=== PATIENT | female | born 1970 | race Caucasian/White ===

== ENCOUNTER 2017-04-15 16:06 | Emergency (ER) | payer MEDICARE, OTHER ==
[2017-04-15] MEDS ORDERED: NALOXONE HCL INJ 2 MG/2 ML DISP.SYRIN IV ONE (16:20)
[2017-04-15] MEDS ORDERED: NALOXONE HCL INJ 2 MG/2 ML DISP.SYRIN ONE (16:22)
--- NOTE | 2017-04-15 16:23 | ER Document Report ---
ED General - General Stated Complaint: ALTERED MENTAL STATUS/POSSIBLE SEPSIS Time Seen by Provider: 04/15/17 16:13 Mode of Arrival: Ambulatory Information source: Patient Notes: 46 yr old female presents with hx of extensive narcotic use, cva with family concern for confusion. TRAVEL OUTSIDE OF THE [place] IN LAST 30 DAYS: No - HPI Onset: Other Onset/Duration: Intermittent Quality of pain: No pain Severity: Mild Pain Level: Denies Associated symptoms: Leg swelling, Weakness Exacerbated by: Denies Relieved by: Denies Similar symptoms previously: Yes Recently seen / treated by doctor: Yes - Related Data Allergies/Adverse Reactions: Penicillins Allergy (Verified 04/10/16 11:22) Past Medical History - Social History Smoking Status: Current Every Day Smoker Cigarette use (# per day): Yes Chew tobacco use (# tins/day): No Smoking Education Provided: No Family History: Reviewed & Not Pertinent Neurological Medical History: Reports: Hx Cerebrovascular Accident Endocrine Medical History: Reports: Hx Diabetes Mellitus Type 2 GI Medical History: Reports: Hx Gastroesophageal Reflux Disease, Hx Ulcer, Hx Endoscopy Psychiatric Medical History: Reports: Hx Anxiety, Hx Bipolar Disorder, Hx Depression, Hx Schizophrenia Past Surgical History: Reports: Hx Abdominal Surgery - gastric bypass, reversal , Hx Cholecystectomy, Hx Gastric Bypass Surgery, Hx Hysterectomy, Hx Orthopedic Surgery - LLE, left jaw - Immunizations Immunizations up to date: Yes Hx Diphtheria, Pertussis, Tetanus Vaccination: Yes Review of Systems - Review of Systems Notes: REVIEW OF SYSTEMS: CONSTITUTIONAL : Denies fever, chills, or sweats. Denies recent illness. EENT: Right facial edema CARDIOVASCULAR: Denies chest pain. Denies palpitations or racing or irregular heart beat. Denies ankle edema. RESPIRATORY: Denies cough, cold, or chest congestion. Denies shortness of breath, difficulty breathing, or wheezing. GASTROINTESTINAL: Denies abdominal pain or distention. Denies nausea, vomiting , or diarrhea. Denies blood in vomitus, stools, or per rectum. Denies black, tarry stools. Denies constipation. GENITOURINARY: Denies difficulty urinating, painful urination, burning, frequency, blood in urine, or discharge. FEMALE GENITOURINARY: Denies vaginal bleeding, heavy or abnormal periods, irregular periods. Denies vaginal discharge or odor. MUSCULOSKELETAL: Admits to edema of the left foot SKIN: Denies rash, lesions or sores. HEMATOLOGIC : Denies easy bruising or bleeding. LYMPHATIC: Denies swollen, enlarged glands. NEUROLOGICAL: drowsiness PSYCHIATRIC: Denies anxiety or stress. Denies depression, suicidal ideation, or homicidal ideation. ALL OTHER SYSTEMS REVIEWED AND NEGATIVE. Dictation was performed using [employer] voice recognition software PHYSICAL EXAMINATION: GENERAL: Well-appearing, well-nourished and in no acute distress. HEAD: Right facial edema EYES: Pupils equal round and reactive to light, extraocular movements intact, conjunctiva are normal. ENT: Nares patent, oropharynx clear without exudates. Moist mucous membranes. NECK: Normal range of motion, supple without lymphadenopathy LUNGS: Breath sounds clear to auscultation bilaterally and equal. No wheezes rales or rhonchi. HEART: Regular rate and rhythm without murmurs ABDOMEN: Soft, nontender, nondistended abdomen. No guarding, no rebound. No masses appreciated. Female : deferred Musculoskeletal: Normal range of motion, no pitting or edema. No cyanosis. NEUROLOGICAL: Initial GCS of 11 Narcan GCS of 15 PSYCH: Normal mood, normal affect. SKIN: Warm, Dry, normal turgor, no rashes or lesions noted. Physical Exam - Vital signs Vitals: Resp BP Pulse Ox 19 105/70 98 04/15/17 16:21 04/15/17 16:21 04/15/17 16:21 Course - Re-evaluation Re-evalutation: 04/15/17 18:26 Patient immediately alert and oriented after being given 2 mg of Narcan, lab work pending CT noted no acute abnormality 04/15/17 20:49 pt has been alert oriented throughout, doppler pending., hypokaelmia noted, pt given oral potassium 04/15/17 22:31 Doppler was negative patient will be discharged home with potassium supplementation and I have instructed that they speak with her physician regarding the narcotic use After performing a Medical Screening Examination, I estimate there is LOW risk for INTRACRANIAL HEMORRHAGE, ISCHEMIC CVA, MALIGNANT DYSRHYTHMIA, ACUTE CORONARY SYNDROME, MENINGITIS, PULMONARY EMBOLISM, or SEPSIS thus I consider the discharge disposition reasonable. I have reevaluated this patient multiple times and no significant life threatening changes are noted. The patient and I have discussed the diagnosis and risks, and we agree with discharging home with close follow-up with the understanding that symptoms and presentations can change. We also discussed returning to the Emergency Department immediately if new or worsening symptoms occur. We have discussed the symptoms which are most concerning (e.g., changing or worsening pain, weakness, vomiting, fever) that necessitate immediate return. - Vital Signs Vital signs: Temp Pulse Resp BP Pulse Ox 98.9 F 83 14 108/72 99 04/15/17 18:00 04/15/17 18:00 04/15/17 21:01 04/15/17 21:00 04/15/17 19:33 - Laboratory Result Diagrams: 04/15/17 18:50 04/15/17 18:50 Laboratory results interpreted by me: 04/15/17 04/15/17 04/15/17 18:50 18:50 18:50 WBC 12.4 H Hgb 11.4 L Hct 35.7 L RDW 23.0 H Abs Neuts (Manual) 9.8 H PT 16.6 H VBG pH VBG pCO2 VBG HCO3 Sodium 147.5 H Potassium 2.9 L* Chloride 118 H Carbon Dioxide 18 L Glucose 65 L Calcium 7.6 L AST 154 H ALT 151 H Alkaline Phosphatase 176 H NT-Pro-B Natriuret Pep Total Protein 4.3 L Albumin 2.0 L Urine Ketones Urine Urobilinogen 04/15/17 04/15/17 04/15/17 18:50 18:50 19:10 WBC Hgb Hct RDW Abs Neuts (Manual) PT VBG pH 7.44 H VBG pCO2 29.9 L VBG HCO3 19.7 L Sodium Potassium Chloride Carbon Dioxide Glucose Calcium AST ALT Alkaline Phosphatase NT-Pro-B Natriuret Pep 176 H Total Protein Albumin Urine Ketones TRACE H Urine Urobilinogen 2.0 H - Diagnostic Test Radiology reviewed: Image reviewed, Reports reviewed - Doppler was negative Discharge - Discharge Clinical Impression: Hypokalemia, Narcotic drug use Edema Qualifiers: Edema type: unspecified Qualified Code(s): R60.9 - Edema, unspecified Condition: Stable Disposition: HOME, SELF-CARE Instructions: Edema, Peripheral ([facility]) Prescriptions: Potassium Bicarbonate/Cit AC [Potassium 25 Meq Tab Eff] 50 meq PO DAILY #5 tablet.eff Referrals: HILTON MORSE PA-C [Primary Care Provider] - Follow up tomorrow
--- NOTE | 2017-04-15 16:41 | RADIOLOGY REPORT (SQ) ---
EXAM DESCRIPTION: CT HEAD WITHOUT COMPLETED DATE/TIME: 04/15/2017 4:32 pm REASON FOR STUDY: altered COMPARISON: None. TECHNIQUE: Axial images acquired through the brain without intravenous contrast. Images reviewed wi th bone, brain and subdural windows. Images stored on PACS. All CT scanners at this facility use dose modulation, iterative reconstruction, and/or weight based d osing when appropriate to reduce radiation dose to as low as reasonably achievable (ALARA). [facility]: Dose Right [facility]: CareDose [facility]: Dose Right [facility]: Teradose 4D [facility]: [employer] RADIATION DOSE: 64.61 mGy. LIMITATIONS: None. FINDINGS: VENTRICLES: Normal size and contour. CEREBRUM: No masses. No hemorrhage. No midline shift. Normal keen/white matter differentiation. N o evidence for acute infarction. CEREBELLUM: No masses. No hemorrhage. No alteration of density. No evidence for acute infarction. EXTRAAXIAL SPACES: No fluid collections. No masses. ORBITS AND GLOBE: No intra- or extraconal masses. Normal contour of globe without masses. CALVARIUM: No fracture. PARANASAL SINUSES: There is minimal ethmoid air cell disease on the left. SOFT TISSUES: No mass or hematoma. OTHER: No other significant finding. IMPRESSION: NORMAL BRAIN CT WITHOUT CONTRAST. TECHNICAL DOCUMENTATION: JOB ID: [id number] Quality ID # [id number]: Final reports with documentation of one or more dose reduction techniques (e.g., Au tomated exposure control, adjustment of the mA and/or kV according to patient size, use of iterative reconstruction technique) 2010 [employer]- All Rights Reserved
--- NOTE | 2017-04-15 17:45 | RADIOLOGY REPORT (SQ) ---
EXAM DESCRIPTION: CHEST PA/LAT COMPLETED DATE/TIME: 04/15/2017 5:21 pm REASON FOR STUDY: altered, edema COMPARISON: 04/10/2016 EXAM PARAMETERS: NUMBER OF VIEWS: two views TECHNIQUE: Digital Frontal and Lateral radiographic views of the chest acquired. RADIATION DOSE: NA LIMITATIONS: none FINDINGS: LUNGS AND PLEURA: No opacities, masses or pneumothorax. No pleural effusion. MEDIASTINUM AND HILAR STRUCTURES: No masses or contour abnormalities. HEART AND VASCULAR STRUCTURES: Heart normal size. No evidence for failure. BONES: No acute findings. HARDWARE: None in the chest. OTHER: No other significant finding. IMPRESSION: NO SIGNIFICANT RADIOGRAPHIC FINDING IN THE CHEST. TECHNICAL DOCUMENTATION: JOB ID: [id number] [employer]- All Rights Reserved
[2017-04-15 19:09] LABS: VENOUS BLOOD BASE EXCESS -3.7 mmol/L; VENOUS BLOOD HCO3 19.7 mmol/L (20-32); VENOUS BLOOD PCO2 29.9 mmHg (35-63); VENOUS BLOOD PH 7.44 (7.30-7.42)
[2017-04-15 19:17] LABS: HEMATOCRIT 35.7 % (36.0-47.0); HEMOGLOBIN 11.4 g/dL (12.0-15.5); HGB HCT DIFFERENCE -1.5; MEAN CORPUSCULAR HEMOGLOBIN 28.4 pg (27.0-33.4); MEAN CORPUSCULAR VOLUME 89 fl (80-97); RED BLOOD COUNT 4.03 10^6/uL (3.72-5.28); WHITE BLOOD COUNT 12.4 10^3/uL (4.0-10.5)
[2017-04-15 19:20] LABS: PROTHROMBIN TIME 16.6 SEC (11.4-15.4)
[2017-04-15 19:31] LABS: ALANINE AMINOTRANSFERASE 151 U/L (9-52); ALKALINE PHOSPHATASE 176 U/L (38-126); ANION GAP 12 (5-19); ASPARTATE AMINO TRANSFERASE 154 U/L (14-36); BILIRUBIN,DIRECT 0.4 mg/dL (0.0-0.4); BILIRUBIN,TOTAL 0.4 mg/dL (0.2-1.3); BLOOD UREA NITROGEN 10 mg/dL (7-20); CALCIUM 7.6 mg/dL (8.4-10.2); CARBON DIOXIDE 18 mmol/L (22-30); CHLORIDE 118 mmol/L (98-107); CREATININE RESULT 0.66 mg/dL (0.52-1.25); GLUCOSE 65 mg/dL (75-110); SODIUM 147.5 mmol/L (137-145); TOTAL PROTEIN 4.3 g/dL (6.3-8.2)
[2017-04-15 19:41] LABS: BAND NEUTROPHILS % (MANUAL) 4 % (3-5); BASOPHILS % (MANUAL) 0 % (0-2); EOSINOPHILS % (MANUAL) 0 % (0-6); LYMPHOCYTES % (MANUAL) 15 % (13-45); TOTAL CELLS COUNTED 100; TOXIC GRANULATION SLIGHT
[2017-04-15 19:44] LABS: ANISOCYTOSIS 3+; BURR CELLS 1+; OVALOCYTES SLIGHT; POIKILOCYTOSIS 1+; POLYCHROMASIA SLIGHT; TARGET CELLS 1+; TEAR DROP CELLS SLIGHT
[2017-04-15 19:46] LABS: PLATELET CLUMPS PRESENT
[2017-04-15 19:57] LABS: POTASSIUM 2.9 mmol/L (3.6-5.0)
[2017-04-15] MEDS ORDERED: POTASSIUM CHLORIDE 10 MEQ TABLET.SA PO ONE (19:59)
[2017-04-15 20:31] LABS: APPEARANCE,URINE CLEAR; BILIRUBIN,URINE NEGATIVE (NEGATIVE); GLUCOSE, URINE NEGATIVE (NEGATIVE); KETONES,URINE TRACE mg/dL (NEGATIVE); LEUKOCYTE ESTERASE,URINE NEGATIVE (NEGATIVE); NITRITE,URINE NEGATIVE (NEGATIVE); PROTEIN,URINE NEGATIVE (NEGATIVE); URINE SPECIFIC GRAVITY 1.021
--- NOTE | 2017-04-15 21:14 | EKG REPORT ---
SEVERITY:- BORDERLINE ECG - SINUS RHYTHM BORDERLINE LEFT AXIS DEVIATION LOW VOLTAGE THROUGHOUT BORDERLINE T ABNORMALITIES, ANT-LAT LEADS : Confirmed by: Benitez Gabriel 15-Apr-2017 21:14:08
[2017-04-15 22:56] VITALS: BP 107/71
--- NOTE | 2017-04-15 22:57 | RADIOLOGY REPORT (SQ) ---
EXAM DESCRIPTION: VENOUS UNILATERAL LOWER COMPLETED DATE/TIME: 04/15/2017 10:44 pm REASON FOR STUDY: left leg edema COMPARISON: None. TECHNIQUE: Dynamic and static keen scale and color images acquired of the left leg venous system. Se lected spectral images acquired with additional compression and augmentation maneuvers. The contralat eral common femoral vein and saphenofemoral junction were also imaged. Images stored on PACS. LIMITATIONS: None. FINDINGS: COMMON FEMORAL: Normal phasicity, compression and augmentation. No visualized echogenic ma terial on keen scale. No defects on color images. FEMORAL: Normal compression and augmentation. No visualized echogenic material on keen scale. No defe cts on color images. POPLITEAL: Normal compression, augmentation. No visualized echogenic material on keen scale. No defec ts on color images. CALF VESSELS: Normal compression, augmentation. No visualized echogenic material on keen scale. No de fects on color images. GSV and SSV: Normal compression, augmentation. No visualized echogenic material on keen scale. No def ects on color images. ANY DEEP VENOUS INSUFFICIENCY: Not evaluated. ANY EVIDENCE OF POPLITEAL CYST: No. OTHER: No other significant finding. CONTRALATERAL COMMON FEMORAL VEIN AND SAPHENOFEMORAL JUNCTION: Normal phasicity, compression and augmentation. No visualized echogenic material on keen scale. No de fects on color images. IMPRESSION: NO EVIDENCE DVT OR SVT IN THE LEFT LEG. TECHNICAL DOCUMENTATION: JOB ID: [id number] [employer]- All Rights Reserved
== END 2017-04-15 22:55 | disposition home or self-care (01) ==
LOC: ER 16:06
DX: F11.90 Opioid use, unspecified, uncomplicated (principal); R53.1 Weakness; E11.9 Type 2 diabetes mellitus without complications; R60.0 Localized edema; E87.6 Hypokalemia; F17.210 Nicotine dependence, cigarettes, uncomplicated; Z86.73 Personal history of transient ischemic attack (TIA), and cerebral infarction without residual deficits; Z98.84 Bariatric surgery status
CPT/HCPCS: 93005; 99285; 36415; 87040; 87086; 85025; 85610; 87088; 80053; 81001; 87186; 82803; 83605; 83880; 93971; 71020; 70450; 93010; A9270

== ENCOUNTER → 2017-04-24 | Outpatient (CLI) | payer MEDICARE, MEDICAID ==
--- NOTE | 2017-04-24 08:48 | WOMENS IMAGING REPORT ---
EXAM DESCRIPTION: U/S ABDOMEN LIMITED COMPLETED DATE/TIME: 04/24/2017 8:34 am REASON FOR STUDY: RUQ;R79.89 R79.89 OTHER SPECIFIED ABNORMAL FINDINGS OF BLOOD CHEMISTRY COMPARISON: None. TECHNIQUE: Dynamic and static grayscale images acquired of the abdomen and recorded on PACS. Additio nal selected color Doppler and spectral images recorded. LIMITATIONS: None. FINDINGS: PANCREAS: Not visualized due to bowel gas. LIVER: The liver demonstrates increased echogenicity and coarsened echotexture consistent with fatty deposition. No focal liver lesions identified. No hepatomegaly LIVER VASCULATURE: Normal directional flow of the main portal vein and hepatic veins. GALLBLADDER: Surgically absent. ULTRASOUND-DETECTED GILL'S SIGN: Negative. INTRAHEPATIC DUCTS AND COMMON DUCT: The intrahepatic ducts normal caliber. No filling defects. Commo n bile duct measures 9 mm and is ectatic likely related to prior cholecystectomy. INFERIOR VENA CAVA: Not visualized due to bowel gas AORTA: Not visualized due to bowel gas RIGHT KIDNEY: Normal size. Normal echogenicity. No solid or suspicious masses. No hydronephrosis. No calcifications. PERITONEAL AND RIGHT PLEURAL SPACE: No ascites or effusions. OTHER: No other significant findings. IMPRESSION: 1. Hepatic steatosis. No focal liver lesions. 2. Prior cholecystectomy. There is slight ectasia of the common bile duct less likely the related t o the surgery. No intrahepatic biliary dilatation. No evidence choledocholithiasis. 3. Otherwise unremarkable abdominal ultrasound. The pancreas, aorta, and IVC are not visualized on this study due to bowel gas. TECHNICAL DOCUMENTATION: JOB ID: [id number] [employer]- All Rights Reserved
== END ==
LOC: WI 07:51
PROVIDERS: ATTEND Physician Assistant
DX: R79.89 Other specified abnormal findings of blood chemistry (principal); K76.0 Fatty (change of) liver, not elsewhere classified
CPT/HCPCS: 76705

== ENCOUNTER 2017-05-08 07:20 | Inpatient (IN) | payer MEDICARE, MEDICAID ==
[2017-05-08] MEDS ORDERED: ASPIRIN 81 MG TABLET, CHEWABLE PO ONE (07:48)
--- NOTE | 2017-05-08 07:54 | ER Document Report ---
ED Dizziness/Weakness - General Chief Complaint: General Weakness Stated Complaint: WEAKNESS Time Seen by Provider: 05/08/17 07:47 Mode of Arrival: Ambulatory Information source: Patient Notes: Is a 47-year-old female with a history of a stroke, diabetes, hypertension, anxiety, gastric bypass who presents to the ER today for generalized weakness over the past 2 weeks, worsening over the past day. Patient had a cough that has been productive for the past 2-3 days. She also had some worsening swelling in her lower extremities. She and family deny history of congestive heart failure. 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 She has practically been bedbound for the past 2 days per family. She tried to get up this morning and fell, denies hitting her head or loss of consciousness, denies any pain anywhere. She does have some mild right sided deficits from her stroke in 2008. She denies any new unilateral deficits. She denies any nausea , vomiting, diarrhea, fever, chills, dysuria, abdominal pain or other symptoms. Family also states that she has been confused over the past 2 days, and will start "talking out of her head." TRAVEL OUTSIDE OF THE [place] IN LAST 30 DAYS: No - Related Data Allergies/Adverse Reactions: Penicillins Allergy (Verified 04/10/16 11:22) Past Medical History - General Information source: Patient, Relative - Social History Smoking Status: Unknown if Ever Smoked Family History: Reviewed & Not Pertinent Neurological Medical History: Reports: Hx Cerebrovascular Accident Endocrine Medical History: Reports: Hx Diabetes Mellitus Type 2 Renal/ Medical History: Denies: Hx Peritoneal Dialysis GI Medical History: Reports: Hx Gastroesophageal Reflux Disease, Hx Ulcer, Hx Endoscopy Psychiatric Medical History: Reports: Hx Anxiety, Hx Bipolar Disorder, Hx Depression, Hx Schizophrenia Past Surgical History: Reports: Hx Abdominal Surgery - gastric bypass, reversal , Hx Cholecystectomy, Hx Gastric Bypass Surgery, Hx Hysterectomy, Hx Orthopedic Surgery - LLE, left jaw - Immunizations Immunizations up to date: Yes Hx Diphtheria, Pertussis, Tetanus Vaccination: Yes Review of Systems - Review of Systems Constitutional: See HPI EENT: No symptoms reported Cardiovascular: No symptoms reported Respiratory: No symptoms reported Gastrointestinal: No symptoms reported Genitourinary: No symptoms reported Female Genitourinary: No symptoms reported Musculoskeletal: No symptoms reported Skin: No symptoms reported Hematologic/Lymphatic: No symptoms reported Neurological/Psychological: See HPI Physical Exam - Vital signs Vitals: Temp Pulse Resp BP 99.3 F 111 H 18 112/77 05/08/17 07:21 05/08/17 07:21 05/08/17 07:21 05/08/17 07:21 - Notes Notes: PHYSICAL EXAMINATION: GENERAL: Weak, malnourished, appears much older than stated age, in no acute distress. HEAD: Atraumatic, normocephalic. EYES: Pupils equal round and reactive to light, extraocular movements intact, sclera anicteric, conjunctiva are normal. NECK: Normal range of motion, supple without lymphadenopathy LUNGS: CTAB and equal. No wheezes rales or rhonchi. HEART: Regular rate and rhythm without murmurs ABDOMEN: Nontender, no guarding, no rebound EXTREMITIES: Decreased rfid manager strength bilaterally but equal, decreased strength bilaterally NEUROLOGICAL: Cranial nerves grossly intact. Generalized weakness but normal sensory exam Kernig and Brudzinski's signs negative PSYCH: flat affect SKIN: Warm, Dry, normal turgor, 2+ pitting edema bilateral lower extremities, tender Course - Re-evaluation Re-evalutation: 05/08/17 11:59 White blood cell count is normal, patient has a low protein, albumin, calcium, but corrected for albumin, calcium is actually normal. EKG reveals a normal sinus rhythm at a rate of 97 bpm. Patient was very anxious when I told her that I needed to do a CT of her head so I gave her 1 of her normal doses of Ativan which calmed her down. Patient does look much older than 47 years old and generally weak, unsure if this is malnourishment from gastric bypass and the fact that she is not eating per her family or some other pathology. It does not seem like it is any type of infection with a normal white count afebrile, patient is not septic, CT of the head reveals no acute abnormality, chest x-ray reveals no acute abnormality, patient does have an elevated BNP at 335. I did speak with patient's primary care provider, Hilton flores who states that she usually is independent and that being bedbound is absolutely not like this patient. She was concerned that this is malnutrition or another stroke. I have low suspicion for another stroke as patient does not have any new unilateral symptoms, more generalized. Dr. Nichols, hospitalist agreed to admit patient for observation at this time. 05/08/17 12:02 05/08/17 12:08 - Vital Signs Vital signs: Temp Pulse Resp BP Pulse Ox 99.3 F 111 H 10 L 103/76 05/08/17 07:21 05/08/17 07:21 05/08/17 09:01 05/08/17 09:01 - Laboratory Result Diagrams: 05/08/17 10:20 05/08/17 08:52 Laboratory results interpreted by me: 05/08/17 05/08/17 05/08/17 08:52 08:52 09:50 RBC Hgb Hct MCV MCHC RDW Seg Neuts % (Manual) Lymphocytes % (Manual) Abs Neuts (Manual) Chloride 114 H Calcium 7.6 L Direct Bilirubin 0.7 H ALT 53 H Alkaline Phosphatase 279 H NT-Pro-B Natriuret Pep 335 H Total Protein 4.9 L Albumin 1.9 L Urine Urobilinogen 4.0 H Ur Leukocyte Esterase TRACE H 05/08/17 10:20 RBC 3.37 L Hgb 10.7 L Hct 33.9 L MCV 101 H D MCHC 31.4 L RDW 16.6 H Seg Neuts % (Manual) 86 H Lymphocytes % (Manual) 8 L Abs Neuts (Manual) 8.9 H Chloride Calcium Direct Bilirubin ALT Alkaline Phosphatase NT-Pro-B Natriuret Pep Total Protein Albumin Urine Urobilinogen Ur Leukocyte Esterase Discharge - Discharge Clinical Impression: Generalized weakness Altered mental status Qualifiers: Altered mental status type: transient alteration of awareness Qualified Code(s) : R40.4 - Transient alteration of awareness Condition: Stable Disposition: ADMITTED OBSERVATION Admitting Provider: Hospitalist Unit Admitted: Telemetry Referrals: HILTON FLORES PA-C [Primary Care Provider] - Follow up as needed
--- NOTE | 2017-05-08 08:35 | RADIOLOGY REPORT (SQ) ---
EXAM DESCRIPTION: CHEST SINGLE VIEW COMPLETED DATE/TIME: 05/08/2017 8:08 am REASON FOR STUDY: weakness COMPARISON: 04/15/2017 EXAM PARAMETERS: NUMBER OF VIEWS: One view. TECHNIQUE: Single frontal radiographic view of the chest acquired. RADIATION DOSE: NA LIMITATIONS: None. FINDINGS: LUNGS AND PLEURA: No opacities, masses or pneumothorax. No pleural effusion. MEDIASTINUM AND HILAR STRUCTURES: No masses. Contour normal. HEART AND VASCULAR STRUCTURES: Heart normal in size. Normal vasculature. BONES: No acute findings. HARDWARE: None in the chest. OTHER: No other significant finding. IMPRESSION: NO ACUTE RADIOGRAPHIC FINDING IN THE CHEST. TECHNICAL DOCUMENTATION: JOB ID: [id number]
[2017-05-08 09:36] LABS: ALANINE AMINOTRANSFERASE 53 U/L (9-52); ALBUMIN 1.9 g/dL (3.5-5.0); ALKALINE PHOSPHATASE 279 U/L (38-126); ANION GAP 7 (5-19); ASPARTATE AMINO TRANSFERASE 34 U/L (14-36); BILIRUBIN,DIRECT 0.7 mg/dL (0.0-0.4); BILIRUBIN,TOTAL 1.2 mg/dL (0.2-1.3); BLOOD UREA NITROGEN 13 mg/dL (7-20); CALCIUM 7.6 mg/dL (8.4-10.2); CARBON DIOXIDE 22 mmol/L (22-30); CHLORIDE 114 mmol/L (98-107); CREATINE KINASE 30 U/L (30-135); CREATININE RESULT 0.68 mg/dL (0.52-1.25); GLUCOSE 93 mg/dL (75-110); POTASSIUM 3.6 mmol/L (3.6-5.0); TOTAL PROTEIN 4.9 g/dL (6.3-8.2)
[2017-05-08 09:48] LABS: CREATINE KINASE MB 0.29 ng/mL (<4.55); TROPONIN I < 0.012 ng/mL
[2017-05-08] MEDS ORDERED: LORAZEPAM 1 MG TABLET PO ONE (09:56)
[2017-05-08 10:32] LABS: APPEARANCE,URINE CLEAR; BILIRUBIN,URINE NEGATIVE (NEGATIVE); GLUCOSE, URINE NEGATIVE (NEGATIVE); KETONES,URINE NEGATIVE (NEGATIVE); LEUKOCYTE ESTERASE,URINE TRACE (NEGATIVE); NITRITE,URINE NEGATIVE (NEGATIVE); PROTEIN,URINE NEGATIVE (NEGATIVE); URINE SPECIFIC GRAVITY 1.015
[2017-05-08 10:46] LABS: HEMATOCRIT 33.9 % (36.0-47.0); HEMOGLOBIN 10.7 g/dL (12.0-15.5); HGB HCT DIFFERENCE -1.8; MEAN CORPUSCULAR HEMOGLOBIN 31.6 pg (27.0-33.4); MEAN CORPUSCULAR HGB CONC 31.4 g/dL (32.0-36.0); RED BLOOD COUNT 3.37 10^6/uL (3.72-5.28); RED CELL DISTRIBUTION WIDTH 16.6 % (11.5-14.0); WHITE BLOOD COUNT 10.3 10^3/uL (4.0-10.5)
[2017-05-08 10:47] LABS: URINE BARBITURATES SCREEN NEGATIVE; URINE METHADONE SCREEN NEGATIVE; URINE OPIATES LOW UNCONFIRMED POSITIVE; URINE PHENCYCLIDINE SCREEN NEGATIVE
[2017-05-08 11:02] LABS: MEAN CORPUSCULAR VOLUME 101 fl (80-97)
--- NOTE | 2017-05-08 11:02 | RADIOLOGY REPORT (SQ) ---
EXAM DESCRIPTION: CT HEAD WITHOUT COMPLETED DATE/TIME: 05/08/2017 10:48 am REASON FOR STUDY: new significant weakness past 2 weeks , hx cva, COMPARISON: None. TECHNIQUE: Axial images acquired through the brain without intravenous contrast. Images reviewed wi th bone, brain and subdural windows. Images stored on PACS. All CT scanners at this facility use dose modulation, iterative reconstruction, and/or weight based d osing when appropriate to reduce radiation dose to as low as reasonably achievable (ALARA). [facility]: Dose Right [facility]: CareDose [facility]: Dose Right [facility]: Teradose 4D [facility]: [employer] RADIATION DOSE: Up-to-date CT equipment and radiation dose reduction techniques were employed. CTDIv ol: 64.6 mGy. DLP: 1034 mGy-cm. mGy. LIMITATIONS: None. FINDINGS: VENTRICLES: Normal size and contour. CEREBRUM: No masses. No hemorrhage. No midline shift. Normal keen/white matter differentiation. N o evidence for acute infarction. CEREBELLUM: No masses. No hemorrhage. No alteration of density. No evidence for acute infarction. EXTRAAXIAL SPACES: No fluid collections. No masses. ORBITS AND GLOBE: No intra- or extraconal masses. Normal contour of globe without masses. CALVARIUM: No fracture. PARANASAL SINUSES: Air-fluid levels are present in both maxillary sinuses. Many of the ethmoid air c ells are opacified. SOFT TISSUES: No mass or hematoma. OTHER: No other significant finding. IMPRESSION: Maxillary and ethmoid sinus disease with no acute intracranial pathology. TECHNICAL DOCUMENTATION: JOB ID: [id number] Quality ID # [id number]: Final reports with documentation of one or more dose reduction techniques (e.g., Au tomated exposure control, adjustment of the mA and/or kV according to patient size, use of iterative reconstruction technique) 2010 [employer]- All Rights Reserved
[2017-05-08 11:07] LABS: BASOPHILS % (MANUAL) 0 % (0-2); EOSINOPHILS % (MANUAL) 0 % (0-6); LYMPHOCYTES % (MANUAL) 8 % (13-45); PLATELET CLUMPS PRESENT; TOTAL CELLS COUNTED 100; TOXIC GRANULATION 1+
[2017-05-08 11:08] LABS: ANISOCYTOSIS 2+; HYPOCHROMASIA 1+; POLYCHROMASIA SLIGHT
[2017-05-08] MEDS ORDERED: NORMAL SALINE 1000 ML 1,000 ML IV ONE (11:31)
[2017-05-08 11:44] LABS: PROTHROMBIN TIME 12.2 SEC (11.4-15.4)
[2017-05-08 11:45] LABS: PARTIAL THROMBOPLASTIN TIME 32.8 SEC (23.5-35.8)
[2017-05-08] MEDS ORDERED: ACETAMINOPHEN 325 MG TABLET PO PRN (15:11)
[2017-05-08] MEDS ORDERED: ONDANSETRON HCL INJ/PF 4 MG/2 ML SDV IV PRN (15:11)
--- NOTE | 2017-05-08 15:38 | PDOC H&P ---
History of Present Illness Admission Date/PCP: 05/08/17 11:44 HILTON MORSE PA-C Patient complains of: Generalized weakness History of Present Illness: HILTON MI is a 47 year old female, with prior history of stroke with residual right-sided weakness, was brought to the emergency room because of generalized weakness. The patient has been noted to have progressive weakness for the past month or so. The patient has poor appetite. Patient was seen by her primary care physician on several occasions. There is no reported chills or fever, diarrhea, dysuria urgency or frequency, vaginal discharge. Patient started to feel short of breath on exertion with associated dizziness on standing up recently. Patient for the past 4 days was also noted to be having some coughing. He started to develop pleuritic pain on the right from coughing. She feels cold all the time. She was likewise noted to have increasing lower extremity edema. No paroxysmal nocturnal dyspnea nor any orthopnea. Likewise there is no chest pain. Patient has a history of stroke in the past with residual right-sided weakness. Patient is able to eat but just do not have appetite. She has intermittent nausea and occasional vomiting after eating. She takes narcotics for pain. Past Medical History Past Medical History: Medication reconciliation pending verification from the patient's pharmacist Cardiac Medical History: Reports: Hypertension Neurological Medical History: Reports: Ischemic CVA Endocrine Medical History: Reports: Diabetes Mellitus Type 2 GI Medical History: Reports: Gastroesophageal Reflux Disease Psychiatric Medical History: Reports: Bipolar Disorder, Depression, General Anxiety Disorder Hematology: Reports: Anemia Past Surgical History Past Surgical History: Reports: Cholecystectomy, Gastric Bypass Surgery, Hysterectomy, Orthopedic Surgery - LLE, left jaw Social History Information Source: Relative Smoking Status: Never Smoker Frequency of Alcohol Use: None Hx Recreational Drug Use: No Drugs: None Hx Prescription Drug Abuse: No - Advance Directive Resuscitation Status: Full Code Family History Family History: DM, Hypertension Parental Family History Reviewed: Yes Children Family History Reviewed: Yes Sibling(s) Family History Reviewed.: Yes Medication/Allergy Allergies/Adverse Reactions: Penicillins Allergy (Verified 04/10/16 11:22) Review of Systems Constitutional: PRESENT: chills, weight loss - unquantified. ABSENT: fever(s), headache(s), night sweats, weight gain Eyes: ABSENT: visual disturbances Ears: ABSENT: hearing changes Nose, Mouth, and Throat: ABSENT: mouth pain, sore throat Cardiovascular: PRESENT: dyspnea on exertion, edema. ABSENT: chest pain, orthropnea, palpitations Respiratory: PRESENT: cough. ABSENT: dyspnea, hemoptysis, sputum Gastrointestinal: PRESENT: constipation, nausea, vomiting. ABSENT: abdominal pain, diarrhea, hematemesis, hematochezia, melena Genitourinary: ABSENT: difficulty urinating, dysuria, hematuria Musculoskeletal: ABSENT: joint swelling Integumentary: ABSENT: pruritus, rash, wounds Neurological: PRESENT: dizziness. ABSENT: abnormal gait, abnormal speech, confusion, focal weakness, syncope Psychiatric: ABSENT: anxiety, depression, homidical ideation, suicidal ideation Endocrine: ABSENT: cold intolerance, heat intolerance, polydipsia, polyuria Hematologic/Lymphatic: ABSENT: easy bleeding, easy bruising Physical Exam Vital Signs: Temp Pulse Resp BP Pulse Ox 99.0 F 92 18 100/66 98 05/08/17 14:30 05/08/17 14:30 05/08/17 14:30 05/08/17 14:30 05/08/17 14:30 Intake & Output 05/07/17 05/08/17 05/09/17 06:59 06:59 06:59 Weight 54.6 kg General appearance: PRESENT: no acute distress, cooperative Head exam: PRESENT: atraumatic, normocephalic Eye exam: PRESENT: conjunctiva pale, EOMI, PERRLA. ABSENT: scleral icterus Ear exam: PRESENT: normal external ear exam. ABSENT: drainage Mouth exam: PRESENT: dry mucosa, neck supple, tongue midline Throat exam: ABSENT: post pharyngeal erythema, tonsillar erythema Neck exam: ABSENT: carotid bruit, JVD, lymphadenopathy, meningismus, tenderness , thyromegaly Respiratory exam: PRESENT: clear to auscultation rona. ABSENT: rales, rhonchi, wheezes Cardiovascular exam: PRESENT: RRR. ABSENT: diastolic murmur, rubs, systolic murmur Pulses: PRESENT: normal dorsalis pedis pul Vascular exam: PRESENT: normal capillary refill GI/Abdominal exam: PRESENT: normal bowel sounds, soft. ABSENT: distended, guarding, mass, organolmegaly, rebound, tenderness Rectal exam: PRESENT: deferred Extremities exam: PRESENT: +1 edema - Bilateral. ABSENT: calf tenderness, clubbing Neurological exam: PRESENT: alert, awake, oriented to situation, other - Shallow left nasolabial fold, tongue is midline, uvula is midline, extraocular muscle movements are intact.. ABSENT: motor sensory deficit Psychiatric exam: PRESENT: appropriate affect, normal mood. ABSENT: homicidal ideation, suicidal ideation Skin exam: PRESENT: dry, intact, warm. ABSENT: cyanosis, rash Results Impressions: Chest X-Ray 05/08/17 07:48 IMPRESSION: NO ACUTE RADIOGRAPHIC FINDING IN THE CHEST. Head CT 05/08/17 09:26 IMPRESSION: Maxillary and ethmoid sinus disease with no acute intracranial pathology. Assessment & Plan - Diagnosis (1) Altered mental status Qualifiers: Altered mental status type: transient alteration of awareness Qualified Code(s): R40.4 - Transient alteration of awareness Is this a current diagnosis for this admission?: Yes (2) Generalized weakness Is this a current diagnosis for this admission?: Yes (3) Hypotension (arterial) Qualifiers: Hypotension type: unspecified hypotension type Qualified Code(s): I95.9 - Hypotension, unspecified Is this a current diagnosis for this admission?: Yes (4) Acute sinusitis Qualifiers: Recurrence: not specified as recurrent Is this a current diagnosis for this admission?: Yes (5) Abnormal urinalysis Is this a current diagnosis for this admission?: Yes (6) Chronic anemia Is this a current diagnosis for this admission?: Yes (7) Essential hypertension Is this a current diagnosis for this admission?: Yes (8) GERD (gastroesophageal reflux disease) Qualifiers: Esophagitis presence: without esophagitis Qualified Code(s): K21.9 - Gastro-esophageal reflux disease without esophagitis Is this a current diagnosis for this admission?: Yes (9) Anxiety and depression Is this a current diagnosis for this admission?: Yes (10) Diabetes mellitus type 2 in obese Is this a current diagnosis for this admission?: Yes (11) History of stroke Is this a current diagnosis for this admission?: Yes - Time Time Spent: 50 to 70 Minutes - Plan Summary Plan Summary: The patient will be admitted to observation. We will hydrate the patient with normal saline and check lower extremity Doppler for edema. We will obtain MRI of the brain. We will begin diet. Check a KUB for impaction. We will obtain free T4 as well as TSH. We will culture the urine and empirically begin the patient on antibiotic with Levaquin. DVT prophylaxis with Lovenox will be placed. Further testing depends on the initial evaluations outlined above.
[2017-05-08] MEDS ORDERED: LORAZEPAM INJ 2 MG/1 ML VIAL IV PRN (16:45)
[2017-05-08] MEDS: NORMAL SALINE 1000 ML 1,000 ML IV PRN (17:29)
[2017-05-08] MEDS: LANSOPRAZOLE 30 MG TAB.RAP.DR PO SCH (17:29)
--- NOTE | 2017-05-08 18:51 | RADIOLOGY REPORT (SQ) ---
EXAM DESCRIPTION: MRI HEAD WITHOUT COMPLETED DATE/TIME: 05/08/2017 6:38 pm REASON FOR STUDY: confusion, weakness R60.9 EDEMA, UNSPECIFIED N30.00 ACUTE CYSTITIS WITHOUT HEMAT URIA COMPARISON: 08/18/2015. CT dated 05/08/2017 TECHNIQUE: Multiplanar imaging includes non-contrasted T1, T2, FLAIR, and diffusion with ADC map seq uences. Images stored on PACS. LIMITATIONS: None. FINDINGS: ANATOMY: No anomalies. Normal vascular flow voids. Pituitary fossa normal. CSF SPACES: Normal in size and contour. No hemorrhage. CEREBRUM: Sulci and gyri normal in size and contour. Normal white matter signal on FLAIR imaging. No evidence of hemorrhage, mass, or extraaxial fluid collection. POSTERIOR FOSSA: No signal alteration. No hemorrhage. No edema, masses or mass effect. Internal haroon tory canals, cerebello-pontine angles, mastoids normal. DIFFUSION IMAGING: Negative for acute or sub-acute infarction. ORBITS: No masses. Globes normal. PARANASAL SINUSES: Air-fluid levels noted in the ethmoid, sphenoid, and maxillary sinuses, similar t o prior CT. OTHER: No other significant finding. IMPRESSION: No acute intracranial abnormality identified. Air-fluid levels noted in the paranasal s inuses, similar to the CT suggestive of sinusitis. TECHNICAL DOCUMENTATION: JOB ID: [id number] [employer]- All Rights Reserved
--- NOTE | 2017-05-08 19:13 | RADIOLOGY REPORT (SQ) ---
EXAM DESCRIPTION: KUB/ABDOMEN (SINGLE VIEW) COMPLETED DATE/TIME: 05/08/2017 6:56 pm REASON FOR STUDY: fecal impaction, constipation R60.9 EDEMA, UNSPECIFIED N30.00 ACUTE CYSTITIS WIT HOUT HEMATURIA COMPARISON: 07/11/2015 NUMBER OF VIEWS: One view. TECHNIQUE: Supine radiographic image of the abdomen acquired. LIMITATIONS: None. FINDINGS: BOWEL GAS PATTERN: Normal bowel gas pattern. No dilated loops. CONSTIPATION: moderate CALCIFICATIONS: No suspicious calcifications. SOFT TISSUES: No gross mass or suggestion of organomegaly. HARDWARE: Multiple surgical clips. BONES: No acute fracture. No worrisome bone lesions. OTHER: No other significant finding. IMPRESSION: NO RADIOGRAPHIC EVIDENCE FOR ACUTE ABDOMINAL DISEASE. Moderate constipation. TECHNICAL DOCUMENTATION: JOB ID: [id number] [employer]- All Rights Reserved
[2017-05-08 20:49] LABS: FOLATE 12.7 ng/mL (>2.76)
--- NOTE | 2017-05-08 21:24 | EKG REPORT ---
SEVERITY:- BORDERLINE ECG - SINUS RHYTHM LOW VOLTAGE IN FRONTAL LEADS BORDERLINE R WAVE PROGRESSION, ANTERIOR LEADS BORDERLINE T ABNORMALITIES, ANT-LAT LEADS : Confirmed by: Benitez Gabriel 08-May-2017 21:23:42
[2017-05-09] MEDS: NORMAL SALINE 1000 ML 1,000 ML IV PRN ×2 (03:47→09:10)
[2017-05-09] MEDS: LANSOPRAZOLE 30 MG TAB.RAP.DR PO SCH ×2 (05:22→15:36)
[2017-05-09 07:30] LABS: HEMATOCRIT 32.2 % (36.0-47.0); HEMOGLOBIN 10.4 g/dL (12.0-15.5); MEAN CORPUSCULAR HEMOGLOBIN 32.1 pg (27.0-33.4); MEAN CORPUSCULAR HGB CONC 32.1 g/dL (32.0-36.0); MEAN CORPUSCULAR VOLUME 100 fl (80-97); RED BLOOD COUNT 3.22 10^6/uL (3.72-5.28); RED CELL DISTRIBUTION WIDTH 16.3 % (11.5-14.0); WHITE BLOOD COUNT 6.5 10^3/uL (4.0-10.5)
[2017-05-09 07:37] LABS: BLOOD UREA NITROGEN 13 mg/dL (7-20); CHLORIDE 118 mmol/L (98-107); CREATININE RESULT 0.51 mg/dL (0.52-1.25); GLUCOSE 70 mg/dL (75-110); MAGNESIUM 1.9 mg/dL (1.6-2.3); PHOSPHORUS 3.1 mg/dL (2.5-4.5); POTASSIUM 3.2 mmol/L (3.6-5.0)
[2017-05-09 07:53] LABS: ANION GAP 6 (5-19); CARBON DIOXIDE 22 mmol/L (22-30); SODIUM 145.7 mmol/L (137-145)
[2017-05-09 08:03] LABS: CALCIUM 6.8 mg/dL (8.4-10.2)
--- NOTE | 2017-05-09 08:35 | PDOC PROGRESS REPORT ---
Subjective Progress Note for:: 05/09/17 Subjective:: Patient feels better this morning. No reported respiratory distress or temperature spikes. Denies PND orthopnea. Still with some cough. Lower extremity edema about the same. Generalized body malaise significantly improved. Nausea resolved. No vomiting reported. Able to tolerate oral intake. Physical Exam Vital Signs: Temp Pulse Resp BP Pulse Ox 98.8 F 80 21 H 107/67 99 05/09/17 07:42 05/09/17 07:42 05/09/17 07:42 05/09/17 07:42 05/09/17 07:42 Intake & Output 05/08/17 05/09/17 05/10/17 06:59 06:59 06:59 Intake Total 2265 Output Total 600 Balance 1665 Weight 55.2 kg General appearance: PRESENT: no acute distress, cooperative Head exam: PRESENT: normocephalic Eye exam: PRESENT: EOMI Mouth exam: PRESENT: moist, neck supple Neck exam: ABSENT: JVD Respiratory exam: PRESENT: clear to auscultation rona. ABSENT: rhonchi, wheezes Cardiovascular exam: PRESENT: RRR. ABSENT: gallop GI/Abdominal exam: PRESENT: hypoactive bowel sounds, soft. ABSENT: distended, tenderness Extremities exam: PRESENT: +1 edema Neurological exam: PRESENT: alert, awake, oriented to situation Skin exam: PRESENT: dry, warm. ABSENT: cyanosis Results Laboratory Results: 05/09/17 07:09 05/09/17 07:09 05/08/17 05/08/17 05/09/17 15:57 15:57 07:09 WBC 6.5 RBC 3.22 L Hgb 10.4 L Hct 32.2 L MCV 100 H MCH 32.1 MCHC 32.1 RDW 16.3 H Plt Count 280 Sodium Potassium Chloride Carbon Dioxide Anion Gap BUN Creatinine Est GFR ( Amer) Est GFR (Non-Af Amer) Glucose Calcium Phosphorus Magnesium Vitamin B12 972.0 H Folate 12.70 TSH Free T4 0.86 05/09/17 05/09/17 07:09 07:09 WBC RBC Hgb Hct MCV MCH MCHC RDW Plt Count Sodium 145.7 H Potassium 3.2 L Chloride 118 H Carbon Dioxide 22 Anion Gap 6 BUN 13 Creatinine 0.51 L Est GFR ( Amer) > 60 Est GFR (Non-Af Amer) > 60 Glucose 70 L Calcium 6.8 L* Phosphorus 3.1 Magnesium 1.9 Vitamin B12 Folate TSH 2.08 Free T4 Impressions: Head MRI 05/08/17 00:00 IMPRESSION: No acute intracranial abnormality identified. Air-fluid levels noted in the paranasal sinuses, similar to the CT suggestive of sinusitis. KUB X-Ray 05/08/17 00:00 IMPRESSION: NO RADIOGRAPHIC EVIDENCE FOR ACUTE ABDOMINAL DISEASE. Moderate constipation. Chest X-Ray 05/08/17 07:48 IMPRESSION: NO ACUTE RADIOGRAPHIC FINDING IN THE CHEST. Head CT 05/08/17 09:26 IMPRESSION: Maxillary and ethmoid sinus disease with no acute intracranial pathology. Assessment & Plan - Diagnosis (1) Altered mental status Qualifiers: Altered mental status type: transient alteration of awareness Qualified Code(s): R40.4 - Transient alteration of awareness Is this a current diagnosis for this admission?: Yes (2) Generalized weakness Is this a current diagnosis for this admission?: Yes (3) Hypotension (arterial) Qualifiers: Hypotension type: unspecified hypotension type Qualified Code(s): I95.9 - Hypotension, unspecified Is this a current diagnosis for this admission?: Yes (4) Acute sinusitis Qualifiers: Recurrence: not specified as recurrent Is this a current diagnosis for this admission?: Yes (5) Abnormal urinalysis Is this a current diagnosis for this admission?: Yes (6) Chronic anemia Is this a current diagnosis for this admission?: Yes (7) Essential hypertension Is this a current diagnosis for this admission?: Yes (8) GERD (gastroesophageal reflux disease) Qualifiers: Esophagitis presence: without esophagitis Qualified Code(s): K21.9 - Gastro-esophageal reflux disease without esophagitis Is this a current diagnosis for this admission?: Yes (9) Anxiety and depression Is this a current diagnosis for this admission?: Yes (10) Diabetes mellitus type 2 in obese Is this a current diagnosis for this admission?: Yes (11) History of stroke Is this a current diagnosis for this admission?: Yes - Time Time Spent with patient: 25-34 minutes - Plan Summary Plan Summary: Begin physical therapy. Check ionized calcium. Decrease IV fluids. Recheck electrolytes in the morning. Awaiting results of lower extremity Doppler. We will begin DENICE hose as well. Continue antibiotics for now. Follow cultures. Obtain a chest x-ray for cough.
[2017-05-09] MEDS: TOPIRAMATE 25 MG TABLET PO SCH ×2 (09:09→21:07)
[2017-05-09] MEDS: LEVOFLOXACIN 750 MG/D5W RTU 150 ML IV SCH (09:09)
[2017-05-09] MEDS: ASPIRIN 81 MG TABLET, CHEWABLE PO SCH (09:09)
[2017-05-09] MEDS: ENOXAPARIN SODIUM INJ 40 MG/0.4 ML DISP.SYRIN SUBCUT SCH (09:09)
[2017-05-09] MEDS: ONDANSETRON HCL INJ/PF 4 MG/2 ML SDV IV PRN (09:15)
[2017-05-09] MEDS ORDERED: (PENDING PHARMACY ID) (Topiramate [Topiramate] 50 MG) PO SCH (10:00)
[2017-05-09] MEDS: GABAPENTIN 300 MG CAPSULE PO SCH ×2 (15:35→21:09)
--- NOTE | 2017-05-09 16:40 | RADIOLOGY REPORT (SQ) ---
EXAM DESCRIPTION: VENOUS BILATERAL LOWER COMPLETED DATE/TIME: 05/09/2017 4:06 pm REASON FOR STUDY: edema, leg pain, DVT R60.9 EDEMA, UNSPECIFIED N30.00 ACUTE CYSTITIS WITHOUT TITUS TURIA E83.51 HYPOCALCEMIA COMPARISON: None. TECHNIQUE: Dynamic and static keen scale and color images acquired of both lower extremity venous sy stems. Selected spectral images acquired with additional compression and augmentation maneuvers. Imag es stored on PACS. LIMITATIONS: None. FINDINGS: RIGHT LEG COMMON FEMORAL AND FEMORAL: Continuous flow no significant phasic flow in the common femoral vein. N ormal compression. No visualized echogenic material on keen scale. No defects on color images. POPLITEAL: Normal compression and augmentation. No visualized echogenic material on keen scale. No de fects on color images. CALF VESSELS: Normal compression and augmentation. No visualized echogenic material on keen scale. No defects on color image. GSV AND SSV: Normal compression. No visualized echogenic material on keen scale. No defects on color images. ANY DEEP VENOUS INSUFFICIENCY: Not evaluated. ANY EVIDENCE OF POPLITEAL CYST: No. OTHER: No other significant finding. LEFT LEG COMMON FEMORAL AND FEMORAL: Normal phasicity, compression and augmentation. No visualized echogenic m aterial on keen scale. No defects on color images. POPLITEAL: Normal compression and augmentation. No visualized echogenic material on keen scale. No de fects on color images. CALF VESSELS: Normal compression and augmentation. No visualized echogenic material on keen scale. No defects on color images. GSV AND SSV: Normal compression. No visualized echogenic material on keen scale. No defects on color images. ANY DEEP VENOUS INSUFFICIENCY: Not evaluated. ANY EVIDENCE POPLITEAL CYST: No. OTHER: No other significant finding. IMPRESSION: Loss of normal phasic waveforms within the left common femoral vein which can be a sign of iliac vein occlusion or external compression. No SVT or DVT identified. TECHNICAL DOCUMENTATION: JOB ID: [id number] [employer]- All Rights Reserved
[2017-05-09] MEDS: METRONIDAZOLE 500 MG TABLET PO SCH (21:07)
[2017-05-10] MEDS: METRONIDAZOLE 500 MG TABLET PO SCH ×3 (05:17→21:25)
[2017-05-10] MEDS: GABAPENTIN 300 MG CAPSULE PO SCH ×3 (05:17→21:25)
[2017-05-10] MEDS: LANSOPRAZOLE 30 MG TAB.RAP.DR PO SCH ×2 (05:17→18:14)
[2017-05-10] MEDS: NORMAL SALINE 1000 ML 1,000 ML IV PRN (05:19)
[2017-05-10 05:52] LABS: BLOOD UREA NITROGEN 12 mg/dL (7-20); CARBON DIOXIDE 21 mmol/L (22-30); CHLORIDE 117 mmol/L (98-107); CREATININE RESULT 0.47 mg/dL (0.52-1.25); GLUCOSE 73 mg/dL (75-110); POTASSIUM 3.2 mmol/L (3.6-5.0)
[2017-05-10 06:01] LABS: SODIUM 141.3 mmol/L (137-145)
[2017-05-10 06:07] LABS: ANION GAP 3 (5-19)
[2017-05-10 06:08] LABS: CALCIUM 6.4 mg/dL (8.4-10.2)
[2017-05-10 07:41] LABS: ADD ON TESTING BLD IN LAB ACKNOWLEDGE
[2017-05-10 08:20] LABS: ALBUMIN 1.4 g/dL (3.5-5.0)
[2017-05-10] MEDS: ASPIRIN 81 MG TABLET, CHEWABLE PO SCH (10:12)
[2017-05-10] MEDS: LEVOFLOXACIN 750 MG/D5W RTU 150 ML IV SCH (10:13)
[2017-05-10] MEDS: TOPIRAMATE 25 MG TABLET PO SCH ×2 (10:14→21:24)
[2017-05-10] MEDS ORDERED: NORMAL SALINE 1000 ML 1,000 ML IV PRN (10:53)
[2017-05-10] MEDS: ENOXAPARIN SODIUM INJ 40 MG/0.4 ML DISP.SYRIN SUBCUT SCH (10:57)
--- NOTE | 2017-05-10 11:02 | PDOC PROGRESS REPORT ---
Subjective Progress Note for:: 05/10/17 Subjective:: Continues to feel better but less. No reported respiratory distress or temperature spikes. Denies PND orthopnea. Still with some cough. Still lightheaded at times. Lower extremity edema about the same. Generalized body malaise significantly improved. Nausea resolved. No vomiting reported. Able to tolerate oral intake. Venous Doppler done and questionable possible iliac vein obstruction. Physical Exam Vital Signs: Temp Pulse Resp BP Pulse Ox 98.5 F 78 18 98/61 L 94 05/10/17 07:25 05/10/17 07:25 05/10/17 07:25 05/10/17 07:25 05/10/17 07:25 Intake & Output 05/09/17 05/10/17 05/11/17 06:59 06:59 06:59 Intake Total 2265 2772 Output Total 600 500 Balance 1665 2272 Weight 55.2 kg 58.6 kg General appearance: PRESENT: no acute distress, cooperative Head exam: PRESENT: normocephalic Eye exam: PRESENT: EOMI Mouth exam: PRESENT: moist, neck supple Neck exam: ABSENT: JVD Respiratory exam: PRESENT: clear to auscultation rona. ABSENT: rhonchi, wheezes Cardiovascular exam: PRESENT: RRR. ABSENT: gallop GI/Abdominal exam: PRESENT: hypoactive bowel sounds, soft. ABSENT: distended Extremities exam: PRESENT: +1 edema, other - Lower extremity tender bilateral Neurological exam: PRESENT: alert, awake, oriented to person, oriented to place , oriented to time, oriented to situation Skin exam: PRESENT: dry, warm. ABSENT: cyanosis Results Laboratory Results: 05/09/17 07:09 05/10/17 05:15 05/10/17 05/10/17 05:15 06:58 Sodium 141.3 Potassium 3.2 L Chloride 117 H Carbon Dioxide 21 L Anion Gap 3 L BUN 12 Creatinine 0.47 L Est GFR ( Amer) > 60 Est GFR (Non-Af Amer) > 60 Glucose 73 L Calcium 6.4 L* Albumin 1.4 L Impressions: Head MRI 05/08/17 00:00 IMPRESSION: No acute intracranial abnormality identified. Air-fluid levels noted in the paranasal sinuses, similar to the CT suggestive of sinusitis. KUB X-Ray 05/08/17 00:00 IMPRESSION: NO RADIOGRAPHIC EVIDENCE FOR ACUTE ABDOMINAL DISEASE. Moderate constipation. Chest X-Ray 05/08/17 07:48 IMPRESSION: NO ACUTE RADIOGRAPHIC FINDING IN THE CHEST. Head CT 05/08/17 09:26 IMPRESSION: Maxillary and ethmoid sinus disease with no acute intracranial pathology. Venous Doppler Study 05/09/17 00:00 IMPRESSION: Loss of normal phasic waveforms within the left common femoral vein which can be a sign of iliac vein occlusion or external compression. No SVT or DVT identified. Assessment & Plan - Diagnosis (1) Altered mental status Qualifiers: Altered mental status type: transient alteration of awareness Qualified Code(s): R40.4 - Transient alteration of awareness Is this a current diagnosis for this admission?: Yes (2) Generalized weakness Is this a current diagnosis for this admission?: Yes (3) Hypotension (arterial) Qualifiers: Hypotension type: unspecified hypotension type Qualified Code(s): I95.9 - Hypotension, unspecified Is this a current diagnosis for this admission?: Yes (4) Acute sinusitis Qualifiers: Recurrence: not specified as recurrent Is this a current diagnosis for this admission?: Yes (5) Abnormal urinalysis Is this a current diagnosis for this admission?: Yes (6) Chronic anemia Is this a current diagnosis for this admission?: Yes (7) Essential hypertension Is this a current diagnosis for this admission?: Yes (8) GERD (gastroesophageal reflux disease) Qualifiers: Esophagitis presence: without esophagitis Qualified Code(s): K21.9 - Gastro-esophageal reflux disease without esophagitis Is this a current diagnosis for this admission?: Yes (9) Anxiety and depression Is this a current diagnosis for this admission?: Yes (10) Diabetes mellitus type 2 in obese Is this a current diagnosis for this admission?: Yes (11) History of stroke Is this a current diagnosis for this admission?: Yes - Time Time Spent with patient: 25-34 minutes - Plan Summary Plan Summary: IV fluids to KVO. Consult vascular surgery for further evaluation and management of the abnormal lower extremity ultrasound. In the meantime continue supportive care. Replace potassium and magnesium and recheck electrolytes in the morning.
[2017-05-10] MEDS: POTASSIUM CHLORIDE 10 MEQ TABLET.SA PO SCH ×2 (11:21→14:09)
[2017-05-10] MEDS ORDERED: CALCIUM CARBONATE 250 MG/VITAMIN D3 125 UNIT TABLET PO ONE (11:30)
[2017-05-10] MEDS: CALCIUM CARBONATE 250 MG/VITAMIN D3 125 UNIT TABLET PO SCH (18:15)
[2017-05-11 04:41] LABS: BLOOD UREA NITROGEN 8 mg/dL (7-20); CARBON DIOXIDE 19 mmol/L (22-30); CHLORIDE 118 mmol/L (98-107); CREATININE RESULT 0.53 mg/dL (0.52-1.25); GLUCOSE 81 mg/dL (75-110); POTASSIUM 3.7 mmol/L (3.6-5.0)
[2017-05-11 04:55] LABS: ANION GAP 4 (5-19)
[2017-05-11 04:57] LABS: CALCIUM 6.9 mg/dL (8.4-10.2)
[2017-05-11] MEDS: LANSOPRAZOLE 30 MG TAB.RAP.DR PO SCH ×2 (05:17→18:30)
[2017-05-11] MEDS: METRONIDAZOLE 500 MG TABLET PO SCH (05:17)
[2017-05-11] MEDS: GABAPENTIN 300 MG CAPSULE PO SCH ×3 (05:17→22:21)
[2017-05-11] MEDS: ENOXAPARIN SODIUM INJ 40 MG/0.4 ML DISP.SYRIN SUBCUT SCH (10:42)
[2017-05-11] MEDS: ASPIRIN 81 MG TABLET, CHEWABLE PO SCH (10:43)
[2017-05-11] MEDS: TOPIRAMATE 25 MG TABLET PO SCH ×2 (10:43→22:21)
[2017-05-11] MEDS: CALCIUM CARBONATE 250 MG/VITAMIN D3 125 UNIT TABLET PO SCH ×2 (10:43→18:30)
[2017-05-11] MEDS: ONDANSETRON HCL INJ/PF 4 MG/2 ML SDV IV PRN (10:44)
--- NOTE | 2017-05-11 11:48 | PDOC PROGRESS REPORT ---
Subjective Progress Note for:: 05/11/17 Subjective:: Patient continues to feel better. Lower extremity edema is better. Pain and tenderness in both lower extremity better as well. Oral intake is better. Has bowel movement already. Denies any chills or fever nor diarrhea. Physical Exam Vital Signs: Temp Pulse Resp BP Pulse Ox 98.5 F 79 18 106/74 97 05/11/17 07:15 05/11/17 07:15 05/11/17 07:15 05/11/17 07:15 05/11/17 07:15 Intake & Output 05/10/17 05/11/17 05/12/17 06:59 06:59 06:59 Intake Total 1834 Output Total 1020 Balance 814 Weight 63.8 kg General appearance: PRESENT: no acute distress, cooperative Head exam: PRESENT: normocephalic Eye exam: PRESENT: EOMI Mouth exam: PRESENT: moist, neck supple Neck exam: ABSENT: JVD Respiratory exam: PRESENT: clear to auscultation rona. ABSENT: rhonchi, wheezes Cardiovascular exam: PRESENT: RRR. ABSENT: gallop GI/Abdominal exam: PRESENT: normal bowel sounds, soft. ABSENT: distended Extremities exam: PRESENT: tenderness - Less bilateral more than the left, +1 edema - Bilateral Neurological exam: PRESENT: alert, awake, oriented to situation Skin exam: PRESENT: dry, warm. ABSENT: cyanosis Results Laboratory Results: 05/11/17 04:16 05/11/17 04:16 Sodium 141.0 Potassium 3.7 Chloride 118 H Carbon Dioxide 19 L Anion Gap 4 L BUN 8 Creatinine 0.53 Est GFR ( Amer) > 60 Est GFR (Non-Af Amer) > 60 Glucose 81 Calcium 6.9 L* Impressions: Head MRI 05/08/17 00:00 IMPRESSION: No acute intracranial abnormality identified. Air-fluid levels noted in the paranasal sinuses, similar to the CT suggestive of sinusitis. KUB X-Ray 05/08/17 00:00 IMPRESSION: NO RADIOGRAPHIC EVIDENCE FOR ACUTE ABDOMINAL DISEASE. Moderate constipation. Chest X-Ray 05/08/17 07:48 IMPRESSION: NO ACUTE RADIOGRAPHIC FINDING IN THE CHEST. Head CT 05/08/17 09:26 IMPRESSION: Maxillary and ethmoid sinus disease with no acute intracranial pathology. Venous Doppler Study 05/09/17 00:00 IMPRESSION: Loss of normal phasic waveforms within the left common femoral vein which can be a sign of iliac vein occlusion or external compression. No SVT or DVT identified. Assessment & Plan - Diagnosis (1) Altered mental status Qualifiers: Altered mental status type: transient alteration of awareness Qualified Code(s): R40.4 - Transient alteration of awareness Is this a current diagnosis for this admission?: Yes (2) Generalized weakness Is this a current diagnosis for this admission?: Yes (3) Hypotension (arterial) Qualifiers: Hypotension type: unspecified hypotension type Qualified Code(s): I95.9 - Hypotension, unspecified Is this a current diagnosis for this admission?: Yes (4) Acute sinusitis Qualifiers: Recurrence: not specified as recurrent Is this a current diagnosis for this admission?: Yes (5) Abnormal urinalysis Is this a current diagnosis for this admission?: Yes (6) Chronic anemia Is this a current diagnosis for this admission?: Yes (7) Essential hypertension Is this a current diagnosis for this admission?: Yes (8) GERD (gastroesophageal reflux disease) Qualifiers: Esophagitis presence: without esophagitis Qualified Code(s): K21.9 - Gastro-esophageal reflux disease without esophagitis Is this a current diagnosis for this admission?: Yes (9) Anxiety and depression Is this a current diagnosis for this admission?: Yes (10) Diabetes mellitus type 2 in obese Is this a current diagnosis for this admission?: Yes (11) History of stroke Is this a current diagnosis for this admission?: Yes - Time Time Spent with patient: 25-34 minutes - Plan Summary Plan Summary: Discontinue Levaquin and start the patient on ciprofloxacin for the Pseudomonas in the urine. Discontinue metronidazole. Awaiting vascular surgery evaluation. Continue supportive care.
[2017-05-11] MEDS ORDERED: LEVOFLOXACIN 750 MG TABLET PO SCH (12:00)
[2017-05-11] MEDS: ACETAMINOPHEN 325 MG TABLET PO PRN (18:30)
[2017-05-11] MEDS ORDERED: CIPROFLOXACIN HCL 750 MG TABLET ONE (21:48)
[2017-05-11] MEDS: CIPROFLOXACIN HCL 750 MG TABLET PO SCH (22:21)
[2017-05-12] MEDS: ACETAMINOPHEN 325 MG TABLET PO PRN (06:04)
[2017-05-12] MEDS: GABAPENTIN 300 MG CAPSULE PO SCH (06:05)
[2017-05-12] MEDS: LANSOPRAZOLE 30 MG TAB.RAP.DR PO SCH (06:05)
[2017-05-12] MEDS: ONDANSETRON HCL INJ/PF 4 MG/2 ML SDV IV PRN (08:35)
[2017-05-12] MEDS: TOPIRAMATE 25 MG TABLET PO SCH (09:43)
[2017-05-12] MEDS: ASPIRIN 81 MG TABLET, CHEWABLE PO SCH (09:43)
[2017-05-12] MEDS: CALCIUM CARBONATE 250 MG/VITAMIN D3 125 UNIT TABLET PO SCH (09:43)
[2017-05-12] MEDS: ENOXAPARIN SODIUM INJ 40 MG/0.4 ML DISP.SYRIN SUBCUT SCH (09:45)
--- NOTE | 2017-05-12 09:59 | PDOC DISCHARGE SUMMARY ---
General - Admit/Disc Date/PCP Admission Date/Primary Care Provider: 05/10/17 13:52 HILTON MORSE PA-C Discharge Date: 05/12/17 - Discharge Diagnosis (1) Altered mental status Is this a current diagnosis for this admission?: Yes (2) Generalized weakness Is this a current diagnosis for this admission?: Yes (3) Hypotension (arterial) Is this a current diagnosis for this admission?: Yes (4) Urinary tract infection Is this a current diagnosis for this admission?: Yes (5) Acute sinusitis Is this a current diagnosis for this admission?: Yes (6) Chronic anemia Is this a current diagnosis for this admission?: Yes (7) Essential hypertension Is this a current diagnosis for this admission?: Yes (8) GERD (gastroesophageal reflux disease) Is this a current diagnosis for this admission?: Yes (9) Anxiety and depression Is this a current diagnosis for this admission?: Yes (10) Diabetes mellitus type 2 in obese Is this a current diagnosis for this admission?: Yes (11) History of stroke Is this a current diagnosis for this admission?: Yes - Additional Information Resuscitation Status: Full Code Discharge Diet: Cardiac - Low-fat low-salt, Diabetic - no concentrated sweets Discharge Activity: Activity As Tolerated, Balance Activity w/Rest Home Medications: Aspirin [Aspirin 81 mg Chewable Tablet] 81 mg PO DAILY 05/08/17 Benztropine Mesylate 1 mg PO Q12 05/08/17 Esomeprazole Magnesium 40 mg PO DAILY 05/08/17 Gabapentin 300 mg PO Q8 05/08/17 Lorazepam 1 mg PO Q8HP PRN 05/08/17 Naloxegol Oxalate [Movantik] 25 mg PO QAM 05/08/17 Ondansetron HCl [Zofran 8 mg Tablet] 8 mg PO Q12HP PRN 05/08/17 Oxycodone HCl 15 mg PO Q4HP PRN 05/08/17 Topiramate 50 mg PO Q12 05/08/17 Calcium Carbonate/Vitamin D3 [Os-Sotero 250 mg with Vitamin D 125 Units] 1 tab PO BID tablet 05/12/17 Ciprofloxacin HCl [Cipro 750 mg Tablet] 750 mg PO Q12 #12 tablet 05/12/17 History of Present Illness Patient complains of: Generalized weakness History of Present Illness: HILTON MI is a 47 year old female, with prior history of stroke with residual right-sided weakness, was brought to the emergency room because of generalized weakness. The patient has been noted to have progressive weakness for the past month or so. The patient has poor appetite. Patient was seen by her primary care physician on several occasions. There is no reported chills or fever, diarrhea, dysuria urgency or frequency, vaginal discharge. Patient started to feel short of breath on exertion with associated dizziness on standing up recently. Patient for the past 4 days was also noted to be having some coughing. He started to develop pleuritic pain on the right from coughing. She feels cold all the time. She was likewise noted to have increasing lower extremity edema. No paroxysmal nocturnal dyspnea nor any orthopnea. Likewise there is no chest pain. Patient has a history of stroke in the past with residual right-sided weakness. Patient is able to eat but just do not have appetite. She has intermittent nausea and occasional vomiting after eating. She takes narcotics for pain. Hospital Course Hospital Course: The patient was admitted to [facility]. The patient was hydrated with normal saline and the patient's hypotension resolved. The patient was started on antibiotics for sinusitis. A KUB revealed constipation. Patient was given laxatives and did have bowel movement. Urinalysis revealed urinary tract infection findings and the patient was started on antibiotic. Culture revealed Pseudomonas and the patient's antibiotic was shifted to ciprofloxacin and eventually oral preparation. The patient improved subsequently with hydration. Other workups include MRI of the brain which did not reveal any acute stroke. CT of the brain did not reveal any acute abnormality as well. However both this revealed sinusitis of which the patient is getting antibiotics. Patient has lower extremity edema with tenderness therefore an ultrasound was obtained showing no DVT but questionable obstruction on the left side therefore Dr. Dumont was consulted for further evaluation. The patient's lower extremity edema improved with time. Dr. Dumont cleared the patient to be discharged and will see the patient on an outpatient basis. The rest of the hospital stays unremarkable. Physical Exam Vital Signs: Temp Pulse Resp BP Pulse Ox 98.1 F 75 16 121/81 100 05/12/17 08:03 05/12/17 08:03 05/12/17 08:03 05/12/17 08:03 05/12/17 08:03 Intake & Output 05/11/17 05/12/17 05/13/17 06:59 06:59 06:59 Intake Total 1834 1360 Output Total 1020 0 Balance 814 1360 Weight 63.8 kg 49.9 kg General appearance: PRESENT: no acute distress, cooperative Head exam: PRESENT: normocephalic Eye exam: PRESENT: EOMI Mouth exam: PRESENT: moist, neck supple Neck exam: ABSENT: JVD Respiratory exam: PRESENT: clear to auscultation rona. ABSENT: rhonchi, wheezes Cardiovascular exam: PRESENT: RRR. ABSENT: gallop GI/Abdominal exam: PRESENT: hypoactive bowel sounds, soft. ABSENT: distended Extremities exam: PRESENT: +1 edema - Bilateral Neurological exam: PRESENT: alert, awake, oriented to person, oriented to place , oriented to time, oriented to situation Skin exam: PRESENT: dry, warm. ABSENT: cyanosis Results Laboratory Results: 05/11/17 04:16 Impressions: Head MRI 05/08/17 00:00 IMPRESSION: No acute intracranial abnormality identified. Air-fluid levels noted in the paranasal sinuses, similar to the CT suggestive of sinusitis. KUB X-Ray 05/08/17 00:00 IMPRESSION: NO RADIOGRAPHIC EVIDENCE FOR ACUTE ABDOMINAL DISEASE. Moderate constipation. Chest X-Ray 05/08/17 07:48 IMPRESSION: NO ACUTE RADIOGRAPHIC FINDING IN THE CHEST. Head CT 05/08/17 09:26 IMPRESSION: Maxillary and ethmoid sinus disease with no acute intracranial pathology. Venous Doppler Study 05/09/17 00:00 IMPRESSION: Loss of normal phasic waveforms within the left common femoral vein which can be a sign of iliac vein occlusion or external compression. No SVT or DVT identified. Qualifiers PATEINT BEING DISCHARGED WITH ANY OF THE FOLLOWING DIAGNOSIS?: No Plan Discharge Plan: Follow-up with Dr. Jose E Dumont on May 15, 2017. Follow-up with primary care physician in 1 week Time Spent: Less than 30 Minutes
[2017-05-12 10:10] VITALS: BP 97/62
[2017-05-12] MEDS: CIPROFLOXACIN HCL 750 MG TABLET PO SCH (10:38)
== END 2017-05-12 11:34 | disposition home or self-care (01) | DRG 948 ==
LOC: ER 07:20 → EH 11:44 → UNDOADMOB 11:44 → 3W 14:11 → EH 14:11 → 3W 15:11 → EH 15:11 → OBSVTOIN 05-10 13:52
PROVIDERS: ADMIT Family Medicine; ATTEND Family Medicine
DX: R60.9 Edema, unspecified (principal); I69.351 Hemiplegia and hemiparesis following cerebral infarction affecting right dominant side; N39.0 Urinary tract infection, site not specified; R40.4 Transient alteration of awareness; R53.1 Weakness; I95.9 Hypotension, unspecified; B96.5 Pseudomonas (aeruginosa) (mallei) (pseudomallei) as the cause of diseases classified elsewhere; J01.90 Acute sinusitis, unspecified; K59.00 Constipation, unspecified; D64.9 Anemia, unspecified; I10 Essential (primary) hypertension; K21.9 Gastro-esophageal reflux disease without esophagitis; F41.1 Generalized anxiety disorder; F32.9 Major depressive disorder, single episode, unspecified; E11.9 Type 2 diabetes mellitus without complications; Z79.82 Long term (current) use of aspirin; Z79.899 Other long term (current) drug therapy; Z90.49 Acquired absence of other specified parts of digestive tract; Z98.84 Bariatric surgery status; Z90.710 Acquired absence of both cervix and uterus; Z88.0 Allergy status to penicillin
CPT/HCPCS: 36415; 70450; 70551; 71010; 74000; 80048; 80053; 80307; 81001; 82040; 82330; 82550; 82553; 82607; 82746; 83605; 83735; 83880; 84100; 84439; 84443; 84484; 85025; 85027; 85610; 85730; 87086; 87088; 87186; 93005; 93010; 93970; 99285; G0378; G8978-GP; G8979-GP; J1650; J1956; J2060; J2405; J3490; J7030

== ENCOUNTER 2017-08-14 14:28 | Inpatient (IN) | payer MEDICARE, MEDICAID ==
[2017-08-14] MEDS ORDERED: NORMAL SALINE 1000 ML 1,000 ML IV PRN (15:07)
--- NOTE | 2017-08-14 15:08 | ER Document Report ---
ED Medical Screen (RME) - General Chief Complaint: General Weakness Stated Complaint: WEAKNESS Time Seen by Provider: 08/14/17 14:51 Mode of Arrival: Wheelchair Information source: Relative TRAVEL OUTSIDE OF THE [place] IN LAST 30 DAYS: No - HPI Patient complains to provider of: Generalized weakness Notes: 08/14/17 15:07 Patient is a 47-year-old female brought to the emergency room by son for complaints of generalized weakness it has been worsening over the past few weeks to the point where patient is now will chair or bed bound, she has had nausea and vomiting, decreased appetite, and change in mental status, senses that yesterday all she ate was 1 chicken negative throughout the day, she also has a history of narcotic prescription abuse in the past - Related Data Allergies/Adverse Reactions: Penicillins Allergy (Verified 08/14/17 15:03) Past Medical History - Past Medical History Cardiac Medical History: Reports: Hx Hypertension Neurological Medical History: Reports: Hx Cerebrovascular Accident Endocrine Medical History: Reports: Hx Diabetes Mellitus Type 2 Renal/ Medical History: Denies: Hx Peritoneal Dialysis GI Medical History: Reports: Hx Gastroesophageal Reflux Disease, Hx Ulcer, Hx Endoscopy Psychiatric Medical History: Reports: Hx Anxiety, Hx Bipolar Disorder, Hx Depression, Hx Schizophrenia Past Surgical History: Reports: Hx Abdominal Surgery - gastric bypass, reversal , Hx Cholecystectomy, Hx Gastric Bypass Surgery, Hx Hysterectomy, Hx Orthopedic Surgery - LLE, left jaw - Immunizations Immunizations up to date: Yes Hx Diphtheria, Pertussis, Tetanus Vaccination: Yes Physical Exam - Vital signs Vitals: Temp Pulse Resp BP Pulse Ox 99.1 F 131 H 16 99/81 L 95 08/14/17 14:45 08/14/17 14:45 08/14/17 14:45 08/14/17 14:45 08/14/17 14:45 Course - Vital Signs Vital signs: Temp Pulse Resp BP Pulse Ox 99.1 F 131 H 16 99/81 L 95 08/14/17 14:45 08/14/17 14:45 08/14/17 14:45 08/14/17 14:45 08/14/17 14:45
[2017-08-14] MEDS ORDERED: VANCOMYCIN HCL INJ 1000 MG VIAL IV ONE ×2 (15:23→19:26)
--- NOTE | 2017-08-14 15:27 | ER Document Report ---
ED General - General Chief Complaint: General Weakness Stated Complaint: WEAKNESS Time Seen by Provider: 08/14/17 14:51 Mode of Arrival: Wheelchair Notes: 47-year-old female with a history of stroke as well as recurrent abdominal pain generalized weakness and admission 2 months ago for urosepsis presents with 2 weeks of worsening generalized weakness global severe preventing her from getting out of bed. She has not had fever or chills. She denies vaginal discharge. She has some redness in her right groin and blisters on the back of her legs which been worsening. She has decreased oral intake and decreased urine output with dark urine but no hematuria or dysuria. TRAVEL OUTSIDE OF THE [place] IN LAST 30 DAYS: No - Related Data Allergies/Adverse Reactions: Penicillins Allergy (Verified 08/14/17 15:03) Past Medical History - General Information source: Patient, Relative - Social History Smoking Status: Never Smoker Chew tobacco use (# tins/day): No Frequency of alcohol use: None Drug Abuse: None Family History: DM, Hypertension Patient has suicidal ideation: No Patient has homicidal ideation: No - Past Medical History Cardiac Medical History: Reports: Hx Hypertension Neurological Medical History: Reports: Hx Cerebrovascular Accident Endocrine Medical History: Reports: Hx Diabetes Mellitus Type 2 Renal/ Medical History: Denies: Hx Peritoneal Dialysis GI Medical History: Reports: Hx Gastroesophageal Reflux Disease, Hx Ulcer, Hx Endoscopy Psychiatric Medical History: Reports: Hx Anxiety, Hx Bipolar Disorder, Hx Depression, Hx Schizophrenia Past Surgical History: Reports: Hx Abdominal Surgery - gastric bypass, reversal , Hx Cholecystectomy, Hx Gastric Bypass Surgery, Hx Hysterectomy, Hx Orthopedic Surgery - LLE, left jaw - Immunizations Immunizations up to date: Yes Hx Diphtheria, Pertussis, Tetanus Vaccination: Yes Review of Systems - Review of Systems Notes: I REVIEW OF SYSTEMS GEN: Nose weakness weight loss "malnutrition" ENT: Denies sore throat, nasal discharge, ear pain EYES: Denies blurry vision, eye pain, discharge CV: Denies chest pain, palpitations, edema RESP: Denies cough, shortness of breath, wheezing GI: Denies abdominal pain, nausea, vomiting, diarrhea MSK: Denies joint pain/swelling, edema, SKIN: Right groin and bilateral leg blisters LYMPH: Denies swollen glands/lymph nodes NEURO: D right-sided weakness from stroke, global weakness, headache PSYCH: Denies depression, suicidal or homicidal ideation PHYSICAL EXAMINATION General: Appears ill and frail Head: Atraumatic, normocephalic ENT: Mouth normal, oropharynx moist, no exudates or tonsillar enlargement Eyes: Conjunctiva normal, pupils equal, lids normal Neck: No JVD, supple, no guarding CVS: Normal rate, regular rhythm, no murmurs Resp: No resp distress, equal and normal breath sounds bilaterally GI: Nondistended, soft, no tenderness to palpation, no rebound or guarding Ext: No deformities, diffuse mild edema, normal range of motion in upper and lower ext Back: No CVA or midline TTP Skin: Beefy red rash right thigh groin area. Chronic appearing edema with mild ulceration of bilateral lower legs but no r abscess or drainage. Patchy left ankle erythema with tenderness but no fluctuance medial side. Lymphatic: No lymphadeopathy noted Neuro: Right-sided mild weakness. Lateral decreased muscle tone and bulk. Physical Exam - Vital signs Vitals: Temp Pulse Resp BP Pulse Ox 99.1 F 131 H 16 99/81 L 95 08/14/17 14:45 08/14/17 14:45 08/14/17 14:45 08/14/17 14:45 08/14/17 14:45 Course - Re-evaluation Re-evalutation: 08/14/17 15:26 Critically ill female presented with generalized weakness and hypotension and tachycardia to 130 concerning for sepsis. Possible sources include multiple sites of skin redness could be cellulitis, given the appearance of her right groin and left ankle, I think that necrotizing soft tissue infection is not likely the cause. Urine is another possible source. She was ordered a sepsis protocol in triage, this included fluid. This included lactate. I added vancomycin and Zosyn for coverage. We will monitor closely in the ED and she will be admitted to the intensive care unit. 08/14/17 15:27 Verified full CODE STATUS with patient. 08/14/17 17:21 Reassessed at 5 PM. Still has only a tiny IV and has not gotten any blood draw. Consented for central line. Urine looks quite dark and this is pending at this time. Placed in left IJ with some difficulty, please see procedure note. At this time nurses are instructed to give fluid bolus and antibiotics. I will admit. 08/14/17 18:53 Lab results show hypocalcemia and hypokalemia both of which will be repleted. Her lactic is 1. This accompanied by her lack of urinary infection or pneumonia on lab and x-ray argues against sepsis. SWill continue to hydrate and replete electrolytes. Will admit. 08/14/17 19:[address] Ness - Vital Signs Vital signs: Temp Pulse Resp BP Pulse Ox 99.1 F 131 H 12 104/72 98 08/14/17 14:47 08/14/17 14:47 08/14/17 19:00 08/14/17 18:01 08/14/17 19:00 - Laboratory Result Diagrams: 08/14/17 17:15 08/14/17 17:15 Laboratory results interpreted by me: 08/14/17 08/14/17 08/14/17 16:00 17:15 17:15 RBC 2.83 L Hgb 9.5 L Hct 28.6 L MCV 101 H MCH 33.7 H RDW 17.2 H Plt Count 123 L Potassium 2.6 L* Chloride 111 H Anion Gap 4 L Calcium 6.3 L* Direct Bilirubin 0.6 H AST 39 H ALT 56 H Alkaline Phosphatase 166 H Total Protein 3.0 L Albumin 1.2 L Lipase < 10.0 L Urine Protein 30 H Urine Bilirubin SMALL H Urine Urobilinogen 4.0 H Salicylates < 1.0 L Acetaminophen < 10 L Procedures - Central Line Left Internal jugular Time completed: 17:40 Consent obtained: Yes Central line pre-insertion: Sterile PPE donned, Chloraprep applied, Sterile drapes applied Central line size (Fr.): 6 Central line lumen type: Triple Anesthetic type: 1% Lidocaine mL's of anesthesia: 3 Ultrasound guided: Yes Line secured with sutures: Yes Central line post-insertion: Blood return from lumens, Biopatch applied, Sutured , Sterile dressing applied, Position confirmed w/ CXR Number of attempts: 3 Complications: Yes - Possible inadvertent carotid puncture. No dilation. Pressure applied for Critical Care Note - Critical Care Note Total time excluding time spent on procedures (mins): 40 Comments: The above patient is critically ill. Not including procedures, but including direct re-evaluations, speaking with patient and/or consultants, interpreting results, and documenting, I spent the total amount of minute listed listed above on critical care time, please note that patient is full code. Discharge - Discharge Clinical Impression: Dehydration Sepsis Qualifiers: Sepsis type: sepsis due to unspecified organism Qualified Code(s): A41.9 - Sepsis, unspecified organism Hypotension (arterial) Qualifiers: Hypotension type: unspecified hypotension type Qualified Code(s): I95.9 - Hypotension, unspecified Condition: Critical Disposition: ADMITTED INPATIENT Admitting Provider: Hospitalist Unit Admitted: IMCU Referrals: HILTON MORSE PA-C [Primary Care Provider] - Follow up as needed
--- NOTE | 2017-08-14 16:29 | RADIOLOGY REPORT (SQ) ---
EXAM DESCRIPTION: CHEST SINGLE VIEW COMPLETED DATE/TIME: 08/14/2017 4:19 pm REASON FOR STUDY: fever r/o PNA COMPARISON: 05/08/2017 EXAM PARAMETERS: NUMBER OF VIEWS: One view. TECHNIQUE: Single frontal radiographic view of the chest acquired. RADIATION DOSE: NA LIMITATIONS: None. FINDINGS: LUNGS AND PLEURA: There are areas of opacification in both lower lung sainz, left more th an. MEDIASTINUM AND HILAR STRUCTURES: No masses. Contour normal. HEART AND VASCULAR STRUCTURES: Heart normal in size. Normal vasculature. BONES: No acute findings. HARDWARE: None in the chest. OTHER: No other significant finding. IMPRESSION: Left lingular or lower lobe pneumonia. There also appears to be a limited pneumonia on the right. TECHNICAL DOCUMENTATION: JOB ID: [id number]
[2017-08-14 16:41] LABS: APPEARANCE,URINE CLEAR; BILIRUBIN,URINE SMALL (NEGATIVE); GLUCOSE, URINE NEGATIVE (NEGATIVE); KETONES,URINE NEGATIVE (NEGATIVE); LEUKOCYTE ESTERASE,URINE NEGATIVE (NEGATIVE); NITRITE,URINE NEGATIVE (NEGATIVE); PROTEIN,URINE 30 mg/dL (NEGATIVE); URINE SPECIFIC GRAVITY 1.024
[2017-08-14 16:50] LABS: URINE BARBITURATES SCREEN NEGATIVE; URINE METHADONE SCREEN NEGATIVE; URINE OPIATES LOW UNCONFIRMED POSITIVE; URINE PHENCYCLIDINE SCREEN NEGATIVE
[2017-08-14] MEDS ORDERED: FENTANYL CITRATE INJ/PF 100 MCG/2 ML AMPUL IV ONE (17:22)
[2017-08-14 17:43] LABS: ABSOLUTE BASOPHILS # (AUTO) 0.1 10^3/uL (0.0-0.2); ABSOLUTE LYMPHOCYTES (AUTO) 1.8 10^3/uL (0.5-4.7); ABSOLUTE MONOCYTES (AUTO) 0.3 10^3/uL (0.1-1.4); ABSOLUTE NEUT (AUTO) 4.9 10^3/uL (1.7-8.2); BASOPHILS % (AUTO) 0.8 % (0-2); EOSINOPHILS % (AUTO) 0.2 % (0-6); HEMATOCRIT 28.6 % (36.0-47.0); HEMOGLOBIN 9.5 g/dL (12.0-15.5); HGB HCT DIFFERENCE -0.1; LYMPHOCYTES % (AUTO) 25.5 % (13-45); MEAN CORPUSCULAR HEMOGLOBIN 33.7 pg (27.0-33.4); MEAN CORPUSCULAR HGB CONC 33.4 g/dL (32.0-36.0); MEAN CORPUSCULAR VOLUME 101 fl (80-97); MONOCYTES % (AUTO) 4.5 % (3-13); RED BLOOD COUNT 2.83 10^6/uL (3.72-5.28); RED CELL DISTRIBUTION WIDTH 17.2 % (11.5-14.0); WHITE BLOOD COUNT 7.1 10^3/uL (4.0-10.5)
[2017-08-14 18:02] LABS: ALANINE AMINOTRANSFERASE 56 U/L (9-52); ALBUMIN 1.2 g/dL (3.5-5.0); ALKALINE PHOSPHATASE 166 U/L (38-126); ASPARTATE AMINO TRANSFERASE 39 U/L (14-36); BILIRUBIN,DIRECT 0.6 mg/dL (0.0-0.4); BILIRUBIN,TOTAL 0.6 mg/dL (0.2-1.3); BLOOD UREA NITROGEN 13 mg/dL (7-20); CARBON DIOXIDE 25 mmol/L (22-30); CHLORIDE 111 mmol/L (98-107); CREATININE RESULT 0.54 mg/dL (0.52-1.25); GLUCOSE 75 mg/dL (75-110)
[2017-08-14 18:03] LABS: ALCOHOL < 10 mg/dL (NONE DETECTED); LIPASE < 10.0 U/L (23-300)
--- NOTE | 2017-08-14 18:09 | RADIOLOGY REPORT (SQ) ---
EXAM DESCRIPTION: CHEST SINGLE VIEW COMPLETED DATE/TIME: 08/14/2017 5:41 pm REASON FOR STUDY: line placement r/o PX COMPARISON: 08/14/2017 EXAM PARAMETERS: NUMBER OF VIEWS: One view. TECHNIQUE: Single frontal radiographic view of the chest acquired. RADIATION DOSE: NA LIMITATIONS: None. FINDINGS: LUNGS AND PLEURA: There is still appear to be lower lobe infiltrates bilaterally. No pneu mothorax is seen MEDIASTINUM AND HILAR STRUCTURES: No masses. Contour normal. HEART AND VASCULAR STRUCTURES: Heart normal in size. Normal vasculature. BONES: No acute findings. HARDWARE: A left internal jugular catheter has its tip near the right atrium. OTHER: No other significant finding. IMPRESSION: No pneumothorax. Bilateral infiltrates are suggested. TECHNICAL DOCUMENTATION: JOB ID: [id number]
[2017-08-14 18:10] LABS: SODIUM 139.6 mmol/L (137-145)
[2017-08-14 18:13] LABS: ANION GAP 4 (5-19)
[2017-08-14 18:15] LABS: CALCIUM 6.3 mg/dL (8.4-10.2); POTASSIUM 2.6 mmol/L (3.6-5.0)
[2017-08-14] MEDS ORDERED: CALCIUM GLUCONATE 1000 MG/10 ML INJ IV ONE (18:16)
[2017-08-14] MEDS ORDERED: MAGNESIUM SULFATE/D5W 1 GM/100 ML RTUPB IV ONE (18:24)
[2017-08-14] MEDS: POTASSI CL 20 MEQ/50 ML RIDER 20 MEQ/50 ML RTUPB IV SCH ×2 (18:56→20:07)
[2017-08-14] MEDS ORDERED: IBUPROFEN 600 MG TABLET PO ONE (18:59)
[2017-08-14] MEDS ORDERED: CEFTRIAXONE 1 GM/D5W RTU 50 ML IV ONE (19:26)
[2017-08-14 20:23] LABS: ADD ON TESTING BLD IN LAB ACKNOWLEDGE
[2017-08-14 20:53] LABS: MAGNESIUM 1.8 mg/dL (1.6-2.3)
[2017-08-14] MEDS ORDERED: GUAIFENESIN SYRP 200 MG/10 ML UDC PO PRN (21:19)
[2017-08-14] MEDS ORDERED: IPRATROPIUM/ALBUTEROL 0.5-2.5 MG/3 ML AMPUL NEB PRN (21:19)
[2017-08-14] MEDS ORDERED: PROMETHAZINE HCL 25 MG TABLET PO PRN (21:21)
[2017-08-14] MEDS ORDERED: OXYCODONE HCL IR 5 MG TABLET PO PRN (21:26)
[2017-08-14] MEDS ORDERED: POTASSI CL 20 MEQ/50 ML RIDER 20 MEQ/50 ML RTUPB IV ONE ×2 (21:30→22:00)
--- NOTE | 2017-08-14 21:33 | PDOC H&P ---
History of Present Illness Admission Date/PCP: 08/14/17 19:37 HILTON MORSE PA-C Patient complains of: Generalized weakness History of Present Illness: HILTON MI is a 47 year old female without known underlying pulmonary disease, including asthma, COPD, or obstructive sleep apnea, who presents to the emergency room for evaluation of a 2 week history of above complaint. Patient has been discussed with emergency room physician who evaluated the patient. She has had nausea, but no vomiting. No cough. No fever or chills. When I asked her if she were able to walk, she stated yes with assistance. However, upon completion of my physical exam, it was obvious that patient had been bedbound for some time now. Upon further questioning, patient states she had not been able to walk for "several months." Lives at home, with close family follow-up. Prior stroke several years ago, which has left her with left-sided weakness. No prior seizure. Complaining of stinging discomfort at the site of decubitus ulcers on her sacrum , left buttock, and right calf. Describes alternating breast swelling for some time now. Describes lower extremity swelling, also for some time now. No history of pulmonary embolus or DVT. Hospitalized on our service May 10 through 12 May this year with discharge diagnoses including altered mental status, generalized weakness, hypotension, urinary tract infection, and acute sinusitis. Discharge summary has been reviewed. Admitted to our service August 18, 2015, with admission diagnoses including acute focal neurologic deficit, with aphasia and acute on chronic left hemiparesis, back to baseline at the time of admission. History and physical has been reviewed. Dictation via voice recognition software. Laboratory results are listed in [employer] and are reviewed. X-ray summary results are listed below, with full report(s) reviewed. . EKG reviewed and compared to prior tracing from May 08 of this year. Social history/personal habits: . Lives at home alone, but has close family follow-up. Has children. On disability. No use of alcohol tobacco or illicit drugs. Allergies/adverse reactions are listed in [employer] and are reviewed. Uncertain if she can tolerate cephalosporins. Home medications initially autopopulated into [email or web address] may not accurately reflect patient's true medications, dosages, and/or frequencies. hydrological technical officer has reconciled medications. REVIEW OF SYSTEMS: Constitutional: See history and present illness. Eyes: Wears glasses. ENT: No swallowing problems or complaints. Partial hearing loss. Pulmonary: No current complaints. Cardiovascular: No current complaints, including chest pain. Gastrointestinal: See history and present illness. Skin: See history and present illness. Hematologic: Easy bruising. Neurologic: See history and present illness. Musculoskeletal: Joint pain from arthritis. Psychiatric: Anxiety and depression. Denies suicidal or homicidal ideation. Endocrine: No current complaints, including polyuria. Genitourinary: No current complaints, including dysuria. PHYSICAL EXAMINATION: 5 feet 1 inches tall. 59 kg. Patient appears heavier than listed weight; order listed to please reweigh patient. BMI 24.6 kg/m. Blood pressure 104/ 73. Pulse 95 and regular. 100% saturation on 1 L oxygen per nasal cannula. Respirations are 14 and unlabored. Temperature 98.7. Obese chronically ill-appearing quite frail female who appears a fair number of years older than her stated age. Awake alert pleasant and cooperative. Appears not to feel very well. Somewhat anxious, although no alley agitation. Female emergency room assisted living nursing director Mirian is present. Skin is warm and dry. No subcutaneous nodules palpated. What appears to be a typical fungal groin rash. Small stage II decubiti, clean, right calf, medial upper left buttock, and sacrum. Approximately a 5 x 5 cm slightly erythematous somewhat papular rash on medial aspect of her left ankle. ENT: Hearing grossly normal to normal conversation. Tongue midline on protrusion pink and slightly tacky. Eyes: No scleral icterus. Pupils equal and reactive to light at 4 mm. [place] conjunctivae. Neck is supple and nontender to gentle active range of motion and palpation. Midline trachea. No palpable thyroid nodule mass enlargement or tenderness. Lymphatic: No palpable cervical or clavicular nodes. Neck and lymphatic exams limited by patient body habitus. Psychiatric: At best fair insight into acute and chronic medical issues. Oriented to time location and why here. Lungs: Auscultation reveals clear and equal breath sounds bilaterally. No use of accessory respiratory muscles. Cardiovascular: Heart regular rate and rhythm, without gallop murmur or rub. No carotid or abdominal aortic bruits. Generalized edema, upper and lower extremities, along with trunk. Faintly palpable dorsalis pedis pulses. No breast tenderness to gentle palpation. Abdomen:soft somewhat obese and distended nontender with positive bowel sounds. Unable to adequately evaluate abdomen for masses or organomegaly due to body habitus and distention. Extremities: Feet are warm and dry. No specific calf tenderness to compression. Unable to manipulate lower extremities due to what appears to be chronic stiffness, along with discomfort on the part of the patient. Neurologic: Moves upper extremities grossly normally. Patellar reflexes absent. Absent Babinski. Light touch is intact at feet. Dorsiflexion and plantarflexion of feet 3 / 5 and symmetric. Past Medical History Cardiac Medical History: Reports: Hypertension Pulmonary Medical History: Denies: Asthma, Chronic Obstructive Pulmonary Disease (COPD), Sleep Apnea EENT Medical History: Reports: Eyes - Glasses, Ears - Partial hearing loss Denies: Throat Neurological Medical History: Reports: Ischemic CVA Denies: Hemorrhagic CVA Endocrine Medical History: Reports: Diabetes Mellitus Type 2 Denies: Hyperthyroidism, Hypothyroidism Renal/ Medical History: Reports: None GI Medical History: Reports: Gastroesophageal Reflux Disease Denies: Cirrhosis, Hepatitis, Peptic Ulcer Disease Musculoskeltal Medical History: Reports: Arthritis Psychiatric Medical History: Reports: Bipolar Disorder, Depression, General Anxiety Disorder Denies: Alcohol Dependency, Substance Abuse, Tobacco Dependency Hematology: Reports: Anemia Infectious Medical History: Denies: Hepatitis B, Hepatitis C Past Surgical History Past Surgical History: Reports: Cholecystectomy, Gastric Bypass Surgery, Hysterectomy, Orthopedic Surgery - LLE, left jaw Social History Information Source: Patient, Emergency Med Personnel, [facility] Records Lives with: Alone - Close family follow-up Smoking Status: Never Smoker Frequency of Alcohol Use: None Hx Recreational Drug Use: No Drugs: None Hx Prescription Drug Abuse: No - Advance Directive Resuscitation Status: Full Code Surrogate healthcare decision maker:: Sister Zahida Family History Family History: DM, Hypertension Parental Family History Reviewed: Yes - Mother of [place]; father alive with COPD Children Family History Reviewed: Yes - Healthy Sibling(s) Family History Reviewed.: Yes - Healthy Medication/Allergy Home Medications: Amitriptyline HCl [Elavil 50 Mg Tablet] 50 mg PO BID 08/14/17 Aspirin [Aspirin EC] 81 mg PO DAILY 08/14/17 Benztropine Mesylate [Cogentin 1 mg Tablet] 1 tab PO BID 08/14/17 Esomeprazole Magnesium [Nexium] 40 mg PO QAM 08/14/17 Gabapentin [Neurontin 300 mg Capsule] 300 mg PO Q8 08/14/17 Lorazepam [Ativan 1 mg Tablet] 1 mg PO Q8HP PRN 08/14/17 Lurasidone HCl [Latuda] 40 mg PO BID 08/14/17 Morphine Sulfate [Ms Contin] 15 mg PO Q12HP PRN 08/14/17 Mupirocin [Bactroban 2% Ointment 22 gm] 1 applic TP BID 08/14/17 Naloxegol Oxalate [Movantik 25 mg Tablet] 25 mg PO DAILY 08/14/17 Ondansetron [Zofran Odt] 8 mg PO Q12HP PRN 08/14/17 Oxycodone HCl [Oxy-Ir 5 mg Tablet] 5 mg PO Q12HP PRN 08/14/17 Topiramate [Topamax] 50 mg PO BID 08/14/17 Allergies/Adverse Reactions: Penicillins Allergy (Verified 08/14/17 15:03) Physical Exam Vital Signs: Temp Pulse Resp BP Pulse Ox 98.7 F 131 H 8 L 104/73 98 08/14/17 20:18 08/14/17 14:47 08/14/17 20:01 08/14/17 20:01 08/14/17 19:01 Results Impressions: Chest X-Ray 08/14/17 17:18 IMPRESSION: No pneumothorax. Bilateral infiltrates are suggested. Assessment & Plan - Diagnosis (1) Breast swelling Is this a current diagnosis for this admission?: Yes Plan: Suspect this can be managed as an outpatient. (2) Thrombocytopenia Is this a current diagnosis for this admission?: Yes Plan: Will hold Lovenox or heparin at this point in time. Follow-up CBC with differential. (3) Elevated LFTs Is this a current diagnosis for this admission?: Yes Plan: Follow-up chemistry. (4) Generalized edema Is this a current diagnosis for this admission?: Yes Plan: Suspect in part at least nutritionally related. Dietary consult. (5) rash left ankle Is this a current diagnosis for this admission?: Yes (6) Rash of groin Is this a current diagnosis for this admission?: Yes (7) Decubitus ulcer of right leg, stage 2 Is this a current diagnosis for this admission?: Yes Plan: Innovative mattress. Turn every 2 hours. Dietary consult. (8) Sacral decubitus ulcer, stage II Is this a current diagnosis for this admission?: Yes (9) Decubitus ulcer of left buttock, stage 2 Is this a current diagnosis for this admission?: Yes (10) Pneumonia involving right lung Qualifiers: Pneumonia type: due to unspecified organism Lung location: unspecified part of lung Qualified Code(s): J18.9 - Pneumonia, unspecified organism Is this a current diagnosis for this admission?: Yes Plan: Patient will be admitted under pneumonia protocol. Incentive spirometry twice a day. As needed DuoNeb's. Antibiotics will consist of aztreonam and intravenous Zithromax.. Patient is a full code. I have strongly encouraged patient not to get out of bed without notifying staff , to avoid a fall with injury. Knee high SCDs for DVT prophylaxis. Impression and plans were discussed with patient who concurs. Time spent in evaluation and management of patient: 85 minutes. (11) Pneumonia involving left lung Qualifiers: Pneumonia type: due to unspecified organism Lung location: unspecified part of lung Qualified Code(s): J18.9 - Pneumonia, unspecified organism Is this a current diagnosis for this admission?: Yes (12) Hemiparesis affecting left side as late effect of cerebrovascular accident Is this a current diagnosis for this admission?: Yes (13) Chronic anemia Is this a current diagnosis for this admission?: Yes Plan: Follow-up CBC with differential. No need for transfusion at present time. (14) Generalized weakness Is this a current diagnosis for this admission?: Yes Plan: TSH. Physical therapy consult. Suspect patient will need senior care facility for inpatient rehab. Discussed with patient, who seems to agree. Discharge planning consult. (15) Anxiety and depression Is this a current diagnosis for this admission?: Yes Plan: Resume home medications as appropriate once these have been determined and reviewed. (16) Right leg swelling Is this a current diagnosis for this admission?: Yes Plan: suspect chronic, but will proceed with vENOUS doppler. (17) Left leg swelling Is this a current diagnosis for this admission?: Yes - Time Time Spent: Greater than 70 Minutes Medications reviewed and adjusted accordingly: Yes Anticipated discharge: Acute Rehab Within: Other - Inpatient Certification Based on my medical assessment, after consideration of the patient's comorbidities, presenting symptoms, or acuity I expect that the services needed warrant INPATIENT care.: Yes I certify that my determination is in accordance with my understanding of Medicare's requirements for reasonable and necessary INPATIENT services [42 CFR 412.3e].: Yes Medical Necessity: Significant Comorbidiites Make Outpatient Treatment Too Risky , Need Close Monitoring Due to Risk of Patient Decompensation, Need for Nebulizer Therapy and Monitoring of Response, Need for IV Antibiotics, Risk of Complication if Not Cared For in Hospital Post Hospital Care: D/C or Transfer Summary
[2017-08-14] MEDS ORDERED: AZITHROMYCIN 500 MG in DEXTROSE 5%-WATER 250 ML IV SCH (22:00)
--- NOTE | 2017-08-14 23:40 | RADIOLOGY REPORT (SQ) ---
EXAM DESCRIPTION: VENOUS BILATERAL LOWER COMPLETED DATE/TIME: 08/14/2017 10:50 pm REASON FOR STUDY: bilat swelling COMPARISON: None. TECHNIQUE: Dynamic and static keen scale and color images acquired of both lower extremity venous sy stems. Selected spectral images acquired with additional compression and augmentation maneuvers. Imag es stored on PACS. LIMITATIONS: None. FINDINGS: RIGHT LEG COMMON FEMORAL AND FEMORAL: Normal phasicity, compression and augmentation. No visualized echogenic m aterial on keen scale. No defects on color images. POPLITEAL: Normal compression and augmentation. No visualized echogenic material on keen scale. No de fects on color images. CALF VESSELS: Normal compression and augmentation. No visualized echogenic material on keen scale. No defects on color image. GSV AND SSV: Normal compression. No visualized echogenic material on keen scale. No defects on color images. ANY DEEP VENOUS INSUFFICIENCY: Not evaluated. ANY EVIDENCE OF POPLITEAL CYST: No. OTHER: No other significant finding. LEFT LEG COMMON FEMORAL AND FEMORAL: Normal phasicity, compression and augmentation. No visualized echogenic m aterial on keen scale. No defects on color images. POPLITEAL: Normal compression and augmentation. No visualized echogenic material on keen scale. No de fects on color images. CALF VESSELS: Normal compression and augmentation. No visualized echogenic material on keen scale. No defects on color images. GSV AND SSV: Normal compression. No visualized echogenic material on keen scale. No defects on color images. ANY DEEP VENOUS INSUFFICIENCY: Not evaluated. ANY EVIDENCE POPLITEAL CYST: No. OTHER: No other significant finding. IMPRESSION: NO EVIDENCE DVT OR SVT IN EITHER LEG. TECHNICAL DOCUMENTATION: JOB ID: [id number] [employer]- All Rights Reserved
[2017-08-15] MEDS: ACETAMINOPHEN 325 MG TABLET PO PRN ×2 (00:13→15:06)
[2017-08-15] MEDS ORDERED: AZTREONAM 1 GM in DEXTROSE 5%-WATER 50 ML IV SCH (02:00)
[2017-08-15] MEDS ORDERED: INFLUENZA ADLT QUAD (36MOS+) 2017-18 VAC 0.5 ML SYR IM PRN (02:27)
[2017-08-15 05:21] LABS: ABSOLUTE MONOCYTES (AUTO) 0.3 10^3/uL (0.1-1.4); ABSOLUTE NEUT (AUTO) 4.2 10^3/uL (1.7-8.2); BASOPHILS % (AUTO) 0.3 % (0-2); EOSINOPHILS % (AUTO) 0.4 % (0-6); HEMATOCRIT 26.8 % (36.0-47.0); HEMOGLOBIN 9.2 g/dL (12.0-15.5); HGB HCT DIFFERENCE 0.8; LYMPHOCYTES % (AUTO) 30.6 % (13-45); MEAN CORPUSCULAR HGB CONC 34.4 g/dL (32.0-36.0); MEAN CORPUSCULAR VOLUME 102 fl (80-97); RED BLOOD COUNT 2.63 10^6/uL (3.72-5.28); RED CELL DISTRIBUTION WIDTH 17.8 % (11.5-14.0); SEGMENTED NEUTROPHILS % (AUTO) 64.7 % (42-78); WHITE BLOOD COUNT 6.4 10^3/uL (4.0-10.5)
[2017-08-15 05:30] LABS: ALANINE AMINOTRANSFERASE 49 U/L (9-52); ALBUMIN 1.2 g/dL (3.5-5.0); ALKALINE PHOSPHATASE 158 U/L (38-126); ASPARTATE AMINO TRANSFERASE 35 U/L (14-36); BILIRUBIN,DIRECT 0.5 mg/dL (0.0-0.4); BILIRUBIN,TOTAL 0.5 mg/dL (0.2-1.3); BLOOD UREA NITROGEN 12 mg/dL (7-20); CARBON DIOXIDE 25 mmol/L (22-30); CHLORIDE 112 mmol/L (98-107); CREATININE RESULT 0.53 mg/dL (0.52-1.25); GLUCOSE 83 mg/dL (75-110); POTASSIUM 3.5 mmol/L (3.6-5.0); SODIUM 137.4 mmol/L (137-145); TOTAL PROTEIN 2.9 g/dL (6.3-8.2)
[2017-08-15] MEDS ORDERED: OXYCODONE HCL IR 5 MG TABLET PO PRN (07:32)
[2017-08-15] MEDS ORDERED: LORAZEPAM 1 MG TABLET PO PRN (07:32)
[2017-08-15] MEDS ORDERED: POTASSIUM CHLORIDE 10 MEQ TABLET.SA PO ONE (07:34)
[2017-08-15] MEDS ORDERED: MAGNESIUM SULFATE/D5W 1 GM/100 ML RTUPB IV ONE (07:34)
[2017-08-15] MEDS ORDERED: LANSOPRAZOLE 30 MG TAB.RAP.DR PO SCH (08:00)
[2017-08-15] MEDS ORDERED: POTASSI CL 20 MEQ/50 ML RIDER 20 MEQ/50 ML RTUPB IV ONE ×2 (08:00)
[2017-08-15] MEDS: LANSOPRAZOLE 30 MG TAB.RAP.DR PO SCH (08:44)
[2017-08-15] MEDS ORDERED: LURASIDONE HCL 40 MG TABLET PO ONE ×2 (09:00→19:00)
--- NOTE | 2017-08-15 09:11 | EKG REPORT ---
SEVERITY:- ABNORMAL ECG - SINUS TACHYCARDIA LOW VOLTAGE THROUGHOUT NONSPECIFIC T ABNORMALITIES, ANT-LAT LEADS : Confirmed by: Maria Esther Ortega MD 15-Aug-2017 09:10:47
[2017-08-15] MEDS ORDERED: (PENDING PHARMACY ID) (Naloxegol Oxalate 25 MG) PO SCH (10:00)
[2017-08-15] MEDS ORDERED: (PENDING PHARMACY ID) (Lurasidone Hcl [Latuda] 40 MG) PO SCH (10:00)
[2017-08-15] MEDS ORDERED: BISACODYL 5 MG TABEC PO ONE (10:30)
[2017-08-15] MEDS ORDERED: FUROSEMIDE INJ/PF 20 MG/2 ML SDV IV ONE (10:30)
[2017-08-15] MEDS ORDERED: LUBIPROSTONE 24 MCG CAPSULE PO ONE (11:00)
[2017-08-15] MEDS: ASPIRIN 81 MG TABLET, ENT COATED PO SCH (12:22)
[2017-08-15] MEDS: NYSTATIN TOPICAL POWDER 15 GM TP SCH ×2 (12:23→17:50)
[2017-08-15] MEDS: MEGESTROL ACETATE SUSP 400 MG/10 ML UDCUP PO SCH (12:24)
[2017-08-15] MEDS: MUPIROCIN 2% OINTMENT 22 GM TP SCH ×2 (12:25→17:50)
[2017-08-15] MEDS: CEFTRIAXONE 1 GM/D5W RTU 1 GM/50 ML RTUPB IV SCH (12:26)
[2017-08-15] MEDS ORDERED: GLUCAGON,HUMAN RECOMB 1 MG INJ IM PRN (14:49)
[2017-08-15] MEDS ORDERED: DEXTROSE 40% GEL 15 GM TUBE PO PRN ×2 (14:49)
[2017-08-15] MEDS ORDERED: DEXTROSE 50%-WATER 25 GM/50 ML DISP.SYRIN IV PRN ×2 (14:49)
--- NOTE | 2017-08-15 15:01 | PDOC PROGRESS REPORT ---
Subjective Progress Note for:: 08/15/17 Subjective:: Patient complains of generalized pain. Patient denies chest pain, shortness of breath, abdominal pain, nausea, vomiting , fevers, chills, diarrhea, constipation, headache, new onset weakness. Patient reports she only recently started working with outpatient physical therapy. Physical Exam Vital Signs: Temp Pulse Resp BP Pulse Ox 98.0 F 90 13 96/69 L 96 08/14/17 23:55 08/15/17 02:00 08/14/17 23:55 08/14/17 23:55 08/14/17 23:55 Intake & Output 08/14/17 08/15/17 08/16/17 06:59 06:59 06:59 Intake Total 500 Output Total 200 Balance 300 Exam: General: Chronically ill-appearing, pale, poorly nourished, awake alert and oriented x3, no acute respiratory distress HEENT: AT/NC, PERRL, EOMI, oropharynx is moist, pink, no scleral icterus, no conjunctival injection Neck: No JVD, trachea midline Chest: Clear to auscultation bilaterally, no wheezes rhonchi or rales CV: Regular rate and rhythm, normal S1 and S2, no rub or gallop; 2/6 sm rusb Abdomen: Soft, mildly diffusely tender to palpation, nondistended, hypoactive bowel sounds; no rebound, rigidity, or guarding Extremities: No cyanosis, clubbing; 2+edema Neuro: left hemiparesis; awake alert and oriented x3 Psych: flat mood and affect Results Laboratory Results: 08/15/17 05:00 08/15/17 05:00 08/15/17 08/15/17 05:00 05:00 WBC 6.4 RBC 2.63 L Hgb 9.2 L Hct 26.8 L MCV 102 H MCH 35.0 H MCHC 34.4 RDW 17.8 H Plt Count 113 L Seg Neutrophils % 64.7 Lymphocytes % 30.6 Monocytes % 4.0 Eosinophils % 0.4 Basophils % 0.3 Absolute Neutrophils 4.2 Absolute Lymphocytes 2.0 Absolute Monocytes 0.3 Absolute Eosinophils 0.0 Absolute Basophils 0.0 Sodium 137.4 Potassium 3.5 L Chloride 112 H Carbon Dioxide 25 Anion Gap BUN 12 Creatinine 0.53 Est GFR ( Amer) > 60 Est GFR (Non-Af Amer) > 60 Glucose 83 Calcium 6.5 L* Total Bilirubin 0.5 AST 35 ALT 49 Alkaline Phosphatase 158 H Total Protein 2.9 L Albumin 1.2 L Impressions: Venous Doppler Study 08/14/17 00:00 IMPRESSION: NO EVIDENCE DVT OR SVT IN EITHER LEG. Chest X-Ray 08/14/17 17:18 IMPRESSION: No pneumothorax. Bilateral infiltrates are suggested. Assessment & Plan - Diagnosis (1) Pneumonia Qualifiers: Pneumonia type: aspiration pneumonia Laterality: bilateral Lung location : lower lobe of lung Is this a current diagnosis for this admission?: Yes Plan: Concern for aspiration pneumonia or for atypical gram-negative organisms for this patient. Patient currently on Rocephin and azithromycin. Incentive spirometry and flutter valve. Scheduled nebulized treatments. (2) Decubitus ulcer of left buttock, stage 2 Is this a current diagnosis for this admission?: Yes Plan: Patient on Rocephin we will continue to monitor localized wound care. Patient' s nutrition is exceptionally poor and I have concerns for healing send secondary to this. (3) Decubitus ulcer of right leg, stage 2 Is this a current diagnosis for this admission?: Yes Plan: Patient on Rocephin we will continue to monitor localized wound care. Patient' s nutrition is exceptionally poor and I have concerns for healing send secondary to this. (4) Generalized edema Is this a current diagnosis for this admission?: Yes Plan: This is likely secondary to patient's severe hypoalbuminemia. Will obtain a UA to check for nephritis, but suspect secondary to her diet and poor nutrition. Patient has history of gastric bypass which is not helping this condition. (5) Sacral decubitus ulcer, stage II Is this a current diagnosis for this admission?: Yes (6) Thrombocytopenia Is this a current diagnosis for this admission?: Yes Plan: Continue to monitor. (7) Essential hypertension Is this a current diagnosis for this admission?: Yes Plan: Patient has history of hypertension, but is currently mildly hypotensive. Continue IV fluids. (8) Anxiety and depression Is this a current diagnosis for this admission?: Yes Plan: Continue patient's Latuda and Ativan Patient's drug screen conspicuously negative for benzodiazepines (9) Chronic anemia Is this a current diagnosis for this admission?: Yes Plan: Secondary to her malabsorptive state. (10) GERD (gastroesophageal reflux disease) Qualifiers: Esophagitis presence: without esophagitis Qualified Code(s): K21.9 - Gastro -esophageal reflux disease without esophagitis Is this a current diagnosis for this admission?: Yes Plan: Patient had recent upper endoscopy for ulceration at the site of her anastomosis. Continue PPI and Pepcid (11) Generalized weakness Is this a current diagnosis for this admission?: Yes (12) Hemiparesis affecting left side as late effect of cerebrovascular accident Is this a current diagnosis for this admission?: Yes (13) Hypothyroidism Qualifiers: Hypothyroidism type: unspecified Qualified Code(s): E03.9 - Hypothyroidism , unspecified Is this a current diagnosis for this admission?: No Plan: Patient is not currently taking any thyroid replacement. Her studies are adequate. I am unsure if this is a past or current diagnosis. 08/14/17 08/15/17 17:15 05:00 TSH 0.95 Free T4 0.97 (14) Opiate dependence Qualifiers: Substance use status: with unspecified opioid-induced disorder Qualified Code(s): F11.29 - Opioid dependence with unspecified opioid-induced disorder Is this a current diagnosis for this admission?: Yes Plan: Continue patient's home opiates. I have concern that this patient has had gastric bypass and is on a long-acting pain medication. I wonder how effective this actually is for this patient. (15) Malnutrition compromising bodily function Is this a current diagnosis for this admission?: Yes Plan: Patient with severe protein calorie malnourishment secondary to underlying gastric bypass status. Will consult dietary and place patient on supplements. (16) DM type 2 (diabetes mellitus, type 2) Qualifiers: Diabetes mellitus complication status: with other specified complication Diabetes mellitus residential insulin use: unspecified residential insulin use status Qualified Code(s): E11.69 - Type 2 diabetes mellitus with other specified complication Is this a current diagnosis for this admission?: Yes Plan: Check hemoglobin A1c Continue sliding-scale insulin Patient is not on any medications as an outpatient. - Time Time Spent with patient: 25-34 minutes Medications reviewed and adjusted accordingly: Yes Anticipated discharge: Acute Rehab - Inpatient Certification Based on my medical assessment, after consideration of the patient's comorbidities, presenting symptoms, or acuity I expect that the services needed warrant INPATIENT care.: Yes I certify that my determination is in accordance with my understanding of Medicare's requirements for reasonable and necessary INPATIENT services [42 CFR 412.3e].: Yes Medical Necessity: Need for IV Antibiotics Post Hospital Care: D/C Logistics Engineering Manager Documentation
[2017-08-15] MEDS: GABAPENTIN 300 MG CAPSULE PO SCH (15:06)
[2017-08-15] MEDS: LEVOFLOXACIN 750 MG TABLET PO SCH (15:50)
[2017-08-15] MEDS ORDERED: CHOLECALCIFEROL (D3) 1,000 UNIT TABLET PO ONE (16:00)
[2017-08-15] MEDS ORDERED: LURASIDONE HCL 40 MG TABLET PO SCH (17:00)
[2017-08-15] MEDS: CALCIUM CARBONATE 500 MG TAB.CHEW PO SCH (17:09)
[2017-08-15] MEDS: MULTIVITAMINS W-IRON TABLET, CHEWABLE PO SCH (17:57)
[2017-08-15 18:47] LABS: APPEARANCE,URINE CLEAR; BILIRUBIN,URINE NEGATIVE (NEGATIVE); GLUCOSE, URINE NEGATIVE (NEGATIVE); KETONES,URINE NEGATIVE (NEGATIVE); LEUKOCYTE ESTERASE,URINE NEGATIVE (NEGATIVE); NITRITE,URINE NEGATIVE (NEGATIVE); PROTEIN,URINE NEGATIVE (NEGATIVE); URINE SPECIFIC GRAVITY 1.012
[2017-08-15] MEDS ORDERED: NALOXEGOL 25 MG PO ONE (19:30)
[2017-08-15] MEDS ORDERED: CALCIUM GLUCONATE 1000 MG/10 ML INJ IV ONE ×2 (19:30→23:49)
[2017-08-15] MEDS ORDERED: LUBIPROSTONE 24 MCG CAPSULE PO SCH (22:00)
[2017-08-16] MEDS: CALCIUM CARBONATE 500 MG TAB.CHEW PO SCH ×4 (00:22→22:39)
[2017-08-16] MEDS: GABAPENTIN 300 MG CAPSULE PO SCH ×4 (00:23→22:40)
[2017-08-16] MEDS: AMITRIPTYLINE HCL 50 MG TABLET PO SCH ×2 (00:24→22:40)
[2017-08-16] MEDS: ACETAMINOPHEN 325 MG TABLET PO PRN (01:05)
[2017-08-16 06:05] LABS: ABSOLUTE BASOPHILS # (AUTO) 0.1 10^3/uL (0.0-0.2); ABSOLUTE MONOCYTES (AUTO) 0.2 10^3/uL (0.1-1.4); ABSOLUTE NEUT (AUTO) 3.9 10^3/uL (1.7-8.2); BASOPHILS % (AUTO) 1.4 % (0-2); EOSINOPHILS % (AUTO) 0.4 % (0-6); HEMATOCRIT 28.3 % (36.0-47.0); HEMOGLOBIN 9.6 g/dL (12.0-15.5); HGB HCT DIFFERENCE 0.5; LYMPHOCYTES % (AUTO) 32.1 % (13-45); MEAN CORPUSCULAR HEMOGLOBIN 34.6 pg (27.0-33.4); MEAN CORPUSCULAR VOLUME 102 fl (80-97); MONOCYTES % (AUTO) 2.7 % (3-13); RED BLOOD COUNT 2.77 10^6/uL (3.72-5.28); RED CELL DISTRIBUTION WIDTH 17.1 % (11.5-14.0); SEGMENTED NEUTROPHILS % (AUTO) 63.4 % (42-78); WHITE BLOOD COUNT 6.1 10^3/uL (4.0-10.5)
[2017-08-16 06:07] LABS: ALANINE AMINOTRANSFERASE 55 U/L (9-52); ALBUMIN 1.2 g/dL (3.5-5.0); ALKALINE PHOSPHATASE 153 U/L (38-126); ASPARTATE AMINO TRANSFERASE 37 U/L (14-36); BILIRUBIN,DIRECT 0.4 mg/dL (0.0-0.4); BILIRUBIN,TOTAL 0.4 mg/dL (0.2-1.3); BLOOD UREA NITROGEN 11 mg/dL (7-20); CARBON DIOXIDE 25 mmol/L (22-30); CHLORIDE 112 mmol/L (98-107); CREATININE RESULT 0.55 mg/dL (0.52-1.25); GLUCOSE 69 mg/dL (75-110); MAGNESIUM 2.1 mg/dL (1.6-2.3); PHOSPHORUS 2.5 mg/dL (2.5-4.5); POTASSIUM 3.9 mmol/L (3.6-5.0); TOTAL PROTEIN 3.1 g/dL (6.3-8.2)
[2017-08-16 06:17] LABS: SODIUM 137.6 mmol/L (137-145)
[2017-08-16 06:22] LABS: ANION GAP 1 (5-19); CALCIUM 6.9 mg/dL (8.4-10.2)
[2017-08-16] MEDS: OXYCODONE HCL IR 5 MG TABLET PO PRN ×3 (06:28→14:43)
[2017-08-16] MEDS ORDERED: CALCIUM GLUCONATE 1000 MG/10 ML INJ IV ONE (08:30)
[2017-08-16 09:14] LABS: CALCIUM 6.5 mg/dL (8.4-10.2)
[2017-08-16] MEDS: CHOLECALCIFEROL (D3) 1,000 UNIT TABLET PO SCH (09:35)
[2017-08-16] MEDS: LANSOPRAZOLE 30 MG TAB.RAP.DR PO SCH (09:35)
[2017-08-16] MEDS: CYANOCOBALAMIN (VITAMIN B-12) 1,000 MCG TABLET PO SCH (09:35)
[2017-08-16] MEDS: ASPIRIN 81 MG TABLET, ENT COATED PO SCH (09:36)
[2017-08-16] MEDS: LURASIDONE HCL 40 MG TABLET PO SCH ×2 (09:41→16:37)
[2017-08-16] MEDS: NALOXEGOL 25 MG PO SCH (09:44)
[2017-08-16] MEDS: MEGESTROL ACETATE SUSP 400 MG/10 ML UDCUP PO SCH (09:46)
[2017-08-16] MEDS: CEFTRIAXONE 1 GM/D5W RTU 1 GM/50 ML RTUPB IV SCH (09:47)
[2017-08-16] MEDS: NYSTATIN TOPICAL POWDER 15 GM TP SCH ×2 (09:47→17:10)
[2017-08-16] MEDS: MUPIROCIN 2% OINTMENT 22 GM TP SCH ×2 (09:48→17:10)
[2017-08-16] MEDS ORDERED: BUMETANIDE INJ/PF 1 MG/4 ML SDV IV ONE (12:30)
[2017-08-16] MEDS ORDERED: SENNOSIDES/DOCUSATE 8.6-50 MG 1 EACH TABLET PO ONE ×2 (12:30→17:30)
[2017-08-16] MEDS ORDERED: BISACODYL 5 MG TABEC PO ONE ×2 (12:30→17:30)
[2017-08-16] MEDS ORDERED: GLYCERIN 99.5% (ANHYDROUS) 177 ML PR ONE (12:45)
[2017-08-16] MEDS ORDERED: MINERAL OIL 30 ML UDCUP PR ONE (12:45)
[2017-08-16] MEDS ORDERED: SORBITOL 70% SOLUTION 30 ML UDC PR ONE (12:45)
[2017-08-16] MEDS ORDERED: MAGNESIUM HYDROXIDE SUSP 30 ML UDCUP PR ONE (12:45)
--- NOTE | 2017-08-16 13:57 | Palliative Consultation Report ---
Consultation From:: JOE RYAN - [facility] HPI: Appreciate Palliative care consult request for this 47 year old patient who is admitted with pneumonia and severe deconditioning. SHe is bedfast at home per her but patient insists that she ambulates at home. She does not eat, takes opiods for pain "which is all over" and says she is on many medications for bipolar disorder. Her three children still live at home and her cares for her with their help. Patient states her legs hurt because of the edema in them.. She has some edema in both lower legs, but feet are in air boots to prevent pressure ulcers so they are less painful to her here. She has stage 2 decubs on sacrum, left buttock and right leg. which were present on admission. I spoke with patient about feeding tube, she said she would not want feeding tube. I talked with her about code status and she said she would want ventilator if needed because she wants everything done for her if something happens. We discussed how unrealistic it is to have all medical interventions done if she wont try to eat, turn herself or take care of herself long before those interventions are needed. Her was at bedside during this conversation and he would signal me when she was not telling truth about ambulating or eating. Onset: Last week Onset/Duration: Gradual Quality of Pain: Achy Severity: Mild Pain Level: 3 Associated Symptoms: Body/muscle aches, Shortness of breath, Weakness Exacerbated by: Movement Relieved by: Remaining still Past Medical History(Consults) - General Information Source: Patient, Relative, [facility] Records Home Medications: Amitriptyline HCl [Elavil 50 Mg Tablet] 50 mg PO BID 08/14/17 Aspirin [Aspirin EC] 81 mg PO DAILY 08/14/17 Benztropine Mesylate [Cogentin 1 mg Tablet] 1 tab PO BID 08/14/17 Esomeprazole Magnesium [Nexium] 40 mg PO QAM 08/14/17 Gabapentin [Neurontin 300 mg Capsule] 300 mg PO Q8 08/14/17 Lorazepam [Ativan 1 mg Tablet] 1 mg PO Q8HP PRN 08/14/17 Lurasidone HCl [Latuda] 40 mg PO BID 08/14/17 Morphine Sulfate [Ms Contin] 15 mg PO Q12HP PRN 08/14/17 Mupirocin [Bactroban 2% Ointment 22 gm] 1 applic TP BID 08/14/17 Naloxegol Oxalate [Movantik 25 mg Tablet] 25 mg PO DAILY 08/14/17 Ondansetron [Zofran Odt] 8 mg PO Q12HP PRN 08/14/17 Oxycodone HCl [Oxy-Ir 5 mg Tablet] 5 mg PO Q12HP PRN 08/14/17 Topiramate [Topamax] 50 mg PO BID 08/14/17 Allergies/Adverse Reactions: Penicillins Allergy (Verified 08/14/17 15:03) - Social History Lives with: Alone - Close family follow-up, Family Family History: DM, Hypertension Parental Family History Reviewed: No Children Family History Reviewed: No Sibling(s) Family History Reviewed.: No Smoking Status: Never Smoker Last Time Smoked: 20 years ago Frequency of Alcohol Use: None Hx Recreational Drug Use: No Drugs: None Hx Prescription Drug Abuse: No - Past Medical History Cardiac Medical History: Reports: Hx Hypertension Pulmonary Medical History: Reports: Hx Pneumonia Denies: Hx Asthma, Hx COPD, Hx Sleep Apnea EENT Medical History: Reports: Eyes - Glasses, Ears - Partial hearing loss Denies: Throat Neurological Medical History: Reports: Hx Cerebrovascular Accident Endocrine Medical History: Reports: Hx Diabetes Mellitus Type 2. Denies: Hx Hyperthyroidism, Hx Hypothyroidism Renal/ Medical History: Reports: None. Denies: Hx Peritoneal Dialysis GI Medical History: Reports: Hx Gastroesophageal Reflux Disease, Hx Ulcer, Hx Endoscopy, Other - GI bleed in past. Denies: Hx Cirrhosis, Hx Hepatitis Musculoskeltal Medical History: Reports Hx Arthritis Skin History Note: Decubiti Psychiatric Medical History: Reports: Hx Anxiety, Hx Bipolar Disorder, Hx Depression, Hx Schizophrenia Infectious Medical History: Denies: Hx Hepatitis Hematology: Reports: Anemia - Surgical History Past Surgical History: Reports: Hx Abdominal Surgery - gastric bypass, reversal , Hx Cholecystectomy, Hx Gastric Bypass Surgery, Hx Hysterectomy, Hx Orthopedic Surgery - LLE, left jaw - Immunizations Immunizations up to date: Yes Review of systems Constitutional: Chills, Malaise, Weakness, Weight loss Cardiovascular: Chest pain, Dyspnea Respiratory: Cough Gastrointestinal: Poor appetite Musculoskeltal: Back pain, Muscle pain Skin: Other - Decubiti Hematologic/Lymphatic: Anemia Ojective:Exam Vital Signs: Temp Pulse Resp BP Pulse Ox 98.5 F 109 H 18 102/66 91 L 08/16/17 07:14 08/16/17 07:14 08/16/17 07:14 08/16/17 11:48 08/16/17 07:14 Intake & Output 08/15/17 08/16/17 08/17/17 06:59 06:59 06:59 Intake Total 500 1180 Output Total 200 1000 Balance 300 180 - General General Appearance: Alert, Anxious In distress: None - Neck Neck: Normal - IV access left neck - Back Back: Scoliosis - Respiratory Respiratory Status: No respiratory distress Chest Status: Tender, Pain with cough Breath sounds: Decreased air movement - Cardiovascular Rhythm: Regular Pulses: Normal: Radial - Abdominal Distension: No distension - Genitourinary Female External exam: Normal - arredondo in place - Extremities Forearm: Ecchymosis Hand: Swelling Calf: Tender - Both lower extremities edematous and tender to touch Ankle: Edema Objective-Diagnostic Laboratory: 08/16/17 05:15 08/16/17 05:15 08/15/17 08/15/17 08/15/17 05:00 15:17 17:12 WBC RBC Hgb Hct MCV MCH MCHC RDW Plt Count Seg Neutrophils % Lymphocytes % Monocytes % Eosinophils % Basophils % Absolute Neutrophils Absolute Lymphocytes Absolute Monocytes Absolute Eosinophils Absolute Basophils Sodium Potassium Chloride Carbon Dioxide Anion Gap BUN Creatinine Est GFR ( Amer) Est GFR (Non-Af Amer) Glucose Calcium 6.5 L* Ionized Calcium Ney 1.05 L Phosphorus Magnesium Total Bilirubin AST ALT Alkaline Phosphatase Total Protein Albumin Urine Color YELLOW Urine Appearance CLEAR Urine pH 6.0 Ur Specific [place] 1.012 Urine Protein NEGATIVE Urine Glucose (UA) NEGATIVE Urine Ketones NEGATIVE Urine Blood SMALL H Urine Nitrite NEGATIVE Ur Leukocyte Esterase NEGATIVE Urine WBC (Auto) 4 Urine RBC (Auto) 3 08/16/17 08/16/17 05:15 05:15 WBC 6.1 RBC 2.77 L Hgb 9.6 L Hct 28.3 L MCV 102 H MCH 34.6 H MCHC 34.0 RDW 17.1 H Plt Count 70 L Seg Neutrophils % 63.4 Lymphocytes % 32.1 Monocytes % 2.7 L Eosinophils % 0.4 Basophils % 1.4 Absolute Neutrophils 3.9 Absolute Lymphocytes 2.0 Absolute Monocytes 0.2 Absolute Eosinophils 0.0 Absolute Basophils 0.1 Sodium 137.6 Potassium 3.9 Chloride 112 H Carbon Dioxide 25 Anion Gap 1 L BUN 11 Creatinine 0.55 Est GFR ( Amer) > 60 Est GFR (Non-Af Amer) > 60 Glucose 69 L Calcium 6.9 L* Ionized Calcium Ney Phosphorus 2.5 Magnesium 2.1 Total Bilirubin 0.4 AST 37 H ALT 55 H Alkaline Phosphatase 153 H Total Protein 3.1 L Albumin 1.2 L Urine Color Urine Appearance Urine pH Ur Specific [place] Urine Protein Urine Glucose (UA) Urine Ketones Urine Blood Urine Nitrite Ur Leukocyte Esterase Urine WBC (Auto) Urine RBC (Auto) Plan and Recommendation Plan and Recommendation: Spoke with patient and about her condition and ability at home. Apparently patient stays in bed at home and is not eating. Her albumin level is 1.2, her Protein level is 3.1. states she does not eat. SHe admits to taking meds and wanting to hide under her blankets. Spoke with Dr. Donis about patient. She has mentioned hospice for care at home and states the agrees that this would be good. Patient is slowly starving herself and he wants her to be kept comfortable. Dr. Donis said hospice liason could talk with him on Saturday and see if this is an option to help with her care. Patient denies any symptoms that are not being addressed here. She is going to be on IV antibiotics for a few days, I will follow along with hospice liason. especially needs support as he has to watch his shut down. Apparently she already sees psychiatry. Appreciate opportunity to assist with care. - Time Spent with Patient Time spent with patient: 15 to 30 Minutes Time: 20 min with patient and 20 min chart review and consultation
[2017-08-16] MEDS: MULTIVITAMINS W-IRON TABLET, CHEWABLE PO SCH ×2 (14:43→17:09)
--- NOTE | 2017-08-16 15:07 | PDOC PROGRESS REPORT ---
Subjective Progress Note for:: 08/16/17 Subjective:: Patient seen earlier today morning rounds with her present at bedside. Nursing was also present. Patient continues to complain of her normal chronic pain, she is also having bilateral lower extremity pain and upper extremity pain secondary to swelling. Patient denies chest pain, shortness of breath, abdominal pain, nausea, vomiting , fevers, chills, diarrhea, headache. Patient is still yet to have a bowel movement. Physical Exam Vital Signs: Temp Pulse Resp BP Pulse Ox 98.7 F 110 H 18 103/63 93 08/16/17 12:29 08/16/17 12:29 08/16/17 12:29 08/16/17 12:29 08/16/17 12:29 Intake & Output 08/15/17 08/16/17 08/17/17 06:59 06:59 06:59 Intake Total 500 1180 Output Total 200 1000 Balance 300 180 Exam: General: Chronically ill-appearing, pale, poorly nourished, awake alert and oriented x3, no acute respiratory distress HEENT: AT/NC, PERRL, EOMI, oropharynx is moist, pink, no scleral icterus, no conjunctival injection Neck: No JVD, trachea midline Chest: Clear to auscultation bilaterally, no wheezes rhonchi or rales CV: Regular rate and rhythm, normal S1 and S2, no rub or gallop; 2/6 sm rusb Abdomen: Soft, mildly diffusely tender to palpation, nondistended, hypoactive bowel sounds; no rebound, rigidity, or guarding Extremities: No cyanosis, clubbing; 3+edema Neuro: left hemiparesis; awake alert and oriented x3 Psych: flat mood and affect Results Laboratory Results: 08/16/17 05:15 08/16/17 05:15 08/15/17 08/15/17 08/15/17 05:00 15:17 17:12 WBC RBC Hgb Hct MCV MCH MCHC RDW Plt Count Seg Neutrophils % Lymphocytes % Monocytes % Eosinophils % Basophils % Absolute Neutrophils Absolute Lymphocytes Absolute Monocytes Absolute Eosinophils Absolute Basophils Sodium Potassium Chloride Carbon Dioxide Anion Gap BUN Creatinine Est GFR ( Amer) Est GFR (Non-Af Amer) Glucose Calcium 6.5 L* Ionized Calcium Ney 1.05 L Phosphorus Magnesium Total Bilirubin AST ALT Alkaline Phosphatase Total Protein Albumin Urine Color YELLOW Urine Appearance CLEAR Urine pH 6.0 Ur Specific [place] 1.012 Urine Protein NEGATIVE Urine Glucose (UA) NEGATIVE Urine Ketones NEGATIVE Urine Blood SMALL H Urine Nitrite NEGATIVE Ur Leukocyte Esterase NEGATIVE Urine WBC (Auto) 4 Urine RBC (Auto) 3 08/16/17 08/16/17 05:15 05:15 WBC 6.1 RBC 2.77 L Hgb 9.6 L Hct 28.3 L MCV 102 H MCH 34.6 H MCHC 34.0 RDW 17.1 H Plt Count 70 L Seg Neutrophils % 63.4 Lymphocytes % 32.1 Monocytes % 2.7 L Eosinophils % 0.4 Basophils % 1.4 Absolute Neutrophils 3.9 Absolute Lymphocytes 2.0 Absolute Monocytes 0.2 Absolute Eosinophils 0.0 Absolute Basophils 0.1 Sodium 137.6 Potassium 3.9 Chloride 112 H Carbon Dioxide 25 Anion Gap 1 L BUN 11 Creatinine 0.55 Est GFR ( Amer) > 60 Est GFR (Non-Af Amer) > 60 Glucose 69 L Calcium 6.9 L* Ionized Calcium Ney Phosphorus 2.5 Magnesium 2.1 Total Bilirubin 0.4 AST 37 H ALT 55 H Alkaline Phosphatase 153 H Total Protein 3.1 L Albumin 1.2 L Urine Color Urine Appearance Urine pH Ur Specific [place] Urine Protein Urine Glucose (UA) Urine Ketones Urine Blood Urine Nitrite Ur Leukocyte Esterase Urine WBC (Auto) Urine RBC (Auto) Impressions: Venous Doppler Study 08/14/17 00:00 IMPRESSION: NO EVIDENCE DVT OR SVT IN EITHER LEG. Chest X-Ray 08/14/17 17:18 IMPRESSION: No pneumothorax. Bilateral infiltrates are suggested. Assessment & Plan - Diagnosis (1) Pneumonia Qualifiers: Pneumonia type: aspiration pneumonia Laterality: bilateral Lung location : lower lobe of lung Is this a current diagnosis for this admission?: Yes Plan: Concern for aspiration pneumonia or for atypical gram-negative organisms for this patient. Patient on day #2 of Levaquin and will continue this. Scheduled nebulized treatments. Incentive spirometry and flutter valve. Pending sputum culture. (2) UTI (urinary tract infection) Qualifiers: Urinary tract infection type: acute cystitis Hematuria presence: without hematuria Qualified Code(s): N30.00 - Acute cystitis without hematuria Is this a current diagnosis for this admission?: Yes Plan: Patient with pseudomonal UTI. Continue on Levaquin for 7 days (3) Decubitus ulcer of left buttock, stage 2 Is this a current diagnosis for this admission?: Yes Plan: Localized wound care. Patient's nutrition is exceptionally poor and I have concerns for healing send secondary to this. (4) Decubitus ulcer of right leg, stage 2 Is this a current diagnosis for this admission?: Yes Plan: Localized wound care. Patient's nutrition is exceptionally poor and I have concerns for healing send secondary to this. (5) Generalized edema Is this a current diagnosis for this admission?: Yes Plan: This is likely secondary to patient's severe hypoalbuminemia. Secondary to her diet and poor nutrition. Patient has history of gastric bypass leading to severe hypoalbuminemia (6) Sacral decubitus ulcer, stage II Is this a current diagnosis for this admission?: Yes (7) Thrombocytopenia Is this a current diagnosis for this admission?: Yes Plan: Hold anticoagulation Send hit antibodies Likely secondary to sepsis (8) Anxiety and depression Is this a current diagnosis for this admission?: Yes Plan: Continue Latuda and Ativan Patient's drug screen conspicuously negative for benzodiazepines (9) Chronic anemia Is this a current diagnosis for this admission?: Yes Plan: Secondary to her malabsorptive state. (10) GERD (gastroesophageal reflux disease) Qualifiers: Esophagitis presence: without esophagitis Qualified Code(s): K21.9 - Gastro -esophageal reflux disease without esophagitis Is this a current diagnosis for this admission?: Yes Plan: Patient had recent upper endoscopy for ulceration at the site of her anastomosis. Continue PPI and Pepcid (11) Generalized weakness Is this a current diagnosis for this admission?: Yes (12) Hemiparesis affecting left side as late effect of cerebrovascular accident Is this a current diagnosis for this admission?: Yes (13) Hypothyroidism Qualifiers: Hypothyroidism type: unspecified Qualified Code(s): E03.9 - Hypothyroidism , unspecified Is this a current diagnosis for this admission?: No Plan: Patient is not currently taking any thyroid replacement. Her studies are adequate. I am unsure if this is a past or current diagnosis. 08/14/17 08/15/17 17:15 05:00 TSH 0.95 Free T4 0.97 (14) Opiate dependence Qualifiers: Substance use status: with unspecified opioid-induced disorder Qualified Code(s): F11.29 - Opioid dependence with unspecified opioid-induced disorder Is this a current diagnosis for this admission?: Yes Plan: Low-dose oxycodone Coverage patient to wean from this. Lidoderm patch (15) Malnutrition compromising bodily function Is this a current diagnosis for this admission?: Yes Plan: Patient with severe protein calorie malnourishment secondary to underlying gastric bypass status. Consult dietary and place patient on supplements. Benaprotein 3 times daily. I have significant concerns that patient is unable to ambulate and/or heel secondary to this. (16) DM type 2 (diabetes mellitus, type 2) Qualifiers: Diabetes mellitus complication status: with other specified complication Diabetes mellitus termite exterminator helper insulin use: unspecified termite exterminator helper insulin use status Qualified Code(s): E11.69 - Type 2 diabetes mellitus with other specified complication Is this a current diagnosis for this admission?: Yes Plan: Unable to check hemoglobin A1c. Feel that this has resolved secondary to her profound malnourished state. Continue sliding-scale insulin Patient is not on any medications as an outpatient. - Time Time Spent with patient: 35 or more minutes Medications reviewed and adjusted accordingly: Yes Anticipated discharge: Acute Rehab - Inpatient Certification Based on my medical assessment, after consideration of the patient's comorbidities, presenting symptoms, or acuity I expect that the services needed warrant INPATIENT care.: Yes I certify that my determination is in accordance with my understanding of Medicare's requirements for reasonable and necessary INPATIENT services [42 CFR 412.3e].: Yes Medical Necessity: Need For Continuous Telemetry Monitoring, Risk of Complication if Not Cared For in Hospital Post Hospital Care: 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
[2017-08-16] MEDS: LEVOFLOXACIN 750 MG TABLET PO SCH (16:37)
[2017-08-16] MEDS: DOCUSATE SODIUM 100 MG CAPSULE PO SCH (17:07)
[2017-08-16] MEDS: BUMETANIDE INJ/PF 1 MG/4 ML SDV IV SCH (22:37)
[2017-08-16] MEDS: SENNOSIDES/DOCUSATE 8.6-50 MG 1 EACH TABLET PO SCH (22:40)
[2017-08-17] MEDS: OXYCODONE HCL IR 5 MG TABLET PO PRN ×3 (01:14→20:02)
[2017-08-17] MEDS: GABAPENTIN 300 MG CAPSULE PO SCH ×3 (05:30→22:26)
[2017-08-17] MEDS: LANSOPRAZOLE 30 MG TAB.RAP.DR PO SCH (08:30)
[2017-08-17] MEDS: CALCIUM CARBONATE 500 MG TAB.CHEW PO SCH ×4 (08:30→22:27)
[2017-08-17] MEDS: LURASIDONE HCL 40 MG TABLET PO SCH ×2 (08:31→17:00)
[2017-08-17] MEDS: BUMETANIDE INJ/PF 1 MG/4 ML SDV IV SCH (09:01)
[2017-08-17] MEDS: MULTIVITAMINS W-IRON TABLET, CHEWABLE PO SCH ×2 (09:02→17:01)
[2017-08-17] MEDS: CHOLECALCIFEROL (D3) 1,000 UNIT TABLET PO SCH (09:02)
[2017-08-17] MEDS: DOCUSATE SODIUM 100 MG CAPSULE PO SCH ×2 (09:03→17:00)
[2017-08-17] MEDS: NALOXEGOL 25 MG PO SCH (09:03)
[2017-08-17] MEDS: ASPIRIN 81 MG TABLET, ENT COATED PO SCH (09:03)
[2017-08-17] MEDS: CYANOCOBALAMIN (VITAMIN B-12) 1,000 MCG TABLET PO SCH (09:03)
[2017-08-17] MEDS: NYSTATIN TOPICAL POWDER 15 GM TP SCH ×2 (09:04→17:01)
[2017-08-17] MEDS: LIDOCAINE 5% (700 MG) TRANSDERMAL ADH..PATCH TP SCH (09:04)
[2017-08-17] MEDS: MEGESTROL ACETATE SUSP 400 MG/10 ML UDCUP PO SCH (09:04)
[2017-08-17] MEDS: MUPIROCIN 2% OINTMENT 22 GM TP SCH ×2 (09:05→17:01)
[2017-08-17 09:08] LABS: ABSOLUTE BASOPHILS # (AUTO) 0.1 10^3/uL (0.0-0.2); ABSOLUTE LYMPHOCYTES (AUTO) 2.2 10^3/uL (0.5-4.7); ABSOLUTE MONOCYTES (AUTO) 0.3 10^3/uL (0.1-1.4); ABSOLUTE NEUT (AUTO) 5.1 10^3/uL (1.7-8.2); BASOPHILS % (AUTO) 0.9 % (0-2); EOSINOPHILS % (AUTO) 0.6 % (0-6); HEMATOCRIT 30.7 % (36.0-47.0); HEMOGLOBIN 10.5 g/dL (12.0-15.5); HGB HCT DIFFERENCE 0.8; LYMPHOCYTES % (AUTO) 28.7 % (13-45); MEAN CORPUSCULAR HEMOGLOBIN 34.8 pg (27.0-33.4); MEAN CORPUSCULAR HGB CONC 34.1 g/dL (32.0-36.0); MEAN CORPUSCULAR VOLUME 102 fl (80-97); MONOCYTES % (AUTO) 3.6 % (3-13); RED BLOOD COUNT 3.01 10^6/uL (3.72-5.28); RED CELL DISTRIBUTION WIDTH 16.8 % (11.5-14.0); SEGMENTED NEUTROPHILS % (AUTO) 66.2 % (42-78); WHITE BLOOD COUNT 7.8 10^3/uL (4.0-10.5)
[2017-08-17 09:15] LABS: BLOOD UREA NITROGEN 10 mg/dL (7-20); CARBON DIOXIDE 28 mmol/L (22-30); CREATININE RESULT 0.63 mg/dL (0.52-1.25); GLUCOSE 69 mg/dL (75-110); POTASSIUM 3.6 mmol/L (3.6-5.0)
[2017-08-17 09:24] LABS: CHLORIDE 109 mmol/L (98-107); SODIUM 139.2 mmol/L (137-145)
[2017-08-17 09:27] LABS: ANION GAP 2 (5-19)
[2017-08-17 09:29] LABS: CALCIUM 6.8 mg/dL (8.4-10.2)
--- NOTE | 2017-08-17 09:32 | XCELERA REPORT ---
[address] [address] Transthoracic Echocardiogram Report Name: HILTON MI Age: 47 yrs Gender: Female : 1970 Patient Status: Inpatient Patient Location: [address] [place] [address] Study Date: 08/16/2017 01:36 PM Height: 61 in Weight: 130 lb BSA: 1.6 m2 Procedure: A complete two-dimensional transthoracic echocardiogram was performed (2D, M-mode, spectral and color flow Doppler). The study was technically difficult with many images being suboptimal in quality. Reason For Study: chf Ordering Physician: MAGALI PETERS Performed By: Fay Shah Interpretation Summary The left ventricular ejection fraction is preserved. There is borderline concentric left ventricular hypertrophy. Doppler measurements suggest pseudonormalized left ventricular relaxation, which is associated with grade II/IV or mild to moderate diastolic dysfunction The left ventricle is grossly normal size. Not all wall segments were well visualized. Regional wall motion abnormalities cannot be excluded due to limited visualization. The right ventricular systolic function is normal. The right atrium is normal in size The left atrial size is normal. There is a trace amount of mitral regurgitation There is no mitral valve stenosis. No aortic regurgitation is present. There is no aortic valve stenosis There is a trace or physiologic amount of tricuspid regurgitation Tricuspid regurgitation jet envelope not well defined to measure RV systolic pressure accurately. There is no pericardial effusion. The study was technically difficult with many images being suboptimal in quality. MMode/2D Measurements & Calculations RVDd: 1.8 cm LVIDd: 3.6 cm FS: 34.9 % Ao root diam: 2.5 cm IVSd: 0.85 cm LVIDs: 2.3 cm EDV(Teich): 53.0 ml LVPWd: 0.86 cm ESV(Teich): 18.5 ml Ao root area: 5.1 cm2 EF(Teich): 65.1 % LA dimension: 2.3 cm Doppler Measurements & Calculations MV E max valdemar: MV P1/2t max valdemar: Ao V2 max: LV V1 max P.3 cm/sec 94.3 cm/sec 107.5 cm/sec 3.9 mmHg MV A max valdemar: MV P1/2t: 38.7 msec Ao max PG: LV V1 max: 112.0 cm/sec 4.6 mmHg 98.2 cm/sec MV E/A: 0.81 MVA(P1/2t): 5.7 cm2 MV dec slope: 714.4 cm/sec2 PA V2 max: 91.3 cm/sec PA max P.3 mmHg Left Ventricle The left ventricle is grossly normal size. There is borderline concentric left ventricular hypertrophy. The left ventricular ejection fraction is preserved. Doppler measurements suggest pseudonormalized left ventricular relaxation, which is associated with grade II/IV or mild to moderate diastolic dysfunction. Not all wall segments were well visualized. Regional wall motion abnormalities cannot be excluded due to limited visualization. Right Ventricle The right ventricle is grossly normal size. There is normal right ventricular wall thickness. The right ventricular systolic function is normal. Atria The right atrium is normal in size. The left atrial size is normal. Interarterial septum not well visualized and not well dopplered. Cannot comment on ASD/PFO presence. Mitral Valve The mitral valve leaflets are sclerotic, but show no functional abnormalities. There is no mitral valve stenosis. There is a trace amount of mitral regurgitation. Aortic Valve The aortic valve is not well visualized secondary to technical limitations. There is no aortic valve stenosis. No aortic regurgitation is present. Tricuspid Valve The tricuspid valve is not well visualized secondary to technical limitations. There is no tricuspid stenosis. There is a trace or physiologic amount of tricuspid regurgitation. Tricuspid regurgitation jet envelope not well defined to measure RV systolic pressure accurately. Pulmonic Valve The pulmonic valve is not well visualized. Great Vessels The aortic root is not well visualized but is probably normal size. The inferior vena cava was not well visualized. Effusions There is no pericardial effusion. : MAGALI PETERS > Benitez Gabriel
[2017-08-17] MEDS ORDERED: POTASSIUM CHLORIDE 10 MEQ TABLET.SA PO ONE (15:11)
[2017-08-17] MEDS: LEVOFLOXACIN 750 MG TABLET PO SCH (15:17)
--- NOTE | 2017-08-17 15:21 | PDOC PROGRESS REPORT ---
Subjective Progress Note for:: 08/17/17 Subjective:: Patient seen earlier today on morning rounds. Seen with nursing staff present at bedside. Reports she is feeling significantly better today. Patient denies chest pain, shortness of breath, abdominal pain, nausea, vomiting , fevers, chills, diarrhea, constipation, headache. Still has significant edema despite diuresis Patient had resolution of her constipation Physical Exam Vital Signs: Temp Pulse Resp BP Pulse Ox 97.5 F 103 H 18 102/71 93 08/17/17 03:55 08/17/17 03:55 08/17/17 03:55 08/17/17 03:55 08/17/17 03:55 Intake & Output 08/16/17 08/17/17 08/18/17 06:59 06:59 06:59 Intake Total 1180 1710 Output Total 1000 1125 Balance 180 585 Exam: General: Chronically ill-appearing, pale, poorly nourished, awake alert and oriented x3, no acute respiratory distress HEENT: AT/NC, PERRL, EOMI, oropharynx is moist, pink, no scleral icterus, no conjunctival injection Neck: No JVD, trachea midline Chest: Clear to auscultation bilaterally, no wheezes rhonchi or rales CV: Regular rate and rhythm, normal S1 and S2, no rub or gallop; 2/6 sm rusb Abdomen: Soft, mildly diffusely tender to palpation, nondistended, active bowel sounds; no rebound, rigidity, or guarding Extremities: No cyanosis, clubbing; 2+edema Neuro: left hemiparesis; awake alert and oriented x3 Psych: Normal mood and affect Results Laboratory Results: 08/16/17 05:15 08/16/17 05:15 08/15/17 05:00 Calcium 6.5 L* Impressions: Venous Doppler Study 08/14/17 00:00 IMPRESSION: NO EVIDENCE DVT OR SVT IN EITHER LEG. Chest X-Ray 08/14/17 17:18 IMPRESSION: No pneumothorax. Bilateral infiltrates are suggested. Assessment & Plan - Diagnosis (1) Pneumonia Qualifiers: Pneumonia type: aspiration pneumonia Laterality: bilateral Lung location : lower lobe of lung Is this a current diagnosis for this admission?: Yes Plan: Concern for aspiration pneumonia or for atypical gram-negative organisms for this patient. Patient on day #3 of Levaquin and will continue this. Scheduled nebulized treatments. Incentive spirometry and flutter valve. Pending sputum culture. (2) UTI (urinary tract infection) Qualifiers: Urinary tract infection type: acute cystitis Hematuria presence: without hematuria Qualified Code(s): N30.00 - Acute cystitis without hematuria Is this a current diagnosis for this admission?: Yes Plan: Patient with pseudomonal UTI. On Levaquin day #3 of 7Day #3 of 7 (3) Decubitus ulcer of left buttock, stage 2 Is this a current diagnosis for this admission?: Yes Plan: Localized wound care. Patient's nutrition is exceptionally poor and I have concerns for healing send secondary to this. (4) Decubitus ulcer of right leg, stage 2 Is this a current diagnosis for this admission?: Yes (5) Generalized edema Is this a current diagnosis for this admission?: Yes Plan: This is likely secondary to patient's severe hypoalbuminemia. Secondary to her diet and poor nutrition. Patient has history of gastric bypass leading to severe hypoalbuminemia (6) Sacral decubitus ulcer, stage II Is this a current diagnosis for this admission?: Yes (7) Thrombocytopenia Is this a current diagnosis for this admission?: Yes Plan: Hold anticoagulation Send hit antibodies Likely secondary to sepsis improving after stopping heparin (8) Anxiety and depression Is this a current diagnosis for this admission?: Yes Plan: Continue Latuda and Ativan Patient's drug screen conspicuously negative for benzodiazepines (9) Chronic anemia Is this a current diagnosis for this admission?: Yes Plan: Secondary to her malabsorptive state. (10) GERD (gastroesophageal reflux disease) Qualifiers: Esophagitis presence: without esophagitis Qualified Code(s): K21.9 - Gastro -esophageal reflux disease without esophagitis Is this a current diagnosis for this admission?: Yes Plan: Patient had recent upper endoscopy for ulceration at the site of her anastomosis. Continue PPI and Pepcid (11) Generalized weakness Is this a current diagnosis for this admission?: Yes Plan: Out of bed to chair 3 times daily. Patient will need rehabilitation at baseline. (12) Hemiparesis affecting left side as late effect of cerebrovascular accident Is this a current diagnosis for this admission?: Yes (13) Hypothyroidism Qualifiers: Hypothyroidism type: unspecified Qualified Code(s): E03.9 - Hypothyroidism , unspecified Is this a current diagnosis for this admission?: No Plan: Patient is not currently taking any thyroid replacement. Her studies are adequate. I am unsure if this is a past or current diagnosis. 08/14/17 08/15/17 17:15 05:00 TSH 0.95 Free T4 0.97 (14) Opiate dependence Qualifiers: Substance use status: with unspecified opioid-induced disorder Qualified Code(s): F11.29 - Opioid dependence with unspecified opioid-induced disorder Is this a current diagnosis for this admission?: Yes Plan: Low-dose oxycodone Coverage patient to wean from this. Lidoderm patch Attempt to maximize patient's nonnarcotic analgesic regimen (15) Malnutrition compromising bodily function Is this a current diagnosis for this admission?: Yes Plan: Patient with severe protein calorie malnourishment secondary to underlying gastric bypass status. Appreciate dietary and patient on supplements. Benaprotein 3 times daily. I have significant concerns that patient is unable to ambulate and/or heel secondary to this. 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
[2017-08-17] MEDS: SENNOSIDES/DOCUSATE 8.6-50 MG 1 EACH TABLET PO SCH (22:26)
[2017-08-17] MEDS: AMITRIPTYLINE HCL 50 MG TABLET PO SCH (22:27)
[2017-08-18] MEDS ORDERED: GABAPENTIN 300 MG CAPSULE ONE (05:46)
[2017-08-18] MEDS: GABAPENTIN 300 MG CAPSULE PO SCH ×3 (05:55→21:05)
[2017-08-18] MEDS: LURASIDONE HCL 40 MG TABLET PO SCH ×2 (07:50→17:41)
[2017-08-18] MEDS: CALCIUM CARBONATE 500 MG TAB.CHEW PO SCH ×4 (07:50→21:05)
[2017-08-18] MEDS: LANSOPRAZOLE 30 MG TAB.RAP.DR PO SCH (08:24)
[2017-08-18] MEDS: OXYCODONE HCL IR 5 MG TABLET PO PRN ×2 (08:25→13:59)
[2017-08-18] MEDS: ASPIRIN 81 MG TABLET, ENT COATED PO SCH (10:58)
[2017-08-18] MEDS: DOCUSATE SODIUM 100 MG CAPSULE PO SCH ×2 (10:59→17:41)
[2017-08-18] MEDS: MULTIVITAMINS W-IRON TABLET, CHEWABLE PO SCH ×2 (10:59→17:40)
[2017-08-18] MEDS: MUPIROCIN 2% OINTMENT 22 GM TP SCH ×2 (10:59→17:42)
[2017-08-18] MEDS: LIDOCAINE 5% (700 MG) TRANSDERMAL ADH..PATCH TP SCH (11:00)
[2017-08-18] MEDS: NALOXEGOL 25 MG PO SCH (11:01)
[2017-08-18] MEDS: MEGESTROL ACETATE SUSP 400 MG/10 ML UDCUP PO SCH (11:03)
[2017-08-18] MEDS: NYSTATIN TOPICAL POWDER 15 GM TP SCH ×2 (11:04→17:42)
[2017-08-18] MEDS: CYANOCOBALAMIN (VITAMIN B-12) 1,000 MCG TABLET PO SCH (11:34)
[2017-08-18] MEDS: CHOLECALCIFEROL (D3) 1,000 UNIT TABLET PO SCH (11:35)
--- NOTE | 2017-08-18 13:10 | PDOC PROGRESS REPORT ---
Subjective Progress Note for:: 08/18/17 Subjective:: Patient reports her stools are kind of loose today. She reports she is eating more than previous. She denies any new complaints. Patient denies chest pain, shortness of breath, abdominal pain, nausea, vomiting , fevers, chills, diarrhea, constipation, headache, new onset weakness. Physical Exam Vital Signs: Temp Pulse Resp BP Pulse Ox 98.9 F 107 H 16 104/61 94 08/18/17 06:00 08/18/17 06:00 08/18/17 06:00 08/18/17 06:00 08/18/17 06:00 Intake & Output 08/17/17 08/18/17 08/19/17 06:59 06:59 06:59 Intake Total 1710 50 Output Total 1125 Balance 585 50 Exam: General: Chronically ill-appearing, poorly nourished, awake alert and oriented x3, no acute respiratory distress HEENT: AT/NC, PERRL, EOMI, oropharynx is moist, pink, no scleral icterus, no conjunctival injection Neck: No JVD, trachea midline Chest: Clear to auscultation bilaterally, no wheezes rhonchi or rales CV: Regular rate and rhythm, normal S1 and S2, no rub or gallop; 2/6 sm rusb Abdomen: Soft, mildly diffusely tender to palpation, nondistended, active bowel sounds; no rebound, rigidity, or guarding Extremities: No cyanosis, clubbing; 3+edema Neuro: left hemiparesis; awake alert and oriented x3 Psych: Normal mood and affect Results Laboratory Results: 08/17/17 08:45 08/17/17 08:45 08/17/17 08/17/17 08:45 08:45 WBC 7.8 RBC 3.01 L Hgb 10.5 L Hct 30.7 L MCV 102 H MCH 34.8 H MCHC 34.1 RDW 16.8 H Plt Count 91 L Seg Neutrophils % 66.2 Lymphocytes % 28.7 Monocytes % 3.6 Eosinophils % 0.6 Basophils % 0.9 Absolute Neutrophils 5.1 Absolute Lymphocytes 2.2 Absolute Monocytes 0.3 Absolute Eosinophils 0.0 Absolute Basophils 0.1 Sodium 139.2 Potassium 3.6 Chloride 109 H Carbon Dioxide 28 Anion Gap 2 L BUN 10 Creatinine 0.63 Est GFR ( Amer) > 60 Est GFR (Non-Af Amer) > 60 Glucose 69 L Calcium 6.8 L* Impressions: Venous Doppler Study 08/14/17 00:00 IMPRESSION: NO EVIDENCE DVT OR SVT IN EITHER LEG. Chest X-Ray 08/14/17 17:18 IMPRESSION: No pneumothorax. Bilateral infiltrates are suggested. Assessment & Plan - Diagnosis (1) Pneumonia Qualifiers: Pneumonia type: aspiration pneumonia Laterality: bilateral Lung location : lower lobe of lung Is this a current diagnosis for this admission?: Yes Plan: Concern for aspiration pneumonia or for atypical gram-negative organisms for this patient. Patient on day #4/10 of Levaquin. Transition to prn nebulized treatments. Incentive spirometry and flutter valve. (2) UTI (urinary tract infection) Qualifiers: Urinary tract infection type: acute cystitis Hematuria presence: without hematuria Qualified Code(s): N30.00 - Acute cystitis without hematuria Is this a current diagnosis for this admission?: Yes Plan: Patient with pseudomonal UTI. On Levaquin day #4. (3) Decubitus ulcer of left buttock, stage 2 Is this a current diagnosis for this admission?: Yes (4) Decubitus ulcer of right leg, stage 2 Is this a current diagnosis for this admission?: Yes (5) Generalized edema Is this a current diagnosis for this admission?: Yes Plan: This is likely secondary to patient's severe hypoalbuminemia. Secondary to her diet and poor nutrition. Patient has history of gastric bypass leading to severe hypoalbuminemia (6) Sacral decubitus ulcer, stage II Is this a current diagnosis for this admission?: Yes (7) Thrombocytopenia Is this a current diagnosis for this admission?: Yes Plan: Has been improving. hold anticoagulation Pending hit antibodies Likely secondary to sepsis (8) Anxiety and depression Is this a current diagnosis for this admission?: Yes Plan: Continue Latuda and Ativan Patient's drug screen conspicuously negative for benzodiazepines (9) Chronic anemia Is this a current diagnosis for this admission?: Yes Plan: Secondary to her malabsorptive state. (10) GERD (gastroesophageal reflux disease) Qualifiers: Esophagitis presence: without esophagitis Qualified Code(s): K21.9 - Gastro -esophageal reflux disease without esophagitis Is this a current diagnosis for this admission?: Yes Plan: Patient had recent upper endoscopy for ulceration at the site of her anastomosis. Continue PPI and Pepcid (11) Generalized weakness Is this a current diagnosis for this admission?: Yes (12) Hemiparesis affecting left side as late effect of cerebrovascular accident Is this a current diagnosis for this admission?: Yes (13) Hypothyroidism Qualifiers: Hypothyroidism type: unspecified Qualified Code(s): E03.9 - Hypothyroidism , unspecified Is this a current diagnosis for this admission?: No Plan: Patient is not currently taking any thyroid replacement. Her studies are adequate. I am unsure if this is a past or current diagnosis. 08/14/17 08/15/17 17:15 05:00 TSH 0.95 Free T4 0.97 (14) Opiate dependence Qualifiers: Substance use status: with unspecified opioid-induced disorder Qualified Code(s): F11.29 - Opioid dependence with unspecified opioid-induced disorder Is this a current diagnosis for this admission?: Yes Plan: Low-dose oxycodone Coverage patient to wean from this. Lidoderm patch Attempt to maximize patient's nonnarcotic analgesic regimen (15) Malnutrition compromising bodily function Is this a current diagnosis for this admission?: Yes Plan: Patient with severe protein calorie malnourishment secondary to underlying gastric bypass status. Appreciate dietary and patient on supplements. Benaprotein 3 times daily. I have significant concerns that patient is unable to ambulate and/or heel secondary to this. - Time Time Spent with patient: 25-34 minutes Medications reviewed and adjusted accordingly: Yes Anticipated discharge: Acute Rehab Within: when bed available
[2017-08-18] MEDS: LEVOFLOXACIN 750 MG TABLET PO SCH (15:43)
[2017-08-18] MEDS: AMITRIPTYLINE HCL 50 MG TABLET PO SCH (21:05)
[2017-08-19] MEDS: OXYCODONE HCL IR 5 MG TABLET PO PRN ×4 (04:07→20:01)
[2017-08-19] MEDS: GABAPENTIN 300 MG CAPSULE PO SCH ×3 (05:45→21:37)
[2017-08-19] MEDS: CALCIUM CARBONATE 500 MG TAB.CHEW PO SCH ×4 (08:18→21:37)
[2017-08-19] MEDS: LANSOPRAZOLE 30 MG TAB.RAP.DR PO SCH (08:18)
[2017-08-19] MEDS: LURASIDONE HCL 40 MG TABLET PO SCH ×2 (08:19→16:15)
[2017-08-19] MEDS: CYANOCOBALAMIN (VITAMIN B-12) 1,000 MCG TABLET PO SCH (09:51)
[2017-08-19] MEDS: CHOLECALCIFEROL (D3) 1,000 UNIT TABLET PO SCH (09:52)
[2017-08-19] MEDS: ASPIRIN 81 MG TABLET, ENT COATED PO SCH (09:53)
[2017-08-19] MEDS: LIDOCAINE 5% (700 MG) TRANSDERMAL ADH..PATCH TP SCH (09:55)
[2017-08-19] MEDS: MEGESTROL ACETATE SUSP 400 MG/10 ML UDCUP PO SCH (09:55)
[2017-08-19] MEDS: MULTIVITAMINS W-IRON TABLET, CHEWABLE PO SCH ×2 (09:56→18:56)
[2017-08-19] MEDS: MUPIROCIN 2% OINTMENT 22 GM TP SCH ×2 (09:56→18:56)
[2017-08-19] MEDS: NYSTATIN TOPICAL POWDER 15 GM TP SCH ×2 (09:57→18:55)
[2017-08-19] MEDS: DOCUSATE SODIUM 100 MG CAPSULE PO SCH ×2 (09:58→18:57)
[2017-08-19] MEDS: NALOXEGOL 25 MG PO SCH (10:00)
[2017-08-19] MEDS: LEVOFLOXACIN 750 MG TABLET PO SCH (16:15)
--- NOTE | 2017-08-19 17:00 | PDOC PROGRESS REPORT ---
Subjective Progress Note for:: 08/19/17 Subjective:: Seen with nurse at bedside. Patient sitting in chair. Nursing reports patient did several small walks yesterday. Patient reports diarrhea. She reports she is eating more than previous. She denies any new complaints. Patient denies chest pain, shortness of breath, abdominal pain, nausea, vomiting , fevers, chills, constipation, headache, new onset weakness. Physical Exam Vital Signs: Temp Pulse Resp BP Pulse Ox 99.1 F 100 18 92/60 L 97 08/19/17 03:34 08/19/17 03:34 08/19/17 03:34 08/19/17 03:34 08/19/17 03:34 Intake & Output 08/18/17 08/19/17 08/20/17 06:59 06:59 06:59 Intake Total 50 Balance 50 Exam: General: Chronically ill-appearing, awake alert and oriented x3, no acute respiratory distress HEENT: AT/NC, PERRL, EOMI, oropharynx is moist, pink, no scleral icterus, no conjunctival injection Neck: No JVD, trachea midline Chest: Clear to auscultation bilaterally, no wheezes rhonchi or rales CV: Regular rate and rhythm, normal S1 and S2, no rub or gallop; 2/6 sm rusb Abdomen: Soft, mildly diffusely tender to palpation, nondistended, active bowel sounds; no rebound, rigidity, or guarding Extremities: No cyanosis, clubbing; 1+edema Neuro: left hemiparesis; awake alert and oriented x3 Psych: Normal mood and affect Results Laboratory Results: 08/17/17 08:45 08/17/17 08:45 Impressions: Venous Doppler Study 08/14/17 00:00 IMPRESSION: NO EVIDENCE DVT OR SVT IN EITHER LEG. Chest X-Ray 08/14/17 17:18 IMPRESSION: No pneumothorax. Bilateral infiltrates are suggested. Assessment & Plan - Diagnosis (1) Pneumonia Qualifiers: Pneumonia type: aspiration pneumonia Laterality: bilateral Lung location : lower lobe of lung Is this a current diagnosis for this admission?: Yes Plan: Concern for aspiration pneumonia or for atypical gram-negative organisms for this patient. Patient on day #5/10 of Levaquin. Transition to prn nebulized treatments. Incentive spirometry and flutter valve. (2) UTI (urinary tract infection) Qualifiers: Urinary tract infection type: acute cystitis Hematuria presence: without hematuria Qualified Code(s): N30.00 - Acute cystitis without hematuria Is this a current diagnosis for this admission?: Yes Plan: Patient with pseudomonal UTI. On Levaquin day #5/7. (3) Decubitus ulcer of left buttock, stage 2 Is this a current diagnosis for this admission?: Yes (4) Decubitus ulcer of right leg, stage 2 Is this a current diagnosis for this admission?: Yes (5) Generalized edema Is this a current diagnosis for this admission?: Yes Plan: This is likely secondary to patient's severe hypoalbuminemia. Secondary to her diet and poor nutrition. Patient has history of gastric bypass leading to severe hypoalbuminemia (6) Sacral decubitus ulcer, stage II Is this a current diagnosis for this admission?: Yes (7) Thrombocytopenia Is this a current diagnosis for this admission?: Yes (8) Anxiety and depression Is this a current diagnosis for this admission?: Yes (9) Chronic anemia Is this a current diagnosis for this admission?: Yes (10) GERD (gastroesophageal reflux disease) Qualifiers: Esophagitis presence: without esophagitis Qualified Code(s): K21.9 - Gastro -esophageal reflux disease without esophagitis Is this a current diagnosis for this admission?: Yes Plan: Patient had recent upper endoscopy for ulceration at the site of her anastomosis. Continue PPI and Pepcid (11) Generalized weakness Is this a current diagnosis for this admission?: Yes (12) Hemiparesis affecting left side as late effect of cerebrovascular accident Is this a current diagnosis for this admission?: Yes (13) Hypothyroidism Qualifiers: Hypothyroidism type: unspecified Qualified Code(s): E03.9 - Hypothyroidism , unspecified Is this a current diagnosis for this admission?: No Plan: Patient is not currently taking any thyroid replacement. Her studies are adequate. I am unsure if this is a past or current diagnosis. 08/14/17 08/15/17 17:15 05:00 TSH 0.95 Free T4 0.97 (14) Opiate dependence Qualifiers: Substance use status: with unspecified opioid-induced disorder Qualified Code(s): F11.29 - Opioid dependence with unspecified opioid-induced disorder Is this a current diagnosis for this admission?: Yes (15) Malnutrition compromising bodily function Is this a current diagnosis for this admission?: Yes Plan: Patient with severe protein calorie malnourishment secondary to underlying gastric bypass status. Appreciate dietary and patient on supplements. Benaprotein 3 times daily. I have significant concerns that patient is unable to ambulate and/or heel secondary to this. - Time Time Spent with patient: 25-34 minutes Medications reviewed and adjusted accordingly: Yes Anticipated discharge: Acute Rehab Within: when bed available
[2017-08-19] MEDS: AMITRIPTYLINE HCL 50 MG TABLET PO SCH (21:37)
[2017-08-20] MEDS: OXYCODONE HCL IR 5 MG TABLET PO PRN ×4 (00:19→16:18)
[2017-08-20] MEDS: GABAPENTIN 300 MG CAPSULE PO SCH ×2 (06:09→14:17)
[2017-08-20] MEDS: LIDOCAINE 5% (700 MG) TRANSDERMAL ADH..PATCH TP SCH (09:33)
[2017-08-20] MEDS: MEGESTROL ACETATE SUSP 400 MG/10 ML UDCUP PO SCH (09:33)
[2017-08-20] MEDS: MULTIVITAMINS W-IRON TABLET, CHEWABLE PO SCH (09:33)
[2017-08-20] MEDS: LURASIDONE HCL 40 MG TABLET PO SCH ×2 (09:33→16:18)
[2017-08-20] MEDS: DOCUSATE SODIUM 100 MG CAPSULE PO SCH (09:33)
[2017-08-20] MEDS: CYANOCOBALAMIN (VITAMIN B-12) 1,000 MCG TABLET PO SCH (09:33)
[2017-08-20] MEDS: ASPIRIN 81 MG TABLET, ENT COATED PO SCH (09:33)
[2017-08-20] MEDS: CHOLECALCIFEROL (D3) 1,000 UNIT TABLET PO SCH (09:33)
[2017-08-20] MEDS: CALCIUM CARBONATE 500 MG TAB.CHEW PO SCH ×2 (09:33→14:17)
[2017-08-20] MEDS: LANSOPRAZOLE 30 MG TAB.RAP.DR PO SCH (09:33)
[2017-08-20] MEDS: MUPIROCIN 2% OINTMENT 22 GM TP SCH (09:34)
[2017-08-20] MEDS: NYSTATIN TOPICAL POWDER 15 GM TP SCH (09:34)
--- NOTE | 2017-08-20 09:44 | PDOC TRANSFER SUMMARY ---
General - Admit/Disc Date/PCP Admission Date/Primary Care Provider: 08/14/17 21:20 HILTON MORSE PA-C Discharge Date: 08/20/17 - Discharge Diagnosis (1) Pneumonia Is this a current diagnosis for this admission?: Yes (2) UTI (urinary tract infection) Is this a current diagnosis for this admission?: Yes (3) Decubitus ulcer of left buttock, stage 2 Is this a current diagnosis for this admission?: Yes (4) Decubitus ulcer of right leg, stage 2 Is this a current diagnosis for this admission?: Yes (5) Generalized edema Is this a current diagnosis for this admission?: Yes (6) Sacral decubitus ulcer, stage II Is this a current diagnosis for this admission?: Yes (7) Thrombocytopenia Is this a current diagnosis for this admission?: Yes (8) Anxiety and depression Is this a current diagnosis for this admission?: Yes (9) Chronic anemia Is this a current diagnosis for this admission?: Yes (10) GERD (gastroesophageal reflux disease) Is this a current diagnosis for this admission?: Yes (11) Generalized weakness Is this a current diagnosis for this admission?: Yes (12) Hemiparesis affecting left side as late effect of cerebrovascular accident Is this a current diagnosis for this admission?: Yes (13) Hypothyroidism Is this a current diagnosis for this admission?: No (14) Opiate dependence Is this a current diagnosis for this admission?: Yes (15) Malnutrition compromising bodily function Is this a current diagnosis for this admission?: Yes - Additional Information Resuscitation Status: Full Code Discharge Diet: Regular Discharge Activity: Activity As Tolerated, Slowly Increase Activity, Supervised Activity Home Medications: Aspirin [Aspirin EC] 81 mg PO DAILY 08/14/17 Esomeprazole Magnesium [Nexium] 40 mg PO QAM 08/14/17 Gabapentin [Neurontin 300 mg Capsule] 300 mg PO Q8 08/14/17 Lurasidone HCl [Latuda] 40 mg PO BID 08/14/17 Mupirocin [Bactroban 2% Ointment 22 gm] 1 applic TP BID 08/14/17 Naloxegol Oxalate [Movantik 25 mg Tablet] 25 mg PO DAILY 08/14/17 Amitriptyline HCl [Elavil 50 mg Tablet] 50 mg PO QHS #30 tablet 08/20/17 Calcium Carbonate [Tums Chewable 500 mg Tab.chew] 1,000 mg PO MEALSHS tab.chew 08/20/17 Cholecalciferol (Vitamin D3) [Vitamin D3 1000 Unit Tablet] 1,000 unit PO DAILY tablet 08/20/17 Cyanocobalamin (Vitamin B-12) [Vitamin B-12 1000 mcg Tablet] 1,000 mcg PO DAILY tablet 08/20/17 Levofloxacin [Levaquin 750 mg Tablet] 750 mg PO Q4PM #4 tablet 08/20/17 Lidocaine [Lidoderm 5% (700 mg) Transdermal Patch] 2 patch TP DAILY #60 adh..patch 08/20/17 Lorazepam [Ativan 1 mg Tablet] 1 mg PO Q8HP PRN #30 tablet 08/20/17 Megestrol Acetate [Megace Ana 400 mg/10 ml Udcup] 400 mg PO DAILY #30 udc 08/20 Multivitamins W-Iron [Flintstones Chewable Multivit W/Fe Tab] 2 tab PO BID tab.chew 08/20/17 Nystatin [Mycostatin Topical Powder 15 gm] 1 applic TP BID bottle 08/20/17 Oxycodone HCl [Oxy-Ir 5 mg Tablet] 5 mg PO Q4HP PRN #18 tablet 08/20/17 History of Present Illness Admission Date/PCP: 08/14/17 21:20 HILTON MORSE PA-C History of Present Illness: HILTON MI is a 47 year old female without known underlying pulmonary disease, including asthma, COPD, or obstructive sleep apnea, who presents to the emergency room for evaluation of a 2 week history of above complaint. Patient has been discussed with emergency room physician who evaluated the patient. She has had nausea, but no vomiting. No cough. No fever or chills. When I asked her if she were able to walk, she stated yes with assistance. However, upon completion of my physical exam, it was obvious that patient had been bedbound for some time now. Upon further questioning, patient states she had not been able to walk for "several months." Lives at home, with close family follow-up. Prior stroke several years ago, which has left her with left-sided weakness. No prior seizure. Complaining of stinging discomfort at the site of decubitus ulcers on her sacrum , left buttock, and right calf. Describes alternating breast swelling for some time now. Describes lower extremity swelling, also for some time now. No history of pulmonary embolus or DVT. Hospitalized on our service May 10 through 12 May this year with discharge diagnoses including altered mental status, generalized weakness, hypotension, urinary tract infection, and acute sinusitis. Discharge summary has been reviewed. Admitted to our service August 18, 2015, with admission diagnoses including acute focal neurologic deficit, with aphasia and acute on chronic left hemiparesis, back to baseline at the time of admission. History and physical has been reviewed. Hospital Course Hospital Course: Patient was admitted to [facility] and placed on broad spectrum antibiotics, scheduled nebulized treatments, and IV fluids. Patient rapidly improved from a respiratory standpoint. Patient was found to have a UTI with pseudomonas and was transitioned to Levaquin for both her pseudomonal UTI and her aspiration pneumonia. Patient's initial encephalopathy improved with holding certain medications. Patient additionally was constipated which improved with multiple cathartics. Patient's chronic pain was controlled while decreasing her baseline pain medications. Patient's edema improved with Unaboot. Patient was found to be profoundly hypoalbuminemic secondary to her prior gastric bypass and noncompliance with her diet. Dietary was consulted. Patient started taking in more protein through benaprotein and ensure clear. Patient worked with physical therapy and was found to be profoundly weak. She does have residual left-sided weakness from prior CVA. It was determined that she would need rehabilitation. Patient was accepted to rehab. Patient is doing well and stable to go to rehab for strength improvement. Physical Exam Vital Signs: Temp Pulse Resp BP Pulse Ox 99.1 F 98 16 111/82 97 08/19/17 23:15 08/19/17 23:15 08/19/17 23:15 08/19/17 23:15 08/19/17 23:15 Intake & Output 08/19/17 08/20/17 08/21/17 06:59 06:59 06:59 Intake Total 859 Balance 859 Exam: General: Chronically ill-appearing, awake alert and oriented x3, no acute respiratory distress HEENT: AT/NC, PERRL, EOMI, oropharynx is moist, pink, no scleral icterus, no conjunctival injection Neck: No JVD, trachea midline Chest: Clear to auscultation bilaterally, no wheezes rhonchi or rales CV: Regular rate and rhythm, normal S1 and S2, no rub or gallop; 2/6 sm rusb Abdomen: Soft, NTTP, nondistended, active bowel sounds; no rebound, rigidity, or guarding Extremities: No cyanosis, clubbing; 1+edema Neuro: left hemiparesis; awake alert and oriented x3 Psych: Normal mood and affect Results Laboratory Results: 08/17/17 08:45 08/17/17 08:45 Impressions: Venous Doppler Study 08/14/17 00:00 IMPRESSION: NO EVIDENCE DVT OR SVT IN EITHER LEG. Chest X-Ray 08/14/17 17:18 IMPRESSION: No pneumothorax. Bilateral infiltrates are suggested. Transfer Plan - Time Spent with Patient Time spent with patient: Less than 30 Minutes Qualifiers PATEINT BEING DISCHARGED WITH ANY OF THE FOLLOWING DIAGNOSIS?: No Plan Time Spent: Less than 30 Minutes
[2017-08-20] MEDS: NALOXEGOL 25 MG PO SCH (10:00)
[2017-08-20 15:53] VITALS: BP 103/72
[2017-08-20] MEDS: LEVOFLOXACIN 750 MG TABLET PO SCH (16:19)
== END 2017-08-20 17:25 | DRG 177 ==
LOC: ER 14:28 → EH 19:37 → UNDOADMIN 19:37 → EH 21:20 → 3N 21:33 → 2N 08-17 23:35
PROVIDERS: ADMIT Family Medicine; ATTEND Family Medicine
PROC: 02HV33Z Insertion of Infusion Device into Superior Vena Cava, Percutaneous Approach (ICD-10-PCS; principal; 2017-08-14)
PROC: 3E0F73Z Introduction of Anti-inflammatory into Respiratory Tract, Via Natural or Artificial Opening (ICD-10-PCS; 2017-08-15)
DX: J69.0 Pneumonitis due to inhalation of food and vomit (principal); E43 Unspecified severe protein-calorie malnutrition; I69.954 Hemiplegia and hemiparesis following unspecified cerebrovascular disease affecting left non-dominant side; N30.00 Acute cystitis without hematuria; Z51.5 Encounter for palliative care; L89.322 Pressure ulcer of left buttock, stage 2; L89.892 Pressure ulcer of other site, stage 2; L89.152 Pressure ulcer of sacral region, stage 2; F32.9 Major depressive disorder, single episode, unspecified; K21.9 Gastro-esophageal reflux disease without esophagitis; R53.1 Weakness; E03.9 Hypothyroidism, unspecified; Z68.24 Body mass index [BMI] 24.0-24.9, adult; B96.5 Pseudomonas (aeruginosa) (mallei) (pseudomallei) as the cause of diseases classified elsewhere; E88.09 Other disorders of plasma-protein metabolism, not elsewhere classified; I10 Essential (primary) hypertension; F31.9 Bipolar disorder, unspecified; M19.90 Unspecified osteoarthritis, unspecified site; F41.1 Generalized anxiety disorder; D53.9 Nutritional anemia, unspecified; E11.69 Type 2 diabetes mellitus with other specified complication; F11.29 Opioid dependence with unspecified opioid-induced disorder; D69.59 Other secondary thrombocytopenia; E87.6 Hypokalemia; E83.51 Hypocalcemia; Z79.899 Other long term (current) drug therapy; Z74.01 Bed confinement status; Z98.84 Bariatric surgery status; Z91.15 Patient's noncompliance with renal dialysis; Z79.82 Long term (current) use of aspirin; Z60.2 Problems related to living alone; Z88.0 Allergy status to penicillin; Z90.49 Acquired absence of other specified parts of digestive tract; Z90.710 Acquired absence of both cervix and uterus; Z83.3 Family history of diabetes mellitus; Z82.49 Family history of ischemic heart disease and other diseases of the circulatory system; Z83.6 Family history of other diseases of the respiratory system
CPT/HCPCS: 36415; 71010; 80048; 80053; 80307; 81001; 82330; 82962; 83036; 83605; 83690; 83735; 84100; 84439; 84443; 84484; 84703; 85025; 86022; 87040; 87086; 87088; 87186; 87493; 93005; 93010; 93306; 93970; 94667; 94668; 94799; 96361; 96365; 96368; 96375; 99285; C1751; G8978-GP; G8979-GP; G8996-GN; G8997-GN; G8998-GN; J0456; J0610; J0696; J1940; J3010; J3370; J3475; J3480; J3490; J7030; J7060

== ENCOUNTER 2017-10-08 14:04 | Emergency (ER) | payer MEDICARE, MEDICAID ==
--- NOTE | 2017-10-08 14:38 | ER Document Report ---
ED Medical Screen (RME) - General Chief Complaint: Swelling Stated Complaint: BODY IS SWELLING Time Seen by Provider: 10/08/17 14:36 Notes: Patient has a history of hepatic encephalopathy and opioid dependence. She presents from her primary care physician's office for diffuse anasarca. She states she has felt very weak. She also states she has a rash in her vaginal area. TRAVEL OUTSIDE OF THE [place] IN LAST 30 DAYS: No - Related Data Allergies/Adverse Reactions: cilastatin [From Primaxin IV] Allergy (Intermediate, Verified 10/08/17 14:18) Facial swelling imipenem [From Primaxin IV] Allergy (Intermediate, Verified 10/08/17 14:18) Facial swelling Penicillins Allergy (Verified 10/08/17 14:18) Past Medical History - Social History Chew tobacco use (# tins/day): No Frequency of alcohol use: None Drug Abuse: None - Past Medical History Cardiac Medical History: Reports: Hx Hypertension Pulmonary Medical History: Reports: Hx Pneumonia Denies: Hx Asthma, Hx COPD, Hx Sleep Apnea Neurological Medical History: Reports: Hx Cerebrovascular Accident Endocrine Medical History: Reports: Hx Diabetes Mellitus Type 2. Denies: Hx Hyperthyroidism, Hx Hypothyroidism Renal/ Medical History: Denies: Hx Peritoneal Dialysis GI Medical History: Reports: Hx Gastroesophageal Reflux Disease, Hx Ulcer, Hx Endoscopy. Denies: Hx Cirrhosis, Hx Hepatitis Musculoskeltal Medical History: Reports Hx Arthritis Psychiatric Medical History: Reports: Hx Anxiety, Hx Bipolar Disorder, Hx Depression, Hx Schizophrenia Infectious Medical History: Denies: Hx Hepatitis Past Surgical History: Reports: Hx Abdominal Surgery - gastric bypass, reversal , Hx Cholecystectomy, Hx Gastric Bypass Surgery, Hx Hysterectomy, Hx Orthopedic Surgery - LLE, left jaw - Immunizations Immunizations up to date: Yes Hx Diphtheria, Pertussis, Tetanus Vaccination: Yes History of Influenza Vaccine for 08/2017 - 01/2018 Season: No Physical Exam - Vital signs Vitals: Temp Pulse Resp BP Pulse Ox 98.9 F 102 H 12 109/86 H 100 10/08/17 14:12 10/08/17 14:12 10/08/17 14:12 10/08/17 14:12 10/08/17 14:12 Course - Vital Signs Vital signs: Temp Pulse Resp BP Pulse Ox 98.9 F 102 H 12 109/86 H 100 10/08/17 14:12 10/08/17 14:12 10/08/17 14:12 10/08/17 14:12 10/08/17 14:12
--- NOTE | 2017-10-08 15:30 | ER Document Report ---
ED General - General Mode of Arrival: Ambulatory Information source: Patient TRAVEL OUTSIDE OF THE [place] IN LAST 30 DAYS: No - HPI Patient complains to provider of: Lower extremity swelling Onset: Other - 4 days ago Associated symptoms: Other - see notes above <LALA LOWE - Last Filed: 10/08/17 17:30> <DARIO ALVARADO - Last Filed: 10/08/17 23:36> - General Chief Complaint: Swelling Stated Complaint: BODY IS SWELLING Time Seen by Provider: 10/08/17 14:36 Notes: 47 year old female with history of hepatic encephalopathy and anasarca presents to the ED complaining of bilateral lower extremity swelling that started 4 days ago and has been gradually worsening. Patient was discharged from a residential 3 weeks ago following an ED admission on 09/02/2017 for a hepatic encephalopathic coma. Patient reports that her legs are more swollen than what they normally are. PCP: Hilton Fuchs (LALA LOWE) - Related Data Allergies/Adverse Reactions: cilastatin [From Primaxin IV] Allergy (Intermediate, Verified 10/08/17 14:18) Facial swelling imipenem [From Primaxin IV] Allergy (Intermediate, Verified 10/08/17 14:18) Facial swelling Penicillins Allergy (Verified 10/08/17 14:18) Past Medical History - General Information source: Patient - Social History Smoking Status: Current Every Day Smoker Chew tobacco use (# tins/day): No Frequency of alcohol use: None Drug Abuse: None Family History: DM, Hypertension Patient has suicidal ideation: No Patient has homicidal ideation: No - Past Medical History Cardiac Medical History: Reports: Hx Hypertension Pulmonary Medical History: Reports: Hx Pneumonia Denies: Hx Asthma, Hx COPD, Hx Sleep Apnea Neurological Medical History: Reports: Hx Cerebrovascular Accident Endocrine Medical History: Reports: Hx Diabetes Mellitus Type 2. Denies: Hx Hyperthyroidism, Hx Hypothyroidism Renal/ Medical History: Denies: Hx Peritoneal Dialysis GI Medical History: Reports: Hx Gastroesophageal Reflux Disease, Hx Ulcer, Hx Endoscopy, Other - Hepatic encephalopathy. Denies: Hx Cirrhosis, Hx Hepatitis Musculoskeltal Medical History: Reports Hx Arthritis Psychiatric Medical History: Reports: Hx Anxiety, Hx Bipolar Disorder, Hx Depression, Hx Schizophrenia Infectious Medical History: Denies: Hx Hepatitis Past Surgical History: Reports: Hx Abdominal Surgery - gastric bypass, reversal , Hx Cholecystectomy, Hx Gastric Bypass Surgery, Hx Hysterectomy, Hx Orthopedic Surgery - LLE, left jaw - Immunizations Immunizations up to date: Yes Hx Diphtheria, Pertussis, Tetanus Vaccination: Yes <LALA OLWE - Last Filed: 10/08/17 17:30> Review of Systems - Review of Systems Constitutional: No symptoms reported EENT: No symptoms reported Cardiovascular: No symptoms reported Respiratory: No symptoms reported Gastrointestinal: No symptoms reported Genitourinary: No symptoms reported Female Genitourinary: No symptoms reported Musculoskeletal: See HPI, Leg swelling - bilaterally Skin: No symptoms reported Hematologic/Lymphatic: No symptoms reported Neurological/Psychological: No symptoms reported -: Yes All other systems reviewed and negative <LALA LOWE - Last Filed: 10/08/17 17:30> Physical Exam - General General appearance: Alert In distress: None - HEENT Head: Normocephalic, Atraumatic Eyes: Normal Extraocular movements intact: Yes Pupils: PERRL - Respiratory Respiratory status: No respiratory distress Breath sounds: Normal - Cardiovascular Rhythm: Regular Heart sounds: Normal auscultation - Abdominal Inspection: Normal - Back Back: Other - pre-sacral edema. No: Normal - Extremities General upper extremity: Normal inspection, Normal ROM General lower extremity: Edema - Bilateral lower extremities are swollen and tender. Skin to the extremities is tight and thickening. Not erythematous or warm to touch., Normal ROM. No: Normal inspection - Neurological Neuro grossly intact: Yes - Psychological Associated symptoms: Normal affect, Normal mood - Skin Skin Temperature: Warm Skin Moisture: Dry Skin Color: Normal Skin irregularity: other - see extremity exam above <LOWE,LALA - Last Filed: 10/08/17 17:30> - Genitourinary External exam: Other - The lower labial area is wet and appears to have some fungal type breakdown of the skin. Is also quite tender to palpate and has a burning discomfort according to the patient. There also appear to be some external hemorrhoids. - Extremities General lower extremity: Edema - Bilateral lower extremities are swollen and tender. Skin to the extremities is tight and thickening. Not erythematous or warm to touch. The patient has tense pitting edema all the way to the groin. <DARIO ALVARADO - Last Filed: 10/08/17 23:36> - Vital signs Vitals: Temp Pulse Resp BP Pulse Ox 98.9 F 102 H 12 109/86 H 100 11/28/17 14:12 10/08/17 14:12 10/08/17 14:12 10/08/17 14:12 10/08/17 14:12 Course - Laboratory Result Diagrams: 10/08/17 15:47 10/08/17 15:47 <LALA LOWE - Last Filed: 10/08/17 17:30> - Laboratory Result Diagrams: 10/08/17 15:47 10/08/17 15:47 <DARIO ALVARADO - Last Filed: 10/08/17 23:36> - Re-evaluation Re-evalutation: 10/08/17 18:51 The patient's ABG on room air shows a pH of 7.52, PCO2 28.9, PO2 of 62. Her pulse ox was reading 100%. She is not breathing fast or deep. Her electrolytes are unremarkable. Her chest x-ray is unremarkable, other than a small right pleural effusion. We will repeat this blood gas to see if these are really accurate values. (DARIO ALVARADO) - Vital Signs Vital signs: Temp Pulse Resp BP Pulse Ox 98.7 F 102 H 8 L 109/67 100 10/08/17 19:07 10/08/17 14:12 10/08/17 23:01 10/08/17 23:01 10/08/17 23:01 - Laboratory Laboratory results interpreted by me: 10/08/17 10/08/17 10/08/17 15:47 15:47 15:47 RBC 2.89 L Hgb 9.4 L Hct 28.0 L RDW 15.4 H PT 17.2 H APTT 38.3 H Carbonic Acid ABG pH ABG pCO2 ABG pO2 ABG Total CO2 ABG O2 Saturation Potassium 3.5 L Chloride 111 H Anion Gap 3 L Creatinine 0.51 L Glucose 71 L Calcium 6.6 L* Alkaline Phosphatase 138 H Ammonia NT-Pro-B Natriuret Pep Total Protein 3.7 L Albumin 1.4 L Urine Urobilinogen Ur Leukocyte Esterase 10/08/17 10/08/17 10/08/17 15:47 15:47 15:47 RBC Hgb Hct RDW PT APTT Carbonic Acid 0.87 L ABG pH 7.52 H ABG pCO2 28.9 L ABG pO2 62.0 L ABG Total CO2 ABG O2 Saturation Potassium Chloride Anion Gap Creatinine Glucose Calcium Alkaline Phosphatase Ammonia < 8.7 L NT-Pro-B Natriuret Pep 668 H Total Protein Albumin Urine Urobilinogen Ur Leukocyte Esterase 10/08/17 10/08/17 17:47 21:20 RBC Hgb Hct RDW PT APTT Carbonic Acid 0.99 L ABG pH 7.49 H ABG pCO2 32.9 L ABG pO2 146.1 H ABG Total CO2 25.4 H ABG O2 Saturation 99.1 H Potassium Chloride Anion Gap Creatinine Glucose Calcium Alkaline Phosphatase Ammonia NT-Pro-B Natriuret Pep Total Protein Albumin Urine Urobilinogen 2.0 H Ur Leukocyte Esterase LARGE H Discharge <LALA LOWE - Last Filed: 10/08/17 17:30> <DARIO ALVARADO - Last Filed: 10/08/17 23:36> - Discharge Clinical Impression: Anasarca, Yeast infection involving the vagina and surrounding area, Hypoalbuminemia, Hypoproteinemia Chronic liver failure Qualifiers: Hepatic coma status: without hepatic coma Qualified Code(s): K72.10 - Chronic hepatic failure without coma Urinary tract infection Qualifiers: Urinary tract infection type: site unspecified Hematuria presence: without hematuria Qualified Code(s): N39.0 - Urinary tract infection, site not specified Condition: Stable Disposition: HOME, SELF-CARE Additional Instructions: Your edema is due to the low protein and albumin levels in your bloodstream. The only practical treatment for this at this time is to elevate your feet above your heart is much as possible to help the fluid shift back into the bloodstream. Your examination suggests you are developing a vaginal yeast infection and possibly urinary tract infection. You were given a dose of an oral antifungal agent. You should use Monistat vaginal cream once daily to the raw, irritated vaginal area. Try to leave the vaginal area uncovered with your thighs apart to allow that area to stay cool and dry. Take the antibiotics as prescribed. Follow-up with your doctor this week for recheck if you do not seem to be improving. RETURN TO THE EMERGENCY ROOM IF ANY NEW OR WORSENING SYMPTOMS. Prescriptions: Levofloxacin [Levaquin 250 mg Tablet] 250 mg PO DAILY #4 tablet Referrals: HILTON FUCHS PA-C [Primary Care Provider] - Follow up in 3-5 days Scribe Attestation: 10/08/17 17:07 I personally performed the services described in the documentation, reviewed and edited the documentation which was dictated to the scribe in my presence, and it accurately records my words and actions. (DARIO ALVARADO) Scribe Documentation - Scribe Written by Scribe:: Juliana Rodriguez, 10/08/2017 1536 acting as scribe for :: Terrence <LALA LOWE - Last Filed: 10/08/17 17:30>
[2017-10-08 16:17] LABS: ARTERIAL BLOOD BASE EXCESS 0.9 mmol/L; ARTERIAL BLOOD O2 SATURATION 94.3 % (94-98)
[2017-10-08 16:18] LABS: ABSOLUTE EOSINOPHILS # (AUTO) 0.1 10^3/uL (0.0-0.6); ABSOLUTE LYMPHOCYTES (AUTO) 3.1 10^3/uL (0.5-4.7); ABSOLUTE MONOCYTES (AUTO) 0.4 10^3/uL (0.1-1.4); ABSOLUTE NEUT (AUTO) 4.4 10^3/uL (1.7-8.2); BASOPHILS % (AUTO) 0.4 % (0-2); EOSINOPHILS % (AUTO) 0.7 % (0-6); HEMOGLOBIN 9.4 g/dL (12.0-15.5); HGB HCT DIFFERENCE 0.2; LYMPHOCYTES % (AUTO) 38.6 % (13-45); MEAN CORPUSCULAR HEMOGLOBIN 32.4 pg (27.0-33.4); MEAN CORPUSCULAR HGB CONC 33.5 g/dL (32.0-36.0); MEAN CORPUSCULAR VOLUME 97 fl (80-97); MONOCYTES % (AUTO) 4.4 % (3-13); RED BLOOD COUNT 2.89 10^6/uL (3.72-5.28); RED CELL DISTRIBUTION WIDTH 15.4 % (11.5-14.0); SEGMENTED NEUTROPHILS % (AUTO) 55.9 % (42-78)
[2017-10-08 16:37] LABS: PROTHROMBIN TIME 17.2 SEC (11.4-15.4)
[2017-10-08 16:38] LABS: ALANINE AMINOTRANSFERASE 36 U/L (9-52); ALBUMIN 1.4 g/dL (3.5-5.0); ALKALINE PHOSPHATASE 138 U/L (38-126); ASPARTATE AMINO TRANSFERASE 22 U/L (14-36); BILIRUBIN,DIRECT 0.3 mg/dL (0.0-0.4); BILIRUBIN,TOTAL 0.3 mg/dL (0.2-1.3); BLOOD UREA NITROGEN 9 mg/dL (7-20); CARBON DIOXIDE 26 mmol/L (22-30); CHLORIDE 111 mmol/L (98-107); CREATININE RESULT 0.51 mg/dL (0.52-1.25); GLUCOSE 71 mg/dL (75-110); PARTIAL THROMBOPLASTIN TIME 38.3 SEC (23.5-35.8); POTASSIUM 3.5 mmol/L (3.6-5.0); TOTAL PROTEIN 3.7 g/dL (6.3-8.2)
[2017-10-08] MEDS ORDERED: MORPHINE SULFATE 10 MG/ML INJ IV ONE ×2 (16:45→19:09)
[2017-10-08 16:46] LABS: SODIUM 139.9 mmol/L (137-145)
[2017-10-08 16:47] LABS: ANION GAP 3 (5-19); CALCIUM 6.6 mg/dL (8.4-10.2)
--- NOTE | 2017-10-08 18:02 | RADIOLOGY REPORT (SQ) ---
EXAM DESCRIPTION: CHEST SINGLE VIEW COMPLETED DATE/TIME: 10/08/2017 5:51 pm REASON FOR STUDY: SOB COMPARISON: 09/02/2017 EXAM PARAMETERS: NUMBER OF VIEWS: One view. TECHNIQUE: Single frontal radiographic view of the chest acquired. RADIATION DOSE: NA LIMITATIONS: None. FINDINGS: LUNGS AND PLEURA: There is a small right pleural effusion. There is no infiltrate. There is mass. MEDIASTINUM AND HILAR STRUCTURES: No masses. Contour normal. HEART AND VASCULAR STRUCTURES: Heart normal in size. Normal vasculature. BONES: No acute findings. HARDWARE: None in the chest. OTHER: No other significant finding. IMPRESSION: Very small right pleural effusion. TECHNICAL DOCUMENTATION: JOB ID: [id number] [employer]- All Rights Reserved
[2017-10-08 18:10] LABS: APPEARANCE,URINE SLIGHTLY-CLOUDY; BILIRUBIN,URINE NEGATIVE (NEGATIVE); GLUCOSE, URINE NEGATIVE (NEGATIVE); KETONES,URINE NEGATIVE (NEGATIVE); LEUKOCYTE ESTERASE,URINE LARGE (NEGATIVE); NITRITE,URINE NEGATIVE (NEGATIVE); PROTEIN,URINE NEGATIVE (NEGATIVE)
[2017-10-08 22:01] LABS: ARTERIAL BLOOD BASE EXCESS 1.2 mmol/L; ARTERIAL BLOOD O2 SATURATION 99.1 % (94-98)
[2017-10-08 23:13] VITALS: BP 109/67
[2017-10-08] MEDS ORDERED: FLUCONAZOLE 100 MG TABLET PO ONE (23:27)
[2017-10-08] MEDS ORDERED: LEVOFLOXACIN 250 MG TABLET PO ONE (23:29)
== END 2017-10-08 23:45 | disposition home or self-care (01) ==
LOC: ER 14:04
DX: K72.10 Chronic hepatic failure without coma (principal); N39.0 Urinary tract infection, site not specified; B37.3 Candidiasis of vulva and vagina; E88.09 Other disorders of plasma-protein metabolism, not elsewhere classified; E77.8 Other disorders of glycoprotein metabolism; R60.1 Generalized edema; F17.200 Nicotine dependence, unspecified, uncomplicated; I10 Essential (primary) hypertension; E11.9 Type 2 diabetes mellitus without complications; Z88.1 Allergy status to other antibiotic agents; Z88.0 Allergy status to penicillin; Z98.84 Bariatric surgery status
CPT/HCPCS: 96376; 99283; 96374; 36415; 87086; 82140; 82803; 85025; 85610; 85730; 87088; 80053; 81001; 87186; 83880; 71010; J2270; A9270 ×2

== ENCOUNTER 2017-10-13 19:10 | Inpatient (IN) | payer MEDICARE, MEDICAID ==
[2017-10-13] MEDS ORDERED: HYDROMORPHONE HCL INJ/PF 2 MG/ML AMPULE IM ONE (20:07)
--- NOTE | 2017-10-13 20:10 | ER Document Report ---
ED Fall - General Chief Complaint: Fall Injury Stated Complaint: FALL,HIP PAIN Time Seen by Provider: 10/13/17 19:48 Notes: Patient is a 47-year-old female who comes emergency department for chief complaint of fall, she states that she tripped over her dog and fell landing on her left leg and hip on tile surface. She denies chest pain, abdominal pain, shoulder pain, back pain, head pain or any other injuries other than her hip and lower extremity on the left side. She does not take a blood thinner. Past medical history of chronic back pain and is on pain management for this. She denies any orthopedic surgeries. TRAVEL OUTSIDE OF THE [place] IN LAST 30 DAYS: No - Related data Allergies/Adverse Reactions: cilastatin [From Primaxin IV] Allergy (Intermediate, Verified 10/13/17 19:19) Facial swelling imipenem [From Primaxin IV] Allergy (Intermediate, Verified 10/13/17 19:19) Facial swelling Penicillins Allergy (Verified 10/13/17 19:19) Past Medical History - General Information source: Patient - Social History Smoking Status: Never Smoker Chew tobacco use (# tins/day): No Frequency of alcohol use: None Drug Abuse: None Lives with: Family Family History: DM, Hypertension Patient has suicidal ideation: No Patient has homicidal ideation: No - Past Medical History Cardiac Medical History: Reports: Hx Hypertension Pulmonary Medical History: Reports: Hx Pneumonia Denies: Hx Asthma, Hx COPD, Hx Sleep Apnea Neurological Medical History: Reports: Hx Cerebrovascular Accident Endocrine Medical History: Reports: Hx Diabetes Mellitus Type 2. Denies: Hx Hyperthyroidism, Hx Hypothyroidism Renal/ Medical History: Denies: Hx Peritoneal Dialysis GI Medical History: Reports: Hx Gastroesophageal Reflux Disease, Hx Ulcer, Hx Endoscopy. Denies: Hx Cirrhosis, Hx Hepatitis Musculoskeltal Medical History: Reports Hx Arthritis Psychiatric Medical History: Reports: Hx Anxiety, Hx Bipolar Disorder, Hx Depression, Hx Schizophrenia Infectious Medical History: Denies: Hx Hepatitis Past Surgical History: Reports: Hx Abdominal Surgery - gastric bypass, reversal , Hx Cholecystectomy, Hx Gastric Bypass Surgery, Hx Hysterectomy, Hx Orthopedic Surgery - LLE, left jaw - Immunizations Immunizations up to date: Yes Hx Diphtheria, Pertussis, Tetanus Vaccination: Yes Review of Systems - Review of Systems Constitutional: No symptoms reported EENT: No symptoms reported Cardiovascular: No symptoms reported Respiratory: No symptoms reported Gastrointestinal: No symptoms reported Genitourinary: No symptoms reported Female Genitourinary: No symptoms reported Musculoskeletal: See HPI Skin: No symptoms reported Hematologic/Lymphatic: No symptoms reported Neurological/Psychological: No symptoms reported Physical Exam - Vital signs Vitals: Temp Pulse Resp BP Pulse Ox 97.9 F 83 16 97/65 L 100 10/13/17 19:17 10/13/17 19:17 10/13/17 19:17 10/13/17 19:17 10/13/17 19:17 Interpretation: Normal - General General appearance: Appears well, Alert In distress: None - Patient sitting quietly on the bed. Does not appear to be in any distress. However if she tries to move she clearly has discomfort. - HEENT Head: Normocephalic, Atraumatic Eyes: Normal Conjunctiva: Normal Extraocular movements intact: Yes Eyelashes: Normal Pupils: PERRL Mucous membranes: Normal Pharynx: Normal Neck: Normal - Respiratory Respiratory status: No respiratory distress Chest status: Nontender Breath sounds: Normal Chest palpation: Normal - Cardiovascular Rhythm: Regular. No: Tachycardia Heart sounds: Normal auscultation, S1 appreciated, S2 appreciated Murmur: No - Abdominal Inspection: Normal Distension: No distension Bowel sounds: Normal Tenderness: Nontender Organomegaly: No organomegaly - Back Back: Normal, Nontender. No: Tender - Extremities General upper extremity: Normal inspection, Nontender, Normal color, Normal ROM , Normal temperature General lower extremity: Other - There is marked tenderness over the left hip/ groin area, tenderness extending over the proximal to mid femur anteriorly, there is minimal tenderness over the ankle. No bruising, swelling, signs of trauma noted. No evidence of compartment syndrome. Normal distal pulse and sensation. There is a wrapped pressure ulcer on the left ankle. No significant erythema, drainage, or other abnormality noted. - Neurological Neuro grossly intact: Yes Cognition: Normal Orientation: AAOx4 [place] Coma Scale Eye Opening: Spontaneous [place] Coma Scale Verbal: Oriented [place] Coma Scale Motor: Obeys Commands [place] Coma Scale Total: 15 Speech: Normal Motor strength normal: LUE, RUE, LLE, RLE Sensory: Normal - Psychological Associated symptoms: Normal affect, Normal mood - Skin Skin Temperature: Warm Skin Moisture: Dry Skin Color: Normal Course - Re-evaluation Re-evalutation: X-ray showing left femoral neck fracture. Additional x-ray of the chest performed preop. Laboratory workup nonspecific, shows mild leukocytosis with no shift, normocytic anemia, hypocalcemia, mild hypokalemia. Urinalysis still pending. EKG with no significant change from prior. PT/INR slightly prolonged. Discussed with hospitalist, Dr. Donis, she will accept patient for admission, telemetry full admission. Contacted orthopedics, Dr. Russell, patient will be admitted and he will be consulted. - Vital Signs Vital signs: Temp Pulse Resp BP Pulse Ox 97.9 F 83 8 L 109/79 99 10/13/17 19:17 10/13/17 19:17 10/14/17 04:01 10/14/17 04:01 10/14/17 02:07 - Laboratory Result Diagrams: 10/14/17 00:15 10/14/17 00:15 Laboratory results interpreted by me: 10/14/17 10/14/17 10/14/17 00:15 00:15 00:15 WBC 11.7 H RBC 3.23 L Hgb 10.0 L Hct 30.5 L RDW 15.8 H PT 17.0 H APTT 36.1 H Potassium 3.4 L Chloride 111 H Anion Gap 4 L Calcium 6.6 L* Alkaline Phosphatase 156 H Total Protein 3.8 L Albumin 1.4 L Discharge - Discharge Clinical Impression: Fall Qualifiers: Encounter type: initial encounter Qualified Code(s): W19.XXXA - Unspecified fall, initial encounter Fracture of femoral neck, left Qualifiers: Encounter type: initial encounter Fracture type: closed Qualified Code(s): S72.002A - Fracture of unspecified part of neck of left femur, initial encounter for closed fracture Condition: Stable Disposition: ADMITTED INPATIENT Admitting Provider: Hospitalist Unit Admitted: Telemetry
[2017-10-13] MEDS ORDERED: HYDROMORPHONE HCL INJ/PF 2 MG/ML AMPULE IV ONE (21:27)
--- NOTE | 2017-10-13 21:28 | RADIOLOGY REPORT (SQ) ---
EXAM DESCRIPTION: TIBIA FIBULA LEFT COMPLETED DATE/TIME: 10/13/2017 9:18 pm REASON FOR STUDY: fall, pain COMPARISON: None. NUMBER OF VIEWS: Two views. TECHNIQUE: Two radiographic images acquired of the left tibia and fibula to include the knee and ank le in at least one projection. LIMITATIONS: None. FINDINGS: MINERALIZATION: Normal. BONES: No acute fracture or dislocation. Old tibial fracture and fibular resection. Left tibial int ramedullary nail is intact. SOFT TISSUES: No obvious swelling or foreign body. OTHER: No other significant finding. IMPRESSION: NO RADIOGRAPHIC EVIDENCE OF ACUTE INJURY. TECHNICAL DOCUMENTATION: JOB ID: [id number] [place]-72 2010 [employer]- All Rights Reserved
--- NOTE | 2017-10-13 21:29 | RADIOLOGY REPORT (SQ) ---
EXAM DESCRIPTION: FEMUR LEFT COMPLETED DATE/TIME: 10/13/2017 9:18 pm REASON FOR STUDY: mid femur pain, fall COMPARISON: None. NUMBER OF VIEWS: Two views. TECHNIQUE: Two radiographic images acquired of the left femur to include hip and knee in at least on e projection. LIMITATIONS: None. FINDINGS: MINERALIZATION: Normal. BONES: No acute fracture. No worrisome bone lesions. SOFT TISSUES: No obvious swelling or foreign body. OTHER: No other significant finding. IMPRESSION: NO RADIOGRAPHIC EVIDENCE OF ACUTE INJURY. TECHNICAL DOCUMENTATION: JOB ID: [id number] [place]-72 2010 [employer] All Rights Reserved
--- NOTE | 2017-10-13 21:30 | RADIOLOGY REPORT (SQ) ---
EXAM DESCRIPTION: PELVIS AP COMPLETED DATE/TIME: 10/13/2017 9:18 pm REASON FOR STUDY: fall, pain COMPARISON: None. NUMBER OF VIEWS: One view TECHNIQUE: AP Pelvis LIMITATIONS: None. FINDINGS: MINERALIZATION: Normal. HIPS: Left femoral neck fracture without significant displacement. No dislocation. No worrisome bone lesions. PELVIS AND SACRUM: No acute fracture or dislocation. No worrisome bone lesions. PUBIS AND ISCHIUM: No acute fracture. LOWER LUMBAR SPINE: No significant findings as visualized. SOFT TISSUES: No findings. OTHER: No other significant finding. IMPRESSION: Left femoral neck fracture without significant displacement. TECHNICAL DOCUMENTATION: JOB ID: [id number] [place]-72 2010 [employer]- All Rights Reserved
--- NOTE | 2017-10-13 21:31 | RADIOLOGY REPORT (SQ) ---
EXAM DESCRIPTION: CHEST SINGLE VIEW COMPLETED DATE/TIME: 10/13/2017 9:18 pm REASON FOR STUDY: PRE OP COMPARISON: 10/08/2017 EXAM PARAMETERS: NUMBER OF VIEWS: One view. TECHNIQUE: Single frontal radiographic view of the chest acquired. RADIATION DOSE: NA LIMITATIONS: None. FINDINGS: LUNGS AND PLEURA: No opacities, masses or pneumothorax. Residual tiny right pleural effus ion. MEDIASTINUM AND HILAR STRUCTURES: No masses. Contour normal. HEART AND VASCULAR STRUCTURES: Heart normal in size. Normal vasculature. BONES: No acute findings. HARDWARE: None in the chest. OTHER: No other significant finding. IMPRESSION: NO ACUTE RADIOGRAPHIC FINDING IN THE CHEST.Residual tiny right pleural effusion. TECHNICAL DOCUMENTATION: JOB ID: [id number] [place]-72 2010 [employer]- All Rights Reserved
[2017-10-14 00:28] LABS: ABSOLUTE BASOPHILS # (AUTO) 0.1 10^3/uL (0.0-0.2); ABSOLUTE LYMPHOCYTES (AUTO) 4.2 10^3/uL (0.5-4.7); ABSOLUTE MONOCYTES (AUTO) 0.7 10^3/uL (0.1-1.4); ABSOLUTE NEUT (AUTO) 6.7 10^3/uL (1.7-8.2); BASOPHILS % (AUTO) 0.9 % (0-2); EOSINOPHILS % (AUTO) 0.2 % (0-6); HEMATOCRIT 30.5 % (36.0-47.0); HGB HCT DIFFERENCE -0.5; MEAN CORPUSCULAR HGB CONC 32.8 g/dL (32.0-36.0); MEAN CORPUSCULAR VOLUME 95 fl (80-97); MONOCYTES % (AUTO) 5.9 % (3-13); RED BLOOD COUNT 3.23 10^6/uL (3.72-5.28); RED CELL DISTRIBUTION WIDTH 15.8 % (11.5-14.0); WHITE BLOOD COUNT 11.7 10^3/uL (4.0-10.5)
[2017-10-14 00:37] LABS: PARTIAL THROMBOPLASTIN TIME 36.1 SEC (23.5-35.8)
[2017-10-14] MEDS ORDERED: IPRATROPIUM/ALBUTEROL 0.5-2.5 MG/3 ML AMPUL NEB PRN ×2 (00:38→14:30)
[2017-10-14] MEDS ORDERED: ONDANSETRON HCL INJ/PF 4 MG/2 ML SDV IV PRN ×2 (00:38→14:30)
[2017-10-14] MEDS ORDERED: POTASSI CL 20 MEQ/D5-1/2NS 1L 1,000 ML IV PRN (00:38)
[2017-10-14] MEDS ORDERED: MUPIROCIN 2% OINTMENT 22 GM TP PRN ×2 (00:45→14:30)
[2017-10-14] MEDS ORDERED: LORAZEPAM 1 MG TABLET PO PRN (00:45)
[2017-10-14] MEDS ORDERED: OXYCODONE HCL IR 5 MG TABLET PO PRN ×2 (00:45→14:30)
[2017-10-14 00:47] LABS: ALANINE AMINOTRANSFERASE 42 U/L (9-52); ALBUMIN 1.4 g/dL (3.5-5.0); ALKALINE PHOSPHATASE 156 U/L (38-126); ASPARTATE AMINO TRANSFERASE 18 U/L (14-36); BILIRUBIN,DIRECT 0.3 mg/dL (0.0-0.4); BILIRUBIN,TOTAL 0.3 mg/dL (0.2-1.3); BLOOD UREA NITROGEN 10 mg/dL (7-20); CARBON DIOXIDE 23 mmol/L (22-30); CHLORIDE 111 mmol/L (98-107); CREATININE RESULT 0.59 mg/dL (0.52-1.25); GLUCOSE 93 mg/dL (75-110); POTASSIUM 3.4 mmol/L (3.6-5.0); SODIUM 137.6 mmol/L (137-145); TOTAL PROTEIN 3.8 g/dL (6.3-8.2)
[2017-10-14 00:56] LABS: CALCIUM 6.6 mg/dL (8.4-10.2)
[2017-10-14 01:32] LABS: ANION GAP 4 (5-19)
[2017-10-14] MEDS ORDERED: POTASSIUM CHLORIDE 10 MEQ TABLET.SA PO ONE (01:41)
[2017-10-14] MEDS ORDERED: FUROSEMIDE INJ/PF 20 MG/2 ML SDV IV ONE (01:47)
--- NOTE | 2017-10-14 01:56 | PDOC H&P ---
History of Present Illness Admission Date/PCP: JANI VALLE NP History of Present Illness: [place] is a 47 year old female bipolar, GERD, hypertension, chronic malnutrition secondary to gastric bypass, fatty liver disease who presents to the emergency department after mechanical trip and fall over her dog resulting in left femoral neck fracture. Patient reported she was feeling fine before this she has been ambulating at home sometimes with a cane sometimes with a walker and sometimes she reports on her own. She reports that her chronic decubitus ulceration has been improving. Patient has been slowly weaned down on her narcotic pain medications to 5 mg of oxycodone p.o. every 6 as needed. She is referred to the hospital service for medical management. Patient's medications are currently undergoing reconciliation. Current list is automatically generated by [employer] and does not reflect an accurate description of her medications. Due to the urgent/emergent nature of her condition, she is admitted without a full list. Past Medical History Cardiac Medical History: Reports: Hypertension Pulmonary Medical History: Reports: Pneumonia Denies: Asthma, Chronic Obstructive Pulmonary Disease (COPD), Sleep Apnea Endocrine Medical History: Denies: Hyperthyroidism, Hypothyroidism GI Medical History: Reports: Gastroesophageal Reflux Disease, Other - Nonalcoholic fatty liver disease Denies: Cirrhosis, Hepatitis Musculoskeltal Medical History: Reports: Arthritis Psychiatric Medical History: Reports: Bipolar Disorder, Depression Hematology: Reports: Anemia Past Surgical History Past Surgical History: Reports: Cholecystectomy, Gastric Bypass Surgery, Hysterectomy, Orthopedic Surgery - LLE, left jaw Social History Smoking Status: Never Smoker Frequency of Alcohol Use: None Hx Recreational Drug Use: No Drugs: None Hx Prescription Drug Abuse: No - Advance Directive Resuscitation Status: Full Code Surrogate healthcare decision maker:: Family History Family History: DM, Hypertension Parental Family History Reviewed: Yes Children Family History Reviewed: Yes Sibling(s) Family History Reviewed.: Yes Medication/Allergy Home Medications: Aspirin [Aspirin EC] 81 mg PO DAILY 09/02/17 Calcium Carbonate [Tums Chewable 500 mg Tab.chew] 1,000 mg PO MEALSHS 09/02/17 Cholecalciferol (Vitamin D3) [Vitamin D3 1000 Unit Tablet] 1,000 unit PO DAILY 09/02/17 Cyanocobalamin (Vitamin B-12) [Vitamin B-12] 1,000 mcg PO DAILY 09/02/17 Esomeprazole Mag Trihydrate [Nexium] 40 mg PO Q6AM 09/02/17 Gabapentin [Neurontin 300 mg Capsule] 300 mg PO Q8 09/02/17 Lidocaine [Lidoderm 5% (700 mg) Transdermal Patch] 2 patch TP DAILY MDD TO LOWER BACK 09/02/17 Lurasidone HCl [Latuda 40 mg Tablet] 40 mg PO Q12 09/02/17 Mirtazapine [Remeron 15 mg Tablet] 7.5 mg PO QHS 09/02/17 Multivitamins W-Iron [Flintstones Chewable Multivit W/Fe Tab] 1 tab.chew PO DAILY 09/02/17 Mupirocin [Bactroban 2% Ointment 22 gm] 1 applic TP BID PRN 09/02/17 Naloxegol Oxalate [Movantik 25 mg Tablet] 25 mg PO DAILY 09/02/17 Nystatin [Nyata] 15 gm TP BID 09/02/17 Flu Vacc [id number] 36Mos Up/Pf [Fluzone Adlt Quad [id number] Vac 0.5 ml Syr] 0.5 ml IM .DISCHARGE PRN disp.syrin 09/05/17 Lactulose [Cephulac Syrup 20 gm/30 ml Udcup] 10 gm PO TID udc 09/05/17 Lorazepam [Ativan 1 mg Tablet] 1 mg PO Q8HP PRN #10 tablet 09/05/17 Oxycodone HCl [Oxy-Ir 5 mg Tablet] 5 mg PO Q4HP PRN #10 tablet 09/05/17 Levofloxacin [Levaquin 250 mg Tablet] 250 mg PO DAILY #4 tablet 10/08/17 Allergies/Adverse Reactions: cilastatin [From Primaxin IV] Allergy (Intermediate, Verified 10/13/17 19:19) Facial swelling imipenem [From Primaxin IV] Allergy (Intermediate, Verified 10/13/17 19:19) Facial swelling Penicillins Allergy (Verified 10/13/17 19:19) Review of Systems Constitutional: ABSENT: chills, fever(s), headache(s), weight gain, weight loss Eyes: ABSENT: visual disturbances Ears: ABSENT: hearing changes Cardiovascular: PRESENT: edema. ABSENT: chest pain, dyspnea on exertion, orthropnea, palpitations Respiratory: ABSENT: cough, hemoptysis Gastrointestinal: ABSENT: abdominal pain, constipation, diarrhea, hematemesis, hematochezia, nausea, vomiting Genitourinary: ABSENT: dysuria, hematuria Musculoskeletal: PRESENT: deformity, joint swelling Integumentary: ABSENT: rash, wounds Neurological: ABSENT: abnormal gait, abnormal speech, confusion, dizziness, focal weakness, syncope Psychiatric: ABSENT: anxiety, depression, homidical ideation, suicidal ideation Endocrine: ABSENT: cold intolerance, heat intolerance, polydipsia, polyuria Hematologic/Lymphatic: ABSENT: easy bleeding, easy bruising Physical Exam Vital Signs: Temp Pulse Resp BP Pulse Ox 97.9 F 83 16 97/65 L 100 10/13/17 19:17 10/13/17 19:17 10/13/17 19:17 10/13/17 19:17 10/13/17 19:17 General appearance: PRESENT: mild distress, thin. ABSENT: well-nourished Head exam: PRESENT: atraumatic, normocephalic Eye exam: PRESENT: conjunctiva pink, EOMI, PERRLA. ABSENT: scleral icterus Ear exam: PRESENT: normal external ear exam Mouth exam: PRESENT: moist, tongue midline Neck exam: ABSENT: carotid bruit, JVD, lymphadenopathy, thyromegaly, tracheal deviation Respiratory exam: PRESENT: clear to auscultation rona, symmetrical, unlabored. ABSENT: accessory muscle use, rales, rhonchi, tachypnea, wheezes Cardiovascular exam: PRESENT: RRR, +S1, +S2, systolic murmur. ABSENT: diastolic murmur, rubs Pulses: PRESENT: normal dorsalis pedis pul Vascular exam: PRESENT: normal capillary refill GI/Abdominal exam: PRESENT: ascites, normal bowel sounds, soft. ABSENT: distended, firm, guarding, mass, Houston's sign, organolmegaly, rebound, rigid, tenderness Rectal exam: PRESENT: deferred Extremities exam: PRESENT: +2 edema. ABSENT: calf tenderness, clubbing Musculoskeletal exam: PRESENT: deformity Neurological exam: PRESENT: alert, awake, oriented to person, oriented to place , oriented to time, oriented to situation, CN II-XII grossly intact. ABSENT: motor sensory deficit Psychiatric exam: PRESENT: appropriate affect, normal mood. ABSENT: homicidal ideation, suicidal ideation Skin exam: PRESENT: dry, skin tears, warm. ABSENT: cyanosis, intact - Stage II sacral decubitus Results Laboratory Results: 10/14/17 00:15 10/14/17 00:15 WBC 11.7 H RBC 3.23 L Hgb 10.0 L Hct 30.5 L MCV 95 MCH 31.0 MCHC 32.8 RDW 15.8 H Plt Count 245 Seg Neutrophils % 57.0 Lymphocytes % 36.0 Monocytes % 5.9 Eosinophils % 0.2 Basophils % 0.9 Absolute Neutrophils 6.7 Absolute Lymphocytes 4.2 Absolute Monocytes 0.7 Absolute Eosinophils 0.0 Absolute Basophils 0.1 10/14/17 00:15 Sodium 137.6 Potassium 3.4 L Chloride 111 H Carbon Dioxide 23 Anion Gap 4 L BUN 10 Creatinine 0.59 Glucose 93 Calcium 6.6 L* Total Bilirubin 0.3 Direct Bilirubin 0.3 AST 18 ALT 42 Alkaline Phosphatase 156 H Total Protein 3.8 L Albumin 1.4 L Impressions: Chest X-Ray 10/13/17 00:00 IMPRESSION: NO ACUTE RADIOGRAPHIC FINDING IN THE CHEST.Residual tiny right pleural effusion. Femur X-Ray 10/13/17 20:07 IMPRESSION: NO RADIOGRAPHIC EVIDENCE OF ACUTE INJURY. Pelvis X-Ray 10/13/17 20:07 IMPRESSION: Left femoral neck fracture without significant displacement. Tibia/Fibula X-Ray 10/13/17 20:08 IMPRESSION: NO RADIOGRAPHIC EVIDENCE OF ACUTE INJURY. Status: Imported from PACS Assessment & Plan - Diagnosis (1) Fracture of femoral neck, left Qualifiers: Encounter type: initial encounter Fracture type: closed Qualified Code(s) : S72.002A - Fracture of unspecified part of neck of left femur, initial encounter for closed fracture Is this a current diagnosis for this admission?: Yes Plan: Consult orthopedics and defer management of this to them. Patient has had a recent echo in August of this year which reveals grade 2 diastolic dysfunction with a normal EF. (2) Decubitus ulcer of left buttock, stage 2 Is this a current diagnosis for this admission?: Yes Plan: Localized wound management (3) Essential hypertension Is this a current diagnosis for this admission?: Yes Plan: Continue home medications (4) Generalized edema Is this a current diagnosis for this admission?: Yes Plan: Will give Lasix as needed (5) Hypoalbuminemia Is this a current diagnosis for this admission?: Yes Plan: Secondary to gastric bypass (6) Malnutrition compromising bodily function Is this a current diagnosis for this admission?: Yes Plan: Continue to encourage good oral intake of proteinaceous food. High-protein diet (7) Opiate dependence Qualifiers: Substance use status: in remission Qualified Code(s): F11.21 - Opioid dependence, in remission Is this a current diagnosis for this admission?: Yes Plan: Patient's baseline opiate usage has gone down significantly. Will be cautious of this in light of her acute injury (8) GERD (gastroesophageal reflux disease) Qualifiers: Esophagitis presence: without esophagitis Qualified Code(s): K21.9 - Gastro -esophageal reflux disease without esophagitis Is this a current diagnosis for this admission?: Yes Plan: PPI (9) Hemiparesis affecting left side as late effect of cerebrovascular accident Is this a current diagnosis for this admission?: Yes (10) Hypothyroidism Qualifiers: Hypothyroidism type: unspecified Qualified Code(s): E03.9 - Hypothyroidism , unspecified Is this a current diagnosis for this admission?: Yes (11) Status post gastric bypass for obesity Is this a current diagnosis for this admission?: Yes - Time Time Spent: 50 to 70 Minutes Medications reviewed and adjusted accordingly: Yes Anticipated discharge: Acute Rehab - Inpatient Certification Based on my medical assessment, after consideration of the patient's comorbidities, presenting symptoms, or acuity I expect that the services needed warrant INPATIENT care.: Yes I certify that my determination is in accordance with my understanding of Medicare's requirements for reasonable and necessary INPATIENT services [42 CFR 412.3e].: Yes Medical Necessity: Need for Surgery Post Hospital Care: D/C [facility] Documentation
[2017-10-14] MEDS: HYDROMORPHONE HCL INJ/PF 2 MG/ML AMPULE IV PRN ×2 (02:05→10:07)
[2017-10-14 03:05] LABS: APPEARANCE,URINE SLIGHTLY-CLOUDY; BILIRUBIN,URINE SMALL (NEGATIVE); GLUCOSE, URINE NEGATIVE (NEGATIVE); KETONES,URINE NEGATIVE (NEGATIVE); LEUKOCYTE ESTERASE,URINE NEGATIVE (NEGATIVE); NITRITE,URINE NEGATIVE (NEGATIVE); PROTEIN,URINE 30 mg/dL (NEGATIVE); URINE SPECIFIC GRAVITY 1.031; UROBILINOGEN,URINE NEGATIVE mg/dL (<2.0)
[2017-10-14 03:34] LABS: BACTERIA,URINE 1+ /HPF; HYALINE CASTS, URINE 0-1 /LPF; RBC,URINE NONE SEEN /HPF
[2017-10-14] MEDS ORDERED: HEPARIN SOD (PORCINE) 5,000 UNIT/ML 1 ML SYRINGE SUBCUT SCH (06:00)
[2017-10-14] MEDS ORDERED: (PENDING PHARMACY ID) (Esomeprazole Mag Trihydrate [Nexium] 40 MG) PO SCH (06:00)
--- NOTE | 2017-10-14 06:07 | EKG REPORT ---
SEVERITY:- BORDERLINE ECG - SINUS TACHYCARDIA LOW VOLTAGE IN FRONTAL LEADS BORDERLINE T WAVE ABNORMALITIES : Confirmed by: Alli Fish MD 14-Oct-2017 06:06:21
[2017-10-14] MEDS: GABAPENTIN 300 MG CAPSULE PO SCH ×3 (06:33→21:15)
[2017-10-14] MEDS: LANSOPRAZOLE 30 MG TAB.RAP.DR PO SCH (06:34)
--- NOTE | 2017-10-14 06:59 | PDOC CONSULTATION ---
History of Present Illness Admission Date/PCP: 10/14/17 00:54 JANI VALLE NP Patient complains of: Left hip pain History of Present Illness: Patient is 47-year-old white female with a myriad of medical problems who is a household ambulator with a walker when she tripped over a pack and sustained a left hip injury. She is brought to the emergency room were nondisplaced left femoral neck fracture was identified. She is admitted to the hospital service and orthopedics is consulted for fracture management. Past Medical History Cardiac Medical History: Reports: Hypertension Pulmonary Medical History: Reports: Pneumonia Denies: Asthma, Chronic Obstructive Pulmonary Disease (COPD), Sleep Apnea Endocrine Medical History: Reports: Diabetes Mellitus Type 2 Denies: Hyperthyroidism, Hypothyroidism GI Medical History: Reports: Gastroesophageal Reflux Disease, Other - Nonalcoholic fatty liver disease Denies: Cirrhosis, Hepatitis Musculoskeltal Medical History: Reports: Arthritis Musculoskeletal History Note: History of previous tibia fracture and open reduction and internal fixation Psychiatric Medical History: Reports: Bipolar Disorder, Depression Hematology: Reports: Anemia Past Surgical History Past Surgical History: Reports: Cholecystectomy, Gastric Bypass Surgery, Hysterectomy, Orthopedic Surgery - LLE, left jaw Social History Information Source: Patient, [facility] Records Lives with: Family Smoking Status: Never Smoker Frequency of Alcohol Use: None Hx Recreational Drug Use: No Drugs: None Hx Prescription Drug Abuse: No - Advance Directive Resuscitation Status: Full Code Family History Family History: DM, Hypertension Parental Family History Reviewed: No Children Family History Reviewed: No Sibling(s) Family History Reviewed.: No Medication/Allergy Home Medications: Aspirin [Aspirin EC] 81 mg PO DAILY 09/02/17 Calcium Carbonate [Tums Chewable 500 mg Tab.chew] 1,000 mg PO MEALSHS 09/02/17 Cholecalciferol (Vitamin D3) [Vitamin D3 1000 Unit Tablet] 1,000 unit PO DAILY 09/02/17 Cyanocobalamin (Vitamin B-12) [Vitamin B-12] 1,000 mcg PO DAILY 09/02/17 Esomeprazole Mag Trihydrate [Nexium] 40 mg PO Q6AM 09/02/17 Gabapentin [Neurontin 300 mg Capsule] 300 mg PO Q8 09/02/17 Lidocaine [Lidoderm 5% (700 mg) Transdermal Patch] 2 patch TP DAILY MDD TO LOWER BACK 09/02/17 Lurasidone HCl [Latuda 40 mg Tablet] 40 mg PO Q12 09/02/17 Mirtazapine [Remeron 15 mg Tablet] 7.5 mg PO QHS 09/02/17 Multivitamins W-Iron [Flintstones Chewable Multivit W/Fe Tab] 1 tab.chew PO DAILY 09/02/17 Mupirocin [Bactroban 2% Ointment 22 gm] 1 applic TP BID PRN 09/02/17 Naloxegol Oxalate [Movantik 25 mg Tablet] 25 mg PO DAILY 09/02/17 Nystatin [Nyata] 15 gm TP BID 09/02/17 Flu Vacc [id number] 36Mos Up/Pf [Fluzone Adlt Quad [id number] Vac 0.5 ml Syr] 0.5 ml IM .DISCHARGE PRN disp.syrin 09/05/17 Lactulose [Cephulac Syrup 20 gm/30 ml Udcup] 10 gm PO TID udc 09/05/17 Lorazepam [Ativan 1 mg Tablet] 1 mg PO Q8HP PRN #10 tablet 09/05/17 Oxycodone HCl [Oxy-Ir 5 mg Tablet] 5 mg PO Q4HP PRN #10 tablet 09/05/17 Levofloxacin [Levaquin 250 mg Tablet] 250 mg PO DAILY #4 tablet 10/08/17 Allergies/Adverse Reactions: cilastatin [From Primaxin IV] Allergy (Intermediate, Verified 10/13/17 19:19) Facial swelling imipenem [From Primaxin IV] Allergy (Intermediate, Verified 10/13/17 19:19) Facial swelling Penicillins Allergy (Verified 10/13/17 19:19) Review of Systems All systems: as per H Physical Exam Vital Signs: Temp Pulse Resp BP Pulse Ox 36.6 C 83 16 101/77 98 10/13/17 19:17 10/13/17 19:17 10/14/17 06:01 10/14/17 06:01 10/14/17 06:01 General appearance: PRESENT: mild distress Head exam: PRESENT: normocephalic Respiratory exam: PRESENT: unlabored Cardiovascular exam: PRESENT: RRR, tachycardia Pulses: PRESENT: +1 pedal pulses bilateral Vascular exam: PRESENT: normal capillary refill GI/Abdominal exam: PRESENT: soft Rectal exam: PRESENT: deferred Extremities exam: PRESENT: tenderness, other - Pain associate with attempted passive range of motion of the left lower extremity. Leg lengths are equal. Neurological exam: PRESENT: alert, awake, oriented to person, oriented to place , oriented to time, oriented to situation Psychiatric exam: PRESENT: appropriate affect, normal mood. ABSENT: homicidal ideation, suicidal ideation Results Laboratory Results: 10/14/17 10/14/17 02:14 02:43 Ionized Calcium Ney 1.10 L Urine Color YELLOW Urine Appearance SLIGHTLY-CLOUDY Urine pH 5.0 Ur Specific Grimes 1.031 Urine Protein 30 H Urine Glucose (UA) NEGATIVE Urine Ketones NEGATIVE Urine Blood NEGATIVE Urine Nitrite NEGATIVE Ur Leukocyte Esterase NEGATIVE Ur Squamous Epith Cells FEW Impressions: Chest X-Ray 10/13/17 00:00 IMPRESSION: NO ACUTE RADIOGRAPHIC FINDING IN THE CHEST.Residual tiny right pleural effusion. Femur X-Ray 10/13/17 20:07 IMPRESSION: NO RADIOGRAPHIC EVIDENCE OF ACUTE INJURY. Pelvis X-Ray 10/13/17 20:07 IMPRESSION: Left femoral neck fracture without significant displacement. Tibia/Fibula X-Ray 10/13/17 20:08 IMPRESSION: NO RADIOGRAPHIC EVIDENCE OF ACUTE INJURY. Status: Imported from PACS Assessment & Plan - Diagnosis (1) Fracture of femoral neck, left Qualifiers: Encounter type: initial encounter Fracture type: closed Qualified Code(s) : S72.002A - Fracture of unspecified part of neck of left femur, initial encounter for closed fracture Is this a current diagnosis for this admission?: Yes Plan: Plan for percutaneous internal fixation under local MAC anesthesia pending or availability - Time Time Spent: 50 to 70 Minutes Anticipated discharge: SNF Within: Other
--- NOTE | 2017-10-14 09:57 | RADIOLOGY REPORT (SQ) ---
EXAM DESCRIPTION: PICC INSERTION; U/S GUIDE FOR VASCULAR ACCESS; FLUORO/CV PLACEMENT COMPLETED DATE/TIME: 10/14/2017 9:43 am REASON FOR STUDY: difficult iv access; IV ACCESS COMPARISON: None. FLUOROSCOPY TIME: 33 seconds Total of 2 images saved to PACS. TECHNIQUE: Fluoroscopic and ultrasound guided PICC placement. LIMITATIONS: None. PROCEDURE: After written consent and assessment were obtained, the patient was brought into the fluo roscopy room and place supine on the table. Ultrasound was used on the patient's left arm for PICC a ccess. The left arm was prepped and draped in a sterile fashion along with the ultrasound probe. The entry site was anesthetized with 1% lidocaine. A 21 gauge 7 cm needle was advanced through the skin a nd into the left basilic vein under live ultrasound guidance. An ultrasound image was saved to PACS confirming access site. A .018 guide wire was then inserted through the needle and into the venous s ystem. The needle was the removed and an 11 blade scalpel was used to make a 1cm skin incision. A 5 fr peel-away sheath was advanced over the wire and into the venous system. A measurement was then mad e using the existing wire and live fluoroscopic guidance. The wire was then removed and the trimmed. The PICC was advanced through the peel-away sheath and into the venous system. The peel-away sheath w as removed and the catheter was adhered to the patients arm with a stat lock. The catheter was then a spirated and flushed and a sterile bandage was placed over the access site. A fluoroscopic spot imag e was saved to PACS confirming the catheter tip within the SVC. IMPRESSION: SUCCESSFUL PLACEMENT OF A 5 FR DUAL LUMEN 36 CM PICC IN THE LEFT BASILIC VEIN. COMMENT: Patient medication list reviewed: Yes- Quality ID# [id number]:Eligible professional attests to doc umenting in the medical record they obtained, updated, or reviewed the patient's current medications. . Quality ID 145: Final reports for procedures using fluoroscopy that document radiation exposure ayad britt, or exposure time and number of fluorographic images (if radiation exposure indices are not avail able) Quality ID #76: The patient was prepped and draped using maximum sterile barrier technique including cap, mask, sterile gown, sterile gloves, a large sterile sheet, hand hygiene, and 2% Chlorhexidine fo r cutaneous antisepsis. When ultrasound is used, sterile ultrasound techniques are followed requiring sterile gel and sterile probes. TECHNICAL DOCUMENTATION: JOB ID: [id number] [employer]- All Rights Reserved
[2017-10-14] MEDS ORDERED: (PENDING PHARMACY ID) (Naloxegol Oxalate 25 MG) PO SCH (10:00)
[2017-10-14] MEDS ORDERED: CHOLECALCIFEROL (D3) 1,000 UNIT TABLET PO SCH (10:00)
[2017-10-14] MEDS ORDERED: LIDOCAINE 2% INJ-PF (20 MG/ML) 2 ML AMPUL ONE (10:00)
[2017-10-14] MEDS ORDERED: ONDANSETRON HCL INJ/PF 4 MG/2 ML SDV ONE (10:00)
[2017-10-14] MEDS ORDERED: CEFAZOLIN INJ 1 GM VIAL ONE (11:16)
[2017-10-14] MEDS ORDERED: CLINDAMYCIN 600 MG/D5W RTU 600 MG/50 ML RTUPB IV ONE (11:57)
[2017-10-14] MEDS ORDERED: LIDOCAINE 1%/EPINEPHRINE INJ 20 ML VIAL ONE (12:22)
[2017-10-14] MEDS ORDERED: BUPIVACAINE HCL 0.5 % INJ/PF 30 ML SDV ONE (12:22)
[2017-10-14] MEDS ORDERED: DIPHENHYDRAMINE HCL 50 MG/ML VIAL IV PRN (12:33)
[2017-10-14] MEDS ORDERED: PROMETHAZINE HCL INJ 25 MG/1 ML VIAL IV PRN (12:33)
[2017-10-14] MEDS ORDERED: FENTANYL CITRATE INJ/PF 100 MCG/2 ML AMPUL IV PRN ×3 (12:33)
--- NOTE | 2017-10-14 12:42 | Operative Report ---
Operative Report DATE OF SURGERY: 10/14/17 PREOPERATIVE DIAGNOSIS: Left femoral neck fracture OPERATION: Percutaneous fixation left femoral neck fracture SURGEON: [facility] ANESTHESIA: LMAC ESTIMATED BLOOD LOSS: Minimal PROCEDURE: With the patient supine on the fracture table the left lower extremities prepped and draped in sterile fashion. Under fluoroscopic guidance, 3 pins were placed percutaneously through the lateral femur up into the femoral neck. Over these pins 6.5 mm Jerome titanium screws are advanced with washers. The pin placement in the fracture reduction are again examined both in AP and lateral dimensions and felt to be acceptable. This point the guide pins were removed. The wound is irrigated. Is closed with Vicryl followed by cameron. Sterile dressings applied and the patient's return to the PACU in satisfactory condition.
[2017-10-14] MEDS ORDERED: ONDANSETRON 4 MG TAB.RAPDIS SL PRN (14:17)
[2017-10-14] MEDS ORDERED: RINGERS SOLUTION,LACTATED 1,000 ML IV PRN (14:17)
[2017-10-14] MEDS ORDERED: MUPIROCIN 2% OINTMENT 22 GM TOP PRN (14:18)
[2017-10-14] MEDS ORDERED: NORMAL SALINE 10 ML SDV (AFTER EACH USE) IV PRN (14:28)
[2017-10-14] MEDS ORDERED: HYDROMORPHONE HCL INJ/PF 2 MG/ML AMPULE IV PRN (14:30)
--- NOTE | 2017-10-14 14:38 | RADIOLOGY REPORT (SQ) ---
EXAM DESCRIPTION: NO CHG FLUORO; HIP LEFT AP/LATERAL COMPLETED DATE/TIME: 10/14/2017 2:26 pm REASON FOR STUDY: LEFT HIP PERCUTANEOUS PINNING ASSISTED W/ FLUORO IN OR COMPARISON: None. FLUOROSCOPY TIME: 0.2 minutes 2 images saved to PACS. TECHNIQUE: Intra-operative images acquired during surgical procedure to evaluate progress. NUMBER OF IMAGES: 2 LIMITATIONS: None. FINDINGS: Dynamic hip compression screw fixation of femoral neck fracture. Alignment is anatomic. IMPRESSION: IMAGE(S) OBTAINED DURING PROCEDURE. COMMENT: Quality ID 145: Final reports for procedures using fluoroscopy that document radiation exp osure indices, or exposure time and number of fluorographic images (if radiation exposure indices are not available) Please consult full operative report of the attending physician for description of the procedure. TECHNICAL DOCUMENTATION: JOB ID: [id number] [employer]- All Rights Reserved
--- NOTE | 2017-10-14 14:38 | RADIOLOGY REPORT (SQ) ---
EXAM DESCRIPTION: NO CHG FLUORO; HIP LEFT AP/LATERAL COMPLETED DATE/TIME: 10/14/2017 2:26 pm REASON FOR STUDY: LEFT HIP PERCUTANEOUS PINNING ASSISTED W/ FLUORO IN OR COMPARISON: None. FLUOROSCOPY TIME: 0.2 minutes 2 images saved to PACS. TECHNIQUE: Intra-operative images acquired during surgical procedure to evaluate progress. NUMBER OF IMAGES: 2 LIMITATIONS: None. FINDINGS: Dynamic hip compression screw fixation of femoral neck fracture. Alignment is anatomic. IMPRESSION: IMAGE(S) OBTAINED DURING PROCEDURE. COMMENT: Quality ID 145: Final reports for procedures using fluoroscopy that document radiation exp osure indices, or exposure time and number of fluorographic images (if radiation exposure indices are not available) Please consult full operative report of the attending physician for description of the procedure. TECHNICAL DOCUMENTATION: JOB ID: [id number] [employer]- All Rights Reserved
[2017-10-14] MEDS: OXYCODONE HCL IR 5 MG TABLET PO PRN (15:31)
[2017-10-14] MEDS: LIDOCAINE 5% (700 MG) TRANSDERMAL ADH..PATCH TP SCH (15:48)
[2017-10-14] MEDS: DOCUSATE SODIUM 100 MG CAPSULE PO SCH ×2 (15:48→18:09)
[2017-10-14] MEDS: CALCIUM CARBONATE 500 MG TAB.CHEW PO SCH ×3 (15:48→21:14)
[2017-10-14] MEDS: CYANOCOBALAMIN (VITAMIN B-12) 1,000 MCG TABLET PO SCH (15:48)
[2017-10-14] MEDS: LURASIDONE HCL 40 MG TABLET PO SCH ×2 (15:48→21:14)
[2017-10-14] MEDS: MULTIVITAMINS W-IRON TABLET, CHEWABLE PO SCH (15:48)
[2017-10-14] MEDS: NYSTATIN TOPICAL POWDER 15 GM TP SCH ×2 (15:48→18:07)
--- NOTE | 2017-10-14 15:53 | PDOC PROGRESS REPORT ---
Subjective Progress Note for:: 10/14/17 Subjective:: This is a follow-up visit for hip fracture. Patient states she is currently in pain. She is asked her nurse for some IV pain medication. She denies any chest pain or shortness of breath at this time. Reason For Visit: HIP FRACTURE Physical Exam Vital Signs: Temp Pulse Resp BP Pulse Ox 99 F 104 H 16 103/77 100 10/14/17 13:41 10/14/17 13:41 10/14/17 13:41 10/14/17 13:41 10/14/17 13:41 Intake & Output 10/13/17 10/14/17 10/15/17 06:59 06:59 06:59 Intake Total 500 Output Total 600 Balance -100 Weight 52.163 kg GENERAL: This is a well-developed thin frail-appearing white female resting in bed postop currently in no acute distress. HEART: Tachycardic. No murmurs rubs or gallops. LUNGS: Clear to auscultation bilaterally with equal rise and fall of the chest. I am not able to auscultate posteriorly since she is just coming from surgery and finds it difficult to sit up and lean forward. ABDOMEN: Soft, nontender, nondistended with normoactive bowel sounds EXTREMETIES: No clubbing, cyanosis. 2+ pitting lower extremity edema. 2+ peripheral pulses bilaterally. NEURO: Awake, alert and oriented 3. Cranial nerves II through XII are grossly intact. Results Laboratory Results: 10/14/17 10/14/17 02:14 02:43 Ionized Calcium Ney 1.10 L Urine Color YELLOW Urine Appearance SLIGHTLY-CLOUDY Urine pH 5.0 Ur Specific [place] 1.031 Urine Protein 30 H Urine Glucose (UA) NEGATIVE Urine Ketones NEGATIVE Urine Blood NEGATIVE Urine Nitrite NEGATIVE Ur Leukocyte Esterase NEGATIVE Ur Squamous Epith Cells FEW Impressions: Chest X-Ray 10/13/17 00:00 IMPRESSION: NO ACUTE RADIOGRAPHIC FINDING IN THE CHEST.Residual tiny right pleural effusion. Femur X-Ray 10/13/17 20:07 IMPRESSION: NO RADIOGRAPHIC EVIDENCE OF ACUTE INJURY. Pelvis X-Ray 10/13/17 20:07 IMPRESSION: Left femoral neck fracture without significant displacement. Tibia/Fibula X-Ray 10/13/17 20:08 IMPRESSION: NO RADIOGRAPHIC EVIDENCE OF ACUTE INJURY. Fluoroscopy 10/14/17 00:00 IMPRESSION: IMAGE(S) OBTAINED DURING PROCEDURE. Guidance Fluoroscopy 10/14/17 00:00 IMPRESSION: SUCCESSFUL PLACEMENT OF A 5 FR DUAL LUMEN 36 CM PICC IN THE LEFT BASILIC VEIN. Hip X-Ray 10/14/17 00:00 IMPRESSION: IMAGE(S) OBTAINED DURING PROCEDURE. Interventional Vascular Procedure 10/14/17 00:00 IMPRESSION: SUCCESSFUL PLACEMENT OF A 5 FR DUAL LUMEN 36 CM PICC IN THE LEFT BASILIC VEIN. PICC Line Insertion 10/14/17 00:00 IMPRESSION: SUCCESSFUL PLACEMENT OF A 5 FR DUAL LUMEN 36 CM PICC IN THE LEFT BASILIC VEIN. Assessment & Plan - Diagnosis (1) Fracture of femoral neck, left Qualifiers: Encounter type: initial encounter Fracture type: closed Qualified Code(s) : S72.002A - Fracture of unspecified part of neck of left femur, initial encounter for closed fracture Is this a current diagnosis for this admission?: Yes Plan: Management per orthopedics. Status post pinning. (2) Fall Qualifiers: Encounter type: initial encounter Qualified Code(s): W19.XXXA - Unspecified fall, initial encounter Plan: PT consult from the morning. Fall precautions. (3) Status post gastric bypass for obesity Is this a current diagnosis for this admission?: Yes Plan: Supportive care. (4) Chronic liver failure Qualifiers: Hepatic coma status: without hepatic coma Qualified Code(s): K72.10 - Chronic hepatic failure without coma Plan: Patient has chronic liver failure. She has chronic lower extremity edema. Diuresis as appropriate. (5) Essential hypertension Is this a current diagnosis for this admission?: Yes Plan: I do not see that the patient is on any antihypertensives. Any rate the patient 's blood pressure has been low or either reasonably normal. (6) Malnutrition Plan: Patient has protein calorie malnutrition. She is status post gastric bypass. Albumin is currently 1.4. Consult dietary. Encourage p.o. (7) Decubitus ulcer of left buttock, stage 2 Is this a current diagnosis for this admission?: Yes Plan: Local wound care. (8) Opiate dependence Qualifiers: Substance use status: in remission Qualified Code(s): F11.21 - Opioid dependence, in remission Is this a current diagnosis for this admission?: Yes Plan: Continue home regimen. (9) Hemiparesis affecting left side as late effect of cerebrovascular accident Is this a current diagnosis for this admission?: Yes Plan: Supportive care - Time Time Spent with patient: 15-24 minutes - Inpatient Certification Medical Necessity: Need Close Monitoring Due to Risk of Patient Decompensation
[2017-10-14] MEDS: ACETAMINOPHEN 325 MG TABLET PO PRN (18:11)
[2017-10-14] MEDS: MIRTAZAPINE 15 MG TABLET PO SCH (21:13)
[2017-10-14] MEDS: MORPHINE SULFATE 10 MG/ML INJ IV PRN (21:13)
[2017-10-14] MEDS: LORAZEPAM 1 MG TABLET PO PRN (21:13)
[2017-10-14] MEDS: CLINDAMYCIN 600 MG/D5W RTU 600 MG/50 ML RTUPB IV SCH (21:13)
[2017-10-14] MEDS: NORMAL SALINE 10 ML SDV (SCHEDULED) IV SCH (21:14)
[2017-10-14] MEDS: PHARMACY COMMUNICATION ORDER MC SCH (21:26)
[2017-10-14] MEDS ORDERED: NYSTATIN TOPICAL POWDER 15 GM TOP SCH (22:00)
[2017-10-14] MEDS ORDERED: GABAPENTIN 300 MG CAPSULE PO SCH (22:00)
[2017-10-15] MEDS: CLINDAMYCIN 600 MG/D5W RTU 600 MG/50 ML RTUPB IV SCH (04:32)
[2017-10-15] MEDS: LANSOPRAZOLE 30 MG TAB.RAP.DR PO SCH (06:44)
[2017-10-15] MEDS: OXYCODONE HCL IR 5 MG TABLET PO PRN ×2 (06:44→16:07)
[2017-10-15] MEDS: GABAPENTIN 300 MG CAPSULE PO SCH ×3 (06:44→22:04)
[2017-10-15 07:05] LABS: ABSOLUTE LYMPHOCYTES (AUTO) 2.6 10^3/uL (0.5-4.7); ABSOLUTE MONOCYTES (AUTO) 0.4 10^3/uL (0.1-1.4); ABSOLUTE NEUT (AUTO) 3.9 10^3/uL (1.7-8.2); BASOPHILS % (AUTO) 0.4 % (0-2); EOSINOPHILS % (AUTO) 0.3 % (0-6); HEMATOCRIT 26.1 % (36.0-47.0); HEMOGLOBIN 8.8 g/dL (12.0-15.5); HGB HCT DIFFERENCE 0.3; MEAN CORPUSCULAR HEMOGLOBIN 31.8 pg (27.0-33.4); MEAN CORPUSCULAR HGB CONC 33.8 g/dL (32.0-36.0); MEAN CORPUSCULAR VOLUME 94 fl (80-97); MONOCYTES % (AUTO) 5.1 % (3-13); RED BLOOD COUNT 2.77 10^6/uL (3.72-5.28); RED CELL DISTRIBUTION WIDTH 15.6 % (11.5-14.0); SEGMENTED NEUTROPHILS % (AUTO) 56.2 % (42-78)
[2017-10-15 07:37] LABS: ALANINE AMINOTRANSFERASE 38 U/L (9-52); ALBUMIN 1.3 g/dL (3.5-5.0); ALKALINE PHOSPHATASE 142 U/L (38-126); ASPARTATE AMINO TRANSFERASE 17 U/L (14-36); BILIRUBIN,DIRECT 0.2 mg/dL (0.0-0.4); BILIRUBIN,TOTAL 0.3 mg/dL (0.2-1.3); BLOOD UREA NITROGEN 9 mg/dL (7-20); CARBON DIOXIDE 27 mmol/L (22-30); CREATININE RESULT 0.65 mg/dL (0.52-1.25); GLUCOSE 61 mg/dL (75-110); MAGNESIUM 1.7 mg/dL (1.6-2.3); PHOSPHORUS 3.1 mg/dL (2.5-4.5); TOTAL PROTEIN 3.3 g/dL (6.3-8.2)
[2017-10-15 07:45] LABS: PARTIAL THROMBOPLASTIN TIME 37.3 SEC (23.5-35.8)
[2017-10-15 07:50] LABS: CHLORIDE 109 mmol/L (98-107); POTASSIUM 3.9 mmol/L (3.6-5.0); SODIUM 139.1 mmol/L (137-145)
[2017-10-15 07:52] LABS: ANION GAP 3 (5-19)
[2017-10-15 07:53] LABS: CALCIUM 6.5 mg/dL (8.4-10.2)
[2017-10-15] MEDS: MORPHINE SULFATE 10 MG/ML INJ IV PRN ×4 (08:55→22:04)
[2017-10-15] MEDS: CALCIUM CARBONATE 500 MG TAB.CHEW PO SCH ×4 (08:55→22:04)
[2017-10-15] MEDS ORDERED: MULTIVITAMIN TABLET PO SCH (10:00)
[2017-10-15] MEDS ORDERED: (PENDING PHARMACY ID) (Naloxegol Oxalate 25 MG) PO SCH (10:00)
[2017-10-15] MEDS ORDERED: CYANOCOBALAMIN (VITAMIN B-12) 1,000 MCG TABLET PO SCH (10:00)
[2017-10-15] MEDS: NYSTATIN TOPICAL POWDER 15 GM TP SCH ×2 (10:26→17:41)
[2017-10-15] MEDS: LURASIDONE HCL 40 MG TABLET PO SCH ×2 (10:27→22:06)
[2017-10-15] MEDS: CHOLECALCIFEROL (D3) 1,000 UNIT TABLET PO SCH (10:27)
[2017-10-15] MEDS: DOCUSATE SODIUM 100 MG CAPSULE PO SCH ×2 (10:27→17:06)
[2017-10-15] MEDS: CYANOCOBALAMIN (VITAMIN B-12) 1,000 MCG TABLET PO SCH (10:27)
[2017-10-15] MEDS: MULTIVITAMINS W-IRON TABLET, CHEWABLE PO SCH (10:27)
[2017-10-15] MEDS: NORMAL SALINE 10 ML SDV (SCHEDULED) IV SCH ×2 (10:28→22:13)
[2017-10-15] MEDS: LIDOCAINE 5% (700 MG) TRANSDERMAL ADH..PATCH TP SCH (11:29)
[2017-10-15] MEDS: ACETAMINOPHEN 325 MG TABLET PO PRN (16:29)
[2017-10-15] MEDS: LORAZEPAM 1 MG TABLET PO PRN (16:29)
--- NOTE | 2017-10-15 16:33 | PDOC PROGRESS REPORT ---
Subjective Progress Note for:: 10/15/17 Subjective:: Patient reports that her hip pain is tolerable. Reason For Visit: HIP FRACTURE Physical Exam Vital Signs: Temp Pulse Resp BP Pulse Ox 99.8 F 116 H 16 105/74 83 L 10/15/17 12:08 10/15/17 14:00 10/15/17 13:52 10/15/17 12:08 10/15/17 12:08 Intake & Output 10/14/17 10/15/17 10/16/17 06:59 06:59 06:59 Intake Total 2900 480 Output Total 710 350 Balance 2190 130 Weight 52.1 kg General appearance: PRESENT: no acute distress Eye exam: PRESENT: conjunctiva pink. ABSENT: scleral icterus Mouth exam: PRESENT: moist, tongue midline Neck exam: ABSENT: JVD Respiratory exam: PRESENT: clear to auscultation rona. ABSENT: rales, rhonchi, wheezes Cardiovascular exam: PRESENT: RRR. ABSENT: diastolic murmur, rubs, systolic murmur GI/Abdominal exam: PRESENT: normal bowel sounds, soft. ABSENT: distended, guarding, mass, organolmegaly, rebound, tenderness Extremities exam: ABSENT: calf tenderness, clubbing, pedal edema Neurological exam: PRESENT: alert, awake, oriented to person, oriented to place , oriented to time, oriented to situation, CN II-XII grossly intact. ABSENT: motor sensory deficit Psychiatric exam: PRESENT: appropriate affect Skin exam: PRESENT: dry, intact, warm. ABSENT: cyanosis, rash Results Laboratory Results: 10/15/17 07:15 10/15/17 06:20 10/15/17 10/15/17 10/15/17 06:20 07:15 07:15 WBC 7.0 RBC 2.77 L Hgb 8.8 L Hct 26.1 L MCV 94 MCH 31.8 MCHC 33.8 RDW 15.6 H Plt Count 189 Seg Neutrophils % 56.2 Lymphocytes % 38.0 Monocytes % 5.1 Eosinophils % 0.3 Basophils % 0.4 Absolute Neutrophils 3.9 Absolute Lymphocytes 2.6 Absolute Monocytes 0.4 Absolute Eosinophils 0.0 Absolute Basophils 0.0 Sodium 139.1 Potassium 3.9 Chloride 109 H Carbon Dioxide 27 Anion Gap 3 L BUN 9 Creatinine 0.65 Est GFR ( Amer) > 60 Est GFR (Non-Af Amer) > 60 Glucose 61 L Calcium 6.5 L* Phosphorus 3.1 Magnesium 1.7 Total Bilirubin 0.3 AST 17 ALT 38 Alkaline Phosphatase 142 H Total Protein 3.3 L Albumin 1.3 L Blood Type O POSITIVE Antibody Screen NEGATIVE Impressions: Chest X-Ray 10/13/17 00:00 IMPRESSION: NO ACUTE RADIOGRAPHIC FINDING IN THE CHEST.Residual tiny right pleural effusion. Femur X-Ray 10/13/17 20:07 IMPRESSION: NO RADIOGRAPHIC EVIDENCE OF ACUTE INJURY. Pelvis X-Ray 10/13/17 20:07 IMPRESSION: Left femoral neck fracture without significant displacement. Tibia/Fibula X-Ray 10/13/17 20:08 IMPRESSION: NO RADIOGRAPHIC EVIDENCE OF ACUTE INJURY. Fluoroscopy 10/14/17 00:00 IMPRESSION: IMAGE(S) OBTAINED DURING PROCEDURE. Guidance Fluoroscopy 10/14/17 00:00 IMPRESSION: SUCCESSFUL PLACEMENT OF A 5 FR DUAL LUMEN 36 CM PICC IN THE LEFT BASILIC VEIN. Hip X-Ray 10/14/17 00:00 IMPRESSION: IMAGE(S) OBTAINED DURING PROCEDURE. Interventional Vascular Procedure 10/14/17 00:00 IMPRESSION: SUCCESSFUL PLACEMENT OF A 5 FR DUAL LUMEN 36 CM PICC IN THE LEFT BASILIC VEIN. PICC Line Insertion 10/14/17 00:00 IMPRESSION: SUCCESSFUL PLACEMENT OF A 5 FR DUAL LUMEN 36 CM PICC IN THE LEFT BASILIC VEIN. Assessment & Plan - Diagnosis (1) Fracture of femoral neck, left Qualifiers: Encounter type: initial encounter Fracture type: closed Qualified Code(s) : S72.002A - Fracture of unspecified part of neck of left femur, initial encounter for closed fracture Is this a current diagnosis for this admission?: Yes Plan: Patient had surgery yesterday without difficulty. She should hopefully get up today with physical therapy. (2) Status post gastric bypass for obesity Is this a current diagnosis for this admission?: Yes (3) Chronic liver failure Qualifiers: Hepatic coma status: without hepatic coma Qualified Code(s): K72.10 - Chronic hepatic failure without coma Is this a current diagnosis for this admission?: Yes (4) Diabetes mellitus type 2 in obese Is this a current diagnosis for this admission?: Yes Plan: Patient's blood sugars have been in the normal range. (5) Essential hypertension Is this a current diagnosis for this admission?: Yes (6) GERD (gastroesophageal reflux disease) Qualifiers: Esophagitis presence: without esophagitis Qualified Code(s): K21.9 - Gastro -esophageal reflux disease without esophagitis Is this a current diagnosis for this admission?: Yes (7) Hypothyroidism Qualifiers: Hypothyroidism type: unspecified Qualified Code(s): E03.9 - Hypothyroidism , unspecified Is this a current diagnosis for this admission?: Yes - Time Time Spent with patient: 25-34 minutes - Inpatient Certification Medical Necessity: Need Close Monitoring Due to Risk of Patient Decompensation
[2017-10-15] MEDS ORDERED: NORMAL SALINE 500 ML IV ONE (18:15)
[2017-10-15] MEDS: MIRTAZAPINE 15 MG TABLET PO SCH (22:04)
[2017-10-15] MEDS: PHARMACY COMMUNICATION ORDER MC SCH (22:12)
[2017-10-16] MEDS: MORPHINE SULFATE 10 MG/ML INJ IV PRN ×4 (03:54→20:14)
[2017-10-16] MEDS: LANSOPRAZOLE 30 MG TAB.RAP.DR PO SCH (05:51)
[2017-10-16] MEDS: GABAPENTIN 300 MG CAPSULE PO SCH ×3 (05:51→22:04)
[2017-10-16 07:36] LABS: ABSOLUTE LYMPHOCYTES (AUTO) 2.9 10^3/uL (0.5-4.7); ABSOLUTE MONOCYTES (AUTO) 0.3 10^3/uL (0.1-1.4); ABSOLUTE NEUT (AUTO) 3.2 10^3/uL (1.7-8.2); BASOPHILS % (AUTO) 0.4 % (0-2); EOSINOPHILS % (AUTO) 0.4 % (0-6); HEMATOCRIT 27.8 % (36.0-47.0); HEMOGLOBIN 9.5 g/dL (12.0-15.5); HGB HCT DIFFERENCE 0.7; LYMPHOCYTES % (AUTO) 44.8 % (13-45); MEAN CORPUSCULAR HGB CONC 34.1 g/dL (32.0-36.0); MEAN CORPUSCULAR VOLUME 94 fl (80-97); MONOCYTES % (AUTO) 4.1 % (3-13); RED BLOOD COUNT 2.97 10^6/uL (3.72-5.28); SEGMENTED NEUTROPHILS % (AUTO) 50.3 % (42-78); WHITE BLOOD COUNT 6.4 10^3/uL (4.0-10.5)
[2017-10-16] MEDS: CALCIUM CARBONATE 500 MG TAB.CHEW PO SCH ×4 (08:43→22:05)
[2017-10-16] MEDS: CYANOCOBALAMIN (VITAMIN B-12) 1,000 MCG TABLET PO SCH (11:13)
[2017-10-16] MEDS: CHOLECALCIFEROL (D3) 1,000 UNIT TABLET PO SCH (11:13)
[2017-10-16] MEDS: LIDOCAINE 5% (700 MG) TRANSDERMAL ADH..PATCH TP SCH (11:14)
[2017-10-16] MEDS: LURASIDONE HCL 40 MG TABLET PO SCH ×2 (11:14→22:04)
[2017-10-16] MEDS: NORMAL SALINE 10 ML SDV (SCHEDULED) IV SCH ×2 (11:14→22:05)
[2017-10-16] MEDS: NYSTATIN TOPICAL POWDER 15 GM TP SCH ×2 (11:15→18:06)
[2017-10-16] MEDS: DOCUSATE SODIUM 100 MG CAPSULE PO SCH ×2 (11:15→17:59)
[2017-10-16] MEDS: MULTIVITAMINS W-IRON TABLET, CHEWABLE PO SCH (11:15)
--- NOTE | 2017-10-16 12:10 | PDOC PROGRESS REPORT ---
Subjective Progress Note for:: 10/16/17 Subjective:: Patient reports that her hip pain is tolerable. She had an episode of tachycardia yesterday afternoon responded to IV fluids. Reason For Visit: HIP FRACTURE Physical Exam Vital Signs: Temp Pulse Resp BP Pulse Ox 99.2 F 96 16 98/68 L 96 10/16/17 07:39 10/16/17 07:39 10/16/17 07:39 10/16/17 07:39 10/16/17 07:39 Intake & Output 10/15/17 10/16/17 10/17/17 06:59 06:59 06:59 Intake Total 2900 2600 Output Total 710 350 Balance 2190 2250 Weight 52.1 kg General appearance: PRESENT: no acute distress Eye exam: PRESENT: conjunctiva pink. ABSENT: scleral icterus Ear exam: PRESENT: normal external ear exam Neck exam: ABSENT: JVD Respiratory exam: PRESENT: clear to auscultation rona. ABSENT: rales, rhonchi, wheezes Cardiovascular exam: PRESENT: RRR. ABSENT: diastolic murmur, rubs, systolic murmur GI/Abdominal exam: PRESENT: normal bowel sounds, soft. ABSENT: distended, guarding, mass, organolmegaly, rebound, tenderness Extremities exam: ABSENT: calf tenderness, clubbing, pedal edema Neurological exam: PRESENT: alert, awake, oriented to person, oriented to place , oriented to time, oriented to situation, CN II-XII grossly intact. ABSENT: motor sensory deficit Psychiatric exam: PRESENT: appropriate affect Skin exam: PRESENT: dry, intact, warm. ABSENT: cyanosis, rash Results Laboratory Results: 10/16/17 06:58 10/15/17 06:20 10/16/17 06:58 WBC 6.4 RBC 2.97 L Hgb 9.5 L Hct 27.8 L MCV 94 MCH 32.0 MCHC 34.1 RDW 16.0 H Plt Count 117 L Seg Neutrophils % 50.3 Lymphocytes % 44.8 Monocytes % 4.1 Eosinophils % 0.4 Basophils % 0.4 Absolute Neutrophils 3.2 Absolute Lymphocytes 2.9 Absolute Monocytes 0.3 Absolute Eosinophils 0.0 Absolute Basophils 0.0 10/14/17 02:14 Catheterized Urine Urine Culture - Final NO GROWTH 2 DAYS Impressions: Chest X-Ray 10/13/17 00:00 IMPRESSION: NO ACUTE RADIOGRAPHIC FINDING IN THE CHEST.Residual tiny right pleural effusion. Femur X-Ray 10/13/17 20:07 IMPRESSION: NO RADIOGRAPHIC EVIDENCE OF ACUTE INJURY. Pelvis X-Ray 10/13/17 20:07 IMPRESSION: Left femoral neck fracture without significant displacement. Tibia/Fibula X-Ray 10/13/17 20:08 IMPRESSION: NO RADIOGRAPHIC EVIDENCE OF ACUTE INJURY. Fluoroscopy 10/14/17 00:00 IMPRESSION: IMAGE(S) OBTAINED DURING PROCEDURE. Guidance Fluoroscopy 10/14/17 00:00 IMPRESSION: SUCCESSFUL PLACEMENT OF A 5 FR DUAL LUMEN 36 CM PICC IN THE LEFT BASILIC VEIN. Hip X-Ray 10/14/17 00:00 IMPRESSION: IMAGE(S) OBTAINED DURING PROCEDURE. Interventional Vascular Procedure 10/14/17 00:00 IMPRESSION: SUCCESSFUL PLACEMENT OF A 5 FR DUAL LUMEN 36 CM PICC IN THE LEFT BASILIC VEIN. PICC Line Insertion 10/14/17 00:00 IMPRESSION: SUCCESSFUL PLACEMENT OF A 5 FR DUAL LUMEN 36 CM PICC IN THE LEFT BASILIC VEIN. Assessment & Plan - Diagnosis (1) Fracture of femoral neck, left Qualifiers: Encounter type: initial encounter Fracture type: closed Qualified Code(s) : S72.002A - Fracture of unspecified part of neck of left femur, initial encounter for closed fracture Is this a current diagnosis for this admission?: Yes Plan: Patient had surgery without difficulty. Continue with physical therapy (2) Status post gastric bypass for obesity Is this a current diagnosis for this admission?: Yes (3) Chronic liver failure Qualifiers: Hepatic coma status: without hepatic coma Qualified Code(s): K72.10 - Chronic hepatic failure without coma Is this a current diagnosis for this admission?: Yes (4) Diabetes mellitus type 2 in obese Is this a current diagnosis for this admission?: Yes Plan: Patient's blood sugars have been in the normal range. (5) Essential hypertension Is this a current diagnosis for this admission?: Yes (6) GERD (gastroesophageal reflux disease) Qualifiers: Esophagitis presence: without esophagitis Qualified Code(s): K21.9 - Gastro -esophageal reflux disease without esophagitis Is this a current diagnosis for this admission?: Yes (7) Hypothyroidism Qualifiers: Hypothyroidism type: unspecified Qualified Code(s): E03.9 - Hypothyroidism , unspecified Is this a current diagnosis for this admission?: Yes - Time Time Spent with patient: 25-34 minutes - Inpatient Certification Medical Necessity: Need Close Monitoring Due to Risk of Patient Decompensation - Plan Summary Plan Summary: Patient will most likely need to go to skilled nurse facility for short-term rehab.
[2017-10-16] MEDS: OXYCODONE HCL IR 5 MG TABLET PO PRN (18:06)
[2017-10-16] MEDS: MIRTAZAPINE 15 MG TABLET PO SCH (22:05)
[2017-10-17] MEDS: MORPHINE SULFATE 10 MG/ML INJ IV PRN ×5 (00:47→22:14)
[2017-10-17] MEDS: LORAZEPAM 1 MG TABLET PO PRN ×3 (00:47→23:28)
[2017-10-17] MEDS: PHARMACY COMMUNICATION ORDER MC SCH ×2 (00:47→22:15)
[2017-10-17 04:30] LABS: ABSOLUTE BASOPHILS # (AUTO) 0.1 10^3/uL (0.0-0.2); ABSOLUTE MONOCYTES (AUTO) 0.2 10^3/uL (0.1-1.4); ABSOLUTE NEUT (AUTO) 2.6 10^3/uL (1.7-8.2); BASOPHILS % (AUTO) 1.2 % (0-2); EOSINOPHILS % (AUTO) 0.6 % (0-6); HEMATOCRIT 22.8 % (36.0-47.0); HGB HCT DIFFERENCE 0.3; LYMPHOCYTES % (AUTO) 50.3 % (13-45); MEAN CORPUSCULAR HEMOGLOBIN 31.9 pg (27.0-33.4); MEAN CORPUSCULAR VOLUME 94 fl (80-97); MONOCYTES % (AUTO) 4.1 % (3-13); RED BLOOD COUNT 2.43 10^6/uL (3.72-5.28); SEGMENTED NEUTROPHILS % (AUTO) 43.8 % (42-78)
[2017-10-17 04:32] LABS: HEMOGLOBIN 7.7 g/dL (12.0-15.5)
[2017-10-17 04:45] LABS: BLOOD UREA NITROGEN 10 mg/dL (7-20); CARBON DIOXIDE 29 mmol/L (22-30); CHLORIDE 110 mmol/L (98-107); CREATININE RESULT 0.54 mg/dL (0.52-1.25); GLUCOSE 69 mg/dL (75-110)
[2017-10-17 04:56] LABS: POTASSIUM 3.3 mmol/L (3.6-5.0); SODIUM 139.7 mmol/L (137-145)
[2017-10-17 05:00] LABS: ANION GAP 1 (5-19)
[2017-10-17 05:01] LABS: CALCIUM 6.6 mg/dL (8.4-10.2)
[2017-10-17] MEDS: OXYCODONE HCL IR 5 MG TABLET PO PRN ×4 (05:43→23:28)
[2017-10-17] MEDS: GABAPENTIN 300 MG CAPSULE PO SCH ×3 (05:43→22:14)
[2017-10-17] MEDS: LANSOPRAZOLE 30 MG TAB.RAP.DR PO SCH (05:43)
[2017-10-17] MEDS ORDERED: NORMAL SALINE 250 ML IV PRN (06:05)
--- NOTE | 2017-10-17 06:25 | PDOC PROGRESS REPORT ---
Subjective Progress Note for:: 10/17/17 Subjective:: "I am doing better than the other day" Reason For Visit: HIP FRACTURE Physical Exam Vital Signs: Temp Pulse Resp BP Pulse Ox 37.0 C 91 16 100/63 98 10/17/17 04:34 10/17/17 04:34 10/17/17 04:34 10/17/17 04:34 10/17/17 04:34 Intake & Output 10/15/17 10/16/17 10/17/17 06:59 06:59 06:59 Intake Total 2900 2600 560 Output Total 606 539 7389 Balance 2190 2250 -465 Weight 52.1 kg 53.4 kg General appearance: PRESENT: no acute distress Head exam: PRESENT: normocephalic Respiratory exam: PRESENT: unlabored Cardiovascular exam: PRESENT: RRR, tachycardia Pulses: PRESENT: +1 pedal pulses bilateral Vascular exam: PRESENT: normal capillary refill GI/Abdominal exam: PRESENT: soft Rectal exam: PRESENT: deferred Extremities exam: PRESENT: other - Left lower extremity dressing with some serous drainage. This is changed. The wound is well approximated with cameron without erythema. There is generalized induration about the lower extremity which is gravity dependent Neurological exam: PRESENT: alert, awake, oriented to person, oriented to place , oriented to time, oriented to situation. ABSENT: motor sensory deficit Psychiatric exam: PRESENT: appropriate affect, normal mood. ABSENT: homicidal ideation, suicidal ideation Skin exam: PRESENT: dry, intact, warm. ABSENT: cyanosis, rash Results Laboratory Results: 10/17/17 04:10 10/17/17 04:10 10/15/17 10/16/17 10/17/17 07:15 06:58 03:30 WBC 6.4 Cancelled RBC 2.97 L Cancelled Hgb 9.5 L Cancelled Hct 27.8 L Cancelled MCV 94 Cancelled MCH 32.0 Cancelled MCHC 34.1 Cancelled RDW 16.0 H Cancelled Plt Count 117 L Cancelled Seg Neutrophils % 50.3 Cancelled Lymphocytes % 44.8 Cancelled Monocytes % 4.1 Cancelled Eosinophils % 0.4 Cancelled Basophils % 0.4 Cancelled Absolute Neutrophils 3.2 Cancelled Absolute Lymphocytes 2.9 Cancelled Absolute Monocytes 0.3 Cancelled Absolute Eosinophils 0.0 Cancelled Absolute Basophils 0.0 Cancelled Sodium Potassium Chloride Carbon Dioxide Anion Gap BUN Creatinine Est GFR ( Amer) Est GFR (Non-Af Amer) Glucose Calcium Blood Type O POSITIVE Antibody Screen NEGATIVE 10/17/17 10/17/17 10/17/17 03:30 04:10 04:10 WBC 6.0 RBC 2.43 L Hgb 7.7 L Hct 22.8 L MCV 94 MCH 31.9 MCHC 34.0 RDW 16.0 H Plt Count 150 Seg Neutrophils % 43.8 Lymphocytes % 50.3 H Monocytes % 4.1 Eosinophils % 0.6 Basophils % 1.2 Absolute Neutrophils 2.6 Absolute Lymphocytes 3.0 Absolute Monocytes 0.2 Absolute Eosinophils 0.0 Absolute Basophils 0.1 Sodium Cancelled 139.7 Potassium Cancelled 3.3 L Chloride Cancelled 110 H Carbon Dioxide Cancelled 29 Anion Gap Cancelled 1 L BUN Cancelled 10 Creatinine Cancelled 0.54 Est GFR ( Amer) Cancelled > 60 Est GFR (Non-Af Amer) Cancelled > 60 Glucose Cancelled 69 L Calcium Cancelled 6.6 L* Blood Type Antibody Screen 10/14/17 02:14 Catheterized Urine Urine Culture - Final NO GROWTH 2 DAYS Impressions: Chest X-Ray 10/13/17 00:00 IMPRESSION: NO ACUTE RADIOGRAPHIC FINDING IN THE CHEST.Residual tiny right pleural effusion. Femur X-Ray 10/13/17 20:07 IMPRESSION: NO RADIOGRAPHIC EVIDENCE OF ACUTE INJURY. Pelvis X-Ray 10/13/17 20:07 IMPRESSION: Left femoral neck fracture without significant displacement. Tibia/Fibula X-Ray 10/13/17 20:08 IMPRESSION: NO RADIOGRAPHIC EVIDENCE OF ACUTE INJURY. Fluoroscopy 10/14/17 00:00 IMPRESSION: IMAGE(S) OBTAINED DURING PROCEDURE. Guidance Fluoroscopy 10/14/17 00:00 IMPRESSION: SUCCESSFUL PLACEMENT OF A 5 FR DUAL LUMEN 36 CM PICC IN THE LEFT BASILIC VEIN. Hip X-Ray 10/14/17 00:00 IMPRESSION: IMAGE(S) OBTAINED DURING PROCEDURE. Interventional Vascular Procedure 10/14/17 00:00 IMPRESSION: SUCCESSFUL PLACEMENT OF A 5 FR DUAL LUMEN 36 CM PICC IN THE LEFT BASILIC VEIN. PICC Line Insertion 10/14/17 00:00 IMPRESSION: SUCCESSFUL PLACEMENT OF A 5 FR DUAL LUMEN 36 CM PICC IN THE LEFT BASILIC VEIN. Status: Imported from PACS Assessment & Plan - Diagnosis (1) Fracture of femoral neck, left Qualifiers: Encounter type: initial encounter Fracture type: closed Qualified Code(s) : S72.002A - Fracture of unspecified part of neck of left femur, initial encounter for closed fracture Is this a current diagnosis for this admission?: Yes Plan: 47-year-old white female with multiple medical issues and a left femoral neck fracture status post percutaneous pinning. The patient is making slow steady progress with physical therapy. Probably would be best served with a half-way facility placement. (2) Anemia Qualifiers: Anemia type: other cause Is this a current diagnosis for this admission?: Yes Plan: Patient's hematocrit has dropped to 22%. 2 units of packed red cells will be transfused and labs will be checked in the morning. - Time Time Spent with patient: 15-24 minutes Anticipated discharge: SNF Within: when bed available, Other
[2017-10-17] MEDS: CALCIUM CARBONATE 500 MG TAB.CHEW PO SCH ×4 (08:03→22:14)
[2017-10-17] MEDS: CHOLECALCIFEROL (D3) 1,000 UNIT TABLET PO SCH (11:58)
[2017-10-17] MEDS: CYANOCOBALAMIN (VITAMIN B-12) 1,000 MCG TABLET PO SCH (11:59)
[2017-10-17] MEDS: NYSTATIN TOPICAL POWDER 15 GM TP SCH ×2 (12:00→17:52)
[2017-10-17] MEDS: NORMAL SALINE 10 ML SDV (SCHEDULED) IV SCH ×2 (12:00→22:14)
[2017-10-17] MEDS: DOCUSATE SODIUM 100 MG CAPSULE PO SCH ×2 (12:01→17:52)
[2017-10-17] MEDS: LIDOCAINE 5% (700 MG) TRANSDERMAL ADH..PATCH TP SCH (12:01)
[2017-10-17] MEDS: LURASIDONE HCL 40 MG TABLET PO SCH ×2 (12:01→22:14)
[2017-10-17] MEDS: MULTIVITAMINS W-IRON TABLET, CHEWABLE PO SCH (12:01)
--- NOTE | 2017-10-17 16:04 | PDOC PROGRESS REPORT ---
Subjective Progress Note for:: 10/17/17 Subjective:: Denies any complaints. Reason For Visit: HIP FRACTURE Physical Exam Vital Signs: Temp Pulse Resp BP Pulse Ox 99.4 F 96 16 111/87 H 98 10/17/17 13:53 10/17/17 15:56 10/17/17 15:56 10/17/17 13:53 10/17/17 15:56 Intake & Output 10/16/17 10/17/17 10/18/17 06:59 06:59 06:59 Intake Total 2600 560 300 Output Total 350 1025 Balance 2250 -465 300 Weight 53.4 kg General appearance: PRESENT: no acute distress Eye exam: PRESENT: conjunctiva pink. ABSENT: scleral icterus Mouth exam: PRESENT: moist, tongue midline Neck exam: ABSENT: JVD Respiratory exam: PRESENT: clear to auscultation rona. ABSENT: rales, rhonchi, wheezes Cardiovascular exam: PRESENT: RRR. ABSENT: diastolic murmur, rubs, systolic murmur GI/Abdominal exam: PRESENT: normal bowel sounds, soft. ABSENT: distended, guarding, mass, organolmegaly, rebound, tenderness Extremities exam: ABSENT: calf tenderness, clubbing, pedal edema Neurological exam: PRESENT: alert, awake, oriented to person, oriented to place , oriented to time, oriented to situation, CN II-XII grossly intact. ABSENT: motor sensory deficit Psychiatric exam: PRESENT: appropriate affect Skin exam: PRESENT: dry, intact, warm. ABSENT: cyanosis, rash Results Laboratory Results: 10/17/17 04:10 10/17/17 04:10 10/15/17 10/17/17 10/17/17 07:15 03:30 03:30 WBC Cancelled RBC Cancelled Hgb Cancelled Hct Cancelled MCV Cancelled MCH Cancelled MCHC Cancelled RDW Cancelled Plt Count Cancelled Seg Neutrophils % Cancelled Lymphocytes % Cancelled Monocytes % Cancelled Eosinophils % Cancelled Basophils % Cancelled Absolute Neutrophils Cancelled Absolute Lymphocytes Cancelled Absolute Monocytes Cancelled Absolute Eosinophils Cancelled Absolute Basophils Cancelled Sodium Cancelled Potassium Cancelled Chloride Cancelled Carbon Dioxide Cancelled Anion Gap Cancelled BUN Cancelled Creatinine Cancelled Est GFR ( Amer) Cancelled Est GFR (Non-Af Amer) Cancelled Glucose Cancelled Calcium Cancelled Blood Type O POSITIVE Antibody Screen NEGATIVE 10/17/17 10/17/17 04:10 04:10 WBC 6.0 RBC 2.43 L Hgb 7.7 L Hct 22.8 L MCV 94 MCH 31.9 MCHC 34.0 RDW 16.0 H Plt Count 150 Seg Neutrophils % 43.8 Lymphocytes % 50.3 H Monocytes % 4.1 Eosinophils % 0.6 Basophils % 1.2 Absolute Neutrophils 2.6 Absolute Lymphocytes 3.0 Absolute Monocytes 0.2 Absolute Eosinophils 0.0 Absolute Basophils 0.1 Sodium 139.7 Potassium 3.3 L Chloride 110 H Carbon Dioxide 29 Anion Gap 1 L BUN 10 Creatinine 0.54 Est GFR ( Amer) > 60 Est GFR (Non-Af Amer) > 60 Glucose 69 L Calcium 6.6 L* Blood Type Antibody Screen Impressions: Chest X-Ray 10/13/17 00:00 IMPRESSION: NO ACUTE RADIOGRAPHIC FINDING IN THE CHEST.Residual tiny right pleural effusion. Femur X-Ray 10/13/17 20:07 IMPRESSION: NO RADIOGRAPHIC EVIDENCE OF ACUTE INJURY. Pelvis X-Ray 10/13/17 20:07 IMPRESSION: Left femoral neck fracture without significant displacement. Tibia/Fibula X-Ray 10/13/17 20:08 IMPRESSION: NO RADIOGRAPHIC EVIDENCE OF ACUTE INJURY. Fluoroscopy 10/14/17 00:00 IMPRESSION: IMAGE(S) OBTAINED DURING PROCEDURE. Guidance Fluoroscopy 10/14/17 00:00 IMPRESSION: SUCCESSFUL PLACEMENT OF A 5 FR DUAL LUMEN 36 CM PICC IN THE LEFT BASILIC VEIN. Hip X-Ray 10/14/17 00:00 IMPRESSION: IMAGE(S) OBTAINED DURING PROCEDURE. Interventional Vascular Procedure 10/14/17 00:00 IMPRESSION: SUCCESSFUL PLACEMENT OF A 5 FR DUAL LUMEN 36 CM PICC IN THE LEFT BASILIC VEIN. PICC Line Insertion 10/14/17 00:00 IMPRESSION: SUCCESSFUL PLACEMENT OF A 5 FR DUAL LUMEN 36 CM PICC IN THE LEFT BASILIC VEIN. Assessment & Plan - Diagnosis (1) Fracture of femoral neck, left Qualifiers: Encounter type: initial encounter Fracture type: closed Qualified Code(s) : S72.002A - Fracture of unspecified part of neck of left femur, initial encounter for closed fracture Is this a current diagnosis for this admission?: Yes Plan: Patient had surgery without difficulty. Continue with physical therapy (2) Status post gastric bypass for obesity Is this a current diagnosis for this admission?: Yes (3) Chronic liver failure Qualifiers: Hepatic coma status: without hepatic coma Qualified Code(s): K72.10 - Chronic hepatic failure without coma Is this a current diagnosis for this admission?: Yes (4) Diabetes mellitus type 2 in obese Is this a current diagnosis for this admission?: Yes Plan: Patient's blood sugars have been in the normal range. (5) Essential hypertension Is this a current diagnosis for this admission?: Yes (6) GERD (gastroesophageal reflux disease) Qualifiers: Esophagitis presence: without esophagitis Qualified Code(s): K21.9 - Gastro -esophageal reflux disease without esophagitis Is this a current diagnosis for this admission?: Yes (7) Hypothyroidism Qualifiers: Hypothyroidism type: unspecified Qualified Code(s): E03.9 - Hypothyroidism , unspecified Is this a current diagnosis for this admission?: Yes (8) Anemia Qualifiers: Anemia type: other cause Is this a current diagnosis for this admission?: Yes Plan: We will get 2 units packed red blood cells today. - Time Time Spent with patient: 25-34 minutes - Inpatient Certification Medical Necessity: Need Close Monitoring Due to Risk of Patient Decompensation
[2017-10-17] MEDS: BENZTROPINE MESYLATE 1 MG TABLET PO SCH (20:36)
[2017-10-17] MEDS: MIRTAZAPINE 15 MG TABLET PO SCH (22:14)
[2017-10-18] MEDS: MORPHINE SULFATE 10 MG/ML INJ IV PRN ×4 (00:56→16:59)
[2017-10-18] MEDS: GABAPENTIN 300 MG CAPSULE PO SCH ×2 (06:26→14:29)
[2017-10-18] MEDS: LANSOPRAZOLE 30 MG TAB.RAP.DR PO SCH (06:26)
[2017-10-18] MEDS: OXYCODONE HCL IR 5 MG TABLET PO PRN ×3 (06:26→17:39)
[2017-10-18 07:32] LABS: HEMATOCRIT 31.4 % (36.0-47.0); HGB HCT DIFFERENCE 0.7; MEAN CORPUSCULAR HEMOGLOBIN 30.5 pg (27.0-33.4); RED CELL DISTRIBUTION WIDTH 17.5 % (11.5-14.0); WHITE BLOOD COUNT 7.9 10^3/uL (4.0-10.5)
[2017-10-18 07:33] LABS: HEMOGLOBIN 10.7 g/dL (12.0-15.5); MEAN CORPUSCULAR VOLUME 90 fl (80-97)
[2017-10-18] MEDS: BENZTROPINE MESYLATE 1 MG TABLET PO SCH (08:32)
[2017-10-18] MEDS: CALCIUM CARBONATE 500 MG TAB.CHEW PO SCH ×3 (08:33→16:59)
[2017-10-18 08:43] LABS: BLOOD UREA NITROGEN 10 mg/dL (7-20); CHLORIDE 112 mmol/L (98-107); CREATININE RESULT 0.55 mg/dL (0.52-1.25); GLUCOSE 46 mg/dL (75-110); POTASSIUM 3.4 mmol/L (3.6-5.0)
[2017-10-18 08:56] LABS: CARBON DIOXIDE 28 mmol/L (22-30); SODIUM 141.6 mmol/L (137-145)
[2017-10-18 09:06] LABS: ANION GAP 2 (5-19)
[2017-10-18 09:09] LABS: CALCIUM 6.4 mg/dL (8.4-10.2)
[2017-10-18] MEDS ORDERED: POTASSIUM CHLORIDE 10 MEQ TABLET.SA PO SCH (10:00)
[2017-10-18] MEDS: CYANOCOBALAMIN (VITAMIN B-12) 1,000 MCG TABLET PO SCH (10:15)
[2017-10-18] MEDS: CHOLECALCIFEROL (D3) 1,000 UNIT TABLET PO SCH (10:15)
[2017-10-18] MEDS: NORMAL SALINE 10 ML SDV (SCHEDULED) IV SCH (10:16)
[2017-10-18] MEDS: DOCUSATE SODIUM 100 MG CAPSULE PO SCH (10:17)
[2017-10-18] MEDS: LURASIDONE HCL 40 MG TABLET PO SCH (10:17)
[2017-10-18] MEDS: NYSTATIN TOPICAL POWDER 15 GM TP SCH (10:17)
[2017-10-18] MEDS: LIDOCAINE 5% (700 MG) TRANSDERMAL ADH..PATCH TP SCH (10:17)
[2017-10-18] MEDS: MULTIVITAMINS W-IRON TABLET, CHEWABLE PO SCH (10:17)
[2017-10-18 12:32] VITALS: BP 124/79
--- NOTE | 2017-10-18 12:50 | PDOC PROGRESS REPORT ---
Subjective Progress Note for:: 10/18/17 Subjective:: Patient denies any complaints. Reason For Visit: HIP FRACTURE Physical Exam Vital Signs: Temp Pulse Resp BP Pulse Ox 98.7 F 89 17 124/79 99 10/18/17 12:04 10/18/17 12:04 10/18/17 12:04 10/18/17 12:04 10/18/17 12:04 Intake & Output 10/17/17 10/18/17 10/19/17 06:59 06:59 06:59 Intake Total 560 1718 Output Total 1025 550 Balance -465 1168 Weight 53.4 kg 61.2 kg General appearance: PRESENT: no acute distress Eye exam: PRESENT: conjunctiva pink. ABSENT: scleral icterus Mouth exam: PRESENT: moist, tongue midline Neck exam: ABSENT: JVD Respiratory exam: PRESENT: clear to auscultation rona. ABSENT: rales, rhonchi, wheezes Cardiovascular exam: PRESENT: RRR. ABSENT: diastolic murmur, rubs, systolic murmur GI/Abdominal exam: PRESENT: normal bowel sounds, soft. ABSENT: distended, guarding, mass, organolmegaly, rebound, tenderness Neurological exam: PRESENT: alert, awake, oriented to person, oriented to place , oriented to time, oriented to situation, CN II-XII grossly intact. ABSENT: motor sensory deficit Psychiatric exam: PRESENT: appropriate affect Skin exam: PRESENT: dry, intact, warm. ABSENT: cyanosis, rash Results Laboratory Results: 10/18/17 06:10 10/18/17 06:10 10/15/17 10/18/17 10/18/17 07:15 06:10 06:10 WBC 7.9 RBC 3.50 L Hgb 10.7 L D Hct 31.4 L MCV 90 D MCH 30.5 MCHC 34.0 RDW 17.5 H Plt Count 148 L Sodium 141.6 Potassium 3.4 L Chloride 112 H Carbon Dioxide 28 Anion Gap 2 L BUN 10 Creatinine 0.55 Est GFR ( Amer) > 60 Est GFR (Non-Af Amer) > 60 Glucose 46 L Calcium 6.4 L* Blood Type O POSITIVE Antibody Screen NEGATIVE Impressions: Chest X-Ray 10/13/17 00:00 IMPRESSION: NO ACUTE RADIOGRAPHIC FINDING IN THE CHEST.Residual tiny right pleural effusion. Femur X-Ray 10/13/17 20:07 IMPRESSION: NO RADIOGRAPHIC EVIDENCE OF ACUTE INJURY. Pelvis X-Ray 10/13/17 20:07 IMPRESSION: Left femoral neck fracture without significant displacement. Tibia/Fibula X-Ray 10/13/17 20:08 IMPRESSION: NO RADIOGRAPHIC EVIDENCE OF ACUTE INJURY. Fluoroscopy 10/14/17 00:00 IMPRESSION: IMAGE(S) OBTAINED DURING PROCEDURE. Guidance Fluoroscopy 10/14/17 00:00 IMPRESSION: SUCCESSFUL PLACEMENT OF A 5 FR DUAL LUMEN 36 CM PICC IN THE LEFT BASILIC VEIN. Hip X-Ray 10/14/17 00:00 IMPRESSION: IMAGE(S) OBTAINED DURING PROCEDURE. Interventional Vascular Procedure 10/14/17 00:00 IMPRESSION: SUCCESSFUL PLACEMENT OF A 5 FR DUAL LUMEN 36 CM PICC IN THE LEFT BASILIC VEIN. PICC Line Insertion 10/14/17 00:00 IMPRESSION: SUCCESSFUL PLACEMENT OF A 5 FR DUAL LUMEN 36 CM PICC IN THE LEFT BASILIC VEIN. Assessment & Plan - Diagnosis (1) Fracture of femoral neck, left Qualifiers: Encounter type: initial encounter Fracture type: closed Qualified Code(s) : S72.002A - Fracture of unspecified part of neck of left femur, initial encounter for closed fracture Is this a current diagnosis for this admission?: Yes Plan: Patient had surgery without difficulty. Continue with physical therapy (2) Status post gastric bypass for obesity Is this a current diagnosis for this admission?: Yes (3) Chronic liver failure Qualifiers: Hepatic coma status: without hepatic coma Qualified Code(s): K72.10 - Chronic hepatic failure without coma Is this a current diagnosis for this admission?: Yes (4) Diabetes mellitus type 2 in obese Is this a current diagnosis for this admission?: Yes Plan: Patient's blood sugars have been in the normal range. (5) Essential hypertension Is this a current diagnosis for this admission?: Yes (6) GERD (gastroesophageal reflux disease) Qualifiers: Esophagitis presence: without esophagitis Qualified Code(s): K21.9 - Gastro -esophageal reflux disease without esophagitis Is this a current diagnosis for this admission?: Yes (7) Hypothyroidism Qualifiers: Hypothyroidism type: unspecified Qualified Code(s): E03.9 - Hypothyroidism , unspecified Is this a current diagnosis for this admission?: Yes (8) Anemia Qualifiers: Anemia type: other cause Is this a current diagnosis for this admission?: Yes Plan: Stable. Had transfusion yesterday. (9) Hypokalemia Is this a current diagnosis for this admission?: Yes Plan: We will replace potassium and continue to monitor. - Time Time Spent with patient: 15-24 minutes - Inpatient Certification Medical Necessity: Need Close Monitoring Due to Risk of Patient Decompensation - Plan Summary Plan Summary: We will most likely go to rehab on Saturday.
--- NOTE | 2017-10-18 14:19 | PDOC TRANSFER SUMMARY ---
General - Admit/Disc Date/PCP Admission Date/Primary Care Provider: 10/14/17 00:54 JANI VALLE NP Discharge Date: 10/18/17 - Discharge Diagnosis (1) Fracture of femoral neck, left Is this a current diagnosis for this admission?: Yes Summary: Status post open reduction internal fixation with cannulated screws (2) Status post gastric bypass for obesity Is this a current diagnosis for this admission?: Yes (3) Chronic liver failure Is this a current diagnosis for this admission?: Yes (4) Diabetes mellitus type 2 in obese Is this a current diagnosis for this admission?: Yes (5) Essential hypertension Is this a current diagnosis for this admission?: Yes (6) GERD (gastroesophageal reflux disease) Is this a current diagnosis for this admission?: Yes (7) Hypothyroidism Is this a current diagnosis for this admission?: Yes (8) Anemia Is this a current diagnosis for this admission?: Yes Summary: Status post transfusion 2 units packed red blood cells. (9) Hypokalemia Is this a current diagnosis for this admission?: Yes - Additional Information Resuscitation Status: Full Code Discharge Activity: Activity As Tolerated Home Medications: Aspirin [Aspirin EC] 81 mg PO DAILY 10/14/17 Benztropine Mesylate [Cogentin 1 mg Tablet] 1 mg PO Q8 10/14/17 Cyanocobalamin (Vitamin B-12) [Vitamin B-12 1000 mcg Tablet] 1,000 mcg PO DAILY 10/14/17 Esomeprazole Magnesium [Nexium] 40 mg PO DAILY 10/14/17 Gabapentin [Neurontin 300 mg Capsule] 300 mg PO Q8HP PRN 10/14/17 Multivitamin [Daily Multiple Vitamin] 1 tab PO DAILY 10/14/17 Mupirocin [Bactroban 2% Ointment 22 gm] 1 applic TOP Q12HP PRN 10/14/17 Calcium Carbonate [Tums Chewable 500 mg Tab.chew] 1,000 mg PO MEALSHS tab.chew 10/18/17 Cholecalciferol (Vitamin D3) [Vitamin D3 1000 Unit Tablet] 1,000 unit PO DAILY tablet 10/18/17 Docusate Sodium [Colace 100 mg Capsule] 100 mg PO BID capsule 10/18/17 Lidocaine [Lidoderm 5% (700 mg) Transdermal Patch] 2 patch TP DAILY adh..patch 10/18/17 Lorazepam [Ativan 1 mg Tablet] 1 mg PO Q8HP PRN #10 tablet 10/18/17 Lurasidone HCl [Latuda 40 mg Tablet] 40 mg PO Q12 tablet 10/18/17 Mirtazapine [Remeron 15 mg Tablet] 7.5 mg PO QHS tablet 10/18/17 Multivitamins W-Iron [Flintstones Chewable Multivit W/Fe Tab] 1 tab PO DAILY tab.chew 10/18/17 Naloxegol Oxalate [Movantik 25 mg Tablet] 25 mg PO DAILY #3 tablet 10/18/17 Oxycodone HCl [Oxy-Ir 5 mg Tablet] 5 mg PO Q6HP PRN #14 tablet 10/18/17 Potassium Chloride [Klor-Con 10 Meq Tablet.sa] 20 meq PO Q12 tablet.sa History of Present Illness Admission Date/PCP: 10/14/17 00:54 JANI VALLE NP History of Present Illness: Patient is 47-year-old white female with a myriad of medical problems who is a household ambulator with a walker when she tripped over a pack and sustained a left hip injury. She is brought to the emergency room were nondisplaced left femoral neck fracture was identified. She is admitted to the hospital service and orthopedics is consulted for fracture management. Hospital Course Hospital Course: 47-year-old female with a history of hypertension, distant history of gastric bypass surgery who presented to the emergency room after having a mechanical trip and fall resulting in left femoral neck fracture. The patient was admitted and seen by orthopedic surgery. They did an open reduction internal fixation with cannulated screws without difficulty. Postoperatively she did develop some anemia and required transfusion of 2 units packed red blood cells. The patient has done well and is ready for discharge to skilled nurse facility for rehab. The patient also does have a history of some liver disease secondary to nonalcoholic steatohepatitis. The patient's other medical problems all were stable during this hospitalization. She also has a stage II sacral decubitus that is being treated with offloading pressure. Physical Exam Vital Signs: Temp Pulse Resp BP Pulse Ox 98.7 F 89 17 124/79 99 10/18/17 12:04 10/18/17 12:04 10/18/17 12:04 10/18/17 12:04 10/18/17 12:04 Intake & Output 1210/18/17 10/19/17 06:59 06:59 06:59 Intake Total 560 1718 Output Total 1025 550 Balance -465 1168 Weight 53.4 kg 61.2 kg General appearance: PRESENT: no acute distress Eye exam: PRESENT: conjunctiva pink. ABSENT: scleral icterus Mouth exam: PRESENT: moist, tongue midline Neck exam: ABSENT: JVD Respiratory exam: PRESENT: clear to auscultation rona. ABSENT: rales, rhonchi, wheezes Cardiovascular exam: PRESENT: RRR. ABSENT: diastolic murmur, rubs, systolic murmur GI/Abdominal exam: PRESENT: normal bowel sounds, soft. ABSENT: distended, guarding, mass, organolmegaly, rebound, tenderness Extremities exam: ABSENT: calf tenderness, clubbing, pedal edema Neurological exam: PRESENT: alert, awake, oriented to person, oriented to place , oriented to time, oriented to situation, CN II-XII grossly intact. ABSENT: motor sensory deficit Psychiatric exam: PRESENT: appropriate affect Skin exam: PRESENT: other - Stage II sacral decubitus Results Laboratory Results: 10/18/17 06:10 10/18/17 06:10 10/18/17 10/18/17 06:10 06:10 WBC 7.9 RBC 3.50 L Hgb 10.7 L D Hct 31.4 L MCV 90 D MCH 30.5 MCHC 34.0 RDW 17.5 H Plt Count 148 L Sodium 141.6 Potassium 3.4 L Chloride 112 H Carbon Dioxide 28 Anion Gap 2 L BUN 10 Creatinine 0.55 Est GFR ( Amer) > 60 Est GFR (Non-Af Amer) > 60 Glucose 46 L Calcium 6.4 L* Impressions: Chest X-Ray 10/13/17 00:00 IMPRESSION: NO ACUTE RADIOGRAPHIC FINDING IN THE CHEST.Residual tiny right pleural effusion. Femur X-Ray 10/13/17 20:07 IMPRESSION: NO RADIOGRAPHIC EVIDENCE OF ACUTE INJURY. Pelvis X-Ray 10/13/17 20:07 IMPRESSION: Left femoral neck fracture without significant displacement. Tibia/Fibula X-Ray 10/13/17 20:08 IMPRESSION: NO RADIOGRAPHIC EVIDENCE OF ACUTE INJURY. Fluoroscopy 10/14/17 00:00 IMPRESSION: IMAGE(S) OBTAINED DURING PROCEDURE. Guidance Fluoroscopy 10/14/17 00:00 IMPRESSION: SUCCESSFUL PLACEMENT OF A 5 FR DUAL LUMEN 36 CM PICC IN THE LEFT BASILIC VEIN. Hip X-Ray 10/14/17 00:00 IMPRESSION: IMAGE(S) OBTAINED DURING PROCEDURE. Interventional Vascular Procedure 10/14/17 00:00 IMPRESSION: SUCCESSFUL PLACEMENT OF A 5 FR DUAL LUMEN 36 CM PICC IN THE LEFT BASILIC VEIN. PICC Line Insertion 10/14/17 00:00 IMPRESSION: SUCCESSFUL PLACEMENT OF A 5 FR DUAL LUMEN 36 CM PICC IN THE LEFT BASILIC VEIN. Transfer Plan - Disposition Transfer Plan: Patient is to be transferred to [facility] for rehab. - Time Spent with Patient Time spent with patient: Greater than 30 Minutes Qualifiers PATEINT BEING DISCHARGED WITH ANY OF THE FOLLOWING DIAGNOSIS?: No Plan Discharge Plan: Patient is to be transferred to [facility] for rehab. Time Spent: Greater than 30 Minutes
[2017-10-18] MEDS: LORAZEPAM 1 MG TABLET PO PRN (14:29)
== END 2017-10-18 17:45 | DRG 481 ==
LOC: ER 19:10 → EH 10-14 00:54 → 5 10-14 14:37
PROVIDERS: ADMIT Family Medicine; ATTEND Family Medicine
PROC: 02HV33Z Insertion of Infusion Device into Superior Vena Cava, Percutaneous Approach (ICD-10-PCS; 2017-10-14)
PROC: B518ZZA Fluoroscopy of Superior Vena Cava, Guidance (ICD-10-PCS; 2017-10-14)
PROC: B548ZZA Ultrasonography of Superior Vena Cava, Guidance (ICD-10-PCS; 2017-10-14)
PROC: 0QH934Z Insertion of Internal Fixation Device into Left Femoral Shaft, Percutaneous Approach (ICD-10-PCS; principal; 2017-10-14 12:30)
PROC: 30233N1 Transfusion of Nonautologous Red Blood Cells into Peripheral Vein, Percutaneous Approach (ICD-10-PCS; 2017-10-17)
DX: S72.002A Fracture of unspecified part of neck of left femur, initial encounter for closed fracture (principal); K91.2 Postsurgical malabsorption, not elsewhere classified; K95.89 Other complications of other bariatric procedure; I69.354 Hemiplegia and hemiparesis following cerebral infarction affecting left non-dominant side; D64.9 Anemia, unspecified; E87.6 Hypokalemia; I10 Essential (primary) hypertension; E88.09 Other disorders of plasma-protein metabolism, not elsewhere classified; K72.10 Chronic hepatic failure without coma; F11.21 Opioid dependence, in remission; F31.9 Bipolar disorder, unspecified; K21.9 Gastro-esophageal reflux disease without esophagitis; L89.152 Pressure ulcer of sacral region, stage 2; W01.0XXA Fall on same level from slipping, tripping and stumbling without subsequent striking against object, initial encounter; Y93.9 Activity, unspecified; Y92.9 Unspecified place or not applicable; Z98.84 Bariatric surgery status; Z68.25 Body mass index [BMI] 25.0-25.9, adult
CPT/HCPCS: 01220; 36415; 36430; 36569; 71010; 72170; 76937; 77001; 80048; 80053; 81001; 82330; 83735; 84100; 85025; 85027; 85610; 85730; 86850; 86900; 86901; 86920; 87045; 87086; 87205; 87493; 93005; 93010; 94640; 94660; 96372; 96374; 99285; G8978-GP; G8979-GP; J0690; J1170; J1642; J1644; J1940; J2250; J2270; J2405; J2704; J3010; J3490; J7040; J7120; J7620; P9016

== ENCOUNTER → 2017-11-07 | Outpatient (CLI) | payer MEDICARE, MEDICAID ==
--- NOTE | 2017-11-07 11:36 | RADIOLOGY REPORT (SQ) ---
EXAM DESCRIPTION: MRI HEAD WITHOUT COMPLETED DATE/TIME: 11/07/2017 11:15 am REASON FOR STUDY: VISUAL DISTURBANCES OF BOTH EYES, HX OF STROKE (H53.9, H54.7) H53.9 UNSPECIFIED V ISUAL DISTURBANCE H54.7 UNSPECIFIED VISUAL LOSS COMPARISON: CT brain 09/02/2017 MRI brain 08/18/2015, 05/08/2017 TECHNIQUE: Multiplanar imaging includes non-contrasted T1, T2, FLAIR, and diffusion with ADC map seq uences. Images stored on PACS. LIMITATIONS: None. FINDINGS: ANATOMY: No anomalies. Normal vascular flow voids. Pituitary fossa normal. CSF SPACES: Normal in size and contour. No hemorrhage. CEREBRUM: Sulci and gyri normal in size and contour. Normal white matter signal on FLAIR imaging. No evidence of hemorrhage, mass, or extraaxial fluid collection. POSTERIOR FOSSA: No signal alteration. No hemorrhage. No edema, masses or mass effect. Internal haroon tory canals, cerebello-pontine angles, mastoids normal. DIFFUSION IMAGING: Negative for acute or sub-acute infarction. ORBITS: No masses. Globes normal. PARANASAL SINUSES: No fluid levels. Mucosa normal. OTHER: No other significant finding. IMPRESSION: NORMAL MRI OF THE BRAIN WITHOUT INTRAVENOUS GADOLINIUM CONTRAST. EVIDENCE OF ACUTE STROKE: NO. TECHNICAL DOCUMENTATION: JOB ID: [id number]- All Rights Reserved
== END ==
LOC: RAD 10:15
PROVIDERS: ATTEND Nurse Practitioner
DX: H53.9 Unspecified visual disturbance (principal); H54.7 Unspecified visual loss
CPT/HCPCS: 70551

== ENCOUNTER → 2018-01-21 | Outpatient (CLI) | payer MEDICARE, MEDICAID ==
[2018-01-21 09:56] LABS: ABSOLUTE EOSINOPHILS # (AUTO) 0.1 10^3/uL (0.0-0.6); ABSOLUTE LYMPHOCYTES (AUTO) 2.6 10^3/uL (0.5-4.7); ABSOLUTE MONOCYTES (AUTO) 0.4 10^3/uL (0.1-1.4); ABSOLUTE NEUT (AUTO) 4.3 10^3/uL (1.7-8.2); BASOPHILS % (AUTO) 0.5 % (0-2); EOSINOPHILS % (AUTO) 0.8 % (0-6); HEMATOCRIT 33.7 % (36.0-47.0); HEMOGLOBIN 11.1 g/dL (12.0-15.5); LYMPHOCYTES % (AUTO) 35.3 % (13-45); MEAN CORPUSCULAR HEMOGLOBIN 32.5 pg (27.0-33.4); MEAN CORPUSCULAR HGB CONC 32.9 g/dL (32.0-36.0); MEAN CORPUSCULAR VOLUME 99 fl (80-97); MONOCYTES % (AUTO) 5.2 % (3-13); PLATELET COUNT 291 10^3/uL (150-450); SEGMENTED NEUTROPHILS % (AUTO) 58.2 % (42-78); TOTAL CELLS COUNTED % (AUTO) 100 %; WHITE BLOOD COUNT 7.4 10^3/uL (4.0-10.5)
[2018-01-21 10:11] LABS: APPEARANCE,URINE CLEAR; BILIRUBIN,URINE NEGATIVE (NEGATIVE); COLOR,URINE YELLOW; GLUCOSE, URINE NEGATIVE (NEGATIVE); KETONES,URINE NEGATIVE (NEGATIVE); LEUKOCYTE ESTERASE,URINE NEGATIVE (NEGATIVE); NITRITE,URINE NEGATIVE (NEGATIVE); PROTEIN,URINE NEGATIVE (NEGATIVE); URINE SPECIFIC GRAVITY 1.009; UROBILINOGEN,URINE NEGATIVE mg/dL (<2.0)
--- NOTE | 2018-01-21 10:11 | RADIOLOGY REPORT (SQ) ---
EXAM DESCRIPTION: CHEST PA/LATERAL COMPLETED DATE/TIME: 01/21/2018 10:01 am REASON FOR STUDY: PRE OP COMPARISON: 10/13/2017 EXAM PARAMETERS: NUMBER OF VIEWS: two views TECHNIQUE: Digital Frontal and Lateral radiographic views of the chest acquired. RADIATION DOSE: NA LIMITATIONS: none FINDINGS: LUNGS AND PLEURA: No opacities, masses or pneumothorax. No pleural effusion. MEDIASTINUM AND HILAR STRUCTURES: No masses or contour abnormalities. HEART AND VASCULAR STRUCTURES: Heart normal size. No evidence for failure. BONES: No acute findings. HARDWARE: None in the chest. OTHER: No other significant finding. IMPRESSION: NO SIGNIFICANT RADIOGRAPHIC FINDING IN THE CHEST. TECHNICAL DOCUMENTATION: JOB ID: [id number] [employer]- All Rights Reserved Reading location - IP/workstation name: [email or web address]
[2018-01-21 10:17] LABS: ANION GAP 8 (5-19); BLOOD UREA NITROGEN 10 mg/dL (7-20); CALCIUM 8.9 mg/dL (8.4-10.2); CARBON DIOXIDE 24 mmol/L (22-30); CHLORIDE 108 mmol/L (98-107); GLUCOSE 89 mg/dL (75-110); POTASSIUM 4.3 mmol/L (3.6-5.0); SODIUM 139.7 mmol/L (137-145)
--- NOTE | 2018-01-21 12:41 | EKG REPORT ---
SEVERITY:- ABNORMAL ECG - SINUS RHYTHM BORDERLINE LEFT AXIS DEVIATION ABNRM R PROG, CONSIDER ASMI OR LEAD PLACEMENT : Confirmed by: Alli Fish MD 21-Jan-2018 12:40:17
== END ==
LOC: OD 09:12
PROVIDERS: ATTEND Orthopaedic Surgery
DX: Z01.818 Encounter for other preprocedural examination (principal); S72.025D Nondisplaced fracture of epiphysis (separation) (upper) of left femur, subsequent encounter for closed fracture with routine healing; X58.XXXD Exposure to other specified factors, subsequent encounter
CPT/HCPCS: 36415; 71046; 80048; 81001; 85025; 93005; 93010

== ENCOUNTER 2018-02-18 07:55 | Inpatient (IN) | payer MEDICARE, MEDICAID ==
[2018-02-18] MEDS ORDERED: CEFEPIME 2 GM/D5W RTU 2 GM/50 ML RTUPB IV ONE (08:08)
--- NOTE | 2018-02-18 08:08 | ER Document Report ---
ED Respiratory Problem - General Mode of Arrival: Medic Information source: Patient TRAVEL OUTSIDE OF THE [place] IN LAST 30 DAYS: No <LUPE LYLES - Last Filed: 02/18/18 15:21> <SHAHRZAD MCGRAW - Last Filed: 02/18/18 15:23> - General Chief Complaint: Breathing Difficulty Stated Complaint: BREATHING DIFFICULTY Time Seen by Provider: 02/18/18 07:56 Notes: Patient is a 47-year-old female with a history of liver failure presents to the emergency department complaining of general malaise, bilateral leg pain, right sided swelling and worsening shortness of breath onset 3 days ago. Patient also complains of rapid weight gain, further stating she has gained 20 lbs in one week. Son states the patients bilateral leg swelling is chronic, further stating they were informed certain proteins does not travel to her legs. Patient denies a history of CHF. EMS states upon arrival to the patient's home the patient was tachypneic with a temperature of 100.8 and SpO2 of 86 on room air. EMS proceeded to give Acetaminophen 975, normal saline and 4 L of oxygen which brought the patients SpO2 to 95. (LUPE LYLES) - Related Data Allergies/Adverse Reactions: cilastatin [From Primaxin IV] Allergy (Intermediate, Verified 02/18/18 07:56) Facial swelling imipenem [From Primaxin IV] Allergy (Intermediate, Verified 02/18/18 07:56) Facial swelling Penicillins Allergy (Verified 02/18/18 07:56) Past Medical History - General Information source: Patient, Relative, Emergency Med Personnel - Social History Smoking Status: Former Smoker Frequency of alcohol use: None Drug Abuse: None Family History: DM, Hypertension - Past Medical History Cardiac Medical History: Reports: Hx Hypertension Pulmonary Medical History: Reports: Hx Pneumonia Neurological Medical History: Reports: Hx Cerebrovascular Accident Endocrine Medical History: Reports: Hx Diabetes Mellitus Type 2 GI Medical History: Reports: Hx Gastroesophageal Reflux Disease, Hx Ulcer, Hx Endoscopy Musculoskeltal Medical History: Reports Hx Arthritis Psychiatric Medical History: Reports: Hx Anxiety, Hx Bipolar Disorder, Hx Depression, Hx Schizophrenia Past Surgical History: Reports: Hx Abdominal Surgery - gastric bypass, reversal , Hx Cholecystectomy, Hx Gastric Bypass Surgery, Hx Hysterectomy, Hx Orthopedic Surgery - LLE, left jaw - Immunizations Immunizations up to date: Yes Hx Diphtheria, Pertussis, Tetanus Vaccination: Yes <LUPE LYLES - Last Filed: 02/18/18 15:21> Review of Systems - Review of Systems Constitutional: No symptoms reported EENT: No symptoms reported Cardiovascular: No symptoms reported Respiratory: See HPI, Short of breath Gastrointestinal: No symptoms reported Genitourinary: No symptoms reported Female Genitourinary: No symptoms reported Musculoskeletal: See HPI Skin: No symptoms reported Hematologic/Lymphatic: No symptoms reported Neurological/Psychological: No symptoms reported -: Yes All other systems reviewed and negative <LUPE LYLES - Last Filed: 02/18/18 15:21> Physical Exam <LUPE LYLES - Last Filed: 02/18/18 15:21> <SHAHRZAD MCGRAW - Last Filed: 02/18/18 15:23> - Vital signs Vitals: Pulse Ox 92 02/18/18 07:56 - Notes Notes: GENERAL: Alert, interacts well. Appears short of breath. HEAD:Facial edema, right greater than left. EYES: Pupils equal, round, and reactive to light. Extraocular movements intact. ENT: Oral mucosa moist, tongue midline. NECK: Full range of motion. Supple. Trachea midline. LUNGS: Tachypneic, expiratory rhonchi bilaterally,expiratory rales anteriorly. Appears short of breath. HEART: Regular rate and rhythm. No murmurs, gallops, or rubs. ABDOMEN: Edema to the right side of abdomen. Tender to palpation in the RUQ. Liver enlarged. Bowel sounds present in all 4 quadrants. EXTREMITIES: Moves all 4 extremities spontaneously. 1+ pitting edema bilaterally , radial and dorsalis pedis pulses 2/4 bilaterally. No cyanosis. NEUROLOGICAL: Alert and oriented x3. Normal speech. PSYCH: Normal affect, normal mood. SKIN: Hot to the touch, dry. No rashes or lesions noted. (LUPE LYLES) Course - Laboratory Result Diagrams: 02/18/18 08:20 02/18/18 08:20 <LUPE LYLES - Last Filed: 02/18/18 15:21> - Laboratory Result Diagrams: 02/18/18 08:20 02/18/18 08:20 <SHAHRZAD MCGRAW - Last Filed: 02/18/18 15:23> - Re-evaluation Re-evalutation: 02/18/18 09:32 Chest x-ray shows diffuse bilateral alveolar and interstitial infiltrates multifocal pneumonia versus edema. CBC shows leukocytosis of 15.0, hemoglobin shows anemia at 10.6, platelets normal, CMP slightly low potassium at 3.5 and a low calcium at 7.7, no evidence of acute or really chronic liver failure, troponin indeterminate 0.044, proBNP elevated at 2680, EKG is pending. When patient arrived she appeared relatively short of breath, was given breathing treatments and placed on BiPAP for respiratory support. Patient will be treated with Lasix and antibiotics for both pneumonia and pulmonary edema. Given her proBNP but also her fever I do think it is likely she has both of these things going on at the same time. Blood cultures have been obtained. EKG and lactic acid are pending. Patient will be discussed with hospitalist for admission. (SHAHRZAD MCGRAW) - Vital Signs Vital signs: Temp Pulse Resp BP Pulse Ox 100 F 21 H 114/73 95 02/18/18 08:17 02/18/18 14:15 02/18/18 14:15 02/18/18 14:17 - Laboratory Laboratory results interpreted by me: 02/18/18 02/18/18 02/18/18 08:20 08:20 08:20 WBC 15.0 H RBC 3.37 L Hgb 10.6 L Hct 34.2 L MCV 102 H MCHC 31.1 L RDW 16.0 H Seg Neuts % (Manual) 91 H Band Neutrophils % 2 L Lymphocytes % (Manual) 7 L Monocytes % (Manual) 0 L Abs Neuts (Manual) 14.0 H Abs Monocytes (Manual) 0.0 L PT VBG HCO3 Potassium 3.5 L Chloride 115 H Creatinine 0.48 L Lactic Acid Calcium 7.7 L Direct Bilirubin 0.5 H AST 52 H Alkaline Phosphatase 216 H NT-Pro-B Natriuret Pep 2680 H Total Protein 5.3 L Albumin 2.5 L TSH Free T3 pg/mL Urine Urobilinogen Ur Leukocyte Esterase 02/18/18 02/18/18 02/18/18 09:43 09:43 09:43 WBC RBC Hgb Hct MCV MCHC RDW Seg Neuts % (Manual) Band Neutrophils % Lymphocytes % (Manual) Monocytes % (Manual) Abs Neuts (Manual) Abs Monocytes (Manual) PT 15.6 H VBG HCO3 19.8 L Potassium Chloride Creatinine Lactic Acid 3.0 H Calcium Direct Bilirubin AST Alkaline Phosphatase NT-Pro-B Natriuret Pep Total Protein Albumin TSH Free T3 pg/mL Urine Urobilinogen Ur Leukocyte Esterase 02/18/18 02/18/18 09:43 09:55 WBC RBC Hgb Hct MCV MCHC RDW Seg Neuts % (Manual) Band Neutrophils % Lymphocytes % (Manual) Monocytes % (Manual) Abs Neuts (Manual) Abs Monocytes (Manual) PT VBG HCO3 Potassium Chloride Creatinine Lactic Acid Calcium Direct Bilirubin AST Alkaline Phosphatase NT-Pro-B Natriuret Pep Total Protein Albumin TSH 0.33 L Free T3 pg/mL 2.28 L Urine Urobilinogen 2.0 H Ur Leukocyte Esterase MODERATE H - EKG Interpretation by Me Additional EKG results interpreted by me: 02/18/18 15:23 EKG shows sinus tachycardia at a rate of 101, left axis deviation, normal intervals, no ST segment elevations or depressions, no T-wave inversions per my interpretation. (SHAHRZAD MCGRAW) Critical Care Note - Critical Care Note Total time excluding time spent on procedures (mins): 35 <SHAHRZAD MCGRAW - Last Filed: 02/18/18 15:23> Discharge <LUPE LYLES - Last Filed: 02/18/18 15:21> - Discharge Admitting Provider: Hospitalist - [facility] Unit Admitted: [facility] <SHAHRZAD MCGRAW - Last Filed: 02/18/18 15:23> - Discharge Clinical Impression: Acute respiratory failure with hypoxia, Multifocal pneumonia Acute congestive heart failure Qualifiers: Heart failure type: unspecified Qualified Code(s): I50.9 - Heart failure, unspecified Condition: Fair Disposition: ADMITTED INPATIENT Scribe Attestation: 02/18/18 15:23 I personally performed the services described in the documentation, reviewed and edited the documentation which was dictated to the scribe in my presence, and it accurately records my words and actions. (SHAHRZAD MCGRAW) Scribe Documentation - Scribe Written by Juliana:: Juliana Mcmahon, 02/18/2018 08:16 acting as scribe for :: Yaa <LUPE LYLES - Last Filed: 02/18/18 15:21>
[2018-02-18] MEDS ORDERED: FUROSEMIDE INJ/PF 40 MG/4 ML SDV IV ONE (08:35)
[2018-02-18] MEDS ORDERED: ALBUTEROL SULFATE 0.083% NEB 2.5 MG/3 ML AMPUL NEB ONE (08:35)
[2018-02-18 08:43] LABS: HEMATOCRIT 34.2 % (36.0-47.0); HEMOGLOBIN 10.6 g/dL (12.0-15.5); MEAN CORPUSCULAR HEMOGLOBIN 31.6 pg (27.0-33.4); MEAN CORPUSCULAR HGB CONC 31.1 g/dL (32.0-36.0); MEAN CORPUSCULAR VOLUME 102 fl (80-97); PLATELET COUNT 263 10^3/uL (150-450); RED BLOOD COUNT 3.37 10^6/uL (3.72-5.28)
[2018-02-18 08:59] LABS: ALANINE AMINOTRANSFERASE 33 U/L (9-52); ALBUMIN 2.5 g/dL (3.5-5.0); ALKALINE PHOSPHATASE 216 U/L (38-126); ANION GAP 8 (5-19); ASPARTATE AMINO TRANSFERASE 52 U/L (14-36); BILIRUBIN,DIRECT 0.5 mg/dL (0.0-0.4); BILIRUBIN,TOTAL 0.5 mg/dL (0.2-1.3); BLOOD UREA NITROGEN 14 mg/dL (7-20); CALCIUM 7.7 mg/dL (8.4-10.2); CARBON DIOXIDE 22 mmol/L (22-30); CHLORIDE 115 mmol/L (98-107); GLUCOSE 87 mg/dL (75-110); POTASSIUM 3.5 mmol/L (3.6-5.0); SODIUM 144.6 mmol/L (137-145); TOTAL PROTEIN 5.3 g/dL (6.3-8.2)
--- NOTE | 2018-02-18 09:05 | RADIOLOGY REPORT (SQ) ---
EXAM DESCRIPTION: CHEST SINGLE VIEW COMPLETED DATE/TIME: 02/18/2018 8:41 am REASON FOR STUDY: fever, hypoxia COMPARISON: Two-view chest 01/21/2018 AP chest 10/13/2017, 10/08/2017 EXAM PARAMETERS: NUMBER OF VIEWS: One view. TECHNIQUE: Single frontal radiographic view of the chest acquired. RADIATION DOSE: NA LIMITATIONS: None. FINDINGS: LUNGS AND PLEURA: Diffuse bilateral alveolar and interstitial opacities are present, pneum onia versus edema. No gross pleural effusion. No pneumothorax. MEDIASTINUM AND HILAR STRUCTURES: No masses. Contour normal. HEART AND VASCULAR STRUCTURES: Borderline cardiomegaly BONES: Osteoporotic HARDWARE: Clips right upper quadrant post cholecystectomy OTHER: No other significant finding. IMPRESSION: Diffuse bilateral alveolar and interstitial infiltrates, multifocal pneumonia versus yony ma. No pleural effusion or pneumothorax. TECHNICAL DOCUMENTATION: JOB ID: [id number] [employer]- All Rights Reserved Reading location - IP/workstation name: [facility]
[2018-02-18 09:07] LABS: ABSOLUTE LYMPHOCYTES# (MANUAL) 1.1 10^3/uL (0.5-4.7); ANISOCYTOSIS 1+; BAND NEUTROPHILS % (MANUAL) 2 % (3-5); BASOPHILS % (MANUAL) 0 % (0-2); EOSINOPHILS % (MANUAL) 0 % (0-6); HYPOCHROMASIA SLIGHT; LYMPHOCYTES % (MANUAL) 7 % (13-45); MONOCYTES % (MANUAL) 0 % (3-13); PLATELET CLUMPS PRESENT; POLYCHROMASIA SLIGHT; SEGMENTED NEUTROPHILS % (MAN) 91 % (42-78); TOTAL CELLS COUNTED 100; TOXIC GRANULATION 1+; TOXIC VACUOLATION PRESENT
[2018-02-18 09:11] LABS: CREATINE KINASE MB 0.38 ng/mL (<4.55)
[2018-02-18 09:12] LABS: TROPONIN I 0.044 ng/mL
[2018-02-18 10:03] LABS: INTERNATIONAL RATION (INR) 1.18; PROTHROMBIN TIME 15.6 SEC (11.4-15.4)
[2018-02-18 10:11] LABS: VENOUS BLOOD HCO3 19.8 mmol/L (20-32); VENOUS BLOOD PCO2 40.4 mmHg (35-63); VENOUS BLOOD PH 7.31 (7.30-7.42)
[2018-02-18 10:26] LABS: APPEARANCE,URINE CLEAR; BILIRUBIN,URINE NEGATIVE (NEGATIVE); COLOR,URINE YELLOW; GLUCOSE, URINE NEGATIVE (NEGATIVE); KETONES,URINE NEGATIVE (NEGATIVE); LEUKOCYTE ESTERASE,URINE MODERATE (NEGATIVE); NITRITE,URINE NEGATIVE (NEGATIVE); PROTEIN,URINE NEGATIVE (NEGATIVE); URINE SPECIFIC GRAVITY 1.014
[2018-02-18 10:31] LABS: FREE T3 2.28 pg/mL (2.77-5.27); FREE T4 (FREE THYROXINE) 1.18 ng/dL (0.78-2.19)
[2018-02-18 10:45] LABS: THYROID STIMULATING HORMONE 0.33 uIU/mL (0.47-4.68)
[2018-02-18] MEDS ORDERED: IPRATROPIUM/ALBUTEROL 0.5-2.5 MG/3 ML AMPUL NEB PRN (11:05)
[2018-02-18] MEDS ORDERED: GUAIFENESIN SYRP 200 MG/10 ML UDC PO PRN (11:05)
[2018-02-18] MEDS ORDERED: LEVOTHYROXINE SODIUM 0.088 MG TABLET PO ONE (12:00)
[2018-02-18] MEDS ORDERED: ENOXAPARIN SODIUM INJ 40 MG/0.4 ML DISP.SYRIN SUBCUT ONE (12:00)
[2018-02-18] MEDS: OXYCODONE HCL IR 5 MG TABLET PO PRN ×2 (12:29→19:57)
--- NOTE | 2018-02-18 12:59 | EKG REPORT ---
SEVERITY:- OTHERWISE NORMAL ECG - SINUS TACHYCARDIA BORDERLINE LEFT AXIS DEVIATION : Confirmed by: Alli Fish MD 18-Feb-2018 12:58:55
[2018-02-18] MEDS: GABAPENTIN 300 MG CAPSULE PO SCH ×2 (13:22→21:26)
--- NOTE | 2018-02-18 15:56 | PDOC H&P ---
History of Present Illness Admission Date/PCP: 02/18/18 10:33 HILTON MORSE PA-C Patient complains of: weakness and SOB History of Present Illness: HILTON MI is a 47 year old female with history of bipolar disease, chronic pain, and migraines who presents with 1-2 days of worsening SOB and fevers ( Tmax 102). Patient states that she has been in generally good health until recently when she developed progressive SOB with exertion. She also notices fevers and chills and worsening lower extremity edema. She denies history of heart failure however has gained around 20lbs in the last week. Per report by EMS, patient was febrile to 100.8 and has O2 of 86% on RA. She does not require O2 at home. States that she recently had been evaluated by her net manager who performed stress test and TTE and was "normal". Labs notable for leukocytosis and elevated proBNP. CXR shows multifocal PNA. Placed on BiPAP with improvement in respiratory status. Admitted to hospitalist service. Past Medical History Cardiac Medical History: Reports: Hyperlipidema, Hypertension Pulmonary Medical History: Reports: Pneumonia Denies: Asthma, Chronic Obstructive Pulmonary Disease (COPD), Sleep Apnea Endocrine Medical History: Reports: Diabetes Mellitus Type 2 Denies: Hyperthyroidism, Hypothyroidism GI Medical History: Reports: Gastroesophageal Reflux Disease Denies: Cirrhosis, Hepatitis Musculoskeltal Medical History: Reports: Arthritis Psychiatric Medical History: Reports: Bipolar Disorder, Depression Hematology: Reports: Anemia Past Surgical History Past Surgical History: Reports: Cholecystectomy, Gastric Bypass Surgery, Hysterectomy, Orthopedic Surgery - LLE, left jaw Social History Information Source: Patient Smoking Status: Former Smoker Frequency of Alcohol Use: None Hx Recreational Drug Use: No Drugs: None Hx Prescription Drug Abuse: No - Advance Directive Resuscitation Status: Full Code Family History Family History: DM, Hypertension Parental Family History Reviewed: Yes - Not applicable Children Family History Reviewed: NA Sibling(s) Family History Reviewed.: NA Medication/Allergy Home Medications: Amitriptyline HCl [Elavil 50 mg Tablet] 50 mg PO DAILY 02/18/18 Benztropine Mesylate 1 mg PO BID 02/18/18 Biotin 5,000 mcg PO WBRKFST 02/18/18 Cholecalciferol (Vitamin D3) [Vitamin D3 1000 Unit Tablet] 1,000 unit PO WBRKFST 02/18/18 Cyanocobalamin (Vitamin B-12) [Vitamin B-12 1000 mcg Tablet] 1,000 mcg PO WBRKFST 02/18/18 Esomeprazole Magnesium [Nexium] 40 mg PO DAILY 02/18/18 Gabapentin [Neurontin 300 mg Capsule] 300 mg PO Q8 02/18/18 Levothyroxine Sodium [Synthroid 0.088 mg Tablet] 0.088 mg PO Q6AM 02/18/18 Lorazepam [Ativan 1 mg Tablet] 1 mg PO Q8HP PRN 02/18/18 Lurasidone HCl [Latuda] 40 mg PO BIDBS 02/18/18 Mirtazapine [Remeron 15 mg Tablet] 15 mg PO QHS 02/18/18 Morphine Sulfate [Morphine Sulfate ER] 15 mg PO Q12 02/18/18 Naloxegol Oxalate [Movantik] 25 mg PO QAM 02/18/18 Ondansetron HCl [Zofran 4 mg Tablet] 4 mg PO BIDP PRN 02/18/18 Oxycodone HCl [Oxycodone HCl 10 MG Tablet] 10 mg PO Q6HP PRN 02/18/18 Topiramate [Topamax] 50 mg PO QPM 02/18/18 Tramadol HCl [Ultram 50 mg Tablet] 50 mg PO Q6HP PRN 02/18/18 Allergies/Adverse Reactions: cilastatin [From Primaxin IV] Allergy (Intermediate, Verified 02/18/18 07:56) Facial swelling imipenem [From Primaxin IV] Allergy (Intermediate, Verified 02/18/18 07:56) Facial swelling Penicillins Allergy (Verified 02/18/18 07:56) Review of Systems All systems: reviewed and no additional remarkable complaints except as stated Physical Exam Vital Signs: Temp Pulse Resp BP Pulse Ox 100 F 21 H 114/73 95 02/18/18 08:17 02/18/18 14:15 02/18/18 14:15 02/18/18 14:17 Intake & Output 02/17/18 02/18/18 02/19/18 06:59 06:59 06:59 Output Total 1400 Balance -1400 General appearance: PRESENT: mild distress - Mild distress to tachypnea, well- developed, well-nourished, other - on BiPAP Head exam: PRESENT: normocephalic Mouth exam: PRESENT: moist Respiratory exam: PRESENT: crackles, tachypnea, wheezes Cardiovascular exam: PRESENT: +S1, +S2, tachycardia GI/Abdominal exam: PRESENT: soft. ABSENT: tenderness, other Extremities exam: PRESENT: +2 edema - up to ankle bilaterally Neurological exam: PRESENT: alert, awake, oriented to person, oriented to place , oriented to time, CN II-XII grossly intact Psychiatric exam: PRESENT: appropriate affect, normal mood Skin exam: PRESENT: dry, warm Results Laboratory Results: 02/18/18 14:02 Lactic Acid 2.0 02/18/18 11:36 Troponin I 0.063 Impressions: Chest X-Ray 02/18/18 08:07 IMPRESSION: Diffuse bilateral alveolar and interstitial infiltrates, multifocal pneumonia versus edema. No pleural effusion or pneumothorax. Assessment & Plan - Diagnosis (1) Acute respiratory failure with hypoxia Is this a current diagnosis for this admission?: Yes Plan: Secondary to acute CHF exacerbation and multifocal - Continue BiPAP until improvement in respiratory status and then transition to NC - See below for remainder of plan (2) CHF (congestive heart failure) Qualifiers: Heart failure type: unspecified Heart failure chronicity: unspecified Qualified Code(s): I50.9 - Heart failure, unspecified Is this a current diagnosis for this admission?: Yes Plan: Unclear cause of weight gain. Reportedly had TTE recently which was normal. Could have gone into overload in setting of PNA. - Received IV Lasix 40mg * 1 dose in ED, net neg 1.3L so far - Continue IV lasix 40mg IV daily for now - Will optimally be able to get OSH echo report - Consider TTE when patient is euvolemic. Would not get now. - Daily weights, I*Os, heart healthy diet (3) Multifocal pneumonia Is this a current diagnosis for this admission?: Yes Plan: CXR with multilobar infiltrates - Given severity of CXR, started Cefepime (low suspicion for MRSA PNA so did not start Vanc) - If rapidly improve, would de-escalate - Blood cultures pending - Joaquín for symptom control - BiPAP as needed (4) Leukocytosis Is this a current diagnosis for this admission?: Yes Plan: Due to PNA. Trend CBC. - Time Time Spent: 50 to 70 Minutes Critical Time spent with patient: 15-24 minutes Anticipated discharge: Home with Homehealth Within: within 72 hours - Inpatient Certification Medical Necessity: Need Close Monitoring Due to Risk of Patient Decompensation, Need for IV Antibiotics
[2018-02-18] MEDS ORDERED: ACETAMINOPHEN 325 MG TABLET ONE (16:31)
[2018-02-18] MEDS: LURASIDONE HCL 40 MG TABLET PO SCH (18:14)
[2018-02-18] MEDS: BENZTROPINE MESYLATE 1 MG TABLET PO SCH (18:14)
[2018-02-18] MEDS: CEFEPIME HCL 2 GM in DEXTROSE 5%-WATER 100 ML IV SCH (21:45)
[2018-02-18] MEDS ORDERED: CEFEPIME 2 GM/D5W RTU 2 GM/50 ML RTUPB IV SCH (22:00)
[2018-02-18] MEDS ORDERED: MIRTAZAPINE 15 MG TABLET PO SCH (22:00)
[2018-02-19] MEDS ORDERED: THIAMINE HCL 100 MG, FOLIC ACID 1 MG in NORMAL SALINE 250 ML IV ONE (00:36)
[2018-02-19] MEDS ORDERED: NALOXONE HCL INJ 2 MG/2 ML DISP.SYRIN IV ONE (00:36)
[2018-02-19] MEDS ORDERED: VANCOMYCIN HCL 1,000 MG in DEXTROSE 5%-WATER 250 ML IV ONE (00:36)
[2018-02-19] MEDS ORDERED: NALOXONE HCL INJ/PF 0.4 MG/1 ML SDV ONE (00:42)
[2018-02-19] MEDS ORDERED: VANCOMYCIN HCL 0 MG in DEXTROSE 5%-WATER 250 ML IV NR (00:45)
[2018-02-19 01:02] LABS: ARTERIAL BLOOD BASE EXCESS -1.1 mmol/L; ARTERIAL BLOOD H2CO3 0.85 mmol/L (1.05-1.35); ARTERIAL BLOOD HCO3 21.5 mmol/L (20-26); ARTERIAL BLOOD O2 SATURATION 97.5 % (94-98); ARTERIAL BLOOD PCO2 28.2 mmHg (35-45); ARTERIAL BLOOD PO2 88.8 mmHg (80-100); ARTERIAL BLOOD TOTAL CO2 22.4 mmol/L (21-25)
[2018-02-19 01:03] LABS: ARTERIAL BLOOD FIO2 30%
[2018-02-19] MEDS ORDERED: VANCOMYCIN HCL INJ 1000 MG VIAL IV PRN (01:24)
[2018-02-19] MEDS ORDERED: THIAMINE HCL INJ 200 MG/2 ML VIAL ONE (01:44)
[2018-02-19] MEDS ORDERED: FOLIC ACID INJ 5 MG/1 ML 10 ML VIAL ONE (01:52)
[2018-02-19] MEDS: POTASSI CL 20 MEQ/50 ML RIDER 20 MEQ/50 ML RTUPB IV SCH ×4 (01:52→08:06)
[2018-02-19] MEDS ORDERED: VANCOMYCIN HCL INJ 1000 MG VIAL ONE (01:52)
[2018-02-19] MEDS: ACETAMINOPHEN 325 MG TABLET PO PRN ×2 (02:06→16:35)
[2018-02-19 02:52] LABS: ABSOLUTE LYMPHOCYTES (AUTO) 1.2 10^3/uL (0.5-4.7); ABSOLUTE MONOCYTES (AUTO) 0.4 10^3/uL (0.1-1.4); ABSOLUTE NEUT (AUTO) 11.9 10^3/uL (1.7-8.2); BASOPHILS % (AUTO) 0.3 % (0-2); EOSINOPHILS % (AUTO) 0.2 % (0-6); HEMATOCRIT 31.7 % (36.0-47.0); LYMPHOCYTES % (AUTO) 9.1 % (13-45); MEAN CORPUSCULAR HEMOGLOBIN 31.2 pg (27.0-33.4); MEAN CORPUSCULAR HGB CONC 31.6 g/dL (32.0-36.0); MEAN CORPUSCULAR VOLUME 99 fl (80-97); MONOCYTES % (AUTO) 2.7 % (3-13); PLATELET COUNT 253 10^3/uL (150-450); RED BLOOD COUNT 3.21 10^6/uL (3.72-5.28); SEGMENTED NEUTROPHILS % (AUTO) 87.7 % (42-78); TOTAL CELLS COUNTED % (AUTO) 100 %; WHITE BLOOD COUNT 13.5 10^3/uL (4.0-10.5)
[2018-02-19 03:14] LABS: ANION GAP 8 (5-19); BLOOD UREA NITROGEN 11 mg/dL (7-20); CALCIUM 7.4 mg/dL (8.4-10.2); CARBON DIOXIDE 22 mmol/L (22-30); CHLORIDE 110 mmol/L (98-107); GLUCOSE 139 mg/dL (75-110); PHOSPHORUS 3.1 mg/dL (2.5-4.5); SODIUM 140.2 mmol/L (137-145)
[2018-02-19 03:19] LABS: POTASSIUM 2.9 mmol/L (3.6-5.0)
[2018-02-19] MEDS ORDERED: POTASSIUM CHLORIDE 20 MEQ/50 ML RTU IV ONE (03:45)
--- NOTE | 2018-02-19 04:24 | RADIOLOGY REPORT (SQ) ---
EXAM DESCRIPTION: CHEST SINGLE VIEW CLINICAL HISTORY: 47 years Female, sob COMPARISON: 02/18/2018. NUMBER OF VIEWS/TECHNIQUE: 1/AP LIMITATIONS: None. FINDINGS: Moderate mixed airspace and interstitial opacity with lower predominance, normal cardiac silhouette, no pneumothorax, upper abdominal clips, and no acute bone defect. IMPRESSION: No significant change.
[2018-02-19] MEDS: LEVOTHYROXINE SODIUM 0.088 MG TABLET PO SCH (05:35)
[2018-02-19] MEDS: LANSOPRAZOLE 30 MG TAB.RAP.DR PO SCH (05:35)
[2018-02-19] MEDS: GABAPENTIN 300 MG CAPSULE PO SCH ×3 (05:35→21:47)
[2018-02-19 07:49] LABS: HEMATOCRIT 32.3 % (36.0-47.0); HEMOGLOBIN 10.2 g/dL (12.0-15.5); MEAN CORPUSCULAR HEMOGLOBIN 31.4 pg (27.0-33.4); MEAN CORPUSCULAR HGB CONC 31.6 g/dL (32.0-36.0); MEAN CORPUSCULAR VOLUME 99 fl (80-97); PLATELET COUNT 147 10^3/uL (150-450); RED BLOOD COUNT 3.25 10^6/uL (3.72-5.28); RED CELL DISTRIBUTION WIDTH 15.1 % (11.5-14.0)
[2018-02-19 08:00] LABS: VENOUS BLOOD BASE EXCESS -2.8 mmol/L; VENOUS BLOOD HCO3 22.6 mmol/L (20-32); VENOUS BLOOD PCO2 41.7 mmHg (35-63); VENOUS BLOOD PH 7.35 (7.30-7.42)
[2018-02-19] MEDS: PHOSPHORUS #1 250 MG TABLET PO SCH ×2 (08:02→11:08)
[2018-02-19] MEDS: LURASIDONE HCL 40 MG TABLET PO SCH ×2 (08:02→16:38)
[2018-02-19 08:09] LABS: ANION GAP 5 (5-19); BLOOD UREA NITROGEN 10 mg/dL (7-20); CALCIUM 7.5 mg/dL (8.4-10.2); CARBON DIOXIDE 26 mmol/L (22-30); CHLORIDE 112 mmol/L (98-107); GLUCOSE 88 mg/dL (75-110); POTASSIUM 3.7 mmol/L (3.6-5.0); SODIUM 143.3 mmol/L (137-145)
[2018-02-19 08:19] LABS: ABSOLUTE LYMPHOCYTES# (MANUAL) 2.3 10^3/uL (0.5-4.7); ABSOLUTE MONOCYTES # (MANUAL) 0.9 10^3/uL (0.1-1.4); ABSOLUTE NEUTROPHILS# (MANUAL) 11.9 10^3/uL (1.7-8.2); BAND NEUTROPHILS % (MANUAL) 1 % (3-5); BASOPHILS % (MANUAL) 0 % (0-2); EOSINOPHILS % (MANUAL) 0 % (0-6); LYMPHOCYTES % (MANUAL) 15 % (13-45); MONOCYTES % (MANUAL) 6 % (3-13); SEGMENTED NEUTROPHILS % (MAN) 78 % (42-78); TOTAL CELLS COUNTED 100
[2018-02-19 08:21] LABS: ANISOCYTOSIS SLIGHT; HYPOCHROMASIA SLIGHT; PLATELET COMMENT ADEQUATE; POLYCHROMASIA SLIGHT; TOXIC GRANULATION SLIGHT
[2018-02-19] MEDS ORDERED: VANCOMYCIN HCL 750 MG in DEXTROSE 5%-WATER 250 ML IV SCH (10:00)
[2018-02-19] MEDS: POTASSIUM CHLORIDE 10 MEQ TABLET.SA PO SCH ×3 (11:08→18:40)
[2018-02-19] MEDS: BENZTROPINE MESYLATE 1 MG TABLET PO SCH ×2 (11:09→18:39)
[2018-02-19] MEDS: FUROSEMIDE INJ/PF 40 MG/4 ML SDV IV SCH (11:09)
[2018-02-19] MEDS: ENOXAPARIN SODIUM INJ 40 MG/0.4 ML DISP.SYRIN SUBCUT SCH (11:16)
[2018-02-19] MEDS: CEFEPIME HCL 2 GM in DEXTROSE 5%-WATER 100 ML IV SCH (11:20)
[2018-02-19] MEDS ORDERED: OXYCODONE-ACETAMINOPHEN 5-325 MG TABLET PO PRN (11:53)
[2018-02-19] MEDS: AMITRIPTYLINE HCL 50 MG TABLET PO SCH (15:02)
[2018-02-19] MEDS ORDERED: DEXTROSE 40% GEL 15 GM TUBE PO PRN ×2 (15:44)
[2018-02-19] MEDS ORDERED: GLUCAGON,HUMAN RECOMB 1 MG INJ IM PRN (15:44)
[2018-02-19] MEDS ORDERED: DEXTROSE 50%-WATER 25 GM/50 ML DISP.SYRIN IV PRN ×2 (15:44)
[2018-02-19] MEDS ORDERED: INSULIN LISPRO 100 UNIT/ML 3 ML VIAL SUBCUT PRN (15:44)
--- NOTE | 2018-02-19 15:45 | PDOC PROGRESS REPORT ---
Subjective Progress Note for:: 02/19/18 Subjective:: Patient complains of pain in her hip. She reports that patient had been stable while in ICU Review of system All organ systems evaluated and negative except as in subjective All significant diagnostics and laboratories have been reviewed Reason For Visit: SEPSIS, PNUMONIA Physical Exam Vital Signs: Temp Pulse Resp BP Pulse Ox 99.9 F 113 H 29 H 112/63 100 02/19/18 05:44 02/19/18 02:39 02/19/18 06:05 02/19/18 06:05 02/19/18 06:05 Pulse Oximeter Continuous Start: 02/18/18 11: 06 Freq: RTQ4 Status: Complete Document 02/18/18 16:00 LDA (Rec: 02/18/18 17:12 LDA [email or web address]) Pulse Oximetry Assessment Equipment Usage Equipment Discontinued Continuous SpO2 Machine # 00 Additional RT Notes Other pt. on spo2 and heart monitor Intake & Output 02/18/18 02/19/18 02/20/18 06:59 06:59 06:59 Intake Total 1443 Output Total 3825 Balance -2382 Weight 53.9 kg General appearance: PRESENT: no acute distress, cooperative, obese Head exam: PRESENT: atraumatic, normocephalic Eye exam: PRESENT: conjunctiva pink, EOMI, PERRLA Ear exam: PRESENT: normal external ear exam Mouth exam: PRESENT: moist Neck exam: PRESENT: full ROM. ABSENT: JVD, lymphadenopathy, tenderness Respiratory exam: PRESENT: clear to auscultation rona Cardiovascular exam: PRESENT: RRR. ABSENT: diastolic murmur, systolic murmur Vascular exam: PRESENT: normal capillary refill GI/Abdominal exam: PRESENT: normal bowel sounds, soft. ABSENT: tenderness Extremities exam: PRESENT: full ROM. ABSENT: pedal edema Musculoskeletal exam: ABSENT: ambulatory Neurological exam: PRESENT: alert, awake, oriented to person, oriented to place , oriented to time, oriented to situation, CN II-XII grossly intact Psychiatric exam: PRESENT: appropriate affect, normal mood Skin exam: PRESENT: intact, normal color Results Laboratory Results: 02/19/18 07:37 02/18/18 02/19/18 02/19/18 14:02 00:45 02:39 WBC RBC Hgb Hct MCV MCH MCHC RDW Plt Count Seg Neutrophils % Lymphocytes % Monocytes % Eosinophils % Basophils % Absolute Neutrophils Absolute Lymphocytes Absolute Monocytes Absolute Eosinophils Absolute Basophils Carbonic Acid 0.85 L HCO3/H2CO3 Ratio 25:1 ABG pH 7.50 H ABG pCO2 28.2 L ABG pO2 88.8 ABG HCO3 21.5 ABG O2 Saturation 97.5 ABG Base Excess -1.1 VBG pH VBG pCO2 VBG HCO3 VBG Base Excess FiO2 30% Sodium 140.2 Potassium 2.9 L* Chloride 110 H Carbon Dioxide 22 Anion Gap 8 BUN 11 Creatinine 0.42 L Est GFR ( Amer) > 60 Est GFR (Non-Af Amer) > 60 Glucose 139 H Lactic Acid 2.0 Calcium 7.4 L Phosphorus 3.1 02/19/18 02/19/18 02/19/18 02:39 07:37 07:37 WBC 13.5 H 15.0 H RBC 3.21 L 3.25 L Hgb 10.0 L 10.2 L Hct 31.7 L 32.3 L MCV 99 H 99 H MCH 31.2 31.4 MCHC 31.6 L 31.6 L RDW 15.0 H 15.1 H Plt Count 253 147 L Seg Neutrophils % 87.7 H Not Reportable Lymphocytes % 9.1 L Not Reportable Monocytes % 2.7 L Not Reportable Eosinophils % 0.2 Not Reportable Basophils % 0.3 Not Reportable Absolute Neutrophils 11.9 H Not Reportable Absolute Lymphocytes 1.2 Not Reportable Absolute Monocytes 0.4 Not Reportable Absolute Eosinophils 0.0 Not Reportable Absolute Basophils 0.0 Not Reportable Carbonic Acid HCO3/H2CO3 Ratio ABG pH ABG pCO2 ABG pO2 ABG HCO3 ABG O2 Saturation ABG Base Excess VBG pH 7.35 VBG pCO2 41.7 VBG HCO3 22.6 VBG Base Excess -2.8 FiO2 Sodium Potassium Chloride Carbon Dioxide Anion Gap BUN Creatinine Est GFR ( Amer) Est GFR (Non-Af Amer) Glucose Lactic Acid Calcium Phosphorus 02/18/18 11:36 Troponin I 0.063 Impressions: Chest X-Ray 02/19/18 00:00 IMPRESSION: No significant change. Assessment & Plan - Diagnosis (1) Acute congestive heart failure Qualifiers: Heart failure type: unspecified Qualified Code(s): I50.9 - Heart failure, unspecified Is this a current diagnosis for this admission?: No Plan: We will follow-up with echocardiogram. There is a good possibility that elevated BNP related to infectious process. Will also order follow-up chest x- ray (2) Acute respiratory failure with hypoxia Is this a current diagnosis for this admission?: Yes Plan: Patient still requiring BiPAP as needed. Will attempt to wean off as tolerated (3) Multifocal pneumonia Is this a current diagnosis for this admission?: Yes Plan: To discontinue cefepime and vancomycin and place patient on Levaquin (4) Anemia Qualifiers: Anemia type: other cause Is this a current diagnosis for this admission?: Yes Plan: To trend (5) Chronic pain Is this a current diagnosis for this admission?: Yes Plan: Continue with outpatient regimen and will watch for oversedation (6) Diabetes mellitus type 2 in obese Is this a current diagnosis for this admission?: Yes Plan: Will place patient on Humalog sliding scale with bedside glucose before meals and at bedtime - Time Time Spent with patient: 15-24 minutes Medications reviewed and adjusted accordingly: Yes Anticipated discharge: Home with Homehealth Within: within 72 hours - Inpatient Certification Based on my medical assessment, after consideration of the patient's comorbidities, presenting symptoms, or acuity I expect that the services needed warrant INPATIENT care.: Yes I certify that my determination is in accordance with my understanding of Medicare's requirements for reasonable and necessary INPATIENT services [42 CFR 412.3e].: Yes Medical Necessity: Need Close Monitoring Due to Risk of Patient Decompensation, Need for IV Antibiotics
[2018-02-19] MEDS ORDERED: LEVOFLOXACIN 750 MG/D5W RTU 750 MG/150 ML RTUPB IV SCH (18:00)
[2018-02-19] MEDS: OXYCODONE-ACETAMINOPHEN 5-325 MG TABLET PO PRN (21:46)
[2018-02-19] MEDS: MORPHINE SULFATE SR 15 MG TABLET PO SCH (21:47)
[2018-02-20] MEDS: GABAPENTIN 300 MG CAPSULE PO SCH ×3 (05:06→22:25)
[2018-02-20] MEDS: LEVOTHYROXINE SODIUM 0.088 MG TABLET PO SCH (05:06)
[2018-02-20] MEDS: LANSOPRAZOLE 30 MG TAB.RAP.DR PO SCH (05:07)
[2018-02-20] MEDS: ACETAMINOPHEN 325 MG TABLET PO PRN (05:07)
--- NOTE | 2018-02-20 07:04 | RADIOLOGY REPORT (SQ) ---
EXAM DESCRIPTION: CHEST SINGLE VIEW CLINICAL HISTORY: 47 years Female, follow up COMPARISON: 02/19/18. NUMBER OF VIEWS/TECHNIQUE: 1/AP LIMITATIONS: None. FINDINGS: Moderate mixed airspace and interstitial opacity of both lung sainz, normal cardiac silhouette, gaseous bowel distention. No pneumothorax. No acute bone defect. IMPRESSION: No significant change.
[2018-02-20 10:48] LABS: VANCOMYCIN,TROUGH < 5.0 ug/mL (5.0-20.0)
[2018-02-20] MEDS: MORPHINE SULFATE SR 15 MG TABLET PO SCH ×2 (11:08→22:25)
[2018-02-20] MEDS: BENZTROPINE MESYLATE 1 MG TABLET PO SCH ×2 (11:08→18:49)
[2018-02-20] MEDS: FUROSEMIDE INJ/PF 40 MG/4 ML SDV IV SCH (11:08)
[2018-02-20] MEDS: LURASIDONE HCL 40 MG TABLET PO SCH ×2 (11:09→18:47)
[2018-02-20] MEDS: AMITRIPTYLINE HCL 50 MG TABLET PO SCH (11:09)
[2018-02-20] MEDS: ENOXAPARIN SODIUM INJ 40 MG/0.4 ML DISP.SYRIN SUBCUT SCH (11:10)
--- NOTE | 2018-02-20 14:26 | PDOC PROGRESS REPORT ---
Subjective Progress Note for:: 02/20/18 Subjective:: Patient relates that she is on medication for pain because of bilateral hip pain. Patient was educated about the use of medications for pain which she takes them all at the same time along with the Ativan. She was made aware that it may stop her breathing. She was to take oxycodone only for breakthrough pain. Review of system All organ systems evaluated and negative except as in subjective All significant diagnostics and laboratories have been reviewed Reason For Visit: RESPIRATORY DISTRESS Physical Exam Vital Signs: Temp Pulse Resp BP Pulse Ox 102.1 F H 83 32 H 114/67 98 02/20/18 04:00 02/20/18 02:00 02/20/18 06:00 02/20/18 05:20 02/20/18 06:00 Pulse Oximeter Continuous Start: 02/18/18 11: 06 Freq: RTQ4 Status: Complete Document 02/18/18 16:00 LDA (Rec: 02/18/18 17:12 LDA [email or web address]) Pulse Oximetry Assessment Equipment Usage Equipment Discontinued Continuous SpO2 Machine # 00 Additional RT Notes Other pt. on spo2 and heart monitor Intake & Output 02/19/18 02/20/18 02/21/18 06:59 06:59 06:59 Intake Total 1443 1049 Output Total 3825 1555 Balance -2382 -1436 Weight 53.9 kg 54.7 kg General appearance: PRESENT: cooperative, well-developed, well-nourished Head exam: PRESENT: atraumatic, normocephalic Eye exam: PRESENT: conjunctiva pink, EOMI, PERRLA Ear exam: PRESENT: normal external ear exam Mouth exam: PRESENT: moist Respiratory exam: PRESENT: clear to auscultation rona. ABSENT: tachypnea, unlabored, wheezes Cardiovascular exam: PRESENT: RRR. ABSENT: diastolic murmur, systolic murmur Vascular exam: PRESENT: normal capillary refill GI/Abdominal exam: PRESENT: normal bowel sounds, soft. ABSENT: tenderness Extremities exam: PRESENT: full ROM, +1 edema Musculoskeletal exam: ABSENT: ambulatory Neurological exam: PRESENT: alert, awake, oriented to person, oriented to place , oriented to time, oriented to situation, CN II-XII grossly intact Psychiatric exam: PRESENT: appropriate affect, normal mood Skin exam: PRESENT: pallor Results Laboratory Results: 02/19/18 07:37 02/19/18 07:37 02/18/18 11:36 Troponin I 0.063 Impressions: Chest X-Ray 02/20/18 00:00 IMPRESSION: No significant change. Assessment & Plan - Diagnosis (1) Acute congestive heart failure Qualifiers: Heart failure type: unspecified Qualified Code(s): I50.9 - Heart failure, unspecified Is this a current diagnosis for this admission?: No Plan: To transition to demadex. Echocardiogram report still pending. Follow-up chest x-ray shows no significant change. Will request a CT of the chest to evaluate for pulmonary fibrosis (2) Acute respiratory failure with hypoxia Is this a current diagnosis for this admission?: Yes Plan: To use BiPAP at bedtime. Accordingly patient is supposed to use BiPAP at bedtime. (3) Multifocal pneumonia Is this a current diagnosis for this admission?: Yes Plan: Order CT of the chest to evaluate for pulmonary fibrosis and to continue Levaquin for now (4) Anemia Qualifiers: Anemia type: other cause Is this a current diagnosis for this admission?: Yes Plan: Due to chronic disease. Stable (5) Chronic pain Is this a current diagnosis for this admission?: Yes Plan: Continue with outpatient regimen and will watch for oversedation. Patient educated about the use of medications for pain and anxiolytics concurrently (6) Diabetes mellitus type 2 in obese Is this a current diagnosis for this admission?: Yes Plan: Continue Humalog sliding scale with bedside glucose before meals and at bedtime - Time Time Spent with patient: 15-24 minutes Medications reviewed and adjusted accordingly: Yes Anticipated discharge: Home with Homehealth Within: within 48 hours - Inpatient Certification Based on my medical assessment, after consideration of the patient's comorbidities, presenting symptoms, or acuity I expect that the services needed warrant INPATIENT care.: Yes I certify that my determination is in accordance with my understanding of Medicare's requirements for reasonable and necessary INPATIENT services [42 CFR 412.3e].: Yes Medical Necessity: Significant Comorbidiites Make Outpatient Treatment Too Risky , Need Close Monitoring Due to Risk of Patient Decompensation
--- NOTE | 2018-02-20 15:46 | RADIOLOGY REPORT (SQ) ---
EXAM DESCRIPTION: CT CHEST WITH COMPLETED DATE/TIME: 02/20/2018 3:22 pm REASON FOR STUDY: eval for pulmonary fibrosis COMPARISON: Chest films 10/13/2017, and 01/21/2018, 02/18/2018, 02/19/2018, 02/20/2018 TECHNIQUE: CT scan of the chest performed using helical scanning technique with dynamic intravenous contrast injection. Images reviewed with lung, soft tissue and bone windows. Reconstructed coronal and sagittal MPR images reviewed. All images stored on PACS. All CT scanners at this facility use dose modulation, iterative reconstruction, and/or weight based d osing when appropriate to reduce radiation dose to as low as reasonably achievable (ALARA). [facility]: Dose Right [facility]: CareDose [facility]: Dose Right [facility]: Teradose 4D [facility]: [employer] CONTRAST TYPE AND DOSE: contrast/concentration: Isovue 370.00 mg/ml; Total Contrast Delivered: 80.0 ml; Total Saline Delivered: 30.1 ml RENAL FUNCTION: creatinine 0.5 RADIATION DOSE: CT Rad equipment meets quality standard of care and radiation dose reduction techniq ues were employed. CTDIvol: 8.3 mGy. DLP: 293 mGy-cm. . LIMITATIONS: None. FINDINGS: LUNGS AND PLEURA: Diffuse bilateral alveolar and interstitial infiltrates are present, pne umonia versus edema. There are bilateral trace pleural effusions. No pneumothorax. No gross pulmonary masses. Airways are patent. HILAR AND MEDIASTINAL STRUCTURES: There is mild mediastinal adenopathy as follows: Precarinal 1.6 x 1.1 cm node axial image 21 Right hilar 1.8 x 1.3 cm image 23 HEART AND VASCULAR STRUCTURES: No aneurysm or dissection. No central pulmonary emboli. No pericardi al effusion. HARDWARE: None in the chest. UPPER ABDOMEN: Fatty liver. Surgical clips at the gastric fundus post gastric bypass. There is wall thickening along the efferrent limb of the gastric bypass. Clips right upper quadrant post cholecys tectomy. THYROID AND OTHER SOFT TISSUES: No masses. No adenopathy. BONES: No significant finding. OTHER: No other significant finding. IMPRESSION: Diffuse alveolar and interstitial infiltrates worrisome for edema. Small bilateral pleu ral effusions. Pneumonia could not be excluded. Mild mediastinal adenopathy Fatty liver, gastric bypass with inflammatory changes along the efferent limb, post cholecystectomy vincent babcock TECHNICAL DOCUMENTATION: JOB ID: [id number] Quality ID # [id number]: Final reports with documentation of one or more dose reduction techniques (e.g., Au tomated exposure control, adjustment of the mA and/or kV according to patient size, use of iterative reconstruction technique) 2010 [employer]- All Rights Reserved Reading location - IP/workstation name: [email or web address]
--- NOTE | 2018-02-20 16:15 | Physician Advisory Note ---
Physician Advisor ProgressNote .: Pursuant to the plan for [facility], I have reviewed the medical record for this patient. Physician Advisor Statement: Very nice documentation of supporting evidence for PNA dx: fever/chills, SOB, MÁRQUEZ, leukocytosis, ac resp failure, crackles, tachypnea, & it being POAdm - and of Acute Hypoxemic Resp Failure (86% on RA, w/resp distress/labored breathing, needing Bipap in ED) .... Please consider documenting, if you agree: 1. "Acute CHF, diastolic type" [or "high output failure due to "?] - ECHO 08/16/17 read as nl EF, Grade II/IV diastolic dysfunction, w/ borderline concentric LVH. 2. "Pneumonia, suspect gram- type" 3. "chronic opioid dependence" Thanks! CK
[2018-02-20] MEDS: LEVOFLOXACIN 750 MG TABLET PO SCH (18:48)
[2018-02-20] MEDS: OXYCODONE-ACETAMINOPHEN 5-325 MG TABLET PO PRN (18:49)
[2018-02-20] MEDS: CALCIUM CARBONATE 500 MG TAB.CHEW PO PRN (22:31)
[2018-02-21 05:08] LABS: HEMOGLOBIN 8.5 g/dL (12.0-15.5); MEAN CORPUSCULAR HEMOGLOBIN 31.6 pg (27.0-33.4); MEAN CORPUSCULAR HGB CONC 32.7 g/dL (32.0-36.0); MEAN CORPUSCULAR VOLUME 97 fl (80-97); PLATELET COUNT 222 10^3/uL (150-450); RED BLOOD COUNT 2.69 10^6/uL (3.72-5.28); RED CELL DISTRIBUTION WIDTH 14.3 % (11.5-14.0); WHITE BLOOD COUNT 8.5 10^3/uL (4.0-10.5)
[2018-02-21 05:20] LABS: ANION GAP 5 (5-19); BLOOD UREA NITROGEN 8 mg/dL (7-20); CALCIUM 7.5 mg/dL (8.4-10.2); CARBON DIOXIDE 28 mmol/L (22-30); CHLORIDE 106 mmol/L (98-107); GLUCOSE 74 mg/dL (75-110); POTASSIUM 3.7 mmol/L (3.6-5.0); SODIUM 138.7 mmol/L (137-145)
[2018-02-21] MEDS: LANSOPRAZOLE 30 MG TAB.RAP.DR PO SCH (05:29)
[2018-02-21] MEDS: GABAPENTIN 300 MG CAPSULE PO SCH ×3 (05:29→21:46)
[2018-02-21] MEDS: LEVOTHYROXINE SODIUM 0.088 MG TABLET PO SCH (05:29)
[2018-02-21] MEDS: CALCIUM CARBONATE 500 MG TAB.CHEW PO PRN ×4 (05:30→21:47)
[2018-02-21 06:15] LABS: ABSOLUTE MONOCYTES # (MANUAL) 0.4 10^3/uL (0.1-1.4); ABSOLUTE NEUTROPHILS# (MANUAL) 5.9 10^3/uL (1.7-8.2); BAND NEUTROPHILS % (MANUAL) 1 % (3-5); BASOPHILS % (MANUAL) 0 % (0-2); EOSINOPHILS % (MANUAL) 2 % (0-6); LYMPHOCYTES % (MANUAL) 23 % (13-45); MONOCYTES % (MANUAL) 5 % (3-13); SEGMENTED NEUTROPHILS % (MAN) 67 % (42-78); TOTAL CELLS COUNTED 100
[2018-02-21 06:20] LABS: ANISOCYTOSIS SLIGHT; POIKILOCYTOSIS SLIGHT; TOXIC GRANULATION 1+; TOXIC VACUOLATION PRESENT
[2018-02-21 06:21] LABS: PLATELET COMMENT ADEQUATE; PLATELET GIANT PRESENT; PLATELET LARGE PRESENT; SCHISTOCYTES SLIGHT; TEAR DROP CELLS SLIGHT
[2018-02-21 06:23] LABS: MYELOCYTES % (MANUAL) 1 % (0)
[2018-02-21] MEDS: LURASIDONE HCL 40 MG TABLET PO SCH ×2 (07:48→17:44)
[2018-02-21] MEDS: MIDODRINE HCL 5 MG TABLET PO SCH ×3 (10:45→17:46)
[2018-02-21] MEDS: ENOXAPARIN SODIUM INJ 40 MG/0.4 ML DISP.SYRIN SUBCUT SCH (11:14)
[2018-02-21] MEDS: BENZTROPINE MESYLATE 1 MG TABLET PO SCH ×2 (11:16→17:45)
[2018-02-21] MEDS: AMITRIPTYLINE HCL 50 MG TABLET PO SCH (11:16)
[2018-02-21] MEDS: MORPHINE SULFATE SR 15 MG TABLET PO SCH ×2 (11:16→21:46)
[2018-02-21] MEDS: TORSEMIDE 20 MG TABLET PO SCH (11:19)
--- NOTE | 2018-02-21 13:31 | PDOC PROGRESS REPORT ---
Subjective Progress Note for:: 02/21/18 Subjective:: Patient relates that she is feeling better. Admits had not been using CPAP for a year because the machine got broken. Review of system All organ systems evaluated and negative except as in subjective All significant diagnostics and laboratories have been reviewed Reason For Visit: RESPIRATORY DISTRESS Physical Exam Vital Signs: Temp Pulse Resp BP Pulse Ox 99.5 F 85 30 H 105/61 96 02/21/18 03:52 02/21/18 07:00 02/21/18 06:00 02/21/18 05:32 02/21/18 06:00 Pulse Oximeter Continuous Start: 02/18/18 11: 06 Freq: RTQ4 Status: Complete Document 02/18/18 16:00 LDA (Rec: 02/18/18 17:12 LDA [email or web address]) Pulse Oximetry Assessment Equipment Usage Equipment Discontinued Continuous SpO2 Machine # 00 Additional RT Notes Other pt. on spo2 and heart monitor Intake & Output 02/20/18 02/21/18 02/22/18 06:59 06:59 06:59 Intake Total 1049 444 Output Total 2485 2900 Balance -1436 -2456 Weight 54.7 kg 52.2 kg Results Laboratory Results: 02/21/18 04:51 02/21/18 04:51 02/20/18 02/21/18 02/21/18 10:03 04:51 04:51 WBC 8.5 RBC 2.69 L Hgb 8.5 L Hct 26.0 L MCV 97 MCH 31.6 MCHC 32.7 RDW 14.3 H Plt Count 222 Seg Neutrophils % Not Reportable Lymphocytes % Not Reportable Monocytes % Not Reportable Eosinophils % Not Reportable Basophils % Not Reportable Absolute Neutrophils Not Reportable Absolute Lymphocytes Not Reportable Absolute Monocytes Not Reportable Absolute Eosinophils Not Reportable Absolute Basophils Not Reportable Sodium 138.7 Potassium 3.7 Chloride 106 Carbon Dioxide 28 Anion Gap 5 BUN 8 Creatinine 0.49 L 0.41 L Est GFR ( Amer) > 60 > 60 Est GFR (Non-Af Amer) > 60 > 60 Glucose 74 L Calcium 7.5 L Magnesium 1.7 02/18/18 11:36 Troponin I 0.063 Impressions: Chest CT 02/20/18 00:00 IMPRESSION: Diffuse alveolar and interstitial infiltrates worrisome for edema. Small bilateral pleural effusions. Pneumonia could not be excluded. Mild mediastinal adenopathy Fatty liver, gastric bypass with inflammatory changes along the efferent limb, post cholecystectomy change Chest X-Ray 02/20/18 00:00 IMPRESSION: No significant change. Assessment & Plan - Diagnosis (1) Acute congestive heart failure Qualifiers: Heart failure type: unspecified Qualified Code(s): I50.9 - Heart failure, unspecified Is this a current diagnosis for this admission?: No Plan: Echocardiogram has been ordered and result is pending. Suspect a right-sided component due to low blood pressures. To start midodrine and restart Demadex (2) Acute respiratory failure with hypoxia Is this a current diagnosis for this admission?: Yes Plan: To use BiPAP at bedtime. Improved (3) Multifocal pneumonia Is this a current diagnosis for this admission?: Yes Plan: No signs of fibrosis per CT scan. Patient will be treated for pneumonia and heart failure (4) Anemia Qualifiers: Anemia type: other cause Is this a current diagnosis for this admission?: Yes Plan: Due to chronic disease. Stable (5) Chronic pain Is this a current diagnosis for this admission?: Yes Plan: Continue with outpatient regimen and will watch for oversedation. Patient educated about the use of medications for pain and anxiolytics concurrently (6) Diabetes mellitus type 2 in obese Is this a current diagnosis for this admission?: Yes Plan: Continue Humalog sliding scale with bedside glucose before meals and at bedtime - Time Time Spent with patient: 15-24 minutes Medications reviewed and adjusted accordingly: Yes Anticipated discharge: Acute Rehab Within: when bed available - Inpatient Certification Based on my medical assessment, after consideration of the patient's comorbidities, presenting symptoms, or acuity I expect that the services needed warrant INPATIENT care.: Yes I certify that my determination is in accordance with my understanding of Medicare's requirements for reasonable and necessary INPATIENT services [42 CFR 412.3e].: Yes Medical Necessity: Need Close Monitoring Due to Risk of Patient Decompensation
[2018-02-21] MEDS: LEVOFLOXACIN 750 MG TABLET PO SCH (17:38)
[2018-02-21] MEDS: LORAZEPAM 1 MG TABLET PO PRN (17:38)
[2018-02-21] MEDS: OXYCODONE-ACETAMINOPHEN 5-325 MG TABLET PO PRN (17:45)
--- NOTE | 2018-02-21 19:36 | XCELERA REPORT ---
[address] [address] Transthoracic Echocardiogram Report Name: HILTON MI Age: 47 yrs Gender: Female : 1970 Patient Status: Inpatient Patient Location: ICU^[id number] Study Date: 02/21/2018 09:39 AM Height: 61 in Weight: 118 lb BSA: 1.5 m2 Procedure: A complete two-dimensional transthoracic echocardiogram was performed (2D, M-mode, spectral and color flow Doppler). The study was technically difficult with many images being suboptimal in quality. Reason For Study: elevated BNP Ordering Physician: LIDA ASHFORD Performed By: Carolynn Robles Interpretation Summary The study was technically difficult with many images being suboptimal in quality. The left ventricular ejection fraction is normal. Doppler measurements suggest normal left ventricular diastolic function The left ventricle is grossly normal size. There is borderline concentric left ventricular hypertrophy. Wall motion cannot be accurately commented on, but no definite regional wall motion abnormalities noted. The right ventricular systolic function is normal. Borderline right atrial enlargement. The left atrial size is normal. There is no mitral valve stenosis. There is a trace amount of mitral regurgitation There is no aortic valve stenosis No aortic regurgitation is present. There is a trace or physiologic amount of tricuspid regurgitation Tricuspid regurgitation jet envelope not well defined to measure RV systolic pressure accurately. The aortic root is not well visualized but is probably normal size. The inferior vena cava was not well visualized There is no pericardial effusion. MMode/2D Measurements & Calculations RVDd: 2.3 cm LVIDd: 4.9 cmFS: 24.3 % Ao root diam: 2.8 cm IVSd: 0.90 cm LVIDs: 3.7 cmEDV(Teich): 111.3 ml LVPWd: 1.0 cmESV(Teich): 57.7 ml Ao root area: 6.3 cm2 EF(Teich): 48.1 % LA dimension: 3.6 cm LVOT diam: 2.2 cm LVOT area: 3.9 cm2 Doppler Measurements & Calculations MV E max valdemar: MV P1/2t max valdemar: Ao V2 max: LV V1 max P.3 cm/sec 93.8 cm/sec 141.2 cm/sec 5.6 mmHg MV A max valdemar: MV P1/2t: 69.5 msec Ao max PG: LV V1 max: 71.1 cm/sec MVA(P1/2t): 3.2 cm2 8.0 mmHg 118.0 cm/sec MV E/A: 1.3 MV dec slope: MARCUS(V,D): 3.2 cm2 395.4 cm/sec2 PA V2 max: TR max valdemar: 101.7 cm/sec 261.7 cm/sec PA max PG: TR max P.4 mmHg 4.1 mmHg Left Ventricle The left ventricle is grossly normal size. There is borderline concentric left ventricular hypertrophy. The left ventricular ejection fraction is normal. Doppler measurements suggest normal left ventricular diastolic function. Wall motion cannot be accurately commented on, but no definite regional wall motion abnormalities noted. Right Ventricle The right ventricle is borderline dilated. There is normal right ventricular wall thickness. The right ventricular systolic function is normal. Atria Borderline right atrial enlargement. The left atrial size is normal. Interarterial septum not well visualized and not well dopplered. Cannot comment on ASD/PFO presence. Mitral Valve The mitral valve is grossly normal. There is no mitral valve stenosis. There is a trace amount of mitral regurgitation. Aortic Valve The aortic valve is not well visualized secondary to technical limitations. The aortic valve opens well. There is no aortic valve stenosis. No aortic regurgitation is present. Tricuspid Valve The tricuspid valve is not well visualized, but is grossly normal. There is no tricuspid stenosis. There is a trace or physiologic amount of tricuspid regurgitation. Tricuspid regurgitation jet envelope not well defined to measure RV systolic pressure accurately. Pulmonic Valve The pulmonic valve is not well visualized. Great Vessels The aortic root is not well visualized but is probably normal size. The inferior vena cava was not well visualized. Effusions There is no pericardial effusion. : LIDA ASHFORD > Benitez Gabriel
[2018-02-22] MEDS: OXYCODONE-ACETAMINOPHEN 5-325 MG TABLET PO PRN ×2 (04:01→17:11)
[2018-02-22] MEDS: LANSOPRAZOLE 30 MG TAB.RAP.DR PO SCH (06:34)
[2018-02-22] MEDS: LEVOTHYROXINE SODIUM 0.088 MG TABLET PO SCH (06:35)
[2018-02-22] MEDS: GABAPENTIN 300 MG CAPSULE PO SCH ×3 (06:35→21:33)
[2018-02-22] MEDS: CALCIUM CARBONATE 500 MG TAB.CHEW PO PRN ×4 (06:37→21:33)
[2018-02-22] MEDS: LURASIDONE HCL 40 MG TABLET PO SCH ×2 (08:34→16:10)
--- NOTE | 2018-02-22 09:48 | PDOC PROGRESS REPORT ---
Subjective Progress Note for:: 02/22/18 Subjective:: 47-year-old female with past medical history of Bipolar disorder Chronic pain Migraines Hypertension Hyperlipidemia Arthritis Gastroesophageal reflux disease Type 2 diabetes-in the past. No longer active. The patient presented to the hospital on February 18 with weakness and shortness of breath with exertion progressively getting worse. She also reported fevers chills and worsening lower extremity edema. She reported a 20 pound weight gain in the past week. Upon presentation the patient was found to be febrile with a temperature of 100.8 and hypoxia 86% on room air. She was also noted to have leukocytosis and an elevated BNP. Chest x-ray showed multifocal pneumonia. The patient was started on BiPAP and diagnosed with acute congestive heart failure exacerbation and multifocal pneumonia and started on Cefepime as well as continued on IV Lasix. She feels better overall. Continues to require 2 L of oxygen by nasal cannula. She is using BiPAP at night. Reason For Visit: RESPIRATORY DISTRESS Physical Exam Vital Signs: Temp Pulse Resp BP Pulse Ox 97.6 F 64 17 98/56 L 98 02/22/18 04:00 02/21/18 19:00 02/22/18 06:00 02/21/18 19:19 02/22/18 08:19 Pulse Oximeter Continuous Start: 02/18/18 11: 06 Freq: RTQ4 Status: Complete Document 02/18/18 16:00 LDA (Rec: 02/18/18 17:12 LDA [email or web address]) Pulse Oximetry Assessment Equipment Usage Equipment Discontinued Continuous SpO2 Machine # 00 Additional RT Notes Other pt. on spo2 and heart monitor Intake & Output 02/21/18 02/22/18 02/23/18 06:59 06:59 06:59 Intake Total 444 750 Output Total 2900 1200 Balance -2456 -450 Weight 52.2 kg 51.2 kg General appearance: PRESENT: no acute distress, cooperative Head exam: PRESENT: atraumatic, normocephalic Eye exam: PRESENT: conjunctiva pink, PERRLA. ABSENT: scleral icterus Mouth exam: PRESENT: moist Neck exam: ABSENT: JVD, tracheal deviation Respiratory exam: PRESENT: rhonchi, symmetrical. ABSENT: crackles, wheezes Cardiovascular exam: PRESENT: RRR GI/Abdominal exam: PRESENT: normal bowel sounds, soft. ABSENT: tenderness Rectal exam: PRESENT: deferred Extremities exam: ABSENT: calf tenderness, pedal edema Neurological exam: PRESENT: alert, awake, oriented to person, oriented to place , oriented to time, oriented to situation Psychiatric exam: PRESENT: normal mood Skin exam: ABSENT: abrasion, rash Results Laboratory Results: 02/21/18 04:51 02/21/18 04:51 02/18/18 11:36 Troponin I 0.063 Impressions: Chest CT 02/20/18 00:00 IMPRESSION: Diffuse alveolar and interstitial infiltrates worrisome for edema. Small bilateral pleural effusions. Pneumonia could not be excluded. Mild mediastinal adenopathy Fatty liver, gastric bypass with inflammatory changes along the efferent limb, post cholecystectomy change Chest X-Ray 02/20/18 00:00 IMPRESSION: No significant change. Assessment & Plan - Diagnosis (1) Acute respiratory failure with hypoxia Is this a current diagnosis for this admission?: Yes (2) Acute congestive heart failure Qualifiers: Heart failure type: unspecified Qualified Code(s): I50.9 - Heart failure, unspecified Is this a current diagnosis for this admission?: Yes Plan: Continue Midodrine and Torsemide (3) Multifocal pneumonia Is this a current diagnosis for this admission?: Yes Plan: Day 5 of antibiotics. No sputum culture available. (4) Diabetes 1.5, managed as type 2 Is this a current diagnosis for this admission?: Yes Plan: Discontinue insulin sliding scale (5) Hypothyroidism Is this a current diagnosis for this admission?: Yes Plan: Continue Synthroid (6) Anemia of chronic disease Is this a current diagnosis for this admission?: Yes Plan: Stable (7) Chronic pain Is this a current diagnosis for this admission?: Yes Plan: Continue Amitriptyline and Gabapentin. (8) UTI (urinary tract infection) Qualifiers: Urinary tract infection type: acute cystitis Is this a current diagnosis for this admission?: Yes Plan: Urine culture positive for Proteus and GPC- identification pending. Was on Cefepime on admission, now day 3 of Levofloxacin - Time Time Spent with patient: 35 or more minutes
[2018-02-22] MEDS: LACTOBACILLUS ACIDOPHILUS 250 MG TAB PO SCH ×2 (10:34→17:09)
[2018-02-22] MEDS: TORSEMIDE 20 MG TABLET PO SCH (10:34)
[2018-02-22] MEDS: MAGNESIUM OXIDE 400 MG TABLET PO SCH ×2 (10:38→17:10)
[2018-02-22] MEDS: MORPHINE SULFATE SR 15 MG TABLET PO SCH ×2 (10:39→21:34)
[2018-02-22] MEDS: AMITRIPTYLINE HCL 50 MG TABLET PO SCH (10:41)
[2018-02-22] MEDS: MIDODRINE HCL 5 MG TABLET PO SCH ×3 (10:41→17:14)
[2018-02-22] MEDS: BENZTROPINE MESYLATE 1 MG TABLET PO SCH ×2 (10:43→17:13)
[2018-02-22] MEDS: ENOXAPARIN SODIUM INJ 40 MG/0.4 ML DISP.SYRIN SUBCUT SCH (10:43)
[2018-02-22 10:53] LABS: ANION GAP 6 (5-19); BLOOD UREA NITROGEN 5 mg/dL (7-20); CALCIUM 7.3 mg/dL (8.4-10.2); CARBON DIOXIDE 27 mmol/L (22-30); CHLORIDE 106 mmol/L (98-107); GLUCOSE 89 mg/dL (75-110); PHOSPHORUS 3.7 mg/dL (2.5-4.5); POTASSIUM 3.6 mmol/L (3.6-5.0); SODIUM 139.1 mmol/L (137-145)
[2018-02-22] MEDS: LORAZEPAM 1 MG TABLET PO PRN ×2 (11:42→22:50)
[2018-02-22] MEDS ORDERED: VANCOMYCIN HCL 0 MG in DEXTROSE 5%-WATER 250 ML IV NR (16:00)
[2018-02-22] MEDS: TOPIRAMATE 25 MG TABLET PO SCH (17:13)
[2018-02-22] MEDS: ACETAMINOPHEN 325 MG TABLET PO PRN (20:21)
[2018-02-22] MEDS: VANCOMYCIN HCL 750 MG in DEXTROSE 5%-WATER 250 ML IV SCH (20:25)
[2018-02-22] MEDS: LEVOFLOXACIN 750 MG TABLET PO SCH (21:33)
[2018-02-23] MEDS: VANCOMYCIN HCL 750 MG in DEXTROSE 5%-WATER 250 ML IV SCH ×3 (01:12→18:55)
[2018-02-23] MEDS: CALCIUM CARBONATE 500 MG TAB.CHEW PO PRN ×4 (03:57→21:48)
[2018-02-23] MEDS: LANSOPRAZOLE 30 MG TAB.RAP.DR PO SCH (05:43)
[2018-02-23] MEDS: GABAPENTIN 300 MG CAPSULE PO SCH ×3 (05:43→21:48)
[2018-02-23] MEDS: LEVOTHYROXINE SODIUM 0.088 MG TABLET PO SCH (05:43)
[2018-02-23] MEDS: OXYCODONE-ACETAMINOPHEN 5-325 MG TABLET PO PRN ×2 (05:47→15:29)
[2018-02-23] MEDS: AMITRIPTYLINE HCL 50 MG TABLET PO SCH (09:58)
[2018-02-23] MEDS: MAGNESIUM OXIDE 400 MG TABLET PO SCH ×2 (09:59→18:54)
[2018-02-23] MEDS: LACTOBACILLUS ACIDOPHILUS 250 MG TAB PO SCH ×2 (09:59→18:54)
[2018-02-23] MEDS: BENZTROPINE MESYLATE 1 MG TABLET PO SCH ×2 (10:01→18:54)
[2018-02-23] MEDS: CYANOCOBALAMIN (VITAMIN B-12) 1,000 MCG TABLET PO SCH (10:01)
[2018-02-23] MEDS: LURASIDONE HCL 40 MG TABLET PO SCH (10:02)
[2018-02-23] MEDS: MORPHINE SULFATE SR 15 MG TABLET PO SCH ×2 (10:03→21:48)
[2018-02-23] MEDS: ENOXAPARIN SODIUM INJ 40 MG/0.4 ML DISP.SYRIN SUBCUT SCH (10:06)
[2018-02-23] MEDS: MIDODRINE HCL 5 MG TABLET PO SCH ×3 (10:12→18:55)
[2018-02-23] MEDS: TORSEMIDE 20 MG TABLET PO SCH (10:23)
--- NOTE | 2018-02-23 13:35 | PDOC PROGRESS REPORT ---
Subjective Progress Note for:: 02/23/18 Subjective:: 47-year-old female with past medical history of Bipolar disorder Chronic pain Migraines Hypertension Hyperlipidemia Arthritis Gastroesophageal reflux disease Type 2 diabetes-in the past. No longer active. The patient presented to the hospital on February 18 with weakness and shortness of breath with exertion progressively getting worse. She also reported fevers chills and worsening lower extremity edema. She reported a 20 pound weight gain in the past week. Upon presentation the patient was found to be febrile with a temperature of 100.8 and hypoxia 86% on room air. She was also noted to have leukocytosis and an elevated BNP. Chest x-ray showed multifocal pneumonia. The patient was started on BiPAP and diagnosed with acute congestive heart failure exacerbation and multifocal pneumonia and started on Cefepime as well as continued on IV Lasix. Cough and dyspnea improved, some SOB with exertion persists. Does not use O2 at home. Echo showed normal LVEF and diastolic function with no significant valvular abnormalities. RV and RA mildly dilated. Anasarca could possibly be due to liver disease vs RV dysfunction in the setting of severe b/l pneumonia. Her BP runs chronically low she reports. Urine culture positive for MRSA. Day 2 Vancomycin. She reports a Bactrim allergy. Reason For Visit: RESPIRATORY DISTRESS Physical Exam Vital Signs: Temp Pulse Resp BP Pulse Ox 98.5 F 62 16 97/49 L 99 02/23/18 12:24 02/23/18 12:24 02/23/18 12:24 02/23/18 12:24 02/23/18 12:24 Pulse Oximeter Continuous Start: 02/18/18 11: 06 Freq: RTQ4 Status: Complete Document 02/18/18 16:00 LDA (Rec: 02/18/18 17:12 LDA [email or web address]) Pulse Oximetry Assessment Equipment Usage Equipment Discontinued Continuous SpO2 Machine # 00 Additional RT Notes Other pt. on spo2 and heart monitor Intake & Output 02/22/18 02/23/18 02/24/18 06:59 06:59 06:59 Intake Total 750 760 Output Total 1200 1350 Balance -450 -590 Weight 51.2 kg 51.2 kg General appearance: PRESENT: no acute distress Eye exam: PRESENT: PERRLA. ABSENT: scleral icterus Ear exam: PRESENT: TM's normal bilaterally Neck exam: ABSENT: JVD, tracheal deviation Respiratory exam: PRESENT: rhonchi, symmetrical, unlabored Cardiovascular exam: PRESENT: RRR Vascular exam: ABSENT: pallor GI/Abdominal exam: PRESENT: normal bowel sounds, soft. ABSENT: tenderness Rectal exam: PRESENT: deferred Extremities exam: PRESENT: pedal edema. ABSENT: calf tenderness Musculoskeletal exam: ABSENT: tenderness Neurological exam: PRESENT: alert, awake, oriented to person, oriented to place , oriented to time Psychiatric exam: PRESENT: normal mood Skin exam: ABSENT: petechiae Results Laboratory Results: 02/21/18 04:51 02/22/18 10:17 02/23/18 04:44 TSH 3.34 02/18/18 02/23/18 11:36 04:44 Troponin I 0.063 NT-Pro-B Natriuret Pep 799 H Impressions: Chest CT 02/20/18 00:00 IMPRESSION: Diffuse alveolar and interstitial infiltrates worrisome for edema. Small bilateral pleural effusions. Pneumonia could not be excluded. Mild mediastinal adenopathy Fatty liver, gastric bypass with inflammatory changes along the efferent limb, post cholecystectomy change Chest X-Ray 02/20/18 00:00 IMPRESSION: No significant change. Assessment & Plan - Diagnosis (1) Acute respiratory failure with hypoxia Is this a current diagnosis for this admission?: Yes Plan: Due to pulmonary edema and pneumonia. (2) Acute congestive heart failure Qualifiers: Heart failure type: unspecified Qualified Code(s): I50.9 - Heart failure, unspecified Is this a current diagnosis for this admission?: Yes Plan: Suspected acute right sided CHF- Continue Torsemide (3) Multifocal pneumonia Is this a current diagnosis for this admission?: Yes Plan: Day 6 of antibiotics (Levaquin) No sputum culture available. (4) Diabetes 1.5, managed as type 2 Is this a current diagnosis for this admission?: Yes Plan: Discontinue insulin sliding scale, diabetes resolved after her gastric bypass surgery 2 years ago. (5) Hypothyroidism Is this a current diagnosis for this admission?: Yes Plan: Continue Synthroid (6) Anemia of chronic disease Is this a current diagnosis for this admission?: Yes Plan: Stable (7) Chronic pain Is this a current diagnosis for this admission?: Yes Plan: Continue Amitriptyline and Gabapentin. (8) UTI (urinary tract infection) Qualifiers: Urinary tract infection type: acute cystitis Is this a current diagnosis for this admission?: Yes Plan: Urine culture positive for Proteus and MRSA- day 2 of Vancomycin and day 4 of Levofloxacin - Time Time Spent with patient: 35 or more minutes
[2018-02-23] MEDS ORDERED: MUPIROCIN CALCIUM 2% CREAM 15 GM TP ONE (14:00)
--- NOTE | 2018-02-23 14:13 | RADIOLOGY REPORT (SQ) ---
EXAM DESCRIPTION: U/S ABDOMEN LTD W/DOPPLER COMPLETED DATE/TIME: 02/23/2018 2:04 pm REASON FOR STUDY: Cirrhosis, ascites, portal vein blood flow COMPARISON: 04/24/2017 TECHNIQUE: Dynamic and static grayscale images acquired of the right upper quadrant and recorded on PACS. Additional selected color Doppler and spectral images recorded. LIMITATIONS: Study limited due to acoustical interference from fat or from air in the bowel. FINDINGS: PANCREAS: Parts or all of the pancreas poorly seen secondary to acoustical interference fr om fat or from air in the bowel. LIVER: Echotexture is coarse with increased echogenicity consistent with fatty infiltration. No mass es. LIVER VASCULATURE: Normal directional flow of the main portal vein and hepatic veins. GALLBLADDER: Surgically absent. ULTRASOUND-DETECTED GILL'S SIGN: Negative. INTRAHEPATIC DUCTS AND COMMON DUCT: CBD and intrahepatic ducts normal caliber. No filling defects. INFERIOR VENA CAVA: Normal flow. AORTA: No aneurysm. RIGHT KIDNEY: Normal size. Normal echogenicity. No solid or suspicious masses. No hydronephrosis. No calcifications. PERITONEAL CAVITY AND RIGHT PLEURAL SPACE: No ascites or effusions. OTHER: No other significant finding. IMPRESSION: FATTY LIVER. STATUS POST CHOLECYSTECTOMY. PANCREAS PARTIALLY OR COMPLETELY OBSCURED. O THERWISE NORMAL RIGHT UPPER QUADRANT ULTRASOUND. TECHNICAL DOCUMENTATION: JOB ID: [id number] [employer]- All Rights Reserved Reading location - IP/workstation name: [email or web address]
--- NOTE | 2018-02-23 14:22 | RADIOLOGY REPORT (SQ) ---
EXAM DESCRIPTION: CHEST 2 VIEWS COMPLETED DATE/TIME: 02/23/2018 2:11 pm REASON FOR STUDY: Dyspnea COMPARISON: 04/15/2017 EXAM PARAMETERS: NUMBER OF VIEWS: two views TECHNIQUE: Digital Frontal and Lateral radiographic views of the chest acquired. RADIATION DOSE: NA LIMITATIONS: none FINDINGS: LUNGS AND PLEURA: No new opacities, masses or pneumothorax. No pleural effusion. MEDIASTINUM AND HILAR STRUCTURES: No masses or contour abnormalities. HEART AND VASCULAR STRUCTURES: Heart stable in size. No evidence for failure. BONES: No acute findings. HARDWARE: None in the chest. OTHER: No other significant finding. IMPRESSION: NO ACUTE RADIOGRAPHIC FINDING IN THE CHEST. NO SIGNIFICANT CHANGE FROM PRIOR STUDY. TECHNICAL DOCUMENTATION: JOB ID: [id number] [employer] - [employer]- All Rights Reserved Reading location - IP/workstation name: [email or web address]
[2018-02-23] MEDS: TOPIRAMATE 25 MG TABLET PO SCH (18:54)
[2018-02-23] MEDS: MUPIROCIN CALCIUM 2% CREAM 15 GM TP SCH (18:55)
[2018-02-23] MEDS: LEVOFLOXACIN 750 MG TABLET PO SCH (21:48)
[2018-02-24] MEDS: OXYCODONE-ACETAMINOPHEN 5-325 MG TABLET PO PRN ×2 (00:20→16:48)
[2018-02-24] MEDS: VANCOMYCIN HCL 750 MG in DEXTROSE 5%-WATER 250 ML IV SCH ×3 (02:38→16:50)
[2018-02-24] MEDS: CALCIUM CARBONATE 500 MG TAB.CHEW PO PRN ×4 (05:35→22:09)
[2018-02-24] MEDS: LANSOPRAZOLE 30 MG TAB.RAP.DR PO SCH (05:35)
[2018-02-24] MEDS: GABAPENTIN 300 MG CAPSULE PO SCH ×3 (05:35→22:09)
[2018-02-24] MEDS: LEVOTHYROXINE SODIUM 0.088 MG TABLET PO SCH (05:36)
[2018-02-24 05:55] LABS: HEMATOCRIT 27.2 % (36.0-47.0); HEMOGLOBIN 8.9 g/dL (12.0-15.5); MEAN CORPUSCULAR HEMOGLOBIN 32.3 pg (27.0-33.4); MEAN CORPUSCULAR HGB CONC 32.7 g/dL (32.0-36.0); MEAN CORPUSCULAR VOLUME 99 fl (80-97); PLATELET COUNT 299 10^3/uL (150-450); RED BLOOD COUNT 2.75 10^6/uL (3.72-5.28); RED CELL DISTRIBUTION WIDTH 14.7 % (11.5-14.0); WHITE BLOOD COUNT 7.4 10^3/uL (4.0-10.5)
[2018-02-24 06:25] LABS: ABSOLUTE LYMPHOCYTES# (MANUAL) 1.4 10^3/uL (0.5-4.7); ABSOLUTE MONOCYTES # (MANUAL) 0.4 10^3/uL (0.1-1.4); ABSOLUTE NEUTROPHILS# (MANUAL) 5.5 10^3/uL (1.7-8.2); BAND NEUTROPHILS % (MANUAL) 3 % (3-5); BASOPHILS % (MANUAL) 1 % (0-2); LYMPHOCYTES % (MANUAL) 19 % (13-45); METAMYELOCYTES % (MANUAL) 2 % (0); MONOCYTES % (MANUAL) 6 % (3-13); MYELOCYTES % (MANUAL) 2 % (0); SEGMENTED NEUTROPHILS % (MAN) 67 % (42-78); TOTAL CELLS COUNTED 100
[2018-02-24 06:28] LABS: ANISOCYTOSIS SLIGHT; HYPOCHROMASIA 1+; PLATELET COMMENT ADEQUATE; PLATELET LARGE PRESENT; POLYCHROMASIA SLIGHT; TOXIC GRANULATION SLIGHT
[2018-02-24 06:41] LABS: ALANINE AMINOTRANSFERASE 21 U/L (9-52); ALBUMIN 2.3 g/dL (3.5-5.0); ALKALINE PHOSPHATASE 132 U/L (38-126); ANION GAP 7 (5-19); ASPARTATE AMINO TRANSFERASE 19 U/L (14-36); BLOOD UREA NITROGEN 10 mg/dL (7-20); CALCIUM 7.9 mg/dL (8.4-10.2); CARBON DIOXIDE 30 mmol/L (22-30); CHLORIDE 104 mmol/L (98-107); GLUCOSE 81 mg/dL (75-110); SODIUM 140.9 mmol/L (137-145); TOTAL PROTEIN 4.7 g/dL (6.3-8.2)
[2018-02-24 06:46] LABS: BILIRUBIN,TOTAL < 0.1 mg/dL (0.2-1.3); POTASSIUM 4.4 mmol/L (3.6-5.0)
[2018-02-24] MEDS: TORSEMIDE 20 MG TABLET PO SCH (08:56)
[2018-02-24] MEDS: CYANOCOBALAMIN (VITAMIN B-12) 1,000 MCG TABLET PO SCH (09:07)
[2018-02-24] MEDS: MUPIROCIN CALCIUM 2% CREAM 15 GM TP SCH ×2 (09:07→16:42)
[2018-02-24] MEDS: LURASIDONE HCL 40 MG TABLET PO SCH ×2 (09:07→16:47)
[2018-02-24] MEDS: AMITRIPTYLINE HCL 50 MG TABLET PO SCH (09:10)
[2018-02-24] MEDS: BENZTROPINE MESYLATE 1 MG TABLET PO SCH ×2 (09:10→16:47)
[2018-02-24] MEDS: MORPHINE SULFATE SR 15 MG TABLET PO SCH ×2 (09:11→22:09)
[2018-02-24] MEDS: LACTOBACILLUS ACIDOPHILUS 250 MG TAB PO SCH ×2 (09:11→16:49)
[2018-02-24] MEDS: MAGNESIUM OXIDE 400 MG TABLET PO SCH ×2 (09:11→16:49)
[2018-02-24] MEDS: ENOXAPARIN SODIUM INJ 40 MG/0.4 ML DISP.SYRIN SUBCUT SCH (09:11)
[2018-02-24] MEDS: MIDODRINE HCL 5 MG TABLET PO SCH ×3 (09:11→16:49)
[2018-02-24] MEDS ORDERED: ONDANSETRON HCL INJ/PF 4 MG/2 ML SDV IV PRN (10:30)
[2018-02-24] MEDS ORDERED: ONDANSETRON 4 MG TAB.RAPDIS PO PRN (10:31)
[2018-02-24 10:40] LABS: VANCOMYCIN,TROUGH 14.2 ug/mL (5.0-20.0)
--- NOTE | 2018-02-24 10:42 | PDOC PROGRESS REPORT ---
Subjective Progress Note for:: 02/24/18 Subjective:: 47-year-old female with past medical history of Bipolar disorder Chronic pain Migraines Hypertension Hyperlipidemia Arthritis Gastroesophageal reflux disease Type 2 diabetes-in the past. No longer active. The patient presented to the hospital on February 18 with weakness and shortness of breath with exertion progressively getting worse. She also reported fevers chills and worsening lower extremity edema. She reported a 20 pound weight gain in the past week. Upon presentation the patient was found to be febrile with a temperature of 100.8 and hypoxia 86% on room air. She was also noted to have leukocytosis and an elevated BNP. Chest x-ray showed multifocal pneumonia. The patient was started on BiPAP and diagnosed with acute congestive heart failure exacerbation and multifocal pneumonia and started on Cefepime as well as continued on IV Lasix. Echo showed normal LVEF and diastolic function with no significant valvular abnormalities. RV and RA mildly dilated. Anasarca could possibly be due to liver disease vs RV dysfunction in the setting of severe b/l pneumonia. Her BP runs chronically low she reports. Urine culture positive for MRSA. Day 3 Vancomycin (She reports a Bactrim allergy ). She has orthostatic hypotension and low am cortisol, I think she would benefit from Fludrocortisone. Feels somewhat better. Shortness of breath is improving. She is able to take deep breaths. She reports some nausea early in the morning for which she usually takes Zofran at home. No diarrhea. Appetite is fair. Reason For Visit: RESPIRATORY DISTRESS Physical Exam Vital Signs: Temp Pulse Resp BP Pulse Ox 97.9 F 78 16 79/51 L 100 02/24/18 07:13 02/24/18 07:16 02/24/18 07:13 02/24/18 07:16 02/24/18 07:13 Pulse Oximeter Continuous Start: 02/18/18 11: 06 Freq: RTQ4 Status: Complete Document 02/18/18 16:00 LDA (Rec: 02/18/18 17:12 LDA [email or web address]) Pulse Oximetry Assessment Equipment Usage Equipment Discontinued Continuous SpO2 Machine # 00 Additional RT Notes Other pt. on spo2 and heart monitor Intake & Output 02/23/18 02/24/18 02/25/18 06:59 06:59 06:59 Intake Total 760 1080 Output Total 1350 500 Balance -590 580 Weight 51.2 kg 51.6 kg General appearance: PRESENT: thin Head exam: PRESENT: normocephalic Eye exam: PRESENT: PERRLA Ear exam: PRESENT: normal external ear exam Neck exam: ABSENT: tracheal deviation Respiratory exam: PRESENT: rhonchi, symmetrical, unlabored Cardiovascular exam: PRESENT: RRR GI/Abdominal exam: PRESENT: normal bowel sounds, soft. ABSENT: tenderness Rectal exam: PRESENT: deferred Extremities exam: ABSENT: calf tenderness, pedal edema Neurological exam: PRESENT: alert, awake, oriented to person, oriented to place , oriented to time, oriented to situation Psychiatric exam: PRESENT: normal mood Results Laboratory Results: 02/24/18 05:14 02/24/18 05:14 02/24/18 02/24/18 05:14 05:14 WBC 7.4 RBC 2.75 L Hgb 8.9 L Hct 27.2 L MCV 99 H MCH 32.3 MCHC 32.7 RDW 14.7 H Plt Count 299 Seg Neutrophils % Not Reportable Lymphocytes % Not Reportable Monocytes % Not Reportable Eosinophils % Not Reportable Basophils % Not Reportable Absolute Neutrophils Not Reportable Absolute Lymphocytes Not Reportable Absolute Monocytes Not Reportable Absolute Eosinophils Not Reportable Absolute Basophils Not Reportable Sodium 140.9 Potassium 4.4 Chloride 104 Carbon Dioxide 30 Anion Gap 7 BUN 10 Creatinine 0.48 L Est GFR ( Amer) > 60 Est GFR (Non-Af Amer) > 60 Glucose 81 Calcium 7.9 L Phosphorus 4.0 Magnesium 2.3 Total Bilirubin < 0.1 L AST 19 ALT 21 Alkaline Phosphatase 132 H Total Protein 4.7 L Albumin 2.3 L 02/18/18 02/23/18 11:36 04:44 Troponin I 0.063 NT-Pro-B Natriuret Pep 799 H Impressions: Chest CT 02/20/18 00:00 IMPRESSION: Diffuse alveolar and interstitial infiltrates worrisome for edema. Small bilateral pleural effusions. Pneumonia could not be excluded. Mild mediastinal adenopathy Fatty liver, gastric bypass with inflammatory changes along the efferent limb, post cholecystectomy change Abdomen Ultrasound 02/23/18 00:00 IMPRESSION: FATTY LIVER. STATUS POST CHOLECYSTECTOMY. PANCREAS PARTIALLY OR COMPLETELY OBSCURED. OTHERWISE NORMAL RIGHT UPPER QUADRANT ULTRASOUND. Chest X-Ray 02/23/18 00:00 IMPRESSION: NO ACUTE RADIOGRAPHIC FINDING IN THE CHEST. NO SIGNIFICANT CHANGE FROM PRIOR STUDY. Assessment & Plan - Diagnosis (1) Acute respiratory failure with hypoxia Is this a current diagnosis for this admission?: Yes Plan: Due to pneumonia. Much improved. (2) Acute congestive heart failure Qualifiers: Heart failure type: unspecified Qualified Code(s): I50.9 - Heart failure, unspecified Is this a current diagnosis for this admission?: Yes Plan: Suspected acute right sided CHF- Continue Torsemide (3) Multifocal pneumonia Is this a current diagnosis for this admission?: Yes Plan: Day 7 of Levaquin. No sputum culture available. (4) Diabetes 1.5, managed as type 2 Is this a current diagnosis for this admission?: Yes Plan: Discontinue insulin sliding scale, diabetes resolved after her gastric bypass surgery 2 years ago. (5) Hypothyroidism Is this a current diagnosis for this admission?: Yes Plan: Continue Synthroid (6) Anemia of chronic disease Is this a current diagnosis for this admission?: Yes Plan: Stable (7) Chronic pain Is this a current diagnosis for this admission?: Yes Plan: Continue Amitriptyline and Gabapentin. (8) UTI (urinary tract infection) Qualifiers: Urinary tract infection type: acute cystitis Is this a current diagnosis for this admission?: Yes Plan: Urine culture positive for Proteus and MRSA- Day 3 of 7 of Vancomycin (9) Adrenal insufficiency Is this a current diagnosis for this admission?: Yes Plan: Midodrine and Fludrocortisone - Time Time Spent with patient: 25-34 minutes - Inpatient Certification Medical Necessity: Need Close Monitoring Due to Risk of Patient Decompensation, Need for IV Antibiotics
[2018-02-24] MEDS: FLUDROCORTISONE ACETATE 0.1 MG TABLET PO SCH (13:03)
[2018-02-24] MEDS: LORAZEPAM 1 MG TABLET PO PRN (14:21)
--- NOTE | 2018-02-24 16:22 | Progress Note ---
Provider Note Provider Note: ID Consult Note Asked to review patient's chart by Pharmacy, specifically with regard to vancomycin for MRSA in a urine culture. Ms. Sheikh is a woman with PMH including bipolar d/o, GERD, and a prior diagnosis of diabetes that is no longer active. She p/w fever, increased SOB and lower extremity edema on 02/18/18. She was diagnosed with multifocal pneumonia and acute CHF exacerbation. Her blood cultures on admission were negative. She was treated with empiric Levaquin and a dose of vancomycin in the ED and then resumed vancomycin on 02/22 once urine culture returned positive for >100k CFU MRSA and 50-60k CFU Proteus mirabilis. U /A showed 8 WBC/hpf and moderate leukocyte esterase. Impression/Recommendations Asymptomatic bacteriuria versus uncomplicated UTI - It is difficult to determine based on chart review whether the patient had symptoms typical of a UTI (dysuria, urgency, suprapubic pain or CVA tenderness) ; she had a fever, but this could also be potentially attributed to the diagnosis of pneumonia that she has been given. If she does not have irritative urinary symptoms compatible with a UTI, then the urine culture growth would most likely represent contamination or colonization and would not be in need of antibiotic therapy, unless the patient is or about to undergo an invasive urologic procedure. - If the patient has signs/symptoms consistent with a UTI and no complicating factors (no anatomical or physiological factors that make her urinary tract abnormal, not actively a diabetic) then treatment duration of 3 days should be sufficient with vancomycin. Although the vancomycin SARAH in the urine was reported as 2, urinary tract infections tend to have lower inoculum sizes, and the patient has already demonstrated some clinical improvement in resolution of fever and normalization of WBC count. She does not appear to be failing therapy. Curtis Kelley MD, [facility] pager [phone]
[2018-02-24] MEDS: TOPIRAMATE 25 MG TABLET PO SCH (16:49)
[2018-02-24] MEDS: LEVOFLOXACIN 750 MG TABLET PO SCH (22:09)
[2018-02-25] MEDS: VANCOMYCIN HCL 750 MG in DEXTROSE 5%-WATER 250 ML IV SCH ×3 (02:03→16:25)
[2018-02-25] MEDS: CALCIUM CARBONATE 500 MG TAB.CHEW PO PRN ×4 (05:05→22:23)
[2018-02-25] MEDS: LANSOPRAZOLE 30 MG TAB.RAP.DR PO SCH (05:05)
[2018-02-25] MEDS: GABAPENTIN 300 MG CAPSULE PO SCH ×3 (05:05→22:23)
[2018-02-25] MEDS: OXYCODONE-ACETAMINOPHEN 5-325 MG TABLET PO PRN ×3 (05:05→22:23)
[2018-02-25] MEDS: LEVOTHYROXINE SODIUM 0.088 MG TABLET PO SCH (05:05)
[2018-02-25] MEDS: MUPIROCIN CALCIUM 2% CREAM 15 GM TP SCH ×2 (08:45→16:21)
[2018-02-25] MEDS: BENZTROPINE MESYLATE 1 MG TABLET PO SCH ×2 (08:52→16:21)
[2018-02-25] MEDS: LURASIDONE HCL 40 MG TABLET PO SCH ×2 (08:52→16:24)
[2018-02-25] MEDS: AMITRIPTYLINE HCL 50 MG TABLET PO SCH (08:52)
[2018-02-25] MEDS: FLUDROCORTISONE ACETATE 0.1 MG TABLET PO SCH (08:52)
[2018-02-25] MEDS: CYANOCOBALAMIN (VITAMIN B-12) 1,000 MCG TABLET PO SCH (08:52)
[2018-02-25] MEDS: ENOXAPARIN SODIUM INJ 40 MG/0.4 ML DISP.SYRIN SUBCUT SCH (08:52)
[2018-02-25] MEDS: TORSEMIDE 20 MG TABLET PO SCH (08:53)
[2018-02-25] MEDS: LACTOBACILLUS ACIDOPHILUS 250 MG TAB PO SCH ×2 (08:53→16:24)
[2018-02-25] MEDS: MIDODRINE HCL 5 MG TABLET PO SCH ×3 (08:53→16:25)
[2018-02-25] MEDS: MAGNESIUM OXIDE 400 MG TABLET PO SCH ×2 (08:53→16:25)
[2018-02-25] MEDS: MORPHINE SULFATE SR 15 MG TABLET PO SCH ×2 (08:53→22:23)
--- NOTE | 2018-02-25 15:11 | PDOC PROGRESS REPORT ---
Subjective Progress Note for:: 02/25/18 Subjective:: 47-year-old female with past medical history of Bipolar disorder Chronic pain Migraines Hypertension Hyperlipidemia Arthritis Gastroesophageal reflux disease Type 2 diabetes-in the past. No longer active. The patient presented to the hospital on February 18 with weakness and shortness of breath with exertion progressively getting worse. She also reported fevers chills and worsening lower extremity edema. She reported a 20 pound weight gain in the past week. Upon presentation the patient was found to be febrile with a temperature of 100.8 and hypoxia 86% on room air. She was also noted to have leukocytosis and an elevated BNP. Chest x-ray showed multifocal pneumonia. The patient was started on BiPAP and diagnosed with acute congestive heart failure exacerbation and multifocal pneumonia and started on Cefepime as well as continued on IV Lasix. Echo showed normal LVEF and diastolic function with no significant valvular abnormalities. RV and RA mildly dilated. One pack year smoking history, does not smoke currently. She has been exposed to second hand smoke chronically for many years. Anasarca could possibly be due to liver disease vs RV dysfunction in the setting of severe b/l pneumonia. Her BP runs chronically low she reports. Urine culture positive for MRSA. Day 4 of Vancomycin (She reports a Bactrim allergy). She was found to have orthostatic hypotension and low am cortisol, and was started on Fludrocortisone on 02/24/18. Reason For Visit: RESPIRATORY DISTRESS Physical Exam Vital Signs: Temp Pulse Resp BP Pulse Ox 97.4 F 62 20 96/52 L 100 02/25/18 11:44 02/25/18 11:44 02/25/18 11:44 02/25/18 11:44 02/25/18 11:44 Pulse Oximeter Continuous Start: 02/18/18 11: 06 Freq: RTQ4 Status: Complete Document 02/18/18 16:00 LDA (Rec: 02/18/18 17:12 LDA [email or web address]) Pulse Oximetry Assessment Equipment Usage Equipment Discontinued Continuous SpO2 Machine # 00 Additional RT Notes Other pt. on spo2 and heart monitor Intake & Output 02/24/18 02/25/18 02/26/18 06:59 06:59 06:59 Intake Total 1080 1187 Output Total 500 Balance 580 1187 Weight 51.6 kg 51.4 kg General appearance: PRESENT: no acute distress Head exam: PRESENT: normocephalic Eye exam: PRESENT: PERRLA. ABSENT: scleral icterus Ear exam: PRESENT: normal external ear exam Mouth exam: PRESENT: moist Neck exam: ABSENT: tenderness Respiratory exam: PRESENT: rhonchi, symmetrical, unlabored Cardiovascular exam: PRESENT: RRR GI/Abdominal exam: PRESENT: normal bowel sounds, soft. ABSENT: tenderness Rectal exam: PRESENT: deferred Extremities exam: ABSENT: calf tenderness, pedal edema Neurological exam: PRESENT: alert, awake, oriented to person, oriented to place , oriented to time, oriented to situation Psychiatric exam: PRESENT: appropriate affect, normal mood Skin exam: ABSENT: petechiae Results Laboratory Results: 02/24/18 05:14 02/24/18 05:14 02/20/18 10:03 Blood Blood Culture - Final NO GROWTH IN 5 DAYS 02/20/18 08:55 Blood Blood Culture - Final NO GROWTH IN 5 DAYS 02/18/18 02/23/18 11:36 04:44 Troponin I 0.063 NT-Pro-B Natriuret Pep 799 H Impressions: Chest CT 02/20/18 00:00 IMPRESSION: Diffuse alveolar and interstitial infiltrates worrisome for edema. Small bilateral pleural effusions. Pneumonia could not be excluded. Mild mediastinal adenopathy Fatty liver, gastric bypass with inflammatory changes along the efferent limb, post cholecystectomy change Abdomen Ultrasound 02/23/18 00:00 IMPRESSION: FATTY LIVER. STATUS POST CHOLECYSTECTOMY. PANCREAS PARTIALLY OR COMPLETELY OBSCURED. OTHERWISE NORMAL RIGHT UPPER QUADRANT ULTRASOUND. Chest X-Ray 02/23/18 00:00 IMPRESSION: NO ACUTE RADIOGRAPHIC FINDING IN THE CHEST. NO SIGNIFICANT CHANGE FROM PRIOR STUDY. Assessment & Plan - Diagnosis (1) Acute respiratory failure with hypoxia Is this a current diagnosis for this admission?: Yes Plan: Due to pneumonia and R CHF exacerbation. Much improved. (2) Acute congestive heart failure Qualifiers: Heart failure type: right-sided Qualified Code(s): I50.811 - Acute right heart failure Is this a current diagnosis for this admission?: Yes Plan: Suspected acute right sided CHF exacerbation- Continue Torsemide. She is doing much better (3) Multifocal pneumonia Is this a current diagnosis for this admission?: Yes Plan: Completed a course of antibiotics. (4) Diabetes 1.5, managed as type 2 Is this a current diagnosis for this admission?: Yes Plan: Diabetes resolved after her gastric bypass surgery 2 years ago. (5) Hypothyroidism Is this a current diagnosis for this admission?: Yes Plan: Continue Synthroid (6) Anemia of chronic disease Is this a current diagnosis for this admission?: Yes Plan: Stable (7) Chronic pain Is this a current diagnosis for this admission?: Yes Plan: Continue Amitriptyline and Gabapentin. (8) UTI (urinary tract infection) Qualifiers: Urinary tract infection type: acute cystitis Is this a current diagnosis for this admission?: Yes Plan: Urine culture positive for Proteus and MRSA- Day 4 of 7 of Vancomycin. Completed a course of antibiotics for Proteus (9) Adrenal insufficiency Is this a current diagnosis for this admission?: Yes Plan: Midodrine and Fludrocortisone - Time Time Spent with patient: 35 or more minutes
[2018-02-25] MEDS: TOPIRAMATE 25 MG TABLET PO SCH (16:25)
[2018-02-25] MEDS: LORAZEPAM 1 MG TABLET PO PRN (16:25)
[2018-02-25] MEDS: ACETAMINOPHEN 325 MG TABLET PO PRN (19:56)
[2018-02-26] MEDS: VANCOMYCIN HCL 750 MG in DEXTROSE 5%-WATER 250 ML IV SCH ×3 (02:23→17:37)
[2018-02-26] MEDS: LEVOTHYROXINE SODIUM 0.088 MG TABLET PO SCH (05:09)
[2018-02-26] MEDS: LORAZEPAM 1 MG TABLET PO PRN (05:09)
[2018-02-26] MEDS: GABAPENTIN 300 MG CAPSULE PO SCH ×3 (05:09→22:06)
[2018-02-26] MEDS: LANSOPRAZOLE 30 MG TAB.RAP.DR PO SCH (05:09)
[2018-02-26] MEDS: CALCIUM CARBONATE 500 MG TAB.CHEW PO PRN ×4 (05:10→22:48)
[2018-02-26 06:18] LABS: ANION GAP 7 (5-19); BLOOD UREA NITROGEN 15 mg/dL (7-20); CALCIUM 8.5 mg/dL (8.4-10.2); CARBON DIOXIDE 32 mmol/L (22-30); CHLORIDE 103 mmol/L (98-107); CHOLESTEROL 132.23 mg/dL (0-200); GLUCOSE 73 mg/dL (75-110); PHOSPHORUS 4.9 mg/dL (2.5-4.5); SODIUM 141.7 mmol/L (137-145); TRIGLYCERIDES 109 mg/dL (<150)
[2018-02-26 06:29] LABS: DIRECT LDL 55 mg/dL (<100)
[2018-02-26] MEDS: ENOXAPARIN SODIUM INJ 40 MG/0.4 ML DISP.SYRIN SUBCUT SCH (09:42)
[2018-02-26] MEDS: CYANOCOBALAMIN (VITAMIN B-12) 1,000 MCG TABLET PO SCH (09:43)
[2018-02-26] MEDS: LACTOBACILLUS ACIDOPHILUS 250 MG TAB PO SCH ×2 (09:43→17:38)
[2018-02-26] MEDS: LURASIDONE HCL 40 MG TABLET PO SCH ×2 (09:44→17:39)
[2018-02-26] MEDS: BENZTROPINE MESYLATE 1 MG TABLET PO SCH ×2 (09:44→17:39)
[2018-02-26] MEDS: MAGNESIUM OXIDE 400 MG TABLET PO SCH ×2 (09:44→17:39)
[2018-02-26] MEDS: MORPHINE SULFATE SR 15 MG TABLET PO SCH (09:45)
[2018-02-26] MEDS: AMITRIPTYLINE HCL 50 MG TABLET PO SCH (09:45)
[2018-02-26] MEDS: FLUDROCORTISONE ACETATE 0.1 MG TABLET PO SCH (09:45)
[2018-02-26] MEDS: MIDODRINE HCL 5 MG TABLET PO SCH ×3 (09:46→17:39)
[2018-02-26] MEDS: MUPIROCIN CALCIUM 2% CREAM 15 GM TP SCH ×2 (09:46→17:40)
[2018-02-26] MEDS: TORSEMIDE 20 MG TABLET PO SCH (09:46)
--- NOTE | 2018-02-26 12:48 | PDOC PROGRESS REPORT ---
Subjective Progress Note for:: 02/26/18 Subjective:: 47-year-old female with past medical history of Bipolar disorder Chronic pain Migraines Hypertension Hyperlipidemia Arthritis Gastroesophageal reflux disease Type 2 diabetes-in the past. No longer active. The patient presented to the hospital on February 18 with weakness and shortness of breath with exertion progressively getting worse. She also reported fevers chills and worsening lower extremity edema. She reported a 20 pound weight gain in the past week. Upon presentation the patient was found to be febrile with a temperature of 100.8 and hypoxia 86% on room air. She was also noted to have leukocytosis and an elevated BNP. Chest x-ray showed multifocal pneumonia. The patient was started on BiPAP and diagnosed with acute congestive heart failure exacerbation and multifocal pneumonia and started on Cefepime as well as continued on IV Lasix. Echo showed normal LVEF and diastolic function with no significant valvular abnormalities. RV and RA mildly dilated. One pack year smoking history, does not smoke currently. She has been exposed to second hand smoke chronically for many years. Anasarca could possibly be due to liver disease vs RV dysfunction in the setting of severe b/l pneumonia. Her BP runs chronically low she reports. Urine culture positive for MRSA. Day 4 of Vancomycin (She reports a Bactrim allergy). She was found to have orthostatic hypotension and low am cortisol, and was started on Fludrocortisone on 02/24/18. Feels better, no complaints. Will request Cardiology consult for help with management of R sided CHF and possible adrenal insufficiency. Reason For Visit: RESPIRATORY DISTRESS Physical Exam Vital Signs: Temp Pulse Resp BP Pulse Ox 98.9 F 86 16 93/54 L 98 02/26/18 11:54 02/26/18 11:54 02/26/18 11:54 02/26/18 11:54 02/26/18 11:54 Pulse Oximeter Continuous Start: 02/18/18 11: 06 Freq: RTQ4 Status: Complete Document 02/18/18 16:00 LDA (Rec: 02/18/18 17:12 LDA [email or web address]) Pulse Oximetry Assessment Equipment Usage Equipment Discontinued Continuous SpO2 Machine # 00 Additional RT Notes Other pt. on spo2 and heart monitor Intake & Output 02/25/18 02/26/18 02/27/18 06:59 06:59 06:59 Intake Total 1187 1922 Balance 1187 1922 Weight 51.4 kg 54.4 kg General appearance: PRESENT: no acute distress Head exam: PRESENT: normocephalic Eye exam: ABSENT: scleral icterus Ear exam: PRESENT: normal external ear exam Mouth exam: PRESENT: moist Neck exam: ABSENT: tenderness Respiratory exam: PRESENT: clear to auscultation rona, unlabored. ABSENT: wheezes Cardiovascular exam: PRESENT: RRR GI/Abdominal exam: PRESENT: normal bowel sounds Rectal exam: PRESENT: deferred Extremities exam: ABSENT: pedal edema Neurological exam: PRESENT: alert, awake, oriented to person, oriented to place , oriented to time Psychiatric exam: PRESENT: appropriate affect Skin exam: ABSENT: petechiae, skin tears Results Laboratory Results: 02/24/18 05:14 02/26/18 05:20 02/26/18 05:20 Sodium 141.7 Potassium 4.0 Chloride 103 Carbon Dioxide 32 H Anion Gap 7 BUN 15 Creatinine 0.56 Est GFR ( Amer) > 60 Est GFR (Non-Af Amer) > 60 Glucose 73 L Calcium 8.5 Phosphorus 4.9 H Magnesium 2.2 Triglycerides 109 Cholesterol 132.23 LDL Cholesterol Direct 55 VLDL Cholesterol 22.0 HDL Cholesterol 54 02/20/18 10:03 Blood Blood Culture - Final NO GROWTH IN 5 DAYS 02/20/18 08:55 Blood Blood Culture - Final NO GROWTH IN 5 DAYS 02/18/18 02/23/18 02/26/18 11:36 04:44 05:20 Troponin I 0.063 NT-Pro-B Natriuret Pep 799 H 387 H Impressions: Chest CT 02/20/18 00:00 IMPRESSION: Diffuse alveolar and interstitial infiltrates worrisome for edema. Small bilateral pleural effusions. Pneumonia could not be excluded. Mild mediastinal adenopathy Fatty liver, gastric bypass with inflammatory changes along the efferent limb, post cholecystectomy change Abdomen Ultrasound 02/23/18 00:00 IMPRESSION: FATTY LIVER. STATUS POST CHOLECYSTECTOMY. PANCREAS PARTIALLY OR COMPLETELY OBSCURED. OTHERWISE NORMAL RIGHT UPPER QUADRANT ULTRASOUND. Chest X-Ray 02/23/18 00:00 IMPRESSION: NO ACUTE RADIOGRAPHIC FINDING IN THE CHEST. NO SIGNIFICANT CHANGE FROM PRIOR STUDY. Assessment & Plan - Diagnosis (1) Acute respiratory failure with hypoxia Is this a current diagnosis for this admission?: Yes Plan: Due to pneumonia and R CHF exacerbation- improved. (2) Acute congestive heart failure Qualifiers: Heart failure type: right-sided Qualified Code(s): I50.811 - Acute right heart failure Is this a current diagnosis for this admission?: Yes Plan: Suspected acute right sided CHF exacerbation- Continue Torsemide. cardiology consultation (3) Multifocal pneumonia Is this a current diagnosis for this admission?: Yes Plan: Completed a course of antibiotics. (4) Diabetes 1.5, managed as type 2 Is this a current diagnosis for this admission?: Yes Plan: Diabetes resolved after her gastric bypass surgery 2 years ago. (5) Hypothyroidism Is this a current diagnosis for this admission?: Yes Plan: Continue Synthroid, TSH ok (6) Anemia of chronic disease Is this a current diagnosis for this admission?: Yes Plan: Stable (7) Chronic pain Is this a current diagnosis for this admission?: Yes Plan: Continue Amitriptyline and Gabapentin. (8) UTI (urinary tract infection) Qualifiers: Urinary tract infection type: acute cystitis Is this a current diagnosis for this admission?: Yes Plan: Urine culture positive for Proteus and MRSA- Day 5 of 7 of Vancomycin. Completed a course of antibiotics for Proteus (9) Adrenal insufficiency Is this a current diagnosis for this admission?: Yes Plan: Midodrine and Fludrocortisone - Time Time Spent with patient: 35 or more minutes
[2018-02-26] MEDS: OXYCODONE-ACETAMINOPHEN 5-325 MG TABLET PO PRN ×2 (14:28→22:45)
[2018-02-26] MEDS: TOPIRAMATE 25 MG TABLET PO SCH (17:38)
[2018-02-26] MEDS ORDERED: MORPHINE SULFATE SR 15 MG TABLET PO ONE (22:15)
[2018-02-27] MEDS: VANCOMYCIN HCL 750 MG in DEXTROSE 5%-WATER 250 ML IV SCH ×3 (02:46→17:21)
[2018-02-27] MEDS: GABAPENTIN 300 MG CAPSULE PO SCH ×3 (05:13→21:24)
[2018-02-27] MEDS: LEVOTHYROXINE SODIUM 0.088 MG TABLET PO SCH (05:14)
[2018-02-27] MEDS: LANSOPRAZOLE 30 MG TAB.RAP.DR PO SCH (05:14)
[2018-02-27] MEDS: LORAZEPAM 1 MG TABLET PO PRN ×2 (05:15→18:56)
[2018-02-27] MEDS: CALCIUM CARBONATE 500 MG TAB.CHEW PO PRN ×4 (07:34→23:16)
[2018-02-27] MEDS: OXYCODONE-ACETAMINOPHEN 5-325 MG TABLET PO PRN ×2 (07:35→16:10)
[2018-02-27] MEDS: LURASIDONE HCL 40 MG TABLET PO SCH ×2 (07:35→16:11)
[2018-02-27] MEDS: CYANOCOBALAMIN (VITAMIN B-12) 1,000 MCG TABLET PO SCH (07:35)
--- NOTE | 2018-02-27 09:12 | EKG REPORT ---
SEVERITY:- ABNORMAL ECG - SINUS RHYTHM BORDERLINE LEFT AXIS DEVIATION ABNRM R PROG, CONSIDER ASMI OR LEAD PLACEMENT : Confirmed by: Benitez Gabriel 27-Feb-2018 09:12:26
[2018-02-27] MEDS: ENOXAPARIN SODIUM INJ 40 MG/0.4 ML DISP.SYRIN SUBCUT SCH (10:02)
[2018-02-27] MEDS: LACTOBACILLUS ACIDOPHILUS 250 MG TAB PO SCH ×2 (10:03→17:19)
[2018-02-27] MEDS: TORSEMIDE 20 MG TABLET PO SCH (10:03)
[2018-02-27] MEDS: BENZTROPINE MESYLATE 1 MG TABLET PO SCH ×2 (10:03→17:20)
[2018-02-27] MEDS: FLUDROCORTISONE ACETATE 0.1 MG TABLET PO SCH (10:03)
[2018-02-27] MEDS: MORPHINE SULFATE SR 15 MG TABLET PO SCH ×2 (10:04→21:24)
[2018-02-27] MEDS: MAGNESIUM OXIDE 400 MG TABLET PO SCH ×2 (10:04→17:20)
[2018-02-27] MEDS: MIDODRINE HCL 5 MG TABLET PO SCH ×3 (10:04→17:21)
[2018-02-27] MEDS: MUPIROCIN CALCIUM 2% CREAM 15 GM TP SCH ×2 (10:06→17:22)
[2018-02-27] MEDS: AMITRIPTYLINE HCL 50 MG TABLET PO SCH (10:32)
--- NOTE | 2018-02-27 10:51 | PDOC PROGRESS REPORT ---
Subjective Progress Note for:: 02/27/18 Subjective:: 47-year-old female with past medical history of Bipolar disorder Chronic pain Migraines Hypertension Hyperlipidemia Arthritis Gastroesophageal reflux disease Type 2 diabetes-in the past. No longer active. The patient presented to the hospital on February 18 with weakness and shortness of breath with exertion progressively getting worse. She also reported fevers chills and worsening lower extremity edema. She reported a 20 pound weight gain in the past week. Upon presentation the patient was found to be febrile with a temperature of 100.8 and hypoxia 86% on room air. She was also noted to have leukocytosis and an elevated BNP. Chest x-ray showed multifocal pneumonia. The patient was started on BiPAP and diagnosed with acute congestive heart failure exacerbation and multifocal pneumonia and started on Cefepime as well as continued on IV Lasix. Echo showed normal LVEF and diastolic function with no significant valvular abnormalities. RV and RA mildly dilated. One pack year smoking history, does not smoke currently. She has been exposed to second hand smoke chronically for many years. Anasarca could possibly be due to liver disease vs RV dysfunction in the setting of severe b/l pneumonia. Her BP runs chronically low she reports. Urine culture positive for MRSA. Day 4 of Vancomycin (She reports a Bactrim allergy). She has orthostatic hypotension and low am cortisol, and was started on Fludrocortisone on 02/24/18. Feels better, no complaints. Will request Cardiology consult for help with management of R sided CHF and possible adrenal insufficiency. Repeat UA today. Last dose of Vancomycin tomorrow morning after which the plan is to discharge home. Reason For Visit: RESPIRATORY DISTRESS Physical Exam Vital Signs: Temp Pulse Resp BP Pulse Ox 98.7 F 70 16 87/57 L 100 02/27/18 03:33 02/27/18 07:52 02/27/18 07:52 02/27/18 07:52 02/27/18 07:52 Pulse Oximeter Continuous Start: 02/18/18 11: 06 Freq: RTQ4 Status: Complete Document 02/18/18 16:00 LDA (Rec: 02/18/18 17:12 LDA [email or web address]) Pulse Oximetry Assessment Equipment Usage Equipment Discontinued Continuous SpO2 Machine # 00 Additional RT Notes Other pt. on spo2 and heart monitor Intake & Output 02/26/18 02/27/18 02/28/18 06:59 06:59 06:59 Intake Total 1921 2850 Balance 1921 2850 Weight 54.4 kg 55.7 kg General appearance: PRESENT: no acute distress Head exam: PRESENT: normocephalic Eye exam: ABSENT: scleral icterus Ear exam: PRESENT: normal external ear exam Mouth exam: PRESENT: moist Neck exam: ABSENT: tracheal deviation Respiratory exam: PRESENT: symmetrical, unlabored Cardiovascular exam: PRESENT: RRR GI/Abdominal exam: PRESENT: normal bowel sounds, soft. ABSENT: tenderness Rectal exam: PRESENT: deferred Extremities exam: PRESENT: pedal edema. ABSENT: calf tenderness Neurological exam: PRESENT: alert, awake, oriented to person, oriented to place , oriented to situation Psychiatric exam: PRESENT: appropriate affect Skin exam: ABSENT: petechiae Results Laboratory Results: 02/24/18 05:14 02/26/18 05:20 02/18/18 02/23/18 02/26/18 11:36 04:44 05:20 Troponin I 0.063 NT-Pro-B Natriuret Pep 799 H 387 H Impressions: Chest CT 02/20/18 00:00 IMPRESSION: Diffuse alveolar and interstitial infiltrates worrisome for edema. Small bilateral pleural effusions. Pneumonia could not be excluded. Mild mediastinal adenopathy Fatty liver, gastric bypass with inflammatory changes along the efferent limb, post cholecystectomy change Abdomen Ultrasound 02/23/18 00:00 IMPRESSION: FATTY LIVER. STATUS POST CHOLECYSTECTOMY. PANCREAS PARTIALLY OR COMPLETELY OBSCURED. OTHERWISE NORMAL RIGHT UPPER QUADRANT ULTRASOUND. Chest X-Ray 02/23/18 00:00 IMPRESSION: NO ACUTE RADIOGRAPHIC FINDING IN THE CHEST. NO SIGNIFICANT CHANGE FROM PRIOR STUDY. Assessment & Plan - Diagnosis (1) Acute respiratory failure with hypoxia Is this a current diagnosis for this admission?: Yes Plan: Due to pneumonia and R CHF exacerbation- improved. (2) Acute congestive heart failure Qualifiers: Heart failure type: right-sided Qualified Code(s): I50.811 - Acute right heart failure Is this a current diagnosis for this admission?: Yes Plan: Suspected acute right sided CHF exacerbation- Continue Torsemide. Request Cardiology consultation (3) Multifocal pneumonia Is this a current diagnosis for this admission?: Yes Plan: Completed a course of antibiotics. (4) Diabetes 1.5, managed as type 2 Is this a current diagnosis for this admission?: Yes Plan: Diabetes resolved after her gastric bypass surgery 2 years ago. (5) Hypothyroidism Is this a current diagnosis for this admission?: Yes Plan: Continue Synthroid, TSH within normal limits (6) Anemia of chronic disease Is this a current diagnosis for this admission?: Yes Plan: Stable (7) Chronic pain Is this a current diagnosis for this admission?: Yes (8) UTI (urinary tract infection) Qualifiers: Urinary tract infection type: acute cystitis Is this a current diagnosis for this admission?: Yes Plan: Urine culture positive for Proteus and MRSA- Day 6 of 7 of Vancomycin. Completed a course of antibiotics for Proteus (9) Adrenal insufficiency Is this a current diagnosis for this admission?: Yes Plan: Midodrine and Fludrocortisone - Time Time Spent with patient: 25-34 minutes
[2018-02-27 11:27] LABS: APPEARANCE,URINE CLEAR; BILIRUBIN,URINE NEGATIVE (NEGATIVE); COLOR,URINE YELLOW; GLUCOSE, URINE NEGATIVE (NEGATIVE); KETONES,URINE NEGATIVE (NEGATIVE); LEUKOCYTE ESTERASE,URINE NEGATIVE (NEGATIVE); NITRITE,URINE NEGATIVE (NEGATIVE); PROTEIN,URINE NEGATIVE (NEGATIVE); URINE SPECIFIC GRAVITY 1.006; UROBILINOGEN,URINE NEGATIVE mg/dL (<2.0)
[2018-02-27] MEDS: TOPIRAMATE 25 MG TABLET PO SCH (17:19)
--- NOTE | 2018-02-27 20:47 | Progress Note ---
Provider Note Provider Note: Patient was seen yesterday and today. Patient's previous evaluations were reviewed. Patient previous CT scans, previous chest x-ray and echocardiogram etc. were reviewed. It seems patient had significant pneumonitis, bilateral last time which could have caused RV enlargement and RV failure. In addition patient also on fludrocortisone which can cause fluid retention. Patient however claims to be overall much improved since presentation and since her last admission. At this point recommend that patient be evaluated for any need for chronic oxygen therapy in view of RV failure. I will be happy to perform that as an outpatient with nocturnal oximetry. Will discuss this with hospitalist tomorrow.
[2018-02-28] MEDS: VANCOMYCIN HCL 750 MG in DEXTROSE 5%-WATER 250 ML IV SCH ×2 (01:15→10:27)
[2018-02-28] MEDS: CALCIUM CARBONATE 500 MG TAB.CHEW PO PRN ×2 (04:09→10:39)
[2018-02-28] MEDS: LEVOTHYROXINE SODIUM 0.088 MG TABLET PO SCH (05:39)
[2018-02-28] MEDS: GABAPENTIN 300 MG CAPSULE PO SCH ×2 (05:40→13:01)
[2018-02-28] MEDS: LANSOPRAZOLE 30 MG TAB.RAP.DR PO SCH (05:40)
[2018-02-28] MEDS: OXYCODONE-ACETAMINOPHEN 5-325 MG TABLET PO PRN (05:47)
[2018-02-28] MEDS: CYANOCOBALAMIN (VITAMIN B-12) 1,000 MCG TABLET PO SCH (08:38)
[2018-02-28] MEDS: LORAZEPAM 1 MG TABLET PO PRN (08:38)
[2018-02-28] MEDS: LURASIDONE HCL 40 MG TABLET PO SCH (08:38)
[2018-02-28] MEDS: AMITRIPTYLINE HCL 50 MG TABLET PO SCH (10:10)
[2018-02-28] MEDS: BENZTROPINE MESYLATE 1 MG TABLET PO SCH (10:11)
[2018-02-28] MEDS: LACTOBACILLUS ACIDOPHILUS 250 MG TAB PO SCH (10:12)
[2018-02-28] MEDS: ENOXAPARIN SODIUM INJ 40 MG/0.4 ML DISP.SYRIN SUBCUT SCH (10:15)
[2018-02-28] MEDS: MAGNESIUM OXIDE 400 MG TABLET PO SCH (10:16)
[2018-02-28] MEDS: MORPHINE SULFATE SR 15 MG TABLET PO SCH (10:17)
[2018-02-28] MEDS: TORSEMIDE 20 MG TABLET PO SCH (10:18)
[2018-02-28] MEDS: FLUDROCORTISONE ACETATE 0.1 MG TABLET PO SCH (10:23)
[2018-02-28] MEDS: MIDODRINE HCL 5 MG TABLET PO SCH ×2 (10:35→13:01)
[2018-02-28] MEDS: MUPIROCIN CALCIUM 2% CREAM 15 GM TP SCH (11:11)
[2018-02-28 11:40] VITALS: BP 110/50
--- NOTE | 2018-02-28 13:00 | PDOC DISCHARGE SUMMARY ---
General - Admit/Disc Date/PCP Admission Date/Primary Care Provider: 02/18/18 10:33 HILTON MORSE PA-C Discharge Date: 02/28/18 - Discharge Diagnosis (1) Acute congestive heart failure Is this a current diagnosis for this admission?: Yes (2) Acute respiratory failure with hypoxia Is this a current diagnosis for this admission?: Yes (3) Adrenal insufficiency Is this a current diagnosis for this admission?: Yes (4) Hypothyroidism Is this a current diagnosis for this admission?: Yes (5) Multifocal pneumonia Is this a current diagnosis for this admission?: Yes - Additional Information Resuscitation Status: Full Code Discharge Diet: Cardiac Discharge Activity: Activity As Tolerated, Balance Activity w/Rest, Weigh Daily Prescriptions: Carvedilol [Coreg 3.125 mg Tablet] 3.125 mg PO Q12 #60 tablet Fludrocortisone Acetate [Florinef 0.1 mg Tablet] 0.05 mg PO DAILY #30 tablet Furosemide [Lasix 20 mg Tablet] 20 mg PO QAM #30 tablet Lisinopril [Prinivil 2.5 mg Tablet] 2.5 mg PO DAILY #30 tablet Midodrine HCl [Proamatine 5 mg Tablet] 5 mg PO TID #90 tablet Home Medications: Amitriptyline HCl [Elavil 50 mg Tablet] 50 mg PO DAILY 02/18/18 Benztropine Mesylate 1 mg PO BID 02/18/18 Biotin 5,000 mcg PO WBRKFST 02/18/18 Cholecalciferol (Vitamin D3) [Vitamin D3 1000 Unit Tablet] 1,000 unit PO WBRKFST 02/18/18 Cyanocobalamin (Vitamin B-12) [Vitamin B-12 1000 mcg Tablet] 1,000 mcg PO WBRKFST 02/18/18 Esomeprazole Magnesium [Nexium] 40 mg PO DAILY 02/18/18 Gabapentin [Neurontin 300 mg Capsule] 300 mg PO Q8 02/18/18 Levothyroxine Sodium [Synthroid 0.088 mg Tablet] 0.088 mg PO Q6AM 02/18/18 Lorazepam [Ativan 1 mg Tablet] 1 mg PO Q8HP PRN 02/18/18 Lurasidone HCl [Latuda] 40 mg PO BIDBS 02/18/18 Mirtazapine [Remeron 15 mg Tablet] 15 mg PO QHS 02/18/18 Morphine Sulfate [Morphine Sulfate ER] 15 mg PO Q12 02/18/18 Naloxegol Oxalate [Movantik] 25 mg PO QAM 02/18/18 Ondansetron HCl [Zofran 4 mg Tablet] 4 mg PO BIDP PRN 02/18/18 Oxycodone HCl [Oxycodone HCl 10 MG Tablet] 10 mg PO Q6HP PRN 02/18/18 Topiramate [Topamax] 50 mg PO QPM 02/18/18 Tramadol HCl [Ultram 50 mg Tablet] 50 mg PO Q6HP PRN 02/18/18 Carvedilol [Coreg 3.125 mg Tablet] 3.125 mg PO Q12 #60 tablet 02/28/18 Fludrocortisone Acetate [Florinef 0.1 mg Tablet] 0.05 mg PO DAILY #30 tablet Furosemide [Lasix 20 mg Tablet] 20 mg PO QAM #30 tablet 02/28/18 Lisinopril [Prinivil 2.5 mg Tablet] 2.5 mg PO DAILY #30 tablet 02/28/18 Midodrine HCl [Proamatine 5 mg Tablet] 5 mg PO TID #90 tablet 02/28/18 History of Present Illness History of Present Illness: HILTON MI is a 47 year old female with history of bipolar disease, chronic pain, and migraines who presents with 1-2 days of worsening SOB and fevers ( Tmax 102). Patient states that she has been in generally good health until recently when she developed progressive SOB with exertion. She also notices fevers and chills and worsening lower extremity edema. She denies history of heart failure however has gained around 20lbs in the last week. Per report by EMS, patient was febrile to 100.8 and has O2 of 86% on RA. She does not require O2 at home. States that she recently had been evaluated by her communications operator who performed stress test and TTE and was "normal". Labs notable for leukocytosis and elevated proBNP. CXR shows multifocal PNA. Placed on BiPAP with improvement in respiratory status. Admitted to hospitalist service. Hospital Course Hospital Course: is a 47 years old female patient admitted 10 days ago with chief complaint of shortness of breath progressive weakness, exertional dyspnea and unintentional weight gain of about 20 pounds. Patient diagnosed with acute hypoxic respiratory failure for which she has been on BiPAP and possible right- sided heart failure and treated with Lasix. Also found to have low cortisol level for which she started on midodrine and Florinef. For multi-focal pneumonia she has been on cefepime. Patient has been doing well. This morning I seen and examined the patient while she is sitting on chair. She is not in pain or distress her O2 saturations around 95% while she is on room air. Her vital signs stable labs are within normal limits patient is stable enough to be discharged today. I will continue all her home medications and in addition before her Lasix 20 mg p.o. daily Coreg 3.25 mg twice a day lisinopril 20 mg p.o. daily Florinef 0.5 mg p.o. daily and midodrine 5 mg p.o. 3 times daily. Physical Exam Vital Signs: Temp Pulse Resp BP Pulse Ox 98.1 F 143 H 17 110/50 L 100 02/28/18 11:32 02/28/18 11:32 02/28/18 11:32 02/28/18 11:32 02/28/18 11:32 Pulse Oximeter Continuous Start: 02/18/18 11: 06 Freq: RTQ4 Status: Complete Document 02/18/18 16:00 LDA (Rec: 02/18/18 17:12 LDA [email or web address]) Pulse Oximetry Assessment Equipment Usage Equipment Discontinued Continuous SpO2 Machine # 00 Additional RT Notes Other pt. on spo2 and heart monitor Intake & Output 02/27/18 02/28/18 03/01/18 06:59 06:59 06:59 Intake Total 2850 1071 Output Total 750 Balance 2850 321 Weight 55.7 kg 55.7 kg General appearance: PRESENT: no acute distress, well-developed, well-nourished Head exam: PRESENT: atraumatic, normocephalic Respiratory exam: PRESENT: clear to auscultation rona. ABSENT: rales, rhonchi, wheezes Cardiovascular exam: PRESENT: RRR. ABSENT: diastolic murmur, rubs, systolic murmur Results Laboratory Results: 02/24/18 05:14 02/26/18 05:20 02/18/18 02/23/18 02/26/18 11:36 04:44 05:20 Troponin I 0.063 NT-Pro-B Natriuret Pep 799 H 387 H Impressions: Chest CT 02/20/18 00:00 IMPRESSION: Diffuse alveolar and interstitial infiltrates worrisome for edema. Small bilateral pleural effusions. Pneumonia could not be excluded. Mild mediastinal adenopathy Fatty liver, gastric bypass with inflammatory changes along the efferent limb, post cholecystectomy change Abdomen Ultrasound 02/23/18 00:00 IMPRESSION: FATTY LIVER. STATUS POST CHOLECYSTECTOMY. PANCREAS PARTIALLY OR COMPLETELY OBSCURED. OTHERWISE NORMAL RIGHT UPPER QUADRANT ULTRASOUND. Chest X-Ray 02/23/18 00:00 IMPRESSION: NO ACUTE RADIOGRAPHIC FINDING IN THE CHEST. NO SIGNIFICANT CHANGE FROM PRIOR STUDY. Qualifiers - * PATEINT BEING DISCHARGED WITH ANY OF THE FOLLOWING DIAGNOSIS?: Heart Failure VTE patient discharged on overlapping Therapy?: No Reason(s) for not prescribing Overlap Therapy:: Not indicated Stroke Pt being discharged on Anti-thrombolytic therapy?: No Reason(s) for not prescribing Anti-thrombolytic therapy:: Not indicated Stroke Pt being discharged on Anti-coagulation therapy?: No Reason(s) for not prescribing Anti-coagulation therapy:: Not indicated Stroke Pt being discharged on Statins?: No Reason(s) for not prescribing Statins therapy:: Not indicated NC Pt being discharged on Aspirin therapy?: No Reason(s) for not prescribing Aspirin therapy:: Not indicated NC Pt being discharged on Statins?: No Reason(s) for not prescribing Statin therapy:: Not indicated NC Pt discharged ACEI/ARBS?: No Reason(s) for not prescribing ACEI/ARBS:: Not indicated HF Pt being discharged on ACEI for LVEF less than 40%?: Yes HF Pt being discharged on ARBS for LVEF less than 40%?: No Reason(s) for not prescribing ARBS:: Not indicated - Patient is started on lisinopril HF Pt with Afib discharged with Warfarin?: No Reason(s) for not prescribing Warfarin:: Not indicated - Patient does not have a HF Pt discharged on evidence-based Beta Roseanne:: Yes
--- NOTE | 2018-03-01 17:59 | PDOC CONSULTATION ---
Consultation Consult Date: 02/26/18 Attending physician:: PETRA GIORDANO Consult reason:: SOB History of Present Illness Admission Date/PCP: 02/18/18 10:33 HILTON MORSE PA-C Patient complains of: Shortness of breath and pedal edema History of Present Illness: HILTON MI is a 47 year old female with history of bipolar disease, chronic pain, and migraines who presents with 1-2 days of worsening SOB and fevers ( Tmax 102). Patient states that she has been in generally good health until recently when she developed progressive SOB with exertion. She also notices fevers and chills and worsening lower extremity edema. She denies history of heart failure however has gained around 20lbs in the last week. Per report by EMS, patient was febrile to 100.8 and has O2 of 86% on RA. She does not require O2 at home. States that she recently had been evaluated by her career manager who performed stress test and TTE and was "normal". Labs notable for leukocytosis and elevated proBNP. CXR shows multifocal PNA. Placed on BiPAP with improvement in respiratory status. Admitted to hospitalist service. This history on presentation obtained by the hospitalist was reviewed. Course in the hospital was reviewed. She was also noted to have leukocytosis and an elevated BNP. Chest x-ray showed multifocal pneumonia. The patient was started on BiPAP and diagnosed with acute congestive heart failure exacerbation and multifocal pneumonia and started on Cefepime as well as continued on IV Lasix. One pack year smoking history, does not smoke currently. She has been exposed to second hand smoke chronically for many years. I was asked to evaluate patient because of relatively low blood pressure and right heart failure. Patient gives prior history of obesity surgery and significant weight loss. Patient also describes prior history of sleep apnea syndrome. However has not been retested whether this has resolved with weight loss or not. Past Medical History Cardiac Medical History: Reports: Hyperlipidema, Hypertension Pulmonary Medical History: Reports: Pneumonia Denies: Asthma, Chronic Obstructive Pulmonary Disease (COPD), Sleep Apnea Endocrine Medical History: Reports: Diabetes Mellitus Type 2 Denies: Hyperthyroidism, Hypothyroidism GI Medical History: Reports: Gastroesophageal Reflux Disease Denies: Cirrhosis, Hepatitis Musculoskeltal Medical History: Reports: Arthritis Psychiatric Medical History: Reports: Bipolar Disorder, Depression Hematology: Reports: Anemia Past Surgical History Past Surgical History: Reports: Cholecystectomy, Gastric Bypass Surgery, Hysterectomy, Orthopedic Surgery - LLE, left jaw Social History Information Source: Patient Smoking Status: Former Smoker Frequency of Alcohol Use: None Hx Recreational Drug Use: No Drugs: None Hx Prescription Drug Abuse: No - Advance Directive Resuscitation Status: Full Code Surrogate healthcare decision maker:: Patient's is the surrogate decision-maker Family History Family History: DM, Hypertension Parental Family History Reviewed: Yes Children Family History Reviewed: Yes Sibling(s) Family History Reviewed.: Yes Medication/Allergy Home Medications: Amitriptyline HCl [Elavil 50 mg Tablet] 50 mg PO DAILY 02/18/18 Benztropine Mesylate 1 mg PO BID 02/18/18 Biotin 5,000 mcg PO WBRKFST 02/18/18 Cholecalciferol (Vitamin D3) [Vitamin D3 1000 Unit Tablet] 1,000 unit PO WBRKFST 02/18/18 Cyanocobalamin (Vitamin B-12) [Vitamin B-12 1000 mcg Tablet] 1,000 mcg PO WBRKFST 02/18/18 Esomeprazole Magnesium [Nexium] 40 mg PO DAILY 02/18/18 Gabapentin [Neurontin 300 mg Capsule] 300 mg PO Q8 02/18/18 Levothyroxine Sodium [Synthroid 0.088 mg Tablet] 0.088 mg PO Q6AM 02/18/18 Lorazepam [Ativan 1 mg Tablet] 1 mg PO Q8HP PRN 02/18/18 Lurasidone HCl [Latuda] 40 mg PO BIDBS 02/18/18 Mirtazapine [Remeron 15 mg Tablet] 15 mg PO QHS 02/18/18 Morphine Sulfate [Morphine Sulfate ER] 15 mg PO Q12 02/18/18 Naloxegol Oxalate [Movantik] 25 mg PO QAM 02/18/18 Ondansetron HCl [Zofran 4 mg Tablet] 4 mg PO BIDP PRN 02/18/18 Oxycodone HCl [Oxycodone HCl 10 MG Tablet] 10 mg PO Q6HP PRN 02/18/18 Topiramate [Topamax] 50 mg PO QPM 02/18/18 Tramadol HCl [Ultram 50 mg Tablet] 50 mg PO Q6HP PRN 02/18/18 Carvedilol [Coreg 3.125 mg Tablet] 3.125 mg PO Q12 #60 tablet 02/28/18 Fludrocortisone Acetate [Florinef 0.1 mg Tablet] 0.05 mg PO DAILY #30 tablet Furosemide [Lasix 20 mg Tablet] 20 mg PO QAM #30 tablet 02/28/18 Lisinopril [Prinivil 2.5 mg Tablet] 2.5 mg PO DAILY #30 tablet 02/28/18 Midodrine HCl [Proamatine 5 mg Tablet] 5 mg PO TID #90 tablet 02/28/18 Allergies/Adverse Reactions: cilastatin [From Primaxin IV] Allergy (Intermediate, Verified 02/18/18 07:56) Facial swelling imipenem [From Primaxin IV] Allergy (Intermediate, Verified 02/18/18 07:56) Facial swelling Penicillins Allergy (Mild, Verified 02/24/18 12:04) Generalized rash Sulfa (Sulfonamide Antibiotics) Allergy (Mild, Verified 02/24/18 12:04) Generalized rash Review of Systems Review of Systems: Please see history of present illness and past medical history as wall. Constitutional: Fever and chills reported on presentation. Head : No recent chronic headaches, recent head injury. Eyes: No recent eye pain, diplopia, redness, discharge, acute visual changes. Ears: No recent chronic ear pain, acute hearing loss, ear discharge. Oral cavity: No recent ulcerations, bleeding, oral cavity discomfort. Neck: No recent acute neck pain reported. Hematologic: No recent easy bruising or bleeding. Lymphatic: No recent lymph node enlargement reported. Cardiovascular system review: See history of present illness. Patient denies any prior history of myocardial infarction, angina, CHF. Respiratory system review: No hemoptysis or blood clots in the lungs reported. Shortness of breath on exertion Gastrointestinal system review: Negative for any recent acute hematemesis, melena. History of gastric bypass surgery. Genitourinary system review: No recent acute or chronic hematuria, flank pain, UTI etc. reported. Skin system review: Negative for any recent abnormal bruising, no rash, no pruritus reported. Neurologic: No prior history of strokes, mini strokes, seizure disorder. Psychologic: No history of major psychosis or major depression reported. Musculoskeletal: Minor aches and pains reported. No acute joint swelling reported. Endocrine: No recent polyuria, polydipsia, recent heat or cold intolerance. Physical Exam Vital Signs: Temp Pulse Resp BP Pulse Ox 99.1 F 77 16 91/49 L 96 02/26/18 20:06 02/26/18 20:06 02/26/18 20:06 02/26/18 20:06 02/26/18 20:06 Pulse Oximeter Continuous Start: 02/18/18 11: 06 Freq: RTQ4 Status: Complete Document 02/18/18 16:00 LDA (Rec: 02/18/18 17:12 LDA [email or web address]) Pulse Oximetry Assessment Equipment Usage Equipment Discontinued Continuous SpO2 Machine # 00 Additional RT Notes Other pt. on spo2 and heart monitor Intake & Output 02/25/18 02/26/18 02/27/18 06:59 06:59 06:59 Intake Total 1187 1922 1600 Balance 1187 1922 1600 Weight 51.4 kg 54.4 kg Exam: GENERAL: well-nourished and in no acute distress. Alert and oriented x3 HEAD: Atraumatic, normocephalic. EYES: Pupils equal round and reactive to light, extraocular movements intact, sclera anicteric, conjunctiva are normal. ENT: TMs normal, nares patent, oropharynx clear without exudates. Moist mucous membranes. No oral ulcerations or bleeding gums noted NECK: supple without lymphadenopathy. Trachea is central. No cervical or axillary lymphadenopathy noted. Carotids are 2+, JVD borderline elevated at 8- 10 cm. LUNGS: Respiration seems nonlabored, no significant accessory muscle action noted. Bilateral fine crackles are noted. No wheezes rales or rhonchi noted. No significant dullness noted on percussion. CHEST: Palpation of the chest wall shows no significant chest wall tenderness. 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 ABDOMEN: Soft, no significant tenderness appreciated, normoactive bowel sounds. No guarding, no rebound. No rigidity noted . No masses appreciated. EXTREMITIES: Pedal pulses are 1-2+, no calf tenderness noted. No clubbing or cyanosis. 1-2+ pedal edema noted NEUROLOGICAL: Focused neurological exam showed no significant neurologic deficit. Normal speech, no focal weakness appreciated. PSYCH: Normal mood, normal affect. Judgment and insight within normal limits. SKIN: No significant ecchymosis, skin is noted to be warm. MUSCULOSKELETAL EXAM: No significant acute joint swelling noted. Results Laboratory Results: 02/24/18 05:14 02/26/18 05:20 02/26/18 05:20 Sodium 141.7 Potassium 4.0 Chloride 103 Carbon Dioxide 32 H Anion Gap 7 BUN 15 Creatinine 0.56 Est GFR ( Amer) > 60 Est GFR (Non-Af Amer) > 60 Glucose 73 L Calcium 8.5 Phosphorus 4.9 H Magnesium 2.2 Triglycerides 109 Cholesterol 132.23 LDL Cholesterol Direct 55 VLDL Cholesterol 22.0 HDL Cholesterol 54 02/18/18 02/23/18 02/26/18 11:36 04:44 05:20 Troponin I 0.063 NT-Pro-B Natriuret Pep 799 H 387 H EKG Comments: Initial EKG on admission showed sinus tachycardia without any acute ST-T wave changes Impressions: Chest CT 02/20/18 00:00 IMPRESSION: Diffuse alveolar and interstitial infiltrates worrisome for edema. Small bilateral pleural effusions. Pneumonia could not be excluded. Mild mediastinal adenopathy Fatty liver, gastric bypass with inflammatory changes along the efferent limb, post cholecystectomy change Abdomen Ultrasound 02/23/18 00:00 IMPRESSION: FATTY LIVER. STATUS POST CHOLECYSTECTOMY. PANCREAS PARTIALLY OR COMPLETELY OBSCURED. OTHERWISE NORMAL RIGHT UPPER QUADRANT ULTRASOUND. Chest X-Ray 02/23/18 00:00 IMPRESSION: NO ACUTE RADIOGRAPHIC FINDING IN THE CHEST. NO SIGNIFICANT CHANGE FROM PRIOR STUDY. Assessment & Plan - Diagnosis (1) Acute respiratory failure with hypoxia Is this a current diagnosis for this admission?: Yes (2) Adrenal insufficiency Is this a current diagnosis for this admission?: Yes (3) CHF (congestive heart failure) Qualifiers: Heart failure type: right-sided Heart failure chronicity: acute on chronic Qualified Code(s): I50.813 - Acute on chronic right heart failure Is this a current diagnosis for this admission?: Yes (4) Hypotension (arterial) Qualifiers: Hypotension type: unspecified hypotension type Qualified Code(s): I95.9 - Hypotension, unspecified Is this a current diagnosis for this admission?: Yes (5) Multifocal pneumonia Is this a current diagnosis for this admission?: Yes (6) Leg edema Is this a current diagnosis for this admission?: Yes - Notes Notes: Previously obtained echo showed normal LVEF and diastolic function with no significant valvular abnormalities. RV and RA mildly dilated. These results were reviewed. Acute respiratory failure with hypoxemia: This was noted on presentation and could have resulted in a aggravation of CHF due to right-sided failure. Patient was treated adequately with noninvasive ventilation and oxygenation. Congestive heart failure: [place] to be predominantly right-sided. This is based on echocardiogram report. Patient may have contribution from diastolic dysfunction. Patient may have had right-sided heart failure because of previous history of obesity hypoventilation syndrome, possible underlying sleep apnea syndrome etc. and this will need to be evaluated as an outpatient. Adrenal insufficiency: This is being treated by the hospitalist with fludrocortisone and steroid therapy. Arterial hypotension: Being adequately managed with Midrin along with fludrocortisone. Multifocal pneumonia: Patient got treated with antibiotics. Chronic leg edema: Possibly related to chronic right heart failure but could have contribution from dependency, venous insufficiency etc. May need further evaluation as an outpatient. - Time Time Spent: 30 to 50 Minutes - CODE STATUS was discussed, patient remains full code. Surrogate decision-maker unchanged. Multiple medical problems were addressed. More than 50% of the time spent coordinating care, discussing management plans with involved caregivers. Management plans discussed with involved personnels. Medical decision making was of moderate to high complexity , patient's has multiple comorbidities. Medications reviewed and adjusted accordingly: Yes
--- NOTE | 2018-03-01 18:04 | PDOC PROGRESS REPORT ---
Subjective Progress Note for:: 02/27/18 Subjective:: Patient seems to be doing better. Patient still has some pedal edema but significantly improved. Pt is denying any chest arm or neck discomfort. Patient denying any PND, orthopnea. Patient denied any sustained palpitations, dizziness, syncope, near syncope. Patient denying any fever chills. Patient denying any other significant discomfort. Patient is maintaining sinus rhythm. Review of systems: Rest review of systems negative. Medications: Medications have been reviewed. Reason For Visit: RESPIRATORY DISTRESS Physical Exam Vital Signs: Temp Pulse Resp BP Pulse Ox 98.4 F 72 16 98/50 L 100 02/27/18 15:54 02/27/18 16:01 02/27/18 15:54 02/27/18 16:01 02/27/18 16:00 Pulse Oximeter Continuous Start: 02/18/18 11: 06 Freq: RTQ4 Status: Complete Document 02/18/18 16:00 LDA (Rec: 02/18/18 17:12 LDA [email or web address]) Pulse Oximetry Assessment Equipment Usage Equipment Discontinued Continuous SpO2 Machine # 00 Additional RT Notes Other pt. on spo2 and heart monitor Intake & Output 02/26/18 02/27/18 02/28/18 06:59 06:59 06:59 Intake Total 1922 2850 621 Output Total 750 Balance 1922 2850 -129 Weight 54.4 kg 55.7 kg Exam: GENERAL: well-nourished and in no acute distress. Alert and oriented x3 HEAD: Atraumatic, normocephalic. EYES: Pupils equal round and reactive to light, extraocular movements intact, sclera anicteric, conjunctiva are normal. ENT: TMs normal, nares patent, oropharynx clear without exudates. Moist mucous membranes. No oral ulcerations or bleeding gums noted NECK: supple without lymphadenopathy. Trachea is central. No cervical or axillary lymphadenopathy noted. Carotids are 2+, JVD WNL LUNGS: Respiration seems nonlabored, no significant accessory muscle action noted. Bibasilar fine crackles noted. No wheezes rales or rhonchi noted. No significant dullness noted on percussion. CHEST: Palpation of the chest wall shows no significant chest wall tenderness. 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 ABDOMEN: Soft, no significant tenderness appreciated, normoactive bowel sounds. No guarding, no rebound. No rigidity noted . No masses appreciated. EXTREMITIES: Pedal pulses are 1-2+, no calf tenderness noted. No clubbing or cyanosis. 1+ pedal edema noted NEUROLOGICAL: Focused neurological exam showed no significant neurologic deficit. Normal speech, no focal weakness appreciated. PSYCH: Normal mood, normal affect. Judgment and insight within normal limits. SKIN: No significant ecchymosis, skin is noted to be warm. MUSCULOSKELETAL EXAM: No significant acute joint swelling noted. Results Laboratory Results: 02/24/18 05:14 02/26/18 05:20 02/27/18 11:00 Urine Color YELLOW Urine Appearance CLEAR Urine pH 8.0 Ur Specific Basom 1.006 Urine Protein NEGATIVE Urine Glucose (UA) NEGATIVE Urine Ketones NEGATIVE Urine Blood NEGATIVE Urine Nitrite NEGATIVE Ur Leukocyte Esterase NEGATIVE Urine WBC (Auto) 1 Urine RBC (Auto) 1 02/18/18 02/23/18 02/26/18 11:36 04:44 05:20 Troponin I 0.063 NT-Pro-B Natriuret Pep 799 H 387 H EKG Comments: Telemetry shows sinus rhythm without any sustained tachycardia or bradycardia Impressions: Chest CT 02/20/18 00:00 IMPRESSION: Diffuse alveolar and interstitial infiltrates worrisome for edema. Small bilateral pleural effusions. Pneumonia could not be excluded. Mild mediastinal adenopathy Fatty liver, gastric bypass with inflammatory changes along the efferent limb, post cholecystectomy change Abdomen Ultrasound 02/23/18 00:00 IMPRESSION: FATTY LIVER. STATUS POST CHOLECYSTECTOMY. PANCREAS PARTIALLY OR COMPLETELY OBSCURED. OTHERWISE NORMAL RIGHT UPPER QUADRANT ULTRASOUND. Chest X-Ray 02/23/18 00:00 IMPRESSION: NO ACUTE RADIOGRAPHIC FINDING IN THE CHEST. NO SIGNIFICANT CHANGE FROM PRIOR STUDY. Assessment & Plan - Diagnosis (1) Acute respiratory failure with hypoxia Is this a current diagnosis for this admission?: Yes (2) CHF (congestive heart failure) Qualifiers: Heart failure type: right-sided Heart failure chronicity: acute on chronic Qualified Code(s): I50.813 - Acute on chronic right heart failure Is this a current diagnosis for this admission?: Yes (3) Hypotension (arterial) Qualifiers: Hypotension type: unspecified hypotension type Qualified Code(s): I95.9 - Hypotension, unspecified Is this a current diagnosis for this admission?: Yes (4) Leg edema Is this a current diagnosis for this admission?: Yes (5) Multifocal pneumonia Is this a current diagnosis for this admission?: Yes - Notes Notes: Acute respiratory failure with hypoxemia: This was noted on presentation and could have resulted in a aggravation of CHF due to right-sided failure. Patient was treated adequately with noninvasive ventilation and oxygenation. Patient currently is stable and seems to be not needing any oxygen. However patient will benefit from evaluation for any nocturnal oxygen supplementation. This can be performed as an outpatient. Congestive heart failure: [place] to be predominantly right-sided. This is based on echocardiogram report. Patient may have contribution from diastolic dysfunction. Patient may have had right-sided heart failure because of previous history of obesity hypoventilation syndrome, possible underlying sleep apnea syndrome etc. and this will need to be evaluated as an outpatient. Continue current dose of diuretic therapy. Further adjustment can be performed as an outpatient. Adrenal insufficiency: This is being treated by the hospitalist with fludrocortisone and steroid therapy. Will be happy to monitor this as an outpatient. Arterial hypotension: Being adequately managed with Midrin along with fludrocortisone. Blood pressure currently stable. Multifocal pneumonia: Patient got treated with antibiotics. Seems resolved. Chronic leg edema: Possibly related to chronic right heart failure but could have contribution from dependency, venous insufficiency etc. May need further evaluation as an outpatient. Patient can be evaluated for venous insufficiency as an outpatient. This can be done through my office - Time Time with patient: Greater than 35 minutes - CODE STATUS was discussed, patient remains full code. Surrogate decision-maker unchanged. Multiple medical problems were addressed. More than 50% of the time spent coordinating care, discussing management plans with involved caregivers. Management plans discussed with involved personnels. Medical decision making was of moderate to high complexity, patient's has multiple comorbidities. Medications reviewed and adjusted accordingly: Yes
== END 2018-02-28 13:47 | disposition home health service (06) | DRG 291 ==
LOC: ER 07:55 → EH 10:33 → UNDOADMIN 10:33 → 3W 15:03 → EH 15:03 → 3W 02-19 00:59 → ICU 02-19 00:59 → 4S 02-22 18:20
PROVIDERS: ADMIT Family Medicine; ATTEND Family Medicine
PROC: 5A09357 Assistance with Respiratory Ventilation, Less than 24 Consecutive Hours, Continuous Positive Airway Pressure (ICD-10-PCS; principal; 2018-02-18)
DX: I11.0 Hypertensive heart disease with heart failure (principal); J18.9 Pneumonia, unspecified organism; J96.01 Acute respiratory failure with hypoxia; N30.00 Acute cystitis without hematuria; E27.40 Unspecified adrenocortical insufficiency; I50.811 Acute right heart failure; F31.9 Bipolar disorder, unspecified; G89.29 Other chronic pain; G43.909 Migraine, unspecified, not intractable, without status migrainosus; D72.829 Elevated white blood cell count, unspecified; E78.5 Hyperlipidemia, unspecified; E11.9 Type 2 diabetes mellitus without complications; K21.9 Gastro-esophageal reflux disease without esophagitis; I95.1 Orthostatic hypotension; M19.90 Unspecified osteoarthritis, unspecified site; D64.9 Anemia, unspecified; M25.552 Pain in left hip; M25.551 Pain in right hip; B95.62 Methicillin resistant Staphylococcus aureus infection as the cause of diseases classified elsewhere; E03.9 Hypothyroidism, unspecified; Z79.899 Other long term (current) drug therapy; Z88.2 Allergy status to sulfonamides; Z90.49 Acquired absence of other specified parts of digestive tract; Z98.84 Bariatric surgery status; Z87.891 Personal history of nicotine dependence; Z88.0 Allergy status to penicillin; Z88.8 Allergy status to other drugs, medicaments and biological substances
CPT/HCPCS: 36415; 36600; 51702; 71045; 71046; 71260; 76705; 80048; 80053; 80061; 80202; 81001; 82533; 82553; 82565; 82803; 82962; 83605; 83735; 83880; 84100; 84439; 84443; 84481; 84484; 85025; 85610; 87040; 87086; 87088; 87186; 93005; 93010; 93306; 93976; 94640; 94660; 94667; 94668; 96365; 96375; 99291; G8978-GP; G8979-GP; J0692; J1650; J1940; J1956; J2310; J3370; J3411; J3480; J3490; J7050; J7060; J7620

== ENCOUNTER → 2018-03-18 | Outpatient (CLI) | payer MEDICARE, MEDICAID ==
--- NOTE | 2018-03-18 15:01 | RADIOLOGY REPORT (SQ) ---
EXAM DESCRIPTION: FOOT LEFT COMPLETE COMPLETED DATE/TIME: 03/18/2018 2:37 pm REASON FOR STUDY: LEFT FOOT PAIN M79.672 PAIN IN LEFT FOOT COMPARISON: 02/18/2008 NUMBER OF VIEWS: Three views. TECHNIQUE: AP, lateral and oblique radiographic images acquired of the left foot. LIMITATIONS: None. FINDINGS: MINERALIZATION: Osteopenia. BONES: Chronic deformity of the proximal 1st metatarsal. Brennan in the distal tibia partially visualize d. No acute fracture or dislocation. No worrisome bone lesions. JOINTS: No effusions. SOFT TISSUES: No foreign body. OTHER: No other significant finding. IMPRESSION: Osteopenia. No acute fracture identified. TECHNICAL DOCUMENTATION: JOB ID: [id number] [employer]- All Rights Reserved Reading location - IP/workstation name: [email or web address]
== END ==
LOC: OD 14:23
PROVIDERS: ATTEND Physician Assistant
DX: M79.672 Pain in left foot (principal); M85.88 Other specified disorders of bone density and structure, other site

== ENCOUNTER → 2018-04-03 | Outpatient (CLI) | payer MEDICARE, MEDICAID ==
[2018-04-03 11:31] LABS: ABSOLUTE BASOPHILS # (AUTO) 0.1 10^3/uL (0.0-0.2); ABSOLUTE EOSINOPHILS # (AUTO) 0.2 10^3/uL (0.0-0.6); ABSOLUTE LYMPHOCYTES (AUTO) 2.4 10^3/uL (0.5-4.7); ABSOLUTE MONOCYTES (AUTO) 0.5 10^3/uL (0.1-1.4); ABSOLUTE NEUT (AUTO) 4.1 10^3/uL (1.7-8.2); BASOPHILS % (AUTO) 0.9 % (0-2); EOSINOPHILS % (AUTO) 2.7 % (0-6); HEMATOCRIT 33.5 % (36.0-47.0); HEMOGLOBIN 10.6 g/dL (12.0-15.5); LYMPHOCYTES % (AUTO) 33.1 % (13-45); MEAN CORPUSCULAR HEMOGLOBIN 29.5 pg (27.0-33.4); MEAN CORPUSCULAR HGB CONC 31.5 g/dL (32.0-36.0); MEAN CORPUSCULAR VOLUME 94 fl (80-97); MONOCYTES % (AUTO) 6.4 % (3-13); PLATELET COUNT 281 10^3/uL (150-450); RED BLOOD COUNT 3.59 10^6/uL (3.72-5.28); RED CELL DISTRIBUTION WIDTH 15.7 % (11.5-14.0); SEGMENTED NEUTROPHILS % (AUTO) 56.9 % (42-78); TOTAL CELLS COUNTED % (AUTO) 100 %; WHITE BLOOD COUNT 7.2 10^3/uL (4.0-10.5)
[2018-04-03 11:47] LABS: APPEARANCE,URINE CLEAR; BILIRUBIN,URINE NEGATIVE (NEGATIVE); COLOR,URINE STRAW; GLUCOSE, URINE NEGATIVE (NEGATIVE); KETONES,URINE NEGATIVE (NEGATIVE); LEUKOCYTE ESTERASE,URINE NEGATIVE (NEGATIVE); NITRITE,URINE NEGATIVE (NEGATIVE); PROTEIN,URINE NEGATIVE (NEGATIVE); URINE SPECIFIC GRAVITY 1.004; UROBILINOGEN,URINE NEGATIVE mg/dL (<2.0)
[2018-04-03 11:52] LABS: ANION GAP 8 (5-19); BLOOD UREA NITROGEN 12 mg/dL (7-20); CALCIUM 8.8 mg/dL (8.4-10.2); CARBON DIOXIDE 28 mmol/L (22-30); CHLORIDE 109 mmol/L (98-107); GLUCOSE 90 mg/dL (75-110); POTASSIUM 4.1 mmol/L (3.6-5.0); SODIUM 145.2 mmol/L (137-145)
== END ==
LOC: OD 10:37
PROVIDERS: ATTEND Orthopaedic Surgery
DX: Z01.818 Encounter for other preprocedural examination (principal); Z01.812 Encounter for preprocedural laboratory examination
CPT/HCPCS: 36415; 80048; 81001; 85025

== ENCOUNTER → 2018-06-12 | Outpatient (CLI) | payer MEDICARE, MEDICAID ==
[~2018-06-12] MED LIST: REGADENOSON INJ 0.4 MG/5 ML DISP.SYRIN IV ONE
--- NOTE | 2018-06-12 18:12 | DRAGON STRESS TEST REPORT ---
INTRAVENOUS LEXISCAN CARDIOLITE STRESS TEST USING SINGLE PHOTON EMMISION COMPUTERIZED TOMOGRAPHIC. DATE OF PROCEDURE: June 12, 2018, INDICATION : Congestive heart failure CARDIAC RISK FACTORS: Hypertension RESTING EKG: Sinus rhythm, no baseline ST-T wave changes noted STRESS EKG: No significant ST segment changes noted with LexiScan bolus REASON FOR TERMINATION: Protocol. PROCEDURE REPORT: Baseline heart rate 71 beats per minute with blood pressure of 94/64. Patient had no significant complaints. Patient was bolused with Lexiscan 0.4 mg intravenously followed by saline bolus. Heart rate at 2 minutes post bolus 110 with a blood pressure of 105/57. 3 minutes post bolus heart rate 109 with blood pressure of 102/62. No significant EKG changes were noted. Patient had no significant complaints during the procedure or postprocedure. CONCLUSIONS: Normal EKG and hemodynamic response to IV LexiScan. NUCLEAR DATA: At rest the patient was given 10.76 millicuries of technetium 99 sestamibi injected intravenously. As per protocol rest gated SPECT images were obtained. On day of stress test, the patient was given intravenous LexiScan at a dose of 0.4 mg in 5 mL intravenously, followed by flush with normal saline. Subsequently the stress dose of 30.1 millicuries of technetium 99 sestamibi was injected intravenously. As per protocol stress gated images were obtained. NUCLEAR INTERPRETATION: Both raw and processed data were used for interpretation. Visual, qualitative, computer-generated quantitative data was used. There was good myocardial uptake of technetium compound. Motion artifact and soft tissue attenuations were noted. Increased motion artifact noted. Increased visceral uptake was noted. No definitive areas of transient perfusion defect noted, No definitive areas of fixed perfusion defect or scars noted. Borderline decreased uptake noted in the mid anterior and mid inferior wall but is felt to be related to artifacts from motion. Raw images did not show any corresponding decreased uptake. EKG gated imaging showed LV EF at 58 %, rest and stress gated EF similar visually. T. I D. ratio was 1.08. Lung heart ratio noted to be within normal limits 0.38. No significant extracardiac and abnormal radiotracer activities were noted. RV free wall uptake was noted to be borderline increased. IMPRESSION: Also refer to comments under nuclear interpretation. Also test results needs to be interpreted in the context of pretest probability. 1. No definitive areas of transient perfusion defect noted. 2. There is no definitive scintigraphic evidence of myocardial infarction/scar. 3. EKG gated imaging shows left ventricular ejection fraction of approx. 58 %. 4. Clinical correlation requested as occasionally single vessel disease or balanced ischemia could be missed. In approximately 10% of the cases Lexiscan may not cause adequate vasodilatory stress. RECOMMENDATIONS: Aggressive risk factor modification and medical management. Further evaluation may be needed if continued symptoms or other high risk indicators are noted on clinical evaluation. Close cardiology follow-up is also recommended. Clinical correlation with echocardiogram derived ejection fraction. Inability to exercise by itself can lead to increased cardiovascular event risks. Consider cardiology consultation and or follow-up if clinically indicated. I am available for cardiology evaluation and consultation if requested by the keyseating machine set up operator, unless patient already has a stock hanger. Dr. Boogie Gabriel. [facility] Board certified in cardiology and sleep medicine. Board certified in nuclear cardiology, adult echocardiography. [facility]A
== END ==
LOC: RAD 06:14
PROVIDERS: ATTEND Internal Medicine Cardiovascular Disease
DX: I50.30 Unspecified diastolic (congestive) heart failure (principal)
CPT/HCPCS: 93017; 78452; A9500; J2785; Q9969

== ENCOUNTER → 2018-06-18 | Outpatient (CLI) | payer MEDICARE, MEDICAID ==
[2018-06-18 12:01] LABS: APPEARANCE,URINE CLEAR; BILIRUBIN,URINE NEGATIVE (NEGATIVE); COLOR,URINE YELLOW; GLUCOSE, URINE NEGATIVE (NEGATIVE); KETONES,URINE NEGATIVE (NEGATIVE); LEUKOCYTE ESTERASE,URINE NEGATIVE (NEGATIVE); NITRITE,URINE NEGATIVE (NEGATIVE); PROTEIN,URINE NEGATIVE (NEGATIVE); URINE SPECIFIC GRAVITY 1.016; UROBILINOGEN,URINE NEGATIVE mg/dL (<2.0)
== END ==
LOC: OD 10:14
PROVIDERS: ATTEND Orthopaedic Surgery
DX: Z01.810 Encounter for preprocedural cardiovascular examination (principal); Z01.812 Encounter for preprocedural laboratory examination; Z01.818 Encounter for other preprocedural examination
CPT/HCPCS: 81001

== ENCOUNTER → 2018-08-28 | Outpatient (CLI) | payer MEDICARE, MEDICAID ==
--- NOTE | 2018-08-28 08:18 | RADIOLOGY REPORT (SQ) ---
EXAM DESCRIPTION: CHEST PA/LATERAL COMPLETED DATE/TIME: 08/28/2018 7:58 am REASON FOR STUDY: PRE-OP COMPARISON: Two-view chest 02/23/2018, 02/20/2018 CT angio chest 02/20/2018 EXAM PARAMETERS: NUMBER OF VIEWS: two views TECHNIQUE: Digital Frontal and Lateral radiographic views of the chest acquired. RADIATION DOSE: NA LIMITATIONS: none FINDINGS: LUNGS AND PLEURA: No opacities, masses or pneumothorax. No pleural effusion. MEDIASTINUM AND HILAR STRUCTURES: No masses or contour abnormalities. HEART AND VASCULAR STRUCTURES: Heart normal size. No evidence for failure. BONES: Osteopenic without thoracic compression deformity. HARDWARE: None in the chest. OTHER: No other significant finding. IMPRESSION: NO SIGNIFICANT RADIOGRAPHIC FINDING IN THE CHEST. TECHNICAL DOCUMENTATION: JOB ID: [id number] [employer]- All Rights Reserved Reading location - IP/workstation name: [email or web address]
[2018-08-28 08:25] LABS: ABSOLUTE BASOPHILS # (AUTO) 0.1 10^3/uL (0.0-0.2); ABSOLUTE EOSINOPHILS # (AUTO) 0.1 10^3/uL (0.0-0.6); ABSOLUTE LYMPHOCYTES (AUTO) 1.7 10^3/uL (0.5-4.7); ABSOLUTE MONOCYTES (AUTO) 0.4 10^3/uL (0.1-1.4); BASOPHILS % (AUTO) 0.6 % (0-2); EOSINOPHILS % (AUTO) 1.3 % (0-6); HEMATOCRIT 31.4 % (36.0-47.0); HEMOGLOBIN 10.1 g/dL (12.0-15.5); LYMPHOCYTES % (AUTO) 18.6 % (13-45); MEAN CORPUSCULAR HEMOGLOBIN 26.4 pg (27.0-33.4); MEAN CORPUSCULAR HGB CONC 32.2 g/dL (32.0-36.0); MEAN CORPUSCULAR VOLUME 82 fl (80-97); PLATELET COUNT 314 10^3/uL (150-450); RED BLOOD COUNT 3.84 10^6/uL (3.72-5.28); RED CELL DISTRIBUTION WIDTH 17.3 % (11.5-14.0); SEGMENTED NEUTROPHILS % (AUTO) 75.5 % (42-78); TOTAL CELLS COUNTED % (AUTO) 100 %; WHITE BLOOD COUNT 9.3 10^3/uL (4.0-10.5)
[2018-08-28 08:40] LABS: APPEARANCE,URINE CLEAR; BILIRUBIN,URINE NEGATIVE (NEGATIVE); CALCIUM OXALATE CRYSTALS,URINE FEW /HPF; COLOR,URINE YELLOW; GLUCOSE, URINE NEGATIVE (NEGATIVE); KETONES,URINE NEGATIVE (NEGATIVE); LEUKOCYTE ESTERASE,URINE NEGATIVE (NEGATIVE); NITRITE,URINE NEGATIVE (NEGATIVE); PROTEIN,URINE NEGATIVE (NEGATIVE); URINE SPECIFIC GRAVITY 1.011; UROBILINOGEN,URINE NEGATIVE mg/dL (<2.0)
[2018-08-28 11:18] LABS: ANION GAP 10 (5-19); BLOOD UREA NITROGEN 10 mg/dL (7-20); CALCIUM 7.9 mg/dL (8.4-10.2); CARBON DIOXIDE 26 mmol/L (22-30); CHLORIDE 103 mmol/L (98-107); GLUCOSE 79 mg/dL (75-110); SODIUM 139.3 mmol/L (137-145)
--- NOTE | 2018-08-28 12:51 | EKG REPORT ---
SEVERITY:- OTHERWISE NORMAL ECG - SINUS RHYTHM BORDERLINE LEFT AXIS DEVIATION : Confirmed by: Alli Fish MD 28-Aug-2018 12:50:18
[2018-08-28 14:23] LABS: POTASSIUM 2.6 mmol/L (3.6-5.0)
== END ==
LOC: OD 07:10
PROVIDERS: ATTEND Orthopaedic Surgery
DX: Z01.818 Encounter for other preprocedural examination (principal); S72.025D Nondisplaced fracture of epiphysis (separation) (upper) of left femur, subsequent encounter for closed fracture with routine healing; X58.XXXD Exposure to other specified factors, subsequent encounter; M25.552 Pain in left hip
CPT/HCPCS: 36415; 71046; 80048; 81001; 85025; 93005; 93010

== ENCOUNTER 2018-09-08 10:17 | Inpatient (IN) | payer MEDICARE, MEDICAID ==
[~2018-09-08 10:17] MED LIST changes: +BUPIVACAINE INJ/PF LIPOSOME/PF 266 MG/20 ML SDV IJ PRN; +IBUPROFEN 800 MG/NS 250 ML IV PRN; +LACTATED RINGERS 1000 ML IV PRN; +LANSOPRAZOLE 15 MG TAB.RAP.DR PO PRN; +LIDOCAINE 0.5% INJ-PF (5 MG/ML) 50 ML SDV SUBCUT PRN; +OXYCODONE HCL SR 10 MG TABLET PO PRN; -REGADENOSON INJ 0.4 MG/5 ML DISP.SYRIN IV ONE; +VANCOMYCIN HCL 1,000 MG in DEXTROSE 5%-WATER 250 ML IV PRN
[2018-09-08] MEDS ORDERED: THROMBIN (BOVINE) TOPICAL 20000 UNIT VIAL ONE (10:44)
[2018-09-08] MEDS ORDERED: BUPIVACAINE HCL 0.25% /EPINEPHRINE INJ/PF 30 ML SDV ONE (10:44)
[2018-09-08] MEDS ORDERED: THROMBIN (BOVINE) TOPICAL 5000 UNIT VIAL ONE (10:45)
[2018-09-08] MEDS ORDERED: LANSOPRAZOLE 15 MG TAB.RAP.DR ONE (11:21)
[2018-09-08] MEDS ORDERED: OXYCODONE HCL SR 10 MG TABLET PO ONE (11:21)
[2018-09-08] MEDS ORDERED: FENTANYL CITRATE INJ/PF 100 MCG/2 ML AMPUL ONE (11:45)
[2018-09-08] MEDS ORDERED: EPHEDRINE SULFATE INJ 50 MG/1 ML AMPULE ONE (11:45)
[2018-09-08] MEDS ORDERED: MIDAZOLAM 2 MG/2 ML INJ ONE (11:45)
[2018-09-08] MEDS ORDERED: PROPOFOL INJ 200 MG/20 ML VIAL IV ONE (11:45)
[2018-09-08] MEDS ORDERED: BUPIVACAINE HCL/DEX-WATER/PF 15 MG/2 ML AMPULE ONE (11:46)
[2018-09-08] MEDS ORDERED: TRANEXAMIC ACID INJ/PF 1,000 MG/10 ML SDV IV ONE ×2 (12:55→15:25)
[2018-09-08] MEDS ORDERED: MEPERIDINE HCL/PF INJ 25 MG/1 ML DISP.SYRIN IV PRN (13:07)
[2018-09-08] MEDS ORDERED: OXYCODONE-ACETAMINOPHEN 5-325 MG TABLET PO PRN ×2 (13:07)
[2018-09-08] MEDS ORDERED: FENTANYL CITRATE INJ/PF 100 MCG/2 ML AMPUL IV PRN ×3 (13:07)
[2018-09-08] MEDS ORDERED: PROMETHAZINE HCL INJ 25 MG/1 ML VIAL IV PRN ×2 (13:07)
[2018-09-08] MEDS ORDERED: DIPHENHYDRAMINE HCL 50 MG/ML VIAL IV PRN ×2 (13:07→13:41)
[2018-09-08] MEDS ORDERED: ALPRAZOLAM 0.5 MG TABLET PO PRN (13:39)
[2018-09-08] MEDS ORDERED: (PENDING PHARMACY ID) (Ondansetron Hcl [Zofran 4 Mg Tablet] 4 MG) PO PRN (13:39)
--- NOTE | 2018-09-08 13:39 | Operative Report ---
Operative Report DATE OF SURGERY: 09/08/18 PREOPERATIVE DIAGNOSIS: Painful left femoral neck fracture status post ORIF OPERATION: Left hip conversion arthroplasty SURGEON: STAR PACE ANESTHESIA: Spinal TISSUE REMOVED OR ALTERED: cx to micro. screws to css ESTIMATED BLOOD LOSS: 100 PROCEDURE: Implants used: Femur: Misael Accolade 2 stem size 4 Acetabular shell: 48 mm hemispherical shell Liner: 36 mm cross-link polyethylene liner Head: 36 mm chrome cobalt head -5 neck The patient is placed in a right lateral decubitus position on the operating table. The left lower extremity and hindquarter is prepped and draped in a sterile fashion. A curvilinear incision was made over the greater trochanter a posterior approach the hip was taken. The incision is extended distally until the 3x6.5 titanium cannulated screws are visualized. Cultures are sent from around the screw heads. These are removed uneventfully. The femoral head is dislocated and the femoral neck transected using an oscillating saw. Attention was next turned to the acetabulum. Soft tissues cleared off the acetabulum using electrocautery. The acetabulum was then prepared using a series of hemispherical reamers until a 48 millimeters reamer is seated. Subsequently a 48 millimeters [place] titanium hemispherical shell is impacted into position and secured with one screw. A standard flat 36 millimeters cross- link liner is impacted into the shell. Attention was next turned to the femur. Access is gained to the femoral canal using a box osteotome to the piriformis fossa. The femur is then prepared using a series of broaches until a number 4 broach is seated. A trial reduction was now performed using a 36 millimeters head with -5 neck. Preoperative leg length was recreated and is excellent anterior posterior stability. A decision was made to proceed with the above construct. All trial implants were removed. The wound is irrigated with pulsed lavage. A number 4 stem is impacted into the femoral canal. A trial reduction was again performed with a 36 mm head and a -5 neck. Findings as previously. The hip was dislocated one last time and the final chrome-cobalt head is impacted onto the trunnion. The hip was reduced. Wound is copiously irrigated with pulsed lavage. Sent closed in layers using interrupted Vicryl followed by cameron. A sterile dressing is applied and the patient's returned to recovery room in satisfactory patient.
[2018-09-08] MEDS ORDERED: OXYCODONE HCL IR 5 MG TABLET PO PRN (13:41)
[2018-09-08] MEDS ORDERED: ONDANSETRON 4 MG TAB.RAPDIS PO PRN ×2 (13:41→13:54)
[2018-09-08] MEDS ORDERED: ZOLPIDEM TARTRATE 5 MG TABLET PO PRN (13:41)
[2018-09-08] MEDS ORDERED: RINGERS SOLUTION,LACTATED 1,000 ML IV PRN (13:41)
[2018-09-08] MEDS ORDERED: MORPHINE SULFATE 10 MG/ML INJ IV PRN ×2 (13:41)
[2018-09-08] MEDS ORDERED: ACETAMINOPHEN 325 MG TABLET PO PRN (13:41)
[2018-09-08] MEDS ORDERED: MAG HYDROX/AL HYDROX/SIMETH SUSP 30 ML UDCUP PO PRN (13:41)
[2018-09-08] MEDS ORDERED: ONDANSETRON HCL INJ/PF 4 MG/2 ML SDV IV PRN (13:41)
[2018-09-08] MEDS ORDERED: GABAPENTIN 300 MG CAPSULE PO SCH (14:00)
--- NOTE | 2018-09-08 15:16 | RADIOLOGY REPORT (SQ) ---
EXAM DESCRIPTION: PELVIS AP COMPLETED DATE/TIME: 09/08/2018 2:55 pm REASON FOR STUDY: Post Op Long Cassette in PACU S72.052D UNSP FX HEAD OF LEFT FEMUR, SUBS FOR CLOS FX W ROUT COMPARISON: None. NUMBER OF VIEWS: Two views TECHNIQUE: Digital radiographic images of the pelvis post-procedure LIMITATIONS: None. FINDINGS: BONES: No worrisome or unexpected findings post-procedure. DEVICE: Patient is status post right total hip replacement. The prosthesis appears well seated in th e acetabulum and proximal femoral medullary canal in the projections obtained. SOFT TISSUES: No worrisome findings. Expected postoperative soft tissue changes. IMPRESSION: SATISFACTORY POSTOPERATIVE PELVIS. TECHNICAL DOCUMENTATION: JOB ID: [id number] [employer]- All Rights Reserved Reading location - IP/workstation name: [email or web address]
[2018-09-08] MEDS ORDERED: FUROSEMIDE 20 MG TABLET PO SCH (18:00)
[2018-09-08] MEDS ORDERED: TOPIRAMATE 25 MG TABLET PO SCH (18:00)
[2018-09-08] MEDS: LURASIDONE HCL 40 MG TABLET PO SCH (18:24)
[2018-09-08] MEDS: FUROSEMIDE 40 MG TABLET PO SCH (18:25)
[2018-09-08] MEDS: SENNOSIDES/DOCUSATE 8.6-50 MG 1 EACH TABLET PO SCH (18:25)
[2018-09-08] MEDS: BENZTROPINE MESYLATE 1 MG TABLET PO SCH (18:25)
[2018-09-08] MEDS: IBUPROFEN 800 MG in NORMAL SALINE 250 ML IV SCH (22:21)
[2018-09-08] MEDS: PREGABALIN 75 MG CAPSULE PO SCH (22:23)
[2018-09-08] MEDS: OXYCODONE HCL SR 10 MG TABLET PO SCH (22:23)
[2018-09-08] MEDS: GABAPENTIN 300 MG CAPSULE PO SCH (22:24)
[2018-09-08] MEDS: MORPHINE SULFATE 10 MG/ML INJ IV PRN ×2 (22:24→23:42)
[2018-09-09] MEDS ORDERED: VANCOMYCIN HCL 1,000 MG in DEXTROSE 5%-WATER 250 ML IV ONE (01:42)
[2018-09-09] MEDS: MORPHINE SULFATE 10 MG/ML INJ IV PRN (02:09)
[2018-09-09] MEDS: CARVEDILOL 3.125 MG TABLET PO SCH ×2 (02:10→10:22)
[2018-09-09] MEDS: MORPHINE SULFATE 10 MG/ML INJ IM PRN ×2 (04:16→05:54)
[2018-09-09] MEDS: IBUPROFEN 800 MG in NORMAL SALINE 250 ML IV SCH ×2 (05:54→15:07)
[2018-09-09] MEDS: GABAPENTIN 300 MG CAPSULE PO SCH ×2 (05:55→15:07)
[2018-09-09] MEDS ORDERED: LANSOPRAZOLE 30 MG TAB.RAP.DR PO SCH (06:00)
[2018-09-09] MEDS ORDERED: LEVOTHYROXINE SODIUM 0.088 MG TABLET PO SCH (06:00)
[2018-09-09 06:42] LABS: HEMATOCRIT 22.8 % (36.0-47.0); MEAN CORPUSCULAR HEMOGLOBIN 25.9 pg (27.0-33.4); MEAN CORPUSCULAR HGB CONC 31.9 g/dL (32.0-36.0); MEAN CORPUSCULAR VOLUME 81 fl (80-97); PLATELET COUNT 288 10^3/uL (150-450); RED BLOOD COUNT 2.81 10^6/uL (3.72-5.28); RED CELL DISTRIBUTION WIDTH 17.4 % (11.5-14.0); WHITE BLOOD COUNT 10.2 10^3/uL (4.0-10.5)
[2018-09-09 07:09] LABS: ANION GAP 8 (5-19); BLOOD UREA NITROGEN 8 mg/dL (7-20); CALCIUM 7.3 mg/dL (8.4-10.2); CARBON DIOXIDE 25 mmol/L (22-30); CHLORIDE 106 mmol/L (98-107); GLUCOSE 98 mg/dL (75-110); POTASSIUM 3.7 mmol/L (3.6-5.0); SODIUM 138.9 mmol/L (137-145)
--- NOTE | 2018-09-09 07:19 | PDOC PROGRESS REPORT ---
Subjective Progress Note for:: 09/09/18 Reason For Visit: LEFT FEMORAL NECK FRACTURE 48-year-old white female postop day 1 from left hip conversion arthroplasty. Patient complaining of pain overnight. Physical Exam Vital Signs: Temp Pulse Resp BP Pulse Ox 36.9 C 69 15 115/63 98 09/08/18 23:00 09/08/18 23:00 09/08/18 23:00 09/08/18 23:00 09/09/18 04:00 Pulse Oximeter Continuous Start: 09/08/18 16: 18 Freq: RTQ4 Status: Active Document 09/09/18 04:00 SFL (Rec: 09/09/18 05:46 SFL [email or web address]) Pulse Oximetry Assessment Oxygen Saturation (92-100) 98 Oxygen Delivery Method Room Air Equipment Usage Equipment in Use Continuous SpO2 Machine # 9 Intake & Output 09/08/18 09/09/18 09/10/18 06:59 06:59 06:59 Intake Total 6473 Output Total 2600 Balance 3873 Weight 53.2 kg General appearance: PRESENT: mild distress Respiratory exam: PRESENT: unlabored Cardiovascular exam: PRESENT: RRR Pulses: PRESENT: +1 pedal pulses bilateral Vascular exam: PRESENT: normal capillary refill GI/Abdominal exam: PRESENT: soft Rectal exam: PRESENT: deferred Extremities exam: PRESENT: other - Left hip dressing clean dry and intact. Leg lengths are equal. Distal neurovascular examination is intact. Neurological exam: PRESENT: alert, awake, oriented to person, oriented to place , oriented to time, oriented to situation. ABSENT: motor sensory deficit Psychiatric exam: PRESENT: appropriate affect, normal mood. ABSENT: homicidal ideation, suicidal ideation Skin exam: PRESENT: dry, intact, warm. ABSENT: cyanosis, rash Results Laboratory Results: 09/08/18 09/08/18 10:59 10:59 Potassium 3.8 Blood Type O POSITIVE Antibody Screen NEGATIVE Impressions: Pelvis X-Ray 09/08/18 13:43 IMPRESSION: SATISFACTORY POSTOPERATIVE PELVIS. Status: Imported from PACS Assessment & Plan - Diagnosis (1) History of hip replacement Qualifiers: Laterality: left Qualified Code(s): Z96.642 - Presence of left artificial hip joint Is this a current diagnosis for this admission?: Yes Plan: Patient to be mobilized with physical therapy and weightbearing as tolerated basis. Anticipate fci facility placement on Thursday. - Time Time Spent with patient: 15-24 minutes Anticipated discharge: SNF Within: within 48 hours
[2018-09-09 07:34] LABS: HEMOGLOBIN 7.3 g/dL (12.0-15.5)
[2018-09-09] MEDS ORDERED: (PENDING PHARMACY ID) (Naloxegol Oxalate [Movantik] 25 MG) PO SCH (08:00)
[2018-09-09] MEDS ORDERED: TOPIRAMATE 25 MG TABLET PO SCH (08:00)
[2018-09-09] MEDS: LURASIDONE HCL 40 MG TABLET PO SCH (08:32)
[2018-09-09] MEDS ORDERED: NORMAL SALINE 250 ML IV PRN (08:36)
[2018-09-09] MEDS ORDERED: FLUDROCORTISONE ACETATE 0.1 MG TABLET PO SCH (10:00)
[2018-09-09] MEDS ORDERED: POTASSIUM CHLORIDE 10 MEQ CAPSULE.ER PO SCH (10:00)
[2018-09-09] MEDS ORDERED: SERTRALINE HCL 50 MG TABLET PO SCH (10:00)
[2018-09-09] MEDS ORDERED: AMITRIPTYLINE HCL 75 MG TABLET PO SCH (10:00)
[2018-09-09] MEDS ORDERED: (PENDING PHARMACY ID) (Lisinopril [Prinivil 2.5 Mg Tablet] 2.5 MG) PO SCH (10:00)
[2018-09-09] MEDS ORDERED: ASPIRIN 81 MG TABLET, ENT COATED PO SCH (10:00)
[2018-09-09] MEDS ORDERED: LISINOPRIL 5 MG TABLET PO SCH (10:00)
[2018-09-09] MEDS ORDERED: PRENATAL VITAMIN W DHA CAPSULE PO SCH (10:00)
[2018-09-09] MEDS ORDERED: AMITRIPTYLINE HCL 50 MG TABLET PO SCH (10:00)
[2018-09-09] MEDS: BENZTROPINE MESYLATE 1 MG TABLET PO SCH (10:06)
[2018-09-09] MEDS: OXYCODONE HCL SR 10 MG TABLET PO SCH (10:07)
[2018-09-09] MEDS: PREGABALIN 75 MG CAPSULE PO SCH (10:14)
[2018-09-09] MEDS: FUROSEMIDE 40 MG TABLET PO SCH (10:14)
[2018-09-09] MEDS: SENNOSIDES/DOCUSATE 8.6-50 MG 1 EACH TABLET PO SCH (10:35)
[2018-09-09 14:40] LABS: ABSOLUTE EOSINOPHILS # (AUTO) 0.2 10^3/uL (0.0-0.6); ABSOLUTE LYMPHOCYTES (AUTO) 1.9 10^3/uL (0.5-4.7); ABSOLUTE NEUT (AUTO) 7.7 10^3/uL (1.7-8.2); BASOPHILS % (AUTO) 0.4 % (0-2); EOSINOPHILS % (AUTO) 2.2 % (0-6); HEMATOCRIT 28.8 % (36.0-47.0); HEMOGLOBIN 9.2 g/dL (12.0-15.5); LYMPHOCYTES % (AUTO) 17.6 % (13-45); MEAN CORPUSCULAR HEMOGLOBIN 26.4 pg (27.0-33.4); MEAN CORPUSCULAR VOLUME 83 fl (80-97); MONOCYTES % (AUTO) 9.5 % (3-13); PLATELET COUNT 289 10^3/uL (150-450); RED BLOOD COUNT 3.49 10^6/uL (3.72-5.28); RED CELL DISTRIBUTION WIDTH 17.2 % (11.5-14.0); SEGMENTED NEUTROPHILS % (AUTO) 70.3 % (42-78); TOTAL CELLS COUNTED % (AUTO) 100 %; WHITE BLOOD COUNT 10.9 10^3/uL (4.0-10.5)
--- NOTE | 2018-09-09 14:53 | RADIOLOGY REPORT (SQ) ---
EXAM DESCRIPTION: CT HEAD WITHOUT COMPLETED DATE/TIME: 09/09/2018 2:38 pm REASON FOR STUDY: acute change in status, hx of CVA S72.052D UNSP FX HEAD OF LEFT FEMUR, SUBS FOR C LOS FX W ROUT COMPARISON: MR 11/07/2017, CT 09/02/2018 TECHNIQUE: Axial images acquired through the brain without intravenous contrast. Images reviewed wi th bone, brain and subdural windows. Additional sagittal and coronal reconstructions were generated. Images stored on PACS. All CT scanners at this facility use dose modulation, iterative reconstruction, and/or weight based d osing when appropriate to reduce radiation dose to as low as reasonably achievable (ALARA). [facility]: Dose Right [facility]: CareDose [facility]: Dose Right [facility]: Teradose 4D [facility]: [employer] RADIATION DOSE: CT Rad equipment meets quality standard of care and radiation dose reduction techniq ues were employed. CTDIvol: 48.6 mGy. DLP: 877 mGy-cm. mGy. LIMITATIONS: None. FINDINGS: VENTRICLES: Normal size and contour. CEREBRUM: No masses. No hemorrhage. No midline shift. No evidence for acute infarction. Normal gra y/white matter differentiation. No areas of low density in the white matter. CEREBELLUM: No masses. No hemorrhage. No alteration of density. No evidence for acute infarction. EXTRAAXIAL SPACES: No fluid collections. No masses. ORBITS AND GLOBE: No intra- or extraconal masses. Normal contour of globe without masses. CALVARIUM: No fracture. PARANASAL SINUSES: No fluid or mucosal thickening. SOFT TISSUES: No mass or hematoma. OTHER: No other significant finding. IMPRESSION: NORMAL BRAIN CT WITHOUT CONTRAST. EVIDENCE OF ACUTE STROKE: NO. COMMENT: Quality ID # [id number]: Final reports with documentation of one or more dose reduction techniques (e.g., Automated exposure control, adjustment of the mA and/or kV according to patient size, use of iterative reconstruction technique) TECHNICAL DOCUMENTATION: JOB ID: [id number] [employer]- All Rights Reserved Reading location - IP/workstation name: [email or web address]
--- NOTE | 2018-09-09 15:01 | PDOC CONSULTATION ---
Consultation Consult Date: 09/09/18 Attending physician:: JD PACE Consult reason:: Sudden change in mental status History of Present Illness Admission Date/PCP: 09/08/18 10:17 JOHN CANNON MD Patient complains of: Sudden change in mental status History of Present Illness: [place] is a 48 year old female who underwent a total arthroplasty of the left hip on 09/08/2018. She was having an unremarkable postoperative course with the usual postoperative pain and was noted to be mildly tachycardic and slightly anemic. She was given 1 unit of packed red blood cells starting about noon on 09/09/2018. Towards the end of her transfusion she became suddenly very poorly responsive with no verbal communication or response to verbal stimuli. With this sudden change in her mental status rapid response was called and I was consulted by default as the hospitalist application development team lead. Examination of the patient revealed a left hemiparesis although fairly dense nature with flaccid paresis of the left upper and lower extremities accompanying a fairly prominent left facial droop which is more pronounced than her pre-event state per nursing observation. Patient is not verbally responsive and contributes nothing as to her current circumstances nor can she at this point contribute anything in terms of past history. As a result all history and other information not derived from examination in this document is obtained through the medical records that are available. Past Medical History Cardiac Medical History: Reports: Hyperlipidema, Hypertension Denies: Atrial Fibrillation, Congestive Heart Failure, Coronary Artery Disease, Myocardial Infarction, Peripheral Vascular Disease, Pulmonary Embolism , Heart Murmur Pulmonary Medical History: Reports: Pneumonia Denies: Asthma, Bronchitis, Chronic Obstructive Pulmonary Disease (COPD), Respiratory Failure, Sleep Apnea, Tuberculosis EENT Medical History: Reports: None Neurological Medical History: Reports: Ischemic CVA Denies: Hemorrhagic CVA, Seizures Endocrine Medical History: Reports: Diabetes Mellitus Type 2 Denies: Diabetes Mellitus Type 1, Hyperthyroidism, Hypothyroidism Renal/ Medical History: Denies: Chronic Kidney Disease, Nephrolithiasis Malignancy Medical History: Reports: Ovarian Cancer Denies: Breast Cancer, Cervical Cancer, Leukemia, Lung Cancer GI Medical History: Reports: Gastroesophageal Reflux Disease Denies: Cirrhosis, Crohn's Disease, Hepatitis, Hiatal Hernia Musculoskeltal Medical History: Reports: Arthritis Denies: Fibromyalgia Skin Medical History: Denies: Eczema, Psoriasis Psychiatric Medical History: Reports: Bipolar Disorder, Depression Denies: Dementia, Post Traumatic Stress Disorder Traumatic Medical History: Reports: None Hematology: Reports: Anemia Denies: Hemophilia, Sickle Cell Disease Infectious Medical History: Reports: None Denies: HIV Past Surgical History Past Surgical History: Reports: Cholecystectomy, Gastric Bypass Surgery, Hysterectomy, Orthopedic Surgery - LLE, left jaw, total left hip arthroplasty on 09/08/2018. Denies: Amputation, Appendectomy, Section, Colostomy, Coronary Artery Bypass Graft, Herniorrhaphy, Mastectomy, Pacemaker, Tonsillectomy, Tubal Ligation Social History Information Source: [facility] Records Smoking Status: Never Smoker Frequency of Alcohol Use: None Hx Recreational Drug Use: No Drugs: None Hx Prescription Drug Abuse: No - Advance Directive Resuscitation Status: Full Code Family History Family History: DM, Hypertension Parental Family History Reviewed: No - From records Children Family History Reviewed: No - From records Sibling(s) Family History Reviewed.: No - From records Medication/Allergy Home Medications: RX: Amitriptyline HCl [Elavil 50 mg Tablet] 150 mg PO DAILY 02/18/18 RX: Benztropine Mesylate 1 mg PO BID 02/18/18 RX: Biotin 5,000 mcg PO WBRKFST 02/18/18 RX: Cholecalciferol (Vitamin D3) [Vitamin D3 1000 Unit Tablet] 1,000 unit PO WBRKFST 02/18/18 RX: Cyanocobalamin (Vitamin B-12) [Vitamin B-12 1000 mcg Tablet] 1,000 mcg PO WBRKFST 02/18/18 RX: Esomeprazole Magnesium [Nexium] 40 mg PO DAILY 02/18/18 RX: Gabapentin [Neurontin 300 mg Capsule] 300 mg PO TID 02/18/18 RX: Levothyroxine Sodium [Synthroid 0.088 mg Tablet] 0.088 mg PO Q6AM 02/18/18 RX: Lurasidone HCl [Latuda] 40 mg PO BIDBS 02/18/18 RX: Naloxegol Oxalate [Movantik] 25 mg PO QAM 02/18/18 RX: Ondansetron HCl [Zofran 4 mg Tablet] 4 mg PO BIDP PRN 02/18/18 RX: Oxycodone HCl [Oxycodone HCl 10 MG Tablet] 10 mg PO Q4HP PRN 02/18/18 RX: Topiramate [Topamax] 50 mg PO QPM 02/18/18 Carvedilol [Coreg 3.125 mg Tablet] 3.125 mg PO Q12 #60 tablet 02/28/18 RX: Fludrocortisone Acetate [Florinef 0.1 mg Tablet] 0.05 mg PO DAILY #30 tablet 02/28/18 RX: Lisinopril [Prinivil 2.5 mg Tablet] 2.5 mg PO DAILY #30 tablet 02/28/18 Meloxicam [Mobic] 7.5 mg PO DAILY 08/20/18 Sertraline HCl [Zoloft 50 mg Tablet] 50 mg PO DAILY 08/20/18 Alprazolam [Xanax 0.5 mg Tablet] 0.5 mg PO DAILYP PRN 09/08/18 Furosemide [Lasix 20 mg Tablet] 40 mg PO BID 09/08/18 Mv-Min/Iron/Folic/Calcium/Vitk [Women's Multivitamin Tablet] 1 tab PO DAILY RX: Aspirin [Ecotrin] 81 mg PO DAILY 09/08/18 RX: Ibuprofen 800 mg PO TIDP PRN 09/08/18 RX: Potassium Chloride 20 meq PO DAILY 09/08/18 Topiramate [Topamax] 25 mg PO QAM 09/08/18 Allergies/Adverse Reactions: cilastatin [From Primaxin IV] Allergy (Intermediate, Verified 09/08/18 10:48) Facial swelling imipenem [From Primaxin IV] Allergy (Intermediate, Verified 09/08/18 10:48) Facial swelling Penicillins Allergy (Mild, Verified 09/08/18 10:48) Generalized rash Sulfa (Sulfonamide Antibiotics) Allergy (Mild, Verified 09/08/18 10:48) Generalized rash Review of Systems ROS unobtainable: Due to mental status Physical Exam Vital Signs: Temp Pulse Resp BP Pulse Ox 101.7 F H 114 H 16 98/55 L 96 09/09/18 13:45 09/09/18 13:45 09/09/18 13:45 09/09/18 13:45 09/09/18 13:45 Pulse Oximeter Continuous Start: 09/08/18 16: 18 Freq: RTQ4 Status: Active Document 09/09/18 11:33 [facility] (Rec: 09/09/18 11:34 [facility] [email or web address]) Pulse Oximetry Assessment Oxygen Saturation (92-100) 99 Oxygen Delivery Method Room Air Fraction of Inspired Oxygen (FIO2) 21 Equipment Usage Equipment in Use Continuous SpO2 Machine # N-9 Intake & Output 09/07/18 09/08/18 09/09/18 23:59 23:59 23:59 Intake Total 4973 0 Output Total 2600 Balance 2373 0 Weight 53.2 kg General appearance: PRESENT: no acute distress, well-developed, well-nourished, other - Not responsive to verbal stimuli. Responsive to painful stimuli. Head exam: PRESENT: atraumatic, normocephalic Eye exam: PRESENT: conjunctiva pink. ABSENT: periorbital swelling, other - Eyes fixed forward gaze, pupils are equal round and responsive to light. Ear exam: PRESENT: normal external ear exam. ABSENT: bleeding, drainage Mouth exam: PRESENT: dry mucosa, neck supple Neck exam: ABSENT: JVD, thyromegaly, tracheal deviation Respiratory exam: PRESENT: clear to auscultation rona, symmetrical, unlabored Cardiovascular exam: PRESENT: RRR. ABSENT: clicks, diastolic murmur, gallop, rubs, systolic murmur Vascular exam: PRESENT: normal capillary refill. ABSENT: pallor GI/Abdominal exam: ABSENT: normal bowel sounds, soft Rectal exam: PRESENT: deferred Extremities exam: ABSENT: joint swelling, pedal edema Musculoskeletal exam: PRESENT: other - Fresh surgical incision with dressing left lateral hip. ABSENT: deformity, dislocation Neurological exam: PRESENT: other - Obtunded and unresponsive Psychiatric exam: PRESENT: other - Obtunded and unresponsive Skin exam: ABSENT: jaundice, rash, urticaria Results Laboratory Results: 09/09/18 05:45 09/09/18 05:45 09/08/18 09/09/18 09/09/18 10:59 05:45 05:45 WBC 10.2 RBC 2.81 L Hgb 7.3 L Hct 22.8 L MCV 81 MCH 25.9 L MCHC 31.9 L RDW 17.4 H Plt Count 288 Sodium 138.9 Potassium 3.7 Chloride 106 Carbon Dioxide 25 Anion Gap 8 BUN 8 Creatinine 0.55 Est GFR ( Amer) > 60 Est GFR (Non-Af Amer) > 60 Glucose 98 Calcium 7.3 L Blood Type O POSITIVE Antibody Screen NEGATIVE Impressions: Pelvis X-Ray 09/08/18 13:43 IMPRESSION: SATISFACTORY POSTOPERATIVE PELVIS. Assessment & Plan - Diagnosis (1) Acute encephalopathy Is this a current diagnosis for this admission?: Yes Plan: Evaluation of the acute encephalopathy be undertaken with CT scan of the head without contrast, a comprehensive metabolic profile and CBC. Patient will be transferred to the third floor for further management of her encephalopathy. I strongly suspect that the patient has a new ischemic infarct involving the right hemisphere most likely in the right middle cerebral artery. An MRI will be obtained on a non-stat basis to evaluate this possibility. (2) History of hip replacement Qualifiers: Laterality: left Qualified Code(s): Z96.642 - Presence of left artificial hip joint Is this a current diagnosis for this admission?: Yes Plan: Patient underwent a total left hip arthroplasty on 08/30/[address] Jd Pace. - Time Time Spent: 50 to 70 Minutes Medications reviewed and adjusted accordingly: Yes - Plan Summary Plan Summary: She removed to the third floor for probable post stroke care.
[2018-09-09 15:04] LABS: ALANINE AMINOTRANSFERASE 30 U/L (9-52); ALBUMIN 1.8 g/dL (3.5-5.0); ALKALINE PHOSPHATASE 175 U/L (38-126); ANION GAP 7 (5-19); ASPARTATE AMINO TRANSFERASE 40 U/L (14-36); BILIRUBIN,TOTAL 0.3 mg/dL (0.2-1.3); BLOOD UREA NITROGEN 8 mg/dL (7-20); CALCIUM 7.5 mg/dL (8.4-10.2); CARBON DIOXIDE 25 mmol/L (22-30); CHLORIDE 108 mmol/L (98-107); GLUCOSE 84 mg/dL (75-110); SODIUM 139.7 mmol/L (137-145); TOTAL PROTEIN 4.1 g/dL (6.3-8.2)
[2018-09-09] MEDS ORDERED: DEXTROSE 50%-WATER 25 GM/50 ML DISP.SYRIN IV PRN ×2 (15:06)
[2018-09-09] MEDS ORDERED: GLUCAGON,HUMAN RECOMB 1 MG INJ SUBCUT PRN (15:06)
[2018-09-09] MEDS ORDERED: DEXTROSE 40% GEL 15 GM TUBE PO PRN ×2 (15:06)
[2018-09-09 17:20] LABS: TROPONIN I < 0.012 ng/mL
--- NOTE | 2018-09-09 19:20 | RADIOLOGY REPORT (SQ) ---
EXAM DESCRIPTION: MRA HEAD WITHOUT COMPLETED DATE/TIME: 09/09/2018 6:44 pm REASON FOR STUDY: acute change in mental status with left hemiparesis S72.052D UNSP FX HEAD OF LEFT FEMUR, SUBS FOR CLOS FX W ROUT COMPARISON: MR head 11/07/2017 TECHNIQUE: Axial 3-D [id number] acquisition imaging performed through the brain in the area of t he [place]. Images reformatted using 3-D MIPS. LIMITATIONS: None. FINDINGS: SOURCE IMAGES: No unexpected findings on source images. No large masses. 3-D MIP: No aneurysm. No occlusions. No significant stenosis. OTHER: No other significant finding. IMPRESSION: NORMAL MRA OF THE [place]. TECHNICAL DOCUMENTATION: JOB ID: [id number] [employer]- All Rights Reserved Reading location - IP/workstation name: [email or web address]
--- NOTE | 2018-09-09 19:25 | RADIOLOGY REPORT (SQ) ---
EXAM DESCRIPTION: MRI HEAD WITHOUT COMPLETED DATE/TIME: 09/09/2018 6:37 pm REASON FOR STUDY: acute change in mental status with left hemiparesis S72.052D UNSP FX HEAD OF LEFT FEMUR, SUBS FOR CLOS FX W ROUT COMPARISON: CT 09/09/2018 MR 11/07/2017 TECHNIQUE: Multiplanar imaging includes non-contrasted T1, T2, FLAIR, and diffusion with ADC map seq uences. Images stored on PACS. LIMITATIONS: None. FINDINGS: ANATOMY: No anomalies. Normal vascular flow voids. Pituitary fossa normal. CSF SPACES: Normal in size and contour. No hemorrhage. CEREBRUM: Sulci and gyri normal in size and contour. Normal white matter signal on FLAIR imaging. No evidence of hemorrhage, mass, or extraaxial fluid collection. POSTERIOR FOSSA: No signal alteration. No hemorrhage. No edema, masses or mass effect. Internal haroon tory canals, cerebello-pontine angles, mastoids normal. DIFFUSION IMAGING: Negative for acute or sub-acute infarction. ORBITS: No masses. Globes normal. PARANASAL SINUSES: No fluid levels. Mucosa normal. OTHER: No other significant finding. IMPRESSION: NORMAL MRI OF THE BRAIN WITHOUT INTRAVENOUS GADOLINIUM CONTRAST. EVIDENCE OF ACUTE STROKE: NO. TECHNICAL DOCUMENTATION: JOB ID: [id number] [employer]- All Rights Reserved Reading location - IP/workstation name: [email or web address]
[2018-09-09 21:40] LABS: CREATINE KINASE MB 0.89 ng/mL (<4.55)
[2018-09-09 21:44] LABS: TROPONIN I < 0.012 ng/mL
[2018-09-09] MEDS: NORMAL SALINE 1000 ML 1,000 ML IV PRN (22:14)
[2018-09-10 03:35] LABS: HEMATOCRIT 31.2 % (36.0-47.0); MEAN CORPUSCULAR HEMOGLOBIN 26.1 pg (27.0-33.4); MEAN CORPUSCULAR VOLUME 81 fl (80-97); PLATELET COUNT 323 10^3/uL (150-450); RED BLOOD COUNT 3.84 10^6/uL (3.72-5.28); RED CELL DISTRIBUTION WIDTH 17.1 % (11.5-14.0); WHITE BLOOD COUNT 13.2 10^3/uL (4.0-10.5)
[2018-09-10 03:49] LABS: CHOLESTEROL 60.42 mg/dL (0-200); TRIGLYCERIDES 61 mg/dL (<150)
[2018-09-10 03:58] LABS: CREATINE KINASE MB 0.65 ng/mL (<4.55)
[2018-09-10 04:00] LABS: DIRECT LDL 38 mg/dL (<100)
[2018-09-10 04:07] LABS: TROPONIN I < 0.012 ng/mL
--- NOTE | 2018-09-10 07:44 | PDOC PROGRESS REPORT ---
Subjective Progress Note for:: 09/10/18 Reason For Visit: LEFT FEMORAL NECK FRACTURE 48-year-old white female now postop day 2 status post left hip conversion arthroplasty. Patient with a "episode" yesterday of uncertain etiology. She received 1 unit of packed red blood cells with significant improvement in her hematocrit suggesting possibly a laboratory error with the first lab of the day. The patient this morning is complaining about being hungry and needing more pain medicine. Physical Exam Vital Signs: Temp Pulse Resp BP Pulse Ox 38.1 C H 103 H 18 119/57 L 96 09/10/18 03:17 09/10/18 04:00 09/10/18 04:00 09/10/18 04:00 09/10/18 04:00 Pulse Oximeter Continuous Start: 09/08/18 16: 18 Freq: RTQ4 Status: Active Document 09/10/18 03:51 LDA (Rec: 09/10/18 03:51 LDA [id number]) Pulse Oximetry Assessment Oxygen Saturation (92-100) 96 Oxygen Delivery Method Room Air Fraction of Inspired Oxygen (FIO2) 21 Equipment Usage Equipment in Use Continuous SpO2 Machine # [id number] Intake & Output 09/09/18 09/10/18 09/11/18 06:59 06:59 06:59 Intake Total 6473 550 Output Total 2600 Balance 3873 550 Weight 53.2 kg 70.4 kg Physical Exam: Middle-aged white female lying in a hospital bed. Does not appear to be unduly uncomfortable this morning. General appearance: PRESENT: no acute distress, mild distress Head exam: PRESENT: normocephalic Respiratory exam: PRESENT: unlabored Cardiovascular exam: PRESENT: RRR Pulses: PRESENT: +1 pedal pulses bilateral Vascular exam: PRESENT: normal capillary refill GI/Abdominal exam: PRESENT: soft Rectal exam: PRESENT: deferred Musculoskeletal exam: PRESENT: other - Left hip dressing with a small amount of old drainage. There is mild tenderness to palpation. Leg lengths are equal. Distal neurovascular examination is intact. Results Laboratory Results: 09/10/18 03:10 09/09/18 14:30 09/08/18 09/09/18 09/09/18 10:59 05:45 14:30 WBC 10.9 H RBC 3.49 L Hgb 9.2 L Hct 28.8 L MCV 83 MCH 26.4 L MCHC 32.0 RDW 17.2 H Plt Count 289 Seg Neutrophils % 70.3 Lymphocytes % 17.6 Monocytes % 9.5 Eosinophils % 2.2 Basophils % 0.4 Absolute Neutrophils 7.7 Absolute Lymphocytes 1.9 Absolute Monocytes 1.0 Absolute Eosinophils 0.2 Absolute Basophils 0.0 Sodium 138.9 Potassium 3.7 Chloride 106 Carbon Dioxide 25 Anion Gap 8 BUN 8 Creatinine 0.55 Est GFR ( Amer) > 60 Est GFR (Non-Af Amer) > 60 Glucose 98 Calcium 7.3 L Magnesium Total Bilirubin AST ALT Alkaline Phosphatase Total Protein Albumin Triglycerides Cholesterol LDL Cholesterol Direct VLDL Cholesterol HDL Cholesterol Blood Type O POSITIVE Antibody Screen NEGATIVE 09/09/18 09/10/18 09/10/18 14:30 03:10 03:10 WBC 13.2 H RBC 3.84 Hgb 10.0 L Hct 31.2 L MCV 81 MCH 26.1 L MCHC 32.0 RDW 17.1 H Plt Count 323 Seg Neutrophils % Lymphocytes % Monocytes % Eosinophils % Basophils % Absolute Neutrophils Absolute Lymphocytes Absolute Monocytes Absolute Eosinophils Absolute Basophils Sodium 139.7 Potassium 4.0 Chloride 108 H Carbon Dioxide 25 Anion Gap 7 BUN 8 Creatinine 0.62 Est GFR ( Amer) > 60 Est GFR (Non-Af Amer) > 60 Glucose 84 Calcium 7.5 L Magnesium 1.9 Total Bilirubin 0.3 AST 40 H ALT 30 Alkaline Phosphatase 175 H Total Protein 4.1 L Albumin 1.8 L Triglycerides 61 Cholesterol 60.42 LDL Cholesterol Direct 38 VLDL Cholesterol 12.0 HDL Cholesterol 31 L Blood Type Antibody Screen 09/09/18 09/09/18 09/09/18 14:30 14:30 16:44 Creatine Kinase 286 H CK-MB (CK-2) Cancelled 1.40 Troponin I Cancelled < 0.012 09/09/18 09/09/18 09/10/18 21:05 21:05 03:10 Creatine Kinase 229 H 193 H CK-MB (CK-2) 0.89 Troponin I < 0.012 09/10/18 03:10 Creatine Kinase CK-MB (CK-2) 0.65 Troponin I < 0.012 Impressions: Pelvis X-Ray 09/08/18 13:43 IMPRESSION: SATISFACTORY POSTOPERATIVE PELVIS. Head CT 09/09/18 00:00 IMPRESSION: NORMAL BRAIN CT WITHOUT CONTRAST. EVIDENCE OF ACUTE STROKE: NO. Head MRI 09/09/18 00:00 IMPRESSION: NORMAL MRI OF THE BRAIN WITHOUT INTRAVENOUS GADOLINIUM CONTRAST. EVIDENCE OF ACUTE STROKE: NO. Brain MRI with MRA 09/09/18 15:15 IMPRESSION: NORMAL MRA OF [facility] [place] [facility] [place]. Status: Imported from PACS Assessment & Plan - Diagnosis (1) History of hip replacement Qualifiers: Laterality: left Qualified Code(s): Z96.642 - Presence of left artificial hip joint Is this a current diagnosis for this admission?: Yes Plan: 48-year-old status post left hip conversion arthroplasty with what appears to be a clinical stable course at this point. We will continue mobilization with physical therapy and anticipate care home facility placement tomorrow. - Time Time Spent with patient: 15-24 minutes Anticipated discharge: SNF Within: within 24 hours
--- NOTE | 2018-09-10 08:24 | EKG REPORT ---
SEVERITY:- ABNORMAL ECG - SINUS TACHYCARDIA BORDERLINE LEFT AXIS DEVIATION ABNRM R PROG, CONSIDER ASMI OR LEAD PLACEMENT : Confirmed by: Maria Esther Ortega MD 10-Sep-2018 08:23:34
[2018-09-10] MEDS: OXYCODONE HCL IR 5 MG TABLET PO PRN ×3 (10:27→22:39)
[2018-09-10] MEDS: NORMAL SALINE 1000 ML 1,000 ML IV PRN (10:28)
[2018-09-10] MEDS ORDERED: NORMAL SALINE 1000 ML 1,000 ML IV PRN (11:47)
[2018-09-10] MEDS: APIXABAN 2.5 MG TABLET PO SCH (13:58)
[2018-09-10] MEDS: FLUDROCORTISONE ACETATE 0.1 MG TABLET PO SCH (13:58)
--- NOTE | 2018-09-10 14:13 | PDOC PROGRESS REPORT ---
Subjective Progress Note for:: 09/10/18 Subjective:: 09/09/18: HILTON MI is a 48 year old female who underwent a total arthroplasty of the left hip on 09/08/2018. She was having an unremarkable postoperative course with the usual postoperative pain and was noted to be mildly tachycardic and slightly anemic. She was given 1 unit of packed red blood cells starting about noon on 09/09/2018. Towards the end of her transfusion she became suddenly very poorly responsive with no verbal communication or response to verbal stimuli. With this sudden change in her mental status rapid response was called and I was consulted by default as the hospitalist steamblaster. Examination of the patient revealed a left hemiparesis although fairly dense nature with flaccid paresis of the left upper and lower extremities accompanying a fairly prominent left facial droop which is more pronounced than her pre-event state per nursing observation. Patient is not verbally responsive and contributes nothing as to her current circumstances nor can she at this point contribute anything in terms of past history. As a result all history and other information not derived from examination in this document is obtained through the medical records that are available. 09/10/18: Hilton has made exceptionally good progress since yesterday afternoon. She became more alert yesterday and has essentially returned to her pre-event status by this morning. She is feeling hungry and would like to get up and be active. She states that she still has pain in her left hip area and has taken a pain pill to help with that and would like to do physical therapy a little later. She has not had a headache, nausea, vomiting or any new neurologic symptoms. Her left-sided weakness is back to her pre-event baseline and she has no right-sided weakness. She feels like her short and long-term memory are intact and she is having no difficulty communicating verbally or understanding anything that is spoken to her. On examination her neurologic evaluation shows a mild left hemiparesis affecting her left upper extremity more so than her left lower extremity and no left facial weakness is discernible at this time. She is communicative and very spontaneous. As a result of her excellent recovery I will restart her usual medications as appropriate although I will discontinue some of her prehospital medications at this time. Most importantly she will be restarted on her 81 mg aspirin daily and she should also be on prophylactic therapy for DVT, thus I will start her on apixaban 2.5 mg p.o. twice daily. I will continue to follow along through tomorrow to assure that her status remains stable but at this point she is very much medically stable and planning for her postoperative rehabilitation can begin from a medical standpoint. Patient will also be returned to her normal physical therapy activities and will be started back on a regular diet. Reason For Visit: LEFT FEMORAL NECK FRACTURE Physical Exam Vital Signs: Temp Pulse Resp BP Pulse Ox 100.6 F H 97 18 119/57 L 97 09/10/18 03:17 09/10/18 07:00 09/10/18 04:00 09/10/18 04:00 09/10/18 08:30 Pulse Oximeter Continuous Start: 09/08/18 16: 18 Freq: RTQ4 Status: Active Document 09/10/18 08:30 HCR (Rec: 09/10/18 08:31 HCR [id number]) Pulse Oximetry Assessment Oxygen Saturation (92-100) 97 Oxygen Delivery Method Room Air Fraction of Inspired Oxygen (FIO2) 21 Equipment Usage Equipment in Use Continuous SpO2 Machine # 9 Intake & Output 09/08/18 09/09/18 09/10/18 23:59 23:59 23:59 Intake Total 4973 2050 917 Output Total 2600 Balance 2373 2050 917 Weight 53.2 kg 70.4 kg General appearance: PRESENT: no acute distress, cooperative Head exam: PRESENT: atraumatic, normocephalic Eye exam: PRESENT: conjunctiva pink, EOMI Ear exam: PRESENT: normal external ear exam. ABSENT: bleeding, drainage Mouth exam: PRESENT: neck supple, tongue midline Neck exam: PRESENT: full ROM. ABSENT: meningismus, thyromegaly, tracheal deviation Respiratory exam: PRESENT: clear to auscultation rona, symmetrical, unlabored Cardiovascular exam: PRESENT: RRR. ABSENT: clicks, diastolic murmur, gallop, rubs, systolic murmur Vascular exam: PRESENT: normal capillary refill. ABSENT: pallor GI/Abdominal exam: PRESENT: normal bowel sounds, soft Rectal exam: PRESENT: deferred Extremities exam: ABSENT: joint swelling, pedal edema Musculoskeletal exam: PRESENT: tenderness - Left hip region.. ABSENT: deformity , dislocation Neurological exam: PRESENT: alert, awake, oriented to person, oriented to place , oriented to time, oriented to situation, CN II-XII grossly intact, motor sensory deficit - Mild left hemiparesis primarily affecting the left upper extremity. ABSENT: aphasic Psychiatric exam: PRESENT: appropriate affect, normal mood Skin exam: ABSENT: jaundice, rash, urticaria Results Laboratory Results: 09/10/18 03:10 09/09/18 14:30 09/09/18 09/09/18 09/10/18 14:30 14:30 03:10 WBC 10.9 H 13.2 H RBC 3.49 L 3.84 Hgb 9.2 L 10.0 L Hct 28.8 L 31.2 L MCV 83 81 MCH 26.4 L 26.1 L MCHC 32.0 32.0 RDW 17.2 H 17.1 H Plt Count 289 323 Seg Neutrophils % 70.3 Lymphocytes % 17.6 Monocytes % 9.5 Eosinophils % 2.2 Basophils % 0.4 Absolute Neutrophils 7.7 Absolute Lymphocytes 1.9 Absolute Monocytes 1.0 Absolute Eosinophils 0.2 Absolute Basophils 0.0 Sodium 139.7 Potassium 4.0 Chloride 108 H Carbon Dioxide 25 Anion Gap 7 BUN 8 Creatinine 0.62 Est GFR ( Amer) > 60 Est GFR (Non-Af Amer) > 60 Glucose 84 Calcium 7.5 L Magnesium 1.9 Total Bilirubin 0.3 AST 40 H ALT 30 Alkaline Phosphatase 175 H Total Protein 4.1 L Albumin 1.8 L Triglycerides Cholesterol LDL Cholesterol Direct VLDL Cholesterol HDL Cholesterol 09/10/18 03:10 WBC RBC Hgb Hct MCV MCH MCHC RDW Plt Count Seg Neutrophils % Lymphocytes % Monocytes % Eosinophils % Basophils % Absolute Neutrophils Absolute Lymphocytes Absolute Monocytes Absolute Eosinophils Absolute Basophils Sodium Potassium Chloride Carbon Dioxide Anion Gap BUN Creatinine Est GFR ( Amer) Est GFR (Non-Af Amer) Glucose Calcium Magnesium Total Bilirubin AST ALT Alkaline Phosphatase Total Protein Albumin Triglycerides 61 Cholesterol 60.42 LDL Cholesterol Direct 38 VLDL Cholesterol 12.0 HDL Cholesterol 31 L 09/09/18 09/09/18 09/09/18 14:30 14:30 16:44 Creatine Kinase 286 H CK-MB (CK-2) Cancelled 1.40 Troponin I Cancelled < 0.012 09/09/18 09/09/18 09/10/18 21:05 21:05 03:10 Creatine Kinase 229 H 193 H CK-MB (CK-2) 0.89 Troponin I < 0.012 09/10/18 03:10 Creatine Kinase CK-MB (CK-2) 0.65 Troponin I < 0.012 Impressions: Pelvis X-Ray 09/08/18 13:43 IMPRESSION: SATISFACTORY POSTOPERATIVE PELVIS. Head CT 09/09/18 00:00 IMPRESSION: NORMAL BRAIN CT WITHOUT CONTRAST. EVIDENCE OF ACUTE STROKE: NO. Head MRI 09/09/18 00:00 IMPRESSION: NORMAL MRI OF THE BRAIN WITHOUT INTRAVENOUS GADOLINIUM CONTRAST. EVIDENCE OF ACUTE STROKE: NO. Brain MRI with MRA 09/09/18 15:15 IMPRESSION: NORMAL MRA OF THE [place] [facility] [place]. Assessment & Plan - Diagnosis (1) Acute encephalopathy Is this a current diagnosis for this admission?: Yes Plan: 09/09/18: Evaluation of the acute encephalopathy be undertaken with CT scan of the head without contrast, a comprehensive metabolic profile and CBC. Patient will be transferred to the third floor for further management of her encephalopathy. I strongly suspect that the patient has a new ischemic infarct involving the right hemisphere most likely in the right middle cerebral artery. An MRI will be obtained on a non-stat basis to evaluate this possibility. 09/10/18: Hilton's acute encephalopathy seems to have resolved with her recovery being complete at this point within less than 24 hours of the onset of her symptoms. This was most likely a transient ischemic attack (TIA) given the results of the MRI and MRA. She will be started back on aspirin therapy and she will have postoperative apixaban therapy initiated for DVT control in a post orthopedic surgical patient. Patient will also be restarted on her usual medications with a few exceptions. She will be observed through tomorrow and further medication decisions can be made over that time. She will be started back on a normal diet and she will start back on her regular physical therapy schedule. (2) History of hip replacement Qualifiers: Laterality: left Qualified Code(s): Z96.642 - Presence of left artificial hip joint Is this a current diagnosis for this admission?: Yes Plan: Patient underwent a total left hip arthroplasty on 08/30/[address] Jd Bet[address]ourt. Dr. Betancourt is managing her postoperative care. This patient would be an excellent candidate for inpatient rehab and as such I have informed discharge planning that she could certainly be evaluated by the inpatient rehab center if they would be interested in having her under their care. (3) Adrenal insufficiency Is this a current diagnosis for this admission?: Yes Plan: The patient will be restarted on Florinef 0.1 mg p.o. daily. (4) Anemia Qualifiers: Anemia type: other cause Other causes of anemia: acute posthemorrhagic Qualified Code(s): D62 - Acute posthemorrhagic anemia Is this a current diagnosis for this admission?: Yes Plan: The patient has received 2 units of packed red blood cells and her hemoglobin is now acceptable at 10.0, and will be observed on a daily basis. (5) Hypothyroidism Qualifiers: Hypothyroidism type: unspecified Qualified Code(s): E03.9 - Hypothyroidism , unspecified Is this a current diagnosis for this admission?: Yes Plan: Patient will be continued on her home medication of levothyroxine 88 mcg p.o. daily. - Time Time Spent with patient: 35 or more minutes Medications reviewed and adjusted accordingly: Yes Anticipated discharge: Acute Rehab Within: within 72 hours
[2018-09-10 16:07] LABS: BLOOD UREA NITROGEN 6 mg/dL (7-20); CALCIUM 7.5 mg/dL (8.4-10.2); GLUCOSE 90 mg/dL (75-110); POTASSIUM 3.7 mmol/L (3.6-5.0)
[2018-09-10 16:10] LABS: ABSOLUTE EOSINOPHILS # (AUTO) 0.3 10^3/uL (0.0-0.6); ABSOLUTE LYMPHOCYTES (AUTO) 1.9 10^3/uL (0.5-4.7); ABSOLUTE MONOCYTES (AUTO) 0.8 10^3/uL (0.1-1.4); ABSOLUTE NEUT (AUTO) 8.2 10^3/uL (1.7-8.2); BASOPHILS % (AUTO) 0.3 % (0-2); EOSINOPHILS % (AUTO) 2.3 % (0-6); HEMATOCRIT 27.7 % (36.0-47.0); HEMOGLOBIN 9.1 g/dL (12.0-15.5); MEAN CORPUSCULAR HEMOGLOBIN 26.7 pg (27.0-33.4); MEAN CORPUSCULAR HGB CONC 32.8 g/dL (32.0-36.0); MEAN CORPUSCULAR VOLUME 82 fl (80-97); MONOCYTES % (AUTO) 7.1 % (3-13); PLATELET COUNT 307 10^3/uL (150-450); RED CELL DISTRIBUTION WIDTH 17.3 % (11.5-14.0); SEGMENTED NEUTROPHILS % (AUTO) 73.3 % (42-78); TOTAL CELLS COUNTED % (AUTO) 100 %; WHITE BLOOD COUNT 11.2 10^3/uL (4.0-10.5)
[2018-09-10 16:12] LABS: ANION GAP 6 (5-19); CARBON DIOXIDE 25 mmol/L (22-30); CHLORIDE 111 mmol/L (98-107); SODIUM 142.1 mmol/L (137-145)
[2018-09-10] MEDS: CLONAZEPAM 1 MG TABLET PO SCH (22:38)
[2018-09-10] MEDS: ASPIRIN 81 MG TABLET, ENT COATED PO SCH (22:39)
[2018-09-10] MEDS: TOPIRAMATE 25 MG TABLET PO SCH (22:39)
[2018-09-11] MEDS: LEVOTHYROXINE SODIUM 0.088 MG TABLET PO SCH (05:17)
[2018-09-11] MEDS: OXYCODONE HCL IR 5 MG TABLET PO PRN ×3 (05:18→19:22)
[2018-09-11 05:25] LABS: HEMATOCRIT 23.9 % (36.0-47.0); MEAN CORPUSCULAR HEMOGLOBIN 26.5 pg (27.0-33.4); MEAN CORPUSCULAR HGB CONC 32.4 g/dL (32.0-36.0); MEAN CORPUSCULAR VOLUME 82 fl (80-97); PLATELET COUNT 253 10^3/uL (150-450); RED BLOOD COUNT 2.93 10^6/uL (3.72-5.28); RED CELL DISTRIBUTION WIDTH 17.6 % (11.5-14.0); WHITE BLOOD COUNT 7.5 10^3/uL (4.0-10.5)
[2018-09-11 05:29] LABS: HEMOGLOBIN 7.8 g/dL (12.0-15.5)
--- NOTE | 2018-09-11 07:29 | PDOC PROGRESS REPORT ---
Subjective Progress Note for:: 09/11/18 Reason For Visit: LEFT FEMORAL NECK FRACTURE 48-year-old white female status post left hip conversion arthroplasty, postop day 3. Patient much clearer and alert this morning. Limited progress with physical therapy yesterday because of increasing complaints of pain. Physical Exam Vital Signs: Temp Pulse Resp BP Pulse Ox 37.3 C 76 16 107/56 L 94 09/11/18 03:35 09/11/18 03:35 09/11/18 03:35 09/11/18 03:35 09/11/18 04:00 Pulse Oximeter Continuous Start: 09/08/18 16: 18 Freq: RTQ4 Status: Active Document 09/11/18 04:00 LRO (Rec: 09/11/18 04:21 LRO [id number]) Pulse Oximetry Assessment Oxygen Saturation (92-100) 94 Oxygen Delivery Method Room Air Fraction of Inspired Oxygen (FIO2) 21 Equipment Usage Equipment in Use Continuous SpO2 Machine # 9 Intake & Output 09/10/18 09/11/18 09/12/18 06:59 06:59 06:59 Intake Total 550 1920 Output Total 500 Balance 550 1420 Weight 70.4 kg 68.5 kg General appearance: PRESENT: no acute distress, mild distress Respiratory exam: PRESENT: unlabored Cardiovascular exam: PRESENT: RRR Pulses: PRESENT: +1 pedal pulses bilateral Vascular exam: PRESENT: normal capillary refill GI/Abdominal exam: PRESENT: soft Rectal exam: PRESENT: deferred Neurological exam: PRESENT: alert, awake, oriented to person, oriented to place , oriented to time, oriented to situation. ABSENT: motor sensory deficit Psychiatric exam: PRESENT: appropriate affect, normal mood. ABSENT: homicidal ideation, suicidal ideation Skin exam: PRESENT: dry, intact, warm. ABSENT: cyanosis, rash Results Laboratory Results: 09/11/18 04:57 09/10/18 15:36 09/10/18 09/10/18 09/11/18 15:36 15:36 04:57 WBC 11.2 H 7.5 RBC 3.40 L 2.93 L Hgb 9.1 L 7.8 L Hct 27.7 L 23.9 L MCV 82 82 MCH 26.7 L 26.5 L MCHC 32.8 32.4 RDW 17.3 H 17.6 H Plt Count 307 253 Seg Neutrophils % 73.3 Lymphocytes % 17.0 Monocytes % 7.1 Eosinophils % 2.3 Basophils % 0.3 Absolute Neutrophils 8.2 Absolute Lymphocytes 1.9 Absolute Monocytes 0.8 Absolute Eosinophils 0.3 Absolute Basophils 0.0 Sodium 142.1 Potassium 3.7 Chloride 111 H Carbon Dioxide 25 Anion Gap 6 BUN 6 L Creatinine 0.47 L Est GFR ( Amer) > 60 Est GFR (Non-Af Amer) > 60 Glucose 90 Calcium 7.5 L Magnesium 2.2 09/09/18 09/09/18 09/09/18 14:30 14:30 16:44 Creatine Kinase 286 H CK-MB (CK-2) Cancelled 1.40 Troponin I Cancelled < 0.012 09/09/18 09/09/18 09/10/18 21:05 21:05 03:10 Creatine Kinase 229 H 193 H CK-MB (CK-2) 0.89 Troponin I < 0.012 09/10/18 03:10 Creatine Kinase CK-MB (CK-2) 0.65 Troponin I < 0.012 Impressions: Pelvis X-Ray 09/08/18 13:43 IMPRESSION: SATISFACTORY POSTOPERATIVE PELVIS. Head CT 09/09/18 00:00 IMPRESSION: NORMAL BRAIN CT WITHOUT CONTRAST. EVIDENCE OF ACUTE STROKE: NO. Head MRI 09/09/18 00:00 IMPRESSION: NORMAL MRI OF THE BRAIN WITHOUT INTRAVENOUS GADOLINIUM CONTRAST. EVIDENCE OF ACUTE STROKE: NO. Brain MRI with MRA 09/09/18 15:15 IMPRESSION: NORMAL MRA OF THE [place]. Status: Imported from PACS Assessment & Plan - Diagnosis (1) History of hip replacement Qualifiers: Laterality: left Qualified Code(s): Z96.642 - Presence of left artificial hip joint Is this a current diagnosis for this admission?: Yes Plan: Left hip dressing with a small amount of old drainage which is now dry. Leg lengths are equal. Distal neurovascular examination is intact. - Time Time Spent with patient: 15-24 minutes Anticipated discharge: SNF Within: when bed available - Plan Summary Plan Summary: Patient will continue on with physical therapy on mobilization with weightbearing as tolerated ambulation on the left lower extremity. [facility] when bed available.
[2018-09-11] MEDS: CHOLECALCIFEROL (D3) 1,000 UNIT TABLET PO SCH (10:30)
[2018-09-11] MEDS: CYANOCOBALAMIN (VITAMIN B-12) 1,000 MCG TABLET PO SCH (10:30)
[2018-09-11] MEDS: SERTRALINE HCL 50 MG TABLET PO SCH (10:30)
[2018-09-11] MEDS: APIXABAN 2.5 MG TABLET PO SCH ×3 (10:30→17:23)
[2018-09-11] MEDS: LURASIDONE HCL 40 MG TABLET PO SCH (10:31)
[2018-09-11] MEDS: TOPIRAMATE 25 MG TABLET PO SCH ×2 (10:31→22:01)
[2018-09-11] MEDS: FLUDROCORTISONE ACETATE 0.1 MG TABLET PO SCH (10:31)
[2018-09-11] MEDS: CLONAZEPAM 1 MG TABLET PO SCH ×2 (10:35→21:56)
[2018-09-11] MEDS ORDERED: NORMAL SALINE 250 ML IV PRN ×2 (14:39)
--- NOTE | 2018-09-11 14:39 | PDOC PROGRESS REPORT ---
Subjective Progress Note for:: 09/11/18 Subjective:: 09/09/18: HILTON MI is a 48 year old female who underwent a total arthroplasty of the left hip on 09/08/2018. She was having an unremarkable postoperative course with the usual postoperative pain and was noted to be mildly tachycardic and slightly anemic. She was given 1 unit of packed red blood cells starting about noon on 09/09/2018. Towards the end of her transfusion she became suddenly very poorly responsive with no verbal communication or response to verbal stimuli. With this sudden change in her mental status rapid response was called and I was consulted by default as the hospitalist count team member. Examination of the patient revealed a left hemiparesis although fairly dense nature with flaccid paresis of the left upper and lower extremities accompanying a fairly prominent left facial droop which is more pronounced than her pre-event state per nursing observation. Patient is not verbally responsive and contributes nothing as to her current circumstances nor can she at this point contribute anything in terms of past history. As a result all history and other information not derived from examination in this document is obtained through the medical records that are available. 09/10/18: Hilton has made exceptionally good progress since yesterday afternoon. She became more alert yesterday and has essentially returned to her pre-event status by this morning. She is feeling hungry and would like to get up and be active. She states that she still has pain in her left hip area and has taken a pain pill to help with that and would like to do physical therapy a little later. She has not had a headache, nausea, vomiting or any new neurologic symptoms. Her left-sided weakness is back to her pre-event baseline and she has no right-sided weakness. She feels like her short and long-term memory are intact and she is having no difficulty communicating verbally or understanding anything that is spoken to her. On examination her neurologic evaluation shows a mild left hemiparesis affecting her left upper extremity more so than her left lower extremity and no left facial weakness is discernible at this time. She is communicative and very spontaneous. As a result of her excellent recovery I will restart her usual medications as appropriate although I will discontinue some of her prehospital medications at this time. Most importantly she will be restarted on her 81 mg aspirin daily and she should also be on prophylactic therapy for DVT, thus I will start her on apixaban 2.5 mg p.o. twice daily. I will continue to follow along through tomorrow to assure that her status remains stable but at this point she is very much medically stable and planning for her postoperative rehabilitation can begin from a medical standpoint. Patient will also be returned to her normal physical therapy activities and will be started back on a regular diet. 09/11/18: Hilton continues to make excellent progress in her postoperative recovery. She has had no further neurologic changes or symptoms and continues to be at her baseline. She continues to deny any headache, nausea, vomiting, unusual weakness, tingling, numbness, confusion, incoordination, tremor or memory deficits. She was noted to have a hemoglobin of 7.8 this morning and as such we will try transferring her with 1 more unit of packed red blood cells. She is being continued on aspirin and apixaban as previously dosed. As she continues to be medically stable and Dr. Betancourt instructs that she is surgically stable she can be discharged to a [facility] facility for further rehab or an acute rehab hospital as soon as a bed is available. Reason For Visit: LEFT FEMORAL NECK FRACTURE Physical Exam Vital Signs: Temp Pulse Resp BP Pulse Ox 99.1 F 75 16 103/52 L 97 09/11/18 11:26 09/11/18 11:26 09/11/18 11:26 09/11/18 11:26 09/11/18 12:00 Pulse Oximeter Continuous Start: 09/08/18 16: 18 Freq: RTQ4 Status: Active Document 09/11/18 12:00 [facility] (Rec: 09/11/18 12:36 [facility] [id number]) Pulse Oximetry Assessment Oxygen Saturation (92-100) 97 Oxygen Delivery Method Room Air Equipment Usage Equipment in Use Continuous SpO2 Machine # 10 Intake & Output 09/09/18 09/10/18 09/11/18 23:59 23:59 23:59 Intake Total 2049 1919 Output Total Balance 2049 142 Weight 53.2 kg 70.4 kg 68.5 kg General appearance: PRESENT: no acute distress, cooperative Head exam: PRESENT: atraumatic, normocephalic Eye exam: PRESENT: EOMI. ABSENT: conjunctival injection, nystagmus, scleral icterus Ear exam: PRESENT: normal external ear exam. ABSENT: bleeding, drainage Mouth exam: PRESENT: moist, neck supple, tongue midline Neck exam: ABSENT: thyromegaly, tracheal deviation Respiratory exam: PRESENT: clear to auscultation rona, symmetrical, unlabored Cardiovascular exam: PRESENT: irregular rhythm. ABSENT: bradycardia, clicks, gallop, rubs, tachycardia Vascular exam: PRESENT: normal capillary refill. ABSENT: pallor GI/Abdominal exam: PRESENT: normal bowel sounds, soft Rectal exam: PRESENT: deferred Extremities exam: PRESENT: tenderness - Left hip area, decreased from previous exam. ABSENT: joint swelling, pedal edema Musculoskeletal exam: ABSENT: deformity, dislocation Neurological exam: PRESENT: alert, oriented to person, oriented to place, oriented to time, oriented to situation Psychiatric exam: PRESENT: appropriate affect, normal mood Skin exam: ABSENT: jaundice, rash, urticaria Results Laboratory Results: 09/11/18 04:57 09/10/18 15:36 09/10/18 09/10/18 09/11/18 15:36 15:36 04:57 WBC 11.2 H 7.5 RBC 3.40 L 2.93 L Hgb 9.1 L 7.8 L Hct 27.7 L 23.9 L MCV 82 82 MCH 26.7 L 26.5 L MCHC 32.8 32.4 RDW 17.3 H 17.6 H Plt Count 307 253 Seg Neutrophils % 73.3 Lymphocytes % 17.0 Monocytes % 7.1 Eosinophils % 2.3 Basophils % 0.3 Absolute Neutrophils 8.2 Absolute Lymphocytes 1.9 Absolute Monocytes 0.8 Absolute Eosinophils 0.3 Absolute Basophils 0.0 Sodium 142.1 Potassium 3.7 Chloride 111 H Carbon Dioxide 25 Anion Gap 6 BUN 6 L Creatinine 0.47 L Est GFR ( Amer) > 60 Est GFR (Non-Af Amer) > 60 Glucose 90 Calcium 7.5 L Magnesium 2.2 09/09/18 09/09/18 09/09/18 14:30 14:30 16:44 Creatine Kinase 286 H CK-MB (CK-2) Cancelled 1.40 Troponin I Cancelled < 0.012 09/09/18 09/09/18 09/10/18 21:05 21:05 03:10 Creatine Kinase 229 H 193 H CK-MB (CK-2) 0.89 Troponin I < 0.012 09/10/18 03:10 Creatine Kinase CK-MB (CK-2) 0.65 Troponin I < 0.012 Impressions: Pelvis X-Ray 09/08/18 13:43 IMPRESSION: SATISFACTORY POSTOPERATIVE PELVIS. Head CT 09/09/18 00:00 IMPRESSION: NORMAL BRAIN CT WITHOUT CONTRAST. EVIDENCE OF ACUTE STROKE: NO. Head MRI 09/09/18 00:00 IMPRESSION: NORMAL MRI OF THE BRAIN WITHOUT INTRAVENOUS GADOLINIUM CONTRAST. EVIDENCE OF ACUTE STROKE: NO. Brain MRI with MRA 09/09/18 15:15 IMPRESSION: NORMAL MRA OF [facility] [place]. Assessment & Plan - Diagnosis (1) Acute encephalopathy Is this a current diagnosis for this admission?: Yes Plan: 09/09/18: Evaluation of the acute encephalopathy be undertaken with CT scan of the head without contrast, a comprehensive metabolic profile and CBC. Patient will be transferred to the third floor for further management of her encephalopathy. I strongly suspect that the patient has a new ischemic infarct involving the right hemisphere most likely in the right middle cerebral artery. An MRI will be obtained on a non-stat basis to evaluate this possibility. 09/10/18: Hilton's acute encephalopathy seems to have resolved with her recovery being complete at this point within less than 24 hours of the onset of her symptoms. This was most likely a transient ischemic attack (TIA) given the results of the MRI and MRA. She will be started back on aspirin therapy and she will have postoperative apixaban therapy initiated for DVT control in a post orthopedic surgical patient. Patient will also be restarted on her usual medications with a few exceptions. She will be observed through tomorrow and further medication decisions can be made over that time. She will be started back on a normal diet and she will start back on her regular physical therapy schedule. 09/11/18: Hilton continues to have complete resolution of her acute encephalopathic changes that were no doubt due to an acute transient ischemic attack. She is continued on her aspirin therapy and her postoperative apixaban treatment. No further intervention is planned at this time. (2) History of hip replacement Qualifiers: Laterality: left Qualified Code(s): Z96.642 - Presence of left artificial hip joint Is this a current diagnosis for this admission?: Yes Plan: Patient underwent a total left hip arthroplasty on 08/30/[address] Jd Betancourt. Dr. Betancourt is managing her postoperative care. This patient would be an excellent candidate for inpatient rehab and as such I have informed discharge planning that she could certainly be evaluated by the inpatient rehab center if they would be interested in having her under their care. (3) Adrenal insufficiency Is this a current diagnosis for this admission?: Yes Plan: The patient will be restarted on Florinef 0.1 mg p.o. daily. (4) Anemia Qualifiers: Anemia type: other cause Other causes of anemia: acute posthemorrhagic Qualified Code(s): D62 - Acute posthemorrhagic anemia Is this a current diagnosis for this admission?: Yes Plan: The patient has received 2 units of packed red blood cells and her hemoglobin is now acceptable at 10.0, and will be observed on a daily basis. 09/11/18: Patient is noted to have a hemoglobin of 7.8 this morning and she will receive a 1 unit transfusion of packed red blood cells today. (5) Hypothyroidism Qualifiers: Hypothyroidism type: unspecified Qualified Code(s): E03.9 - Hypothyroidism , unspecified Is this a current diagnosis for this admission?: Yes Plan: Patient will be continued on her home medication of levothyroxine 88 mcg p.o. daily. - Time Time Spent with patient: 25-34 minutes Anticipated discharge: SNF, Acute Rehab
[2018-09-11 14:42] LABS: ABSOLUTE EOSINOPHILS # (AUTO) 0.3 10^3/uL (0.0-0.6); ABSOLUTE LYMPHOCYTES (AUTO) 1.7 10^3/uL (0.5-4.7); ABSOLUTE MONOCYTES (AUTO) 0.5 10^3/uL (0.1-1.4); ABSOLUTE NEUT (AUTO) 4.7 10^3/uL (1.7-8.2); BASOPHILS % (AUTO) 0.4 % (0-2); EOSINOPHILS % (AUTO) 4.8 % (0-6); HEMATOCRIT 21.8 % (36.0-47.0); LYMPHOCYTES % (AUTO) 23.3 % (13-45); MEAN CORPUSCULAR HEMOGLOBIN 27.1 pg (27.0-33.4); MEAN CORPUSCULAR HGB CONC 33.2 g/dL (32.0-36.0); MEAN CORPUSCULAR VOLUME 82 fl (80-97); MONOCYTES % (AUTO) 6.4 % (3-13); PLATELET COUNT 247 10^3/uL (150-450); RED BLOOD COUNT 2.67 10^6/uL (3.72-5.28); RED CELL DISTRIBUTION WIDTH 17.5 % (11.5-14.0); SEGMENTED NEUTROPHILS % (AUTO) 65.1 % (42-78); TOTAL CELLS COUNTED % (AUTO) 100 %; WHITE BLOOD COUNT 7.2 10^3/uL (4.0-10.5)
[2018-09-11 14:46] LABS: HEMOGLOBIN 7.2 g/dL (12.0-15.5)
[2018-09-11 15:05] LABS: ANION GAP 5 (5-19); BLOOD UREA NITROGEN 6 mg/dL (7-20); CALCIUM 7.1 mg/dL (8.4-10.2); CARBON DIOXIDE 21 mmol/L (22-30); CHLORIDE 115 mmol/L (98-107); GLUCOSE 113 mg/dL (75-110); POTASSIUM 3.7 mmol/L (3.6-5.0); SODIUM 141.2 mmol/L (137-145)
[2018-09-11] MEDS: ASPIRIN 81 MG TABLET, ENT COATED PO SCH (21:56)
[2018-09-12] MEDS: OXYCODONE HCL IR 5 MG TABLET PO PRN ×3 (00:55→13:11)
[2018-09-12 05:20] LABS: HEMATOCRIT 26.4 % (36.0-47.0); HEMOGLOBIN 8.9 g/dL (12.0-15.5); MEAN CORPUSCULAR HGB CONC 33.7 g/dL (32.0-36.0); MEAN CORPUSCULAR VOLUME 83 fl (80-97); PLATELET COUNT 240 10^3/uL (150-450); RED BLOOD COUNT 3.18 10^6/uL (3.72-5.28); RED CELL DISTRIBUTION WIDTH 18.1 % (11.5-14.0); WHITE BLOOD COUNT 7.4 10^3/uL (4.0-10.5)
[2018-09-12] MEDS: LEVOTHYROXINE SODIUM 0.088 MG TABLET PO SCH (06:15)
[2018-09-12] MEDS: CYANOCOBALAMIN (VITAMIN B-12) 1,000 MCG TABLET PO SCH (08:07)
[2018-09-12] MEDS: CHOLECALCIFEROL (D3) 1,000 UNIT TABLET PO SCH (08:07)
--- NOTE | 2018-09-12 08:29 | PDOC TRANSFER SUMMARY ---
General - Admit/Disc Date/PCP Admission Date/Primary Care Provider: 09/08/18 10:17 JOHN CANNON MD Discharge Date: 09/12/18 - Discharge Diagnosis (1) History of hip replacement Is this a current diagnosis for this admission?: Yes - Additional Information Resuscitation Status: Full Code Discharge Diet: Cardiac Discharge Activity: Activity As Tolerated Home Medications: Benztropine Mesylate 1 mg PO BID 02/18/18 Biotin 5,000 mcg PO WBRKFST 02/18/18 Cholecalciferol (Vitamin D3) [Vitamin D3 1000 Unit Tablet] 1,000 unit PO WBRKFST 02/18/18 Cyanocobalamin (Vitamin B-12) [Vitamin B-12 1000 mcg Tablet] 1,000 mcg PO WBRKFST 02/18/18 Esomeprazole Magnesium [Nexium] 40 mg PO DAILY 02/18/18 Levothyroxine Sodium [Synthroid 0.088 mg Tablet] 0.088 mg PO Q6AM 02/18/18 Lurasidone HCl [Latuda] 40 mg PO BIDBS 02/18/18 Ondansetron HCl [Zofran 4 mg Tablet] 4 mg PO BIDP PRN 02/18/18 Fludrocortisone Acetate [Florinef 0.1 mg Tablet] 0.05 mg PO DAILY #30 tablet Lisinopril [Prinivil 2.5 mg Tablet] 2.5 mg PO DAILY #30 tablet 02/28/18 Sertraline HCl [Zoloft 50 mg Tablet] 50 mg PO DAILY 08/20/18 Alprazolam [Xanax 0.5 mg Tablet] 0.5 mg PO DAILYP PRN 09/08/18 Aspirin [Ecotrin] 81 mg PO DAILY 09/08/18 Mv-Min/Iron/Folic/Calcium/Vitk [Women's Multivitamin Tablet] 1 tab PO DAILY Topiramate [Topamax] 25 mg PO BID #0 09/10/18 History of Present Illness Admission Date/PCP: 09/08/18 10:17 JOHN CANNON MD History of Present Illness: HILTON MI is a 48 year old female The patient is a 48-year-old white female status post a left femoral neck fracture treated with percutaneous pinning with progressive pain and functional disability. Patient is admitted now for an elective conversion arthroplasty to a total hip arthroplasty. Hospital Course Hospital Course: Patient is admitted through the operating room where she undergoes uncomplicated left hip arthroplasty. She is returned to floor in satisfactory condition. There is an episode of mental status changes and potential respiratory depression treated with Narcan and ultimately diagnosed as a possible TIA which rapidly cleared. The patient continues to make excellent progress with physical therapy. Physical Exam Vital Signs: Temp Pulse Resp BP Pulse Ox 36.7 C 86 16 101/59 L 97 09/12/18 03:28 09/12/18 07:00 09/12/18 03:28 09/12/18 03:28 09/12/18 07:58 Pulse Oximeter Continuous Start: 09/08/18 16: 18 Freq: RTQ4 Status: Active Document 09/12/18 07:58 [facility] (Rec: 09/12/18 07:59 [facility] [id number]) Pulse Oximetry Assessment Oxygen Saturation (92-100) 97 Oxygen Delivery Method Room Air Fraction of Inspired Oxygen (FIO2) 21 Equipment Usage Equipment in Use Continuous SpO2 Machine # 10 Intake & Output 09/11/18 09/12/18 09/13/18 06:59 06:59 06:59 Intake Total 1920 1172 Output Total 500 250 Balance 1420 922 Weight 68.5 kg 69.4 kg General appearance: PRESENT: no acute distress Head exam: PRESENT: normocephalic Respiratory exam: PRESENT: unlabored Cardiovascular exam: PRESENT: RRR Pulses: PRESENT: +1 pedal pulses bilateral Vascular exam: PRESENT: normal capillary refill GI/Abdominal exam: PRESENT: soft Rectal exam: PRESENT: deferred Musculoskeletal exam: PRESENT: other - Left hip dressing clean dry and intact. Leg lengths are equal. Distal neurovascular examination is intact. Neurological exam: PRESENT: alert, awake, oriented to person, oriented to place , oriented to time, oriented to situation. ABSENT: motor sensory deficit Psychiatric exam: PRESENT: appropriate affect, normal mood. ABSENT: homicidal ideation, suicidal ideation Skin exam: PRESENT: dry, intact, warm. ABSENT: cyanosis, rash Results Laboratory Results: 09/12/18 05:06 09/11/18 14:22 09/11/18 09/11/18 09/11/18 14:22 14:22 15:25 WBC 7.2 RBC 2.67 L Hgb 7.2 L Hct 21.8 L MCV 82 MCH 27.1 MCHC 33.2 RDW 17.5 H Plt Count 247 Seg Neutrophils % 65.1 Lymphocytes % 23.3 Monocytes % 6.4 Eosinophils % 4.8 Basophils % 0.4 Absolute Neutrophils 4.7 Absolute Lymphocytes 1.7 Absolute Monocytes 0.5 Absolute Eosinophils 0.3 Absolute Basophils 0.0 Sodium 141.2 Potassium 3.7 Chloride 115 H Carbon Dioxide 21 L Anion Gap 5 BUN 6 L Creatinine 0.46 L Est GFR ( Amer) > 60 Est GFR (Non-Af Amer) > 60 Glucose 113 H Calcium 7.1 L Magnesium 2.1 Blood Type O POSITIVE Antibody Screen NEGATIVE 09/12/18 05:06 WBC 7.4 RBC 3.18 L Hgb 8.9 L Hct 26.4 L MCV 83 MCH 28.0 MCHC 33.7 RDW 18.1 H Plt Count 240 Seg Neutrophils % Lymphocytes % Monocytes % Eosinophils % Basophils % Absolute Neutrophils Absolute Lymphocytes Absolute Monocytes Absolute Eosinophils Absolute Basophils Sodium Potassium Chloride Carbon Dioxide Anion Gap BUN Creatinine Est GFR ( Amer) Est GFR (Non-Af Amer) Glucose Calcium Magnesium Blood Type Antibody Screen 09/09/18 09/09/18 09/09/18 14:30 14:30 16:44 Creatine Kinase 286 H CK-MB (CK-2) Cancelled 1.40 Troponin I Cancelled < 0.012 09/09/18 09/09/18 09/10/18 21:05 21:05 03:10 Creatine Kinase 229 H 193 H CK-MB (CK-2) 0.89 Troponin I < 0.012 09/10/18 03:10 Creatine Kinase CK-MB (CK-2) 0.65 Troponin I < 0.012 Impressions: Pelvis X-Ray 09/08/18 13:43 IMPRESSION: SATISFACTORY POSTOPERATIVE PELVIS. Head CT 09/09/18 00:00 IMPRESSION: NORMAL BRAIN CT WITHOUT CONTRAST. EVIDENCE OF ACUTE STROKE: NO. Head MRI 09/09/18 00:00 IMPRESSION: NORMAL MRI OF THE BRAIN WITHOUT INTRAVENOUS GADOLINIUM CONTRAST. EVIDENCE OF ACUTE STROKE: NO. Brain MRI with MRA 09/09/18 15:15 IMPRESSION: NORMAL MRA OF [facility] [place]. Status: Imported from PACS Transfer Plan - Disposition Transfer Plan: Patient be transferred to a shelter facility for ongoing physical therapy for weightbearing as tolerated ambulation. Follow-up with Dr. Betancourt and [facility] for surgery in 2 weeks for staple removal. - Time Spent with Patient Time spent with patient: Less than 30 Minutes Qualifiers - * PATIENT BEING DISCHARGED WITH ANY OF THE FOLLOWING DIAGNOSIS: No VTE patient discharged on overlapping Therapy?: Yes Plan Discharge Plan: Discharge to a shelter facility Time Spent: Less than 30 Minutes
[2018-09-12] MEDS: CLONAZEPAM 1 MG TABLET PO SCH (09:25)
[2018-09-12] MEDS: LURASIDONE HCL 40 MG TABLET PO SCH (09:26)
[2018-09-12] MEDS: FLUDROCORTISONE ACETATE 0.1 MG TABLET PO SCH (09:26)
[2018-09-12] MEDS: TOPIRAMATE 25 MG TABLET PO SCH (09:26)
[2018-09-12] MEDS: APIXABAN 2.5 MG TABLET PO SCH (09:26)
[2018-09-12] MEDS: SERTRALINE HCL 50 MG TABLET PO SCH (09:26)
[2018-09-12 13:12] VITALS: BP 123/66
--- NOTE | 2018-09-12 15:16 | PDOC PROGRESS REPORT ---
Subjective Progress Note for:: 09/12/18 Subjective:: 09/09/18: HILTON MI is a 48 year old female who underwent a total arthroplasty of the left hip on 09/08/2018. She was having an unremarkable postoperative course with the usual postoperative pain and was noted to be mildly tachycardic and slightly anemic. She was given 1 unit of packed red blood cells starting about noon on 09/09/2018. Towards the end of her transfusion she became suddenly very poorly responsive with no verbal communication or response to verbal stimuli. With this sudden change in her mental status rapid response was called and I was consulted by default as the hospitalist steam fitter. Examination of the patient revealed a left hemiparesis although fairly dense nature with flaccid paresis of the left upper and lower extremities accompanying a fairly prominent left facial droop which is more pronounced than her pre-event state per nursing observation. Patient is not verbally responsive and contributes nothing as to her current circumstances nor can she at this point contribute anything in terms of past history. As a result all history and other information not derived from examination in this document is obtained through the medical records that are available. 09/10/18: Hilton has made exceptionally good progress since yesterday afternoon. She became more alert yesterday and has essentially returned to her pre-event status by this morning. She is feeling hungry and would like to get up and be active. She states that she still has pain in her left hip area and has taken a pain pill to help with that and would like to do physical therapy a little later. She has not had a headache, nausea, vomiting or any new neurologic symptoms. Her left-sided weakness is back to her pre-event baseline and she has no right-sided weakness. She feels like her short and long-term memory are intact and she is having no difficulty communicating verbally or understanding anything that is spoken to her. On examination her neurologic evaluation shows a mild left hemiparesis affecting her left upper extremity more so than her left lower extremity and no left facial weakness is discernible at this time. She is communicative and very spontaneous. As a result of her excellent recovery I will restart her usual medications as appropriate although I will discontinue some of her prehospital medications at this time. Most importantly she will be restarted on her 81 mg aspirin daily and she should also be on prophylactic therapy for DVT, thus I will start her on apixaban 2.5 mg p.o. twice daily. I will continue to follow along through tomorrow to assure that her status remains stable but at this point she is very much medically stable and planning for her postoperative rehabilitation can begin from a medical standpoint. Patient will also be returned to her normal physical therapy activities and will be started back on a regular diet. 09/11/18: Hilton continues to make excellent progress in her postoperative recovery. She has had no further neurologic changes or symptoms and continues to be at her baseline. She continues to deny any headache, nausea, vomiting, unusual weakness, tingling, numbness, confusion, incoordination, tremor or memory deficits. She was noted to have a hemoglobin of 7.8 this morning and as such we will try transferring her with 1 more unit of packed red blood cells. She is being continued on aspirin and apixaban as previously dosed. As she continues to be medically stable and Dr. Betancourt instructs that she is surgically stable she can be discharged to a shelter facility for further rehab or an acute rehab hospital as soon as a bed is available. 09/12/18: Hilton is seen today to follow-up on her recent neurologic changes. Her changes have all resolved and have occurred since the point of the resolution. She continues to have no additional symptoms and tolerated her blood transfusion well yesterday. She continues to be medically stable and is ready for discharge to a shelter facility in improved and stable condition. Reason For Visit: LEFT FEMORAL NECK FRACTURE Physical Exam Vital Signs: Temp Pulse Resp BP Pulse Ox 98.8 F 76 14 123/66 97 09/12/18 11:32 09/12/18 14:00 09/12/18 11:32 09/12/18 11:32 09/12/18 12:00 Pulse Oximeter Continuous Start: 09/08/18 16: 18 Freq: RTQ4 Status: Active Document 09/12/18 12:00 TPO (Rec: 09/12/18 12:02 TPO [id number]) Pulse Oximetry Assessment Oxygen Saturation (92-100) 97 Oxygen Delivery Method Room Air Fraction of Inspired Oxygen (FIO2) 21 Equipment Usage Equipment in Use Continuous SpO2 Machine # 10 Intake & Output 09/10/18 09/11/18 09/12/18 23:59 23:59 23:59 Intake Total 1920 1172 Output Total 500 250 Balance 1420 922 Weight 70.4 kg 68.5 kg 69.4 kg General appearance: PRESENT: no acute distress, cooperative Head exam: PRESENT: atraumatic, normocephalic Eye exam: PRESENT: conjunctiva pink. ABSENT: scleral icterus Respiratory exam: PRESENT: clear to auscultation rona, symmetrical, unlabored Cardiovascular exam: PRESENT: RRR. ABSENT: clicks, diastolic murmur, gallop, rubs, systolic murmur Vascular exam: PRESENT: normal capillary refill. ABSENT: pallor Neurological exam: PRESENT: alert, oriented to person, oriented to place, oriented to time, oriented to situation, motor sensory deficit - Mild left hemiparesis most prominent in the left upper extremity.. ABSENT: CN II-XII grossly intact - Minimal left facial (central seventh) weakness. Psychiatric exam: PRESENT: appropriate affect, normal mood Skin exam: ABSENT: jaundice, rash, urticaria Results Laboratory Results: 09/12/18 05:06 09/11/18 14:22 09/11/18 09/11/18 09/12/18 14:22 15:25 05:06 WBC 7.4 RBC 3.18 L Hgb 8.9 L Hct 26.4 L MCV 83 MCH 28.0 MCHC 33.7 RDW 18.1 H Plt Count 240 Sodium 141.2 Potassium 3.7 Chloride 115 H Carbon Dioxide 21 L Anion Gap 5 BUN 6 L Creatinine 0.46 L Est GFR ( Amer) > 60 Est GFR (Non-Af Amer) > 60 Glucose 113 H Calcium 7.1 L Magnesium 2.1 Blood Type O POSITIVE Antibody Screen NEGATIVE 09/08/18 13:10 Hip - Left Gram Stain - Final 09/08/18 13:10 Hip - Left Wound Culture - Final NO AEROBIC OR ANAEROBIC ORGANISMS RECOVERED 09/09/18 09/09/18 09/09/18 14:30 14:30 16:44 Creatine Kinase 286 H CK-MB (CK-2) Cancelled 1.40 Troponin I Cancelled < 0.012 09/09/18 09/09/18 09/10/18 21:05 21:05 03:10 Creatine Kinase 229 H 193 H CK-MB (CK-2) 0.89 Troponin I < 0.012 09/10/18 03:10 Creatine Kinase CK-MB (CK-2) 0.65 Troponin I < 0.012 Impressions: Pelvis X-Ray 09/08/18 13:43 IMPRESSION: SATISFACTORY POSTOPERATIVE PELVIS. Head CT 09/09/18 00:00 IMPRESSION: NORMAL BRAIN CT WITHOUT CONTRAST. EVIDENCE OF ACUTE STROKE: NO. Head MRI 09/09/18 00:00 IMPRESSION: NORMAL MRI OF THE BRAIN WITHOUT INTRAVENOUS GADOLINIUM CONTRAST. EVIDENCE OF ACUTE STROKE: NO. Brain MRI with MRA 09/09/18 15:15 IMPRESSION: NORMAL MRA OF THE [place] AND [place] TRIBES OF [place]. Assessment & Plan - Diagnosis (1) Acute encephalopathy Is this a current diagnosis for this admission?: Yes Plan: 09/09/18: Evaluation of the acute encephalopathy be undertaken with CT scan of the head without contrast, a comprehensive metabolic profile and CBC. Patient will be transferred to the third floor for further management of her encephalopathy. I strongly suspect that the patient has a new ischemic infarct involving the right hemisphere most likely in the right middle cerebral artery. An MRI will be obtained on a non-stat basis to evaluate this possibility. 09/10/18: Hilton's acute encephalopathy seems to have resolved with her recovery being complete at this point within less than 24 hours of the onset of her symptoms. This was most likely a transient ischemic attack (TIA) given the results of the MRI and MRA. She will be started back on aspirin therapy and she will have postoperative apixaban therapy initiated for DVT control in a post orthopedic surgical patient. Patient will also be restarted on her usual medications with a few exceptions. She will be observed through tomorrow and further medication decisions can be made over that time. She will be started back on a normal diet and she will start back on her regular physical therapy schedule. 09/11/18: Hilton continues to have complete resolution of her acute encephalopathic changes that were no doubt due to an acute transient ischemic attack. She is continued on her aspirin therapy and her postoperative apixaban treatment. No further intervention is planned at this time. (2) History of hip replacement Qualifiers: Laterality: left Qualified Code(s): Z96.642 - Presence of left artificial hip joint Is this a current diagnosis for this admission?: Yes Plan: Patient underwent a total left hip arthroplasty on 08/30/[address] Jd Betancourt. Dr. Betancourt is managing her postoperative care. This patient would be an excellent candidate for inpatient rehab and as such I have informed discharge planning that she could certainly be evaluated by the inpatient rehab center if they would be interested in having her under their care. (3) Adrenal insufficiency Is this a current diagnosis for this admission?: Yes Plan: The patient will be restarted on Florinef 0.1 mg p.o. daily. (4) Anemia Qualifiers: Anemia type: other cause Other causes of anemia: acute posthemorrhagic Qualified Code(s): D62 - Acute posthemorrhagic anemia Is this a current diagnosis for this admission?: Yes Plan: The patient has received 2 units of packed red blood cells and her hemoglobin is now acceptable at 10.0, and will be observed on a daily basis. 09/11/18: Patient is noted to have a hemoglobin of 7.8 this morning and she will receive a 1 unit transfusion of packed red blood cells today. (5) Hypothyroidism Qualifiers: Hypothyroidism type: unspecified Qualified Code(s): E03.9 - Hypothyroidism , unspecified Is this a current diagnosis for this admission?: Yes Plan: Patient will be continued on her home medication of levothyroxine 88 mcg p.o. daily. - Time Time Spent with patient: 15-24 minutes Anticipated discharge: SNF Within: Other - Today
== END 2018-09-12 16:36 | DRG 467 ==
LOC: INOR 10:17 → 4S 15:38 → 3N 09-09 16:29
PROVIDERS: ADMIT Orthopaedic Surgery; ATTEND Orthopaedic Surgery
PROC: 0SPB0JZ Removal of Synthetic Substitute from Left Hip Joint, Open Approach (ICD-10-PCS; 2018-09-08)
PROC: 0SRB02A Replacement of Left Hip Joint with Metal on Polyethylene Synthetic Substitute, Uncemented, Open Approach (ICD-10-PCS; principal; 2018-09-08 12:30)
PROC: 30233N1 Transfusion of Nonautologous Red Blood Cells into Peripheral Vein, Percutaneous Approach (ICD-10-PCS; 2018-09-09)
DX: S72.025D Nondisplaced fracture of epiphysis (separation) (upper) of left femur, subsequent encounter for closed fracture with routine healing (principal); G93.49 Other encephalopathy; G81.04 Flaccid hemiplegia affecting left nondominant side; D62 Acute posthemorrhagic anemia; E27.40 Unspecified adrenocortical insufficiency; G45.8 Other transient cerebral ischemic attacks and related syndromes; R29.810 Facial weakness; G89.18 Other acute postprocedural pain; X58.XXXD Exposure to other specified factors, subsequent encounter; I10 Essential (primary) hypertension; E03.9 Hypothyroidism, unspecified; K21.9 Gastro-esophageal reflux disease without esophagitis; F41.9 Anxiety disorder, unspecified; F17.210 Nicotine dependence, cigarettes, uncomplicated; Z96.89 Presence of other specified functional implants; Z98.84 Bariatric surgery status; Z86.73 Personal history of transient ischemic attack (TIA), and cerebral infarction without residual deficits
CPT/HCPCS: 01214; 36415; 36430; 70450; 70544; 70551; 72170; 80048; 80053; 80061; 82550; 82553; 82962; 83735; 84132; 84484; 85025; 85027; 86850; 86900; 86901; 86920; 87070; 87075; 87205; 88305; 88311; 93005; 93010; 94762; 94799; C1776; G8978-GP; G8979-GP; G8987-GO; G8988-GO; G8996-GN; G8997-GN; G8998-GN; J1741; J2250; J2270; J2704; J3010; J3370; J3490; J7030; J7050; J7060; J7120; P9016

== ENCOUNTER 2018-11-07 07:59 | Inpatient (IN) | payer MEDICARE, MEDICAID ==
[2018-11-07] MEDS ORDERED: NORMAL SALINE 1000 ML 1,000 ML IV ONE ×3 (08:06→10:43)
[2018-11-07 08:23] LABS: VENOUS BLOOD BASE EXCESS 2.7 mmol/L; VENOUS BLOOD HCO3 26.3 mmol/L (20-32); VENOUS BLOOD PCO2 35.7 mmHg (35-63); VENOUS BLOOD PH 7.49 (7.30-7.42)
[2018-11-07 08:27] LABS: ABSOLUTE BASOPHILS # (AUTO) 0.1 10^3/uL (0.0-0.2); ABSOLUTE LYMPHOCYTES (AUTO) 1.9 10^3/uL (0.5-4.7); ABSOLUTE MONOCYTES (AUTO) 0.5 10^3/uL (0.1-1.4); EOSINOPHILS % (AUTO) 0.1 % (0-6); HEMATOCRIT 29.9 % (36.0-47.0); HEMOGLOBIN 9.7 g/dL (12.0-15.5); MEAN CORPUSCULAR HEMOGLOBIN 32.9 pg (27.0-33.4); MEAN CORPUSCULAR HGB CONC 32.5 g/dL (32.0-36.0); MONOCYTES % (AUTO) 3.2 % (3-13); PLATELET COUNT 250 10^3/uL (150-450); RED BLOOD COUNT 2.96 10^6/uL (3.72-5.28); RED CELL DISTRIBUTION WIDTH 17.6 % (11.5-14.0); SEGMENTED NEUTROPHILS % (AUTO) 83.7 % (42-78); TOTAL CELLS COUNTED % (AUTO) 100 %; WHITE BLOOD COUNT 15.6 10^3/uL (4.0-10.5)
[2018-11-07 08:37] LABS: INTERNATIONAL RATION (INR) 1.05; PROTHROMBIN TIME 14.3 SEC (11.4-15.4)
[2018-11-07 08:59] LABS: MEAN CORPUSCULAR VOLUME 101 fl (80-97)
[2018-11-07 09:00] LABS: APPEARANCE,URINE CLEAR; BILIRUBIN,URINE NEGATIVE (NEGATIVE); COLOR,URINE YELLOW; GLUCOSE, URINE NEGATIVE (NEGATIVE); KETONES,URINE NEGATIVE (NEGATIVE); LEUKOCYTE ESTERASE,URINE NEGATIVE (NEGATIVE); NITRITE,URINE NEGATIVE (NEGATIVE); PROTEIN,URINE NEGATIVE (NEGATIVE); URINE SPECIFIC GRAVITY 1.012
--- NOTE | 2018-11-07 09:35 | RADIOLOGY REPORT (SQ) ---
EXAM DESCRIPTION: CHEST SINGLE VIEW COMPLETED DATE/TIME: 11/07/2018 9:16 am REASON FOR STUDY: sob COMPARISON: 08/28/2018 EXAM PARAMETERS: NUMBER OF VIEWS: One view. TECHNIQUE: Single frontal radiographic view of the chest acquired. RADIATION DOSE: NA LIMITATIONS: None. FINDINGS: LUNGS AND PLEURA: No opacities, masses or pneumothorax. No pleural effusion. MEDIASTINUM AND HILAR STRUCTURES: No masses. Contour normal. HEART AND VASCULAR STRUCTURES: Heart normal in size. Normal vasculature. BONES: No acute findings. HARDWARE: None in the chest. OTHER: No other significant finding. IMPRESSION: NO ACUTE RADIOGRAPHIC FINDING IN THE CHEST. TECHNICAL DOCUMENTATION: JOB ID: [id number] [employer]- All Rights Reserved Reading location - IP/workstation name: [email or web address]
[2018-11-07 09:38] LABS: URINE AMPHETAMINES SCREEN NEGATIVE; URINE BARBITURATES SCREEN NEGATIVE; URINE BENZODIAZEPINES SCREEN NEGATIVE; URINE COCAINE SCREEN NEGATIVE; URINE MARIJUANA (THC) SCREEN NEGATIVE; URINE METHADONE SCREEN NEGATIVE; URINE PHENCYCLIDINE SCREEN NEGATIVE
[2018-11-07 10:25] LABS: ALANINE AMINOTRANSFERASE 35 U/L (9-52); ALBUMIN 1.5 g/dL (3.5-5.0); ALKALINE PHOSPHATASE 219 U/L (38-126); ANION GAP 7 (5-19); ASPARTATE AMINO TRANSFERASE 35 U/L (14-36); BILIRUBIN,DIRECT 0.5 mg/dL (0.0-0.4); BILIRUBIN,TOTAL 0.6 mg/dL (0.2-1.3); BLOOD UREA NITROGEN 13 mg/dL (7-20); CARBON DIOXIDE 25 mmol/L (22-30); CHLORIDE 108 mmol/L (98-107); GLUCOSE 91 mg/dL (75-110); SODIUM 140.2 mmol/L (137-145); TOTAL PROTEIN 3.9 g/dL (6.3-8.2)
[2018-11-07 10:39] LABS: NT PRO BNP 172 pg/mL (<125)
[2018-11-07] MEDS ORDERED: DOXYCYCLINE HYCLATE INJ 100 MG VIAL IV ONE (10:43)
[2018-11-07 10:45] LABS: TROPONIN I < 0.012 ng/mL
[2018-11-07 10:48] LABS: CALCIUM 6.2 mg/dL (8.4-10.2); POTASSIUM 1.8 mmol/L (3.6-5.0)
[2018-11-07 11:27] LABS: A TYPE INFLUENZA AG NEGATIVE (NEGATIVE); B INFLUENZA AG NEGATIVE (NEGATIVE)
[2018-11-07] MEDS: POTASSI CL 20 MEQ/50 ML RIDER 20 MEQ/50 ML RTUPB IV SCH ×3 (11:58→15:17)
--- NOTE | 2018-11-07 12:12 | RADIOLOGY REPORT (SQ) ---
EXAM DESCRIPTION: CT ABD/PELVIS WITH IV ONLY COMPLETED DATE/TIME: 11/07/2018 11:55 am REASON FOR STUDY: elevated lactic acid wbc fever COMPARISON: 01/29/2015 TECHNIQUE: CT scan of the abdomen and pelvis performed using helical scanning technique with dynamic intravenous contrast injection. No oral contrast. Images reviewed with lung, soft tissue, and bone windows. Reconstructed coronal and sagittal MPR images reviewed. Delayed images for evaluation of the urinary system also acquired. All images stored on PACS. All CT scanners at this facility use dose modulation, iterative reconstruction, and/or weight based d osing when appropriate to reduce radiation dose to as low as reasonably achievable (ALARA). [facility]: Dose Right [facility]: CareDose [facility]: Dose Right [facility]: Teradose 4D [facility]: [employer] CONTRAST TYPE AND DOSE: contrast/concentration: Isovue 350.00 mg/ml; Total Contrast Delivered: 72.0 ml; Total Saline Delivered: 66.0 ml RENAL FUNCTION: GFR > 60. RADIATION DOSE: CT Rad equipment meets quality standard of care and radiation dose reduction techniq ues were employed. CTDIvol: 8.2 - 11.6 mGy. DLP: 1152 mGy-cm.. LIMITATIONS: None. FINDINGS: LOWER CHEST: There is multifocal bilateral geographic ground-glass pulmonary opacity of th e included lung bases. LIVER: Severe hepatomegaly and hepatic steatosis. SPLEEN: Normal size. No focal lesions. PANCREAS: No masses. No significant calcifications. No adjacent inflammation or peripancreatic fluid collections. Pancreatic duct not dilated. GALLBLADDER: Status post cholecystectomy. ADRENAL GLANDS: No significant masses or asymmetry. RIGHT KIDNEY AND URETER: No solid masses. Small nonobstructive calculus. No hydronephrosis or hyd roureter. LEFT KIDNEY AND URETER: No solid masses. No significant calcifications. No hydronephrosis or hydr oureter. Small phlebolith in the vicinity of the distal left ureter, unchanged from prior examinatio n. AORTA AND VESSELS: No aneurysm. No dissection. Renal arteries, SMA, celiac without stenosis. RETROPERITONEUM: No retroperitoneal adenopathy, hemorrhage or masses. BOWEL AND PERITONEAL CAVITY: Postoperative findings of Shanthi-en-Y gastric bypass. There is severe thi ckening of the terminal ileum, cecum, and proximal transverse colon. APPENDIX: Normal. PELVIS: No mass. Trace free fluid. Normal bladder. Status post hysterectomy and oophorectomy. ABDOMINAL WALL: No masses. No hernias. Anasarca. BONES: No significant or acute findings. OTHER: No other significant finding. IMPRESSION: 1. There is severe thickening of the terminal ileum, cecum, and proximal transverse colo n, consistent with nonspecific infectious or inflammatory colitis. This pattern of inflammation may be seen in inflammatory bowel disease such as Crohn's disease. Correlate for appropriate history of clinical signs and symptoms if present. 2. Hepatomegaly and severe hepatic steatosis. 3. Status post Shanthi-en-Y gastric bypass. 4. Multifocal bilateral geographic ground-glass pulmonary opacity in the included bilateral lung bas es, an unusual pattern that can be seen in atypical infection as well as inflammatory pneumonitis suc h as organizing pneumonia. TECHNICAL DOCUMENTATION: JOB ID: [id number] Quality ID # [id number]: Final reports with documentation of one or more dose reduction techniques (e.g., Au tomated exposure control, adjustment of the mA and/or kV according to patient size, use of iterative reconstruction technique) 2010 [employer]- All Rights Reserved Reading location - IP/workstation name: [email or web address]
[2018-11-07] MEDS ORDERED: LEVOFLOXACIN 500 MG/D5W RTU 500 MG/100 ML RTUPB IV ONE (12:18)
[2018-11-07] MEDS ORDERED: VANCOMYCIN HCL 0 MG in DEXTROSE 5%-WATER 250 ML IV NR (13:45)
--- NOTE | 2018-11-07 13:53 | ER Document Report ---
ED General - General Chief Complaint: Wound Infection Stated Complaint: WEAKNESS Time Seen by Provider: 11/07/18 08:06 TRAVEL OUTSIDE OF THE [place] IN LAST 30 DAYS: No - HPI Patient complains to provider of: Weakness Notes: Patient coming in for evaluation of weakness patient according to the son at bedside to take care of the patient mostly patient has been weak feeling unwell for greater than 24 hours. EMS was called to evaluate the patient found the patient febrile with temperature approximate 101 also was significantly tachycardic with a heart rate in the 120s blood pressure in the 70s. Patient was transported to the ER for further evaluation. Upon my evaluation patient looks to be sick or septic patient denies any pain denies any chest pain abdominal pain does state nausea and vomiting denies any diarrhea. Son states patient mostly bedbound does have a decubitus ulcer on the heel and on the coccyx states they do not have any wound care to treat the patient. Denies any recent antibiotics states that the patient is intermittently compliant with her medication regiment and is unaware if the patient has been taking her medications over the last few days patient blood pressure holding steady 80 systolic with heart rate in the 120s. Patient is in no respiratory distress no hypoxia noted - Related Data Allergies/Adverse Reactions: cilastatin [From Primaxin IV] Allergy (Intermediate, Verified 09/08/18 10:48) Facial swelling imipenem [From Primaxin IV] Allergy (Intermediate, Verified 09/08/18 10:48) Facial swelling Penicillins Allergy (Mild, Verified 09/08/18 10:48) Generalized rash Sulfa (Sulfonamide Antibiotics) Allergy (Mild, Verified 09/08/18 10:48) Generalized rash Past Medical History - Social History Smoking Status: Current Every Day Smoker Chew tobacco use (# tins/day): No Frequency of alcohol use: None Drug Abuse: None Family History: DM, Hypertension Patient has suicidal ideation: No Patient has homicidal ideation: No - Past Medical History Cardiac Medical History: Reports: Hx Hypercholesterolemia, Hx Hypertension Denies: Hx Atrial Fibrillation, Hx Congestive Heart Failure, Hx Coronary Artery Disease, Hx Heart Attack, Hx Peripheral Vascular Disease, Hx Pulmonary Embolism, Hx Heart Murmur Pulmonary Medical History: Reports: Hx Pneumonia Denies: Hx Asthma, Hx Bronchitis, Hx COPD, Hx Respiratory Failure, Hx Sleep Apnea, Hx Tuberculosis Neurological Medical History: Reports: Hx Cerebrovascular Accident. Denies: Hx Seizures Endocrine Medical History: Reports: Hx Diabetes Mellitus Type 2. Denies: Hx Diabetes Mellitus Type 1, Hx Graves' Disease, Hx Hyperthyroidism, Hx Hypothyroidism Renal/ Medical History: Denies: Hx Ovarian Cysts, Hx Peritoneal Dialysis, Hx Pelvic Inflammatory Disease Malignancy Medical History: Reports: Hx Ovarian Cancer. Denies: Hx Breast Cancer, Hx Cervical Cancer, Hx Leukemia, Hx Lung Cancer GI Medical History: Reports: Hx Gastroesophageal Reflux Disease, Hx Ulcer, Hx Endoscopy. Denies: Hx Cirrhosis, Hx Crohn's Disease, Hx Hepatitis, Hx Hiatal Hernia, Hx Irritable Bowel, Hx Liver Failure, Hx Pancreatitis Musculoskeletal Medical History: Reports Hx Arthritis, Denies Hx Fibromyalgia, Denies Hx Multiple Sclerosis, Denies Hx Muscular Dystrophy Skin Medical History: Denies Hx Eczema, Denies Hx Psoriasis Psychiatric Medical History: Reports: Hx Anxiety, Hx Bipolar Disorder, Hx Depression, Hx Schizophrenia Denies: Hx Dementia, Hx Post Traumatic Stress Disorder Traumatic Medical History: Reports: Hx Fractures - 3 fx, left hip fx 10/2017 Infectious Medical History: Denies: Hx Hepatitis, Hx HIV Past Surgical History: Reports: Hx Abdominal Surgery - gastric bypass, reversal, Hx Cholecystectomy, Hx Gastric Bypass Surgery, Hx Hysterectomy, Hx Orthopedic Surgery - LLE, left jaw, total left hip arthroplasty on 09/08/2018.. Denies: Hx Appendectomy, Hx Bowel Surgery, Hx Section, Hx Colostomy, Hx Coronary Artery Bypass Graft, Hx Herniorrhaphy, Hx Mastectomy, Hx Pacemaker, Hx To nsillectomy, Hx Tubal Ligation - Immunizations Immunizations up to date: Yes Hx Diphtheria, Pertussis, Tetanus Vaccination: Yes Review of Systems - Review of Systems Constitutional: Weakness EENT: No symptoms reported Cardiovascular: No symptoms reported Respiratory: No symptoms reported Gastrointestinal: No symptoms reported Genitourinary: No symptoms reported Female Genitourinary: No symptoms reported Musculoskeletal: No symptoms reported Skin: No symptoms reported Hematologic/Lymphatic: No symptoms reported Neurological/Psychological: No symptoms reported -: Yes All other systems reviewed and negative Physical Exam - Vital signs Vitals: BP Pulse Ox 89/36 L 98 11/07/18 08:05 11/07/18 08:05 Interpretation: Hypotensive, Tachycardic - General General appearance: Appears well, Alert - HEENT Head: Normocephalic, Atraumatic Eyes: Normal Pupils: PERRL - Respiratory Respiratory status: No respiratory distress Chest status: Nontender Breath sounds: Normal Chest palpation: Normal - Cardiovascular Rhythm: Regular Heart sounds: Normal auscultation Murmur: No - Abdominal Inspection: Normal Distension: No distension Bowel sounds: Normal Tenderness: Nontender Organomegaly: No organomegaly - Genitourinary Notes: Decubitus ulcer approximately 5 cm x 5 cm in the coccyx region with very stages of granulation tissue noticed no signs of purulent material about the wound does have a pungent smell - Back Back: Normal, Nontender - Extremities General upper extremity: Normal inspection, Nontender, Normal color, Normal ROM, Normal temperature General lower extremity: Nontender, Normal color, Normal ROM, Normal temperature, Normal weight bearing. No: Normal inspection - Wound to the right greater toe and heel, Ly's sign - Neurological Neuro grossly intact: Yes Cognition: Normal Orientation: AAOx4 Loan Coma Scale Eye Opening: Spontaneous [place] Coma Scale Verbal: Oriented Loan Coma Scale Motor: Obeys Commands [place] Coma Scale Total: 15 Speech: Normal Sensory: Normal - Psychological Associated symptoms: Normal affect, Normal mood - Skin Skin Temperature: Warm Skin Moisture: Dry Skin Color: Normal Course - Re-evaluation Re-evalutation: 11/07/18 14:43 Laboratory values are concerning for sepsis patient does have a lactic acidosis along with an elevation in the white count fever chest x-ray initially did not show any signs of infectious etiology urine also returned showing no signs of infection. Patient underwent a CAT scan of her abdomen due to the elevated lactic acid and white count showing signs of colitis along with bilateral basilar pneumonia. Initially because of the decubitus ulcer seen with a funny smell possible etiology of the patient's infection source dose of doxycycline was given after CT scan this is brought in with Levaquin. Patient blood pressure and tachycardia improved with IV fluids although she does remain hypotensive with systolic blood pressures in the 90s to low 100s. Patient has remained alert and oriented asking multiple times to have something to eat and drink. Laboratory studies also show significant hypocalcemia and hypokalemia. I did discuss the patient's presentation with the covering physician Dr. Callaway who agrees that the patient warrants ICU admission at this time. - Vital Signs Vital signs: Temp Pulse Resp BP Pulse Ox 99.9 F 11 L 94/50 L 95 11/07/18 08:07 11/07/18 13:00 11/07/18 11:01 11/07/18 13:00 - Laboratory Result Diagrams: 11/07/18 08:10 11/07/18 09:57 Laboratory results interpreted by me: 11/07/18 11/07/18 11/07/18 08:10 08:10 08:10 WBC 15.6 H RBC 2.96 L Hgb 9.7 L Hct 29.9 L MCV 101 H D RDW 17.6 H Seg Neutrophils % 83.7 H Lymphocytes % 12.0 L Absolute Neutrophils 13.0 H VBG pH 7.49 H Potassium Chloride Lactic Acid 5.7 H Calcium Ionized Calcium Ney Direct Bilirubin Alkaline Phosphatase NT-Pro-B Natriuret Pep Total Protein Albumin Amylase Lipase Urine Urobilinogen 11/07/18 11/07/18 11/07/18 08:10 08:30 09:57 WBC RBC Hgb Hct MCV RDW Seg Neutrophils % Lymphocytes % Absolute Neutrophils VBG pH Potassium 1.8 L* Chloride 108 H Lactic Acid Calcium 6.2 L* Ionized Calcium Ney Direct Bilirubin 0.5 H Alkaline Phosphatase 219 H NT-Pro-B Natriuret Pep Total Protein 3.9 L Albumin 1.5 L Amylase Lipase 11.0 L Urine Urobilinogen 4.0 H 11/07/18 11/07/18 11/07/18 09:57 09:57 09:57 WBC RBC Hgb Hct MCV RDW Seg Neutrophils % Lymphocytes % Absolute Neutrophils VBG pH Potassium Chloride Lactic Acid Calcium Ionized Calcium Ney 0.94 L Direct Bilirubin Alkaline Phosphatase NT-Pro-B Natriuret Pep 172 H Total Protein Albumin Amylase < 30 L Lipase 16.6 L Urine Urobilinogen Critical Care Note - Critical Care Note Total time excluding time spent on procedures (mins): 60 Comments: Multiple evaluation patient with sepsis and stable vital signs. Discharge - Discharge Clinical Impression: Hypokalemia, Malnutrition compromising bodily function, Colitis, Sacral decubitus ulcer, stage II Anemia Qualifiers: Anemia type: unspecified type Qualified Code(s): D64.9 - Anemia, unspecified Pneumonia Qualifiers: Pneumonia type: due to unspecified organism Laterality: unspecified laterality Lung location: unspecified part of lung Qualified Code(s): J18.9 - Pneumonia, unspecified organism Sepsis Qualifiers: Sepsis type: sepsis due to unspecified organism Qualified Code(s): A41.9 - Sepsis, unspecified organism CHF (congestive heart failure) Qualifiers: Heart failure type: unspecified Heart failure chronicity: unspecified Qualified Code(s): I50.9 - Heart failure, unspecified Decubitus ulcer of left heel Qualifiers: Pressure injury stage: stage 2 Qualified Code(s): L89.622 - Pressure ulcer of left heel, stage 2 Opiate dependence Qualifiers: Substance use status: uncomplicated Qualified Code(s): F11.20 - Opioid dependence, uncomplicated Hypotension Qualifiers: Hypotension type: unspecified hypotension type Qualified Code(s): I95.9 - Hypotension, unspecified Condition: Fair Disposition: ADMITTED INPATIENT Admitting Provider: [facility] Unit Admitted: ICU
[2018-11-07 14:00] LABS: INTERNATIONAL RATION (INR) 1.08; PROTHROMBIN TIME 14.6 SEC (11.4-15.4)
[2018-11-07 14:21] LABS: LIPASE 16.6 U/L (23-300); PHOSPHORUS 2.8 mg/dL (2.5-4.5)
[2018-11-07 14:22] LABS: AMYLASE < 30 U/L (30-110)
[2018-11-07 14:36] LABS: FREE T4 (FREE THYROXINE) 1.53 ng/dL (0.78-2.19)
[2018-11-07 14:50] LABS: THYROID STIMULATING HORMONE 0.08 uIU/mL (0.47-4.68)
[2018-11-07 14:57] LABS: URINE POTASSIUM 22.5 mmol/L (22-164)
--- NOTE | 2018-11-07 15:03 | EKG REPORT ---
SEVERITY:- ABNORMAL ECG - SINUS TACHYCARDIA LEFT AXIS DEVIATION ANTERIOR INFARCT, AGE INDETERMINATE PROLONGED QT INTERVAL : Confirmed by: Benitez Gabriel 07-Nov-2018 15:03:19
[2018-11-07] MEDS: HEPARIN SOD (PORCINE) 5,000 UNIT/ML 1 ML SYRINGE SUBCUT SCH ×2 (16:33→22:42)
[2018-11-07 16:37] LABS: ARTERIAL BLOOD BASE EXCESS 4.1 mmol/L; ARTERIAL BLOOD H2CO3 1.06 mmol/L (1.05-1.35); ARTERIAL BLOOD HCO3 27.3 mmol/L (20-24); ARTERIAL BLOOD O2 SATURATION 95.6 % (94-98); ARTERIAL BLOOD PCO2 35.1 mmHg (35-45); ARTERIAL BLOOD PH 7.51 (7.35-7.45); ARTERIAL BLOOD PO2 70.5 mmHg (80-100); ARTERIAL BLOOD TOTAL CO2 28.4 mmol/L (21-25)
[2018-11-07 16:40] LABS: ARTERIAL BLOOD FIO2 21%
[2018-11-07 16:43] LABS: APPEARANCE,URINE CLEAR; BILIRUBIN,URINE NEGATIVE (NEGATIVE); COLOR,URINE YELLOW; GLUCOSE, URINE NEGATIVE (NEGATIVE); KETONES,URINE TRACE mg/dL (NEGATIVE); LEUKOCYTE ESTERASE,URINE NEGATIVE (NEGATIVE); NITRITE,URINE NEGATIVE (NEGATIVE); PROTEIN,URINE NEGATIVE (NEGATIVE); URINE SPECIFIC GRAVITY 1.038
[2018-11-07 16:58] LABS: URINE AMPHETAMINES SCREEN NEGATIVE; URINE BARBITURATES SCREEN NEGATIVE; URINE BENZODIAZEPINES SCREEN NEGATIVE; URINE COCAINE SCREEN NEGATIVE; URINE MARIJUANA (THC) SCREEN NEGATIVE; URINE METHADONE SCREEN NEGATIVE; URINE PHENCYCLIDINE SCREEN NEGATIVE
[2018-11-07] MEDS ORDERED: NOREPINEPHRINE BITARTRATE INJ/PF 4 MG/4 ML SDV IV ONE (17:06)
[2018-11-07] MEDS: DEXTROSE 5%-WATER 250 ML with NOREPINEPHRINE BITARTRATE 4 MG IV PRN ×2 (17:10)
[2018-11-07] MEDS: POTASSI CL 40 MEQ/D5-1/2NS 1L 40 MEQ/1,000 ML RTUINJ IV PRN (17:33)
[2018-11-07 17:44] LABS: CREATINE KINASE MB 0.89 ng/mL (<4.55)
[2018-11-07 17:48] LABS: TROPONIN I < 0.012 ng/mL
[2018-11-07] MEDS: AZTREONAM 1 GM in DEXTROSE 5%-WATER 50 ML IV SCH (18:40)
--- NOTE | 2018-11-07 20:30 | PDOC H&P ---
History of Present Illness Admission Date/PCP: 11/07/18 14:23 JOHN CANNON MD History of Present Illness: H[place] is a 48 year old female.Patient came to the emergency room this morning for evaluation of weakness, when EMS arrived at patient's residence the vital signs recorded was temperature 101, heart rate 120 blood pressure was 70 systolic patient was then transported to the emergency room for further evaluation. The blood pressure recorded in the ER was 89 systolic she was also found to have decubitus ulcer in the coccyx that measure 5.5 cm. Initial blood work in the emergency room revealed elevated lactic acid, she was also found to have severe hypokalemia the serum potassium was 1.8 patient denies any diarrhea a CAT scan of the abdomen and pelvis with IV was contrast was performed, it showed multifocal bilateral groundglass lung opacity of the lung bases there is severe cardiomegaly also found was severe thickening of the terminal ileum cecum and proximal transverse colon patient was admitted to ICU I saw in the unit, she recently had left knee replacement done Past Medical History Cardiac Medical History: Reports: Hyperlipidema, Hypertension Pulmonary Medical History: Reports: Pneumonia Endocrine Medical History: Reports: Diabetes Mellitus Type 2 Malignancy Medical History: Reports: Ovarian Cancer GI Medical History: Reports: Gastroesophageal Reflux Disease Musculoskeltal Medical History: Reports: Arthritis Psychiatric Medical History: Reports: Bipolar Disorder, Depression Hematology: Reports: Anemia Past Surgical History Past Surgical History: Reports: Cholecystectomy, Gastric Bypass Surgery, Hysterectomy, Orthopedic Surgery - LLE, left jaw, total left hip arthroplasty on 09/08/2018. Social History Smoking Status: Current Every Day Smoker Cigarettes Packs Per Day: 15 Cigars Per Day: 0 Pipes Per Day: 0 Last Time Smoked: 11/06/2018 Frequency of Alcohol Use: Rare Hx Recreational Drug Use: No Drugs: None Hx Prescription Drug Abuse: No Family History Family History: DM, Hypertension Parental Family History Reviewed: Yes Children Family History Reviewed: Yes Sibling(s) Family History Reviewed.: Yes Medication/Allergy Home Medications: Benztropine Mesylate 1 mg PO BID 02/18/18 Biotin 5,000 mcg PO [id number] 02/18/18 Esomeprazole Magnesium [Nexium] 40 mg PO DAILY 02/18/18 Levothyroxine Sodium [Synthroid 0.088 mg Tablet] 0.088 mg PO Q6AM 02/18/18 Lurasidone HCl [Latuda] 40 mg PO BIDBS 02/18/18 Lisinopril [Prinivil 2.5 mg Tablet] 2.5 mg PO DAILY #30 tablet 02/28/18 Sertraline HCl [Zoloft 50 mg Tablet] 100 mg PO DAILY 08/20/18 Aspirin [Ecotrin] 81 mg PO DAILY 09/08/18 Amitriptyline HCl [Elavil 100 mg Tablet] 100 mg PO DAILY 11/07/18 Carvedilol [Coreg 3.125 mg Tablet] 3.125 mg PO Q12 11/07/18 Fludrocortisone Acetate [Florinef 0.1 mg Tablet] 0.1 mg PO DAILY 11/07/18 Furosemide [Lasix 40 mg Tablet] 40 mg PO BID 11/07/18 Gabapentin [Neurontin 300 mg Capsule] 300 mg PO Q8 11/07/18 Meloxicam [Mobic] 7.5 mg PO DAILY 11/07/18 Naloxegol Oxalate [Movantik 25 mg Tablet] 25 mg PO QAM 11/07/18 Ondansetron [Zofran Odt 4 mg Tablet] 2 tab PO Q12 11/07/18 Oxycodone HCl [Oxycodone HCl 10 MG Tablet] 10 mg PO Q4HP PRN 11/07/18 Potassium Chloride 20 meq PO DAILY 11/07/18 Topiramate [Topamax] 25 mg PO QAM 11/07/18 Topiramate [Topamax] 50 mg PO QPM 11/07/18 Allergies/Adverse Reactions: cilastatin [From Primaxin IV] Allergy (Intermediate, Verified 09/08/18 10:48) Facial swelling imipenem [From Primaxin IV] Allergy (Intermediate, Verified 09/08/18 10:48) Facial swelling Penicillins Allergy (Mild, Verified 09/08/18 10:48) Generalized rash Sulfa (Sulfonamide Antibiotics) Allergy (Mild, Verified 09/08/18 10:48) Generalized rash Review of Systems Constitutional: PRESENT: chills, fatigue, fever(s), weakness Ears: ABSENT: as per HPI, hearing changes, other Nose, Mouth, and Throat: PRESENT: sore throat Cardiovascular: PRESENT: palpitations Respiratory: PRESENT: dyspnea Gastrointestinal: PRESENT: diarrhea, nausea Genitourinary: PRESENT: difficulty urinating Musculoskeletal: PRESENT: back pain Psychiatric: PRESENT: depression Physical Exam Vital Signs: Temp Pulse Resp BP Pulse Ox 100.9 F H 91 19 111/76 95 11/07/18 19:38 11/07/18 18:29 11/07/18 18:29 11/07/18 18:29 11/07/18 18:29 Intake & Output 11/06/18 11/07/18 11/08/18 06:59 06:59 06:59 Intake Total 3076 Output Total 1145 Balance 1931 Weight 59.8 kg General appearance: PRESENT: other - Patient is alert answers questions appropriately Head exam: PRESENT: atraumatic, normocephalic Eye exam: PRESENT: conjunctiva pink, EOMI, PERRLA Ear exam: PRESENT: normal external ear exam Mouth exam: PRESENT: moist, tongue midline Neck exam: PRESENT: full ROM Respiratory exam: PRESENT: rhonchi Cardiovascular exam: PRESENT: RRR, +S1, +S2 Vascular exam: PRESENT: normal capillary refill GI/Abdominal exam: PRESENT: normal bowel sounds, soft Rectal exam: PRESENT: deferred Extremities exam: PRESENT: other - sacral decubitus ulcer stage 4 Neurological exam: PRESENT: alert, CN II-XII grossly intact Psychiatric exam: PRESENT: appropriate affect, normal mood Skin exam: PRESENT: dry, intact, warm Results Laboratory Results: 11/07/18 08:10 11/07/18 09:57 11/07/18 11/07/18 11/07/18 08:10 08:10 08:10 WBC 15.6 H RBC 2.96 L Hgb 9.7 L Hct 29.9 L MCV 101 H D MCH 32.9 MCHC 32.5 RDW 17.6 H Plt Count 250 Seg Neutrophils % 83.7 H Lymphocytes % 12.0 L Monocytes % 3.2 Eosinophils % 0.1 Basophils % 1.0 Absolute Neutrophils 13.0 H Absolute Lymphocytes 1.9 Absolute Monocytes 0.5 Absolute Eosinophils 0.0 Absolute Basophils 0.1 Carbonic Acid HCO3/H2CO3 Ratio ABG pH ABG pCO2 ABG pO2 ABG HCO3 ABG O2 Saturation ABG Base Excess VBG pH VBG pCO2 VBG HCO3 VBG Base Excess FiO2 Sodium Cancelled Potassium Cancelled Chloride Cancelled Carbon Dioxide Cancelled Anion Gap Cancelled BUN Cancelled Creatinine Cancelled Est GFR ( Amer) Cancelled Est GFR (Non-Af Amer) Cancelled Glucose Cancelled Lactic Acid 5.7 H Calcium Cancelled Ionized Calcium Ney Phosphorus Magnesium Cancelled Total Bilirubin Cancelled AST Cancelled ALT Cancelled Alkaline Phosphatase Cancelled Ammonia Total Protein Cancelled Albumin Cancelled Amylase Lipase TSH Free T4 Urine Color Urine Appearance Urine pH Ur Specific Jay Urine Protein Urine Glucose (UA) Urine Ketones Urine Blood Urine Nitrite Ur Leukocyte Esterase Urine WBC (Auto) Urine RBC (Auto) 11/07/18 11/07/18 11/07/18 08:10 08:10 08:30 WBC RBC Hgb Hct MCV MCH MCHC RDW Plt Count Seg Neutrophils % Lymphocytes % Monocytes % Eosinophils % Basophils % Absolute Neutrophils Absolute Lymphocytes Absolute Monocytes Absolute Eosinophils Absolute Basophils Carbonic Acid HCO3/H2CO3 Ratio ABG pH ABG pCO2 ABG pO2 ABG HCO3 ABG O2 Saturation ABG Base Excess VBG pH 7.49 H VBG pCO2 35.7 VBG HCO3 26.3 VBG Base Excess 2.7 FiO2 Sodium Potassium Chloride Carbon Dioxide Anion Gap BUN Creatinine Est GFR ( Amer) Est GFR (Non-Af Amer) Glucose Lactic Acid Calcium Ionized Calcium Ney Phosphorus Magnesium Total Bilirubin AST ALT Alkaline Phosphatase Ammonia Total Protein Albumin Amylase Lipase 11.0 L TSH Free T4 Urine Color YELLOW Urine Appearance CLEAR Urine pH 5.0 Ur Specific Jay 1.012 Urine Protein NEGATIVE Urine Glucose (UA) NEGATIVE Urine Ketones NEGATIVE Urine Blood NEGATIVE Urine Nitrite NEGATIVE Ur Leukocyte Esterase NEGATIVE Urine WBC (Auto) 1 Urine RBC (Auto) 0 11/07/18 11/07/18 11/07/18 09:57 09:57 09:57 WBC RBC Hgb Hct MCV MCH MCHC RDW Plt Count Seg Neutrophils % Lymphocytes % Monocytes % Eosinophils % Basophils % Absolute Neutrophils Absolute Lymphocytes Absolute Monocytes Absolute Eosinophils Absolute Basophils Carbonic Acid HCO3/H2CO3 Ratio ABG pH ABG pCO2 ABG pO2 ABG HCO3 ABG O2 Saturation ABG Base Excess VBG pH VBG pCO2 VBG HCO3 VBG Base Excess FiO2 Sodium 140.2 Potassium 1.8 L* Chloride 108 H Carbon Dioxide 25 Anion Gap 7 BUN 13 Creatinine 0.70 Est GFR ( Amer) > 60 Est GFR (Non-Af Amer) > 60 Glucose 91 Lactic Acid Calcium 6.2 L* Ionized Calcium Ney 0.94 L Phosphorus 2.8 Magnesium 1.6 Cancelled Total Bilirubin 0.6 AST 35 ALT 35 Alkaline Phosphatase 219 H Ammonia Total Protein 3.9 L Albumin 1.5 L Amylase < 30 L Lipase 16.6 L TSH Free T4 Urine Color Urine Appearance Urine pH Ur Specific Jay Urine Protein Urine Glucose (UA) Urine Ketones Urine Blood Urine Nitrite Ur Leukocyte Esterase Urine WBC (Auto) Urine RBC (Auto) 11/07/18 11/07/18 11/07/18 09:57 12:27 16:11 WBC RBC Hgb Hct MCV MCH MCHC RDW Plt Count Seg Neutrophils % Lymphocytes % Monocytes % Eosinophils % Basophils % Absolute Neutrophils Absolute Lymphocytes Absolute Monocytes Absolute Eosinophils Absolute Basophils Carbonic Acid HCO3/H2CO3 Ratio ABG pH ABG pCO2 ABG pO2 ABG HCO3 ABG O2 Saturation ABG Base Excess VBG pH VBG pCO2 VBG HCO3 VBG Base Excess FiO2 Sodium Potassium Chloride Carbon Dioxide Anion Gap BUN Creatinine Est GFR ( Amer) Est GFR (Non-Af Amer) Glucose Lactic Acid 1.4 Calcium Ionized Calcium Ney Phosphorus Magnesium Total Bilirubin AST ALT Alkaline Phosphatase Ammonia Total Protein Albumin Amylase Lipase TSH 0.08 L Free T4 1.53 Urine Color YELLOW Urine Appearance CLEAR Urine pH 6.0 Ur Specific Jay 1.038 Urine Protein NEGATIVE Urine Glucose (UA) NEGATIVE Urine Ketones TRACE H Urine Blood NEGATIVE Urine Nitrite NEGATIVE Ur Leukocyte Esterase NEGATIVE Urine WBC (Auto) 6 Urine RBC (Auto) 1 11/07/18 11/07/18 16:29 17:05 WBC RBC Hgb Hct MCV MCH MCHC RDW Plt Count Seg Neutrophils % Lymphocytes % Monocytes % Eosinophils % Basophils % Absolute Neutrophils Absolute Lymphocytes Absolute Monocytes Absolute Eosinophils Absolute Basophils Carbonic Acid 1.06 HCO3/H2CO3 Ratio 25:1 ABG pH 7.51 H ABG pCO2 35.1 ABG pO2 70.5 L ABG HCO3 27.3 H ABG O2 Saturation 95.6 ABG Base Excess 4.1 VBG pH VBG pCO2 VBG HCO3 VBG Base Excess FiO2 21% Sodium Potassium Chloride Carbon Dioxide Anion Gap BUN Creatinine Est GFR ( Amer) Est GFR (Non-Af Amer) Glucose Lactic Acid Calcium Ionized Calcium Ney Phosphorus Magnesium Total Bilirubin AST ALT Alkaline Phosphatase Ammonia 29.2 Total Protein Albumin Amylase Lipase TSH Free T4 Urine Color Urine Appearance Urine pH Ur Specific Jay Urine Protein Urine Glucose (UA) Urine Ketones Urine Blood Urine Nitrite Ur Leukocyte Esterase Urine WBC (Auto) Urine RBC (Auto) 11/07/18 11/07/18 11/07/18 08:10 09:57 17:05 Creatine Kinase 89 CK-MB (CK-2) Troponin I Cancelled < 0.012 NT-Pro-B Natriuret Pep Cancelled 172 H 11/07/18 17:05 Creatine Kinase CK-MB (CK-2) 0.89 Troponin I < 0.012 NT-Pro-B Natriuret Pep Impressions: Chest X-Ray 11/07/18 08:06 IMPRESSION: NO ACUTE RADIOGRAPHIC FINDING IN THE CHEST. Abdomen/Pelvis CT 11/07/18 10:58 IMPRESSION: 1. There is severe thickening of the terminal ileum, cecum, and proximal transverse colon, consistent with nonspecific infectious or inflammatory colitis. This pattern of inflammation may be seen in inflammatory bowel disease such as Crohn's disease. Correlate for appropriate history of clinical signs and symptoms if present. 2. Hepatomegaly and severe hepatic steatosis. 3. Status post Shanthi-en-Y gastric bypass. 4. Multifocal bilateral geographic ground-glass pulmonary opacity in the included bilateral lung bases, an unusual pattern that can be seen in atypical infection as well as inflammatory pneumonitis such as organizing pneumonia. Assessment & Plan - Diagnosis (1) Septic shock Is this a current diagnosis for this admission?: Yes Plan: Patient presented with evidence of early septic shock with hypotension, lactic acidosis cold extremities, start antibiotic to cover gram-negative, MRSA species (2) Metabolic alkalosis Is this a current diagnosis for this admission?: Yes (3) Sacral decubitus ulcer, stage IV Is this a current diagnosis for this admission?: Yes Plan: Consult surgery for debridement (4) Colitis Is this a current diagnosis for this admission?: Yes Plan: She has very impressive colitis on the CAT scan, she will need colonoscopy at one point (5) Multifocal pneumonia Is this a current diagnosis for this admission?: Yes (6) Hemiparesis affecting left side as late effect of cerebrovascular accident Is this a current diagnosis for this admission?: Yes (7) Hypoalbuminemia Is this a current diagnosis for this admission?: Yes Plan: There is severe hypoalbuminemia, the urine protein is negative also found was severe hepatomegaly with fatty liver history of gastric bypass (8) Edema due to hypoalbuminemia Is this a current diagnosis for this admission?: Yes (9) Hypokalemia Is this a current diagnosis for this admission?: Yes Plan: She has severe hypokalemia, 1.8, The urine potassium is 22.5, the urine sodium is 19, 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
[2018-11-07] MEDS ORDERED: ACETAMINOPHEN 325 MG TABLET ONE (21:26)
[2018-11-07] MEDS: ACETAMINOPHEN 325 MG TABLET PO PRN (21:26)
[2018-11-07] MEDS: OXYCODONE HCL IR 5 MG TABLET PO PRN (22:41)
[2018-11-07] MEDS: VANCOMYCIN HCL 1,000 MG in DEXTROSE 5%-WATER 250 ML IV SCH (22:42)
[2018-11-07 23:35] LABS: CREATINE KINASE MB 0.92 ng/mL (<4.55)
[2018-11-07 23:41] LABS: TROPONIN I < 0.012 ng/mL
[2018-11-08] MEDS: DEXTROSE 5%-WATER 250 ML with NOREPINEPHRINE BITARTRATE 4 MG IV PRN ×2 (02:03)
[2018-11-08] MEDS: POTASSI CL 40 MEQ/D5-1/2NS 1L 40 MEQ/1,000 ML RTUINJ IV PRN (04:00)
[2018-11-08] MEDS: HEPARIN SOD (PORCINE) 5,000 UNIT/ML 1 ML SYRINGE SUBCUT SCH ×3 (05:41→21:41)
[2018-11-08] MEDS: OXYCODONE HCL IR 5 MG TABLET PO PRN ×4 (05:41→21:41)
[2018-11-08] MEDS: AZTREONAM 1 GM in DEXTROSE 5%-WATER 50 ML IV SCH ×3 (05:42→17:33)
[2018-11-08 06:07] LABS: CREATINE KINASE MB 0.68 ng/mL (<4.55)
[2018-11-08 06:08] LABS: TROPONIN I < 0.012 ng/mL
[2018-11-08 06:59] LABS: ABSOLUTE BASOPHILS # (AUTO) 0.2 10^3/uL (0.0-0.2); ABSOLUTE EOSINOPHILS # (AUTO) 0.1 10^3/uL (0.0-0.6); ABSOLUTE LYMPHOCYTES (AUTO) 1.8 10^3/uL (0.5-4.7); ABSOLUTE MONOCYTES (AUTO) 0.5 10^3/uL (0.1-1.4); BASOPHILS % (AUTO) 1.1 % (0-2); EOSINOPHILS % (AUTO) 0.4 % (0-6); HEMATOCRIT 30.8 % (36.0-47.0); HEMOGLOBIN 10.2 g/dL (12.0-15.5); LYMPHOCYTES % (AUTO) 11.1 % (13-45); MEAN CORPUSCULAR HEMOGLOBIN 33.2 pg (27.0-33.4); MEAN CORPUSCULAR VOLUME 101 fl (80-97); MONOCYTES % (AUTO) 2.8 % (3-13); PLATELET COUNT 273 10^3/uL (150-450); RED BLOOD COUNT 3.07 10^6/uL (3.72-5.28); RED CELL DISTRIBUTION WIDTH 17.6 % (11.5-14.0); SEGMENTED NEUTROPHILS % (AUTO) 84.6 % (42-78); TOTAL CELLS COUNTED % (AUTO) 100 %; WHITE BLOOD COUNT 16.5 10^3/uL (4.0-10.5)
[2018-11-08 07:07] LABS: ALANINE AMINOTRANSFERASE 32 U/L (9-52); ALBUMIN 1.5 g/dL (3.5-5.0); ALKALINE PHOSPHATASE 228 U/L (38-126); ANION GAP 6 (5-19); ASPARTATE AMINO TRANSFERASE 27 U/L (14-36); BILIRUBIN,DIRECT 0.4 mg/dL (0.0-0.4); BILIRUBIN,TOTAL 0.5 mg/dL (0.2-1.3); BLOOD UREA NITROGEN 7 mg/dL (7-20); CARBON DIOXIDE 22 mmol/L (22-30); CHLORIDE 111 mmol/L (98-107); CREATINE KINASE 73 U/L (30-135); GLUCOSE 118 mg/dL (75-110); SODIUM 139.4 mmol/L (137-145); TOTAL PROTEIN 3.7 g/dL (6.3-8.2); TRIGLYCERIDES 124 mg/dL (<150)
[2018-11-08 07:18] LABS: DIRECT LDL 31 mg/dL (<100)
[2018-11-08 07:19] LABS: CHOLESTEROL < 50.00 mg/dL (0-200)
[2018-11-08 07:21] LABS: CALCIUM 6.7 mg/dL (8.4-10.2)
[2018-11-08] MEDS: ACETAMINOPHEN 325 MG TABLET PO PRN ×2 (11:05→20:45)
[2018-11-08] MEDS: VANCOMYCIN HCL 1,000 MG in DEXTROSE 5%-WATER 250 ML IV SCH ×2 (11:16→21:41)
--- NOTE | 2018-11-08 11:29 | RADIOLOGY REPORT (SQ) ---
EXAM DESCRIPTION: CHEST SINGLE VIEW COMPLETED DATE/TIME: 11/08/2018 11:02 am REASON FOR STUDY: CENTRAL LINE PLACEMENT COMPARISON: Previous day. EXAM PARAMETERS: NUMBER OF VIEWS: One view. TECHNIQUE: Single frontal radiographic view of the chest acquired. RADIATION DOSE: NA LIMITATIONS: None. FINDINGS: LUNGS AND PLEURA: Increasing airspace opacities in the left lower lobe. No pneumothorax. MEDIASTINUM AND HILAR STRUCTURES: Stable. HEART AND VASCULAR STRUCTURES: Heart normal in size. Normal vasculature. BONES: No acute findings. HARDWARE: None in the chest. OTHER: Right-sided central line tip overlying SVC. IMPRESSION: Good position of central line. No pneumothorax. TECHNICAL DOCUMENTATION: JOB ID: [id number] [email or web address] All Rights Reserved Reading location - IP/workstation name: [email or web address]
[2018-11-08] MEDS ORDERED: PHENYLEPHRINE HCL INJ/PF 10 MG/1 ML SDV ONE (13:10)
[2018-11-08] MEDS: DEXTROSE 5%-WATER 250 ML with PHENYLEPHRINE HCL 40 MG IV PRN ×6 (13:20→21:42)
[2018-11-08] MEDS: POTASSI CL 40 MEQ/D5-1/2NS 1L 1000 ML IV PRN ×3 (13:30→19:00)
--- NOTE | 2018-11-08 13:38 | PDOC PROGRESS REPORT ---
Subjective Progress Note for:: 11/08/18 Subjective:: This is a 48-year-old female with recently have a right hip surgery and patients went to the rehab facility and patient started developing the decubitus ulcers which is a 5 cm size in patients pretty much not able to move much came to the emergency departments with the temperature is 101 and a systolic blood pressure is around 70 and patient was fine with the gram negatives septic shock Patient was started on IV fluid and IV antibiotic and a pressure Is alert awake and oriented patient's blood pressure is 88 systolic currently on a pressure Patient is making good urine output Patient had a CT scan of the abdomen and pelvis was done which shows some bilateral groundglass lung opacity which suggest a pneumonia Patient urine culture is positive for gram-negative organism Patient have a decubitus ulcer is also positive for the bacteria Patient is CT scan of the abdomen and pelvis also saw some thickening of the cecum Reason For Visit: SEPSIS, BILATERAL PNEUMONIA, HYPOTENSION, Physical Exam Vital Signs: Temp Pulse Resp BP Pulse Ox 101.1 F H 108 H 12 102/56 L 94 11/08/18 12:00 11/07/18 20:00 11/08/18 06:23 11/08/18 06:23 11/08/18 06:23 Intake & Output 11/07/18 11/08/18 11/09/18 06:59 06:59 06:59 Intake Total 4665 531 Output Total 1375 245 Balance 3290 286 Weight 61.2 kg General appearance: PRESENT: no acute distress, well-developed, well-nourished Head exam: PRESENT: atraumatic, normocephalic Eye exam: PRESENT: conjunctiva pink, EOMI, PERRLA. ABSENT: scleral icterus Ear exam: PRESENT: normal external ear exam Mouth exam: PRESENT: moist, tongue midline Neck exam: PRESENT: full ROM. ABSENT: carotid bruit, JVD, lymphadenopathy, thyromegaly Respiratory exam: PRESENT: clear to auscultation rona Cardiovascular exam: PRESENT: RRR. ABSENT: diastolic murmur, rubs, systolic murmur Pulses: PRESENT: normal dorsalis pedis pul, +2 pedal pulses bilateral Vascular exam: PRESENT: normal capillary refill GI/Abdominal exam: PRESENT: normal bowel sounds, soft. ABSENT: distended, guarding, mass, organolmegaly, rebound, tenderness Rectal exam: PRESENT: deferred Additional comments: Patient have a 5 cm size circular decubitus ulcer is present Neurological exam: PRESENT: alert, awake, oriented to person, oriented to place, oriented to time, oriented to situation, CN II-XII grossly intact. ABSENT: motor sensory deficit Psychiatric exam: PRESENT: appropriate affect, normal mood. ABSENT: homicidal ideation, suicidal ideation Skin exam: PRESENT: dry, intact, warm. ABSENT: cyanosis, rash Results Laboratory Results: 11/08/18 06:44 11/08/18 05:00 11/07/18 11/07/18 11/07/18 09:57 09:57 16:11 WBC RBC Hgb Hct MCV MCH MCHC RDW Plt Count Seg Neutrophils % Lymphocytes % Monocytes % Eosinophils % Basophils % Absolute Neutrophils Absolute Lymphocytes Absolute Monocytes Absolute Eosinophils Absolute Basophils Carbonic Acid HCO3/H2CO3 Ratio ABG pH ABG pCO2 ABG pO2 ABG HCO3 ABG O2 Saturation ABG Base Excess FiO2 Sodium Potassium Chloride Carbon Dioxide Anion Gap BUN Creatinine Est GFR ( Amer) Est GFR (Non-Af Amer) Glucose Calcium Phosphorus 2.8 Magnesium Cancelled Total Bilirubin AST ALT Alkaline Phosphatase Ammonia Total Protein Albumin Triglycerides Cholesterol LDL Cholesterol Direct VLDL Cholesterol HDL Cholesterol Amylase < 30 L Lipase 16.6 L TSH 0.08 L Free T4 1.53 Urine Color YELLOW Urine Appearance CLEAR Urine pH 6.0 Ur Specific [place] 1.038 Urine Protein NEGATIVE Urine Glucose (UA) NEGATIVE Urine Ketones TRACE H Urine Blood NEGATIVE Urine Nitrite NEGATIVE Ur Leukocyte Esterase NEGATIVE Urine WBC (Auto) 6 Urine RBC (Auto) 1 11/07/18 11/07/18 11/08/18 16:29 17:05 05:00 WBC RBC Hgb Hct MCV MCH MCHC RDW Plt Count Seg Neutrophils % Lymphocytes % Monocytes % Eosinophils % Basophils % Absolute Neutrophils Absolute Lymphocytes Absolute Monocytes Absolute Eosinophils Absolute Basophils Carbonic Acid 1.06 HCO3/H2CO3 Ratio 25:1 ABG pH 7.51 H ABG pCO2 35.1 ABG pO2 70.5 L ABG HCO3 27.3 H ABG O2 Saturation 95.6 ABG Base Excess 4.1 FiO2 21% Sodium 139.4 Potassium 3.0 L* D Chloride 111 H Carbon Dioxide 22 Anion Gap 6 BUN 7 Creatinine 0.47 L Est GFR ( Amer) > 60 Est GFR (Non-Af Amer) > 60 Glucose 118 H Calcium 6.7 L* Phosphorus Magnesium Total Bilirubin 0.5 AST 27 ALT 32 Alkaline Phosphatase 228 H Ammonia 29.2 Total Protein 3.7 L Albumin 1.5 L Triglycerides 124 Cholesterol < 50.00 LDL Cholesterol Direct 31 VLDL Cholesterol 25.0 HDL Cholesterol 18 L Amylase Lipase TSH Free T4 Urine Color Urine Appearance Urine pH Ur Specific [place] Urine Protein Urine Glucose (UA) Urine Ketones Urine Blood Urine Nitrite Ur Leukocyte Esterase Urine WBC (Auto) Urine RBC (Auto) 11/08/18 06:44 WBC 16.5 H RBC 3.07 L Hgb 10.2 L Hct 30.8 L MCV 101 H MCH 33.2 MCHC 33.0 RDW 17.6 H Plt Count 273 Seg Neutrophils % 84.6 H Lymphocytes % 11.1 L Monocytes % 2.8 L Eosinophils % 0.4 Basophils % 1.1 Absolute Neutrophils 14.0 H Absolute Lymphocytes 1.8 Absolute Monocytes 0.5 Absolute Eosinophils 0.1 Absolute Basophils 0.2 Carbonic Acid HCO3/H2CO3 Ratio ABG pH ABG pCO2 ABG pO2 ABG HCO3 ABG O2 Saturation ABG Base Excess FiO2 Sodium Potassium Chloride Carbon Dioxide Anion Gap BUN Creatinine Est GFR ( Amer) Est GFR (Non-Af Amer) Glucose Calcium Phosphorus Magnesium Total Bilirubin AST ALT Alkaline Phosphatase Ammonia Total Protein Albumin Triglycerides Cholesterol LDL Cholesterol Direct VLDL Cholesterol HDL Cholesterol Amylase Lipase TSH Free T4 Urine Color Urine Appearance Urine pH Ur Specific [place] Urine Protein Urine Glucose (UA) Urine Ketones Urine Blood Urine Nitrite Ur Leukocyte Esterase Urine WBC (Auto) Urine RBC (Auto) 11/07/18 11/07/18 11/07/18 08:10 09:57 17:05 Creatine Kinase 89 CK-MB (CK-2) Troponin I Cancelled < 0.012 NT-Pro-B Natriuret Pep Cancelled 172 H 11/07/18 11/07/18 11/07/18 17:05 23:02 23:02 Creatine Kinase 104 CK-MB (CK-2) 0.89 0.92 Troponin I < 0.012 < 0.012 NT-Pro-B Natriuret Pep 11/08/18 11/08/18 05:00 05:00 Creatine Kinase 73 CK-MB (CK-2) 0.68 Troponin I < 0.012 NT-Pro-B Natriuret Pep Impressions: Abdomen/Pelvis CT 11/07/18 10:58 IMPRESSION: 1. There is severe thickening of the terminal ileum, cecum, and proximal transverse colon, consistent with nonspecific infectious or inflammatory colitis. This pattern of inflammation may be seen in inflammatory bowel disease such as Crohn's disease. Correlate for appropriate history of clinical signs and symptoms if present. 2. Hepatomegaly and severe hepatic steatosis. 3. Status post Shanthi-en-Y gastric bypass. 4. Multifocal bilateral geographic ground-glass pulmonary opacity in the included bilateral lung bases, an unusual pattern that can be seen in atypical infection as well as inflammatory pneumonitis such as organizing pneumonia. Chest X-Ray 11/08/18 00:00 IMPRESSION: Good position of central line. No pneumothorax. Assessment & Plan - Diagnosis (1) Gram negative septic shock Is this a current diagnosis for this admission?: Yes Plan: Continues the broad-spectrum IV antibiotic until the culture and sensitivity back (2) Colitis Is this a current diagnosis for this admission?: Yes Plan: Continues to IV antibiotic at the [place] discussed with the surgery also going to follow patient's currently denied any abdominal pain (3) Anemia Qualifiers: Anemia type: unspecified type Qualified Code(s): D64.9 - Anemia, unspecified Is this a current diagnosis for this admission?: Yes Plan: History of his gastric bypass (4) Hypotension (arterial) Qualifiers: Hypotension type: unspecified hypotension type Qualified Code(s): I95.9 - Hypotension, unspecified Is this a current diagnosis for this admission?: Yes Plan: To the septic shock currently on a pressure support on IV fluid (5) Sacral decubitus ulcer, stage II Is this a current diagnosis for this admission?: Yes Plan: Discussed with the surgery no need for debridement at this point (6) Multifocal pneumonia Is this a current diagnosis for this admission?: Yes Plan: Continues to IV antibiotic will get the sputum culture consult the pulmonary (7) Status post gastric bypass for obesity Is this a current diagnosis for this admission?: Yes - Time Time Spent with patient: 25-34 minutes Total Critical Time (Minutes): 25 Medications reviewed and adjusted accordingly: Yes Anticipated discharge: Home - Plan Summary Plan Summary: Continue IV antibiotic Continues IV fluid Follow with the pulmonary and surgery Will wait for the culture and sensitivity
[2018-11-08] MEDS: METRONIDAZOLE 500 MG/NS RTU 500 MG/100 ML RTUPB IV SCH ×2 (13:44→17:33)
[2018-11-08] MEDS: SERTRALINE HCL 50 MG TABLET PO SCH (13:49)
[2018-11-08] MEDS: TOPIRAMATE 25 MG TABLET PO SCH ×2 (13:49→17:33)
[2018-11-08] MEDS: LEVOTHYROXINE SODIUM 0.088 MG TABLET PO SCH (13:49)
[2018-11-08] MEDS: LANSOPRAZOLE 30 MG TAB.RAP.DR PO SCH (13:49)
[2018-11-08] MEDS: POTASSIUM CHLORIDE 20 MEQ/50 ML RTU IV SCH ×3 (13:50→17:31)
--- NOTE | 2018-11-08 15:42 | OPERATIVE REPORT E ---
Operative Report NAME: HILTON MI : 1970 AGE: 48Y DATE OF SURGERY: 11/08/2018 ROOM: 603 PREOPERATIVE DIAGNOSIS: POOR VEINS FOR INTRAVENOUS ACCESS. POSTOPERATIVE DIAGNOSIS: POOR VEINS FOR INTRAVENOUS ACCESS. OPERATION: INSERTION OF RIGHT SUBCLAVIAN TRIPLE LUMEN CATHETER. SURGEON: CHIO GRAY M.D. ANESTHESIA: Local. INDICATION: This is a 48-year-old female who needed IV access for medications and antibiotics. PROCEDURE: The patient was placed in slight Trendelenburg position, and right clavicular area was then prepped and draped in the usual sterile fashion. Local anesthesia was then placed in the right infraclavicular area and the right subclavian vein subsequently punctured, and guidewire passed through the needle toward the area of the superior vena cava. The needle was removed and the puncture site dilated, and a triple lumen catheter inserted through the guidewire to a distance of about 14 cm. The catheter was then anchored to the skin with 3-0 silk. All 3 ports aspirated blood easily and instilled saline easily. Sterile dressing was placed over the operative sites. Needle, instrument, and sponge counts all correct. The patient tolerated the procedure well. A chest x-ray will be obtained for placement. ESTIMATED BLOOD LOSS: Minimal. DICTATING PHYSICIAN: CHIO GRAY M.D. [id number] PHY#: [id number] ID: [id number] JOB#: [id number] ACCT: [id number] cc:CHIO GRAY M.D. >
[2018-11-08] MEDS: DEXTROSE 5%-WATER 250 ML with VASOPRESSIN 100 UNIT IV PRN ×2 (16:00)
[2018-11-08 17:32] LABS: HEMATOCRIT 30.3 % (36.0-47.0); HEMOGLOBIN 9.8 g/dL (12.0-15.5); MEAN CORPUSCULAR HEMOGLOBIN 32.8 pg (27.0-33.4); MEAN CORPUSCULAR HGB CONC 32.4 g/dL (32.0-36.0); MEAN CORPUSCULAR VOLUME 101 fl (80-97); PLATELET COUNT 313 10^3/uL (150-450)
[2018-11-08 17:38] LABS: BLOOD UREA NITROGEN 6 mg/dL (7-20); CARBON DIOXIDE 24 mmol/L (22-30); CHLORIDE 111 mmol/L (98-107); GLUCOSE 136 mg/dL (75-110)
[2018-11-08 17:43] LABS: SODIUM 138.2 mmol/L (137-145)
[2018-11-08 17:45] LABS: ANION GAP 3 (5-19)
[2018-11-08 17:46] LABS: CALCIUM 6.8 mg/dL (8.4-10.2)
[2018-11-08 17:53] LABS: ABSOLUTE LYMPHOCYTES# (MANUAL) 1.7 10^3/uL (0.5-4.7); ABSOLUTE MONOCYTES # (MANUAL) 0.2 10^3/uL (0.1-1.4); ABSOLUTE NEUTROPHILS# (MANUAL) 22.1 10^3/uL (1.7-8.2); BASOPHILS % (MANUAL) 0 % (0-2); EOSINOPHILS % (MANUAL) 0 % (0-6); LYMPHOCYTES % (MANUAL) 7 % (13-45); MONOCYTES % (MANUAL) 1 % (3-13); SEGMENTED NEUTROPHILS % (MAN) 92 % (42-78); TOTAL CELLS COUNTED 100
[2018-11-08 17:54] LABS: ANISOCYTOSIS 1+; PLATELET COMMENT ADEQUATE
[2018-11-08] MEDS ORDERED: 1/4 NORMAL SALINE IV PRN ×2 (20:01)
[2018-11-08] MEDS ORDERED: POTASSIUM CHLORIDE IV PRN ×2 (20:01)
[2018-11-08] MEDS ORDERED: DEXTROSE 5% IV PRN ×2 (20:01)
--- NOTE | 2018-11-08 22:01 | PDOC CONSULTATION ---
Consultation Consult Date: 11/08/18 Consult reason:: sacral decubitus ulcer History of Present Illness Admission Date/PCP: 11/07/18 14:23 JOHN CANNON MD Patient complains of: sacral decubitus discomfort History of Present Illness: HILTON MI is a 48 year old female admitted to ICU for sepsis and hypotension. I just placed a right subclavian vein triple lumen catheter. She had bilateral h ip surgery and has been quite bedridden and developed a sacral decubitus ulcer. Past Medical History Cardiac Medical History: Reports: Hyperlipidema, Hypertension Denies: Atrial Fibrillation, Congestive Heart Failure, Coronary Artery Disease, Myocardial Infarction, Peripheral Vascular Disease, Pulmonary Embolism, Heart Murmur Pulmonary Medical History: Reports: Pneumonia Denies: Asthma, Bronchitis, Chronic Obstructive Pulmonary Disease (COPD), Respiratory Failure, Sleep Apnea, Tuberculosis Neurological Medical History: Reports: Multiple Sclerosis Denies: Seizures Endocrine Medical History: Reports: Diabetes Mellitus Type 2 Denies: Diabetes Mellitus Type 1, Hyperthyroidism, Hypothyroidism Malignancy Medical History: Reports: Ovarian Cancer Denies: Breast Cancer, Cervical Cancer, Leukemia, Lung Cancer GI Medical History: Reports: Gastroesophageal Reflux Disease Denies: Cirrhosis, Crohn's Disease, Hepatitis, Hiatal Hernia Musculoskeltal Medical History: Reports: Arthritis Denies: Fibromyalgia Skin Medical History: Denies: Eczema, Psoriasis Psychiatric Medical History: Reports: Bipolar Disorder, Depression Denies: Dementia, Post Traumatic Stress Disorder Traumatic Medical History: Denies: Pneumothorax Hematology: Reports: Anemia Denies: Hemophilia, Sickle Cell Disease Infectious Medical History: Denies: HIV Past Surgical History Past Surgical History: Reports: Cholecystectomy, Gastric Bypass Surgery, Hysterectomy, Orthopedic Surgery - LLE, left jaw, total left hip arthroplasty on 09/08/2018. Denies: Amputation, Appendectomy, Section, Colostomy, Coronary Artery Bypass Graft, Herniorrhaphy, Mastectomy, Pacemaker, Tonsillectomy, Tubal Ligation Social History Smoking Status: Current Every Day Smoker Cigarettes Packs Per Day: 15 Cigars Per Day: 0 Pipes Per Day: 0 Last Time Smoked: 11/06/2018 Frequency of Alcohol Use: Rare Hx Recreational Drug Use: No Drugs: None Hx Prescription Drug Abuse: No Family History Family History: DM, Hypertension Parental Family History Reviewed: Yes Children Family History Reviewed: No Sibling(s) Family History Reviewed.: No Medication/Allergy Home Medications: Benztropine Mesylate 1 mg PO BID 02/18/18 Biotin 5,000 mcg PO [id number] 02/18/18 Esomeprazole Magnesium [Nexium] 40 mg PO DAILY 02/18/18 Levothyroxine Sodium [Synthroid 0.088 mg Tablet] 0.088 mg PO Q6AM 02/18/18 Lurasidone HCl [Latuda] 40 mg PO BIDBS 02/18/18 Lisinopril [Prinivil 2.5 mg Tablet] 2.5 mg PO DAILY #30 tablet 02/28/18 Sertraline HCl [Zoloft 50 mg Tablet] 100 mg PO DAILY 08/20/18 Aspirin [Ecotrin] 81 mg PO DAILY 09/08/18 Amitriptyline HCl [Elavil 100 mg Tablet] 100 mg PO DAILY 11/07/18 Carvedilol [Coreg 3.125 mg Tablet] 3.125 mg PO Q12 11/07/18 Fludrocortisone Acetate [Florinef 0.1 mg Tablet] 0.1 mg PO DAILY 11/07/18 Furosemide [Lasix 40 mg Tablet] 40 mg PO BID 11/07/18 Gabapentin [Neurontin 300 mg Capsule] 300 mg PO Q8 11/07/18 Meloxicam [Mobic] 7.5 mg PO DAILY 11/07/18 Naloxegol Oxalate [Movantik 25 mg Tablet] 25 mg PO QAM 11/07/18 Ondansetron [Zofran Odt 4 mg Tablet] 2 tab PO Q12 11/07/18 Oxycodone HCl [Oxycodone HCl 10 MG Tablet] 10 mg PO Q4HP PRN 11/07/18 Potassium Chloride 20 meq PO DAILY 11/07/18 Topiramate [Topamax] 25 mg PO QAM 11/07/18 Topiramate [Topamax] 50 mg PO QPM 11/07/18 Allergies/Adverse Reactions: cilastatin [From Primaxin IV] Allergy (Intermediate, Verified 09/08/18 10:48) Facial swelling imipenem [From Primaxin IV] Allergy (Intermediate, Verified 09/08/18 10:48) Facial swelling Penicillins Allergy (Mild, Verified 09/08/18 10:48) Generalized rash Sulfa (Sulfonamide Antibiotics) Allergy (Mild, Verified 09/08/18 10:48) Generalized rash Review of Systems Constitutional: PRESENT: fever(s) Eyes: PRESENT: other - no visual/hearing changes Cardiovascular: PRESENT: other - no chest pains/cough Gastrointestinal: PRESENT: other - no pains Genitourinary: PRESENT: other - no dysuria Neurological: PRESENT: weakness Physical Exam Vital Signs: Temp Pulse Resp BP Pulse Ox 101.5 F H 103 H 15 112/70 98 11/08/18 19:50 11/08/18 10:00 11/08/18 19:00 11/08/18 18:54 11/08/18 19:00 Intake & Output 11/07/18 11/08/18 11/09/18 06:59 06:59 06:59 Intake Total 4665 3260 Output Total 1375 700 Balance 3290 2560 Weight 61.2 kg General appearance: PRESENT: mild distress Head exam: PRESENT: atraumatic Eye exam: PRESENT: conjunctiva pink Mouth exam: PRESENT: moist Neck exam: PRESENT: full ROM Respiratory exam: PRESENT: clear to auscultation rona Cardiovascular exam: PRESENT: RRR Pulses: PRESENT: normal radial pulses Vascular exam: PRESENT: normal capillary refill GI/Abdominal exam: PRESENT: soft Rectal exam: PRESENT: other - Has a sacral decubitus ulcer about 2 cm wide x 6 cm long with dried skin eschar but no obvious abscess. Neurological exam: PRESENT: alert, oriented to person, oriented to place, oriented to time, oriented to situation Skin exam: PRESENT: normal color, warm Results Laboratory Results: 11/08/18 16:30 11/08/18 16:30 11/08/18 11/08/18 11/08/18 05:00 06:44 16:30 WBC 16.5 H 24.0 H RBC 3.07 L 3.00 L Hgb 10.2 L 9.8 L Hct 30.8 L 30.3 L MCV 101 H 101 H MCH 33.2 32.8 MCHC 33.0 32.4 RDW 17.6 H 17.0 H Plt Count 273 313 Seg Neutrophils % 84.6 H Not Reportable Lymphocytes % 11.1 L Not Reportable Monocytes % 2.8 L Not Reportable Eosinophils % 0.4 Not Reportable Basophils % 1.1 Not Reportable Absolute Neutrophils 14.0 H Not Reportable Absolute Lymphocytes 1.8 Not Reportable Absolute Monocytes 0.5 Not Reportable Absolute Eosinophils 0.1 Not Reportable Absolute Basophils 0.2 Not Reportable Carbonic Acid HCO3/H2CO3 Ratio ABG pH ABG pCO2 ABG pO2 ABG HCO3 ABG O2 Saturation ABG Base Excess FiO2 Sodium 139.4 Potassium 3.0 L* D Chloride 111 H Carbon Dioxide 22 Anion Gap 6 BUN 7 Creatinine 0.47 L Est GFR ( Amer) > 60 Est GFR (Non-Af Amer) > 60 Glucose 118 H Calcium 6.7 L* Magnesium Total Bilirubin 0.5 AST 27 ALT 32 Alkaline Phosphatase 228 H Total Protein 3.7 L Albumin 1.5 L Triglycerides 124 Cholesterol < 50.00 LDL Cholesterol Direct 31 VLDL Cholesterol 25.0 HDL Cholesterol 18 L 11/08/18 11/08/18 16:30 17:00 WBC RBC Hgb Hct MCV MCH MCHC RDW Plt Count Seg Neutrophils % Lymphocytes % Monocytes % Eosinophils % Basophils % Absolute Neutrophils Absolute Lymphocytes Absolute Monocytes Absolute Eosinophils Absolute Basophils Carbonic Acid Cancelled HCO3/H2CO3 Ratio Cancelled ABG pH Cancelled ABG pCO2 Cancelled ABG pO2 Cancelled ABG HCO3 Cancelled ABG O2 Saturation Cancelled ABG Base Excess Cancelled FiO2 Cancelled Sodium 138.2 Potassium 4.0 D Chloride 111 H Carbon Dioxide 24 Anion Gap 3 L BUN 6 L Creatinine 0.41 L Est GFR ( Amer) > 60 Est GFR (Non-Af Amer) > 60 Glucose 136 H Calcium 6.8 L* Magnesium 1.5 L Total Bilirubin AST ALT Alkaline Phosphatase Total Protein Albumin Triglycerides Cholesterol LDL Cholesterol Direct VLDL Cholesterol HDL Cholesterol 11/07/18 11/07/18 11/07/18 08:10 09:57 17:05 Creatine Kinase 89 CK-MB (CK-2) Troponin I Cancelled < 0.012 NT-Pro-B Natriuret Pep Cancelled 172 H 11/07/18 11/07/18 11/07/18 17:05 23:02 23:02 Creatine Kinase 104 CK-MB (CK-2) 0.89 0.92 Troponin I < 0.012 < 0.012 NT-Pro-B Natriuret Pep 11/08/18 11/08/18 05:00 05:00 Creatine Kinase 73 CK-MB (CK-2) 0.68 Troponin I < 0.012 NT-Pro-B Natriuret Pep Impressions: Abdomen/Pelvis CT 11/07/18 10:58 IMPRESSION: 1. There is severe thickening of the terminal ileum, cecum, and proximal transverse colon, consistent with nonspecific infectious or inflammatory colitis. This pattern of inflammation may be seen in inflammatory bowel disease such as Crohn's disease. Correlate for appropriate history of clinical signs and symptoms if present. 2. Hepatomegaly and severe hepatic steatosis. 3. Status post Shanthi-en-Y gastric bypass. 4. Multifocal bilateral geographic ground-glass pulmonary opacity in the included bilateral lung bases, an unusual pattern that can be seen in atypical infection as well as inflammatory pneumonitis such as organizing pneumonia. Chest X-Ray 11/08/18 00:00 IMPRESSION: Good position of central line. No pneumothorax. Assessment & Plan - Diagnosis (1) Sacral decubitus ulcer, stage II Is this a current diagnosis for this admission?: Yes - Time Time Spent: 30 to 50 Minutes - Plan Summary Plan Summary: Has a stage 2 sacral decubitus ulcer with no abscess formation. Recommended to the nurse just to place dry dressing using Allevyn and turn tosides frequently to prevent pressure at sacral area. At this time, i don't see a need for debridement.
[2018-11-09] MEDS: AZTREONAM 1 GM in DEXTROSE 5%-WATER 50 ML IV SCH ×2 (03:01→09:30)
[2018-11-09] MEDS: METRONIDAZOLE 500 MG/NS RTU 500 MG/100 ML RTUPB IV SCH ×4 (03:01→17:45)
[2018-11-09] MEDS ORDERED: ONDANSETRON HCL INJ/PF 4 MG/2 ML SDV ONE ×2 (06:28→17:40)
[2018-11-09] MEDS: ACETAMINOPHEN 325 MG TABLET PO PRN ×2 (06:30→22:03)
[2018-11-09] MEDS: OXYCODONE HCL IR 5 MG TABLET PO PRN ×3 (06:31→22:04)
[2018-11-09] MEDS: LANSOPRAZOLE 30 MG TAB.RAP.DR PO SCH (06:31)
[2018-11-09] MEDS: LEVOTHYROXINE SODIUM 0.088 MG TABLET PO SCH (06:31)
[2018-11-09] MEDS: POTASSI CL 40 MEQ/D5-1/2NS 1L 1000 ML IV PRN ×2 (06:32→17:51)
[2018-11-09] MEDS: HEPARIN SOD (PORCINE) 5,000 UNIT/ML 1 ML SYRINGE SUBCUT SCH ×3 (06:33→21:55)
[2018-11-09 07:16] LABS: ABSOLUTE LYMPHOCYTES (AUTO) 1.5 10^3/uL (0.5-4.7); ABSOLUTE MONOCYTES (AUTO) 0.4 10^3/uL (0.1-1.4); ABSOLUTE NEUT (AUTO) 16.1 10^3/uL (1.7-8.2); BASOPHILS % (AUTO) 0.2 % (0-2); EOSINOPHILS % (AUTO) 0.1 % (0-6); HEMATOCRIT 26.6 % (36.0-47.0); HEMOGLOBIN 8.5 g/dL (12.0-15.5); LYMPHOCYTES % (AUTO) 8.3 % (13-45); MEAN CORPUSCULAR HEMOGLOBIN 32.3 pg (27.0-33.4); MEAN CORPUSCULAR HGB CONC 31.9 g/dL (32.0-36.0); MEAN CORPUSCULAR VOLUME 101 fl (80-97); MONOCYTES % (AUTO) 2.3 % (3-13); PLATELET COUNT 199 10^3/uL (150-450); RED BLOOD COUNT 2.63 10^6/uL (3.72-5.28); RED CELL DISTRIBUTION WIDTH 16.9 % (11.5-14.0); SEGMENTED NEUTROPHILS % (AUTO) 89.1 % (42-78); TOTAL CELLS COUNTED % (AUTO) 100 %
[2018-11-09 07:26] LABS: VENOUS BLOOD BASE EXCESS -3.4 mmol/L; VENOUS BLOOD PH 7.4 (7.30-7.42)
[2018-11-09 07:55] LABS: ALANINE AMINOTRANSFERASE 34 U/L (9-52); ALBUMIN 1.2 g/dL (3.5-5.0); ALKALINE PHOSPHATASE 178 U/L (38-126); ASPARTATE AMINO TRANSFERASE 31 U/L (14-36); BILIRUBIN,DIRECT 0.3 mg/dL (0.0-0.4); BILIRUBIN,TOTAL 0.4 mg/dL (0.2-1.3); BLOOD UREA NITROGEN 5 mg/dL (7-20); CHLORIDE 110 mmol/L (98-107); GLUCOSE 103 mg/dL (75-110); POTASSIUM 4.5 mmol/L (3.6-5.0); TOTAL PROTEIN 3.2 g/dL (6.3-8.2)
[2018-11-09 08:00] LABS: CARBON DIOXIDE 22 mmol/L (22-30); SODIUM 133.9 mmol/L (137-145)
[2018-11-09 08:11] LABS: ANION GAP 2 (5-19)
[2018-11-09 08:12] LABS: CALCIUM 6.6 mg/dL (8.4-10.2)
[2018-11-09] MEDS: TOPIRAMATE 25 MG TABLET PO SCH ×2 (09:29→21:55)
[2018-11-09] MEDS: SERTRALINE HCL 50 MG TABLET PO SCH (09:30)
[2018-11-09] MEDS: VANCOMYCIN HCL 1,000 MG in DEXTROSE 5%-WATER 250 ML IV SCH ×3 (09:30→22:02)
[2018-11-09] MEDS: DEXTROSE 5%-WATER 250 ML with PHENYLEPHRINE HCL 40 MG IV PRN ×2 (09:31)
--- NOTE | 2018-11-09 10:59 | RADIOLOGY REPORT (SQ) ---
EXAM DESCRIPTION: CTA CHEST COMPLETED DATE/TIME: 11/09/2018 10:30 am REASON FOR STUDY: increased HR/RR and drop in O2 with exertion-new COMPARISON: Recent radiographs. CT chest from February. TECHNIQUE: CT scan of the chest performed using helical scanning technique with dynamic intravenous contrast injection. Images reviewed with lung, soft tissue and bone windows. Reconstructed coronal and sagittal MPR images reviewed. Additional 3 dimensional post-processing performed to develop Maximal Intensity Projection images ([place] P). All images stored on PACS. All CT scanners at this facility use dose modulation, iterative reconstruction, and/or weight based d osing when appropriate to reduce radiation dose to as low as reasonably achievable (ALARA). [facility]: Dose Right [facility]: CareDose [facility]: Dose Right [facility]: Teradose 4D [facility]: Paperlinks CONTRAST TYPE AND DOSE: contrast/concentration: Isovue 350.00 mg/ml; Total Contrast Delivered: 69.0 ml; Total Saline Delivered: 95.0 ml Contrast bolus optimized for the pulmonary arteries. Not diagnostic for the aorta. RENAL FUNCTION: GFR > 60. RADIATION DOSE: CT Rad equipment meets quality standard of care and radiation dose reduction techniq ues were employed. CTDIvol: 16.0 - 24.8 mGy. DLP: 498 mGy-cm. . LIMITATIONS: None. FINDINGS: LUNGS AND PLEURA: Diffuse ground-glass densities. Much of this looks chronic with slight shifting. Small persistent or recurrent pleural effusions. Consolidation is noted in the left upper lobe and apex of the left lower lobe. Suspicious for pneumonia. AORTA AND GREAT VESSELS: No aneurysm. Contrast bolus not optimized for the aorta. HEART: No pericardial effusion. No significant coronary artery calcifications. PULMONARY ARTERIES: No emboli visualized in the main pulmonary arteries or the segmental branches. HILAR AND MEDIASTINAL STRUCTURES: Mild mediastinal and hilar adenopathy, chronic. HARDWARE: Right subclavian line. UPPER ABDOMEN: Fatty liver. THYROID AND OTHER SOFT TISSUES: No masses. No adenopathy. BONES: No acute or significant finding. 3D MIPS: Confirm above findings. OTHER: No other significant finding. IMPRESSION: 1. Ground-glass opacities and bilateral effusions. Similar appearance to February study, suspect recurrent pulmonary edema. Superimposed consolidation most notable in the left upper lobe. This may reflect pneumonia. 2. No pulmonary embolus. COMMENT: Quality ID # [id number]: Final reports with documentation of one or more dose reduction techniques (e.g., Automated exposure control, adjustment of the mA and/or kV according to patient size, use of iterative reconstruction technique) TECHNICAL DOCUMENTATION: JOB ID: [id number] [employer]- All Rights Reserved Reading location - IP/workstation name: [email or web address]
--- NOTE | 2018-11-09 12:11 | PDOC PROGRESS REPORT ---
Subjective Progress Note for:: 11/09/18 Subjective:: Patient is feeling much better Patient is denied any chest pain denied any shortness of the breath Patient urine cultures gram-negative Proteus which is sensitive to the Cipro and Levaquin Patient's chest x-rays suggest no consolidations Patient has CT angiogram was done because of the desat yesterday which is negative for the pulmonary embolism consistent with a pneumonia This patient's wound cultures also positive for the E. coli gram-negative and gram-positive no sign of any MRSA Discussed with the son on the bedside regarding the patient's current conditions patient still required pressor support Reason For Visit: SEPSIS, BILATERAL PNEUMONIA, HYPOTENSION, Physical Exam Vital Signs: Temp Pulse Resp BP Pulse Ox 99.0 F 94 22 H 108/71 92 11/09/18 11:23 11/08/18 22:00 11/09/18 07:00 11/09/18 06:53 11/09/18 08:16 Intake & Output 11/08/18 11/09/18 11/10/18 06:59 06:59 06:59 Intake Total 4665 4931 22 Output Total 1375 1165 200 Balance 3290 3766 -178 Weight 61.2 kg 69.8 kg General appearance: PRESENT: no acute distress, well-developed, well-nourished Head exam: PRESENT: atraumatic, normocephalic Eye exam: PRESENT: conjunctiva pink, EOMI, PERRLA. ABSENT: scleral icterus Ear exam: PRESENT: normal external ear exam Mouth exam: PRESENT: moist, tongue midline Neck exam: PRESENT: full ROM. ABSENT: carotid bruit, JVD, lymphadenopathy, thyromegaly Cardiovascular exam: PRESENT: RRR. ABSENT: diastolic murmur, rubs, systolic murmur Vascular exam: PRESENT: normal capillary refill GI/Abdominal exam: PRESENT: normal bowel sounds, soft. ABSENT: distended, guarding, mass, organolmegaly, rebound, tenderness Rectal exam: PRESENT: deferred Extremities exam: ABSENT: pedal edema Neurological exam: PRESENT: alert, awake, oriented to person, oriented to place, oriented to time, oriented to situation, CN II-XII grossly intact. ABSENT: motor sensory deficit Psychiatric exam: PRESENT: appropriate affect, normal mood. ABSENT: homicidal ideation, suicidal ideation Skin exam: PRESENT: dry, intact, warm. ABSENT: cyanosis, rash Results Laboratory Results: 11/09/18 06:40 11/09/18 06:40 11/08/18 11/08/18 11/08/18 16:30 16:30 17:00 WBC 24.0 H RBC 3.00 L Hgb 9.8 L Hct 30.3 L MCV 101 H MCH 32.8 MCHC 32.4 RDW 17.0 H Plt Count 313 Seg Neutrophils % Not Reportable Lymphocytes % Not Reportable Monocytes % Not Reportable Eosinophils % Not Reportable Basophils % Not Reportable Absolute Neutrophils Not Reportable Absolute Lymphocytes Not Reportable Absolute Monocytes Not Reportable Absolute Eosinophils Not Reportable Absolute Basophils Not Reportable Carbonic Acid Cancelled HCO3/H2CO3 Ratio Cancelled ABG pH Cancelled ABG pCO2 Cancelled ABG pO2 Cancelled ABG HCO3 Cancelled ABG O2 Saturation Cancelled ABG Base Excess Cancelled VBG pH VBG pCO2 VBG HCO3 VBG Base Excess FiO2 Cancelled Sodium 138.2 Potassium 4.0 D Chloride 111 H Carbon Dioxide 24 Anion Gap 3 L BUN 6 L Creatinine 0.41 L Est GFR ( Amer) > 60 Est GFR (Non-Af Amer) > 60 Glucose 136 H Calcium 6.8 L* Ionized Calcium Ney Magnesium 1.5 L Total Bilirubin AST ALT Alkaline Phosphatase Total Protein Albumin Stool Occult Blood 11/09/18 11/09/18 11/09/18 06:20 06:40 06:40 WBC 18.0 H RBC 2.63 L Hgb 8.5 L Hct 26.6 L MCV 101 H MCH 32.3 MCHC 31.9 L RDW 16.9 H Plt Count 199 Seg Neutrophils % 89.1 H Lymphocytes % 8.3 L Monocytes % 2.3 L Eosinophils % 0.1 Basophils % 0.2 Absolute Neutrophils 16.1 H Absolute Lymphocytes 1.5 Absolute Monocytes 0.4 Absolute Eosinophils 0.0 Absolute Basophils 0.0 Carbonic Acid HCO3/H2CO3 Ratio ABG pH ABG pCO2 ABG pO2 ABG HCO3 ABG O2 Saturation ABG Base Excess VBG pH VBG pCO2 VBG HCO3 VBG Base Excess FiO2 Sodium 133.9 L Potassium 4.5 Chloride 110 H Carbon Dioxide 22 Anion Gap 2 L BUN 5 L Creatinine 0.37 L Est GFR ( Amer) > 60 Est GFR (Non-Af Amer) > 60 Glucose 103 Calcium 6.6 L* Ionized Calcium Ney Magnesium 1.5 L Total Bilirubin 0.4 AST 31 ALT 34 Alkaline Phosphatase 178 H Total Protein 3.2 L Albumin 1.2 L Stool Occult Blood NEGATIVE 11/09/18 11/09/18 07:00 07:00 WBC RBC Hgb Hct MCV MCH MCHC RDW Plt Count Seg Neutrophils % Lymphocytes % Monocytes % Eosinophils % Basophils % Absolute Neutrophils Absolute Lymphocytes Absolute Monocytes Absolute Eosinophils Absolute Basophils Carbonic Acid HCO3/H2CO3 Ratio ABG pH ABG pCO2 ABG pO2 ABG HCO3 ABG O2 Saturation ABG Base Excess VBG pH 7.40 VBG pCO2 35.0 VBG HCO3 21.0 VBG Base Excess -3.4 FiO2 Sodium Potassium Chloride Carbon Dioxide Anion Gap BUN Creatinine Est GFR ( Amer) Est GFR (Non-Af Amer) Glucose Calcium Ionized Calcium Ney 1.07 L Magnesium Total Bilirubin AST ALT Alkaline Phosphatase Total Protein Albumin Stool Occult Blood 11/07/18 11/07/18 11/07/18 08:10 09:57 17:05 Creatine Kinase 89 CK-MB (CK-2) Troponin I Cancelled < 0.012 NT-Pro-B Natriuret Pep Cancelled 172 H 11/07/18 11/07/18 11/07/18 17:05 23:02 23:02 Creatine Kinase 104 CK-MB (CK-2) 0.89 0.92 Troponin I < 0.012 < 0.012 NT-Pro-B Natriuret Pep 11/08/18 11/08/18 05:00 05:00 Creatine Kinase 73 CK-MB (CK-2) 0.68 Troponin I < 0.012 NT-Pro-B Natriuret Pep Impressions: Abdomen/Pelvis CT 11/07/18 10:58 IMPRESSION: 1. There is severe thickening of the terminal ileum, cecum, and proximal transverse colon, consistent with nonspecific infectious or inflammatory colitis. This pattern of inflammation may be seen in inflammatory bowel disease such as Crohn's disease. Correlate for appropriate history of clinical signs and symptoms if present. 2. Hepatomegaly and severe hepatic steatosis. 3. Status post Shanthi-en-Y gastric bypass. 4. Multifocal bilateral geographic ground-glass pulmonary opacity in the included bilateral lung bases, an unusual pattern that can be seen in atypical infection as well as inflammatory pneumonitis such as organizing pneumonia. Chest X-Ray 11/08/18 00:00 IMPRESSION: Good position of central line. No pneumothorax. Chest/Abdomen CTA 11/09/18 09:21 IMPRESSION: 1. Ground-glass opacities and bilateral effusions. Similar appearance to Marjorie study, suspect recurrent pulmonary edema. Superimposed consolidation most notable in the left upper lobe. This may reflect pneumonia. 2. No pulmonary embolus. Assessment & Plan - Diagnosis (1) Gram negative septic shock Is this a current diagnosis for this admission?: Yes Plan: Will add the Levaquin which cover the gram-positive gram-negative organisms with the pneumonia and UTI Will DC the vancomycin Cover the Flagyl (2) Colitis Is this a current diagnosis for this admission?: Yes Plan: Continues to IV Flagyl and IV Levaquin start (3) Anemia Qualifiers: Anemia type: unspecified type Qualified Code(s): D64.9 - Anemia, unspecified Is this a current diagnosis for this admission?: Yes Plan: History of his gastric bypass (4) Hypotension (arterial) Qualifiers: Hypotension type: unspecified hypotension type Qualified Code(s): I95.9 - Hypotension, unspecified Is this a current diagnosis for this admission?: Yes Plan: To the septic shock currently on a pressure support on IV fluid (5) Sacral decubitus ulcer, stage II Is this a current diagnosis for this admission?: Yes Plan: Discussed with the surgery no need for debridement at this point (6) Multifocal pneumonia Is this a current diagnosis for this admission?: Yes Plan: Continues IV antibiotic (7) Status post gastric bypass for obesity Is this a current diagnosis for this admission?: Yes - Time Time Spent with patient: 25-34 minutes Total Critical Time (Minutes): 30 Anticipated discharge: Home Within: Other - Plan Summary Plan Summary: Very extensive discussions with the son on the bedside regarding the patient's current conditions Adjust the antibiotic per culture Continues to IV fluid Correct the electrolytes
[2018-11-09] MEDS ORDERED: VANCOMYCIN HCL 0 MG in DEXTROSE 5%-WATER 250 ML IV NR (12:15)
[2018-11-09] MEDS: MAGNESIUM SULFATE 1 GM/D5W 100 ML IV SCH ×2 (12:58→14:21)
[2018-11-09] MEDS: CALCIUM GLUCONATE 1000 MG/10 ML INJ IV SCH ×2 (12:59→14:21)
[2018-11-09] MEDS ORDERED: VANCOMYCIN HCL 1,000 MG in DEXTROSE 5%-WATER 250 ML IV ONE (13:30)
[2018-11-09 14:00] LABS: VANCOMYCIN,TROUGH 7.4 ug/mL (5.0-20.0)
[2018-11-09] MEDS: ACETYLCYSTEINE 20% SOLN 800 MG/4 ML VIAL.NEB NEB SCH ×2 (14:18→21:17)
[2018-11-09] MEDS: IPRATROPIUM/ALBUTEROL 0.5-2.5 MG/3 ML AMPUL NEB SCH ×2 (14:18→21:17)
[2018-11-09] MEDS ORDERED: MAGNESIUM SULFATE/D5W 1 GM/100 ML RTUPB IV ONE (14:19)
[2018-11-09] MEDS ORDERED: CALCIUM GLUCONATE 1000 MG/10 ML INJ IV ONE (14:20)
[2018-11-09] MEDS: LEVOFLOXACIN 500 MG/D5W RTU 500 MG/100 ML RTUPB IV SCH (14:21)
[2018-11-09] MEDS: ONDANSETRON HCL INJ/PF 4 MG/2 ML SDV IV PRN ×2 (17:45→21:59)
[2018-11-09] MEDS ORDERED: NOREPINEPHRINE BITARTRATE INJ/PF 4 MG/4 ML SDV IV ONE (22:10)
[2018-11-09] MEDS ORDERED: DEXTROSE 5%-WATER 250 ML with NOREPINEPHRINE BITARTRATE 4 MG IV PRN ×2 (22:10)
[2018-11-10] MEDS: IPRATROPIUM/ALBUTEROL 0.5-2.5 MG/3 ML AMPUL NEB SCH ×4 (02:07→20:17)
[2018-11-10] MEDS ORDERED: FUROSEMIDE INJ/PF 20 MG/2 ML SDV ONE ×2 (03:02→13:57)
[2018-11-10] MEDS ORDERED: FUROSEMIDE INJ/PF 20 MG/2 ML SDV IV ONE (03:15)
[2018-11-10 04:46] LABS: ARTERIAL BLOOD BASE EXCESS -5.4 mmol/L; ARTERIAL BLOOD FIO2 40%; ARTERIAL BLOOD H2CO3 0.99 mmol/L (1.05-1.35); ARTERIAL BLOOD O2 SATURATION 98.1 % (94-98); ARTERIAL BLOOD PCO2 32.9 mmHg (35-45); ARTERIAL BLOOD PH 7.38 (7.35-7.45); ARTERIAL BLOOD PO2 114.1 mmHg (80-100)
[2018-11-10 04:47] LABS: ABSOLUTE MONOCYTES (AUTO) 0.6 10^3/uL (0.1-1.4); ABSOLUTE NEUT (AUTO) 17.7 10^3/uL (1.7-8.2); BASOPHILS % (AUTO) 0.2 % (0-2); HEMATOCRIT 28.4 % (36.0-47.0); HEMOGLOBIN 9.1 g/dL (12.0-15.5); LYMPHOCYTES % (AUTO) 5.4 % (13-45); MEAN CORPUSCULAR HEMOGLOBIN 32.7 pg (27.0-33.4); MEAN CORPUSCULAR HGB CONC 31.9 g/dL (32.0-36.0); MEAN CORPUSCULAR VOLUME 102 fl (80-97); MONOCYTES % (AUTO) 2.9 % (3-13); PLATELET COUNT 223 10^3/uL (150-450); RED BLOOD COUNT 2.78 10^6/uL (3.72-5.28); RED CELL DISTRIBUTION WIDTH 16.5 % (11.5-14.0); SEGMENTED NEUTROPHILS % (AUTO) 91.5 % (42-78); TOTAL CELLS COUNTED % (AUTO) 100 %; WHITE BLOOD COUNT 19.4 10^3/uL (4.0-10.5)
[2018-11-10 05:21] LABS: ALANINE AMINOTRANSFERASE 36 U/L (9-52); ALBUMIN 1.3 g/dL (3.5-5.0); ALKALINE PHOSPHATASE 227 U/L (38-126); ASPARTATE AMINO TRANSFERASE 33 U/L (14-36); BILIRUBIN,DIRECT 0.3 mg/dL (0.0-0.4); BILIRUBIN,TOTAL 0.3 mg/dL (0.2-1.3); BLOOD UREA NITROGEN 4 mg/dL (7-20); GLUCOSE 118 mg/dL (75-110); POTASSIUM 4.2 mmol/L (3.6-5.0); TOTAL PROTEIN 3.4 g/dL (6.3-8.2)
[2018-11-10 05:26] LABS: CARBON DIOXIDE 21 mmol/L (22-30); CHLORIDE 108 mmol/L (98-107); SODIUM 131.1 mmol/L (137-145)
--- NOTE | 2018-11-10 05:43 | RADIOLOGY REPORT (SQ) ---
EXAM DESCRIPTION: XR CHEST 1 VIEW COMPLETED DATE/TME: 11/10/2018 00:00 CLINICAL HISTORY: 48 years, Female, tachyapneia, resp failure COMPARISON: 11/08/2018 chest NUMBER OF VIEWS: 1 TECHNIQUE: Frontal view chest LIMITATIONS: None. FINDINGS: The heart size is normal. Patchy airspace opacity in the left upper lobe suggesting pneumonia. Osteopenia. Central venous catheter in place. IMPRESSION: Left upper lobe pneumonia. Follow-up recommended. copyright 2010 [employer]- All Rights Reserved
[2018-11-10 05:45] LABS: ANION GAP 3 (5-19)
[2018-11-10] MEDS: METRONIDAZOLE 500 MG/NS RTU 500 MG/100 ML RTUPB IV SCH ×5 (05:55→23:15)
[2018-11-10] MEDS: HEPARIN SOD (PORCINE) 5,000 UNIT/ML 1 ML SYRINGE SUBCUT SCH ×3 (05:56→21:34)
[2018-11-10] MEDS: POTASSI CL 40 MEQ/D5-1/2NS 1L 1000 ML IV PRN (05:56)
[2018-11-10] MEDS: LANSOPRAZOLE 30 MG TAB.RAP.DR PO SCH (05:56)
[2018-11-10] MEDS: LEVOTHYROXINE SODIUM 0.088 MG TABLET PO SCH (05:56)
[2018-11-10] MEDS: LACTOBACILLUS ACIDOPHILUS 250 MG TAB PO SCH ×2 (05:56→17:59)
[2018-11-10] MEDS: VANCOMYCIN HCL 1,000 MG in DEXTROSE 5%-WATER 250 ML IV SCH ×3 (05:57→21:46)
[2018-11-10 06:46] LABS: VENOUS BLOOD BASE EXCESS -5.4 mmol/L; VENOUS BLOOD HCO3 19.5 mmol/L (20-32); VENOUS BLOOD PCO2 35.3 mmHg (35-63); VENOUS BLOOD PH 7.36 (7.30-7.42)
[2018-11-10] MEDS: ACETYLCYSTEINE 20% SOLN 800 MG/4 ML VIAL.NEB NEB SCH ×2 (08:08→20:17)
[2018-11-10] MEDS: TOPIRAMATE 25 MG TABLET PO SCH ×2 (09:02→17:59)
[2018-11-10] MEDS: OXYCODONE HCL IR 5 MG TABLET PO PRN (09:02)
[2018-11-10] MEDS: SERTRALINE HCL 50 MG TABLET PO SCH (09:02)
[2018-11-10] MEDS: DEXTROSE 5%-WATER 250 ML with VASOPRESSIN 100 UNIT IV PRN ×2 (09:03)
[2018-11-10] MEDS: ONDANSETRON HCL INJ/PF 4 MG/2 ML SDV IV PRN (09:03)
[2018-11-10] MEDS ORDERED: PROPOFOL 0 MG/0 ML INFUS..BTL IV ONE (10:17)
[2018-11-10] MEDS ORDERED: FUROSEMIDE INJ/PF 20 MG/2 ML SDV IV SCH (11:00)
--- NOTE | 2018-11-10 11:51 | PDOC PROGRESS REPORT ---
Subjective Progress Note for:: 11/10/18 Subjective:: Patient is currently doing same Patient still peripheral edema give Lasix 20 mg IV last night make 400 cc of the urine Patient usually takes 40 mg Lasix every day not sure because of swelling Albumin is very low Patient still requiring pressor support Patient is still alert awake oriented fully Patient is complaining some nausea But no abdominal pain no chest pain no short of breath Still have a low-grade fever Patient is currently on Levaquin and vancomycin and Flagyl Patient's white count is still elevated Reason For Visit: SEPSIS, BILATERAL PNEUMONIA, HYPOTENSION, Physical Exam Vital Signs: Temp Pulse Resp BP Pulse Ox 99.1 F 102 H 22 H 109/74 94 11/10/18 10:00 11/10/18 10:00 11/10/18 10:00 11/10/18 10:00 11/10/18 10:00 Intake & Output 11/09/18 11/10/18 11/11/18 06:59 06:59 06:59 Intake Total 4931 4445 395 Output Total 1165 1535 140 Balance 3766 2910 255 Weight 69.8 kg 67.6 kg General appearance: PRESENT: no acute distress, well-developed, well-nourished Head exam: PRESENT: atraumatic, normocephalic Eye exam: PRESENT: conjunctiva pink, EOMI, PERRLA. ABSENT: scleral icterus Ear exam: PRESENT: normal external ear exam Mouth exam: PRESENT: moist, tongue midline Neck exam: PRESENT: full ROM. ABSENT: carotid bruit, JVD, lymphadenopathy, thyromegaly Respiratory exam: PRESENT: clear to auscultation rona Cardiovascular exam: PRESENT: RRR. ABSENT: diastolic murmur, rubs, systolic murmur Vascular exam: PRESENT: normal capillary refill GI/Abdominal exam: PRESENT: normal bowel sounds, soft. ABSENT: distended, guarding, mass, organolmegaly, rebound, tenderness Rectal exam: PRESENT: deferred Extremities exam: PRESENT: pedal edema Neurological exam: PRESENT: alert, awake, oriented to person, oriented to place, oriented to time, oriented to situation, CN II-XII grossly intact. ABSENT: motor sensory deficit Psychiatric exam: PRESENT: appropriate affect, normal mood. ABSENT: homicidal ideation, suicidal ideation Skin exam: PRESENT: dry, intact, warm. ABSENT: cyanosis, rash Results Laboratory Results: 11/10/18 04:30 11/10/18 04:30 11/10/18 11/10/18 11/10/18 04:30 04:30 04:30 WBC 19.4 H RBC 2.78 L Hgb 9.1 L Hct 28.4 L MCV 102 H MCH 32.7 MCHC 31.9 L RDW 16.5 H Plt Count 223 Seg Neutrophils % 91.5 H Lymphocytes % 5.4 L Monocytes % 2.9 L Eosinophils % 0.0 Basophils % 0.2 Absolute Neutrophils 17.7 H Absolute Lymphocytes 1.0 Absolute Monocytes 0.6 Absolute Eosinophils 0.0 Absolute Basophils 0.0 Carbonic Acid 0.99 L HCO3/H2CO3 Ratio 19:1 ABG pH 7.38 ABG pCO2 32.9 L ABG pO2 114.1 H ABG HCO3 19.0 L ABG O2 Saturation 98.1 H ABG Base Excess -5.4 VBG pH VBG pCO2 VBG HCO3 VBG Base Excess FiO2 40% Sodium 131.1 L Potassium 4.2 Chloride 108 H Carbon Dioxide 21 L Anion Gap 3 L BUN 4 L Creatinine 0.36 L Est GFR ( Amer) > 60 Est GFR (Non-Af Amer) > 60 Glucose 118 H Calcium 7.0 L* Ionized Calcium Ney Magnesium 1.8 Total Bilirubin 0.3 AST 33 ALT 36 Alkaline Phosphatase 227 H Total Protein 3.4 L Albumin 1.3 L 11/10/18 11/10/18 06:30 06:30 WBC RBC Hgb Hct MCV MCH MCHC RDW Plt Count Seg Neutrophils % Lymphocytes % Monocytes % Eosinophils % Basophils % Absolute Neutrophils Absolute Lymphocytes Absolute Monocytes Absolute Eosinophils Absolute Basophils Carbonic Acid HCO3/H2CO3 Ratio ABG pH ABG pCO2 ABG pO2 ABG HCO3 ABG O2 Saturation ABG Base Excess VBG pH 7.36 VBG pCO2 35.3 VBG HCO3 19.5 L VBG Base Excess -5.4 FiO2 Sodium Potassium Chloride Carbon Dioxide Anion Gap BUN Creatinine Est GFR ( Amer) Est GFR (Non-Af Amer) Glucose Calcium Ionized Calcium Ney 1.06 L Magnesium Total Bilirubin AST ALT Alkaline Phosphatase Total Protein Albumin 11/07/18 11/07/18 11/07/18 08:10 09:57 17:05 Creatine Kinase 89 CK-MB (CK-2) Troponin I Cancelled < 0.012 NT-Pro-B Natriuret Pep Cancelled 172 H 11/07/18 11/07/18 11/07/18 17:05 23:02 23:02 Creatine Kinase 104 CK-MB (CK-2) 0.89 0.92 Troponin I < 0.012 < 0.012 NT-Pro-B Natriuret Pep 11/08/18 11/08/18 05:00 05:00 Creatine Kinase 73 CK-MB (CK-2) 0.68 Troponin I < 0.012 NT-Pro-B Natriuret Pep Impressions: Abdomen/Pelvis CT 11/07/18 10:58 IMPRESSION: 1. There is severe thickening of the terminal ileum, cecum, and proximal transverse colon, consistent with nonspecific infectious or inflammatory colitis. This pattern of inflammation may be seen in inflammatory bowel disease such as Crohn's disease. Correlate for appropriate history of clinical signs and symptoms if present. 2. Hepatomegaly and severe hepatic steatosis. 3. Status post Shanthi-en-Y gastric bypass. 4. Multifocal bilateral geographic ground-glass pulmonary opacity in the included bilateral lung bases, an unusual pattern that can be seen in atypical infection as well as inflammatory pneumonitis such as organizing pneumonia. Chest/Abdomen CTA 11/09/18 09:21 IMPRESSION: 1. Ground-glass opacities and bilateral effusions. Similar appearance to February study, suspect recurrent pulmonary edema. Superimposed consolidation most notable in the left upper lobe. This may reflect pneumonia. 2. No pulmonary embolus. Chest X-Ray 11/10/18 00:00 IMPRESSION: Left upper lobe pneumonia. Follow-up recommended. copyright 2010 [employer]- All Rights Reserved Assessment & Plan - Diagnosis (1) Gram negative septic shock Is this a current diagnosis for this admission?: Yes Plan: Most likely from the urine and the pneumonia and a chronic wound infections Patient is already on Levaquin for the gram-negative organism still white count is elevated we added the gentamicin is 1 dose until the ID consult Continues to vancomycin some gram-positive organism coverage for the pneumonia (2) Colitis Is this a current diagnosis for this admission?: Yes Plan: We asked the surgery to further evaluate Continues to IV Levaquin and Flagyl (3) Anemia Qualifiers: Anemia type: unspecified type Qualified Code(s): D64.9 - Anemia, uns pecified Is this a current diagnosis for this admission?: Yes Plan: History of his gastric bypass (4) Hypotension (arterial) Qualifiers: Hypotension type: unspecified hypotension type Qualified Code(s): I95.9 - Hypotension, unspecified Is this a current diagnosis for this admission?: Yes Plan: To the septic shock currently on a pressure support on IV fluid (5) Sacral decubitus ulcer, stage II Is this a current diagnosis for this admission?: Yes Plan: Discussed with the surgery no need for debridement at this point (6) Multifocal pneumonia Is this a current diagnosis for this admission?: Yes Plan: Continues IV antibiotic (7) Status post gastric bypass for obesity Is this a current diagnosis for this admission?: Yes (8) Hypoalbuminemia Is this a current diagnosis for this admission?: Yes Plan: Placed the albumin today We will consult the cardiology for the tachycardia and hypotension 2D echocardiogram - Time Time Spent with patient: 25-34 minutes Total Critical Time (Minutes): 30 Medications reviewed and adjusted accordingly: Yes Within: Other - Plan Summary Plan Summary: Start the patient on IV Lasix Replace albumin Consult the cardiology Wait for the ID consult Follow-up with the pulmonary Continues to IV antibiotic
[2018-11-10] MEDS: ALBUMIN HUMAN 12.5 GM/50 ML RTUINJ IV SCH ×2 (13:44→14:02)
[2018-11-10] MEDS: PANTOPRAZOLE SODIUM 40 MG VIAL IV SCH ×2 (14:00→21:34)
[2018-11-10] MEDS: LEVOFLOXACIN 500 MG/D5W RTU 500 MG/100 ML RTUPB IV SCH (14:01)
[2018-11-10] MEDS ORDERED: SUCCINYLCHOLINE CHLORIDE INJ 200 MG/10 ML VIAL ONE (14:21)
[2018-11-10 14:33] LABS: VANCOMYCIN,TROUGH 13.8 ug/mL (5.0-20.0)
--- NOTE | 2018-11-10 14:44 | XCELERA REPORT ---
[address] [address] Transthoracic Echocardiogram Report Name: HILTON MI Age: 48 yrs Gender: Female : 1970 Patient Status: Inpatient Patient Location: ICU^[id number]^A Study Date: 11/10/2018 12:24 PM Procedure: A two-dimensional transthoracic echocardiogram with color flow and Doppler was performed. The study was technically difficult with many images being suboptimal in quality. Reason For Study: sepsis / hypotension History: sepsis / hypotension. Ordering Physician: MARIA ESTHER BRUCE Performed By: Germania Marley Interpretation Summary The left ventricle is normal in size. There is normal left ventricular wall thickness. LV EF is 65% Left ventricular systolic function is normal. Doppler measurements suggest normal left ventricular diastolic function The left ventricular wall motion is normal. There is no thrombus. The right ventricle is not well visualized secondary to technical limitations Right atrium not well visualized secondary to technical limitations The left atrial size is normal. There is no evidence of mitral valve prolapse. There is no vegetation seen on the mitral valve. There is no mitral valve stenosis. There is a trace amount of mitral regurgitation There is no aortic valvular vegetation. There is no aortic valve stenosis There is no LVOT obstruction. No aortic regurgitation is present. Tricuspid valve not well interogated.Probably no TR.Unable to calculate RVSP due tack of TR jet. There is no pulmonic valvular stenosis. There is a trace amount of pulmonic regurgitation The aortic root is normal size. There is no pericardial effusion. MMode/2D Measurements & Calculations RVDd: 2.6 cm LVIDd: 4.4 cm FS: 20.5 % Ao root diam: 2.4 cm IVSd: 0.66 cm LVIDs: 3.5 cm EDV(Teich): 88.3 ml Ao root area: 4.7 cm2 LVPWd: 0.87 cm ESV(Teich): 51.2 ml EF(Teich): 42.0 % Doppler Measurements & Calculations MV E max valdemar: MV dec slope: Ao V2 max: LV V1 max P.1 cm/sec 134.5 cm/sec 4.2 mmHg MV A max valdemar: 675.7 cm/sec2 Ao max PG: LV V1 max: 69.0 cm/sec MV dec time: 0.16 sec7.2 mmHg 102.6 cm/sec MV E/A: 1.6 PA V2 max: PI end-d valdemar: 117.1 cm/sec 108.2 cm/sec PA max P.5 mmHg Left Ventricle The left ventricle is normal in size. There is normal left ventricular wall thickness. LV EF is 65%. Left ventricular systolic function is normal. Doppler measurements suggest normal left ventricular diastolic function. The left ventricular wall motion is normal. There is no thrombus. Right Ventricle The right ventricle is not well visualized secondary to technical limitations. Atria Right atrium not well visualized secondary to technical limitations. The left atrial size is normal. Mitral Valve There is no evidence of mitral valve prolapse. There is no vegetation seen on the mitral valve. There is no mitral valve stenosis. There is a trace amount of mitral regurgitation. Aortic Valve There is no aortic valvular vegetation. There is no aortic valve stenosis. There is no LVOT obstruction. No aortic regurgitation is present. Tricuspid Valve Tricuspid valve not well interogated.Probably no TR.Unable to calculate RVSP due tack of TR jet. Pulmonic Valve There is no pulmonic valvular stenosis. There is a trace amount of pulmonic regurgitation. Great Vessels The aortic root is normal size. Effusions There is no pericardial effusion. : MARIA ESTHER BRUCE > Maria Esther Bruce
--- NOTE | 2018-11-10 14:52 | PDOC CONSULTATION ---
Consultation Consult Date: 11/08/18 Attending physician:: PONCE LOWE Consult reason:: gram neg septic shock History of Present Illness Admission Date/PCP: 11/07/18 14:23 JOHN CANNON MD History of Present Illness: [place] is a 48 year old female, multiple medical problems presented to the emergency room with complaints of fever weakness and hypotension she was subsequently found to have a UTI gram-negative rods and a large decubiti 5.5 cm. She is recently been hospitalized for left total hip in August 2015 he continues to smoke up until the day of admission approximately [id number] history Past Medical History Cardiac Medical History: Reports: Hyperlipidema, Hypertension Denies: Atrial Fibrillation, Congestive Heart Failure, Coronary Artery Disease, Myocardial Infarction, Peripheral Vascular Disease, Pulmonary Embolism, Heart Murmur Pulmonary Medical History: Reports: Pneumonia Denies: Asthma, Bronchitis, Chronic Obstructive Pulmonary Disease (COPD), Respiratory Failure, Sleep Apnea, Tuberculosis Neurological Medical History: Reports: Multiple Sclerosis Denies: Seizures Endocrine Medical History: Reports: Diabetes Mellitus Type 2 Denies: Diabetes Mellitus Type 1, Hyperthyroidism, Hypothyroidism Malignancy Medical History: Reports: Ovarian Cancer Denies: Breast Cancer, Cervical Cancer, Leukemia, Lung Cancer GI Medical History: Reports: Gastroesophageal Reflux Disease Denies: Cirrhosis, Crohn's Disease, Hepatitis, Hiatal Hernia Musculoskeltal Medical History: Reports: Arthritis Denies: Fibromyalgia Skin Medical History: Denies: Eczema, Psoriasis Psychiatric Medical History: Reports: Bipolar Disorder, Depression Denies: Dementia, Post Traumatic Stress Disorder Traumatic Medical History: Denies: Pneumothorax Hematology: Reports: Anemia Denies: Hemophilia, Sickle Cell Disease Infectious Medical History: Denies: HIV Past Surgical History Past Surgical History: Reports: Cholecystectomy, Gastric Bypass Surgery, Hysterectomy, Orthopedic Surgery - LLE, left jaw, total left hip arthroplasty on 09/08/2018. Denies: Amputation, Appendectomy, Section, Colostomy, Coronary Artery Bypass Graft, Herniorrhaphy, Mastectomy, Pacemaker, Tonsillectomy, Tubal Ligation Social History Information Source: [facility] Records Smoking Status: Current Every Day Smoker Cigarettes Packs Per Day: 15 Cigars Per Day: 0 Pipes Per Day: 0 Last Time Smoked: 11/06/2018 Frequency of Alcohol Use: Rare Hx Recreational Drug Use: No Drugs: None Hx Prescription Drug Abuse: No Family History Family History: DM, Hypertension Parental Family History Reviewed: No Children Family History Reviewed: No Sibling(s) Family History Reviewed.: No Medication/Allergy Home Medications: Benztropine Mesylate 1 mg PO BID 02/18/18 Biotin 5,000 mcg PO [id number] 02/18/18 Esomeprazole Magnesium [Nexium] 40 mg PO DAILY 02/18/18 Levothyroxine Sodium [Synthroid 0.088 mg Tablet] 0.088 mg PO Q6AM 02/18/18 Lurasidone HCl [Latuda] 40 mg PO BIDBS 02/18/18 Lisinopril [Prinivil 2.5 mg Tablet] 2.5 mg PO DAILY #30 tablet 02/28/18 Sertraline HCl [Zoloft 50 mg Tablet] 100 mg PO DAILY 08/20/18 Aspirin [Ecotrin] 81 mg PO DAILY 09/08/18 Amitriptyline HCl [Elavil 100 mg Tablet] 100 mg PO DAILY 11/07/18 Carvedilol [Coreg 3.125 mg Tablet] 3.125 mg PO Q12 11/07/18 Fludrocortisone Acetate [Florinef 0.1 mg Tablet] 0.1 mg PO DAILY 11/07/18 Furosemide [Lasix 40 mg Tablet] 40 mg PO BID 11/07/18 Gabapentin [Neurontin 300 mg Capsule] 300 mg PO Q8 11/07/18 Meloxicam [Mobic] 7.5 mg PO DAILY 11/07/18 Naloxegol Oxalate [Movantik 25 mg Tablet] 25 mg PO QAM 11/07/18 Ondansetron [Zofran Odt 4 mg Tablet] 2 tab PO Q12 11/07/18 Oxycodone HCl [Oxycodone HCl 10 MG Tablet] 10 mg PO Q4HP PRN 11/07/18 Potassium Chloride 20 meq PO DAILY 11/07/18 Topiramate [Topamax] 25 mg PO QAM 11/07/18 Topiramate [Topamax] 50 mg PO QPM 11/07/18 Allergies/Adverse Reactions: cilastatin [From Primaxin IV] Allergy (Intermediate, Verified 09/08/18 10:48) Facial swelling imipenem [From Primaxin IV] Allergy (Intermediate, Verified 09/08/18 10:48) Facial swelling Penicillins Allergy (Mild, Verified 09/08/18 10:48) Generalized rash Sulfa (Sulfonamide Antibiotics) Allergy (Mild, Verified 09/08/18 10:48) Generalized rash Review of Systems ROS unobtainable: Due to mental status - Very weak unable to give adequate history or review of systems information obtained current and past medical history Physical Exam Vital Signs: Temp Pulse Resp BP Pulse Ox 100.8 F H 108 H 12 102/56 L 94 11/08/18 10:00 11/07/18 20:00 11/08/18 06:23 11/08/18 06:23 11/08/18 06:23 Intake & Output 11/07/18 11/08/18 11/09/18 06:59 06:59 06:59 Intake Total 4665 240 Output Total 1375 245 Balance 3290 -5 Weight 61.2 kg General appearance: PRESENT: disheveled, mild distress Head exam: PRESENT: atraumatic, normocephalic Eye exam: PRESENT: conjunctiva pale. ABSENT: nystagmus, scleral icterus Mouth exam: PRESENT: dry mucosa, neck supple, tongue midline Neck exam: ABSENT: carotid bruit, JVD, lymphadenopathy, thyromegaly, tracheal deviation, tracheostomy Respiratory exam: PRESENT: decreased breath sounds, rales, rhonchi, unlabored. ABSENT: retraction, stridor, tachypnea Cardiovascular exam: PRESENT: RRR, +S1, +S2, tachycardia Pulses: PRESENT: normal radial pulses GI/Abdominal exam: PRESENT: soft Extremities exam: PRESENT: tenderness. ABSENT: calf tenderness, clubbing, joint swelling Musculoskeletal exam: ABSENT: ambulatory, deformity, dislocation Neurological exam: PRESENT: altered, awake Psychiatric exam: PRESENT: flat affect Skin exam: PRESENT: dry, warm Results Laboratory Results: 11/08/18 06:44 11/08/18 05:00 11/07/18 11/07/18 11/07/18 09:57 09:57 09:57 WBC RBC Hgb Hct MCV MCH MCHC RDW Plt Count Seg Neutrophils % Lymphocytes % Monocytes % Eosinophils % Basophils % Absolute Neutrophils Absolute Lymphocytes Absolute Monocytes Absolute Eosinophils Absolute Basophils Carbonic Acid HCO3/H2CO3 Ratio ABG pH ABG pCO2 ABG pO2 ABG HCO3 ABG O2 Saturation ABG Base Excess FiO2 Sodium 140.2 Potassium 1.8 L* Chloride 108 H Carbon Dioxide 25 Anion Gap 7 BUN 13 Creatinine 0.70 Est GFR ( Amer) > 60 Est GFR (Non-Af Amer) > 60 Glucose 91 Lactic Acid Calcium 6.2 L* Ionized Calcium Ney 0.94 L Phosphorus 2.8 Magnesium 1.6 Cancelled Total Bilirubin 0.6 AST 35 ALT 35 Alkaline Phosphatase 219 H Ammonia Total Protein 3.9 L Albumin 1.5 L Triglycerides Cholesterol LDL Cholesterol Direct VLDL Cholesterol HDL Cholesterol Amylase < 30 L Lipase 16.6 L TSH Free T4 Urine Color Urine Appearance Urine pH Ur Specific Pratt Urine Protein Urine Glucose (UA) Urine Ketones Urine Blood Urine Nitrite Ur Leukocyte Esterase Urine WBC (Auto) Urine RBC (Auto) 11/07/18 11/07/18 11/07/18 09:57 12:27 16:11 WBC RBC Hgb Hct MCV MCH MCHC RDW Plt Count Seg Neutrophils % Lymphocytes % Monocytes % Eosinophils % Basophils % Absolute Neutrophils Absolute Lymphocytes Absolute Monocytes Absolute Eosinophils Absolute Basophils Carbonic Acid HCO3/H2CO3 Ratio ABG pH ABG pCO2 ABG pO2 ABG HCO3 ABG O2 Saturation ABG Base Excess FiO2 Sodium Potassium Chloride Carbon Dioxide Anion Gap BUN Creatinine Est GFR ( Amer) Est GFR (Non-Af Amer) Glucose Lactic Acid 1.4 Calcium Ionized Calcium Ney Phosphorus Magnesium Total Bilirubin AST ALT Alkaline Phosphatase Ammonia Total Protein Albumin Triglycerides Cholesterol LDL Cholesterol Direct VLDL Cholesterol HDL Cholesterol Amylase Lipase TSH 0.08 L Free T4 1.53 Urine Color YELLOW Urine Appearance CLEAR Urine pH 6.0 Ur Specific Pratt 1.038 Urine Protein NEGATIVE Urine Glucose (UA) NEGATIVE Urine Ketones TRACE H Urine Blood NEGATIVE Urine Nitrite NEGATIVE Ur Leukocyte Esterase NEGATIVE Urine WBC (Auto) 6 Urine RBC (Auto) 1 11/07/18 11/07/18 11/08/18 16:29 17:05 05:00 WBC RBC Hgb Hct MCV MCH MCHC RDW Plt Count Seg Neutrophils % Lymphocytes % Monocytes % Eosinophils % Basophils % Absolute Neutrophils Absolute Lymphocytes Absolute Monocytes Absolute Eosinophils Absolute Basophils Carbonic Acid 1.06 HCO3/H2CO3 Ratio 25:1 ABG pH 7.51 H ABG pCO2 35.1 ABG pO2 70.5 L ABG HCO3 27.3 H ABG O2 Saturation 95.6 ABG Base Excess 4.1 FiO2 21% Sodium 139.4 Potassium 3.0 L* D Chloride 111 H Carbon Dioxide 22 Anion Gap 6 BUN 7 Creatinine 0.47 L Est GFR ( Amer) > 60 Est GFR (Non-Af Amer) > 60 Glucose 118 H Lactic Acid Calcium 6.7 L* Ionized Calcium Ney Phosphorus Magnesium Total Bilirubin 0.5 AST 27 ALT 32 Alkaline Phosphatase 228 H Ammonia 29.2 Total Protein 3.7 L Albumin 1.5 L Triglycerides 124 Cholesterol < 50.00 LDL Cholesterol Direct 31 VLDL Cholesterol 25.0 HDL Cholesterol 18 L Amylase Lipase TSH Free T4 Urine Color Urine Appearance Urine pH Ur Specific Pratt Urine Protein Urine Glucose (UA) Urine Ketones Urine Blood Urine Nitrite Ur Leukocyte Esterase Urine WBC (Auto) Urine RBC (Auto) 11/08/18 06:44 WBC 16.5 H RBC 3.07 L Hgb 10.2 L Hct 30.8 L MCV 101 H MCH 33.2 MCHC 33.0 RDW 17.6 H Plt Count 273 Seg Neutrophils % 84.6 H Lymphocytes % 11.1 L Monocytes % 2.8 L Eosinophils % 0.4 Basophils % 1.1 Absolute Neutrophils 14.0 H Absolute Lymphocytes 1.8 Absolute Monocytes 0.5 Absolute Eosinophils 0.1 Absolute Basophils 0.2 Carbonic Acid HCO3/H2CO3 Ratio ABG pH ABG pCO2 ABG pO2 ABG HCO3 ABG O2 Saturation ABG Base Excess FiO2 Sodium Potassium Chloride Carbon Dioxide Anion Gap BUN Creatinine Est GFR ( Amer) Est GFR (Non-Af Amer) Glucose Lactic Acid Calcium Ionized Calcium Ney Phosphorus Magnesium Total Bilirubin AST ALT Alkaline Phosphatase Ammonia Total Protein Albumin Triglycerides Cholesterol LDL Cholesterol Direct VLDL Cholesterol HDL Cholesterol Amylase Lipase TSH Free T4 Urine Color Urine Appearance Urine pH Ur Specific Pratt Urine Protein Urine Glucose (UA) Urine Ketones Urine Blood Urine Nitrite Ur Leukocyte Esterase Urine WBC (Auto) Urine RBC (Auto) 11/07/18 11/07/18 11/07/18 08:10 09:57 17:05 Creatine Kinase 89 CK-MB (CK-2) Troponin I Cancelled < 0.012 NT-Pro-B Natriuret Pep Cancelled 172 H 11/07/18 11/07/18 11/07/18 17:05 23:02 23:02 Creatine Kinase 104 CK-MB (CK-2) 0.89 0.92 Troponin I < 0.012 < 0.012 NT-Pro-B Natriuret Pep 11/08/18 11/08/18 05:00 05:00 Creatine Kinase 73 CK-MB (CK-2) 0.68 Troponin I < 0.012 NT-Pro-B Natriuret Pep Impressions: Chest X-Ray 11/07/18 08:06 IMPRESSION: NO ACUTE RADIOGRAPHIC FINDING IN THE CHEST. Abdomen/Pelvis CT 11/07/18 10:58 IMPRESSION: 1. There is severe thickening of the terminal ileum, cecum, and proximal transverse colon, consistent with nonspecific infectious or inflammatory colitis. This pattern of inflammation may be seen in inflammatory bowel disease such as Crohn's disease. Correlate for appropriate history of clinical signs and symptoms if present. 2. Hepatomegaly and severe hepatic steatosis. 3. Status post Shanthi-en-Y gastric bypass. 4. Multifocal bilateral geographic ground-glass pulmonary opacity in the included bilateral lung bases, an unusual pattern that can be seen in atypical infection as well as inflammatory pneumonitis such as organizing pneumonia. Assessment & Plan - Diagnosis (1) Gram negative septic shock Is this a current diagnosis for this admission?: Yes Plan: As per cultures (2) Diabetes mellitus type 2 in obese Plan: Sliding scale insulin (3) Malnutrition Is this a current diagnosis for this admission?: Yes Plan: TPN versus interval protein feedings - Time Total Critical Time (Minutes): 55
--- NOTE | 2018-11-10 14:56 | PDOC PROGRESS REPORT ---
Subjective Progress Note for:: 11/09/18 Subjective:: Obtunded Reason For Visit: SEPSIS, BILATERAL PNEUMONIA, HYPOTENSION, Physical Exam Vital Signs: Temp Pulse Resp BP Pulse Ox 99.0 F 94 22 H 108/71 92 11/09/18 11:23 11/08/18 22:00 11/09/18 07:00 11/09/18 06:53 11/09/18 08:16 Intake & Output 11/08/18 11/09/18 11/10/18 06:59 06:59 06:59 Intake Total 4665 4931 22 Output Total 1375 1165 200 Balance 3290 3766 -178 Weight 61.2 kg 69.8 kg General appearance: PRESENT: no acute distress, disheveled, well-developed, well-nourished Head exam: PRESENT: atraumatic, normocephalic Eye exam: PRESENT: conjunctiva pale. ABSENT: nystagmus, scleral icterus Mouth exam: PRESENT: dry mucosa, neck supple, tongue midline Neck exam: ABSENT: carotid bruit, JVD, lymphadenopathy, thyromegaly, tracheal deviation, tracheostomy Respiratory exam: PRESENT: decreased breath sounds, prolonged expiratory phas, rales, rhonchi, unlabored, wheezes. ABSENT: retraction, stridor Cardiovascular exam: PRESENT: RRR, +S1, +S2 Pulses: PRESENT: normal radial pulses GI/Abdominal exam: PRESENT: soft. ABSENT: tenderness Gentrourinary exam: PRESENT: indwelling catheter Extremities exam: PRESENT: pedal edema. ABSENT: calf tenderness, clubbing, joint swelling Musculoskeletal exam: ABSENT: deformity, dislocation Neurological exam: PRESENT: altered, awake Skin exam: PRESENT: dry, warm Results Laboratory Results: 11/09/18 06:40 11/09/18 06:40 11/08/18 11/08/18 11/08/18 16:30 16:30 17:00 WBC 24.0 H RBC 3.00 L Hgb 9.8 L Hct 30.3 L MCV 101 H MCH 32.8 MCHC 32.4 RDW 17.0 H Plt Count 313 Seg Neutrophils % Not Reportable Lymphocytes % Not Reportable Monocytes % Not Reportable Eosinophils % Not Reportable Basophils % Not Reportable Absolute Neutrophils Not Reportable Absolute Lymphocytes Not Reportable Absolute Monocytes Not Reportable Absolute Eosinophils Not Reportable Absolute Basophils Not Reportable Carbonic Acid Cancelled HCO3/H2CO3 Ratio Cancelled ABG pH Cancelled ABG pCO2 Cancelled ABG pO2 Cancelled ABG HCO3 Cancelled ABG O2 Saturation Cancelled ABG Base Excess Cancelled VBG pH VBG pCO2 VBG HCO3 VBG Base Excess FiO2 Cancelled Sodium 138.2 Potassium 4.0 D Chloride 111 H Carbon Dioxide 24 Anion Gap 3 L BUN 6 L Creatinine 0.41 L Est GFR ( Amer) > 60 Est GFR (Non-Af Amer) > 60 Glucose 136 H Calcium 6.8 L* Ionized Calcium Ney Magnesium 1.5 L Total Bilirubin AST ALT Alkaline Phosphatase Total Protein Albumin Stool Occult Blood 11/09/18 11/09/18 11/09/18 06:20 06:40 06:40 WBC 18.0 H RBC 2.63 L Hgb 8.5 L Hct 26.6 L MCV 101 H MCH 32.3 MCHC 31.9 L RDW 16.9 H Plt Count 199 Seg Neutrophils % 89.1 H Lymphocytes % 8.3 L Monocytes % 2.3 L Eosinophils % 0.1 Basophils % 0.2 Absolute Neutrophils 16.1 H Absolute Lymphocytes 1.5 Absolute Monocytes 0.4 Absolute Eosinophils 0.0 Absolute Basophils 0.0 Carbonic Acid HCO3/H2CO3 Ratio ABG pH ABG pCO2 ABG pO2 ABG HCO3 ABG O2 Saturation ABG Base Excess VBG pH VBG pCO2 VBG HCO3 VBG Base Excess FiO2 Sodium 133.9 L Potassium 4.5 Chloride 110 H Carbon Dioxide 22 Anion Gap 2 L BUN 5 L Creatinine 0.37 L Est GFR ( Amer) > 60 Est GFR (Non-Af Amer) > 60 Glucose 103 Calcium 6.6 L* Ionized Calcium Eny Magnesium 1.5 L Total Bilirubin 0.4 AST 31 ALT 34 Alkaline Phosphatase 178 H Total Protein 3.2 L Albumin 1.2 L Stool Occult Blood NEGATIVE 11/09/18 11/09/18 07:00 07:00 WBC RBC Hgb Hct MCV MCH MCHC RDW Plt Count Seg Neutrophils % Lymphocytes % Monocytes % Eosinophils % Basophils % Absolute Neutrophils Absolute Lymphocytes Absolute Monocytes Absolute Eosinophils Absolute Basophils Carbonic Acid HCO3/H2CO3 Ratio ABG pH ABG pCO2 ABG pO2 ABG HCO3 ABG O2 Saturation ABG Base Excess VBG pH 7.40 VBG pCO2 35.0 VBG HCO3 21.0 VBG Base Excess -3.4 FiO2 Sodium Potassium Chloride Carbon Dioxide Anion Gap BUN Creatinine Est GFR ( Amer) Est GFR (Non-Af Amer) Glucose Calcium Ionized Calcium Ney 1.07 L Magnesium Total Bilirubin AST ALT Alkaline Phosphatase Total Protein Albumin Stool Occult Blood 11/07/18 11/07/18 11/07/18 08:10 09:57 17:05 Creatine Kinase 89 CK-MB (CK-2) Troponin I Cancelled < 0.012 NT-Pro-B Natriuret Pep Cancelled 172 H 11/07/18 11/07/18 11/07/18 17:05 23:02 23:02 Creatine Kinase 104 CK-MB (CK-2) 0.89 0.92 Troponin I < 0.012 < 0.012 NT-Pro-B Natriuret Pep 11/08/18 11/08/18 05:00 05:00 Creatine Kinase 73 CK-MB (CK-2) 0.68 Troponin I < 0.012 NT-Pro-B Natriuret Pep Impressions: Abdomen/Pelvis CT 11/07/18 10:58 IMPRESSION: 1. There is severe thickening of the terminal ileum, cecum, and proximal transverse colon, consistent with nonspecific infectious or inflammatory colitis. This pattern of inflammation may be seen in inflammatory bowel disease such as Crohn's disease. Correlate for appropriate history of clinical signs and symptoms if present. 2. Hepatomegaly and severe hepatic steatosis. 3. Status post Shanthi-en-Y gastric bypass. 4. Multifocal bilateral geographic ground-glass pulmonary opacity in the included bilateral lung bases, an unusual pattern that can be seen in atypical infection as well as inflammatory pneumonitis such as organizing pneumonia. Chest X-Ray 11/08/18 00:00 IMPRESSION: Good position of central line. No pneumothorax. Chest/Abdomen CTA 11/09/18 09:21 IMPRESSION: 1. Ground-glass opacities and bilateral effusions. Similar appearance to February study, suspect recurrent pulmonary edema. Superimposed consolidation most notable in the left upper lobe. This may reflect pneumonia. 2. No pulmonary embolus. Assessment & Plan - Diagnosis (1) Gram negative septic shock Is this a current diagnosis for this admission?: Yes Plan: As per cultures Labs- All tests 24 hr 11/08/18 11/09/18 16:30 06:40 WBC 24.0 H 18.0 H Generic Name Dose Route Start Last Admin Trade Name Freq PRN Reason Stop Dose Admin Norepinephrine Bitartrate 4 mg 250 mls @ 0 mls/hr 12/30/18 22:10 11/10/18 1 4:00 / Dextrose IV 12/09/18 22:09 0 mls/hr CONTINUOUS PRN 0 mcg/min THIS MED IS NOT "PRN" Protocol Titrate Vasopressin 100 unit/ Dextrose 250 mls @ 0 mls/hr 11/08/18 15:10 11/10/18 09:03 IV 12/08/18 15:09 4.5 mls/hr CONTINUOUS PRN 0.03 unit/min THIS MED IS NOT "PRN" Protocol Titrate (2) Diabetes mellitus type 2 in obese Is this a current diagnosis for this admission?: Yes Plan: Sliding scale insulin (3) Malnutrition Is this a current diagnosis for this admission?: Yes Plan: TPN versus interval protein feedings - Time Total Critical Time (Minutes): 45
[2018-11-10] MEDS ORDERED: GENTAMICIN SULFATE 80 MG in DEXTROSE 5%-WATER 100 ML IV ONE (15:00)
[2018-11-10 16:47] LABS: ABSOLUTE MONOCYTES (AUTO) 0.4 10^3/uL (0.1-1.4); ABSOLUTE NEUT (AUTO) 12.8 10^3/uL (1.7-8.2); BASOPHILS % (AUTO) 0.2 % (0-2); EOSINOPHILS % (AUTO) 0.1 % (0-6); HEMATOCRIT 25.5 % (36.0-47.0); HEMOGLOBIN 8.2 g/dL (12.0-15.5); LYMPHOCYTES % (AUTO) 7.3 % (13-45); MEAN CORPUSCULAR HGB CONC 32.2 g/dL (32.0-36.0); MEAN CORPUSCULAR VOLUME 103 fl (80-97); MONOCYTES % (AUTO) 2.6 % (3-13); PLATELET COUNT 185 10^3/uL (150-450); RED BLOOD COUNT 2.49 10^6/uL (3.72-5.28); RED CELL DISTRIBUTION WIDTH 16.5 % (11.5-14.0); SEGMENTED NEUTROPHILS % (AUTO) 89.8 % (42-78); TOTAL CELLS COUNTED % (AUTO) 100 %; WHITE BLOOD COUNT 14.3 10^3/uL (4.0-10.5)
[2018-11-10 17:02] LABS: BLOOD UREA NITROGEN 4 mg/dL (7-20); GLUCOSE 98 mg/dL (75-110); POTASSIUM 4.5 mmol/L (3.6-5.0)
[2018-11-10 17:08] LABS: CARBON DIOXIDE 21 mmol/L (22-30); CHLORIDE 106 mmol/L (98-107); SODIUM 129.4 mmol/L (137-145)
[2018-11-10 17:19] LABS: ANION GAP 2 (5-19)
[2018-11-10] MEDS ORDERED: LORAZEPAM INJ 2 MG/1 ML VIAL ONE (17:55)
--- NOTE | 2018-11-10 17:57 | PDOC CONSULTATION ---
Consultation Attending physician:: JOHN CANNON Consult reason:: Colitis colitis History of Present Illness Admission Date/PCP: 11/07/18 14:23 JOHN CANNON MD Patient complains of: Weakness History of Present Illness: H[place] is a 48 year old female Who presents emergency department complaining of weakness, recent fall, hip replacement, extended convalescence, with decreased p.o. intake. Patient has a history of colonoscopy in the past with no pathologic findings. She had a loose bowel movement in the last 24 hours. She denies abdominal pain, history of gastrointestinal problems or colitis. She had a CT scan of the abdomen and pelvis this admission without oral contrast which was interpreted as having changes consistent with terminal ileitis and colitis of the right colon. Surgery was consulted. Patient was hospitalized in the ICU with bilateral pleural effusions, sepsis of unclear etiology Past Medical History Cardiac Medical History: Reports: Hyperlipidema, Hypertension Denies: Atrial Fibrillation, Congestive Heart Failure, Coronary Artery Disease, Myocardial Infarction, Peripheral Vascular Disease, Pulmonary Embolism, Heart Murmur Pulmonary Medical History: Reports: Pneumonia Denies: Asthma, Bronchitis, Chronic Obstructive Pulmonary Disease (COPD), Respiratory Failure, Sleep Apnea, Tuberculosis Neurological Medical History: Reports: Multiple Sclerosis Denies: Seizures Endocrine Medical History: Reports: Diabetes Mellitus Type 2 Denies: Diabetes Mellitus Type 1, Hyperthyroidism, Hypothyroidism Malignancy Medical History: Reports: Ovarian Cancer Denies: Breast Cancer, Cervical Cancer, Leukemia, Lung Cancer GI Medical History: Reports: Gastroesophageal Reflux Disease Denies: Cirrhosis, Crohn's Disease, Hepatitis, Hiatal Hernia Musculoskeltal Medical History: Reports: Arthritis Denies: Fibromyalgia Skin Medical History: Denies: Eczema, Psoriasis Psychiatric Medical History: Reports: Bipolar Disorder, Depression Denies: Dementia, Post Traumatic Stress Disorder Traumatic Medical History: Denies: Pneumothorax Hematology: Reports: Anemia Denies: Hemophilia, Sickle Cell Disease Infectious Medical History: Denies: HIV Past Surgical History Past Surgical History: Reports: Cholecystectomy, Gastric Bypass Surgery, Hysterectomy, Orthopedic Surgery - LLE, left jaw, total left hip arthroplasty on 09/08/2018. Denies: Amputation, Appendectomy, Section, Colostomy, Coronary Artery Bypass Graft, Herniorrhaphy, Mastectomy, Pacemaker, Tonsillectomy, Tubal Ligation Social History Smoking Status: Current Every Day Smoker Cigarettes Packs Per Day: 15 Cigars Per Day: 0 Pipes Per Day: 0 Last Time Smoked: 11/06/2018 Frequency of Alcohol Use: Rare Hx Recreational Drug Use: No Drugs: None Hx Prescription Drug Abuse: No Family History Family History: DM, Hypertension Parental Family History Reviewed: Yes Children Family History Reviewed: Yes Sibling(s) Family History Reviewed.: Yes Medication/Allergy Home Medications: Benztropine Mesylate 1 mg PO BID 02/18/18 Biotin 5,000 mcg PO [id number] 02/18/18 Esomeprazole Magnesium [Nexium] 40 mg PO DAILY 02/18/18 Levothyroxine Sodium [Synthroid 0.088 mg Tablet] 0.088 mg PO Q6AM 02/18/18 Lurasidone HCl [Latuda] 40 mg PO BIDBS 02/18/18 Lisinopril [Prinivil 2.5 mg Tablet] 2.5 mg PO DAILY #30 tablet 02/28/18 Sertraline HCl [Zoloft 50 mg Tablet] 100 mg PO DAILY 08/20/18 Aspirin [Ecotrin] 81 mg PO DAILY 09/08/18 Amitriptyline HCl [Elavil 100 mg Tablet] 100 mg PO DAILY 11/07/18 Carvedilol [Coreg 3.125 mg Tablet] 3.125 mg PO Q12 11/07/18 Fludrocortisone Acetate [Florinef 0.1 mg Tablet] 0.1 mg PO DAILY 11/07/18 Furosemide [Lasix 40 mg Tablet] 40 mg PO BID 11/07/18 Gabapentin [Neurontin 300 mg Capsule] 300 mg PO Q8 11/07/18 Meloxicam [Mobic] 7.5 mg PO DAILY 11/07/18 Naloxegol Oxalate [Movantik 25 mg Tablet] 25 mg PO QAM 11/07/18 Ondansetron [Zofran Odt 4 mg Tablet] 2 tab PO Q12 11/07/18 Oxycodone HCl [Oxycodone HCl 10 MG Tablet] 10 mg PO Q4HP PRN 11/07/18 Potassium Chloride 20 meq PO DAILY 11/07/18 Topiramate [Topamax] 25 mg PO QAM 11/07/18 Topiramate [Topamax] 50 mg PO QPM 11/07/18 Allergies/Adverse Reactions: cilastatin [From Primaxin IV] Allergy (Intermediate, Verified 09/08/18 10:48) Facial swelling imipenem [From Primaxin IV] Allergy (Intermediate, Verified 09/08/18 10:48) Facial swelling Penicillins Allergy (Mild, Verified 09/08/18 10:48) Generalized rash Sulfa (Sulfonamide Antibiotics) Allergy (Mild, Verified 09/08/18 10:48) Generalized rash Review of Systems Constitutional: PRESENT: as per HPI Eyes: ABSENT: visual disturbances Ears: ABSENT: hearing changes Nose, Mouth, and Throat: PRESENT: other Physical Exam Vital Signs: Temp Pulse Resp BP Pulse Ox 99.7 F 104 H 12 101/55 L 93 11/10/18 16:10 11/10/18 16:00 11/10/18 16:10 11/10/18 16:10 11/10/18 16:10 Intake & Output 11/09/18 11/10/18 11/11/18 06:59 06:59 06:59 Intake Total 4931 4445 1616 Output Total 1165 1535 1000 Balance 3766 2910 616 Weight 69.8 kg 67.6 kg 67.6 kg General appearance: PRESENT: mild distress Head exam: PRESENT: normocephalic Eye exam: PRESENT: EOMI Mouth exam: PRESENT: dry mucosa Neck exam: PRESENT: full ROM Respiratory exam: PRESENT: decreased breath sounds Cardiovascular exam: PRESENT: RRR Pulses: PRESENT: normal carotid pulses GI/Abdominal exam: PRESENT: other - Scars consistent with previous surgery including gastric bypass, Dr. Johnson, 7 years ago, No peritoneal signs no guarding no rigidity Rectal exam: PRESENT: deferred Skin exam: PRESENT: other - Severe edema Results Laboratory Results: 11/10/18 13:45 11/10/18 13:45 11/10/18 11/10/18 11/10/18 04:30 04:30 04:30 WBC 19.4 H RBC 2.78 L Hgb 9.1 L Hct 28.4 L MCV 102 H MCH 32.7 MCHC 31.9 L RDW 16.5 H Plt Count 223 Seg Neutrophils % 91.5 H Lymphocytes % 5.4 L Monocytes % 2.9 L Eosinophils % 0.0 Basophils % 0.2 Absolute Neutrophils 17.7 H Absolute Lymphocytes 1.0 Absolute Monocytes 0.6 Absolute Eosinophils 0.0 Absolute Basophils 0.0 Carbonic Acid 0.99 L HCO3/H2CO3 Ratio 19:1 ABG pH 7.38 ABG pCO2 32.9 L ABG pO2 114.1 H ABG HCO3 19.0 L ABG O2 Saturation 98.1 H ABG Base Excess -5.4 VBG pH VBG pCO2 VBG HCO3 VBG Base Excess FiO2 40% Sodium 131.1 L Potassium 4.2 Chloride 108 H Carbon Dioxide 21 L Anion Gap 3 L BUN 4 L Creatinine 0.36 L Est GFR ( Amer) > 60 Est GFR (Non-Af Amer) > 60 Glucose 118 H Lactic Acid Calcium 7.0 L* Ionized Calcium Ney Magnesium 1.8 Total Bilirubin 0.3 AST 33 ALT 36 Alkaline Phosphatase 227 H Total Protein 3.4 L Albumin 1.3 L 11/10/18 11/10/18 11/10/18 06:30 06:30 13:45 WBC RBC Hgb Hct MCV MCH MCHC RDW Plt Count Seg Neutrophils % Lymphocytes % Monocytes % Eosinophils % Basophils % Absolute Neutrophils Absolute Lymphocytes Absolute Monocytes Absolute Eosinophils Absolute Basophils Carbonic Acid HCO3/H2CO3 Ratio ABG pH ABG pCO2 ABG pO2 ABG HCO3 ABG O2 Saturation ABG Base Excess VBG pH 7.36 VBG pCO2 35.3 VBG HCO3 19.5 L VBG Base Excess -5.4 FiO2 Sodium Potassium Chloride Carbon Dioxide Anion Gap BUN Creatinine Est GFR ( Amer) Est GFR (Non-Af Amer) Glucose Lactic Acid 2.1 Calcium Ionized Calcium Ney 1.06 L Magnesium Total Bilirubin AST ALT Alkaline Phosphatase Total Protein Albumin 11/10/18 11/10/18 13:45 13:45 WBC 14.3 H RBC 2.49 L Hgb 8.2 L Hct 25.5 L MCV 103 H MCH 33.0 MCHC 32.2 RDW 16.5 H Plt Count 185 Seg Neutrophils % 89.8 H Lymphocytes % 7.3 L Monocytes % 2.6 L Eosinophils % 0.1 Basophils % 0.2 Absolute Neutrophils 12.8 H Absolute Lymphocytes 1.0 Absolute Monocytes 0.4 Absolute Eosinophils 0.0 Absolute Basophils 0.0 Carbonic Acid HCO3/H2CO3 Ratio ABG pH ABG pCO2 ABG pO2 ABG HCO3 ABG O2 Saturation ABG Base Excess VBG pH VBG pCO2 VBG HCO3 VBG Base Excess FiO2 Sodium 129.4 L Potassium 4.5 Chloride 106 Carbon Dioxide 21 L Anion Gap 2 L BUN 4 L Creatinine 0.40 L Est GFR ( Amer) > 60 Est GFR (Non-Af Amer) > 60 Glucose 98 Lactic Acid Calcium 7.0 L* Ionized Calcium Ney Magnesium 1.8 Total Bilirubin AST ALT Alkaline Phosphatase Total Protein Albumin 11/07/18 11/07/18 11/07/18 08:10 09:57 17:05 Creatine Kinase 89 CK-MB (CK-2) Troponin I Cancelled < 0.012 NT-Pro-B Natriuret Pep Cancelled 172 H 11/07/18 11/07/18 11/07/18 17:05 23:02 23:02 Creatine Kinase 104 CK-MB (CK-2) 0.89 0.92 Troponin I < 0.012 < 0.012 NT-Pro-B Natriuret Pep 11/08/18 11/08/18 05:00 05:00 Creatine Kinase 73 CK-MB (CK-2) 0.68 Troponin I < 0.012 NT-Pro-B Natriuret Pep Impressions: Abdomen/Pelvis CT 11/07/18 10:58 IMPRESSION: 1. There is severe thickening of the terminal ileum, cecum, and proximal transverse colon, consistent with nonspecific infectious or inflammatory colitis. This pattern of inflammation may be seen in inflammatory bowel disease such as Crohn's disease. Correlate for appropriate history of clinical signs and symptoms if present. 2. Hepatomegaly and severe hepatic steatosis. 3. Status post Shanthi-en-Y gastric bypass. 4. Multifocal bilateral geographic ground-glass pulmonary opacity in the included bilateral lung bases, an unusual pattern that can be seen in atypical infection as well as inflammatory pneumonitis such as organizing pneumonia. Chest/Abdomen CTA 11/09/18 09:21 IMPRESSION: 1. Ground-glass opacities and bilateral effusions. Similar appearance to February, suspect recurrent pulmonary edema. Superimposed consolidation most notable in the left upper lobe. This may reflect pneumonia. 2. No pulmonary embolus. Chest X-Ray 11/10/18 00:00 IMPRESSION: Left upper lobe pneumonia. Follow-up recommended. copyright 2010 [email or web address]- All Rights Reserved Assessment & Plan - Diagnosis (1) Colitis Is this a current diagnosis for this admission?: Yes Plan: Impression: Radiographic interpretation of colitis based on unenhanced CT scan of the abdomen and pelvis. I personally reviewed the images and this is a nonconclusive study due to poor delineation of the intraluminal anatomy. Pa tient's clinical history inconsistent with colitis. Patient's C. difficile titer negative. Recommendations 1. Low clinical suspicion for intra-abdominal pathology; occasion for surgical intervention at this time 2. If the evaluation of the abdomen clinically indicated, suggest repeating CT scan with oral contrast. 3. We will sign off for now; reconsult surgery if indicated. (2) Hypoalbuminemia Is this a current diagnosis for this admission?: Yes (4) Opiate dependence Qualifiers: Substance use status: uncomplicated Qualified Code(s): F11.20 - Opioid dependence, uncomplicated (5) Pneumonia Qualifiers: Pneumonia type: due to unspecified organism Laterality: unspecified laterality Lung location: unspecified part of lung Qualified Code(s): J18.9 - Pneumonia, unspecified organism (6) Sacral decubitus ulcer, stage II Is this a current diagnosis for this admission?: Yes
[2018-11-10] MEDS ORDERED: PANTOPRAZOLE SODIUM 40 MG VIAL IV SCH (18:00)
[2018-11-10] MEDS: FUROSEMIDE INJ/PF 20 MG/2 ML SDV IV SCH (18:24)
[2018-11-10] MEDS: HYDROCORTISONE SOD SUCCINATE INJ/PF 100 MG/2 ML SDV IV SCH ×2 (18:24→23:13)
[2018-11-10 18:35] LABS: ARTERIAL BLOOD BASE EXCESS -2.5 mmol/L; ARTERIAL BLOOD FIO2 40%; ARTERIAL BLOOD H2CO3 0.97 mmol/L (1.05-1.35); ARTERIAL BLOOD HCO3 21.3 mmol/L (20-24); ARTERIAL BLOOD O2 SATURATION 89.1 % (94-98); ARTERIAL BLOOD PCO2 32.1 mmHg (35-45); ARTERIAL BLOOD PH 7.44 (7.35-7.45); ARTERIAL BLOOD PO2 52.9 mmHg (80-100); ARTERIAL BLOOD TOTAL CO2 22.3 mmol/L (21-25)
[2018-11-10] MEDS ORDERED: PROPOFOL 1,000 MG/100 ML INFUS..BTL IV ONE (18:44)
--- NOTE | 2018-11-10 18:49 | PDOC PROGRESS REPORT ---
Subjective Progress Note for:: 11/10/18 Subjective:: The patient is breathing very heavily Patient is denied any chest pain Patient is denied any abdominal pain Patient's pH was 7.44 Po2 is low Patient seen by the surgery suggest no surgical indications Patient discussed with the pulmonary and suggestive patient's needs to be intubations due to the patient have a heavy breathing and PO2 is low Discussed with the about the patient's current situations Reason For Visit: SEPSIS, BILATERAL PNEUMONIA, HYPOTENSION, Physical Exam Vital Signs: Temp Pulse Resp BP Pulse Ox 100.8 F H 115 H 47 H 105/60 96 11/10/18 18:00 11/10/18 18:00 11/10/18 18:00 11/10/18 18:00 11/10/18 18:00 Intake & Output 11/09/18 11/10/18 11/11/18 06:59 06:59 06:59 Intake Total 4931 4445 1716 Output Total 1165 1535 1075 Balance 3766 2910 641 Weight 69.8 kg 67.6 kg 67.6 kg General appearance: PRESENT: mild distress Eye exam: PRESENT: PERRLA Mouth exam: PRESENT: neck supple Respiratory exam: PRESENT: decreased breath sounds Cardiovascular exam: PRESENT: +S1, +S2 GI/Abdominal exam: PRESENT: normal bowel sounds, soft Extremities exam: ABSENT: pedal edema Neurological exam: PRESENT: awake Results Laboratory Results: 11/10/18 13:45 11/10/18 13:45 11/10/18 11/10/18 11/10/18 04:30 04:30 04:30 WBC 19.4 H RBC 2.78 L Hgb 9.1 L Hct 28.4 L MCV 102 H MCH 32.7 MCHC 31.9 L RDW 16.5 H Plt Count 223 Seg Neutrophils % 91.5 H Lymphocytes % 5.4 L Monocytes % 2.9 L Eosinophils % 0.0 Basophils % 0.2 Absolute Neutrophils 17.7 H Absolute Lymphocytes 1.0 Absolute Monocytes 0.6 Absolute Eosinophils 0.0 Absolute Basophils 0.0 Carbonic Acid 0.99 L HCO3/H2CO3 Ratio 19:1 ABG pH 7.38 ABG pCO2 32.9 L ABG pO2 114.1 H ABG HCO3 19.0 L ABG O2 Saturation 98.1 H ABG Base Excess -5.4 VBG pH VBG pCO2 VBG HCO3 VBG Base Excess FiO2 40% Sodium 131.1 L Potassium 4.2 Chloride 108 H Carbon Dioxide 21 L Anion Gap 3 L BUN 4 L Creatinine 0.36 L Est GFR ( Amer) > 60 Est GFR (Non-Af Amer) > 60 Glucose 118 H Lactic Acid Calcium 7.0 L* Ionized Calcium Ney Magnesium 1.8 Total Bilirubin 0.3 AST 33 ALT 36 Alkaline Phosphatase 227 H Total Protein 3.4 L Albumin 1.3 L 11/10/18 11/10/18 11/10/18 06:30 06:30 13:45 WBC RBC Hgb Hct MCV MCH MCHC RDW Plt Count Seg Neutrophils % Lymphocytes % Monocytes % Eosinophils % Basophils % Absolute Neutrophils Absolute Lymphocytes Absolute Monocytes Absolute Eosinophils Absolute Basophils Carbonic Acid HCO3/H2CO3 Ratio ABG pH ABG pCO2 ABG pO2 ABG HCO3 ABG O2 Saturation ABG Base Excess VBG pH 7.36 VBG pCO2 35.3 VBG HCO3 19.5 L VBG Base Excess -5.4 FiO2 Sodium Potassium Chloride Carbon Dioxide Anion Gap BUN Creatinine Est GFR ( Amer) Est GFR (Non-Af Amer) Glucose Lactic Acid 2.1 Calcium Ionized Calcium Ney 1.06 L Magnesium Total Bilirubin AST ALT Alkaline Phosphatase Total Protein Albumin 11/10/18 11/10/18 11/10/18 13:45 13:45 18:15 WBC 14.3 H RBC 2.49 L Hgb 8.2 L Hct 25.5 L MCV 103 H MCH 33.0 MCHC 32.2 RDW 16.5 H Plt Count 185 Seg Neutrophils % 89.8 H Lymphocytes % 7.3 L Monocytes % 2.6 L Eosinophils % 0.1 Basophils % 0.2 Absolute Neutrophils 12.8 H Absolute Lymphocytes 1.0 Absolute Monocytes 0.4 Absolute Eosinophils 0.0 Absolute Basophils 0.0 Carbonic Acid 0.97 L HCO3/H2CO3 Ratio 21:1 ABG pH 7.44 ABG pCO2 32.1 L ABG pO2 52.9 L ABG HCO3 21.3 ABG O2 Saturation 89.1 L ABG Base Excess -2.5 VBG pH VBG pCO2 VBG HCO3 VBG Base Excess FiO2 40% Sodium 129.4 L Potassium 4.5 Chloride 106 Carbon Dioxide 21 L Anion Gap 2 L BUN 4 L Creatinine 0.40 L Est GFR ( Amer) > 60 Est GFR (Non-Af Amer) > 60 Glucose 98 Lactic Acid Calcium 7.0 L* Ionized Calcium Ney Magnesium 1.8 Total Bilirubin AST ALT Alkaline Phosphatase Total Protein Albumin 11/07/18 11/07/18 11/07/18 08:10 09:57 17:05 Creatine Kinase 89 CK-MB (CK-2) Troponin I Cancelled < 0.012 NT-Pro-B Natriuret Pep Cancelled 172 H 11/07/18 11/07/18 11/07/18 17:05 23:02 23:02 Creatine Kinase 104 CK-MB (CK-2) 0.89 0.92 Troponin I < 0.012 < 0.012 NT-Pro-B Natriuret Pep 11/08/18 11/08/18 05:00 05:00 Creatine Kinase 73 CK-MB (CK-2) 0.68 Troponin I < 0.012 NT-Pro-B Natriuret Pep Impressions: Abdomen/Pelvis CT 11/07/18 10:58 IMPRESSION: 1. There is severe thickening of the terminal ileum, cecum, and proximal transverse colon, consistent with nonspecific infectious or inflammatory colitis. This pattern of inflammation may be seen in inflammatory bowel disease such as Crohn's disease. Correlate for appropriate history of clinical signs and symptoms if present. 2. Hepatomegaly and severe hepatic steatosis. 3. Status post Shanthi-en-Y gastric bypass. 4. Multifocal bilateral geographic ground-glass pulmonary opacity in the inclu ded bilateral lung bases, an unusual pattern that can be seen in atypical infection as well as inflammatory pneumonitis such as organizing pneumonia. Chest/Abdomen CTA 11/09/18 09:21 IMPRESSION: 1. Ground-glass opacities and bilateral effusions. Similar appearance to Marjorie study, suspect recurrent pulmonary edema. Superimposed consolidation most notable in the left upper lobe. This may reflect pneumonia. 2. No pulmonary embolus. Chest X-Ray 11/10/18 00:00 IMPRESSION: Left upper lobe pneumonia. Follow-up recommended. copyright 2010 [employer]- All Rights Reserved Assessment & Plan - Diagnosis (1) Gram negative septic shock Is this a current diagnosis for this admission?: Yes Plan: Patient is receiving the 1 dose of gentamicin Continues the vancomycin and some other antibiotic May be considered to continue to gentamicin (2) Colitis Is this a current diagnosis for this admission?: Yes Plan: We asked the surgery to further evaluate Continues to IV Levaquin and Flagyl (3) Anemia Qualifiers: Anemia type: unspecified type Qualified Code(s): D64.9 - Anemia, unspecified Is this a current diagnosis for this admission?: Yes (4) Hypotension (arterial) Qualifiers: Hypotension type: unspecified hypotension type Qualified Code(s): I95.9 - Hypotension, unspecified Is this a current diagnosis for this admission?: Yes Plan: 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 as per discussed with the cardiology we will start the patient on hydrocortisone and Florinef Check the cortisol level (5) Sacral decubitus ulcer, stage II Is this a current diagnosis for this admission?: Yes (6) Multifocal pneumonia Is this a current diagnosis for this admission?: Yes Plan: Continues IV antibiotic (7) Status post gastric bypass for obesity Is this a current diagnosis for this admission?: Yes (8) Hypoalbuminemia Is this a current diagnosis for this admission?: Yes Plan: Placed the albumin today We will consult the cardiology for the tachycardia and hypotension 2D echocardiogram - Time Time Spent with patient: 25-34 minutes Medications reviewed and adjusted accordingly: Yes Within: Other - Plan Summary Plan Summary: Patient is currently in the respiratory failure With the hypoxic respiratory failure as per discussed with the Dr. Mcarthur intubate the patient Discussed with the patient Patient with poor prognosis Spent more than 30 minutes in ICU with some coordinate care
[2018-11-10] MEDS: PROPOFOL 1,000 MG/100 ML INFUS..BTL IV PRN ×2 (19:00→22:30)
[2018-11-10] MEDS: DEXTROSE 5%-WATER 250 ML with PHENYLEPHRINE HCL 40 MG IV PRN ×4 (19:00→22:30)
--- NOTE | 2018-11-10 20:38 | RADIOLOGY REPORT (SQ) ---
EXAM DESCRIPTION: CHEST SINGLE VIEW COMPLETED DATE/TIME: 11/10/2018 8:19 pm REASON FOR STUDY: INTUBATION/OG TUBE INSERTION COMPARISON: Earlier exam same date NUMBER OF VIEWS: One view. TECHNIQUE: Single frontal radiographic image of the chest acquired. LIMITATIONS: None. FINDINGS: LUNGS AND PLEURA: Increased interstitial prominence. No significant effusion. MEDIASTINUM AND HILAR STRUCTURES: Stable heart size and mediastinal structures. HEART AND VASCULAR STRUCTURES: Stable appearance. ENDOTRACHEAL TUBE: Appropriate location, tip 4 cm above the level of the luis alberto. BONES: No acute findings. HARDWARE: Right IJ central venous catheter, stable. NG tube side port is below the GE junction. OTHER: No other significant finding. IMPRESSION: ETT POSITION APPROPRIATE.Increased interstitial prominence. No significant effusion. TECHNICAL DOCUMENTATION: JOB ID: [id number] [id number] 2010 [employer]- All Rights Reserved Reading location - IP/workstation name: [employer]
[2018-11-10 20:44] LABS: ARTERIAL BLOOD BASE EXCESS -2.8 mmol/L; ARTERIAL BLOOD FIO2 50%; ARTERIAL BLOOD HCO3 20.5 mmol/L (20-24); ARTERIAL BLOOD O2 SATURATION 89.9 % (94-98); ARTERIAL BLOOD PCO2 29.9 mmHg (35-45); ARTERIAL BLOOD PH 7.45 (7.35-7.45); ARTERIAL BLOOD PO2 53.6 mmHg (80-100); ARTERIAL BLOOD TOTAL CO2 21.4 mmol/L (21-25)
[2018-11-10] MEDS: MIDAZOLAM HCL 50 MG/100 ML RTUINJ IV PRN (21:38)
[2018-11-10] MEDS: FLUDROCORTISONE ACETATE 0.1 MG TABLET PO SCH (23:14)
[2018-11-11] MEDS: IPRATROPIUM/ALBUTEROL 0.5-2.5 MG/3 ML AMPUL NEB SCH ×4 (02:12→20:25)
[2018-11-11] MEDS: PROPOFOL 1,000 MG/100 ML INFUS..BTL IV PRN ×5 (04:00→21:28)
[2018-11-11] MEDS: MIDAZOLAM HCL 50 MG/100 ML RTUINJ IV PRN ×3 (05:00→21:28)
[2018-11-11] MEDS: METRONIDAZOLE 500 MG/NS RTU 500 MG/100 ML RTUPB IV SCH ×4 (05:02→23:10)
[2018-11-11] MEDS: VANCOMYCIN HCL 1,000 MG in DEXTROSE 5%-WATER 250 ML IV SCH ×3 (05:02→21:10)
[2018-11-11] MEDS: FUROSEMIDE INJ/PF 20 MG/2 ML SDV IV SCH ×2 (05:03→17:58)
[2018-11-11] MEDS: HYDROCORTISONE SOD SUCCINATE INJ/PF 100 MG/2 ML SDV IV SCH ×4 (05:03→23:10)
[2018-11-11] MEDS: LEVOTHYROXINE SODIUM 0.088 MG TABLET PO SCH (05:03)
[2018-11-11] MEDS: LACTOBACILLUS ACIDOPHILUS 250 MG TAB PO SCH ×2 (05:03→17:58)
[2018-11-11] MEDS: HEPARIN SOD (PORCINE) 5,000 UNIT/ML 1 ML SYRINGE SUBCUT SCH ×2 (05:03→14:59)
[2018-11-11] MEDS: DEXTROSE 5%-WATER 250 ML with PHENYLEPHRINE HCL 40 MG IV PRN ×2 (05:39)
[2018-11-11 05:55] LABS: ARTERIAL BLOOD BASE EXCESS -4.7 mmol/L; ARTERIAL BLOOD H2CO3 0.83 mmol/L (1.05-1.35); ARTERIAL BLOOD HCO3 18.5 mmol/L (20-24); ARTERIAL BLOOD O2 SATURATION 99.4 % (94-98); ARTERIAL BLOOD PCO2 27.7 mmHg (35-45); ARTERIAL BLOOD PH 7.44 (7.35-7.45); ARTERIAL BLOOD TOTAL CO2 19.3 mmol/L (21-25); HEMATOCRIT 27.4 % (36.0-47.0); HEMOGLOBIN 9.1 g/dL (12.0-15.5); MEAN CORPUSCULAR HEMOGLOBIN 33.3 pg (27.0-33.4); MEAN CORPUSCULAR HGB CONC 33.2 g/dL (32.0-36.0); MEAN CORPUSCULAR VOLUME 100 fl (80-97); PLATELET COUNT 313 10^3/uL (150-450); RED BLOOD COUNT 2.73 10^6/uL (3.72-5.28); RED CELL DISTRIBUTION WIDTH 16.2 % (11.5-14.0); WHITE BLOOD COUNT 23.3 10^3/uL (4.0-10.5)
[2018-11-11 06:01] LABS: ARTERIAL BLOOD FIO2 50%
[2018-11-11 06:23] LABS: ANION GAP 9 (5-19); BLOOD UREA NITROGEN 4 mg/dL (7-20); CALCIUM 7.2 mg/dL (8.4-10.2); CARBON DIOXIDE 17 mmol/L (22-30); CHLORIDE 101 mmol/L (98-107); GLUCOSE 155 mg/dL (75-110); POTASSIUM 3.7 mmol/L (3.6-5.0); SODIUM 126.6 mmol/L (137-145); TRIGLYCERIDES 108 mg/dL (<150)
[2018-11-11 06:56] LABS: ABSOLUTE LYMPHOCYTES# (MANUAL) 0.7 10^3/uL (0.5-4.7); ABSOLUTE MONOCYTES # (MANUAL) 0.5 10^3/uL (0.1-1.4); ABSOLUTE NEUTROPHILS# (MANUAL) 22.1 10^3/uL (1.7-8.2); BASOPHILS % (MANUAL) 0 % (0-2); EOSINOPHILS % (MANUAL) 0 % (0-6); LYMPHOCYTES % (MANUAL) 3 % (13-45); MONOCYTES % (MANUAL) 2 % (3-13); SEGMENTED NEUTROPHILS % (MAN) 95 % (42-78); TOTAL CELLS COUNTED 100
--- NOTE | 2018-11-11 06:58 | RADIOLOGY REPORT (SQ) ---
EXAM DESCRIPTION: XR CHEST 1 VIEW COMPLETED DATE/TME: 11/11/2018 06:00 CLINICAL HISTORY: 48 years Female, Resp Distress COMPARISON: One day prior. NUMBER OF VIEWS/TECHNIQUE: 1/AP FINDINGS: Mild mixed interstitial and airspace opacity.Adequate appearing endotracheal tube. Likely adequate appearing enteric tube partially obscured. Adequate appearing right subclavian central line. Upper abdominal clips. Normal cardiac silhouette size. No pneumothorax. Stable bony thorax. IMPRESSION: No significant change.
[2018-11-11 07:03] LABS: POLYCHROMASIA 1+; TOXIC GRANULATION SLIGHT; TOXIC VACUOLATION PRESENT
[2018-11-11 07:05] LABS: ANISOCYTOSIS 1+; OVALOCYTES SLIGHT; POIKILOCYTOSIS 1+
[2018-11-11 07:06] LABS: HELMET CELLS SLIGHT; PLATELET COMMENT ADEQUATE; SCHISTOCYTES SLIGHT
[2018-11-11] MEDS: ACETYLCYSTEINE 20% SOLN 800 MG/4 ML VIAL.NEB NEB SCH ×2 (07:52→20:25)
[2018-11-11] MEDS: PANTOPRAZOLE SODIUM 40 MG VIAL IV SCH ×2 (10:32→21:10)
[2018-11-11] MEDS: FLUDROCORTISONE ACETATE 0.1 MG TABLET PO SCH ×2 (10:32→21:32)
[2018-11-11] MEDS: TOPIRAMATE 25 MG TABLET PO SCH ×2 (10:32→17:58)
[2018-11-11] MEDS: SERTRALINE HCL 50 MG TABLET PO SCH (10:32)
--- NOTE | 2018-11-11 12:06 | PDOC PROGRESS REPORT ---
Subjective Progress Note for:: 11/11/18 Subjective:: Patient at this point intubated last night Patient have Two [place]'s disease started on hydrocortisone and the blood pressure is getting better Patient lactic acid is still elevated at the gentamicin Continues to vancomycin's coverage Patient still need a pressor support Discussed with the plan consultant discussed with the plan consultant Await further infectious disease consult input Reason For Visit: SEPSIS, BILATERAL PNEUMONIA, HYPOTENSION, Physical Exam Vital Signs: Temp Pulse Resp BP Pulse Ox 97.7 F 76 20 132/94 H 99 11/11/18 10:11 11/11/18 10:00 11/11/18 10:11 11/11/18 10:11 11/11/18 10:11 Intake & Output 11/10/18 11/11/18 11/12/18 06:59 06:59 06:59 Intake Total 4445 2919 260 Output Total 1535 2210 580 Balance 2910 709 -320 Weight 67.6 kg 64.7 kg Physical Exam: Currently intubated under sedation's General appearance: PRESENT: no acute distress Eye exam: PRESENT: PERRLA Mouth exam: PRESENT: neck supple - Also Respiratory exam: PRESENT: decreased breath sounds Cardiovascular exam: PRESENT: +S1, +S2 GI/Abdominal exam: PRESENT: normal bowel sounds, soft Skin exam: PRESENT: dry Results Laboratory Results: 11/11/18 05:33 11/11/18 05:33 11/10/18 11/10/18 11/10/18 13:45 13:45 13:45 WBC 14.3 H RBC 2.49 L Hgb 8.2 L Hct 25.5 L MCV 103 H MCH 33.0 MCHC 32.2 RDW 16.5 H Plt Count 185 Seg Neutrophils % 89.8 H Lymphocytes % 7.3 L Monocytes % 2.6 L Eosinophils % 0.1 Basophils % 0.2 Absolute Neutrophils 12.8 H Absolute Lymphocytes 1.0 Absolute Monocytes 0.4 Absolute Eosinophils 0.0 Absolute Basophils 0.0 Carbonic Acid HCO3/H2CO3 Ratio ABG pH ABG pCO2 ABG pO2 ABG HCO3 ABG O2 Saturation ABG Base Excess FiO2 Sodium 129.4 L Potassium 4.5 Chloride 106 Carbon Dioxide 21 L Anion Gap 2 L BUN 4 L Creatinine 0.40 L Est GFR ( Amer) > 60 Est GFR (Non-Af Amer) > 60 Glucose 98 Lactic Acid 2.1 Calcium 7.0 L* Magnesium 1.8 Triglycerides 11/10/18 11/10/18 11/11/18 18:15 20:30 05:33 WBC RBC Hgb Hct MCV MCH MCHC RDW Plt Count Seg Neutrophils % Lymphocytes % Monocytes % Eosinophils % Basophils % Absolute Neutrophils Absolute Lymphocytes Absolute Monocytes Absolute Eosinophils Absolute Basophils Carbonic Acid 0.97 L 0.90 L HCO3/H2CO3 Ratio 21:1 22:1 ABG pH 7.44 7.45 ABG pCO2 32.1 L 29.9 L ABG pO2 52.9 L 53.6 L ABG HCO3 21.3 20.5 ABG O2 Saturation 89.1 L 89.9 L ABG Base Excess -2.5 -2.8 FiO2 40% 50% Sodium 126.6 L Potassium 3.7 Chloride 101 Carbon Dioxide 17 L Anion Gap 9 BUN 4 L Creatinine 0.29 L Est GFR ( Amer) > 60 Est GFR (Non-Af Amer) > 60 Glucose 155 H Lactic Acid Calcium 7.2 L Magnesium 1.6 Triglycerides 108 11/11/18 11/11/18 11/11/18 05:33 05:33 05:33 WBC 23.3 H RBC 2.73 L Hgb 9.1 L Hct 27.4 L MCV 100 H MCH 33.3 MCHC 33.2 RDW 16.2 H Plt Count 313 Seg Neutrophils % Not Reportable Lymphocytes % Not Reportable Monocytes % Not Reportable Eosinophils % Not Reportable Basophils % Not Reportable Absolute Neutrophils Not Reportable Absolute Lymphocytes Not Reportable Absolute Monocytes Not Reportable Absolute Eosinophils Not Reportable Absolute Basophils Not Reportable Carbonic Acid 0.83 L HCO3/H2CO3 Ratio 22:1 ABG pH 7.44 ABG pCO2 27.7 L ABG pO2 197.0 H ABG HCO3 18.5 L ABG O2 Saturation 99.4 H ABG Base Excess -4.7 FiO2 50% Sodium Potassium Chloride Carbon Dioxide Anion Gap BUN Creatinine Est GFR ( Amer) Est GFR (Non-Af Amer) Glucose Lactic Acid 2.6 H Calcium Magnesium Triglycerides 11/11/18 09:25 WBC RBC Hgb Hct MCV MCH MCHC RDW Plt Count Seg Neutrophils % Lymphocytes % Monocytes % Eosinophils % Basophils % Absolute Neutrophils Absolute Lymphocytes Absolute Monocytes Absolute Eosinophils Absolute Basophils Carbonic Acid HCO3/H2CO3 Ratio ABG pH ABG pCO2 ABG pO2 ABG HCO3 ABG O2 Saturation ABG Base Excess FiO2 Sodium Potassium Chloride Carbon Dioxide Anion Gap BUN Creatinine Est GFR ( Amer) Est GFR (Non-Af Amer) Glucose Lactic Acid 2.4 H Calcium Magnesium Triglycerides 11/07/18 11/07/18 11/07/18 08:10 09:57 17:05 Creatine Kinase 89 CK-MB (CK-2) Troponin I Cancelled < 0.012 NT-Pro-B Natriuret Pep Cancelled 172 H 11/07/18 11/07/18 11/07/18 17:05 23:02 23:02 Creatine Kinase 104 CK-MB (CK-2) 0.89 0.92 Troponin I < 0.012 < 0.012 NT-Pro-B Natriuret Pep 11/08/18 11/08/18 05:00 05:00 Creatine Kinase 73 CK-MB (CK-2) 0.68 Troponin I < 0.012 NT-Pro-B Natriuret Pep Impressions: Abdomen/Pelvis CT 11/07/18 10:58 IMPRESSION: 1. There is severe thickening of the terminal ileum, cecum, and proximal transverse colon, consistent with nonspecific infectious or inflammatory colitis. This pattern of inflammation may be seen in inflammatory bowel disease such as Crohn's disease. Correlate for appropriate history of clinical signs and symptoms if present. 2. Hepatomegaly and severe hepatic steatosis. 3. Status post Shanthi-en-Y gastric bypass. 4. Multifocal bilateral geographic ground-glass pulmonary opacity in the included bilateral lung bases, an unusual pattern that can be seen in atypical infection as well as inflammatory pneumonitis such as organizing pneumonia. Chest/Abdomen CTA 11/09/18 09:21 IMPRESSION: 1. Ground-glass opacities and bilateral effusions. Similar appea adrien to February study, suspect recurrent pulmonary edema. Superimposed consolidation most notable in the left upper lobe. This may reflect pneumonia. 2. No pulmonary embolus. Chest X-Ray 11/11/18 06:00 IMPRESSION: No significant change. Assessment & Plan - Diagnosis (1) Gram negative septic shock Is this a current diagnosis for this admission?: Yes Plan: Patient still in septic shock will continues the broad-spectrum antibiotic Patient's white count is elevated possible underlying hydrocortisone (2) Colitis Is this a current diagnosis for this admission?: Yes Plan: As per discussed with the Dr. Garcias of the general surgery no need for any surgical interventions (3) Anemia Qualifiers: Anemia type: unspecified type Qualified Code(s): D64.9 - Anemia, unspecified Is this a current diagnosis for this admission?: Yes (4) Hypotension (arterial) Qualifiers: Hypotension type: unspecified hypotension type Qualified Code(s): I95.9 - Hypotension, unspecified Is this a current diagnosis for this admission?: Yes Plan: Patient's blood pressure is better patient with some Joaquim's disease Given continues on hydrocortisone's (5) Sacral decubitus ulcer, stage II Is this a current diagnosis for this admission?: Yes Plan: Discussed with the surgery no need for debridement at this point (6) Multifocal pneumonia Is this a current diagnosis for this admission?: Yes Plan: Continues IV antibiotic (7) Status post gastric bypass for obesity Is this a current diagnosis for this admission?: Yes (8) Hypoalbuminemia Is this a current diagnosis for this admission?: Yes Plan: Placed the albumin today We will consult the cardiology for the tachycardia and hypotension 2D echocardiogram - Time Time Spent with patient: 25-34 minutes Total Critical Time (Minutes): 30 Within: Other - Plan Summary Plan Summary: Patient's sodium level is low Change the D5W to normal saline Repeat the blood work again this afternoon Continues to IV antibiotic Discussed with the patient regarding the patient's current conditions
[2018-11-11] MEDS: POTASSI CL 20 MEQ/NS 1L 1,000 ML IV PRN (12:54)
[2018-11-11] MEDS: LEVOFLOXACIN 500 MG/D5W RTU 500 MG/100 ML RTUPB IV SCH (14:59)
[2018-11-11 16:36] LABS: ABSOLUTE BASOPHILS # (AUTO) 0.1 10^3/uL (0.0-0.2); ABSOLUTE LYMPHOCYTES (AUTO) 0.8 10^3/uL (0.5-4.7); ABSOLUTE MONOCYTES (AUTO) 0.2 10^3/uL (0.1-1.4); ABSOLUTE NEUT (AUTO) 5.8 10^3/uL (1.7-8.2); BASOPHILS % (AUTO) 1.1 % (0-2); LYMPHOCYTES % (AUTO) 11.9 % (13-45); MEAN CORPUSCULAR HGB CONC 33.8 g/dL (32.0-36.0); MEAN CORPUSCULAR VOLUME 101 fl (80-97); MONOCYTES % (AUTO) 2.9 % (3-13); PLATELET COUNT 144 10^3/uL (150-450); RED BLOOD COUNT 2.19 10^6/uL (3.72-5.28); RED CELL DISTRIBUTION WIDTH 15.8 % (11.5-14.0); SEGMENTED NEUTROPHILS % (AUTO) 84.1 % (42-78); TOTAL CELLS COUNTED % (AUTO) 100 %; WHITE BLOOD COUNT 6.9 10^3/uL (4.0-10.5)
[2018-11-11 16:38] LABS: HEMOGLOBIN 7.4 g/dL (12.0-15.5)
[2018-11-11 16:59] LABS: ANION GAP 6 (5-19); BLOOD UREA NITROGEN 5 mg/dL (7-20); CARBON DIOXIDE 18 mmol/L (22-30); CHLORIDE 100 mmol/L (98-107); GLUCOSE 127 mg/dL (75-110); POTASSIUM 3.6 mmol/L (3.6-5.0); SODIUM 124.3 mmol/L (137-145)
[2018-11-11 17:12] LABS: CALCIUM 6.7 mg/dL (8.4-10.2)
[2018-11-11 17:12] LABS: ABSOLUTE LYMPHOCYTES (AUTO) 0.7 10^3/uL (0.5-4.7); ABSOLUTE MONOCYTES (AUTO) 0.2 10^3/uL (0.1-1.4); ABSOLUTE NEUT (AUTO) 5.8 10^3/uL (1.7-8.2); BASOPHILS % (AUTO) 0.4 % (0-2); EOSINOPHILS % (AUTO) 0.1 % (0-6); HEMATOCRIT 21.3 % (36.0-47.0); LYMPHOCYTES % (AUTO) 10.7 % (13-45); MEAN CORPUSCULAR HEMOGLOBIN 33.5 pg (27.0-33.4); MEAN CORPUSCULAR HGB CONC 33.4 g/dL (32.0-36.0); MEAN CORPUSCULAR VOLUME 100 fl (80-97); MONOCYTES % (AUTO) 2.7 % (3-13); PLATELET COUNT 148 10^3/uL (150-450); RED BLOOD COUNT 2.13 10^6/uL (3.72-5.28); RED CELL DISTRIBUTION WIDTH 15.8 % (11.5-14.0); SEGMENTED NEUTROPHILS % (AUTO) 86.1 % (42-78); TOTAL CELLS COUNTED % (AUTO) 100 %; WHITE BLOOD COUNT 6.7 10^3/uL (4.0-10.5)
[2018-11-11 17:14] LABS: HEMOGLOBIN 7.1 g/dL (12.0-15.5)
--- NOTE | 2018-11-11 19:58 | PDOC CONSULTATION ---
Consultation Consult Date: 11/11/18 Attending physician:: PONCE LOWE Consult reason:: I was asked to see the patient because of worsening hyponatremia. History of Present Illness Admission Date/PCP: 11/07/18 14:23 JOHN CANNON MD History of Present Illness: HIL[place] is a 48 year old female with history of Adair's disease/adrenal insufficiency, hypothyroidism, hypertension, diabetes mellitus type 2, who was admitted on 11/07/2018 due to gram-negative septic shock, multifocal pneumonia and colitis. Patient is aggressively being manage for all those conditions here in the ICU. Patient has been giving a lot of IV fluids and her cumulative intake and output balance is about +11 L approximately. She she has respiratory decompensation yesterday and so she ended up being intubated. She is still currently intubated currently. He still being treated with IV antibiotics. She has been on fludrocortisone for her adrenal insufficiency and yesterday hydrocortisone was added. She is been on vasopressors for the hypotension currently just on vasopressin. Her sodium level when she came in was normal at 140.2 but it started to decrease 2 days ago on 11/09 at at 133.9. Today her sodium level most recently was 124.3. She almost has anasarca with severe hypoalbuminemia of 1.4. Serum osmolality done today was 258 and urine osmolality was 466. Her TSH done initially was slightly low but her free T4 was acceptable. Her cortisol level was also more than normal levels. She was started on Lasix last night and so far she has been responding very well with improved urine output. She is also anemic and is currently being transfused. Past Medical History Cardiac Medical History: Reports: Hyperlipidemia, Hypertension-primary Pulmonary Medical History: Reports: Pneumonia Neurological Medical History: Reports: Multiple Sclerosis Endocrine Medical History: Reports: Diabetes Mellitus Type 2, Hypothyroidism, Other - Adair's disease/adrenal insufficiency Malignancy Medical History: Reports: Ovarian Cancer GI Medical History: Reports: Gastroesophageal Reflux Disease Musculoskeltal Medical History: Reports: Arthritis Psychiatric Medical History: Reports: Bipolar Disorder, Depression Past Surgical History Past Surgical History: Reports: Cholecystectomy, Gastric Bypass Surgery, Hysterectomy, Orthopedic Surgery - LLE, left jaw, total left hip arthroplasty on 09/08/2018. Social History Information Source: [facility] Records Smoking Status: Current Every Day Smoker Cigarettes Packs Per Day: 15 Cigars Per Day: 0 Pipes Per Day: 0 Last Time Smoked: 11/06/2018 Frequency of Alcohol Use: Rare Hx Recreational Drug Use: No Drugs: None Hx Prescription Drug Abuse: No Family History Family History: DM, Hypertension Parental Family History Reviewed: Yes Children Family History Reviewed: Yes Sibling(s) Family History Reviewed.: Yes Medication/Allergy Home Medications: Benztropine Mesylate 1 mg PO BID 02/18/18 Biotin 5,000 mcg PO [id number] 02/18/18 Esomeprazole Magnesium [Nexium] 40 mg PO DAILY 02/18/18 Levothyroxine Sodium [Synthroid 0.088 mg Tablet] 0.088 mg PO Q6AM 02/18/18 Lurasidone HCl [Latuda] 40 mg PO BIDBS 02/18/18 Lisinopril [Prinivil 2.5 mg Tablet] 2.5 mg PO DAILY #30 tablet 02/28/18 Sertraline HCl [Zoloft 50 mg Tablet] 100 mg PO DAILY 08/20/18 Aspirin [Ecotrin] 81 mg PO DAILY 09/08/18 Amitriptyline HCl [Elavil 100 mg Tablet] 100 mg PO DAILY 11/07/18 Carvedilol [Coreg 3.125 mg Tablet] 3.125 mg PO Q12 11/07/18 Fludrocortisone Acetate [Florinef 0.1 mg Tablet] 0.1 mg PO DAILY 11/07/18 Furosemide [Lasix 40 mg Tablet] 40 mg PO BID 11/07/18 Gabapentin [Neurontin 300 mg Capsule] 300 mg PO Q8 11/07/18 Meloxicam [Mobic] 7.5 mg PO DAILY 11/07/18 Naloxegol Oxalate [Movantik 25 mg Tablet] 25 mg PO QAM 11/07/18 Ondansetron [Zofran Odt 4 mg Tablet] 2 tab PO Q12 11/07/18 Oxycodone HCl [Oxycodone HCl 10 MG Tablet] 10 mg PO Q4HP PRN 11/07/18 Potassium Chloride 20 meq PO DAILY 11/07/18 Topiramate [Topamax] 25 mg PO QAM 11/07/18 Topiramate [Topamax] 50 mg PO QPM 11/07/18 Allergies/Adverse Reactions: cilastatin [From Primaxin IV] Allergy (Intermediate, Verified 09/08/18 10:48) Facial swelling imipenem [From Primaxin IV] Allergy (Intermediate, Verified 09/08/18 10:48) Facial swelling Penicillins Allergy (Mild, Verified 09/08/18 10:48) Generalized rash Sulfa (Sulfonamide Antibiotics) Allergy (Mild, Verified 09/08/18 10:48) Generalized rash Review of Systems ROS unobtainable: Due to endotracheal tube Physical Exam Vital Signs: Temp Pulse Resp BP Pulse Ox 97.3 F 69 24 H 116/77 96 11/11/18 19:27 11/11/18 18:53 11/11/18 18:53 11/11/18 18:53 11/11/18 18:53 Intake & Output 11/10/18 11/11/18 11/12/18 06:59 06:59 06:59 Intake Total 4445 3269 592 Output Total 1535 2210 1250 Balance 2910 1059 -658 Weight 67.6 kg 64.7 kg Exam: General appearance: Patient is currently intubated and sedated Head exam: PRESENT: atraumatic, normocephalic Eye exam: PRESENT: Eyes are closed Mouth exam: PRESENT: moist, neck supple, tongue midline Neck exam: PRESENT: full ROM. ABSENT: carotid bruit, JVD, lymphadenopathy, thyromegaly Respiratory exam: PRESENT: Diminished to auscultation bilaterally. ABSENT: rales, rhonchi, stridor, wheezes Cardiovascular exam: PRESENT: RRR, +S1, +S2. ABSENT: systolic murmur Pulses: PRESENT: normal radial pulses, normal dorsalis pedis pulses GI/Abdominal exam: PRESENT: normal bowel sounds, soft. ABSENT: guarding, mass, tenderness Rectal exam: Deferred Extremities exam: PRESENT: full ROM. Almost have anasarca with grade 4 bilateral lower extremity pitting edema up to her thighs and hips and significant bilateral upper extremity edema including dependent portions of her body ABSENT: calf tenderness, pedal edema Musculoskeletal: PRESENT: Patient is sedated Neurological exam: [PRESENT: Sedated Psychiatric exam: PRESENT: Cannot be assessed at this time Skin exam: PRESENT: intact, dry, warm. Pale ABSENT: rash Results Laboratory Results: 11/11/18 16:50 11/11/18 16:10 11/10/18 11/11/18 11/11/18 20:30 05:33 05:33 WBC RBC Hgb Hct MCV MCH MCHC RDW Plt Count Seg Neutrophils % Lymphocytes % Monocytes % Eosinophils % Basophils % Absolute Neutrophils Absolute Lymphocytes Absolute Monocytes Absolute Eosinophils Absolute Basophils Carbonic Acid 0.90 L 0.83 L HCO3/H2CO3 Ratio 22:1 22:1 ABG pH 7.45 7.44 ABG pCO2 29.9 L 27.7 L ABG pO2 53.6 L 197.0 H ABG HCO3 20.5 18.5 L ABG O2 Saturation 89.9 L 99.4 H ABG Base Excess -2.8 -4.7 FiO2 50% 50% Sodium 126.6 L Potassium 3.7 Chloride 101 Carbon Dioxide 17 L Anion Gap 9 BUN 4 L Creatinine 0.29 L Est GFR ( Amer) > 60 Est GFR (Non-Af Amer) > 60 Glucose 155 H Serum Osmolality Lactic Acid Calcium 7.2 L Magnesium 1.6 Albumin Triglycerides 108 Urine Osmolality Stool Occult Blood Blood Type Antibody Screen 11/11/18 11/11/18 11/11/18 05:33 05:33 09:25 WBC 23.3 H RBC 2.73 L Hgb 9.1 L Hct 27.4 L MCV 100 H MCH 33.3 MCHC 33.2 RDW 16.2 H Plt Count 313 Seg Neutrophils % Not Reportable Lymphocytes % Not Reportable Monocytes % Not Reportable Eosinophils % Not Reportable Basophils % Not Reportable Absolute Neutrophils Not Reportable Absolute Lymphocytes Not Reportable Absolute Monocytes Not Reportable Absolute Eosinophils Not Reportable Absolute Basophils Not Reportable Carbonic Acid HCO3/H2CO3 Ratio ABG pH ABG pCO2 ABG pO2 ABG HCO3 ABG O2 Saturation ABG Base Excess FiO2 Sodium Potassium Chloride Carbon Dioxide Anion Gap BUN Creatinine Est GFR ( Amer) Est GFR (Non-Af Amer) Glucose Serum Osmolality Lactic Acid 2.6 H 2.4 H Calcium Magnesium Albumin Triglycerides Urine Osmolality Stool Occult Blood Blood Type Antibody Screen 11/11/18 11/11/18 11/11/18 16:10 16:10 16:10 WBC 6.9 RBC 2.19 L Hgb 7.4 L Hct 22.0 L MCV 101 H MCH 34.0 H MCHC 33.8 RDW 15.8 H Plt Count 144 L Seg Neutrophils % 84.1 H Lymphocytes % 11.9 L Monocytes % 2.9 L Eosinophils % 0.0 Basophils % 1.1 Absolute Neutrophils 5.8 Absolute Lymphocytes 0.8 Absolute Monocytes 0.2 Absolute Eosinophils 0.0 Absolute Basophils 0.1 Carbonic Acid HCO3/H2CO3 Ratio ABG pH ABG pCO2 ABG pO2 ABG HCO3 ABG O2 Saturation ABG Base Excess FiO2 Sodium 124.3 L Potassium 3.6 Chloride 100 Carbon Dioxide 18 L Anion Gap 6 BUN 5 L Creatinine 0.30 L Est GFR ( Amer) > 60 Est GFR (Non-Af Amer) > 60 Glucose 127 H Serum Osmolality Lactic Acid 1.3 Calcium 6.7 L* Magnesium 1.6 Albumin Triglycerides Urine Osmolality Stool Occult Blood Blood Type Antibody Screen 11/11/18 11/11/18 11/11/18 16:10 16:10 16:50 WBC 6.7 RBC 2.13 L Hgb 7.1 L Hct 21.3 L MCV 100 H MCH 33.5 H MCHC 33.4 RDW 15.8 H Plt Count 148 L Seg Neutrophils % 86.1 H Lymphocytes % 10.7 L Monocytes % 2.7 L Eosinophils % 0.1 Basophils % 0.4 Absolute Neutrophils 5.8 Absolute Lymphocytes 0.7 Absolute Monocytes 0.2 Absolute Eosinophils 0.0 Absolute Basophils 0.0 Carbonic Acid HCO3/H2CO3 Ratio ABG pH ABG pCO2 ABG pO2 ABG HCO3 ABG O2 Saturation ABG Base Excess FiO2 Sodium Potassium Chloride Carbon Dioxide Anion Gap BUN Creatinine Est GFR ( Amer) Est GFR (Non-Af Amer) Glucose Serum Osmolality 258 L Lactic Acid Calcium Magnesium Albumin 1.4 L Triglycerides Urine Osmolality Stool Occult Blood Blood Type Antibody Screen 11/11/18 11/11/18 11/11/18 16:50 17:20 17:40 WBC RBC Hgb Hct MCV MCH MCHC RDW Plt Count Seg Neutrophils % Lymphocytes % Monocytes % Eosinophils % Basophils % Absolute Neutrophils Absolute Lymphocytes Absolute Monocytes Absolute Eosinophils Absolute Basophils Carbonic Acid HCO3/H2CO3 Ratio ABG pH ABG pCO2 ABG pO2 ABG HCO3 ABG O2 Saturation ABG Base Excess FiO2 Sodium Potassium Chloride Carbon Dioxide Anion Gap BUN Creatinine Est GFR ( Amer) Est GFR (Non-Af Amer) Glucose Serum Osmolality Lactic Acid Calcium Magnesium Albumin Triglycerides Urine Osmolality 466 Stool Occult Blood POSITIVE Blood Type O POSITIVE Antibody Screen NEGATIVE 11/07/18 19:30 Decubitis Ulcer - Sacral Gram Stain - Final 11/07/18 19:30 Decubitis Ulcer - Sacral Wound Culture - Final Escherichia Coli Proteus Mirabilis Staphylococcus Aureus Enterococcus Faecalis(Group D) Skin Gayle 11/07/18 08:30 Catheterized Urine Urine Culture - Final Proteus Mirabilis Enterococcus Faecalis(Group D) 11/07/18 11/07/18 11/07/18 08:10 09:57 17:05 Creatine Kinase 89 CK-MB (CK-2) Troponin I Cancelled < 0.012 NT-Pro-B Natriuret Pep Cancelled 172 H 11/07/18 11/07/18 11/07/18 17:05 23:02 23:02 Creatine Kinase 104 CK-MB (CK-2) 0.89 0.92 Troponin I < 0.012 < 0.012 NT-Pro-B Natriuret Pep 11/08/18 11/08/18 05:00 05:00 Creatine Kinase 73 CK-MB (CK-2) 0.68 Troponin I < 0.012 NT-Pro-B Natriuret Pep Impressions: Abdomen/Pelvis CT 11/07/18 10:58 IMPRESSION: 1. There is severe thickening of the terminal ileum, cecum, and proximal transverse colon, consistent with nonspecific infectious or inflammatory colitis. This pattern of inflammation may be seen in inflammatory bowel disease such as Crohn's disease. Correlate for appropriate history of clinical signs and symptoms if present. 2. Hepatomegaly and severe hepatic steatosis. 3. Status post Shanthi-en-Y gastric bypass. 4. Multifocal bilateral geographic ground-glass pulmonary opacity in the included bilateral lung bases, an unusual pattern that can be seen in atypical infection as well as inflammatory pneumonitis such as organizing pneumonia. Chest/Abdomen CTA 11/09/18 09:21 IMPRESSION: 1. Ground-glass opacities and bilateral effusions. Similar appearance to February study, suspect recurrent pulmonary edema. Superimposed consolidation most notable in the left upper lobe. This may reflect pneumonia. 2. No pulmonary embolus. Chest X-Ray 11/11/18 06:00 IMPRESSION: No significant change. Assessment & Plan - Diagnosis (1) Hyponatremia Is this a current diagnosis for this admission?: Yes Plan: Patient is in severe hypervolemic state with +11 L of fluid balance since admission. Cause is most likely multifactorial which include hypervolemic state, adrenal insufficiency, hypothyroidism, and hypotonic fluids being given to her during this admission. Continue Lasix at the current dose. We will give the patient albumin. Continue to monitor for serial electrolytes. (2) Edema due to hypoalbuminemia Is this a current diagnosis for this admission?: Yes Plan: We will give albumin IV 50 g today. (3) Gram negative septic shock Is this a current diagnosis for this admission?: Yes Plan: Currently on 1 pressor. (4) Anemia Qualifiers: Anemia type: unspecified type Qualified Code(s): D64.9 - Anemia, unspecified Is this a current diagnosis for this admission?: Yes Plan: Being given blood transfusion today. (5) Sacral decubitus ulcer, stage II Is this a current diagnosis for this admission?: Yes (6) Adrenal insufficiency Is this a current diagnosis for this admission?: Yes Plan: Continue fludrocortisone and hydrocortisone. (7) Hypothyroidism Qualifiers: Hypothyroidism type: unspecified Qualified Code(s): E03.9 - Hypothyroidism, unspecified (8) Multifocal pneumonia Is this a current diagnosis for this admission?: Yes (9) Colitis Is this a current diagnosis for this admission?: Yes - Notes Notes: Thank you very much for this consultation. - Time Time Spent: 50 to 70 Minutes
[2018-11-11] MEDS: GENTAMICIN SULFATE 100 MG in DEXTROSE 5%-WATER 100 ML IV SCH (20:19)
[2018-11-11] MEDS: ALBUMIN HUMAN 12.5 GM/50 ML RTUINJ IV SCH ×3 (20:19→23:09)
[2018-11-11 21:43] LABS: ANION GAP 7 (5-19); BLOOD UREA NITROGEN 4 mg/dL (7-20); CARBON DIOXIDE 18 mmol/L (22-30); CHLORIDE 99 mmol/L (98-107); GLUCOSE 119 mg/dL (75-110); POTASSIUM 3.4 mmol/L (3.6-5.0); SODIUM 123.7 mmol/L (137-145)
[2018-11-11 21:58] LABS: CALCIUM 6.5 mg/dL (8.4-10.2)
[2018-11-11] MEDS: OXYCODONE HCL IR 5 MG TABLET PO PRN (22:11)
[2018-11-11] MEDS ORDERED: FUROSEMIDE INJ/PF 20 MG/2 ML SDV ONE (22:31)
[2018-11-11 22:45] LABS: ARTERIAL BLOOD BASE EXCESS -5.9 mmol/L; ARTERIAL BLOOD H2CO3 0.73 mmol/L (1.05-1.35); ARTERIAL BLOOD HCO3 16.9 mmol/L (20-24); ARTERIAL BLOOD O2 SATURATION 94.2 % (94-98); ARTERIAL BLOOD PCO2 24.3 mmHg (35-45); ARTERIAL BLOOD PH 7.46 (7.35-7.45); ARTERIAL BLOOD PO2 64.7 mmHg (80-100); ARTERIAL BLOOD TOTAL CO2 17.7 mmol/L (21-25)
[2018-11-11 22:46] LABS: ARTERIAL BLOOD FIO2 25%
--- NOTE | 2018-11-11 23:06 | RADIOLOGY REPORT (SQ) ---
EXAM DESCRIPTION: XR CHEST 1 VIEW COMPLETED DATE/TME: 11/11/2018 00:00 CLINICAL HISTORY: 48 years Female, Respiratory Distress COMPARISON: Same day. NUMBER OF VIEWS/TECHNIQUE: 1/AP FINDINGS: Moderate mixed airspace and interstitial opacities. Adequate appearing endotracheal tube. Likely adequate appearing enteric tube partially obscured. Adequate appearing right subclavian central line. Normal cardiac silhouette size. No pneumothorax. Stable bony thorax. IMPRESSION: No significant change.
[2018-11-11 23:30] LABS: ABSOLUTE BASOPHILS # (AUTO) 0.1 10^3/uL (0.0-0.2); ABSOLUTE LYMPHOCYTES (AUTO) 0.6 10^3/uL (0.5-4.7); ABSOLUTE MONOCYTES (AUTO) 0.3 10^3/uL (0.1-1.4); ABSOLUTE NEUT (AUTO) 7.2 10^3/uL (1.7-8.2); BASOPHILS % (AUTO) 0.7 % (0-2); EOSINOPHILS % (AUTO) 0.1 % (0-6); HEMATOCRIT 24.2 % (36.0-47.0); HEMOGLOBIN 8.4 g/dL (12.0-15.5); LYMPHOCYTES % (AUTO) 7.7 % (13-45); MEAN CORPUSCULAR HEMOGLOBIN 32.8 pg (27.0-33.4); MEAN CORPUSCULAR HGB CONC 34.5 g/dL (32.0-36.0); MONOCYTES % (AUTO) 3.4 % (3-13); PLATELET COUNT 165 10^3/uL (150-450); RED BLOOD COUNT 2.55 10^6/uL (3.72-5.28); RED CELL DISTRIBUTION WIDTH 18.1 % (11.5-14.0); SEGMENTED NEUTROPHILS % (AUTO) 88.1 % (42-78); TOTAL CELLS COUNTED % (AUTO) 100 %; WHITE BLOOD COUNT 8.2 10^3/uL (4.0-10.5)
[2018-11-11 23:34] LABS: MEAN CORPUSCULAR VOLUME 95 fl (80-97)
[2018-11-12] MEDS: PROPOFOL 1,000 MG/100 ML INFUS..BTL IV PRN ×6 (00:50→23:28)
[2018-11-12] MEDS: ALBUMIN HUMAN 12.5 GM/50 ML RTUINJ IV SCH ×5 (00:50→15:11)
[2018-11-12] MEDS: IPRATROPIUM/ALBUTEROL 0.5-2.5 MG/3 ML AMPUL NEB SCH ×4 (01:18→19:51)
[2018-11-12 05:01] LABS: ARTERIAL BLOOD BASE EXCESS -1.9 mmol/L; ARTERIAL BLOOD H2CO3 0.82 mmol/L (1.05-1.35); ARTERIAL BLOOD HCO3 20.7 mmol/L (20-24); ARTERIAL BLOOD O2 SATURATION 97.8 % (94-98); ARTERIAL BLOOD PCO2 27.3 mmHg (35-45); ARTERIAL BLOOD PO2 94.1 mmHg (80-100); ARTERIAL BLOOD TOTAL CO2 21.6 mmol/L (21-25)
[2018-11-12 05:03] LABS: ABSOLUTE BASOPHILS # (AUTO) 0.1 10^3/uL (0.0-0.2); ABSOLUTE LYMPHOCYTES (AUTO) 0.7 10^3/uL (0.5-4.7); ABSOLUTE MONOCYTES (AUTO) 0.3 10^3/uL (0.1-1.4); ABSOLUTE NEUT (AUTO) 7.8 10^3/uL (1.7-8.2); ARTERIAL BLOOD FIO2 35%; BASOPHILS % (AUTO) 1.3 % (0-2); EOSINOPHILS % (AUTO) 0.1 % (0-6); HEMATOCRIT 23.7 % (36.0-47.0); HEMOGLOBIN 8.1 g/dL (12.0-15.5); LYMPHOCYTES % (AUTO) 7.6 % (13-45); MEAN CORPUSCULAR HEMOGLOBIN 32.6 pg (27.0-33.4); MEAN CORPUSCULAR HGB CONC 34.1 g/dL (32.0-36.0); MEAN CORPUSCULAR VOLUME 96 fl (80-97); MONOCYTES % (AUTO) 3.3 % (3-13); PLATELET COUNT 179 10^3/uL (150-450); RED BLOOD COUNT 2.48 10^6/uL (3.72-5.28); RED CELL DISTRIBUTION WIDTH 18.4 % (11.5-14.0); SEGMENTED NEUTROPHILS % (AUTO) 87.7 % (42-78); TOTAL CELLS COUNTED % (AUTO) 100 %; WHITE BLOOD COUNT 8.9 10^3/uL (4.0-10.5)
[2018-11-12 05:24] LABS: ANION GAP 9 (5-19); BLOOD UREA NITROGEN 6 mg/dL (7-20); CALCIUM 7.1 mg/dL (8.4-10.2); CARBON DIOXIDE 18 mmol/L (22-30); CHLORIDE 98 mmol/L (98-107); GLUCOSE 97 mg/dL (75-110); POTASSIUM 3.1 mmol/L (3.6-5.0); SODIUM 125.1 mmol/L (137-145)
[2018-11-12] MEDS: LEVOTHYROXINE SODIUM 0.088 MG TABLET PO SCH (05:45)
[2018-11-12] MEDS: HYDROCORTISONE SOD SUCCINATE INJ/PF 100 MG/2 ML SDV IV SCH ×4 (05:45→21:17)
[2018-11-12] MEDS: FUROSEMIDE INJ/PF 20 MG/2 ML SDV IV SCH ×2 (05:45→17:24)
[2018-11-12] MEDS: LACTOBACILLUS ACIDOPHILUS 250 MG TAB PO SCH ×2 (05:45→17:24)
[2018-11-12] MEDS: VANCOMYCIN HCL 1,000 MG in DEXTROSE 5%-WATER 250 ML IV SCH ×3 (05:46→21:16)
[2018-11-12] MEDS: METRONIDAZOLE 500 MG/NS RTU 500 MG/100 ML RTUPB IV SCH ×4 (05:46→23:28)
--- NOTE | 2018-11-12 06:27 | RADIOLOGY REPORT (SQ) ---
EXAM DESCRIPTION: XR CHEST 1 VIEW COMPLETED DATE/TME: 11/12/2018 06:00 CLINICAL HISTORY: Respiratory Distress. 48 years Female, sepsis/resp failure COMPARISON: One day prior. NUMBER OF VIEWS/TECHNIQUE: 1/AP FINDINGS: Adequate appearing endotracheal tube. Likely adequate appearing enteric tube partially obscured. Adequate appearing right subclavian central line. Moderate central edema pattern.Normal cardiac silhouette size. No pneumothorax. Stable bony thorax. IMPRESSION: No significant change.
[2018-11-12] MEDS ORDERED: MAGNESIUM SULFATE/D5W 1 GM/100 ML RTUPB IV ONE (06:31)
[2018-11-12] MEDS ORDERED: POTASSI CL 20 MEQ/50 ML RIDER 20 MEQ/50 ML RTUPB IV ONE (06:31)
[2018-11-12] MEDS: ACETYLCYSTEINE 20% SOLN 800 MG/4 ML VIAL.NEB NEB SCH ×2 (07:56→19:51)
[2018-11-12] MEDS: MAGNESIUM SULFATE 1 GM/D5W 100 ML IV SCH ×2 (07:57→07:58)
[2018-11-12] MEDS: POTASSIUM CHLORIDE 20 MEQ/50 ML RTU IV SCH ×2 (07:57→08:14)
[2018-11-12] MEDS: MIDAZOLAM HCL 50 MG/100 ML RTUINJ IV PRN (08:15)
[2018-11-12] MEDS: GENTAMICIN SULFATE 100 MG in DEXTROSE 5%-WATER 100 ML IV SCH (08:15)
[2018-11-12] MEDS: TOPIRAMATE 25 MG TABLET PO SCH ×2 (08:38→18:48)
[2018-11-12] MEDS: PANTOPRAZOLE SODIUM 40 MG VIAL IV SCH ×2 (10:42→21:17)
--- NOTE | 2018-11-12 10:44 | PDOC PROGRESS REPORT ---
Subjective Progress Note for:: 11/10/18 Subjective:: tachypnic Reason For Visit: SEPSIS, BILATERAL PNEUMONIA, HYPOTENSION, Physical Exam Vital Signs: Temp Pulse Resp BP Pulse Ox 98.8 F 94 26 H 122/75 100 11/10/18 07:57 11/10/18 08:11 11/10/18 08:11 11/10/18 07:57 11/10/18 08:11 Intake & Output 11/09/18 11/10/18 11/11/18 06:59 06:59 06:59 Intake Total 4931 4445 395 Output Total 1165 1535 45 Balance 3766 2910 350 Weight 69.8 kg 67.6 kg General appearance: PRESENT: no acute distress, disheveled Head exam: PRESENT: atraumatic, normocephalic Eye exam: PRESENT: conjunctiva pale. ABSENT: nystagmus, scleral icterus Mouth exam: PRESENT: dry mucosa, neck supple, tongue midline, other Neck exam: ABSENT: carotid bruit, JVD, lymphadenopathy, thyromegaly, tracheal deviation, tracheostomy Respiratory exam: PRESENT: decreased breath sounds, prolonged expiratory phas, rales, rhonchi, unlabored. ABSENT: retraction, stridor Cardiovascular exam: PRESENT: RRR, +S1, +S2 Pulses: PRESENT: normal radial pulses GI/Abdominal exam: PRESENT: soft. ABSENT: tenderness Gentrourinary exam: PRESENT: indwelling catheter Extremities exam: PRESENT: pedal edema. ABSENT: calf tenderness, clubbing, joint swelling Musculoskeletal exam: ABSENT: deformity, dislocation Neurological exam: PRESENT: altered, awake Skin exam: PRESENT: dry, warm Results Laboratory Results: 11/10/18 04:30 11/10/18 04:30 11/10/18 11/10/18 11/10/18 04:30 04:30 04:30 WBC 19.4 H RBC 2.78 L Hgb 9.1 L Hct 28.4 L MCV 102 H MCH 32.7 MCHC 31.9 L RDW 16.5 H Plt Count 223 Seg Neutrophils % 91.5 H Lymphocytes % 5.4 L Monocytes % 2.9 L Eosinophils % 0.0 Basophils % 0.2 Absolute Neutrophils 17.7 H Absolute Lymphocytes 1.0 Absolute Monocytes 0.6 Absolute Eosinophils 0.0 Absolute Basophils 0.0 Carbonic Acid 0.99 L HCO3/H2CO3 Ratio 19:1 ABG pH 7.38 ABG pCO2 32.9 L ABG pO2 114.1 H ABG HCO3 19.0 L ABG O2 Saturation 98.1 H ABG Base Excess -5.4 VBG pH VBG pCO2 VBG HCO3 VBG Base Excess FiO2 40% Sodium 131.1 L Potassium 4.2 Chloride 108 H Carbon Dioxide 21 L Anion Gap 3 L BUN 4 L Creatinine 0.36 L Est GFR ( Amer) > 60 Est GFR (Non-Af Amer) > 60 Glucose 118 H Calcium 7.0 L* Ionized Calcium Ney Magnesium 1.8 Total Bilirubin 0.3 AST 33 ALT 36 Alkaline Phosphatase 227 H Total Protein 3.4 L Albumin 1.3 L 11/10/18 11/10/18 06:30 06:30 WBC RBC Hgb Hct MCV MCH MCHC RDW Plt Count Seg Neutrophils % Lymphocytes % Monocytes % Eosinophils % Basophils % Absolute Neutrophils Absolute Lymphocytes Absolute Monocytes Absolute Eosinophils Absolute Basophils Carbonic Acid HCO3/H2CO3 Ratio ABG pH ABG pCO2 ABG pO2 ABG HCO3 ABG O2 Saturation ABG Base Excess VBG pH 7.36 VBG pCO2 35.3 VBG HCO3 19.5 L VBG Base Excess -5.4 FiO2 Sodium Potassium Chloride Carbon Dioxide Anion Gap BUN Creatinine Est GFR ( Amer) Est GFR (Non-Af Amer) Glucose Calcium Ionized Calcium Ney 1.06 L Magnesium Total Bilirubin AST ALT Alkaline Phosphatase Total Protein Albumin 11/07/18 11/07/18 11/07/18 08:10 09:57 17:05 Creatine Kinase 89 CK-MB (CK-2) Troponin I Cancelled < 0.012 NT-Pro-B Natriuret Pep Cancelled 172 H 11/07/18 11/07/18 11/07/18 17:05 23:02 23:02 Creatine Kinase 104 CK-MB (CK-2) 0.89 0.92 Troponin I < 0.012 < 0.012 NT-Pro-B Natriuret Pep 11/08/18 11/08/18 05:00 05:00 Creatine Kinase 73 CK-MB (CK-2) 0.68 Troponin I < 0.012 NT-Pro-B Natriuret Pep Impressions: Abdomen/Pelvis CT 11/07/18 10:58 IMPRESSION: 1. There is severe thickening of the terminal ileum, cecum, and proximal transverse colon, consistent with nonspecific infectious or inflammatory colitis. This pattern of inflammation may be seen in inflammatory bowel disease such as Crohn's disease. Correlate for appropriate history of clinical signs and symptoms if present. 2. Hepatomegaly and severe hepatic steatosis. 3. Status post Shanthi-en-Y gastric bypass. 4. Multifocal bilateral geographic ground-glass pulmonary opacity in the included bilateral lung bases, an unusual pattern that can be seen in atypical infection as well as inflammatory pneumonitis such as organizing pneumonia. Chest/Abdomen CTA 11/09/18 09:21 IMPRESSION: 1. Ground-glass opacities and bilateral effusions. Similar appearance to February study, suspect recurrent pulmonary edema. Superimposed consolidation most notable in the left upper lobe. This may reflect pneumonia. 2. No pulmonary embolus. Chest X-Ray 11/10/18 00:00 IMPRESSION: Left upper lobe pneumonia. Follow-up recommended. copyright 2010 [employer]- All Rights Reserved Assessment & Plan - Diagnosis (1) Gram negative septic shock Is this a current diagnosis for this admission?: Yes Plan: As per cultures Labs- All tests 24 hr 11/08/18 11/09/18 16:30 06:40 WBC 24.0 H 18.0 H Generic Name Dose Route Start Last Admin Trade Name Freq PRN Reason Stop Dose Admin Norepinephrine Bitartrate 4 mg 250 mls @ 0 mls/hr 11/09/18 22:10 11/10/18 14:00 / Dextrose IV 12/09/18 22:09 0 mls/hr CONTINUOUS PRN 0 mcg/min THIS MED IS NOT "PRN" Protocol Titrate Vasopressin 100 unit/ Dextrose 250 mls @ 0 mls/hr 11/08/18 15:10 11/10/18 09:03 IV 12/08/18 15:09 4.5 mls/hr CONTINUOUS PRN 0.03 unit/min THIS MED IS NOT "PRN" Protocol Titrate (2) Diabetes mellitus type 2 in obese Is this a current diagnosis for this admission?: Yes Plan: Sliding scale insulin (3) Malnutrition Is this a current diagnosis for this admission?: Yes Plan: TPN versus interval protein feedings - Time Total Critical Time (Minutes): 40
--- NOTE | 2018-11-12 10:48 | PDOC PROGRESS REPORT ---
Subjective Progress Note for:: 11/11/18 Subjective:: Intubated and sedated Reason For Visit: SEPSIS, BILATERAL PNEUMONIA, HYPOTENSION, Physical Exam Vital Signs: Temp Pulse Resp BP Pulse Ox 97.7 F 76 20 132/94 H 99 11/11/18 10:11 11/11/18 10:00 11/11/18 10:11 11/11/18 10:11 11/11/18 10:11 Intake & Output 11/10/18 11/11/18 11/12/18 06:59 06:59 06:59 Intake Total 4445 2919 252 Output Total 1535 2210 580 Balance 2910 709 -661 Weight 67.6 kg 64.7 kg General appearance: PRESENT: no acute distress, disheveled, well-developed, well-nourished Head exam: PRESENT: atraumatic, normocephalic Eye exam: PRESENT: conjunctiva pale. ABSENT: nystagmus, scleral icterus Mouth exam: PRESENT: dry mucosa, neck supple, tongue midline, other - ET tube Neck exam: ABSENT: carotid bruit, JVD, lymphadenopathy, thyromegaly, tracheal deviation, tracheostomy Respiratory exam: PRESENT: decreased breath sounds, prolonged expiratory phas, rales, rhonchi, symmetrical, tachypnea, unlabored. ABSENT: retraction, stridor Cardiovascular exam: PRESENT: RRR, +S1, +S2 Pulses: PRESENT: normal radial pulses GI/Abdominal exam: PRESENT: soft. ABSENT: tenderness Gentrourinary exam: PRESENT: indwelling catheter Extremities exam: PRESENT: pedal edema. ABSENT: calf tenderness, clubbing, joint swelling Musculoskeletal exam: ABSENT: deformity, dislocation Neurological exam: ABSENT: awake Skin exam: PRESENT: dry, warm Results Laboratory Results: 11/11/18 05:33 11/11/18 05:33 11/10/18 11/10/18 11/10/18 13:45 13:45 13:45 WBC 14.3 H RBC 2.49 L Hgb 8.2 L Hct 25.5 L MCV 103 H MCH 33.0 MCHC 32.2 RDW 16.5 H Plt Count 185 Seg Neutrophils % 89.8 H Lymphocytes % 7.3 L Monocytes % 2.6 L Eosinophils % 0.1 Basophils % 0.2 Absolute Neutrophils 12.8 H Absolute Lymphocytes 1.0 Absolute Monocytes 0.4 Absolute Eosinophils 0.0 Absolute Basophils 0.0 Carbonic Acid HCO3/H2CO3 Ratio ABG pH ABG pCO2 ABG pO2 ABG HCO3 ABG O2 Saturation ABG Base Excess FiO2 Sodium 129.4 L Potassium 4.5 Chloride 106 Carbon Dioxide 21 L Anion Gap 2 L BUN 4 L Creatinine 0.40 L Est GFR ( Amer) > 60 Est GFR (Non-Af Amer) > 60 Glucose 98 Lactic Acid 2.1 Calcium 7.0 L* Magnesium 1.8 Triglycerides 11/10/18 11/10/18 11/11/18 18:15 20:30 05:33 WBC RBC Hgb Hct MCV MCH MCHC RDW Plt Count Seg Neutrophils % Lymphocytes % Monocytes % Eosinophils % Basophils % Absolute Neutrophils Absolute Lymphocytes Absolute Monocytes Absolute Eosinophils Absolute Basophils Carbonic Acid 0.97 L 0.90 L HCO3/H2CO3 Ratio 21:1 22:1 ABG pH 7.44 7.45 ABG pCO2 32.1 L 29.9 L ABG pO2 52.9 L 53.6 L ABG HCO3 21.3 20.5 ABG O2 Saturation 89.1 L 89.9 L ABG Base Excess -2.5 -2.8 FiO2 40% 50% Sodium 126.6 L Potassium 3.7 Chloride 101 Carbon Dioxide 17 L Anion Gap 9 BUN 4 L Creatinine 0.29 L Est GFR ( Amer) > 60 Est GFR (Non-Af Amer) > 60 Glucose 155 H Lactic Acid Calcium 7.2 L Magnesium 1.6 Triglycerides 108 11/11/18 11/11/18 11/11/18 05:33 05:33 05:33 WBC 23.3 H RBC 2.73 L Hgb 9.1 L Hct 27.4 L MCV 100 H MCH 33.3 MCHC 33.2 RDW 16.2 H Plt Count 313 Seg Neutrophils % Not Reportable Lymphocytes % Not Reportable Monocytes % Not Reportable Eosinophils % Not Reportable Basophils % Not Reportable Absolute Neutrophils Not Reportable Absolute Lymphocytes Not Reportable Absolute Monocytes Not Reportable Absolute Eosinophils Not Reportable Absolute Basophils Not Reportable Carbonic Acid 0.83 L HCO3/H2CO3 Ratio 22:1 ABG pH 7.44 ABG pCO2 27.7 L ABG pO2 197.0 H ABG HCO3 18.5 L ABG O2 Saturation 99.4 H ABG Base Excess -4.7 FiO2 50% Sodium Potassium Chloride Carbon Dioxide Anion Gap BUN Creatinine Est GFR ( Amer) Est GFR (Non-Af Amer) Glucose Lactic Acid 2.6 H Calcium Magnesium Triglycerides 11/11/18 09:25 WBC RBC Hgb Hct MCV MCH MCHC RDW Plt Count Seg Neutrophils % Lymphocytes % Monocytes % Eosinophils % Basophils % Absolute Neutrophils Absolute Lymphocytes Absolute Monocytes Absolute Eosinophils Absolute Basophils Carbonic Acid HCO3/H2CO3 Ratio ABG pH ABG pCO2 ABG pO2 ABG HCO3 ABG O2 Saturation ABG Base Excess FiO2 Sodium Potassium Chloride Carbon Dioxide Anion Gap BUN Creatinine Est GFR ( Amer) Est GFR (Non-Af Amer) Glucose Lactic Acid 2.4 H Calcium Magnesium Triglycerides 11/07/18 11/07/18 11/07/18 08:10 09:57 17:05 Creatine Kinase 89 CK-MB (CK-2) Troponin I Cancelled < 0.012 NT-Pro-B Natriuret Pep Cancelled 172 H 11/07/18 11/07/18 11/07/18 17:05 23:02 23:02 Creatine Kinase 104 CK-MB (CK-2) 0.89 0.92 Troponin I < 0.012 < 0.012 NT-Pro-B Natriuret Pep 11/08/18 11/08/18 05:00 05:00 Creatine Kinase 73 CK-MB (CK-2) 0.68 Troponin I < 0.012 NT-Pro-B Natriuret Pep Impressions: Abdomen/Pelvis CT 11/07/18 10:58 IMPRESSION: 1. There is severe thickening of the terminal ileum, cecum, and proximal transverse colon, consistent with nonspecific infectious or inflammatory colitis. This pattern of inflammation may be seen in inflammatory bowel disease such as Crohn's disease. Correlate for appropriate history of clinical signs and symptoms if present. 2. Hepatomegaly and severe hepatic steatosis. 3. Status post Shanthi-en-Y gastric bypass. 4. Multifocal bilateral geographic ground-glass pulmonary opacity in the included bilateral lung bases, an unusual pattern that can be seen in atypical infection as well as inflammatory pneumonitis such as organizing pneumonia. Chest/Abdomen CTA 11/09/18 09:21 IMPRESSION: 1. Ground-glass opacities and bilateral effusions. Similar appe arance to February study, suspect recurrent pulmonary edema. Superimposed consolidation most notable in the left upper lobe. This may reflect pneumonia. 2. No pulmonary embolus. Chest X-Ray 01/01/19 06:00 IMPRESSION: No significant change. Assessment & Plan - Diagnosis (1) Gram negative septic shock Is this a current diagnosis for this admission?: Yes (2) Diabetes mellitus type 2 in obese Is this a current diagnosis for this admission?: Yes (3) Malnutrition Is this a current diagnosis for this admission?: Yes (4) Acute respiratory failure with hypoxia Is this a current diagnosis for this admission?: Yes Plan: Good oxygenation and ventilation patient remains tachypneic and self-induced respiratory alkalosis (5) Adrenal insufficiency Is this a current diagnosis for this admission?: Yes Plan: Mineralocorticoid glucocorticoid - Time Total Critical Time (Minutes): 40
[2018-11-12] MEDS: SERTRALINE HCL 50 MG TABLET PO SCH (10:49)
--- NOTE | 2018-11-12 10:51 | PDOC PROGRESS REPORT ---
Subjective Progress Note for:: 11/12/18 Subjective:: Intubated and sedated Reason For Visit: SEPSIS, BILATERAL PNEUMONIA, HYPOTENSION, Physical Exam Vital Signs: Temp Pulse Resp BP Pulse Ox 98.6 F 95 22 H 117/75 97 11/12/18 08:00 11/12/18 08:00 11/12/18 08:00 11/12/18 08:00 11/12/18 08:00 Intake & Output 11/11/18 11/12/18 11/13/18 06:59 06:59 06:59 Intake Total 3269 2388 Output Total 2210 2180 60 Balance 1059 208 -60 Weight 64.7 kg 68.3 kg General appearance: PRESENT: no acute distress, disheveled, well-developed, well-nourished Head exam: PRESENT: atraumatic, normocephalic Eye exam: PRESENT: conjunctiva pale. ABSENT: nystagmus, scleral icterus Mouth exam: PRESENT: dry mucosa, neck supple, tongue midline, other - Endotracheal tube in place Neck exam: ABSENT: carotid bruit, JVD, lymphadenopathy, thyromegaly, tracheal deviation, tracheostomy Respiratory exam: PRESENT: decreased breath sounds, prolonged expiratory phas, r ales, rhonchi, tachypnea. ABSENT: retraction Cardiovascular exam: PRESENT: RRR, +S1, +S2 Pulses: PRESENT: normal radial pulses GI/Abdominal exam: PRESENT: soft. ABSENT: tenderness Gentrourinary exam: PRESENT: indwelling catheter Extremities exam: PRESENT: pedal edema. ABSENT: calf tenderness, clubbing, joint swelling Musculoskeletal exam: ABSENT: deformity, dislocation Neurological exam: ABSENT: awake Skin exam: PRESENT: dry, warm Results Laboratory Results: 11/12/18 04:52 11/12/18 04:52 11/11/18 11/11/18 11/11/18 09:25 16:10 16:10 WBC 6.9 RBC 2.19 L Hgb 7.4 L Hct 22.0 L MCV 101 H MCH 34.0 H MCHC 33.8 RDW 15.8 H Plt Count 144 L Seg Neutrophils % 84.1 H Lymphocytes % 11.9 L Monocytes % 2.9 L Eosinophils % 0.0 Basophils % 1.1 Absolute Neutrophils 5.8 Absolute Lymphocytes 0.8 Absolute Monocytes 0.2 Absolute Eosinophils 0.0 Absolute Basophils 0.1 Carbonic Acid HCO3/H2CO3 Ratio ABG pH ABG pCO2 ABG pO2 ABG HCO3 ABG O2 Saturation ABG Base Excess FiO2 Sodium 124.3 L Potassium 3.6 Chloride 100 Carbon Dioxide 18 L Anion Gap 6 BUN 5 L Creatinine 0.30 L Est GFR ( Amer) > 60 Est GFR (Non-Af Amer) > 60 Glucose 127 H Serum Osmolality Lactic Acid 2.4 H Calcium 6.7 L* Magnesium 1.6 Albumin Urine Osmolality Stool Occult Blood Blood Type Antibody Screen 11/11/18 11/11/18 11/11/18 16:10 16:10 16:10 WBC RBC Hgb Hct MCV MCH MCHC RDW Plt Count Seg Neutrophils % Lymphocytes % Monocytes % Eosinophils % Basophils % Absolute Neutrophils Absolute Lymphocytes Absolute Monocytes Absolute Eosinophils Absolute Basophils Carbonic Acid HCO3/H2CO3 Ratio ABG pH ABG pCO2 ABG pO2 ABG HCO3 ABG O2 Saturation ABG Base Excess FiO2 Sodium Potassium Chloride Carbon Dioxide Anion Gap BUN Creatinine Est GFR ( Amer) Est GFR (Non-Af Amer) Glucose Serum Osmolality 258 L Lactic Acid 1.3 Calcium Magnesium Albumin 1.4 L Urine Osmolality Stool Occult Blood Blood Type Antibody Screen 11/11/18 11/11/18 11/11/18 16:50 16:50 17:20 WBC 6.7 RBC 2.13 L Hgb 7.1 L Hct 21.3 L MCV 100 H MCH 33.5 H MCHC 33.4 RDW 15.8 H Plt Count 148 L Seg Neutrophils % 86.1 H Lymphocytes % 10.7 L Monocytes % 2.7 L Eosinophils % 0.1 Basophils % 0.4 Absolute Neutrophils 5.8 Absolute Lymphocytes 0.7 Absolute Monocytes 0.2 Absolute Eosinophils 0.0 Absolute Basophils 0.0 Carbonic Acid HCO3/H2CO3 Ratio ABG pH ABG pCO2 ABG pO2 ABG HCO3 ABG O2 Saturation ABG Base Excess FiO2 Sodium Potassium Chloride Carbon Dioxide Anion Gap BUN Creatinine Est GFR ( Amer) Est GFR (Non-Af Amer) Glucose Serum Osmolality Lactic Acid Calcium Magnesium Albumin Urine Osmolality Stool Occult Blood POSITIVE Blood Type O POSITIVE Antibody Screen NEGATIVE 11/11/18 11/11/18 11/11/18 17:40 21:17 21:17 WBC RBC Hgb Hct MCV MCH MCHC RDW Plt Count Seg Neutrophils % Lymphocytes % Monocytes % Eosinophils % Basophils % Absolute Neutrophils Absolute Lymphocytes Absolute Monocytes Absolute Eosinophils Absolute Basophils Carbonic Acid HCO3/H2CO3 Ratio ABG pH ABG pCO2 ABG pO2 ABG HCO3 ABG O2 Saturation ABG Base Excess FiO2 Sodium 123.7 L Potassium 3.4 L Chloride 99 Carbon Dioxide 18 L Anion Gap 7 BUN 4 L Creatinine 0.35 L Est GFR ( Amer) > 60 Est GFR (Non-Af Amer) > 60 Glucose 119 H Serum Osmolality Lactic Acid Calcium 6.5 L* Magnesium Albumin 1.8 L Urine Osmolality 466 Stool Occult Blood Blood Type Antibody Screen 11/11/18 11/11/18 11/12/18 22:30 23:15 04:52 WBC 8.2 RBC 2.55 L Hgb 8.4 L Hct 24.2 L MCV 95 D MCH 32.8 MCHC 34.5 RDW 18.1 H Plt Count 165 Seg Neutrophils % 88.1 H Lymphocytes % 7.7 L Monocytes % 3.4 Eosinophils % 0.1 Basophils % 0.7 Absolute Neutrophils 7.2 Absolute Lymphocytes 0.6 Absolute Monocytes 0.3 Absolute Eosinophils 0.0 Absolute Basophils 0.1 Carbonic Acid 0.73 L HCO3/H2CO3 Ratio 23:1 ABG pH 7.46 H ABG pCO2 24.3 L ABG pO2 64.7 L ABG HCO3 16.9 L ABG O2 Saturation 94.2 ABG Base Excess -5.9 FiO2 25% Sodium 125.1 L Potassium 3.1 L Chloride 98 Carbon Dioxide 18 L Anion Gap 9 BUN 6 L Creatinine 0.33 L Est GFR ( Amer) > 60 Est GFR (Non-Af Amer) > 60 Glucose 97 Serum Osmolality Lactic Acid Calcium 7.1 L Magnesium 1.5 L Albumin Urine Osmolality Stool Occult Blood Blood Type Antibody Screen 11/12/18 11/12/18 11/12/18 04:52 04:52 04:52 WBC 8.9 RBC 2.48 L Hgb 8.1 L Hct 23.7 L MCV 96 MCH 32.6 MCHC 34.1 RDW 18.4 H Plt Count 179 Seg Neutrophils % 87.7 H Lymphocytes % 7.6 L Monocytes % 3.3 Eosinophils % 0.1 Basophils % 1.3 Absolute Neutrophils 7.8 Absolute Lymphocytes 0.7 Absolute Monocytes 0.3 Absolute Eosinophils 0.0 Absolute Basophils 0.1 Carbonic Acid 0.82 L HCO3/H2CO3 Ratio 25:1 ABG pH 7.50 H ABG pCO2 27.3 L ABG pO2 94.1 ABG HCO3 20.7 ABG O2 Saturation 97.8 ABG Base Excess -1.9 FiO2 35% Sodium Potassium Chloride Carbon Dioxide Anion Gap BUN Creatinine Est GFR ( Amer) Est GFR (Non-Af Amer) Glucose Serum Osmolality Lactic Acid 0.8 Calcium Magnesium Albumin Urine Osmolality Stool Occult Blood Blood Type Antibody Screen 11/07/18 08:10 Blood Blood Culture - Final NO GROWTH IN 5 DAYS 11/07/18 19:30 Decubitis Ulcer - Sacral Gram Stain - Final 11/07/18 19:30 Decubitis Ulcer - Sacral Wound Culture - Final Escherichia Coli Proteus Mirabilis Staphylococcus Aureus Enterococcus Faecalis(Group D) Skin Gayle 11/07/18 08:30 Catheterized Urine Urine Culture - Final Proteus Mirabilis Enterococcus Faecalis(Group D) 11/07/18 11/07/18 11/07/18 08:10 09:57 17:05 Creatine Kinase 89 CK-MB (CK-2) Troponin I Cancelled < 0.012 NT-Pro-B Natriuret Pep Cancelled 172 H 11/07/18 11/07/18 11/07/18 17:05 23:02 23:02 Creatine Kinase 104 CK-MB (CK-2) 0.89 0.92 Troponin I < 0.012 < 0.012 NT-Pro-B Natriuret Pep 11/08/18 11/08/18 05:00 05:00 Creatine Kinase 73 CK-MB (CK-2) 0.68 Troponin I < 0.012 NT-Pro-B Natriuret Pep Impressions: Abdomen/Pelvis CT 11/07/18 10:58 IMPRESSION: 1. There is severe thickening of the terminal ileum, cecum, and proximal transverse colon, consistent with nonspecific infectious or inflammator y colitis. This pattern of inflammation may be seen in inflammatory bowel disease such as Crohn's disease. Correlate for appropriate history of clinical signs and symptoms if present. 2. Hepatomegaly and severe hepatic steatosis. 3. Status post Shanthi-en-Y gastric bypass. 4. Multifocal bilateral geographic ground-glass pulmonary opacity in the included bilateral lung bases, an unusual pattern that can be seen in atypical infection as well as inflammatory pneumonitis such as organizing pneumonia. Chest/Abdomen CTA 11/09/18 09:21 IMPRESSION: 1. Ground-glass opacities and bilateral effusions. Similar appearance to February study, suspect recurrent pulmonary edema. Superimposed consolidation most notable in the left upper lobe. This may reflect pneumonia. 2. No pulmonary embolus. Chest X-Ray 11/12/18 06:00 IMPRESSION: No significant change. Assessment & Plan - Diagnosis (1) Gram negative septic shock Is this a current diagnosis for this admission?: Yes Plan: As per cultures Labs- All tests 24 hr 11/08/18 11/09/18 16:30 06:40 WBC 24.0 H 18.0 H Generic Name Dose Route Start Last Admin Trade Name Freq PRN Reason Stop Dose Admin Norepinephrine Bitartrate 4 mg 250 mls @ 0 mls/hr 11/09/18 22:10 11/10/18 14:00 / Dextrose IV 12/09/18 22:09 0 mls/hr CONTINUOUS PRN 0 mcg/min THIS MED IS NOT "PRN" Protocol Titrate Vasopressin 100 unit/ Dextrose 250 mls @ 0 mls/hr 11/08/18 15:10 11/10/18 09:03 IV 12/08/18 15:09 4.5 mls/hr CONTINUOUS PRN 0.03 unit/min THIS MED IS NOT "PRN" Protocol Titrate (2) Diabetes mellitus type 2 in obese Is this a current diagnosis for this admission?: Yes Plan: Sliding scale insulin (3) Malnutrition Is this a current diagnosis for this admission?: Yes Plan: TPN versus interval protein feedings - Time Total Critical Time (Minutes): 40
[2018-11-12] MEDS: FLUDROCORTISONE ACETATE 0.1 MG TABLET PO SCH (11:06)
[2018-11-12] MEDS: DEXTROSE 5%-WATER 250 ML with VASOPRESSIN 100 UNIT IV PRN ×2 (13:21)
[2018-11-12] MEDS ORDERED: FUROSEMIDE INJ/PF 40 MG/4 ML SDV IV ONE (14:38)
[2018-11-12] MEDS ORDERED: FUROSEMIDE INJ/PF 40 MG/4 ML SDV ONE (14:43)
--- NOTE | 2018-11-12 14:50 | PDOC PROGRESS REPORT ---
Subjective Progress Note for:: 11/12/18 Subjective:: Patient seen by the bedside in ICU intubated on mechanical ventilation Reason For Visit: SEPSIS, BILATERAL PNEUMONIA, HYPOTENSION, Physical Exam Vital Signs: Temp Pulse Resp BP Pulse Ox 99.0 F 76 24 H 130/87 H 97 11/12/18 11:59 11/12/18 14:22 11/12/18 14:22 11/12/18 11:59 11/12/18 11:59 Intake & Output 11/11/18 11/12/18 11/13/18 06:59 06:59 06:59 Intake Total 3269 2488 317 Output Total 2210 2180 685 Balance 1059 308 -368 Weight 64.7 kg 68.3 kg Eye exam: PRESENT: PERRLA Respiratory exam: PRESENT: other - Auscultation revealed equal air entry in both lung sainz Cardiovascular exam: PRESENT: +S1, +S2 GI/Abdominal exam: PRESENT: soft Neurological exam: PRESENT: other - Sedated on mechanial ventilation Results Laboratory Results: 11/12/18 04:52 11/12/18 04:52 11/11/18 11/11/18 11/11/18 16:10 16:10 16:10 WBC 6.9 RBC 2.19 L Hgb 7.4 L Hct 22.0 L MCV 101 H MCH 34.0 H MCHC 33.8 RDW 15.8 H Plt Count 144 L Seg Neutrophils % 84.1 H Lymphocytes % 11.9 L Monocytes % 2.9 L Eosinophils % 0.0 Basophils % 1.1 Absolute Neutrophils 5.8 Absolute Lymphocytes 0.8 Absolute Monocytes 0.2 Absolute Eosinophils 0.0 Absolute Basophils 0.1 Carbonic Acid HCO3/H2CO3 Ratio ABG pH ABG pCO2 ABG pO2 ABG HCO3 ABG O2 Saturation ABG Base Excess FiO2 Sodium 124.3 L Potassium 3.6 Chloride 100 Carbon Dioxide 18 L Anion Gap 6 BUN 5 L Creatinine 0.30 L Est GFR ( Amer) > 60 Est GFR (Non-Af Amer) > 60 Glucose 127 H Serum Osmolality Lactic Acid 1.3 Calcium 6.7 L* Magnesium 1.6 Albumin Urine Osmolality Stool Occult Blood Blood Type Antibody Screen 11/11/18 11/11/18 11/11/18 16:10 16:10 16:50 WBC 6.7 RBC 2.13 L Hgb 7.1 L Hct 21.3 L MCV 100 H MCH 33.5 H MCHC 33.4 RDW 15.8 H Plt Count 148 L Seg Neutrophils % 86.1 H Lymphocytes % 10.7 L Monocytes % 2.7 L Eosinophils % 0.1 Basophils % 0.4 Absolute Neutrophils 5.8 Absolute Lymphocytes 0.7 Absolute Monocytes 0.2 Absolute Eosinophils 0.0 Absolute Basophils 0.0 Carbonic Acid HCO3/H2CO3 Ratio ABG pH ABG pCO2 ABG pO2 ABG HCO3 ABG O2 Saturation ABG Base Excess FiO2 Sodium Potassium Chloride Carbon Dioxide Anion Gap BUN Creatinine Est GFR ( Amer) Est GFR (Non-Af Amer) Glucose Serum Osmolality 258 L Lactic Acid Calcium Magnesium Albumin 1.4 L Urine Osmolality Stool Occult Blood Blood Type Antibody Screen 11/11/18 11/11/18 11/11/18 16:50 17:20 17:40 WBC RBC Hgb Hct MCV MCH MCHC RDW Plt Count Seg Neutrophils % Lymphocytes % Monocytes % Eosinophils % Basophils % Absolute Neutrophils Absolute Lymphocytes Absolute Monocytes Absolute Eosinophils Absolute Basophils Carbonic Acid HCO3/H2CO3 Ratio ABG pH ABG pCO2 ABG pO2 ABG HCO3 ABG O2 Saturation ABG Base Excess FiO2 Sodium Potassium Chloride Carbon Dioxide Anion Gap BUN Creatinine Est GFR ( Amer) Est GFR (Non-Af Amer) Glucose Serum Osmolality Lactic Acid Calcium Magnesium Albumin Urine Osmolality 466 Stool Occult Blood POSITIVE Blood Type O POSITIVE Antibody Screen NEGATIVE 11/11/18 11/11/18 11/11/18 21:17 21:17 22:30 WBC RBC Hgb Hct MCV MCH MCHC RDW Plt Count Seg Neutrophils % Lymphocytes % Monocytes % Eosinophils % Basophils % Absolute Neutrophils Absolute Lymphocytes Absolute Monocytes Absolute Eosinophils Absolute Basophils Carbonic Acid 0.73 L HCO3/H2CO3 Ratio 23:1 ABG pH 7.46 H ABG pCO2 24.3 L ABG pO2 64.7 L ABG HCO3 16.9 L ABG O2 Saturation 94.2 ABG Base Excess -5.9 FiO2 25% Sodium 123.7 L Potassium 3.4 L Chloride 99 Carbon Dioxide 18 L Anion Gap 7 BUN 4 L Creatinine 0.35 L Est GFR ( Amer) > 60 Est GFR (Non-Af Amer) > 60 Glucose 119 H Serum Osmolality Lactic Acid Calcium 6.5 L* Magnesium Albumin 1.8 L Urine Osmolality Stool Occult Blood Blood Type Antibody Screen 11/11/18 11/12/18 11/12/18 23:15 04:52 04:52 WBC 8.2 RBC 2.55 L Hgb 8.4 L Hct 24.2 L MCV 95 D MCH 32.8 MCHC 34.5 RDW 18.1 H Plt Count 165 Seg Neutrophils % 88.1 H Lymphocytes % 7.7 L Monocytes % 3.4 Eosinophils % 0.1 Basophils % 0.7 Absolute Neutrophils 7.2 Absolute Lymphocytes 0.6 Absolute Monocytes 0.3 Absolute Eosinophils 0.0 Absolute Basophils 0.1 Carbonic Acid 0.82 L HCO3/H2CO3 Ratio 25:1 ABG pH 7.50 H ABG pCO2 27.3 L ABG pO2 94.1 ABG HCO3 20.7 ABG O2 Saturation 97.8 ABG Base Excess -1.9 FiO2 35% Sodium 125.1 L Potassium 3.1 L Chloride 98 Carbon Dioxide 18 L Anion Gap 9 BUN 6 L Creatinine 0.33 L Est GFR ( Amer) > 60 Est GFR (Non-Af Amer) > 60 Glucose 97 Serum Osmolality Lactic Acid Calcium 7.1 L Magnesium 1.5 L Albumin Urine Osmolality Stool Occult Blood Blood Type Antibody Screen 11/12/18 11/12/18 11/12/18 04:52 04:52 13:10 WBC 8.9 RBC 2.48 L Hgb 8.1 L Hct 23.7 L MCV 96 MCH 32.6 MCHC 34.1 RDW 18.4 H Plt Count 179 Seg Neutrophils % 87.7 H Lymphocytes % 7.6 L Monocytes % 3.3 Eosinophils % 0.1 Basophils % 1.3 Absolute Neutrophils 7.8 Absolute Lymphocytes 0.7 Absolute Monocytes 0.3 Absolute Eosinophils 0.0 Absolute Basophils 0.1 Carbonic Acid HCO3/H2CO3 Ratio ABG pH ABG pCO2 ABG pO2 ABG HCO3 ABG O2 Saturation ABG Base Excess FiO2 Sodium Potassium Chloride Carbon Dioxide Anion Gap BUN Creatinine Est GFR ( Amer) Est GFR (Non-Af Amer) Glucose Serum Osmolality Lactic Acid 0.8 Calcium Magnesium 2.1 Albumin Urine Osmolality Stool Occult Blood Blood Type Antibody Screen 11/07/18 09:57 Blood Blood Culture - Final NO GROWTH IN 5 DAYS 11/07/18 08:10 Blood Blood Culture - Final NO GROWTH IN 5 DAYS 11/07/18 19:30 Decubitis Ulcer - Sacral Gram Stain - Final 11/07/18 19:30 Decubitis Ulcer - Sacral Wound Culture - Final Escherichia Coli Proteus Mirabilis Staphylococcus Aureus Enterococcus Faecalis(Group D) Skin Gayle 11/07/18 08:30 Catheterized Urine Urine Culture - Final Proteus Mirabilis Enterococcus Faecalis(Group D) 11/07/18 11/07/18 11/07/18 08:10 09:57 17:05 Creatine Kinase 89 CK-MB (CK-2) Troponin I Cancelled < 0.012 NT-Pro-B Natriuret Pep Cancelled 172 H 11/07/18 11/07/18 11/07/18 17:05 23:02 23:02 Creatine Kinase 104 CK-MB (CK-2) 0.89 0.92 Troponin I < 0.012 < 0.012 NT-Pro-B Natriuret Pep 11/08/18 11/08/18 05:00 05:00 Creatine Kinase 73 CK-MB (CK-2) 0.68 Troponin I < 0.012 NT-Pro-B Natriuret Pep Impressions: Abdomen/Pelvis CT 11/07/18 10:58 IMPRESSION: 1. There is severe thickening of the terminal ileum, cecum, and proximal transverse colon, consistent with nonspecific infectious or inflammatory colitis. This pattern of inflammation may be seen in inflammatory bowel disease such as Crohn's disease. Correlate for appropriate history of clinical signs and symptoms if present. 2. Hepatomegaly and severe hepatic steatosis. 3. Status post Shanthi-en-Y gastric bypass. 4. Multifocal bilateral geographic ground-glass pulmonary opacity in the included bilateral lung bases, an unusual pattern that can be seen in atypical infection as well as inflammatory pneumonitis such as organizing pneumonia. Chest/Abdomen CTA 11/09/18 09:21 IMPRESSION: 1. Ground-glass opacities and bilateral effusions. Similar a ppearance to February study, suspect recurrent pulmonary edema. Superimposed consolidation most notable in the left upper lobe. This may reflect pneumonia. 2. No pulmonary embolus. Chest X-Ray 11/12/18 06:00 IMPRESSION: No significant change. Assessment & Plan - Diagnosis (1) Septic shock Is this a current diagnosis for this admission?: Yes Plan: Patient with sepsis and septic shock, she is on multiple vasopressors including norepinephrine, phenylephrine, the culture from the urine grew Proteus mirabilis with significant bacteriuria and also Enterococcus faecalis, the wound culture grew multiple organisms including E. coli, Proteus mirabilis, staph aureus, Enterococcus faecalis, on IV antibiotic, presently on vancomycin Levaquin and gentamicin, will DC gentamicin, to reduce potential nephrotoxic agents, the Levaquin and vancomycin will cover most of the potential pathogens based on the culture sensitivity results, increase hydrocortisone to 50 IV every 8 (2) Metabolic alkalosis Is this a current diagnosis for this admission?: Yes (3) Sacral decubitus ulcer, stage IV Is this a current diagnosis for this admission?: Yes (4) Colitis Is this a current diagnosis for this admission?: Yes (5) Multifocal pneumonia Is this a current diagnosis for this admission?: Yes Plan: No specific organism isolated from the sputum yet (6) Hemiparesis affecting left side as late effect of cerebrovascular accident Is this a current diagnosis for this admission?: Yes (7) Hypoalbuminemia Is this a current diagnosis for this admission?: Yes Plan: On admission she had severe hypoalbuminemia, the cause is not clear because there was no proteinuria though she has an enlarged liver, she may need liver biopsy once stable to ensure he does not liver cirrhosis (8) Edema due to hypoalbuminemia Is this a current diagnosis for this admission?: Yes (9) Hypokalemia Is this a current diagnosis for this admission?: Yes Plan: Patient presented with a life-threatening hypokalemia, it was 1.8 partly due to the fact that she was taking fludrocortisone, a mineralocorticoid, 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
[2018-11-12] MEDS: LEVOFLOXACIN 500 MG/D5W RTU 500 MG/100 ML RTUPB IV SCH (15:01)
[2018-11-12] MEDS: FENTANYL CITRATE/PF 600 MCG/60 ML BAG IV PRN (15:52)
[2018-11-12 16:19] LABS: ANION GAP 10 (5-19); BLOOD UREA NITROGEN 5 mg/dL (7-20); CALCIUM 7.3 mg/dL (8.4-10.2); CARBON DIOXIDE 17 mmol/L (22-30); CHLORIDE 96 mmol/L (98-107); GLUCOSE 91 mg/dL (75-110); POTASSIUM 3.5 mmol/L (3.6-5.0); SODIUM 122.9 mmol/L (137-145)
[2018-11-12 16:53] LABS: HEMATOCRIT 22.2 % (36.0-47.0); MEAN CORPUSCULAR HEMOGLOBIN 32.3 pg (27.0-33.4); MEAN CORPUSCULAR HGB CONC 34.1 g/dL (32.0-36.0); MEAN CORPUSCULAR VOLUME 95 fl (80-97); PLATELET COUNT 186 10^3/uL (150-450); RED BLOOD COUNT 2.34 10^6/uL (3.72-5.28); RED CELL DISTRIBUTION WIDTH 17.9 % (11.5-14.0); WHITE BLOOD COUNT 8.2 10^3/uL (4.0-10.5)
[2018-11-12 17:17] LABS: ABSOLUTE LYMPHOCYTES# (MANUAL) 0.4 10^3/uL (0.5-4.7); ABSOLUTE MONOCYTES # (MANUAL) 0.2 10^3/uL (0.1-1.4); ABSOLUTE NEUTROPHILS# (MANUAL) 7.5 10^3/uL (1.7-8.2); BASOPHILS % (MANUAL) 0 % (0-2); EOSINOPHILS % (MANUAL) 0 % (0-6); LYMPHOCYTES % (MANUAL) 5 % (13-45); MONOCYTES % (MANUAL) 3 % (3-13); SEGMENTED NEUTROPHILS % (MAN) 92 % (42-78); TOTAL CELLS COUNTED 100
[2018-11-12 17:18] LABS: PLATELET COMMENT ADEQUATE; PLATELET LARGE PRESENT
[2018-11-12 17:20] LABS: ANISOCYTOSIS 1+; POIKILOCYTOSIS SLIGHT; POLYCHROMASIA SLIGHT; TEAR DROP CELLS SLIGHT
[2018-11-12 17:22] LABS: HEMOGLOBIN 7.6 g/dL (12.0-15.5)
--- NOTE | 2018-11-12 20:15 | PDOC PROGRESS REPORT ---
Subjective Progress Note for:: 11/12/18 Subjective:: Patient remains to be intubated and sedated. She is finally having a negative fluid balance today after an additional 40 mg of IV Lasix. I also gave her 50 g of IV albumin prior to the IV Lasix. IV antibiotics has been adjusted according to cough urine culture and sensitivities. Reason For Visit: SEPSIS, BILATERAL PNEUMONIA, HYPOTENSION, Physical Exam Vital Signs: Temp Pulse Resp BP Pulse Ox 99.9 F 94 24 H 113/68 96 11/12/18 19:27 11/12/18 19:53 11/12/18 19:53 11/12/18 18:39 11/12/18 19:53 Intake & Output 11/11/18 11/12/18 11/13/18 06:59 06:59 06:59 Intake Total 3269 2488 897 Output Total 2210 2180 2405 Balance 1059 308 -1508 Weight 64.7 kg 68.3 kg Exam: General appearance: PRESENT: Intubated and sedated Head exam: PRESENT: atraumatic, normocephalic Eye exam: PRESENT: Eyes are closed Neck exam: ABSENT: JVD Respiratory exam: PRESENT: Diminished breath sounds. ABSENT: crackles, rales, rhonchi, unlabored, wheezes Cardiovascular exam: PRESENT: Regular rate rhythm -+S1, +S2. ABSENT: diastolic murmur, systolic murmur GI/Abdominal exam: PRESENT: normal bowel sounds, soft. ABSENT: guarding, mass, tenderness Extremities exam: Positive anasarca with grade 4 bilateral lower extremity pitti ng edema in bilateral upper extremity edema Neurological exam: PRESENT: Sedated. Skin exam: PRESENT: dry, warm, Results Laboratory Results: 11/12/18 16:13 11/12/18 13:10 11/11/18 11/11/18 11/11/18 21:17 21:17 22:30 WBC RBC Hgb Hct MCV MCH MCHC RDW Plt Count Seg Neutrophils % Lymphocytes % Monocytes % Eosinophils % Basophils % Absolute Neutrophils Absolute Lymphocytes Absolute Monocytes Absolute Eosinophils Absolute Basophils Carbonic Acid 0.73 L HCO3/H2CO3 Ratio 23:1 ABG pH 7.46 H ABG pCO2 24.3 L ABG pO2 64.7 L ABG HCO3 16.9 L ABG O2 Saturation 94.2 ABG Base Excess -5.9 FiO2 25% Sodium 123.7 L Potassium 3.4 L Chloride 99 Carbon Dioxide 18 L Anion Gap 7 BUN 4 L Creatinine 0.35 L Est GFR ( Amer) > 60 Est GFR (Non-Af Amer) > 60 Glucose 119 H Lactic Acid Calcium 6.5 L* Magnesium Albumin 1.8 L 11/11/18 11/12/18 11/12/18 23:15 04:52 04:52 WBC 8.2 RBC 2.55 L Hgb 8.4 L Hct 24.2 L MCV 95 D MCH 32.8 MCHC 34.5 RDW 18.1 H Plt Count 165 Seg Neutrophils % 88.1 H Lymphocytes % 7.7 L Monocytes % 3.4 Eosinophils % 0.1 Basophils % 0.7 Absolute Neutrophils 7.2 Absolute Lymphocytes 0.6 Absolute Monocytes 0.3 Absolute Eosinophils 0.0 Absolute Basophils 0.1 Carbonic Acid 0.82 L HCO3/H2CO3 Ratio 25:1 ABG pH 7.50 H ABG pCO2 27.3 L ABG pO2 94.1 ABG HCO3 20.7 ABG O2 Saturation 97.8 ABG Base Excess -1.9 FiO2 35% Sodium 125.1 L Potassium 3.1 L Chloride 98 Carbon Dioxide 18 L Anion Gap 9 BUN 6 L Creatinine 0.33 L Est GFR ( Amer) > 60 Est GFR (Non-Af Amer) > 60 Glucose 97 Lactic Acid Calcium 7.1 L Magnesium 1.5 L Albumin 11/12/18 11/12/18 11/12/18 04:52 04:52 13:10 WBC 8.9 RBC 2.48 L Hgb 8.1 L Hct 23.7 L MCV 96 MCH 32.6 MCHC 34.1 RDW 18.4 H Plt Count 179 Seg Neutrophils % 87.7 H Lymphocytes % 7.6 L Monocytes % 3.3 Eosinophils % 0.1 Basophils % 1.3 Absolute Neutrophils 7.8 Absolute Lymphocytes 0.7 Absolute Monocytes 0.3 Absolute Eosinophils 0.0 Absolute Basophils 0.1 Carbonic Acid HCO3/H2CO3 Ratio ABG pH ABG pCO2 ABG pO2 ABG HCO3 ABG O2 Saturation ABG Base Excess FiO2 Sodium Potassium Chloride Carbon Dioxide Anion Gap BUN Creatinine Est GFR ( Amer) Est GFR (Non-Af Amer) Glucose Lactic Acid 0.8 Calcium Magnesium 2.1 Albumin 01/02/19 01/02/19 01/02/19 13:10 16:13 16:13 WBC 8.2 RBC 2.34 L Hgb 7.6 L Hct 22.2 L MCV 95 MCH 32.3 MCHC 34.1 RDW 17.9 H Plt Count 186 Seg Neutrophils % Not Reportable Lymphocytes % Not Reportable Monocytes % Not Reportable Eosinophils % Not Reportable Basophils % Not Reportable Absolute Neutrophils Not Reportable Absolute Lymphocytes Not Reportable Absolute Monocytes Not Reportable Absolute Eosinophils Not Reportable Absolute Basophils Not Reportable Carbonic Acid HCO3/H2CO3 Ratio ABG pH ABG pCO2 ABG pO2 ABG HCO3 ABG O2 Saturation ABG Base Excess FiO2 Sodium 122.9 L Potassium 3.5 L Chloride 96 L Carbon Dioxide 17 L Anion Gap 10 BUN 5 L Creatinine 0.43 L Est GFR ( Amer) > 60 Est GFR (Non-Af Amer) > 60 Glucose 91 Lactic Acid 1.7 Calcium 7.3 L Magnesium Albumin 11/07/18 09:57 Blood Blood Culture - Final NO GROWTH IN 5 DAYS 11/07/18 08:10 Blood Blood Culture - Final NO GROWTH IN 5 DAYS 11/07/18 19:30 Decubitis Ulcer - Sacral Gram Stain - Final 11/07/18 19:30 Decubitis Ulcer - Sacral Wound Culture - Final Escherichia Coli Proteus Mirabilis Staphylococcus Aureus Enterococcus Faecalis(Group D) Skin Gayle 11/07/18 11/07/18 11/07/18 08:10 09:57 17:05 Creatine Kinase 89 CK-MB (CK-2) Troponin I Cancelled < 0.012 NT-Pro-B Natriuret Pep Cancelled 172 H 11/07/18 11/07/18 11/07/18 17:05 23:02 23:02 Creatine Kinase 104 CK-MB (CK-2) 0.89 0.92 Troponin I < 0.012 < 0.012 NT-Pro-B Natriuret Pep 11/08/18 11/08/18 05:00 05:00 Creatine Kinase 73 CK-MB (CK-2) 0.68 Troponin I < 0.012 NT-Pro-B Natriuret Pep Impressions: Abdomen/Pelvis CT 11/07/18 10:58 IMPRESSION: 1. There is severe thickening of the terminal ileum, cecum, and proximal transverse colon, consistent with nonspecific infectious or inflammatory colitis. This pattern of inflammation may be seen in inflammatory bowel disease such as Crohn's disease. Correlate for appropriate history of clinical signs and symptoms if present. 2. Hepatomegaly and severe hepatic steatosis. 3. Status post Shanthi-en-Y gastric bypass. 4. Multifocal bilateral geographic ground-glass pulmonary opacity in the included bilateral lung bases, an unusual pattern that can be seen in atypical infection as well as inflammatory pneumonitis such as organizing pneumonia. Chest/Abdomen CTA 11/09/18 09:21 IMPRESSION: 1. Ground-glass opacities and bilateral effusions. Similar appearance to February study, suspect recurrent pulmonary edema. Superimposed consolidation most notable in the left upper lobe. This may reflect pneumonia. 2. No pulmonary embolus. Chest X-Ray 11/12/18 06:00 IMPRESSION: No significant change. Assessment & Plan - Diagnosis (1) Hyponatremia Is this a current diagnosis for this admission?: Yes Plan: Multifactorial secondary to hypervolemic state, adrenal insufficiency, hypothyroidism and SSRI. Patient needs real aquapheresis. Today is the first time that she is possibly having negative fluid balance. I will change her Lasix to 40 mg IV every 12 hours since she seems to be responding better with that dose. We will give IV albumin as needed. Will discontinue sertraline at this time. Replace potassium. If her sodium continues to go down below 120 will consider IV conivaptan. (2) Edema due to hypoalbuminemia Is this a current diagnosis for this admission?: Yes Plan: I gave the patient 50 g of IV albumin today. (3) Gram negative septic shock Is this a current diagnosis for this admission?: Yes (4) UTI (urinary tract infection) Qualifiers: Urinary tract infection type: acute cystitis Is this a current diagnosis for this admission?: Yes Plan: Secondary to Proteus mirabilis, enterococcus, and staph aureus. IV antibiotics modified by Dr. Callaway. (5) Hypokalemia Is this a current diagnosis for this admission?: Yes Plan: Likely due to diuresis. (6) Anemia Qualifiers: Anemia type: unspecified type Qualified Code(s): D64.9 - Anemia, unspecified Is this a current diagnosis for this admission?: Yes Plan: Patient did have 2 units of blood transfusion today. (7) Sacral decubitus ulcer, stage II Is this a current diagnosis for this admission?: Yes (8) Adrenal insufficiency Is this a current diagnosis for this admission?: Yes Plan: Hydrocortisone was increased while fludrocortisone was discontinued. (9) Hypothyroidism Qualifiers: Hypothyroidism type: unspecified Qualified Code(s): E03.9 - Hypothyroidism, unspecified Is this a current diagnosis for this admission?: Yes (10) Multifocal pneumonia Is this a current diagnosis for this admission?: Yes (11) Colitis Is this a current diagnosis for this admission?: Yes - Time Time with patient: 15-25 minutes
[2018-11-13] MEDS: IPRATROPIUM/ALBUTEROL 0.5-2.5 MG/3 ML AMPUL NEB SCH ×4 (02:19→19:31)
[2018-11-13] MEDS: FENTANYL CITRATE/PF 600 MCG/60 ML BAG IV PRN ×2 (02:34→14:04)
[2018-11-13 04:28] LABS: HEMATOCRIT 22.8 % (36.0-47.0); MEAN CORPUSCULAR HGB CONC 34.8 g/dL (32.0-36.0); MEAN CORPUSCULAR VOLUME 95 fl (80-97); PLATELET COUNT 196 10^3/uL (150-450); RED CELL DISTRIBUTION WIDTH 17.3 % (11.5-14.0); WHITE BLOOD COUNT 8.6 10^3/uL (4.0-10.5)
[2018-11-13 04:35] LABS: HEMOGLOBIN 7.9 g/dL (12.0-15.5)
[2018-11-13 04:49] LABS: ABSOLUTE LYMPHOCYTES# (MANUAL) 0.7 10^3/uL (0.5-4.7); ABSOLUTE MONOCYTES # (MANUAL) 0.3 10^3/uL (0.1-1.4); ABSOLUTE NEUTROPHILS# (MANUAL) 7.7 10^3/uL (1.7-8.2); BASOPHILS % (MANUAL) 0 % (0-2); EOSINOPHILS % (MANUAL) 0 % (0-6); LYMPHOCYTES % (MANUAL) 7 % (13-45); MONOCYTES % (MANUAL) 3 % (3-13); SEGMENTED NEUTROPHILS % (MAN) 89 % (42-78); TOTAL CELLS COUNTED 100
[2018-11-13 04:50] LABS: ANISOCYTOSIS 1+; HELMET CELLS 1+; PAPPENHEIMER BODIES PRESENT; PLATELET CLUMPS PRESENT; PLATELET COMMENT ADEQUATE; PLATELET LARGE PRESENT; POIKILOCYTOSIS 1+; POLYCHROMASIA SLIGHT; SCHISTOCYTES 1+; TOXIC GRANULATION SLIGHT; TOXIC VACUOLATION PRESENT
[2018-11-13 04:54] LABS: ARTERIAL BLOOD BASE EXCESS -5.1 mmol/L; ARTERIAL BLOOD H2CO3 0.73 mmol/L (1.05-1.35); ARTERIAL BLOOD HCO3 17.6 mmol/L (20-24); ARTERIAL BLOOD PCO2 24.4 mmHg (35-45); ARTERIAL BLOOD PH 7.48 (7.35-7.45); ARTERIAL BLOOD PO2 82.8 mmHg (80-100); ARTERIAL BLOOD TOTAL CO2 18.3 mmol/L (21-25)
[2018-11-13 04:55] LABS: ARTERIAL BLOOD FIO2 40%
[2018-11-13] MEDS: METRONIDAZOLE 500 MG/NS RTU 500 MG/100 ML RTUPB IV SCH ×4 (05:16→23:36)
[2018-11-13] MEDS: HYDROCORTISONE SOD SUCCINATE INJ/PF 100 MG/2 ML SDV IV SCH ×3 (05:17→21:41)
[2018-11-13 05:18] LABS: ALBUMIN 2.2 g/dL (3.5-5.0); ANION GAP 9 (5-19); BLOOD UREA NITROGEN 6 mg/dL (7-20); CALCIUM 7.3 mg/dL (8.4-10.2); CARBON DIOXIDE 20 mmol/L (22-30); CHLORIDE 93 mmol/L (98-107); GLUCOSE 87 mg/dL (75-110); SODIUM 122.3 mmol/L (137-145)
[2018-11-13] MEDS: FUROSEMIDE INJ/PF 40 MG/4 ML SDV IV SCH ×2 (05:18→17:48)
[2018-11-13] MEDS: LEVOTHYROXINE SODIUM 0.088 MG TABLET PO SCH (05:18)
[2018-11-13] MEDS: LACTOBACILLUS ACIDOPHILUS 250 MG TAB PO SCH ×2 (05:18→17:48)
[2018-11-13] MEDS: VANCOMYCIN HCL 1,000 MG in DEXTROSE 5%-WATER 250 ML IV SCH ×3 (05:20→21:41)
[2018-11-13 05:29] LABS: POTASSIUM 2.8 mmol/L (3.6-5.0)
[2018-11-13] MEDS ORDERED: POTASSI CL 20 MEQ/50 ML RIDER 20 MEQ/50 ML RTUPB IV ONE (05:53)
--- NOTE | 2018-11-13 06:03 | RADIOLOGY REPORT (SQ) ---
EXAM DESCRIPTION: XR CHEST 1 VIEW COMPLETED DATE/TME: 11/13/2018 06:00 CLINICAL HISTORY: 48 years Female, pna/resp failure COMPARISON: One day prior. NUMBER OF VIEWS/TECHNIQUE: 1/AP FINDINGS: Moderate mixed airspace and interstitial opacities. Adequate appearing endotracheal tube. Tip of an enteric tube is at the level of the distal esophagus; consider replacement/advancement. Adequate appearing right subclavian central line. Normal cardiac silhouette size. No pneumothorax. Stable bony thorax. IMPRESSION: Tip of an enteric tube is at the level of the distal esophagus; consider replacement/advancement. Else, stable.
[2018-11-13] MEDS: POTASSIUM CHLORIDE 20 MEQ/50 ML RTU IV SCH ×5 (06:14→23:34)
[2018-11-13] MEDS: TOPIRAMATE 25 MG TABLET PO SCH ×2 (07:45→17:48)
--- NOTE | 2018-11-13 08:37 | RADIOLOGY REPORT (SQ) ---
EXAM DESCRIPTION: KUB/ABDOMEN (SINGLE VIEW) COMPLETED DATE/TIME: 11/13/2018 8:28 am REASON FOR STUDY: NGT PLACEMENT COMPARISON: 05/08/2017 NUMBER OF VIEWS: One view. TECHNIQUE: Supine radiographic image of the abdomen acquired. LIMITATIONS: None. FINDINGS: BOWEL GAS PATTERN: There are few distended loops of bowel in the mid abdomen. CALCIFICATIONS: No suspicious calcifications. SOFT TISSUES: No gross mass or suggestion of organomegaly. HARDWARE: None in the abdomen. BONES: No acute fracture. No worrisome bone lesions. OTHER: Esophagogastric tube with tip and side port below the diaphragm, likely within a gastric pouch status post Shanthi-en-Y bypass given the configuration of surgical findings. IMPRESSION: Esophagogastric tube with tip and side port below the diaphragm, likely within a gastric pouch status post Shanthi-en-Y bypass given the configuration of surgical findings. Distended loops of bowel in the mid abdomen are concerning for bowel obstruction. There is no obvious free air in the abdomen on limited supine radiograph. TECHNICAL DOCUMENTATION: JOB ID: [id number] [employer]- All Rights Reserved Reading location - IP/workstation name: [email or web address]
[2018-11-13] MEDS: ACETYLCYSTEINE 20% SOLN 800 MG/4 ML VIAL.NEB NEB SCH ×2 (08:56→19:31)
--- NOTE | 2018-11-13 10:45 | Progress Note ---
Provider Note Provider Note: ID Consult Note Asked to review patient's chart by Pharmacy. Pt not seen or examined. Reviewed VS, provider reports, imaging reports, labs. Ms Sheikh is a 48 year old woman with PMH/PSH including bipolar d/o, GERD, morbid obesity s/p gastric bypass, L femoral neck fx s/p hip arthroplasty, CHF, tobacco use, hypothyroidism. Presented on 11/07/18 to ED, brought by family for generalized weakness, malaise and fever. Admitted to SOB, N&V, difficulty urinating. Found to be hypotensive requiring vasopressors, tachycardic, febrile. Clear lungs noted in ED but rhonchi on admission. Also sacral decubitus ulcer with no purulence, varied stages of granulation tissue, and dry eschar on exam. Initial labs included leukocytosis, elevated lactic acid 5.7, severe hypokalemia, normal transaminases. CT abdomen/pelvis without PO contrast read as showing thickening of terminal ileum, cecum, transverse colon. CT chest showed ground glass opacities and b/l effusions suspected to be recurrent pulmonary edema and superimposed consolidation in SILVIA suspicious for pneumonia. U/A showed only 1-6 WBCs. BCx negative. UCx grew >100k cfu Proteus mirabilis. Superficial swab of sacral wound had polymicrobial growth (E coli, P mirabilis, MSSA, E faecalis, skin donna). Pt given diagnosis of septic shock due to colitis, UTI, and aspiration pneumonia. Surgery was also consulted to evaluate: Found no indication for debridement of ulcer and low clinical suspicion for intra-abdominal pathology with CT abdomen felt to be nonconclusive study due to poor delination of intraluminal anatomy given lack of contrast. Hospitalization also complicated by development of hyponatremia, peripheral edema with positive fluid balance, and need for intubation around 11/10 for hypoxic respiratory failure. Abx: Doxycycline and Levaquin on 11/07 Aztreonam 11/07-11/09 --> Levaquin 11/09-present Vancomycin 11/07-present Flagyl 11/08-present Gentamicin 11/10-11/12 Last fever 11/10. Afebrile since then. WBC 16k initially. Now WBC WNL. Most recent CXR read as showing central edema pattern. Remains intubated. Continues to require vasopressors. Being diuresed. Impression/Recommendations If sacral decubitus ulcer is not infected appearing, obtaining culture from it does not provide meaningful information. When assessed by Surgery, no indication for debridement was found. Doubt this is source of shock, but nonetheless, no MRSA isolated from this culture (Staph aureus was MSSA) or from blood. Recommend discontinuing vancomycin. If there is suspicion for an additional intraabdominal source of infection (e.g. acalculous cholecystitis or colitis), additional imaging may be helpful to evaluate. But, otherwise, if pt is being treated for aspiration pneumonia, continuing Levaquin/Flagyl is reasonable with an aim to complete 7 days. Today is day 6. Curtis Kelley MD [facility] pager [phone]
[2018-11-13] MEDS: MIDAZOLAM HCL 50 MG/100 ML RTUINJ IV PRN (11:50)
[2018-11-13] MEDS: PANTOPRAZOLE SODIUM 40 MG VIAL IV SCH (11:50)
[2018-11-13] MEDS: PROPOFOL 1,000 MG/100 ML INFUS..BTL IV PRN (11:51)
[2018-11-13] MEDS: LEVOFLOXACIN 500 MG/D5W RTU 500 MG/100 ML RTUPB IV SCH (15:53)
--- NOTE | 2018-11-13 16:29 | PDOC PROGRESS REPORT ---
Subjective Progress Note for:: 11/13/18 Subjective:: Patient remains to be intubated and sedated with the Proventil, Versed and fentanyl drips. She is also receiving blood transfusion currently on the first unit. Since I increase her Lasix to 40 mg IV she has been pouring out the urine since last night and so far today had made 4850 mL of urine. Is also receiving potassium replacements. Reason For Visit: SEPSIS, BILATERAL PNEUMONIA, HYPOTENSION, Physical Exam Vital Signs: Temp Pulse Resp BP Pulse Ox 99.5 F 86 18 106/62 98 11/13/18 15:17 11/13/18 15:17 11/13/18 15:17 11/13/18 15:17 11/13/18 15:17 Intake & Output 11/12/18 11/13/18 11/14/18 06:59 06:59 06:59 Intake Total 2488 2319 297 Output Total 2180 2745 4850 Balance 308 426 -4553 Weight 68.3 kg 69.6 kg Exam: General appearance: PRESENT: Intubated and sedated Head exam: PRESENT: atraumatic, normocephalic Eye exam: PRESENT: Eyes closed and the face appears pale Neck exam: ABSENT: JVD Respiratory exam: PRESENT: Diminished breath sounds. ABSENT: crackles, rales, rhonchi, unlabored, wheezes Cardiovascular exam: PRESENT: Regular rate rhythm -+S1, +S2. ABSENT: diastolic murmur, systolic murmur GI/Abdominal exam: PRESENT: normal bowel sounds, soft. ABSENT: guarding, mass, tenderness Extremities exam: Possibly slightly improved bilateral upper and grade 4 bilateral lower extremity pitting edema but still very significant Neurological exam: PRESENT: Sedated. Skin exam: PRESENT: dry, warm, Results Laboratory Results: 11/13/18 04:12 11/13/18 04:10 11/11/18 11/12/18 11/12/18 17:20 16:13 16:13 WBC 8.2 RBC 2.34 L Hgb 7.6 L Hct 22.2 L MCV 95 MCH 32.3 MCHC 34.1 RDW 17.9 H Plt Count 186 Seg Neutrophils % Not Reportable Lymphocytes % Not Reportable Monocytes % Not Reportable Eosinophils % Not Reportable Basophils % Not Reportable Absolute Neutrophils Not Reportable Absolute Lymphocytes Not Reportable Absolute Monocytes Not Reportable Absolute Eosinophils Not Reportable Absolute Basophils Not Reportable Carbonic Acid HCO3/H2CO3 Ratio ABG pH ABG pCO2 ABG pO2 ABG HCO3 ABG O2 Saturation ABG Base Excess FiO2 Sodium Potassium Chloride Carbon Dioxide Anion Gap BUN Creatinine Est GFR ( Amer) Est GFR (Non-Af Amer) Glucose Lactic Acid 1.7 Calcium Magnesium Albumin Blood Type O POSITIVE Antibody Screen NEGATIVE 11/13/18 11/13/18 11/13/18 04:10 04:10 04:12 WBC 8.6 RBC 2.40 L Hgb 7.9 L Hct 22.8 L MCV 95 MCH 33.0 MCHC 34.8 RDW 17.3 H Plt Count 196 Seg Neutrophils % Not Reportable Lymphocytes % Not Reportable Monocytes % Not Reportable Eosinophils % Not Reportable Basophils % Not Reportable Absolute Neutrophils Not Reportable Absolute Lymphocytes Not Reportable Absolute Monocytes Not Reportable Absolute Eosinophils Not Reportable Absolute Basophils Not Reportable Carbonic Acid 0.73 L HCO3/H2CO3 Ratio 24:1 ABG pH 7.48 H ABG pCO2 24.4 L ABG pO2 82.8 ABG HCO3 17.6 L ABG O2 Saturation 97.0 ABG Base Excess -5.1 FiO2 40% Sodium 122.3 L Potassium 2.8 L* Chloride 93 L Carbon Dioxide 20 L Anion Gap 9 BUN 6 L Creatinine 0.40 L Est GFR ( Amer) > 60 Est GFR (Non-Af Amer) > 60 Glucose 87 Lactic Acid Calcium 7.3 L Magnesium 1.9 Albumin 2.2 L Blood Type Antibody Screen 11/13/18 04:12 WBC RBC Hgb Hct MCV MCH MCHC RDW Plt Count Seg Neutrophils % Lymphocytes % Monocytes % Eosinophils % Basophils % Absolute Neutrophils Absolute Lymphocytes Absolute Monocytes Absolute Eosinophils Absolute Basophils Carbonic Acid HCO3/H2CO3 Ratio ABG pH ABG pCO2 ABG pO2 ABG HCO3 ABG O2 Saturation ABG Base Excess FiO2 Sodium Potassium Chloride Carbon Dioxide Anion Gap BUN Creatinine Est GFR ( Amer) Est GFR (Non-Af Amer) Glucose Lactic Acid 0.9 Calcium Magnesium Albumin Blood Type Antibody Screen 11/07/18 11/07/18 11/07/18 08:10 09:57 17:05 Creatine Kinase 89 CK-MB (CK-2) Troponin I Cancelled < 0.012 NT-Pro-B Natriuret Pep Cancelled 172 H 11/07/18 11/07/18 11/07/18 17:05 23:02 23:02 Creatine Kinase 104 CK-MB (CK-2) 0.89 0.92 Troponin I < 0.012 < 0.012 NT-Pro-B Natriuret Pep 11/08/18 11/08/18 05:00 05:00 Creatine Kinase 73 CK-MB (CK-2) 0.68 Troponin I < 0.012 NT-Pro-B Natriuret Pep Impressions: Abdomen/Pelvis CT 11/07/18 10:58 IMPRESSION: 1. There is severe thickening of the terminal ileum, cecum, and proximal transverse colon, consistent with nonspecific infectious or inflammatory colitis. This pattern of inflammation may be seen in inflammatory bowel disease such as Crohn's disease. Correlate for appropriate history of clinical signs and symptoms if present. 2. Hepatomegaly and severe hepatic steatosis. 3. Status post Shanthi-en-Y gastric bypass. 4. Multifocal bilateral geographic ground-glass pulmonary opacity in the included bilateral lung bases, an unusual pattern that can be seen in atypical infection as well as inflammatory pneumonitis such as organizing pneumonia. Chest/Abdomen CTA 11/09/18 09:21 IMPRESSION: 1. Ground-glass opacities and bilateral effusions. Similar appearance to February study, suspect recurrent pulmonary edema. Superimposed consolidation most notable in the left upper lobe. This may reflect pneumonia. 2. No pulmonary embolus. KUB X-Ray 11/13/18 00:00 IMPRESSION: Esophagogastric tube with tip and side port below the diaphragm, likely within a gastric pouch status post Shanthi-en-Y bypass given the configuration of surgical findings. Distended loops of bowel in the mid abdomen are concerning for bowel obstruction. There is no obvious free air in the abdomen on limited supine radiograph. Chest X-Ray 11/13/18 06:00 IMPRESSION: Tip of an enteric tube is at the level of the distal esophagus; consider replacement/advancement. Else, stable. Assessment & Plan - Diagnosis (1) Hyponatremia Is this a current diagnosis for this admission?: Yes Plan: Multifactorial secondary to hypervolemic state, adrenal insufficiency, hypothyroidism and SSRI. Patient needs real aquapheresis. Significant improvement in diuresis. BMP will be repeated tonight after blood transfusion. If sodium is still low, I will give the patient tolvaptan via NG tube. (2) Edema due to hypoalbuminemia Is this a current diagnosis for this admission?: Yes Plan: Patient had received IV albumin for the past 2 days. (3) Gram negative septic shock Is this a current diagnosis for this admission?: Yes (4) UTI (urinary tract infection) Qualifiers: Urinary tract infection type: acute cystitis Is this a current diagnosis for this admission?: Yes Plan: Secondary to Proteus mirabilis, enterococcus, and staph aureus. IV antibiotics modified by Dr. Callaway. (5) Hypokalemia Is this a current diagnosis for this admission?: Yes Plan: Likely due to diuresis. Potassium replacement as needed. (6) Anemia Qualifiers: Anemia type: unspecified type Qualified Code(s): D64.9 - Anemia, unspecified Is this a current diagnosis for this admission?: Yes Plan: Patient did have 2 units of blood transfusion yesterday and another 2 units to be given today. (7) Sacral decubitus ulcer, stage II Is this a current diagnosis for this admission?: Yes (8) Adrenal insufficiency Is this a current diagnosis for this admission?: Yes Plan: Hydrocortisone was increased while fludrocortisone was discontinued. (9) Hypothyroidism Qualifiers: Hypothyroidism type: unspecified Qualified Code(s): E03.9 - Hypothyroidism, unspecified Is this a current diagnosis for this admission?: Yes (10) Multifocal pneumonia Is this a current diagnosis for this admission?: Yes (11) Colitis Is this a current diagnosis for this admission?: Yes - Time Time with patient: 15-25 minutes
[2018-11-13 17:40] LABS: ANION GAP 6 (5-19); BLOOD UREA NITROGEN 5 mg/dL (7-20); CALCIUM 7.6 mg/dL (8.4-10.2); CARBON DIOXIDE 23 mmol/L (22-30); CHLORIDE 103 mmol/L (98-107); GLUCOSE 89 mg/dL (75-110); POTASSIUM 3.2 mmol/L (3.6-5.0); SODIUM 132.3 mmol/L (137-145)
--- NOTE | 2018-11-13 22:27 | PDOC PROGRESS REPORT ---
Subjective Progress Note for:: 11/13/18 Subjective:: Patient seen by the bedside still on mechanical ventilation, sedated Reason For Visit: SEPSIS, BILATERAL PNEUMONIA, HYPOTENSION, Physical Exam Vital Signs: Temp Pulse Resp BP Pulse Ox 99.3 F 88 15 111/17 L 96 11/13/18 22:00 11/13/18 22:00 11/13/18 22:00 11/13/18 22:00 11/13/18 22:00 Intake & Output 11/12/18 11/13/18 11/14/18 06:59 06:59 06:59 Intake Total 2488 2319 1435 Output Total 2184 9509 2137 Balance 911 -005 -7570 Weight 68.3 kg 69.6 kg Eye exam: PRESENT: PERRLA Respiratory exam: PRESENT: other - On auscultation there is equal air entry in both lung field Cardiovascular exam: PRESENT: +S1, +S2 GI/Abdominal exam: PRESENT: soft Results Laboratory Results: 11/13/18 04:12 11/13/18 17:00 11/11/18 11/13/18 11/13/18 17:20 04:10 04:10 WBC RBC Hgb Hct MCV MCH MCHC RDW Plt Count Seg Neutrophils % Lymphocytes % Monocytes % Eosinophils % Basophils % Absolute Neutrophils Absolute Lymphocytes Absolute Monocytes Absolute Eosinophils Absolute Basophils Carbonic Acid 0.73 L HCO3/H2CO3 Ratio 24:1 ABG pH 7.48 H ABG pCO2 24.4 L ABG pO2 82.8 ABG HCO3 17.6 L ABG O2 Saturation 97.0 ABG Base Excess -5.1 FiO2 40% Sodium 122.3 L Potassium 2.8 L* Chloride 93 L Carbon Dioxide 20 L Anion Gap 9 BUN 6 L Creatinine 0.40 L Est GFR ( Amer) > 60 Est GFR (Non-Af Amer) > 60 Glucose 87 Lactic Acid Calcium 7.3 L Magnesium 1.9 Albumin 2.2 L Blood Type O POSITIVE Antibody Screen NEGATIVE 11/13/18 11/13/18 11/13/18 04:12 04:12 17:00 WBC 8.6 RBC 2.40 L Hgb 7.9 L Hct 22.8 L MCV 95 MCH 33.0 MCHC 34.8 RDW 17.3 H Plt Count 196 Seg Neutrophils % Not Reportable Lymphocytes % Not Reportable Monocytes % Not Reportable Eosinophils % Not Reportable Basophils % Not Reportable Absolute Neutrophils Not Reportable Absolute Lymphocytes Not Reportable Absolute Monocytes Not Reportable Absolute Eosinophils Not Reportable Absolute Basophils Not Reportable Carbonic Acid HCO3/H2CO3 Ratio ABG pH ABG pCO2 ABG pO2 ABG HCO3 ABG O2 Saturation ABG Base Excess FiO2 Sodium 132.3 L Potassium 3.2 L Chloride 103 Carbon Dioxide 23 Anion Gap 6 BUN 5 L Creatinine 0.36 L Est GFR ( Amer) > 60 Est GFR (Non-Af Amer) > 60 Glucose 89 Lactic Acid 0.9 Calcium 7.6 L Magnesium 2.1 Albumin Blood Type Antibody Screen 11/07/18 11/07/18 11/07/18 08:10 09:57 17:05 Creatine Kinase 89 CK-MB (CK-2) Troponin I Cancelled < 0.012 NT-Pro-B Natriuret Pep Cancelled 172 H 11/07/18 11/07/18 11/07/18 17:05 23:02 23:02 Creatine Kinase 104 CK-MB (CK-2) 0.89 0.92 Troponin I < 0.012 < 0.012 NT-Pro-B Natriuret Pep 11/08/18 11/08/18 05:00 05:00 Creatine Kinase 73 CK-MB (CK-2) 0.68 Troponin I < 0.012 NT-Pro-B Natriuret Pep Impressions: Abdomen/Pelvis CT 11/07/18 10:58 IMPRESSION: 1. There is severe thickening of the terminal ileum, cecum, and proximal transverse colon, consistent with nonspecific infectious or inflammatory colitis. This pattern of inflammation may be seen in inflammatory bowel disease such as Crohn's disease. Correlate for appropriate history of clinical signs and symptoms if present. 2. Hepatomegaly and severe hepatic steatosis. 3. Status post Shanthi-en-Y gastric bypass. 4. Multifocal bilateral geographic ground-glass pulmonary opacity in the included bilateral lung bases, an unusual pattern that can be seen in atypical infection as well as inflammatory pneumonitis such as organizing pneumonia. Chest/Abdomen CTA 11/09/18 09:21 IMPRESSION: 1. Ground-glass opacities and bilateral effusions. Similar appearance to February study, suspect recurrent pulmonary edema. Superimposed consolidation most notable in the left upper lobe. This may reflect pneumonia. 2. No pulmonary embolus. KUB X-Ray 11/13/18 00:00 IMPRESSION: Esophagogastric tube with tip and side port below the diaphragm, likely within a gastric pouch status post Shanthi-en-Y bypass given the configuration of surgical findings. Distended loops of bowel in the mid abdomen are concerning for bowel obstruction. There is no obvious free air in the abdomen on limited supine radiograph. Chest X-Ray 11/13/18 06:00 IMPRESSION: Tip of an enteric tube is at the level of the distal esophagus; consider replacement/advancement. Else, stable. Assessment & Plan - Diagnosis (1) Septic shock Is this a current diagnosis for this admission?: Yes Plan: Patient still requiring IV pressors (2) Metabolic alkalosis Is this a current diagnosis for this admission?: Yes (3) Sacral decubitus ulcer, stage IV Is this a current diagnosis for this admission?: Yes (4) Colitis Is this a current diagnosis for this admission?: Yes (5) Multifocal pneumonia Is this a current diagnosis for this admission?: Yes Plan: Vancomycin discontinued (6) Hemiparesis affecting left side as late effect of cerebrovascular accident Is this a current diagnosis for this admission?: Yes (7) Hypoalbuminemia Is this a current diagnosis for this admission?: Yes (8) Edema due to hypoalbuminemia Is this a current diagnosis for this admission?: Yes (9) Hypokalemia Is this a current diagnosis for this admission?: Yes (10) Acute hypoxemic respiratory failure Is this a current diagnosis for this admission?: Yes Plan: On mechanical ventilation
[2018-11-14] MEDS: IPRATROPIUM/ALBUTEROL 0.5-2.5 MG/3 ML AMPUL NEB SCH ×4 (01:02→20:58)
[2018-11-14] MEDS: FENTANYL CITRATE/PF 600 MCG/60 ML BAG IV PRN ×3 (01:33→22:10)
[2018-11-14 02:12] LABS: ABSOLUTE LYMPHOCYTES (AUTO) 0.5 10^3/uL (0.5-4.7); ABSOLUTE MONOCYTES (AUTO) 0.2 10^3/uL (0.1-1.4); ABSOLUTE NEUT (AUTO) 8.2 10^3/uL (1.7-8.2); EOSINOPHILS % (AUTO) 0.1 % (0-6); MEAN CORPUSCULAR VOLUME 94 fl (80-97); TOTAL CELLS COUNTED % (AUTO) 100 %
[2018-11-14 02:13] LABS: HEMATOCRIT 31.9 % (36.0-47.0); HEMOGLOBIN 11.2 g/dL (12.0-15.5); LYMPHOCYTES % (AUTO) 5.2 % (13-45); MEAN CORPUSCULAR HEMOGLOBIN 32.9 pg (27.0-33.4); MONOCYTES % (AUTO) 1.7 % (3-13); PLATELET COUNT 195 10^3/uL (150-450); RED CELL DISTRIBUTION WIDTH 17.2 % (11.5-14.0); SEGMENTED NEUTROPHILS % (AUTO) 91.3 % (42-78)
[2018-11-14 02:14] LABS: ABSOLUTE BASOPHILS # (AUTO) 0.2 10^3/uL (0.0-0.2); BASOPHILS % (AUTO) 1.7 % (0-2)
[2018-11-14] MEDS: LACTOBACILLUS ACIDOPHILUS 250 MG TAB PO SCH ×2 (05:04→18:15)
[2018-11-14] MEDS: HYDROCORTISONE SOD SUCCINATE INJ/PF 100 MG/2 ML SDV IV SCH ×3 (05:05→21:24)
[2018-11-14] MEDS: FUROSEMIDE INJ/PF 40 MG/4 ML SDV IV SCH (05:05)
[2018-11-14] MEDS: LEVOTHYROXINE SODIUM 0.088 MG TABLET PO SCH (05:07)
[2018-11-14] MEDS: METRONIDAZOLE 500 MG/NS RTU 500 MG/100 ML RTUPB IV SCH ×3 (05:08→18:14)
[2018-11-14 05:42] LABS: ARTERIAL BLOOD BASE EXCESS -3.3 mmol/L; ARTERIAL BLOOD H2CO3 0.92 mmol/L (1.05-1.35); ARTERIAL BLOOD O2 SATURATION 97.6 % (94-98); ARTERIAL BLOOD PCO2 30.5 mmHg (35-45); ARTERIAL BLOOD PH 7.44 (7.35-7.45); ARTERIAL BLOOD PO2 96.7 mmHg (80-100)
[2018-11-14 05:43] LABS: ARTERIAL BLOOD FIO2 40%
[2018-11-14 06:00] LABS: HEMATOCRIT 32.7 % (36.0-47.0); HEMOGLOBIN 11.4 g/dL (12.0-15.5); MEAN CORPUSCULAR HEMOGLOBIN 32.6 pg (27.0-33.4); MEAN CORPUSCULAR HGB CONC 34.8 g/dL (32.0-36.0); MEAN CORPUSCULAR VOLUME 94 fl (80-97); PLATELET COUNT 218 10^3/uL (150-450); RED BLOOD COUNT 3.49 10^6/uL (3.72-5.28); RED CELL DISTRIBUTION WIDTH 17.6 % (11.5-14.0); WHITE BLOOD COUNT 9.6 10^3/uL (4.0-10.5)
[2018-11-14 06:02] LABS: BLOOD UREA NITROGEN 5 mg/dL (7-20); CALCIUM 7.9 mg/dL (8.4-10.2); GLUCOSE 110 mg/dL (75-110); POTASSIUM 3.5 mmol/L (3.6-5.0)
[2018-11-14 06:07] LABS: ANION GAP 6 (5-19); CARBON DIOXIDE 25 mmol/L (22-30); CHLORIDE 107 mmol/L (98-107); SODIUM 137.5 mmol/L (137-145)
[2018-11-14 06:22] LABS: ABSOLUTE LYMPHOCYTES# (MANUAL) 0.6 10^3/uL (0.5-4.7); ABSOLUTE MONOCYTES # (MANUAL) 0.3 10^3/uL (0.1-1.4); ABSOLUTE NEUTROPHILS# (MANUAL) 8.7 10^3/uL (1.7-8.2); BAND NEUTROPHILS % (MANUAL) 2 % (3-5); BASOPHILS % (MANUAL) 0 % (0-2); EOSINOPHILS % (MANUAL) 0 % (0-6); LYMPHOCYTES % (MANUAL) 6 % (13-45); MONOCYTES % (MANUAL) 3 % (3-13); SEGMENTED NEUTROPHILS % (MAN) 89 % (42-78); TOTAL CELLS COUNTED 100
[2018-11-14 06:23] LABS: ANISOCYTOSIS 2+; PLATELET COMMENT ADEQUATE; POLYCHROMASIA 1+; TOXIC GRANULATION SLIGHT
--- NOTE | 2018-11-14 06:30 | RADIOLOGY REPORT (SQ) ---
EXAM DESCRIPTION: XR CHEST 1 VIEW COMPLETED DATE/TME: 11/14/2018 06:00 CLINICAL HISTORY: Respiratory Distress. 48 years Female, resp failure COMPARISON: One day prior. NUMBER OF VIEWS/TECHNIQUE: 1/AP FINDINGS: Adequate appearing endotracheal tube. Adequate appearing enteric tube with tip at the left upper abdominal quadrant. Adequate appearing right subclavian central line. Moderate mixed airspace and interstitial opacities. Normal cardiac silhouette size. No pneumothorax. Stable bony thorax. IMPRESSION: No significant change.
[2018-11-14] MEDS: ACETYLCYSTEINE 20% SOLN 800 MG/4 ML VIAL.NEB NEB SCH ×2 (09:00→20:58)
--- NOTE | 2018-11-14 09:54 | PDOC PROGRESS REPORT ---
Subjective Progress Note for:: 11/14/18 Subjective:: Patient remains to be intubated but off sedation since last night. She is actually awake responded closing her eyes. She had a very good urine output of about 8400 mL for the last 24 hours on Lasix. Her swelling is slowly improving clinically. Reason For Visit: SEPSIS, BILATERAL PNEUMONIA, HYPOTENSION, Physical Exam Vital Signs: Temp Pulse Resp BP Pulse Ox 99.1 F 95 12 102/64 96 11/14/18 06:25 11/14/18 09:00 11/14/18 09:00 11/14/18 06:25 11/14/18 09:00 Intake & Output 11/13/18 11/14/18 11/15/18 06:59 06:59 06:59 Intake Total 2319 2486 Output Total 2745 8400 Balance -426 -4597 Weight 69.6 kg 63.4 kg Exam: General appearance: PRESENT: Still intubated but awake Head exam: PRESENT: atraumatic, normocephalic Eye exam: PRESENT: conjunctiva pale, PERRLA. ABSENT: scleral icterus Neck exam: ABSENT: JVD Respiratory exam: PRESENT: Diminished breath sounds. ABSENT: crackles, rales, rhonchi, unlabored, wheezes Cardiovascular exam: PRESENT: Regular rate rhythm -+S1, +S2. ABSENT: diastolic murmur, systolic murmur GI/Abdominal exam: PRESENT: normal bowel sounds, soft. ABSENT: guarding, mass, tenderness Extremities exam: Decreased bilateral upper and grade 3 bilateral lower extremity pitting edema Neurological exam: PRESENT: alert, awake, closes her eyes when instructed . Skin exam: PRESENT: dry, warm, Results Laboratory Results: 11/14/18 05:00 11/14/18 05:00 11/11/18 11/13/18 11/14/18 17:20 17:00 01:40 WBC 9.0 RBC 3.40 L Hgb 11.2 L D Hct 31.9 L MCV 94 MCH 32.9 MCHC 35.0 RDW 17.2 H Plt Count 195 Seg Neutrophils % 91.3 H Lymphocytes % 5.2 L Monocytes % 1.7 L Eosinophils % 0.1 Basophils % 1.7 Absolute Neutrophils 8.2 Absolute Lymphocytes 0.5 Absolute Monocytes 0.2 Absolute Eosinophils 0.0 Absolute Basophils 0.2 Carbonic Acid HCO3/H2CO3 Ratio ABG pH ABG pCO2 ABG pO2 ABG HCO3 ABG O2 Saturation ABG Base Excess FiO2 Sodium 132.3 L Potassium 3.2 L Chloride 103 Carbon Dioxide 23 Anion Gap 6 BUN 5 L Creatinine 0.36 L Est GFR ( Amer) > 60 Est GFR (Non-Af Amer) > 60 Glucose 89 Lactic Acid Calcium 7.6 L Magnesium 2.1 Blood Type O POSITIVE Antibody Screen NEGATIVE 11/14/18 11/14/18 11/14/18 05:00 05:00 05:00 WBC RBC Hgb Hct MCV MCH MCHC RDW Plt Count Seg Neutrophils % Lymphocytes % Monocytes % Eosinophils % Basophils % Absolute Neutrophils Absolute Lymphocytes Absolute Monocytes Absolute Eosinophils Absolute Basophils Carbonic Acid 0.92 L HCO3/H2CO3 Ratio 21:1 ABG pH 7.44 ABG pCO2 30.5 L ABG pO2 96.7 ABG HCO3 20.0 ABG O2 Saturation 97.6 ABG Base Excess -3.3 FiO2 40% Sodium 137.5 Potassium 3.5 L Chloride 107 Carbon Dioxide 25 Anion Gap 6 BUN 5 L Creatinine 0.41 L Est GFR ( Amer) > 60 Est GFR (Non-Af Amer) > 60 Glucose 110 Lactic Acid 0.7 Calcium 7.9 L Magnesium 2.1 Blood Type Antibody Screen 11/14/18 05:00 WBC 9.6 RBC 3.49 L Hgb 11.4 L Hct 32.7 L MCV 94 MCH 32.6 MCHC 34.8 RDW 17.6 H Plt Count 218 Seg Neutrophils % Not Reportable Lymphocytes % Not Reportable Monocytes % Not Reportable Eosinophils % Not Reportable Basophils % Not Reportable Absolute Neutrophils Not Reportable Absolute Lymphocytes Not Reportable Absolute Monocytes Not Reportable Absolute Eosinophils Not Reportable Absolute Basophils Not Reportable Carbonic Acid HCO3/H2CO3 Ratio ABG pH ABG pCO2 ABG pO2 ABG HCO3 ABG O2 Saturation ABG Base Excess FiO2 Sodium Potassium Chloride Carbon Dioxide Anion Gap BUN Creatinine Est GFR ( Amer) Est GFR (Non-Af Amer) Glucose Lactic Acid Calcium Magnesium Blood Type Antibody Screen 11/07/18 11/07/18 11/07/18 08:10 09:57 17:05 Creatine Kinase 89 CK-MB (CK-2) Troponin I Cancelled < 0.012 NT-Pro-B Natriuret Pep Cancelled 172 H 11/07/18 11/07/18 11/07/18 17:05 23:02 23:02 Creatine Kinase 104 CK-MB (CK-2) 0.89 0.92 Troponin I < 0.012 < 0.012 NT-Pro-B Natriuret Pep 11/08/18 11/08/18 05:00 05:00 Creatine Kinase 73 CK-MB (CK-2) 0.68 Troponin I < 0.012 NT-Pro-B Natriuret Pep Impressions: Abdomen/Pelvis CT 11/07/18 10:58 IMPRESSION: 1. There is severe thickening of the terminal ileum, cecum, and proximal transverse colon, consistent with nonspecific infectious or inflammatory colitis. This pattern of inflammation may be seen in inflammatory bowel disease such as Crohn's disease. Correlate for appropriate history of clinical signs and symptoms if present. 2. Hepatomegaly and severe hepatic steatosis. 3. Status post Shanthi-en-Y gastric bypass. 4. Multifocal bilateral geographic ground-glass pulmonary opacity in the included bilateral lung bases, an unusual pattern that can be seen in atypical infection as well as inflammatory pneumonitis such as organizing pneumonia. Chest/Abdomen CTA 11/09/18 09:21 IMPRESSION: 1. Ground-glass opacities and bilateral effusions. Similar appearance to February study, suspect recurrent pulmonary edema. Superimposed consolidation most notable in the left upper lobe. This may reflect pneumonia. 2. No pulmonary embolus. KUB X-Ray 11/13/18 00:00 IMPRESSION: Esophagogastric tube with tip and side port below the diaphragm, likely within a gastric pouch status post Shanthi-en-Y bypass given the configuration of surgical findings. Distended loops of bowel in the mid abdomen are concerning for bowel obstruction. There is no obvious free air in the abdomen on limited supine radiograph. Chest X-Ray 11/14/18 06:00 IMPRESSION: No significant change. Assessment & Plan - Diagnosis (1) Hyponatremia Is this a current diagnosis for this admission?: Yes Plan: Multifactorial secondary to hypervolemic state, adrenal insufficiency, h ypothyroidism and SSRI. Patient needs real aquapheresis. Significant improvement with diuresis. Her sodium level is now normal. She does not require any of tolvaptan at this point. I actually need to slow down her diuresis at this point to avoid rapid overcorrection for sodium levels. Decrease Lasix to 40 mg IV daily. May decrease further if sodium level tends to go up more. (2) Edema due to hypoalbuminemia Is this a current diagnosis for this admission?: Yes Plan: Patient had received IV albumin for the past 2 days. (3) Gram negative septic shock Is this a current diagnosis for this admission?: Yes (4) UTI (urinary tract infection) Qualifiers: Urinary tract infection type: acute cystitis Is this a current diagnosis for this admission?: Yes Plan: Secondary to Proteus mirabilis, enterococcus, and staph aureus. IV antibiotics modified by Dr. Callaway. (5) Hypokalemia Is this a current diagnosis for this admission?: Yes Plan: Likely due to diuresis. Potassium replacement as needed. (6) Anemia Qualifiers: Anemia type: unspecified type Qualified Code(s): D64.9 - Anemia, unspecified Is this a current diagnosis for this admission?: Yes Plan: Patient did have 4 units blood transfusion for the last 2 days. (7) Sacral decubitus ulcer, stage II Is this a current diagnosis for this admission?: Yes (8) Adrenal insufficiency Is this a current diagnosis for this admission?: Yes Plan: Hydrocortisone was increased while fludrocortisone was discontinued. (9) Hypothyroidism Qualifiers: Hypothyroidism type: unspecified Qualified Code(s): E03.9 - Hypothyroidism, unspecified Is this a current diagnosis for this admission?: Yes (10) Multifocal pneumonia Is this a current diagnosis for this admission?: Yes (11) Colitis Is this a current diagnosis for this admission?: Yes - Notes Notes: Since sodium has been corrected at this point. I will sign off. Please call us if we can be of further help. - Time Time with patient: 15-25 minutes
[2018-11-14] MEDS ORDERED: POTASSI CL 20 MEQ/50 ML RIDER 20 MEQ/50 ML RTUPB IV ONE (10:45)
[2018-11-14] MEDS: OXYCODONE HCL IR 5 MG TABLET PO PRN (10:54)
[2018-11-14] MEDS: TOPIRAMATE 25 MG TABLET PO SCH ×2 (11:14→18:15)
[2018-11-14] MEDS: LEVOFLOXACIN 500 MG/D5W RTU 500 MG/100 ML RTUPB IV SCH (18:14)
[2018-11-14 18:29] LABS: ABSOLUTE BASOPHILS # (AUTO) 0.1 10^3/uL (0.0-0.2); ABSOLUTE EOSINOPHILS # (AUTO) 0.1 10^3/uL (0.0-0.6); ABSOLUTE LYMPHOCYTES (AUTO) 1.6 10^3/uL (0.5-4.7); ABSOLUTE MONOCYTES (AUTO) 0.4 10^3/uL (0.1-1.4); ABSOLUTE NEUT (AUTO) 10.3 10^3/uL (1.7-8.2); BASOPHILS % (AUTO) 1.1 % (0-2); EOSINOPHILS % (AUTO) 0.9 % (0-6); HEMATOCRIT 30.2 % (36.0-47.0); HEMOGLOBIN 10.5 g/dL (12.0-15.5); LYMPHOCYTES % (AUTO) 12.7 % (13-45); MEAN CORPUSCULAR HEMOGLOBIN 32.8 pg (27.0-33.4); MEAN CORPUSCULAR HGB CONC 34.7 g/dL (32.0-36.0); MEAN CORPUSCULAR VOLUME 95 fl (80-97); MONOCYTES % (AUTO) 3.1 % (3-13); PLATELET COUNT 229 10^3/uL (150-450); RED BLOOD COUNT 3.19 10^6/uL (3.72-5.28); RED CELL DISTRIBUTION WIDTH 17.5 % (11.5-14.0); SEGMENTED NEUTROPHILS % (AUTO) 82.2 % (42-78); TOTAL CELLS COUNTED % (AUTO) 100 %; WHITE BLOOD COUNT 12.5 10^3/uL (4.0-10.5)
[2018-11-14 18:37] LABS: ALANINE AMINOTRANSFERASE 35 U/L (9-52); ALBUMIN 2.1 g/dL (3.5-5.0); ALKALINE PHOSPHATASE 122 U/L (38-126); ASPARTATE AMINO TRANSFERASE 28 U/L (14-36); BILIRUBIN,DIRECT 0.5 mg/dL (0.0-0.4); BILIRUBIN,TOTAL 0.8 mg/dL (0.2-1.3); BLOOD UREA NITROGEN 7 mg/dL (7-20); CALCIUM 7.8 mg/dL (8.4-10.2); GLUCOSE 69 mg/dL (75-110); POTASSIUM 3.3 mmol/L (3.6-5.0)
[2018-11-14 18:42] LABS: CARBON DIOXIDE 28 mmol/L (22-30); CHLORIDE 109 mmol/L (98-107); SODIUM 140.7 mmol/L (137-145)
[2018-11-14 18:45] LABS: ANION GAP 4 (5-19)
--- NOTE | 2018-11-14 22:12 | PDOC PROGRESS REPORT ---
Subjective Progress Note for:: 11/14/18 Subjective:: Patient is alert, extubated Reason For Visit: SEPSIS, BILATERAL PNEUMONIA, HYPOTENSION, Physical Exam Vital Signs: Temp Pulse Resp BP Pulse Ox 100.0 F 103 H 21 H 108/66 99 11/14/18 20:00 11/14/18 20:58 11/14/18 20:58 11/14/18 18:35 11/14/18 20:58 Intake & Output 11/13/18 11/14/18 11/15/18 06:59 06:59 06:59 Intake Total 2319 3036 1161 Output Total 2745 8400 1250 Balance -426 -5364 -89 Weight 69.6 kg 63.4 kg General appearance: PRESENT: no acute distress Eye exam: PRESENT: PERRLA Respiratory exam: PRESENT: rhonchi Cardiovascular exam: PRESENT: +S1, +S2 GI/Abdominal exam: PRESENT: soft Neurological exam: PRESENT: alert Results Laboratory Results: 11/14/18 18:00 11/14/18 18:00 11/14/18 11/14/18 11/14/18 01:40 05:00 05:00 WBC 9.0 RBC 3.40 L Hgb 11.2 L D Hct 31.9 L MCV 94 MCH 32.9 MCHC 35.0 RDW 17.2 H Plt Count 195 Seg Neutrophils % 91.3 H Lymphocytes % 5.2 L Monocytes % 1.7 L Eosinophils % 0.1 Basophils % 1.7 Absolute Neutrophils 8.2 Absolute Lymphocytes 0.5 Absolute Monocytes 0.2 Absolute Eosinophils 0.0 Absolute Basophils 0.2 Carbonic Acid 0.92 L HCO3/H2CO3 Ratio 21:1 ABG pH 7.44 ABG pCO2 30.5 L ABG pO2 96.7 ABG HCO3 20.0 ABG O2 Saturation 97.6 ABG Base Excess -3.3 FiO2 40% Sodium 137.5 Potassium 3.5 L Chloride 107 Carbon Dioxide 25 Anion Gap 6 BUN 5 L Creatinine 0.41 L Est GFR ( Amer) > 60 Est GFR (Non-Af Amer) > 60 Glucose 110 Lactic Acid Calcium 7.9 L Magnesium 2.1 Total Bilirubin AST ALT Alkaline Phosphatase Total Protein Albumin 11/14/18 11/14/18 11/14/18 05:00 05:00 18:00 WBC 9.6 RBC 3.49 L Hgb 11.4 L Hct 32.7 L MCV 94 MCH 32.6 MCHC 34.8 RDW 17.6 H Plt Count 218 Seg Neutrophils % Not Reportable Lymphocytes % Not Reportable Monocytes % Not Reportable Eosinophils % Not Reportable Basophils % Not Reportable Absolute Neutrophils Not Reportable Absolute Lymphocytes Not Reportable Absolute Monocytes Not Reportable Absolute Eosinophils Not Reportable Absolute Basophils Not Reportable Carbonic Acid HCO3/H2CO3 Ratio ABG pH ABG pCO2 ABG pO2 ABG HCO3 ABG O2 Saturation ABG Base Excess FiO2 Sodium 140.7 Potassium 3.3 L Chloride 109 H Carbon Dioxide 28 Anion Gap 4 L BUN 7 Creatinine 0.40 L Est GFR ( Amer) > 60 Est GFR (Non-Af Amer) > 60 Glucose 69 L Lactic Acid 0.7 Calcium 7.8 L Magnesium 2.2 Total Bilirubin 0.8 AST 28 ALT 35 Alkaline Phosphatase 122 Total Protein 4.0 L Albumin 2.1 L 11/14/18 18:00 WBC 12.5 H RBC 3.19 L Hgb 10.5 L Hct 30.2 L MCV 95 MCH 32.8 MCHC 34.7 RDW 17.5 H Plt Count 229 Seg Neutrophils % 82.2 H Lymphocytes % 12.7 L Monocytes % 3.1 Eosinophils % 0.9 Basophils % 1.1 Absolute Neutrophils 10.3 H Absolute Lymphocytes 1.6 Absolute Monocytes 0.4 Absolute Eosinophils 0.1 Absolute Basophils 0.1 Carbonic Acid HCO3/H2CO3 Ratio ABG pH ABG pCO2 ABG pO2 ABG HCO3 ABG O2 Saturation ABG Base Excess FiO2 Sodium Potassium Chloride Carbon Dioxide Anion Gap BUN Creatinine Est GFR ( Amer) Est GFR (Non-Af Amer) Glucose Lactic Acid Calcium Magnesium Total Bilirubin AST ALT Alkaline Phosphatase Total Protein Albumin 11/07/18 11/07/18 11/07/18 08:10 09:57 17:05 Creatine Kinase 89 CK-MB (CK-2) Troponin I Cancelled < 0.012 NT-Pro-B Natriuret Pep Cancelled 172 H 11/07/18 11/07/18 11/07/18 17:05 23:02 23:02 Creatine Kinase 104 CK-MB (CK-2) 0.89 0.92 Troponin I < 0.012 < 0.012 NT-Pro-B Natriuret Pep 11/08/18 11/08/18 05:00 05:00 Creatine Kinase 73 CK-MB (CK-2) 0.68 Troponin I < 0.012 NT-Pro-B Natriuret Pep Impressions: Abdomen/Pelvis CT 11/07/18 10:58 IMPRESSION: 1. There is severe thickening of the terminal ileum, cecum, and proximal transverse colon, consistent with nonspecific infectious or inflam matory colitis. This pattern of inflammation may be seen in inflammatory bowel disease such as Crohn's disease. Correlate for appropriate history of clinical signs and symptoms if present. 2. Hepatomegaly and severe hepatic steatosis. 3. Status post Shanthi-en-Y gastric bypass. 4. Multifocal bilateral geographic ground-glass pulmonary opacity in the included bilateral lung bases, an unusual pattern that can be seen in atypical infection as well as inflammatory pneumonitis such as organizing pneumonia. Chest/Abdomen CTA 11/09/18 09:21 IMPRESSION: 1. Ground-glass opacities and bilateral effusions. Similar appearance to February study, suspect recurrent pulmonary edema. Superimposed consolidation most notable in the left upper lobe. This may reflect pneumonia. 2. No pulmonary embolus. KUB X-Ray 11/13/18 00:00 IMPRESSION: Esophagogastric tube with tip and side port below the diaphragm, likely within a gastric pouch status post Shanthi-en-Y bypass given the configuration of surgical findings. Distended loops of bowel in the mid abdomen are concerning for bowel obstruction. There is no obvious free air in the abdomen on limited supine radiograph. Chest X-Ray 11/14/18 06:00 IMPRESSION: No significant change. Assessment & Plan - Diagnosis (1) Septic shock Is this a current diagnosis for this admission?: Yes Plan: improved (2) Metabolic alkalosis Is this a current diagnosis for this admission?: Yes (3) Sacral decubitus ulcer, stage IV Is this a current diagnosis for this admission?: Yes (4) Colitis Is this a current diagnosis for this admission?: Yes (5) Multifocal pneumonia Is this a current diagnosis for this admission?: Yes Plan: continue antibiotic (6) Hemiparesis affecting left side as late effect of cerebrovascular accident Is this a current diagnosis for this admission?: Yes (7) Hypoalbuminemia Is this a current diagnosis for this admission?: Yes Plan: ? liver disease (8) Edema due to hypoalbuminemia Is this a current diagnosis for this admission?: Yes (9) Hypokalemia Is this a current diagnosis for this admission?: Yes (10) Acute hypoxemic respiratory failure Is this a current diagnosis for this admission?: Yes
[2018-11-15] MEDS: METRONIDAZOLE 500 MG/NS RTU 500 MG/100 ML RTUPB IV SCH ×2 (00:16→05:22)
[2018-11-15] MEDS: IPRATROPIUM/ALBUTEROL 0.5-2.5 MG/3 ML AMPUL NEB SCH ×4 (03:38→20:31)
[2018-11-15 04:47] LABS: ARTERIAL BLOOD BASE EXCESS -0.5 mmol/L; ARTERIAL BLOOD H2CO3 1.12 mmol/L (1.05-1.35); ARTERIAL BLOOD HCO3 23.8 mmol/L (20-24); ARTERIAL BLOOD O2 SATURATION 97.7 % (94-98); ARTERIAL BLOOD PCO2 37.2 mmHg (35-45); ARTERIAL BLOOD PH 7.42 (7.35-7.45); ARTERIAL BLOOD PO2 100.9 mmHg (80-100); ARTERIAL BLOOD TOTAL CO2 24.9 mmol/L (21-25)
[2018-11-15 04:49] LABS: ARTERIAL BLOOD FIO2 50%
[2018-11-15 04:54] LABS: HEMATOCRIT 30.7 % (36.0-47.0); HEMOGLOBIN 10.5 g/dL (12.0-15.5); MEAN CORPUSCULAR HEMOGLOBIN 32.8 pg (27.0-33.4); MEAN CORPUSCULAR HGB CONC 34.3 g/dL (32.0-36.0); MEAN CORPUSCULAR VOLUME 96 fl (80-97); PLATELET COUNT 220 10^3/uL (150-450); RED BLOOD COUNT 3.21 10^6/uL (3.72-5.28); RED CELL DISTRIBUTION WIDTH 17.8 % (11.5-14.0); WHITE BLOOD COUNT 11.2 10^3/uL (4.0-10.5)
[2018-11-15 05:02] LABS: ANION GAP 8 (5-19); BLOOD UREA NITROGEN 8 mg/dL (7-20); CALCIUM 7.9 mg/dL (8.4-10.2); CARBON DIOXIDE 24 mmol/L (22-30); CHLORIDE 110 mmol/L (98-107); GLUCOSE 79 mg/dL (75-110); POTASSIUM 3.5 mmol/L (3.6-5.0); SODIUM 141.8 mmol/L (137-145)
[2018-11-15 05:24] LABS: ABSOLUTE LYMPHOCYTES# (MANUAL) 1.2 10^3/uL (0.5-4.7); ABSOLUTE MONOCYTES # (MANUAL) 0.4 10^3/uL (0.1-1.4); ABSOLUTE NEUTROPHILS# (MANUAL) 9.5 10^3/uL (1.7-8.2); ANISOCYTOSIS 1+; BAND NEUTROPHILS % (MANUAL) 2 % (3-5); BASOPHILS % (MANUAL) 0 % (0-2); EOSINOPHILS % (MANUAL) 0 % (0-6); LYMPHOCYTES % (MANUAL) 11 % (13-45); MONOCYTES % (MANUAL) 4 % (3-13); PLATELET COMMENT ADEQUATE; SEGMENTED NEUTROPHILS % (MAN) 83 % (42-78); TOTAL CELLS COUNTED 100; TOXIC GRANULATION SLIGHT; TOXIC VACUOLATION PRESENT
[2018-11-15] MEDS: HYDROCORTISONE SOD SUCCINATE INJ/PF 100 MG/2 ML SDV IV SCH ×3 (05:28→21:59)
[2018-11-15] MEDS: FUROSEMIDE INJ/PF 40 MG/4 ML SDV IV SCH (05:28)
[2018-11-15] MEDS: LACTOBACILLUS ACIDOPHILUS 250 MG TAB PO SCH ×2 (05:28→17:43)
[2018-11-15] MEDS: LEVOTHYROXINE SODIUM 0.088 MG TABLET PO SCH (05:29)
--- NOTE | 2018-11-15 08:26 | RADIOLOGY REPORT (SQ) ---
EXAM DESCRIPTION: CHEST SINGLE VIEW COMPLETED DATE/TIME: 11/15/2018 7:14 am REASON FOR STUDY: resp failure COMPARISON: 11/14/2018. FINDINGS: Single-view chest AP portable upright approximately 0648 hours. Right subclavian line remains in place. Endotracheal and nasogastric tubes have been removed. Hazy mixed airspace and interstitial opacities diffusely throughout both lungs, progressive since yes terday. TECHNICAL DOCUMENTATION: JOB ID: [id number] Reading location - IP/workstation name: [email or web address]
[2018-11-15] MEDS: ACETYLCYSTEINE 20% SOLN 800 MG/4 ML VIAL.NEB NEB SCH ×2 (10:37→20:31)
--- NOTE | 2018-11-15 10:46 | PDOC PROGRESS REPORT ---
Subjective Progress Note for:: 11/15/18 Subjective:: Post extubation, patient experience episode of oxygen desaturation overnight due to over sedation with IV Fentanyl administration for pain management. She is currently awake and appropriate in responses off the infusion. She is currently on non-rebreathing face mask support. She reported intermittent back pain and pain from her stage 3 pressure ulcer on her buttock. No chest pain. No fever or chills. Awaiting swallowing evaluation to start oral feeding. Family at bedside. Reason For Visit: SEPSIS, BILATERAL PNEUMONIA, HYPOTENSION, Physical Exam Vital Signs: Temp Pulse Resp BP Pulse Ox 98.8 F 98 19 130/76 H 98 11/15/18 08:00 11/15/18 09:14 11/15/18 09:14 11/15/18 08:00 11/15/18 09:14 Intake & Output 11/14/18 11/15/18 11/16/18 06:59 06:59 06:59 Intake Total 3036 1361 Output Total 8400 1790 1100 Balance -5364 -429 -1100 Weight 63.4 kg 61.6 kg General appearance: PRESENT: no acute distress Head exam: PRESENT: atraumatic, normocephalic Eye exam: PRESENT: conjunctiva pink, EOMI, PERRLA. ABSENT: scleral icterus Ear exam: PRESENT: normal external ear exam Mouth exam: PRESENT: moist Respiratory exam: PRESENT: clear to auscultation rona, decreased breath sounds - at lung bases Cardiovascular exam: PRESENT: RRR, +S1, +S2. ABSENT: diastolic murmur, systolic murmur Vascular exam: ABSENT: pallor GI/Abdominal exam: PRESENT: normal bowel sounds, soft. ABSENT: distended, guarding, mass, organolmegaly, rebound, tenderness Extremities exam: PRESENT: pedal edema - minimal pitting Neurological exam: PRESENT: alert, awake, oriented to person, oriented to place, oriented to time, oriented to situation, CN II-XII grossly intact. ABSENT: motor sensory deficit Psychiatric exam: PRESENT: appropriate affect, normal mood. ABSENT: homicidal ideation, suicidal ideation Skin exam: PRESENT: dry, warm, other - resolving ecchymotic lesions on upper extrmities and pressure ulcers on heel of left foot and sacral region. Results Laboratory Results: 11/15/18 04:20 11/15/18 04:20 11/14/18 11/14/18 11/15/18 18:00 18:00 04:20 WBC 12.5 H RBC 3.19 L Hgb 10.5 L Hct 30.2 L MCV 95 MCH 32.8 MCHC 34.7 RDW 17.5 H Plt Count 229 Seg Neutrophils % 82.2 H Lymphocytes % 12.7 L Monocytes % 3.1 Eosinophils % 0.9 Basophils % 1.1 Absolute Neutrophils 10.3 H Absolute Lymphocytes 1.6 Absolute Monocytes 0.4 Absolute Eosinophils 0.1 Absolute Basophils 0.1 Carbonic Acid HCO3/H2CO3 Ratio ABG pH ABG pCO2 ABG pO2 ABG HCO3 ABG O2 Saturation ABG Base Excess FiO2 Sodium 140.7 141.8 Potassium 3.3 L 3.5 L Chloride 109 H 110 H Carbon Dioxide 28 24 Anion Gap 4 L 8 BUN 7 8 Creatinine 0.40 L 0.43 L Est GFR ( Amer) > 60 > 60 Est GFR (Non-Af Amer) > 60 > 60 Glucose 69 L 79 Calcium 7.8 L 7.9 L Magnesium 2.2 2.2 Total Bilirubin 0.8 AST 28 ALT 35 Alkaline Phosphatase 122 Total Protein 4.0 L Albumin 2.1 L 11/15/18 11/15/18 04:20 04:20 WBC 11.2 H RBC 3.21 L Hgb 10.5 L Hct 30.7 L MCV 96 MCH 32.8 MCHC 34.3 RDW 17.8 H Plt Count 220 Seg Neutrophils % Not Reportable Lymphocytes % Not Reportable Monocytes % Not Reportable Eosinophils % Not Reportable Basophils % Not Reportable Absolute Neutrophils Not Reportable Absolute Lymphocytes Not Reportable Absolute Monocytes Not Reportable Absolute Eosinophils Not Reportable Absolute Basophils Not Reportable Carbonic Acid 1.12 HCO3/H2CO3 Ratio 21:1 ABG pH 7.42 ABG pCO2 37.2 ABG pO2 100.9 H ABG HCO3 23.8 ABG O2 Saturation 97.7 ABG Base Excess -0.5 FiO2 50% Sodium Potassium Chloride Carbon Dioxide Anion Gap BUN Creatinine Est GFR ( Amer) Est GFR (Non-Af Amer) Glucose Calcium Magnesium Total Bilirubin AST ALT Alkaline Phosphatase Total Protein Albumin 11/07/18 11/07/18 11/07/18 08:10 09:57 17:05 Creatine Kinase 89 CK-MB (CK-2) Troponin I Cancelled < 0.012 NT-Pro-B Natriuret Pep Cancelled 172 H 11/07/18 11/07/18 11/07/18 17:05 23:02 23:02 Creatine Kinase 104 CK-MB (CK-2) 0.89 0.92 Troponin I < 0.012 < 0.012 NT-Pro-B Natriuret Pep 11/08/18 11/08/18 05:00 05:00 Creatine Kinase 73 CK-MB (CK-2) 0.68 Troponin I < 0.012 NT-Pro-B Natriuret Pep Impressions: Abdomen/Pelvis CT 11/07/18 10:58 IMPRESSION: 1. There is severe thickening of the terminal ileum, cecum, and proximal transverse colon, consistent with nonspecific infectious or inflammatory colitis. This pattern of inflammation may be seen in inflammatory bowel disease such as Crohn's disease. Correlate for appropriate history of clinical signs and symptoms if present. 2. Hepatomegaly and severe hepatic steatosis. 3. Status post Shanthi-en-Y gastric bypass. 4. Multifocal bilateral geographic ground-glass pulmonary opacity in the included bilateral lung bases, an unusual pattern that can be seen in atypical infection as well as inflammatory pneumonitis such as organizing pneumonia. Chest/Abdomen CTA 11/09/18 09:21 IMPRESSION: 1. Ground-glass opacities and bilateral effusions. Similar appearance to February study, suspect recurrent pulmonary edema. Superimposed consolidation most notable in the left upper lobe. This may reflect pneumonia. 2. No pulmonary embolus. KUB X-Ray 11/13/18 00:00 IMPRESSION: Esophagogastric tube with tip and side port below the diaphragm, likely within a gastric pouch status post Shanthi-en-Y bypass given the configuration of surgical findings. Distended loops of bowel in the mid abdomen are concerning for bowel obstruction. There is no obvious free air in the abdomen on limited supine radiograph. Assessment & Plan - Diagnosis (1) Pneumonia Qualifiers: Pneumonia type: due to unspecified organism Laterality: unspecified laterality Lung location: unspecified part of lung Qualified Code(s): J18.9 - Pneumonia, unspecified organism Is this a current diagnosis for this admission?: Yes Plan: Continue IV Levofloxacin coverage. (2) Acute hypoxemic respiratory failure Is this a current diagnosis for this admission?: Yes Plan: Post extubation. Continue supplemental oxygen usage and down grade to nasal cannula as tolerated. (3) UTI (urinary tract infection) Qualifiers: Urinary tract infection type: acute cystitis Is this a current diagnosis for this admission?: Yes Plan: Her Enterococcus Faecalis is currently not covered with antibiotic therapy. She received IV Vancomycin overage. (4) Sacral decubitus ulcer, stage IV Is this a current diagnosis for this admission?: Yes Plan: Her Enterococcus Faecalis is currently not covered with antibiotic therapy. She received IV Vancomycin overage. Continue current wound management dressing. (5) Decubitus ulcer of left heel Qualifiers: Pressure injury stage: stage 2 Qualified Code(s): L89.622 - Pressure ulcer of left heel, stage 2 Is this a current diagnosis for this admission?: Yes Plan: Continue current wound management dressing. (6) Chronic pain Qualifiers: Chronic pain type: chronic pain syndrome Qualified Code(s): G89.4 - Chronic pain syndrome Is this a current diagnosis for this admission?: Yes Plan: Start on IV Morphine 1 mg q4 hours prn for pain management. - Time Time Spent with patient: 25-34 minutes Medications reviewed and adjusted accordingly: Yes Anticipated discharge: Home with Homehealth Within: Other - Inpatient Certification Based on my medical assessment, after consideration of the patient's comorbidities, presenting symptoms, or acuity I expect that the services needed warrant INPATIENT care.: Yes I certify that my determination is in accordance with my understanding of Medicare's requirements for reasonable and necessary INPATIENT services [42 CFR 412.3e].: Yes Medical Necessity: Need Close Monitoring Due to Risk of Patient Decompensation, Need For IV Fluids, Need For Continuous Telemetry Monitoring, Need for IV Antibiotics, Risk of Complication if Not Cared For in Hospital Post Hospital Care: D/C [employer] Documentation - Plan Summary Plan Summary: See covering attending physician orders as per above outlined care plan.
[2018-11-15] MEDS: OXYCODONE HCL IR 5 MG TABLET PO PRN ×2 (11:12→17:43)
[2018-11-15] MEDS: TOPIRAMATE 25 MG TABLET PO SCH ×2 (11:13→17:43)
[2018-11-15] MEDS: POTASSI CL 20 MEQ/50 ML RIDER 20 MEQ/50 ML RTUPB IV SCH ×2 (16:44→17:42)
[2018-11-15] MEDS: LEVOFLOXACIN 500 MG/D5W RTU 500 MG/100 ML RTUPB IV SCH (16:44)
[2018-11-15 20:08] LABS: ANION GAP 7 (5-19); BLOOD UREA NITROGEN 9 mg/dL (7-20); CALCIUM 8.1 mg/dL (8.4-10.2); CARBON DIOXIDE 27 mmol/L (22-30); CHLORIDE 108 mmol/L (98-107); GLUCOSE 66 mg/dL (75-110); POTASSIUM 3.3 mmol/L (3.6-5.0); SODIUM 142.4 mmol/L (137-145)
[2018-11-15 20:36] LABS: HEMATOCRIT 31.1 % (36.0-47.0); HEMOGLOBIN 10.7 g/dL (12.0-15.5); MEAN CORPUSCULAR HEMOGLOBIN 32.5 pg (27.0-33.4); MEAN CORPUSCULAR HGB CONC 34.4 g/dL (32.0-36.0); MEAN CORPUSCULAR VOLUME 95 fl (80-97); PLATELET COUNT 229 10^3/uL (150-450); RED BLOOD COUNT 3.28 10^6/uL (3.72-5.28); RED CELL DISTRIBUTION WIDTH 17.6 % (11.5-14.0); WHITE BLOOD COUNT 12.6 10^3/uL (4.0-10.5)
[2018-11-15 20:50] LABS: ABSOLUTE MONOCYTES # (MANUAL) 0.3 10^3/uL (0.1-1.4); ABSOLUTE NEUTROPHILS# (MANUAL) 11.3 10^3/uL (1.7-8.2); BASOPHILS % (MANUAL) 0 % (0-2); EOSINOPHILS % (MANUAL) 0 % (0-6); LYMPHOCYTES % (MANUAL) 8 % (13-45); MONOCYTES % (MANUAL) 2 % (3-13); POLYCHROMASIA 1+; SEGMENTED NEUTROPHILS % (MAN) 90 % (42-78); TOTAL CELLS COUNTED 100
[2018-11-15 20:51] LABS: ANISOCYTOSIS 1+; PLATELET COMMENT ADEQUATE
[2018-11-15] MEDS: POTASSI CL 20 MEQ/NS 1L 1,000 ML IV PRN (22:00)
[2018-11-15] MEDS: ACETAMINOPHEN 325 MG TABLET PO PRN (22:00)
[2018-11-15 23:59] LABS: ANION GAP 6 (5-19); BLOOD UREA NITROGEN 9 mg/dL (7-20); CARBON DIOXIDE 25 mmol/L (22-30); CHLORIDE 108 mmol/L (98-107); GLUCOSE 73 mg/dL (75-110); POTASSIUM 3.4 mmol/L (3.6-5.0); SODIUM 139.2 mmol/L (137-145)
[2018-11-16] MEDS: POTASSIUM CHLORIDE 20 MEQ/50 ML RTU IV SCH ×2 (00:36→02:38)
[2018-11-16] MEDS: OXYCODONE HCL IR 5 MG TABLET PO PRN ×2 (01:15→13:44)
[2018-11-16] MEDS: IPRATROPIUM/ALBUTEROL 0.5-2.5 MG/3 ML AMPUL NEB SCH ×4 (02:16→20:34)
[2018-11-16] MEDS: FUROSEMIDE INJ/PF 40 MG/4 ML SDV IV SCH (05:13)
[2018-11-16] MEDS: LEVOTHYROXINE SODIUM 0.088 MG TABLET PO SCH (05:14)
[2018-11-16] MEDS: HYDROCORTISONE SOD SUCCINATE INJ/PF 100 MG/2 ML SDV IV SCH ×3 (05:14→22:29)
[2018-11-16] MEDS: LACTOBACILLUS ACIDOPHILUS 250 MG TAB PO SCH ×2 (05:14→17:03)
[2018-11-16 05:21] LABS: HEMATOCRIT 29.5 % (36.0-47.0); HEMOGLOBIN 10.1 g/dL (12.0-15.5); MEAN CORPUSCULAR HEMOGLOBIN 32.8 pg (27.0-33.4); MEAN CORPUSCULAR HGB CONC 34.2 g/dL (32.0-36.0); MEAN CORPUSCULAR VOLUME 96 fl (80-97); PLATELET COUNT 219 10^3/uL (150-450); RED BLOOD COUNT 3.08 10^6/uL (3.72-5.28); RED CELL DISTRIBUTION WIDTH 17.8 % (11.5-14.0); WHITE BLOOD COUNT 11.3 10^3/uL (4.0-10.5)
[2018-11-16 05:38] LABS: ABSOLUTE LYMPHOCYTES# (MANUAL) 0.8 10^3/uL (0.5-4.7); ABSOLUTE MONOCYTES # (MANUAL) 0.5 10^3/uL (0.1-1.4); ABSOLUTE NEUTROPHILS# (MANUAL) 10.1 10^3/uL (1.7-8.2); BASOPHILS % (MANUAL) 0 % (0-2); EOSINOPHILS % (MANUAL) 0 % (0-6); LYMPHOCYTES % (MANUAL) 7 % (13-45); MONOCYTES % (MANUAL) 4 % (3-13); SEGMENTED NEUTROPHILS % (MAN) 89 % (42-78); TOTAL CELLS COUNTED 100
[2018-11-16 05:39] LABS: ANISOCYTOSIS 1+; PLATELET COMMENT ADEQUATE; POLYCHROMASIA 1+
[2018-11-16 05:48] LABS: BLOOD UREA NITROGEN 10 mg/dL (7-20); CALCIUM 8.1 mg/dL (8.4-10.2); GLUCOSE 76 mg/dL (75-110)
[2018-11-16 05:54] LABS: CARBON DIOXIDE 27 mmol/L (22-30); CHLORIDE 110 mmol/L (98-107)
[2018-11-16 06:00] LABS: ARTERIAL BLOOD BASE EXCESS 0.6 mmol/L; ARTERIAL BLOOD H2CO3 0.99 mmol/L (1.05-1.35); ARTERIAL BLOOD HCO3 23.7 mmol/L (20-24); ARTERIAL BLOOD O2 SATURATION 96.7 % (94-98); ARTERIAL BLOOD PH 7.47 (7.35-7.45); ARTERIAL BLOOD PO2 81.5 mmHg (80-100); ARTERIAL BLOOD TOTAL CO2 24.7 mmol/L (21-25)
[2018-11-16 06:04] LABS: ARTERIAL BLOOD FIO2 40%
[2018-11-16 06:20] LABS: ANION GAP 4 (5-19); POTASSIUM 4.4 mmol/L (3.6-5.0)
--- NOTE | 2018-11-16 06:47 | RADIOLOGY REPORT (SQ) ---
EXAM DESCRIPTION: XR CHEST 1 VIEW COMPLETED DATE/TME: 11/16/2018 06:00 CLINICAL HISTORY: 48 years Female, pna COMPARISON: One day prior. NUMBER OF VIEWS/TECHNIQUE: 1/AP FINDINGS: Moderate mixed airspace and interstitial opacities. Adequate appearing right subclavian central line. Normal cardiac silhouette size. No pneumothorax. Stable bony thorax. IMPRESSION: No significant change.
[2018-11-16] MEDS: TOPIRAMATE 25 MG TABLET PO SCH ×3 (07:56→17:05)
[2018-11-16] MEDS: ACETYLCYSTEINE 20% SOLN 800 MG/4 ML VIAL.NEB NEB SCH ×2 (09:19→20:34)
--- NOTE | 2018-11-16 10:08 | PDOC PROGRESS REPORT ---
Subjective Progress Note for:: 11/16/18 Subjective:: Patient reported single episode of fever last night that resolved with administration of Tylenol. Remain on IV Levofloxacin coverage. No chest pain. Tolerated oral clear liquid intake. Family at bedside. Reason For Visit: SEPSIS, BILATERAL PNEUMONIA, HYPOTENSION, Physical Exam Vital Signs: Temp Pulse Resp BP Pulse Ox 98.6 F 99 40 H 133/88 H 96 11/16/18 08:00 11/16/18 08:00 11/16/18 08:00 11/16/18 08:00 11/16/18 08:00 Intake & Output 11/15/18 11/16/18 11/17/18 06:59 06:59 06:59 Intake Total 1561 456 Output Total 1790 2470 540 Balance - Weight 61.6 kg 60.7 kg Physical Exam: General appearance: PRESENT: no acute distress Head exam: PRESENT: atraumatic, normocephalic Eye exam: PRESENT: conjunctiva pink, EOMI, PERRLA. ABSENT: pallor, scleral icterus Ear exam: PRESENT: normal external ear exam Mouth exam: PRESENT: moist Respiratory exam: PRESENT: clear to auscultation rona, decreased breath sounds - at lung bases Cardiovascular exam: PRESENT: RRR, +S1, +S2. ABSENT: diastolic murmur, systolic murmur GI/Abdominal exam: PRESENT: normal bowel sounds, soft. ABSENT: distended, guarding, mass, organomegaly, rebound, tenderness Extremities exam: PRESENT: pedal edema - minimal pitting Neurological exam: PRESENT: alert, awake, oriented to person, oriented to place, oriented to time, oriented to situation, CN II-XII grossly intact. ABSENT: motor sensory deficit Psychiatric exam: PRESENT: appropriate affect, normal mood. ABSENT: homicidal ideation, suicidal ideation Skin exam: PRESENT: dry, warm, other - resolving ecchymotic lesions on upper extremities and pressure ulcers on heel of left foot and sacral region. Results Laboratory Results: 11/16/18 05:10 11/16/18 05:10 11/15/18 11/15/18 11/15/18 19:26 20:16 23:05 WBC 12.6 H RBC 3.28 L Hgb 10.7 L Hct 31.1 L MCV 95 MCH 32.5 MCHC 34.4 RDW 17.6 H Plt Count 229 Seg Neutrophils % Not Reportable Lymphocytes % Not Reportable Monocytes % Not Reportable Eosinophils % Not Reportable Basophils % Not Reportable Absolute Neutrophils Not Reportable Absolute Lymphocytes Not Reportable Absolute Monocytes Not Reportable Absolute Eosinophils Not Reportable Absolute Basophils Not Reportable Carbonic Acid HCO3/H2CO3 Ratio ABG pH ABG pCO2 ABG pO2 ABG HCO3 ABG O2 Saturation ABG Base Excess FiO2 Sodium 142.4 139.2 Potassium 3.3 L 3.4 L Chloride 108 H 108 H Carbon Dioxide 27 25 Anion Gap 7 6 BUN 9 9 Creatinine 0.42 L 0.37 L Est GFR ( Amer) > 60 > 60 Est GFR (Non-Af Amer) > 60 > 60 Glucose 66 L 73 L Calcium 8.1 L 8.0 L Magnesium 2.1 11/16/18 11/16/18 11/16/18 05:10 05:10 05:45 WBC 11.3 H RBC 3.08 L Hgb 10.1 L Hct 29.5 L MCV 96 MCH 32.8 MCHC 34.2 RDW 17.8 H Plt Count 219 Seg Neutrophils % Not Reportable Lymphocytes % Not Reportable Monocytes % Not Reportable Eosinophils % Not Reportable Basophils % Not Reportable Absolute Neutrophils Not Reportable Absolute Lymphocytes Not Reportable Absolute Monocytes Not Reportable Absolute Eosinophils Not Reportable Absolute Basophils Not Reportable Carbonic Acid 0.99 L HCO3/H2CO3 Ratio 23:1 ABG pH 7.47 H ABG pCO2 33.0 L ABG pO2 81.5 ABG HCO3 23.7 ABG O2 Saturation 96.7 ABG Base Excess 0.6 FiO2 40% Sodium 141.0 Potassium 4.4 D Chloride 110 H Carbon Dioxide 27 Anion Gap 4 L BUN 10 Creatinine 0.39 L Est GFR ( Amer) > 60 Est GFR (Non-Af Amer) > 60 Glucose 76 Calcium 8.1 L Magnesium 2.2 11/07/18 11/07/18 11/07/18 08:10 09:57 17:05 Creatine Kinase 89 CK-MB (CK-2) Troponin I Cancelled < 0.012 NT-Pro-B Natriuret Pep Cancelled 172 H 11/07/18 11/07/18 11/07/18 17:05 23:02 23:02 Creatine Kinase 104 CK-MB (CK-2) 0.89 0.92 Troponin I < 0.012 < 0.012 NT-Pro-B Natriuret Pep 11/08/18 11/08/18 05:00 05:00 Creatine Kinase 73 CK-MB (CK-2) 0.68 Troponin I < 0.012 NT-Pro-B Natriuret Pep Impressions: Abdomen/Pelvis CT 11/07/18 10:58 IMPRESSION: 1. There is severe thickening of the terminal ileum, cecum, and proximal transverse colon, consistent with nonspecific infectious or inflammat ory colitis. This pattern of inflammation may be seen in inflammatory bowel disease such as Crohn's disease. Correlate for appropriate history of clinical signs and symptoms if present. 2. Hepatomegaly and severe hepatic steatosis. 3. Status post Shanthi-en-Y gastric bypass. 4. Multifocal bilateral geographic ground-glass pulmonary opacity in the included bilateral lung bases, an unusual pattern that can be seen in atypical infection as well as inflammatory pneumonitis such as organizing pneumonia. Chest/Abdomen CTA 11/09/18 09:21 IMPRESSION: 1. Ground-glass opacities and bilateral effusions. Similar appearance to February study, suspect recurrent pulmonary edema. Superimposed consolidation most notable in the left upper lobe. This may reflect pneumonia. 2. No pulmonary embolus. KUB X-Ray 11/13/18 00:00 IMPRESSION: Esophagogastric tube with tip and side port below the diaphragm, likely within a gastric pouch status post Shanthi-en-Y bypass given the configuration of surgical findings. Distended loops of bowel in the mid abdomen are concerning for bowel obstruction. There is no obvious free air in the abdomen on limited supine radiograph. Chest X-Ray 11/16/18 06:00 IMPRESSION: No significant change. Assessment & Plan - Diagnosis (1) Pneumonia Qualifiers: Pneumonia type: due to unspecified organism Laterality: unspecified laterality Lung location: unspecified part of lung Qualified Code(s): J18.9 - Pneumonia, unspecified organism Is this a current diagnosis for this admission?: Yes (2) Acute hypoxemic respiratory failure Is this a current diagnosis for this admission?: Yes (3) UTI (urinary tract infection) Qualifiers: Urinary tract infection type: acute cystitis Is this a current diagnosis for this admission?: Yes (4) Sacral decubitus ulcer, stage IV Is this a current diagnosis for this admission?: Yes (5) Decubitus ulcer of left heel Qualifiers: Pressure injury stage: stage 2 Qualified Code(s): L89.622 - Pressure ulcer of left heel, stage 2 Is this a current diagnosis for this admission?: Yes (6) Chronic pain Qualifiers: Chronic pain type: chronic pain syndrome Qualified Code(s): G89.4 - Chronic pain syndrome Is this a current diagnosis for this admission?: Yes - Time Time Spent with patient: 25-34 minutes Medications reviewed and adjusted accordingly: Yes Anticipated discharge: SNF - for short term rehabilitation Within: Other - Inpatient Certification Based on my medical assessment, after consideration of the patient's comorbidities, presenting symptoms, or acuity I expect that the services needed warrant INPATIENT care.: Yes I certify that my determination is in accordance with my understanding of Medicare's requirements for reasonable and necessary INPATIENT services [42 CFR 412.3e].: Yes Medical Necessity: Need Close Monitoring Due to Risk of Patient Decompensation, Need For IV Fluids, Need For Continuous Telemetry Monitoring, Need for Nebulizer Therapy and Monitoring of Response, Need for IV Antibiotics, Risk of Complication if Not Cared For in Hospital Post Hospital Care: D/C or Transfer Summary - Plan Summary Plan Summary: Continue current medication management. D/C pressor support infusion drips and Q12 magnesium request. Advance diet to full liquid today.
[2018-11-16] MEDS: POTASSI CL 20 MEQ/NS 1L 1,000 ML IV PRN (17:04)
[2018-11-16] MEDS: MORPHINE SULFATE 10 MG/ML INJ IV PRN (21:39)
[2018-11-16] MEDS ORDERED: ACETAMINOPHEN 650 MG SUPP.RECT PR ONE (22:07)
--- NOTE | 2018-11-16 22:16 | RADIOLOGY REPORT (SQ) ---
EXAM DESCRIPTION: CT HEAD WITHOUT IV CONTRAST COMPLETED DATE/TME: 11/16/2018 21:25 CLINICAL HISTORY: 48 years, Female, R/O stroke This exam was performed according to our departmental dose-optimization program which includes automated exposure control, adjustment of the mA and/or kVp according to patient size and/or use of iterative reconstruction technique where applicable. FINDINGS: No acute intracranial hemorrhage, mass effect or midline shift. No extra-axial fluid collections. Ventricles and subarachnoid spaces are preserved. Isaac-white matter differentiation is preserved. Visualized paranasal sinuses and the mastoid air cells are clear. The skull is intact. IMPRESSION: No acute intracranial hemorrhage.
[2018-11-16 22:37] LABS: HEMATOCRIT 31.3 % (36.0-47.0); HEMOGLOBIN 10.6 g/dL (12.0-15.5); MEAN CORPUSCULAR HEMOGLOBIN 32.7 pg (27.0-33.4); MEAN CORPUSCULAR VOLUME 96 fl (80-97); PLATELET COUNT 242 10^3/uL (150-450); RED BLOOD COUNT 3.25 10^6/uL (3.72-5.28); WHITE BLOOD COUNT 13.1 10^3/uL (4.0-10.5)
[2018-11-16 22:39] LABS: INTERNATIONAL RATION (INR) 1.12; PARTIAL THROMBOPLASTIN TIME 28.1 SEC (23.5-35.8)
[2018-11-16 22:39] LABS: ARTERIAL BLOOD BASE EXCESS 4.6 mmol/L; ARTERIAL BLOOD O2 SATURATION 91.9 % (94-98); ARTERIAL BLOOD PCO2 36.7 mmHg (35-45); ARTERIAL BLOOD PO2 56.5 mmHg (80-100); ARTERIAL BLOOD TOTAL CO2 29.1 mmol/L (21-25)
[2018-11-16 22:42] LABS: ARTERIAL BLOOD FIO2 40%
[2018-11-16 22:43] LABS: ALANINE AMINOTRANSFERASE 30 U/L (9-52); ALBUMIN 2.3 g/dL (3.5-5.0); ALKALINE PHOSPHATASE 110 U/L (38-126); ANION GAP 8 (5-19); ASPARTATE AMINO TRANSFERASE 27 U/L (14-36); BILIRUBIN,DIRECT 0.4 mg/dL (0.0-0.4); BILIRUBIN,TOTAL 0.6 mg/dL (0.2-1.3); BLOOD UREA NITROGEN 9 mg/dL (7-20); CARBON DIOXIDE 26 mmol/L (22-30); CHLORIDE 107 mmol/L (98-107); GLUCOSE 85 mg/dL (75-110); SODIUM 140.5 mmol/L (137-145); TOTAL PROTEIN 4.3 g/dL (6.3-8.2)
[2018-11-16 22:51] LABS: CREATINE KINASE MB 1.07 ng/mL (<4.55)
[2018-11-16 22:52] LABS: POTASSIUM 3.4 mmol/L (3.6-5.0)
[2018-11-16 22:54] LABS: TROPONIN I 0.09 ng/mL
[2018-11-16 22:57] LABS: ABSOLUTE LYMPHOCYTES# (MANUAL) 1.2 10^3/uL (0.5-4.7); ABSOLUTE MONOCYTES # (MANUAL) 0.1 10^3/uL (0.1-1.4); ABSOLUTE NEUTROPHILS# (MANUAL) 11.8 10^3/uL (1.7-8.2); BASOPHILS % (MANUAL) 0 % (0-2); EOSINOPHILS % (MANUAL) 0 % (0-6); LYMPHOCYTES % (MANUAL) 9 % (13-45); MONOCYTES % (MANUAL) 1 % (3-13); SEGMENTED NEUTROPHILS % (MAN) 90 % (42-78); TOTAL CELLS COUNTED 100
[2018-11-16 22:58] LABS: ANISOCYTOSIS 2+; PLATELET COMMENT ADEQUATE; POLYCHROMASIA 1+
[2018-11-17] MEDS: IPRATROPIUM/ALBUTEROL 0.5-2.5 MG/3 ML AMPUL NEB SCH ×4 (01:46→19:12)
[2018-11-17] MEDS: POTASSIUM CHLORIDE 20 MEQ/50 ML RTU IV SCH ×2 (01:47→03:49)
[2018-11-17] MEDS: MORPHINE SULFATE 10 MG/ML INJ IV PRN ×3 (02:00→12:49)
[2018-11-17] MEDS: FUROSEMIDE INJ/PF 40 MG/4 ML SDV IV SCH (06:11)
[2018-11-17] MEDS: LACTOBACILLUS ACIDOPHILUS 250 MG TAB PO SCH (06:11)
[2018-11-17] MEDS: HYDROCORTISONE SOD SUCCINATE INJ/PF 100 MG/2 ML SDV IV SCH ×3 (06:11→21:13)
[2018-11-17] MEDS: LEVOTHYROXINE SODIUM 0.088 MG TABLET PO SCH (06:11)
[2018-11-17] MEDS: POTASSI CL 20 MEQ/NS 1L 1,000 ML IV PRN (06:38)
[2018-11-17 06:57] LABS: BLOOD UREA NITROGEN 11 mg/dL (7-20); GLUCOSE 92 mg/dL (75-110); POTASSIUM 4.2 mmol/L (3.6-5.0)
[2018-11-17 07:03] LABS: CARBON DIOXIDE 27 mmol/L (22-30); CHLORIDE 112 mmol/L (98-107); SODIUM 143.3 mmol/L (137-145)
[2018-11-17 07:04] LABS: ANION GAP 4 (5-19)
[2018-11-17] MEDS: TOPIRAMATE 25 MG TABLET PO SCH (08:08)
[2018-11-17] MEDS: ACETYLCYSTEINE 20% SOLN 800 MG/4 ML VIAL.NEB NEB SCH ×2 (08:12→19:12)
[2018-11-17] MEDS: COLLAGENASE CLOSTRIDIUM HIST. OINT 30 GM TP SCH ×2 (10:31→18:45)
[2018-11-17] MEDS ORDERED: SUCCINYLCHOLINE CHLORIDE INJ 200 MG/10 ML VIAL ONE (12:41)
[2018-11-17] MEDS ORDERED: MIDAZOLAM 2 MG/2 ML INJ IV PRN (13:26)
[2018-11-17] MEDS ORDERED: PHARMACY COMMUNICATION ORDER MC NR (16:00)
[2018-11-17] MEDS ORDERED: MIDAZOLAM HCL 50 MG/100 ML RTUINJ ONE (16:28)
[2018-11-17] MEDS ORDERED: ACETAMINOPHEN SOLN 325 MG/10.15 ML UDCUP NG PRN (16:30)
[2018-11-17] MEDS ORDERED: OXYCODONE HCL IR 5 MG TABLET NG PRN (16:30)
--- NOTE | 2018-11-17 16:33 | RADIOLOGY REPORT (SQ) ---
EXAM DESCRIPTION: CHEST SINGLE VIEW COMPLETED DATE/TIME: 11/17/2018 4:24 pm REASON FOR STUDY: ET TUBE PLACEMENT COMPARISON: CT chest 11/09/2018 Multiple chest films since 11/10/2018, most recently 11/16/2017 EXAM PARAMETERS: NUMBER OF VIEWS: One view. TECHNIQUE: Single frontal radiographic view of the chest acquired. RADIATION DOSE: NA LIMITATIONS: None. FINDINGS: LUNGS AND PLEURA: Diffuse opacification of the lungs from ARDS, edema, or pneumonia. This has progressed compared to prior exams. No pneumothorax. No gross pleural effusions. MEDIASTINUM AND HILAR STRUCTURES: Contour obscured by dense airspace disease HEART AND VASCULAR STRUCTURES: No gross cardiomegaly BONES: No acute findings. HARDWARE: Endotracheal tube tip 3 cm above the luis alberto. Right subclavian central line tip superior ve na cava. Nasogastric tube tip and side port in the stomach. OTHER: Surgical clips at the GE junction post gastric bypass. Clips right upper quadrant post cholec ystectomy. IMPRESSION: Progressive dense bilateral diffuse airspace disease worrisome for ARDS. Tubes and lines in good positioning. TECHNICAL DOCUMENTATION: JOB ID: [id number] [employer]- All Rights Reserved Reading location - IP/workstation name: [email or web address]
[2018-11-17 16:57] LABS: ARTERIAL BLOOD FIO2 60%; ARTERIAL BLOOD HCO3 23.8 mmol/L (20-24); ARTERIAL BLOOD O2 SATURATION 96.8 % (94-98); ARTERIAL BLOOD PH 7.39 (7.35-7.45); ARTERIAL BLOOD TOTAL CO2 25.1 mmol/L (21-25)
[2018-11-17 16:59] LABS: HEMATOCRIT 32.7 % (36.0-47.0); HEMOGLOBIN 10.8 g/dL (12.0-15.5); MEAN CORPUSCULAR HEMOGLOBIN 32.1 pg (27.0-33.4); MEAN CORPUSCULAR HGB CONC 33.1 g/dL (32.0-36.0); MEAN CORPUSCULAR VOLUME 97 fl (80-97); PLATELET COUNT 224 10^3/uL (150-450); RED BLOOD COUNT 3.37 10^6/uL (3.72-5.28); RED CELL DISTRIBUTION WIDTH 17.8 % (11.5-14.0); WHITE BLOOD COUNT 13.3 10^3/uL (4.0-10.5)
[2018-11-17 17:09] LABS: ANION GAP 10 (5-19); BLOOD UREA NITROGEN 11 mg/dL (7-20); CARBON DIOXIDE 23 mmol/L (22-30); CHLORIDE 110 mmol/L (98-107); GLUCOSE 88 mg/dL (75-110); POTASSIUM 3.6 mmol/L (3.6-5.0)
[2018-11-17] MEDS ORDERED: FUROSEMIDE INJ/PF 20 MG/2 ML SDV IV ONE (17:15)
[2018-11-17 17:28] LABS: ABSOLUTE LYMPHOCYTES# (MANUAL) 0.3 10^3/uL (0.5-4.7); ABSOLUTE MONOCYTES # (MANUAL) 0.4 10^3/uL (0.1-1.4); ABSOLUTE NEUTROPHILS# (MANUAL) 12.6 10^3/uL (1.7-8.2); ANISOCYTOSIS 1+; BASOPHILS % (MANUAL) 0 % (0-2); EOSINOPHILS % (MANUAL) 0 % (0-6); LYMPHOCYTES % (MANUAL) 2 % (13-45); MONOCYTES % (MANUAL) 3 % (3-13); PLATELET CLUMPS PRESENT; PLATELET COMMENT ADEQUATE; SEGMENTED NEUTROPHILS % (MAN) 95 % (42-78); TOTAL CELLS COUNTED 100
[2018-11-17] MEDS: LACTOBACILLUS ACIDOPHILUS 250 MG TAB NG SCH (17:57)
[2018-11-17] MEDS: MIDAZOLAM HCL 50 MG/100 ML RTUINJ IV PRN (17:57)
[2018-11-17] MEDS: PROPOFOL 1,000 MG/100 ML INFUS..BTL IV PRN ×2 (17:57→20:00)
[2018-11-17] MEDS: TOPIRAMATE 25 MG TABLET NG SCH (17:58)
[2018-11-17] MEDS ORDERED: VANCOMYCIN HCL 0 MG in DEXTROSE 5%-WATER 250 ML IV NR (21:00)
--- NOTE | 2018-11-17 21:06 | PDOC PROGRESS REPORT ---
Subjective Progress Note for:: 11/17/18 Subjective:: Patient was reintubated today because of increased work of breathing, tachypneic Reason For Visit: SEPSIS, BILATERAL PNEUMONIA, HYPOTENSION, Physical Exam Vital Signs: Temp Pulse Resp BP Pulse Ox 99.8 F 85 24 H 130/85 H 99 11/17/18 19:42 11/17/18 19:13 11/17/18 20:04 11/17/18 20:04 11/17/18 20:04 Intake & Output 11/16/18 11/17/18 11/18/18 06:59 06:59 06:59 Intake Total 456 2108 Output Total 2470 1920 2165 188 -2165 Weight 60.7 kg 60.4 kg General appearance: PRESENT: severe distress Eye exam: PRESENT: PERRLA Respiratory exam: PRESENT: rhonchi Cardiovascular exam: PRESENT: +S1, +S2 GI/Abdominal exam: PRESENT: soft Neurological exam: PRESENT: altered Results Laboratory Results: 11/17/18 16:40 11/17/18 16:40 11/16/18 11/16/18 11/16/18 22:15 22:15 22:15 WBC 13.1 H RBC 3.25 L Hgb 10.6 L Hct 31.3 L MCV 96 MCH 32.7 MCHC 34.0 RDW 18.0 H Plt Count 242 Seg Neutrophils % Not Reportable Lymphocytes % Not Reportable Monocytes % Not Reportable Eosinophils % Not Reportable Basophils % Not Reportable Absolute Neutrophils Not Reportable Absolute Lymphocytes Not Reportable Absolute Monocytes Not Reportable Absolute Eosinophils Not Reportable Absolute Basophils Not Reportable Carbonic Acid HCO3/H2CO3 Ratio ABG pH ABG pCO2 ABG pO2 ABG HCO3 ABG O2 Saturation ABG Base Excess FiO2 Sodium 140.5 Potassium 3.4 L D Chloride 107 Carbon Dioxide 26 Anion Gap 8 BUN 9 Creatinine 0.41 L Est GFR ( Amer) > 60 Est GFR (Non-Af Amer) > 60 Glucose 85 Lactic Acid 1.1 Calcium 8.0 L Magnesium 2.0 Total Bilirubin 0.6 AST 27 ALT 30 Alkaline Phosphatase 110 Total Protein 4.3 L Albumin 2.3 L 11/16/18 11/17/18 11/17/18 22:30 06:15 16:40 WBC 13.3 H RBC 3.37 L Hgb 10.8 L Hct 32.7 L MCV 97 MCH 32.1 MCHC 33.1 RDW 17.8 H Plt Count 224 Seg Neutrophils % Not Reportable Lymphocytes % Not Reportable Monocytes % Not Reportable Eosinophils % Not Reportable Basophils % Not Reportable Absolute Neutrophils Not Reportable Absolute Lymphocytes Not Reportable Absolute Monocytes Not Reportable Absolute Eosinophils Not Reportable Absolute Basophils Not Reportable Carbonic Acid 1.10 HCO3/H2CO3 Ratio 25:1 ABG pH 7.50 H ABG pCO2 36.7 ABG pO2 56.5 L ABG HCO3 28.0 H ABG O2 Saturation 91.9 L ABG Base Excess 4.6 FiO2 40% Sodium 143.3 Potassium 4.2 Chloride 112 H Carbon Dioxide 27 Anion Gap 4 L BUN 11 Creatinine 0.37 L Est GFR ( Amer) > 60 Est GFR (Non-Af Amer) > 60 Glucose 92 Lactic Acid Calcium 8.0 L Magnesium 2.1 Total Bilirubin AST ALT Alkaline Phosphatase Total Protein Albumin 11/17/18 11/17/18 16:40 16:40 WBC RBC Hgb Hct MCV MCH MCHC RDW Plt Count Seg Neutrophils % Lymphocytes % Monocytes % Eosinophils % Basophils % Absolute Neutrophils Absolute Lymphocytes Absolute Monocytes Absolute Eosinophils Absolute Basophils Carbonic Acid 1.20 HCO3/H2CO3 Ratio 19:1 ABG pH 7.39 ABG pCO2 40.0 ABG pO2 89.0 ABG HCO3 23.8 ABG O2 Saturation 96.8 ABG Base Excess -1.0 FiO2 60% Sodium 143.0 Potassium 3.6 Chloride 110 H Carbon Dioxide 23 Anion Gap 10 BUN 11 Creatinine 0.37 L Est GFR ( Amer) > 60 Est GFR (Non-Af Amer) > 60 Glucose 88 Lactic Acid Calcium 8.0 L Magnesium 2.0 Total Bilirubin AST ALT Alkaline Phosphatase Total Protein Albumin 11/15/18 21:53 Sputum Gram Stain - Final 11/15/18 21:53 Sputum Sputum Culture - Final C.albicans/C.dubliniensis Greatly Reduced Normal Gayle 11/07/18 11/07/18 11/07/18 08:10 09:57 17:05 Creatine Kinase 89 CK-MB (CK-2) Troponin I Cancelled < 0.012 NT-Pro-B Natriuret Pep Cancelled 172 H 11/07/18 11/07/18 11/07/18 17:05 23:02 23:02 Creatine Kinase 104 CK-MB (CK-2) 0.89 0.92 Troponin I < 0.012 < 0.012 NT-Pro-B Natriuret Pep 11/08/18 11/08/18 11/16/18 05:00 05:00 22:15 Creatine Kinase 73 50 CK-MB (CK-2) 0.68 Troponin I < 0.012 NT-Pro-B Natriuret Pep 11/16/18 11/16/18 22:15 22:15 Creatine Kinase CK-MB (CK-2) 1.07 Troponin I 0.090 NT-Pro-B Natriuret Pep 81336 H Impressions: Abdomen/Pelvis CT 11/07/18 10:58 IMPRESSION: 1. There is severe thickening of the terminal ileum, cecum, and proximal transverse colon, consistent with nonspecific infectious or inflammatory colitis. This pattern of inflammation may be seen in inflammatory bowel disease such as Crohn's disease. Correlate for appropriate history of clinical signs and symptoms if present. 2. Hepatomegaly and severe hepatic steatosis. 3. Status post Shanthi-en-Y gastric bypass. 4. Multifocal bilateral geographic ground-glass pulmonary opacity in the included bilateral lung bases, an unusual pattern that can be seen in atypical infection as well as inflammatory pneumonitis such as organizing pneumonia. Chest/Abdomen CTA 11/09/18 09:21 IMPRESSION: 1. Ground-glass opacities and bilateral effusions. Similar appearance to Marjorie study, suspect recurrent pulmonary edema. Superimposed consolidation most notable in the left upper lobe. This may reflect pneumonia. 2. No pulmonary embolus. KUB X-Ray 11/13/18 00:00 IMPRESSION: Esophagogastric tube with tip and side port below the diaphragm, likely within a gastric pouch status post Shanthi-en-Y bypass given the configuration of surgical findings. Distended loops of bowel in the mid abdomen are concerning for bowel obstruction. There is no obvious free air in the abdomen on limited supine radiograph. Head CT 11/16/18 21:25 IMPRESSION: No acute intracranial hemorrhage. Chest X-Ray 11/17/18 00:00 IMPRESSION: Progressive dense bilateral diffuse airspace disease worrisome for ARDS. Tubes and lines in good positioning. Assessment & Plan - Diagnosis (1) Septic shock Is this a current diagnosis for this admission?: Yes (2) Metabolic alkalosis Is this a current diagnosis for this admission?: Yes (3) Sacral decubitus ulcer, stage IV Is this a current diagnosis for this admission?: Yes (4) Colitis Is this a current diagnosis for this admission?: Yes (5) Multifocal pneumonia Is this a current diagnosis for this admission?: Yes Plan: The chest x-ray showed there is diffuse bilateral infiltrates, she is started on IV vancomycin, aztreonam and clindamycin. She has a long list of allergy to penicillin, imipenem, she will need a coverage for MRSA, E faecalis, anaerobes Pseudomonas. (6) Hemiparesis affecting left side as late effect of cerebrovascular accident Is this a current diagnosis for this admission?: Yes (7) Hypoalbuminemia Is this a current diagnosis for this admission?: Yes (8) Edema due to hypoalbuminemia Is this a current diagnosis for this admission?: Yes (9) Hypokalemia Is this a current diagnosis for this admission?: Yes (10) Acute hypoxemic respiratory failure Is this a current diagnosis for this admission?: Yes Plan: Patient is back on mechanical ventilation because of severe hypoxemia due to bilateral dense infiltrate, pulmonary following
[2018-11-17] MEDS: VANCOMYCIN HCL 1,000 MG in DEXTROSE 5%-WATER 250 ML IV SCH (22:05)
[2018-11-18] MEDS: CLINDAMYCIN 600 MG/D5W RTU 600 MG/50 ML RTUPB IV SCH ×3 (00:11→16:31)
[2018-11-18] MEDS: POTASSI CL 20 MEQ/NS 1L 1,000 ML IV PRN (00:12)
[2018-11-18] MEDS: AZTREONAM 1 GM in DEXTROSE 5%-WATER 50 ML IV SCH ×3 (02:01→18:53)
[2018-11-18] MEDS: IPRATROPIUM/ALBUTEROL 0.5-2.5 MG/3 ML AMPUL NEB SCH ×4 (02:35→21:05)
[2018-11-18] MEDS: MORPHINE SULFATE 10 MG/ML INJ IV PRN ×3 (04:16→15:00)
[2018-11-18 05:00] LABS: ARTERIAL BLOOD BASE EXCESS 1.1 mmol/L; ARTERIAL BLOOD H2CO3 0.86 mmol/L (1.05-1.35); ARTERIAL BLOOD HCO3 23.2 mmol/L (20-24); ARTERIAL BLOOD O2 SATURATION 96.9 % (94-98); ARTERIAL BLOOD PCO2 28.7 mmHg (35-45); ARTERIAL BLOOD PH 7.53 (7.35-7.45); ARTERIAL BLOOD PO2 78.9 mmHg (80-100); ARTERIAL BLOOD TOTAL CO2 24.1 mmol/L (21-25)
[2018-11-18 05:01] LABS: ARTERIAL BLOOD FIO2 50%
[2018-11-18 05:15] LABS: ANION GAP 7 (5-19); BLOOD UREA NITROGEN 12 mg/dL (7-20); CALCIUM 7.7 mg/dL (8.4-10.2); CARBON DIOXIDE 26 mmol/L (22-30); CHLORIDE 109 mmol/L (98-107); GLUCOSE 127 mg/dL (75-110); SODIUM 142.4 mmol/L (137-145)
[2018-11-18 05:22] LABS: POTASSIUM 2.8 mmol/L (3.6-5.0)
[2018-11-18] MEDS: VANCOMYCIN HCL 1,000 MG in DEXTROSE 5%-WATER 250 ML IV SCH ×3 (05:37→22:03)
[2018-11-18] MEDS: FUROSEMIDE INJ/PF 40 MG/4 ML SDV IV SCH (05:38)
[2018-11-18] MEDS: LEVOTHYROXINE SODIUM 0.088 MG TABLET NG SCH (05:38)
[2018-11-18] MEDS: LACTOBACILLUS ACIDOPHILUS 250 MG TAB NG SCH ×2 (05:38→18:54)
[2018-11-18] MEDS: HYDROCORTISONE SOD SUCCINATE INJ/PF 100 MG/2 ML SDV IV SCH ×3 (05:38→22:05)
[2018-11-18] MEDS: MIDAZOLAM HCL 50 MG/100 ML RTUINJ IV PRN (05:52)
[2018-11-18] MEDS: POTASSIUM CHLORIDE 20 MEQ/50 ML RTU IV SCH ×5 (05:54→18:53)
--- NOTE | 2018-11-18 08:28 | RADIOLOGY REPORT (SQ) ---
EXAM DESCRIPTION: CHEST SINGLE VIEW COMPLETED DATE/TIME: 11/18/2018 6:52 am REASON FOR STUDY: REsp Failure COMPARISON: 11/17/2018 EXAM PARAMETERS: NUMBER OF VIEWS: One view. TECHNIQUE: Single frontal radiographic view of the chest acquired. RADIATION DOSE: NA LIMITATIONS: None. FINDINGS: LUNGS AND PLEURA: Since the prior examination, slight to mild decrease in the extensive d iffuse airspace and interstitial disease in the lungs. Small bilateral pleural effusions, stable fin dings. No pneumothorax or pleural effusion. MEDIASTINUM AND HILAR STRUCTURES: No masses. Contour normal. HEART AND VASCULAR STRUCTURES: The cardiac margins are partially obscured by the underlying parenchy mal disease. BONES: No acute findings. HARDWARE: Support tubes and catheters are unchanged. OTHER: Surgical clips at the gastroesophageal junction and prior cholecystectomy. IMPRESSION: 1. Since the prior examination dated 11/17/2018, some improvement in the appearance of th e lungs with a slight to mild decrease in the bilateral diffuse airspace/interstitial disease. Small bilateral pleural effusions, unchanged findings. TECHNICAL DOCUMENTATION: JOB ID: [id number] [employer]- All Rights Reserved Reading location - IP/workstation name: [email or web address]
[2018-11-18] MEDS: ACETYLCYSTEINE 20% SOLN 800 MG/4 ML VIAL.NEB NEB SCH ×2 (08:57→21:05)
[2018-11-18] MEDS: TOPIRAMATE 25 MG TABLET NG SCH ×2 (08:57→18:54)
[2018-11-18] MEDS: COLLAGENASE CLOSTRIDIUM HIST. OINT 30 GM TP SCH ×2 (10:17→18:54)
[2018-11-18] MEDS: FAMOTIDINE INJ/PF 20 MG/2 ML SDV IV SCH ×2 (11:40→22:06)
[2018-11-18] MEDS: PROPOFOL 1,000 MG/100 ML INFUS..BTL IV PRN ×2 (11:40→18:53)
[2018-11-18] MEDS: HEPARIN SOD (PORCINE) 5,000 UNIT/ML 1 ML SYRINGE SUBCUT SCH ×2 (14:59→22:05)
--- NOTE | 2018-11-18 15:07 | PDOC PROGRESS REPORT ---
Subjective Progress Note for:: 11/13/18 Subjective:: Intubated and sedated Reason For Visit: SEPSIS, BILATERAL PNEUMONIA, HYPOTENSION, Physical Exam Vital Signs: Temp Pulse Resp BP Pulse Ox 99.5 F 85 14 93/51 L 96 11/14/18 10:25 11/14/18 10:00 11/14/18 10:25 11/14/18 10:25 11/14/18 11:57 Intake & Output 11/13/18 11/14/18 11/15/18 06:59 06:59 06:59 Intake Total 2319 3036 1000 Output Total 2745 8400 800 Balance -428 -0832 200 Weight 69.6 kg 63.4 kg General appearance: PRESENT: no acute distress, disheveled, thin Head exam: PRESENT: atraumatic, normocephalic Eye exam: PRESENT: conjunctiva pale. ABSENT: EOMI, nystagmus, scleral icterus Mouth exam: PRESENT: dry mucosa, neck supple, tongue midline, other - ET tube Neck exam: ABSENT: carotid bruit, JVD, lymphadenopathy, thyromegaly, tracheal deviation, tracheostomy Respiratory exam: PRESENT: decreased breath sounds, prolonged expiratory phas, rales, rhonchi, unlabored. ABSENT: retraction, stridor, tachypnea Cardiovascular exam: PRESENT: irregular rhythm Pulses: PRESENT: normal radial pulses GI/Abdominal exam: PRESENT: soft Gentrourinary exam: PRESENT: indwelling catheter Extremities exam: PRESENT: pedal edema. ABSENT: calf tenderness, clubbing, joint swelling Musculoskeletal exam: ABSENT: ambulatory, deformity, dislocation Neurological exam: PRESENT: altered Skin exam: PRESENT: dry, warm, other - Decubiti Results Laboratory Results: 11/14/18 05:00 11/14/18 05:00 11/11/18 11/13/18 11/14/18 17:20 17:00 01:40 WBC 9.0 RBC 3.40 L Hgb 11.2 L D Hct 31.9 L MCV 94 MCH 32.9 MCHC 35.0 RDW 17.2 H Plt Count 195 Seg Neutrophils % 91.3 H Lymphocytes % 5.2 L Monocytes % 1.7 L Eosinophils % 0.1 Basophils % 1.7 Absolute Neutrophils 8.2 Absolute Lymphocytes 0.5 Absolute Monocytes 0.2 Absolute Eosinophils 0.0 Absolute Basophils 0.2 Carbonic Acid HCO3/H2CO3 Ratio ABG pH ABG pCO2 ABG pO2 ABG HCO3 ABG O2 Saturation ABG Base Excess FiO2 Sodium 132.3 L Potassium 3.2 L Chloride 103 Carbon Dioxide 23 Anion Gap 6 BUN 5 L Creatinine 0.36 L Est GFR ( Amer) > 60 Est GFR (Non-Af Amer) > 60 Glucose 89 Lactic Acid Calcium 7.6 L Magnesium 2.1 Blood Type O POSITIVE Antibody Screen NEGATIVE 11/14/18 11/14/18 11/14/18 05:00 05:00 05:00 WBC RBC Hgb Hct MCV MCH MCHC RDW Plt Count Seg Neutrophils % Lymphocytes % Monocytes % Eosinophils % Basophils % Absolute Neutrophils Absolute Lymphocytes Absolute Monocytes Absolute Eosinophils Absolute Basophils Carbonic Acid 0.92 L HCO3/H2CO3 Ratio 21:1 ABG pH 7.44 ABG pCO2 30.5 L ABG pO2 96.7 ABG HCO3 20.0 ABG O2 Saturation 97.6 ABG Base Excess -3.3 FiO2 40% Sodium 137.5 Potassium 3.5 L Chloride 107 Carbon Dioxide 25 Anion Gap 6 BUN 5 L Creatinine 0.41 L Est GFR ( Amer) > 60 Est GFR (Non-Af Amer) > 60 Glucose 110 Lactic Acid 0.7 Calcium 7.9 L Magnesium 2.1 Blood Type Antibody Screen 11/14/18 05:00 WBC 9.6 RBC 3.49 L Hgb 11.4 L Hct 32.7 L MCV 94 MCH 32.6 MCHC 34.8 RDW 17.6 H Plt Count 218 Seg Neutrophils % Not Reportable Lymphocytes % Not Reportable Monocytes % Not Reportable Eosinophils % Not Reportable Basophils % Not Reportable Absolute Neutrophils Not Reportable Absolute Lymphocytes Not Reportable Absolute Monocytes Not Reportable Absolute Eosinophils Not Reportable Absolute Basophils Not Reportable Carbonic Acid HCO3/H2CO3 Ratio ABG pH ABG pCO2 ABG pO2 ABG HCO3 ABG O2 Saturation ABG Base Excess FiO2 Sodium Potassium Chloride Carbon Dioxide Anion Gap BUN Creatinine Est GFR ( Amer) Est GFR (Non-Af Amer) Glucose Lactic Acid Calcium Magnesium Blood Type Antibody Screen 11/07/18 11/07/18 11/07/18 08:10 09:57 17:05 Creatine Kinase 89 CK-MB (CK-2) Troponin I Cancelled < 0.012 NT-Pro-B Natriuret Pep Cancelled 172 H 11/07/18 11/07/18 11/07/18 17:05 23:02 23:02 Creatine Kinase 104 CK-MB (CK-2) 0.89 0.92 Troponin I < 0.012 < 0.012 NT-Pro-B Natriuret Pep 11/08/18 11/08/18 05:00 05:00 Creatine Kinase 73 CK-MB (CK-2) 0.68 Troponin I < 0.012 NT-Pro-B Natriuret Pep Impressions: Abdomen/Pelvis CT 11/07/18 10:58 IMPRESSION: 1. There is severe thickening of the terminal ileum, cecum, and proximal transverse colon, consistent with nonspecific infectious or inflammatory colitis. This pattern of inflammation may be seen in inflammatory bowel disease such as Crohn's disease. Correlate for appropriate history of clinical signs and symptoms if present. 2. Hepatomegaly and severe hepatic steatosis. 3. Status post Shanthi-en-Y gastric bypass. 4. Multifocal bilateral geographic ground-glass pulmonary opacity in the included bilateral lung bases, an unusual pattern that can be seen in atypical infection as well as inflammatory pneumonitis such as organizing pneumonia. Chest/Abdomen CTA 11/09/18 09:21 IMPRESSION: 1. Ground-glass opacities and bilateral effusions. Similar appearance to February study, suspect recurrent pulmonary edema. Superimposed consolidation most notable in the left upper lobe. This may reflect pneumonia. 2. No pulmonary embolus. KUB X-Ray 11/13/18 00:00 IMPRESSION: Esophagogastric tube with tip and side port below the diaphragm, likely within a gastric pouch status post Shanthi-en-Y bypass given the configuration of surgical findings. Distended loops of bowel in the mid abdomen are concerning for bowel obstruction. There is no obvious free air in the abdomen on limited supine radiograph. Chest X-Ray 11/14/18 06:00 IMPRESSION: No significant change. Assessment & Plan - Diagnosis (1) Gram negative septic shock Is this a current diagnosis for this admission?: Yes (2) Diabetes mellitus type 2 in obese Is this a current diagnosis for this admission?: Yes (3) Malnutrition Is this a current diagnosis for this admission?: Yes
--- NOTE | 2018-11-18 15:12 | PDOC PROGRESS REPORT ---
Subjective Progress Note for:: 11/18/18 Subjective:: Intubated and sedated Reason For Visit: SEPSIS, BILATERAL PNEUMONIA, HYPOTENSION, Physical Exam Vital Signs: Temp Pulse Resp BP Pulse Ox 100.6 F H 111 H 18 102/73 93 11/18/18 14:34 11/18/18 14:35 11/18/18 14:35 11/18/18 14:34 11/18/18 14:35 Intake & Output 11/17/18 11/18/18 11/19/18 06:59 06:59 06:59 Intake Total 2108 1582 418 Output Total 1920 3120 1760 Balance 618 -0433 -1345 Weight 60.4 kg 58 kg General appearance: PRESENT: no acute distress, disheveled, thin. ABSENT: cooperative Head exam: PRESENT: atraumatic, normocephalic Eye exam: PRESENT: conjunctiva pale. ABSENT: EOMI, nystagmus, scleral icterus Mouth exam: PRESENT: dry mucosa, neck supple, tongue midline, other - ET tube Neck exam: ABSENT: carotid bruit, JVD, lymphadenopathy, thyromegaly, tracheal deviation, tracheostomy Respiratory exam: PRESENT: decreased breath sounds, prolonged expiratory phas, rales, rhonchi, unlabored. ABSENT: retraction, stridor, tachypnea Cardiovascular exam: PRESENT: irregular rhythm Pulses: PRESENT: normal radial pulses GI/Abdominal exam: PRESENT: soft Gentrourinary exam: PRESENT: indwelling catheter Extremities exam: PRESENT: pedal edema. ABSENT: calf tenderness, clubbing, full ROM, joint swelling Musculoskeletal exam: ABSENT: ambulatory, deformity, dislocation Neurological exam: PRESENT: altered Skin exam: PRESENT: dry, warm, other - decubiti Results Laboratory Results: 11/17/18 16:40 11/18/18 13:10 11/17/18 11/17/18 11/17/18 16:40 16:40 16:40 WBC 13.3 H RBC 3.37 L Hgb 10.8 L Hct 32.7 L MCV 97 MCH 32.1 MCHC 33.1 RDW 17.8 H Plt Count 224 Seg Neutrophils % Not Reportable Lymphocytes % Not Reportable Monocytes % Not Reportable Eosinophils % Not Reportable Basophils % Not Reportable Absolute Neutrophils Not Reportable Absolute Lymphocytes Not Reportable Absolute Monocytes Not Reportable Absolute Eosinophils Not Reportable Absolute Basophils Not Reportable Carbonic Acid 1.20 HCO3/H2CO3 Ratio 19:1 ABG pH 7.39 ABG pCO2 40.0 ABG pO2 89.0 ABG HCO3 23.8 ABG O2 Saturation 96.8 ABG Base Excess -1.0 FiO2 60% Sodium 143.0 Potassium 3.6 Chloride 110 H Carbon Dioxide 23 Anion Gap 10 BUN 11 Creatinine 0.37 L Est GFR ( Amer) > 60 Est GFR (Non-Af Amer) > 60 Glucose 88 Calcium 8.0 L Magnesium 2.0 11/18/18 11/18/18 11/18/18 04:30 04:40 13:10 WBC RBC Hgb Hct MCV MCH MCHC RDW Plt Count Seg Neutrophils % Lymphocytes % Monocytes % Eosinophils % Basophils % Absolute Neutrophils Absolute Lymphocytes Absolute Monocytes Absolute Eosinophils Absolute Basophils Carbonic Acid 0.86 L HCO3/H2CO3 Ratio 26:1 ABG pH 7.53 H ABG pCO2 28.7 L ABG pO2 78.9 L ABG HCO3 23.2 ABG O2 Saturation 96.9 ABG Base Excess 1.1 FiO2 50% Sodium 142.4 Potassium 2.8 L* 3.1 L Chloride 109 H Carbon Dioxide 26 Anion Gap 7 BUN 12 Creatinine 0.34 L Est GFR ( Amer) > 60 Est GFR (Non-Af Amer) > 60 Glucose 127 H Calcium 7.7 L Magnesium 2.0 11/15/18 21:53 Sputum Gram Stain - Final 11/15/18 21:53 Sputum Sputum Culture - Final C.albicans/C.dubliniensis Greatly Reduced Normal Gayle 11/07/18 11/07/18 11/07/18 08:10 09:57 17:05 Creatine Kinase 89 CK-MB (CK-2) Troponin I Cancelled < 0.012 NT-Pro-B Natriuret Pep Cancelled 172 H 11/07/18 11/07/18 11/07/18 17:05 23:02 23:02 Creatine Kinase 104 CK-MB (CK-2) 0.89 0.92 Troponin I < 0.012 < 0.012 NT-Pro-B Natriuret Pep 11/08/18 11/08/18 11/16/18 05:00 05:00 22:15 Creatine Kinase 73 50 CK-MB (CK-2) 0.68 Troponin I < 0.012 NT-Pro-B Natriuret Pep 11/16/18 11/16/18 22:15 22:15 Creatine Kinase CK-MB (CK-2) 1.07 Troponin I 0.090 NT-Pro-B Natriuret Pep 27049 H Impressions: Abdomen/Pelvis CT 11/07/18 10:58 IMPRESSION: 1. There is severe thickening of the terminal ileum, cecum, and proximal transverse colon, consistent with nonspecific infectious or infl ammatory colitis. This pattern of inflammation may be seen in inflammatory bowel disease such as Crohn's disease. Correlate for appropriate history of clinical signs and symptoms if present. 2. Hepatomegaly and severe hepatic steatosis. 3. Status post Shanthi-en-Y gastric bypass. 4. Multifocal bilateral geographic ground-glass pulmonary opacity in the included bilateral lung bases, an unusual pattern that can be seen in atypical infection as well as inflammatory pneumonitis such as organizing pneumonia. Chest/Abdomen CTA 11/09/18 09:21 IMPRESSION: 1. Ground-glass opacities and bilateral effusions. Similar appearance to February study, suspect recurrent pulmonary edema. Superimposed consolidation most notable in the left upper lobe. This may reflect pneumonia. 2. No pulmonary embolus. KUB X-Ray 11/13/18 00:00 IMPRESSION: Esophagogastric tube with tip and side port below the diaphragm, likely within a gastric pouch status post Shanthi-en-Y bypass given the configuration of surgical findings. Distended loops of bowel in the mid abdomen are concerning for bowel obstruction. There is no obvious free air in the abdomen on limited supine radiograph. Head CT 11/16/18 21:25 IMPRESSION: No acute intracranial hemorrhage. Chest X-Ray 11/18/18 06:00 IMPRESSION: 1. Since the prior examination dated 11/17/2018, some improvement in the appearance of the lungs with a slight to mild decrease in the bilateral diffuse airspace/interstitial disease. Small bilateral pleural effusions, unchanged findings. Assessment & Plan - Diagnosis (1) Gram negative septic shock Is this a current diagnosis for this admission?: Yes Plan: As per cultures Labs- All tests 24 hr 11/08/18 11/09/18 16:30 06:40 WBC 24.0 H 18.0 H Generic Name Dose Route Start Last Admin Trade Name Freq PRN Reason Stop Dose Admin Norepinephrine Bitartrate 4 mg 250 mls @ 0 mls/hr 11/09/18 22:10 11/10/18 14:00 / Dextrose IV 12/09/18 22:09 0 mls/hr CONTINUOUS PRN 0 mcg/min THIS MED IS NOT "PRN" Protocol Titrate Vasopressin 100 unit/ Dextrose 250 mls @ 0 mls/hr 11/08/18 15:10 11/10/18 09:03 IV 12/08/18 15:09 4.5 mls/hr CONTINUOUS PRN 0.03 unit/min THIS MED IS NOT "PRN" Protocol Titrate (2) Diabetes mellitus type 2 in obese Is this a current diagnosis for this admission?: Yes Plan: Sliding scale insulin (3) Malnutrition Is this a current diagnosis for this admission?: Yes Plan: TPN versus interval protein feedings (4) Pneumonia Qualifiers: Pneumonia type: due to unspecified organism Laterality: unspecified laterality Lung location: unspecified part of lung Qualified Code(s): J18.9 - Pneumonia, unspecified organism Is this a current diagnosis for this admission?: Yes Plan: Labs- All tests 24 hr 11/17/18 16:40 WBC 13.3 H Seg Neuts % (Manual) 95 H 11/07/18 19:30 Gram Stain - Final Decubitis Ulcer - Sacral Wound Culture - Final Escherichia Coli Proteus Mirabilis Staphylococcus Aureus Enterococcus Faecalis(Group D) Skin Gayle 11/07/18 08:30 Urine Culture - Final Catheterized Urine Proteus Mirabilis Enterococcus Faecalis(Group D) 11/15/18 21:53 Gram Stain - Final Sputum Sputum Culture - Final C.albicans/C.dubliniensis Greatly Reduced Normal Gayle Generic Name Dose Route Start Last Admin Trade Name Freq PRN Reason Stop Dose Admin Clindamycin Phosphate/Dextrose 600 mg in 50 mls @ 50 mls/hr 11/18/18 00:00 11/18/18 08:57 Cleocin Rtu 600 Mg/D5w 50 Ml Premix IV 11/25/18 00:00 50 mls/hr Q8@0000,0800,1600 TOAN 50 mls/hr Vancomycin HCl 1,000 mg/ 250 mls @ 166.667 mls/hr 11/17/18 22:00 11/18/18 14:59 Dextrose IV 11/24/18 21:59 166.67 mls/hr Q8 TOAN 166.67 mls/hr Aztreonam 1 gm/ Dextrose 50 mls @ 100 mls/hr 11/18/18 02:00 11/18/18 10:16 IV 11/25/18 01:59 100 mls/hr Q8A TOAN 100 mls/hr - Time Total Critical Time (Minutes): 50
--- NOTE | 2018-11-18 15:16 | PDOC PROGRESS REPORT ---
Subjective Progress Note for:: 11/14/18 Subjective:: Intubated and Arousable Reason For Visit: SEPSIS, BILATERAL PNEUMONIA, HYPOTENSION, Physical Exam Vital Signs: Temp Pulse Resp BP Pulse Ox 99.1 F 95 12 102/64 96 11/14/18 06:25 11/14/18 09:00 11/14/18 09:00 11/14/18 06:25 11/14/18 09:00 Intake & Output 11/13/18 11/14/18 11/15/18 06:59 06:59 06:59 Intake Total 2319 2486 Output Total 2741 8400 Balance -319 -1890 Weight 69.6 kg 63.4 kg General appearance: PRESENT: no acute distress, cooperative, disheveled, thin Head exam: PRESENT: atraumatic, normocephalic Eye exam: PRESENT: conjunctiva pale, EOMI. ABSENT: nystagmus, scleral icterus Mouth exam: PRESENT: dry mucosa, neck supple, tongue midline, other - ET tube Neck exam: ABSENT: carotid bruit, JVD, lymphadenopathy, thyromegaly, tracheal deviation Respiratory exam: PRESENT: decreased breath sounds, prolonged expiratory phas, rales, rhonchi, unlabored. ABSENT: retraction, tachypnea Cardiovascular exam: PRESENT: RRR, +S2 Pulses: PRESENT: normal radial pulses GI/Abdominal exam: PRESENT: soft Gentrourinary exam: PRESENT: indwelling catheter Extremities exam: ABSENT: calf tenderness, joint swelling Musculoskeletal exam: ABSENT: deformity, dislocation Neurological exam: PRESENT: altered Skin exam: PRESENT: dry, warm, other - Decubiti Results Laboratory Results: 11/14/18 05:00 11/14/18 05:00 11/11/18 11/13/18 11/14/18 17:20 17:00 01:40 WBC 9.0 RBC 3.40 L Hgb 11.2 L D Hct 31.9 L MCV 94 MCH 32.9 MCHC 35.0 RDW 17.2 H Plt Count 195 Seg Neutrophils % 91.3 H Lymphocytes % 5.2 L Monocytes % 1.7 L Eosinophils % 0.1 Basophils % 1.7 Absolute Neutrophils 8.2 Absolute Lymphocytes 0.5 Absolute Monocytes 0.2 Absolute Eosinophils 0.0 Absolute Basophils 0.2 Carbonic Acid HCO3/H2CO3 Ratio ABG pH ABG pCO2 ABG pO2 ABG HCO3 ABG O2 Saturation ABG Base Excess FiO2 Sodium 132.3 L Potassium 3.2 L Chloride 103 Carbon Dioxide 23 Anion Gap 6 BUN 5 L Creatinine 0.36 L Est GFR ( Amer) > 60 Est GFR (Non-Af Amer) > 60 Glucose 89 Lactic Acid Calcium 7.6 L Magnesium 2.1 Blood Type O POSITIVE Antibody Screen NEGATIVE 11/14/18 11/14/18 11/14/18 05:00 05:00 05:00 WBC RBC Hgb Hct MCV MCH MCHC RDW Plt Count Seg Neutrophils % Lymphocytes % Monocytes % Eosinophils % Basophils % Absolute Neutrophils Absolute Lymphocytes Absolute Monocytes Absolute Eosinophils Absolute Basophils Carbonic Acid 0.92 L HCO3/H2CO3 Ratio 21:1 ABG pH 7.44 ABG pCO2 30.5 L ABG pO2 96.7 ABG HCO3 20.0 ABG O2 Saturation 97.6 ABG Base Excess -3.3 FiO2 40% Sodium 137.5 Potassium 3.5 L Chloride 107 Carbon Dioxide 25 Anion Gap 6 BUN 5 L Creatinine 0.41 L Est GFR ( Amer) > 60 Est GFR (Non-Af Amer) > 60 Glucose 110 Lactic Acid 0.7 Calcium 7.9 L Magnesium 2.1 Blood Type Antibody Screen 11/14/18 05:00 WBC 9.6 RBC 3.49 L Hgb 11.4 L Hct 32.7 L MCV 94 MCH 32.6 MCHC 34.8 RDW 17.6 H Plt Count 218 Seg Neutrophils % Not Reportable Lymphocytes % Not Reportable Monocytes % Not Reportable Eosinophils % Not Reportable Basophils % Not Reportable Absolute Neutrophils Not Reportable Absolute Lymphocytes Not Reportable Absolute Monocytes Not Reportable Absolute Eosinophils Not Reportable Absolute Basophils Not Reportable Carbonic Acid HCO3/H2CO3 Ratio ABG pH ABG pCO2 ABG pO2 ABG HCO3 ABG O2 Saturation ABG Base Excess FiO2 Sodium Potassium Chloride Carbon Dioxide Anion Gap BUN Creatinine Est GFR ( Amer) Est GFR (Non-Af Amer) Glucose Lactic Acid Calcium Magnesium Blood Type Antibody Screen 11/07/18 11/07/18 11/07/18 08:10 09:57 17:05 Creatine Kinase 89 CK-MB (CK-2) Troponin I Cancelled < 0.012 NT-Pro-B Natriuret Pep Cancelled 172 H 11/07/18 11/07/18 11/07/18 17:05 23:02 23:02 Creatine Kinase 104 CK-MB (CK-2) 0.89 0.92 Troponin I < 0.012 < 0.012 NT-Pro-B Natriuret Pep 11/08/18 11/08/18 05:00 05:00 Creatine Kinase 73 CK-MB (CK-2) 0.68 Troponin I < 0.012 NT-Pro-B Natriuret Pep Impressions: Abdomen/Pelvis CT 11/07/18 10:58 IMPRESSION: 1. There is severe thickening of the terminal ileum, cecum, and proximal transverse colon, consistent with nonspecific infectious or inflammatory colitis. This pattern of inflammation may be seen in inflammatory bowel disease such as Crohn's disease. Correlate for appropriate history of clinical signs and symptoms if present. 2. Hepatomegaly and severe hepatic steatosis. 3. Status post Shanthi-en-Y gastric bypass. 4. Multifocal bilateral geographic ground-glass pulmonary opacity in the i ncluded bilateral lung bases, an unusual pattern that can be seen in atypical infection as well as inflammatory pneumonitis such as organizing pneumonia. Chest/Abdomen CTA 11/09/18 09:21 IMPRESSION: 1. Ground-glass opacities and bilateral effusions. Similar appearance to February study, suspect recurrent pulmonary edema. Superimposed consolidation most notable in the left upper lobe. This may reflect pneumonia. 2. No pulmonary embolus. KUB X-Ray 11/13/18 00:00 IMPRESSION: Esophagogastric tube with tip and side port below the diaphragm, likely within a gastric pouch status post Shanthi-en-Y bypass given the configuration of surgical findings. Distended loops of bowel in the mid abdomen are concerning for bowel obstruction. There is no obvious free air in the abdomen on limited supine radiograph. Chest X-Ray 11/14/18 06:00 IMPRESSION: No significant change. Assessment & Plan - Diagnosis (1) Gram negative septic shock Is this a current diagnosis for this admission?: Yes Plan: As per cultures Labs- All tests 24 hr 11/08/18 11/09/18 16:30 06:40 WBC 24.0 H 18.0 H Generic Name Dose Route Start Last Admin Trade Name Freq PRN Reason Stop Dose Admin Norepinephrine Bitartrate 4 mg 250 mls @ 0 mls/hr 11/09/18 22:10 11/10/18 14:00 / Dextrose IV 12/09/18 22:09 0 mls/hr CONTINUOUS PRN 0 mcg/min THIS MED IS NOT "PRN" Protocol Titrate Vasopressin 100 unit/ Dextrose 250 mls @ 0 mls/hr 11/08/18 15:10 11/10/18 09:03 IV 12/08/18 15:09 4.5 mls/hr CONTINUOUS PRN 0.03 unit/min THIS MED IS NOT "PRN" Protocol Titrate (2) Diabetes mellitus type 2 in obese Is this a current diagnosis for this admission?: Yes Plan: Sliding scale insulin (3) Malnutrition Is this a current diagnosis for this admission?: Yes Plan: TPN versus interval protein feedings (4) Multifocal pneumonia Is this a current diagnosis for this admission?: Yes Plan: Chest x-ray somewhat improved minute ventilation down FiO2 lower airway pressures decreased normal suggest patient could be successfully extubated will proceed with extubation - Time Total Critical Time (Minutes): 55
--- NOTE | 2018-11-18 15:21 | PDOC PROGRESS REPORT ---
Subjective Progress Note for:: 11/15/18 Subjective:: Status post extubation on BiPAP stable at this time Reason For Visit: SEPSIS, BILATERAL PNEUMONIA, HYPOTENSION, Physical Exam Vital Signs: Temp Pulse Resp BP Pulse Ox 98.8 F 96 20 130/76 H 98 11/15/18 08:00 11/15/18 08:00 11/15/18 08:00 11/15/18 08:00 11/15/18 08:00 Intake & Output 11/14/18 11/15/18 11/16/18 06:59 06:59 06:59 Intake Total 3036 1361 Output Total 8400 1790 1100 Balance -5364 -429 -1100 Weight 63.4 kg 61.6 kg General appearance: PRESENT: no acute distress, cooperative, disheveled, thin Head exam: PRESENT: atraumatic, normocephalic Eye exam: PRESENT: conjunctiva pale, EOMI. ABSENT: nystagmus, scleral icterus Mouth exam: PRESENT: dry mucosa, neck supple, tongue midline Neck exam: ABSENT: carotid bruit, JVD, lymphadenopathy, thyromegaly Respiratory exam: PRESENT: crackles, decreased breath sounds, rhonchi, tachypnea, unlabored Cardiovascular exam: PRESENT: RRR, +S1, +S2 Pulses: PRESENT: normal radial pulses GI/Abdominal exam: PRESENT: soft Gentrourinary exam: PRESENT: indwelling catheter Extremities exam: PRESENT: pedal edema. ABSENT: calf tenderness, clubbing, joint swelling Musculoskeletal exam: ABSENT: ambulatory, deformity, dislocation Neurological exam: PRESENT: altered Skin exam: PRESENT: dry, warm - Decubiti Results Laboratory Results: 11/15/18 04:20 11/15/18 04:20 11/14/18 11/14/18 11/15/18 18:00 18:00 04:20 WBC 12.5 H RBC 3.19 L Hgb 10.5 L Hct 30.2 L MCV 95 MCH 32.8 MCHC 34.7 RDW 17.5 H Plt Count 229 Seg Neutrophils % 82.2 H Lymphocytes % 12.7 L Monocytes % 3.1 Eosinophils % 0.9 Basophils % 1.1 Absolute Neutrophils 10.3 H Absolute Lymphocytes 1.6 Absolute Monocytes 0.4 Absolute Eosinophils 0.1 Absolute Basophils 0.1 Carbonic Acid HCO3/H2CO3 Ratio ABG pH ABG pCO2 ABG pO2 ABG HCO3 ABG O2 Saturation ABG Base Excess FiO2 Sodium 140.7 141.8 Potassium 3.3 L 3.5 L Chloride 109 H 110 H Carbon Dioxide 28 24 Anion Gap 4 L 8 BUN 7 8 Creatinine 0.40 L 0.43 L Est GFR ( Amer) > 60 > 60 Est GFR (Non-Af Amer) > 60 > 60 Glucose 69 L 79 Calcium 7.8 L 7.9 L Magnesium 2.2 2.2 Total Bilirubin 0.8 AST 28 ALT 35 Alkaline Phosphatase 122 Total Protein 4.0 L Albumin 2.1 L 11/15/18 11/15/18 04:20 04:20 WBC 11.2 H RBC 3.21 L Hgb 10.5 L Hct 30.7 L MCV 96 MCH 32.8 MCHC 34.3 RDW 17.8 H Plt Count 220 Seg Neutrophils % Not Reportable Lymphocytes % Not Reportable Monocytes % Not Reportable Eosinophils % Not Reportable Basophils % Not Reportable Absolute Neutrophils Not Reportable Absolute Lymphocytes Not Reportable Absolute Monocytes Not Reportable Absolute Eosinophils Not Reportable Absolute Basophils Not Reportable Carbonic Acid 1.12 HCO3/H2CO3 Ratio 21:1 ABG pH 7.42 ABG pCO2 37.2 ABG pO2 100.9 H ABG HCO3 23.8 ABG O2 Saturation 97.7 ABG Base Excess -0.5 FiO2 50% Sodium Potassium Chloride Carbon Dioxide Anion Gap BUN Creatinine Est GFR ( Amer) Est GFR (Non-Af Amer) Glucose Calcium Magnesium Total Bilirubin AST ALT Alkaline Phosphatase Total Protein Albumin 11/07/18 11/07/18 11/07/18 08:10 09:57 17:05 Creatine Kinase 89 CK-MB (CK-2) Troponin I Cancelled < 0.012 NT-Pro-B Natriuret Pep Cancelled 172 H 11/07/18 11/07/18 11/07/18 17:05 23:02 23:02 Creatine Kinase 104 CK-MB (CK-2) 0.89 0.92 Troponin I < 0.012 < 0.012 NT-Pro-B Natriuret Pep 11/08/18 11/08/18 05:00 05:00 Creatine Kinase 73 CK-MB (CK-2) 0.68 Troponin I < 0.012 NT-Pro-B Natriuret Pep Impressions: Abdomen/Pelvis CT 11/07/18 10:58 IMPRESSION: 1. There is severe thickening of the terminal ileum, cecum, and proximal transverse colon, consistent with nonspecific infectious or inflammatory colitis. This pattern of inflammation may be seen in inflammatory bowel disease such as Crohn's disease. Correlate for appropriate history of clinical signs and symptoms if present. 2. Hepatomegaly and severe hepatic steatosis. 3. Status post Shanthi-en-Y gastric bypass. 4. Multifocal bilateral geographic ground-glass pulmonary opacity in the included bilateral lung bases, an unusual pattern that can be seen in atypical infection as well as inflammatory pneumonitis such as organizing pneumonia. Chest/Abdomen CTA 11/09/18 09:21 IMPRESSION: 1. Ground-glass opacities and bilateral effusions. Similar appearance to February study, suspect recurrent pulmonary edema. Superimposed consolidation most notable in the left upper lobe. This may reflect pneumonia. 2. No pulmonary embolus. KUB X-Ray 11/13/18 00:00 IMPRESSION: Esophagogastric tube with tip and side port below the diaphragm, likely within a gastric pouch status post Shanthi-en-Y bypass given the configuration of surgical findings. Distended loops of bowel in the mid abdomen are concerning for bowel obstruction. There is no obvious free air in the abdomen on limited supine radiograph. Assessment & Plan - Diagnosis (1) Gram negative septic shock Is this a current diagnosis for this admission?: Yes Plan: As per cultures Labs- All tests 24 hr 11/08/18 11/09/18 16:30 06:40 WBC 24.0 H 18.0 H Generic Name Dose Route Start Last Admin Trade Name Freq PRN Reason Stop Dose Admin Norepinephrine Bitartrate 4 mg 250 mls @ 0 mls/hr 11/09/18 22:10 11/10/18 14:00 / Dextrose IV 12/09/18 22:09 0 mls/hr CONTINUOUS PRN 0 mcg/min THIS MED IS NOT "PRN" Protocol Titrate Vasopressin 100 unit/ Dextrose 250 mls @ 0 mls/hr 11/08/18 15:10 11/10/18 09:03 IV 12/08/18 15:09 4.5 mls/hr CONTINUOUS PRN 0.03 unit/min THIS MED IS NOT "PRN" Protocol Titrate (2) Diabetes mellitus type 2 in obese Is this a current diagnosis for this admission?: Yes Plan: Sliding scale insulin (3) Malnutrition Is this a current diagnosis for this admission?: Yes Plan: TPN versus interval protein feedings (4) Multifocal pneumonia Is this a current diagnosis for this admission?: Yes Plan: Chest x-ray somewhat improved minute ventilation down FiO2 lower airway pressures decreased normal suggest patient could be successfully extubated will proceed with extubation - Time Total Critical Time (Minutes): 45
--- NOTE | 2018-11-18 15:23 | PDOC PROGRESS REPORT ---
Subjective Progress Note for:: 11/16/18 Subjective:: on BiPAP stable at this time Reason For Visit: SEPSIS, BILATERAL PNEUMONIA, HYPOTENSION, Physical Exam Vital Signs: Temp Pulse Resp BP Pulse Ox 97.6 F 98 24 H 128/87 H 98 11/17/18 07:17 11/17/18 08:12 11/17/18 08:12 11/17/18 06:03 11/17/18 08:12 Intake & Output 11/16/18 11/17/18 11/18/18 06:59 06:59 06:59 Intake Total 456 2108 Output Total 2470 1920 1100 -2013 188 -1100 Weight 60.7 kg 60.4 kg General appearance: PRESENT: no acute distress, disheveled, thin. ABSENT: cooperative Head exam: PRESENT: atraumatic, normocephalic Eye exam: PRESENT: conjunctiva pale, EOMI. ABSENT: nystagmus, scleral icterus Mouth exam: PRESENT: dry mucosa, neck supple, tongue midline Neck exam: ABSENT: carotid bruit, JVD, lymphadenopathy, thyromegaly, tracheal deviation, tracheostomy Respiratory exam: PRESENT: decreased breath sounds, prolonged expiratory phas, rales, rhonchi, tachypnea, unlabored. ABSENT: retraction Cardiovascular exam: PRESENT: RRR, +S1, +S2, tachycardia Pulses: PRESENT: normal radial pulses GI/Abdominal exam: PRESENT: soft Gentrourinary exam: PRESENT: indwelling catheter Extremities exam: PRESENT: pedal edema. ABSENT: calf tenderness, clubbing, joint swelling Musculoskeletal exam: ABSENT: ambulatory, deformity, dislocation Neurological exam: PRESENT: altered Skin exam: PRESENT: dry, warm, other - Decubiti Results Laboratory Results: 11/16/18 22:15 11/17/18 06:15 11/16/18 11/16/18 11/16/18 22:15 22:15 22:15 WBC 13.1 H RBC 3.25 L Hgb 10.6 L Hct 31.3 L MCV 96 MCH 32.7 MCHC 34.0 RDW 18.0 H Plt Count 242 Seg Neutrophils % Not Reportable Lymphocytes % Not Reportable Monocytes % Not Reportable Eosinophils % Not Reportable Basophils % Not Reportable Absolute Neutrophils Not Reportable Absolute Lymphocytes Not Reportable Absolute Monocytes Not Reportable Absolute Eosinophils Not Reportable Absolute Basophils Not Reportable Carbonic Acid HCO3/H2CO3 Ratio ABG pH ABG pCO2 ABG pO2 ABG HCO3 ABG O2 Saturation ABG Base Excess FiO2 Sodium 140.5 Potassium 3.4 L D Chloride 107 Carbon Dioxide 26 Anion Gap 8 BUN 9 Creatinine 0.41 L Est GFR ( Amer) > 60 Est GFR (Non-Af Amer) > 60 Glucose 85 Lactic Acid 1.1 Calcium 8.0 L Magnesium 2.0 Total Bilirubin 0.6 AST 27 ALT 30 Alkaline Phosphatase 110 Total Protein 4.3 L Albumin 2.3 L 11/16/18 11/17/18 22:30 06:15 WBC RBC Hgb Hct MCV MCH MCHC RDW Plt Count Seg Neutrophils % Lymphocytes % Monocytes % Eosinophils % Basophils % Absolute Neutrophils Absolute Lymphocytes Absolute Monocytes Absolute Eosinophils Absolute Basophils Carbonic Acid 1.10 HCO3/H2CO3 Ratio 25:1 ABG pH 7.50 H ABG pCO2 36.7 ABG pO2 56.5 L ABG HCO3 28.0 H ABG O2 Saturation 91.9 L ABG Base Excess 4.6 FiO2 40% Sodium 143.3 Potassium 4.2 Chloride 112 H Carbon Dioxide 27 Anion Gap 4 L BUN 11 Creatinine 0.37 L Est GFR ( Amer) > 60 Est GFR (Non-Af Amer) > 60 Glucose 92 Lactic Acid Calcium 8.0 L Magnesium 2.1 Total Bilirubin AST ALT Alkaline Phosphatase Total Protein Albumin 11/07/18 11/07/18 11/07/18 08:10 09:57 17:05 Creatine Kinase 89 CK-MB (CK-2) Troponin I Cancelled < 0.012 NT-Pro-B Natriuret Pep Cancelled 172 H 11/07/18 11/07/18 11/07/18 17:05 23:02 23:02 Creatine Kinase 104 CK-MB (CK-2) 0.89 0.92 Troponin I < 0.012 < 0.012 NT-Pro-B Natriuret Pep 11/08/18 11/08/18 11/16/18 05:00 05:00 22:15 Creatine Kinase 73 50 CK-MB (CK-2) 0.68 Troponin I < 0.012 NT-Pro-B Natriuret Pep 11/16/18 11/16/18 22:15 22:15 Creatine Kinase CK-MB (CK-2) 1.07 Troponin I 0.090 NT-Pro-B Natriuret Pep 92614 H Impressions: Abdomen/Pelvis CT 11/07/18 10:58 IMPRESSION: 1. There is severe thickening of the terminal ileum, cecum, and proximal transverse colon, consistent with nonspecific infectious or inflammatory colitis. This pattern of inflammation may be seen in inflammatory bowel disease such as Crohn's disease. Correlate for appropriate history of clinical signs and symptoms if present. 2. Hepatomegaly and severe hepatic steatosis. 3. Status post Shanthi-en-Y gastric bypass. 4. Multifocal bilateral geographic ground-glass pulmonary opacity in the included bilateral lung bases, an unusual pattern that can be seen in atypical infection as well as inflammatory pneumonitis such as organizing pneumonia. Chest/Abdomen CTA 11/09/18 09:21 IMPRESSION: 1. Ground-glass opacities and bilateral effusions. Similar appearance to February study, suspect recurrent pulmonary edema. Superimposed consolidation most notable in the left upper lobe. This may reflect pneumonia. 2. No pulmonary embolus. KUB X-Ray 11/13/18 00:00 IMPRESSION: Esophagogastric tube with tip and side port below the diaphragm, likely within a gastric pouch status post Shanthi-en-Y bypass given the configuration of surgical findings. Distended loops of bowel in the mid abdomen are concerning for bowel obstruction. There is no obvious free air in the ab domen on limited supine radiograph. Chest X-Ray 11/16/18 06:00 IMPRESSION: No significant change. Head CT 11/16/18 21:25 IMPRESSION: No acute intracranial hemorrhage. Assessment & Plan - Diagnosis (1) Gram negative septic shock Is this a current diagnosis for this admission?: Yes Plan: As per cultures Labs- All tests 24 hr 11/08/18 11/09/18 16:30 06:40 WBC 24.0 H 18.0 H Generic Name Dose Route Start Last Admin Trade Name Freq PRN Reason Stop Dose Admin Norepinephrine Bitartrate 4 mg 250 mls @ 0 mls/hr 11/09/18 22:10 11/10/18 14:00 / Dextrose IV 12/09/18 22:09 0 mls/hr CONTINUOUS PRN 0 mcg/min THIS MED IS NOT "PRN" Protocol Titrate Vasopressin 100 unit/ Dextrose 250 mls @ 0 mls/hr 11/08/18 15:10 11/10/18 09:03 IV 12/08/18 15:09 4.5 mls/hr CONTINUOUS PRN 0.03 unit/min THIS MED IS NOT "PRN" Protocol Titrate (2) Diabetes mellitus type 2 in obese Is this a current diagnosis for this admission?: Yes Plan: Sliding scale insulin (3) Malnutrition Is this a current diagnosis for this admission?: Yes Plan: TPN versus interval protein feedings (4) Multifocal pneumonia Is this a current diagnosis for this admission?: Yes Plan: Chest x-ray somewhat improved minute ventilation down FiO2 lower airway pressures decreased normal suggest patient could be successfully extubated will proceed with extubation - Time Total Critical Time (Minutes): 50
--- NOTE | 2018-11-18 15:26 | PDOC PROGRESS REPORT ---
Subjective Progress Note for:: 11/17/18 Subjective:: on BiPAP Somewhat more tachypneic at this time Reason For Visit: SEPSIS, BILATERAL PNEUMONIA, HYPOTENSION, Physical Exam Vital Signs: Temp Pulse Resp BP Pulse Ox 97.6 F 98 24 H 128/87 H 98 11/17/18 07:17 11/17/18 08:12 11/17/18 08:12 11/17/18 06:03 11/17/18 08:12 Intake & Output 11/16/18 11/17/18 11/18/18 06:59 06:59 06:59 Intake Total 456 2108 Output Total 2470 1920 1100 -2013 188 -1100 Weight 60.7 kg 60.4 kg General appearance: PRESENT: no acute distress, disheveled, thin Head exam: PRESENT: atraumatic, normocephalic Eye exam: PRESENT: conjunctiva pale, EOMI. ABSENT: nystagmus, scleral icterus Mouth exam: PRESENT: dry mucosa, neck supple, tongue midline Neck exam: ABSENT: carotid bruit, JVD, lymphadenopathy, thyromegaly, tracheal deviation, tracheostomy Respiratory exam: PRESENT: decreased breath sounds, prolonged expiratory phas, rales, rhonchi, tachypnea. ABSENT: retraction Cardiovascular exam: PRESENT: RRR, +S1, +S2, tachycardia Pulses: PRESENT: normal radial pulses GI/Abdominal exam: PRESENT: soft Gentrourinary exam: PRESENT: indwelling catheter Extremities exam: PRESENT: pedal edema. ABSENT: calf tenderness, clubbing, j oint swelling Musculoskeletal exam: ABSENT: ambulatory, deformity, dislocation Neurological exam: PRESENT: altered Skin exam: PRESENT: dry, warm, other - Decubiti Results Laboratory Results: 11/16/18 22:15 11/17/18 06:15 11/16/18 11/16/18 11/16/18 22:15 22:15 22:15 WBC 13.1 H RBC 3.25 L Hgb 10.6 L Hct 31.3 L MCV 96 MCH 32.7 MCHC 34.0 RDW 18.0 H Plt Count 242 Seg Neutrophils % Not Reportable Lymphocytes % Not Reportable Monocytes % Not Reportable Eosinophils % Not Reportable Basophils % Not Reportable Absolute Neutrophils Not Reportable Absolute Lymphocytes Not Reportable Absolute Monocytes Not Reportable Absolute Eosinophils Not Reportable Absolute Basophils Not Reportable Carbonic Acid HCO3/H2CO3 Ratio ABG pH ABG pCO2 ABG pO2 ABG HCO3 ABG O2 Saturation ABG Base Excess FiO2 Sodium 140.5 Potassium 3.4 L D Chloride 107 Carbon Dioxide 26 Anion Gap 8 BUN 9 Creatinine 0.41 L Est GFR ( Amer) > 60 Est GFR (Non-Af Amer) > 60 Glucose 85 Lactic Acid 1.1 Calcium 8.0 L Magnesium 2.0 Total Bilirubin 0.6 AST 27 ALT 30 Alkaline Phosphatase 110 Total Protein 4.3 L Albumin 2.3 L 11/16/18 11/17/18 22:30 06:15 WBC RBC Hgb Hct MCV MCH MCHC RDW Plt Count Seg Neutrophils % Lymphocytes % Monocytes % Eosinophils % Basophils % Absolute Neutrophils Absolute Lymphocytes Absolute Monocytes Absolute Eosinophils Absolute Basophils Carbonic Acid 1.10 HCO3/H2CO3 Ratio 25:1 ABG pH 7.50 H ABG pCO2 36.7 ABG pO2 56.5 L ABG HCO3 28.0 H ABG O2 Saturation 91.9 L ABG Base Excess 4.6 FiO2 40% Sodium 143.3 Potassium 4.2 Chloride 112 H Carbon Dioxide 27 Anion Gap 4 L BUN 11 Creatinine 0.37 L Est GFR ( Amer) > 60 Est GFR (Non-Af Amer) > 60 Glucose 92 Lactic Acid Calcium 8.0 L Magnesium 2.1 Total Bilirubin AST ALT Alkaline Phosphatase Total Protein Albumin 11/07/18 11/07/18 11/07/18 08:10 09:57 17:05 Creatine Kinase 89 CK-MB (CK-2) Troponin I Cancelled < 0.012 NT-Pro-B Natriuret Pep Cancelled 172 H 11/07/18 11/07/18 11/07/18 17:05 23:02 23:02 Creatine Kinase 104 CK-MB (CK-2) 0.89 0.92 Troponin I < 0.012 < 0.012 NT-Pro-B Natriuret Pep 11/08/18 11/08/18 11/16/18 05:00 05:00 22:15 Creatine Kinase 73 50 CK-MB (CK-2) 0.68 Troponin I < 0.012 NT-Pro-B Natriuret Pep 11/16/18 11/16/18 22:15 22:15 Creatine Kinase CK-MB (CK-2) 1.07 Troponin I 0.090 NT-Pro-B Natriuret Pep 67163 H Impressions: Abdomen/Pelvis CT 11/07/18 10:58 IMPRESSION: 1. There is severe thickening of the terminal ileum, cecum, and proximal transverse colon, consistent with nonspecific infectious or inflammat ory colitis. This pattern of inflammation may be seen in inflammatory bowel disease such as Crohn's disease. Correlate for appropriate history of clinical signs and symptoms if present. 2. Hepatomegaly and severe hepatic steatosis. 3. Status post Shanthi-en-Y gastric bypass. 4. Multifocal bilateral geographic ground-glass pulmonary opacity in the included bilateral lung bases, an unusual pattern that can be seen in atypical infection as well as inflammatory pneumonitis such as organizing pneumonia. Chest/Abdomen CTA 11/09/18 09:21 IMPRESSION: 1. Ground-glass opacities and bilateral effusions. Similar appearance to February study, suspect recurrent pulmonary edema. Superimposed consolidation most notable in the left upper lobe. This may reflect pneumonia. 2. No pulmonary embolus. KUB X-Ray 11/13/18 00:00 IMPRESSION: Esophagogastric tube with tip and side port below the diaphragm, likely within a gastric pouch status post Shanthi-en-Y bypass given the configuration of surgical findings. Distended loops of bowel in the mid abdomen are concerning for bowel obstruction. There is no obvious free air in the abdomen on limited supine radiograph. Chest X-Ray 11/16/18 06:00 IMPRESSION: No significant change. Head CT 11/16/18 21:25 IMPRESSION: No acute intracranial hemorrhage. Assessment & Plan - Diagnosis (1) Gram negative septic shock Is this a current diagnosis for this admission?: Yes Plan: As per cultures Labs- All tests 24 hr 11/08/18 11/09/18 16:30 06:40 WBC 24.0 H 18.0 H Generic Name Dose Route Start Last Admin Trade Name Freq PRN Reason Stop Dose Admin Norepinephrine Bitartrate 4 mg 250 mls @ 0 mls/hr 11/09/18 22:10 11/10/18 14:00 / Dextrose IV 12/09/18 22:09 0 mls/hr CONTINUOUS PRN 0 mcg/min THIS MED IS NOT "PRN" Protocol Titrate Vasopressin 100 unit/ Dextrose 250 mls @ 0 mls/hr 11/08/18 15:10 11/10/18 09:03 IV 12/08/18 15:09 4.5 mls/hr CONTINUOUS PRN 0.03 unit/min THIS MED IS NOT "PRN" Protocol Titrate (2) Diabetes mellitus type 2 in obese Is this a current diagnosis for this admission?: Yes Plan: Sliding scale insulin (3) Malnutrition Is this a current diagnosis for this admission?: Yes Plan: TPN versus interval protein feedings (4) Multifocal pneumonia Is this a current diagnosis for this admission?: Yes Plan: Chest x-ray little worse increasing tachypnea forced to reintubate - Time Total Critical Time (Minutes): 55
--- NOTE | 2018-11-18 22:04 | PDOC PROGRESS REPORT ---
Subjective Progress Note for:: 11/18/18 Subjective:: Patient remain intubated Reason For Visit: SEPSIS, BILATERAL PNEUMONIA, HYPOTENSION, Physical Exam Vital Signs: Temp Pulse Resp BP Pulse Ox 99.0 F 80 18 89/61 L 97 11/18/18 21:38 11/18/18 21:05 11/18/18 21:05 11/18/18 18:00 11/18/18 21:05 Intake & Output 11/17/18 11/18/18 11/19/18 06:59 06:59 06:59 Intake Total 2108 1582 1192 Output Total 1029 7546 0197 Balance 265 -0033 -250 Weight 60.4 kg 58 kg Results Laboratory Results: 11/17/18 16:40 11/18/18 13:10 11/18/18 11/18/18 11/18/18 04:30 04:40 13:10 Carbonic Acid 0.86 L HCO3/H2CO3 Ratio 26:1 ABG pH 7.53 H ABG pCO2 28.7 L ABG pO2 78.9 L ABG HCO3 23.2 ABG O2 Saturation 96.9 ABG Base Excess 1.1 FiO2 50% Sodium 142.4 Potassium 2.8 L* 3.1 L Chloride 109 H Carbon Dioxide 26 Anion Gap 7 BUN 12 Creatinine 0.34 L Est GFR ( Amer) > 60 Est GFR (Non-Af Amer) > 60 Glucose 127 H Calcium 7.7 L Magnesium 2.0 11/07/18 11/07/18 11/07/18 08:10 09:57 17:05 Creatine Kinase 89 CK-MB (CK-2) Troponin I Cancelled < 0.012 NT-Pro-B Natriuret Pep Cancelled 172 H 11/07/18 11/07/18 11/07/18 17:05 23:02 23:02 Creatine Kinase 104 CK-MB (CK-2) 0.89 0.92 Troponin I < 0.012 < 0.012 NT-Pro-B Natriuret Pep 11/08/18 11/08/18 11/16/18 05:00 05:00 22:15 Creatine Kinase 73 50 CK-MB (CK-2) 0.68 Troponin I < 0.012 NT-Pro-B Natriuret Pep 11/16/18 11/16/18 22:15 22:15 Creatine Kinase CK-MB (CK-2) 1.07 Troponin I 0.090 NT-Pro-B Natriuret Pep 01642 H Impressions: Abdomen/Pelvis CT 11/07/18 10:58 IMPRESSION: 1. There is severe thickening of the terminal ileum, cecum, and proximal transverse colon, consistent with nonspecific infectious or inflammatory colitis. This pattern of inflammation may be seen in inflammatory bowel disease such as Crohn's disease. Correlate for appropriate history of clinical signs and symptoms if present. 2. Hepatomegaly and severe hepatic steatosis. 3. Status post Shanthi-en-Y gastric bypass. 4. Multifocal bilateral geographic ground-glass pulmonary opacity in the included bilateral lung bases, an unusual pattern that can be seen in atypical infection as well as inflammatory pneumonitis such as organizing pneumonia. Chest/Abdomen CTA 11/09/18 09:21 IMPRESSION: 1. Ground-glass opacities and bilateral effusions. Similar appearance to February study, suspect recurrent pulmonary edema. Superimposed consolidation most notable in the left upper lobe. This may reflect pneumonia. 2. No pulmonary embolus. KUB X-Ray 11/13/18 00:00 IMPRESSION: Esophagogastric tube with tip and side port below the diaphragm, likely within a gastric pouch status post Shanthi-en-Y bypass given the c onfiguration of surgical findings. Distended loops of bowel in the mid abdomen are concerning for bowel obstruction. There is no obvious free air in the abdomen on limited supine radiograph. Head CT 11/16/18 21:25 IMPRESSION: No acute intracranial hemorrhage. Chest X-Ray 11/18/18 06:00 IMPRESSION: 1. Since the prior examination dated 11/17/2018, some improvement in the appearance of the lungs with a slight to mild decrease in the bilateral diffuse airspace/interstitial disease. Small bilateral pleural effusions, unchanged findings. Assessment & Plan - Diagnosis (1) Septic shock Is this a current diagnosis for this admission?: Yes (2) Metabolic alkalosis Is this a current diagnosis for this admission?: Yes (3) Sacral decubitus ulcer, stage IV Is this a current diagnosis for this admission?: Yes (4) Colitis Is this a current diagnosis for this admission?: Yes (5) Multifocal pneumonia Is this a current diagnosis for this admission?: Yes Plan: Continue triple IV antibiotic (6) Hemiparesis affecting left side as late effect of cerebrovascular accident Is this a current diagnosis for this admission?: Yes (7) Hypoalbuminemia Is this a current diagnosis for this admission?: Yes (8) Hypokalemia Is this a current diagnosis for this admission?: Yes (9) Acute hypoxemic respiratory failure Is this a current diagnosis for this admission?: Yes Plan: Continue vent management (10) Oliguria Is this a current diagnosis for this admission?: Yes Plan: Change IV fluid to Ringer's lactate at 120cc/hr
[2018-11-18 23:34] LABS: BLOOD UREA NITROGEN 11 mg/dL (7-20); CALCIUM 7.4 mg/dL (8.4-10.2); GLUCOSE 129 mg/dL (75-110); POTASSIUM 3.4 mmol/L (3.6-5.0)
[2018-11-18 23:40] LABS: CARBON DIOXIDE 28 mmol/L (22-30); CHLORIDE 106 mmol/L (98-107); SODIUM 136.8 mmol/L (137-145)
[2018-11-18 23:50] LABS: ANION GAP 3 (5-19)
[2018-11-19] MEDS: CLINDAMYCIN 600 MG/D5W RTU 600 MG/50 ML RTUPB IV SCH ×3 (00:34→15:04)
[2018-11-19] MEDS: IPRATROPIUM/ALBUTEROL 0.5-2.5 MG/3 ML AMPUL NEB SCH ×4 (01:40→20:08)
[2018-11-19] MEDS: PROPOFOL 1,000 MG/100 ML INFUS..BTL IV PRN ×3 (01:47→17:21)
[2018-11-19] MEDS: AZTREONAM 1 GM in DEXTROSE 5%-WATER 50 ML IV SCH ×3 (02:29→17:21)
[2018-11-19 06:01] LABS: ARTERIAL BLOOD BASE EXCESS 3.6 mmol/L; ARTERIAL BLOOD H2CO3 0.96 mmol/L (1.05-1.35); ARTERIAL BLOOD O2 SATURATION 97.2 % (94-98); ARTERIAL BLOOD PCO2 31.8 mmHg (35-45); ARTERIAL BLOOD PH 7.53 (7.35-7.45); ARTERIAL BLOOD PO2 82.3 mmHg (80-100)
[2018-11-19 06:02] LABS: ARTERIAL BLOOD FIO2 40%
[2018-11-19] MEDS: VANCOMYCIN HCL 1,000 MG in DEXTROSE 5%-WATER 250 ML IV SCH ×3 (06:02→21:18)
[2018-11-19 06:03] LABS: ABSOLUTE LYMPHOCYTES (AUTO) 0.8 10^3/uL (0.5-4.7); ABSOLUTE MONOCYTES (AUTO) 0.3 10^3/uL (0.1-1.4); ABSOLUTE NEUT (AUTO) 8.8 10^3/uL (1.7-8.2); BASOPHILS % (AUTO) 0.4 % (0-2); EOSINOPHILS % (AUTO) 0.2 % (0-6); HEMOGLOBIN 9.9 g/dL (12.0-15.5); LYMPHOCYTES % (AUTO) 8.5 % (13-45); MEAN CORPUSCULAR HEMOGLOBIN 32.9 pg (27.0-33.4); MEAN CORPUSCULAR VOLUME 97 fl (80-97); MONOCYTES % (AUTO) 2.8 % (3-13); PLATELET COUNT 180 10^3/uL (150-450); SEGMENTED NEUTROPHILS % (AUTO) 88.1 % (42-78); TOTAL CELLS COUNTED % (AUTO) 100 %
[2018-11-19] MEDS: HYDROCORTISONE SOD SUCCINATE INJ/PF 100 MG/2 ML SDV IV SCH ×3 (06:06→21:21)
[2018-11-19] MEDS: FUROSEMIDE INJ/PF 40 MG/4 ML SDV IV SCH (06:06)
[2018-11-19] MEDS: LEVOTHYROXINE SODIUM 0.088 MG TABLET NG SCH (06:07)
[2018-11-19] MEDS: HEPARIN SOD (PORCINE) 5,000 UNIT/ML 1 ML SYRINGE SUBCUT SCH ×3 (06:07→21:21)
[2018-11-19] MEDS: LACTOBACILLUS ACIDOPHILUS 250 MG TAB NG SCH ×2 (06:07→17:21)
[2018-11-19 06:26] LABS: BLOOD UREA NITROGEN 11 mg/dL (7-20); CALCIUM 7.5 mg/dL (8.4-10.2); GLUCOSE 101 mg/dL (75-110); POTASSIUM 3.2 mmol/L (3.6-5.0)
[2018-11-19 06:31] LABS: CARBON DIOXIDE 28 mmol/L (22-30); CHLORIDE 106 mmol/L (98-107); VANCOMYCIN,TROUGH 14.8 ug/mL (5.0-20.0)
[2018-11-19 06:38] LABS: ANION GAP 3 (5-19)
--- NOTE | 2018-11-19 07:07 | RADIOLOGY REPORT (SQ) ---
EXAM DESCRIPTION: X-ray single view chest. CLINICAL HISTORY: 48 years Female, REsp Failure COMPARISON: 11/18/2018 and 11/17/2018 TECHNIQUE: Single portable view of the chest performed on 11/19/2018 at 6:29 AM FINDINGS: The lungs are well expanded. There is persistent moderate to marked diffuse bilateral airspace disease without significant interval change. Bilateral pleural effusions are suspected. There is no evidence of a pneumothorax. The cardiac silhouette is stable and grossly within normal limits. The mediastinal contours are normal. No acute osseous abnormality is identified. No focal soft tissue abnormalities are seen. Lines and tubes: The right subclavian central venous catheter, endotracheal tube and feeding tube are grossly stable. IMPRESSION: Overall, no significant change when compared to the prior studies. There is ongoing moderate to marked diffuse bilateral airspace disease with grossly stable life support lines and tubes.
[2018-11-19] MEDS: ACETYLCYSTEINE 20% SOLN 800 MG/4 ML VIAL.NEB NEB SCH ×2 (08:28→20:08)
[2018-11-19] MEDS: TOPIRAMATE 25 MG TABLET NG SCH ×2 (08:38→17:22)
[2018-11-19] MEDS: POTASSIUM CHLORIDE 20 MEQ/50 ML RTU IV SCH ×4 (08:39→20:38)
[2018-11-19] MEDS: FAMOTIDINE INJ/PF 20 MG/2 ML SDV IV SCH ×2 (10:52→21:22)
[2018-11-19] MEDS: COLLAGENASE CLOSTRIDIUM HIST. OINT 30 GM TP SCH ×2 (10:53→17:22)
[2018-11-19] MEDS: POTASSI CL 20 MEQ/D5LR 1L 20 MEQ/1,000 ML RTUINJ IV PRN (17:26)
--- NOTE | 2018-11-19 20:09 | PDOC PROGRESS REPORT ---
Subjective Progress Note for:: 11/19/18 Subjective:: Patient is still on mechanical ventilation Reason For Visit: SEPSIS, BILATERAL PNEUMONIA, HYPOTENSION, Physical Exam Vital Signs: Temp Pulse Resp BP Pulse Ox 98.6 F 79 18 113/71 96 11/19/18 18:00 11/19/18 14:10 11/19/18 18:00 11/19/18 17:36 11/19/18 18:00 Intake & Output 11/18/18 11/19/18 11/20/18 06:59 06:59 06:59 Intake Total 1582 2656 2068 Output Total 3120 2115 1950 Balance -1538 541 118 Weight 58 kg 60.2 kg Eye exam: PRESENT: PERRLA Respiratory exam: PRESENT: other - Auscultation revealed diminished air entry in both lung field GI/Abdominal exam: PRESENT: soft Results Laboratory Results: 11/19/18 05:51 11/19/18 15:00 11/18/18 11/19/18 11/19/18 23:05 05:51 05:51 WBC RBC Hgb Hct MCV MCH MCHC RDW Plt Count Seg Neutrophils % Lymphocytes % Monocytes % Eosinophils % Basophils % Absolute Neutrophils Absolute Lymphocytes Absolute Monocytes Absolute Eosinophils Absolute Basophils Carbonic Acid 0.96 L HCO3/H2CO3 Ratio 27:1 ABG pH 7.53 H ABG pCO2 31.8 L ABG pO2 82.3 ABG HCO3 26.0 H ABG O2 Saturation 97.2 ABG Base Excess 3.6 FiO2 40% Sodium 136.8 L 137.0 Potassium 3.4 L 3.2 L Chloride 106 106 Carbon Dioxide 28 28 Anion Gap 3 L 3 L BUN 11 11 Creatinine 0.28 L 0.32 L Est GFR ( Amer) > 60 > 60 Est GFR (Non-Af Amer) > 60 > 60 Glucose 129 H 101 Calcium 7.4 L 7.5 L Magnesium 1.8 11/19/18 11/19/18 05:51 15:00 WBC 10.0 RBC 3.00 L Hgb 9.9 L Hct 29.0 L MCV 97 MCH 32.9 MCHC 34.0 RDW 17.0 H Plt Count 180 Seg Neutrophils % 88.1 H Lymphocytes % 8.5 L Monocytes % 2.8 L Eosinophils % 0.2 Basophils % 0.4 Absolute Neutrophils 8.8 H Absolute Lymphocytes 0.8 Absolute Monocytes 0.3 Absolute Eosinophils 0.0 Absolute Basophils 0.0 Carbonic Acid HCO3/H2CO3 Ratio ABG pH ABG pCO2 ABG pO2 ABG HCO3 ABG O2 Saturation ABG Base Excess FiO2 Sodium Potassium 3.1 L Chloride Carbon Dioxide Anion Gap BUN Creatinine Est GFR ( Amer) Est GFR (Non-Af Amer) Glucose Calcium Magnesium 11/07/18 11/07/18 11/07/18 08:10 09:57 17:05 Creatine Kinase 89 CK-MB (CK-2) Troponin I Cancelled < 0.012 NT-Pro-B Natriuret Pep Cancelled 172 H 11/07/18 11/07/18 11/07/18 17:05 23:02 23:02 Creatine Kinase 104 CK-MB (CK-2) 0.89 0.92 Troponin I < 0.012 < 0.012 NT-Pro-B Natriuret Pep 11/08/18 11/08/18 11/16/18 05:00 05:00 22:15 Creatine Kinase 73 50 CK-MB (CK-2) 0.68 Troponin I < 0.012 NT-Pro-B Natriuret Pep 11/16/18 11/16/18 22:15 22:15 Creatine Kinase CK-MB (CK-2) 1.07 Troponin I 0.090 NT-Pro-B Natriuret Pep 20055 H Impressions: Abdomen/Pelvis CT 11/07/18 10:58 IMPRESSION: 1. There is severe thickening of the terminal ileum, cecum, and proximal transverse colon, consistent with nonspecific infectious or inflammatory colitis. This pattern of inflammation may be seen in inflammatory bowel disease such as Crohn's disease. Correlate for appropriate history of clinical signs and symptoms if present. 2. Hepatomegaly and severe hepatic steatosis. 3. Status post Shanthi-en-Y gastric bypass. 4. Multifocal bilateral geographic ground-glass pulmonary opacity in the included bilateral lung bases, an unusual pattern that can be seen in atypical infection as well as inflammatory pneumonitis such as organizing pneumonia. Chest/Abdomen CTA 11/09/18 09:21 IMPRESSION: 1. Ground-glass opacities and bilateral effusions. Similar appearance to February study, suspect recurrent pulmonary edema. Superimposed consolidation most notable in the left upper lobe. This may reflect pneumonia. 2. No pulmonary embolus. KUB X-Ray 11/13/18 00:00 IMPRESSION: Esophagogastric tube with tip and side port below the diaphragm, likely within a gastric pouch status post Shanthi-en-Y bypass given the configuration of surgical findings. Distended loops of bowel in the mid abdomen are concerning for bowel obstruction. There is no obvious free air in the abdomen on limited supine radiograph. Head CT 11/16/18 21:25 IMPRESSION: No acute intracranial hemorrhage. Chest X-Ray 11/19/18 06:00 IMPRESSION: Overall, no significant change when compared to the prior studies. There is ongoing moderate to marked diffuse bilateral airspace disease with grossly stable life support lines and tubes. Assessment & Plan - Diagnosis (1) Septic shock Is this a current diagnosis for this admission?: Yes (2) Metabolic alkalosis Is this a current diagnosis for this admission?: Yes (3) Sacral decubitus ulcer, stage IV Is this a current diagnosis for this admission?: Yes (4) Colitis Is this a current diagnosis for this admission?: Yes (5) Multifocal pneumonia Is this a current diagnosis for this admission?: Yes (6) Hemiparesis affecting left side as late effect of cerebrovascular accident Is this a current diagnosis for this admission?: Yes (7) Hypoalbuminemia Is this a current diagnosis for this admission?: Yes (8) Hypokalemia Is this a current diagnosis for this admission?: Yes (9) Acute hypoxemic respiratory failure Is this a current diagnosis for this admission?: Yes (10) Oliguria Is this a current diagnosis for this admission?: Yes - Plan Summary Plan Summary: Continue present vent support, IV antibiotic nutrition via NG tube
[2018-11-20] MEDS: PROPOFOL 1,000 MG/100 ML INFUS..BTL IV PRN ×4 (00:16→21:37)
[2018-11-20] MEDS: MIDAZOLAM HCL 50 MG/100 ML RTUINJ IV PRN (00:16)
[2018-11-20] MEDS: CLINDAMYCIN 600 MG/D5W RTU 600 MG/50 ML RTUPB IV SCH ×4 (00:17→23:58)
[2018-11-20 00:34] LABS: BLOOD UREA NITROGEN 9 mg/dL (7-20); CALCIUM 7.3 mg/dL (8.4-10.2); CARBON DIOXIDE 26 mmol/L (22-30); CHLORIDE 106 mmol/L (98-107); GLUCOSE 97 mg/dL (75-110); POTASSIUM 3.4 mmol/L (3.6-5.0); SODIUM 136.2 mmol/L (137-145)
[2018-11-20 00:35] LABS: ANION GAP 4 (5-19)
[2018-11-20] MEDS: IPRATROPIUM/ALBUTEROL 0.5-2.5 MG/3 ML AMPUL NEB SCH ×4 (01:39→19:54)
[2018-11-20] MEDS: AZTREONAM 1 GM in DEXTROSE 5%-WATER 50 ML IV SCH ×3 (02:32→18:01)
[2018-11-20] MEDS: POTASSIUM CHLORIDE 20 MEQ/50 ML RTU IV SCH ×4 (02:48→14:51)
[2018-11-20] MEDS: VANCOMYCIN HCL 1,000 MG in DEXTROSE 5%-WATER 250 ML IV SCH ×3 (05:26→21:33)
[2018-11-20] MEDS: LACTOBACILLUS ACIDOPHILUS 250 MG TAB NG SCH ×2 (05:28→18:01)
[2018-11-20] MEDS: HEPARIN SOD (PORCINE) 5,000 UNIT/ML 1 ML SYRINGE SUBCUT SCH ×3 (05:28→21:35)
[2018-11-20] MEDS: FUROSEMIDE INJ/PF 40 MG/4 ML SDV IV SCH (05:28)
[2018-11-20] MEDS: LEVOTHYROXINE SODIUM 0.088 MG TABLET NG SCH (05:28)
[2018-11-20] MEDS: HYDROCORTISONE SOD SUCCINATE INJ/PF 100 MG/2 ML SDV IV SCH ×3 (05:28→21:33)
[2018-11-20 06:29] LABS: BLOOD UREA NITROGEN 9 mg/dL (7-20); CALCIUM 7.6 mg/dL (8.4-10.2); GLUCOSE 102 mg/dL (75-110); POTASSIUM 3.8 mmol/L (3.6-5.0)
[2018-11-20 06:34] LABS: CARBON DIOXIDE 27 mmol/L (22-30); CHLORIDE 108 mmol/L (98-107); SODIUM 137.8 mmol/L (137-145)
[2018-11-20 06:38] LABS: ARTERIAL BLOOD BASE EXCESS 3.3 mmol/L; ARTERIAL BLOOD H2CO3 0.91 mmol/L (1.05-1.35); ARTERIAL BLOOD HCO3 25.4 mmol/L (20-24); ARTERIAL BLOOD O2 SATURATION 98.1 % (94-98); ARTERIAL BLOOD PCO2 30.3 mmHg (35-45); ARTERIAL BLOOD PH 7.54 (7.35-7.45); ARTERIAL BLOOD PO2 96.5 mmHg (80-100); ARTERIAL BLOOD TOTAL CO2 26.4 mmol/L (21-25)
[2018-11-20 06:38] LABS: ANION GAP 3 (5-19)
[2018-11-20 06:39] LABS: ARTERIAL BLOOD FIO2 40%
[2018-11-20] MEDS: TOPIRAMATE 25 MG TABLET NG SCH ×2 (08:29→18:01)
[2018-11-20] MEDS: ACETYLCYSTEINE 20% SOLN 800 MG/4 ML VIAL.NEB NEB SCH ×2 (08:36→19:53)
[2018-11-20] MEDS: MORPHINE SULFATE 10 MG/ML INJ IV PRN ×2 (08:48→14:50)
--- NOTE | 2018-11-20 09:14 | RADIOLOGY REPORT (SQ) ---
EXAM DESCRIPTION: CHEST SINGLE VIEW COMPLETED DATE/TIME: 11/20/2018 6:29 am REASON FOR STUDY: REsp Failure COMPARISON: 11/19/2018 NUMBER OF VIEWS: One view. TECHNIQUE: Single frontal radiographic image of the chest acquired. LIMITATIONS: None. FINDINGS: LUNGS AND PLEURA: Bilateral airspace disease, left greater than right. No evidence of cav itation. No pneumothorax. MEDIASTINUM AND HEART: Stable heart size and mediastinal structures. SUPPORT DEVICES: Appropriate location without change. BONY STRUCTURES: No acute findings. HARDWARE: None. OTHER: No other significant finding. IMPRESSION: Asymmetric edema or pneumonia. No significant change. Reading location - IP/workstation name: [email or web address]
[2018-11-20] MEDS: FAMOTIDINE INJ/PF 20 MG/2 ML SDV IV SCH ×2 (10:38→21:33)
[2018-11-20] MEDS: COLLAGENASE CLOSTRIDIUM HIST. OINT 30 GM TP SCH ×2 (10:39→18:02)
--- NOTE | 2018-11-20 15:56 | PDOC PROGRESS REPORT ---
Subjective Progress Note for:: 11/19/18 Subjective:: intubated and sedated Reason For Visit: SEPSIS, BILATERAL PNEUMONIA, HYPOTENSION, Physical Exam Vital Signs: Temp Pulse Resp BP Pulse Ox 98.6 F 75 18 118/95 H 100 11/19/18 06:00 11/19/18 08:28 11/19/18 08:28 11/19/18 05:34 11/19/18 08:28 Intake & Output 11/18/18 11/19/18 11/20/18 06:59 06:59 06:59 Intake Total 1582 2606 1350 Output Total 3120 2115 Balance -4214 355 1373 Weight 58 kg 60.2 kg General appearance: PRESENT: no acute distress, cooperative, disheveled, well- developed, well-nourished Head exam: PRESENT: atraumatic, normocephalic Eye exam: PRESENT: conjunctiva pale, EOMI. ABSENT: nystagmus, scleral icterus Mouth exam: PRESENT: dry mucosa, neck supple, tongue midline, other - ET tube Neck exam: ABSENT: carotid bruit, JVD, lymphadenopathy, thyromegaly, tracheal deviation, tracheostomy Respiratory exam: PRESENT: decreased breath sounds, prolonged expiratory phas, rales, rhonchi, unlabored Cardiovascular exam: PRESENT: RRR, +S1, +S2, tachycardia Pulses: PRESENT: normal radial pulses GI/Abdominal exam: PRESENT: soft. ABSENT: tenderness Gentrourinary exam: PRESENT: indwelling catheter Extremities exam: PRESENT: pedal edema. ABSENT: calf tenderness, clubbing, joint swelling Musculoskeletal exam: ABSENT: ambulatory, deformity, dislocation Neurological exam: PRESENT: altered, awake Skin exam: PRESENT: dry, warm, other - decubiti Results Laboratory Results: 11/19/18 05:51 11/19/18 05:51 11/18/18 11/18/18 11/19/18 13:10 23:05 05:51 WBC RBC Hgb Hct MCV MCH MCHC RDW Plt Count Seg Neutrophils % Lymphocytes % Monocytes % Eosinophils % Basophils % Absolute Neutrophils Absolute Lymphocytes Absolute Monocytes Absolute Eosinophils Absolute Basophils Carbonic Acid 0.96 L HCO3/H2CO3 Ratio 27:1 ABG pH 7.53 H ABG pCO2 31.8 L ABG pO2 82.3 ABG HCO3 26.0 H ABG O2 Saturation 97.2 ABG Base Excess 3.6 FiO2 40% Sodium 136.8 L Potassium 3.1 L 3.4 L Chloride 106 Carbon Dioxide 28 Anion Gap 3 L BUN 11 Creatinine 0.28 L Est GFR ( Amer) > 60 Est GFR (Non-Af Amer) > 60 Glucose 129 H Calcium 7.4 L Magnesium 11/19/18 11/19/18 05:51 05:51 WBC 10.0 RBC 3.00 L Hgb 9.9 L Hct 29.0 L MCV 97 MCH 32.9 MCHC 34.0 RDW 17.0 H Plt Count 180 Seg Neutrophils % 88.1 H Lymphocytes % 8.5 L Monocytes % 2.8 L Eosinophils % 0.2 Basophils % 0.4 Absolute Neutrophils 8.8 H Absolute Lymphocytes 0.8 Absolute Monocytes 0.3 Absolute Eosinophils 0.0 Absolute Basophils 0.0 Carbonic Acid HCO3/H2CO3 Ratio ABG pH ABG pCO2 ABG pO2 ABG HCO3 ABG O2 Saturation ABG Base Excess FiO2 Sodium 137.0 Potassium 3.2 L Chloride 106 Carbon Dioxide 28 Anion Gap 3 L BUN 11 Creatinine 0.32 L Est GFR ( Amer) > 60 Est GFR (Non-Af Amer) > 60 Glucose 101 Calcium 7.5 L Magnesium 1.8 11/07/18 11/07/18 11/07/18 08:10 09:57 17:05 Creatine Kinase 89 CK-MB (CK-2) Troponin I Cancelled < 0.012 NT-Pro-B Natriuret Pep Cancelled 172 H 11/07/18 11/07/18 11/07/18 17:05 23:02 23:02 Creatine Kinase 104 CK-MB (CK-2) 0.89 0.92 Troponin I < 0.012 < 0.012 NT-Pro-B Natriuret Pep 11/08/18 11/08/18 11/16/18 05:00 05:00 22:15 Creatine Kinase 73 50 CK-MB (CK-2) 0.68 Troponin I < 0.012 NT-Pro-B Natriuret Pep 11/16/18 11/16/18 22:15 22:15 Creatine Kinase CK-MB (CK-2) 1.07 Troponin I 0.090 NT-Pro-B Natriuret Pep 08707 H Impressions: Abdomen/Pelvis CT 11/07/18 10:58 IMPRESSION: 1. There is severe thickening of the terminal ileum, cecum, and proximal transverse colon, consistent with nonspecific infectious or inflammatory colitis. This pattern of inflammation may be seen in inflammatory bowel disease such as Crohn's disease. Correlate for appropriate history of clinical signs and symptoms if present. 2. Hepatomegaly and severe hepatic steatosis. 3. Status post Shanthi-en-Y gastric bypass. 4. Multifocal bilateral geographic ground-glass pulmonary opacity in the included bilateral lung bases, an unusual pattern that can be seen in atypical infection as well as inflammatory pneumonitis such as organizing pneumonia. Chest/Abdomen CTA 11/09/18 09:21 IMPRESSION: 1. Ground-glass opacities and bilateral effusions. Similar appearance to February study, suspect recurrent pulmonary edema. Superimposed consolidation most notable in the left upper lobe. This may reflect pneumonia. 2. No pulmonary embolus. KUB X-Ray 11/13/18 00:00 IMPRESSION: Esophagogastric tube with tip and side port below the diaphragm, likely within a gastric pouch status post Shanthi-en-Y bypass given the configuration of surgical findings. Distended loops of bowel in the mid abdomen are concerning for bowel obstruction. There is no obvious free air in the abdomen on limited supine radiograph. Head CT 11/16/18 21:25 IMPRESSION: No acute intracranial hemorrhage. Chest X-Ray 11/19/18 06:00 IMPRESSION: Overall, no significant change when compared to the prior studies. There is ongoing moderate to marked diffuse bilateral airspace disease with grossly stable life support lines and tubes. Assessment & Plan - Diagnosis (1) Gram negative septic shock Is this a current diagnosis for this admission?: Yes Plan: stable (2) Diabetes mellitus type 2 in obese Is this a current diagnosis for this admission?: Yes Plan: Sliding scale insulin (3) Malnutrition Is this a current diagnosis for this admission?: Yes Plan: TPN versus interval protein feedings (4) Multifocal pneumonia Is this a current diagnosis for this admission?: Yes Plan: consider LTAC - Time Total Critical Time (Minutes): 45
--- NOTE | 2018-11-20 15:58 | PDOC PROGRESS REPORT ---
Subjective Progress Note for:: 11/20/18 Subjective:: intubated Reason For Visit: SEPSIS, BILATERAL PNEUMONIA, HYPOTENSION, Physical Exam Vital Signs: Temp Pulse Resp BP Pulse Ox 98.8 F 105 H 20 110/76 99 11/20/18 08:00 11/20/18 06:00 11/20/18 06:00 11/20/18 06:00 11/20/18 06:00 Intake & Output 11/19/18 11/20/18 11/21/18 06:59 06:59 06:59 Intake Total 2656 9883 Output Total 2115 2767 1700 Balance 541 7116 -1700 Weight 60.2 kg 60 kg General appearance: PRESENT: no acute distress, cooperative, disheveled, well- developed, well-nourished Head exam: PRESENT: atraumatic, normocephalic Eye exam: PRESENT: conjunctiva pale. ABSENT: nystagmus, scleral icterus Mouth exam: PRESENT: dry mucosa, neck supple, tongue midline, other - ET tube Neck exam: ABSENT: carotid bruit, JVD, lymphadenopathy, thyromegaly, tracheal deviation, tracheostomy Respiratory exam: PRESENT: decreased breath sounds, prolonged expiratory phas, rhonchi, unlabored, wheezes. ABSENT: retraction Cardiovascular exam: PRESENT: RRR, +S1, +S2 Pulses: PRESENT: normal radial pulses GI/Abdominal exam: PRESENT: soft. ABSENT: tenderness Gentrourinary exam: PRESENT: indwelling catheter Extremities exam: PRESENT: pedal edema. ABSENT: calf tenderness, clubbing, joint swelling Musculoskeletal exam: ABSENT: deformity, dislocation Neurological exam: PRESENT: altered, awake Skin exam: PRESENT: dry, warm, other - decubiti Results Laboratory Results: 11/19/18 05:51 11/20/18 05:48 11/19/18 11/19/18 11/20/18 15:00 23:30 05:48 Carbonic Acid HCO3/H2CO3 Ratio ABG pH ABG pCO2 ABG pO2 ABG HCO3 ABG O2 Saturation ABG Base Excess FiO2 Sodium 136.2 L 137.8 Potassium 3.1 L 3.4 L 3.8 Chloride 106 108 H Carbon Dioxide 26 27 Anion Gap 4 L 3 L BUN 9 9 Creatinine 0.29 L 0.33 L Est GFR ( Amer) > 60 > 60 Est GFR (Non-Af Amer) > 60 > 60 Glucose 97 102 Calcium 7.3 L 7.6 L Magnesium 1.9 11/20/18 06:20 Carbonic Acid 0.91 L HCO3/H2CO3 Ratio 27:1 ABG pH 7.54 H ABG pCO2 30.3 L ABG pO2 96.5 ABG HCO3 25.4 H ABG O2 Saturation 98.1 H ABG Base Excess 3.3 FiO2 40% Sodium Potassium Chloride Carbon Dioxide Anion Gap BUN Creatinine Est GFR ( Amer) Est GFR (Non-Af Amer) Glucose Calcium Magnesium 11/07/18 11/07/18 11/07/18 08:10 09:57 17:05 Creatine Kinase 89 CK-MB (CK-2) Troponin I Cancelled < 0.012 NT-Pro-B Natriuret Pep Cancelled 172 H 11/07/18 11/07/18 11/07/18 17:05 23:02 23:02 Creatine Kinase 104 CK-MB (CK-2) 0.89 0.92 Troponin I < 0.012 < 0.012 NT-Pro-B Natriuret Pep 11/08/18 11/08/18 11/16/18 05:00 05:00 22:15 Creatine Kinase 73 50 CK-MB (CK-2) 0.68 Troponin I < 0.012 NT-Pro-B Natriuret Pep 11/16/18 11/16/18 22:15 22:15 Creatine Kinase CK-MB (CK-2) 1.07 Troponin I 0.090 NT-Pro-B Natriuret Pep 61957 H Impressions: Abdomen/Pelvis CT 11/07/18 10:58 IMPRESSION: 1. There is severe thickening of the terminal ileum, cecum, and proximal transverse colon, consistent with nonspecific infectious or inflammatory colitis. This pattern of inflammation may be seen in inflammatory bowel disease such as Crohn's disease. Correlate for appropriate history of clinical signs and symptoms if present. 2. Hepatomegaly and severe hepatic steatosis. 3. Status post Shanthi-en-Y gastric bypass. 4. Multifocal bilateral geographic ground-glass pulmonary opacity in the included bilateral lung bases, an unusual pattern that can be seen in atypical infection as well as inflammatory pneumonitis such as organizing pneumonia. Chest/Abdomen CTA 11/09/18 09:21 IMPRESSION: 1. Ground-glass opacities and bilateral effusions. Similar appearance to Marjorie study, suspect recurrent pulmonary edema. Superimposed consolidation most notable in the left upper lobe. This may reflect pneumonia. 2. No pulmonary embolus. KUB X-Ray 11/13/18 00:00 IMPRESSION: Esophagogastric tube with tip and side port below the diaphragm, likely within a gastric pouch status post Shanthi-en-Y bypass given the configuration of surgical findings. Distended loops of bowel in the mid abdomen are concerning for bowel obstruction. There is no obvious free air in the abdomen on limited supine radiograph. Head CT 11/16/18 21:25 IMPRESSION: No acute intracranial hemorrhage. Assessment & Plan - Diagnosis (1) Gram negative septic shock Is this a current diagnosis for this admission?: Yes Plan: stable (2) Diabetes mellitus type 2 in obese Is this a current diagnosis for this admission?: Yes Plan: Sliding scale insulin (3) Malnutrition Is this a current diagnosis for this admission?: Yes Plan: TPN versus interval protein feedings (4) Multifocal pneumonia Is this a current diagnosis for this admission?: Yes Plan: unchanged;consider LTAC - Time Total Critical Time (Minutes): 45
[2018-11-20] MEDS: POTASSI CL 20 MEQ/D5LR 1L 20 MEQ/1,000 ML RTUINJ IV PRN (18:04)
--- NOTE | 2018-11-20 20:32 | PDOC TRANSFER SUMMARY ---
General - Admit/Disc Date/PCP Admission Date/Primary Care Provider: 11/07/18 14:23 JOHN CANNON MD Discharge Date: 11/21/18 - Discharge Diagnosis (1) Septic shock Is this a current diagnosis for this admission?: Yes (2) Metabolic alkalosis Is this a current diagnosis for this admission?: Yes (3) Sacral decubitus ulcer, stage IV Is this a current diagnosis for this admission?: Yes (4) Colitis Is this a current diagnosis for this admission?: Yes (5) Multifocal pneumonia Is this a current diagnosis for this admission?: Yes (6) Hemiparesis affecting left side as late effect of cerebrovascular accident Is this a current diagnosis for this admission?: Yes (7) Hypoalbuminemia Is this a current diagnosis for this admission?: Yes (8) Hypokalemia Is this a current diagnosis for this admission?: Yes (9) Acute hypoxemic respiratory failure Is this a current diagnosis for this admission?: Yes (10) Oliguria Is this a current diagnosis for this admission?: Yes - Additional Information Home Medications: Benztropine Mesylate 1 mg PO BID 02/18/18 Biotin 5,000 mcg PO [id number] 02/18/18 Esomeprazole Magnesium [Nexium] 40 mg PO DAILY 02/18/18 Levothyroxine Sodium [Synthroid 0.088 mg Tablet] 0.088 mg PO Q6AM 02/18/18 Lurasidone HCl [Latuda] 40 mg PO BIDBS 02/18/18 Lisinopril [Prinivil 2.5 mg Tablet] 2.5 mg PO DAILY #30 tablet 02/28/18 Sertraline HCl [Zoloft 50 mg Tablet] 100 mg PO DAILY 08/20/18 Aspirin [Ecotrin] 81 mg PO DAILY 09/08/18 Amitriptyline HCl [Elavil 100 mg Tablet] 100 mg PO DAILY 11/07/18 Carvedilol [Coreg 3.125 mg Tablet] 3.125 mg PO Q12 11/07/18 Fludrocortisone Acetate [Florinef 0.1 mg Tablet] 0.1 mg PO DAILY 11/07/18 Furosemide [Lasix 40 mg Tablet] 40 mg PO BID 11/07/18 Gabapentin [Neurontin 300 mg Capsule] 300 mg PO Q8 11/07/18 Meloxicam [Mobic] 7.5 mg PO DAILY 11/07/18 Naloxegol Oxalate [Movantik 25 mg Tablet] 25 mg PO QAM 11/07/18 Ondansetron [Zofran Odt 4 mg Tablet] 2 tab PO Q12 11/07/18 Oxycodone HCl [Oxycodone HCl 10 MG Tablet] 10 mg PO Q4HP PRN 11/07/18 Potassium Chloride 20 meq PO DAILY 11/07/18 Topiramate [Topamax] 25 mg PO QAM 11/07/18 Topiramate [Topamax] 50 mg PO QPM 11/07/18 History of Present Illness Admission Date/PCP: 11/07/18 14:23 JOHN CANNON MD History of Present Illness: HILTON [place] is a 48 year old female.Patient came to the emergency room this morning for evaluation of weakness, when EMS arrived at patient's residence the vital signs recorded was temperature 101, heart rate 120 blood pressure was 70 systolic patient was then transported to the emergency room for further evaluation. The blood pressure recorded in the ER was 89 systolic she was also found to have decubitus ulcer in the coccyx that measure 5.5 cm. Initial blood work in the emergency room revealed elevated lactic acid, she was also found to have severe hypokalemia the serum potassium was 1.8 patient denies any diarrhea a CAT scan of the abdomen and pelvis with IV was contrast was performed, it showed multifocal bilateral groundglass lung opacity of the lung bases there is severe cardiomegaly also found was severe thickening of the terminal ileum cecum and proximal transverse colon patient was admitted to ICU I saw in the unit, she recently had left knee replacement done Hospital Course Hospital Course: Patient was admitted on November 07, 2018 when she presented to the emergency room with low blood pressure, severe hypokalemia, severe hypoalbuminemia, sacral decubitus ulcer and also pneumonia. 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 When she was admitted she required multiple pressors to normalize blood pressure, because of the information from the prior providers that she has [place] disease though this was not confirmed, it was felt that she needed IV hydrocortisone because she also has very low blood pressure so she was started on IV hydrocortisone 50 mg IV every 8 hours initially when she was admitted she did not required in mechanial ventilation but she decompensated with increased work of breathing and pneumonia she was intubated on mechanical ventilation.The sacral decubitus ulcer culture was polymicrobial in nature she was seen by the surgeon but it was felt that she does not require a debridement of the ulcer in the sacrum.She has severe hypoalbuminemia, this is not from protein-losing nephropathy the BMI is 24 suggesting that malnutrition is probably not the etiology of the hypoalbuminemia. The CAT scan of the abdomen and pelvis that was done demonstrated hepatomegaly, the liver enzymes are not elevated it was felt that she probably needed to have a liver biopsy when she is more stable to rule out liver cirrhosis as a potential cause of the hypoalbuminemia. She has severe third spacing requiring diuretic and intermittent transfusion with albumin.She is on IV antibiotic, aztreonam, vancomycin, clindamycin this antibiotic is empiric she has a long list of allergy to beta-lactam, carbapenem class of antibiotics.No specific pathogen was cultured from the blood from the sputum.She was initially extubated last week only to be reintubated this week, she developed increased work of breathing about 2 -3 days ago it was felt that she probably aspirated. Because she was reintubated it was felt that she needed to be transferred to a long-term acute care center like [facility] for continunity of care Physical Exam Vital Signs: Temp Pulse Resp BP Pulse Ox 98.2 F 61 18 105/63 98 11/20/18 19:38 11/20/18 19:38 11/20/18 19:38 11/20/18 19:38 11/20/18 19:38 Intake & Output 11/19/18 11/20/18 11/21/18 06:59 06:59 06:59 Intake Total 4666 37742 381 Output Total 4311 1431 1867 Balance 544 0678 -8962 Weight 60.2 kg 60 kg Eye exam: PRESENT: PERRLA Respiratory exam: PRESENT: decreased breath sounds Cardiovascular exam: PRESENT: +S1, +S2 GI/Abdominal exam: PRESENT: soft Neurological exam: PRESENT: other - intubated Results Laboratory Results: 11/19/18 05:51 11/19/18 11/20/18 11/20/18 23:30 05:48 06:20 Carbonic Acid 0.91 L HCO3/H2CO3 Ratio 27:1 ABG pH 7.54 H ABG pCO2 30.3 L ABG pO2 96.5 ABG HCO3 25.4 H ABG O2 Saturation 98.1 H ABG Base Excess 3.3 FiO2 40% Sodium 136.2 L 137.8 Potassium 3.4 L 3.8 Chloride 106 108 H Carbon Dioxide 26 27 Anion Gap 4 L 3 L BUN 9 9 Creatinine 0.29 L 0.33 L Est GFR ( Amer) > 60 > 60 Est GFR (Non-Af Amer) > 60 > 60 Glucose 97 102 Calcium 7.3 L 7.6 L Magnesium 1.9 11/20/18 08:50 Carbonic Acid HCO3/H2CO3 Ratio ABG pH ABG pCO2 ABG pO2 ABG HCO3 ABG O2 Saturation ABG Base Excess FiO2 Sodium Potassium 3.4 L Chloride Carbon Dioxide Anion Gap BUN Creatinine Est GFR ( Amer) Est GFR (Non-Af Amer) Glucose Calcium Magnesium 11/07/18 11/07/18 11/07/18 08:10 09:57 17:05 Creatine Kinase 89 CK-MB (CK-2) Troponin I Cancelled < 0.012 NT-Pro-B Natriuret Pep Cancelled 172 H 11/07/18 11/07/18 11/07/18 17:05 23:02 23:02 Creatine Kinase 104 CK-MB (CK-2) 0.89 0.92 Troponin I < 0.012 < 0.012 NT-Pro-B Natriuret Pep 11/08/18 11/08/18 11/16/18 05:00 05:00 22:15 Creatine Kinase 73 50 CK-MB (CK-2) 0.68 Troponin I < 0.012 NT-Pro-B Natriuret Pep 11/16/18 11/16/18 22:15 22:15 Creatine Kinase CK-MB (CK-2) 1.07 Troponin I 0.090 NT-Pro-B Natriuret Pep 22926 H Impressions: Abdomen/Pelvis CT 11/07/18 10:58 IMPRESSION: 1. There is severe thickening of the terminal ileum, cecum, and proximal transverse colon, consistent with nonspecific infectious or inflammatory colitis. This pattern of inflammation may be seen in inflammatory bowel disease such as Crohn's disease. Correlate for appropriate history of clinical signs and symptoms if present. 2. Hepatomegaly and severe hepatic steatosis. 3. Status post Shanthi-en-Y gastric bypass. 4. Multifocal bilateral geographic ground-glass pulmonary opacity in the included bilateral lung bases, an unusual pattern that can be seen in atypical infection as well as inflammatory pneumonitis such as organizing pneumonia. Chest/Abdomen CTA 11/09/18 09:21 IMPRESSION: 1. Ground-glass opacities and bilateral effusions. Similar appearance to February study, suspect recurrent pulmonary edema. Superimposed consolidation most notable in the left upper lobe. This may reflect pneumonia. 2. No pulmonary embolus. KUB X-Ray 11/13/18 00:00 IMPRESSION: Esophagogastric tube with tip and side port below the diaphragm, likely within a gastric pouch status post Shanthi-en-Y bypass given the configuration of surgical findings. Distended loops of bowel in the mid abdomen are concerning for bowel obstruction. There is no obvious free air in the abdomen on limited supine radiograph. Head CT 11/16/18 21:25 IMPRESSION: No acute intracranial hemorrhage. Chest X-Ray 11/20/18 06:00 IMPRESSION: Asymmetric edema or pneumonia. No significant change. Qualifiers - * PATIENT BEING DISCHARGED WITH ANY OF THE FOLLOWING DIAGNOSIS: No
[2018-11-20 21:17] LABS: HEMATOCRIT 26.6 % (36.0-47.0); MEAN CORPUSCULAR HEMOGLOBIN 32.5 pg (27.0-33.4); MEAN CORPUSCULAR HGB CONC 33.8 g/dL (32.0-36.0); MEAN CORPUSCULAR VOLUME 96 fl (80-97); PLATELET COUNT 158 10^3/uL (150-450); RED BLOOD COUNT 2.77 10^6/uL (3.72-5.28); RED CELL DISTRIBUTION WIDTH 16.7 % (11.5-14.0); WHITE BLOOD COUNT 8.2 10^3/uL (4.0-10.5)
[2018-11-20 21:28] LABS: ABSOLUTE LYMPHOCYTES# (MANUAL) 1.1 10^3/uL (0.5-4.7); ABSOLUTE MONOCYTES # (MANUAL) 0.5 10^3/uL (0.1-1.4); ABSOLUTE NEUTROPHILS# (MANUAL) 6.5 10^3/uL (1.7-8.2); BASOPHILS % (MANUAL) 0 % (0-2); EOSINOPHILS % (MANUAL) 1 % (0-6); LYMPHOCYTES % (MANUAL) 14 % (13-45); MONOCYTES % (MANUAL) 6 % (3-13); SEGMENTED NEUTROPHILS % (MAN) 79 % (42-78); TOTAL CELLS COUNTED 100; TOXIC GRANULATION SLIGHT
[2018-11-20 21:29] LABS: ANISOCYTOSIS 1+; PLATELET COMMENT ADEQUATE
[2018-11-21] MEDS: AZTREONAM 1 GM in DEXTROSE 5%-WATER 50 ML IV SCH ×2 (01:33→09:09)
[2018-11-21] MEDS: MIDAZOLAM HCL 50 MG/100 ML RTUINJ IV PRN ×2 (01:34→06:22)
[2018-11-21] MEDS: IPRATROPIUM/ALBUTEROL 0.5-2.5 MG/3 ML AMPUL NEB SCH ×2 (02:32→08:32)
[2018-11-21] MEDS: MORPHINE SULFATE 10 MG/ML INJ IV PRN (03:39)
[2018-11-21 04:55] LABS: ARTERIAL BLOOD BASE EXCESS 1.6 mmol/L; ARTERIAL BLOOD H2CO3 0.91 mmol/L (1.05-1.35); ARTERIAL BLOOD HCO3 24.2 mmol/L (20-24); ARTERIAL BLOOD O2 SATURATION 98.7 % (94-98); ARTERIAL BLOOD PCO2 30.2 mmHg (35-45); ARTERIAL BLOOD PH 7.52 (7.35-7.45); ARTERIAL BLOOD PO2 117.2 mmHg (80-100); ARTERIAL BLOOD TOTAL CO2 25.1 mmol/L (21-25)
[2018-11-21 04:57] LABS: ARTERIAL BLOOD FIO2 30%
[2018-11-21 04:59] LABS: HEMOGLOBIN 9.1 g/dL (12.0-15.5); MEAN CORPUSCULAR HEMOGLOBIN 32.3 pg (27.0-33.4); MEAN CORPUSCULAR HGB CONC 33.6 g/dL (32.0-36.0); MEAN CORPUSCULAR VOLUME 96 fl (80-97); PLATELET COUNT 174 10^3/uL (150-450); RED BLOOD COUNT 2.81 10^6/uL (3.72-5.28); RED CELL DISTRIBUTION WIDTH 16.6 % (11.5-14.0); WHITE BLOOD COUNT 8.9 10^3/uL (4.0-10.5)
[2018-11-21 05:14] LABS: BLOOD UREA NITROGEN 8 mg/dL (7-20); CALCIUM 7.6 mg/dL (8.4-10.2); GLUCOSE 100 mg/dL (75-110); POTASSIUM 3.1 mmol/L (3.6-5.0)
[2018-11-21 05:15] LABS: ABSOLUTE LYMPHOCYTES# (MANUAL) 0.9 10^3/uL (0.5-4.7); ABSOLUTE MONOCYTES # (MANUAL) 0.2 10^3/uL (0.1-1.4); ABSOLUTE NEUTROPHILS# (MANUAL) 7.8 10^3/uL (1.7-8.2); ANISOCYTOSIS 1+; BASOPHILS % (MANUAL) 0 % (0-2); EOSINOPHILS % (MANUAL) 0 % (0-6); LYMPHOCYTES % (MANUAL) 6 % (13-45); MONOCYTES % (MANUAL) 2 % (3-13); POIKILOCYTOSIS 1+; SEGMENTED NEUTROPHILS % (MAN) 88 % (42-78); TOTAL CELLS COUNTED 100; TOXIC GRANULATION SLIGHT
[2018-11-21 05:16] LABS: OVALOCYTES SLIGHT; PLATELET COMMENT ADEQUATE; SCHISTOCYTES 1+
[2018-11-21 05:20] LABS: CARBON DIOXIDE 24 mmol/L (22-30); CHLORIDE 109 mmol/L (98-107); SODIUM 137.9 mmol/L (137-145)
[2018-11-21 05:23] LABS: ANION GAP 5 (5-19)
[2018-11-21] MEDS: LACTOBACILLUS ACIDOPHILUS 250 MG TAB NG SCH (05:24)
[2018-11-21] MEDS: LEVOTHYROXINE SODIUM 0.088 MG TABLET NG SCH (05:24)
[2018-11-21] MEDS: FUROSEMIDE INJ/PF 40 MG/4 ML SDV IV SCH (05:26)
[2018-11-21] MEDS: HEPARIN SOD (PORCINE) 5,000 UNIT/ML 1 ML SYRINGE SUBCUT SCH (05:26)
[2018-11-21] MEDS: VANCOMYCIN HCL 1,000 MG in DEXTROSE 5%-WATER 250 ML IV SCH (05:26)
[2018-11-21] MEDS: HYDROCORTISONE SOD SUCCINATE INJ/PF 100 MG/2 ML SDV IV SCH (05:26)
[2018-11-21] MEDS: POTASSIUM CHLORIDE 20 MEQ/50 ML RTU IV SCH ×2 (06:22→08:15)
--- NOTE | 2018-11-21 07:06 | RADIOLOGY REPORT (SQ) ---
EXAM DESCRIPTION: X-ray single view chest. CLINICAL HISTORY: 48 years Female, resp failure COMPARISON: 11/20/2018 and 11/19/2018 TECHNIQUE: Single portable view of the chest performed on 11/21/2018 at 6:05 AM FINDINGS: The lungs are well expanded. There is slightly improving aeration of the right lung when compared to the prior studies. There is persistent diffuse interstitial and alveolar airspace disease bilaterally greater on the left. Bilateral effusions are suspected. There is no evidence of a pneumothorax. The cardiac silhouette is normal in size and configuration. The mediastinal contours are normal. No acute osseous abnormality is identified. No focal soft tissue abnormalities are seen. Lines and tubes: The endotracheal tube, feeding tube and right subclavian central venous catheter are grossly stable. IMPRESSION: Slightly improving aeration of the right lung when compared to the prior studies. Otherwise, no significant interval change.
[2018-11-21] MEDS: CLINDAMYCIN 600 MG/D5W RTU 600 MG/50 ML RTUPB IV SCH (08:15)
[2018-11-21] MEDS: TOPIRAMATE 25 MG TABLET NG SCH (08:15)
[2018-11-21] MEDS: ACETYLCYSTEINE 20% SOLN 800 MG/4 ML VIAL.NEB NEB SCH (08:32)
[2018-11-21] MEDS: FAMOTIDINE INJ/PF 20 MG/2 ML SDV IV SCH (09:09)
[2018-11-21] MEDS: COLLAGENASE CLOSTRIDIUM HIST. OINT 30 GM TP SCH (09:10)
[2018-11-21] MEDS: PROPOFOL 1,000 MG/100 ML INFUS..BTL IV PRN (09:20)
[2018-11-21 10:34] VITALS: BP 104/54
== END 2018-11-21 11:03 | DRG 871 ==
LOC: ER 07:59 → EH 14:23 → ICU 16:06
PROVIDERS: ADMIT Internal Medicine; ATTEND Internal Medicine
PROC: 02HV33Z Insertion of Infusion Device into Superior Vena Cava, Percutaneous Approach (ICD-10-PCS; principal; 2018-11-08)
PROC: 5A09457 Assistance with Respiratory Ventilation, 24-96 Consecutive Hours, Continuous Positive Airway Pressure (ICD-10-PCS; 2018-11-09)
PROC: 0BH17EZ Insertion of Endotracheal Airway into Trachea, Via Natural or Artificial Opening (ICD-10-PCS; 2018-11-10)
PROC: 5A1945Z Respiratory Ventilation, 24-96 Consecutive Hours (ICD-10-PCS; 2018-11-10)
PROC: 30233N1 Transfusion of Nonautologous Red Blood Cells into Peripheral Vein, Percutaneous Approach (ICD-10-PCS; 2018-11-11)
PROC: 30233N1 Transfusion of Nonautologous Red Blood Cells into Peripheral Vein, Percutaneous Approach (ICD-10-PCS; 2018-11-13)
PROC: 5A09457 Assistance with Respiratory Ventilation, 24-96 Consecutive Hours, Continuous Positive Airway Pressure (ICD-10-PCS; 2018-11-14)
PROC: 3E0336Z Introduction of Nutritional Substance into Peripheral Vein, Percutaneous Approach (ICD-10-PCS; 2018-11-17)
PROC: 0DH67UZ Insertion of Feeding Device into Stomach, Via Natural or Artificial Opening (ICD-10-PCS; 2018-11-17)
PROC: 0BH17EZ Insertion of Endotracheal Airway into Trachea, Via Natural or Artificial Opening (ICD-10-PCS; 2018-11-17)
PROC: 5A1945Z Respiratory Ventilation, 24-96 Consecutive Hours (ICD-10-PCS; 2018-11-17)
DX: A41.50 Gram-negative sepsis, unspecified (principal); J18.9 Pneumonia, unspecified organism; R65.21 Severe sepsis with septic shock; J96.01 Acute respiratory failure with hypoxia; F11.20 Opioid dependence, uncomplicated; N39.0 Urinary tract infection, site not specified; E46 Unspecified protein-calorie malnutrition; I69.354 Hemiplegia and hemiparesis following cerebral infarction affecting left non-dominant side; E87.1 Hypo-osmolality and hyponatremia; E87.3 Alkalosis; E27.1 Primary adrenocortical insufficiency; L89.152 Pressure ulcer of sacral region, stage 2; L89.622 Pressure ulcer of left heel, stage 2; D64.9 Anemia, unspecified; K52.9 Noninfective gastroenteritis and colitis, unspecified; E87.6 Hypokalemia; I51.7 Cardiomegaly; E78.5 Hyperlipidemia, unspecified; I10 Essential (primary) hypertension; E11.9 Type 2 diabetes mellitus without complications; K21.9 Gastro-esophageal reflux disease without esophagitis; F31.9 Bipolar disorder, unspecified; Z98.84 Bariatric surgery status; F17.210 Nicotine dependence, cigarettes, uncomplicated; B96.20 Unspecified Escherichia coli [E. coli] as the cause of diseases classified elsewhere; B95.62 Methicillin resistant Staphylococcus aureus infection as the cause of diseases classified elsewhere; B95.2 Enterococcus as the cause of diseases classified elsewhere; B96.4 Proteus (mirabilis) (morganii) as the cause of diseases classified elsewhere; E03.9 Hypothyroidism, unspecified; Z78.1 Physical restraint status; G89.4 Chronic pain syndrome; Z88.0 Allergy status to penicillin; Z88.2 Allergy status to sulfonamides; Z88.8 Allergy status to other drugs, medicaments and biological substances; Z90.49 Acquired absence of other specified parts of digestive tract; Z90.710 Acquired absence of both cervix and uterus; M19.90 Unspecified osteoarthritis, unspecified site; Z85.43 Personal history of malignant neoplasm of ovary; Z79.899 Other long term (current) drug therapy; Z79.82 Long term (current) use of aspirin; Z96.652 Presence of left artificial knee joint; Z68.24 Body mass index [BMI] 24.0-24.9, adult; R16.0 Hepatomegaly, not elsewhere classified
CPT/HCPCS: 31500; 36415; 36430; 51702; 70450; 71045; 71275; 74018; 74177; 80048; 80053; 80061; 80076; 80202; 80307; 81001; 82040; 82140; 82150; 82272; 82330; 82533; 82550; 82553; 82803; 82962; 83036; 83605; 83690; 83735; 83880; 83930; 83935; 84100; 84132; 84133; 84300; 84439; 84443; 84478; 84484; 85025; 85610; 85730; 86850; 86900; 86901; 86920; 87040; 87070; 87077; 87086; 87088; 87186; 87205; 87493; 87804; 93005; 93010; 93306; 94002; 94003; 94640; 94660; 94667; 94668; 96361; 96365; 96366; 96368; 99291; C1751; J0330; J0610; J1580; J1644; J1720; J1940; J1956; J2060; J2250; J2270; J2370; J2405; J2704; J3010; J3370; J3475; J3480; J3490; J7030; J7060; J7620; P9016; P9047; S0028; S0164

== ENCOUNTER 2019-01-18 14:41 | Inpatient (IN) | payer MEDICARE, MEDICAID ==
[2019-01-18 15:30] LABS: ABSOLUTE BASOPHILS # (AUTO) 0.1 10^3/uL (0.0-0.2); ABSOLUTE EOSINOPHILS # (AUTO) 0.1 10^3/uL (0.0-0.6); ABSOLUTE LYMPHOCYTES (AUTO) 4.7 10^3/uL (0.5-4.7); ABSOLUTE MONOCYTES (AUTO) 0.8 10^3/uL (0.1-1.4); ABSOLUTE NEUT (AUTO) 7.7 10^3/uL (1.7-8.2); BASOPHILS % (AUTO) 0.7 % (0-2); EOSINOPHILS % (AUTO) 0.8 % (0-6); HEMATOCRIT 24.1 % (36.0-47.0); LYMPHOCYTES % (AUTO) 34.9 % (13-45); MEAN CORPUSCULAR HEMOGLOBIN 27.5 pg (27.0-33.4); MEAN CORPUSCULAR VOLUME 89 fl (80-97); MONOCYTES % (AUTO) 6.1 % (3-13); PLATELET COUNT 293 10^3/uL (150-450); RED BLOOD COUNT 2.72 10^6/uL (3.72-5.28); RED CELL DISTRIBUTION WIDTH 16.4 % (11.5-14.0); SEGMENTED NEUTROPHILS % (AUTO) 57.5 % (42-78); TOTAL CELLS COUNTED % (AUTO) 100 %; WHITE BLOOD COUNT 13.4 10^3/uL (4.0-10.5)
[2019-01-18 15:32] LABS: HEMOGLOBIN 7.5 g/dL (12.0-15.5)
[2019-01-18] MEDS ORDERED: NORMAL SALINE 250 ML IV PRN (15:36)
[2019-01-18] MEDS ORDERED: FENTANYL CITRATE INJ/PF 100 MCG/2 ML AMPUL IV ONE (15:38)
[2019-01-18] MEDS ORDERED: ONDANSETRON HCL INJ/PF 4 MG/2 ML SDV IV ONE (15:38)
[2019-01-18 15:39] LABS: ALANINE AMINOTRANSFERASE 23 U/L (9-52); ALBUMIN 2.7 g/dL (3.5-5.0); ALKALINE PHOSPHATASE 91 U/L (38-126); ANION GAP 7 (5-19); ASPARTATE AMINO TRANSFERASE 18 U/L (14-36); BILIRUBIN,DIRECT 0.2 mg/dL (0.0-0.4); BILIRUBIN,TOTAL 0.2 mg/dL (0.2-1.3); BLOOD UREA NITROGEN 17 mg/dL (7-20); CALCIUM 8.1 mg/dL (8.4-10.2); CARBON DIOXIDE 21 mmol/L (22-30); CHLORIDE 111 mmol/L (98-107); GLUCOSE 94 mg/dL (75-110); POTASSIUM 3.5 mmol/L (3.6-5.0); SODIUM 138.9 mmol/L (137-145); TOTAL PROTEIN 4.8 g/dL (6.3-8.2)
--- NOTE | 2019-01-18 15:48 | ER Document Report ---
ED Extremity Problem, Lower - General Chief Complaint: Laceration Stated Complaint: LACERATION Time Seen by Provider: 01/18/19 15:25 Mode of Arrival: Wheelchair Information source: Patient, Relative TRAVEL OUTSIDE OF THE [place] IN LAST 30 DAYS: No - HPI Patient complains to provider of: Swelling, Other - Left leg laceration and bleeding. Location: Leg - Left lower calf area. Occurred: This afternoon Where: Home Onset/Duration: Sudden Quality of pain: Sharp Severity: Mild Pain Level: 2 Context: Laceration Recent injury: No Exacerbated by: Nothing Relieved by: Nothing - Related Data Allergies/Adverse Reactions: cilastatin [From Primaxin IV] Allergy (Intermediate, Verified 09/08/18 10:48) Facial swelling imipenem [From Primaxin IV] Allergy (Intermediate, Verified 09/08/18 10:48) Facial swelling Penicillins Allergy (Mild, Verified 09/08/18 10:48) Generalized rash Sulfa (Sulfonamide Antibiotics) Allergy (Mild, Verified 09/08/18 10:48) Generalized rash Past Medical History - Social History Smoking Status: Unknown if Ever Smoked Family History: DM, Hypertension - Past Medical History Cardiac Medical History: Reports: Hx Hypercholesterolemia, Hx Hypertension Denies: Hx Atrial Fibrillation, Hx Congestive Heart Failure, Hx Coronary Artery Disease, Hx Heart Attack, Hx Peripheral Vascular Disease, Hx Pulmonary Embolism, Hx Heart Murmur Pulmonary Medical History: Reports: Hx Pneumonia Denies: Hx Asthma, Hx Bronchitis, Hx COPD, Hx Respiratory Failure, Hx Sleep Apnea, Hx Tuberculosis Neurological Medical History: Reports: Hx Cerebrovascular Accident. Denies: Hx Seizures Endocrine Medical History: Reports: Hx Diabetes Mellitus Type 2, Hx Hypothyroidism. Denies: Hx Diabetes Mellitus Type 1, Hx Graves' Disease, Hx Hyperthyroidism Renal/ Medical History: Denies: Hx Ovarian Cysts, Hx Peritoneal Dialysis, Hx Pelvic Inflammatory Disease Malignancy Medical History: Reports: Hx Ovarian Cancer. Denies: Hx Breast Cancer, Hx Cervical Cancer, Hx Leukemia, Hx Lung Cancer GI Medical History: Reports: Hx Gastroesophageal Reflux Disease, Hx Ulcer, Hx Endoscopy. Denies: Hx Cirrhosis, Hx Crohn's Disease, Hx Hepatitis, Hx Hiatal Hernia, Hx Irritable Bowel, Hx Liver Failure, Hx Pancreatitis Musculoskeletal Medical History: Reports Hx Arthritis, Denies Hx Fibromyalgia, Denies Hx Multiple Sclerosis, Denies Hx Muscular Dystrophy Skin Medical History: Denies Hx Eczema, Denies Hx Psoriasis Psychiatric Medical History: Reports: Hx Anxiety, Hx Bipolar Disorder, Hx Depres mario, Hx Schizophrenia Denies: Hx Dementia, Hx Post Traumatic Stress Disorder Traumatic Medical History: Reports: Hx Fractures - 3 fx, left hip fx 10/2017. Denies: Hx Pneumothorax Infectious Medical History: Denies: Hx Hepatitis, Hx HIV Past Surgical History: Reports: Hx Abdominal Surgery - gastric bypass, reversal, Hx Cholecystectomy, Hx Gastric Bypass Surgery, Hx Hysterectomy, Hx Orthopedic Surgery - LLE, left jaw, total left hip arthroplasty on 09/08/2018.. Denies: Hx Appendectomy, Hx Bowel Surgery, Hx Section, Hx Colostomy, Hx Coronary Artery Bypass Graft, Hx Herniorrhaphy, Hx Mastectomy, Hx Pacemaker, Hx Tonsillectomy, Hx Tubal Ligation - Immunizations Immunizations up to date: Yes Hx Diphtheria, Pertussis, Tetanus Vaccination: Yes Review of Systems - Review of Systems Constitutional: No symptoms reported EENT: No symptoms reported Cardiovascular: No symptoms reported Respiratory: No symptoms reported Gastrointestinal: No symptoms reported Genitourinary: No symptoms reported Female Genitourinary: No symptoms reported Musculoskeletal: Leg swelling, Other - Left leg laceration. Skin: No symptoms reported Hematologic/Lymphatic: No symptoms reported Neurological/Psychological: No symptoms reported -: Yes All other systems reviewed and negative Physical Exam - Vital signs Vitals: Pulse Resp BP Pulse Ox 129 H 17 103/78 98 01/18/19 14:54 01/18/19 14:54 01/18/19 14:54 01/18/19 14:54 Interpretation: Normal - General General appearance: Appears well, Alert - HEENT Head: Normocephalic, Atraumatic Eyes: Normal Pupils: PERRL - Respiratory Respiratory status: No respiratory distress Chest status: Nontender Breath sounds: Normal Chest palpation: Normal - Cardiovascular Rhythm: Regular Heart sounds: Normal auscultation Murmur: No - Abdominal Inspection: Normal Distension: No distension Bowel sounds: Normal Tenderness: Nontender Organomegaly: No organomegaly - Back Back: Normal, Nontender - Extremities General upper extremity: Normal inspection, Nontender, Normal color, Normal ROM, Normal temperature General lower extremity: Edema, Normal color, Normal ROM, Normal temperature, Other - 15 cm left lower leg laceration with active profuse bleeding. Bilateral pitting leg edema. - Neurological Neuro grossly intact: Yes Cognition: Normal Orientation: AAOx4 [place] Coma Scale Eye Opening: Spontaneous Loan Coma Scale Verbal: Oriented Loan Coma Scale Motor: Obeys Commands Loan Coma Scale Total: 15 Speech: Normal Motor strength normal: LUE, RUE, LLE, RLE Sensory: Normal - Psychological Associated symptoms: Normal affect, Normal mood - Skin Skin Temperature: Warm Skin Moisture: Dry Skin Color: Normal Course - Vital Signs Vital signs: Temp Pulse Resp BP Pulse Ox 98.5 F 90 16 100/57 L 100 01/18/19 19:15 01/18/19 19:15 01/18/19 19:15 01/18/19 19:15 01/18/19 19:15 - Laboratory Result Diagrams: 01/18/19 15:02 01/18/19 15:02 Laboratory results interpreted by me: 01/18/19 01/18/19 01/18/19 15:02 15:02 15:02 WBC 13.4 H RBC 2.72 L Hgb 7.5 L Hct 24.1 L MCHC 31.0 L RDW 16.4 H Potassium 3.5 L Chloride 111 H Carbon Dioxide 21 L Creatinine 0.49 L Calcium 8.1 L Total Protein 4.8 L Albumin 2.7 L Crossmatch See Detail - Consults Dr Knutson Time consulted: 15:40 Reason for consultation: 01/18/19 15:54 To come to the ER and evaluate Ms. Iris Sheikh's left leg for surgery to stop the bleeding and repair the laceration. Consulted provider: will come to ER - Transfer of Care Care transferred to following provider: Dr Preston Blanco will admit the patient after surgery for observation. Notes: 01/18/19 16:43 Dr Knutson evaluated patient and he will take patient to the OR for surgery imme diately. Discharge - Discharge Clinical Impression: Laceration, Leg edema, left Anemia Qualifiers: Anemia type: unspecified type Qualified Code(s): D64.9 - Anemia, unspecified Condition: Fair Disposition: ADMITTED OBSERVATION Admitting Provider: Hospitalist Unit Admitted: Medical Floor
[2019-01-18 15:51] LABS: INTERNATIONAL RATION (INR) 1.03
[2019-01-18 15:52] LABS: PARTIAL THROMBOPLASTIN TIME 25.1 SEC (23.5-35.8)
[2019-01-18] MEDS ORDERED: LIDOCAINE 1% INJ-PF (10 MG/ML) 30 ML SDV ONE (16:47)
[2019-01-18] MEDS ORDERED: FENTANYL CITRATE INJ/PF 100 MCG/2 ML AMPUL ONE ×2 (16:49→18:49)
[2019-01-18] MEDS ORDERED: LIDOCAINE 2% INJ-PF (100 MG/5 ML) SYRINGE ONE (16:49)
[2019-01-18] MEDS ORDERED: PROPOFOL INJ 200 MG/20 ML VIAL IV ONE (16:49)
[2019-01-18] MEDS ORDERED: MIDAZOLAM 2 MG/2 ML INJ ONE (16:49)
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
[2019-01-18] MEDS ORDERED: TETANUS/DIPHTHERIA TOX-ADULT 0.5 ML SYR (>=7YO) IM ONE ×2 (17:00→21:05)
[2019-01-18] MEDS ORDERED: CITRIC ACID/SODIUM CITRATE ORAL SOLN 15 ML UDCUP ONE (17:18)
[2019-01-18] MEDS ORDERED: METRONIDAZOLE 500 MG/NS RTU 500 MG/100 ML RTUPB IV ONE (17:18)
[2019-01-18] MEDS ORDERED: LEVOFLOXACIN 750 MG/D5W RTU 750 MG/150 ML RTUPB IV ONE (17:18)
[2019-01-18] MEDS ORDERED: ONDANSETRON 4 MG TAB.RAPDIS PO PRN (17:22)
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
[2019-01-18] MEDS ORDERED: LEVOFLOXACIN 500 MG/D5W RTU 500 MG/100 ML RTUPB IV SCH (18:00)
[2019-01-18] MEDS ORDERED: SILVER SULFADIAZINE 1% CREAM 25 GM ONE (18:07)
[2019-01-18] MEDS ORDERED: OXYCODONE-ACETAMINOPHEN 5-325 MG TABLET PO PRN ×2 (18:21)
[2019-01-18] MEDS ORDERED: FENTANYL CITRATE INJ/PF 100 MCG/2 ML AMPUL IV PRN ×3 (18:21)
[2019-01-18] MEDS ORDERED: DIPHENHYDRAMINE HCL 50 MG/ML VIAL IV PRN (18:21)
[2019-01-18] MEDS ORDERED: PROMETHAZINE HCL INJ 25 MG/1 ML VIAL IV PRN ×2 (18:21)
[2019-01-18] MEDS ORDERED: MEPERIDINE HCL/PF INJ 25 MG/1 ML DISP.SYRIN IV PRN (18:21)
[2019-01-18] MEDS ORDERED: ONDANSETRON HCL INJ/PF 4 MG/2 ML SDV IV PRN (18:21)
--- NOTE | 2019-01-18 18:48 | RADIOLOGY REPORT (SQ) ---
EXAM DESCRIPTION: TIBIA FIBULA LEFT COMPLETED DATE/TIME: 01/18/2019 5:10 pm REASON FOR STUDY: SWELLING LACERATION COMPARISON: 10/13/2017 NUMBER OF VIEWS: Two views. TECHNIQUE: Two radiographic images acquired of the left tibia and fibula to include the knee and ank le in at least one projection. LIMITATIONS: None. FINDINGS: MINERALIZATION: Osteopenia. BONES: Healed fracture tibia status post aleksandra fixation. Chronic defect in the midshaft fibula. No ac tive periosteal reaction. SOFT TISSUES: Skin defect lateral to fibular defect. No foreign body. OTHER: No other significant finding. IMPRESSION: No evidence of osteomyelitis. TECHNICAL DOCUMENTATION: JOB ID: [id number] [employer]- All Rights Reserved Reading location - IP/workstation name: [email or web address]
--- NOTE | 2019-01-18 18:50 | RADIOLOGY REPORT (SQ) ---
EXAM DESCRIPTION: TIBIA FIBULA RIGHT COMPLETED DATE/TIME: 01/18/2019 5:10 pm REASON FOR STUDY: SWELLING LACERATION COMPARISON: None. NUMBER OF VIEWS: Two views. TECHNIQUE: Two radiographic images acquired of the right tibia and fibula to include the knee and an kle in at least one projection. LIMITATIONS: None. FINDINGS: MINERALIZATION: Normal. BONES: No acute fracture or dislocation. No worrisome bone lesions. Enthesophyte for Achilles attac hment. SOFT TISSUES: No obvious swelling or foreign body. OTHER: No other significant finding. IMPRESSION: NEGATIVE STUDY OF THE RIGHT TIBIA AND FIBULA. NO RADIOGRAPHIC EVIDENCE OF ACUTE INJURY. TECHNICAL DOCUMENTATION: JOB ID: [id number] [employer]- All Rights Reserved Reading location - IP/workstation name: [email or web address]
--- NOTE | 2019-01-18 18:55 | Operative Report ---
Nonrecallable Operative Report DATE OF SURGERY: 01/18/19 PREOPERATIVE DIAGNOSIS: left calf skin laceration. acute bleeding. acute anemia POSTOPERATIVE DIAGNOSIS: same. necrosis posterior left calf skin. hematoma subcutaneous OPERATION: exploratrion left calf wound. evacuation of left leg subcutaneous hematoma. debridment left leg posterior skin SURGEON: MOHINI BAEZ ANESTHESIA: LMAC TISSUE REMOVED OR ALTERED: subcutaneous hematoma. skin posterior calf COMPLICATIONS: none ESTIMATED BLOOD LOSS: n/a INTRAOPERATIVE FINDINGS: 1) large area of skin necrosis of the posterior calf, approximately 40% surface of the calf. 2) large posterior calf subcutaneous hematoma PROCEDURE: see dictation
[2019-01-18] MEDS ORDERED: GLUCAGON,HUMAN RECOMB 1 MG INJ SUBCUT PRN (20:52)
[2019-01-18] MEDS ORDERED: DEXTROSE 50%-WATER 25 GM/50 ML DISP.SYRIN IV PRN ×2 (20:52)
[2019-01-18] MEDS ORDERED: DEXTROSE 40% GEL 15 GM TUBE PO PRN ×2 (20:52)
[2019-01-18] MEDS: OXYCODONE HCL IR 5 MG TABLET PO PRN (21:16)
[2019-01-18] MEDS: METRONIDAZOLE 500 MG/NS RTU 500 MG/100 ML RTUPB IV SCH (21:17)
[2019-01-18 21:56] LABS: HEMATOCRIT 29.8 % (36.0-47.0); MEAN CORPUSCULAR HEMOGLOBIN 29.6 pg (27.0-33.4); MEAN CORPUSCULAR HGB CONC 33.7 g/dL (32.0-36.0); MEAN CORPUSCULAR VOLUME 88 fl (80-97); PLATELET COUNT 186 10^3/uL (150-450); RED BLOOD COUNT 3.39 10^6/uL (3.72-5.28); RED CELL DISTRIBUTION WIDTH 17.4 % (11.5-14.0); WHITE BLOOD COUNT 10.4 10^3/uL (4.0-10.5)
[2019-01-19] MEDS: METRONIDAZOLE 500 MG/NS RTU 500 MG/100 ML RTUPB IV SCH ×3 (02:24→17:12)
[2019-01-19] MEDS: OXYCODONE HCL IR 5 MG TABLET PO PRN ×5 (02:25→22:45)
[2019-01-19] MEDS: LEVOFLOXACIN 500 MG/D5W RTU 500 MG/100 ML RTUPB IV SCH ×2 (02:32→21:33)
[2019-01-19] MEDS ORDERED: DEXTROSE 40% GEL 15 GM TUBE PO PRN ×2 (07:23)
[2019-01-19] MEDS ORDERED: GLUCAGON,HUMAN RECOMB 1 MG INJ SUBCUT PRN (07:23)
[2019-01-19] MEDS ORDERED: DEXTROSE 50%-WATER 25 GM/50 ML DISP.SYRIN IV PRN ×2 (07:23)
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
[2019-01-19] MEDS: CARVEDILOL 3.125 MG TABLET PO SCH ×2 (09:04→21:33)
[2019-01-19] MEDS: LEVOTHYROXINE SODIUM 0.088 MG TABLET PO SCH (09:04)
[2019-01-19 09:34] LABS: ABSOLUTE LYMPHOCYTES (AUTO) 1.7 10^3/uL (0.5-4.7); ABSOLUTE MONOCYTES (AUTO) 0.6 10^3/uL (0.1-1.4); ABSOLUTE NEUT (AUTO) 7.1 10^3/uL (1.7-8.2); BASOPHILS % (AUTO) 0.2 % (0-2); EOSINOPHILS % (AUTO) 0.5 % (0-6); HEMATOCRIT 27.9 % (36.0-47.0); HEMOGLOBIN 9.3 g/dL (12.0-15.5); LYMPHOCYTES % (AUTO) 18.2 % (13-45); MEAN CORPUSCULAR HEMOGLOBIN 29.3 pg (27.0-33.4); MEAN CORPUSCULAR HGB CONC 33.6 g/dL (32.0-36.0); MEAN CORPUSCULAR VOLUME 87 fl (80-97); MONOCYTES % (AUTO) 6.8 % (3-13); PLATELET COUNT 185 10^3/uL (150-450); RED BLOOD COUNT 3.19 10^6/uL (3.72-5.28); RED CELL DISTRIBUTION WIDTH 17.5 % (11.5-14.0); SEGMENTED NEUTROPHILS % (AUTO) 74.3 % (42-78); TOTAL CELLS COUNTED % (AUTO) 100 %; WHITE BLOOD COUNT 9.5 10^3/uL (4.0-10.5)
[2019-01-19 10:00] LABS: ANION GAP 5 (5-19); BLOOD UREA NITROGEN 12 mg/dL (7-20); CALCIUM 7.9 mg/dL (8.4-10.2); CARBON DIOXIDE 23 mmol/L (22-30); CHLORIDE 111 mmol/L (98-107); GLUCOSE 75 mg/dL (75-110); POTASSIUM 3.8 mmol/L (3.6-5.0); SODIUM 138.6 mmol/L (137-145)
[2019-01-19] MEDS: FLUDROCORTISONE ACETATE 0.1 MG TABLET PO SCH (10:06)
[2019-01-19] MEDS ORDERED: LEVOTHYROXINE SODIUM 0.088 MG TABLET PO ONE (11:00)
[2019-01-19] MEDS: COLLAGENASE CLOSTRIDIUM HIST. OINT 30 GM TOP SCH (15:20)
--- NOTE | 2019-01-19 18:24 | PDOC PROGRESS REPORT ---
Subjective Progress Note for:: 01/19/19 Subjective:: Patient story but that has not been witnessed. Having pain left lower extremity Reason For Visit: ACUTE BLOOD LOSS ANEMIA FROM LACERATION Physical Exam Vital Signs: Temp Pulse Resp BP Pulse Ox 99.7 F 101 H 18 116/77 97 01/19/19 16:00 01/19/19 16:00 01/19/19 16:00 01/19/19 16:00 01/19/19 16:00 Intake & Output 01/18/19 01/19/19 01/20/19 06:59 06:59 06:59 Intake Total 3672 100 Output Total 3150 200 Balance 522 -100 Weight 56.1 kg 56.1 kg General appearance: PRESENT: no acute distress Musculoskeletal exam: PRESENT: other - Dressing removed; has a fruity smell and drainage the Chris wrap is keen. Once dressing removed, the magnitude of the left lower extremity wound is appreciated. It is a large partially degloving injury to the left leg extending from above the antecubital fossa laterally down to the calf primarily. There is some intact, pronator bruised skin. The open wound has a mixture of granulation tissue and cellular slough, but not any active pus. Results Laboratory Results: 01/19/19 08:27 01/19/19 08:27 01/18/19 01/18/19 01/19/19 15:02 21:43 08:27 WBC 10.4 9.5 RBC 3.39 L 3.19 L Hgb 10.0 L D 9.3 L Hct 29.8 L 27.9 L MCV 88 87 MCH 29.6 29.3 MCHC 33.7 33.6 RDW 17.4 H 17.5 H Plt Count 186 185 Seg Neutrophils % 74.3 Lymphocytes % 18.2 Monocytes % 6.8 Eosinophils % 0.5 Basophils % 0.2 Absolute Neutrophils 7.1 Absolute Lymphocytes 1.7 Absolute Monocytes 0.6 Absolute Eosinophils 0.0 Absolute Basophils 0.0 Sodium Potassium Chloride Carbon Dioxide Anion Gap BUN Creatinine Est GFR ( Amer) Est GFR (Non-Af Amer) Glucose Calcium Blood Type O POSITIVE Antibody Screen NEGATIVE 01/19/19 08:27 WBC RBC Hgb Hct MCV MCH MCHC RDW Plt Count Seg Neutrophils % Lymphocytes % Monocytes % Eosinophils % Basophils % Absolute Neutrophils Absolute Lymphocytes Absolute Monocytes Absolute Eosinophils Absolute Basophils Sodium 138.6 Potassium 3.8 Chloride 111 H Carbon Dioxide 23 Anion Gap 5 BUN 12 Creatinine 0.40 L Est GFR ( Amer) > 60 Est GFR (Non-Af Amer) > 60 Glucose 75 Calcium 7.9 L Blood Type Antibody Screen Impressions: Tibia/Fibula X-Ray 01/18/19 00:00 IMPRESSION: NEGATIVE STUDY OF THE RIGHT TIBIA AND FIBULA. NO RADIOGRAPHIC EVIDENCE OF ACUTE INJURY. Assessment & Plan - Diagnosis (1) Laceration Is this a current diagnosis for this admission?: Yes Plan: Impression: 1 day status post debridement of left lower extremity traumatic injury, with reasonable appearance of the wound bed; drainage and smell suspicious for Pseudomonas infection. Recommendations 1. We will start dressing changes with chlorhexidine scrub Xeroform Kerlix. 2. We will give patient a surgical boot, and get her physical therapy 3. I believe this wound can closed using a combination of local wound care, possible split-thickness skin grafting; however this patient has multiple chronic comorbidities, compounded by her social situation which may make the left leg salvage plan challenging.
[2019-01-19] MEDS: AMITRIPTYLINE HCL 50 MG TABLET PO SCH (21:30)
[2019-01-19] MEDS: POTASSIUM CHLORIDE 10 MEQ CAPSULE.ER PO SCH (21:30)
[2019-01-19] MEDS: LANSOPRAZOLE 30 MG TAB.RAP.DR PO SCH (21:31)
[2019-01-19] MEDS: MELOXICAM 7.5 MG TABLET PO SCH (21:31)
[2019-01-19] MEDS: LISINOPRIL 5 MG TABLET PO SCH (21:31)
[2019-01-19] MEDS: TOPIRAMATE 25 MG TABLET PO SCH (21:32)
[2019-01-19] MEDS: SERTRALINE HCL 50 MG TABLET PO SCH (21:32)
[2019-01-19] MEDS: BENZTROPINE MESYLATE 1 MG TABLET PO SCH (21:33)
[2019-01-19] MEDS: LURASIDONE HCL 40 MG TABLET PO SCH (21:33)
[2019-01-19] MEDS: FUROSEMIDE 40 MG TABLET PO SCH (21:33)
[2019-01-19] MEDS: GABAPENTIN 300 MG CAPSULE PO SCH (21:34)
[2019-01-19] MEDS: ALPRAZOLAM 0.5 MG TABLET PO PRN (22:44)
[2019-01-19] MEDS: ACETAMINOPHEN 325 MG TABLET PO PRN (22:45)
--- NOTE | 2019-01-19 22:45 | PDOC PROGRESS REPORT ---
Subjective Progress Note for:: 01/19/19 Subjective:: Patient was admitted for the management of laceration of the left leg Reason For Visit: ACUTE BLOOD LOSS ANEMIA FROM LACERATION Physical Exam Vital Signs: Temp Pulse Resp BP Pulse Ox 100.0 F 112 H 16 129/74 H 99 01/19/19 19:25 01/19/19 19:25 01/19/19 19:25 01/19/19 19:25 01/19/19 19:25 Intake & Output 01/18/19 01/19/19 01/20/19 06:59 06:59 06:59 Intake Total 3672 200 Output Total 3150 200 Balance 522 0 Weight 56.1 kg 56.1 kg General appearance: PRESENT: no acute distress Eye exam: PRESENT: PERRLA Respiratory exam: PRESENT: clear to auscultation rona Cardiovascular exam: PRESENT: +S1, +S2 GI/Abdominal exam: PRESENT: soft Neurological exam: PRESENT: alert Results Laboratory Results: 01/19/19 08:27 01/19/19 08:27 01/18/19 01/19/19 01/19/19 15:02 08:27 08:27 WBC 9.5 RBC 3.19 L Hgb 9.3 L Hct 27.9 L MCV 87 MCH 29.3 MCHC 33.6 RDW 17.5 H Plt Count 185 Seg Neutrophils % 74.3 Lymphocytes % 18.2 Monocytes % 6.8 Eosinophils % 0.5 Basophils % 0.2 Absolute Neutrophils 7.1 Absolute Lymphocytes 1.7 Absolute Monocytes 0.6 Absolute Eosinophils 0.0 Absolute Basophils 0.0 Sodium 138.6 Potassium 3.8 Chloride 111 H Carbon Dioxide 23 Anion Gap 5 BUN 12 Creatinine 0.40 L Est GFR ( Amer) > 60 Est GFR (Non-Af Amer) > 60 Glucose 75 Calcium 7.9 L Blood Type O POSITIVE Antibody Screen NEGATIVE Impressions: Tibia/Fibula X-Ray 01/18/19 00:00 IMPRESSION: NEGATIVE STUDY OF THE RIGHT TIBIA AND FIBULA. NO RADIOGRAPHIC EVIDE NCE OF ACUTE INJURY. Assessment & Plan - Diagnosis (1) Laceration of left leg Qualifiers: Encounter type: sequela Qualified Code(s): S81.812S - Laceration without foreign body, left lower leg, sequela Is this a current diagnosis for this admission?: Yes (2) Localized edema Is this a current diagnosis for this admission?: Yes (3) Hypoalbuminemia Is this a current diagnosis for this admission?: Yes (4) Acute posthemorrhagic anemia Is this a current diagnosis for this admission?: Yes - Plan Summary Plan Summary: continue treatment
[2019-01-20] MEDS: METRONIDAZOLE 500 MG/NS RTU 500 MG/100 ML RTUPB IV SCH ×3 (02:10→17:06)
[2019-01-20] MEDS: OXYCODONE HCL IR 5 MG TABLET PO PRN ×4 (06:11→22:51)
[2019-01-20] MEDS: GABAPENTIN 300 MG CAPSULE PO SCH ×3 (06:11→22:51)
[2019-01-20] MEDS: LEVOTHYROXINE SODIUM 0.088 MG TABLET PO SCH (06:11)
[2019-01-20] MEDS: LANSOPRAZOLE 30 MG TAB.RAP.DR PO SCH (06:11)
[2019-01-20] MEDS ORDERED: (PENDING PHARMACY ID) (Naloxegol Oxalate 25 MG) PO SCH (08:00)
--- NOTE | 2019-01-20 09:01 | PDOC PROGRESS REPORT ---
Subjective Progress Note for:: 01/20/19 Subjective:: no complaints left leg wound dressed. Reason For Visit: ACUTE BLOOD LOSS ANEMIA FROM LACERATION left leg degloving wound calf Physical Exam Vital Signs: Temp Pulse Resp BP Pulse Ox 98.9 F 80 16 108/56 L 97 01/20/19 08:00 01/20/19 08:00 01/20/19 08:00 01/20/19 08:00 01/20/19 08:00 Intake & Output 01/19/19 01/20/19 01/21/19 06:59 06:59 06:59 Intake Total 3672 1359 Output Total 3150 3050 Balance 522 -1691 Weight 56.1 kg 56.3 kg General appearance: PRESENT: no acute distress Head exam: PRESENT: normocephalic Eye exam: PRESENT: EOMI Mouth exam: PRESENT: moist Respiratory exam: PRESENT: clear to auscultation rona Cardiovascular exam: PRESENT: RRR Pulses: PRESENT: normal radial pulses, normal femoral pulses GI/Abdominal exam: PRESENT: soft Rectal exam: PRESENT: deferred Extremities exam: PRESENT: other - left leg wound dressing removed calf wound clean, no odor, no cellulitlis granulating Psychiatric exam: PRESENT: appropriate affect Results Laboratory Results: 01/19/19 08:27 01/19/19 08:27 01/18/19 01/19/19 01/19/19 15:02 08:27 08:27 WBC 9.5 RBC 3.19 L Hgb 9.3 L Hct 27.9 L MCV 87 MCH 29.3 MCHC 33.6 RDW 17.5 H Plt Count 185 Seg Neutrophils % 74.3 Lymphocytes % 18.2 Monocytes % 6.8 Eosinophils % 0.5 Basophils % 0.2 Absolute Neutrophils 7.1 Absolute Lymphocytes 1.7 Absolute Monocytes 0.6 Absolute Eosinophils 0.0 Absolute Basophils 0.0 Sodium 138.6 Potassium 3.8 Chloride 111 H Carbon Dioxide 23 Anion Gap 5 BUN 12 Creatinine 0.40 L Est GFR ( Amer) > 60 Est GFR (Non-Af Amer) > 60 Glucose 75 Calcium 7.9 L Blood Type O POSITIVE Antibody Screen NEGATIVE Impressions: Tibia/Fibula X-Ray 01/18/19 00:00 IMPRESSION: NEGATIVE STUDY OF THE RIGHT TIBIA AND FIBULA. NO RADIOGRAPHIC EVIDENCE OF ACUTE INJURY. Status: Image reviewed by me Assessment & Plan - Diagnosis (1) Laceration of left leg Qualifiers: Encounter type: sequela Qualified Code(s): S81.812S - Laceration without foreign body, left lower leg, sequela Is this a current diagnosis for this admission?: Yes - Plan Summary Plan Summary: calf wound clean, without evidence of ]infection would cont xeroform dressing changes bid.
[2019-01-20] MEDS: MELOXICAM 7.5 MG TABLET PO SCH (09:57)
[2019-01-20] MEDS: LURASIDONE HCL 40 MG TABLET PO SCH ×2 (09:58→22:51)
[2019-01-20] MEDS: SERTRALINE HCL 50 MG TABLET PO SCH (09:58)
[2019-01-20] MEDS: POTASSIUM CHLORIDE 10 MEQ CAPSULE.ER PO SCH (09:58)
[2019-01-20] MEDS: TOPIRAMATE 25 MG TABLET PO SCH ×2 (09:58→17:06)
[2019-01-20] MEDS: FLUDROCORTISONE ACETATE 0.1 MG TABLET PO SCH (09:58)
[2019-01-20] MEDS: AMITRIPTYLINE HCL 50 MG TABLET PO SCH (09:58)
[2019-01-20] MEDS ORDERED: (PENDING PHARMACY ID) (Amitriptyline Hcl [Elavil 100 Mg Tablet] 100 MG) PO SCH (10:00)
[2019-01-20] MEDS ORDERED: (PENDING PHARMACY ID) (Lisinopril [Prinivil 2.5 Mg Tablet] 2.5 MG) PO SCH (10:00)
[2019-01-20] MEDS: BENZTROPINE MESYLATE 1 MG TABLET PO SCH ×2 (10:01→21:47)
[2019-01-20] MEDS: COLLAGENASE CLOSTRIDIUM HIST. OINT 30 GM TOP SCH (10:35)
[2019-01-20] MEDS: FUROSEMIDE 40 MG TABLET PO SCH ×2 (11:42→21:47)
[2019-01-20] MEDS: CARVEDILOL 3.125 MG TABLET PO SCH ×3 (11:42→21:47)
[2019-01-20] MEDS: LISINOPRIL 5 MG TABLET PO SCH (11:43)
--- NOTE | 2019-01-20 20:35 | PDOC PROGRESS REPORT ---
Subjective Progress Note for:: 01/20/19 Subjective:: She has unexplained hypoalbuminemia, this is probably from mal nutrition, there is no proteinuria, there is no liver disease Reason For Visit: ACUTE BLOOD LOSS ANEMIA FROM LACERATION Physical Exam Vital Signs: Temp Pulse Resp BP Pulse Ox 98.4 F 98 17 98/64 L 98 01/20/19 20:00 01/20/19 20:00 01/20/19 20:00 01/20/19 20:00 01/20/19 20:00 Intake & Output 01/19/19 01/20/19 01/21/19 06:59 06:59 06:59 Intake Total 3672 1359 766 Output Total 3150 3050 800 Balance 522 -1691 -34 Weight 56.1 kg 56.3 kg General appearance: PRESENT: no acute distress Eye exam: PRESENT: PERRLA Respiratory exam: PRESENT: clear to auscultation rona Cardiovascular exam: PRESENT: +S1, +S2 GI/Abdominal exam: PRESENT: soft Extremities exam: PRESENT: other - Dressing of the left leg Neurological exam: PRESENT: alert Results Laboratory Results: 01/19/19 08:27 01/19/19 08:27 Impressions: Tibia/Fibula X-Ray 01/18/19 00:00 IMPRESSION: NEGATIVE STUDY OF THE RIGHT TIBIA AND FIBULA. NO RADIOGRAPHIC EVIDENCE OF ACUTE INJURY. Assessment & Plan - Diagnosis (1) Laceration of left leg Qualifiers: Encounter type: sequela Qualified Code(s): S81.812S - Laceration without foreign body, left lower leg, sequela Is this a current diagnosis for this admission?: Yes (2) Localized edema Is this a current diagnosis for this admission?: Yes (3) Hypoalbuminemia Is this a current diagnosis for this admission?: Yes Plan: This is probably from under-nutrition (4) Acute posthemorrhagic anemia Is this a current diagnosis for this admission?: Yes
[2019-01-20] MEDS ORDERED: ALBUTEROL SULFATE HFA (90 MCG/PUFF) 200 PUFF/8.5 GM MDI IH PRN (21:24)
[2019-01-20] MEDS: ACETAMINOPHEN 325 MG TABLET PO PRN (21:48)
[2019-01-20] MEDS: LEVOFLOXACIN 500 MG/D5W RTU 500 MG/100 ML RTUPB IV SCH (21:48)
[2019-01-21] MEDS: METRONIDAZOLE 500 MG/NS RTU 500 MG/100 ML RTUPB IV SCH (02:03)
[2019-01-21] MEDS: ALPRAZOLAM 0.5 MG TABLET PO PRN (02:03)
[2019-01-21] MEDS: GABAPENTIN 300 MG CAPSULE PO SCH ×3 (05:40→22:26)
[2019-01-21] MEDS: LEVOTHYROXINE SODIUM 0.088 MG TABLET PO SCH (05:40)
[2019-01-21] MEDS: LANSOPRAZOLE 30 MG TAB.RAP.DR PO SCH (05:40)
[2019-01-21] MEDS: OXYCODONE HCL IR 5 MG TABLET PO PRN ×2 (05:40→22:26)
[2019-01-21] MEDS: FUROSEMIDE 40 MG TABLET PO SCH ×2 (10:35→22:25)
[2019-01-21] MEDS: SERTRALINE HCL 50 MG TABLET PO SCH (10:35)
[2019-01-21] MEDS: LISINOPRIL 5 MG TABLET PO SCH (10:36)
[2019-01-21] MEDS: AMITRIPTYLINE HCL 50 MG TABLET PO SCH (10:37)
[2019-01-21] MEDS: CARVEDILOL 3.125 MG TABLET PO SCH ×2 (10:37→22:25)
[2019-01-21] MEDS: POTASSIUM CHLORIDE 10 MEQ CAPSULE.ER PO SCH (10:38)
[2019-01-21] MEDS: BENZTROPINE MESYLATE 1 MG TABLET PO SCH ×2 (10:38→22:25)
[2019-01-21] MEDS: LURASIDONE HCL 40 MG TABLET PO SCH ×2 (10:39→22:25)
[2019-01-21] MEDS: TOPIRAMATE 25 MG TABLET PO SCH ×2 (10:39→17:08)
[2019-01-21] MEDS: FLUTICASONE/VILANTEROL 100-25 MCG/DOSE IH SCH (10:41)
[2019-01-21] MEDS: FLUDROCORTISONE ACETATE 0.1 MG TABLET PO SCH (10:43)
[2019-01-21] MEDS: MELOXICAM 7.5 MG TABLET PO SCH (10:43)
--- NOTE | 2019-01-21 12:15 | PDOC PROGRESS REPORT ---
Subjective Reason For Visit: ACUTE BLOOD LOSS ANEMIA FROM LACERATION Physical Exam Vital Signs: Temp Pulse Resp BP Pulse Ox 99.1 F 84 16 109/69 99 01/21/19 11:56 01/21/19 11:56 01/21/19 11:56 01/21/19 11:56 01/21/19 11:56 Intake & Output 01/20/19 01/21/19 01/22/19 06:59 06:59 06:59 Intake Total 1359 1910 Output Total 3050 2300 Balance -1691 -390 Weight 56.3 kg 60.4 kg Results Laboratory Results: 01/19/19 08:27 01/19/19 08:27 Impressions: Tibia/Fibula X-Ray 01/18/19 00:00 IMPRESSION: NEGATIVE STUDY OF THE RIGHT TIBIA AND FIBULA. NO RADIOGRAPHIC EVIDENCE OF ACUTE INJURY. Assessment & Plan - Diagnosis (1) Laceration of left leg Qualifiers: Encounter type: subsequent encounter Qualified Code(s): S81.812D - Laceration without foreign body, left lower leg, subsequent encounter Is this a current diagnosis for this admission?: Yes - Plan Summary Plan Summary: This is a 48-year-old female status post debridement of skin of the left leg. I suspect this was related to hematoma, however the patient denies any trauma to the lower extremity. In any case, the wound is clean. There is healthy fatty tissue present in the base of the wound. Continue with local wound care. Fol low-up with wound care clinic for long-term wound management. All acute surgical issues have been addressed. I will see the patient again on an as- needed basis. Please renotify with any questions or concerns.
[2019-01-21 13:47] LABS: APPEARANCE,URINE CLEAR; BILIRUBIN,URINE NEGATIVE (NEGATIVE); COLOR,URINE YELLOW; GLUCOSE, URINE NEGATIVE (NEGATIVE); KETONES,URINE NEGATIVE (NEGATIVE); LEUKOCYTE ESTERASE,URINE TRACE (NEGATIVE); NITRITE,URINE NEGATIVE (NEGATIVE); PROTEIN,URINE NEGATIVE (NEGATIVE); URINE SPECIFIC GRAVITY 1.006; UROBILINOGEN,URINE NEGATIVE mg/dL (<2.0)
[2019-01-21] MEDS: METRONIDAZOLE 500 MG TABLET PO SCH ×2 (14:50→22:25)
[2019-01-21] MEDS: COLLAGENASE CLOSTRIDIUM HIST. OINT 30 GM TOP SCH (14:51)
--- NOTE | 2019-01-21 18:28 | PDOC PROGRESS REPORT ---
Subjective Progress Note for:: 01/21/19 Subjective:: Patient seen by the bedside Reason For Visit: ACUTE BLOOD LOSS ANEMIA FROM LACERATION Physical Exam Vital Signs: Temp Pulse Resp BP Pulse Ox 99.6 F 104 H 18 104/52 L 99 01/21/19 15:29 01/21/19 15:29 01/21/19 15:29 01/21/19 15:29 01/21/19 15:29 Intake & Output 01/20/19 01/21/19 01/22/19 06:59 06:59 06:59 Intake Total 1359 1910 754 Output Total 3050 2300 1700 Balance -5475 -675 -571 Weight 56.3 kg 60.4 kg General appearance: PRESENT: no acute distress Eye exam: PRESENT: PERRLA Respiratory exam: PRESENT: clear to auscultation rona Cardiovascular exam: PRESENT: +S1, +S2 GI/Abdominal exam: PRESENT: soft Neurological exam: PRESENT: alert Results Laboratory Results: 01/19/19 08:27 01/19/19 08:27 01/21/19 13:30 Urine Color YELLOW Urine Appearance CLEAR Urine pH 6.0 Ur Specific [place] 1.006 Urine Protein NEGATIVE Urine Glucose (UA) NEGATIVE Urine Ketones NEGATIVE Urine Blood NEGATIVE Urine Nitrite NEGATIVE Ur Leukocyte Esterase TRACE H Urine WBC (Auto) 1 Urine RBC (Auto) 1 Impressions: Tibia/Fibula X-Ray 01/18/19 00:00 IMPRESSION: NEGATIVE STUDY OF THE RIGHT TIBIA AND FIBULA. NO RADIOGRAPHIC EVIDENCE OF ACUTE INJURY. Assessment & Plan - Diagnosis (1) Laceration of left leg Qualifiers: Encounter type: subsequent encounter Qualified Code(s): S81.812D - Laceration without foreign body, left lower leg, subsequent encounter Is this a current diagnosis for this admission?: Yes (2) Localized edema Is this a current diagnosis for this admission?: Yes (3) Hypoalbuminemia Is this a current diagnosis for this admission?: Yes (4) Acute posthemorrhagic anemia Is this a current diagnosis for this admission?: Yes
[2019-01-21] MEDS: LEVOFLOXACIN 500 MG TABLET PO SCH (22:25)
[2019-01-22] MEDS: LEVOTHYROXINE SODIUM 0.088 MG TABLET PO SCH (06:53)
[2019-01-22] MEDS: PANTOPRAZOLE SODIUM 40 MG TABLET.DR PO SCH (06:53)
[2019-01-22] MEDS: OXYCODONE HCL IR 5 MG TABLET PO PRN ×2 (06:53→23:08)
[2019-01-22] MEDS: GABAPENTIN 300 MG CAPSULE PO SCH ×3 (06:53→22:36)
[2019-01-22] MEDS: METRONIDAZOLE 500 MG TABLET PO SCH ×3 (06:53→22:35)
[2019-01-22] MEDS: BENZTROPINE MESYLATE 1 MG TABLET PO SCH ×2 (09:21→22:34)
[2019-01-22] MEDS: AMITRIPTYLINE HCL 50 MG TABLET PO SCH (09:21)
[2019-01-22] MEDS: FUROSEMIDE 40 MG TABLET PO SCH ×2 (09:22→22:35)
[2019-01-22] MEDS: CARVEDILOL 3.125 MG TABLET PO SCH ×2 (09:22→22:34)
[2019-01-22] MEDS: TOPIRAMATE 25 MG TABLET PO SCH ×2 (09:22→18:10)
[2019-01-22] MEDS: FLUDROCORTISONE ACETATE 0.1 MG TABLET PO SCH (09:23)
[2019-01-22] MEDS: FLUTICASONE/VILANTEROL 100-25 MCG/DOSE IH SCH (09:23)
[2019-01-22] MEDS: LURASIDONE HCL 40 MG TABLET PO SCH ×2 (09:23→22:35)
[2019-01-22] MEDS: MELOXICAM 7.5 MG TABLET PO SCH (09:23)
[2019-01-22] MEDS: COLLAGENASE CLOSTRIDIUM HIST. OINT 30 GM TOP SCH (09:27)
[2019-01-22] MEDS: POTASSIUM CHLORIDE 10 MEQ CAPSULE.ER PO SCH (09:45)
[2019-01-22] MEDS: SERTRALINE HCL 50 MG TABLET PO SCH (09:45)
[2019-01-22] MEDS: LISINOPRIL 5 MG TABLET PO SCH (09:46)
[2019-01-22] MEDS: ACETAMINOPHEN 325 MG TABLET PO PRN (13:43)
[2019-01-22] MEDS ORDERED: (PENDING PHARMACY ID) (Clonazepam [Klonopin] 0.5 MG) PO PRN (18:06)
[2019-01-22] MEDS ORDERED: PETROLAT WHT OU PRN (18:06)
[2019-01-22] MEDS ORDERED: ACETAMINOPHEN 650 MG PO PRN (18:06)
[2019-01-22] MEDS ORDERED: MIN OIL OU PRN (18:06)
[2019-01-22] MEDS ORDERED: SOD CHL OU PRN (18:06)
[2019-01-22] MEDS ORDERED: ALBUTEROL SULFATE 0.083% NEB 2.5 MG/3 ML AMPUL NEB PRN (18:06)
[2019-01-22] MEDS ORDERED: (PENDING PHARMACY ID) (Umeclidinium Bromide [Incruse Ellipta] 1 PUFF) IH SCH (18:15)
[2019-01-22] MEDS ORDERED: SOD CHL OU SCH (18:15)
[2019-01-22] MEDS ORDERED: SERTRALINE HCL 50 MG TABLET PO SCH (18:15)
[2019-01-22] MEDS ORDERED: MIN OIL OU SCH (18:15)
[2019-01-22] MEDS ORDERED: (PENDING PHARMACY ID) (Potassium Chloride [Klor-Con M20] 20 MEQ) PO SCH (18:15)
[2019-01-22] MEDS ORDERED: PETROLAT WHT OU SCH (18:15)
[2019-01-22] MEDS ORDERED: HYDROCORTISONE 10 MG TABLET PO SCH (18:15)
[2019-01-22] MEDS ORDERED: (PENDING PHARMACY ID) (Lurasidone Hcl [Latuda] 40 MG) PO SCH (18:15)
[2019-01-22] MEDS: FAMOTIDINE 20 MG TABLET PO SCH (21:19)
[2019-01-22] MEDS ORDERED: TOPIRAMATE 25 MG TABLET PO SCH (22:00)
[2019-01-22] MEDS: AMLODIPINE BESYLATE 10 MG TABLET PO SCH (22:19)
[2019-01-22] MEDS: MULTIVITAMIN TABLET PO SCH (22:24)
[2019-01-22] MEDS: HYDROCORTISONE 10 MG TABLET PO SCH (22:34)
--- NOTE | 2019-01-22 22:34 | PDOC PROGRESS REPORT ---
Subjective Progress Note for:: 01/22/19 Subjective:: Patient was seen today by the bedside Reason For Visit: ACUTE BLOOD LOSS ANEMIA FROM LACERATION Physical Exam Vital Signs: Temp Pulse Resp BP Pulse Ox 99.3 F 99 17 94/55 L 100 01/22/19 20:00 01/22/19 20:00 01/22/19 20:00 01/22/19 20:00 01/22/19 20:00 Intake & Output 01/21/19 01/22/19 01/23/19 06:59 06:59 06:59 Intake Total 1910 1340 956 Output Total 2300 1700 820 Balance -390 -360 136 Weight 60.4 kg 61.4 kg 61.4 kg General appearance: PRESENT: no acute distress Eye exam: PRESENT: PERRLA Respiratory exam: PRESENT: clear to auscultation rona Cardiovascular exam: PRESENT: +S1, +S2 GI/Abdominal exam: PRESENT: soft Results Laboratory Results: 01/19/19 08:27 01/19/19 08:27 01/18/19 18:03 Leg - Left Gram Stain - Final 01/18/19 18:03 Leg - Left Wound Culture - Final NO AEROBIC OR ANAEROBIC ORGANISMS RECOVERED Impressions: Tibia/Fibula X-Ray 01/18/19 00:00 IMPRESSION: NEGATIVE STUDY OF THE RIGHT TIBIA AND FIBULA. NO RADIOGRAPHIC EVIDENCE OF ACUTE INJURY. Assessment & Plan - Diagnosis (1) Laceration of left leg Qualifiers: Encounter type: subsequent encounter Qualified Code(s): S81.812D - Laceration without foreign body, left lower leg, subsequent encounter Is this a current diagnosis for this admission?: Yes (2) Localized edema Is this a current diagnosis for this admission?: Yes (3) Hypoalbuminemia Is this a current diagnosis for this admission?: Yes (4) Acute posthemorrhagic anemia Is this a current diagnosis for this admission?: Yes
[2019-01-22] MEDS: NYSTATIN TOPICAL POWDER 15 GM TP SCH (22:35)
[2019-01-22] MEDS: LEVOFLOXACIN 500 MG TABLET PO SCH (22:35)
[2019-01-22] MEDS: ALPRAZOLAM 0.5 MG TABLET PO PRN (22:36)
[2019-01-22] MEDS: QUETIAPINE FUMARATE 25 MG TABLET PO SCH (22:36)
[2019-01-22 23:27] LABS: ABSOLUTE EOSINOPHILS # (AUTO) 0.1 10^3/uL (0.0-0.6); ABSOLUTE LYMPHOCYTES (AUTO) 1.3 10^3/uL (0.5-4.7); ABSOLUTE MONOCYTES (AUTO) 0.4 10^3/uL (0.1-1.4); ABSOLUTE NEUT (AUTO) 3.6 10^3/uL (1.7-8.2); BASOPHILS % (AUTO) 0.4 % (0-2); EOSINOPHILS % (AUTO) 1.1 % (0-6); HEMATOCRIT 24.5 % (36.0-47.0); LYMPHOCYTES % (AUTO) 24.9 % (13-45); MEAN CORPUSCULAR HEMOGLOBIN 28.8 pg (27.0-33.4); MEAN CORPUSCULAR HGB CONC 32.7 g/dL (32.0-36.0); MEAN CORPUSCULAR VOLUME 88 fl (80-97); MONOCYTES % (AUTO) 7.3 % (3-13); PLATELET COUNT 182 10^3/uL (150-450); RED BLOOD COUNT 2.79 10^6/uL (3.72-5.28); SEGMENTED NEUTROPHILS % (AUTO) 66.3 % (42-78); TOTAL CELLS COUNTED % (AUTO) 100 %; WHITE BLOOD COUNT 5.4 10^3/uL (4.0-10.5)
[2019-01-22 23:41] LABS: ALANINE AMINOTRANSFERASE 23 U/L (9-52); ALBUMIN 2.3 g/dL (3.5-5.0); ALKALINE PHOSPHATASE 91 U/L (38-126); ANION GAP 7 (5-19); ASPARTATE AMINO TRANSFERASE 16 U/L (14-36); BILIRUBIN,DIRECT 0.2 mg/dL (0.0-0.4); BILIRUBIN,TOTAL 0.2 mg/dL (0.2-1.3); BLOOD UREA NITROGEN 11 mg/dL (7-20); CALCIUM 7.7 mg/dL (8.4-10.2); CARBON DIOXIDE 23 mmol/L (22-30); CHLORIDE 107 mmol/L (98-107); GLUCOSE 103 mg/dL (75-110); SODIUM 137.2 mmol/L (137-145); TOTAL PROTEIN 4.3 g/dL (6.3-8.2)
[2019-01-22 23:43] LABS: POTASSIUM 2.9 mmol/L (3.6-5.0)
[2019-01-23] MEDS: POTASSIUM CHLORIDE 10 MEQ CAPSULE.ER PO SCH ×4 (00:28→12:14)
[2019-01-23] MEDS: METRONIDAZOLE 500 MG TABLET PO SCH ×3 (05:23→22:23)
[2019-01-23] MEDS: GABAPENTIN 300 MG CAPSULE PO SCH ×3 (05:23→22:23)
[2019-01-23] MEDS: PANTOPRAZOLE SODIUM 40 MG TABLET.DR PO SCH (05:23)
[2019-01-23] MEDS ORDERED: LEVOTHYROXINE SODIUM 0.088 MG TABLET PO SCH (06:00)
[2019-01-23] MEDS: LEVOTHYROXINE SODIUM 0.088 MG TABLET PO SCH (06:15)
[2019-01-23] MEDS: OXYCODONE HCL IR 5 MG TABLET PO PRN ×4 (06:15→22:35)
[2019-01-23] MEDS ORDERED: TOPIRAMATE 25 MG TABLET PO SCH (08:00)
[2019-01-23 08:19] LABS: ABSOLUTE EOSINOPHILS # (AUTO) 0.1 10^3/uL (0.0-0.6); ABSOLUTE LYMPHOCYTES (AUTO) 1.5 10^3/uL (0.5-4.7); ABSOLUTE MONOCYTES (AUTO) 0.5 10^3/uL (0.1-1.4); ABSOLUTE NEUT (AUTO) 3.3 10^3/uL (1.7-8.2); BASOPHILS % (AUTO) 0.3 % (0-2); EOSINOPHILS % (AUTO) 1.1 % (0-6); HEMATOCRIT 24.2 % (36.0-47.0); LYMPHOCYTES % (AUTO) 27.9 % (13-45); MEAN CORPUSCULAR HEMOGLOBIN 29.1 pg (27.0-33.4); MEAN CORPUSCULAR HGB CONC 33.2 g/dL (32.0-36.0); MEAN CORPUSCULAR VOLUME 88 fl (80-97); MONOCYTES % (AUTO) 8.6 % (3-13); PLATELET COUNT 193 10^3/uL (150-450); RED BLOOD COUNT 2.76 10^6/uL (3.72-5.28); RED CELL DISTRIBUTION WIDTH 17.7 % (11.5-14.0); SEGMENTED NEUTROPHILS % (AUTO) 62.1 % (42-78); TOTAL CELLS COUNTED % (AUTO) 100 %; WHITE BLOOD COUNT 5.3 10^3/uL (4.0-10.5)
[2019-01-23 08:47] LABS: ALANINE AMINOTRANSFERASE 19 U/L (9-52); ALBUMIN 2.5 g/dL (3.5-5.0); ALKALINE PHOSPHATASE 79 U/L (38-126); ANION GAP 8 (5-19); ASPARTATE AMINO TRANSFERASE 15 U/L (14-36); BILIRUBIN,DIRECT 0.3 mg/dL (0.0-0.4); BILIRUBIN,TOTAL 0.3 mg/dL (0.2-1.3); BLOOD UREA NITROGEN 10 mg/dL (7-20); CALCIUM 7.4 mg/dL (8.4-10.2); CARBON DIOXIDE 25 mmol/L (22-30); CHLORIDE 105 mmol/L (98-107); GLUCOSE 94 mg/dL (75-110); POTASSIUM 3.8 mmol/L (3.6-5.0); SODIUM 137.8 mmol/L (137-145); TOTAL PROTEIN 4.5 g/dL (6.3-8.2)
[2019-01-23] MEDS ORDERED: MINERAL OIL/PETROLATUM,WHITE OPH OINT 3.5 GM OU PRN (09:44)
[2019-01-23] MEDS: TOPIRAMATE 25 MG TABLET PO SCH ×2 (09:50→17:51)
[2019-01-23] MEDS: LURASIDONE HCL 40 MG TABLET PO SCH (09:51)
[2019-01-23] MEDS: FLUTICASONE/VILANTEROL 100-25 MCG/DOSE IH SCH (09:51)
[2019-01-23] MEDS: FLUDROCORTISONE ACETATE 0.1 MG TABLET PO SCH (09:51)
[2019-01-23] MEDS: MELOXICAM 7.5 MG TABLET PO SCH (09:52)
[2019-01-23] MEDS: QUETIAPINE FUMARATE 25 MG TABLET PO SCH ×2 (09:52→22:23)
[2019-01-23] MEDS ORDERED: FLUTICASONE/VILANTEROL 100-25 MCG/DOSE IH SCH (10:00)
[2019-01-23] MEDS: BENZTROPINE MESYLATE 1 MG TABLET PO SCH ×2 (10:01→22:23)
[2019-01-23] MEDS: MULTIVITAMIN TABLET PO SCH (10:01)
[2019-01-23] MEDS: SERTRALINE HCL 50 MG TABLET PO SCH (10:01)
[2019-01-23] MEDS: AMITRIPTYLINE HCL 50 MG TABLET PO SCH (10:01)
[2019-01-23] MEDS: FAMOTIDINE 20 MG TABLET PO SCH ×2 (10:01→17:50)
[2019-01-23] MEDS: ASCORBIC ACID 500 MG TABLET PO SCH (10:02)
[2019-01-23] MEDS: CARVEDILOL 3.125 MG TABLET PO SCH (10:06)
[2019-01-23] MEDS: LISINOPRIL 5 MG TABLET PO SCH (10:06)
[2019-01-23] MEDS: AMLODIPINE BESYLATE 10 MG TABLET PO SCH (10:06)
[2019-01-23] MEDS: FUROSEMIDE 40 MG TABLET PO SCH (10:07)
[2019-01-23] MEDS: NYSTATIN TOPICAL POWDER 15 GM TP SCH ×2 (10:08→22:24)
[2019-01-23] MEDS: COLLAGENASE CLOSTRIDIUM HIST. OINT 30 GM TOP SCH (10:09)
[2019-01-23] MEDS: MINERAL OIL/PETROLATUM,WHITE OPH OINT 3.5 GM OU SCH ×2 (12:14→17:51)
--- NOTE | 2019-01-23 17:39 | PDOC PROGRESS REPORT ---
Subjective Progress Note for:: 01/23/19 Subjective:: Patient was seen today by the bedside she has stage IV decubitus ulcer that was present on admission she need debridement consultation will be obtained from the surgeons she also has a large ulcer on the left leg that most likely will need skin grafting, the blood pressure is quite low she does not need this many medication for the control blood pressure Reason For Visit: ACUTE BLOOD LOSS ANEMIA FROM LACERATION Physical Exam Vital Signs: Temp Pulse Resp BP Pulse Ox 98.3 F 104 H 16 86/60 L 96 01/23/19 15:35 01/23/19 15:35 01/23/19 15:35 01/23/19 16:00 01/23/19 15:35 Intake & Output 01/22/19 01/23/19 01/24/19 06:59 06:59 06:59 Intake Total 1340 1808 Output Total 1700 1570 Balance -360 238 Weight 61.4 kg 59.6 kg General appearance: PRESENT: no acute distress Eye exam: PRESENT: PERRLA Respiratory exam: PRESENT: clear to auscultation rona Cardiovascular exam: PRESENT: +S1, +S2 GI/Abdominal exam: PRESENT: soft Neurological exam: PRESENT: alert Skin exam: PRESENT: other - stage IV sacrum decubitus ulcer Results Laboratory Results: 01/23/19 07:58 01/23/19 07:58 01/22/19 01/22/19 01/23/19 23:10 23:10 07:58 WBC 5.4 5.3 RBC 2.79 L 2.76 L Hgb 8.0 L 8.0 L Hct 24.5 L 24.2 L MCV 88 88 MCH 28.8 29.1 MCHC 32.7 33.2 RDW 18.0 H 17.7 H Plt Count 182 193 Seg Neutrophils % 66.3 62.1 Lymphocytes % 24.9 27.9 Monocytes % 7.3 8.6 Eosinophils % 1.1 1.1 Basophils % 0.4 0.3 Absolute Neutrophils 3.6 3.3 Absolute Lymphocytes 1.3 1.5 Absolute Monocytes 0.4 0.5 Absolute Eosinophils 0.1 0.1 Absolute Basophils 0.0 0.0 Sodium 137.2 Potassium 2.9 L* Chloride 107 Carbon Dioxide 23 Anion Gap 7 BUN 11 Creatinine 0.60 Est GFR ( Amer) > 60 Est GFR (Non-Af Amer) > 60 Glucose 103 Calcium 7.7 L Total Bilirubin 0.2 AST 16 ALT 23 Alkaline Phosphatase 91 Total Protein 4.3 L Albumin 2.3 L 01/23/19 07:58 WBC RBC Hgb Hct MCV MCH MCHC RDW Plt Count Seg Neutrophils % Lymphocytes % Monocytes % Eosinophils % Basophils % Absolute Neutrophils Absolute Lymphocytes Absolute Monocytes Absolute Eosinophils Absolute Basophils Sodium 137.8 Potassium 3.8 Chloride 105 Carbon Dioxide 25 Anion Gap 8 BUN 10 Creatinine 0.45 L Est GFR ( Amer) > 60 Est GFR (Non-Af Amer) > 60 Glucose 94 Calcium 7.4 L Total Bilirubin 0.3 AST 15 ALT 19 Alkaline Phosphatase 79 Total Protein 4.5 L Albumin 2.5 L Impressions: Tibia/Fibula X-Ray 01/18/19 00:00 IMPRESSION: NEGATIVE STUDY OF THE RIGHT TIBIA AND FIBULA. NO RADIOGRAPHIC EVIDENCE OF ACUTE INJURY. Assessment & Plan - Diagnosis (1) Laceration of left leg Qualifiers: Encounter type: subsequent encounter Qualified Code(s): S81.812D - Laceration without foreign body, left lower leg, subsequent encounter Is this a current diagnosis for this admission?: Yes (2) Localized edema Is this a current diagnosis for this admission?: Yes (3) Hypoalbuminemia Is this a current diagnosis for this admission?: Yes (4) Acute posthemorrhagic anemia Is this a current diagnosis for this admission?: Yes (5) Decubitus ulcer of sacral region, stage 4 Is this a current diagnosis for this admission?: Yes Plan: Consultation obtained from surgery (6) Low blood pressure Qualifiers: Hypotension type: other hypotension type Qualified Code(s): I95.89 - Other hypotension Is this a current diagnosis for this admission?: Yes Plan: Discontinue antihypertensive drugs
--- NOTE | 2019-01-23 20:18 | OPERATIVE REPORT E ---
Operative Report NAME: HILTON MI : 1970 AGE: 48Y DATE OF SURGERY: 01/23/2019 ROOM: 426 PREOPERATIVE DIAGNOSIS: SACRAL DECUBITUS ULCER STAGE III TO IV. POSTOPERATIVE DIAGNOSIS: SACRAL DECUBITUS ULCER STAGE III TO IV, MEASURING 5 X 4 X 1 CM. OPERATION: SHARP DEBRIDEMENT OF DECUBITUS ULCER 5 X 4 X 1 CM DEEP. SURGEON: CHIO GRAY M.D. PROCEDURE: The patient was placed in the right lateral decubitus position and sacral decubitus area identified. It was then prepped and draped in the usual sterile fashion. There was some exudate on the surface of the muscle, and this was then sharply debrided with the use of a 15 blade. There was some necrotic tissue on the right lateral aspect of the decubitus that was also sharply debrided. There was a marginal area of questionable viability of muscle or subcu in the right lateral area. It is starting to have some bleeding and therefore bedside debridement was stopped. The patient will be started on wet to dry dressings with saline every 12 hours and will follow as needed. The patient tolerated the procedure well. A wet to dry dressing with saline will be placed by the nurse. DICTATING PHYSICIAN: CHIO GRAY M.D. [id number] PHY#: [id number] ID: [id number] JOB#: [id number] ACCT: [id number] cc:CHIO GRAY M.D. >
[2019-01-23] MEDS: LEVOFLOXACIN 500 MG TABLET PO SCH (22:22)
[2019-01-23] MEDS: HYDROCORTISONE 10 MG TABLET PO SCH (22:23)
[2019-01-24] MEDS: OXYCODONE HCL IR 5 MG TABLET PO PRN ×4 (03:17→21:25)
[2019-01-24] MEDS: LEVOTHYROXINE SODIUM 0.088 MG TABLET PO SCH (05:40)
[2019-01-24] MEDS: GABAPENTIN 300 MG CAPSULE PO SCH ×3 (05:40→21:26)
[2019-01-24] MEDS: PANTOPRAZOLE SODIUM 40 MG TABLET.DR PO SCH (05:40)
[2019-01-24] MEDS: METRONIDAZOLE 500 MG TABLET PO SCH ×3 (05:40→21:27)
[2019-01-24] MEDS: ACETAMINOPHEN 325 MG TABLET PO PRN ×2 (08:07→15:19)
[2019-01-24] MEDS: TOPIRAMATE 25 MG TABLET PO SCH ×2 (08:08→17:34)
[2019-01-24] MEDS: QUETIAPINE FUMARATE 25 MG TABLET PO SCH (08:08)
[2019-01-24] MEDS: SERTRALINE HCL 50 MG TABLET PO SCH (09:19)
[2019-01-24] MEDS: ASCORBIC ACID 500 MG TABLET PO SCH (09:19)
[2019-01-24] MEDS: POTASSIUM CHLORIDE 10 MEQ CAPSULE.ER PO SCH (09:20)
[2019-01-24] MEDS: MULTIVITAMIN TABLET PO SCH (09:20)
[2019-01-24] MEDS: LURASIDONE HCL 40 MG TABLET PO SCH (09:21)
[2019-01-24] MEDS: MELOXICAM 7.5 MG TABLET PO SCH (09:21)
[2019-01-24] MEDS: BENZTROPINE MESYLATE 1 MG TABLET PO SCH ×2 (09:21→21:26)
[2019-01-24] MEDS: FAMOTIDINE 20 MG TABLET PO SCH ×2 (09:21→17:34)
[2019-01-24] MEDS: MINERAL OIL/PETROLATUM,WHITE OPH OINT 3.5 GM OU SCH ×2 (09:25→17:36)
[2019-01-24] MEDS: FLUTICASONE/VILANTEROL 100-25 MCG/DOSE IH SCH (10:00)
--- NOTE | 2019-01-24 11:43 | PDOC PROGRESS REPORT ---
Subjective Progress Note for:: 01/24/19 Subjective:: Patient was admitted for the status post decubitus ulcer status post debridement and left leg lacerations Patient currently doing fair No chest pain no short of breath I saw the patient has some low-grade fever Patient is currently on antibiotic Reason For Visit: ACUTE BLOOD LOSS ANEMIA FROM LACERATION Physical Exam Vital Signs: Temp Pulse Resp BP Pulse Ox 100.1 F 98 17 110/60 98 01/24/19 07:49 01/24/19 07:49 01/24/19 07:49 01/24/19 07:49 01/24/19 07:49 Intake & Output 01/23/19 01/24/19 01/25/19 06:59 06:59 06:59 Intake Total 1808 1900 Output Total 1570 Balance 238 1900 Weight 59.6 kg 61.4 kg General appearance: PRESENT: no acute distress, well-developed, well-nourished Head exam: PRESENT: atraumatic, normocephalic Eye exam: PRESENT: conjunctiva pink, EOMI, PERRLA. ABSENT: scleral icterus Ear exam: PRESENT: normal external ear exam Mouth exam: PRESENT: moist, tongue midline Neck exam: PRESENT: full ROM. ABSENT: carotid bruit, JVD, lymphadenopathy, thyromegaly Respiratory exam: PRESENT: clear to auscultation rona Cardiovascular exam: PRESENT: RRR. ABSENT: diastolic murmur, rubs, systolic murmur Vascular exam: PRESENT: normal capillary refill GI/Abdominal exam: PRESENT: normal bowel sounds, soft. ABSENT: distended, guarding, mass, organolmegaly, rebound, tenderness Rectal exam: PRESENT: deferred Neurological exam: PRESENT: alert, awake, oriented to person, oriented to place, oriented to time, oriented to situation. ABSENT: motor sensory deficit Psychiatric exam: PRESENT: appropriate affect, normal mood. ABSENT: homicidal ideation, suicidal ideation Skin exam: PRESENT: dry, intact, warm. ABSENT: cyanosis, rash Results Laboratory Results: 01/23/19 07:58 01/23/19 07:58 Impressions: Tibia/Fibula X-Ray 01/18/19 00:00 IMPRESSION: NEGATIVE STUDY OF THE RIGHT TIBIA AND FIBULA. NO RADIOGRAPHIC EVIDENCE OF ACUTE INJURY. Assessment & Plan - Diagnosis (1) Decubitus ulcer of sacral region, stage 4 Is this a current diagnosis for this admission?: Yes (2) Hypoalbuminemia Is this a current diagnosis for this admission?: Yes (3) Laceration of left leg Qualifiers: Encounter type: subsequent encounter Qualified Code(s): S81.812D - Laceration without foreign body, left lower leg, subsequent encounter Is this a current diagnosis for this admission?: Yes (4) Anemia of chronic disease Is this a current diagnosis for this admission?: Yes - Time Time Spent with patient: 15-24 minutes Medications reviewed and adjusted accordingly: Yes Anticipated discharge: SNF Within: Other - Plan Summary Plan Summary: Will check the blood work in the morning Patient have a concerns about the Seroquel which make the patient's severe feeling in it which he stopped the Seroquel
[2019-01-24] MEDS: NYSTATIN TOPICAL POWDER 15 GM TP SCH ×2 (12:52→21:28)
[2019-01-24] MEDS: COLLAGENASE CLOSTRIDIUM HIST. OINT 30 GM TOP SCH (12:53)
[2019-01-24] MEDS: AMITRIPTYLINE HCL 50 MG TABLET PO SCH (21:26)
[2019-01-24] MEDS: LEVOFLOXACIN 500 MG TABLET PO SCH (21:26)
[2019-01-24] MEDS: HYDROCORTISONE 10 MG TABLET PO SCH (21:27)
[2019-01-25] MEDS: OXYCODONE HCL IR 5 MG TABLET PO PRN ×4 (03:01→20:30)
[2019-01-25] MEDS: ACETAMINOPHEN 325 MG TABLET PO PRN ×3 (03:56→17:57)
[2019-01-25] MEDS: PANTOPRAZOLE SODIUM 40 MG TABLET.DR PO SCH (05:29)
[2019-01-25] MEDS: GABAPENTIN 300 MG CAPSULE PO SCH ×3 (05:29→22:15)
[2019-01-25] MEDS: METRONIDAZOLE 500 MG TABLET PO SCH (05:29)
[2019-01-25] MEDS: LEVOTHYROXINE SODIUM 0.088 MG TABLET PO SCH (05:30)
[2019-01-25 06:23] LABS: ABSOLUTE LYMPHOCYTES (AUTO) 0.7 10^3/uL (0.5-4.7); ABSOLUTE MONOCYTES (AUTO) 0.5 10^3/uL (0.1-1.4); ABSOLUTE NEUT (AUTO) 5.1 10^3/uL (1.7-8.2); BASOPHILS % (AUTO) 0.5 % (0-2); EOSINOPHILS % (AUTO) 0.8 % (0-6); HEMATOCRIT 24.5 % (36.0-47.0); LYMPHOCYTES % (AUTO) 10.8 % (13-45); MEAN CORPUSCULAR HEMOGLOBIN 28.6 pg (27.0-33.4); MEAN CORPUSCULAR HGB CONC 32.8 g/dL (32.0-36.0); MEAN CORPUSCULAR VOLUME 87 fl (80-97); MONOCYTES % (AUTO) 7.3 % (3-13); PLATELET COUNT 223 10^3/uL (150-450); RED BLOOD COUNT 2.81 10^6/uL (3.72-5.28); RED CELL DISTRIBUTION WIDTH 17.2 % (11.5-14.0); SEGMENTED NEUTROPHILS % (AUTO) 80.6 % (42-78); TOTAL CELLS COUNTED % (AUTO) 100 %; WHITE BLOOD COUNT 6.3 10^3/uL (4.0-10.5)
[2019-01-25 06:44] LABS: ANION GAP 8 (5-19); BLOOD UREA NITROGEN 10 mg/dL (7-20); CALCIUM 8.1 mg/dL (8.4-10.2); CARBON DIOXIDE 22 mmol/L (22-30); CHLORIDE 104 mmol/L (98-107); GLUCOSE 100 mg/dL (75-110)
[2019-01-25] MEDS: TOPIRAMATE 25 MG TABLET PO SCH ×2 (08:57→17:58)
[2019-01-25] MEDS ORDERED: METRONIDAZOLE 500 MG TABLET PO SCH (10:00)
[2019-01-25] MEDS ORDERED: LEVOFLOXACIN 500 MG TABLET PO SCH (10:00)
--- NOTE | 2019-01-25 10:30 | PDOC PROGRESS REPORT ---
Subjective Progress Note for:: 01/25/19 Subjective:: Patient is currently doing fair patient is complaining some cough with yellowish sputum no fever no chills Reason For Visit: ACUTE BLOOD LOSS ANEMIA FROM LACERATION Physical Exam Vital Signs: Temp Pulse Resp BP Pulse Ox 100.7 F H 114 H 17 107/67 96 01/25/19 08:00 01/25/19 08:00 01/25/19 08:00 01/25/19 08:00 01/25/19 08:00 Intake & Output 01/24/19 01/25/19 01/26/19 06:59 06:59 06:59 Intake Total 1899 2039 Balance 1899 2039 Weight 61.4 kg 62.4 kg General appearance: PRESENT: no acute distress, well-developed, well-nourished Head exam: PRESENT: atraumatic, normocephalic Eye exam: PRESENT: conjunctiva pink, EOMI, PERRLA. ABSENT: scleral icterus Ear exam: PRESENT: normal external ear exam Mouth exam: PRESENT: moist, tongue midline Neck exam: PRESENT: full ROM. ABSENT: carotid bruit, JVD, lymphadenopathy, thyromegaly Respiratory exam: PRESENT: clear to auscultation rona Cardiovascular exam: PRESENT: RRR. ABSENT: diastolic murmur, rubs, systolic murmur Vascular exam: PRESENT: normal capillary refill GI/Abdominal exam: PRESENT: normal bowel sounds, soft. ABSENT: distended, guarding, mass, organolmegaly, rebound, tenderness Rectal exam: PRESENT: deferred Neurological exam: PRESENT: alert, awake, oriented to person, oriented to place, oriented to time, oriented to situation. ABSENT: motor sensory deficit Psychiatric exam: PRESENT: appropriate affect, normal mood. ABSENT: homicidal ideation, suicidal ideation Skin exam: PRESENT: dry, intact, warm. ABSENT: cyanosis, rash Results Laboratory Results: 01/25/19 06:10 01/25/19 06:10 01/25/19 01/25/19 06:10 06:10 WBC 6.3 RBC 2.81 L Hgb 8.0 L Hct 24.5 L MCV 87 MCH 28.6 MCHC 32.8 RDW 17.2 H Plt Count 223 Seg Neutrophils % 80.6 H Lymphocytes % 10.8 L Monocytes % 7.3 Eosinophils % 0.8 Basophils % 0.5 Absolute Neutrophils 5.1 Absolute Lymphocytes 0.7 Absolute Monocytes 0.5 Absolute Eosinophils 0.0 Absolute Basophils 0.0 Sodium 134.0 L Potassium 4.0 Chloride 104 Carbon Dioxide 22 Anion Gap 8 BUN 10 Creatinine 0.50 L Est GFR ( Amer) > 60 Est GFR (Non-Af Amer) > 60 Glucose 100 Calcium 8.1 L Impressions: Tibia/Fibula X-Ray 01/18/19 00:00 IMPRESSION: NEGATIVE STUDY OF THE RIGHT TIBIA AND FIBULA. NO RADIOGRAPHIC EVIDENCE OF ACUTE INJURY. Assessment & Plan - Diagnosis (1) Decubitus ulcer of sacral region, stage 4 Is this a current diagnosis for this admission?: Yes (2) Hypoalbuminemia Is this a current diagnosis for this admission?: Yes (3) Laceration of left leg Qualifiers: Encounter type: subsequent encounter Qualified Code(s): S81.812D - Laceration without foreign body, left lower leg, subsequent encounter Is this a current diagnosis for this admission?: Yes (4) Anemia of chronic disease Is this a current diagnosis for this admission?: Yes (5) Cough Is this a current diagnosis for this admission?: Yes Plan: Will get the chest x-ray and a sputum culture Continues the Levaquin - Time Time Spent with patient: 15-24 minutes Medications reviewed and adjusted accordingly: Yes Anticipated discharge: Home, SNF Within: Other - Plan Summary Plan Summary: The sputum culture and chest x-ray
[2019-01-25] MEDS: FLUTICASONE/VILANTEROL 100-25 MCG/DOSE IH SCH (10:36)
[2019-01-25] MEDS: LURASIDONE HCL 40 MG TABLET PO SCH (10:42)
[2019-01-25] MEDS: MULTIVITAMIN TABLET PO SCH (10:42)
[2019-01-25] MEDS: MELOXICAM 7.5 MG TABLET PO SCH (10:42)
[2019-01-25] MEDS: POTASSIUM CHLORIDE 10 MEQ CAPSULE.ER PO SCH (10:42)
[2019-01-25] MEDS: FAMOTIDINE 20 MG TABLET PO SCH ×2 (10:42→17:57)
[2019-01-25] MEDS: MINERAL OIL/PETROLATUM,WHITE OPH OINT 3.5 GM OU SCH ×3 (10:43→17:28)
[2019-01-25] MEDS: BENZTROPINE MESYLATE 1 MG TABLET PO SCH ×2 (10:43→22:15)
[2019-01-25] MEDS: NYSTATIN TOPICAL POWDER 15 GM TP SCH ×2 (10:44→22:16)
[2019-01-25] MEDS: COLLAGENASE CLOSTRIDIUM HIST. OINT 30 GM TOP SCH (10:44)
[2019-01-25] MEDS: ASCORBIC ACID 500 MG TABLET PO SCH (10:44)
[2019-01-25] MEDS: LEVOFLOXACIN 500 MG/D5W RTU 500 MG/100 ML RTUPB IV SCH (11:52)
--- NOTE | 2019-01-25 13:11 | RADIOLOGY REPORT (SQ) ---
EXAM DESCRIPTION: CHEST SINGLE VIEW COMPLETED DATE/TIME: 01/25/2019 11:07 am REASON FOR STUDY: Cough COMPARISON: 11/21/2017 and earlier EXAM PARAMETERS: NUMBER OF VIEWS: One view. TECHNIQUE: Single frontal radiographic view of the chest acquired. RADIATION DOSE: NA LIMITATIONS: None. FINDINGS: LUNGS AND PLEURA: Slight prominence of the interstitial markings of the left lung which ma y be partially attributed to rotational positioning of the patient but has greatly improved since barby or radiograph. No focal consolidation, no pleural effusion or pneumothorax. MEDIASTINUM AND HILAR STRUCTURES: No masses. Contour normal. HEART AND VASCULAR STRUCTURES: Heart normal in size. Normal vasculature. BONES: No acute findings. HARDWARE: None in the chest. OTHER: No other significant finding. IMPRESSION: Prominent asymmetric interstitial markings of the left lung which may be partially attri buted to rotational positioning of the patient but have significantly improved since prior radiograph of 11/21/2017. No focal consolidation. TECHNICAL DOCUMENTATION: JOB ID: [id number] [employer]- All Rights Reserved Reading location - IP/workstation name: [email or web address]
[2019-01-25] MEDS: HYDROCORTISONE 10 MG TABLET PO SCH (22:15)
[2019-01-25] MEDS: AMITRIPTYLINE HCL 50 MG TABLET PO SCH (22:15)
[2019-01-26] MEDS: OXYCODONE HCL IR 5 MG TABLET PO PRN ×4 (00:54→21:12)
[2019-01-26 05:35] LABS: ANION GAP 6 (5-19); BLOOD UREA NITROGEN 8 mg/dL (7-20); CALCIUM 8.2 mg/dL (8.4-10.2); CARBON DIOXIDE 23 mmol/L (22-30); CHLORIDE 107 mmol/L (98-107); GLUCOSE 106 mg/dL (75-110); POTASSIUM 4.1 mmol/L (3.6-5.0); SODIUM 135.9 mmol/L (137-145)
[2019-01-26] MEDS: LEVOTHYROXINE SODIUM 0.088 MG TABLET PO SCH (05:49)
[2019-01-26] MEDS: PANTOPRAZOLE SODIUM 40 MG TABLET.DR PO SCH (05:50)
[2019-01-26] MEDS: GABAPENTIN 300 MG CAPSULE PO SCH ×3 (05:50→21:13)
[2019-01-26] MEDS: TOPIRAMATE 25 MG TABLET PO SCH ×2 (07:47→17:17)
[2019-01-26] MEDS: ASCORBIC ACID 500 MG TABLET PO SCH (09:39)
[2019-01-26] MEDS: FAMOTIDINE 20 MG TABLET PO SCH ×2 (09:39→17:17)
[2019-01-26] MEDS: MELOXICAM 7.5 MG TABLET PO SCH (09:39)
[2019-01-26] MEDS: BENZTROPINE MESYLATE 1 MG TABLET PO SCH ×2 (09:39→21:13)
[2019-01-26] MEDS: MULTIVITAMIN TABLET PO SCH (09:39)
[2019-01-26] MEDS: LURASIDONE HCL 40 MG TABLET PO SCH (09:39)
[2019-01-26] MEDS: POTASSIUM CHLORIDE 10 MEQ CAPSULE.ER PO SCH (09:39)
[2019-01-26] MEDS: FLUTICASONE/VILANTEROL 100-25 MCG/DOSE IH SCH (09:40)
[2019-01-26] MEDS: NYSTATIN TOPICAL POWDER 15 GM TP SCH ×2 (09:40→21:14)
[2019-01-26] MEDS: MINERAL OIL/PETROLATUM,WHITE OPH OINT 3.5 GM OU SCH ×2 (09:40→17:15)
[2019-01-26] MEDS: COLLAGENASE CLOSTRIDIUM HIST. OINT 30 GM TOP SCH (09:41)
[2019-01-26] MEDS: ACETAMINOPHEN 325 MG TABLET PO PRN (13:15)
[2019-01-26] MEDS: LEVOFLOXACIN 500 MG/D5W RTU 500 MG/100 ML RTUPB IV SCH (13:16)
[2019-01-26] MEDS ORDERED: NORMAL SALINE 1000 ML 1,000 ML IV PRN (19:08)
--- NOTE | 2019-01-26 19:16 | PDOC PROGRESS REPORT ---
Subjective Progress Note for:: 01/26/19 Subjective:: Patient was seen by the bedside, she has been having fever with temperature 101 range, there is no definitive source other than the decubitus ulcer in the sacrum, stage 3-4 that was debrided on Saturday about 3 days ago, she does not look overly sick. She is supposed to be on hydrocortisone replacement therapy of 30 mg in 24 hours but she is only taking the 10 mg at bedtime, she has not been taking 20 mg in a.m., this to be started today. I inspected the decubitus ulcer in the sacrum it does not look overtly infected there is some slight yellow tint to the exudate on the surface of the ulcer, this could be a potential source for infection Reason For Visit: ACUTE BLOOD LOSS ANEMIA FROM LACERATION Physical Exam Vital Signs: Temp Pulse Resp BP Pulse Ox 99.1 F 99 20 93/51 L 98 01/26/19 16:00 01/26/19 16:00 01/26/19 16:00 01/26/19 16:00 01/26/19 16:00 Intake & Output 01/25/19 01/26/19 01/27/19 06:59 06:59 06:59 Intake Total 2039 1989 156 Output Total 1869 1500 Balance 2040 120 62 Weight 62.4 kg 62.4 kg 62.4 kg General appearance: PRESENT: no acute distress Eye exam: PRESENT: PERRLA Respiratory exam: PRESENT: clear to auscultation rona Cardiovascular exam: PRESENT: +S1, +S2 GI/Abdominal exam: PRESENT: soft Neurological exam: PRESENT: alert Skin exam: PRESENT: other - Decubiti ulcer in the sacrum, oval shaped, measures about 2 x 2 cm in dimension, the underlying fat layer is exposed, there is yellowish tint to the surface exudate Results Laboratory Results: 01/25/19 06:10 01/26/19 04:50 01/26/19 04:50 Sodium 135.9 L Potassium 4.1 Chloride 107 Carbon Dioxide 23 Anion Gap 6 BUN 8 Creatinine 0.48 L Est GFR ( Amer) > 60 Est GFR (Non-Af Amer) > 60 Glucose 106 Calcium 8.2 L Impressions: Tibia/Fibula X-Ray 01/18/19 00:00 IMPRESSION: NEGATIVE STUDY OF THE RIGHT TIBIA AND FIBULA. NO RADIOGRAPHIC EVIDE NCE OF ACUTE INJURY. Chest X-Ray 01/25/19 00:00 IMPRESSION: Prominent asymmetric interstitial markings of the left lung which may be partially attributed to rotational positioning of the patient but have significantly improved since prior radiograph of 11/21/2017. No focal consolidation. Assessment & Plan - Diagnosis (1) Laceration of left leg Qualifiers: Encounter type: subsequent encounter Qualified Code(s): S81.812D - Laceration without foreign body, left lower leg, subsequent encounter Is this a current diagnosis for this admission?: Yes (2) Localized edema Is this a current diagnosis for this admission?: Yes (3) Hypoalbuminemia Is this a current diagnosis for this admission?: Yes (4) Acute posthemorrhagic anemia Is this a current diagnosis for this admission?: Yes (5) Decubitus ulcer of sacral region, stage 4 Is this a current diagnosis for this admission?: Yes (6) Low blood pressure Qualifiers: Hypotension type: other hypotension type Qualified Code(s): I95.89 - Other hypotension Is this a current diagnosis for this admission?: Yes (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
[2019-01-26] MEDS: AMITRIPTYLINE HCL 50 MG TABLET PO SCH (21:12)
[2019-01-26] MEDS: HYDROCORTISONE 10 MG TABLET PO SCH ×2 (21:13→23:46)
[2019-01-27] MEDS: LEVOTHYROXINE SODIUM 0.088 MG TABLET PO SCH (05:57)
[2019-01-27] MEDS: PANTOPRAZOLE SODIUM 40 MG TABLET.DR PO SCH (05:57)
[2019-01-27] MEDS: GABAPENTIN 300 MG CAPSULE PO SCH ×3 (05:57→21:28)
[2019-01-27] MEDS: OXYCODONE HCL IR 5 MG TABLET PO PRN ×4 (06:01→23:06)
[2019-01-27 07:06] LABS: ANION GAP 6 (5-19); BLOOD UREA NITROGEN 9 mg/dL (7-20); CALCIUM 8.2 mg/dL (8.4-10.2); CARBON DIOXIDE 22 mmol/L (22-30); CHLORIDE 110 mmol/L (98-107); GLUCOSE 90 mg/dL (75-110); POTASSIUM 4.4 mmol/L (3.6-5.0); SODIUM 138.1 mmol/L (137-145)
[2019-01-27] MEDS: HYDROCORTISONE 10 MG TABLET PO SCH ×2 (07:49→21:30)
[2019-01-27] MEDS: MULTIVITAMIN TABLET PO SCH (09:16)
[2019-01-27] MEDS: ASCORBIC ACID 500 MG TABLET PO SCH (09:16)
[2019-01-27] MEDS: FAMOTIDINE 20 MG TABLET PO SCH ×2 (09:16→18:00)
[2019-01-27] MEDS: POTASSIUM CHLORIDE 10 MEQ CAPSULE.ER PO SCH (09:16)
[2019-01-27] MEDS: BENZTROPINE MESYLATE 1 MG TABLET PO SCH ×2 (09:17→21:28)
[2019-01-27] MEDS: MELOXICAM 7.5 MG TABLET PO SCH (09:18)
[2019-01-27] MEDS: LURASIDONE HCL 40 MG TABLET PO SCH (09:18)
[2019-01-27] MEDS: MINERAL OIL/PETROLATUM,WHITE OPH OINT 3.5 GM OU SCH ×2 (09:19→17:23)
[2019-01-27] MEDS: TOPIRAMATE 25 MG TABLET PO SCH ×2 (09:20→18:00)
[2019-01-27] MEDS: FLUTICASONE/VILANTEROL 100-25 MCG/DOSE IH SCH (09:20)
[2019-01-27] MEDS: COLLAGENASE CLOSTRIDIUM HIST. OINT 30 GM TOP SCH (09:22)
[2019-01-27] MEDS: NYSTATIN TOPICAL POWDER 15 GM TP SCH ×2 (09:22→21:29)
[2019-01-27] MEDS: LEVOFLOXACIN 500 MG/D5W RTU 500 MG/100 ML RTUPB IV SCH (11:10)
[2019-01-27] MEDS: AMITRIPTYLINE HCL 50 MG TABLET PO SCH (21:28)
[2019-01-27 22:26] LABS: HEMATOCRIT 24.9 % (36.0-47.0); HEMOGLOBIN 8.2 g/dL (12.0-15.5); MEAN CORPUSCULAR HEMOGLOBIN 28.8 pg (27.0-33.4); MEAN CORPUSCULAR HGB CONC 33.1 g/dL (32.0-36.0); MEAN CORPUSCULAR VOLUME 87 fl (80-97); PLATELET COUNT 299 10^3/uL (150-450); RED BLOOD COUNT 2.86 10^6/uL (3.72-5.28); RED CELL DISTRIBUTION WIDTH 17.5 % (11.5-14.0)
[2019-01-27 22:37] LABS: ANION GAP 8 (5-19); BLOOD UREA NITROGEN 8 mg/dL (7-20); CALCIUM 8.1 mg/dL (8.4-10.2); CARBON DIOXIDE 19 mmol/L (22-30); CHLORIDE 110 mmol/L (98-107); GLUCOSE 97 mg/dL (75-110); POTASSIUM 4.3 mmol/L (3.6-5.0); SODIUM 137.4 mmol/L (137-145)
--- NOTE | 2019-01-27 23:18 | PDOC PROGRESS REPORT ---
Subjective Progress Note for:: 01/27/19 Subjective:: Patient was seen by the bedside Reason For Visit: ACUTE BLOOD LOSS ANEMIA FROM LACERATION Physical Exam Vital Signs: Temp Pulse Resp BP Pulse Ox 98.3 F 86 17 95/60 L 98 01/27/19 20:00 01/27/19 20:00 01/27/19 20:00 01/27/19 20:00 01/27/19 20:00 Intake & Output 01/26/19 01/27/19 01/28/19 06:59 06:59 06:59 Intake Total 1989 2186 366 Output Total 1870 1500 Balance 120 686 366 Weight 62.4 kg 61.2 kg General appearance: PRESENT: no acute distress Eye exam: PRESENT: PERRLA Respiratory exam: PRESENT: clear to auscultation rona Cardiovascular exam: PRESENT: +S1, +S2 GI/Abdominal exam: PRESENT: soft Neurological exam: PRESENT: alert Results Laboratory Results: 01/27/19 21:57 01/27/19 21:57 01/27/19 01/27/19 01/27/19 05:39 21:57 21:57 WBC 6.0 RBC 2.86 L Hgb 8.2 L Hct 24.9 L MCV 87 MCH 28.8 MCHC 33.1 RDW 17.5 H Plt Count 299 Sodium 138.1 137.4 Potassium 4.4 4.3 Chloride 110 H 110 H Carbon Dioxide 22 19 L Anion Gap 6 8 BUN 9 8 Creatinine 0.49 L 0.52 Est GFR ( Amer) > 60 > 60 Est GFR (Non-Af Amer) > 60 > 60 Glucose 90 97 Calcium 8.2 L 8.1 L 01/25/19 14:20 Sputum Gram Stain - Final 01/25/19 14:20 Sputum Sputum Culture - Final NORMAL AMOR Impressions: Tibia/Fibula X-Ray 01/18/19 00:00 IMPRESSION: NEGATIVE STUDY OF THE RIGHT TIBIA AND FIBULA. NO RADIOGRAPHIC EVIDENCE OF ACUTE INJURY. Chest X-Ray 01/25/19 00:00 IMPRESSION: Prominent asymmetric interstitial markings of the left lung which may be partially attributed to rotational positioning of the patient but have significantly improved since prior radiograph of 11/21/2017. No focal consolidation. Assessment & Plan - Diagnosis (1) Laceration of left leg Qualifiers: Encounter type: subsequent encounter Qualified Code(s): S81.812D - Laceration without foreign body, left lower leg, subsequent encounter Is this a current diagnosis for this admission?: Yes (2) Localized edema Is this a current diagnosis for this admission?: Yes (3) Hypoalbuminemia Is this a current diagnosis for this admission?: Yes (4) Acute posthemorrhagic anemia Is this a current diagnosis for this admission?: Yes (5) Decubitus ulcer of sacral region, stage 4 Is this a current diagnosis for this admission?: Yes (6) Low blood pressure Qualifiers: Hypotension type: other hypotension type Qualified Code(s): I95.89 - Other hypotension Is this a current diagnosis for this admission?: Yes (7) Hypocortisolism Is this a current diagnosis for this admission?: Yes
[2019-01-28] MEDS: PANTOPRAZOLE SODIUM 40 MG TABLET.DR PO SCH (05:32)
[2019-01-28] MEDS: OXYCODONE HCL IR 5 MG TABLET PO PRN ×4 (05:32→22:08)
[2019-01-28] MEDS: LEVOTHYROXINE SODIUM 0.088 MG TABLET PO SCH (05:32)
[2019-01-28] MEDS: GABAPENTIN 300 MG CAPSULE PO SCH ×3 (05:32→23:00)
[2019-01-28] MEDS: HYDROCORTISONE 10 MG TABLET PO SCH ×2 (08:47→23:01)
[2019-01-28] MEDS: TOPIRAMATE 25 MG TABLET PO SCH ×2 (08:47→17:03)
[2019-01-28] MEDS: HYDROCODONE/ACETAMINOPHEN 5-325 MG TABLET PO PRN (08:54)
[2019-01-28] MEDS: CLONAZEPAM 1 MG TABLET PO PRN (08:54)
[2019-01-28] MEDS: BENZTROPINE MESYLATE 1 MG TABLET PO SCH ×2 (10:52→23:01)
[2019-01-28] MEDS: POTASSIUM CHLORIDE 10 MEQ CAPSULE.ER PO SCH (10:52)
[2019-01-28] MEDS: MELOXICAM 7.5 MG TABLET PO SCH (10:52)
[2019-01-28] MEDS: MULTIVITAMIN TABLET PO SCH (10:52)
[2019-01-28] MEDS: ASCORBIC ACID 500 MG TABLET PO SCH (10:52)
[2019-01-28] MEDS: FAMOTIDINE 20 MG TABLET PO SCH ×2 (10:52→17:03)
[2019-01-28] MEDS: MINERAL OIL/PETROLATUM,WHITE OPH OINT 3.5 GM OU SCH ×2 (10:53→17:00)
[2019-01-28] MEDS: FLUTICASONE/VILANTEROL 100-25 MCG/DOSE IH SCH (10:53)
[2019-01-28] MEDS: NYSTATIN TOPICAL POWDER 15 GM TP SCH ×2 (10:54→23:02)
[2019-01-28] MEDS: COLLAGENASE CLOSTRIDIUM HIST. OINT 30 GM TOP SCH (10:55)
[2019-01-28] MEDS: LEVOFLOXACIN 500 MG/D5W RTU 500 MG/100 ML RTUPB IV SCH (12:40)
[2019-01-28] MEDS: LURASIDONE HCL 40 MG TABLET PO SCH (13:04)
[2019-01-28] MEDS: ONDANSETRON 4 MG TAB.RAPDIS PO PRN (16:52)
--- NOTE | 2019-01-28 20:14 | PDOC PROGRESS REPORT ---
Subjective Progress Note for:: 01/28/19 Subjective:: Patient was seen by the bedside Reason For Visit: ACUTE BLOOD LOSS ANEMIA FROM LACERATION Physical Exam Vital Signs: Temp Pulse Resp BP Pulse Ox 98.5 F 94 16 110/67 100 01/28/19 20:00 01/28/19 20:00 01/28/19 20:00 01/28/19 20:00 01/28/19 20:00 Intake & Output 01/27/19 01/28/19 01/29/19 06:59 06:59 06:59 Intake Total 2186 786 1630 Output Total 4098 791 5224 Balance 686 186 380 Weight 61.2 kg 60.2 kg General appearance: PRESENT: no acute distress Eye exam: PRESENT: PERRLA Respiratory exam: PRESENT: clear to auscultation rona Cardiovascular exam: PRESENT: +S1, +S2 GI/Abdominal exam: PRESENT: soft Neurological exam: PRESENT: alert Results Laboratory Results: 01/27/19 21:57 01/27/19 21:57 01/27/19 01/27/19 21:57 21:57 WBC 6.0 RBC 2.86 L Hgb 8.2 L Hct 24.9 L MCV 87 MCH 28.8 MCHC 33.1 RDW 17.5 H Plt Count 299 Sodium 137.4 Potassium 4.3 Chloride 110 H Carbon Dioxide 19 L Anion Gap 8 BUN 8 Creatinine 0.52 Est GFR ( Amer) > 60 Est GFR (Non-Af Amer) > 60 Glucose 97 Calcium 8.1 L Impressions: Tibia/Fibula X-Ray 01/18/19 00:00 IMPRESSION: NEGATIVE STUDY OF THE RIGHT TIBIA AND FIBULA. NO RADIOGRAPHIC EVIDENCE OF ACUTE INJURY. Chest X-Ray 01/25/19 00:00 IMPRESSION: Prominent asymmetric interstitial markings of the left lung which may be partially attributed to rotational positioning of the patient but have significantly improved since prior radiograph of 11/21/2017. No focal consolidation. Assessment & Plan - Diagnosis (1) Laceration of left leg Qualifiers: Encounter type: subsequent encounter Qualified Code(s): S81.812D - Laceration without foreign body, left lower leg, subsequent encounter Is this a current diagnosis for this admission?: Yes (2) Localized edema Is this a current diagnosis for this admission?: Yes (3) Hypoalbuminemia Is this a current diagnosis for this admission?: Yes (4) Acute posthemorrhagic anemia Is this a current diagnosis for this admission?: Yes (5) Decubitus ulcer of sacral region, stage 4 Is this a current diagnosis for this admission?: Yes (6) Low blood pressure Qualifiers: Hypotension type: other hypotension type Qualified Code(s): I95.89 - Other hypotension Is this a current diagnosis for this admission?: Yes (7) Hypocortisolism Is this a current diagnosis for this admission?: Yes
[2019-01-28] MEDS: AMITRIPTYLINE HCL 50 MG TABLET PO SCH (23:00)
[2019-01-29] MEDS: OXYCODONE HCL IR 5 MG TABLET PO PRN ×5 (02:33→22:19)
[2019-01-29] MEDS: CLONAZEPAM 1 MG TABLET PO PRN ×2 (02:34→13:39)
[2019-01-29] MEDS: GABAPENTIN 300 MG CAPSULE PO SCH ×3 (06:06→22:19)
[2019-01-29] MEDS: PANTOPRAZOLE SODIUM 40 MG TABLET.DR PO SCH (06:06)
[2019-01-29] MEDS: LEVOTHYROXINE SODIUM 0.088 MG TABLET PO SCH (06:06)
[2019-01-29] MEDS: HYDROCODONE/ACETAMINOPHEN 5-325 MG TABLET PO PRN ×2 (06:09→16:41)
[2019-01-29] MEDS: HYDROCORTISONE 10 MG TABLET PO SCH ×2 (08:48→22:18)
[2019-01-29] MEDS: TOPIRAMATE 25 MG TABLET PO SCH ×2 (08:48→18:37)
[2019-01-29] MEDS: ONDANSETRON 4 MG TAB.RAPDIS PO PRN (08:48)
[2019-01-29] MEDS: MELOXICAM 7.5 MG TABLET PO SCH (10:14)
[2019-01-29] MEDS: FLUTICASONE/VILANTEROL 100-25 MCG/DOSE IH SCH (10:14)
[2019-01-29] MEDS: BENZTROPINE MESYLATE 1 MG TABLET PO SCH ×2 (10:14→22:19)
[2019-01-29] MEDS: LURASIDONE HCL 40 MG TABLET PO SCH (10:15)
[2019-01-29] MEDS: MINERAL OIL/PETROLATUM,WHITE OPH OINT 3.5 GM OU SCH ×2 (10:15→18:34)
[2019-01-29] MEDS: POTASSIUM CHLORIDE 10 MEQ CAPSULE.ER PO SCH (10:15)
[2019-01-29] MEDS: ASCORBIC ACID 500 MG TABLET PO SCH (10:15)
[2019-01-29] MEDS: FAMOTIDINE 20 MG TABLET PO SCH ×2 (10:15→18:37)
[2019-01-29] MEDS: MULTIVITAMIN TABLET PO SCH (10:15)
[2019-01-29] MEDS: NYSTATIN TOPICAL POWDER 15 GM TP SCH (10:16)
[2019-01-29] MEDS: COLLAGENASE CLOSTRIDIUM HIST. OINT 30 GM TOP SCH (10:16)
[2019-01-29] MEDS ORDERED: LEVOFLOXACIN 500 MG TABLET PO SCH (12:00)
[2019-01-29] MEDS: LEVOFLOXACIN 500 MG TABLET PO SCH (13:39)
--- NOTE | 2019-01-29 18:47 | PDOC PROGRESS REPORT ---
Subjective Progress Note for:: 01/29/19 Subjective:: Patient was seen by the bedside, she has extensive ulcer on the left leg she also have decubiti ulcer in the sacrum. The ulcer on the left leg will need to be grafted, hopefully she will be discharged back to [facility] this weekend she would need to follow in wound clinic for the decubitus ulcer in the sacrum and also the extensive ulcer in the left leg Reason For Visit: ACUTE BLOOD LOSS ANEMIA FROM LACERATION Physical Exam Vital Signs: Temp Pulse Resp BP Pulse Ox 98.8 F 87 16 110/58 L 98 01/29/19 16:00 01/29/19 16:00 01/29/19 16:00 01/29/19 16:00 01/29/19 16:00 Intake & Output 01/28/19 01/29/19 01/30/19 06:59 06:59 06:59 Intake Total 786 3346 1440 Output Total 600 2050 1250 Balance 186 1296 190 Weight 60.2 kg 60.2 kg General appearance: PRESENT: no acute distress Eye exam: PRESENT: PERRLA Respiratory exam: PRESENT: clear to auscultation rona Cardiovascular exam: PRESENT: +S1, +S2 GI/Abdominal exam: PRESENT: soft Results Laboratory Results: 01/27/19 21:57 01/27/19 21:57 01/25/19 13:50 Clean Catch Midstream Urine Culture - Final Proteus Mirabilis Mrsa (Meth Resis Staph Aureus) Impressions: Tibia/Fibula X-Ray 01/18/19 00:00 IMPRESSION: NEGATIVE STUDY OF THE RIGHT TIBIA AND FIBULA. NO RADIOGRAPHIC EVIDENCE OF ACUTE INJURY. Chest X-Ray 01/25/19 00:00 IMPRESSION: Prominent asymmetric interstitial markings of the left lung which may be partially attributed to rotational positioning of the patient but have significantly improved since prior radiograph of 11/21/2017. No focal consolidation. Assessment & Plan - Diagnosis (1) Laceration of left leg Qualifiers: Encounter type: subsequent encounter Qualified Code(s): S81.812D - Laceration without foreign body, left lower leg, subsequent encounter Is this a current diagnosis for this admission?: Yes (2) Localized edema Is this a current diagnosis for this admission?: Yes (3) Hypoalbuminemia Is this a current diagnosis for this admission?: Yes (4) Acute posthemorrhagic anemia Is this a current diagnosis for this admission?: Yes (5) Decubitus ulcer of sacral region, stage 4 Is this a current diagnosis for this admission?: Yes (6) Low blood pressure Qualifiers: Hypotension type: other hypotension type Qualified Code(s): I95.89 - Other hypotension Is this a current diagnosis for this admission?: Yes (7) Hypocortisolism Is this a current diagnosis for this admission?: Yes - Plan Summary Plan Summary: Continue treatment
[2019-01-29] MEDS: AMITRIPTYLINE HCL 50 MG TABLET PO SCH (22:19)
[2019-01-30] MEDS: GABAPENTIN 300 MG CAPSULE PO SCH ×3 (05:48→22:21)
[2019-01-30] MEDS: PANTOPRAZOLE SODIUM 40 MG TABLET.DR PO SCH (05:48)
[2019-01-30] MEDS: LEVOTHYROXINE SODIUM 0.088 MG TABLET PO SCH (05:48)
[2019-01-30] MEDS: OXYCODONE HCL IR 5 MG TABLET PO PRN ×4 (05:50→22:20)
[2019-01-30] MEDS: ACETAMINOPHEN 325 MG TABLET PO PRN (09:23)
[2019-01-30] MEDS: ASCORBIC ACID 500 MG TABLET PO SCH (09:24)
[2019-01-30] MEDS: FAMOTIDINE 20 MG TABLET PO SCH ×2 (09:24→18:17)
[2019-01-30] MEDS: MULTIVITAMIN TABLET PO SCH (09:24)
[2019-01-30] MEDS: BENZTROPINE MESYLATE 1 MG TABLET PO SCH ×2 (09:24→22:21)
[2019-01-30] MEDS: POTASSIUM CHLORIDE 10 MEQ CAPSULE.ER PO SCH (09:24)
[2019-01-30] MEDS: FLUTICASONE/VILANTEROL 100-25 MCG/DOSE IH SCH (09:24)
[2019-01-30] MEDS: MELOXICAM 7.5 MG TABLET PO SCH (09:25)
[2019-01-30] MEDS: TOPIRAMATE 25 MG TABLET PO SCH ×2 (09:25→18:17)
[2019-01-30] MEDS: LURASIDONE HCL 40 MG TABLET PO SCH (09:26)
[2019-01-30] MEDS: HYDROCORTISONE 10 MG TABLET PO SCH ×2 (09:26→22:22)
[2019-01-30] MEDS: MINERAL OIL/PETROLATUM,WHITE OPH OINT 3.5 GM OU SCH ×2 (09:26→18:13)
[2019-01-30] MEDS: COLLAGENASE CLOSTRIDIUM HIST. OINT 30 GM TOP SCH (09:27)
[2019-01-30] MEDS: LEVOFLOXACIN 500 MG TABLET PO SCH (14:00)
--- NOTE | 2019-01-30 20:47 | PDOC PROGRESS REPORT ---
Subjective Progress Note for:: 01/30/19 Subjective:: Patient was seen by the bedside, I explained to the spouse patient's condition and prognosis and plan of action, the plan is for patient to be discharge back to the long-term at [facility]. She will need skin grafting of the extensive leg ulcer Reason For Visit: ACUTE BLOOD LOSS ANEMIA FROM LACERATION Physical Exam Vital Signs: Temp Pulse Resp BP Pulse Ox 98.6 F 89 17 109/65 96 01/30/19 16:00 01/30/19 19:00 01/30/19 16:00 01/30/19 16:00 01/30/19 16:00 Intake & Output 01/29/19 01/30/19 01/31/19 06:59 06:59 06:59 Intake Total 3346 2038 1460 Output Total 2049 2250 1550 Balance 1296 -212 -90 Weight 60.2 kg 60.2 kg 60.2 kg General appearance: PRESENT: no acute distress Eye exam: PRESENT: PERRLA Respiratory exam: PRESENT: clear to auscultation rona Cardiovascular exam: PRESENT: +S1, +S2 GI/Abdominal exam: PRESENT: soft Neurological exam: PRESENT: alert Results Laboratory Results: 01/27/19 21:57 01/27/19 21:57 01/25/19 13:57 Blood Blood Culture - Final NO GROWTH IN 5 DAYS 01/25/19 14:25 Blood Blood Culture - Final NO GROWTH IN 5 DAYS Impressions: Tibia/Fibula X-Ray 01/18/19 00:00 IMPRESSION: NEGATIVE STUDY OF THE RIGHT TIBIA AND FIBULA. NO RADIOGRAPHIC EVIDENCE OF ACUTE INJURY. Chest X-Ray 01/25/19 00:00 IMPRESSION: Prominent asymmetric interstitial markings of the left lung which may be partially attributed to rotational positioning of the patient but have significantly improved since prior radiograph of 11/21/2017. No focal consolidation. Assessment & Plan - Diagnosis (1) Laceration of left leg Qualifiers: Encounter type: subsequent encounter Qualified Code(s): S81.812D - L aceration without foreign body, left lower leg, subsequent encounter Is this a current diagnosis for this admission?: Yes Plan: Continue treatment (2) Localized edema Is this a current diagnosis for this admission?: Yes (3) Hypoalbuminemia Is this a current diagnosis for this admission?: Yes (4) Acute posthemorrhagic anemia Is this a current diagnosis for this admission?: Yes (5) Decubitus ulcer of sacral region, stage 4 Is this a current diagnosis for this admission?: Yes (6) Low blood pressure Qualifiers: Hypotension type: other hypotension type Qualified Code(s): I95.89 - Other hypotension Is this a current diagnosis for this admission?: Yes (7) Hypocortisolism Is this a current diagnosis for this admission?: Yes
[2019-01-30] MEDS: AMITRIPTYLINE HCL 50 MG TABLET PO SCH (22:21)
[2019-01-31] MEDS: PANTOPRAZOLE SODIUM 40 MG TABLET.DR PO SCH (05:09)
[2019-01-31] MEDS: GABAPENTIN 300 MG CAPSULE PO SCH ×3 (05:09→21:20)
[2019-01-31] MEDS: OXYCODONE HCL IR 5 MG TABLET PO PRN ×5 (05:09→22:54)
[2019-01-31] MEDS: LEVOTHYROXINE SODIUM 0.088 MG TABLET PO SCH (05:09)
[2019-01-31] MEDS: HYDROCORTISONE 10 MG TABLET PO SCH ×2 (07:43→21:20)
[2019-01-31] MEDS: TOPIRAMATE 25 MG TABLET PO SCH ×2 (07:44→17:55)
[2019-01-31] MEDS: BENZTROPINE MESYLATE 1 MG TABLET PO SCH ×2 (09:30→21:20)
[2019-01-31] MEDS: FLUTICASONE/VILANTEROL 100-25 MCG/DOSE IH SCH (09:30)
[2019-01-31] MEDS: POTASSIUM CHLORIDE 10 MEQ CAPSULE.ER PO SCH (09:30)
[2019-01-31] MEDS: MULTIVITAMIN TABLET PO SCH (09:30)
[2019-01-31] MEDS: ASCORBIC ACID 500 MG TABLET PO SCH (09:30)
[2019-01-31] MEDS: FAMOTIDINE 20 MG TABLET PO SCH ×2 (09:30→17:55)
[2019-01-31] MEDS: MELOXICAM 7.5 MG TABLET PO SCH (09:31)
[2019-01-31] MEDS: MINERAL OIL/PETROLATUM,WHITE OPH OINT 3.5 GM OU SCH ×2 (09:31→17:29)
[2019-01-31] MEDS: LURASIDONE HCL 40 MG TABLET PO SCH (09:31)
[2019-01-31] MEDS: COLLAGENASE CLOSTRIDIUM HIST. OINT 30 GM TOP SCH (09:32)
[2019-01-31] MEDS: LEVOFLOXACIN 500 MG TABLET PO SCH (13:50)
--- NOTE | 2019-01-31 17:53 | PDOC PROGRESS REPORT ---
Subjective Progress Note for:: 01/31/19 Subjective:: Patient was seen by the bedside she is out of bed to chair the plan is to transfer back to [facility] on Saturday to continue care there ,she will need skin grafting ,she has stage IV decubitus ulcer in the sacrum that was present on admission Reason For Visit: ACUTE BLOOD LOSS ANEMIA FROM LACERATION Physical Exam Vital Signs: Temp Pulse Resp BP Pulse Ox 98.3 F 115 H 16 111/78 100 01/31/19 16:00 01/31/19 16:00 01/31/19 16:00 01/31/19 16:00 01/31/19 16:00 Intake & Output 01/30/19 01/31/19 02/01/19 06:59 06:59 06:59 Intake Total 2038 2740 Output Total 2250 3350 Balance -212 -610 Weight 60.2 kg 60.2 kg General appearance: PRESENT: no acute distress Eye exam: PRESENT: PERRLA Respiratory exam: PRESENT: clear to auscultation rona Cardiovascular exam: PRESENT: +S1, +S2 GI/Abdominal exam: PRESENT: soft Neurological exam: PRESENT: alert Results Laboratory Results: 01/27/19 21:57 01/27/19 21:57 01/25/19 13:57 Blood Blood Culture - Final NO GROWTH IN 5 DAYS 01/25/19 14:25 Blood Blood Culture - Final NO GROWTH IN 5 DAYS Impressions: Tibia/Fibula X-Ray 01/18/19 00:00 IMPRESSION: NEGATIVE STUDY OF THE RIGHT TIBIA AND FIBULA. NO RADIOGRAPHIC EV IDENCE OF ACUTE INJURY. Chest X-Ray 01/25/19 00:00 IMPRESSION: Prominent asymmetric interstitial markings of the left lung which may be partially attributed to rotational positioning of the patient but have significantly improved since prior radiograph of 11/21/2017. No focal consolidation. Assessment & Plan - Diagnosis (1) Laceration of left leg Qualifiers: Encounter type: subsequent encounter Qualified Code(s): S81.812D - Laceration without foreign body, left lower leg, subsequent encounter Is this a current diagnosis for this admission?: Yes (2) Localized edema Is this a current diagnosis for this admission?: Yes (3) Hypoalbuminemia Is this a current diagnosis for this admission?: Yes (4) Acute posthemorrhagic anemia Is this a current diagnosis for this admission?: Yes (5) Decubitus ulcer of sacral region, stage 4 Is this a current diagnosis for this admission?: Yes (6) Low blood pressure Qualifiers: Hypotension type: other hypotension type Qualified Code(s): I95.89 - Other hypotension Is this a current diagnosis for this admission?: Yes (7) Hypocortisolism Is this a current diagnosis for this admission?: Yes
--- NOTE | 2019-01-31 18:44 | RADIOLOGY REPORT (SQ) ---
EXAM DESCRIPTION: CHEST 2 VIEWS COMPLETED DATE/TIME: 01/31/2019 6:38 pm REASON FOR STUDY: pneumonia COMPARISON: 01/25/2019 EXAM PARAMETERS: NUMBER OF VIEWS: two views TECHNIQUE: Digital Frontal and Lateral radiographic views of the chest acquired. RADIATION DOSE: NA LIMITATIONS: none FINDINGS: LUNGS AND PLEURA: Minimal diffuse bilateral interstitial pulmonary opacity, likely reflect ing chronic interstitial change. There is no focal airspace opacity. MEDIASTINUM AND HILAR STRUCTURES: No masses or contour abnormalities. HEART AND VASCULAR STRUCTURES: Heart normal size. No evidence for failure. BONES: Disc degenerative disease of the thoracic spine. HARDWARE: None in the chest. OTHER: No other significant finding. IMPRESSION: Minimal diffuse bilateral interstitial pulmonary opacity, likely reflecting chronic inte rstitial change. There is no focal airspace opacity. TECHNICAL DOCUMENTATION: JOB ID: [id number] [employer]- All Rights Reserved Reading location - IP/workstation name: [email or web address]
[2019-01-31 18:53] LABS: HEMATOCRIT 27.7 % (36.0-47.0); MEAN CORPUSCULAR HGB CONC 32.4 g/dL (32.0-36.0); MEAN CORPUSCULAR VOLUME 86 fl (80-97); PLATELET COUNT 493 10^3/uL (150-450); RED BLOOD COUNT 3.21 10^6/uL (3.72-5.28); RED CELL DISTRIBUTION WIDTH 16.9 % (11.5-14.0); WHITE BLOOD COUNT 13.5 10^3/uL (4.0-10.5)
[2019-01-31 19:06] LABS: ALANINE AMINOTRANSFERASE 29 U/L (9-52); ALBUMIN 2.8 g/dL (3.5-5.0); ALKALINE PHOSPHATASE 136 U/L (38-126); ANION GAP 10 (5-19); ASPARTATE AMINO TRANSFERASE 20 U/L (14-36); BILIRUBIN,DIRECT 0.1 mg/dL (0.0-0.4); BILIRUBIN,TOTAL 0.1 mg/dL (0.2-1.3); BLOOD UREA NITROGEN 15 mg/dL (7-20); CALCIUM 8.6 mg/dL (8.4-10.2); CARBON DIOXIDE 20 mmol/L (22-30); CHLORIDE 108 mmol/L (98-107); GLUCOSE 70 mg/dL (75-110); POTASSIUM 4.9 mmol/L (3.6-5.0); SODIUM 137.5 mmol/L (137-145); TOTAL PROTEIN 5.7 g/dL (6.3-8.2)
[2019-01-31 19:34] LABS: ABSOLUTE LYMPHOCYTES# (MANUAL) 2.4 10^3/uL (0.5-4.7); ABSOLUTE MONOCYTES # (MANUAL) 0.4 10^3/uL (0.1-1.4); ABSOLUTE NEUTROPHILS# (MANUAL) 10.4 10^3/uL (1.7-8.2); BASOPHILS % (MANUAL) 0 % (0-2); EOSINOPHILS % (MANUAL) 2 % (0-6); LYMPHOCYTES % (MANUAL) 18 % (13-45); MONOCYTES % (MANUAL) 3 % (3-13); NUCLEATED RED BLOOD CELLS 1 /100 WBC (0); SEGMENTED NEUTROPHILS % (MAN) 76 % (42-78); TOTAL CELLS COUNTED 100
[2019-01-31 19:35] LABS: PLATELET COMMENT INCREASED
[2019-01-31 19:37] LABS: ANISOCYTOSIS 1+; HYPOCHROMASIA SLIGHT; POIKILOCYTOSIS 1+; POLYCHROMASIA SLIGHT
[2019-01-31 19:39] LABS: MYELOCYTES % (MANUAL) 1 % (0)
[2019-01-31] MEDS: AMITRIPTYLINE HCL 50 MG TABLET PO SCH (21:20)
[2019-02-01] MEDS: LEVOTHYROXINE SODIUM 0.088 MG TABLET PO SCH (05:41)
[2019-02-01] MEDS: OXYCODONE HCL IR 5 MG TABLET PO PRN ×4 (05:41→20:11)
[2019-02-01] MEDS: GABAPENTIN 300 MG CAPSULE PO SCH ×3 (05:41→22:11)
[2019-02-01] MEDS: PANTOPRAZOLE SODIUM 40 MG TABLET.DR PO SCH (05:42)
[2019-02-01] MEDS: HYDROCORTISONE 10 MG TABLET PO SCH ×2 (08:32→22:11)
[2019-02-01] MEDS: TOPIRAMATE 25 MG TABLET PO SCH ×2 (08:32→17:13)
[2019-02-01] MEDS: ASCORBIC ACID 500 MG TABLET PO SCH (09:53)
[2019-02-01] MEDS: MULTIVITAMIN TABLET PO SCH (09:53)
[2019-02-01] MEDS: FAMOTIDINE 20 MG TABLET PO SCH ×2 (09:53→17:13)
[2019-02-01] MEDS: BENZTROPINE MESYLATE 1 MG TABLET PO SCH ×2 (09:53→22:10)
[2019-02-01] MEDS: MINERAL OIL/PETROLATUM,WHITE OPH OINT 3.5 GM OU SCH ×2 (09:54→17:10)
[2019-02-01] MEDS: FLUTICASONE/VILANTEROL 100-25 MCG/DOSE IH SCH (09:54)
[2019-02-01] MEDS: LURASIDONE HCL 40 MG TABLET PO SCH (09:54)
[2019-02-01] MEDS: POTASSIUM CHLORIDE 10 MEQ CAPSULE.ER PO SCH (09:54)
[2019-02-01] MEDS: MELOXICAM 7.5 MG TABLET PO SCH (09:55)
[2019-02-01] MEDS: COLLAGENASE CLOSTRIDIUM HIST. OINT 30 GM TOP SCH (09:56)
[2019-02-01] MEDS: LEVOFLOXACIN 500 MG TABLET PO SCH (14:22)
--- NOTE | 2019-02-01 16:07 | PDOC DISCHARGE SUMMARY ---
General - Admit/Disc Date/PCP Admission Date/Primary Care Provider: 01/18/19 16:55 JOHN CANNON MD Discharge Date: 02/02/19 - Discharge Diagnosis (1) Laceration of left leg Is this a current diagnosis for this admission?: Yes (2) Localized edema Is this a current diagnosis for this admission?: Yes (3) Hypoalbuminemia Is this a current diagnosis for this admission?: Yes (4) Acute posthemorrhagic anemia Is this a current diagnosis for this admission?: Yes (5) Decubitus ulcer of sacral region, stage 4 Is this a current diagnosis for this admission?: Yes (6) Low blood pressure Is this a current diagnosis for this admission?: Yes (7) Hypocortisolism Is this a current diagnosis for this admission?: Yes - Additional Information Resuscitation Status: Full Code Discharge Diet: Other (Comments) - High protein diet Home Medications: Albuterol Sulfate [Ventolin 0.083% Neb 2.5 mg/3 mL Ampul] 1 vial NEB RTQ6HP PRN 01/21/19 Ascorbic Acid [Vitamin C] 500 mg PO DAILY 01/21/19 Clonazepam [Klonopin] 0.5 mg PO Q8HP PRN 01/21/19 Fluticasone/Vilanterol [Breo Ellipta 100-25 Mcg INH] 1 puff IH DAILY 01/21/19 Insulin Aspart [Novolog Insulin (Aspart) 100 unit/mL] 0 unit SUBCUT .SLD SCALE 01/21/19 Levothyroxine Sodium 88 mcg PO Q6AM 01/21/19 Lurasidone HCl [Latuda] 40 mg PO DAILY 01/21/19 Multivitamin [Multiple Vitamins] 1 each PO DAILY 01/21/19 Nystatin [Mycostatin Topical Powder 15 gm] 1 applic TP BID 01/21/19 Petrolat,Wht/Min Oil/Sod Chl [Refresh P.M. Ointment P-F] 1 drop OU BID 01/21/19 Petrolat,Wht/Min Oil/Sod Chl [Refresh P.m. Ointment P-F] 1 drop OU PRN PRN 01/21/19 Quetiapine Fumarate [Seroquel 25 mg Tablet] 25 mg PO QAM 01/21/19 Quetiapine Fumarate [Seroquel 25 mg Tablet] 50 mg PO QHS 01/21/19 Sertraline HCl [Zoloft 50 mg Tablet] 100 mg PO DAILY 01/21/19 Topiramate [Topamax 25 mg Tablet] 25 mg PO QAM 01/21/19 Topiramate [Topamax 25 mg Tablet] 50 mg PO QHS 01/21/19 Umeclidinium [place] [Incruse Ellipta] 1 puff IH DAILY 01/21/19 Acetaminophen [Tylenol 325 mg Tablet] 650 mg PO Q4HP PRN tablet 02/01/19 Albuterol Sulfate [Proair HFA Inhalation Aerosol 8.5 gm MDI] 2 puff IH Q6HP PRN [id number] 02/01/19 Benztropine Mesylate [Cogentin 1 mg Tablet] 1 mg PO Q12 tablet 02/01/19 Collagenase Clostridium Hist. [Santyl Ointment 30 gm] 1 applic TOP DAILY tube 02/01/19 Fluticasone/Vilanterol [Breo 100-25 Mcg Ellipta 14 Dose/Dpi] 1 inh IH DAILY inhaler 02/01/19 Gabapentin [Neurontin 300 mg Capsule] 300 mg PO Q8 capsule 02/01/19 Hydrocodone/Acetaminophen [Leonard 5-325 mg Tablet] 1 tab PO Q6HP PRN #120 02/01/19 Hydrocortisone [Cortef 10 mg Tablet] 10 mg PO QHS tablet 02/01/19 Hydrocortisone [Cortef 10 mg Tablet] 20 mg PO QAM tablet 02/01/19 Levothyroxine Sodium [Synthroid 0.088 mg Tablet] 0.088 mg PO Q6AM tablet 02/01/19 Naloxegol Oxalate 25 mg PO .QAM 02/01/19 Pantoprazole Sodium [Protonix [address] Tablet] 40 mg PO Q6AM tablet.dr 02/01/19 History of Present Illness History of Present Illness: HIL[place] is a 48 year old female,She was admitted when she presented with spontaneous laceration of the skin of the left lower extremities, she also had stage IV sacral decubiti ulcer.She was seen by the surgeon she underwent debridement of the ulcer of the buttock and also the leg, she also had fever the source was felt to be from the decubitus ulcer. She will need skin grafting of the left leg the loss of skin is very extensive unlikely to heal completely with out a skin graft, she will need to follow with wound clinic, The blood pressure was low, she was taken off all antihypertensive medication for the control of blood pressure Hospital Course Hospital Course: Patient was admitted for the management of spontaneous laceration of the left leg and stage IV sacrum decubitus ulcer. She was seen by the surgeon she underwent extensive debridement of the sacrum without ulcer and also laceration of the left leg Physical Exam Vital Signs: Temp Pulse Resp BP Pulse Ox 98.8 F 93 16 110/66 99 02/01/19 12:34 02/01/19 14:00 02/01/19 12:34 02/01/19 12:34 02/01/19 12:34 Intake & Output 01/31/19 02/01/19 02/02/19 06:59 06:59 06:59 Intake Total 2740 1619 Output Total 3350 900 Balance -610 719 Weight 60.2 kg 60.2 kg General appearance: PRESENT: no acute distress Eye exam: PRESENT: PERRLA Respiratory exam: PRESENT: clear to auscultation rona Cardiovascular exam: PRESENT: +S1, +S2 GI/Abdominal exam: PRESENT: soft Extremities exam: PRESENT: other - There is a laceration of the left leg, stage IV decubitus ulcer of the sacrum Neurological exam: PRESENT: alert, CN II-XII grossly intact Results Laboratory Results: 01/31/19 18:39 01/31/19 18:39 01/31/19 01/31/19 18:39 18:39 WBC 13.5 H RBC 3.21 L Hgb 9.0 L Hct 27.7 L MCV 86 MCH 28.0 MCHC 32.4 RDW 16.9 H Plt Count 493 H Seg Neutrophils % Not Reportable Lymphocytes % Not Reportable Monocytes % Not Reportable Eosinophils % Not Reportable Basophils % Not Reportable Absolute Neutrophils Not Reportable Absolute Lymphocytes Not Reportable Absolute Monocytes Not Reportable Absolute Eosinophils Not Reportable Absolute Basophils Not Reportable Sodium 137.5 Potassium 4.9 Chloride 108 H Carbon Dioxide 20 L Anion Gap 10 BUN 15 Creatinine 0.75 Est GFR ( Amer) > 60 Est GFR (Non-Af Amer) > 60 Glucose 70 L Calcium 8.6 Total Bilirubin 0.1 L AST 20 ALT 29 Alkaline Phosphatase 136 H Total Protein 5.7 L Albumin 2.8 L Impressions: Tibia/Fibula X-Ray 01/18/19 00:00 IMPRESSION: NEGATIVE STUDY OF THE RIGHT TIBIA AND FIBULA. NO RADIOGRAPHIC EVIDENCE OF ACUTE INJURY. Chest X-Ray 01/31/19 00:00 IMPRESSION: Minimal diffuse bilateral interstitial pulmonary opacity, likely reflecting chronic interstitial change. There is no focal airspace opacity. Qualifiers - * PATIENT BEING DISCHARGED WITH ANY OF THE FOLLOWING DIAGNOSIS: No
[2019-02-01] MEDS: AMITRIPTYLINE HCL 50 MG TABLET PO SCH (22:11)
[2019-02-02] MEDS: OXYCODONE HCL IR 5 MG TABLET PO PRN ×3 (02:17→14:20)
[2019-02-02] MEDS: PANTOPRAZOLE SODIUM 40 MG TABLET.DR PO SCH (05:38)
[2019-02-02] MEDS: GABAPENTIN 300 MG CAPSULE PO SCH (05:39)
[2019-02-02] MEDS: LEVOTHYROXINE SODIUM 0.088 MG TABLET PO SCH (05:39)
[2019-02-02] MEDS: HYDROCORTISONE 10 MG TABLET PO SCH (07:50)
[2019-02-02] MEDS: TOPIRAMATE 25 MG TABLET PO SCH (07:50)
[2019-02-02 08:41] VITALS: BP 113/80
[2019-02-02 11:48] LABS: PATH REVIEW PATHOLOGIST REVIEWED
[2019-02-02] MEDS: FLUTICASONE/VILANTEROL 100-25 MCG/DOSE IH SCH (12:03)
[2019-02-02] MEDS: POTASSIUM CHLORIDE 10 MEQ CAPSULE.ER PO SCH (12:03)
[2019-02-02] MEDS: MELOXICAM 7.5 MG TABLET PO SCH (12:03)
[2019-02-02] MEDS: FAMOTIDINE 20 MG TABLET PO SCH (12:03)
[2019-02-02] MEDS: MULTIVITAMIN TABLET PO SCH (12:03)
[2019-02-02] MEDS: ASCORBIC ACID 500 MG TABLET PO SCH (12:03)
[2019-02-02] MEDS: BENZTROPINE MESYLATE 1 MG TABLET PO SCH (12:03)
[2019-02-02] MEDS: LURASIDONE HCL 40 MG TABLET PO SCH (12:04)
[2019-02-02] MEDS: MINERAL OIL/PETROLATUM,WHITE OPH OINT 3.5 GM OU SCH (12:22)
== END 2019-02-02 14:35 | DRG 570 ==
LOC: ER 14:41 → OBSVTOIN 16:55 → UNDOADMOB 16:55 → INTOOBSV 16:55 → EH 16:55 → 4S 19:30
PROVIDERS: ADMIT Internal Medicine; ATTEND Internal Medicine
PROC: 3E0234Z Introduction of Serum, Toxoid and Vaccine into Muscle, Percutaneous Approach (ICD-10-PCS; 2019-01-18)
PROC: 30233N1 Transfusion of Nonautologous Red Blood Cells into Peripheral Vein, Percutaneous Approach (ICD-10-PCS; 2019-01-18)
PROC: 0JCP0ZZ Extirpation of Matter from Left Lower Leg Subcutaneous Tissue and Fascia, Open Approach (ICD-10-PCS; 2019-01-18)
PROC: 0HDLXZZ Extraction of Left Lower Leg Skin, External Approach (ICD-10-PCS; 2019-01-18)
PROC: 0JB70ZZ Excision of Back Subcutaneous Tissue and Fascia, Open Approach (ICD-10-PCS; principal; 2019-01-23)
DX: S81.812A Laceration without foreign body, left lower leg, initial encounter (principal); L89.154 Pressure ulcer of sacral region, stage 4; E46 Unspecified protein-calorie malnutrition; D62 Acute posthemorrhagic anemia; E27.1 Primary adrenocortical insufficiency; C56.9 Malignant neoplasm of unspecified ovary; D64.9 Anemia, unspecified; E88.09 Other disorders of plasma-protein metabolism, not elsewhere classified; I10 Essential (primary) hypertension; I95.89 Other hypotension; E11.8 Type 2 diabetes mellitus with unspecified complications; E03.9 Hypothyroidism, unspecified; K21.9 Gastro-esophageal reflux disease without esophagitis; W26.8XXA Contact with other sharp object(s), not elsewhere classified, initial encounter; Y93.89 Activity, other specified; Y92.89 Other specified places as the place of occurrence of the external cause; Z98.84 Bariatric surgery status; Z79.82 Long term (current) use of aspirin; Z79.899 Other long term (current) drug therapy; Z23 Encounter for immunization; Z99.3 Dependence on wheelchair
CPT/HCPCS: 00400; 36415; 36430; 71045; 71046; 80048; 80053; 81001; 82962; 85025; 85027; 85610; 85730; 86850; 86900; 86901; 86920; 87040; 87070; 87075; 87086; 87088; 87186; 87205; 88304; 90714; 96374; 96375; 99285; J1956; J2001; J2250; J2405; J2704; J3010; J3490; J7030; P9016; S0119

== ENCOUNTER → 2019-03-31 | Outpatient (CLI) | payer MEDICARE, MEDICAID ==
--- NOTE | 2019-03-31 14:04 | RADIOLOGY REPORT (SQ) ---
EXAM DESCRIPTION: SACRUM AND COCCYX COMPLETED DATE/TIME: 03/31/2019 1:48 pm REASON FOR STUDY: PRESSURE ULCER OF SACRAL REGION, STAGE 3 L89.153 PRESSURE ULCER OF SACRAL REGION, STAGE 3 COMPARISON: None. NUMBER OF VIEWS: Three views. TECHNIQUE: AP, lateral, and tilt views of the sacrum and coccyx. LIMITATIONS: None. FINDINGS: MINERALIZATION: Osteopenia. BONES: No acute fracture or dislocation. No worrisome bone lesions. SOFT TISSUES: No soft tissue swelling. No foreign body. OTHER: No other significant finding. IMPRESSION: Osteopenia. No acute findings. No conventional radiographic evidence of osteomyelitis. TECHNICAL DOCUMENTATION: JOB ID: [id number] [employer]- All Rights Reserved Reading location - IP/workstation name: [email or web address]
[2019-03-31 14:05] LABS: ALANINE AMINOTRANSFERASE 27 U/L (9-52); ALBUMIN 2.5 g/dL (3.5-5.0); ALKALINE PHOSPHATASE 242 U/L (38-126); ANION GAP 6 (5-19); ASPARTATE AMINO TRANSFERASE 19 U/L (14-36); BLOOD UREA NITROGEN 8 mg/dL (7-20); C-REACTIVE PROTEIN 5.6 mg/L (<10.0); CALCIUM 8.1 mg/dL (8.4-10.2); CARBON DIOXIDE 22 mmol/L (22-30); CHLORIDE 115 mmol/L (98-107); GLUCOSE 73 mg/dL (75-110); POTASSIUM 3.4 mmol/L (3.6-5.0); TOTAL PROTEIN 5.2 g/dL (6.3-8.2)
[2019-03-31 14:09] LABS: BILIRUBIN,TOTAL < 0.1 mg/dL (0.2-1.3)
[2019-03-31 14:16] LABS: HEMATOCRIT 26.1 % (36.0-47.0); MEAN CORPUSCULAR HEMOGLOBIN 23.7 pg (27.0-33.4); MEAN CORPUSCULAR HGB CONC 29.2 g/dL (32.0-36.0); MEAN CORPUSCULAR VOLUME 81 fl (80-97); PLATELET COUNT 334 10^3/uL (150-450); RED BLOOD COUNT 3.21 10^6/uL (3.72-5.28); RED CELL DISTRIBUTION WIDTH 18.4 % (11.5-14.0); WHITE BLOOD COUNT 5.3 10^3/uL (4.0-10.5)
[2019-03-31 14:22] LABS: ERYTHROCYTE SEDIMENTATION RATE 43 mm/hr (0-20)
[2019-03-31 14:34] LABS: ABSOLUTE LYMPHOCYTES# (MANUAL) 1.4 10^3/uL (0.5-4.7); ABSOLUTE MONOCYTES # (MANUAL) 0.5 10^3/uL (0.1-1.4); ABSOLUTE NEUTROPHILS# (MANUAL) 3.4 10^3/uL (1.7-8.2); BASOPHILS % (MANUAL) 0 % (0-2); EOSINOPHILS % (MANUAL) 0 % (0-6); LYMPHOCYTES % (MANUAL) 26 % (13-45); MONOCYTES % (MANUAL) 10 % (3-13); SEGMENTED NEUTROPHILS % (MAN) 64 % (42-78); TOTAL CELLS COUNTED 100
[2019-03-31 14:35] LABS: ANISOCYTOSIS 2+; OVALOCYTES SLIGHT; PLATELET CLUMPS PRESENT; PLATELET COMMENT ADEQUATE; PLATELET LARGE PRESENT; POIKILOCYTOSIS 1+; SCHISTOCYTES SLIGHT; TEAR DROP CELLS SLIGHT
[2019-03-31 14:52] LABS: HEMOGLOBIN 7.6 g/dL (12.0-15.5)
== END ==
LOC: WC 13:04
PROVIDERS: ATTEND Nurse Practitioner Family
DX: L89.153 Pressure ulcer of sacral region, stage 3 (principal); M85.89 Other specified disorders of bone density and structure, multiple sites
CPT/HCPCS: 36415; 72220; 80053; 85025; 85652; 86140

== ENCOUNTER → 2019-03-31 | Outpatient (CLI) | payer MEDICARE, MEDICAID ==
--- NOTE | 2019-03-31 14:03 | RADIOLOGY REPORT (SQ) ---
EXAM DESCRIPTION: KNEE BILAT AP UPRIGHT COMPLETED DATE/TIME: 03/31/2019 1:47 pm REASON FOR STUDY: PAIN IN LEFT KNEE M25.562 PAIN IN LEFT KNEE COMPARISON: None. NUMBER OF VIEWS: One view TECHNIQUE: AP standing bilateral knees. LIMITATIONS: None. FINDINGS: There is joint space narrowing in the medial compartments bilaterally. There is mild join t space narrowing in the lateral compartments. On the left there is chondrocalcinosis. There are po stsurgical changes in the left tibia with fixation aleksandra in place. There are postsurgical changes in t he mid fibula with focal osteotomy defect. IMPRESSION: Postsurgical changes in the left tibia. Degenerative changes in both knees. There is j oint space narrowing in the medial and lateral compartments. There is chondrocalcinosis in the later al compartment of the left knee. TECHNICAL DOCUMENTATION: JOB ID: [id number] [employer]- All Rights Reserved Reading location - IP/workstation name: [email or web address]
== END ==
LOC: OD 13:08
PROVIDERS: ATTEND Internal Medicine
DX: M25.562 Pain in left knee (principal)
CPT/HCPCS: 73565

== ENCOUNTER → 2019-04-20 | Outpatient (CLI) | payer MEDICARE, MEDICAID ==
[2019-04-20 07:56] LABS: ABSOLUTE EOSINOPHILS # (AUTO) 0.1 10^3/uL (0.0-0.6); ABSOLUTE LYMPHOCYTES (AUTO) 1.5 10^3/uL (0.5-4.7); ABSOLUTE MONOCYTES (AUTO) 0.4 10^3/uL (0.1-1.4); ABSOLUTE NEUT (AUTO) 3.8 10^3/uL (1.7-8.2); BASOPHILS % (AUTO) 0.5 % (0-2); EOSINOPHILS % (AUTO) 2.3 % (0-6); HEMATOCRIT 30.2 % (36.0-47.0); HEMOGLOBIN 9.2 g/dL (12.0-15.5); LYMPHOCYTES % (AUTO) 25.4 % (13-45); MEAN CORPUSCULAR HEMOGLOBIN 25.1 pg (27.0-33.4); MEAN CORPUSCULAR HGB CONC 30.4 g/dL (32.0-36.0); MEAN CORPUSCULAR VOLUME 83 fl (80-97); MONOCYTES % (AUTO) 6.1 % (3-13); PLATELET COUNT 328 10^3/uL (150-450); RED BLOOD COUNT 3.66 10^6/uL (3.72-5.28); RED CELL DISTRIBUTION WIDTH 23.4 % (11.5-14.0); SEGMENTED NEUTROPHILS % (AUTO) 65.7 % (42-78); TOTAL CELLS COUNTED % (AUTO) 100 %; WHITE BLOOD COUNT 5.8 10^3/uL (4.0-10.5)
[2019-04-20 08:18] LABS: ANION GAP 8 (5-19); BLOOD UREA NITROGEN 11 mg/dL (7-20); CALCIUM 7.7 mg/dL (8.4-10.2); CARBON DIOXIDE 30 mmol/L (22-30); CHLORIDE 104 mmol/L (98-107); GLUCOSE 76 mg/dL (75-110); SODIUM 142.3 mmol/L (137-145)
[2019-04-20 08:49] LABS: ERYTHROCYTE SEDIMENTATION RATE 21 mm/hr (0-20)
[2019-04-20 13:11] LABS: C-REACTIVE PROTEIN < 5.0 mg/L (<10.0)
== END ==
LOC: OD 07:06
PROVIDERS: ATTEND Orthopaedic Surgery
DX: M25.562 Pain in left knee (principal)
CPT/HCPCS: 36415; 80048; 85025; 85652; 86140

== ENCOUNTER → 2019-05-27 | Outpatient (CLI) | payer MEDICARE, MEDICAID ==
--- NOTE | 2019-05-27 09:17 | RADIOLOGY REPORT (SQ) ---
EXAM DESCRIPTION: PELVIS AP COMPLETED DATE/TIME: 05/27/2019 7:59 am REASON FOR STUDY: PRESSURE ULCER OF [place]CR[place] REGION, STAGE 3 COMPARISON: 2018 comparison. NUMBER OF VIEWS: Single view pelvis. LIMITATIONS: None. FINDINGS: Osteopenic. Left hip arthroplasty, similar configuration to prior. No overt loosening. No pelvic or hip fracture identified. OTHER: No other significant finding. IMPRESSION: No acute or suspicious abnormality. Left hip replacement intact. Osteopenic. TECHNICAL DOCUMENTATION: JOB ID: [id number] Reading location - IP/workstation name: [email or web address]
--- NOTE | 2019-05-27 09:19 | RADIOLOGY REPORT (SQ) ---
EXAM DESCRIPTION: TIBIA FIBULA LEFT COMPLETED DATE/TIME: 05/27/2019 7:59 am REASON FOR STUDY: NON-PRESSURE CHRONIC ULCER OF LEFT CALF W FAT LAYER EXPOSED COMPARISON: 01/18/2019. NUMBER OF VIEWS: Two views left tibia and fibula. LIMITATIONS: None. FINDINGS: Old posttraumatic and postoperative changes. IM nail in the tibia with well-healed mid ti bial fracture. No new fracture or bone lesion. Osteopenic. OTHER: No other significant finding. IMPRESSION: Chronic posttraumatic/ postoperative changes. No worrisome findings. Osteopenic. TECHNICAL DOCUMENTATION: JOB ID: [id number] Reading location - IP/workstation name: [email or web address]
== END ==
LOC: WC 07:20
PROVIDERS: ATTEND Nurse Practitioner Family
DX: L97.222 Non-pressure chronic ulcer of left calf with fat layer exposed (principal); L89.153 Pressure ulcer of sacral region, stage 3; M85.88 Other specified disorders of bone density and structure, other site
CPT/HCPCS: 72170

== ENCOUNTER 2019-07-03 10:02 | Inpatient (IN) | payer MEDICARE, MEDICAID ==
--- NOTE | 2019-07-03 10:34 | ER Document Report ---
ED Medical Screen (RME) - General Chief Complaint: Low Blood Pressure Stated Complaint: SHORT OF BREATH,CONGESTION Time Seen by Provider: 07/03/19 10:21 Primary Care Provider: HERBERT PORTILLO NP, [employer]GER [Primary Care Provider] - Follow up as needed Notes: 49-year-old female presented to ED for complaint of chest pain shortness of breath cough blood pressure of 89/54. She was at the wound care clinic to be followed up for a open draining wound to the lateral left lower leg. The wound care clinic sent her to the emergency room for the low blood pressure and chest discomfort. She states she has had a cough and congestion and that is why her chest is hurting. She is alert oriented respirations regular and unlabored speaking in full sentences. She does have a cough. She does have a history of COPD. Patient states she does continue to smoke a pack a day. I rechecked the blood pressure in the room and I got 88/54 manually and by the machine. I have greeted and performed a rapid initial assessment of this patient. A comprehensive ED assessment and evaluation of the patient, analysis of test results and completion of medical decision making process will be conducted by an additional ED providers. TRAVEL OUTSIDE OF THE [place] IN LAST 30 DAYS: No - Related Data Allergies/Adverse Reactions: cilastatin [From Primaxin IV] Allergy (Intermediate, Verified 07/03/19 10:13) Facial swelling imipenem [From Primaxin IV] Allergy (Intermediate, Verified 07/03/19 10:13) Facial swelling Penicillins Allergy (Mild, Verified 07/03/19 10:13) Generalized rash Sulfa (Sulfonamide Antibiotics) Allergy (Mild, Verified 07/03/19 10:13) Generalized rash Past Medical History - Social History Chew tobacco use (# tins/day): No Frequency of alcohol use: None Drug Abuse: None - Past Medical History Cardiac Medical History: Reports: Hx Hypercholesterolemia, Hx Hypertension Denies: Hx Atrial Fibrillation, Hx Congestive Heart Failure, Hx Coronary Artery Disease, Hx Heart Attack, Hx Peripheral Vascular Disease, Hx Pulmonary Embolism, Hx Heart Murmur Pulmonary Medical History: Reports: Hx Pneumonia Denies: Hx Asthma, Hx Bronchitis, Hx COPD, Hx Respiratory Failure, Hx Sleep Apnea, Hx Tuberculosis Neurological Medical History: Reports: Hx Cerebrovascular Accident. Denies: Hx Seizures Endocrine Medical History: Reports: Hx Diabetes Mellitus Type 2, Hx Hypothyroidism. Denies: Hx Diabetes Mellitus Type 1, Hx Graves' Disease, Hx Hyperthyroidism Renal/ Medical History: Denies: Hx Ovarian Cysts, Hx Peritoneal Dialysis, Hx Pelvic Inflammatory Disease Malignancy Medical History: Reports: Hx Ovarian Cancer. Denies: Hx Breast Cancer, Hx Cervical Cancer, Hx Leukemia, Hx Lung Cancer GI Medical History: Reports: Hx Gastroesophageal Reflux Disease, Hx Ulcer, Hx Endoscopy. Denies: Hx Cirrhosis, Hx Crohn's Disease, Hx Hepatitis, Hx Hiatal He rnia, Hx Irritable Bowel, Hx Liver Failure, Hx Pancreatitis Musculoskeltal Medical History: Reports Hx Arthritis, Denies Hx Fibromyalgia, Denies Hx Multiple Sclerosis, Denies Hx Muscular Dystrophy, Denies Hx Systemic Lupus Erythematosus Skin Medical History: Denies Hx Eczema, Denies Hx Psoriasis Psychiatric Medical History: Reports: Hx Anxiety, Hx Bipolar Disorder, Hx Depression, Hx Schizophrenia Denies: Hx Dementia, Hx Post Traumatic Stress Disorder Traumatic Medical History: Reports: Hx Fractures - 3 fx, left hip fx 10/2017. Denies: Hx Pneumothorax Infectious Medical History: Denies: Hx Hepatitis, Hx HIV Past Surgical History: Reports: Hx Abdominal Surgery - gastric bypass, reversal, Hx Cholecystectomy, Hx Gastric Bypass Surgery, Hx Hysterectomy, Hx Orthopedic Surgery - LLE, left jaw, total left hip arthroplasty on 09/08/2018.. Denies: Hx Appendectomy, Hx Bowel Surgery, Hx Section, Hx Colostomy, Hx Coronary Artery Bypass Graft, Hx Herniorrhaphy, Hx Mastectomy, Hx Pacemaker, Hx Tonsillectomy, Hx Tubal Ligation - Immunizations Immunizations up to date: Yes Hx Diphtheria, Pertussis, Tetanus Vaccination: Yes History of Influenza Vaccine for 08/2017 - 01/2018 Season: Yes Influenza Administration Date for 08/2017 - 01/2018 Season: 08/11/17 Physical Exam - Vital signs Vitals: Temp Pulse Resp BP Pulse Ox 99.2 F 92 23 H 88/54 L 88 L 07/03/19 10:19 07/03/19 10:19 07/03/19 10:07/03/19 10:07/03/19 10:19 Course - Vital Signs Vital signs: Temp Pulse Resp BP Pulse Ox 99.2 F 92 23 H 88/54 L 88 L 07/03/19 10:19 07/03/19 10:19 07/03/19 10:07/03/19 10:07/03/19 10:19 Doctor's Discharge - Discharge Referrals: HERBERT PORTILLO [employer]NAGER, [employer] MANAGER [Primary Care Provider] - Follow up as needed
--- NOTE | 2019-07-03 11:06 | RADIOLOGY REPORT (SQ) ---
EXAM DESCRIPTION: CHEST 2 VIEWS COMPLETED DATE/TIME: 07/03/2019 10:56 am REASON FOR STUDY: cough congestion short of breath COMPARISON: 01/31/2019 EXAM PARAMETERS: NUMBER OF VIEWS: two views TECHNIQUE: Digital Frontal and Lateral radiographic views of the chest acquired. RADIATION DOSE: NA LIMITATIONS: none FINDINGS: LUNGS AND PLEURA: There is diffuse bilateral interstitial airspace disease. This could re present asymmetric pulmonary edema or pneumonia. Changes are greater on the left than the right. No effusions. MEDIASTINUM AND HILAR STRUCTURES: No masses or contour abnormalities. HEART AND VASCULAR STRUCTURES: Heart size is stable. Mild central vascular prominence. BONES: No acute findings. HARDWARE: None in the chest. OTHER: No other significant finding. IMPRESSION: Diffuse bilateral interstitial airspace disease either asymmetric edema or pneumonia. C hanges are greater on the left than the right. TECHNICAL DOCUMENTATION: JOB ID: [id number] [employer]- All Rights Reserved Reading location - IP/workstation name: [email or web address]
[2019-07-03] MEDS ORDERED: NORMAL SALINE 500 ML IV ONE (11:08)
[2019-07-03] MEDS ORDERED: VANCOMYCIN HCL INJ 1000 MG VIAL IV ONE (11:17)
[2019-07-03] MEDS ORDERED: PIPERACILLIN/TAZOBACTAM 3.375 GM VIAL IV ONE (11:17)
--- NOTE | 2019-07-03 11:18 | ER Document Report ---
ED General - General TRAVEL OUTSIDE OF THE [place] IN LAST 30 DAYS: No <ELISE LI - Last Filed: 07/03/19 13:12> <KATHIA HALE - Last Filed: 07/03/19 14:27> - General Chief Complaint: Low Blood Pressure Stated Complaint: SHORT OF BREATH,CONGESTION Time Seen by Provider: 07/03/19 10:21 - HPI Notes: Patient presents with over a week of cough congestion sputum production. She was at wound care clinic today noticed to be hypotensive so she was sent to the emergency department. She denies any chest pain at this time but does have shortness of breath and a history of COPD. Is not oxygen dependent at home. (ELISE LI) - Related Data Allergies/Adverse Reactions: cilastatin [From Primaxin IV] Allergy (Intermediate, Verified 07/03/19 10:13) Facial swelling imipenem [From Primaxin IV] Allergy (Intermediate, Verified 07/03/19 10:13) Facial swelling Penicillins Allergy (Mild, Verified 07/03/19 10:13) Generalized rash Sulfa (Sulfonamide Antibiotics) Allergy (Mild, Verified 07/03/19 10:13) Generalized rash Past Medical History - Social History Smoking Status: Current Every Day Smoker Chew tobacco use (# tins/day): No Frequency of alcohol use: None Drug Abuse: None Family History: DM, Hypertension Patient has suicidal ideation: No Patient has homicidal ideation: No - Past Medical History Cardiac Medical History: Reports: Hx Hypercholesterolemia, Hx Hypertension Denies: Hx Atrial Fibrillation, Hx Congestive Heart Failure, Hx Coronary Artery Disease, Hx Heart Attack, Hx Peripheral Vascular Disease, Hx Pulmonary Embolism, Hx Heart Murmur Pulmonary Medical History: Reports: Hx Pneumonia Denies: Hx Asthma, Hx Bronchitis, Hx COPD, Hx Respiratory Failure, Hx Sleep Apnea, Hx Tuberculosis Neurological Medical History: Reports: Hx Cerebrovascular Accident. Denies: Hx Seizures Endocrine Medical History: Reports: Hx Diabetes Mellitus Type 2, Hx Hypo thyroidism. Denies: Hx Diabetes Mellitus Type 1, Hx Graves' Disease, Hx Hyperthyroidism Renal/ Medical History: Denies: Hx Ovarian Cysts, Hx Peritoneal Dialysis, Hx Pelvic Inflammatory Disease Malignancy Medical History: Reports: Hx Ovarian Cancer. Denies: Hx Breast Cancer, Hx Cervical Cancer, Hx Leukemia, Hx Lung Cancer GI Medical History: Reports: Hx Gastroesophageal Reflux Disease, Hx Ulcer, Hx Endoscopy. Denies: Hx Cirrhosis, Hx Crohn's Disease, Hx Hepatitis, Hx Hiatal Hernia, Hx Irritable Bowel, Hx Liver Failure, Hx Pancreatitis Musculoskeletal Medical History: Reports Hx Arthritis, Denies Hx Fibromyalgia, Denies Hx Multiple Sclerosis, Denies Hx Muscular Dystrophy, Denies Hx Systemic Lupus Erythematosus Skin Medical History: Denies Hx Eczema, Denies Hx Psoriasis Psychiatric Medical History: Reports: Hx Anxiety, Hx Bipolar Disorder, Hx Depression, Hx Schizophrenia Denies: Hx Dementia, Hx Post Traumatic Stress Disorder Traumatic Medical History: Reports: Hx Fractures - 3 fx, left hip fx 10/2017. Denies: Hx Pneumothorax Infectious Medical History: Denies: Hx Hepatitis, Hx HIV Past Surgical History: Reports: Hx Abdominal Surgery - gastric bypass, reversal, Hx Cholecystectomy, Hx Gastric Bypass Surgery, Hx Hysterectomy, Hx Orthopedic Surgery - LLE, left jaw, total left hip arthroplasty on 09/08/2018.. Denies: Hx Appendectomy, Hx Bowel Surgery, Hx Section, Hx Colostomy, Hx Coronary Artery Bypass Graft, Hx Herniorrhaphy, Hx Mastectomy, Hx Pacemaker, Hx Tonsillectomy, Hx Tubal Ligation - Immunizations Immunizations up to date: Yes Hx Diphtheria, Pertussis, Tetanus Vaccination: Yes <ELISE LI - Last Filed: 07/03/19 13:12> Review of Systems - Review of Systems Constitutional: No symptoms reported EENT: No symptoms reported Cardiovascular: No symptoms reported Respiratory: See HPI Gastrointestinal: No symptoms reported Genitourinary: No symptoms reported Female Genitourinary: No symptoms reported Musculoskeletal: No symptoms reported Skin: No symptoms reported Hematologic/Lymphatic: No symptoms reported Neurological/Psychological: No symptoms reported <ELISE LI - Last Filed: 07/03/19 13:12> Physical Exam - General General appearance: Appears well, Alert - HEENT Head: Normocephalic, Atraumatic - Respiratory Respiratory status: No respiratory distress Chest status: Nontender Breath sounds: Other - Good air movement bilateral lung sainz with crackles in left lower lung base. - Cardiovascular Rhythm: Regular Heart sounds: Normal auscultation Murmur: No - Extremities Calf: Other - Wound dressing on distal left lower extremity with no erythema around the dressing site. <ELISE LI - Last Filed: 07/03/19 13:12> - Vital signs Vitals: Temp Pulse Resp BP Pulse Ox 99.2 F 92 23 H 88/54 L 88 L 07/03/19 10:19 07/03/19 10:19 07/03/19 10:19 07/03/19 10:19 07/03/19 10:19 Course - Laboratory Result Diagrams: 07/03/19 11:29 07/03/19 11:29 <ELISE LI - Last Filed: 07/03/19 13:12> - Laboratory Result Diagrams: 07/03/19 11:29 07/03/19 11:29 <KATHIA HALE - Last Filed: 07/03/19 14:27> - Re-evaluation Re-evalutation: 07/03/19 13:13 She was found to have pneumonia on x-ray. Patient's blood pressure was soft in the 80s over 50s although she was alert oriented with no complaints. Central line with consent applied. Discussed risks the patient who understands and ag nola to rest. Complication for line placement. Findings placed after discussing with admitting physician Dr. cordero is a blood pressure continues to trend downward pressors will be needed. Judicious fluids applied as patient has pneumonia concern for overloading patient causing respiratory distress. Total of 1 L fluid was provided with rate of 125 an hour in the ED was started. (ELISE CHAUDHARI) 07/03/19 14:26 Patient apparently is a patient of Dr. Callaway, therefore I placed a call to him and discussed this patient's case, after discussing with nursing, as the hos pitalist would not admit them because they have a prior physician. He was agreeable to admit the patient states that her blood pressure chronically runs low, he is not too worried about it at this time, it is currently 98/60, with a heart rate of 84 and a pulse ox of 94%, he wished her to be placed in the IMCU for admission for her pneumonia. (KATHIA HALE) - Vital Signs Vital signs: Temp Pulse Resp BP Pulse Ox 99.1 F 92 19 91/61 L 95 07/03/19 12:00 07/03/19 10:19 07/03/19 13:16 07/03/19 13:16 07/03/19 13:16 - Laboratory Laboratory results interpreted by me: 07/03/19 07/03/19 07/03/19 11:29 11:29 11:29 WBC 18.0 H Hgb 11.4 L Hct 35.6 L RDW 15.2 H Lymph % (Auto) 8.5 L Absolute Neuts (auto) 15.6 H Seg Neutrophils % 86.6 H Carbonic Acid 1.04 L ABG pCO2 34.5 L ABG HCO3 18.5 L ABG Total CO2 19.6 L Potassium 3.3 L Chloride 108 H Direct Bilirubin 0.5 H AST 42 H Alkaline Phosphatase 180 H Albumin 3.4 L Lipase 16.1 L Procedures - Central Line Left Internal jugular Time completed: 13:13 Consent obtained: Yes Central line pre-insertion: Sterile PPE donned, Chloraprep applied Central line size (Fr.): 7 Central line lumen type: Triple mL's of anesthesia: 5 Ultrasound guided: Yes Line secured with sutures: Yes Central line post-insertion: Blood return from lumens, Biopatch applied, Sutured, Sterile dressing applied, Position confirmed w/ CXR Number of attempts: 1 Complications: No <ELISE LI - Last Filed: 07/03/19 13:12> Discharge - Discharge Admitting Provider: Solitario (Hospitalist) Unit Admitted: ICU <ELISE LI - Last Filed: 07/03/19 13:12> - Discharge Admitting Provider: [email or web address] Unit Admitted: IMCU <KATHIA HALE C - Last Filed: 07/03/19 14:27> - Discharge Clinical Impression: Pneumonia Qualifiers: Pneumonia type: due to unspecified organism Laterality: unspecified laterality Lung location: unspecified part of lung Qualified Code(s): J18.9 - Pneumonia, unspecified organism Hypertension Qualifiers: Hypertension type: unspecified Qualified Code(s): I10 - Essential (primary) hypertension Sepsis Qualifiers: Sepsis type: sepsis due to unspecified organism Sepsis acute organ dysfunction status: unspecified Qualified Code(s): A41.9 - Sepsis, unspecified organism Disposition: ADMITTED INPATIENT
[2019-07-03 12:02] LABS: ARTERIAL BLOOD BASE EXCESS -6.4 mmol/L; ARTERIAL BLOOD H2CO3 1.04 mmol/L (1.05-1.35); ARTERIAL BLOOD HCO3 18.5 mmol/L (20-24); ARTERIAL BLOOD O2 SATURATION 95.7 % (94-98); ARTERIAL BLOOD PCO2 34.5 mmHg (35-45); ARTERIAL BLOOD PH 7.35 (7.35-7.45); ARTERIAL BLOOD PO2 82.4 mmHg (80-100); ARTERIAL BLOOD TOTAL CO2 19.6 mmol/L (21-25)
[2019-07-03 12:03] LABS: ARTERIAL BLOOD FIO2 3
[2019-07-03 12:04] LABS: ABSOLUTE BASOPHILS # (AUTO) 0.2 10^3/uL (0.0-0.2); ABSOLUTE EOSINOPHILS # (AUTO) 0.1 10^3/uL (0.0-0.6); ABSOLUTE LYMPHOCYTES (AUTO) 1.5 10^3/uL (0.5-4.7); ABSOLUTE MONOCYTES (AUTO) 0.6 10^3/uL (0.1-1.4); ABSOLUTE NEUT (AUTO) 15.6 10^3/uL (1.7-8.2); BASOPHILS % (AUTO) 1.1 % (0-2); EOSINOPHILS % (AUTO) 0.7 % (0-6); HEMATOCRIT 35.6 % (36.0-47.0); HEMOGLOBIN 11.4 g/dL (12.0-15.5); LYMPHOCYTES % (AUTO) 8.5 % (13-45); MEAN CORPUSCULAR HEMOGLOBIN 30.1 pg (27.0-33.4); MEAN CORPUSCULAR HGB CONC 32.1 g/dL (32.0-36.0); MEAN CORPUSCULAR VOLUME 94 fl (80-97); MONOCYTES % (AUTO) 3.1 % (3-13); PLATELET COUNT 208 10^3/uL (150-450); RED CELL DISTRIBUTION WIDTH 15.2 % (11.5-14.0); SEGMENTED NEUTROPHILS % (AUTO) 86.6 % (42-78); TOTAL CELLS COUNTED % (AUTO) 100 %
[2019-07-03 12:19] LABS: ALBUMIN 3.4 g/dL (3.5-5.0); ALKALINE PHOSPHATASE 180 U/L (38-126); ANION GAP 8 (5-19); ASPARTATE AMINO TRANSFERASE 42 U/L (14-36); BILIRUBIN,DIRECT 0.5 mg/dL (0.0-0.4); BILIRUBIN,TOTAL 0.5 mg/dL (0.2-1.3); BLOOD UREA NITROGEN 18 mg/dL (7-20); CALCIUM 8.9 mg/dL (8.4-10.2); CARBON DIOXIDE 22 mmol/L (22-30); CHLORIDE 108 mmol/L (98-107); GLUCOSE 97 mg/dL (75-110); POTASSIUM 3.3 mmol/L (3.6-5.0); TOTAL PROTEIN 6.7 g/dL (6.3-8.2)
--- NOTE | 2019-07-03 12:26 | EKG REPORT ---
SEVERITY:- OTHERWISE NORMAL ECG - SINUS RHYTHM BORDERLINE LEFT AXIS DEVIATION : Confirmed by: Maria Esther Ortega MD 03-Jul-2019 12:25:10
[2019-07-03 12:31] LABS: NT PRO BNP 585 pg/mL (5-900)
[2019-07-03 12:35] LABS: TROPONIN I < 0.012 ng/mL
[2019-07-03] MEDS ORDERED: LIDOCAINE 1% INJ (10 MG/ML) 10 ML MDV INJ ONE (12:47)
[2019-07-03] MEDS ORDERED: NORMAL SALINE 1000 ML 500 ML IV ONE (13:24)
--- NOTE | 2019-07-03 13:38 | RADIOLOGY REPORT (SQ) ---
EXAM DESCRIPTION: CHEST SINGLE VIEW COMPLETED DATE/TIME: 07/03/2019 1:27 pm REASON FOR STUDY: placement COMPARISON: Earlier the same day NUMBER OF VIEWS: One view. TECHNIQUE: Single frontal radiographic view of the chest acquired. LIMITATIONS: None. FINDINGS: LUNGS AND PLEURA: Extensive bilateral alveolar airspace disease remains left greater than right. A left-sided IJ central line has been added. Catheter tip overlies the right atrium. No pne umothorax. MEDIASTINUM AND HILAR STRUCTURES: No masses. Contour normal. HEART AND VASCULAR STRUCTURES: Stable. BONES: No acute findings. HARDWARE: None in the chest. OTHER: No other significant finding. IMPRESSION: Interval placement of a left IJ central line as described. No pneumothorax. Persistent diffuse bilateral alveolar airspace disease left greater than right. TECHNICAL DOCUMENTATION: JOB ID: [id number] [employer]- All Rights Reserved Reading location - IP/workstation name: [email or web address]
[2019-07-03] MEDS: NORMAL SALINE 1000 ML 1,000 ML IV PRN ×2 (13:45→20:46)
[2019-07-03 16:07] LABS: APPEARANCE,URINE CLEAR; BILIRUBIN,URINE NEGATIVE (NEGATIVE); COLOR,URINE YELLOW; GLUCOSE, URINE NEGATIVE (NEGATIVE); KETONES,URINE NEGATIVE (NEGATIVE); LEUKOCYTE ESTERASE,URINE NEGATIVE (NEGATIVE); NITRITE,URINE NEGATIVE (NEGATIVE); PROTEIN,URINE NEGATIVE (NEGATIVE); UROBILINOGEN,URINE NEGATIVE mg/dL (<2.0)
[2019-07-03] MEDS ORDERED: VANCOMYCIN HCL 0 MG in DEXTROSE 5%-WATER 250 ML IV NR (17:00)
[2019-07-03] MEDS ORDERED: ACETAMINOPHEN 325 MG TABLET PO ONE (18:10)
[2019-07-03 18:20] LABS: ABSOLUTE EOSINOPHILS # (AUTO) 0.2 10^3/uL (0.0-0.6); ABSOLUTE LYMPHOCYTES (AUTO) 1.2 10^3/uL (0.5-4.7); ABSOLUTE MONOCYTES (AUTO) 0.4 10^3/uL (0.1-1.4); ABSOLUTE NEUT (AUTO) 12.5 10^3/uL (1.7-8.2); BASOPHILS % (AUTO) 0.2 % (0-2); EOSINOPHILS % (AUTO) 1.1 % (0-6); HEMATOCRIT 33.2 % (36.0-47.0); HEMOGLOBIN 10.5 g/dL (12.0-15.5); LYMPHOCYTES % (AUTO) 8.4 % (13-45); MEAN CORPUSCULAR HEMOGLOBIN 29.5 pg (27.0-33.4); MEAN CORPUSCULAR HGB CONC 31.6 g/dL (32.0-36.0); MEAN CORPUSCULAR VOLUME 93 fl (80-97); PLATELET COUNT 192 10^3/uL (150-450); RED BLOOD COUNT 3.56 10^6/uL (3.72-5.28); RED CELL DISTRIBUTION WIDTH 14.9 % (11.5-14.0); SEGMENTED NEUTROPHILS % (AUTO) 87.3 % (42-78); TOTAL CELLS COUNTED % (AUTO) 100 %; WHITE BLOOD COUNT 14.3 10^3/uL (4.0-10.5)
[2019-07-03 18:34] LABS: INTERNATIONAL RATION (INR) 1.21; PROTHROMBIN TIME 15.3 SEC (11.4-15.4)
[2019-07-03 18:43] LABS: ALBUMIN 2.7 g/dL (3.5-5.0); ALKALINE PHOSPHATASE 176 U/L (38-126); ANION GAP 7 (5-19); ASPARTATE AMINO TRANSFERASE 31 U/L (14-36); BILIRUBIN,DIRECT 0.2 mg/dL (0.0-0.4); BILIRUBIN,TOTAL 0.2 mg/dL (0.2-1.3); BLOOD UREA NITROGEN 11 mg/dL (7-20); CALCIUM 8.2 mg/dL (8.4-10.2); CARBON DIOXIDE 20 mmol/L (22-30); CHLORIDE 112 mmol/L (98-107); GLUCOSE 105 mg/dL (75-110); POTASSIUM 3.1 mmol/L (3.6-5.0)
--- NOTE | 2019-07-03 18:43 | PDOC H&P ---
History of Present Illness Admission Date/PCP: 07/03/19 13:29 JOHN CANNON MD History of Present Illness: [place] is a 49 year old female, she was sent to the emergency room from wound clinic for evaluation of low blood pressure and chest pain. Patient is well-known to me she has a history of underlying COPD, chronic leg ulcer that is managed in the wound clinic, she continues to smoke cigarettes about a pack a day she has chronic hypotension, she was previously diagnosed with adrenal insufficiency, when she arrived in the emergency room the blood pressure recorded was 88/54, she was also found to be febrile, temperature recorded 99.2, there was associated leukocytosis chest x-ray showed diffuse bilateral infiltrate. The arterial blood gas on FiO2 3 L, pH 7.35, PCO2 34.5, PO2 82.4, bicarbonate 18.5 She complain of a week history of cough, productive of sputum Past Medical History Cardiac Medical History: Reports: Hyperlipidema, Hypertension Pulmonary Medical History: Reports: Pneumonia Endocrine Medical History: Reports: Hypothyroidism Malignancy Medical History: Reports: Ovarian Cancer GI Medical History: Reports: Gastroesophageal Reflux Disease Musculoskeltal Medical History: Reports: Arthritis Psychiatric Medical History: Reports: Bipolar Disorder, Depression Hematology: Reports: Anemia Infectious Medical History: Denies: HIV Past Surgical History Past Surgical History: Reports: Cholecystectomy, Gastric Bypass Surgery, Hysterectomy, Orthopedic Surgery - LLE, left jaw, total left hip arthroplasty on 09/08/2018. Social History Smoking Status: Current Every Day Smoker Frequency of Alcohol Use: None Hx Recreational Drug Use: No Drugs: None Hx Prescription Drug Abuse: No - Advance Directive Resuscitation Status: Full Code Family History Family History: DM, Hypertension Parental Family History Reviewed: Yes Children Family History Reviewed: Yes Sibling(s) Family History Reviewed.: Yes Medication/Allergy Home Medications: Albuterol Sulfate [Ventolin 0.042% Neb 1.25 mg/3 mL Ampul] 0.625 mg NEB RTQ6 07/03/19 Alprazolam [Xanax 0.25 mg Tablet] 0.25 mg PO Q8 07/03/19 Benztropine Mesylate [Cogentin 1 mg Tablet] 1 mg PO DAILY 07/03/19 Carvedilol [Coreg 3.125 mg Tablet] 3.125 mg PO DAILY 07/03/19 Esomeprazole Mag Trihydrate [Nexium] 40 mg PO DAILY 07/03/19 Eszopiclone [Lunesta] 3 mg PO QHS 07/03/19 Ferrous Sulfate [Feosol 325 mg Tablet] 325 mg PO BID 07/03/19 Fludrocortisone Acetate [Florinef 0.1 mg Tablet] 0.1 mg PO DAILY 07/03/19 Fluticasone/Umeclidin/Vilanter [Trelegy 100-62.5-25 Mcg Ellipta 14 Dose/Dpi] 1 inh IH DAILY 07/03/19 Furosemide [Lasix 40 mg Tablet] 40 mg PO BID 07/03/19 Gabapentin [Neurontin 300 mg Capsule] 300 mg PO Q8 07/03/19 Hydromorphone HCl [Dilaudid] 4 mg PO Q6 07/03/19 Ibuprofen [Motrin 800 mg Tablet] 800 mg PO TID 07/03/19 Levothyroxine Sodium [Synthroid 0.088 mg Tablet] 0.088 mg PO Q6AM 07/03/19 Lisinopril [Prinivil 5 mg Tablet] 2.5 mg PO DAILY 07/03/19 Lurasidone HCl [Latuda 40 mg Tablet] 40 mg PO DAILY 07/03/19 Naloxegol Oxalate [Movantik 25 mg Tablet] 25 mg PO DAILY 07/03/19 Ondansetron [Zofran Odt 4 mg Tablet] 16 mg PO Q12 07/03/19 Potassium Chloride [Klor-Con 10 Meq Capsule ER] 20 meq PO DAILY 07/03/19 Sertraline HCl [Zoloft 50 mg Tablet] 100 mg PO DAILY 07/03/19 Topiramate [Topamax 25 mg Tablet] 25 mg PO DAILY 07/03/19 Topiramate [Topamax 25 mg Tablet] 50 mg PO QHS 07/03/19 Allergies/Adverse Reactions: cilastatin [From Primaxin IV] Allergy (Intermediate, Verified 07/03/19 10:13) Facial swelling imipenem [From Primaxin IV] Allergy (Intermediate, Verified 07/03/19 10:13) Facial swelling Penicillins Allergy (Mild, Verified 07/03/19 10:13) Generalized rash Sulfa (Sulfonamide Antibiotics) Allergy (Mild, Verified 07/03/19 10:13) Generalized rash Review of Systems Eyes: ABSENT: visual disturbances Ears: ABSENT: hearing changes Cardiovascular: ABSENT: chest pain, dyspnea on exertion, edema, orthropnea, palpitations Respiratory: PRESENT: cough Gastrointestinal: ABSENT: abdominal pain, constipation, diarrhea, hematemesis, hematochezia, nausea, vomiting Genitourinary: ABSENT: dysuria, hematuria Musculoskeletal: ABSENT: joint swelling Integumentary: ABSENT: rash, wounds Neurological: ABSENT: abnormal gait, abnormal speech, confusion, dizziness, focal weakness, syncope Psychiatric: ABSENT: anxiety, depression, homidical ideation, suicidal ideation Endocrine: ABSENT: cold intolerance, heat intolerance, menstrual abnormalities, polydipsia, polyuria Hematologic/Lymphatic: ABSENT: easy bleeding, easy bruising, lymphadenopathy Physical Exam Vital Signs: Temp Pulse Resp BP Pulse Ox 101.0 F H 92 37 H 123/89 H 94 07/03/19 18:08 07/03/19 10:19 07/03/19 17:45 07/03/19 17:45 07/03/19 17:45 Intake & Output 07/02/19 07/03/19 07/04/19 06:59 06:59 06:59 Intake Total 1000 Balance 1000 Weight 58.967 kg General appearance: PRESENT: mild distress Head exam: PRESENT: atraumatic, normocephalic Eye exam: PRESENT: PERRLA Ear exam: PRESENT: normal external ear exam Mouth exam: PRESENT: moist, tongue midline Neck exam: PRESENT: full ROM Respiratory exam: PRESENT: rales Cardiovascular exam: PRESENT: RRR, +S1, +S2 Vascular exam: PRESENT: normal capillary refill GI/Abdominal exam: PRESENT: normal bowel sounds, soft Rectal exam: PRESENT: deferred Extremities exam: PRESENT: other - The left leg is bandage Neurological exam: PRESENT: alert, awake, oriented to person, oriented to place, oriented to time, oriented to situation, CN II-XII grossly intact Psychiatric exam: PRESENT: appropriate affect, normal mood Skin exam: PRESENT: dry, intact, warm Results Laboratory Results: 07/03/19 18:04 07/03/19 07/03/19 07/03/19 11:29 11:29 11:29 WBC 18.0 H RBC 3.80 Hgb 11.4 L Hct 35.6 L MCV 94 MCH 30.1 MCHC 32.1 RDW 15.2 H Plt Count 208 Seg Neutrophils % 86.6 H Carbonic Acid 1.04 L HCO3/H2CO3 Ratio 17:1 ABG pH 7.35 ABG pCO2 34.5 L ABG pO2 82.4 ABG HCO3 18.5 L ABG O2 Saturation 95.7 ABG Base Excess -6.4 FiO2 3 Sodium 137.8 Potassium 3.3 L Chloride 108 H Carbon Dioxide 22 Anion Gap 8 BUN 18 Creatinine 0.66 Est GFR ( Amer) > 60 Glucose 97 Lactic Acid Calcium 8.9 Magnesium 2.1 Total Bilirubin 0.5 AST 42 H Alkaline Phosphatase 180 H Total Protein 6.7 Albumin 3.4 L Lipase 16.1 L Urine Color Urine Appearance Urine pH Ur Specific [place] Urine Protein Urine Glucose (UA) Urine Ketones Urine Blood Urine Nitrite Ur Leukocyte Esterase Urine WBC (Auto) 07/03/19 07/03/19 07/03/19 11:29 14:51 18:04 WBC 14.3 H RBC 3.56 L Hgb 10.5 L Hct 33.2 L MCV 93 MCH 29.5 MCHC 31.6 L RDW 14.9 H Plt Count 192 Seg Neutrophils % 87.3 H Carbonic Acid HCO3/H2CO3 Ratio ABG pH ABG pCO2 ABG pO2 ABG HCO3 ABG O2 Saturation ABG Base Excess FiO2 Sodium Potassium Chloride Carbon Dioxide Anion Gap BUN Creatinine Est GFR ( Amer) Glucose Lactic Acid 1.0 Calcium Magnesium Total Bilirubin AST Alkaline Phosphatase Total Protein Albumin Lipase Urine Color YELLOW Urine Appearance CLEAR Urine pH 5.0 Ur Specific [place] 1.010 Urine Protein NEGATIVE Urine Glucose (UA) NEGATIVE Urine Ketones NEGATIVE Urine Blood NEGATIVE Urine Nitrite NEGATIVE Ur Leukocyte Esterase NEGATIVE Urine WBC (Auto) 0 07/03/19 18:04 WBC RBC Hgb Hct MCV MCH MCHC RDW Plt Count Seg Neutrophils % Carbonic Acid HCO3/H2CO3 Ratio ABG pH ABG pCO2 ABG pO2 ABG HCO3 ABG O2 Saturation ABG Base Excess FiO2 Sodium Potassium Chloride Carbon Dioxide Anion Gap BUN Creatinine Est GFR ( Amer) Glucose Lactic Acid 0.6 L Calcium Magnesium Total Bilirubin AST Alkaline Phosphatase Total Protein Albumin Lipase Urine Color Urine Appearance Urine pH Ur Specific [place] Urine Protein Urine Glucose (UA) Urine Ketones Urine Blood Urine Nitrite Ur Leukocyte Esterase Urine WBC (Auto) 07/03/19 11:29 Troponin I < 0.012 NT-Pro-B Natriuret Pep 585 Impressions: Chest X-Ray 07/03/19 13:23 IMPRESSION: Interval placement of a left IJ central line as described. No pneumothorax. Persistent diffuse bilateral alveolar airspace disease left greater than right. Assessment & Plan - Diagnosis (1) Acute hypoxemic respiratory failure Is this a current diagnosis for this admission?: Yes Plan: She has acute hypoxemic respiratory failure, presently not requiring noninvasive positive pressure ventilation, continue oxygen via nasal cannula (2) Bilateral pneumonia Qualifiers: Pneumonia type: due to unspecified organism Lung location: unspecified part of lung Qualified Code(s): J18.9 - Pneumonia, unspecified organism Is this a current diagnosis for this admission?: Yes Plan: She has bilateral pneumonia, she had this previously, she has allergy to beta- lactam, she will empirically be treated with intravenous vancomycin, aztreonam, clindamycin to cover anaerobes. This combination of antibiotic will cover gram- negative, gram-positive and also anaerobes until we have specific culture resul ts. (3) Hypotension Qualifiers: Hypotension type: other hypotension type Qualified Code(s): I95.89 - Other hypotension Is this a current diagnosis for this admission?: Yes Plan: She has chronic hypotension, we will judiciously use fluid therapy, maintenance therapy on Ringer's lactate, check cortisol level to determine need for hydrocortisone therapy
[2019-07-03] MEDS: AZTREONAM 1 GM in DEXTROSE 5%-WATER 50 ML IV SCH (20:45)
[2019-07-03] MEDS: CLINDAMYCIN 600 MG/D5W RTU 600 MG/50 ML RTUPB IV SCH (21:17)
[2019-07-03] MEDS: VANCOMYCIN HCL 750 MG in DEXTROSE 5%-WATER 250 ML IV SCH (21:32)
[2019-07-04] MEDS: AZTREONAM 1 GM in DEXTROSE 5%-WATER 50 ML IV SCH ×3 (06:35→23:37)
[2019-07-04] MEDS: CLINDAMYCIN 600 MG/D5W RTU 600 MG/50 ML RTUPB IV SCH ×3 (06:38→21:44)
[2019-07-04] MEDS: VANCOMYCIN HCL 750 MG in DEXTROSE 5%-WATER 250 ML IV SCH (11:41)
[2019-07-04] MEDS ORDERED: FUROSEMIDE INJ/PF 40 MG/4 ML SDV IV ONE (13:42)
[2019-07-04] MEDS: RINGERS SOLUTION,LACTATED 1,000 ML IV PRN (14:11)
[2019-07-04] MEDS ORDERED: (PENDING PHARMACY ID) (Naloxegol Oxalate 25 MG) PO SCH (14:15)
[2019-07-04] MEDS ORDERED: (PENDING PHARMACY ID) (Esomeprazole Mag Trihydrate [Nexium] 40 MG) PO SCH (14:15)
--- NOTE | 2019-07-04 14:27 | PDOC PROGRESS REPORT ---
Subjective Progress Note for:: 07/04/19 Subjective:: Patient seen by the bedside, on review of her medication, she is on fludrocortisone a mineralocorticoid that causes potassium loss, the serum potassium was 3.1, she denies taking the medication but it was listed on the reconciliation medication list. The wound on the left leg was examined yesterday it was wrapped she goes to the wound clinic for management the wound is extensive but it is granulating suggesting that it is healing, she was admitted yesterday for severe bilateral pneumonia, she is still not requiring a noninvasive positive pressure ventilation BiPAP, she will continue present line of management, she is responding very well to the triple antibiotic, clindamycin, aztreonam, vancomycin. Reason For Visit: BILATERAL PNEUMONIA,SEPSIS Physical Exam Vital Signs: Temp Pulse Resp BP Pulse Ox 99.3 F 75 18 112/70 94 07/04/19 12:22 07/04/19 12:22 07/04/19 12:22 07/04/19 12:22 07/04/19 12:22 Intake & Output 07/03/19 07/04/19 07/05/19 06:59 06:59 06:59 Intake Total 3437 300 Balance 3437 300 Weight 61.1 kg General appearance: PRESENT: no acute distress Eye exam: PRESENT: PERRLA Respiratory exam: PRESENT: rhonchi Cardiovascular exam: PRESENT: +S1, +S2 GI/Abdominal exam: PRESENT: soft Neurological exam: PRESENT: alert Skin exam: PRESENT: other - Extensive ulceration of the left leg with areas of denudation Results Laboratory Results: 07/03/19 18:04 07/03/19 18:04 07/03/19 07/03/19 07/03/19 14:51 18:04 18:04 WBC 14.3 H RBC 3.56 L Hgb 10.5 L Hct 33.2 L MCV 93 MCH 29.5 MCHC 31.6 L RDW 14.9 H Plt Count 192 Seg Neutrophils % 87.3 H Sodium 139.0 Potassium 3.1 L Chloride 112 H Carbon Dioxide 20 L Anion Gap 7 BUN 11 Creatinine 0.48 L Est GFR ( Amer) > 60 Glucose 105 Lactic Acid Calcium 8.2 L Total Bilirubin 0.2 AST 31 Alkaline Phosphatase 176 H Total Protein 5.0 L Albumin 2.7 L Urine Color YELLOW Urine Appearance CLEAR Urine pH 5.0 Ur Specific [place] 1.010 Urine Protein NEGATIVE Urine Glucose (UA) NEGATIVE Urine Ketones NEGATIVE Urine Blood NEGATIVE Urine Nitrite NEGATIVE Ur Leukocyte Esterase NEGATIVE Urine WBC (Auto) 0 07/03/19 18:04 WBC RBC Hgb Hct MCV MCH MCHC RDW Plt Count Seg Neutrophils % Sodium Potassium Chloride Carbon Dioxide Anion Gap BUN Creatinine Est GFR ( Amer) Glucose Lactic Acid 0.6 L Calcium Total Bilirubin AST Alkaline Phosphatase Total Protein Albumin Urine Color Urine Appearance Urine pH Ur Specific [place] Urine Protein Urine Glucose (UA) Urine Ketones Urine Blood Urine Nitrite Ur Leukocyte Esterase Urine WBC (Auto) 07/03/19 11:29 Troponin I < 0.012 NT-Pro-B Natriuret Pep 585 Impressions: Chest X-Ray 07/03/19 13:23 IMPRESSION: Interval placement of a left IJ central line as described. No pneumothorax. Persistent diffuse bilateral alveolar airspace disease left greater than right. Assessment & Plan - Diagnosis (1) Acute hypoxemic respiratory failure Is this a current diagnosis for this admission?: Yes Plan: Continue oxygen therapy via nasal cannula (2) Bilateral pneumonia Qualifiers: Pneumonia type: due to unspecified organism Lung location: unspecified part of lung Qualified Code(s): J18.9 - Pneumonia, unspecified organism Is this a current diagnosis for this admission?: Yes Plan: Continue IV antibiotic, including clindamycin, aztreonam, vancomycin (3) Hypotension Qualifiers: Hypotension type: other hypotension type Qualified Code(s): I95.89 - Other hypotension Is this a current diagnosis for this admission?: Yes Plan: Start midodrine 10 mg every 8 hours (4) Chronic ulcer of left leg Qualifiers: Non-pressure ulcer stage: with fat layer exposed Qualified Code(s): L97.922 - Non-pressure chronic ulcer of unspecified part of left lower leg with fat layer exposed Is this a current diagnosis for this admission?: Yes Plan: Continue local wound dressing
[2019-07-04 14:34] LABS: ABSOLUTE BASOPHILS # (AUTO) 0.1 10^3/uL (0.0-0.2); ABSOLUTE EOSINOPHILS # (AUTO) 0.1 10^3/uL (0.0-0.6); ABSOLUTE MONOCYTES (AUTO) 0.5 10^3/uL (0.1-1.4); ABSOLUTE NEUT (AUTO) 9.3 10^3/uL (1.7-8.2); BASOPHILS % (AUTO) 0.5 % (0-2); EOSINOPHILS % (AUTO) 0.5 % (0-6); HEMATOCRIT 29.3 % (36.0-47.0); HEMOGLOBIN 9.6 g/dL (12.0-15.5); LYMPHOCYTES % (AUTO) 9.3 % (13-45); MEAN CORPUSCULAR HEMOGLOBIN 30.4 pg (27.0-33.4); MEAN CORPUSCULAR HGB CONC 32.7 g/dL (32.0-36.0); MEAN CORPUSCULAR VOLUME 93 fl (80-97); MONOCYTES % (AUTO) 4.3 % (3-13); PLATELET COUNT 165 10^3/uL (150-450); RED BLOOD COUNT 3.15 10^6/uL (3.72-5.28); RED CELL DISTRIBUTION WIDTH 14.5 % (11.5-14.0); SEGMENTED NEUTROPHILS % (AUTO) 85.4 % (42-78); TOTAL CELLS COUNTED % (AUTO) 100 %; WHITE BLOOD COUNT 10.9 10^3/uL (4.0-10.5)
[2019-07-04 15:01] LABS: ALBUMIN 2.4 g/dL (3.5-5.0); ALKALINE PHOSPHATASE 156 U/L (38-126); ANION GAP 5 (5-19); ASPARTATE AMINO TRANSFERASE 22 U/L (14-36); BLOOD UREA NITROGEN 6 mg/dL (7-20); CALCIUM 7.8 mg/dL (8.4-10.2); CARBON DIOXIDE 20 mmol/L (22-30); CHLORIDE 114 mmol/L (98-107); GLUCOSE 100 mg/dL (75-110); TOTAL PROTEIN 4.5 g/dL (6.3-8.2)
[2019-07-04 15:11] LABS: BILIRUBIN,TOTAL < 0.1 mg/dL (0.2-1.3)
[2019-07-04 15:35] LABS: POTASSIUM 2.9 mmol/L (3.6-5.0)
[2019-07-04] MEDS: SERTRALINE HCL 50 MG TABLET PO SCH (15:55)
[2019-07-04] MEDS: ALPRAZOLAM 0.25 MG TABLET PO SCH ×2 (15:55→21:46)
[2019-07-04] MEDS: POTASSIUM CHLORIDE 10 MEQ CAPSULE.ER PO SCH (15:55)
[2019-07-04] MEDS: GABAPENTIN 300 MG CAPSULE PO SCH ×2 (15:55→21:45)
[2019-07-04] MEDS: HYDROMORPHONE HCL 2 MG TABLET PO SCH ×2 (15:55→20:01)
[2019-07-04] MEDS: BENZTROPINE MESYLATE 1 MG TABLET PO SCH (15:55)
[2019-07-04] MEDS: MIDODRINE HCL 5 MG TABLET PO SCH (15:55)
[2019-07-04] MEDS: PANTOPRAZOLE SODIUM 40 MG TABLET.DR PO SCH (15:55)
[2019-07-04] MEDS: LEVOTHYROXINE SODIUM 0.088 MG TABLET PO SCH (15:55)
[2019-07-04] MEDS: ALBUTEROL SULFATE 0.042% NEB (1.25 MG/3 ML) AMPUL NEB SCH ×2 (16:27→20:07)
[2019-07-04] MEDS: TOPIRAMATE 25 MG TABLET PO SCH ×3 (17:34→22:06)
[2019-07-04] MEDS: FERROUS SULFATE 325 MG TABLET PO SCH (17:39)
[2019-07-04] MEDS: POTASSI CL 20 MEQ/50 ML RIDER 20 MEQ/50 ML RTUPB IV SCH ×2 (17:39→20:02)
[2019-07-04] MEDS ORDERED: TOPIRAMATE 25 MG TABLET ONE ×2 (18:07→22:02)
[2019-07-04] MEDS: ONDANSETRON 4 MG TAB.RAPDIS PO PRN (21:46)
[2019-07-04] MEDS: ZOLPIDEM TARTRATE 5 MG TABLET PO SCH (21:46)
[2019-07-04] MEDS: ACETAMINOPHEN 325 MG TABLET PO PRN (21:47)
[2019-07-04] MEDS ORDERED: VANCOMYCIN HCL INJ 1000 MG VIAL ONE (22:01)
[2019-07-04] MEDS ORDERED: AZTREONAM INJ 1 GM VIAL ONE (22:01)
[2019-07-04] MEDS ORDERED: VANCOMYCIN HCL INJ 500 MG VIAL ONE (23:48)
[2019-07-05] MEDS: VANCOMYCIN HCL 750 MG in DEXTROSE 5%-WATER 250 ML IV SCH ×3 (00:05→17:21)
[2019-07-05] MEDS: RINGERS SOLUTION,LACTATED 1,000 ML IV PRN ×3 (01:55→22:37)
[2019-07-05] MEDS: ALBUTEROL SULFATE 0.042% NEB (1.25 MG/3 ML) AMPUL NEB SCH ×4 (02:36→20:22)
[2019-07-05] MEDS: HYDROMORPHONE HCL 2 MG TABLET PO SCH ×4 (03:53→20:16)
[2019-07-05 04:39] LABS: ABSOLUTE EOSINOPHILS # (AUTO) 0.2 10^3/uL (0.0-0.6); ABSOLUTE MONOCYTES (AUTO) 0.6 10^3/uL (0.1-1.4); ABSOLUTE NEUT (AUTO) 9.8 10^3/uL (1.7-8.2); BASOPHILS % (AUTO) 0.3 % (0-2); EOSINOPHILS % (AUTO) 1.4 % (0-6); HEMOGLOBIN 8.7 g/dL (12.0-15.5); LYMPHOCYTES % (AUTO) 8.7 % (13-45); MEAN CORPUSCULAR HGB CONC 32.3 g/dL (32.0-36.0); MEAN CORPUSCULAR VOLUME 93 fl (80-97); MONOCYTES % (AUTO) 5.2 % (3-13); PLATELET COUNT 154 10^3/uL (150-450); RED CELL DISTRIBUTION WIDTH 14.6 % (11.5-14.0); SEGMENTED NEUTROPHILS % (AUTO) 84.4 % (42-78); TOTAL CELLS COUNTED % (AUTO) 100 %; WHITE BLOOD COUNT 11.7 10^3/uL (4.0-10.5)
[2019-07-05 05:03] LABS: VANCOMYCIN,TROUGH 10.9 ug/mL (5.0-20.0)
[2019-07-05] MEDS ORDERED: AZTREONAM INJ 1 GM VIAL ONE (05:53)
[2019-07-05] MEDS: CLINDAMYCIN 600 MG/D5W RTU 600 MG/50 ML RTUPB IV SCH ×3 (06:05→22:34)
[2019-07-05] MEDS: AZTREONAM 1 GM in DEXTROSE 5%-WATER 50 ML IV SCH ×3 (06:05→22:33)
[2019-07-05] MEDS: LEVOTHYROXINE SODIUM 0.088 MG TABLET PO SCH (06:06)
[2019-07-05] MEDS: MIDODRINE HCL 5 MG TABLET PO SCH ×3 (06:07→15:51)
[2019-07-05] MEDS: ALPRAZOLAM 0.25 MG TABLET PO SCH ×3 (06:07→22:35)
[2019-07-05] MEDS: GABAPENTIN 300 MG CAPSULE PO SCH ×3 (06:07→22:34)
[2019-07-05] MEDS: FERROUS SULFATE 325 MG TABLET PO SCH ×2 (09:38→17:19)
[2019-07-05] MEDS: SERTRALINE HCL 50 MG TABLET PO SCH (09:38)
[2019-07-05] MEDS: PANTOPRAZOLE SODIUM 40 MG TABLET.DR PO SCH (09:38)
[2019-07-05] MEDS: POTASSIUM CHLORIDE 10 MEQ CAPSULE.ER PO SCH (09:38)
[2019-07-05] MEDS: BENZTROPINE MESYLATE 1 MG TABLET PO SCH (09:38)
[2019-07-05] MEDS: TOPIRAMATE 25 MG TABLET PO SCH ×2 (09:44→22:34)
--- NOTE | 2019-07-05 14:14 | PDOC PROGRESS REPORT ---
Subjective Progress Note for:: 07/05/19 Subjective:: Patient seen by the bedside, she said she want to stop smoking, blood culture growing gram positive cocci in clusters consistent with Staphylococcus aureus, continue present line of management with triple antibiotic until final culture result returns Reason For Visit: BILATERAL PNEUMONIA,SEPSIS Physical Exam Vital Signs: Temp Pulse Resp BP Pulse Ox 99.9 F 102 H 20 105/62 91 L 07/05/19 12:21 07/05/19 12:21 07/05/19 12:21 07/05/19 12:21 07/05/19 12:21 Intake & Output 07/04/19 07/05/19 07/06/19 06:59 06:59 06:59 Intake Total 3438 9 1556 Balance 3434 9 1556 Weight 61.1 kg 56.8 kg General appearance: PRESENT: no acute distress Head exam: PRESENT: atraumatic, normocephalic Eye exam: PRESENT: conjunctiva pink, EOMI, PERRLA Mouth exam: PRESENT: moist, tongue midline Neck exam: PRESENT: full ROM Respiratory exam: PRESENT: clear to auscultation rona Cardiovascular exam: PRESENT: RRR, +S1, +S2 Pulses: PRESENT: normal dorsalis pedis pul, +2 pedal pulses bilateral Vascular exam: PRESENT: normal capillary refill GI/Abdominal exam: PRESENT: normal bowel sounds, soft Rectal exam: PRESENT: deferred Neurological exam: PRESENT: alert, awake, oriented to person, oriented to place, oriented to time, oriented to situation, CN II-XII grossly intact Psychiatric exam: PRESENT: appropriate affect, normal mood Skin exam: PRESENT: dry, intact, warm Results Laboratory Results: 07/05/19 04:13 07/05/19 04:13 07/04/19 07/04/19 07/05/19 14:25 14:25 04:13 WBC 10.9 H RBC 3.15 L Hgb 9.6 L Hct 29.3 L MCV 93 MCH 30.4 MCHC 32.7 RDW 14.5 H Plt Count 165 Seg Neutrophils % 85.4 H Sodium 139.4 Potassium 2.9 L* Chloride 114 H Carbon Dioxide 20 L Anion Gap 5 BUN 6 L Creatinine 0.39 L 0.38 L Est GFR ( Amer) > 60 > 60 Glucose 100 Calcium 7.8 L Total Bilirubin < 0.1 L AST 22 Alkaline Phosphatase 156 H Total Protein 4.5 L Albumin 2.4 L 07/05/19 04:13 WBC 11.7 H RBC 2.90 L Hgb 8.7 L Hct 27.0 L MCV 93 MCH 30.0 MCHC 32.3 RDW 14.6 H Plt Count 154 Seg Neutrophils % 84.4 H Sodium Potassium Chloride Carbon Dioxide Anion Gap BUN Creatinine Est GFR ( Amer) Glucose Calcium Total Bilirubin AST Alkaline Phosphatase Total Protein Albumin 07/03/19 14:51 Clean Catch Midstream Urine Culture - Final NO GROWTH 2 DAYS 07/03/19 11:29 Troponin I < 0.012 NT-Pro-B Natriuret Pep 585 Impressions: Chest X-Ray 07/03/19 13:23 IMPRESSION: Interval placement of a left IJ central line as described. No pneumothorax. Persistent diffuse bilateral alveolar airspace disease left greater than right. Assessment & Plan - Diagnosis (1) Acute hypoxemic respiratory failure Is this a current diagnosis for this admission?: Yes Plan: Continue oxygen via nasal cannula (2) Bilateral pneumonia Qualifiers: Pneumonia type: due to unspecified organism Lung location: unspecified part of lung Qualified Code(s): J18.9 - Pneumonia, unspecified organism Is this a current diagnosis for this admission?: Yes Plan: Continue antibiotic (3) Hypotension Qualifiers: Hypotension type: other hypotension type Qualified Code(s): I95.89 - Other hypotension Is this a current diagnosis for this admission?: Yes Plan: Improved (4) Chronic ulcer of left leg Qualifiers: Non-pressure ulcer stage: with fat layer exposed Qualified Code(s): L97.922 - Non-pressure chronic ulcer of unspecified part of left lower leg with fat layer exposed Is this a current diagnosis for this admission?: Yes (5) Staphylococcus aureus septicemia Is this a current diagnosis for this admission?: Yes Plan: Continue IV antibiotic (6) Nicotine dependence Qualifiers: Nicotine product type: cigarettes Substance use status: unspecified nicotine-induced disorder Qualified Code(s): F17.219 - Nicotine dependence, cigarettes, with unspecified nicotine-induced disorders Is this a current diagnosis for this admission?: Yes Plan: Start nicotine patch
[2019-07-05] MEDS: NICOTINE 21 MG/24 HR PATCH.TD24 TD SCH (14:15)
[2019-07-05 14:39] LABS: ABSOLUTE BASOPHILS # (AUTO) 0.1 10^3/uL (0.0-0.2); ABSOLUTE EOSINOPHILS # (AUTO) 0.2 10^3/uL (0.0-0.6); ABSOLUTE LYMPHOCYTES (AUTO) 1.5 10^3/uL (0.5-4.7); ABSOLUTE MONOCYTES (AUTO) 0.6 10^3/uL (0.1-1.4); ABSOLUTE NEUT (AUTO) 9.3 10^3/uL (1.7-8.2); BASOPHILS % (AUTO) 0.5 % (0-2); EOSINOPHILS % (AUTO) 1.7 % (0-6); HEMATOCRIT 27.7 % (36.0-47.0); HEMOGLOBIN 8.9 g/dL (12.0-15.5); LYMPHOCYTES % (AUTO) 12.8 % (13-45); MEAN CORPUSCULAR HEMOGLOBIN 29.9 pg (27.0-33.4); MEAN CORPUSCULAR HGB CONC 32.1 g/dL (32.0-36.0); MEAN CORPUSCULAR VOLUME 93 fl (80-97); MONOCYTES % (AUTO) 5.2 % (3-13); PLATELET COUNT 166 10^3/uL (150-450); RED BLOOD COUNT 2.98 10^6/uL (3.72-5.28); RED CELL DISTRIBUTION WIDTH 14.4 % (11.5-14.0); SEGMENTED NEUTROPHILS % (AUTO) 79.8 % (42-78); TOTAL CELLS COUNTED % (AUTO) 100 %; WHITE BLOOD COUNT 11.6 10^3/uL (4.0-10.5)
[2019-07-05 15:20] LABS: ALBUMIN 2.3 g/dL (3.5-5.0); ALKALINE PHOSPHATASE 144 U/L (38-126); ANION GAP 5 (5-19); ASPARTATE AMINO TRANSFERASE 21 U/L (14-36); BILIRUBIN,DIRECT 0.2 mg/dL (0.0-0.4); BILIRUBIN,TOTAL 0.2 mg/dL (0.2-1.3); BLOOD UREA NITROGEN 3 mg/dL (7-20); CALCIUM 7.7 mg/dL (8.4-10.2); CARBON DIOXIDE 22 mmol/L (22-30); CHLORIDE 109 mmol/L (98-107); GLUCOSE 123 mg/dL (75-110); POTASSIUM 3.7 mmol/L (3.6-5.0); TOTAL PROTEIN 4.4 g/dL (6.3-8.2)
[2019-07-05] MEDS: ACETAMINOPHEN 325 MG TABLET PO PRN (15:51)
--- NOTE | 2019-07-05 17:21 | RADIOLOGY REPORT (SQ) ---
EXAM DESCRIPTION: CHEST SINGLE VIEW COMPLETED DATE/TIME: 07/05/2019 3:47 pm REASON FOR STUDY: PNEUMONIA COMPARISON: Chest x-ray 07/03/2019. EXAM PARAMETERS: NUMBER OF VIEWS: One view. TECHNIQUE: Single frontal radiographic view of the chest acquired. RADIATION DOSE: NA LIMITATIONS: None. FINDINGS: LUNGS AND PLEURA: Diffuse bilateral airspace opacities, increased in the interval. There are small bilateral pleural effusions. No pneumothorax. MEDIASTINUM AND HILAR STRUCTURES: Stable. HEART AND VASCULAR STRUCTURES: The cardiac silhouette is enlarged. BONES: No acute findings. HARDWARE: There is a left IJ central line with the tip overlying the right atrium. IMPRESSION: 1. Interval increase in the diffuse bilateral airspace opacities, may represent worsenin g pneumonia and/or pulmonary edema. Small bilateral pleural effusions. 2. Enlarged cardiac silhouette, may be secondary to cardiomegaly and/or pericardial effusion. TECHNICAL DOCUMENTATION: JOB ID: [id number] [employer]- All Rights Reserved Reading location - IP/workstation name: [email or web address]
[2019-07-05] MEDS ORDERED: FUROSEMIDE INJ/PF 40 MG/4 ML SDV IV ONE (18:45)
[2019-07-05] MEDS: ZOLPIDEM TARTRATE 5 MG TABLET PO SCH (22:35)
[2019-07-06] MEDS: ALBUTEROL SULFATE 0.042% NEB (1.25 MG/3 ML) AMPUL NEB SCH ×4 (01:36→20:49)
[2019-07-06] MEDS: VANCOMYCIN HCL 750 MG in DEXTROSE 5%-WATER 250 ML IV SCH ×3 (02:47→18:44)
[2019-07-06] MEDS: HYDROMORPHONE HCL 2 MG TABLET PO SCH ×4 (04:08→21:36)
[2019-07-06 04:28] LABS: ABSOLUTE BASOPHILS # (AUTO) 0.1 10^3/uL (0.0-0.2); ABSOLUTE EOSINOPHILS # (AUTO) 0.3 10^3/uL (0.0-0.6); ABSOLUTE MONOCYTES (AUTO) 0.6 10^3/uL (0.1-1.4); ABSOLUTE NEUT (AUTO) 7.1 10^3/uL (1.7-8.2); BASOPHILS % (AUTO) 0.9 % (0-2); HEMATOCRIT 26.2 % (36.0-47.0); HEMOGLOBIN 8.5 g/dL (12.0-15.5); LYMPHOCYTES % (AUTO) 11.4 % (13-45); MEAN CORPUSCULAR HEMOGLOBIN 30.2 pg (27.0-33.4); MEAN CORPUSCULAR HGB CONC 32.6 g/dL (32.0-36.0); MEAN CORPUSCULAR VOLUME 93 fl (80-97); MONOCYTES % (AUTO) 6.2 % (3-13); PLATELET COUNT 164 10^3/uL (150-450); RED BLOOD COUNT 2.82 10^6/uL (3.72-5.28); RED CELL DISTRIBUTION WIDTH 14.2 % (11.5-14.0); SEGMENTED NEUTROPHILS % (AUTO) 78.5 % (42-78); TOTAL CELLS COUNTED % (AUTO) 100 %; WHITE BLOOD COUNT 9.1 10^3/uL (4.0-10.5)
[2019-07-06 04:54] LABS: ALBUMIN 2.3 g/dL (3.5-5.0); ALKALINE PHOSPHATASE 132 U/L (38-126); ASPARTATE AMINO TRANSFERASE 24 U/L (14-36); BLOOD UREA NITROGEN 3 mg/dL (7-20); CALCIUM 7.6 mg/dL (8.4-10.2); CARBON DIOXIDE 27 mmol/L (22-30); CHLORIDE 108 mmol/L (98-107); GLUCOSE 120 mg/dL (75-110); POTASSIUM 3.1 mmol/L (3.6-5.0); TOTAL PROTEIN 4.4 g/dL (6.3-8.2)
[2019-07-06 04:57] LABS: BILIRUBIN,TOTAL < 0.1 mg/dL (0.2-1.3)
[2019-07-06 04:58] LABS: ANION GAP 4 (5-19)
[2019-07-06] MEDS ORDERED: AZTREONAM INJ 1 GM VIAL ONE (05:36)
[2019-07-06] MEDS: AZTREONAM 1 GM in DEXTROSE 5%-WATER 50 ML IV SCH ×3 (05:54→22:22)
[2019-07-06] MEDS: CLINDAMYCIN 600 MG/D5W RTU 600 MG/50 ML RTUPB IV SCH ×3 (05:54→21:37)
[2019-07-06] MEDS: LEVOTHYROXINE SODIUM 0.088 MG TABLET PO SCH (05:56)
[2019-07-06] MEDS: MIDODRINE HCL 5 MG TABLET PO SCH ×3 (05:56→17:13)
[2019-07-06] MEDS: GABAPENTIN 300 MG CAPSULE PO SCH ×3 (05:56→21:36)
[2019-07-06] MEDS: ALPRAZOLAM 0.25 MG TABLET PO SCH ×3 (05:57→21:37)
[2019-07-06 08:48] LABS: ARTERIAL BLOOD BASE EXCESS -1.5 mmol/L; ARTERIAL BLOOD FIO2 60%; ARTERIAL BLOOD H2CO3 1.32 mmol/L (1.05-1.35); ARTERIAL BLOOD O2 SATURATION 97.9 % (94-98); ARTERIAL BLOOD PCO2 43.9 mmHg (35-45); ARTERIAL BLOOD PH 7.36 (7.35-7.45); ARTERIAL BLOOD PO2 112.1 mmHg (80-100); ARTERIAL BLOOD TOTAL CO2 25.4 mmol/L (21-25)
[2019-07-06] MEDS ORDERED: FUROSEMIDE INJ/PF 40 MG/4 ML SDV ONE (08:59)
[2019-07-06] MEDS: NICOTINE 21 MG/24 HR PATCH.TD24 TD SCH (09:02)
[2019-07-06] MEDS: PANTOPRAZOLE SODIUM 40 MG TABLET.DR PO SCH (09:09)
[2019-07-06] MEDS: POTASSIUM CHLORIDE 10 MEQ CAPSULE.ER PO SCH (09:09)
[2019-07-06] MEDS: TOPIRAMATE 25 MG TABLET PO SCH ×2 (09:09→22:22)
[2019-07-06] MEDS: BENZTROPINE MESYLATE 1 MG TABLET PO SCH (09:09)
[2019-07-06] MEDS: FERROUS SULFATE 325 MG TABLET PO SCH ×2 (09:09→17:13)
[2019-07-06] MEDS: SERTRALINE HCL 50 MG TABLET PO SCH (09:09)
[2019-07-06] MEDS ORDERED: FUROSEMIDE INJ/PF 40 MG/4 ML SDV IV ONE ×3 (09:15→20:00)
[2019-07-06 11:16] LABS: ABSOLUTE EOSINOPHILS # (AUTO) 0.3 10^3/uL (0.0-0.6); ABSOLUTE LYMPHOCYTES (AUTO) 1.1 10^3/uL (0.5-4.7); ABSOLUTE MONOCYTES (AUTO) 0.6 10^3/uL (0.1-1.4); ABSOLUTE NEUT (AUTO) 6.9 10^3/uL (1.7-8.2); BASOPHILS % (AUTO) 0.5 % (0-2); EOSINOPHILS % (AUTO) 3.3 % (0-6); HEMATOCRIT 26.5 % (36.0-47.0); HEMOGLOBIN 8.6 g/dL (12.0-15.5); MEAN CORPUSCULAR HEMOGLOBIN 30.3 pg (27.0-33.4); MEAN CORPUSCULAR HGB CONC 32.6 g/dL (32.0-36.0); MEAN CORPUSCULAR VOLUME 93 fl (80-97); MONOCYTES % (AUTO) 6.6 % (3-13); PLATELET COUNT 160 10^3/uL (150-450); RED BLOOD COUNT 2.85 10^6/uL (3.72-5.28); RED CELL DISTRIBUTION WIDTH 14.3 % (11.5-14.0); SEGMENTED NEUTROPHILS % (AUTO) 77.6 % (42-78); TOTAL CELLS COUNTED % (AUTO) 100 %; WHITE BLOOD COUNT 8.9 10^3/uL (4.0-10.5)
[2019-07-06] MEDS: RINGERS SOLUTION,LACTATED 1,000 ML IV PRN (11:21)
[2019-07-06 11:39] LABS: ALBUMIN 2.4 g/dL (3.5-5.0); ALKALINE PHOSPHATASE 143 U/L (38-126); ANION GAP 5 (5-19); ASPARTATE AMINO TRANSFERASE 24 U/L (14-36); BILIRUBIN,DIRECT 0.2 mg/dL (0.0-0.4); BILIRUBIN,TOTAL 0.2 mg/dL (0.2-1.3); BLOOD UREA NITROGEN 3 mg/dL (7-20); CALCIUM 7.6 mg/dL (8.4-10.2); CARBON DIOXIDE 28 mmol/L (22-30); CHLORIDE 106 mmol/L (98-107); GLUCOSE 110 mg/dL (75-110); TOTAL PROTEIN 4.5 g/dL (6.3-8.2)
[2019-07-06] MEDS ORDERED: POTASSIUM CHLORIDE 10 MEQ CAPSULE.ER PO ONE (13:00)
[2019-07-06 18:35] LABS: VANCOMYCIN,TROUGH 10.1 ug/mL (5.0-20.0)
--- NOTE | 2019-07-06 19:17 | PDOC PROGRESS REPORT ---
Subjective Progress Note for:: 07/06/19 Subjective:: Patient seen by the bedside she had increased work of breathing last night, requiring noninvasive positive pressure ventilation,. She has bilateral diffuse infiltrate in both lung sainz Reason For Visit: BILATERAL PNEUMONIA,SEPSIS Physical Exam Vital Signs: Temp Pulse Resp BP Pulse Ox 99.6 F 102 H 22 H 105/64 93 07/06/19 15:57 07/06/19 15:57 07/06/19 15:57 07/06/19 15:57 07/06/19 15:57 Intake & Output 07/05/19 07/06/19 07/07/19 06:59 06:59 06:59 Intake Total 2058 3324 1443 Output Total 300 Balance 2058 3024 1443 Weight 56.8 kg 138.9 kg General appearance: PRESENT: mild distress Eye exam: PRESENT: PERRLA Respiratory exam: PRESENT: crackles Cardiovascular exam: PRESENT: +S1, +S2 GI/Abdominal exam: PRESENT: soft Neurological exam: PRESENT: alert, CN II-XII grossly intact Results Laboratory Results: 07/06/19 11:06 07/06/19 11:06 07/06/19 07/06/19 07/06/19 04:18 04:18 06:20 WBC 9.1 RBC 2.82 L Hgb 8.5 L Hct 26.2 L MCV 93 MCH 30.2 MCHC 32.6 RDW 14.2 H Plt Count 164 Seg Neutrophils % 78.5 H Carbonic Acid 1.32 HCO3/H2CO3 Ratio 18:1 ABG pH 7.36 ABG pCO2 43.9 ABG pO2 112.1 H ABG HCO3 24.0 ABG O2 Saturation 97.9 ABG Base Excess -1.5 FiO2 60% Sodium 139.0 Potassium 3.1 L Chloride 108 H Carbon Dioxide 27 Anion Gap 4 L BUN 3 L Creatinine 0.39 L Est GFR ( Amer) > 60 Glucose 120 H Calcium 7.6 L Total Bilirubin < 0.1 L AST 24 Alkaline Phosphatase 132 H Total Protein 4.4 L Albumin 2.3 L 07/06/19 07/06/19 11:06 11:06 WBC 8.9 RBC 2.85 L Hgb 8.6 L Hct 26.5 L MCV 93 MCH 30.3 MCHC 32.6 RDW 14.3 H Plt Count 160 Seg Neutrophils % 77.6 Carbonic Acid HCO3/H2CO3 Ratio ABG pH ABG pCO2 ABG pO2 ABG HCO3 ABG O2 Saturation ABG Base Excess FiO2 Sodium 139.1 Potassium 3.0 L* Chloride 106 Carbon Dioxide 28 Anion Gap 5 BUN 3 L Creatinine 0.40 L Est GFR ( Amer) > 60 Glucose 110 Calcium 7.6 L Total Bilirubin 0.2 AST 24 Alkaline Phosphatase 143 H Total Protein 4.5 L Albumin 2.4 L 07/03/19 11:29 Troponin I < 0.012 NT-Pro-B Natriuret Pep 585 Impressions: Chest X-Ray 07/05/19 00:00 IMPRESSION: 1. Interval increase in the diffuse bilateral airspace opacities, may represent worsening pneumonia and/or pulmonary edema. Small bilateral pleu ral effusions. 2. Enlarged cardiac silhouette, may be secondary to cardiomegaly and/or pericardial effusion. Assessment & Plan - Diagnosis (1) Acute hypoxemic respiratory failure Is this a current diagnosis for this admission?: Yes Plan: Continue noninvasive positive pressure ventilation (2) Bilateral pneumonia Qualifiers: Pneumonia type: due to unspecified organism Lung location: unspecified part of lung Qualified Code(s): J18.9 - Pneumonia, unspecified organism Is this a current diagnosis for this admission?: Yes Plan: Continue present antibiotic coverage, the chest x-ray suggests fluid, discontinue IV fluid, give a bolus of Lasix (3) Hypotension Qualifiers: Hypotension type: other hypotension type Qualified Code(s): I95.89 - Other hypotension Is this a current diagnosis for this admission?: Yes Plan: Blood pressure is stable (4) Chronic ulcer of left leg Qualifiers: Non-pressure ulcer stage: with fat layer exposed Qualified Code(s): L97.922 - Non-pressure chronic ulcer of unspecified part of left lower leg with fat layer exposed Is this a current diagnosis for this admission?: Yes (5) Staphylococcus aureus septicemia Is this a current diagnosis for this admission?: Yes (6) Nicotine dependence Qualifiers: Nicotine product type: cigarettes Substance use status: unspecified nicotine-induced disorder Qualified Code(s): F17.219 - Nicotine dependence, cigarettes, with unspecified nicotine-induced disorders Is this a current diagnosis for this admission?: Yes
[2019-07-06] MEDS: POTASSI CL 20 MEQ/50 ML RIDER 20 MEQ/50 ML RTUPB IV SCH ×2 (20:18→21:41)
[2019-07-06] MEDS: ZOLPIDEM TARTRATE 5 MG TABLET PO SCH (21:37)
[2019-07-07] MEDS: POTASSI CL 20 MEQ/50 ML RIDER 20 MEQ/50 ML RTUPB IV SCH (00:01)
[2019-07-07] MEDS: ALBUTEROL SULFATE 0.042% NEB (1.25 MG/3 ML) AMPUL NEB SCH ×4 (01:50→20:09)
[2019-07-07] MEDS: HYDROMORPHONE HCL 2 MG TABLET PO SCH ×4 (02:57→22:55)
[2019-07-07] MEDS: VANCOMYCIN HCL 1,000 MG in DEXTROSE 5%-WATER 250 ML IV SCH ×3 (02:58→17:24)
[2019-07-07] MEDS: LEVOTHYROXINE SODIUM 0.088 MG TABLET PO SCH (05:22)
[2019-07-07] MEDS: MIDODRINE HCL 5 MG TABLET PO SCH ×3 (05:22→15:52)
[2019-07-07] MEDS: ALPRAZOLAM 0.25 MG TABLET PO SCH ×3 (05:22→22:56)
[2019-07-07] MEDS: AZTREONAM 1 GM in DEXTROSE 5%-WATER 50 ML IV SCH ×3 (05:23→22:55)
[2019-07-07] MEDS: CLINDAMYCIN 600 MG/D5W RTU 600 MG/50 ML RTUPB IV SCH ×3 (05:23→22:54)
[2019-07-07] MEDS: GABAPENTIN 300 MG CAPSULE PO SCH ×3 (05:24→22:56)
[2019-07-07] MEDS: POTASSIUM CHLORIDE 10 MEQ CAPSULE.ER PO SCH ×2 (09:41→09:42)
[2019-07-07] MEDS: FERROUS SULFATE 325 MG TABLET PO SCH ×2 (09:42→17:25)
[2019-07-07] MEDS: PANTOPRAZOLE SODIUM 40 MG TABLET.DR PO SCH (09:42)
[2019-07-07] MEDS: SERTRALINE HCL 50 MG TABLET PO SCH (09:42)
[2019-07-07] MEDS: TOPIRAMATE 25 MG TABLET PO SCH ×2 (09:42→23:23)
[2019-07-07] MEDS: BENZTROPINE MESYLATE 1 MG TABLET PO SCH (09:42)
[2019-07-07] MEDS: NICOTINE 21 MG/24 HR PATCH.TD24 TD SCH (09:43)
[2019-07-07 11:12] LABS: ABSOLUTE EOSINOPHILS # (AUTO) 0.4 10^3/uL (0.0-0.6); ABSOLUTE LYMPHOCYTES (AUTO) 0.9 10^3/uL (0.5-4.7); ABSOLUTE MONOCYTES (AUTO) 0.4 10^3/uL (0.1-1.4); ABSOLUTE NEUT (AUTO) 4.8 10^3/uL (1.7-8.2); BASOPHILS % (AUTO) 0.6 % (0-2); EOSINOPHILS % (AUTO) 5.7 % (0-6); HEMATOCRIT 26.4 % (36.0-47.0); HEMOGLOBIN 8.5 g/dL (12.0-15.5); LYMPHOCYTES % (AUTO) 14.1 % (13-45); MEAN CORPUSCULAR HEMOGLOBIN 30.3 pg (27.0-33.4); MEAN CORPUSCULAR HGB CONC 32.2 g/dL (32.0-36.0); MEAN CORPUSCULAR VOLUME 94 fl (80-97); MONOCYTES % (AUTO) 6.2 % (3-13); PLATELET COUNT 170 10^3/uL (150-450); RED BLOOD COUNT 2.81 10^6/uL (3.72-5.28); RED CELL DISTRIBUTION WIDTH 14.1 % (11.5-14.0); SEGMENTED NEUTROPHILS % (AUTO) 73.4 % (42-78); TOTAL CELLS COUNTED % (AUTO) 100 %; WHITE BLOOD COUNT 6.6 10^3/uL (4.0-10.5)
[2019-07-07] MEDS: ONDANSETRON 4 MG TAB.RAPDIS PO PRN (11:12)
[2019-07-07] MEDS: ACETAMINOPHEN 325 MG TABLET PO PRN (11:12)
[2019-07-07 11:24] LABS: ALBUMIN 2.3 g/dL (3.5-5.0); ALKALINE PHOSPHATASE 147 U/L (38-126); ASPARTATE AMINO TRANSFERASE 24 U/L (14-36); BILIRUBIN,DIRECT 0.2 mg/dL (0.0-0.4); BILIRUBIN,TOTAL 0.2 mg/dL (0.2-1.3); BLOOD UREA NITROGEN 4 mg/dL (7-20); CALCIUM 7.9 mg/dL (8.4-10.2); CARBON DIOXIDE 29 mmol/L (22-30); CHLORIDE 108 mmol/L (98-107); GLUCOSE 102 mg/dL (75-110); TOTAL PROTEIN 4.7 g/dL (6.3-8.2)
[2019-07-07 11:45] LABS: POTASSIUM 4.1 mmol/L (3.6-5.0)
[2019-07-07 11:46] LABS: ANION GAP 2 (5-19)
--- NOTE | 2019-07-07 18:21 | PDOC PROGRESS REPORT ---
Subjective Progress Note for:: 07/07/19 Subjective:: Patient was seen by the bedside, she continues to improve, she is very sleepy, is it seems that she is oversedated,, stop IV Dilaudid, the chest x-ray that was done today suggests improvement in the infiltrate of both lung field Reason For Visit: BILATERAL PNEUMONIA,SEPSIS Physical Exam Vital Signs: Temp Pulse Resp BP Pulse Ox 98.4 F 65 18 108/59 L 99 07/07/19 15:08 07/07/19 15:08 07/07/19 15:08 07/07/19 15:08 07/07/19 15:08 Intake & Output 07/06/19 07/07/19 07/08/19 06:59 06:59 06:59 Intake Total 3324 2179 1170 Output Total 668 785 1989 Balance 3024 1479 -130 Weight 138.9 kg 59.3 kg General appearance: PRESENT: mild distress Eye exam: PRESENT: PERRLA Respiratory exam: PRESENT: rhonchi Cardiovascular exam: PRESENT: +S1, +S2 GI/Abdominal exam: PRESENT: soft Neurological exam: PRESENT: alert Results Laboratory Results: 07/07/19 10:40 07/07/19 10:40 07/07/19 07/07/19 10:40 10:40 WBC 6.6 RBC 2.81 L Hgb 8.5 L Hct 26.4 L MCV 94 MCH 30.3 MCHC 32.2 RDW 14.1 H Plt Count 170 Seg Neutrophils % 73.4 Sodium 139.3 Potassium 4.1 D Chloride 108 H Carbon Dioxide 29 Anion Gap 2 L BUN 4 L Creatinine 0.35 L Est GFR ( Amer) > 60 Glucose 102 Calcium 7.9 L Total Bilirubin 0.2 AST 24 Alkaline Phosphatase 147 H Total Protein 4.7 L Albumin 2.3 L 07/03/19 14:59 Blood Blood Culture - Final Micrococcus Species 07/03/19 11:29 Troponin I < 0.012 NT-Pro-B Natriuret Pep 585 Assessment & Plan - Diagnosis (1) Acute hypoxemic respiratory failure Is this a current diagnosis for this admission?: Yes Plan: Continue noninvasive positive pressure ventilation (2) Bilateral pneumonia Qualifiers: Pneumonia type: due to unspecified organism Lung location: unspecified part of lung Qualified Code(s): J18.9 - Pneumonia, unspecified organism Is this a current diagnosis for this admission?: Yes (3) Hypotension Qualifiers: Hypotension type: other hypotension type Qualified Code(s): I95.89 - Other hypotension Is this a current diagnosis for this admission?: Yes Plan: Blood pressure is stable (4) Chronic ulcer of left leg Qualifiers: Non-pressure ulcer stage: with fat layer exposed Qualified Code(s): L97.922 - Non-pressure chronic ulcer of unspecified part of left lower leg with fat layer exposed Is this a current diagnosis for this admission?: Yes (5) Nicotine dependence Qualifiers: Nicotine product type: cigarettes Substance use status: unspecified nicotine-induced disorder Qualified Code(s): F17.219 - Nicotine dependence, cigarettes, with unspecified nicotine-induced disorders Is this a current diagnosis for this admission?: Yes
--- NOTE | 2019-07-07 18:21 | RADIOLOGY REPORT (SQ) ---
EXAM DESCRIPTION: CHEST SINGLE VIEW COMPLETED DATE/TIME: 07/07/2019 6:05 pm REASON FOR STUDY: pneumonia COMPARISON: 07/05/2019 NUMBER OF VIEWS: One view. TECHNIQUE: Single frontal radiographic image of the chest acquired. LIMITATIONS: None. FINDINGS: LUNGS AND PLEURA: Stable appearance. MEDIASTINUM AND HILAR STRUCTURES: Stable heart size and mediastinal structures. HEART AND VASCULAR STRUCTURES: Stable appearance. BONES: No acute findings. HARDWARE: Central line remains in place. OTHER: No other significant finding. IMPRESSION: STABLE APPEARANCE OF THE CHEST. TECHNICAL DOCUMENTATION: JOB ID: [id number] [employer]- All Rights Reserved Reading location - IP/workstation name: [email or web address]
[2019-07-07] MEDS: ZOLPIDEM TARTRATE 5 MG TABLET PO SCH (22:56)
[2019-07-07] MEDS ORDERED: TOPIRAMATE 25 MG TABLET ONE (23:14)
[2019-07-08] MEDS: ALBUTEROL SULFATE 0.042% NEB (1.25 MG/3 ML) AMPUL NEB SCH ×4 (01:56→20:18)
[2019-07-08] MEDS: VANCOMYCIN HCL 1,000 MG in DEXTROSE 5%-WATER 250 ML IV SCH ×3 (03:29→17:48)
[2019-07-08] MEDS: HYDROMORPHONE HCL 2 MG TABLET PO SCH ×4 (03:30→21:58)
[2019-07-08 04:18] LABS: ABSOLUTE EOSINOPHILS # (AUTO) 0.4 10^3/uL (0.0-0.6); ABSOLUTE LYMPHOCYTES (AUTO) 1.2 10^3/uL (0.5-4.7); ABSOLUTE MONOCYTES (AUTO) 0.4 10^3/uL (0.1-1.4); ABSOLUTE NEUT (AUTO) 5.6 10^3/uL (1.7-8.2); BASOPHILS % (AUTO) 0.5 % (0-2); EOSINOPHILS % (AUTO) 4.8 % (0-6); HEMATOCRIT 21.8 % (36.0-47.0); LYMPHOCYTES % (AUTO) 16.2 % (13-45); MEAN CORPUSCULAR HEMOGLOBIN 30.5 pg (27.0-33.4); MEAN CORPUSCULAR HGB CONC 32.5 g/dL (32.0-36.0); MEAN CORPUSCULAR VOLUME 94 fl (80-97); MONOCYTES % (AUTO) 5.8 % (3-13); PLATELET COUNT 237 10^3/uL (150-450); RED BLOOD COUNT 2.32 10^6/uL (3.72-5.28); RED CELL DISTRIBUTION WIDTH 14.6 % (11.5-14.0); SEGMENTED NEUTROPHILS % (AUTO) 72.7 % (42-78); TOTAL CELLS COUNTED % (AUTO) 100 %; WHITE BLOOD COUNT 7.7 10^3/uL (4.0-10.5)
[2019-07-08 04:20] LABS: HEMOGLOBIN 7.1 g/dL (12.0-15.5)
[2019-07-08 04:40] LABS: ALBUMIN 2.3 g/dL (3.5-5.0); ALKALINE PHOSPHATASE 131 U/L (38-126); ASPARTATE AMINO TRANSFERASE 24 U/L (14-36); BILIRUBIN,DIRECT 0.2 mg/dL (0.0-0.4); BILIRUBIN,TOTAL 0.2 mg/dL (0.2-1.3); BLOOD UREA NITROGEN 7 mg/dL (7-20); CALCIUM 8.1 mg/dL (8.4-10.2); CARBON DIOXIDE 26 mmol/L (22-30); GLUCOSE 111 mg/dL (75-110); POTASSIUM 4.4 mmol/L (3.6-5.0); TOTAL PROTEIN 4.6 g/dL (6.3-8.2)
[2019-07-08 04:46] LABS: CHLORIDE 111 mmol/L (98-107)
[2019-07-08 04:51] LABS: ANION GAP 3 (5-19)
[2019-07-08] MEDS: CLINDAMYCIN 600 MG/D5W RTU 600 MG/50 ML RTUPB IV SCH ×3 (05:47→22:01)
[2019-07-08] MEDS: ALPRAZOLAM 0.25 MG TABLET PO SCH ×3 (05:48→22:00)
[2019-07-08] MEDS: LEVOTHYROXINE SODIUM 0.088 MG TABLET PO SCH (05:48)
[2019-07-08] MEDS: AZTREONAM 1 GM in DEXTROSE 5%-WATER 50 ML IV SCH ×3 (05:48→22:01)
[2019-07-08] MEDS: GABAPENTIN 300 MG CAPSULE PO SCH ×3 (05:48→21:59)
[2019-07-08] MEDS: MIDODRINE HCL 5 MG TABLET PO SCH ×3 (05:55→17:26)
[2019-07-08 08:52] LABS: ABSOLUTE BASOPHILS # (AUTO) 0.1 10^3/uL (0.0-0.2); ABSOLUTE EOSINOPHILS # (AUTO) 0.4 10^3/uL (0.0-0.6); ABSOLUTE LYMPHOCYTES (AUTO) 1.3 10^3/uL (0.5-4.7); ABSOLUTE MONOCYTES (AUTO) 0.4 10^3/uL (0.1-1.4); ABSOLUTE NEUT (AUTO) 4.6 10^3/uL (1.7-8.2); BASOPHILS % (AUTO) 1.3 % (0-2); EOSINOPHILS % (AUTO) 5.7 % (0-6); HEMATOCRIT 26.6 % (36.0-47.0); HEMOGLOBIN 8.5 g/dL (12.0-15.5); LYMPHOCYTES % (AUTO) 19.2 % (13-45); MEAN CORPUSCULAR HEMOGLOBIN 30.2 pg (27.0-33.4); MEAN CORPUSCULAR HGB CONC 32.1 g/dL (32.0-36.0); MEAN CORPUSCULAR VOLUME 94 fl (80-97); PLATELET COUNT 225 10^3/uL (150-450); RED BLOOD COUNT 2.83 10^6/uL (3.72-5.28); RED CELL DISTRIBUTION WIDTH 14.5 % (11.5-14.0); SEGMENTED NEUTROPHILS % (AUTO) 67.8 % (42-78); TOTAL CELLS COUNTED % (AUTO) 100 %; WHITE BLOOD COUNT 6.8 10^3/uL (4.0-10.5)
[2019-07-08] MEDS: BENZTROPINE MESYLATE 1 MG TABLET PO SCH (11:54)
[2019-07-08] MEDS: SERTRALINE HCL 50 MG TABLET PO SCH (11:55)
[2019-07-08] MEDS: PANTOPRAZOLE SODIUM 40 MG TABLET.DR PO SCH (11:55)
[2019-07-08] MEDS: POTASSIUM CHLORIDE 10 MEQ CAPSULE.ER PO SCH ×2 (11:55)
[2019-07-08] MEDS: FERROUS SULFATE 325 MG TABLET PO SCH ×2 (11:55→17:27)
[2019-07-08] MEDS: TOPIRAMATE 25 MG TABLET PO SCH ×2 (11:55→21:59)
[2019-07-08] MEDS: NICOTINE 21 MG/24 HR PATCH.TD24 TD SCH (11:56)
[2019-07-08 13:19] LABS: VANCOMYCIN,TROUGH 15.1 ug/mL (5.0-20.0)
--- NOTE | 2019-07-08 16:03 | PDOC PROGRESS REPORT ---
Subjective Progress Note for:: 07/08/19 Subjective:: Patient continues to improve, she will be discharged home on Saturday Reason For Visit: BILATERAL PNEUMONIA,SEPSIS Physical Exam Vital Signs: Temp Pulse Resp BP Pulse Ox 98.6 F 89 16 114/56 L 93 07/08/19 11:33 07/08/19 14:13 07/08/19 14:13 07/08/19 11:33 07/08/19 14:13 Intake & Output 07/07/19 07/08/19 07/09/19 06:59 06:59 06:59 Intake Total 2179 1770 341 Output Total 700 2650 900 Balance 9512 -070 -367 Weight 59.3 kg 63 kg General appearance: PRESENT: no acute distress Eye exam: PRESENT: PERRLA Respiratory exam: PRESENT: rhonchi Cardiovascular exam: PRESENT: +S1, +S2 GI/Abdominal exam: PRESENT: soft Neurological exam: PRESENT: alert Results Laboratory Results: 07/08/19 08:38 07/08/19 03:50 07/08/19 07/08/19 07/08/19 03:50 03:50 08:38 WBC 7.7 6.8 RBC 2.32 L 2.83 L Hgb 7.1 L 8.5 L Hct 21.8 L 26.6 L MCV 94 94 MCH 30.5 30.2 MCHC 32.5 32.1 RDW 14.6 H 14.5 H Plt Count 237 225 Seg Neutrophils % 72.7 67.8 Sodium 139.5 Potassium 4.4 Chloride 111 H Carbon Dioxide 26 Anion Gap 3 L BUN 7 Creatinine 0.47 L Est GFR ( Amer) > 60 Glucose 111 H Calcium 8.1 L Total Bilirubin 0.2 AST 24 Alkaline Phosphatase 131 H Total Protein 4.6 L Albumin 2.3 L 07/03/19 11:29 Blood Blood Culture - Final NO GROWTH IN 5 DAYS 07/03/19 11:29 Troponin I < 0.012 NT-Pro-B Natriuret Pep 585 Impressions: Chest X-Ray 07/07/19 00:00 IMPRESSION: STABLE APPEARANCE OF THE CHEST. Assessment & Plan - Diagnosis (1) Acute hypoxemic respiratory failure Is this a current diagnosis for this admission?: Yes Plan: Continue oxygen (2) Bilateral pneumonia Qualifiers: Pneumonia type: due to unspecified organism Lung location: unspecified part of lung Qualified Code(s): J18.9 - Pneumonia, unspecified organism Is this a current diagnosis for this admission?: Yes Plan: Continue triple antibiotic (3) Hypotension Qualifiers: Hypotension type: other hypotension type Qualified Code(s): I95.89 - Other hypotension Is this a current diagnosis for this admission?: Yes (4) Chronic ulcer of left leg Qualifiers: Non-pressure ulcer stage: with fat layer exposed Qualified Code(s): L97.922 - Non-pressure chronic ulcer of unspecified part of left lower leg with fat layer exposed Is this a current diagnosis for this admission?: Yes (5) Nicotine dependence Qualifiers: Nicotine product type: cigarettes Substance use status: unspecified nicotine-induced disorder Qualified Code(s): F17.219 - Nicotine dependence, cigarettes, with unspecified nicotine-induced disorders Is this a current diagnosis for this admission?: Yes
[2019-07-08] MEDS: ZOLPIDEM TARTRATE 5 MG TABLET PO SCH (21:58)
[2019-07-09] MEDS: ALBUTEROL SULFATE 0.042% NEB (1.25 MG/3 ML) AMPUL NEB SCH ×4 (02:00→20:22)
[2019-07-09] MEDS: VANCOMYCIN HCL 1,000 MG in DEXTROSE 5%-WATER 250 ML IV SCH ×3 (02:55→19:00)
[2019-07-09] MEDS: HYDROMORPHONE HCL 2 MG TABLET PO SCH ×4 (02:56→21:34)
[2019-07-09] MEDS: CLINDAMYCIN 600 MG/D5W RTU 600 MG/50 ML RTUPB IV SCH ×3 (05:36→21:33)
[2019-07-09] MEDS: AZTREONAM 1 GM in DEXTROSE 5%-WATER 50 ML IV SCH ×3 (05:37→21:33)
[2019-07-09] MEDS: GABAPENTIN 300 MG CAPSULE PO SCH ×3 (05:38→21:35)
[2019-07-09] MEDS: ALPRAZOLAM 0.25 MG TABLET PO SCH ×3 (05:38→21:35)
[2019-07-09] MEDS: MIDODRINE HCL 5 MG TABLET PO SCH ×3 (05:38→16:59)
[2019-07-09] MEDS: LEVOTHYROXINE SODIUM 0.088 MG TABLET PO SCH (05:38)
[2019-07-09 11:12] LABS: HEMATOCRIT 28.3 % (36.0-47.0); MEAN CORPUSCULAR HEMOGLOBIN 29.9 pg (27.0-33.4); MEAN CORPUSCULAR HGB CONC 31.9 g/dL (32.0-36.0); MEAN CORPUSCULAR VOLUME 94 fl (80-97); PLATELET COUNT 259 10^3/uL (150-450); RED BLOOD COUNT 3.02 10^6/uL (3.72-5.28); RED CELL DISTRIBUTION WIDTH 14.3 % (11.5-14.0); WHITE BLOOD COUNT 5.7 10^3/uL (4.0-10.5)
[2019-07-09] MEDS: POTASSIUM CHLORIDE 10 MEQ CAPSULE.ER PO SCH ×2 (11:19)
[2019-07-09] MEDS: NICOTINE 21 MG/24 HR PATCH.TD24 TD SCH (11:19)
[2019-07-09] MEDS: BENZTROPINE MESYLATE 1 MG TABLET PO SCH (11:20)
[2019-07-09] MEDS: SERTRALINE HCL 50 MG TABLET PO SCH (11:20)
[2019-07-09] MEDS: PANTOPRAZOLE SODIUM 40 MG TABLET.DR PO SCH (11:21)
[2019-07-09] MEDS: FERROUS SULFATE 325 MG TABLET PO SCH ×2 (11:21→20:24)
[2019-07-09] MEDS: TOPIRAMATE 25 MG TABLET PO SCH ×2 (11:22→21:34)
[2019-07-09 11:33] LABS: ALBUMIN 2.5 g/dL (3.5-5.0); ALKALINE PHOSPHATASE 127 U/L (38-126); ASPARTATE AMINO TRANSFERASE 16 U/L (14-36); BLOOD UREA NITROGEN 10 mg/dL (7-20); CARBON DIOXIDE 25 mmol/L (22-30); GLUCOSE 99 mg/dL (75-110); POTASSIUM 4.6 mmol/L (3.6-5.0); TOTAL PROTEIN 4.8 g/dL (6.3-8.2)
[2019-07-09 11:35] LABS: BILIRUBIN,TOTAL < 0.1 mg/dL (0.2-1.3)
[2019-07-09 11:38] LABS: CHLORIDE 111 mmol/L (98-107)
[2019-07-09 11:42] LABS: ANION GAP 4 (5-19)
[2019-07-09 11:51] LABS: ABSOLUTE LYMPHOCYTES# (MANUAL) 1.1 10^3/uL (0.5-4.7); ABSOLUTE MONOCYTES # (MANUAL) 0.3 10^3/uL (0.1-1.4); BAND NEUTROPHILS % (MANUAL) 2 % (3-5); BASOPHILS % (MANUAL) 0 % (0-2); EOSINOPHILS % (MANUAL) 7 % (0-6); LYMPHOCYTES % (MANUAL) 17 % (13-45); METAMYELOCYTES % (MANUAL) 2 % (0); MONOCYTES % (MANUAL) 6 % (3-13); SEGMENTED NEUTROPHILS % (MAN) 64 % (42-78); TOTAL CELLS COUNTED 100
[2019-07-09 11:52] LABS: ANISOCYTOSIS SLIGHT; PLATELET COMMENT ADEQUATE; TOXIC GRANULATION 1+
--- NOTE | 2019-07-09 12:54 | Progress Note ---
Provider Note Provider Note: ID Consult Note Asked to review patient's chart by Pharmacy. Pt not seen or examined. Pt is a 49 year old woman with PMH including COPD and chronic L lateral leg wound who presented on 07/03/19 with c/o 1 week of SOB, productive cough and congestion. She had fever, tachypnea, crackles on auscultation, hypoxia, leukocytosis, and diffuse b/l interstitial airspace disease L>R on CXR. Blood cultures were obtained, which grew Micrococcus in one bottle, a contaminant. The other set had no growth. She was empirically treated with vancomycin, clindamycin and aztreonam. She reported allergies to Primaxin (facial swelling), sulfa drugs, and penicillins (generalized rash). No sputum culture is available. Her leukocytosis resolved. Last fever was on 07/06. Per most recent provider note, patient has improved and discharge is anticipated on Saturday07/10/19. Impression/Recommendations Patient is on day 6 of empiric treatment of pneumonia, which has included clindamycin and vancomycin that both have activity against streptococci and antistaphylococcal activity, including MRSA. Given the overlap in coverage and lack of true bacteremia, consider stopping IV vancomycin. Curtis Kelley MD [facility] Infectious Diseases pager [phone]
--- NOTE | 2019-07-09 19:56 | PDOC DISCHARGE SUMMARY ---
General - Admit/Disc Date/PCP Admission Date/Primary Care Provider: 07/03/19 13:29 JOHN CANNON MD Discharge Date: 07/09/19 - Discharge Diagnosis (1) Acute hypoxemic respiratory failure Is this a current diagnosis for this admission?: Yes (2) Bilateral pneumonia Is this a current diagnosis for this admission?: Yes (3) Hypotension Is this a current diagnosis for this admission?: Yes (4) Chronic ulcer of left leg Is this a current diagnosis for this admission?: Yes (5) Nicotine dependence Is this a current diagnosis for this admission?: Yes (6) Sepsis Is this a current diagnosis for this admission?: Yes (7) Hypoalbuminemia Is this a current diagnosis for this admission?: Yes (8) Hypothyroidism Is this a current diagnosis for this admission?: Yes - Additional Information Resuscitation Status: Full Code Home Medications: Albuterol Sulfate [Ventolin 0.042% Neb 1.25 mg/3 mL Ampul] 0.625 mg NEB RTQ6 07/03/19 Alprazolam [Xanax 0.25 mg Tablet] 0.25 mg PO Q8 07/03/19 Benztropine Mesylate [Cogentin 1 mg Tablet] 1 mg PO DAILY 07/03/19 Esomeprazole Mag Trihydrate [Nexium] 40 mg PO DAILY 07/03/19 Eszopiclone [Lunesta] 3 mg PO QHS 07/03/19 Ferrous Sulfate [Feosol 325 mg Tablet] 325 mg PO BID 07/03/19 Fluticasone/Umeclidin/Vilanter [Trelegy 100-62.5-25 Mcg Ellipta 14 Dose/Dpi] 1 inh IH DAILY 07/03/19 Gabapentin [Neurontin 300 mg Capsule] 300 mg PO Q8 07/03/19 Hydromorphone HCl [Dilaudid] 4 mg PO Q6 07/03/19 Levothyroxine Sodium [Synthroid 0.088 mg Tablet] 0.088 mg PO Q6AM 07/03/19 Lurasidone HCl [Latuda 40 mg Tablet] 40 mg PO DAILY 07/03/19 Naloxegol Oxalate [Movantik 25 mg Tablet] 25 mg PO DAILY 07/03/19 Potassium Chloride [Klor-Con 10 Meq Capsule ER] 20 meq PO DAILY 07/03/19 Sertraline HCl [Zoloft 50 mg Tablet] 100 mg PO DAILY 07/03/19 Topiramate [Topamax 25 mg Tablet] 25 mg PO DAILY 07/03/19 Topiramate [Topamax 25 mg Tablet] 50 mg PO QHS 07/03/19 Nicotine [Nicoderm 21 mg/24 Hr Transderm Patch] 1 each TD DAILY patch.td24 07/09/19 Potassium Chloride [Klor-Con 10 Meq Capsule ER] 40 meq PO DAILY capsule.er 07/09/19 History of Present Illness History of Present Illness: [place] is a 49 year old female, she was sent to the emergency room from wound clinic for evaluation of low blood pressure and chest pain. Patient is well-known to me she has a history of underlying COPD, chronic leg ulcer that is managed in the wound clinic, she continues to smoke cigarettes about a pack a day she has chronic hypotension, she was previously diagnosed with adrenal insufficiency, when she arrived in the emergency room the blood pressure recorded was 88/54, she was also found to be febrile, temperature recorded 99.2, there was associated leukocytosis chest x-ray showed diffuse bilateral infiltrate. The arterial blood gas on FiO2 3 L, pH 7.35, PCO2 34.5, PO2 82.4, bicarbonate 18.5 She complain of a week history of cough, productive of sputum Hospital Course Hospital Course: Patient was admitted for the management of bilateral pneumonia, hypotension, she was treated with IV antibiotic including vancomycin, aztreonam, clindamycin empirically ,no specific bacteria was cultured from the blood, she came in septic with low blood pressure, she required noninvasive positive pressure ventilation with BiPAP machine. Patient responded to treatment, treatment was empiric no specific pathogen was isolated ,the blood culture was initially positive for gram-positive cocci in clusters but the final pathogen isolated was micrococcus which is essentially contamination.She supposedly was diagnosed with adrenal insufficiency I am not exactly sure when and how she was diagnosed with this condition, on the medication reconciliation it was listed that she was on fludrocortisone, and also antihypertensive drugS. Her blood pressure is chronically low which seems very unusual for the patient with adrenal insufficiency with chronic hypotension to be on 2 different medication for the control of blood pressure but she denied taking all this medication despite the fact that the medication was reconciled by pharmacist which I assume the pharmacist confirm this medication with the retail pharmacy.She was not treated with intravenous hydrocortisone on this admission the blood pressure was low but she was treated with midodrine and also treated with low fluid infusion. Patient improved significantly on this regimen she also have chronic hypoalbuminemia, The etiology most likely from poor nutritional state Physical Exam Vital Signs: Temp Pulse Resp BP Pulse Ox 99.6 F 89 18 122/64 96 07/09/19 16:20 07/09/19 16:20 07/09/19 16:20 07/09/19 16:20 07/09/19 16:20 Intake & Output 07/08/19 07/09/19 07/10/19 06:59 06:59 06:59 Intake Total 1770 1562 1191 Output Total 2650 3125 950 Balance -880 -1563 241 Weight 63 kg 60.8 kg General appearance: PRESENT: no acute distress Head exam: PRESENT: atraumatic Eye exam: PRESENT: PERRLA. ABSENT: scleral icterus Mouth exam: PRESENT: moist, tongue midline Neck exam: PRESENT: full ROM Respiratory exam: PRESENT: clear to auscultation rona Cardiovascular exam: PRESENT: RRR, +S1, +S2 Vascular exam: PRESENT: normal capillary refill GI/Abdominal exam: PRESENT: normal bowel sounds, soft Rectal exam: PRESENT: deferred Neurological exam: PRESENT: alert, CN II-XII grossly intact Psychiatric exam: PRESENT: appropriate affect, normal mood Skin exam: PRESENT: dry, intact, warm Results Laboratory Results: 07/09/19 10:50 07/09/19 10:50 07/09/19 07/09/19 10:50 10:50 WBC 5.7 RBC 3.02 L Hgb 9.0 L Hct 28.3 L MCV 94 MCH 29.9 MCHC 31.9 L RDW 14.3 H Plt Count 259 Seg Neutrophils % Not Reportable Sodium 139.9 Potassium 4.6 Chloride 111 H Carbon Dioxide 25 Anion Gap 4 L BUN 10 Creatinine 0.49 L Est GFR ( Amer) > 60 Glucose 99 Calcium 8.0 L Total Bilirubin < 0.1 L AST 16 Alkaline Phosphatase 127 H Total Protein 4.8 L Albumin 2.5 L 07/03/19 11:29 Troponin I < 0.012 NT-Pro-B Natriuret Pep 585 Impressions: Chest X-Ray 07/07/19 00:00 IMPRESSION: STABLE APPEARANCE OF THE CHEST. Qualifiers - * PATIENT BEING DISCHARGED WITH ANY OF THE FOLLOWING DIAGNOSIS: No VTE patient discharged on overlapping Therapy?: No Reason(s) for not prescribing Overlap Therapy:: Not indicated Stroke Pt being discharged on Anti-thrombolytic therapy?: No Reason(s) for not prescribing Anti-thrombolytic therapy:: Not indicated Stroke Pt being discharged on Anti-coagulation therapy?: No Reason(s) for not prescribing Anti-coagulation therapy:: Not indicated Stroke Pt being discharged on Statins?: No Reason(s) for not prescribing Statins therapy:: Not indicated OH Pt being discharged on Aspirin therapy?: No Reason(s) for not prescribing Aspirin therapy:: Not indicated OH Pt being discharged on Statins?: No Reason(s) for not prescribing Statin therapy:: Not indicated OH Pt discharged ACEI/ARBS?: No Reason(s) for not prescribing ACEI/ARBS:: Not indicated Acute Heart Failure - Is this a Heart Failure Patient?: No Documentation of LVEF assessment?: No, Document reason Follow-up Appointment scheduled within 7 days?: Yes
[2019-07-09] MEDS: ZOLPIDEM TARTRATE 5 MG TABLET PO SCH (21:34)
[2019-07-10] MEDS: ALBUTEROL SULFATE 0.042% NEB (1.25 MG/3 ML) AMPUL NEB SCH ×3 (01:48→13:43)
[2019-07-10] MEDS: VANCOMYCIN HCL 1,000 MG in DEXTROSE 5%-WATER 250 ML IV SCH ×2 (04:10→10:44)
[2019-07-10] MEDS: HYDROMORPHONE HCL 2 MG TABLET PO SCH ×2 (04:23→10:40)
[2019-07-10] MEDS: AZTREONAM 1 GM in DEXTROSE 5%-WATER 50 ML IV SCH (06:57)
[2019-07-10] MEDS: CLINDAMYCIN 600 MG/D5W RTU 600 MG/50 ML RTUPB IV SCH (06:57)
[2019-07-10] MEDS: GABAPENTIN 300 MG CAPSULE PO SCH (06:57)
[2019-07-10] MEDS: ALPRAZOLAM 0.25 MG TABLET PO SCH (06:58)
[2019-07-10] MEDS: LEVOTHYROXINE SODIUM 0.088 MG TABLET PO SCH (06:58)
[2019-07-10] MEDS: MIDODRINE HCL 5 MG TABLET PO SCH (07:01)
[2019-07-10] MEDS: POTASSIUM CHLORIDE 10 MEQ CAPSULE.ER PO SCH ×2 (10:37→10:39)
[2019-07-10] MEDS: SERTRALINE HCL 50 MG TABLET PO SCH (10:37)
[2019-07-10] MEDS: FERROUS SULFATE 325 MG TABLET PO SCH (10:39)
[2019-07-10] MEDS: PANTOPRAZOLE SODIUM 40 MG TABLET.DR PO SCH (10:39)
[2019-07-10] MEDS: BENZTROPINE MESYLATE 1 MG TABLET PO SCH (10:39)
[2019-07-10] MEDS: TOPIRAMATE 25 MG TABLET PO SCH (10:43)
[2019-07-10] MEDS: NICOTINE 21 MG/24 HR PATCH.TD24 TD SCH (10:43)
[2019-07-10 16:31] VITALS: BP 112/65
== END 2019-07-10 18:10 | disposition home or self-care (01) | DRG 871 ==
LOC: ER 10:02 → EH 13:29 → 3S 18:32
PROVIDERS: ADMIT Internal Medicine; ATTEND Internal Medicine
PROC: 05HN33Z Insertion of Infusion Device into Left Internal Jugular Vein, Percutaneous Approach (ICD-10-PCS; 2019-07-03)
PROC: 5A09357 Assistance with Respiratory Ventilation, Less than 24 Consecutive Hours, Continuous Positive Airway Pressure (ICD-10-PCS; principal; 2019-07-06)
DX: A41.9 Sepsis, unspecified organism (principal); J18.9 Pneumonia, unspecified organism; J96.01 Acute respiratory failure with hypoxia; E27.40 Unspecified adrenocortical insufficiency; L97.922 Non-pressure chronic ulcer of unspecified part of left lower leg with fat layer exposed; I95.9 Hypotension, unspecified; E88.09 Other disorders of plasma-protein metabolism, not elsewhere classified; D64.9 Anemia, unspecified; E03.9 Hypothyroidism, unspecified; J44.9 Chronic obstructive pulmonary disease, unspecified; E78.5 Hyperlipidemia, unspecified; I10 Essential (primary) hypertension; K21.9 Gastro-esophageal reflux disease without esophagitis; M19.90 Unspecified osteoarthritis, unspecified site; F17.219 Nicotine dependence, cigarettes, with unspecified nicotine-induced disorders; F31.9 Bipolar disorder, unspecified; Z98.84 Bariatric surgery status; Z83.3 Family history of diabetes mellitus; Z82.49 Family history of ischemic heart disease and other diseases of the circulatory system; Z88.1 Allergy status to other antibiotic agents; Z88.0 Allergy status to penicillin; Z88.2 Allergy status to sulfonamides; Z85.43 Personal history of malignant neoplasm of ovary
CPT/HCPCS: 36415; 36600; 71045; 71046; 80053; 80202; 81001; 82533; 82565; 82803; 82962; 83605; 83690; 83735; 83880; 84484; 85025; 85610; 87040; 87070; 87077; 87086; 93005; 93010; 94640; 94660; 96365; 96367; 99285; C1751; J1642; J1940; J2543; J3370; J3480; J3490; J7030; J7040; J7060; J7120; S0119

== ENCOUNTER 2019-09-22 11:06 | Inpatient (IN) | payer MEDICARE, MEDICAID ==
--- NOTE | 2019-09-22 12:10 | RADIOLOGY REPORT (SQ) ---
EXAM DESCRIPTION: CHEST SINGLE VIEW COMPLETED DATE/TIME: 09/22/2019 11:58 am REASON FOR STUDY: bed 4 db/ sepsis protocol COMPARISON: 07/07/2019 NUMBER OF VIEWS: One view. TECHNIQUE: Single frontal radiographic image of the chest acquired. LIMITATIONS: None. FINDINGS: LUNGS AND PLEURA: Stable in appearance with diffuse bilateral interstitial airspace diseas e. The left-sided central line has been removed since prior study. MEDIASTINUM AND HILAR STRUCTURES: Normal in appearance. HEART AND VASCULAR STRUCTURES: Heart size is stable. There is central vascular prominence. BONES: No acute findings. OTHER: No other significant finding. IMPRESSION: Diffuse bilateral interstitial airspace disease similar to prior exam in June. This m ay represent recurrent edema. TECHNICAL DOCUMENTATION: JOB ID: [id number] [employer]- All Rights Reserved Reading location - IP/workstation name: [email or web address]
[2019-09-22] MEDS ORDERED: NORMAL SALINE 500 ML IV ONE (12:33)
[2019-09-22] MEDS ORDERED: NORMAL SALINE 250 ML IV ONE (12:36)
--- NOTE | 2019-09-22 12:37 | ER Document Report ---
ED General - General Chief Complaint: Breathing Difficulty Stated Complaint: DIFFICULTY BREATHING Time Seen by Provider: 09/22/19 12:04 Primary Care Provider: JOHN CANNON MD [Primary Care Provider] - Follow up as needed Notes: -year-old female who presents to the emergency department with a chief complaint of difficulty breathing. She states that she has had difficulty breathing for the past 3 days. Patient does not normally wear oxygen, but is requiring oxygen here in the emergency department. TRAVEL OUTSIDE OF THE [place] IN LAST 30 DAYS: No - Related Data Allergies/Adverse Reactions: cilastatin [From Primaxin IV] Allergy (Intermediate, Verified 09/22/19 11:16) Facial swelling imipenem [From Primaxin IV] Allergy (Intermediate, Verified 09/22/19 11:16) Facial swelling Penicillins Allergy (Mild, Verified 09/22/19 11:16) Generalized rash Sulfa (Sulfonamide Antibiotics) Allergy (Mild, Verified 09/22/19 11:16) Generalized rash Past Medical History - Social History Smoking Status: Current Every Day Smoker Frequency of alcohol use: None Drug Abuse: None Family History: DM, Hypertension Patient has suicidal ideation: No Patient has homicidal ideation: No - Past Medical History Cardiac Medical History: Reports: Hx Hypercholesterolemia, Hx Hypertension Denies: Hx Atrial Fibrillation, Hx Congestive Heart Failure, Hx Coronary Artery Disease, Hx Heart Attack, Hx Peripheral Vascular Disease, Hx Pulmonary Embolism, Hx Heart Murmur Pulmonary Medical History: Reports: Hx COPD, Hx Pneumonia Denies: Hx Asthma, Hx Bronchitis, Hx Respiratory Failure, Hx Sleep Apnea, Hx Tuberculosis Neurological Medical History: Reports: Hx Cerebrovascular Accident. Denies: Hx Seizures, Hx Parkinson's Disease Endocrine Medical History: Reports: Hx Diabetes Mellitus Type 2, Hx Hypothyroidism. Denies: Hx Diabetes Mellitus Type 1, Hx Graves' Disease, Hx Hyperthyroidism Renal/ Medical History: Denies: Hx Ovarian Cysts, Hx Peritoneal Dialysis, Hx Pelvic Inflammatory Disease Malignancy Medical History: Reports: Hx Ovarian Cancer. Denies: Hx Breast Cancer, Hx Cervical Cancer, Hx Leukemia, Hx Lung Cancer GI Medical History: Reports: Hx Gastroesophageal Reflux Disease, Hx Ulcer, Hx Endoscopy. Denies: Hx Cirrhosis, Hx Crohn's Disease, Hx Hepatitis, Hx Hiatal Hernia, Hx Irritable Bowel, Hx Liver Failure, Hx Pancreatitis Musculoskeletal Medical History: Reports Hx Arthritis, Denies Hx Fibromyalgia, Denies Hx Multiple Sclerosis, Denies Hx Muscular Dystrophy, Denies Hx Systemic Lupus Erythematosus Skin Medical History: Denies Hx Eczema, Denies Hx Psoriasis Psychiatric Medical History: Reports: Hx Anxiety, Hx Bipolar Disorder, Hx Depression, Hx Schizophrenia Denies: Hx Dementia, Hx Post Traumatic Stress Disorder Traumatic Medical History: Reports: Hx Fractures - 3 fx, left hip fx 10/2017. Denies: Hx Pneumothorax Infectious Medical History: Denies: Hx Hepatitis, Hx HIV Past Surgical History: Reports: Hx Abdominal Surgery - gastric bypass, reversal, Hx Cholecystectomy, Hx Gastric Bypass Surgery, Hx Hysterectomy, Hx Orthopedic Surgery - LLE, left jaw, total left hip arthroplasty on 09/08/2018.. Denies: Hx Appendectomy, Hx Bowel Surgery, Hx Section, Hx Colostomy, Hx Coronary Artery Bypass Graft, Hx Herniorrhaphy, Hx Mastectomy, Hx Pacemaker, Hx Tonsillectomy, Hx Tubal Ligation - Immunizations Immunizations up to date: Yes Hx Diphtheria, Pertussis, Tetanus Vaccination: Yes Physical Exam - Vital signs Vitals: Pulse Ox 81 L 09/22/19 11:08 Course - Vital Signs Vital signs: Temp Pulse Resp BP Pulse Ox 26 H 64/42 L 90 L 09/22/19 11:15 09/22/19 11:15 09/22/19 11:15 - Laboratory Laboratory results interpreted by me: 09/22/19 11:20 POC Glucose 118 H Discharge - Discharge Referrals: JOHN CANNON MD [Primary Care Provider] - Follow up as needed
--- NOTE | 2019-09-22 12:57 | ER Document Report ---
ED General - General Chief Complaint: Breathing Difficulty Stated Complaint: DIFFICULTY BREATHING Time Seen by Provider: 09/22/19 12:04 Primary Care Provider: JOHN CANNON MD [Primary Care Provider] - Follow up as needed Notes: HPI: 49-year-old female who presents today stating around 2 days ago she developed some substernal chest discomfort with cough, yellow phlegm, and a fever of 102. She states some nasal congestion. She denies a headache, neck pain, sore throat, abdominal pain, back pain, or dysuria. Vomiting x2 without diarrhea. Patient has an extensive past medical history as recorded. Echo in 2018 shows an EF of 65%. Patient was admitted and discharged for possible bilateral pneumonia around 2 months ago. Patient also has adrenal insufficiency and follows the wound care management clinic secondary to some ulcerations of the left lower extremity. She states that these ulcerations appear to be healing well with no new swelling or erythema noted. ROS: See HPI All other review of systems reviewed and otherwise negative Reviewed vital signs and nursing note as charted by RN. PHYSICAL EXAM: CONSTITUTIONAL: Alert and oriented and responds appropriately to questions. Well-appearing; well-nourished HEAD: Normocephalic; atraumatic EYES: PERRL; Conjunctivae clear, sclerae non-icteric ENT: Normal nose; bilateral nonpurulent nasal rhinorrhea; moist mucous membranes; pharynx without lesions noted NECK: Supple without meningismus; non-tender; no cervical lymphadenopathy, no masses CARD: Regular rate and rhythm; no murmurs; symmetric distal pulses RESP: Normal chest excursion without splinting or tachypnea; breath sounds clear and equal bilaterally; scattered rhonchi without wheezing or rales ABD/GI: Normal bowel sounds; non-distended; soft, non-tender to deep palpation of all 4 quadrants of the abdomen BACK: The back appears normal and is non-tender to palpation EXT: Left leg is wrapped currently with no obvious swelling or edema appreciated SKIN: We will unwrap the left leg NEURO: CN 2-12 intact; 5/5 bilateral upper and lower extremity strength with sensation intact to light touch PSYCH: The patient's mood and manner are appropriate. Grooming and personal hygiene are appropriate. TRAVEL OUTSIDE OF THE [place] IN LAST 30 DAYS: No - Related Data Allergies/Adverse Reactions: cilastatin [From Primaxin IV] Allergy (Intermediate, Verified 09/22/19 11:16) Facial swelling imipenem [From Primaxin IV] Allergy (Intermediate, Verified 09/22/19 11:16) Facial swelling Penicillins Allergy (Mild, Verified 09/22/19 11:16) Generalized rash Sulfa (Sulfonamide Antibiotics) Allergy (Mild, Verified 09/22/19 11:16) Generalized rash Past Medical History - Social History Smoking Status: Current Every Day Smoker Frequency of alcohol use: None Drug Abuse: None Family History: DM, Hypertension Patient has suicidal ideation: No Patient has homicidal ideation: No - Past Medical History Cardiac Medical History: Reports: Hx Hypercholesterolemia, Hx Hypertension Denies: Hx Atrial Fibrillation, Hx Congestive Heart Failure, Hx Coronary Artery Disease, Hx Heart Attack, Hx Peripheral Vascular Disease, Hx Pulmonary Embolism, Hx Heart Murmur Pulmonary Medical History: Reports: Hx COPD, Hx Pneumonia Denies: Hx Asthma, Hx Bronchitis, Hx Respiratory Failure, Hx Sleep Apnea, Hx Tuberculosis Neurological Medical History: Reports: Hx Cerebrovascular Accident. Denies: Hx Seizures, Hx Parkinson's Disease Endocrine Medical History: Reports: Hx Diabetes Mellitus Type 2, Hx Hypothyroidism. Denies: Hx Diabetes Mellitus Type 1, Hx Graves' Disease, Hx Hyperthyroidism Renal/ Medical History: Denies: Hx Ovarian Cysts, Hx Peritoneal Dialysis, Hx Pelvic Inflammatory Disease Malignancy Medical History: Reports: Hx Ovarian Cancer. Denies: Hx Breast Cancer, Hx Cervical Cancer, Hx Leukemia, Hx Lung Cancer GI Medical History: Reports: Hx Gastroesophageal Reflux Disease, Hx Ulcer, Hx Endoscopy. Denies: Hx Cirrhosis, Hx Crohn's Disease, Hx Hepatitis, Hx Hiatal Hernia, Hx Irritable Bowel, Hx Liver Failure, Hx Pancreatitis Musculoskeletal Medical History: Reports Hx Arthritis, Denies Hx Fibromyalgia, Denies Hx Multiple Sclerosis, Denies Hx Muscular Dystrophy, Denies Hx Systemic Lupus Erythematosus Skin Medical History: Denies Hx Eczema, Denies Hx Psoriasis Psychiatric Medical History: Reports: Hx Anxiety, Hx Bipolar Disorder, Hx Depression, Hx Schizophrenia Denies: Hx Dementia, Hx Post Traumatic Stress Disorder Traumatic Medical History: Reports: Hx Fractures - 3 fx, left hip fx 10/2017. Denies: Hx Pneumothorax Infectious Medical History: Denies: Hx Hepatitis, Hx HIV Past Surgical History: Reports: Hx Abdominal Surgery - gastric bypass, reversal, Hx Cholecystectomy, Hx Gastric Bypass Surgery, Hx Hysterectomy, Hx Orthopedic Surgery - LLE, left jaw, total left hip arthroplasty on 09/08/2018.. Denies: Hx Appendectomy, Hx Bowel Surgery, Hx Section, Hx Colostomy, Hx Coronary Artery Bypass Graft, Hx Herniorrhaphy, Hx Mastectomy, Hx Pacemaker, Hx T onsillectomy, Hx Tubal Ligation - Immunizations Immunizations up to date: Yes Hx Diphtheria, Pertussis, Tetanus Vaccination: Yes Physical Exam - Vital signs Vitals: Pulse Ox 81 L 09/22/19 11:08 Course - Re-evaluation Re-evalutation: Given the history and physical examination, with history as recorded, I will provide a dose of hydrocortisone, obtain an x-ray of the chest, blood cultures, lactic acid, and provide fluids. No history of heart failure according to the patient's report, recent charts, and previous echo. 09/22/19 12:57 EKG shows a heart rate of 85, normal sinus rhythm, left axis deviation, poor R wave progression, no ST elevation or depression 09/22/19 15:25 X-ray imaging as recorded. Blood cultures have been sent. White blood cell count is elevated. Lactic acid 0.7. I have called and spoken directly to the primary care physician. Repeat blood pressure was 80/50. Patient is still not tachycardic. Long history of relatively low blood pressures. Primary care physician is comfortable with Rocephin and azithromycin and to admit the patient to the IMCU. Given the patient's fever of 102, infiltrates as recorded, I do believe pulmonary embolism to be less likely than a pneumonia. - Vital Signs Vital signs: Temp Pulse Resp BP Pulse Ox 98.6 F 22 H 78/47 L 95 09/22/19 11:15 09/22/19 14:30 09/22/19 14:30 09/22/19 14:30 - Laboratory Result Diagrams: 09/22/19 13:20 09/22/19 13:20 Laboratory results interpreted by me: 09/22/19 09/22/19 09/22/19 11:20 13:20 13:20 WBC 20.5 H RBC 3.67 L Hgb 11.6 L Hct 35.7 L RDW 14.6 H Seg Neuts % (Manual) 90 H Lymphocytes % (Manual) 2 L Abs Neuts (Manual) 19.3 H Abs Lymphs (Manual) 0.4 L Sodium 136.0 L Potassium 3.3 L Carbon Dioxide 19 L BUN 26 H Creatinine 1.38 H Est GFR ( Amer) 49 L Est GFR (MDRD) Non-Af 40 L Glucose 114 H POC Glucose 118 H AST 43 H Alkaline Phosphatase 233 H NT-Pro-B Natriuret Pep Total Protein 6.2 L Albumin 3.2 L 09/22/19 13:20 WBC RBC Hgb Hct RDW Seg Neuts % (Manual) Lymphocytes % (Manual) Abs Neuts (Manual) Abs Lymphs (Manual) Sodium Potassium Carbon Dioxide BUN Creatinine Est GFR ( Amer) Est GFR (MDRD) Non-Af Glucose POC Glucose AST Alkaline Phosphatase NT-Pro-B Natriuret Pep 177 H Total Protein Albumin Critical Care Note - Critical Care Note Total time excluding time spent on procedures (mins): 35 Discharge - Discharge Clinical Impression: Low blood potassium Bilateral pneumonia Qualifiers: Pneumonia type: due to unspecified organism Lung location: unspecified part of lung Qualified Code(s): J18.9 - Pneumonia, unspecified organism Low blood pressure Qualifiers: Hypotension type: unspecified hypotension type Qualified Code(s): I95.9 - Hypotension, unspecified Condition: Fair Disposition: ADMITTED INPATIENT Admitting Provider: [facility] Admitted: IMCU Referrals: JOHN CANNON MD [Primary Care Provider] - Follow up as needed
[2019-09-22] MEDS ORDERED: HYDROCORTISONE SOD SUCCINATE INJ/PF 100 MG/2 ML SDV IV ONE (13:02)
[2019-09-22] MEDS ORDERED: NORMAL SALINE 1000 ML 1,000 ML IV ONE (13:09)
[2019-09-22 13:48] LABS: INTERNATIONAL RATION (INR) 1.04; PROTHROMBIN TIME 13.6 SEC (11.4-15.4)
[2019-09-22 13:53] LABS: HEMATOCRIT 35.7 % (36.0-47.0); HEMOGLOBIN 11.6 g/dL (12.0-15.5); MEAN CORPUSCULAR HEMOGLOBIN 31.6 pg (27.0-33.4); MEAN CORPUSCULAR HGB CONC 32.5 g/dL (32.0-36.0); MEAN CORPUSCULAR VOLUME 97 fl (80-97); PLATELET COUNT 203 10^3/uL (150-450); RED BLOOD COUNT 3.67 10^6/uL (3.72-5.28); RED CELL DISTRIBUTION WIDTH 14.6 % (11.5-14.0); WHITE BLOOD COUNT 20.5 10^3/uL (4.0-10.5)
[2019-09-22 14:03] LABS: ALBUMIN 3.2 g/dL (3.5-5.0); ALKALINE PHOSPHATASE 233 U/L (38-126); ANION GAP 13 (5-19); ASPARTATE AMINO TRANSFERASE 43 U/L (14-36); BILIRUBIN,DIRECT 0.3 mg/dL (0.0-0.4); BILIRUBIN,TOTAL 0.3 mg/dL (0.2-1.3); BLOOD UREA NITROGEN 26 mg/dL (7-20); CALCIUM 8.4 mg/dL (8.4-10.2); CARBON DIOXIDE 19 mmol/L (22-30); CHLORIDE 104 mmol/L (98-107); GLUCOSE 114 mg/dL (75-110); POTASSIUM 3.3 mmol/L (3.6-5.0); TOTAL PROTEIN 6.2 g/dL (6.3-8.2)
[2019-09-22 14:29] LABS: ABSOLUTE LYMPHOCYTES# (MANUAL) 0.4 10^3/uL (0.5-4.7); ABSOLUTE MONOCYTES # (MANUAL) 0.8 10^3/uL (0.1-1.4); BAND NEUTROPHILS % (MANUAL) 4 % (3-5); BASOPHILS % (MANUAL) 0 % (0-2); EOSINOPHILS % (MANUAL) 0 % (0-6); LYMPHOCYTES % (MANUAL) 2 % (13-45); MONOCYTES % (MANUAL) 4 % (3-13); SEGMENTED NEUTROPHILS % (MAN) 90 % (42-78); TOTAL CELLS COUNTED 100
[2019-09-22 14:31] LABS: ANISOCYTOSIS SLIGHT; PLATELET COMMENT ADEQUATE
[2019-09-22] MEDS ORDERED: POTASSI CL 20 MEQ/50 ML RIDER 20 MEQ/50 ML RTUPB IV ONE (15:25)
--- NOTE | 2019-09-22 16:19 | EKG REPORT ---
SEVERITY:- BORDERLINE ECG - SINUS RHYTHM BORDERLINE LEFT AXIS DEVIATION BORDERLINE R WAVE PROGRESSION, ANTERIOR LEADS : Confirmed by: Maria Esther Ortega MD 22-Sep-2019 16:17:56
[2019-09-22] MEDS ORDERED: DOPAMINE HCL/DEXTROSE 5%-WATER 800 MG/250 ML RTUINJ IV PRN (17:01)
[2019-09-22] MEDS ORDERED: VANCOMYCIN HCL 0 MG in DEXTROSE 5%-WATER 250 ML IV NR (17:15)
[2019-09-22] MEDS ORDERED: AZTREONAM 1.5 GM in DEXTROSE 5%-WATER 100 ML IV SCH (17:30)
[2019-09-22] MEDS: RINGERS SOLUTION,LACTATED 1,000 ML IV PRN (18:02)
[2019-09-22] MEDS: DOPAMINE HCL/DEXTROSE 5%-WATER 800 MG/250 ML RTUINJ IV PRN ×2 (18:09→18:23)
[2019-09-22] MEDS: AZTREONAM 1 GM in DEXTROSE 5%-WATER 50 ML IV SCH (18:38)
[2019-09-22 19:35] LABS: NT PRO BNP 553 pg/mL (<125)
[2019-09-22 19:40] LABS: CREATINE KINASE MB < 0.22 ng/mL (<4.55)
[2019-09-22] MEDS ORDERED: VANCOMYCIN HCL 1,000 MG in DEXTROSE 5%-WATER 250 ML IV SCH (20:00)
[2019-09-22] MEDS: HEPARIN SOD (PORCINE) 5,000 UNIT/ML 1 ML VIAL SUBCUT SCH (21:41)
[2019-09-22] MEDS: HYDROCORTISONE SOD SUCCINATE INJ/PF 100 MG/2 ML SDV IV SCH (21:41)
--- NOTE | 2019-09-22 21:47 | PDOC H&P ---
History of Present Illness Admission Date/PCP: 09/22/19 15:42 JOHN CANNON MD History of Present Illness: [place] is a 49 year old female, She came to the emergency room for eval uation of chest pain, cough and fever. She has these symptoms for the last few days, a chest x-ray was done in the emergency room, it demonstrated diffuse bilateral interstitial airspace disease there was severe leukocytosis WBC was 20,000 with profound hypotension. 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 She was supposed to come to the office to confirm if she has Trego's disease or not. 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 She was seeing a physician in [facility] previously that prescribed fludrocortisone and p resently she is also taking antihypertensive medication which is weird considering the fact that she has persistent chronic hypotension Past Medical History Cardiac Medical History: Reports: Hyperlipidema, Hypertension Pulmonary Medical History: Reports: Chronic Obstructive Pulmonary Disease (COPD), Pneumonia Malignancy Medical History: Reports: Ovarian Cancer GI Medical History: Reports: Gastroesophageal Reflux Disease Musculoskeltal Medical History: Reports: Arthritis Denies: Fibromyalgia Psychiatric Medical History: Reports: Bipolar Disorder, Depression Hematology: Reports: Anemia Infectious Medical History: Denies: HIV Past Surgical History Past Surgical History: Reports: Cholecystectomy, Gastric Bypass Surgery, Hysterectomy, Orthopedic Surgery - LLE, left jaw, total left hip arthroplasty on 09/08/2018. Social History Smoking Status: Current Every Day Smoker Cigarettes Packs Per Day: 1 Electronic Cigarette use?: No Frequency of Alcohol Use: None Hx Recreational Drug Use: No Drugs: None Hx Prescription Drug Abuse: No Family History Family History: DM, Hypertension Parental Family History Reviewed: Yes Children Family History Reviewed: Yes Sibling(s) Family History Reviewed.: Yes Medication/Allergy Home Medications: Alprazolam [Xanax 0.25 mg Tablet] 0.25 mg PO Q8 07/03/19 Benztropine Mesylate [Cogentin 1 mg Tablet] 1 mg PO DAILY 07/03/19 Esomeprazole Mag Trihydrate [Nexium] 40 mg PO DAILY 07/03/19 Fluticasone/Umeclidin/Vilanter [Trelegy 100-62.5-25 Mcg Ellipta 14 Dose/Dpi] 1 inh IH DAILY 07/03/19 Gabapentin [Neurontin 300 mg Capsule] 300 mg PO Q8 07/03/19 Levothyroxine Sodium [Synthroid 0.088 mg Tablet] 0.088 mg PO Q6AM 07/03/19 Lurasidone HCl [Latuda 40 mg Tablet] 40 mg PO DAILY 07/03/19 Naloxegol Oxalate [Movantik 25 mg Tablet] 25 mg PO QAM 07/03/19 Potassium Chloride [Klor-Con 10 Meq Capsule ER] 20 meq PO DAILY 07/03/19 Sertraline HCl [Zoloft 50 mg Tablet] 100 mg PO DAILY 07/03/19 Amitriptyline HCl [Elavil 50 mg Tablet] 50 mg PO QHS 09/22/19 Aspirin [Ecotrin 81 mg EC Tablet] 81 mg PO DAILY 09/22/19 Biotin [Biotin 5 mg Tablet] 5 mg PO DAILY PRN 09/22/19 Carvedilol [Coreg 3.125 mg Tablet] 3.125 mg PO DAILY 09/22/19 Furosemide [Lasix 40 mg Tablet] 40 mg PO BID 09/22/19 Ibuprofen [Motrin 800 mg Tablet] 800 mg PO Q8HP PRN 09/22/19 Lisinopril [Prinivil 2.5 mg Tablet] 2.5 mg PO DAILY 09/22/19 Multivitamin [Tab-A-Jose (Multiple Vitamin) Tablet] 1 tab PO DAILY 09/22/19 Oxycodone HCl [Oxy-Ir 5 mg Tablet] 10 mg PO Q6HP PRN 09/22/19 Phentermine HCl 15 mg PO QAM 09/22/19 Varenicline Tartrate [Chantix 1 mg Tablet] 1 mg PO Q12 09/22/19 Allergies/Adverse Reactions: cilastatin [From Primaxin IV] Allergy (Intermediate, Verified 09/22/19 11:16) Facial swelling imipenem [From Primaxin IV] Allergy (Intermediate, Verified 09/22/19 11:16) Facial swelling Penicillins Allergy (Mild, Verified 09/22/19 11:16) Generalized rash Sulfa (Sulfonamide Antibiotics) Allergy (Mild, Verified 09/22/19 11:16) Generalized rash Review of Systems Constitutional: ABSENT: chills, fever(s), headache(s), weight gain, weight loss Eyes: ABSENT: visual disturbances Ears: ABSENT: hearing changes Cardiovascular: ABSENT: chest pain, dyspnea on exertion, edema, orthropnea, palpitations Respiratory: PRESENT: cough, sputum. ABSENT: hemoptysis Gastrointestinal: ABSENT: abdominal pain, constipation, diarrhea, hematemesis, hematochezia, nausea, vomiting Genitourinary: ABSENT: dysuria, hematuria Musculoskeletal: ABSENT: joint swelling Integumentary: ABSENT: rash, wounds Neurological: ABSENT: abnormal gait, abnormal speech, confusion, dizziness, focal weakness, syncope Psychiatric: ABSENT: anxiety, depression, homidical ideation, suicidal ideation Endocrine: ABSENT: cold intolerance, heat intolerance, menstrual abnormalities, polydipsia, polyuria Hematologic/Lymphatic: ABSENT: easy bleeding, easy bruising, lymphadenopathy Physical Exam Vital Signs: Temp Pulse Resp BP Pulse Ox 97.8 F 86 18 73/44 L 96 09/22/19 17:54 09/22/19 19:00 09/22/19 17:54 09/22/19 18:45 09/22/19 17:54 Intake & Output 09/21/19 09/22/19 09/23/19 06:59 06:59 06:59 Intake Total 1300 Balance 1300 Weight 63.5 kg General appearance: PRESENT: no acute distress, well-developed, well-nourished Head exam: PRESENT: atraumatic, normocephalic Eye exam: PRESENT: conjunctiva pink, EOMI, PERRLA Ear exam: PRESENT: normal external ear exam Mouth exam: PRESENT: moist, tongue midline Neck exam: PRESENT: full ROM Respiratory exam: PRESENT: rhonchi Cardiovascular exam: PRESENT: RRR, +S1, +S2 Pulses: PRESENT: normal dorsalis pedis pul, +2 pedal pulses bilateral Vascular exam: PRESENT: normal capillary refill GI/Abdominal exam: PRESENT: normal bowel sounds, soft Rectal exam: PRESENT: deferred Neurological exam: PRESENT: alert, awake, oriented to person, oriented to place, oriented to time, oriented to situation, CN II-XII grossly intact Psychiatric exam: PRESENT: appropriate affect, normal mood Skin exam: PRESENT: dry, intact, warm Results Laboratory Results: 09/22/19 13:20 09/22/19 13:20 09/22/19 09/22/19 09/22/19 13:20 13:20 13:20 WBC 20.5 H RBC 3.67 L Hgb 11.6 L Hct 35.7 L MCV 97 MCH 31.6 MCHC 32.5 RDW 14.6 H Plt Count 203 Seg Neutrophils % Not Reportable Sodium 136.0 L Potassium 3.3 L Chloride 104 Carbon Dioxide 19 L Anion Gap 13 BUN 26 H Creatinine 1.38 H Est GFR ( Amer) 49 L Glucose 114 H Lactic Acid 0.7 Calcium 8.4 Total Bilirubin 0.3 AST 43 H Alkaline Phosphatase 233 H Total Protein 6.2 L Albumin 3.2 L 09/22/19 09/22/19 09/22/19 13:20 18:34 18:34 Creatine Kinase 62 CK-MB (CK-2) < 0.22 NT-Pro-B Natriuret Pep 177 H 553 H Impressions: Chest X-Ray 09/22/19 11:08 IMPRESSION: Diffuse bilateral interstitial airspace disease similar to prior ex am in June. This may represent recurrent edema. Assessment & Plan - Diagnosis (1) Bilateral pneumonia Qualifiers: Pneumonia type: due to unspecified organism Lung location: unspecified part of lung Qualified Code(s): J18.9 - Pneumonia, unspecified organism Is this a current diagnosis for this admission?: Yes Plan: She has pneumonia, history of beta-lactam allergy, history of MRSA, she will empirically be treated with IV aztreonam, vancomycin (2) Hypotension Qualifiers: Hypotension type: idiopathic hypotension Qualified Code(s): I95.0 - Idiopathic hypotension Is this a current diagnosis for this admission?: Yes Plan: She has profound hypotension 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
[2019-09-23] MEDS: AZTREONAM 1 GM in DEXTROSE 5%-WATER 50 ML IV SCH ×3 (02:04→17:43)
[2019-09-23] MEDS: HEPARIN SOD (PORCINE) 5,000 UNIT/ML 1 ML VIAL SUBCUT SCH ×3 (05:44→21:57)
[2019-09-23] MEDS: HYDROCORTISONE SOD SUCCINATE INJ/PF 100 MG/2 ML SDV IV SCH ×3 (05:44→21:57)
[2019-09-23 07:13] LABS: ALBUMIN 3.1 g/dL (3.5-5.0); ALKALINE PHOSPHATASE 191 U/L (38-126); ANION GAP 10 (5-19); ASPARTATE AMINO TRANSFERASE 49 U/L (14-36); BILIRUBIN,DIRECT 0.2 mg/dL (0.0-0.4); BILIRUBIN,TOTAL 0.3 mg/dL (0.2-1.3); BLOOD UREA NITROGEN 30 mg/dL (7-20); CALCIUM 8.3 mg/dL (8.4-10.2); CARBON DIOXIDE 18 mmol/L (22-30); CHLORIDE 113 mmol/L (98-107); GLUCOSE 143 mg/dL (75-110); TOTAL PROTEIN 6.2 g/dL (6.3-8.2)
[2019-09-23 07:18] LABS: ABSOLUTE LYMPHOCYTES (AUTO) 0.7 10^3/uL (0.5-4.7); ABSOLUTE MONOCYTES (AUTO) 0.3 10^3/uL (0.1-1.4); ABSOLUTE NEUT (AUTO) 13.1 10^3/uL (1.7-8.2); BASOPHILS % (AUTO) 0.1 % (0-2); HEMATOCRIT 35.4 % (36.0-47.0); HEMOGLOBIN 11.5 g/dL (12.0-15.5); LYMPHOCYTES % (AUTO) 5.1 % (13-45); MEAN CORPUSCULAR HEMOGLOBIN 31.6 pg (27.0-33.4); MEAN CORPUSCULAR HGB CONC 32.6 g/dL (32.0-36.0); MEAN CORPUSCULAR VOLUME 97 fl (80-97); MONOCYTES % (AUTO) 1.9 % (3-13); PLATELET COUNT 213 10^3/uL (150-450); RED BLOOD COUNT 3.65 10^6/uL (3.72-5.28); RED CELL DISTRIBUTION WIDTH 14.4 % (11.5-14.0); SEGMENTED NEUTROPHILS % (AUTO) 92.9 % (42-78); TOTAL CELLS COUNTED % (AUTO) 100 %; WHITE BLOOD COUNT 14.1 10^3/uL (4.0-10.5)
[2019-09-23 07:28] LABS: POTASSIUM 4.4 mmol/L (3.6-5.0)
[2019-09-23 07:58] LABS: APPEARANCE,URINE CLEAR; BILIRUBIN,URINE NEGATIVE (NEGATIVE); COLOR,URINE YELLOW; GLUCOSE, URINE NEGATIVE (NEGATIVE); KETONES,URINE NEGATIVE (NEGATIVE); LEUKOCYTE ESTERASE,URINE NEGATIVE (NEGATIVE); NITRITE,URINE NEGATIVE (NEGATIVE); PROTEIN,URINE NEGATIVE (NEGATIVE); URINE SPECIFIC GRAVITY 1.015; UROBILINOGEN,URINE NEGATIVE mg/dL (<2.0)
[2019-09-23] MEDS: RINGERS SOLUTION,LACTATED 1,000 ML IV PRN ×2 (09:09→23:13)
[2019-09-23] MEDS: VANCOMYCIN HCL 1,250 MG in DEXTROSE 5%-WATER 250 ML IV SCH (09:44)
[2019-09-23] MEDS ORDERED: FUROSEMIDE INJ/PF 40 MG/4 ML SDV IV ONE (21:09)
--- NOTE | 2019-09-23 21:09 | PDOC PROGRESS REPORT ---
Subjective Progress Note for:: 09/23/19 Subjective:: Patient seen with the bedside Reason For Visit: DIFFUSE BILATERAL PNEUMONIA,PROFOUND HYPOTENSION, Physical Exam Vital Signs: Temp Pulse Resp BP Pulse Ox 99.4 F 80 22 H 99/42 L 96 09/23/19 19:45 09/23/19 19:45 09/23/19 19:45 09/23/19 19:45 09/23/19 19:45 Intake & Output 09/22/19 09/23/19 09/24/19 06:59 06:59 06:59 Intake Total 2750 650 Output Total 400 700 Balance 2350 -50 Weight 69 kg General appearance: PRESENT: no acute distress Eye exam: PRESENT: PERRLA Respiratory exam: PRESENT: clear to auscultation rona Cardiovascular exam: PRESENT: +S1, +S2 GI/Abdominal exam: PRESENT: soft Neurological exam: PRESENT: alert Results Laboratory Results: 09/23/19 04:15 09/23/19 04:15 09/23/19 09/23/19 09/23/19 04:15 04:15 06:37 WBC 14.1 H RBC 3.65 L Hgb 11.5 L Hct 35.4 L MCV 97 MCH 31.6 MCHC 32.6 RDW 14.4 H Plt Count 213 Seg Neutrophils % 92.9 H Sodium 140.8 Potassium 4.4 D Chloride 113 H Carbon Dioxide 18 L Anion Gap 10 BUN 30 H Creatinine 1.05 Est GFR ( Amer) > 60 Glucose 143 H Calcium 8.3 L Total Bilirubin 0.3 AST 49 H Alkaline Phosphatase 191 H Total Protein 6.2 L Albumin 3.1 L Urine Color YELLOW Urine Appearance CLEAR Urine pH 5.0 Ur Specific [place] 1.015 Urine Protein NEGATIVE Urine Glucose (UA) NEGATIVE Urine Ketones NEGATIVE Urine Blood NEGATIVE Urine Nitrite NEGATIVE Ur Leukocyte Esterase NEGATIVE Urine WBC (Auto) 1 09/23/19 12:50 Sputum Gram Stain - Final 09/23/19 12:50 Sputum Sputum Culture - Final 09/22/19 09/22/19 09/22/19 13:20 18:34 18:34 Creatine Kinase 62 CK-MB (CK-2) < 0.22 NT-Pro-B Natriuret Pep 177 H 553 H Impressions: Chest X-Ray 09/22/19 11:08 IMPRESSION: Diffuse bilateral interstitial airspace disease similar to prior exam in June. This may represent recurrent edema. Assessment & Plan - Diagnosis (1) Bilateral pneumonia Qualifiers: Pneumonia type: due to unspecified organism Lung location: unspecified part of lung Qualified Code(s): J18.9 - Pneumonia, unspecified organism Is this a current diagnosis for this admission?: Yes Plan: Continue IV antibiotic (2) Hypotension Qualifiers: Hypotension type: idiopathic hypotension Qualified Code(s): I95.0 - Idiopathic hypotension Is this a current diagnosis for this admission?: Yes Plan: She continues to require dopamine infusion (3) Adrenal insufficiency Is this a current diagnosis for this admission?: Yes Plan: Continue stress dose hydrocortisone (4) Chronic ulcer of left leg Qualifiers: Non-pressure ulcer stage: with fat layer exposed Qualified Code(s): L97.922 - Non-pressure chronic ulcer of unspecified part of left lower leg with fat layer exposed Is this a current diagnosis for this admission?: Yes Plan: Ulcer is healing nicely - Time Time Spent with patient: 35 or more minutes
[2019-09-23] MEDS: VARENICLINE TARTRATE 1 MG TABLET PO SCH (21:57)
[2019-09-23] MEDS: ALPRAZOLAM 0.25 MG TABLET PO SCH (21:57)
[2019-09-23] MEDS: SERTRALINE HCL 50 MG TABLET PO SCH (21:57)
[2019-09-23] MEDS ORDERED: AMITRIPTYLINE HCL 50 MG TABLET PO SCH (22:00)
[2019-09-24] MEDS: AZTREONAM 1 GM in DEXTROSE 5%-WATER 50 ML IV SCH ×3 (01:10→17:55)
[2019-09-24] MEDS: HYDROCORTISONE SOD SUCCINATE INJ/PF 100 MG/2 ML SDV IV SCH ×3 (05:42→21:25)
[2019-09-24] MEDS: HEPARIN SOD (PORCINE) 5,000 UNIT/ML 1 ML VIAL SUBCUT SCH ×3 (05:42→21:28)
[2019-09-24] MEDS: ALPRAZOLAM 0.25 MG TABLET PO SCH ×3 (05:43→21:29)
[2019-09-24] MEDS: LEVOTHYROXINE SODIUM 0.088 MG TABLET PO SCH (05:43)
[2019-09-24 07:13] LABS: ABSOLUTE LYMPHOCYTES (AUTO) 1.5 10^3/uL (0.5-4.7); ABSOLUTE MONOCYTES (AUTO) 0.4 10^3/uL (0.1-1.4); ABSOLUTE NEUT (AUTO) 10.7 10^3/uL (1.7-8.2); BASOPHILS % (AUTO) 0.1 % (0-2); EOSINOPHILS % (AUTO) 0.3 % (0-6); HEMATOCRIT 33.4 % (36.0-47.0); MEAN CORPUSCULAR HEMOGLOBIN 31.4 pg (27.0-33.4); MEAN CORPUSCULAR HGB CONC 32.8 g/dL (32.0-36.0); MEAN CORPUSCULAR VOLUME 96 fl (80-97); MONOCYTES % (AUTO) 3.3 % (3-13); PLATELET COUNT 257 10^3/uL (150-450); RED BLOOD COUNT 3.49 10^6/uL (3.72-5.28); RED CELL DISTRIBUTION WIDTH 14.3 % (11.5-14.0); SEGMENTED NEUTROPHILS % (AUTO) 84.3 % (42-78); TOTAL CELLS COUNTED % (AUTO) 100 %; WHITE BLOOD COUNT 12.6 10^3/uL (4.0-10.5)
[2019-09-24 07:33] LABS: ALKALINE PHOSPHATASE 172 U/L (38-126); ANION GAP 6 (5-19); ASPARTATE AMINO TRANSFERASE 22 U/L (14-36); BILIRUBIN,DIRECT 0.1 mg/dL (0.0-0.4); BILIRUBIN,TOTAL 0.2 mg/dL (0.2-1.3); BLOOD UREA NITROGEN 14 mg/dL (7-20); CALCIUM 8.4 mg/dL (8.4-10.2); CARBON DIOXIDE 27 mmol/L (22-30); CHLORIDE 109 mmol/L (98-107); GLUCOSE 119 mg/dL (75-110); POTASSIUM 3.3 mmol/L (3.6-5.0)
[2019-09-24] MEDS ORDERED: (PENDING PHARMACY ID) (Naloxegol Oxalate 25 MG) PO SCH (08:00)
--- NOTE | 2019-09-24 09:45 | RADIOLOGY REPORT (SQ) ---
EXAM DESCRIPTION: CHEST SINGLE VIEW COMPLETED DATE/TIME: 09/24/2019 9:36 am REASON FOR STUDY: pneumonia COMPARISON: 09/22/2019 EXAM PARAMETERS: NUMBER OF VIEWS: One view. TECHNIQUE: Single frontal radiographic view of the chest acquired. RADIATION DOSE: NA LIMITATIONS: None. FINDINGS: LUNGS AND PLEURA: There a rome is improved bilaterally most consistent with resolving gayle a. No consolidation or effusions. MEDIASTINUM AND HILAR STRUCTURES: No masses. Contour normal. HEART AND VASCULAR STRUCTURES: Stable in appearance. BONES: No acute findings. HARDWARE: None in the chest. OTHER: No other significant finding. IMPRESSION: Significantly improved aeration bilaterally most consistent with resolving interstitial edema. TECHNICAL DOCUMENTATION: JOB ID: [id number] [employer]- All Rights Reserved Reading location - IP/workstation name: [email or web address]
[2019-09-24] MEDS: VARENICLINE TARTRATE 1 MG TABLET PO SCH ×2 (10:16→21:29)
[2019-09-24] MEDS: SERTRALINE HCL 50 MG TABLET PO SCH (10:16)
--- NOTE | 2019-09-24 12:56 | RADIOLOGY REPORT (SQ) ---
EXAM DESCRIPTION: PICC INSERTION COMPLETED DATE/TIME: 09/24/2019 12:36 pm REASON FOR STUDY: picc line placement COMPARISON: AP chest 09/24/2019 FLUOROSCOPY TIME: 24 seconds 1 ultrasound and 1 digital fluoroscopic images saved to PACS. TECHNIQUE: Fluoroscopic and ultrasound guided PICC placement. LIMITATIONS: None. PROCEDURE: After written consent and assessment were obtained, the patient was brought into the fluo roscopy room and placed supine on the table. Ultrasound evaluation of potential access sites were per formed. After successfully identifying a patent right basilic vein, the right arm was prepped and ness ped in a sterile fashion along with the ultrasound probe. The entry site was anesthetized with 1% lid ocaine. A 21 gauge 7 cm needle was advanced through the skin and into the right basilic vein under li ve ultrasound guidance. An ultrasound image was saved to PACS confirming access site. A .018 guide wire was then inserted through the needle and into the venous system. The needle was then removed and an 11 blade scalpel was used to make a 1cm skin incision. A 5 fr peel-away sheath was advanced over the wire and into the venous system. We were unable to pass the guidewire into the central venous structures due to vasospasm. Procedure was canceled with the plan to perform a tunneled PICC through the right jugular tomorrow in the blood bank laboratory technician. Sterile dressing was placed over the right arm access site. IMPRESSION: UNSUCCESSFUL PLACEMENT OF A RIGHT PICC LINE DUE TO VASOSPASM. PLAN FOR TUNNELED PICC CATHETER THROUGH JUGULAR APPROACH TOMORROW IN THE SALES FLOOR MANAGER. COMMENT: Patient medication list reviewed: Yes- Quality ID# [id number]:Eligible professional attests to doc umenting in the medical record they obtained, updated, or reviewed the patient's current medications. . Quality ID 145: Final reports for procedures using fluoroscopy that document radiation exposure ayad britt, or exposure time and number of fluorographic images (if radiation exposure indices are not avail able) Quality ID #76: The patient was prepped and draped using maximum sterile barrier technique including cap, mask, sterile gown, sterile gloves, a large sterile sheet, hand hygiene, and 2% Chlorhexidine fo r cutaneous antisepsis. When ultrasound is used, sterile ultrasound techniques are followed requiring sterile gel and sterile probes. TECHNICAL DOCUMENTATION: JOB ID: [id number] [employer]- All Rights Reserved rev-03/28 Reading location - IP/workstation name: [email or web address]
[2019-09-24] MEDS: VANCOMYCIN HCL 1,250 MG in DEXTROSE 5%-WATER 250 ML IV SCH (15:13)
[2019-09-24] MEDS: OXYCODONE HCL IR 5 MG TABLET PO PRN ×2 (15:16→21:29)
--- NOTE | 2019-09-24 20:36 | PDOC PROGRESS REPORT ---
Subjective Progress Note for:: 09/24/19 Subjective:: Patient seen by the bedside, IV access is a challenge Reason For Visit: Patient seen by the bedside, IV access is a challenge for this patient,The repeat chest x-ray that was done showed improved infiltrate in both lung sainz Physical Exam Vital Signs: Temp Pulse Resp BP Pulse Ox 98.1 F 72 17 114/69 99 09/24/19 15:33 09/24/19 15:33 09/24/19 15:33 09/24/19 15:33 09/24/19 15:33 Intake & Output 09/23/19 09/24/19 09/25/19 06:59 06:59 06:59 Intake Total 2750 1975 720 Output Total 400 2400 Balance 2350 -425 720 Weight 69 kg 68.9 kg General appearance: PRESENT: no acute distress Eye exam: PRESENT: PERRLA Respiratory exam: PRESENT: rhonchi Cardiovascular exam: PRESENT: +S1, +S2 Neurological exam: PRESENT: alert Results Laboratory Results: 09/24/19 06:43 09/24/19 06:43 09/24/19 09/24/19 06:43 06:43 WBC 12.6 H RBC 3.49 L Hgb 11.0 L Hct 33.4 L MCV 96 MCH 31.4 MCHC 32.8 RDW 14.3 H Plt Count 257 Seg Neutrophils % 84.3 H Sodium 141.6 Potassium 3.3 L Chloride 109 H Carbon Dioxide 27 Anion Gap 6 BUN 14 Creatinine 0.46 L Est GFR ( Amer) > 60 Glucose 119 H Calcium 8.4 Total Bilirubin 0.2 AST 22 Alkaline Phosphatase 172 H Total Protein 6.0 L Albumin 3.0 L 09/23/19 12:50 Sputum Gram Stain - Final 09/23/19 12:50 Sputum Sputum Culture - Final 09/22/19 09/22/19 09/22/19 13:20 18:34 18:34 Creatine Kinase 62 CK-MB (CK-2) < 0.22 NT-Pro-B Natriuret Pep 177 H 553 H Impressions: Chest X-Ray 09/24/19 00:00 IMPRESSION: Significantly improved aeration bilaterally most consistent with resolving interstitial edema. PICC Line Insertion 09/24/19 00:00 IMPRESSION: UNSUCCESSFUL PLACEMENT OF A RIGHT PICC LINE DUE TO VASOSPASM. PLAN FOR TUNNELED PICC CATHETER THROUGH JUGULAR APPROACH TOMORROW IN THE [employer]ILING [employer]. Assessment & Plan - Diagnosis (1) Bilateral pneumonia Qualifiers: Pneumonia type: due to unspecified organism Lung location: unspecified part of lung Qualified Code(s): J18.9 - Pneumonia, unspecified organism Is this a current diagnosis for this admission?: Yes Plan: Continue antibiotic (2) Hypotension Qualifiers: Hypotension type: idiopathic hypotension Qualified Code(s): I95.0 - Idiopathic hypotension Is this a current diagnosis for this admission?: Yes Plan: Discontinue dopamine (3) Adrenal insufficiency Is this a current diagnosis for this admission?: Yes Plan: Lower stress dose hydrocortisone (4) Chronic ulcer of left leg Qualifiers: Non-pressure ulcer stage: with fat layer exposed Qualified Code(s): L97.922 - Non-pressure chronic ulcer of unspecified part of left lower leg with fat layer exposed Is this a current diagnosis for this admission?: Yes (5) History of hip replacement Qualifiers: Laterality: left Qualified Code(s): Z96.642 - Presence of left artificial hip joint Is this a current diagnosis for this admission?: Yes (6) Hypoalbuminemia Is this a current diagnosis for this admission?: Yes (7) Anxiety and depression Is this a current diagnosis for this admission?: Yes - Time Time Spent with patient: 35 or more minutes Level of Care: IMCU Medications reviewed and adjusted accordingly: Yes
[2019-09-25] MEDS: AZTREONAM 1 GM in DEXTROSE 5%-WATER 50 ML IV SCH ×3 (02:05→18:00)
[2019-09-25] MEDS: HYDROCORTISONE SOD SUCCINATE INJ/PF 100 MG/2 ML SDV IV SCH ×3 (05:30→21:35)
[2019-09-25] MEDS: HEPARIN SOD (PORCINE) 5,000 UNIT/ML 1 ML VIAL SUBCUT SCH ×3 (05:30→21:30)
[2019-09-25] MEDS: OXYCODONE HCL IR 5 MG TABLET PO PRN ×3 (05:33→20:33)
[2019-09-25] MEDS: LEVOTHYROXINE SODIUM 0.088 MG TABLET PO SCH (05:33)
[2019-09-25] MEDS: ALPRAZOLAM 0.25 MG TABLET PO SCH ×3 (05:33→21:31)
[2019-09-25 06:24] LABS: ABSOLUTE EOSINOPHILS # (AUTO) 0.4 10^3/uL (0.0-0.6); ABSOLUTE LYMPHOCYTES (AUTO) 1.7 10^3/uL (0.5-4.7); ABSOLUTE MONOCYTES (AUTO) 0.5 10^3/uL (0.1-1.4); ABSOLUTE NEUT (AUTO) 5.8 10^3/uL (1.7-8.2); BASOPHILS % (AUTO) 0.6 % (0-2); EOSINOPHILS % (AUTO) 4.9 % (0-6); HEMATOCRIT 27.7 % (36.0-47.0); HEMOGLOBIN 9.2 g/dL (12.0-15.5); LYMPHOCYTES % (AUTO) 20.2 % (13-45); MEAN CORPUSCULAR HEMOGLOBIN 31.8 pg (27.0-33.4); MEAN CORPUSCULAR HGB CONC 33.2 g/dL (32.0-36.0); MEAN CORPUSCULAR VOLUME 96 fl (80-97); MONOCYTES % (AUTO) 5.5 % (3-13); PLATELET COUNT 219 10^3/uL (150-450); RED BLOOD COUNT 2.89 10^6/uL (3.72-5.28); RED CELL DISTRIBUTION WIDTH 14.5 % (11.5-14.0); SEGMENTED NEUTROPHILS % (AUTO) 68.8 % (42-78); TOTAL CELLS COUNTED % (AUTO) 100 %; WHITE BLOOD COUNT 8.5 10^3/uL (4.0-10.5)
[2019-09-25 06:45] LABS: ALBUMIN 2.4 g/dL (3.5-5.0); ALKALINE PHOSPHATASE 129 U/L (38-126); ANION GAP 5 (5-19); ASPARTATE AMINO TRANSFERASE 16 U/L (14-36); BILIRUBIN,DIRECT 0.1 mg/dL (0.0-0.4); BILIRUBIN,TOTAL 0.2 mg/dL (0.2-1.3); BLOOD UREA NITROGEN 11 mg/dL (7-20); CALCIUM 8.1 mg/dL (8.4-10.2); CARBON DIOXIDE 26 mmol/L (22-30); CHLORIDE 114 mmol/L (98-107); GLUCOSE 81 mg/dL (75-110); POTASSIUM 3.1 mmol/L (3.6-5.0); TOTAL PROTEIN 4.5 g/dL (6.3-8.2)
[2019-09-25] MEDS: SERTRALINE HCL 50 MG TABLET PO SCH (10:55)
[2019-09-25] MEDS: POTASSI CL 20 MEQ/50 ML RIDER 20 MEQ/50 ML RTUPB IV SCH ×2 (10:55→12:22)
[2019-09-25] MEDS ORDERED: NORMAL SALINE 10 ML SDV (AFTER EACH USE) IV PRN (11:00)
[2019-09-25] MEDS: VARENICLINE TARTRATE 1 MG TABLET PO SCH ×2 (11:14→21:31)
--- NOTE | 2019-09-25 12:11 | RADIOLOGY REPORT (SQ) ---
EXAM DESCRIPTION: PICC INSERTION; GUIDANCE ULTRASOUND; GUIDANCE FLUOROSCOPIC COMPLETED DATE/TIME: 09/25/2019 10:12 am REASON FOR STUDY: NEED FOR VASCULAR ACCESS COMPARISON: None. FLUOROSCOPY TIME: 1.2 minutes. TECHNIQUE: Refer to Procedure. LIMITATIONS: None. PROCEDURE: The procedure, risks, benefits, and alternatives were discussed with the patient in the p reprocedural area, and all questions were answered. Informed consent was obtained verbally and in wri ting. The patient was then brought to the procedural suite, positioned supine on the fluoroscopy table, and a time-out was performed. At first the right upper extremity was evaluated with ultrasound and the brachial vein was found to b e patent and compressible. The right upper extremity was then prepped and draped with 2% chlorhexidin e utilizing standard sterile technique. After the skin over the basilic vein was anesthetized with 1% lidocaine, ultrasound guidance was used to access the vessel with a 21-gauge needle - a sonographic image was stored for documentation. A 0.018 inch guidewire was then inserted through the needle and a dvanced under fluoroscopic guidance into the SVC. After that, the needle was exchanged over the guide wire for a peel-away sheath. A 5 [place]ian double - lumen PICC was then cut to the appropriate length of 34 cm, inserted through the sheath and advanced under fluoroscopic guidance into the SVC. After that , the peel-away sheath was removed and a fluoroscopic image of the chest was obtained to confirm prop er position of the catheter tip within SVC. The lumens of the PICC were then aspirated, flushed with sterile saline and heparinized. At the end of the procedure the PICC was secured in place and a sterile dressing applied over it. The patient tolerated the procedure well without immediate complication. At the end of the procedure the patient's condition was unchanged from the preprocedural baseline. No IV conscious sedation was administered. Physiologic monitoring was provided before, during, and after the procedure. Documentation of [id number] time performing proceduralist spent monitoring the patient: 15 minutes. IMPRESSION: SUCCESSFUL PLACEMENT OF A 5 SPANISH X 34 CM DOUBLE LUMEN PICC VIA THE RIGHT BASILIC VEIN UTILIZING FLUOROSCOPIC AND SONOGRAPHIC GUIDANCE. COMMENT: Patient medication list reviewed: Yes- Quality ID# [id number]:Eligible professional attests to doc umenting in the medical record they obtained, updated, or reviewed the patient's current medications. . Quality ID 145: Final reports for procedures using fluoroscopy that document radiation exposure ayad britt, or exposure time and number of fluorographic images (if radiation exposure indices are not avail able) Quality ID #76: The patient was prepped and draped using maximum sterile barrier technique including cap, mask, sterile gown, sterile gloves, a large sterile sheet, hand hygiene, and 2% Chlorhexidine fo r cutaneous antisepsis. When ultrasound is used, sterile ultrasound techniques are followed requiring sterile gel and sterile probes. TECHNICAL DOCUMENTATION: JOB ID: [id number] [employer]- All Rights Reserved rev-03/28 Reading location - IP/workstation name: [email or web address]
--- NOTE | 2019-09-25 12:11 | RADIOLOGY REPORT (SQ) ---
EXAM DESCRIPTION: PICC INSERTION; GUIDANCE ULTRASOUND; GUIDANCE FLUOROSCOPIC COMPLETED DATE/TIME: 09/25/2019 10:12 am REASON FOR STUDY: NEED FOR VASCULAR ACCESS COMPARISON: None. FLUOROSCOPY TIME: 1.2 minutes. TECHNIQUE: Refer to Procedure. LIMITATIONS: None. PROCEDURE: The procedure, risks, benefits, and alternatives were discussed with the patient in the p reprocedural area, and all questions were answered. Informed consent was obtained verbally and in wri ting. The patient was then brought to the procedural suite, positioned supine on the fluoroscopy table, and a time-out was performed. At first the right upper extremity was evaluated with ultrasound and the brachial vein was found to b e patent and compressible. The right upper extremity was then prepped and draped with 2% chlorhexidin e utilizing standard sterile technique. After the skin over the basilic vein was anesthetized with 1% lidocaine, ultrasound guidance was used to access the vessel with a 21-gauge needle - a sonographic image was stored for documentation. A 0.018 inch guidewire was then inserted through the needle and a dvanced under fluoroscopic guidance into the SVC. After that, the needle was exchanged over the guide wire for a peel-away sheath. A 5 Yemeni double - lumen PICC was then cut to the appropriate length of 34 cm, inserted through the sheath and advanced under fluoroscopic guidance into the SVC. After that , the peel-away sheath was removed and a fluoroscopic image of the chest was obtained to confirm prop er position of the catheter tip within SVC. The lumens of the PICC were then aspirated, flushed with sterile saline and heparinized. At the end of the procedure the PICC was secured in place and a sterile dressing applied over it. The patient tolerated the procedure well without immediate complication. At the end of the procedure the patient's condition was unchanged from the preprocedural baseline. No IV conscious sedation was administered. Physiologic monitoring was provided before, during, and after the procedure. Documentation of [id number] time performing proceduralist spent monitoring the patient: 15 minutes. IMPRESSION: SUCCESSFUL PLACEMENT OF A 5 SOUTH KORE[place] X 34 CM DOUBLE LUMEN PICC VIA THE RIGHT BASILIC VEIN UTILIZING FLUOROSCOPIC AND SONOGRAPHIC GUIDANCE. COMMENT: Patient medication list reviewed: Yes- Quality ID# 130:Eligible professional attests to doc umenting in the medical record they obtained, updated, or reviewed the patient's current medications. . Quality ID 145: Final reports for procedures using fluoroscopy that document radiation exposure ayad britt, or exposure time and number of fluorographic images (if radiation exposure indices are not avail able) Quality ID #76: The patient was prepped and draped using maximum sterile barrier technique including cap, mask, sterile gown, sterile gloves, a large sterile sheet, hand hygiene, and 2% Chlorhexidine fo r cutaneous antisepsis. When ultrasound is used, sterile ultrasound techniques are followed requiring sterile gel and sterile probes. TECHNICAL DOCUMENTATION: JOB ID: [id number] [employer]- All Rights Reserved rev-03/28 Reading location - IP/workstation name: [email or web address]
--- NOTE | 2019-09-25 12:11 | RADIOLOGY REPORT (SQ) ---
EXAM DESCRIPTION: PICC INSERTION; GUIDANCE ULTRASOUND; GUIDANCE FLUOROSCOPIC COMPLETED DATE/TIME: 09/25/2019 10:12 am REASON FOR STUDY: NEED FOR VASCULAR ACCESS COMPARISON: None. FLUOROSCOPY TIME: 1.2 minutes. TECHNIQUE: Refer to Procedure. LIMITATIONS: None. PROCEDURE: The procedure, risks, benefits, and alternatives were discussed with the patient in the p reprocedural area, and all questions were answered. Informed consent was obtained verbally and in wri ting. The patient was then brought to the procedural suite, positioned supine on the fluoroscopy table, and a time-out was performed. At first the right upper extremity was evaluated with ultrasound and the brachial vein was found to b e patent and compressible. The right upper extremity was then prepped and draped with 2% chlorhexidin e utilizing standard sterile technique. After the skin over the basilic vein was anesthetized with 1% lidocaine, ultrasound guidance was used to access the vessel with a 21-gauge needle - a sonographic image was stored for documentation. A 0.018 inch guidewire was then inserted through the needle and a dvanced under fluoroscopic guidance into the SVC. After that, the needle was exchanged over the guide wire for a peel-away sheath. A 5 Belgian double - lumen PICC was then cut to the appropriate length of 34 cm, inserted through the sheath and advanced under fluoroscopic guidance into the SVC. After that , the peel-away sheath was removed and a fluoroscopic image of the chest was obtained to confirm prop er position of the catheter tip within SVC. The lumens of the PICC were then aspirated, flushed with sterile saline and heparinized. At the end of the procedure the PICC was secured in place and a sterile dressing applied over it. The patient tolerated the procedure well without immediate complication. At the end of the procedure the patient's condition was unchanged from the preprocedural baseline. No IV conscious sedation was administered. Physiologic monitoring was provided before, during, and after the procedure. Documentation of [id number]-[id number] time performing proceduralist spent monitoring the patient: 15 minutes. IMPRESSION: SUCCESSFUL PLACEMENT OF A 5 SWEDISH X 34 CM DOUBLE LUMEN PICC VIA THE RIGHT BASILIC VEIN UTILIZING FLUOROSCOPIC AND SONOGRAPHIC GUIDANCE. COMMENT: Patient medication list reviewed: Yes- Quality ID# 130:Eligible professional attests to doc umenting in the medical record they obtained, updated, or reviewed the patient's current medications. . Quality ID 145: Final reports for procedures using fluoroscopy that document radiation exposure ayad britt, or exposure time and number of fluorographic images (if radiation exposure indices are not avail able) Quality ID #76: The patient was prepped and draped using maximum sterile barrier technique including cap, mask, sterile gown, sterile gloves, a large sterile sheet, hand hygiene, and 2% Chlorhexidine fo r cutaneous antisepsis. When ultrasound is used, sterile ultrasound techniques are followed requiring sterile gel and sterile probes. TECHNICAL DOCUMENTATION: JOB ID: [id number] [employer]- All Rights Reserved rev-03/28 Reading location - IP/workstation name: [email or web address]
[2019-09-25 12:12] LABS: VANCOMYCIN,TROUGH < 5.0 ug/mL (5.0-20.0)
[2019-09-25] MEDS: VANCOMYCIN HCL 1,250 MG in DEXTROSE 5%-WATER 250 ML IV SCH (12:15)
[2019-09-25] MEDS: RINGERS SOLUTION,LACTATED 1,000 ML IV PRN (12:22)
[2019-09-25] MEDS: VANCOMYCIN HCL 1,000 MG in DEXTROSE 5%-WATER 250 ML IV SCH ×2 (14:52→21:34)
--- NOTE | 2019-09-25 21:02 | PDOC PROGRESS REPORT ---
Subjective Progress Note for:: 09/25/19 Subjective:: Patient seen by the bedside, no new complaints Reason For Visit: need for vascular access. failed regular picc inse Physical Exam Vital Signs: Temp Pulse Resp BP Pulse Ox 98.2 F 79 18 120/69 98 09/25/19 15:27 09/25/19 19:00 09/25/19 15:27 09/25/19 15:27 09/25/19 15:27 Intake & Output 09/24/19 09/25/19 09/26/19 06:59 06:59 06:59 Intake Total 1974 1940 946 Output Total 2400 Balance -425 1940 946 Weight 68.9 kg 67.9 kg General appearance: PRESENT: no acute distress Eye exam: PRESENT: PERRLA Respiratory exam: PRESENT: clear to auscultation rona Cardiovascular exam: PRESENT: +S1, +S2 GI/Abdominal exam: PRESENT: soft Neurological exam: PRESENT: alert Results Laboratory Results: 09/25/19 06:05 09/25/19 06:05 09/25/19 09/25/19 06:05 06:05 WBC 8.5 RBC 2.89 L Hgb 9.2 L Hct 27.7 L MCV 96 MCH 31.8 MCHC 33.2 RDW 14.5 H Plt Count 219 Seg Neutrophils % 68.8 Sodium 144.6 Potassium 3.1 L Chloride 114 H Carbon Dioxide 26 Anion Gap 5 BUN 11 Creatinine 0.40 L Est GFR ( Amer) > 60 Glucose 81 Calcium 8.1 L Total Bilirubin 0.2 AST 16 Alkaline Phosphatase 129 H Total Protein 4.5 L Albumin 2.4 L 09/23/19 06:37 Clean Catch Midstream Urine Culture - Final Mixed Urogenital Gayle 09/22/19 09/22/19 09/22/19 13:20 18:34 18:34 Creatine Kinase 62 CK-MB (CK-2) < 0.22 NT-Pro-B Natriuret Pep 177 H 553 H Impressions: Chest X-Ray 09/24/19 00:00 IMPRESSION: Significantly improved aeration bilaterally most consistent with re solving interstitial edema. Guidance Fluoroscopy 09/25/19 00:00 IMPRESSION: SUCCESSFUL PLACEMENT OF A 5 [place] X 34 CM DOUBLE LUMEN PICC VIA THE RIGHT BASILIC VEIN UTILIZING FLUOROSCOPIC AND SONOGRAPHIC GUIDANCE. Guidance Ultrasound 09/25/19 00:00 IMPRESSION: SUCCESSFUL PLACEMENT OF A 5 [place] X 34 CM DOUBLE LUMEN PICC VIA THE RIGHT BASILIC VEIN UTILIZING FLUOROSCOPIC AND SONOGRAPHIC GUIDANCE. PICC Line Insertion 09/25/19 00:00 IMPRESSION: SUCCESSFUL PLACEMENT OF A 5 [place] X 34 CM DOUBLE LUMEN PICC VIA THE RIGHT BASILIC VEIN UTILIZING FLUOROSCOPIC AND SONOGRAPHIC GUIDANCE. Assessment & Plan - Diagnosis (1) Bilateral pneumonia Qualifiers: Pneumonia type: due to unspecified organism Lung location: unspecified part of lung Qualified Code(s): J18.9 - Pneumonia, unspecified organism Is this a current diagnosis for this admission?: Yes (2) Hypotension Qualifiers: Hypotension type: idiopathic hypotension Qualified Code(s): I95.0 - Idiopathic hypotension Is this a current diagnosis for this admission?: Yes (3) Adrenal insufficiency Is this a current diagnosis for this admission?: Yes (4) Chronic ulcer of left leg Qualifiers: Non-pressure ulcer stage: with fat layer exposed Qualified Code(s): L97.922 - Non-pressure chronic ulcer of unspecified part of left lower leg with fat layer exposed Is this a current diagnosis for this admission?: Yes (5) History of hip replacement Qualifiers: Laterality: left Qualified Code(s): Z96.642 - Presence of left artificial hip joint Is this a current diagnosis for this admission?: Yes (6) Hypoalbuminemia Is this a current diagnosis for this admission?: Yes (7) Anxiety and depression Is this a current diagnosis for this admission?: Yes - Time Time Spent with patient: 35 or more minutes Level of Care: IMCU - Plan Summary Plan Summary: Continue IV antibiotic, discontinuing dopamine, continue IV fluid
[2019-09-25] MEDS: POTASSIUM CHLORIDE 20 MEQ/50 ML RTU IV SCH ×2 (21:53→23:25)
[2019-09-25] MEDS ORDERED: NORMAL SALINE 10 ML SDV (SCHEDULED) IV SCH (22:00)
[2019-09-25] MEDS ORDERED: POTASSI CL 20 MEQ/50 ML RIDER 20 MEQ/50 ML RTUPB IV SCH (22:00)
[2019-09-26] MEDS: AZTREONAM 1 GM in DEXTROSE 5%-WATER 50 ML IV SCH ×3 (01:50→17:52)
[2019-09-26] MEDS: HEPARIN SOD (PORCINE) 5,000 UNIT/ML 1 ML VIAL SUBCUT SCH ×3 (05:22→21:50)
[2019-09-26] MEDS: ALPRAZOLAM 0.25 MG TABLET PO SCH ×3 (05:22→21:50)
[2019-09-26] MEDS: VANCOMYCIN HCL 1,000 MG in DEXTROSE 5%-WATER 250 ML IV SCH ×3 (05:22→21:51)
[2019-09-26] MEDS: LEVOTHYROXINE SODIUM 0.088 MG TABLET PO SCH (05:22)
[2019-09-26] MEDS: HYDROCORTISONE SOD SUCCINATE INJ/PF 100 MG/2 ML SDV IV SCH ×3 (05:22→21:49)
[2019-09-26 06:52] LABS: HEMATOCRIT 28.3 % (36.0-47.0); HEMOGLOBIN 9.2 g/dL (12.0-15.5); MEAN CORPUSCULAR HEMOGLOBIN 31.6 pg (27.0-33.4); MEAN CORPUSCULAR HGB CONC 32.7 g/dL (32.0-36.0); MEAN CORPUSCULAR VOLUME 97 fl (80-97); PLATELET COUNT 250 10^3/uL (150-450); RED BLOOD COUNT 2.93 10^6/uL (3.72-5.28); RED CELL DISTRIBUTION WIDTH 14.2 % (11.5-14.0); WHITE BLOOD COUNT 8.3 10^3/uL (4.0-10.5)
[2019-09-26 07:26] LABS: ABSOLUTE LYMPHOCYTES# (MANUAL) 1.7 10^3/uL (0.5-4.7); ABSOLUTE MONOCYTES # (MANUAL) 0.5 10^3/uL (0.1-1.4); BAND NEUTROPHILS % (MANUAL) 2 % (3-5); BASOPHILS % (MANUAL) 0 % (0-2); EOSINOPHILS % (MANUAL) 4 % (0-6); LYMPHOCYTES % (MANUAL) 21 % (13-45); MONOCYTES % (MANUAL) 6 % (3-13); SEGMENTED NEUTROPHILS % (MAN) 67 % (42-78); TOTAL CELLS COUNTED 100
[2019-09-26 07:27] LABS: PLATELET COMMENT ADEQUATE; RBC MORPHOLOGY COMMENT NORMO-CYTIC/CHROMIC; TOXIC GRANULATION SLIGHT
[2019-09-26] MEDS: OXYCODONE HCL IR 5 MG TABLET PO PRN ×3 (08:40→21:50)
[2019-09-26 08:44] LABS: BLOOD UREA NITROGEN 8 mg/dL (7-20); CALCIUM 8.4 mg/dL (8.4-10.2); CARBON DIOXIDE 28 mmol/L (22-30); CHLORIDE 108 mmol/L (98-107); GLUCOSE 99 mg/dL (75-110); POTASSIUM 4.3 mmol/L (3.6-5.0)
[2019-09-26 08:58] LABS: ANION GAP 4 (5-19)
[2019-09-26] MEDS: VARENICLINE TARTRATE 1 MG TABLET PO SCH ×2 (09:48→21:50)
[2019-09-26] MEDS: SERTRALINE HCL 50 MG TABLET PO SCH (09:48)
[2019-09-26 16:14] LABS: VANCOMYCIN,TROUGH 14.7 ug/mL (5.0-20.0)
--- NOTE | 2019-09-26 17:28 | PDOC PROGRESS REPORT ---
Subjective Progress Note for:: 09/26/19 Subjective:: Patient seen by the bedside, she is improving on present line of management Reason For Visit: need for vascular access. failed regular picc inse Physical Exam Vital Signs: Temp Pulse Resp BP Pulse Ox 98.1 F 71 16 137/68 H 99 09/26/19 15:30 09/26/19 15:30 09/26/19 15:30 09/26/19 15:30 09/26/19 15:30 Intake & Output 09/25/19 09/26/19 09/27/19 06:59 06:59 06:59 Intake Total 1940 1396 1300 Balance 1940 1396 1300 Weight 67.9 kg 66.2 kg General appearance: PRESENT: no acute distress Eye exam: PRESENT: PERRLA Respiratory exam: PRESENT: clear to auscultation rona Cardiovascular exam: PRESENT: +S1, +S2 GI/Abdominal exam: PRESENT: soft Neurological exam: PRESENT: alert, CN II-XII grossly intact Results Laboratory Results: 09/26/19 05:30 09/26/19 15:30 09/26/19 09/26/19 09/26/19 05:30 05:30 08:06 WBC 8.3 RBC 2.93 L Hgb 9.2 L Hct 28.3 L MCV 97 MCH 31.6 MCHC 32.7 RDW 14.2 H Plt Count 250 Seg Neutrophils % Not Reportable Sodium Cancelled 139.7 Potassium Cancelled 4.3 Chloride Cancelled 108 H Carbon Dioxide Cancelled 28 Anion Gap Cancelled 4 L BUN Cancelled 8 Creatinine Cancelled 0.33 L Est GFR ( Amer) Cancelled > 60 Est GFR (Non-Af Amer) Cancelled Glucose Cancelled 99 Calcium Cancelled 8.4 09/26/19 15:30 WBC RBC Hgb Hct MCV MCH MCHC RDW Plt Count Seg Neutrophils % Sodium Potassium Chloride Carbon Dioxide Anion Gap BUN Creatinine 0.44 L Est GFR ( Amer) > 60 Est GFR (Non-Af Amer) Glucose Calcium 09/22/19 09/22/19 09/22/19 13:20 18:34 18:34 Creatine Kinase 62 CK-MB (CK-2) < 0.22 NT-Pro-B Natriuret Pep 177 H 553 H Impressions: Chest X-Ray 09/24/19 00:00 IMPRESSION: Significantly improved aeration bilaterally most consistent with resolving interstitial edema. Guidance Fluoroscopy 09/25/19 00:00 IMPRESSION: SUCCESSFUL PLACEMENT OF A 5 TANZ[place]IAN X 34 CM DOUBLE LUMEN PICC VIA THE RIGHT BASILIC VEIN UTILIZING FLUOROSCOPIC AND SONOGRAPHIC GUIDANCE. Guidance Ultrasound 09/25/19 00:00 IMPRESSION: SUCCESSFUL PLACEMENT OF A 5 T[place]ZAN[place] X 34 CM DOUBLE LUMEN PICC VIA THE RIGHT BASILIC VEIN UTILIZING FLUOROSCOPIC AND SONOGRAPHIC GUIDANCE. PICC Line Insertion 09/25/19 00:00 IMPRESSION: SUCCESSFUL PLACEMENT OF A 5 TANZANIAN X 34 CM DOUBLE LUMEN PICC VIA THE RIGHT BASILIC VEIN UTILIZING FLUOROSCOPIC AND SONOGRAPHIC GUIDANCE. Assessment & Plan - Diagnosis (1) Bilateral pneumonia Qualifiers: Pneumonia type: due to unspecified organism Lung location: unspecified part of lung Qualified Code(s): J18.9 - Pneumonia, unspecified organism Is this a current diagnosis for this admission?: Yes (2) Hypotension Qualifiers: Hypotension type: idiopathic hypotension Qualified Code(s): I95.0 - Idiopathic hypotension Is this a current diagnosis for this admission?: Yes (3) Adrenal insufficiency Is this a current diagnosis for this admission?: Yes (4) Chronic ulcer of left leg Qualifiers: Non-pressure ulcer stage: with fat layer exposed Qualified Code(s): L97.922 - Non-pressure chronic ulcer of unspecified part of left lower leg with fat layer exposed Is this a current diagnosis for this admission?: Yes (5) History of hip replacement Qualifiers: Laterality: left Qualified Code(s): Z96.642 - Presence of left artificial hip joint Is this a current diagnosis for this admission?: Yes (6) Hypoalbuminemia Is this a current diagnosis for this admission?: Yes (7) Anxiety and depression Is this a current diagnosis for this admission?: Yes - Time Time Spent with patient: 35 or more minutes Level of Care: IMCU - Plan Summary Plan Summary: Continue treatment
[2019-09-27] MEDS: AZTREONAM 1 GM in DEXTROSE 5%-WATER 50 ML IV SCH ×3 (02:21→17:53)
[2019-09-27] MEDS: HEPARIN SOD (PORCINE) 5,000 UNIT/ML 1 ML VIAL SUBCUT SCH ×3 (06:31→21:16)
[2019-09-27] MEDS: VANCOMYCIN HCL 1,000 MG in DEXTROSE 5%-WATER 250 ML IV SCH ×3 (06:31→21:17)
[2019-09-27] MEDS: LEVOTHYROXINE SODIUM 0.088 MG TABLET PO SCH (06:31)
[2019-09-27] MEDS: HYDROCORTISONE SOD SUCCINATE INJ/PF 100 MG/2 ML SDV IV SCH (06:31)
[2019-09-27] MEDS: ALPRAZOLAM 0.25 MG TABLET PO SCH ×3 (06:32→21:16)
[2019-09-27] MEDS: OXYCODONE HCL IR 5 MG TABLET PO PRN ×3 (06:43→21:16)
[2019-09-27] MEDS: SERTRALINE HCL 50 MG TABLET PO SCH (09:51)
[2019-09-27] MEDS: VARENICLINE TARTRATE 1 MG TABLET PO SCH ×2 (09:51→21:19)
[2019-09-27] MEDS: HYDROCORTISONE 10 MG TABLET PO SCH ×2 (11:26→17:53)
--- NOTE | 2019-09-27 15:16 | PDOC PROGRESS REPORT ---
Subjective Progress Note for:: 09/27/19 Subjective:: Patient seen at bedside she looks much better, she will continue IV antibiotic for total of 7 days. Discontinue IV hydrocortisone, start maintenance dose of hydrocortisone Reason For Visit: need for vascular access. failed regular picc inse Physical Exam Vital Signs: Temp Pulse Resp BP Pulse Ox 98.1 F 79 17 163/72 H 96 09/27/19 11:08 09/27/19 14:00 09/27/19 11:08 09/27/19 11:08 09/27/19 11:08 Intake & Output 09/26/19 09/27/19 09/28/19 06:59 06:59 06:59 Intake Total 1396 2460 1090 Balance 1396 2460 1090 Weight 66.2 kg 64.1 kg General appearance: PRESENT: no acute distress Eye exam: PRESENT: PERRLA Respiratory exam: PRESENT: clear to auscultation rona Cardiovascular exam: PRESENT: +S1, +S2 GI/Abdominal exam: PRESENT: soft Neurological exam: PRESENT: alert Results Laboratory Results: 09/26/19 05:30 09/26/19 15:30 09/26/19 15:30 Creatinine 0.44 L Est GFR ( Amer) > 60 09/22/19 14:48 Blood Blood Culture - Final NO GROWTH IN 5 DAYS 09/22/19 13:20 Blood Blood Culture - Final NO GROWTH IN 5 DAYS 09/22/19 09/22/19 09/22/19 13:20 18:34 18:34 Creatine Kinase 62 CK-MB (CK-2) < 0.22 NT-Pro-B Natriuret Pep 177 H 553 H Impressions: Chest X-Ray 09/24/19 00:00 IMPRESSION: Significantly improved aeration bilaterally most consistent with resolving interstitial edema. Guidance Fluoroscopy 09/25/19 00:00 IMPRESSION: SUCCESSFUL PLACEMENT OF A 5 [place] X 34 CM DOUBLE LUMEN PICC VIA THE RIGHT BASILIC VEIN UTILIZING FLUOROSCOPIC AND SONOGRAPHIC GUIDANCE. Guidance Ultrasound 09/25/19 00:00 IMPRESSION: SUCCESSFUL PLACEMENT OF A 5 SA[place] X 34 CM DOUBLE LUMEN PICC VIA THE RIGHT BASILIC VEIN UTILIZING FLUOROSCOPIC AND SONOGRAPHIC GUIDANCE. PICC Line Insertion 09/25/19 00:00 IMPRESSION: SUCCESSFUL PLACEMENT OF A 5 SA[place] X 34 CM DOUBLE LUMEN PICC VIA THE RIGHT BASILIC VEIN UTILIZING FLUOROSCOPIC AND SONOGRAPHIC GUIDANCE. Assessment & Plan - Diagnosis (1) Bilateral pneumonia Qualifiers: Pneumonia type: due to unspecified organism Lung location: unspecified part of lung Qualified Code(s): J18.9 - Pneumonia, unspecified organism Is this a current diagnosis for this admission?: Yes (2) Hypotension Qualifiers: Hypotension type: idiopathic hypotension Qualified Code(s): I95.0 - Idiopathic hypotension Is this a current diagnosis for this admission?: Yes Plan: The blood pressure is normalized, discontinue intravenous steroid, start maintenance dose hydrocortisone, discontinue IV fluid (3) Adrenal insufficiency Is this a current diagnosis for this admission?: Yes Plan: Start maintenance dose hydrocortisone (4) Chronic ulcer of left leg Qualifiers: Non-pressure ulcer stage: with fat layer exposed Qualified Code(s): L97.922 - Non-pressure chronic ulcer of unspecified part of left lower leg with fat layer exposed Is this a current diagnosis for this admission?: Yes (5) History of hip replacement Qualifiers: Laterality: left Qualified Code(s): Z96.642 - Presence of left artificial hip joint Is this a current diagnosis for this admission?: Yes (6) Hypoalbuminemia Is this a current diagnosis for this admission?: Yes (7) Anxiety and depression Is this a current diagnosis for this admission?: Yes - Time Time Spent with patient: 35 or more minutes Level of Care: CU
[2019-09-27] MEDS: ASPIRIN 81 MG TABLET, ENT COATED PO SCH (22:17)
[2019-09-28] MEDS: AZTREONAM 1 GM in DEXTROSE 5%-WATER 50 ML IV SCH ×3 (02:32→17:27)
[2019-09-28] MEDS: ALPRAZOLAM 0.25 MG TABLET PO SCH ×3 (05:21→22:19)
[2019-09-28] MEDS: VANCOMYCIN HCL 1,000 MG in DEXTROSE 5%-WATER 250 ML IV SCH ×2 (05:21→14:51)
[2019-09-28] MEDS: PANTOPRAZOLE SODIUM 40 MG TABLET.DR PO SCH (05:21)
[2019-09-28] MEDS: OXYCODONE HCL IR 5 MG TABLET PO PRN ×3 (05:21→20:28)
[2019-09-28] MEDS: LEVOTHYROXINE SODIUM 0.088 MG TABLET PO SCH (05:21)
[2019-09-28] MEDS: HEPARIN SOD (PORCINE) 5,000 UNIT/ML 1 ML VIAL SUBCUT SCH ×3 (05:27→22:20)
[2019-09-28] MEDS: HYDROCORTISONE 10 MG TABLET PO SCH ×2 (08:48→17:27)
[2019-09-28] MEDS: SERTRALINE HCL 50 MG TABLET PO SCH (09:52)
[2019-09-28] MEDS: VARENICLINE TARTRATE 1 MG TABLET PO SCH ×2 (09:52→22:20)
[2019-09-28] MEDS: BENZTROPINE MESYLATE 1 MG TABLET PO SCH (09:52)
[2019-09-28] MEDS: LURASIDONE HCL 40 MG TABLET PO SCH (09:52)
[2019-09-28] MEDS: MULTIVITAMIN TABLET PO SCH (09:52)
[2019-09-28] MEDS: ASPIRIN 81 MG TABLET, ENT COATED PO SCH (09:52)
[2019-09-28] MEDS: FLUTICASONE/UMECLIDIN/VILANTER 100-62.5-25 MCG/DOSE IH SCH (09:53)
--- NOTE | 2019-09-28 20:38 | PDOC PROGRESS REPORT ---
Subjective Progress Note for:: 09/28/19 Subjective:: Patient seen by the bedside, she has improved tremendously blood pressure is normalized, it is okay to discontinue IV antibiotic at this time, the plan is to discharge to long-term care, discharge planning making arrangements to get a bed for her Reason For Visit: need for vascular access. failed regular picc inse Physical Exam Vital Signs: Temp Pulse Resp BP Pulse Ox 98.4 F 72 17 155/77 H 100 09/28/19 15:50 09/28/19 15:50 09/28/19 15:50 09/28/19 15:50 09/28/19 15:50 Intake & Output 09/27/19 09/28/19 09/29/19 06:59 06:59 06:59 Intake Total 2460 2120 1220 Balance 2460 2120 1220 Weight 64.1 kg 63.5 kg 63.5 kg General appearance: PRESENT: no acute distress Eye exam: PRESENT: PERRLA Respiratory exam: PRESENT: clear to auscultation rona Cardiovascular exam: PRESENT: +S1, +S2 GI/Abdominal exam: PRESENT: soft Neurological exam: PRESENT: alert Results Laboratory Results: 09/26/19 05:30 09/26/19 15:30 09/22/19 09/22/19 09/22/19 13:20 18:34 18:34 Creatine Kinase 62 CK-MB (CK-2) < 0.22 NT-Pro-B Natriuret Pep 177 H 553 H Impressions: Chest X-Ray 09/24/19 00:00 IMPRESSION: Significantly improved aeration bilaterally most consistent with resolving interstitial edema. Guidance Fluoroscopy 09/25/19 00:00 IMPRESSION: SUCCESSFUL PLACEMENT OF A 5 MALDIVIAN X 34 CM DOUBLE LUMEN PICC VIA THE RIGHT BASILIC VEIN UTILIZING FLUOROSCOPIC AND SONOGRAPHIC GUIDANCE. Guidance Ultrasound 09/25/19 00:00 IMPRESSION: SUCCESSFUL PLACEMENT OF A 5 MALDIVIAN X 34 CM DOUBLE LUMEN PICC VIA THE RIGHT BASILIC VEIN UTILIZING FLUOROSCOPIC AND SONOGRAPHIC GUIDANCE. PICC Line Insertion 09/25/19 00:00 IMPRESSION: SUCCESSFUL PLACEMENT OF A 5 MALDIVIAN X 34 CM DOUBLE LUMEN PICC VIA THE RIGHT BASILIC VEIN UTILIZING FLUOROSCOPIC AND SONOGRAPHIC GUIDANCE. Assessment & Plan - Diagnosis (1) Bilateral pneumonia Qualifiers: Pneumonia type: due to unspecified organism Lung location: unspecified part of lung Qualified Code(s): J18.9 - Pneumonia, unspecified organism Is this a current diagnosis for this admission?: Yes (2) Hypotension Qualifiers: Hypotension type: idiopathic hypotension Qualified Code(s): I95.0 - Idiopathic hypotension Is this a current diagnosis for this admission?: Yes (3) Adrenal insufficiency Is this a current diagnosis for this admission?: Yes (4) Chronic ulcer of left leg Qualifiers: Non-pressure ulcer stage: with fat layer exposed Qualified Code(s): L97.922 - Non-pressure chronic ulcer of unspecified part of left lower leg with fat layer exposed Is this a current diagnosis for this admission?: Yes (5) History of hip replacement Qualifiers: Laterality: left Qualified Code(s): Z96.642 - Presence of left artificial hip joint Is this a current diagnosis for this admission?: Yes (6) Hypoalbuminemia Is this a current diagnosis for this admission?: Yes (7) Anxiety and depression Is this a current diagnosis for this admission?: Yes - Time Time Spent with patient: 35 or more minutes - Plan Summary Plan Summary: Discontinue IV antibiotic
[2019-09-29] MEDS: PANTOPRAZOLE SODIUM 40 MG TABLET.DR PO SCH (06:10)
[2019-09-29] MEDS: HEPARIN SOD (PORCINE) 5,000 UNIT/ML 1 ML VIAL SUBCUT SCH ×3 (06:10→21:10)
[2019-09-29] MEDS: LEVOTHYROXINE SODIUM 0.088 MG TABLET PO SCH (06:10)
[2019-09-29] MEDS: OXYCODONE HCL IR 5 MG TABLET PO PRN ×3 (06:10→21:11)
[2019-09-29] MEDS: ALPRAZOLAM 0.25 MG TABLET PO SCH ×3 (06:10→21:11)
[2019-09-29] MEDS: ASPIRIN 81 MG TABLET, ENT COATED PO SCH (09:26)
[2019-09-29] MEDS: HYDROCORTISONE 10 MG TABLET PO SCH ×2 (09:26→17:12)
[2019-09-29] MEDS: SERTRALINE HCL 50 MG TABLET PO SCH (09:26)
[2019-09-29] MEDS: BENZTROPINE MESYLATE 1 MG TABLET PO SCH (09:26)
[2019-09-29] MEDS: LURASIDONE HCL 40 MG TABLET PO SCH (09:27)
[2019-09-29] MEDS: MULTIVITAMIN TABLET PO SCH (09:27)
[2019-09-29] MEDS: FLUTICASONE/UMECLIDIN/VILANTER 100-62.5-25 MCG/DOSE IH SCH (09:27)
[2019-09-29] MEDS: VARENICLINE TARTRATE 1 MG TABLET PO SCH ×2 (09:27→21:11)
[2019-09-29 09:53] LABS: HEMATOCRIT 29.7 % (36.0-47.0); HEMOGLOBIN 9.8 g/dL (12.0-15.5); MEAN CORPUSCULAR HEMOGLOBIN 31.8 pg (27.0-33.4); MEAN CORPUSCULAR VOLUME 97 fl (80-97); PLATELET COUNT 317 10^3/uL (150-450); RED BLOOD COUNT 3.08 10^6/uL (3.72-5.28); RED CELL DISTRIBUTION WIDTH 15.1 % (11.5-14.0); WHITE BLOOD COUNT 9.8 10^3/uL (4.0-10.5)
[2019-09-29 10:03] LABS: ALBUMIN 2.8 g/dL (3.5-5.0); ALKALINE PHOSPHATASE 140 U/L (38-126); ANION GAP 5 (5-19); ASPARTATE AMINO TRANSFERASE 24 U/L (14-36); BILIRUBIN,DIRECT 0.2 mg/dL (0.0-0.4); BILIRUBIN,TOTAL 0.2 mg/dL (0.2-1.3); BLOOD UREA NITROGEN 9 mg/dL (7-20); CALCIUM 8.1 mg/dL (8.4-10.2); CARBON DIOXIDE 26 mmol/L (22-30); CHLORIDE 108 mmol/L (98-107); GLUCOSE 85 mg/dL (75-110); POTASSIUM 3.8 mmol/L (3.6-5.0); TOTAL PROTEIN 5.1 g/dL (6.3-8.2)
[2019-09-29 10:15] LABS: ABSOLUTE LYMPHOCYTES# (MANUAL) 2.5 10^3/uL (0.5-4.7); ABSOLUTE MONOCYTES # (MANUAL) 0.4 10^3/uL (0.1-1.4); BAND NEUTROPHILS % (MANUAL) 1 % (3-5); BASOPHILS % (MANUAL) 1 % (0-2); EOSINOPHILS % (MANUAL) 4 % (0-6); LYMPHOCYTES % (MANUAL) 26 % (13-45); MONOCYTES % (MANUAL) 4 % (3-13); SEGMENTED NEUTROPHILS % (MAN) 64 % (42-78); TOTAL CELLS COUNTED 100
[2019-09-29 10:16] LABS: ANISOCYTOSIS SLIGHT; PLATELET COMMENT ADEQUATE; POLYCHROMASIA SLIGHT
--- NOTE | 2019-09-29 19:41 | PDOC TRANSFER SUMMARY ---
Impression - Admit/DC Date/PCP Admission Date/Primary Care Provider: 09/22/19 15:42 JOHN CANNON MD Discharge Date: 09/30/19 - Discharge Diagnosis (1) Bilateral pneumonia Is this a current diagnosis for this admission?: Yes (2) Hypotension Is this a current diagnosis for this admission?: Yes (3) Adrenal insufficiency Is this a current diagnosis for this admission?: Yes (4) Chronic ulcer of left leg Is this a current diagnosis for this admission?: Yes (5) History of hip replacement Is this a current diagnosis for this admission?: Yes (6) Hypoalbuminemia Is this a current diagnosis for this admission?: Yes (7) Anxiety and depression Is this a current diagnosis for this admission?: Yes (8) Sepsis Is this a current diagnosis for this admission?: Yes - Additional Information Resuscitation Status: Full Code Discharge Diet: Regular Referrals: JOHN CANNON MD [Primary Care Provider] - Follow up as needed Home Medications: Alprazolam [Xanax 0.25 mg Tablet] 0.25 mg PO Q8 07/03/19 Benztropine Mesylate [Cogentin 1 mg Tablet] 1 mg PO DAILY 07/03/19 Esomeprazole Mag Trihydrate [Nexium] 40 mg PO DAILY 07/03/19 Fluticasone/Umeclidin/Vilanter [Trelegy 100-62.5-25 Mcg Ellipta 14 Dose/Dpi] 1 inh IH DAILY 07/03/19 Gabapentin [Neurontin 300 mg Capsule] 300 mg PO Q8 07/03/19 Levothyroxine Sodium [Synthroid 0.088 mg Tablet] 0.088 mg PO Q6AM 07/03/19 Lurasidone HCl [Latuda 40 mg Tablet] 40 mg PO DAILY 07/03/19 Naloxegol Oxalate [Movantik 25 mg Tablet] 25 mg PO QAM 07/03/19 Sertraline HCl [Zoloft 50 mg Tablet] 100 mg PO DAILY 07/03/19 Amitriptyline HCl [Elavil 50 mg Tablet] 50 mg PO QHS 09/22/19 Aspirin [Ecotrin 81 mg EC Tablet] 81 mg PO DAILY 09/22/19 Biotin [Biotin 5 mg Tablet] 5 mg PO DAILY PRN 09/22/19 Multivitamin [Tab-A-Jose (Multiple Vitamin) Tablet] 1 tab PO DAILY 09/22/19 Oxycodone HCl [Oxy-Ir 5 mg Tablet] 10 mg PO Q6HP PRN 09/22/19 Varenicline Tartrate [Chantix 1 mg Tablet] 1 mg PO Q12 09/22/19 Hydrocortisone [Cortef 10 mg Tablet] 10 mg PO QPM tablet 09/29/19 Hydrocortisone [Cortef 10 mg Tablet] 20 mg PO QAM tablet 09/29/19 History of Present Illiness History of Present Illness: [place] is a 49 year old female, She came to the emergency room for evaluation of chest pain, cough and fever. She has these symptoms for the last few days, a chest x-ray was done in the emergency room, it demonstrated diffuse bilateral interstitial airspace disease there was severe leukocytosis WBC was 20,000 with profound hypotension. 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 She was supposed to come to the office to confirm if she has Adams's disease or not. 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 She was seeing a physician in [facility] previously that prescribed fludrocortisone and presently she is also taking antihypertensive medication which is weird considering the fact that she has persistent chronic hypotension Hospital Course Hospital Course: Patient was admitted for the management of bilateral pneumonia, profound hypotension with sepsis picture. She was treated with IV antibiotic empirically vancomycin and aztreonam. There was questionable history of adrenal insufficiency, she was treated with stress dose of hydrocortisone, 100 mg IV every 8 hours she also required for a short period of time intravenous dopamine, the blood pressure was restored patient improved significantly on this regimen. She also add intravenous IV fluids. The plan is to discharge patient to shelter for rehabilitation and probably long-term stay. Physical Exam Vital Signs: Temp Pulse Resp BP Pulse Ox 98.3 F 83 16 118/65 96 09/29/19 14:53 09/29/19 14:53 09/29/19 14:53 09/29/19 14:53 09/29/19 14:53 Intake & Output 09/28/19 09/29/19 09/30/19 06:59 06:59 06:59 Intake Total 2120 1460 1100 Balance 212 1460 1100 Weight 63.5 kg 63 kg General appearance: PRESENT: no acute distress Eye exam: PRESENT: PERRLA Respiratory exam: PRESENT: clear to auscultation rona Cardiovascular exam: PRESENT: +S1, +S2 GI/Abdominal exam: PRESENT: soft Neurological exam: PRESENT: alert, CN II-XII grossly intact Results Laboratory Results: WBC 9.8 10^3/uL (4.0-10.5) 09/29/19 09:32 RBC 3.08 10^6/uL (3.72-5.28) L 09/29/19 09:32 Hgb 9.8 g/dL (12.0-15.5) L 09/29/19 09:32 Hct 29.7 % (36.0-47.0) L 09/29/19 09:32 MCV 97 fl (80-97) 09/29/19 09:32 MCH 31.8 pg (27.0-33.4) 09/29/19 09:32 MCHC 33.0 g/dL (32.0-36.0) 09/29/19 09:32 RDW 15.1 % (11.5-14.0) H 09/29/19 09:32 Plt Count 317 10^3/uL (150-450) 09/29/19 09:32 Lymph % (Auto) Not Reportable 09/29/19 09:32 Mcdonough % (Auto) Not Reportable 09/29/19 09:32 Eos % (Auto) Not Reportable 09/29/19 09:32 Baso % (Auto) Not Reportable 09/29/19 09:32 Absolute Neuts (auto) Not Reportable 09/29/19 09:32 Absolute Lymphs (auto) Not Reportable 09/29/19 09:32 Absolute Monos (auto) Not Reportable 09/29/19 09:32 Absolute Eos (auto) Not Reportable 09/29/19 09:32 Absolute Basos (auto) Not Reportable 09/29/19 09:32 Total Counted 100 09/29/19 09:32 Seg Neutrophils % Not Reportable 09/29/19 09:32 Seg Neuts % (Manual) 64 % (42-78) 09/29/19 09:32 Band Neutrophils % 1 % (3-5) L 09/29/19 09:32 Lymphocytes % (Manual) 26 % (13-45) 09/29/19 09:32 Monocytes % (Manual) 4 % (3-13) 09/29/19 09:32 Eosinophils % (Manual) 4 % (0-6) 09/29/19 09:32 Basophils % (Manual) 1 % (0-2) 09/29/19 09:32 Abs Neuts (Manual) 6.4 10^3/uL (1.7-8.2) 09/29/19 09:32 Abs Lymphs (Manual) 2.5 10^3/uL (0.5-4.7) 09/29/19 09:32 Abs Monocytes (Manual) 0.4 10^3/uL (0.1-1.4) 09/29/19 09:32 Absolute Eos (Manual) 0.4 10^3/uL (0.0-0.6) 09/29/19 09:32 Abs Basophils (Manual) 0.1 10^3/uL (0.0-0.2) 09/29/19 09:32 Toxic Granulation SLIGHT 09/26/19 05:30 Platelet Comment ADEQUATE 09/29/19 09:32 Polychromasia SLIGHT 09/29/19 09:32 Anisocytosis SLIGHT 09/29/19 09:32 RBC Morph Comment NORMO-CYTIC/CHROMIC 09/26/19 05:30 PT 13.6 SEC (11.4-15.4) 09/22/19 13:20 INR 1.04 09/22/19 13:20 Sodium 139.3 mmol/L (137-145) 09/29/19 09:32 Potassium 3.8 mmol/L (3.6-5.0) 09/29/19 09:32 Chloride 108 mmol/L (98-107) H 09/29/19 09:32 Carbon Dioxide 26 mmol/L (22-30) 09/29/19 09:32 Anion Gap 5 (5-19) 09/29/19 09:32 BUN 9 mg/dL (7-20) 09/29/19 09:32 Creatinine 0.54 mg/dL (0.52-1.25) 09/29/19 09:32 Est GFR ( Amer) > 60 (>60) 09/29/19 09:32 Est GFR (Non-Af Amer) Cancelled 09/26/19 05:30 Est GFR (MDRD) Non-Af > 60 (>60) 09/29/19 09:32 Glucose 85 mg/dL (75-110) 09/29/19 09:32 POC Glucose 118 mg/dL (70-110) H 09/22/19 11:20 Hemoglobin A1c % 5.0 % (4.7-6.0) 09/23/19 04:15 Lactic Acid 0.7 mmol/L (0.7-2.1) 09/22/19 13:20 Calcium 8.1 mg/dL (8.4-10.2) L 09/29/19 09:32 Total Bilirubin 0.2 mg/dL (0.2-1.3) 09/29/19 09:32 Direct Bilirubin 0.2 mg/dL (0.0-0.4) 09/29/19 09:32 Neonat Total Bilirubin Not Reportable 09/29/19 09:32 Neonat Direct Bilirubin Not Reportable 09/29/19 09:32 Neonat Indirect Bili Not Reportable 09/29/19 09:32 AST 24 U/L (14-36) 09/29/19 09:32 ALT 16 U/L (<35) 09/29/19 09:32 Alkaline Phosphatase 140 U/L (38-126) H 09/29/19 09:32 Creatine Kinase 62 U/L (30-135) 09/22/19 18:34 CK-MB (CK-2) < 0.22 ng/mL (<4.55) 09/22/19 18:34 NT-Pro-B Natriuret Pep 553 pg/mL (<125) H 09/22/19 18:34 Total Protein 5.1 g/dL (6.3-8.2) L 09/29/19 09:32 Albumin 2.8 g/dL (3.5-5.0) L 09/29/19 09:32 EGFR Cancelled 09/26/19 05:30 Urine Color YELLOW 09/23/19 06:37 Urine Appearance CLEAR 09/23/19 06:37 Urine pH 5.0 (5.0-9.0) 09/23/19 06:37 Ur Specific Spring 1.015 09/23/19 06:37 Urine Protein NEGATIVE mg/dL (NEGATIVE) 09/23/19 06:37 Urine Glucose (UA) NEGATIVE mg/dL (NEGATIVE) 09/23/19 06:37 Urine Ketones NEGATIVE mg/dL (NEGATIVE) 09/23/19 06:37 Urine Blood NEGATIVE (NEGATIVE) 09/23/19 06:37 Urine Nitrite NEGATIVE (NEGATIVE) 09/23/19 06:37 Urine Bilirubin NEGATIVE (NEGATIVE) 09/23/19 06:37 Urine Urobilinogen NEGATIVE mg/dL (<2.0) 09/23/19 06:37 Ur Leukocyte Esterase NEGATIVE (NEGATIVE) 09/23/19 06:37 Urine WBC (Auto) 1 /HPF 09/23/19 06:37 U Hyaline Cast (Auto) 37 /LPF 09/23/19 06:37 Squamous Epi Cells Auto 1 /HPF 09/23/19 06:37 Urine Mucus (Auto) RARE /LPF 09/23/19 06:37 Urine Ascorbic Acid 40 (NEGATIVE) H 09/23/19 06:37 Time Trough Drawn 1530 09/26/19 15:30 Vancomycin Trough 14.7 ug/mL (5.0-20.0) 09/26/19 15:30 09/22/19 09/22/19 13:20 18:34 CK-MB (CK-2) < 0.22 NT-Pro-B Natriuret Pep 177 H 553 H Impressions: Chest X-Ray 09/22/19 11:08 IMPRESSION: Diffuse bilateral interstitial airspace disease similar to prior exam in June. This may represent recurrent edema. Chest X-Ray 09/24/19 00:00 IMPRESSION: Significantly improved aeration bilaterally most consistent with resolving interstitial edema. PICC Line Insertion 09/24/19 00:00 IMPRESSION: UNSUCCESSFUL PLACEMENT OF A RIGHT PICC LINE DUE TO VASOSPASM. PLAN FOR TUNNELED PICC CATHETER THROUGH JUGULAR APPROACH TOMORROW IN THE [facility]. Guidance Fluoroscopy 09/25/19 00:00 IMPRESSION: SUCCESSFUL PLACEMENT OF A 5 NORWEGIAN X 34 CM DOUBLE LUMEN PICC VIA THE RIGHT BASILIC VEIN UTILIZING FLUOROSCOPIC AND SONOGRAPHIC GUIDANCE. Guidance Ultrasound 09/25/19 00:00 IMPRESSION: SUCCESSFUL PLACEMENT OF A 5 NORWEGIAN X 34 CM DOUBLE LUMEN PICC VIA THE RIGHT BASILIC VEIN UTILIZING FLUOROSCOPIC AND SONOGRAPHIC GUIDANCE. PICC Line Insertion 09/25/19 00:00 IMPRESSION: SUCCESSFUL PLACEMENT OF A 5 NORWEGIAN X 34 CM DOUBLE LUMEN PICC VIA THE RIGHT BASILIC VEIN UTILIZING FLUOROSCOPIC AND SONOGRAPHIC GUIDANCE. Stroke Is this a Stroke Patient?: No Acute Heart Failure - Is this a Heart Failure Patient?: No
[2019-09-30] MEDS: ALPRAZOLAM 0.25 MG TABLET PO SCH ×2 (05:15→13:13)
[2019-09-30] MEDS: LEVOTHYROXINE SODIUM 0.088 MG TABLET PO SCH (05:15)
[2019-09-30] MEDS: HEPARIN SOD (PORCINE) 5,000 UNIT/ML 1 ML VIAL SUBCUT SCH ×2 (05:15→13:12)
[2019-09-30] MEDS: PANTOPRAZOLE SODIUM 40 MG TABLET.DR PO SCH (05:15)
[2019-09-30] MEDS: OXYCODONE HCL IR 5 MG TABLET PO PRN ×2 (05:22→12:59)
[2019-09-30] MEDS: BENZTROPINE MESYLATE 1 MG TABLET PO SCH (09:45)
[2019-09-30] MEDS: FLUTICASONE/UMECLIDIN/VILANTER 100-62.5-25 MCG/DOSE IH SCH (09:45)
[2019-09-30] MEDS: MULTIVITAMIN TABLET PO SCH (09:45)
[2019-09-30] MEDS: VARENICLINE TARTRATE 1 MG TABLET PO SCH (09:45)
[2019-09-30] MEDS: LURASIDONE HCL 40 MG TABLET PO SCH (09:45)
[2019-09-30] MEDS: HYDROCORTISONE 10 MG TABLET PO SCH (09:45)
[2019-09-30] MEDS: ASPIRIN 81 MG TABLET, ENT COATED PO SCH (09:45)
[2019-09-30] MEDS: SERTRALINE HCL 50 MG TABLET PO SCH (09:45)
[2019-09-30 16:05] VITALS: BP 118/53
--- NOTE | 2019-10-15 00:32 | Physician Advisory Note ---
Physician Advisor ProgressNote .: Pursuant to the plan for [facility], I have reviewed the medical record for this patient. Physician Advisor Statement: Attending, please clarify in documentation: 1. Was there another pulmonary dx which was being acutely tx'd this adm (w/O2 x days)? ("Ac Hypoxemic Resp Failure"? "Chronic Hypoxemic Resp Failure"? "Ac on Chronic Hypoxemic Resp Failure, pt needing ___L O2 at baseline"? or ...?) - What findings supported this dx? 2. Was there an acute renal dx which was followed/tx'd this adm as well? (BRUCE? Dehydration alone? or ...?) 3. DCS says there was sepsis present. No prior attending notes state sepsis was present. Please clarify: A. Was sepsis present on adm or developed after adm? B. What organ dysfn was due to sepsis (at least in part)? (Hypotension >> baseline degree of hypotension? AcRespF? BRUCE? all?, none?, ...?) C. type of sepsis= "severe sepsis with septic shock, evidenced by * "? or "severe sepsis without septic shock, evidenced by * "? or "mild sepsis, no acute organ dysfn caused by sepsis" (i.e. hypotension was only d/t [place]'s dz &/or meds, hypoxemia only d/t PNA &/or COPD, ...) *What findings support the dx of sepsis? (May use findings noted below that you believe were at least partly due to the sepsis.) Noted in chart: Respiratory: - (+)COPD, continued smoking, "supposed to be on O2 at home but Medicaid wouldn't pay for it" per hx given by EMS to ED nurse. [Therefore, pt likely didn't have qualifying O2 sats at baseline, correct?] -[ On last d/c date, 07/10/19 (PNA/sepsis adm then), O2 sats were 91-99% on 2L O2 (P/F ratios 221-518), then 91% on RA (P/F ratio 295). ] - Initial O2 sats 89% RA for EMS, 81/80/85% on [?RA] initially in ED, 91% on 2L O2, 93% on 4L O2 per initial ED nurse (=P/F ratios 192-271, mostly lowest 200s). - Initially w/RRs 20s-30s on day1, reporting SOB & orthopnea per ED nurse report. - On date of d/c this adm O2 sat 98% RA (P/F ratio 533). Renal: - Cr 1.38 on arrival, dropped to 0.40 with tx. Cr was consistently 0.3s-0.4s during Jun adm. Sepsis criteria (if due to sepsis): - (+) infxn - Severe hypotension (MAPs in 40s-50s sustained initially, was tx'd w/IV dopamine [6ml/hr] x 3days & IVF [30ml/kg then 100ml/hr x4d] in addition to hydrocortisone) - Resp dysfn (P/F ratios as above) - Renal dysfn (Cr 1.38) - In w/tachypnea 20s-30s persistent, WBC 20.5. 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 - Reported fever of 102 at home, & ED dr documented using that towards dx PNA. Thanks! CK
== END 2019-09-30 16:30 | disposition home health service (06) | DRG 871 ==
LOC: ER 11:06 → EH 15:42 → 3S 17:51
PROVIDERS: ADMIT Internal Medicine; ATTEND Internal Medicine
PROC: 05JY3ZZ Inspection of Upper Vein, Percutaneous Approach (ICD-10-PCS; 2019-09-24)
PROC: 02HV33Z Insertion of Infusion Device into Superior Vena Cava, Percutaneous Approach (ICD-10-PCS; principal; 2019-09-25)
PROC: B5181ZA Fluoroscopy of Superior Vena Cava using Low Osmolar Contrast, Guidance (ICD-10-PCS; 2019-09-25)
PROC: B548ZZA Ultrasonography of Superior Vena Cava, Guidance (ICD-10-PCS; 2019-09-25)
DX: A41.9 Sepsis, unspecified organism (principal); J18.9 Pneumonia, unspecified organism; R65.21 Severe sepsis with septic shock; E27.40 Unspecified adrenocortical insufficiency; J44.0 Chronic obstructive pulmonary disease with (acute) lower respiratory infection; L97.922 Non-pressure chronic ulcer of unspecified part of left lower leg with fat layer exposed; N17.9 Acute kidney failure, unspecified; F41.9 Anxiety disorder, unspecified; F32.9 Major depressive disorder, single episode, unspecified; E78.5 Hyperlipidemia, unspecified; I10 Essential (primary) hypertension; K21.9 Gastro-esophageal reflux disease without esophagitis; J44.9 Chronic obstructive pulmonary disease, unspecified; D64.9 Anemia, unspecified; F17.210 Nicotine dependence, cigarettes, uncomplicated; I95.0 Idiopathic hypotension; Z96.642 Presence of left artificial hip joint; I87.2 Venous insufficiency (chronic) (peripheral); Z83.3 Family history of diabetes mellitus; Z82.49 Family history of ischemic heart disease and other diseases of the circulatory system; Z79.82 Long term (current) use of aspirin; Z79.899 Other long term (current) drug therapy; Z88.1 Allergy status to other antibiotic agents; Z88.0 Allergy status to penicillin; Z88.2 Allergy status to sulfonamides; Z85.43 Personal history of malignant neoplasm of ovary
CPT/HCPCS: 36415; 36569; 71045; 76937; 77001; 80048; 80053; 80202; 81001; 82550; 82553; 82565; 82962; 83036; 83605; 83880; 85025; 85610; 87040; 87086; 87205; 93005; 93010; 96361; 96374; 99291; C1752; C1769; J1265; J1642; J1644; J1720; J1940; J3370; J3480; J3490; J7030; J7050; J7060; J7120

== ENCOUNTER 2019-12-09 13:49 | Inpatient (IN) | payer MEDICARE, MEDICAID ==
[2019-12-09] MEDS ORDERED: METHYLPREDNISOLONE INJ 125 MG/2 ML SDV IV ONE (14:30)
--- NOTE | 2019-12-09 14:39 | EKG REPORT ---
SEVERITY:- ABNORMAL ECG - SINUS RHYTHM BORDERLINE LEFT AXIS DEVIATION NONSPECIFIC T ABNORMALITIES, LATERAL LEADS : Confirmed by: Benitez Gabriel 09-Dec-2019 14:38:56
--- NOTE | 2019-12-09 14:58 | ER Document Report ---
ED General - General Chief Complaint: Shortness Of Breath Stated Complaint: SHORTNESS OF BREATH Time Seen by Provider: 12/09/19 14:18 Primary Care Provider: JOHN CANNON MD [Primary Care Provider] - Follow up as needed Mode of Arrival: Medic Information source: Patient TRAVEL OUTSIDE OF THE [place] IN LAST 30 DAYS: No - HPI Notes: Patient presents with shortness of breath. She states she has a history of COPD. She denies a history of CHF. She states she does smoke 1/2 pack/day. She states she has had no recent cough or cold symptoms. She states that when she woke up today she began to have trouble breathing and is increased throughout the day. Paramedics state that they found the patient with an oxygen saturation of 84% on room air. She states when she breathes in she gets a sharp chest pain. This pain is better when she does not breathing. It radiates across her chest. It is moderate and sharp. It is intermittent. She is had no vomiting or diarrhea. She did receive 2 breathing treatments in route and states this has made her feel somewhat better. - Related Data Allergies/Adverse Reactions: cilastatin [From Primaxin IV] Allergy (Intermediate, Verified 09/22/19 11:16) Facial swelling imipenem [From Primaxin IV] Allergy (Intermediate, Verified 09/22/19 11:16) Facial swelling Penicillins Allergy (Mild, Verified 09/22/19 11:16) Generalized rash Sulfa (Sulfonamide Antibiotics) Allergy (Mild, Verified 09/22/19 11:16) Generalized rash Past Medical History - General Information source: Patient - Social History Smoking Status: Current Every Day Smoker Frequency of alcohol use: None Drug Abuse: None Family History: DM, Hypertension - Past Medical History Cardiac Medical History: Reports: Hx Hypercholesterolemia, Hx Hypertension Denies: Hx Atrial Fibrillation, Hx Congestive Heart Failure, Hx Coronary Artery Disease, Hx Heart Attack, Hx Peripheral Vascular Disease, Hx Pulmonary Embolism, Hx Heart Murmur Pulmonary Medical History: Reports: Hx COPD, Hx Pneumonia Denies: Hx Asthma, Hx Bronchitis, Hx Respiratory Failure, Hx Sleep Apnea, Hx Tuberculosis Neurological Medical History: Reports: Hx Cerebrovascular Accident. Denies: Hx Seizures, Hx Parkinson's Disease Endocrine Medical History: Reports: Hx Diabetes Mellitus Type 2, Hx Hypothyroidism. Denies: Hx Diabetes Mellitus Type 1, Hx Graves' Disease, Hx Hyperthyroidism Renal/ Medical History: Denies: Hx Ovarian Cysts, Hx Peritoneal Dialysis, Hx Pelvic Inflammatory Disease Malignancy Medical History: Reports: Hx Ovarian Cancer. Denies: Hx Breast Cancer, Hx Cervical Cancer, Hx Leukemia, Hx Lung Cancer GI Medical History: Reports: Hx Gastroesophageal Reflux Disease, Hx Ulcer, Hx Endoscopy. Denies: Hx Cirrhosis, Hx Crohn's Disease, Hx Hepatitis, Hx Hiatal Hernia, Hx Irritable Bowel, Hx Liver Failure, Hx Pancreatitis Musculoskeletal Medical History: Reports Hx Arthritis, Denies Hx Fibromyalgia, Denies Hx Multiple Sclerosis, Denies Hx Muscular Dystrophy, Denies Hx Systemic Lupus Erythematosus Skin Medical History: Denies Hx Eczema, Denies Hx Psoriasis Psychiatric Medical History: Reports: Hx Anxiety, Hx Bipolar Disorder, Hx De pression, Hx Schizophrenia Denies: Hx Dementia, Hx Post Traumatic Stress Disorder Traumatic Medical History: Reports: Hx Fractures - 3 fx, left hip fx 10/2017. Denies: Hx Pneumothorax Infectious Medical History: Denies: Hx Hepatitis, Hx HIV Past Surgical History: Reports: Hx Abdominal Surgery - gastric bypass, reversal, Hx Cholecystectomy, Hx Gastric Bypass Surgery, Hx Hysterectomy, Hx Orthopedic Surgery - LLE, left jaw, total left hip arthroplasty on 09/08/2018.. Denies: Hx Appendectomy, Hx Bowel Surgery, Hx Section, Hx Colostomy, Hx Coronary Artery Bypass Graft, Hx Herniorrhaphy, Hx Mastectomy, Hx Pacemaker, Hx Tonsillectomy, Hx Tubal Ligation - Immunizations Immunizations up to date: Yes Hx Diphtheria, Pertussis, Tetanus Vaccination: Yes Review of Systems - Review of Systems Constitutional: Malaise, Weakness Cardiovascular: Chest pain. denies: Palpitations Respiratory: Cough, Short of breath -: Yes All other systems reviewed and negative Physical Exam - Vital signs Interpretation: Hypoxic - 84% here on room air - General General appearance: Appears well, Alert In distress: Moderate - HEENT Head: Normocephalic, Atraumatic Eyes: Normal Pupils: PERRL - Respiratory Respiratory status: No respiratory distress Chest status: Nontender Breath sounds: Decreased air movement, Wheezing Chest palpation: Normal - Cardiovascular Rhythm: Regular Heart sounds: Normal auscultation Murmur: No - Abdominal Inspection: Normal Distension: No distension Bowel sounds: Normal Tenderness: Nontender Organomegaly: No organomegaly - Back Back: Normal, Nontender - Extremities General upper extremity: Normal inspection, Nontender, Normal color, Normal ROM, Normal temperature General lower extremity: Normal inspection, Nontender, Normal color, Normal ROM, Normal temperature, Normal weight bearing. No: Ly's sign - Neurological Neuro grossly intact: Yes Cognition: Normal Orientation: AAOx4 [place] Coma Scale Eye Opening: Spontaneous [place] Coma Scale Verbal: Oriented [place] Coma Scale Motor: Obeys Commands [place] Coma Scale Total: 15 Speech: Normal Motor strength normal: LUE, RUE, LLE, RLE Sensory: Normal - Psychological Associated symptoms: Normal affect, Normal mood - Skin Skin Temperature: Warm Skin Moisture: Dry Skin Color: Normal Course - Re-evaluation Re-evalutation: 12/09/19 16:01 Patient presents with severe shortness of breath. Patient was hypoxic on pres entation but was significantly better after treatment and oxygen. Chest x-ray shows bilateral pneumonia. Patient has been started on antibiotics. Lactate at this time is still pending however IV fluids have been started. Potassium is low and this is been replaced. I have contacted Dr. Cannon her primary care physician. He will come and see the patient. Patient is also slightly acidotic by blood gas. However since patient is significantly better I will not institute BiPAP at this time. I have discussed this with Dr. Cannon. I feel may be the best thing at this time is to repeat the gas in several hours and see if the CO2 is continuing to increase. - Laboratory Result Diagrams: 12/09/19 14:45 12/09/19 14:45 Laboratory results interpreted by me: 12/09/19 12/09/19 12/09/19 14:45 14:45 14:45 WBC 14.4 H Hgb 11.1 L Hct 34.7 L MCHC 31.9 L RDW 17.0 H [place] % (Auto) 2.7 L Absolute Neuts (auto) 11.8 H Seg Neutrophils % 82.3 H VBG pH Potassium 2.7 L* Chloride 109 H Calcium 8.1 L Total Bilirubin 0.1 L Alkaline Phosphatase 249 H NT-Pro-B Natriuret Pep 167 H Total Protein 5.4 L Albumin 2.8 L 12/09/19 14:45 WBC Hgb Hct MCHC RDW [place] % (Auto) Absolute Neuts (auto) Seg Neutrophils % VBG pH 7.29 L Potassium Chloride Calcium Total Bilirubin Alkaline Phosphatase NT-Pro-B Natriuret Pep Total Protein Albumin - Diagnostic Test Radiology reviewed: Image reviewed, Reports reviewed - EKG Interpretation by Me EKG shows normal: Sinus rhythm Rate: Normal - 95 Rhythm: NSR [place]/QRS: Left axis deviation Critical Care Note - Critical Care Note Total time excluding time spent on procedures (mins): 55 Comments: Approximately 55 minutes of critical care time were spent managing this patient's hypoxic pneumonia. This included multiple reassessments. It included reviewing old records. It included discussions with consultants. It included reviewing imaging and laboratory values. Discharge - Discharge Clinical Impression: Hypokalemia Pneumonia Qualifiers: Pneumonia type: due to unspecified organism Laterality: bilateral Lung location: unspecified part of lung Qualified Code(s): J18.9 - Pneumonia, unspecified organism Nicotine dependence Qualifiers: Nicotine product type: cigarettes Substance use status: uncomplicated Qualified Code(s): F17.210 - Nicotine dependence, cigarettes, uncomplicated Sepsis Qualifiers: Sepsis type: sepsis due to unspecified organism Sepsis acute organ dysfunction status: with acute organ dysfunction Severe sepsis acute organ dysfunction type: acute respiratory failure Acute respiratory failure type: with hypoxia Severe sepsis shock status: without septic shock Qualified Code(s): A41.9 - Sepsis, unspecified organism; R65.20 - Severe sepsis without septic shock; J96.01 - Acute respiratory failure with hypoxia Condition: Critical Disposition: ADMITTED INPATIENT Admitting Provider: [facility] Admitted: Telemetry Referrals: JOHN CANNON MD [Primary Care Provider] - Follow up as needed
[2019-12-09 15:09] LABS: VENOUS BLOOD BASE EXCESS -2.5 mmol/L; VENOUS BLOOD HCO3 24.4 mmol/L (20-32); VENOUS BLOOD PCO2 51.7 mmHg (35-63); VENOUS BLOOD PH 7.29 (7.30-7.42)
[2019-12-09 15:11] LABS: ABSOLUTE BASOPHILS # (AUTO) 0.1 10^3/uL (0.0-0.2); ABSOLUTE EOSINOPHILS # (AUTO) 0.2 10^3/uL (0.0-0.6); ABSOLUTE LYMPHOCYTES (AUTO) 1.9 10^3/uL (0.5-4.7); ABSOLUTE MONOCYTES (AUTO) 0.4 10^3/uL (0.1-1.4); ABSOLUTE NEUT (AUTO) 11.8 10^3/uL (1.7-8.2); BASOPHILS % (AUTO) 0.4 % (0-2); EOSINOPHILS % (AUTO) 1.4 % (0-6); HEMATOCRIT 34.7 % (36.0-47.0); HEMOGLOBIN 11.1 g/dL (12.0-15.5); LYMPHOCYTES % (AUTO) 13.2 % (13-45); MEAN CORPUSCULAR HEMOGLOBIN 29.3 pg (27.0-33.4); MEAN CORPUSCULAR HGB CONC 31.9 g/dL (32.0-36.0); MEAN CORPUSCULAR VOLUME 92 fl (80-97); MONOCYTES % (AUTO) 2.7 % (3-13); PLATELET COUNT 227 10^3/uL (150-450); RED BLOOD COUNT 3.78 10^6/uL (3.72-5.28); SEGMENTED NEUTROPHILS % (AUTO) 82.3 % (42-78); TOTAL CELLS COUNTED % (AUTO) 100 %; WHITE BLOOD COUNT 14.4 10^3/uL (4.0-10.5)
--- NOTE | 2019-12-09 15:16 | RADIOLOGY REPORT (SQ) ---
EXAM DESCRIPTION: CHEST SINGLE VIEW COMPLETED DATE/TIME: 12/09/2019 3:06 pm REASON FOR STUDY: bed 21 db COMPARISON: 09/24/2019 EXAM PARAMETERS: NUMBER OF VIEWS: One view. TECHNIQUE: Single frontal radiographic view of the chest acquired. RADIATION DOSE: NA LIMITATIONS: None. FINDINGS: LUNGS AND PLEURA: Increased patchy bilateral airspace disease, greatest within the left mi d and lower lung. No large effusion. No pneumothorax. MEDIASTINUM AND HILAR STRUCTURES: No masses. Contour normal. HEART AND VASCULAR STRUCTURES: Enlarged, stable. BONES: No acute findings. HARDWARE: Clips overlies upper after. OTHER: No other significant finding. IMPRESSION: Patchy bilateral airspace disease greatest within the left mid and lower lung suggestive of multifocal pneumonia. TECHNICAL DOCUMENTATION: JOB ID: [id number] [employer]- All Rights Reserved Reading location - IP/workstation name: [email or web address]
[2019-12-09 15:27] LABS: ALBUMIN 2.8 g/dL (3.5-5.0); ALKALINE PHOSPHATASE 249 U/L (38-126); ANION GAP 6 (5-19); ASPARTATE AMINO TRANSFERASE 31 U/L (14-36); BILIRUBIN,TOTAL 0.1 mg/dL (0.2-1.3); BLOOD UREA NITROGEN 15 mg/dL (7-20); CALCIUM 8.1 mg/dL (8.4-10.2); CARBON DIOXIDE 25 mmol/L (22-30); CHLORIDE 109 mmol/L (98-107); GLUCOSE 95 mg/dL (75-110); TOTAL PROTEIN 5.4 g/dL (6.3-8.2)
[2019-12-09 15:41] LABS: POTASSIUM 2.7 mmol/L (3.6-5.0)
[2019-12-09 15:44] LABS: NT PRO BNP 167 pg/mL (<125)
[2019-12-09 15:46] LABS: TROPONIN I < 0.012 ng/mL
[2019-12-09] MEDS ORDERED: LEVOFLOXACIN 750 MG/D5W RTU 750 MG/150 ML RTUPB IV ONE (15:52)
[2019-12-09] MEDS ORDERED: NORMAL SALINE 1000 ML 1,000 ML IV ONE (15:53)
[2019-12-09 17:11] LABS: APPEARANCE,URINE CLEAR; BILIRUBIN,URINE NEGATIVE (NEGATIVE); COLOR,URINE YELLOW; GLUCOSE, URINE NEGATIVE (NEGATIVE); KETONES,URINE NEGATIVE (NEGATIVE); LEUKOCYTE ESTERASE,URINE NEGATIVE (NEGATIVE); NITRITE,URINE NEGATIVE (NEGATIVE); PROTEIN,URINE NEGATIVE (NEGATIVE); URINE SPECIFIC GRAVITY 1.013; UROBILINOGEN,URINE NEGATIVE mg/dL (<2.0)
[2019-12-09] MEDS: POTASSI CL 20 MEQ/50 ML RIDER 20 MEQ/50 ML RTUPB IV SCH ×2 (17:54→19:57)
[2019-12-09 18:14] LABS: ARTERIAL BLOOD H2CO3 1.26 mmol/L (1.05-1.35); ARTERIAL BLOOD HCO3 23.3 mmol/L (20-24); ARTERIAL BLOOD O2 SATURATION 90.6 % (94-98); ARTERIAL BLOOD PCO2 41.7 mmHg (35-45); ARTERIAL BLOOD PH 7.37 (7.35-7.45); ARTERIAL BLOOD TOTAL CO2 24.6 mmol/L (21-25)
[2019-12-09 18:15] LABS: ARTERIAL BLOOD FIO2 4L
[2019-12-09] MEDS: HEPARIN SOD (PORCINE) 5,000 UNIT/ML 1 ML VIAL SUBCUT SCH (20:00)
[2019-12-09 21:16] LABS: ALBUMIN 2.4 g/dL (3.5-5.0); ALKALINE PHOSPHATASE 200 U/L (38-126); ANION GAP 8 (5-19); ASPARTATE AMINO TRANSFERASE 32 U/L (14-36); BILIRUBIN,DIRECT 0.2 mg/dL (0.0-0.4); BILIRUBIN,TOTAL 0.2 mg/dL (0.2-1.3); BLOOD UREA NITROGEN 13 mg/dL (7-20); CALCIUM 7.6 mg/dL (8.4-10.2); CARBON DIOXIDE 20 mmol/L (22-30); CHLORIDE 113 mmol/L (98-107); CREATINE KINASE 20 U/L (30-135); GLUCOSE 127 mg/dL (75-110); TOTAL PROTEIN 4.9 g/dL (6.3-8.2)
[2019-12-09 21:27] LABS: CREATINE KINASE MB < 0.22 ng/mL (<4.55); TROPONIN I < 0.012 ng/mL
[2019-12-09 21:30] LABS: POTASSIUM 2.9 mmol/L (3.6-5.0)
[2019-12-09] MEDS: POTASSIUM CHLORIDE 20 MEQ/50 ML RTU IV SCH (22:31)
[2019-12-09 23:22] LABS: APPEARANCE,URINE CLEAR; BILIRUBIN,URINE NEGATIVE (NEGATIVE); COLOR,URINE YELLOW; GLUCOSE, URINE NEGATIVE (NEGATIVE); KETONES,URINE NEGATIVE (NEGATIVE); LEUKOCYTE ESTERASE,URINE NEGATIVE (NEGATIVE); NITRITE,URINE NEGATIVE (NEGATIVE); PROTEIN,URINE NEGATIVE (NEGATIVE); URINE SPECIFIC GRAVITY 1.012; UROBILINOGEN,URINE NEGATIVE mg/dL (<2.0)
[2019-12-09] MEDS ORDERED: POTASSIUM CHLORIDE 10 MEQ TABLET.ER PO ONE (23:30)
[2019-12-10] MEDS: AZTREONAM 1 GM in DEXTROSE 5%-WATER 50 ML IV SCH ×4 (00:24→21:24)
[2019-12-10] MEDS: POTASSIUM CHLORIDE 20 MEQ/50 ML RTU IV SCH ×2 (01:18→03:57)
[2019-12-10] MEDS: HEPARIN SOD (PORCINE) 5,000 UNIT/ML 1 ML VIAL SUBCUT SCH ×3 (02:29→17:31)
[2019-12-10 05:23] LABS: ALBUMIN 2.6 g/dL (3.5-5.0); ALKALINE PHOSPHATASE 222 U/L (38-126); ANION GAP 5 (5-19); ASPARTATE AMINO TRANSFERASE 40 U/L (14-36); BILIRUBIN,TOTAL 0.2 mg/dL (0.2-1.3); BLOOD UREA NITROGEN 13 mg/dL (7-20); CALCIUM 8.4 mg/dL (8.4-10.2); CARBON DIOXIDE 22 mmol/L (22-30); CHLORIDE 118 mmol/L (98-107); GLUCOSE 134 mg/dL (75-110); TOTAL PROTEIN 5.3 g/dL (6.3-8.2)
[2019-12-10 05:30] LABS: POTASSIUM 4.9 mmol/L (3.6-5.0)
[2019-12-10 05:36] LABS: ABSOLUTE LYMPHOCYTES (AUTO) 0.7 10^3/uL (0.5-4.7); ABSOLUTE MONOCYTES (AUTO) 0.3 10^3/uL (0.1-1.4); ABSOLUTE NEUT (AUTO) 12.4 10^3/uL (1.7-8.2); BASOPHILS % (AUTO) 0.1 % (0-2); HEMATOCRIT 36.8 % (36.0-47.0); HEMOGLOBIN 11.9 g/dL (12.0-15.5); LYMPHOCYTES % (AUTO) 5.1 % (13-45); MEAN CORPUSCULAR HEMOGLOBIN 29.7 pg (27.0-33.4); MEAN CORPUSCULAR HGB CONC 32.4 g/dL (32.0-36.0); MEAN CORPUSCULAR VOLUME 92 fl (80-97); MONOCYTES % (AUTO) 2.4 % (3-13); PLATELET COUNT 219 10^3/uL (150-450); RED BLOOD COUNT 4.02 10^6/uL (3.72-5.28); RED CELL DISTRIBUTION WIDTH 17.2 % (11.5-14.0); SEGMENTED NEUTROPHILS % (AUTO) 92.4 % (42-78); TOTAL CELLS COUNTED % (AUTO) 100 %; WHITE BLOOD COUNT 13.4 10^3/uL (4.0-10.5)
[2019-12-10] MEDS: RINGERS SOLUTION,LACTATED 1,000 ML IV PRN ×2 (06:31→17:32)
[2019-12-10] MEDS: ACETAMINOPHEN 325 MG TABLET PO PRN (12:17)
[2019-12-10] MEDS: IPRATROPIUM/ALBUTEROL 0.5-2.5 MG/3 ML AMPUL NEB PRN (14:41)
[2019-12-10] MEDS: LEVOFLOXACIN 750 MG/D5W RTU 750 MG/150 ML RTUPB IV SCH (17:31)
[2019-12-10] MEDS ORDERED: HYDROCODONE/ACETAMINOPHEN 5-325 MG (6 TAB/ER DISP) PO PRN (18:44)
[2019-12-10] MEDS: BENZTROPINE MESYLATE 1 MG TABLET PO SCH (19:12)
[2019-12-10] MEDS: HYDROCODONE/ACETAMINOPHEN 5-325 MG TABLET PO PRN (19:12)
[2019-12-10] MEDS: AMITRIPTYLINE HCL 50 MG TABLET PO SCH (19:12)
--- NOTE | 2019-12-10 19:42 | RADIOLOGY REPORT (SQ) ---
EXAM DESCRIPTION: CHEST SINGLE VIEW COMPLETED DATE/TIME: 12/10/2019 7:17 pm REASON FOR STUDY: bilateral pneumonia COMPARISON: 12/09/2019 EXAM PARAMETERS: NUMBER OF VIEWS: One view. TECHNIQUE: Single frontal radiographic view of the chest acquired. RADIATION DOSE: NA LIMITATIONS: None. FINDINGS: LUNGS AND PLEURA: There is considerable bilateral opacification. A few air bronchograms a re seen on the left. MEDIASTINUM AND HILAR STRUCTURES: No masses. Contour normal. HEART AND VASCULAR STRUCTURES: Heart size is borderline. BONES: No acute findings. HARDWARE: None in the chest. OTHER: No other significant finding. IMPRESSION: Borderline heart size. Bilateral pneumonias versus pulmonary edema. TECHNICAL DOCUMENTATION: JOB ID: [id number] [employer]- All Rights Reserved Reading location - IP/workstation name: [email or web address]
[2019-12-10] MEDS: LURASIDONE HCL 40 MG TABLET PO SCH (19:59)
[2019-12-10] MEDS: SERTRALINE HCL 50 MG TABLET PO SCH (19:59)
--- NOTE | 2019-12-10 21:21 | PDOC H&P ---
History of Present Illness Admission Date/PCP: 12/09/19 16:13 JOHN CANNON MD History of Present Illness: [place] is a 49 year old female, She came to the emergency room for eval uation of shortness of breath, she has history of COPD, she continues to abuse tobacco, smoked half a pack a day of cigarette. In the emergency room she was evaluated the oxygen saturation was 84% on ambient air according to the medical record from paramedics when she was transported to the emergency room.A chest x- ray was done in the emergency room, it demonstrated bilateral pneumonia she was also found to have low blood pressure, she has a history of adrenal insufficiency with tendency to have low blood pressure whenever she is under stress like infection Past Medical History Cardiac Medical History: Reports: Hyperlipidema, Hypertension Pulmonary Medical History: Reports: Chronic Obstructive Pulmonary Disease (COPD), Pneumonia Endocrine Medical History: Reports: Diabetes Mellitus Type 2, Hypothyroidism Malignancy Medical History: Reports: Ovarian Cancer GI Medical History: Reports: Gastroesophageal Reflux Disease Musculoskeltal Medical History: Reports: Arthritis Psychiatric Medical History: Reports: Bipolar Disorder, Depression Hematology: Reports: Anemia Past Surgical History Past Surgical History: Reports: Cholecystectomy, Gastric Bypass Surgery, Hysterectomy, Orthopedic Surgery - LLE, left jaw, total left hip arthroplasty on 09/08/2018. Social History Smoking Status: Current Every Day Smoker Cigarettes Packs Per Day: 0.5 Electronic Cigarette use?: No Frequency of Alcohol Use: None Hx Recreational Drug Use: No Drugs: None Hx Prescription Drug Abuse: No Family History Family History: DM, Hypertension Parental Family History Reviewed: Yes Children Family History Reviewed: Yes Sibling(s) Family History Reviewed.: Yes Medication/Allergy Home Medications: Alprazolam [Xanax 0.25 mg Tablet] 0.25 mg PO TID 12/09/19 Amitriptyline HCl [Elavil 50 Mg Tablet] 50 mg PO DAILY 12/09/19 Benztropine Mesylate [Cogentin 1 mg Tablet] 1 tab PO DAILY 12/09/19 Carvedilol [Coreg 3.125 mg Tablet] 3.125 mg PO DAILY 12/09/19 Esomeprazole Magnesium [Nexium 24Hr] 40 mg PO DAILY 12/09/19 Fluticasone/Umeclidin/Vilanter [Trelegy 100-62.5-25 Mcg Ellipta 14 Dose/Dpi] 1 each IH DAILY 12/09/19 Furosemide [Lasix 40 mg Tablet] 40 mg PO Q12 12/09/19 Gabapentin [Neurontin 300 mg Capsule] 300 mg PO Q8 12/09/19 Hydrocodone/Acetaminophen [[place] 5-325 Tablet] 1 each PO Q4HP PRN 12/09/19 Ibuprofen [Motrin 800 mg Tablet] 800 mg PO Q8 12/09/19 Lurasidone HCl [Latuda 40 mg Tablet] 40 mg PO DAILY 12/09/19 Naloxegol Oxalate [Movantik 25 mg Tablet] 25 mg PO QAM 12/09/19 Ondansetron HCl [Zofran 8 mg Tablet] 16 mg PO Q12 12/09/19 RX: Phentermine HCl 15 mg PO DAILY 12/09/19 RX: Potassium Chloride 20 meq PO Q12 12/09/19 RX: Sertraline HCl 100 mg PO DAILY 12/09/19 Varenicline Tartrate [Chantix 1 mg Tablet] 1 mg PO Q12 12/09/19 Allergies/Adverse Reactions: cilastatin [From Primaxin IV] Allergy (Intermediate, Verified 09/22/19 11:16) Facial swelling imipenem [From Primaxin IV] Allergy (Intermediate, Verified 09/22/19 11:16) Facial swelling Penicillins Allergy (Mild, Verified 09/22/19 11:16) Generalized rash Sulfa (Sulfonamide Antibiotics) Allergy (Mild, Verified 09/22/19 11:16) Generalized rash Review of Systems Constitutional: ABSENT: chills, fever(s), headache(s), weight gain, weight loss Eyes: ABSENT: visual disturbances Ears: ABSENT: hearing changes Cardiovascular: ABSENT: chest pain, dyspnea on exertion, edema, orthropnea, palpitations Respiratory: PRESENT: dyspnea. ABSENT: cough, hemoptysis Gastrointestinal: ABSENT: abdominal pain, constipation, diarrhea, hematemesis, hematochezia, nausea, vomiting Genitourinary: ABSENT: dysuria, hematuria Musculoskeletal: ABSENT: joint swelling Integumentary: ABSENT: rash, wounds Neurological: ABSENT: abnormal gait, abnormal speech, confusion, dizziness, focal weakness, syncope Psychiatric: ABSENT: anxiety, depression, homidical ideation, suicidal ideation Endocrine: ABSENT: cold intolerance, heat intolerance, menstrual abnormalities, polydipsia, polyuria Hematologic/Lymphatic: ABSENT: easy bleeding, easy bruising, lymphadenopathy Physical Exam Vital Signs: Temp Pulse Resp BP Pulse Ox 99.1 F 106 H 46 H 113/48 L 100 12/10/19 20:00 12/10/19 20:00 12/10/19 20:00 12/10/19 20:00 12/10/19 20:00 Intake & Output 12/09/19 12/10/19 12/11/19 06:59 06:59 06:59 Intake Total 1870 1270 Output Total 2500 350 Balance -630 920 Weight 67.1 kg General appearance: PRESENT: mild distress Head exam: PRESENT: atraumatic, normocephalic Eye exam: PRESENT: PERRLA Ear exam: PRESENT: normal external ear exam Mouth exam: PRESENT: moist, tongue midline Neck exam: PRESENT: full ROM Respiratory exam: PRESENT: rhonchi Cardiovascular exam: PRESENT: RRR, +S1, +S2 Pulses: PRESENT: normal dorsalis pedis pul, +2 pedal pulses bilateral Vascular exam: PRESENT: normal capillary refill GI/Abdominal exam: PRESENT: normal bowel sounds, soft Rectal exam: PRESENT: deferred Neurological exam: PRESENT: alert, CN II-XII grossly intact Psychiatric exam: PRESENT: appropriate affect, normal mood. ABSENT: homicidal ideation, suicidal ideation Skin exam: PRESENT: dry, intact, warm. ABSENT: cyanosis, rash Results Laboratory Results: 12/10/19 04:18 12/10/19 04:18 12/09/19 12/09/19 12/09/19 20:36 20:36 23:05 WBC RBC Hgb Hct MCV MCH MCHC RDW Plt Count Seg Neutrophils % Sodium 140.8 Potassium 2.9 L* Chloride 113 H Carbon Dioxide 20 L Anion Gap 8 BUN 13 Creatinine 0.65 Est GFR ( Amer) > 60 Glucose 127 H Lactic Acid 1.6 Calcium 7.6 L Total Bilirubin 0.2 AST 32 Alkaline Phosphatase 200 H Total Protein 4.9 L Albumin 2.4 L Urine Color YELLOW Urine Appearance CLEAR Urine pH 5.0 Ur Specific [place] 1.012 Urine Protein NEGATIVE Urine Glucose (UA) NEGATIVE Urine Ketones NEGATIVE Urine Blood NEGATIVE Urine Nitrite NEGATIVE Ur Leukocyte Esterase NEGATIVE Urine WBC (Auto) 2 Urine RBC (Auto) 0 12/10/19 12/10/19 04:18 04:18 WBC 13.4 H RBC 4.02 Hgb 11.9 L Hct 36.8 MCV 92 MCH 29.7 MCHC 32.4 RDW 17.2 H Plt Count 219 Seg Neutrophils % 92.4 H Sodium 145.3 H Potassium 4.9 D Chloride 118 H Carbon Dioxide 22 Anion Gap 5 BUN 13 Creatinine 0.73 Est GFR ( Amer) > 60 Glucose 134 H Lactic Acid Calcium 8.4 Total Bilirubin 0.2 AST 40 H Alkaline Phosphatase 222 H Total Protein 5.3 L Albumin 2.6 L Urine Color Urine Appearance Urine pH Ur Specific [place] Urine Protein Urine Glucose (UA) Urine Ketones Urine Blood Urine Nitrite Ur Leukocyte Esterase Urine WBC (Auto) Urine RBC (Auto) 12/09/19 12/09/19 12/09/19 14:45 20:36 20:36 Creatine Kinase 20 L CK-MB (CK-2) < 0.22 Troponin I < 0.012 < 0.012 NT-Pro-B Natriuret Pep 167 H Impressions: Chest X-Ray 12/10/19 18:45 IMPRESSION: Borderline heart size. Bilateral pneumonias versus pulmonary edema. Assessment & Plan - Diagnosis (1) Bilateral pneumonia Qualifiers: Pneumonia type: due to unspecified organism Lung location: unspecified part of lung Qualified Code(s): J18.9 - Pneumonia, unspecified organism Is this a current diagnosis for this admission?: Yes Plan: Patient is admitted for the management of pneumonia, she will be treated empirically with intravenous Levaquin and aztreonam (2) Hypotension Is this a current diagnosis for this admission?: Yes Plan: Blood pressure is low start maintenance fluids with Ringer's lactate
[2019-12-10] MEDS: ALPRAZOLAM 0.25 MG TABLET PO SCH (21:24)
[2019-12-10] MEDS: POTASSIUM CHLORIDE 10 MEQ TABLET.ER PO SCH (21:24)
--- NOTE | 2019-12-10 21:33 | PDOC PROGRESS REPORT ---
Subjective Progress Note for:: 12/10/19 Subjective:: Patient seen at the bedside, she is having difficulty breathing using excessive accessory muscles of breathing, she is requiring, she is requiring noninvasive positive pressure ventilation, she be transferred to [facility] for close monitoring blood pressure still marginally low, she will be started on stress dose hydrocortisone Reason For Visit: PNEUMONIA,ACUTE RESPIRATORY ACIDOSIS Physical Exam Vital Signs: Temp Pulse Resp BP Pulse Ox 99.1 F 106 H 46 H 113/48 L 100 12/10/19 20:00 12/10/19 20:00 12/10/19 20:00 12/10/19 20:00 12/10/19 20:00 Intake & Output 12/09/19 12/10/19 12/11/19 06:59 06:59 06:59 Intake Total 1870 1270 Output Total 2500 350 Balance -630 920 Weight 67.1 kg General appearance: PRESENT: severe distress Eye exam: PRESENT: PERRLA Respiratory exam: PRESENT: accessory muscle use, rales, rhonchi Cardiovascular exam: PRESENT: +S1, +S2 GI/Abdominal exam: PRESENT: soft Neurological exam: PRESENT: alert, CN II-XII grossly intact Results Laboratory Results: 12/10/19 04:18 12/10/19 04:18 12/09/19 12/09/19 12/10/19 20:36 23:05 04:18 WBC 13.4 H RBC 4.02 Hgb 11.9 L Hct 36.8 MCV 92 MCH 29.7 MCHC 32.4 RDW 17.2 H Plt Count 219 Seg Neutrophils % 92.4 H Sodium 140.8 Potassium 2.9 L* Chloride 113 H Carbon Dioxide 20 L Anion Gap 8 BUN 13 Creatinine 0.65 Est GFR ( Amer) > 60 Glucose 127 H Calcium 7.6 L Total Bilirubin 0.2 AST 32 Alkaline Phosphatase 200 H Total Protein 4.9 L Albumin 2.4 L Urine Color YELLOW Urine Appearance CLEAR Urine pH 5.0 Ur Specific [place] 1.012 Urine Protein NEGATIVE Urine Glucose (UA) NEGATIVE Urine Ketones NEGATIVE Urine Blood NEGATIVE Urine Nitrite NEGATIVE Ur Leukocyte Esterase NEGATIVE Urine WBC (Auto) 2 Urine RBC (Auto) 0 12/10/19 04:18 WBC RBC Hgb Hct MCV MCH MCHC RDW Plt Count Seg Neutrophils % Sodium 145.3 H Potassium 4.9 D Chloride 118 H Carbon Dioxide 22 Anion Gap 5 BUN 13 Creatinine 0.73 Est GFR ( Amer) > 60 Glucose 134 H Calcium 8.4 Total Bilirubin 0.2 AST 40 H Alkaline Phosphatase 222 H Total Protein 5.3 L Albumin 2.6 L Urine Color Urine Appearance Urine pH Ur Specific [place] Urine Protein Urine Glucose (UA) Urine Ketones Urine Blood Urine Nitrite Ur Leukocyte Esterase Urine WBC (Auto) Urine RBC (Auto) 12/09/19 12/09/19 12/09/19 14:45 20:36 20:36 Creatine Kinase 20 L CK-MB (CK-2) < 0.22 Troponin I < 0.012 < 0.012 NT-Pro-B Natriuret Pep 167 H Impressions: Chest X-Ray 12/10/19 18:45 IMPRESSION: Borderline heart size. Bilateral pneumonias versus pulmonary e juanita. Assessment & Plan - Diagnosis (1) Bilateral pneumonia Qualifiers: Pneumonia type: due to unspecified organism Lung location: unspecified part of lung Qualified Code(s): J18.9 - Pneumonia, unspecified organism Is this a current diagnosis for this admission?: Yes Plan: Continue IV antibiotic (2) Hypotension Is this a current diagnosis for this admission?: Yes Plan: Continue IV fluid Ringer's lactate (3) Acute hypoxemic respiratory failure Is this a current diagnosis for this admission?: Yes Plan: Start noninvasive positive pressure ventilation BiPAP (4) Adrenal insufficiency Is this a current diagnosis for this admission?: Yes Plan: Start IV hydrocortisone, stress dose, 100 mg IV every 8 - Time Time Spent with patient: 35 or more minutes Level of Care: IMCU
[2019-12-10] MEDS ORDERED: FUROSEMIDE INJ/PF 40 MG/4 ML SDV IV ONE (22:00)
[2019-12-11] MEDS: HYDROCODONE/ACETAMINOPHEN 5-325 MG TABLET PO PRN ×3 (02:16→17:00)
[2019-12-11] MEDS: HEPARIN SOD (PORCINE) 5,000 UNIT/ML 1 ML VIAL SUBCUT SCH ×3 (02:16→17:05)
[2019-12-11] MEDS: RINGERS SOLUTION,LACTATED 1,000 ML IV PRN ×2 (05:17→17:03)
[2019-12-11] MEDS: ALPRAZOLAM 0.25 MG TABLET PO SCH ×3 (05:17→21:36)
[2019-12-11] MEDS: AZTREONAM 1 GM in DEXTROSE 5%-WATER 50 ML IV SCH ×3 (05:17→21:35)
[2019-12-11 05:32] LABS: ALBUMIN 2.2 g/dL (3.5-5.0); ALKALINE PHOSPHATASE 167 U/L (38-126); ASPARTATE AMINO TRANSFERASE 28 U/L (14-36); BILIRUBIN,TOTAL 0.2 mg/dL (0.2-1.3); BLOOD UREA NITROGEN 7 mg/dL (7-20); CHLORIDE 112 mmol/L (98-107); GLUCOSE 92 mg/dL (75-110); POTASSIUM 3.7 mmol/L (3.6-5.0); TOTAL PROTEIN 4.5 g/dL (6.3-8.2)
[2019-12-11 05:38] LABS: CARBON DIOXIDE 29 mmol/L (22-30)
[2019-12-11 05:40] LABS: ANION GAP 0 (5-19)
[2019-12-11 08:01] LABS: ABSOLUTE BASOPHILS # (AUTO) 0.1 10^3/uL (0.0-0.2); ABSOLUTE EOSINOPHILS # (AUTO) 0.1 10^3/uL (0.0-0.6); ABSOLUTE LYMPHOCYTES (AUTO) 1.1 10^3/uL (0.5-4.7); ABSOLUTE MONOCYTES (AUTO) 0.4 10^3/uL (0.1-1.4); ABSOLUTE NEUT (AUTO) 7.9 10^3/uL (1.7-8.2); BASOPHILS % (AUTO) 0.7 % (0-2); EOSINOPHILS % (AUTO) 1.5 % (0-6); HEMATOCRIT 28.4 % (36.0-47.0); LYMPHOCYTES % (AUTO) 11.7 % (13-45); MEAN CORPUSCULAR HGB CONC 33.1 g/dL (32.0-36.0); MEAN CORPUSCULAR VOLUME 91 fl (80-97); PLATELET COUNT 183 10^3/uL (150-450); RED BLOOD COUNT 3.14 10^6/uL (3.72-5.28); RED CELL DISTRIBUTION WIDTH 17.2 % (11.5-14.0); SEGMENTED NEUTROPHILS % (AUTO) 82.1 % (42-78); TOTAL CELLS COUNTED % (AUTO) 100 %; WHITE BLOOD COUNT 9.6 10^3/uL (4.0-10.5)
[2019-12-11 08:06] LABS: HEMOGLOBIN 9.4 g/dL (12.0-15.5)
[2019-12-11] MEDS: AMITRIPTYLINE HCL 50 MG TABLET PO SCH (09:21)
[2019-12-11] MEDS: SERTRALINE HCL 50 MG TABLET PO SCH (09:21)
[2019-12-11] MEDS: BENZTROPINE MESYLATE 1 MG TABLET PO SCH (09:21)
[2019-12-11] MEDS: POTASSIUM CHLORIDE 10 MEQ TABLET.ER PO SCH ×2 (09:21→21:35)
[2019-12-11] MEDS: LURASIDONE HCL 40 MG TABLET PO SCH (09:24)
[2019-12-11] MEDS: LEVOFLOXACIN 750 MG/D5W RTU 750 MG/150 ML RTUPB IV SCH (17:04)
--- NOTE | 2019-12-11 19:03 | RADIOLOGY REPORT (SQ) ---
EXAM DESCRIPTION: CHEST SINGLE VIEW COMPLETED DATE/TIME: 12/11/2019 6:47 pm REASON FOR STUDY: bilateral pneumonia COMPARISON: 12/10/2019 EXAM PARAMETERS: NUMBER OF VIEWS: One view. TECHNIQUE: Single frontal radiographic view of the chest acquired. RADIATION DOSE: NA LIMITATIONS: None. FINDINGS: LUNGS AND PLEURA: Progression of the disease with diffuse opacities throughout both lungs. No effusion. Extensive air bronchograms. MEDIASTINUM AND HILAR STRUCTURES: No masses. Contour normal. HEART AND VASCULAR STRUCTURES: Heart normal in size. Normal vasculature. BONES: No acute findings. HARDWARE: None in the chest. OTHER: No other significant finding. IMPRESSION: Worsening of the generalize pneumonia. TECHNICAL DOCUMENTATION: JOB ID: [id number] [employer]- All Rights Reserved Reading location - IP/workstation name: [email or web address]
[2019-12-11] MEDS: HYDROCORTISONE SOD SUCCINATE INJ/PF 100 MG/2 ML SDV IV SCH (21:35)
[2019-12-11] MEDS ORDERED: FUROSEMIDE INJ/PF 40 MG/4 ML SDV IV ONE (21:42)
[2019-12-11] MEDS ORDERED: RINGERS SOLUTION,LACTATED 1,000 ML IV PRN (21:43)
--- NOTE | 2019-12-11 21:46 | PDOC PROGRESS REPORT ---
Subjective Progress Note for:: 12/11/19 Subjective:: Patient seen by the bedside, the chest x-ray suggests worsening infiltrate, most likely increase volume, will give Lasix 80 mg IV reduce IV Ringer's lactate continue other treatment Reason For Visit: PNEUMONIA,ACUTE RESPIRATORY ACIDOSIS Physical Exam Vital Signs: Temp Pulse Resp BP Pulse Ox 99.3 F 89 35 H 120/65 93 12/11/19 13:02 12/11/19 14:00 12/11/19 13:02 12/11/19 13:02 12/11/19 16:28 Intake & Output 12/10/19 12/11/19 12/12/19 06:59 06:59 06:59 Intake Total 1870 2420 1947 Output Total 2500 2100 1150 Balance -630 320 797 Weight 67.1 kg 67.1 kg General appearance: PRESENT: no acute distress Respiratory exam: PRESENT: rhonchi Cardiovascular exam: PRESENT: +S1, +S2 GI/Abdominal exam: PRESENT: soft Neurological exam: PRESENT: alert Results Laboratory Results: 12/11/19 07:42 12/11/19 04:43 12/11/19 12/11/19 12/11/19 04:43 04:43 07:42 WBC Cancelled 9.6 RBC Cancelled 3.14 L Hgb Cancelled 9.4 L D Hct Cancelled 28.4 L MCV Cancelled 91 MCH Cancelled 30.0 MCHC Cancelled 33.1 RDW Cancelled 17.2 H Plt Count Cancelled 183 Seg Neutrophils % Cancelled 82.1 H Sodium 140.9 Potassium 3.7 Chloride 112 H Carbon Dioxide 29 Anion Gap 0 L BUN 7 Creatinine 0.39 L Est GFR ( Amer) > 60 Glucose 92 Calcium 8.0 L Total Bilirubin 0.2 AST 28 Alkaline Phosphatase 167 H Total Protein 4.5 L Albumin 2.2 L 12/09/19 12/09/19 12/09/19 14:45 20:36 20:36 Creatine Kinase 20 L CK-MB (CK-2) < 0.22 Troponin I < 0.012 < 0.012 NT-Pro-B Natriuret Pep 167 H Impressions: Chest X-Ray 12/11/19 18:45 IMPRESSION: Worsening of the generalize pneumonia. Assessment & Plan - Diagnosis (1) Bilateral pneumonia Qualifiers: Pneumonia type: due to unspecified organism Lung location: unspecified part of lung Qualified Code(s): J18.9 - Pneumonia, unspecified organism Is this a current diagnosis for this admission?: Yes Plan: Continue antibiotic (2) Hypotension Is this a current diagnosis for this admission?: Yes Plan: Reduce infusion rate (3) Acute hypoxemic respiratory failure Is this a current diagnosis for this admission?: Yes Plan: Continue oxygen via BiPAP (4) Adrenal insufficiency Is this a current diagnosis for this admission?: Yes Plan: Continue stress dose hydrocortisone - Time Time Spent with patient: 35 or more minutes Level of Care: IMCU
[2019-12-11] MEDS ORDERED: FUROSEMIDE INJ/PF 100 MG/10 ML SDV IV ONE (22:00)
[2019-12-12] MEDS ORDERED: FUROSEMIDE INJ/PF 100 MG/10 ML SDV IV ONE (00:30)
[2019-12-12] MEDS: HYDROCORTISONE SOD SUCCINATE INJ/PF 100 MG/2 ML SDV IV SCH ×3 (02:41→17:31)
[2019-12-12] MEDS: HEPARIN SOD (PORCINE) 5,000 UNIT/ML 1 ML VIAL SUBCUT SCH ×3 (02:42→17:31)
[2019-12-12 05:08] LABS: ABSOLUTE LYMPHOCYTES (AUTO) 0.7 10^3/uL (0.5-4.7); ABSOLUTE MONOCYTES (AUTO) 0.2 10^3/uL (0.1-1.4); BASOPHILS % (AUTO) 0.2 % (0-2); EOSINOPHILS % (AUTO) 0.1 % (0-6); HEMATOCRIT 29.4 % (36.0-47.0); HEMOGLOBIN 9.8 g/dL (12.0-15.5); LYMPHOCYTES % (AUTO) 8.8 % (13-45); MEAN CORPUSCULAR HEMOGLOBIN 29.9 pg (27.0-33.4); MEAN CORPUSCULAR HGB CONC 33.2 g/dL (32.0-36.0); MEAN CORPUSCULAR VOLUME 90 fl (80-97); MONOCYTES % (AUTO) 2.5 % (3-13); PLATELET COUNT 187 10^3/uL (150-450); RED BLOOD COUNT 3.27 10^6/uL (3.72-5.28); RED CELL DISTRIBUTION WIDTH 16.7 % (11.5-14.0); SEGMENTED NEUTROPHILS % (AUTO) 88.4 % (42-78); TOTAL CELLS COUNTED % (AUTO) 100 %; WHITE BLOOD COUNT 7.9 10^3/uL (4.0-10.5)
[2019-12-12 05:32] LABS: ALBUMIN 2.5 g/dL (3.5-5.0); ALKALINE PHOSPHATASE 183 U/L (38-126); ANION GAP 5 (5-19); ASPARTATE AMINO TRANSFERASE 29 U/L (14-36); BILIRUBIN,DIRECT 0.4 mg/dL (0.0-0.4); BILIRUBIN,TOTAL 0.4 mg/dL (0.2-1.3); BLOOD UREA NITROGEN 7 mg/dL (7-20); CALCIUM 7.7 mg/dL (8.4-10.2); CARBON DIOXIDE 30 mmol/L (22-30); CHLORIDE 106 mmol/L (98-107); GLUCOSE 116 mg/dL (75-110); POTASSIUM 3.7 mmol/L (3.6-5.0); TOTAL PROTEIN 5.2 g/dL (6.3-8.2)
[2019-12-12] MEDS: ALPRAZOLAM 0.25 MG TABLET PO SCH ×3 (06:11→21:15)
[2019-12-12] MEDS: AZTREONAM 1 GM in DEXTROSE 5%-WATER 50 ML IV SCH ×3 (06:12→21:13)
[2019-12-12] MEDS: POTASSIUM CHLORIDE 10 MEQ TABLET.ER PO SCH ×2 (10:11→21:15)
[2019-12-12] MEDS: AMITRIPTYLINE HCL 50 MG TABLET PO SCH (10:11)
[2019-12-12] MEDS: LURASIDONE HCL 40 MG TABLET PO SCH (10:11)
[2019-12-12] MEDS: SERTRALINE HCL 50 MG TABLET PO SCH (10:11)
[2019-12-12] MEDS: BENZTROPINE MESYLATE 1 MG TABLET PO SCH (10:12)
[2019-12-12] MEDS: HYDROCODONE/ACETAMINOPHEN 5-325 MG TABLET PO PRN ×2 (10:14→15:35)
[2019-12-12] MEDS: IPRATROPIUM/ALBUTEROL 0.5-2.5 MG/3 ML AMPUL NEB PRN (10:28)
--- NOTE | 2019-12-12 11:54 | PDOC PROGRESS REPORT ---
Subjective Progress Note for:: 12/12/19 Subjective:: Patient is feeling better Patient's denied any chest pain no short of breath Patient also complaining of left hip pain with a history of the fall 2 weeks back Patient's other than that denied any other complaints Reason For Visit: PNEUMONIA,ACUTE RESPIRATORY ACIDOSIS Physical Exam Vital Signs: Temp Pulse Resp BP Pulse Ox 98.1 F 95 18 99/56 L 95 12/12/19 08:00 12/12/19 10:28 12/12/19 10:28 12/12/19 08:00 12/12/19 10:28 Intake & Output 12/11/19 12/12/19 12/13/19 06:59 06:59 06:59 Intake Total 2420 1947 Output Total 2100 2300 Balance 320 -353 Weight 67.1 kg 65.3 kg General appearance: PRESENT: no acute distress, well-developed, well-nourished Head exam: PRESENT: atraumatic, normocephalic Eye exam: PRESENT: conjunctiva pink, EOMI, PERRLA. ABSENT: scleral icterus Ear exam: PRESENT: normal external ear exam Mouth exam: PRESENT: moist, tongue midline Neck exam: PRESENT: full ROM. ABSENT: carotid bruit, JVD, lymphadenopathy, thyromegaly Respiratory exam: PRESENT: clear to auscultation rona Cardiovascular exam: PRESENT: RRR. ABSENT: diastolic murmur, rubs, systolic murmur Pulses: PRESENT: normal dorsalis pedis pul, +2 pedal pulses bilateral Vascular exam: PRESENT: normal capillary refill GI/Abdominal exam: PRESENT: normal bowel sounds, soft. ABSENT: distended, guarding, mass, organolmegaly, rebound, tenderness Rectal exam: PRESENT: deferred Extremities exam: ABSENT: pedal edema Neurological exam: PRESENT: alert, awake, oriented to person, oriented to place, oriented to time, oriented to situation, CN II-XII grossly intact. ABSENT: motor sensory deficit Psychiatric exam: PRESENT: appropriate affect, normal mood. ABSENT: homicidal ideation, suicidal ideation Skin exam: PRESENT: dry, intact, warm. ABSENT: cyanosis, rash Results Laboratory Results: 12/12/19 04:51 12/12/19 04:51 12/12/19 12/12/19 04:51 04:51 WBC 7.9 RBC 3.27 L Hgb 9.8 L Hct 29.4 L MCV 90 MCH 29.9 MCHC 33.2 RDW 16.7 H Plt Count 187 Seg Neutrophils % 88.4 H Sodium 140.8 Potassium 3.7 Chloride 106 Carbon Dioxide 30 Anion Gap 5 BUN 7 Creatinine 0.32 L Est GFR ( Amer) > 60 Glucose 116 H Calcium 7.7 L Total Bilirubin 0.4 AST 29 Alkaline Phosphatase 183 H Total Protein 5.2 L Albumin 2.5 L 12/09/19 12/09/19 12/09/19 14:45 20:36 20:36 Creatine Kinase 20 L CK-MB (CK-2) < 0.22 Troponin I < 0.012 < 0.012 NT-Pro-B Natriuret Pep 167 H Assessment & Plan - Diagnosis (1) Left hip pain Is this a current diagnosis for this admission?: Yes Plan: At the x-ray of the left hip and then physical therapy evaluations (2) Bilateral pneumonia Qualifiers: Pneumonia type: due to unspecified organism Lung location: unspecified part of lung Qualified Code(s): J18.9 - Pneumonia, unspecified organism Is this a current diagnosis for this admission?: Yes Plan: Continues IV antibiotic (3) Hypotension Is this a current diagnosis for this admission?: Yes Plan: all stable (4) Acute hypoxemic respiratory failure Is this a current diagnosis for this admission?: Yes Plan: Get the ABG (5) Adrenal insufficiency Is this a current diagnosis for this admission?: Yes Plan: Hydrocortisone's (6) Anemia of chronic disease Is this a current diagnosis for this admission?: Yes (7) CHF (congestive heart failure) Qualifiers: Heart failure type: unspecified Heart failure chronicity: unspecified Qualified Code(s): I50.9 - Heart failure, unspecified Is this a current diagnosis for this admission?: Yes - Time Time Spent with patient: 15-24 minutes Level of Care: IMCU Medications reviewed and adjusted accordingly: Yes Anticipated discharge: Other Within: Other - Plan Summary Plan Summary: Continues to IV antibiotic We will repeat the blood work in the morning
--- NOTE | 2019-12-12 12:12 | RADIOLOGY REPORT (SQ) ---
EXAM DESCRIPTION: HIP LEFT AP/LATERAL COMPLETED DATE/TIME: 12/12/2019 11:26 am REASON FOR STUDY: new report of fall two weeks ago COMPARISON: None. NUMBER OF VIEWS: Two views. TECHNIQUE: AP pelvis and additional frog-leg view of the left hip. LIMITATIONS: None. FINDINGS: MINERALIZATION: Normal. LEFT HIP: Intact prosthesis. No fracture or dislocation. No worrisome bone lesions. RIGHT HIP: No fracture or dislocation. No worrisome bone lesions. PUBIS AND ISCHIUM: No fracture. PELVIS: No fracture. SACRUM: No fracture or dislocation. No worrisome bone lesions. LOWER LUMBAR SPINE: No fracture or dislocation. No worrisome bone lesions. No significant disc disea se. SOFT TISSUES: No findings. OTHER: No other significant finding. IMPRESSION: INTACT LEFT HIP PROSTHESIS. NO RADIOGRAPHIC EVIDENCE OF ACUTE INJURY. TECHNICAL DOCUMENTATION: JOB ID: [id number] [employer]- All Rights Reserved Reading location - IP/workstation name: [email or web address]
--- NOTE | 2019-12-12 12:12 | RADIOLOGY REPORT (SQ) ---
EXAM DESCRIPTION: CHEST SINGLE VIEW COMPLETED DATE/TIME: 12/12/2019 11:26 am REASON FOR STUDY: bilateral pneumonia COMPARISON: 12/11/2019. EXAM PARAMETERS: NUMBER OF VIEWS: One view. TECHNIQUE: Single frontal radiographic view of the chest acquired. RADIATION DOSE: NA LIMITATIONS: None. FINDINGS: LUNGS AND PLEURA: Diffuse bilateral airspace disease. Slightly improved aeration MEDIASTINUM AND HILAR STRUCTURES: No masses. Contour normal. HEART AND VASCULAR STRUCTURES: Stable cardiomegaly. BONES: No acute findings. HARDWARE: None in the chest. OTHER: No other significant finding. IMPRESSION: DIFFUSE BILATERAL AIRSPACE DISEASE. SLIGHTLY IMPROVED AERATION. TECHNICAL DOCUMENTATION: JOB ID: [id number] [employer]- All Rights Reserved Reading location - IP/workstation name: [email or web address]
[2019-12-12] MEDS: LEVOFLOXACIN 750 MG/D5W RTU 750 MG/150 ML RTUPB IV SCH (17:31)
[2019-12-13] MEDS: HYDROCORTISONE SOD SUCCINATE INJ/PF 100 MG/2 ML SDV IV SCH ×3 (01:49→18:02)
[2019-12-13] MEDS: HEPARIN SOD (PORCINE) 5,000 UNIT/ML 1 ML VIAL SUBCUT SCH ×3 (01:49→18:01)
[2019-12-13 05:11] LABS: HEMATOCRIT 29.6 % (36.0-47.0); HEMOGLOBIN 9.7 g/dL (12.0-15.5); MEAN CORPUSCULAR HEMOGLOBIN 29.9 pg (27.0-33.4); MEAN CORPUSCULAR HGB CONC 32.8 g/dL (32.0-36.0); MEAN CORPUSCULAR VOLUME 91 fl (80-97); PLATELET COUNT 227 10^3/uL (150-450); RED BLOOD COUNT 3.25 10^6/uL (3.72-5.28); WHITE BLOOD COUNT 8.9 10^3/uL (4.0-10.5)
[2019-12-13 05:37] LABS: BLOOD UREA NITROGEN 10 mg/dL (7-20); CALCIUM 8.4 mg/dL (8.4-10.2); CARBON DIOXIDE 30 mmol/L (22-30); CHLORIDE 106 mmol/L (98-107); GLUCOSE 122 mg/dL (75-110); POTASSIUM 4.1 mmol/L (3.6-5.0)
[2019-12-13 05:39] LABS: ABSOLUTE LYMPHOCYTES# (MANUAL) 0.9 10^3/uL (0.5-4.7); ABSOLUTE MONOCYTES # (MANUAL) 0.6 10^3/uL (0.1-1.4); BAND NEUTROPHILS % (MANUAL) 2 % (3-5); BASOPHILS % (MANUAL) 0 % (0-2); EOSINOPHILS % (MANUAL) 0 % (0-6); LYMPHOCYTES % (MANUAL) 9 % (13-45); MONOCYTES % (MANUAL) 7 % (3-13); SEGMENTED NEUTROPHILS % (MAN) 81 % (42-78); TOTAL CELLS COUNTED 100
[2019-12-13 05:41] LABS: ANISOCYTOSIS SLIGHT; PLATELET COMMENT ADEQUATE; POIKILOCYTOSIS SLIGHT; TEAR DROP CELLS SLIGHT; TOXIC GRANULATION SLIGHT; TOXIC VACUOLATION PRESENT
[2019-12-13 05:44] LABS: ANION GAP 4 (5-19)
[2019-12-13] MEDS: ALPRAZOLAM 0.25 MG TABLET PO SCH ×3 (06:44→21:39)
[2019-12-13] MEDS: AZTREONAM 1 GM in DEXTROSE 5%-WATER 50 ML IV SCH ×3 (06:45→21:39)
[2019-12-13] MEDS: HYDROCODONE/ACETAMINOPHEN 5-325 MG TABLET PO PRN ×3 (06:48→18:06)
[2019-12-13] MEDS ORDERED: FUROSEMIDE INJ/PF 20 MG/2 ML SDV IV ONE (07:15)
[2019-12-13] MEDS: LURASIDONE HCL 40 MG TABLET PO SCH (09:53)
[2019-12-13] MEDS: AMITRIPTYLINE HCL 50 MG TABLET PO SCH (09:53)
[2019-12-13] MEDS: BENZTROPINE MESYLATE 1 MG TABLET PO SCH (09:54)
[2019-12-13] MEDS: POTASSIUM CHLORIDE 10 MEQ TABLET.ER PO SCH ×2 (09:54→21:39)
[2019-12-13] MEDS: SERTRALINE HCL 50 MG TABLET PO SCH (09:54)
--- NOTE | 2019-12-13 10:31 | RADIOLOGY REPORT (SQ) ---
EXAM DESCRIPTION: CHEST SINGLE VIEW COMPLETED DATE/TIME: 12/13/2019 10:05 am REASON FOR STUDY: bilateral pneumonia COMPARISON: 12/12/2019. EXAM PARAMETERS: NUMBER OF VIEWS: One view. TECHNIQUE: Single frontal radiographic view of the chest acquired. RADIATION DOSE: NA LIMITATIONS: None. FINDINGS: LUNGS AND PLEURA: Diffuse airspace disease, unchanged. MEDIASTINUM AND HILAR STRUCTURES: No masses. Contour normal. HEART AND VASCULAR STRUCTURES: Heart upper limits of normal in size. Normal vasculature. BONES: No acute findings. HARDWARE: None in the chest. OTHER: No other significant finding. IMPRESSION: NO CHANGE IN APPEARANCE OF THE CHEST. TECHNICAL DOCUMENTATION: JOB ID: [id number] [employer]- All Rights Reserved Reading location - IP/workstation name: [email or web address]
--- NOTE | 2019-12-13 11:18 | PDOC PROGRESS REPORT ---
Subjective Progress Note for:: 12/13/19 Subjective:: Patient is feeling better Patient's chest x-ray is still same Patient's hip x-ray is negative for any fracture Patient currently on IV antibiotic Denied any chest pain no short of breath Reason For Visit: PNEUMONIA,ACUTE RESPIRATORY ACIDOSIS Physical Exam Vital Signs: Temp Pulse Resp BP Pulse Ox 97.9 F 49 L 23 H 116/47 L 95 12/12/19 18:16 12/13/19 07:00 12/13/19 04:53 12/12/19 18:16 12/13/19 04:55 Intake & Output 12/12/19 12/13/19 12/14/19 06:59 06:59 06:59 Intake Total 1947 712 260 Output Total 2300 750 Balance -353 -38 260 Weight 65.3 kg 70.6 kg General appearance: PRESENT: no acute distress, well-developed, well-nourished Head exam: PRESENT: atraumatic, normocephalic Eye exam: PRESENT: conjunctiva pink, EOMI, PERRLA. ABSENT: scleral icterus Ear exam: PRESENT: normal external ear exam Mouth exam: PRESENT: moist, tongue midline Neck exam: PRESENT: full ROM. ABSENT: carotid bruit, JVD, lymphadenopathy, thyromegaly Respiratory exam: PRESENT: clear to auscultation rona Cardiovascular exam: PRESENT: RRR. ABSENT: diastolic murmur, rubs, systolic murmur Pulses: PRESENT: normal dorsalis pedis pul, +2 pedal pulses bilateral Vascular exam: PRESENT: normal capillary refill GI/Abdominal exam: PRESENT: normal bowel sounds, soft. ABSENT: distended, guarding, mass, organolmegaly, rebound, tenderness Rectal exam: PRESENT: deferred Musculoskeletal exam: PRESENT: ambulatory Neurological exam: PRESENT: alert, awake, oriented to person, oriented to place, oriented to time, oriented to situation, CN II-XII grossly intact. ABSENT: motor sensory deficit Psychiatric exam: PRESENT: appropriate affect, normal mood. ABSENT: homicidal ideation, suicidal ideation Skin exam: PRESENT: dry, intact, warm. ABSENT: cyanosis, rash Results Laboratory Results: 12/13/19 04:50 12/13/19 04:50 12/13/19 12/13/19 04:50 04:50 WBC 8.9 RBC 3.25 L Hgb 9.7 L Hct 29.6 L MCV 91 MCH 29.9 MCHC 32.8 RDW 17.0 H Plt Count 227 Seg Neutrophils % Not Reportable Sodium 140.0 Potassium 4.1 Chloride 106 Carbon Dioxide 30 Anion Gap 4 L BUN 10 Creatinine 0.32 L Est GFR ( Amer) > 60 Glucose 122 H Calcium 8.4 12/09/19 23:05 Clean Catch Midstream Urine Culture - Final Enterococcus Faecalis(Group D) 12/09/19 12/09/19 12/09/19 14:45 20:36 20:36 Creatine Kinase 20 L CK-MB (CK-2) < 0.22 Troponin I < 0.012 < 0.012 NT-Pro-B Natriuret Pep 167 H Impressions: Hip X-Ray 12/12/19 00:00 IMPRESSION: INTACT LEFT HIP PROSTHESIS. NO RADIOGRAPHIC EVIDENCE OF ACUTE INJURY. Chest X-Ray 12/13/19 00:00 IMPRESSION: NO CHANGE IN APPEARANCE OF THE CHEST. Assessment & Plan - Diagnosis (1) Left hip pain Is this a current diagnosis for this admission?: Yes Plan: X-ray of the hip is negative continues to physical therapy (2) Bilateral pneumonia Qualifiers: Pneumonia type: due to unspecified organism Lung location: unspecified part of lung Qualified Code(s): J18.9 - Pneumonia, unspecified organism Is this a current diagnosis for this admission?: Yes Plan: Continues IV antibiotic (3) Hypotension Is this a current diagnosis for this admission?: Yes Plan: all stable (4) Acute hypoxemic respiratory failure Is this a current diagnosis for this admission?: Yes Plan: Get the ABG (5) Adrenal insufficiency Is this a current diagnosis for this admission?: Yes Plan: Hydrocortisone's (6) Anemia of chronic disease Is this a current diagnosis for this admission?: Yes (7) CHF (congestive heart failure) Qualifiers: Heart failure type: unspecified Heart failure chronicity: unspecified Qualified Code(s): I50.9 - Heart failure, unspecified Is this a current diagnosis for this admission?: Yes (8) Urinary tract infection Qualifiers: Urinary tract infection type: site unspecified Is this a current diagnosis for this admission?: Yes Plan: Multiple drug allergies may be consider Macrobid once a day - Time Time Spent with patient: 15-24 minutes Level of Care: IMCU Medications reviewed and adjusted accordingly: Yes Anticipated discharge: Other Within: Other - Plan Summary Plan Summary: Continues to current medications
[2019-12-13] MEDS ORDERED: ONDANSETRON HCL INJ/PF 4 MG/2 ML SDV ONE (13:07)
[2019-12-13] MEDS ORDERED: ONDANSETRON HCL INJ/PF 4 MG/2 ML SDV IV ONE (13:30)
[2019-12-13] MEDS: LEVOFLOXACIN 750 MG/D5W RTU 750 MG/150 ML RTUPB IV SCH (17:58)
[2019-12-13] MEDS: ACETAMINOPHEN 325 MG TABLET PO PRN (23:47)
[2019-12-14] MEDS: HEPARIN SOD (PORCINE) 5,000 UNIT/ML 1 ML VIAL SUBCUT SCH ×3 (01:31→17:08)
[2019-12-14] MEDS: HYDROCORTISONE SOD SUCCINATE INJ/PF 100 MG/2 ML SDV IV SCH ×3 (01:37→17:09)
[2019-12-14] MEDS: ALPRAZOLAM 0.25 MG TABLET PO SCH ×3 (05:08→21:39)
[2019-12-14] MEDS: AZTREONAM 1 GM in DEXTROSE 5%-WATER 50 ML IV SCH ×3 (05:08→21:39)
[2019-12-14 07:09] LABS: HEMATOCRIT 30.6 % (36.0-47.0); HEMOGLOBIN 10.1 g/dL (12.0-15.5); MEAN CORPUSCULAR HEMOGLOBIN 29.9 pg (27.0-33.4); MEAN CORPUSCULAR VOLUME 91 fl (80-97); PLATELET COUNT 272 10^3/uL (150-450); RED BLOOD COUNT 3.38 10^6/uL (3.72-5.28); RED CELL DISTRIBUTION WIDTH 16.9 % (11.5-14.0); WHITE BLOOD COUNT 8.4 10^3/uL (4.0-10.5)
[2019-12-14 07:38] LABS: ANION GAP 5 (5-19); BLOOD UREA NITROGEN 15 mg/dL (7-20); CALCIUM 8.6 mg/dL (8.4-10.2); CARBON DIOXIDE 27 mmol/L (22-30); CHLORIDE 106 mmol/L (98-107); GLUCOSE 105 mg/dL (75-110); POTASSIUM 4.8 mmol/L (3.6-5.0)
[2019-12-14 08:31] LABS: ABSOLUTE LYMPHOCYTES# (MANUAL) 0.9 10^3/uL (0.5-4.7); ABSOLUTE MONOCYTES # (MANUAL) 0.4 10^3/uL (0.1-1.4); BASOPHILS % (MANUAL) 0 % (0-2); EOSINOPHILS % (MANUAL) 0 % (0-6); LYMPHOCYTES % (MANUAL) 11 % (13-45); MONOCYTES % (MANUAL) 5 % (3-13); SEGMENTED NEUTROPHILS % (MAN) 84 % (42-78); TOTAL CELLS COUNTED 100
[2019-12-14 08:32] LABS: ANISOCYTOSIS 1+; PLATELET COMMENT ADEQUATE; PLATELET GIANT PRESENT; POLYCHROMASIA SLIGHT
[2019-12-14] MEDS: BENZTROPINE MESYLATE 1 MG TABLET PO SCH (09:47)
[2019-12-14] MEDS: POTASSIUM CHLORIDE 10 MEQ TABLET.ER PO SCH ×2 (09:47→21:39)
[2019-12-14] MEDS: LURASIDONE HCL 40 MG TABLET PO SCH (09:47)
[2019-12-14] MEDS: SERTRALINE HCL 50 MG TABLET PO SCH (09:47)
[2019-12-14] MEDS: AMITRIPTYLINE HCL 50 MG TABLET PO SCH (09:47)
[2019-12-14] MEDS: HYDROCODONE/ACETAMINOPHEN 5-325 MG TABLET PO PRN ×2 (09:54→21:47)
[2019-12-14] MEDS: LEVOFLOXACIN 750 MG/D5W RTU 750 MG/150 ML RTUPB IV SCH (17:08)
--- NOTE | 2019-12-14 19:10 | RADIOLOGY REPORT (SQ) ---
EXAM DESCRIPTION: CHEST SINGLE VIEW COMPLETED DATE/TIME: 12/14/2019 6:54 pm REASON FOR STUDY: bilateral pneumonia COMPARISON: Chest films 12/09/2019, 12/11/2019, 12/12/2019, 12/13/2019 EXAM PARAMETERS: NUMBER OF VIEWS: One view. TECHNIQUE: Single frontal radiographic view of the chest acquired. RADIATION DOSE: NA LIMITATIONS: None. FINDINGS: LUNGS AND PLEURA: Partial clearing of bilateral airspace disease compared to 12/11/2019. P ersistent right mid and lower lung airspace disease is present. No pleural effusion. No pneumothorax. MEDIASTINUM AND HILAR STRUCTURES: No masses. Contour normal. HEART AND VASCULAR STRUCTURES: No cardiomegaly BONES: No acute findings. HARDWARE: None in the chest. OTHER: No other significant finding. IMPRESSION: Partial clearing of the diffuse bilateral airspace disease compared to previous study. Mild persistent airspace disease in the right mid and lower lung TECHNICAL DOCUMENTATION: JOB ID: [id number] [employer]- All Rights Reserved Reading location - IP/workstation name: [email or web address]
--- NOTE | 2019-12-14 22:44 | PDOC PROGRESS REPORT ---
Subjective Progress Note for:: 12/14/19 Subjective:: Patient seen by the bedside, she is showing some improvement Reason For Visit: PNEUMONIA,ACUTE RESPIRATORY ACIDOSIS Physical Exam Vital Signs: Temp Pulse Resp BP Pulse Ox 98.3 F 47 L 20 146/62 H 100 12/14/19 20:33 12/14/19 20:33 12/14/19 20:33 12/14/19 20:33 12/14/19 20:33 Intake & Output 12/13/19 12/14/19 12/15/19 06:59 06:59 06:59 Intake Total 862 1030 395 Output Total 750 Balance 112 1030 395 Weight 70.6 kg General appearance: PRESENT: no acute distress Head exam: PRESENT: atraumatic, normocephalic Eye exam: PRESENT: PERRLA. ABSENT: scleral icterus Ear exam: PRESENT: normal external ear exam Mouth exam: PRESENT: moist, tongue midline Neck exam: PRESENT: full ROM. ABSENT: carotid bruit, JVD, lymphadenopathy, thyromegaly Respiratory exam: PRESENT: clear to auscultation rona Cardiovascular exam: PRESENT: RRR, +S1, +S2 Pulses: PRESENT: normal dorsalis pedis pul, +2 pedal pulses bilateral Vascular exam: PRESENT: normal capillary refill GI/Abdominal exam: PRESENT: normal bowel sounds, soft Rectal exam: PRESENT: deferred Neurological exam: PRESENT: alert, awake, oriented to person, oriented to place, oriented to time, oriented to situation, CN II-XII grossly intact. ABSENT: motor sensory deficit Psychiatric exam: PRESENT: appropriate affect, normal mood. ABSENT: homicidal ideation, suicidal ideation Skin exam: PRESENT: dry, intact, warm. ABSENT: cyanosis, rash Results Laboratory Results: 12/14/19 06:44 12/14/19 06:44 12/14/19 12/14/19 06:44 06:44 WBC 8.4 RBC 3.38 L Hgb 10.1 L Hct 30.6 L MCV 91 MCH 29.9 MCHC 33.0 RDW 16.9 H Plt Count 272 Seg Neutrophils % Not Reportable Sodium 138.0 Potassium 4.8 Chloride 106 Carbon Dioxide 27 Anion Gap 5 BUN 15 Creatinine 0.42 L Est GFR ( Amer) > 60 Glucose 105 Calcium 8.6 12/09/19 14:50 Blood Blood Culture - Final NO GROWTH IN 5 DAYS 12/09/19 14:45 Blood Blood Culture - Final NO GROWTH IN 5 DAYS 12/09/19 12/09/19 12/09/19 14:45 20:36 20:36 Creatine Kinase 20 L CK-MB (CK-2) < 0.22 Troponin I < 0.012 < 0.012 NT-Pro-B Natriuret Pep 167 H Impressions: Hip X-Ray 12/12/19 00:00 IMPRESSION: INTACT LEFT HIP PROSTHESIS. NO RADIOGRAPHIC EVIDENCE OF ACUTE INJURY. Chest X-Ray 12/14/19 18:45 IMPRESSION: Partial clearing of the diffuse bilateral airspace disease compared to previous study. Mild persistent airspace disease in the right mid and lower lung Assessment & Plan - Diagnosis (1) Bilateral pneumonia Qualifiers: Pneumonia type: due to unspecified organism Lung location: unspecified part of lung Qualified Code(s): J18.9 - Pneumonia, unspecified organism Is this a current diagnosis for this admission?: Yes (2) Hypotension Is this a current diagnosis for this admission?: Yes (3) Acute hypoxemic respiratory failure Is this a current diagnosis for this admission?: Yes Plan: Continue oxygen therapy (4) Adrenal insufficiency Is this a current diagnosis for this admission?: Yes Plan: Lower IV hydrocortisone to 50 mg IV every 8 - Time Time Spent with patient: 25-34 minutes
[2019-12-15] MEDS: HEPARIN SOD (PORCINE) 5,000 UNIT/ML 1 ML VIAL SUBCUT SCH ×3 (01:37→17:31)
[2019-12-15] MEDS: HYDROCORTISONE SOD SUCCINATE INJ/PF 100 MG/2 ML SDV IV SCH ×3 (01:37→17:31)
[2019-12-15] MEDS: AZTREONAM 1 GM in DEXTROSE 5%-WATER 50 ML IV SCH ×3 (05:08→21:30)
[2019-12-15] MEDS: ALPRAZOLAM 0.25 MG TABLET PO SCH ×3 (05:09→21:30)
[2019-12-15 07:16] LABS: BLOOD UREA NITROGEN 13 mg/dL (7-20); CALCIUM 8.2 mg/dL (8.4-10.2); CARBON DIOXIDE 29 mmol/L (22-30); CHLORIDE 106 mmol/L (98-107); GLUCOSE 92 mg/dL (75-110); POTASSIUM 4.9 mmol/L (3.6-5.0)
[2019-12-15 07:23] LABS: ANION GAP 4 (5-19)
[2019-12-15] MEDS: BENZTROPINE MESYLATE 1 MG TABLET PO SCH (09:25)
[2019-12-15] MEDS: SERTRALINE HCL 50 MG TABLET PO SCH (09:25)
[2019-12-15] MEDS: LURASIDONE HCL 40 MG TABLET PO SCH (09:26)
[2019-12-15] MEDS: AMITRIPTYLINE HCL 50 MG TABLET PO SCH (09:26)
[2019-12-15] MEDS: POTASSIUM CHLORIDE 10 MEQ TABLET.ER PO SCH ×2 (09:26→21:30)
[2019-12-15] MEDS: HYDROCODONE/ACETAMINOPHEN 5-325 MG TABLET PO PRN (13:00)
[2019-12-15] MEDS: LEVOFLOXACIN 750 MG/D5W RTU 750 MG/150 ML RTUPB IV SCH (17:31)
--- NOTE | 2019-12-15 20:01 | RADIOLOGY REPORT (SQ) ---
EXAM DESCRIPTION: CHEST SINGLE VIEW COMPLETED DATE/TIME: 12/15/2019 7:26 pm REASON FOR STUDY: bilateral pneumonia COMPARISON: 12/14/2019, 12/13/2019, 12/12/2019 EXAM PARAMETERS: NUMBER OF VIEWS: One view. TECHNIQUE: Single frontal radiographic view of the chest acquired. RADIATION DOSE: NA LIMITATIONS: None. FINDINGS: LUNGS AND PLEURA: No opacities, masses or pneumothorax. No pleural effusion. MEDIASTINUM AND HILAR STRUCTURES: No masses. Contour normal. HEART AND VASCULAR STRUCTURES: Stable cardiomegaly BONES: No acute findings. HARDWARE: None in the chest. OTHER: No other significant finding. IMPRESSION: Cardiomegaly. No acute findings TECHNICAL DOCUMENTATION: JOB ID: [id number] [employer]- All Rights Reserved Reading location - IP/workstation name: [email or web address]
--- NOTE | 2019-12-15 22:34 | PDOC PROGRESS REPORT ---
Subjective Progress Note for:: 12/15/19 Subjective:: Patient seen at the bedside she continues to make improvement, chest x-ray from today was clear of infiltrate Reason For Visit: PNEUMONIA,ACUTE RESPIRATORY ACIDOSIS Physical Exam Vital Signs: Temp Pulse Resp BP Pulse Ox 98.1 F 50 L 19 132/57 H 99 12/15/19 19:56 12/15/19 19:56 12/15/19 19:56 12/15/19 19:56 12/15/19 19:56 Intake & Output 12/14/19 12/15/19 12/16/19 06:59 06:59 06:59 Intake Total 3545 301 4557 Output Total 300 300 Balance 1030 295 920 Weight 66.2 kg 66.2 kg General appearance: PRESENT: no acute distress Respiratory exam: PRESENT: clear to auscultation rona Cardiovascular exam: PRESENT: +S1, +S2 GI/Abdominal exam: PRESENT: soft Neurological exam: PRESENT: alert, CN II-XII grossly intact Results Laboratory Results: 12/14/19 06:44 12/15/19 06:30 12/15/19 06:30 Sodium 139.2 Potassium 4.9 Chloride 106 Carbon Dioxide 29 Anion Gap 4 L BUN 13 Creatinine 0.43 L Est GFR ( Amer) > 60 Glucose 92 Calcium 8.2 L 12/09/19 12/09/19 12/09/19 14:45 20:36 20:36 Creatine Kinase 20 L CK-MB (CK-2) < 0.22 Troponin I < 0.012 < 0.012 NT-Pro-B Natriuret Pep 167 H Impressions: Hip X-Ray 12/12/19 00:00 IMPRESSION: INTACT LEFT HIP PROSTHESIS. NO RADIOGRAPHIC EVIDENCE OF ACUTE INJURY. Chest X-Ray 12/15/19 18:45 IMPRESSION: Cardiomegaly. No acute findings Assessment & Plan - Diagnosis (1) Bilateral pneumonia Qualifiers: Pneumonia type: due to unspecified organism Lung location: unspecified part of lung Qualified Code(s): J18.9 - Pneumonia, unspecified organism Is this a current diagnosis for this admission?: Yes (2) Hypotension Is this a current diagnosis for this admission?: Yes (3) Acute hypoxemic respiratory failure Is this a current diagnosis for this admission?: Yes (4) Adrenal insufficiency Is this a current diagnosis for this admission?: Yes Plan: Discontinue IV Solu-Medrol start hydrocortisone 20 mg p.o. a.m., 10 mg p.o. nightly - Time Time Spent with patient: 25-34 minutes Level of Care: IMCU
[2019-12-15] MEDS: HYDROCORTISONE 10 MG TABLET PO SCH (22:52)
[2019-12-16] MEDS: HEPARIN SOD (PORCINE) 5,000 UNIT/ML 1 ML VIAL SUBCUT SCH ×3 (02:49→17:43)
[2019-12-16] MEDS: HYDROCODONE/ACETAMINOPHEN 5-325 MG TABLET PO PRN ×3 (04:27→17:44)
[2019-12-16] MEDS: AZTREONAM 1 GM in DEXTROSE 5%-WATER 50 ML IV SCH ×2 (05:14→13:20)
[2019-12-16] MEDS: ALPRAZOLAM 0.25 MG TABLET PO SCH ×3 (05:15→21:38)
[2019-12-16] MEDS: HYDROCORTISONE 10 MG TABLET PO SCH ×2 (07:55→21:38)
[2019-12-16] MEDS: AMITRIPTYLINE HCL 50 MG TABLET PO SCH (10:02)
[2019-12-16] MEDS: SERTRALINE HCL 50 MG TABLET PO SCH (10:02)
[2019-12-16] MEDS: POTASSIUM CHLORIDE 10 MEQ TABLET.ER PO SCH ×2 (10:03→21:38)
[2019-12-16] MEDS: BENZTROPINE MESYLATE 1 MG TABLET PO SCH (10:03)
[2019-12-16] MEDS: LURASIDONE HCL 40 MG TABLET PO SCH (10:03)
[2019-12-16] MEDS: LEVOFLOXACIN 750 MG/D5W RTU 750 MG/150 ML RTUPB IV SCH (17:42)
--- NOTE | 2019-12-16 18:42 | PDOC TRANSFER SUMMARY ---
Impression - Admit/DC Date/PCP Admission Date/Primary Care Provider: 12/09/19 16:13 JOHN CANNON MD Discharge Date: 12/17/19 - Discharge Diagnosis (1) Bilateral pneumonia Is this a current diagnosis for this admission?: Yes (2) Hypotension Is this a current diagnosis for this admission?: Yes (3) Acute hypoxemic respiratory failure Is this a current diagnosis for this admission?: Yes (4) Adrenal insufficiency Is this a current diagnosis for this admission?: Yes - Additional Information Referrals: JOHN CANNON MD [Primary Care Provider] - Follow up as needed Home Medications: Alprazolam [Xanax 0.25 mg Tablet] 0.25 mg PO TID 12/09/19 Amitriptyline HCl [Elavil 50 mg Tablet] 50 mg PO DAILY 12/09/19 Benztropine Mesylate [Cogentin 1 mg Tablet] 1 tab PO DAILY 12/09/19 Esomeprazole Magnesium [Nexium 24Hr] 40 mg PO DAILY 12/09/19 Fluticasone/Umeclidin/Vilanter [Trelegy 100-62.5-25 Mcg Ellipta 14 Dose/Dpi] 1 each IH DAILY 12/09/19 Gabapentin [Neurontin 300 mg Capsule] 300 mg PO Q8 12/09/19 Hydrocodone/Acetaminophen [Keystone 5-325 Tablet] 1 each PO Q4HP PRN 12/09/19 Lurasidone HCl [Latuda 40 mg Tablet] 40 mg PO DAILY 12/09/19 Naloxegol Oxalate [Movantik 25 mg Tablet] 25 mg PO QAM 12/09/19 Ondansetron HCl [Zofran 8 mg Tablet] 16 mg PO Q12 12/09/19 Sertraline HCl 100 mg PO DAILY 12/09/19 Hydrocortisone [Cortef 10 mg Tablet] 10 mg PO QHS #0 tablet 12/16/19 Hydrocortisone [Cortef 10 mg Tablet] 20 mg PO QAM tablet 12/16/19 Ipratropium/Albuterol Sulfate [Duoneb 3 ml Ampul] 3 ml NEB RTQ6HP PRN vial.neb 12/16/19 Phentermine HCl 15 mg PO DAILY #30 12/16/19 Varenicline Tartrate [Chantix 1 mg Tablet] 1 mg PO Q12 #60 12/16/19 History of Present Illiness History of Present Illness: HILTON MI is a 49 year old female, She came to the emergency room for evaluation of shortness of breath, she has history of COPD, she continues to abuse tobacco, smoked half a pack a day of cigarette. In the emergency room she was evaluated the oxygen saturation was 84% on ambient air according to the medical record from paramedics when she was transported to the emergency room.A chest x-ray was done in the emergency room, it demonstrated bilateral pneumonia she was also found to have low blood pressure, she has a history of adrenal insufficiency with tendency to have low blood pressure whenever she is under stress like infection Hospital Course Hospital Course: Patient was admitted for the management of bilateral pneumonia, she has a history of adrenal insufficiency on admission the blood pressure was low she was treated with stress dose intravenous hydrocortisone 100 mg IV every 8 hours, this regimen stabilizes the blood pressure with normalization of hemodynamics. She was empirically treated with IV antibiotic to cover potential pathogens, she has allergy to penicillin she was treated with intravenous aztreonam and also intravenous Levaquin patient did respond to this regimen, on admission there was bilateral diffuse infiltrate on both lung field with treatment that was complete resolution of the infiltrate in both lung field. She has chronic leg ulcer this will be followed outpatient by wound clinic Physical Exam Vital Signs: Temp Pulse Resp BP Pulse Ox 98.2 F 79 17 95/54 L 95 12/16/19 15:19 12/16/19 15:19 12/16/19 15:19 12/16/19 15:19 12/16/19 15:19 Intake & Output 12/15/19 12/16/19 12/17/19 06:59 06:59 06:59 Intake Total 595 1470 480 Output Total 300 600 Balance 295 870 480 Weight 66.2 kg 66.2 kg General appearance: PRESENT: no acute distress Eye exam: PRESENT: PERRLA Respiratory exam: PRESENT: clear to auscultation rona Cardiovascular exam: PRESENT: +S1, +S2 GI/Abdominal exam: PRESENT: soft Neurological exam: PRESENT: alert, CN II-XII grossly intact Results Laboratory Results: WBC 8.4 10^3/uL (4.0-10.5) 12/14/19 06:44 RBC 3.38 10^6/uL (3.72-5.28) L 12/14/19 06:44 Hgb 10.1 g/dL (12.0-15.5) L 12/14/19 06:44 Hct 30.6 % (36.0-47.0) L 12/14/19 06:44 MCV 91 fl (80-97) 12/14/19 06:44 MCH 29.9 pg (27.0-33.4) 12/14/19 06:44 MCHC 33.0 g/dL (32.0-36.0) 12/14/19 06:44 RDW 16.9 % (11.5-14.0) H 12/14/19 06:44 Plt Count 272 10^3/uL (150-450) 12/14/19 06:44 Lymph % (Auto) Not Reportable 12/14/19 06:44 Cochran % (Auto) Not Reportable 12/14/19 06:44 Eos % (Auto) Not Reportable 12/14/19 06:44 Baso % (Auto) Not Reportable 12/14/19 06:44 Absolute Neuts (auto) Not Reportable 12/14/19 06:44 Absolute Lymphs (auto) Not Reportable 12/14/19 06:44 Absolute Monos (auto) Not Reportable 12/14/19 06:44 Absolute Eos (auto) Not Reportable 12/14/19 06:44 Absolute Basos (auto) Not Reportable 12/14/19 06:44 Total Counted 100 12/14/19 06:44 Seg Neutrophils % Not Reportable 12/14/19 06:44 Seg Neuts % (Manual) 84 % (42-78) H 12/14/19 06:44 Band Neutrophils % 2 % (3-5) L 12/13/19 04:50 Lymphocytes % (Manual) 11 % (13-45) L 12/14/19 06:44 Atypical Lymphs % 1 % (0) 12/13/19 04:50 Monocytes % (Manual) 5 % (3-13) 12/14/19 06:44 Eosinophils % (Manual) 0 % (0-6) 12/14/19 06:44 Basophils % (Manual) 0 % (0-2) 12/14/19 06:44 Abs Neuts (Manual) 7.1 10^3/uL (1.7-8.2) 12/14/19 06:44 Abs Lymphs (Manual) 0.9 10^3/uL (0.5-4.7) 12/14/19 06:44 Abs Monocytes (Manual) 0.4 10^3/uL (0.1-1.4) 12/14/19 06:44 Absolute Eos (Manual) 0.0 10^3/uL (0.0-0.6) 12/14/19 06:44 Abs Basophils (Manual) 0.0 10^3/uL (0.0-0.2) 12/14/19 06:44 Toxic Granulation SLIGHT 12/13/19 04:50 Toxic Vacuolation PRESENT 12/13/19 04:50 Platelet Estimate Cancelled 12/11/19 04:43 Giant Platelets PRESENT 12/14/19 06:44 Platelet Comment ADEQUATE 12/14/19 06:44 Polychromasia SLIGHT 12/14/19 06:44 Poikilocytosis SLIGHT 12/13/19 04:50 Anisocytosis 1+ 12/14/19 06:44 Tear Drop Cells SLIGHT 12/13/19 04:50 Carbonic Acid 1.26 mmol/L (1.05-1.35) 12/09/19 17:47 HCO3/H2CO3 Ratio 18:1 12/09/19 17:47 ABG pH 7.37 (7.35-7.45) 12/09/19 17:47 ABG pCO2 41.7 mmHg (35-45) 12/09/19 17:47 ABG pO2 61.0 mmHg (80-100) L 12/09/19 17:47 ABG HCO3 23.3 mmol/L (20-24) 12/09/19 17:47 ABG Total CO2 24.6 mmol/L (21-25) 12/09/19 17:47 ABG O2 Saturation 90.6 % (94-98) L 12/09/19 17:47 ABG Base Excess -2.0 mmol/L 12/09/19 17:47 VBG pH 7.29 (7.30-7.42) L 12/09/19 14:45 VBG pCO2 51.7 mmHg (35-63) 12/09/19 14:45 VBG HCO3 24.4 mmol/L (20-32) 12/09/19 14:45 VBG Base Excess -2.5 mmol/L 12/09/19 14:45 FiO2 4L 12/09/19 17:47 Sodium 139.2 mmol/L (137-145) 12/15/19 06:30 Potassium 4.9 mmol/L (3.6-5.0) 12/15/19 06:30 Chloride 106 mmol/L (98-107) 12/15/19 06:30 Carbon Dioxide 29 mmol/L (22-30) 12/15/19 06:30 Anion Gap 4 (5-19) L 12/15/19 06:30 BUN 13 mg/dL (7-20) 12/15/19 06:30 Creatinine 0.43 mg/dL (0.52-1.25) L 12/15/19 06:30 Est GFR ( Amer) > 60 (>60) 12/15/19 06:30 Est GFR (MDRD) Non-Af > 60 (>60) 12/15/19 06:30 Glucose 92 mg/dL (75-110) 12/15/19 06:30 Hemoglobin A1c % 4.6 % (4.7-6.0) L 12/09/19 14:45 Lactic Acid 1.6 mmol/L (0.7-2.1) 12/09/19 20:36 Calcium 8.2 mg/dL (8.4-10.2) L 12/15/19 06:30 Total Bilirubin 0.4 mg/dL (0.2-1.3) 12/12/19 04:51 Direct Bilirubin 0.4 mg/dL (0.0-0.4) 12/12/19 04:51 Neonat Total Bilirubin Not Reportable 12/12/19 04:51 Neonat Direct Bilirubin Not Reportable 12/12/19 04:51 Neonat Indirect Bili Not Reportable 12/12/19 04:51 AST 29 U/L (14-36) 12/12/19 04:51 ALT 8 U/L (<35) 12/12/19 04:51 Alkaline Phosphatase 183 U/L (38-126) H 12/12/19 04:51 Creatine Kinase 20 U/L (30-135) L 12/09/19 20:36 CK-MB (CK-2) < 0.22 ng/mL (<4.55) 12/09/19 20:36 Troponin I < 0.012 ng/mL 12/09/19 20:36 NT-Pro-B Natriuret Pep 167 pg/mL (<125) H 12/09/19 14:45 Total Protein 5.2 g/dL (6.3-8.2) L 12/12/19 04:51 Albumin 2.5 g/dL (3.5-5.0) L 12/12/19 04:51 Urine Color YELLOW 12/09/19 23:05 Urine Appearance CLEAR 12/09/19 23:05 Urine pH 5.0 (5.0-9.0) 12/09/19 23:05 Ur Specific English 1.012 12/09/19 23:05 Urine Protein NEGATIVE mg/dL (NEGATIVE) 12/09/19 23:05 Urine Glucose (UA) NEGATIVE mg/dL (NEGATIVE) 12/09/19 23:05 Urine Ketones NEGATIVE mg/dL (NEGATIVE) 12/09/19 23:05 Urine Blood NEGATIVE (NEGATIVE) 12/09/19 23:05 Urine Nitrite NEGATIVE (NEGATIVE) 12/09/19 23:05 Urine Bilirubin NEGATIVE (NEGATIVE) 12/09/19 23:05 Urine Urobilinogen NEGATIVE mg/dL (<2.0) 12/09/19 23:05 Ur Leukocyte Esterase NEGATIVE (NEGATIVE) 12/09/19 23:05 Urine WBC (Auto) 2 /HPF 12/09/19 23:05 Urine RBC (Auto) 0 /HPF 12/09/19 23:05 U Hyaline Cast (Auto) 1 /LPF 12/09/19 23:05 Squamous Epi Cells Auto 1 /HPF 12/09/19 23:05 Urine Mucus (Auto) RARE /LPF 12/09/19 23:05 Urine Ascorbic Acid NEGATIVE (NEGATIVE) 12/09/19 23:05 Slides for Path Review Cancelled 12/11/19 04:43 12/09/19 12/09/19 14:45 20:36 CK-MB (CK-2) < 0.22 Troponin I < 0.012 < 0.012 NT-Pro-B Natriuret Pep 167 H Impressions: Chest X-Ray 12/09/19 14:08 IMPRESSION: Patchy bilateral airspace disease greatest within the left mid and lower lung suggestive of multifocal pneumonia. Chest X-Ray 12/10/19 18:45 IMPRESSION: Borderline heart size. Bilateral pneumonias versus pulmonary edema. Chest X-Ray 12/11/19 18:45 IMPRESSION: Worsening of the generalize pneumonia. Hip X-Ray 12/12/19 00:00 IMPRESSION: INTACT LEFT HIP PROSTHESIS. NO RADIOGRAPHIC EVIDENCE OF ACUTE INJURY. Chest X-Ray 12/12/19 11:10 IMPRESSION: DIFFUSE BILATERAL AIRSPACE DISEASE. SLIGHTLY IMPROVED AERATION. Chest X-Ray 12/13/19 00:00 IMPRESSION: NO CHANGE IN APPEARANCE OF THE CHEST. Chest X-Ray 12/14/19 18:45 IMPRESSION: Partial clearing of the diffuse bilateral airspace disease compared to previous study. Mild persistent airspace disease in the right mid and lower lung Chest X-Ray 12/15/19 18:45 IMPRESSION: Cardiomegaly. No acute findings Stroke Is this a Stroke Patient?: No Acute Heart Failure - Is this a Heart Failure Patient?: No
--- NOTE | 2019-12-16 19:04 | RADIOLOGY REPORT (SQ) ---
EXAM DESCRIPTION: CHEST SINGLE VIEW COMPLETED DATE/TIME: 12/16/2019 6:54 pm REASON FOR STUDY: bilateral pneumonia COMPARISON: 12/15/2019. EXAM PARAMETERS: NUMBER OF VIEWS: One view. TECHNIQUE: Single frontal radiographic view of the chest acquired. RADIATION DOSE: NA LIMITATIONS: None. FINDINGS: LUNGS AND PLEURA: Faint density in the right lung base. Left lung clear. MEDIASTINUM AND HILAR STRUCTURES: No masses. Contour normal. HEART AND VASCULAR STRUCTURES: Cardiomegaly unchanged. BONES: No acute findings. HARDWARE: None in the chest. OTHER: No other significant finding. IMPRESSION: CARDIOMEGALY UNCHANGED. FAINT ATELECTASIS OR POSSIBLE EARLY INFILTRATE IN THE RIGHT LUIS MANUEL G BASE. TECHNICAL DOCUMENTATION: JOB ID: [id number] [employer]- All Rights Reserved Reading location - IP/workstation name: [email or web address]
[2019-12-17] MEDS: HEPARIN SOD (PORCINE) 5,000 UNIT/ML 1 ML VIAL SUBCUT SCH ×2 (02:20→09:36)
[2019-12-17] MEDS: ALPRAZOLAM 0.25 MG TABLET PO SCH (05:04)
[2019-12-17] MEDS: HYDROCODONE/ACETAMINOPHEN 5-325 MG TABLET PO PRN ×2 (05:06→09:35)
[2019-12-17] MEDS: HYDROCORTISONE 10 MG TABLET PO SCH (08:14)
[2019-12-17] MEDS: SERTRALINE HCL 50 MG TABLET PO SCH (09:35)
[2019-12-17] MEDS: BENZTROPINE MESYLATE 1 MG TABLET PO SCH (09:35)
[2019-12-17] MEDS: POTASSIUM CHLORIDE 10 MEQ TABLET.ER PO SCH (09:35)
[2019-12-17] MEDS: AMITRIPTYLINE HCL 50 MG TABLET PO SCH (09:36)
[2019-12-17] MEDS: LURASIDONE HCL 40 MG TABLET PO SCH (09:36)
[2019-12-17 10:50] VITALS: BP 99/56
--- NOTE | 2019-12-17 15:35 | XCELERA REPORT ---
[address] [facility] [address] Lower Extremity Venous Evaluation Procedure: Color flow and duplex imaging bilaterally of the veins of the lower extremities as well as the Common Femoral veins. Right Sided Venous Evaluation Normal vessel filling wall to wall, compression and augmentation as well as Colour flow down to the infrageniculate veins. Left Sided Venous Evaluation Normal vessel filling wall to wall, compression and augmentation as well as Colour flow down to the infrageniculate veins. Interpretation Summary No duplex evidence of DVT or obstruction in the bilateral lower extremities. Name: HILTON MI Age: 49 yrs Gender: Female : 1970 Patient Status: Inpatient Patient Location: [address] [place] [address] Study Date: 12/17/2019 08:28 AM Reason For Study: hx clots and extremity pain and swelling Ordering Physician: JOHN CANNON Performed By: Clare Schilling : JOHN CANNON > Jose E Dumont
== END 2019-12-17 11:30 | DRG 193 ==
LOC: ER 13:49 → EH 16:13 → 4N 19:39 → 3W 12-10 20:30
PROVIDERS: ADMIT Internal Medicine; ATTEND Internal Medicine
PROC: 5A09557 Assistance with Respiratory Ventilation, Greater than 96 Consecutive Hours, Continuous Positive Airway Pressure (ICD-10-PCS; principal; 2019-12-10)
DX: J18.9 Pneumonia, unspecified organism (principal); J96.01 Acute respiratory failure with hypoxia; E27.40 Unspecified adrenocortical insufficiency; N39.0 Urinary tract infection, site not specified; L97.929 Non-pressure chronic ulcer of unspecified part of left lower leg with unspecified severity; J44.0 Chronic obstructive pulmonary disease with (acute) lower respiratory infection; J44.9 Chronic obstructive pulmonary disease, unspecified; I95.9 Hypotension, unspecified; E11.622 Type 2 diabetes mellitus with other skin ulcer; F17.210 Nicotine dependence, cigarettes, uncomplicated; E78.5 Hyperlipidemia, unspecified; E03.9 Hypothyroidism, unspecified; D64.9 Anemia, unspecified; K21.9 Gastro-esophageal reflux disease without esophagitis; M19.90 Unspecified osteoarthritis, unspecified site; F31.9 Bipolar disorder, unspecified; Z79.899 Other long term (current) drug therapy; Z88.0 Allergy status to penicillin; Z98.84 Bariatric surgery status; Z90.49 Acquired absence of other specified parts of digestive tract; Z85.43 Personal history of malignant neoplasm of ovary; Z83.3 Family history of diabetes mellitus; Z82.49 Family history of ischemic heart disease and other diseases of the circulatory system; Z88.2 Allergy status to sulfonamides; Z96.642 Presence of left artificial hip joint
CPT/HCPCS: 36415; 36600; 71045; 80048; 80053; 81001; 82550; 82553; 82803; 83036; 83605; 83880; 84484; 85025; 87040; 87070; 87086; 87088; 87186; 93005; 93010; 93970; 94660; 96374; 99291; J1644; J1720; J1940; J1956; J2405; J2930; J3480; J3490; J7030; J7060; J7120; J7620

== ENCOUNTER 2020-08-15 11:36 | Inpatient (IN) | payer MEDICARE, MEDICAID ==
--- NOTE | 2020-08-15 11:53 | ER Document Report ---
ED Medical Screen (RME) - General Chief Complaint: Chest Pain > 30 Stated Complaint: DIFFICULTY BREATHING Time Seen by Provider: 08/15/20 11:48 Primary Care Provider: JOHN CANNON MD [Primary Care Provider] - Follow up as needed Mode of Arrival: Wheelchair Information source: Patient Notes: 50-year-old female presents to ED for complaint of chest pain that started yesterday. She states it is very painful to take a deep breath. It hurts in the center of her chest. She states that when she does cough she has thick green sputum. She denies any fevers denies runny nose or congestion, denies any substance or taste or smell. She states she has been very weak for the last 3 days. She states she lives with her children. Children are adults. I have greeted and performed a rapid initial assessment of this patient. A comprehensive ED assessment and evaluation of the patient, analysis of test results and completion of medical decision making process will be conducted by an additional ED providers. TRAVEL OUTSIDE OF THE [place] IN LAST 30 DAYS: No - Related Data Allergies/Adverse Reactions: cilastatin [From Primaxin IV] Allergy (Intermediate, Verified 09/22/19 11:16) Facial swelling imipenem [From Primaxin IV] Allergy (Intermediate, Verified 09/22/19 11:16) Facial swelling Penicillins Allergy (Mild, Verified 09/22/19 11:16) Generalized rash Sulfa (Sulfonamide Antibiotics) Allergy (Mild, Verified 09/22/19 11:16) Generalized rash Past Medical History - Past Medical History Cardiac Medical History: Reports: Hx Hypercholesterolemia - Corrected with gastric bypass, Hx Hypertension - Corrected with gastric bypass Pulmonary Medical History: Reports: Hx COPD, Hx Pneumonia Neurological Medical History: Reports: Hx Cerebrovascular Accident Endocrine Medical History: Reports: Hx Diabetes Mellitus Type 2 - Corrected with gastric bypass, Hx Hypothyroidism Renal/ Medical History: Denies: Hx Ovarian Cysts, Hx Peritoneal Dialysis, Hx Pelvic Inflammatory Disease Malignancy Medical History: Reports: Hx Ovarian Cancer GI Medical History: Reports: Hx Gastroesophageal Reflux Disease, Hx Ulcer, Hx Colonoscopy, Hx Endoscopy Musculoskeltal Medical History: Reports Hx Arthritis Psychiatric Medical History: Reports: Hx Anxiety, Hx Bipolar Disorder, Hx Depression, Hx Schizophrenia Traumatic Medical History: Reports: Hx Fractures - 3 fx, left hip fx 10/2017 Infectious Medical History: Reports: None Past Surgical History: Reports: Hx Abdominal Surgery - gastric bypass, reversal, Hx Cholecystectomy, Hx Gastric Bypass Surgery, Hx Hysterectomy, Hx Orthopedic Surgery - LLE, left jaw, total left hip arthroplasty on 09/08/2018. - Immunizations Immunizations up to date: No Hx Diphtheria, Pertussis, Tetanus Vaccination: No History of Pneumococcal Vaccine: No History of Influenza Vaccine for 08/2019 - 01/2020 Season: No Physical Exam - Vital signs Vitals: Temp Pulse Resp BP Pulse Ox 98.3 F 113 H 18 92/60 L 95 08/15/20 11:41 08/15/20 11:41 08/15/20 11:41 08/15/20 11:41 08/15/20 11:41 Course - Vital Signs Vital signs: Temp Pulse Resp BP Pulse Ox 98.3 F 113 H 18 92/60 L 95 08/15/20 11:41 08/15/20 11:41 08/15/20 11:41 08/15/20 11:41 08/15/20 11:41 Doctor's Discharge - Discharge Referrals: JOHN CANNON MD [Primary Care Provider] - Follow up as needed
--- NOTE | 2020-08-15 15:06 | RADIOLOGY REPORT (SQ) ---
EXAM DESCRIPTION: CHEST SINGLE VIEW IMAGES COMPLETED DATE/TIME: 08/15/2020 2:19 pm REASON FOR STUDY: chest pain short of breath COMPARISON: 12/16/2019 EXAM PARAMETERS: NUMBER OF VIEWS: One view. TECHNIQUE: Single frontal radiographic view of the chest acquired. RADIATION DOSE: NA LIMITATIONS: None. FINDINGS: LUNGS AND PLEURA: No opacities, masses or pneumothorax. No pleural effusion. MEDIASTINUM AND HILAR STRUCTURES: No masses. Contour normal. HEART AND VASCULAR STRUCTURES: Heart normal in size. Normal vasculature. BONES: No acute findings. HARDWARE: None in the chest. OTHER: No other significant finding. IMPRESSION: NO ACUTE RADIOGRAPHIC FINDING IN THE CHEST. TECHNICAL DOCUMENTATION: JOB ID: [id number] [employer]- All Rights Reserved Reading location - IP/workstation name: [email or web address]
[2020-08-15] MEDS ORDERED: AZITHROMYCIN INJ 500 MG VIAL IV ONE ×2 (15:43→19:00)
[2020-08-15] MEDS ORDERED: IPRATROPIUM/ALBUTEROL 0.5-2.5 MG/3 ML AMPUL NEB ONE ×2 (15:44→19:00)
[2020-08-15] MEDS ORDERED: DEXAMETHASONE SOD PHOS INJ 10 MG/1 ML VIAL IV ONE ×2 (15:44→19:00)
[2020-08-15] MEDS ORDERED: NORMAL SALINE 500 ML IV ONE ×2 (15:45→19:00)
[2020-08-15 15:47] LABS: ABSOLUTE BASOPHILS # (AUTO) 0.1 10^3/uL (0.0-0.2); ABSOLUTE LYMPHOCYTES (AUTO) 1.7 10^3/uL (0.5-4.7); ABSOLUTE MONOCYTES (AUTO) 0.8 10^3/uL (0.1-1.4); ABSOLUTE NEUT (AUTO) 11.8 10^3/uL (1.7-8.2); BASOPHILS % (AUTO) 0.5 % (0-2); EOSINOPHILS % (AUTO) 0.2 % (0-6); HEMATOCRIT 36.5 % (36.0-47.0); LYMPHOCYTES % (AUTO) 11.6 % (13-45); MEAN CORPUSCULAR HEMOGLOBIN 31.8 pg (27.0-33.4); MEAN CORPUSCULAR VOLUME 96 fl (80-97); MONOCYTES % (AUTO) 5.8 % (3-13); PLATELET COUNT 289 10^3/uL (150-450); RED BLOOD COUNT 3.79 10^6/uL (3.72-5.28); RED CELL DISTRIBUTION WIDTH 15.7 % (11.5-14.0); SEGMENTED NEUTROPHILS % (AUTO) 81.9 % (42-78); TOTAL CELLS COUNTED % (AUTO) 100 %; WHITE BLOOD COUNT 14.4 10^3/uL (4.0-10.5)
--- NOTE | 2020-08-15 15:50 | ER Document Report ---
ED General - General Chief Complaint: Chest Pain > 30 Stated Complaint: DIFFICULTY BREATHING Time Seen by Provider: 08/15/20 11:48 Primary Care Provider: JOHN CANNON MD [Primary Care Provider] - Follow up as needed Mode of Arrival: Wheelchair Information source: Patient Notes: Patient is a 50-year-old female with history of COPD presenting with 3 days of shortness of breath, cough, chills, weakness/malaise. She is on inhaled COPD meds as well as rescue albuterol nebs. She is not oxygen dependent at home. Presented today with pleuritic chest pain with shortness of breath. She has a history of a DVT in the past. Not currently on anticoagulants. She has no recorded fevers during this time. No definitive coronavirus exposure. TRAVEL OUTSIDE OF THE [place] IN LAST 30 DAYS: No - Related Data Allergies/Adverse Reactions: cilastatin [From Primaxin IV] Allergy (Intermediate, Verified 09/22/19 11:16) Facial swelling imipenem [From Primaxin IV] Allergy (Intermediate, Verified 09/22/19 11:16) Facial swelling Penicillins Allergy (Mild, Verified 09/22/19 11:16) Generalized rash Sulfa (Sulfonamide Antibiotics) Allergy (Mild, Verified 09/22/19 11:16) Generalized rash Past Medical History - General Information source: Patient - Social History Smoking Status: Current Every Day Smoker Family History: DM, Hypertension - Past Medical History Cardiac Medical History: Reports: Hx Hypercholesterolemia - Corrected with gastric bypass, Hx Hypertension - Corrected with gastric bypass Pulmonary Medical History: Reports: Hx COPD, Hx Pneumonia Neurological Medical History: Reports: Hx Cerebrovascular Accident Endocrine Medical History: Reports: Hx Diabetes Mellitus Type 2 - Corrected with gastric bypass, Hx Hypothyroidism Renal/ Medical History: Denies: Hx Ovarian Cysts, Hx Peritoneal Dialysis, Hx Pelvic Inflammatory Disease Malignancy Medical History: Reports: Hx Ovarian Cancer GI Medical History: Reports: Hx Gastroesophageal Reflux Disease, Hx Ulcer, Hx Colonoscopy, Hx Endoscopy Musculoskeletal Medical History: Reports Hx Arthritis Psychiatric Medical History: Reports: Hx Anxiety, Hx Bipolar Disorder, Hx Depression, Hx Schizophrenia Traumatic Medical History: Reports: Hx Fractures - 3 fx, left hip fx 10/2017 Infectious Medical History: Reports: None Past Surgical History: Reports: Hx Abdominal Surgery - gastric bypass, reversal, Hx Cholecystectomy, Hx Gastric Bypass Surgery, Hx Hysterectomy, Hx Orthopedic Surgery - LLE, left jaw, total left hip arthroplasty on 09/08/2018. - Immunizations Immunizations up to date: No Hx Diphtheria, Pertussis, Tetanus Vaccination: No History of Pneumococcal Vaccine: No Review of Systems - Review of Systems Notes: Constitutional: No fevers. +chills. +weaknesss/malaise EENT: No eye redness. No eye pain. No ear pain. No sore throat. Cardiovascular: No chest pain. No palpitations. Respiratory: + productive cough. +shortness of breath. No respiratory distress. Gastrointestinal: No abdominal pain. No nausea, vomiting, or diarrhea. Genitourinary: Atraumatic. No lesions. No pain. No discharge. Musculoskeletal: Atraumatic. No swelling. No deformities. Skin: No rash or lesions. Lymphatic: No swollen lymph nodes. Neurologic: No headache. No syncope. Psychiatric: No suicidal or homicidal ideation. Physical Exam - Vital signs Vitals: Temp Pulse Resp BP Pulse Ox 98.3 F 113 H 18 92/60 L 95 08/15/20 11:41 08/15/20 11:41 08/15/20 11:41 08/15/20 11:41 08/15/20 11:41 - Notes Notes: General: Well-developed, well-nourished. In no acute distress. Non-toxic appearing. Cardiac: Well-perfused. Mildly tachycardic. No murmurs, rubs, or gallops. Pulmonary: No respiratory distress. No cyanosis. Bilateral lung sainz are diminished. Abdominal: Non-distended. Non-rigid. Bowels sounds are present in all four quadrants. No guarding or rebound. HEENT: Head is atraumatic. Conjunctivae not reddened. No tearing. PERRL. EOMI. Orbits atraumatic. No periorbital swelling or erythema. Oropharynx is without erythema, swelling, or exudates. Neck: Supple. No adenopathy. No meningismus. Dermatologic: Warm with good turgor. No rash. Atraumatic. Chest: Atraumatic. No chest wall tenderness to palpation. Musculoskeletal: Moves all extremities well. No range of motion deficits. no m uscular or joint tenderness. No paraspinal muscle tenderness. no midline spinal tenderness or step-off. Genitourinary: Examination deferred Neurologic: No gross neurologic deficits. Psychiatric: Normal mood. Course - Re-evaluation Re-evalutation: 08/15/20 15:48 I was notified by the PCT that the patient was initially hypoxic with good plethysmography. She was put on 2 L of nasal cannula oxygen. I went and examined the patient and turned off her oxygen and watched her for several minutes. She became more tachypneic but her saturations remained at 97% or above. Given her history of COPD, high probability for coronavirus infection/pneumonia. Unfortunately with her history for DVT in the past will need to scan her as she is slightly tachycardic and history of hypoxia. Give her some fluids. Blood pressures a little bit low but she may live there normally. We will get some blood cultures, lactic acid, start some Zithromax for her green productive sputum coronavirus and influenza swabs will be obtained. We will give her some dexamethasone and some serial DuoNeb treatments and follow her closely. She is getting a pulmonary embolism scan shortly. 08/15/20 16:18 Patient's IV is still getting established. She has a potassium of 2.3. 40 mEq of oral potassium chloride ordered. EKG was reviewed which shows a simple sinus tachycardia. 08/15/20 18:32 Patient is still requiring oxygen to stay above 90%. Her CT scan shows no PE but bilateral groundglass opacities which is concerning for COVID. She still needs her intravenous steroids, DuoNeb treatments, and antibiotics. Hoping she will make some improvement. However without oxygen she has not been able to maintain her sats this on room air. She may require admission. 08/15/20 19:49 Reassessed the patient after 3 DuoNeb treatments. She is saturating 92 to 93% on room air. She is not tachycardic. She still feels short of breath. We will give her another double dose of albuterol and reassess. 08/15/20 21:15 Patient has had 3 duo nebs and a total of 2 albuterol treatments, Zithromax, dexamethasone. She is profoundly short of breath on ambulation trial. Oxygen saturations as low as 90% and tachycardia between 120 and 130. She appears to have a presentation consistent with COVID pneumonia. Spoke with her primary doctor, Dr. Cannon who agrees to admit her full admission into the [facility] unit. - Vital Signs Vital signs: Temp Pulse Resp BP Pulse Ox 98.3 F 113 H 25 H 92/59 L 99 08/15/20 11:41 08/15/20 11:41 08/15/20 20:01 08/15/20 20:01 08/15/20 20:01 - Laboratory Result Diagrams: 08/15/20 15:20 08/15/20 15:20 Laboratory results interpreted by me: 08/15/20 08/15/20 08/15/20 15:20 15:20 18:26 WBC 14.4 H RDW 15.7 H Lymph % (Auto) 11.6 L Absolute Neuts (auto) 11.8 H Seg Neutrophils % 81.9 H Potassium 2.3 L* Chloride 110 H Calcium 7.3 L Direct Bilirubin 0.5 H AST 62 H ALT 45 H Alkaline Phosphatase 285 H Total Protein 4.7 L Albumin 2.2 L Lipase 14.7 L Urine Protein 30 H Urine Ketones TRACE H Urine Urobilinogen 4.0 H Leukocyte Esterase Rfl MODERATE H Urine Ascorbic Acid 20 H Discharge - Discharge Clinical Impression: Person under investigation for COVID-19, Hypokalemia Pneumonia Qualifiers: Pneumonia type: due to unspecified organism Laterality: bilateral Lung location: unspecified part of lung Qualified Code(s): J18.9 - Pneumonia, unspecified organism Condition: Good Disposition: ADMITTED INPATIENT Admitting Provider: [facility] Admitted: [facility] Referrals: JOHN CANNON MD [Primary Care Provider] - Follow up as needed
[2020-08-15 16:00] LABS: ALBUMIN 2.2 g/dL (3.5-5.0); ALKALINE PHOSPHATASE 285 U/L (38-126); ANION GAP 9 (5-19); ASPARTATE AMINO TRANSFERASE 62 U/L (14-36); BILIRUBIN,DIRECT 0.5 mg/dL (0.0-0.4); BILIRUBIN,TOTAL 0.6 mg/dL (0.2-1.3); BLOOD UREA NITROGEN 8 mg/dL (7-20); CALCIUM 7.3 mg/dL (8.4-10.2); CARBON DIOXIDE 22 mmol/L (22-30); CHLORIDE 110 mmol/L (98-107); GLUCOSE 96 mg/dL (75-110); TOTAL PROTEIN 4.7 g/dL (6.3-8.2)
[2020-08-15 16:03] LABS: A TYPE INFLUENZA AG NEGATIVE (NEGATIVE)
[2020-08-15 16:04] LABS: B INFLUENZA AG NEGATIVE (NEGATIVE); POTASSIUM 2.3 mmol/L (3.6-5.0)
[2020-08-15 16:09] LABS: CREATINE KINASE MB 1.89 ng/mL (<4.55)
[2020-08-15 16:15] LABS: TROPONIN I < 0.012 ng/mL
[2020-08-15] MEDS ORDERED: POTASSIUM CHLORIDE 10 MEQ TABLET.ER PO ONE ×2 (16:17→19:00)
--- NOTE | 2020-08-15 18:15 | RADIOLOGY REPORT (SQ) ---
EXAM DESCRIPTION: CTA CHEST IMAGES COMPLETED DATE/TIME: 08/15/2020 5:57 pm REASON FOR STUDY: tachy, sob, hypoxia, pleuritic cp COMPARISON: 11/09/2018 TECHNIQUE: CT scan of the chest performed using helical scanning technique with dynamic intravenous contrast injection. Images reviewed with lung, soft tissue and bone windows. Reconstructed coronal and sagittal MPR images reviewed. Additional 3 dimensional post-processing performed to develop Maximal Intensity Projection images (IA P). All images stored on PACS. All CT scanners at this facility use dose modulation, iterative reconstruction, and/or weight based d osing when appropriate to reduce radiation dose to as low as reasonably achievable (ALARA). [facility]: Dose Right [facility]: CareDose [facility]: Dose Right [facility]: Teradose 4D [facility]: Makeblock CONTRAST TYPE AND DOSE: contrast/concentration: Isovue 350.00 mmol/ml; Total Contrast Delivered: 67. 0 ml; Total Saline Delivered: 40.0 ml Contrast bolus optimized for the pulmonary arteries. Not diagnostic for the aorta. RENAL FUNCTION: None required. The patient is less than 50 years old. RADIATION DOSE: CT Rad equipment meets quality standard of care and radiation dose reduction techniq ues were employed. CTDIvol: 6.6 - 14.3 mGy. DLP: 446 mGy-cm. . LIMITATIONS: None. FINDINGS: LUNGS AND PLEURA: No pneumothorax. Diffuse ground-glass opacities throughout both lungs w ith some mild sparing of the majority of the left upper lobe. No pleural effusions. AORTA AND GREAT VESSELS: No aneurysm. Contrast bolus not optimized for the aorta. HEART: No pericardial effusion. No significant coronary artery calcifications. PULMONARY ARTERIES: No emboli visualized in the main pulmonary arteries or the segmental branches. HILAR AND MEDIASTINAL STRUCTURES: Multiple enlarged nodes similar to the prior study. HARDWARE: None in the chest. UPPER ABDOMEN: No acute findings. Limited exam. THYROID AND OTHER SOFT TISSUES: No masses. No adenopathy. BONES: No acute finding. 3D MIPS: Confirm above findings. OTHER: No other significant finding. IMPRESSION: No emboli visualized in the main pulmonary arteries or the segmental branches.Diffuse gr ound-glass opacities throughout both lungs with some mild sparing of the majority of the left upper l obe. No pleural effusions.Multiple enlarged nodes similar to the prior study. COMMENT: Quality ID # [id number]: Final reports with documentation of one or more dose reduction techniques (e.g., Automated exposure control, adjustment of the mA and/or kV according to patient size, use of iterative reconstruction technique) TECHNICAL DOCUMENTATION: JOB ID: [id number] [place]-72 2010 [employer]- All Rights Reserved Reading location - IP/workstation name: [email or web address]
[2020-08-15 19:04] LABS: APPEARANCE,URINE SLIGHTLY-CLOUDY; BILIRUBIN,URINE NEGATIVE (NEGATIVE); GLUCOSE, URINE NEGATIVE (NEGATIVE); KETONES,URINE TRACE mg/dL (NEGATIVE); PROTEIN,URINE 30 mg/dL (NEGATIVE)
[2020-08-15 19:07] LABS: COLOR,URINE DARK YELLOW
[2020-08-15] MEDS ORDERED: ALBUTEROL SULFATE 0.083% NEB 2.5 MG/3 ML AMPUL NEB ONE (19:49)
[2020-08-15] MEDS ORDERED: LEVALBUTEROL HCL NEB 0.63 MG/3 ML AMPUL NEB PRN (21:53)
--- NOTE | 2020-08-15 22:09 | PDOC H&P ---
History of Present Illness Admission Date/PCP: 08/15/20 21:23 JOHN CANNON MD History of Present Illness: [place] is a 50 year old female, She has a history of chronic obstructive pulmonary disease she presented to the emergency room for evaluation of shortness of breath for the last 3 days, cough, chills, generalized malaise and weakness. There was associated pleurisy,, a CT angiogram was obtained, it demonstrated diffuse ground glass opacities throughout both lung with some mild sparing of the majority of the left upper lobe. No pleural effusions there was no emboli visualized in the main pulmonary arteries or the segmental branches, in the area of COVID pandemic, SARS-CoV-2 pneumonia was suspected, she is to be admitted to respiratory isolation in [facility] to rule out SARS-CoV-2 infection but she will empirically be started on IV antibiotic for community-acquired p neumonia. Past Medical History Cardiac Medical History: Reports: Hyperlipidema - Corrected with gastric bypass, Hypertension - Corrected with gastric bypass Pulmonary Medical History: Reports: Chronic Obstructive Pulmonary Disease ([place] PD), Pneumonia Endocrine Medical History: Reports: Diabetes Mellitus Type 2 - Corrected with gastric bypass, Hypothyroidism Malignancy Medical History: Reports: Ovarian Cancer GI Medical History: Reports: Gastroesophageal Reflux Disease Musculoskeltal Medical History: Reports: Arthritis Psychiatric Medical History: Reports: Bipolar Disorder, Depression Hematology: Reports: Anemia Infectious Medical History: Reports: None Past Surgical History Past Surgical History: Reports: Cholecystectomy, Gastric Bypass Surgery, Hysterectomy, Orthopedic Surgery - LLE, left jaw, total left hip arthroplasty on 09/08/2018. Social History Smoking Status: Current Every Day Smoker Frequency of Alcohol Use: None Hx Recreational Drug Use: No Drugs: None Hx Prescription Drug Abuse: No Family History Family History: DM, Hypertension Parental Family History Reviewed: Yes Children Family History Reviewed: Yes Sibling(s) Family History Reviewed.: Yes Medication/Allergy Home Medications: Alprazolam [Xanax 0.25 mg Tablet] 0.25 mg PO TIDP PRN 12/09/19 Amitriptyline HCl [Elavil 50 mg Tablet] 50 mg PO QHS 12/09/19 Benztropine Mesylate [Cogentin 1 mg Tablet] 1 mg PO QPM 12/09/19 Esomeprazole Magnesium [Nexium 24Hr] 40 mg PO DAILY 12/09/19 Fluticasone/Umeclidin/Vilanter [Trelegy 100-62.5-25 Mcg Ellipta 14 Dose/Dpi] 1 each IH DAILY 12/09/19 Gabapentin [Neurontin 300 mg Capsule] 300 mg PO Q8 12/09/19 Lurasidone HCl [Latuda 40 mg Tablet] 40 mg PO QPM 12/09/19 Sertraline HCl 100 mg PO QHS 12/09/19 Biotin 1 cap PO DAILY 08/16/20 Furosemide [Lasix 40 mg Tablet] 40 mg PO QAM 08/16/20 Ibuprofen [Motrin 800 mg Tablet] 800 mg PO Q8HP PRN 08/16/20 Levothyroxine Sodium [Synthroid 0.088 mg Tablet] 0.088 mg PO Q6AM 08/16/20 Linaclotide [Linzess] 290 mg PO Q6AM 08/16/20 Lisinopril [Zestril] 2.5 mg PO DAILY 08/16/20 Midodrine HCl 2.5 mg PO DAILY 08/16/20 Multivitamin [Tab-A-Jose (Multiple Vitamin) Tablet] 1 tab PO DAILY 08/16/20 Ondansetron [Ondansetron Odt] 8 mg PO Q12HP PRN 08/16/20 Oxycodone HCl [Oxy-Ir 5 mg Tablet] 10 mg PO Q4HP PRN MDD 6 tabs 08/16/20 Potassium Chloride [Klor-Con 10 Meq Tablet ER] 20 meq PO DAILY 08/16/20 Topiramate [Topamax 25 mg Tablet] 25 mg PO Q12 08/16/20 Allergies/Adverse Reactions: cilastatin [From Primaxin IV] Allergy (Intermediate, Verified 09/22/19 11:16) Facial swelling imipenem [From Primaxin IV] Allergy (Intermediate, Verified 09/22/19 11:16) Facial swelling Penicillins Allergy (Mild, Verified 09/22/19 11:16) Generalized rash Sulfa (Sulfonamide Antibiotics) Allergy (Mild, Verified 09/22/19 11:16) Generalized rash Review of Systems Constitutional: ABSENT: chills, fever(s), headache(s), weight gain, weight loss Eyes: ABSENT: visual disturbances Ears: ABSENT: hearing changes Cardiovascular: ABSENT: chest pain, dyspnea on exertion, edema, orthropnea, palpitations Respiratory: PRESENT: cough, dyspnea, sputum Gastrointestinal: ABSENT: abdominal pain, constipation, diarrhea, hematemesis, hematochezia, nausea, vomiting Genitourinary: ABSENT: dysuria, hematuria Musculoskeletal: ABSENT: joint swelling Integumentary: ABSENT: rash, wounds Neurological: ABSENT: abnormal gait, abnormal speech, confusion, dizziness, focal weakness, syncope Psychiatric: ABSENT: anxiety, depression, homidical ideation, suicidal ideation Endocrine: ABSENT: cold intolerance, heat intolerance, menstrual abnormalities, polydipsia, polyuria Hematologic/Lymphatic: ABSENT: easy bleeding, easy bruising, lymphadenopathy Physical Exam Vital Signs: Temp Pulse Resp BP Pulse Ox 98.3 F 113 H 34 H 98/54 L 95 08/15/20 11:41 08/15/20 11:41 08/15/20 21:01 08/15/20 21:01 08/15/20 21:01 Intake & Output 08/14/20 08/15/20 08/16/20 06:59 06:59 06:59 Intake Total 500 Balance 500 Weight 58.6 kg General appearance: PRESENT: no acute distress Head exam: PRESENT: atraumatic, normocephalic Eye exam: PRESENT: PERRLA Neck exam: PRESENT: full ROM Respiratory exam: PRESENT: rhonchi Cardiovascular exam: PRESENT: RRR, +S1, +S2 Vascular exam: PRESENT: normal capillary refill GI/Abdominal exam: PRESENT: normal bowel sounds, soft Rectal exam: PRESENT: deferred Neurological exam: PRESENT: alert, CN II-XII grossly intact Psychiatric exam: PRESENT: appropriate affect, normal mood Skin exam: PRESENT: dry, intact, warm Results Laboratory Results: 08/15/20 15:20 08/15/20 15:20 08/15/20 08/15/20 08/15/20 15:20 15:20 16:10 WBC 14.4 H RBC 3.79 Hgb 12.0 Hct 36.5 MCV 96 MCH 31.8 MCHC 33.0 RDW 15.7 H Plt Count 289 Seg Neutrophils % 81.9 H Sodium 140.5 Potassium 2.3 L* Chloride 110 H Carbon Dioxide 22 Anion Gap 9 BUN 8 Creatinine 0.53 Est GFR ( Amer) > 60 Glucose 96 Lactic Acid 1.6 Calcium 7.3 L Total Bilirubin 0.6 AST 62 H Alkaline Phosphatase 285 H Total Protein 4.7 L Albumin 2.2 L Lipase 14.7 L Urine Color Urine Appearance Urine pH Ur Specific [place] Urine Protein Urine Glucose (UA) Urine Ketones Urine Blood Urine RBC (Auto) 08/15/20 18:26 WBC RBC Hgb Hct MCV MCH MCHC RDW Plt Count Seg Neutrophils % Sodium Potassium Chloride Carbon Dioxide Anion Gap BUN Creatinine Est GFR ( Amer) Glucose Lactic Acid Calcium Total Bilirubin AST Alkaline Phosphatase Total Protein Albumin Lipase Urine Color DARK YELLOW Urine Appearance SLIGHTLY-CLOUDY Urine pH 6.0 Ur Specific [place] 1.040 Urine Protein 30 H Urine Glucose (UA) NEGATIVE Urine Ketones TRACE H Urine Blood NEGATIVE Urine RBC (Auto) 6 08/15/20 15:20 CK-MB (CK-2) 1.89 Troponin I < 0.012 Impressions: Chest X-Ray 08/15/20 11:54 IMPRESSION: NO ACUTE RADIOGRAPHIC FINDING IN THE CHEST. Chest/Abdomen CTA 08/15/20 15:41 IMPRESSION: No emboli visualized in the main pulmonary arteries or the segmental branches.Diffuse ground-glass opacities throughout both lungs with some mild sparing of the majority of the left upper lobe. No pleural effusions.Multiple enlarged nodes similar to the prior study. Assessment & Plan - Diagnosis (1) Acute hypoxemic respiratory failure Is this a current diagnosis for this admission?: Yes Plan: Patient requires supplemental oxygen via nasal cannula (2) Hypokalemia Is this a current diagnosis for this admission?: Yes Plan: Replace potassium (3) Bilateral pneumonia Qualifiers: Pneumonia type: due to unspecified organism Lung location: unspecified part of lung Qualified Code(s): J18.9 - Pneumonia, unspecified organism Is this a current diagnosis for this admission?: Yes Plan: Start IV antibiotic, IV dexamethasone, need to rule out SARS-CoV-2 infection - Time Time Spent: Greater than 70 Minutes Medications reviewed and adjusted accordingly: Yes Anticipated Discharge Disposition: Home, Self Care Anticipated Discharge Timeframe: within 72 hours
[2020-08-15] MEDS ORDERED: POTASSI CL 20 MEQ/50 ML RIDER 20 MEQ/50 ML RTUPB IV SCH (23:00)
[2020-08-15] MEDS ORDERED: AZTREONAM INJ 1 GM VIAL IV SCH (23:00)
[2020-08-15] MEDS ORDERED: LEVOFLOXACIN 750 MG/D5W RTU 750 MG/150 ML RTUPB IV ONE (23:00)
[2020-08-15 23:07] LABS: ARTERIAL BLOOD BASE EXCESS -1.2 mmol/L; ARTERIAL BLOOD H2CO3 1.08 mmol/L (1.05-1.35); ARTERIAL BLOOD HCO3 22.9 mmol/L (20-24); ARTERIAL BLOOD O2 SATURATION 92.6 % (94-98); ARTERIAL BLOOD PCO2 35.8 mmHg (35-45); ARTERIAL BLOOD PH 7.42 (7.35-7.45); ARTERIAL BLOOD PO2 62.5 mmHg (80-100)
[2020-08-15 23:10] LABS: ARTERIAL BLOOD FIO2 21%
[2020-08-15 23:25] LABS: CREATINE KINASE MB 3.47 ng/mL (<4.55); NT PRO BNP 463 pg/mL (<125)
[2020-08-15 23:37] LABS: TROPONIN I < 0.012 ng/mL
[2020-08-15] MEDS: ENOXAPARIN SODIUM INJ 40 MG/0.4 ML DISP.SYRIN SUBCUT SCH (23:45)
[2020-08-15] MEDS: RINGERS SOLUTION,LACTATED 1,000 ML IV PRN (23:47)
[2020-08-16] MEDS: AZTREONAM 1 GM in DEXTROSE 5%-WATER 50 ML IV SCH ×3 (02:00→17:38)
[2020-08-16] MEDS ORDERED: POTASSI CL 20 MEQ/50 ML RIDER 20 MEQ/50 ML RTUPB IV SCH ×2 (03:00→21:00)
[2020-08-16] MEDS ORDERED: AZTREONAM INJ 1 GM VIAL ONE (03:15)
[2020-08-16] MEDS: DEXAMETHASONE SOD PHOSPHATE INJ 4 MG/1 ML VIAL IV SCH ×2 (05:31→17:38)
[2020-08-16 06:18] LABS: ABSOLUTE BASOPHILS # (AUTO) 0.1 10^3/uL (0.0-0.2); ABSOLUTE LYMPHOCYTES (AUTO) 0.8 10^3/uL (0.5-4.7); ABSOLUTE MONOCYTES (AUTO) 0.5 10^3/uL (0.1-1.4); ABSOLUTE NEUT (AUTO) 10.1 10^3/uL (1.7-8.2); BASOPHILS % (AUTO) 0.8 % (0-2); HEMATOCRIT 29.2 % (36.0-47.0); LYMPHOCYTES % (AUTO) 7.3 % (13-45); MEAN CORPUSCULAR HGB CONC 33.7 g/dL (32.0-36.0); MEAN CORPUSCULAR VOLUME 95 fl (80-97); MONOCYTES % (AUTO) 4.2 % (3-13); PLATELET COUNT 262 10^3/uL (150-450); RED BLOOD COUNT 3.07 10^6/uL (3.72-5.28); SEGMENTED NEUTROPHILS % (AUTO) 87.7 % (42-78); TOTAL CELLS COUNTED % (AUTO) 100 %; WHITE BLOOD COUNT 11.6 10^3/uL (4.0-10.5)
[2020-08-16 06:24] LABS: HEMOGLOBIN 9.8 g/dL (12.0-15.5)
[2020-08-16 06:34] LABS: ALBUMIN 1.8 g/dL (3.5-5.0); ALKALINE PHOSPHATASE 217 U/L (38-126); ASPARTATE AMINO TRANSFERASE 74 U/L (14-36); BILIRUBIN,DIRECT 0.4 mg/dL (0.0-0.4); BILIRUBIN,TOTAL 0.4 mg/dL (0.2-1.3); BLOOD UREA NITROGEN 8 mg/dL (7-20); CARBON DIOXIDE 25 mmol/L (22-30); POTASSIUM 3.1 mmol/L (3.6-5.0)
[2020-08-16 06:41] LABS: CHLORIDE 113 mmol/L (98-107); GLUCOSE 95 mg/dL (75-110)
[2020-08-16 07:02] LABS: ANION GAP 2 (5-19)
[2020-08-16] MEDS: ENOXAPARIN SODIUM INJ 40 MG/0.4 ML DISP.SYRIN SUBCUT SCH (09:08)
[2020-08-16] MEDS: LEVOFLOXACIN 750 MG/D5W RTU 750 MG/150 ML RTUPB IV SCH (21:45)
[2020-08-17] MEDS: POTASSI CL 20 MEQ/50 ML RIDER 20 MEQ/50 ML RTUPB IV SCH ×2 (01:00→03:00)
[2020-08-17] MEDS: AZTREONAM 1 GM in DEXTROSE 5%-WATER 50 ML IV SCH ×3 (02:00→18:55)
[2020-08-17 05:05] LABS: ABSOLUTE BASOPHILS # (AUTO) 0.1 10^3/uL (0.0-0.2); ABSOLUTE EOSINOPHILS # (AUTO) 0.1 10^3/uL (0.0-0.6); ABSOLUTE LYMPHOCYTES (AUTO) 1.8 10^3/uL (0.5-4.7); ABSOLUTE MONOCYTES (AUTO) 0.8 10^3/uL (0.1-1.4); ABSOLUTE NEUT (AUTO) 16.2 10^3/uL (1.7-8.2); BASOPHILS % (AUTO) 0.3 % (0-2); EOSINOPHILS % (AUTO) 0.4 % (0-6); HEMATOCRIT 32.9 % (36.0-47.0); LYMPHOCYTES % (AUTO) 9.6 % (13-45); MEAN CORPUSCULAR HEMOGLOBIN 31.6 pg (27.0-33.4); MEAN CORPUSCULAR HGB CONC 33.4 g/dL (32.0-36.0); MEAN CORPUSCULAR VOLUME 95 fl (80-97); MONOCYTES % (AUTO) 4.3 % (3-13); PLATELET COUNT 287 10^3/uL (150-450); RED BLOOD COUNT 3.48 10^6/uL (3.72-5.28); RED CELL DISTRIBUTION WIDTH 16.1 % (11.5-14.0); SEGMENTED NEUTROPHILS % (AUTO) 85.4 % (42-78); TOTAL CELLS COUNTED % (AUTO) 100 %
[2020-08-17 05:22] LABS: ALBUMIN 1.8 g/dL (3.5-5.0); ALKALINE PHOSPHATASE 208 U/L (38-126); ASPARTATE AMINO TRANSFERASE 340 U/L (14-36); BILIRUBIN,DIRECT 0.3 mg/dL (0.0-0.4); BILIRUBIN,TOTAL 0.3 mg/dL (0.2-1.3); BLOOD UREA NITROGEN 10 mg/dL (7-20); CALCIUM 7.4 mg/dL (8.4-10.2); CARBON DIOXIDE 25 mmol/L (22-30); CHLORIDE 112 mmol/L (98-107); GLUCOSE 71 mg/dL (75-110); TOTAL PROTEIN 3.7 g/dL (6.3-8.2)
[2020-08-17] MEDS: DEXAMETHASONE SOD PHOSPHATE INJ 4 MG/1 ML VIAL IV SCH ×2 (05:22→18:54)
[2020-08-17 05:27] LABS: POTASSIUM 4.2 mmol/L (3.6-5.0)
[2020-08-17 05:44] LABS: ANION GAP 2 (5-19)
[2020-08-17] MEDS: ENOXAPARIN SODIUM INJ 40 MG/0.4 ML DISP.SYRIN SUBCUT SCH (11:06)
[2020-08-17] MEDS ORDERED: (PENDING PHARMACY ID) (Ondansetron [Ondansetron Odt] 8 MG) PO PRN (15:48)
[2020-08-17] MEDS ORDERED: ALPRAZOLAM 0.25 MG TABLET PO PRN (15:48)
[2020-08-17] MEDS ORDERED: (PENDING PHARMACY ID) (Linaclotide [Linzess] 290 MG) PO SCH (16:00)
[2020-08-17] MEDS ORDERED: (PENDING PHARMACY ID) (Esomeprazole Magnesium [Nexium 24hr] 40 MG) PO SCH (16:00)
[2020-08-17] MEDS ORDERED: BIOTIN PO SCH (16:00)
[2020-08-17] MEDS: TOPIRAMATE 25 MG TABLET PO SCH (18:55)
[2020-08-17] MEDS: MULTIVITAMIN TABLET PO SCH (18:56)
[2020-08-17] MEDS: LEVOTHYROXINE SODIUM 0.088 MG TABLET PO SCH (18:56)
[2020-08-17] MEDS: BENZTROPINE MESYLATE 1 MG TABLET PO SCH (19:00)
--- NOTE | 2020-08-17 19:38 | PDOC PROGRESS REPORT ---
Subjective Progress Note for:: 08/17/20 Subjective:: Patient seen by the bedside, she complained of left sided weakness, the SARS-CoV-2 test was negative, she is downgraded from the COVID unit to the regular side of IMCU Reason For Visit: ACUTE HYPOXEMIC RESPIRATORY FAILURE Physical Exam Vital Signs: Temp Pulse Resp BP Pulse Ox 98.2 F 100 16 107/70 95 08/17/20 15:56 08/17/20 16:35 08/17/20 16:35 08/17/20 15:56 08/17/20 16:35 Intake & Output 08/16/20 08/17/20 08/18/20 06:59 06:59 06:59 Intake Total 500 50 236 Output Total 400 Balance 500 50 -164 Weight 58.6 kg 57.8 kg General appearance: PRESENT: no acute distress Eye exam: PRESENT: PERRLA Respiratory exam: PRESENT: clear to auscultation rona Cardiovascular exam: PRESENT: +S1, +S2 GI/Abdominal exam: PRESENT: soft Neurological exam: PRESENT: alert, motor sensory deficit Results Laboratory Results: 08/17/20 04:19 08/17/20 04:18 08/17/20 08/17/20 04:18 04:19 WBC 19.0 H RBC 3.48 L Hgb 11.0 L Hct 32.9 L MCV 95 MCH 31.6 MCHC 33.4 RDW 16.1 H Plt Count 287 Seg Neutrophils % 85.4 H Sodium 139.2 Potassium 4.2 D Chloride 112 H Carbon Dioxide 25 Anion Gap 2 L BUN 10 Creatinine 0.63 Est GFR ( Amer) > 60 Glucose 71 L Calcium 7.4 L Total Bilirubin 0.3 AST 340 H Alkaline Phosphatase 208 H Total Protein 3.7 L Albumin 1.8 L 08/15/20 08/15/20 08/15/20 15:20 22:34 22:34 Creatine Kinase 758 H CK-MB (CK-2) 1.89 3.47 Troponin I < 0.012 < 0.012 NT-Pro-B Natriuret Pep 463 H Impressions: Chest X-Ray 08/15/20 11:54 IMPRESSION: NO ACUTE RADIOGRAPHIC FINDING IN THE CHEST. Chest/Abdomen CTA 08/15/20 15:41 IMPRESSION: No emboli visualized in the main pulmonary arteries or the segmental branches.Diffuse ground-glass opacities throughout both lungs with some mild sparing of the majority of the left upper lobe. No pleural effusions.Multiple enlarged nodes similar to the prior study. Assessment & Plan - Diagnosis (1) Acute hypoxemic respiratory failure Is this a current diagnosis for this admission?: Yes Plan: Continue supplemental oxygen via nasal cannula (2) Hypokalemia Is this a current diagnosis for this admission?: Yes (3) Bilateral pneumonia Qualifiers: Pneumonia type: due to unspecified organism Lung location: unspecified part of lung Qualified Code(s): J18.9 - Pneumonia, unspecified organism Is this a current diagnosis for this admission?: Yes Plan: Continue antibiotic (4) Hemiplegia affecting right dominant side Qualifiers: Hemiplegia type: unspecified type Hemiplegia etiology: unspecified etiology Qualified Code(s): G81.91 - Hemiplegia, unspecified affecting right dominant side Is this a current diagnosis for this admission?: Yes Plan: CAT scan of the head ordered - Time Time Spent with patient: 35 or more minutes Level of Care: IMCU Anticipated discharge: Home Anticipated DC Timeframe: within 72 hours - Inpatient Certification Based on my medical assessment, after consideration of the patient's comorbidities, presenting symptoms, or acuity I expect that the services needed warrant INPATIENT care.: Yes I certify that my determination is in accordance with my understanding of Medicare's requirements for reasonable and necessary INPATIENT services [42 CFR 412.3e].: Yes
[2020-08-17] MEDS: GABAPENTIN 300 MG CAPSULE PO SCH ×2 (20:10→21:14)
[2020-08-17] MEDS: LURASIDONE HCL 40 MG TABLET PO SCH (20:10)
[2020-08-17] MEDS: FLUTICASONE/UMECLIDIN/VILANTER 100-62.5-25 MCG/DOSE IH SCH (21:12)
[2020-08-17] MEDS: RINGERS SOLUTION,LACTATED 1,000 ML IV PRN (21:13)
[2020-08-17] MEDS: LEVOFLOXACIN 750 MG/D5W RTU 750 MG/150 ML RTUPB IV SCH (21:14)
[2020-08-17] MEDS: AMITRIPTYLINE HCL 50 MG TABLET PO SCH (21:14)
[2020-08-17] MEDS: SERTRALINE HCL 50 MG TABLET PO SCH (21:14)
--- NOTE | 2020-08-17 23:24 | RADIOLOGY REPORT (SQ) ---
CT HEAD WITHOUT IV CONTRAST HISTORY: Altered mental status. COMPARISON: 11/16/2018 TECHNIQUE: CT scan of the brain was performed without IV contrast. This exam was performed according to our departmental dose-optimization program, which includes automated exposure control, adjustment of the mA and/or kV according to patient size and/or use of iterative reconstruction technique. FINDINGS: The ventricles, cisterns, and sulci are age-appropriate. No evidence of acute infarction, intracranial hemorrhage, extra-axial fluid collection, or midline shift. No air-fluid levels are seen in the paranasal sinuses to suggest acute sinusitis. No depressed skull fracture. IMPRESSION: No acute intracranial findings are seen. Please note that MRI is more sensitive for the evaluation of early infarction, and may be performed if there is high clinical concern.
[2020-08-18] MEDS: AZTREONAM 1 GM in DEXTROSE 5%-WATER 50 ML IV SCH ×3 (01:51→17:44)
[2020-08-18 05:36] LABS: HEMATOCRIT 28.8 % (36.0-47.0); HEMOGLOBIN 9.6 g/dL (12.0-15.5); MEAN CORPUSCULAR HEMOGLOBIN 31.8 pg (27.0-33.4); MEAN CORPUSCULAR HGB CONC 33.4 g/dL (32.0-36.0); MEAN CORPUSCULAR VOLUME 95 fl (80-97); PLATELET COUNT 279 10^3/uL (150-450); RED BLOOD COUNT 3.02 10^6/uL (3.72-5.28); RED CELL DISTRIBUTION WIDTH 16.2 % (11.5-14.0); WHITE BLOOD COUNT 14.7 10^3/uL (4.0-10.5)
[2020-08-18] MEDS: DEXAMETHASONE SOD PHOSPHATE INJ 4 MG/1 ML VIAL IV SCH ×2 (05:43→17:44)
[2020-08-18] MEDS: TOPIRAMATE 25 MG TABLET PO SCH ×2 (05:44→17:44)
[2020-08-18] MEDS: GABAPENTIN 300 MG CAPSULE PO SCH ×3 (05:44→21:22)
[2020-08-18] MEDS: LEVOTHYROXINE SODIUM 0.088 MG TABLET PO SCH (05:44)
[2020-08-18 05:57] LABS: ALBUMIN 1.7 g/dL (3.5-5.0); ALKALINE PHOSPHATASE 166 U/L (38-126); ASPARTATE AMINO TRANSFERASE 418 U/L (14-36); BILIRUBIN,DIRECT 0.2 mg/dL (0.0-0.4); BILIRUBIN,TOTAL 0.2 mg/dL (0.2-1.3); BLOOD UREA NITROGEN 12 mg/dL (7-20); CALCIUM 7.3 mg/dL (8.4-10.2); POTASSIUM 3.9 mmol/L (3.6-5.0); TOTAL PROTEIN 3.6 g/dL (6.3-8.2)
[2020-08-18 06:02] LABS: ABSOLUTE LYMPHOCYTES# (MANUAL) 1.6 10^3/uL (0.5-4.7); ABSOLUTE MONOCYTES # (MANUAL) 0.1 10^3/uL (0.1-1.4); BASOPHILS % (MANUAL) 1 % (0-2); CARBON DIOXIDE 23 mmol/L (22-30); CHLORIDE 113 mmol/L (98-107); EOSINOPHILS % (MANUAL) 2 % (0-6); LYMPHOCYTES % (MANUAL) 11 % (13-45); MONOCYTES % (MANUAL) 1 % (3-13); SEGMENTED NEUTROPHILS % (MAN) 85 % (42-78); TOTAL CELLS COUNTED 100
[2020-08-18 06:04] LABS: ANISOCYTOSIS 1+; POLYCHROMASIA SLIGHT
[2020-08-18 06:05] LABS: GLUCOSE 67 mg/dL (75-110); PLATELET COMMENT ADEQUATE; RBC MORPHOLOGY COMMENT NORMO-CYTIC/CHROMIC
[2020-08-18 06:07] LABS: ANION GAP 1 (5-19)
[2020-08-18] MEDS ORDERED: INFLUENZA QUAD (6MOS+) 2020-21 VAC 0.5 ML SYR IM ONE (08:00)
[2020-08-18] MEDS: MULTIVITAMIN TABLET PO SCH (09:37)
[2020-08-18] MEDS: OXYCODONE HCL IR 5 MG TABLET PO PRN ×2 (09:37→21:23)
[2020-08-18] MEDS: ENOXAPARIN SODIUM INJ 40 MG/0.4 ML DISP.SYRIN SUBCUT SCH (09:37)
[2020-08-18] MEDS: PANTOPRAZOLE SODIUM 40 MG TABLET.DR PO SCH (09:38)
[2020-08-18] MEDS: RINGERS SOLUTION,LACTATED 1,000 ML IV PRN ×2 (09:38→23:30)
[2020-08-18] MEDS: FLUTICASONE/UMECLIDIN/VILANTER 100-62.5-25 MCG/DOSE IH SCH (09:39)
[2020-08-18] MEDS: LURASIDONE HCL 40 MG TABLET PO SCH (17:30)
[2020-08-18] MEDS: BENZTROPINE MESYLATE 1 MG TABLET PO SCH (17:44)
[2020-08-18] MEDS: AMITRIPTYLINE HCL 50 MG TABLET PO SCH (21:23)
[2020-08-18] MEDS: SERTRALINE HCL 50 MG TABLET PO SCH (21:23)
[2020-08-18] MEDS: LEVOFLOXACIN 750 MG/D5W RTU 750 MG/150 ML RTUPB IV SCH (21:24)
--- NOTE | 2020-08-18 22:06 | PDOC PROGRESS REPORT ---
Subjective Progress Note for:: 08/18/20 Subjective:: Patient seen by the bedside,The CT head was negative Reason For Visit: ACUTE HYPOXEMIC RESPIRATORY FAILURE Physical Exam Vital Signs: Temp Pulse Resp BP Pulse Ox 97.8 F 95 16 99/59 L 97 08/18/20 09:03 08/18/20 19:00 08/18/20 03:24 08/18/20 03:24 08/18/20 03:24 Intake & Output 08/17/20 08/18/20 08/19/20 06:59 06:59 06:59 Intake Total 7599 382 8761 Output Total 500 200 Balance 5218 265 7345 Weight 57.8 kg 55.7 kg General appearance: PRESENT: no acute distress Eye exam: PRESENT: PERRLA Respiratory exam: PRESENT: clear to auscultation rona Cardiovascular exam: PRESENT: +S1, +S2 GI/Abdominal exam: PRESENT: soft Neurological exam: PRESENT: alert Results Laboratory Results: 08/18/20 04:55 08/18/20 04:55 08/18/20 08/18/20 04:55 04:55 WBC 14.7 H RBC 3.02 L Hgb 9.6 L Hct 28.8 L MCV 95 MCH 31.8 MCHC 33.4 RDW 16.2 H Plt Count 279 Seg Neutrophils % Not Reportable Sodium 137.3 Potassium 3.9 Chloride 113 H Carbon Dioxide 23 Anion Gap 1 L BUN 12 Creatinine 0.56 Est GFR ( Amer) > 60 Glucose 67 L Calcium 7.3 L Total Bilirubin 0.2 AST 418 H Alkaline Phosphatase 166 H Total Protein 3.6 L Albumin 1.7 L 08/15/20 08/15/20 08/15/20 15:20 22:34 22:34 Creatine Kinase 758 H CK-MB (CK-2) 1.89 3.47 Troponin I < 0.012 < 0.012 NT-Pro-B Natriuret Pep 463 H Impressions: Chest X-Ray 08/15/20 11:54 IMPRESSION: NO ACUTE RADIOGRAPHIC FINDING IN THE CHEST. Chest/Abdomen CTA 08/15/20 15:41 IMPRESSION: No emboli visualized in the main pulmonary arteries or the segmental branches.Diffuse ground-glass opacities throughout both lungs with some mild sparing of the majority of the left upper lobe. No pleural effusions.Multiple enlarged nodes similar to the prior study. Head CT 08/17/20 00:00 IMPRESSION: No acute intracranial findings are seen. Please note that MRI is more sensitive for the evaluation of early infarction, and may be performed if there is high clinical concern. Assessment & Plan - Diagnosis (1) Acute hypoxemic respiratory failure Is this a current diagnosis for this admission?: Yes Plan: Continue supplemental oxygen via nasal cannula (2) Hypokalemia Is this a current diagnosis for this admission?: Yes (3) Bilateral pneumonia Qualifiers: Pneumonia type: due to unspecified organism Lung location: unspecified part of lung Qualified Code(s): J18.9 - Pneumonia, unspecified organism Is this a current diagnosis for this admission?: Yes Plan: Continue antibiotic (4) Hemiplegia affecting right dominant side Qualifiers: Hemiplegia type: unspecified type Hemiplegia etiology: unspecified etiology Qualified Code(s): G81.91 - Hemiplegia, unspecified affecting right dominant side Is this a current diagnosis for this admission?: Yes - Time Time Spent with patient: 25-34 minutes Level of Care: IMCU Medications reviewed and adjusted accordingly: Yes Anticipated discharge: Home Anticipated DC Timeframe: within 72 hours - Inpatient Certification Based on my medical assessment, after consideration of the patient's comorbidities, presenting symptoms, or acuity I expect that the services needed warrant INPATIENT care.: Yes I certify that my determination is in accordance with my understanding of Medicare's requirements for reasonable and necessary INPATIENT services [42 CFR 412.3e].: Yes
[2020-08-19] MEDS: AZTREONAM 1 GM in DEXTROSE 5%-WATER 50 ML IV SCH ×3 (02:40→18:14)
[2020-08-19] MEDS: DEXAMETHASONE SOD PHOSPHATE INJ 4 MG/1 ML VIAL IV SCH ×2 (05:26→18:13)
[2020-08-19] MEDS: GABAPENTIN 300 MG CAPSULE PO SCH ×3 (05:26→21:28)
[2020-08-19] MEDS: LEVOTHYROXINE SODIUM 0.088 MG TABLET PO SCH (05:26)
[2020-08-19] MEDS: TOPIRAMATE 25 MG TABLET PO SCH ×2 (05:27→18:13)
[2020-08-19] MEDS ORDERED: INFLUENZA QUAD (6MOS+) 2020-21 VAC 0.5 ML SYR IM ONE (08:00)
[2020-08-19] MEDS: OXYCODONE HCL IR 5 MG TABLET PO PRN ×3 (09:22→19:41)
[2020-08-19] MEDS: PANTOPRAZOLE SODIUM 40 MG TABLET.DR PO SCH (09:22)
[2020-08-19] MEDS: MULTIVITAMIN TABLET PO SCH (09:22)
[2020-08-19] MEDS: ENOXAPARIN SODIUM INJ 40 MG/0.4 ML DISP.SYRIN SUBCUT SCH (09:22)
[2020-08-19] MEDS: FLUTICASONE/UMECLIDIN/VILANTER 100-62.5-25 MCG/DOSE IH SCH (09:23)
[2020-08-19] MEDS: RINGERS SOLUTION,LACTATED 1,000 ML IV PRN ×2 (11:39→21:48)
[2020-08-19] MEDS: BENZTROPINE MESYLATE 1 MG TABLET PO SCH (18:13)
[2020-08-19] MEDS: LURASIDONE HCL 40 MG TABLET PO SCH (18:45)
--- NOTE | 2020-08-19 21:14 | PDOC PROGRESS REPORT ---
Subjective Progress Note for:: 08/19/20 Subjective:: Patient complaining of weakness Reason For Visit: ACUTE HYPOXEMIC RESPIRATORY FAILURE Physical Exam Vital Signs: Temp Pulse Resp BP Pulse Ox 99.1 F 92 16 92/57 L 95 08/19/20 19:09 08/19/20 19:09 08/19/20 19:09 08/19/20 19:09 08/19/20 19:09 Intake & Output 08/18/20 08/19/20 08/20/20 06:59 06:59 06:59 Intake Total 776 2890 1980 Output Total 500 700 375 Balance 276 2190 1605 Weight 55.7 kg 58.4 kg General appearance: PRESENT: no acute distress Eye exam: PRESENT: PERRLA Respiratory exam: PRESENT: clear to auscultation rona Cardiovascular exam: PRESENT: +S1, +S2 GI/Abdominal exam: PRESENT: soft Neurological exam: PRESENT: alert Results Laboratory Results: 08/18/20 04:55 08/18/20 04:55 08/15/20 08/15/20 08/15/20 15:20 22:34 22:34 Creatine Kinase 758 H CK-MB (CK-2) 1.89 3.47 Troponin I < 0.012 < 0.012 NT-Pro-B Natriuret Pep 463 H Impressions: Chest X-Ray 08/15/20 11:54 IMPRESSION: NO ACUTE RADIOGRAPHIC FINDING IN THE CHEST. Chest/Abdomen CTA 08/15/20 15:41 IMPRESSION: No emboli visualized in the main pulmonary arteries or the segmental branches.Diffuse ground-glass opacities throughout both lungs with some mild sparing of the majority of the left upper lobe. No pleural effusions.Multiple enlarged nodes similar to the prior study. Head CT 08/17/20 00:00 IMPRESSION: No acute intracranial findings are seen. Please note that MRI is more sensitive for the evaluation of early infarction, and may be performed if there is high clinical concern. Assessment & Plan - Diagnosis (1) Acute hypoxemic respiratory failure Is this a current diagnosis for this admission?: Yes Plan: Continue supplemental oxygen via nasal cannula (2) Hypokalemia Is this a current diagnosis for this admission?: Yes (3) Bilateral pneumonia Qualifiers: Pneumonia type: due to unspecified organism Lung location: unspecified part of lung Qualified Code(s): J18.9 - Pneumonia, unspecified organism Is this a current diagnosis for this admission?: Yes Plan: Continue antibiotic (4) Hemiplegia affecting right dominant side Qualifiers: Hemiplegia type: unspecified type Hemiplegia etiology: unspecified etiology Qualified Code(s): G81.91 - Hemiplegia, unspecified affecting right dominant side Is this a current diagnosis for this admission?: Yes - Time Time Spent with patient: 25-34 minutes Level of Care: IMCU Medications reviewed and adjusted accordingly: Yes Anticipated discharge: Home - Inpatient Certification Based on my medical assessment, after consideration of the patient's comorbidities, presenting symptoms, or acuity I expect that the services needed warrant INPATIENT care.: Yes I certify that my determination is in accordance with my understanding of Medicare's requirements for reasonable and necessary INPATIENT services [42 CFR 412.3e].: Yes
[2020-08-19] MEDS: LEVOFLOXACIN 750 MG/D5W RTU 750 MG/150 ML RTUPB IV SCH (21:28)
[2020-08-19] MEDS: SERTRALINE HCL 50 MG TABLET PO SCH (21:28)
[2020-08-19] MEDS: AMITRIPTYLINE HCL 50 MG TABLET PO SCH (21:28)
--- NOTE | 2020-08-19 22:20 | RADIOLOGY REPORT (SQ) ---
EXAM DESCRIPTION: XR CHEST 1 VIEW COMPLETED DATE/TME: 08/19/2020 00:00 CLINICAL HISTORY: 50 years, Female, pneumonia COMPARISON: Prior study from 08/15/2020 NUMBER OF VIEWS: 1 TECHNIQUE: Single frontal view of the chest was obtained portably LIMITATIONS: None. FINDINGS: Cardiac and mediastinal contours are stable. Patchy bilateral midlung zone airspace disease is noted, new from the previous exam. No pneumothorax or large pleural effusion. IMPRESSION: Patchy bilateral midlung zone airspace disease. Consider multifocal pneumonia. copyright 2010 [employer]- All Rights Reserved
[2020-08-20] MEDS: OXYCODONE HCL IR 5 MG TABLET PO PRN ×6 (00:17→22:47)
[2020-08-20] MEDS: AZTREONAM 1 GM in DEXTROSE 5%-WATER 50 ML IV SCH ×3 (01:34→19:00)
[2020-08-20] MEDS: DEXAMETHASONE SOD PHOSPHATE INJ 4 MG/1 ML VIAL IV SCH ×2 (05:35→18:10)
[2020-08-20] MEDS: TOPIRAMATE 25 MG TABLET PO SCH ×2 (05:36→18:09)
[2020-08-20] MEDS: GABAPENTIN 300 MG CAPSULE PO SCH ×3 (05:36→22:48)
[2020-08-20] MEDS: LEVOTHYROXINE SODIUM 0.088 MG TABLET PO SCH (05:36)
[2020-08-20 06:45] LABS: APPEARANCE,URINE CLEAR; BILIRUBIN,URINE NEGATIVE (NEGATIVE); COLOR,URINE YELLOW; GLUCOSE, URINE NEGATIVE (NEGATIVE); KETONES,URINE NEGATIVE (NEGATIVE); LEUKOCYTE ESTERASE,URINE SMALL (NEGATIVE); NITRITE,URINE NEGATIVE (NEGATIVE); PROTEIN,URINE NEGATIVE (NEGATIVE); URINE SPECIFIC GRAVITY 1.011; UROBILINOGEN,URINE NEGATIVE mg/dL (<2.0)
[2020-08-20] MEDS: ENOXAPARIN SODIUM INJ 40 MG/0.4 ML DISP.SYRIN SUBCUT SCH (10:12)
[2020-08-20] MEDS: PANTOPRAZOLE SODIUM 40 MG TABLET.DR PO SCH (10:12)
[2020-08-20] MEDS: MULTIVITAMIN TABLET PO SCH (10:12)
[2020-08-20] MEDS: FLUTICASONE/UMECLIDIN/VILANTER 100-62.5-25 MCG/DOSE IH SCH (11:53)
--- NOTE | 2020-08-20 14:58 | PDOC PROGRESS REPORT ---
Subjective Progress Note for:: 08/20/20 Subjective:: She has multifocal pneumonia, episode of vomiting today Reason For Visit: ACUTE HYPOXEMIC RESPIRATORY FAILURE Physical Exam Vital Signs: Temp Pulse Resp BP Pulse Ox 98.9 F 83 16 112/69 96 08/20/20 12:05 08/20/20 12:05 08/20/20 12:05 08/20/20 12:05 08/20/20 12:05 Intake & Output 08/19/20 08/20/20 08/21/20 06:59 06:59 06:59 Intake Total 2890 3450 Output Total 700 375 Balance 2190 3075 Weight 58.4 kg 60.2 kg General appearance: PRESENT: no acute distress Eye exam: PRESENT: PERRLA Respiratory exam: PRESENT: clear to auscultation rona Cardiovascular exam: PRESENT: +S1, +S2 GI/Abdominal exam: PRESENT: soft Neurological exam: PRESENT: alert Results Laboratory Results: 08/18/20 04:55 08/18/20 04:55 08/20/20 06:00 Urine Color YELLOW Urine Appearance CLEAR Urine pH 7.0 Ur Specific [place] 1.011 Urine Protein NEGATIVE Urine Glucose (UA) NEGATIVE Urine Ketones NEGATIVE Urine Blood NEGATIVE Urine Nitrite NEGATIVE Ur Leukocyte Esterase SMALL H Urine WBC (Auto) 6 Urine RBC (Auto) 5 08/15/20 08/15/20 08/15/20 15:20 22:34 22:34 Creatine Kinase 758 H CK-MB (CK-2) 1.89 3.47 Troponin I < 0.012 < 0.012 NT-Pro-B Natriuret Pep 463 H Impressions: Chest/Abdomen CTA 08/15/20 15:41 IMPRESSION: No emboli visualized in the main pulmonary arteries or the segmental branches.Diffuse ground-glass opacities throughout both lungs with some mild sparing of the majority of the left upper lobe. No pleural effusions.Multiple enlarged nodes similar to the prior study. Head CT 08/17/20 00:00 IMPRESSION: No acute intracranial findings are seen. Please note that MRI is more sensitive for the evaluation of early infarction, and may be performed if there is high clinical concern. Chest X-Ray 08/19/20 00:00 IMPRESSION: Patchy bilateral midlung zone airspace disease. Consider multifocal pneumonia. copyright 2010 [email or web address]- All Rights Reserved Assessment & Plan - Diagnosis (1) Acute hypoxemic respiratory failure Is this a current diagnosis for this admission?: Yes Plan: Continue supplemental oxygen via nasal cannula (2) Hypokalemia Is this a current diagnosis for this admission?: Yes (3) Bilateral pneumonia Qualifiers: Pneumonia type: due to unspecified organism Lung location: unspecified part of lung Qualified Code(s): J18.9 - Pneumonia, unspecified organism Is this a current diagnosis for this admission?: Yes Plan: Continue antibiotic (4) Hemiplegia affecting right dominant side Qualifiers: Hemiplegia type: unspecified type Hemiplegia etiology: unspecified etiology Qualified Code(s): G81.91 - Hemiplegia, unspecified affecting right dominant side Is this a current diagnosis for this admission?: Yes - Time Time Spent with patient: 35 or more minutes Medications reviewed and adjusted accordingly: Yes Anticipated discharge: Home Anticipated DC Timeframe: within 72 hours
[2020-08-20] MEDS: BENZTROPINE MESYLATE 1 MG TABLET PO SCH (18:10)
[2020-08-20] MEDS: LURASIDONE HCL 40 MG TABLET PO SCH (19:00)
[2020-08-20] MEDS: RINGERS SOLUTION,LACTATED 1,000 ML IV PRN (19:59)
[2020-08-20] MEDS: AMITRIPTYLINE HCL 50 MG TABLET PO SCH (22:48)
[2020-08-20] MEDS: SERTRALINE HCL 50 MG TABLET PO SCH (22:48)
[2020-08-20] MEDS: LEVOFLOXACIN 750 MG/D5W RTU 750 MG/150 ML RTUPB IV SCH (22:49)
[2020-08-21] MEDS ORDERED: AZTREONAM INJ 1 GM VIAL ONE (02:08)
[2020-08-21] MEDS: AZTREONAM 1 GM in DEXTROSE 5%-WATER 50 ML IV SCH ×3 (02:30→18:17)
[2020-08-21] MEDS: OXYCODONE HCL IR 5 MG TABLET PO PRN ×5 (03:03→22:44)
[2020-08-21] MEDS: GABAPENTIN 300 MG CAPSULE PO SCH ×3 (05:43→22:18)
[2020-08-21] MEDS: TOPIRAMATE 25 MG TABLET PO SCH ×2 (05:43→18:17)
[2020-08-21] MEDS: DEXAMETHASONE SOD PHOSPHATE INJ 4 MG/1 ML VIAL IV SCH ×2 (05:43→18:17)
[2020-08-21] MEDS: LEVOTHYROXINE SODIUM 0.088 MG TABLET PO SCH (05:43)
[2020-08-21] MEDS: ENOXAPARIN SODIUM INJ 40 MG/0.4 ML DISP.SYRIN SUBCUT SCH (11:00)
[2020-08-21] MEDS: PANTOPRAZOLE SODIUM 40 MG TABLET.DR PO SCH (11:00)
[2020-08-21] MEDS: MULTIVITAMIN TABLET PO SCH (11:00)
[2020-08-21] MEDS: RINGERS SOLUTION,LACTATED 1,000 ML IV PRN ×2 (11:12→22:18)
--- NOTE | 2020-08-21 12:33 | PDOC PROGRESS REPORT ---
Subjective Progress Note for:: 08/21/20 Subjective:: Patient seen by the bedside, the main issue is the generalized weakness with loss of strength most likely related to the acute disease process. She will continue IV antibiotic for probable aspiration pneumonia, chest x-ray will be requested today, consultation from physical therapy, encourage out of bed to chair, follow labs Reason For Visit: ACUTE HYPOXEMIC RESPIRATORY FAILURE Physical Exam Vital Signs: Temp Pulse Resp BP Pulse Ox 99.3 F 83 18 126/80 H 98 08/21/20 07:55 08/21/20 07:55 08/21/20 07:55 08/21/20 07:55 08/21/20 07:55 Intake & Output 08/20/20 08/21/20 08/22/20 06:59 06:59 06:59 Intake Total 3450 1880 1150 Output Total 375 Balance 3075 1880 1150 Weight 60.2 kg 62.3 kg General appearance: PRESENT: no acute distress, well-developed, well-nourished Head exam: PRESENT: atraumatic, normocephalic Eye exam: PRESENT: conjunctiva pink, EOMI, PERRLA Ear exam: PRESENT: normal external ear exam Mouth exam: PRESENT: moist, tongue midline Neck exam: PRESENT: full ROM Respiratory exam: PRESENT: clear to auscultation rona Cardiovascular exam: PRESENT: RRR, +S1, +S2 Vascular exam: PRESENT: normal capillary refill GI/Abdominal exam: PRESENT: normal bowel sounds, soft Rectal exam: PRESENT: deferred Neurological exam: PRESENT: alert, CN II-XII grossly intact Psychiatric exam: PRESENT: appropriate affect, normal mood Skin exam: PRESENT: dry, intact, warm Results Laboratory Results: 08/18/20 04:55 08/18/20 04:55 08/15/20 20:15 Blood Blood Culture - Final NO GROWTH IN 5 DAYS 08/15/20 17:11 Blood Blood Culture - Final NO GROWTH IN 5 DAYS 08/15/20 08/15/20 08/15/20 15:20 22:34 22:34 Creatine Kinase 758 H CK-MB (CK-2) 1.89 3.47 Troponin I < 0.012 < 0.012 NT-Pro-B Natriuret Pep 463 H Impressions: Chest/Abdomen CTA 08/15/20 15:41 IMPRESSION: No emboli visualized in the main pulmonary arteries or the s egmental branches.Diffuse ground-glass opacities throughout both lungs with some mild sparing of the majority of the left upper lobe. No pleural effusions.Multiple enlarged nodes similar to the prior study. Head CT 08/17/20 00:00 IMPRESSION: No acute intracranial findings are seen. Please note that MRI is more sensitive for the evaluation of early infarction, and may be performed if there is high clinical concern. Chest X-Ray 08/19/20 00:00 IMPRESSION: Patchy bilateral midlung zone airspace disease. Consider multifocal pneumonia. copyright 2010 [employer]- All Rights Reserved Assessment & Plan - Diagnosis (1) Acute hypoxemic respiratory failure Is this a current diagnosis for this admission?: Yes Plan: Patient on supplemental oxygen via nasal cannula (2) Hypokalemia Is this a current diagnosis for this admission?: Yes Plan: Replenished (3) Bilateral pneumonia Qualifiers: Pneumonia type: due to unspecified organism Lung location: unspecified part of lung Qualified Code(s): J18.9 - Pneumonia, unspecified organism Is this a current diagnosis for this admission?: Yes Plan: Follow chest x-ray (4) Hemiplegia affecting right dominant side Qualifiers: Hemiplegia type: unspecified type Hemiplegia etiology: unspecified etiology Qualified Code(s): G81.91 - Hemiplegia, unspecified affecting right dominant side Is this a current diagnosis for this admission?: Yes (5) Generalized weakness Is this a current diagnosis for this admission?: Yes Plan: Out of bed to chair, consult physical therapy for PT. - Time Time Spent with patient: 35 or more minutes Level of Care: IMCU Medications reviewed and adjusted accordingly: Yes Anticipated discharge: Home Anticipated DC Timeframe: Other
[2020-08-21] MEDS: FLUTICASONE/UMECLIDIN/VILANTER 100-62.5-25 MCG/DOSE IH SCH (13:15)
[2020-08-21 14:13] LABS: HEMATOCRIT 28.1 % (36.0-47.0); HEMOGLOBIN 9.4 g/dL (12.0-15.5); MEAN CORPUSCULAR HEMOGLOBIN 32.2 pg (27.0-33.4); MEAN CORPUSCULAR HGB CONC 33.4 g/dL (32.0-36.0); MEAN CORPUSCULAR VOLUME 96 fl (80-97); PLATELET COUNT 273 10^3/uL (150-450); RED BLOOD COUNT 2.91 10^6/uL (3.72-5.28); WHITE BLOOD COUNT 15.7 10^3/uL (4.0-10.5)
[2020-08-21 14:29] LABS: ALBUMIN 2.2 g/dL (3.5-5.0); ALKALINE PHOSPHATASE 144 U/L (38-126); ANION GAP 6 (5-19); ASPARTATE AMINO TRANSFERASE 64 U/L (14-36); BILIRUBIN,DIRECT 0.2 mg/dL (0.0-0.4); BILIRUBIN,TOTAL 0.2 mg/dL (0.2-1.3); BLOOD UREA NITROGEN 7 mg/dL (7-20); CALCIUM 7.7 mg/dL (8.4-10.2); CARBON DIOXIDE 20 mmol/L (22-30); CHLORIDE 109 mmol/L (98-107); GLUCOSE 107 mg/dL (75-110); POTASSIUM 3.7 mmol/L (3.6-5.0); TOTAL PROTEIN 4.5 g/dL (6.3-8.2)
[2020-08-21 14:37] LABS: ABSOLUTE LYMPHOCYTES# (MANUAL) 0.9 10^3/uL (0.5-4.7); ABSOLUTE MONOCYTES # (MANUAL) 0.2 10^3/uL (0.1-1.4); BAND NEUTROPHILS % (MANUAL) 1 % (3-5); BASOPHILS % (MANUAL) 0 % (0-2); EOSINOPHILS % (MANUAL) 0 % (0-6); LYMPHOCYTES % (MANUAL) 6 % (13-45); MONOCYTES % (MANUAL) 1 % (3-13); NUCLEATED RED BLOOD CELLS 1 /100 WBC (0); SEGMENTED NEUTROPHILS % (MAN) 92 % (42-78); TOTAL CELLS COUNTED 100
[2020-08-21 14:38] LABS: ANISOCYTOSIS 1+; PLATELET COMMENT ADEQUATE; POLYCHROMASIA SLIGHT
[2020-08-21] MEDS: LURASIDONE HCL 40 MG TABLET PO SCH (18:17)
[2020-08-21] MEDS: BENZTROPINE MESYLATE 1 MG TABLET PO SCH (18:17)
[2020-08-21] MEDS: SERTRALINE HCL 50 MG TABLET PO SCH (22:17)
[2020-08-21] MEDS: AMITRIPTYLINE HCL 50 MG TABLET PO SCH (22:18)
[2020-08-21] MEDS: LEVOFLOXACIN 750 MG/D5W RTU 750 MG/150 ML RTUPB IV SCH (22:18)
[2020-08-22] MEDS: AZTREONAM 1 GM in DEXTROSE 5%-WATER 50 ML IV SCH ×3 (01:50→17:22)
[2020-08-22] MEDS: OXYCODONE HCL IR 5 MG TABLET PO PRN ×6 (02:47→23:23)
[2020-08-22] MEDS: LEVOTHYROXINE SODIUM 0.088 MG TABLET PO SCH (06:13)
[2020-08-22] MEDS: DEXAMETHASONE SOD PHOSPHATE INJ 4 MG/1 ML VIAL IV SCH ×2 (06:13→17:22)
[2020-08-22] MEDS: GABAPENTIN 300 MG CAPSULE PO SCH ×3 (06:13→21:11)
[2020-08-22] MEDS: TOPIRAMATE 25 MG TABLET PO SCH ×2 (06:13→17:22)
[2020-08-22] MEDS: ENOXAPARIN SODIUM INJ 40 MG/0.4 ML DISP.SYRIN SUBCUT SCH (10:46)
[2020-08-22] MEDS: MULTIVITAMIN TABLET PO SCH (10:47)
[2020-08-22] MEDS: PANTOPRAZOLE SODIUM 40 MG TABLET.DR PO SCH (10:47)
[2020-08-22] MEDS: RINGERS SOLUTION,LACTATED 1,000 ML IV PRN ×2 (12:37→23:15)
[2020-08-22] MEDS: FLUTICASONE/UMECLIDIN/VILANTER 100-62.5-25 MCG/DOSE IH SCH (16:21)
[2020-08-22] MEDS: BENZTROPINE MESYLATE 1 MG TABLET PO SCH (17:22)
[2020-08-22] MEDS: LURASIDONE HCL 40 MG TABLET PO SCH (17:22)
--- NOTE | 2020-08-22 18:37 | PDOC PROGRESS REPORT ---
Subjective Progress Note for:: 08/22/20 Subjective:: Patient seen by the bedside, the main issue is the generalized weakness with loss of strength most likely related to the acute disease process. She will continue IV antibiotic for probable aspiration pneumonia, consultation from physical therapy, encourage out of bed to chair, follow labs Reason For Visit: ACUTE HYPOXEMIC RESPIRATORY FAILURE Physical Exam Vital Signs: Temp Pulse Resp BP Pulse Ox 98.1 F 78 14 105/69 98 08/22/20 15:41 08/22/20 15:41 08/22/20 15:41 08/22/20 15:41 08/22/20 15:41 Intake & Output 08/21/20 08/22/20 08/23/20 06:59 06:59 06:59 Intake Total 1880 3240 2160 Output Total 400 Balance 1880 3240 1760 Weight 62.3 kg 72.6 kg General appearance: PRESENT: no acute distress Eye exam: PRESENT: PERRLA Respiratory exam: PRESENT: clear to auscultation rona Cardiovascular exam: PRESENT: +S1, +S2 GI/Abdominal exam: PRESENT: soft Neurological exam: PRESENT: alert Results Laboratory Results: 08/21/20 13:20 08/21/20 13:20 08/15/20 08/15/20 08/15/20 15:20 22:34 22:34 Creatine Kinase 758 H CK-MB (CK-2) 1.89 3.47 Troponin I < 0.012 < 0.012 NT-Pro-B Natriuret Pep 463 H Impressions: Chest/Abdomen CTA 08/15/20 15:41 IMPRESSION: No emboli visualized in the main pulmonary arteries or the segmental branches.Diffuse ground-glass opacities throughout both lungs with s ome mild sparing of the majority of the left upper lobe. No pleural effusions.Multiple enlarged nodes similar to the prior study. Head CT 08/17/20 00:00 IMPRESSION: No acute intracranial findings are seen. Please note that MRI is more sensitive for the evaluation of early infarction, and may be performed if there is high clinical concern. Chest X-Ray 08/19/20 00:00 IMPRESSION: Patchy bilateral midlung zone airspace disease. Consider multifocal pneumonia. copyright 2010 [employer]- All Rights Reserved Assessment & Plan - Diagnosis (1) Acute hypoxemic respiratory failure Is this a current diagnosis for this admission?: Yes Plan: Patient on supplemental oxygen via nasal cannula (2) Hypokalemia Is this a current diagnosis for this admission?: Yes Plan: Replenished (3) Bilateral pneumonia Qualifiers: Pneumonia type: due to unspecified organism Lung location: unspecified part of lung Qualified Code(s): J18.9 - Pneumonia, unspecified organism Is this a current diagnosis for this admission?: Yes Plan: Follow chest x-ray (4) Hemiplegia affecting right dominant side Qualifiers: Hemiplegia type: unspecified type Hemiplegia etiology: unspecified etiology Qualified Code(s): G81.91 - Hemiplegia, unspecified affecting right dominant side Is this a current diagnosis for this admission?: Yes (5) Generalized weakness Is this a current diagnosis for this admission?: Yes Plan: Out of bed to chair, consult physical therapy for PT. - Time Time Spent with patient: 25-34 minutes Level of Care: IMCU Medications reviewed and adjusted accordingly: Yes
[2020-08-22] MEDS: SERTRALINE HCL 50 MG TABLET PO SCH (21:11)
[2020-08-22] MEDS: AMITRIPTYLINE HCL 50 MG TABLET PO SCH (21:11)
[2020-08-22] MEDS: LEVOFLOXACIN 750 MG/D5W RTU 750 MG/150 ML RTUPB IV SCH (21:12)
--- NOTE | 2020-08-22 21:21 | RADIOLOGY REPORT (SQ) ---
EXAM DESCRIPTION: XR CHEST 1 VIEW COMPLETED DATE/TME: 08/22/2020 00:00 CLINICAL HISTORY: 50 years, Female, PNEUMONIA EXAM DESCRIPTION: CLINICAL HISTORY: PNEUMONIA COMPARISON: 08/19/2020 FINDINGS: Single view of the chest is submitted. Poorly defined consolidation is again seen in the left lung, worsened at the left upper lung and improved at the left lung base and improved in the right lung.. Cardiac silhouette is unchanged. No significant pleural effusion. Lung volumes remain low. IMPRESSION: Worsening left upper lung consolidation with improved aeration at the left lung base and in the right lung.
[2020-08-23] MEDS: RINGERS SOLUTION,LACTATED 1,000 ML IV PRN ×2 (02:06→19:55)
[2020-08-23] MEDS: OXYCODONE HCL IR 5 MG TABLET PO PRN ×5 (03:34→22:07)
[2020-08-23] MEDS: GABAPENTIN 300 MG CAPSULE PO SCH ×3 (05:05→22:07)
[2020-08-23] MEDS: TOPIRAMATE 25 MG TABLET PO SCH ×2 (05:05→18:09)
[2020-08-23] MEDS: LEVOTHYROXINE SODIUM 0.088 MG TABLET PO SCH (05:06)
[2020-08-23] MEDS: FLUTICASONE/UMECLIDIN/VILANTER 100-62.5-25 MCG/DOSE IH SCH (09:52)
[2020-08-23] MEDS: PANTOPRAZOLE SODIUM 40 MG TABLET.DR PO SCH (09:52)
[2020-08-23] MEDS: MULTIVITAMIN TABLET PO SCH (09:52)
[2020-08-23] MEDS: ENOXAPARIN SODIUM INJ 40 MG/0.4 ML DISP.SYRIN SUBCUT SCH (09:53)
[2020-08-23] MEDS: DEXAMETHASONE SOD PHOSPHATE INJ 4 MG/1 ML VIAL IV SCH (10:02)
[2020-08-23] MEDS ORDERED: FUROSEMIDE INJ/PF 40 MG/4 ML SDV IV ONE (13:28)
[2020-08-23] MEDS: MIDODRINE HCL 5 MG TABLET PO SCH ×2 (15:02→17:56)
[2020-08-23 16:01] LABS: HEMOGLOBIN 9.9 g/dL (12.0-15.5); MEAN CORPUSCULAR HEMOGLOBIN 31.6 pg (27.0-33.4); MEAN CORPUSCULAR HGB CONC 32.9 g/dL (32.0-36.0); MEAN CORPUSCULAR VOLUME 96 fl (80-97); PLATELET COUNT 324 10^3/uL (150-450); RED BLOOD COUNT 3.12 10^6/uL (3.72-5.28); RED CELL DISTRIBUTION WIDTH 15.5 % (11.5-14.0); WHITE BLOOD COUNT 14.4 10^3/uL (4.0-10.5)
[2020-08-23 16:19] LABS: ABSOLUTE LYMPHOCYTES# (MANUAL) 1.2 10^3/uL (0.5-4.7); ABSOLUTE MONOCYTES # (MANUAL) 0.1 10^3/uL (0.1-1.4); ANISOCYTOSIS SLIGHT; BASOPHILS % (MANUAL) 0 % (0-2); EOSINOPHILS % (MANUAL) 0 % (0-6); LYMPHOCYTES % (MANUAL) 8 % (13-45); METAMYELOCYTES % (MANUAL) 2 % (0-1); MONOCYTES % (MANUAL) 1 % (3-13); PLATELET COMMENT ADEQUATE; SEGMENTED NEUTROPHILS % (MAN) 89 % (42-78); TOTAL CELLS COUNTED 100
[2020-08-23 16:26] LABS: ALBUMIN 2.4 g/dL (3.5-5.0); ALKALINE PHOSPHATASE 123 U/L (38-126); ANION GAP 8 (5-19); ASPARTATE AMINO TRANSFERASE 43 U/L (14-36); BILIRUBIN,DIRECT 0.2 mg/dL (0.0-0.4); BILIRUBIN,TOTAL 0.2 mg/dL (0.2-1.3); BLOOD UREA NITROGEN 9 mg/dL (7-20); CALCIUM 8.4 mg/dL (8.4-10.2); CARBON DIOXIDE 22 mmol/L (22-30); CHLORIDE 107 mmol/L (98-107); GLUCOSE 109 mg/dL (75-110); POTASSIUM 3.8 mmol/L (3.6-5.0); TOTAL PROTEIN 4.8 g/dL (6.3-8.2)
[2020-08-23] MEDS: BENZTROPINE MESYLATE 1 MG TABLET PO SCH (17:56)
[2020-08-23] MEDS: LURASIDONE HCL 40 MG TABLET PO SCH (18:11)
--- NOTE | 2020-08-23 21:08 | PDOC PROGRESS REPORT ---
Subjective Progress Note for:: 08/23/20 Subjective:: Patient seen by the bedside repeat chest x-ray showed improvement but there is still area of consolidation the left upper lobe. She is retaining fluid Reason For Visit: ACUTE HYPOXEMIC RESPIRATORY FAILURE Physical Exam Vital Signs: Temp Pulse Resp BP Pulse Ox 98.5 F 98 16 102/67 96 08/23/20 16:07 08/23/20 19:00 08/23/20 16:07 08/23/20 16:07 08/23/20 16:07 Intake & Output 08/22/20 08/23/20 08/24/20 06:59 06:59 06:59 Intake Total 3240 3682 1240 Output Total 400 Balance 3240 3282 1240 Weight 72.6 kg 64.4 kg General appearance: PRESENT: no acute distress Eye exam: PRESENT: PERRLA Respiratory exam: PRESENT: clear to auscultation rona Cardiovascular exam: PRESENT: +S1, +S2 GI/Abdominal exam: PRESENT: soft Neurological exam: PRESENT: alert Results Laboratory Results: 08/23/20 15:45 08/23/20 15:45 08/23/20 08/23/20 15:45 15:45 WBC 14.4 H RBC 3.12 L Hgb 9.9 L Hct 30.0 L MCV 96 MCH 31.6 MCHC 32.9 RDW 15.5 H Plt Count 324 Seg Neutrophils % Not Reportable Sodium 137.1 Potassium 3.8 Chloride 107 Carbon Dioxide 22 Anion Gap 8 BUN 9 Creatinine 0.48 L Est GFR ( Amer) > 60 Glucose 109 Calcium 8.4 Total Bilirubin 0.2 AST 43 H Alkaline Phosphatase 123 Total Protein 4.8 L Albumin 2.4 L 08/15/20 08/15/20 08/15/20 15:20 22:34 22:34 Creatine Kinase 758 H CK-MB (CK-2) 1.89 3.47 Troponin I < 0.012 < 0.012 NT-Pro-B Natriuret Pep 463 H Impressions: Chest/Abdomen CTA 08/15/20 15:41 IMPRESSION: No emboli visualized in the main pulmonary arteries or the segmental branches.Diffuse ground-glass opacities throughout both lungs with some mild sparing of the majority of the left upper lobe. No pleural effusions.Multiple enlarged nodes similar to the prior study. Head CT 08/17/20 00:00 IMPRESSION: No acute intracranial findings are seen. Please note that MRI is more sensitive for the evaluation of early infarction, and may be performed if there is high clinical concern. Chest X-Ray 08/22/20 00:00 IMPRESSION: Worsening left upper lung consolidation with improved aeration at the left lung base and in the right lung. Assessment & Plan - Diagnosis (1) Acute hypoxemic respiratory failure Is this a current diagnosis for this admission?: Yes Plan: Patient on supplemental oxygen via nasal cannula (2) Hypokalemia Is this a current diagnosis for this admission?: Yes Plan: Replenished (3) Bilateral pneumonia Qualifiers: Pneumonia type: due to unspecified organism Lung location: unspecified part of lung Qualified Code(s): J18.9 - Pneumonia, unspecified organism Is this a current diagnosis for this admission?: Yes Plan: Follow chest x-ray (4) Hemiplegia affecting right dominant side Qualifiers: Hemiplegia type: unspecified type Hemiplegia etiology: unspecified etiology Qualified Code(s): G81.91 - Hemiplegia, unspecified affecting right dominant side Is this a current diagnosis for this admission?: Yes (5) Generalized weakness Is this a current diagnosis for this admission?: Yes Plan: Out of bed to chair, consult physical therapy for PT. - Time Time Spent with patient: 25-34 minutes Level of Care: IMCU Medications reviewed and adjusted accordingly: Yes Anticipated discharge: Home
--- NOTE | 2020-08-23 21:12 | PDOC PROGRESS REPORT ---
Subjective Progress Note for:: 08/23/20 Subjective:: Patient seen by the bedside repeat chest x-ray showed improvement but there is still area of consolidation the left upper lobe. She is retaining fluid Reason For Visit: ACUTE HYPOXEMIC RESPIRATORY FAILURE Physical Exam Vital Signs: Temp Pulse Resp BP Pulse Ox 98.5 F 98 16 102/67 96 08/23/20 16:07 08/23/20 19:00 08/23/20 16:07 08/23/20 16:07 08/23/20 16:07 Intake & Output 08/22/20 08/23/20 08/24/20 06:59 06:59 06:59 Intake Total 3240 3682 1240 Output Total 400 Balance 3240 3282 1240 Weight 72.6 kg 64.4 kg Results Laboratory Results: 08/23/20 15:45 08/23/20 15:45 08/23/20 08/23/20 15:45 15:45 WBC 14.4 H RBC 3.12 L Hgb 9.9 L Hct 30.0 L MCV 96 MCH 31.6 MCHC 32.9 RDW 15.5 H Plt Count 324 Seg Neutrophils % Not Reportable Sodium 137.1 Potassium 3.8 Chloride 107 Carbon Dioxide 22 Anion Gap 8 BUN 9 Creatinine 0.48 L Est GFR ( Amer) > 60 Glucose 109 Calcium 8.4 Total Bilirubin 0.2 AST 43 H Alkaline Phosphatase 123 Total Protein 4.8 L Albumin 2.4 L 08/15/20 08/15/20 08/15/20 15:20 22:34 22:34 Creatine Kinase 758 H CK-MB (CK-2) 1.89 3.47 Troponin I < 0.012 < 0.012 NT-Pro-B Natriuret Pep 463 H Impressions: Chest/Abdomen CTA 08/15/20 15:41 IMPRESSION: No emboli visualized in the main pulmonary arteries or the segmental branches.Diffuse ground-glass opacities throughout both lungs with some mild sparing of the majority of the left upper lobe. No pleural effusions.Multiple enlarged nodes similar to the prior study. Head CT 08/17/20 00:00 IMPRESSION: No acute intracranial findings are seen. Please note that MRI is more sensitive for the evaluation of early infarction, and may be performed if there is high clinical concern. Chest X-Ray 08/22/20 00:00 IMPRESSION: Worsening left upper lung consolidation with improved aeration at the left lung base and in the right lung. Assessment & Plan - Diagnosis (1) Acute hypoxemic respiratory failure Is this a current diagnosis for this admission?: Yes Plan: Patient on supplemental oxygen via nasal cannula (2) Hypokalemia Is this a current diagnosis for this admission?: Yes Plan: Replenished (3) Bilateral pneumonia Qualifiers: Pneumonia type: due to unspecified organism Lung location: unspecified part of lung Qualified Code(s): J18.9 - Pneumonia, unspecified organism Is this a current diagnosis for this admission?: Yes Plan: Follow chest x-ray (4) Hemiplegia affecting right dominant side Qualifiers: Hemiplegia type: unspecified type Hemiplegia etiology: unspecified etiology Qualified Code(s): G81.91 - Hemiplegia, unspecified affecting right dominant side Is this a current diagnosis for this admission?: Yes (5) Generalized weakness Is this a current diagnosis for this admission?: Yes Plan: Out of bed to chair, consult physical therapy for PT. - Time Time Spent with patient: 25-34 minutes Level of Care: IMCU Medications reviewed and adjusted accordingly: Yes Anticipated discharge: Home
[2020-08-23] MEDS: SERTRALINE HCL 50 MG TABLET PO SCH (22:07)
[2020-08-24] MEDS: OXYCODONE HCL IR 5 MG TABLET PO PRN ×5 (02:12→22:10)
[2020-08-24] MEDS: GABAPENTIN 300 MG CAPSULE PO SCH ×3 (05:34→22:09)
[2020-08-24] MEDS: TOPIRAMATE 25 MG TABLET PO SCH ×2 (05:35→17:33)
[2020-08-24] MEDS: LEVOTHYROXINE SODIUM 0.088 MG TABLET PO SCH (05:35)
[2020-08-24] MEDS: DEXAMETHASONE SOD PHOSPHATE INJ 4 MG/1 ML VIAL IV SCH (09:22)
[2020-08-24] MEDS: MIDODRINE HCL 5 MG TABLET PO SCH ×3 (09:22→17:32)
[2020-08-24] MEDS: MULTIVITAMIN TABLET PO SCH (09:23)
[2020-08-24] MEDS: PANTOPRAZOLE SODIUM 40 MG TABLET.DR PO SCH (09:23)
[2020-08-24] MEDS: ENOXAPARIN SODIUM INJ 40 MG/0.4 ML DISP.SYRIN SUBCUT SCH (09:23)
[2020-08-24] MEDS: FLUTICASONE/UMECLIDIN/VILANTER 100-62.5-25 MCG/DOSE IH SCH (09:25)
[2020-08-24] MEDS: RINGERS SOLUTION,LACTATED 1,000 ML IV PRN (11:57)
[2020-08-24] MEDS: BENZTROPINE MESYLATE 1 MG TABLET PO SCH (17:32)
[2020-08-24] MEDS: LURASIDONE HCL 40 MG TABLET PO SCH (17:34)
[2020-08-24] MEDS: ONDANSETRON 4 MG TAB.RAPDIS PO PRN (17:57)
[2020-08-24] MEDS ORDERED: ALPRAZOLAM 0.25 MG TABLET PO PRN (18:05)
--- NOTE | 2020-08-24 19:57 | PDOC PROGRESS REPORT ---
Subjective Progress Note for:: 08/24/20 Subjective:: Patient is alert she was seen by bedside working with physical therapy, rehabilitation recommended by PT Reason For Visit: ACUTE HYPOXEMIC RESPIRATORY FAILURE Physical Exam Vital Signs: Temp Pulse Resp BP Pulse Ox 98.7 F 81 18 110/63 98 08/24/20 15:17 08/24/20 15:17 08/24/20 15:17 08/24/20 15:17 08/24/20 15:17 Intake & Output 08/23/20 08/24/20 08/25/20 06:59 06:59 06:59 Intake Total 3682 1740 1000 Output Total 400 350 Balance 3282 1390 1000 Weight 64.4 kg 63.8 kg 63.8 kg General appearance: PRESENT: no acute distress Eye exam: PRESENT: PERRLA Respiratory exam: PRESENT: clear to auscultation rona Cardiovascular exam: PRESENT: +S1, +S2 GI/Abdominal exam: PRESENT: soft Results Laboratory Results: 08/23/20 15:45 08/23/20 15:45 08/15/20 08/15/20 08/15/20 15:20 22:34 22:34 Creatine Kinase 758 H CK-MB (CK-2) 1.89 3.47 Troponin I < 0.012 < 0.012 NT-Pro-B Natriuret Pep 463 H Impressions: Chest/Abdomen CTA 08/15/20 15:41 IMPRESSION: No emboli visualized in the main pulmonary arteries or the segmental branches.Diffuse ground-glass opacities throughout both lungs with some mild sparing of the majority of the left upper lobe. No pleural effusions.Multiple enlarged nodes similar to the prior study. Head CT 08/17/20 00:00 IMPRESSION: No acute intracranial findings are seen. Please note that MRI is more sensitive for the evaluation of early infarction, and may be performed if there is high clinical concern. Chest X-Ray 08/22/20 00:00 IMPRESSION: Worsening left upper lung consolidation with improved aeration at the left lung base and in the right lung. Assessment & Plan - Diagnosis (1) Acute hypoxemic respiratory failure Is this a current diagnosis for this admission?: Yes Plan: Patient on supplemental oxygen via nasal cannula (2) Hypokalemia Is this a current diagnosis for this admission?: Yes Plan: Replenished (3) Bilateral pneumonia Qualifiers: Pneumonia type: due to unspecified organism Lung location: unspecified part of lung Qualified Code(s): J18.9 - Pneumonia, unspecified organism Is this a current diagnosis for this admission?: Yes Plan: Follow chest x-ray (4) Hemiplegia affecting right dominant side Qualifiers: Hemiplegia type: unspecified type Hemiplegia etiology: unspecified etiology Qualified Code(s): G81.91 - Hemiplegia, unspecified affecting right dominant side Is this a current diagnosis for this admission?: Yes (5) Generalized weakness Is this a current diagnosis for this admission?: Yes Plan: Out of bed to chair, consult physical therapy for PT. - Time Time Spent with patient: 25-34 minutes Level of Care: IMCU Medications reviewed and adjusted accordingly: Yes Anticipated discharge: Home Anticipated DC Timeframe: Other
[2020-08-24] MEDS: SERTRALINE HCL 50 MG TABLET PO SCH (22:09)
[2020-08-24] MEDS: ZOLPIDEM TARTRATE 5 MG TABLET PO SCH (22:09)
[2020-08-25] MEDS: RINGERS SOLUTION,LACTATED 1,000 ML IV PRN ×2 (02:21→15:04)
[2020-08-25] MEDS: OXYCODONE HCL IR 5 MG TABLET PO PRN ×5 (02:22→21:14)
[2020-08-25] MEDS: LEVOTHYROXINE SODIUM 0.088 MG TABLET PO SCH (06:25)
[2020-08-25] MEDS: GABAPENTIN 300 MG CAPSULE PO SCH ×3 (06:25→21:14)
[2020-08-25] MEDS: TOPIRAMATE 25 MG TABLET PO SCH ×2 (06:25→18:06)
[2020-08-25] MEDS: DEXAMETHASONE SOD PHOSPHATE INJ 4 MG/1 ML VIAL IV SCH (10:15)
[2020-08-25] MEDS: ENOXAPARIN SODIUM INJ 40 MG/0.4 ML DISP.SYRIN SUBCUT SCH (10:15)
[2020-08-25] MEDS: FLUTICASONE/UMECLIDIN/VILANTER 100-62.5-25 MCG/DOSE IH SCH (10:16)
[2020-08-25] MEDS: PANTOPRAZOLE SODIUM 40 MG TABLET.DR PO SCH (10:16)
[2020-08-25] MEDS: MULTIVITAMIN TABLET PO SCH (10:17)
[2020-08-25] MEDS: MIDODRINE HCL 5 MG TABLET PO SCH ×3 (10:17→18:05)
[2020-08-25] MEDS: ONDANSETRON 4 MG TAB.RAPDIS PO PRN (13:09)
[2020-08-25] MEDS: BENZTROPINE MESYLATE 1 MG TABLET PO SCH (18:05)
[2020-08-25] MEDS: LURASIDONE HCL 40 MG TABLET PO SCH (18:06)
[2020-08-25] MEDS: SERTRALINE HCL 50 MG TABLET PO SCH (21:14)
[2020-08-25] MEDS: ZOLPIDEM TARTRATE 5 MG TABLET PO SCH (21:14)
--- NOTE | 2020-08-25 21:54 | PDOC PROGRESS REPORT ---
Subjective Progress Note for:: 08/25/20 Subjective:: Patient seen by the bedside Reason For Visit: ACUTE HYPOXEMIC RESPIRATORY FAILURE Physical Exam Vital Signs: Temp Pulse Resp BP Pulse Ox 98.1 F 70 18 114/69 97 08/25/20 19:32 08/25/20 19:32 08/25/20 19:32 08/25/20 19:32 08/25/20 19:32 Intake & Output 08/24/20 08/25/20 08/26/20 06:59 06:59 06:59 Intake Total 1740 1999 119 Output Total 350 35 Balance 1390 1999 115 Weight 63.8 kg 65.9 kg General appearance: PRESENT: no acute distress Eye exam: PRESENT: PERRLA Respiratory exam: PRESENT: clear to auscultation rona Cardiovascular exam: PRESENT: +S1, +S2 GI/Abdominal exam: PRESENT: soft Neurological exam: PRESENT: alert, CN II-XII grossly intact Results Laboratory Results: 08/23/20 15:45 08/23/20 15:45 08/15/20 08/15/20 08/15/20 15:20 22:34 22:34 Creatine Kinase 758 H CK-MB (CK-2) 1.89 3.47 Troponin I < 0.012 < 0.012 NT-Pro-B Natriuret Pep 463 H Impressions: Chest/Abdomen CTA 08/15/20 15:41 IMPRESSION: No emboli visualized in the main pulmonary arteries or the segmental branches.Diffuse ground-glass opacities throughout both lungs with some mild sparing of the majority of the left upper lobe. No pleural effusions.Multiple enlarged nodes similar to the prior study. Head CT 08/17/20 00:00 IMPRESSION: No acute intracranial findings are seen. Please note that MRI is more sensitive for the evaluation of early infarction, and may be performed if there is high clinical concern. Chest X-Ray 08/22/20 00:00 IMPRESSION: Worsening left upper lung consolidation with improved aeration at the left lung base and in the right lung. Assessment & Plan - Diagnosis (1) Acute hypoxemic respiratory failure Is this a current diagnosis for this admission?: Yes Plan: Patient on supplemental oxygen via nasal cannula (2) Hypokalemia Is this a current diagnosis for this admission?: Yes Plan: Replenished (3) Bilateral pneumonia Qualifiers: Pneumonia type: due to unspecified organism Lung location: unspecified part of lung Qualified Code(s): J18.9 - Pneumonia, unspecified organism Is this a current diagnosis for this admission?: Yes Plan: Follow chest x-ray (4) Hemiplegia affecting right dominant side Qualifiers: Hemiplegia type: unspecified type Hemiplegia etiology: unspecified etiology Qualified Code(s): G81.91 - Hemiplegia, unspecified affecting right dominant side Is this a current diagnosis for this admission?: Yes (5) Generalized weakness Is this a current diagnosis for this admission?: Yes Plan: Out of bed to chair, consult physical therapy for PT. - Time Time Spent with patient: 15-24 minutes Level of Care: IMCU Medications reviewed and adjusted accordingly: Yes Anticipated discharge: SNF Anticipated DC Timeframe: within 72 hours
[2020-08-26] MEDS: LEVOTHYROXINE SODIUM 0.088 MG TABLET PO SCH (05:37)
[2020-08-26] MEDS: TOPIRAMATE 25 MG TABLET PO SCH ×2 (05:37→17:54)
[2020-08-26] MEDS: GABAPENTIN 300 MG CAPSULE PO SCH ×3 (05:37→21:32)
[2020-08-26] MEDS: OXYCODONE HCL IR 5 MG TABLET PO PRN ×5 (05:37→23:31)
[2020-08-26] MEDS: RINGERS SOLUTION,LACTATED 1,000 ML IV PRN ×2 (05:39→19:01)
[2020-08-26 06:48] LABS: HEMATOCRIT 28.3 % (36.0-47.0); HEMOGLOBIN 9.4 g/dL (12.0-15.5); MEAN CORPUSCULAR HEMOGLOBIN 32.4 pg (27.0-33.4); MEAN CORPUSCULAR HGB CONC 33.2 g/dL (32.0-36.0); MEAN CORPUSCULAR VOLUME 98 fl (80-97); PLATELET COUNT 313 10^3/uL (150-450); RED CELL DISTRIBUTION WIDTH 16.3 % (11.5-14.0); WHITE BLOOD COUNT 12.9 10^3/uL (4.0-10.5)
[2020-08-26 07:07] LABS: ALBUMIN 2.4 g/dL (3.5-5.0); ALKALINE PHOSPHATASE 101 U/L (38-126); ASPARTATE AMINO TRANSFERASE 32 U/L (14-36); BILIRUBIN,DIRECT 0.2 mg/dL (0.0-0.4); BILIRUBIN,TOTAL 0.2 mg/dL (0.2-1.3); BLOOD UREA NITROGEN 10 mg/dL (7-20); CALCIUM 8.1 mg/dL (8.4-10.2); CARBON DIOXIDE 26 mmol/L (22-30); POTASSIUM 3.9 mmol/L (3.6-5.0); TOTAL PROTEIN 4.7 g/dL (6.3-8.2)
[2020-08-26 07:10] LABS: GLUCOSE 68 mg/dL (75-110)
[2020-08-26 07:13] LABS: CHLORIDE 107 mmol/L (98-107)
[2020-08-26 07:17] LABS: ANION GAP 4 (5-19)
[2020-08-26 07:20] LABS: ABSOLUTE LYMPHOCYTES# (MANUAL) 3.4 10^3/uL (0.5-4.7); ABSOLUTE MONOCYTES # (MANUAL) 0.3 10^3/uL (0.1-1.4); BASOPHILS % (MANUAL) 0 % (0-2); EOSINOPHILS % (MANUAL) 0 % (0-6); LYMPHOCYTES % (MANUAL) 26 % (13-45); MONOCYTES % (MANUAL) 2 % (3-13); SEGMENTED NEUTROPHILS % (MAN) 72 % (42-78); TOTAL CELLS COUNTED 100
[2020-08-26 07:22] LABS: ANISOCYTOSIS 1+; PLATELET COMMENT ADEQUATE
[2020-08-26] MEDS: ENOXAPARIN SODIUM INJ 40 MG/0.4 ML DISP.SYRIN SUBCUT SCH (09:53)
[2020-08-26] MEDS: DEXAMETHASONE SOD PHOSPHATE INJ 4 MG/1 ML VIAL IV SCH (09:53)
[2020-08-26] MEDS: ONDANSETRON 4 MG TAB.RAPDIS PO PRN (09:55)
[2020-08-26] MEDS: MULTIVITAMIN TABLET PO SCH (09:55)
[2020-08-26] MEDS: MIDODRINE HCL 5 MG TABLET PO SCH ×3 (09:55→17:54)
[2020-08-26] MEDS: PANTOPRAZOLE SODIUM 40 MG TABLET.DR PO SCH (09:56)
[2020-08-26] MEDS: FLUTICASONE/UMECLIDIN/VILANTER 100-62.5-25 MCG/DOSE IH SCH (10:04)
[2020-08-26] MEDS: LURASIDONE HCL 40 MG TABLET PO SCH (17:54)
[2020-08-26] MEDS: BENZTROPINE MESYLATE 1 MG TABLET PO SCH (17:54)
[2020-08-26] MEDS: FUROSEMIDE INJ/PF 40 MG/4 ML SDV IV SCH (18:54)
[2020-08-26] MEDS: SERTRALINE HCL 50 MG TABLET PO SCH (21:32)
[2020-08-26] MEDS: ZOLPIDEM TARTRATE 5 MG TABLET PO SCH (21:33)
--- NOTE | 2020-08-26 23:05 | PDOC PROGRESS REPORT ---
Subjective Progress Note for:: 08/26/20 Subjective:: Patient seen by the bedside she has fluid retention Reason For Visit: ACUTE HYPOXEMIC RESPIRATORY FAILURE Physical Exam Vital Signs: Temp Pulse Resp BP Pulse Ox 98.0 F 64 19 102/69 98 08/26/20 19:45 08/26/20 19:45 08/26/20 19:45 08/26/20 19:45 08/26/20 19:45 Intake & Output 08/25/20 08/26/20 08/27/20 06:59 06:59 06:59 Intake Total 1999 2190 1538 Output Total 335 800 Balance 1999 1855 738 Weight 65.9 kg 69.7 kg General appearance: PRESENT: no acute distress Eye exam: PRESENT: PERRLA Respiratory exam: PRESENT: clear to auscultation rona Cardiovascular exam: PRESENT: +S1, +S2 GI/Abdominal exam: PRESENT: soft Neurological exam: PRESENT: alert Results Laboratory Results: 08/26/20 06:11 08/26/20 06:11 08/26/20 08/26/20 06:11 06:11 WBC 12.9 H RBC 2.90 L Hgb 9.4 L Hct 28.3 L MCV 98 H MCH 32.4 MCHC 33.2 RDW 16.3 H Plt Count 313 Seg Neutrophils % Not Reportable Sodium 137.4 Potassium 3.9 Chloride 107 Carbon Dioxide 26 Anion Gap 4 L BUN 10 Creatinine 0.53 Est GFR ( Amer) > 60 Glucose 68 L Calcium 8.1 L Total Bilirubin 0.2 AST 32 Alkaline Phosphatase 101 Total Protein 4.7 L Albumin 2.4 L 08/15/20 08/15/20 08/15/20 15:20 22:34 22:34 Creatine Kinase 758 H CK-MB (CK-2) 1.89 3.47 Troponin I < 0.012 < 0.012 NT-Pro-B Natriuret Pep 463 H Impressions: Chest/Abdomen CTA 08/15/20 15:41 IMPRESSION: No emboli visualized in the main pulmonary arteries or the segmental branches.Diffuse ground-glass opacities throughout both lungs with some mild sparing of the majority of the left upper lobe. No pleural effusions.Multiple enlarged nodes similar to the prior study. Head CT 08/17/20 00:00 IMPRESSION: No acute intracranial findings are seen. Please note that MRI is more sensitive for the evaluation of early infarction, and may be performed if there is high clinical concern. Chest X-Ray 08/22/20 00:00 IMPRESSION: Worsening left upper lung consolidation with improved aeration at the left lung base and in the right lung. Assessment & Plan - Diagnosis (1) Acute hypoxemic respiratory failure Is this a current diagnosis for this admission?: Yes Plan: Patient on supplemental oxygen via nasal cannula (2) Hypokalemia Is this a current diagnosis for this admission?: Yes (3) Bilateral pneumonia Qualifiers: Pneumonia type: due to unspecified organism Lung location: unspecified part of lung Qualified Code(s): J18.9 - Pneumonia, unspecified organism Is this a current diagnosis for this admission?: Yes (4) Hemiplegia affecting right dominant side Qualifiers: Hemiplegia type: unspecified type Hemiplegia etiology: unspecified etiology Qualified Code(s): G81.91 - Hemiplegia, unspecified affecting right dominant side Is this a current diagnosis for this admission?: Yes (5) Generalized weakness Is this a current diagnosis for this admission?: Yes Plan: Out of bed to chair, consult physical therapy for PT. (6) Anasarca Is this a current diagnosis for this admission?: Yes Plan: Start furosemide 40 mg IV daily - Time Time Spent with patient: 25-34 minutes Level of Care: IMCU Anticipated discharge: Home Anticipated DC Timeframe: within 72 hours
[2020-08-27] MEDS: OXYCODONE HCL IR 5 MG TABLET PO PRN ×4 (03:44→19:52)
[2020-08-27] MEDS: TOPIRAMATE 25 MG TABLET PO SCH ×2 (05:03→17:37)
[2020-08-27] MEDS: LEVOTHYROXINE SODIUM 0.088 MG TABLET PO SCH (05:04)
[2020-08-27] MEDS: GABAPENTIN 300 MG CAPSULE PO SCH ×3 (05:04→22:34)
[2020-08-27] MEDS: ONDANSETRON 4 MG TAB.RAPDIS PO PRN (08:34)
[2020-08-27] MEDS: MIDODRINE HCL 5 MG TABLET PO SCH ×3 (09:27→17:37)
[2020-08-27] MEDS: PANTOPRAZOLE SODIUM 40 MG TABLET.DR PO SCH (09:27)
[2020-08-27] MEDS: MULTIVITAMIN TABLET PO SCH (09:28)
[2020-08-27] MEDS: FUROSEMIDE INJ/PF 40 MG/4 ML SDV IV SCH (09:29)
[2020-08-27] MEDS: ENOXAPARIN SODIUM INJ 40 MG/0.4 ML DISP.SYRIN SUBCUT SCH (09:32)
--- NOTE | 2020-08-27 10:44 | PDOC PROGRESS REPORT ---
Subjective Progress Note for:: 08/27/20 Subjective:: Patient is currently doing well Patient's denied any chest pain no short of breath No abdominal pain Still having some nausea No fever no chills Reason For Visit: ACUTE HYPOXEMIC RESPIRATORY FAILURE Physical Exam Vital Signs: Temp Pulse Resp BP Pulse Ox 98.1 F 72 18 102/62 97 08/27/20 08:40 08/27/20 07:00 08/27/20 03:21 08/27/20 03:21 08/27/20 03:21 Intake & Output 08/26/20 08/27/20 08/28/20 06:59 06:59 06:59 Intake Total 2190 1538 Output Total 335 2000 Balance 1855 -462 Weight 69.7 kg 66.9 kg General appearance: PRESENT: no acute distress, well-developed, well-nourished Head exam: PRESENT: atraumatic, normocephalic Eye exam: PRESENT: conjunctiva pink, EOMI, PERRLA. ABSENT: scleral icterus Ear exam: PRESENT: normal external ear exam Mouth exam: PRESENT: moist, tongue midline Neck exam: PRESENT: full ROM. ABSENT: carotid bruit, JVD, lymphadenopathy, thyromegaly Cardiovascular exam: PRESENT: RRR. ABSENT: diastolic murmur, rubs, systolic murmur Vascular exam: PRESENT: normal capillary refill GI/Abdominal exam: PRESENT: normal bowel sounds, soft. ABSENT: distended, guarding, mass, organolmegaly, rebound, tenderness Rectal exam: PRESENT: deferred Neurological exam: PRESENT: alert, awake, oriented to person, oriented to place, oriented to time, oriented to situation. ABSENT: motor sensory deficit Psychiatric exam: PRESENT: appropriate affect, normal mood. ABSENT: homicidal ideation, suicidal ideation Skin exam: PRESENT: dry, intact, warm. ABSENT: cyanosis, rash Results Laboratory Results: 08/26/20 06:11 08/26/20 06:11 08/15/20 08/15/20 08/15/20 15:20 22:34 22:34 Creatine Kinase 758 H CK-MB (CK-2) 1.89 3.47 Troponin I < 0.012 < 0.012 NT-Pro-B Natriuret Pep 463 H Impressions: Chest/Abdomen CTA 08/15/20 15:41 IMPRESSION: No emboli visualized in the main pulmonary arteries or the segmental branches.Diffuse ground-glass opacities throughout both lungs with some mild sparing of the majority of the left upper lobe. No pleural effusions.Multiple enlarged nodes similar to the prior study. Head CT 08/17/20 00:00 IMPRESSION: No acute intracranial findings are seen. Please note that MRI is more sensitive for the evaluation of early infarction, and may be performed if there is high clinical concern. Chest X-Ray 08/22/20 00:00 IMPRESSION: Worsening left upper lung consolidation with improved aeration at the left lung base and in the right lung. Assessment & Plan - Diagnosis (1) Pneumonia Qualifiers: Pneumonia type: due to unspecified organism Laterality: bilateral Lung location: unspecified part of lung Qualified Code(s): J18.9 - Pneumonia, unspecified organism Is this a current diagnosis for this admission?: Yes (2) Acute hypoxemic respiratory failure Is this a current diagnosis for this admission?: Yes (3) Anasarca Is this a current diagnosis for this admission?: Yes (4) CHF (congestive heart failure) Qualifiers: Heart failure type: unspecified Heart failure chronicity: unspecified Qualified Code(s): I50.9 - Heart failure, unspecified Is this a current diagnosis for this admission?: Yes (5) Hypoalbuminemia Is this a current diagnosis for this admission?: Yes - Time Time Spent with patient: 15-24 minutes Level of Care: IMCU Medications reviewed and adjusted accordingly: Yes Anticipated discharge: Home with Homehealth Anticipated DC Timeframe: Other - Plan Summary Plan Summary: Continues to current medications We will recheck the blood work in the morning
[2020-08-27] MEDS: FLUTICASONE/UMECLIDIN/VILANTER 100-62.5-25 MCG/DOSE IH SCH (12:01)
[2020-08-27] MEDS: RINGERS SOLUTION,LACTATED 1,000 ML IV PRN (12:01)
[2020-08-27] MEDS: BENZTROPINE MESYLATE 1 MG TABLET PO SCH (17:37)
[2020-08-27] MEDS: LURASIDONE HCL 40 MG TABLET PO SCH (17:37)
[2020-08-27] MEDS ORDERED: MIDODRINE HCL 5 MG TABLET PO ONE (22:00)
[2020-08-27] MEDS: ZOLPIDEM TARTRATE 5 MG TABLET PO SCH (22:34)
[2020-08-27] MEDS: SERTRALINE HCL 50 MG TABLET PO SCH (22:34)
[2020-08-28] MEDS: RINGERS SOLUTION,LACTATED 1,000 ML IV PRN ×2 (01:33→20:10)
[2020-08-28] MEDS: LEVOTHYROXINE SODIUM 0.088 MG TABLET PO SCH (05:38)
[2020-08-28] MEDS: GABAPENTIN 300 MG CAPSULE PO SCH ×3 (05:39→21:52)
[2020-08-28] MEDS: TOPIRAMATE 25 MG TABLET PO SCH ×2 (05:39→18:20)
[2020-08-28] MEDS: OXYCODONE HCL IR 5 MG TABLET PO PRN ×4 (05:39→20:10)
[2020-08-28 06:59] LABS: HEMATOCRIT 27.4 % (36.0-47.0); HEMOGLOBIN 9.2 g/dL (12.0-15.5); MEAN CORPUSCULAR HEMOGLOBIN 32.2 pg (27.0-33.4); MEAN CORPUSCULAR HGB CONC 33.5 g/dL (32.0-36.0); MEAN CORPUSCULAR VOLUME 96 fl (80-97); PLATELET COUNT 327 10^3/uL (150-450); RED BLOOD COUNT 2.85 10^6/uL (3.72-5.28); RED CELL DISTRIBUTION WIDTH 15.9 % (11.5-14.0); WHITE BLOOD COUNT 9.8 10^3/uL (4.0-10.5)
[2020-08-28 07:18] LABS: BLOOD UREA NITROGEN 13 mg/dL (7-20); CALCIUM 7.8 mg/dL (8.4-10.2); CARBON DIOXIDE 27 mmol/L (22-30); CHLORIDE 106 mmol/L (98-107); GLUCOSE 71 mg/dL (75-110); POTASSIUM 4.2 mmol/L (3.6-5.0)
[2020-08-28 07:22] LABS: ANION GAP 4 (5-19)
[2020-08-28 07:51] LABS: ABSOLUTE MONOCYTES # (MANUAL) 0.6 10^3/uL (0.1-1.4); BAND NEUTROPHILS % (MANUAL) 3 % (3-5); BASOPHILS % (MANUAL) 0 % (0-2); EOSINOPHILS % (MANUAL) 3 % (0-6); LYMPHOCYTES % (MANUAL) 9 % (13-45); MONOCYTES % (MANUAL) 6 % (3-13); SEGMENTED NEUTROPHILS % (MAN) 78 % (42-78); TOTAL CELLS COUNTED 100
[2020-08-28 07:53] LABS: ANISOCYTOSIS 1+; PLATELET COMMENT ADEQUATE; POLYCHROMASIA SLIGHT
--- NOTE | 2020-08-28 09:53 | PDOC PROGRESS REPORT ---
Subjective Progress Note for:: 08/28/20 Subjective:: Patient is currently doing better No chest pain no short of breath Patient have some leg swelling in the thigh area because patient is pretty much seated on that positions Patient's blood pressure always running low increase Midrin dose yesterday Patient denied any headache no dizziness Patient denied any weakness Patient is using the more pain medications discussed with the patient is to cut down the frequency Reason For Visit: ACUTE HYPOXEMIC RESPIRATORY FAILURE Physical Exam Vital Signs: Temp Pulse Resp BP Pulse Ox 99.4 F 85 11 L 92/57 L 97 08/28/20 07:24 08/28/20 07:24 08/28/20 07:24 08/28/20 07:24 08/28/20 07:24 Intake & Output 08/27/20 08/28/20 08/29/20 06:59 06:59 06:59 Intake Total 1538 2805 Output Total 2000 525 Balance -462 2280 Weight 66.9 kg 67.5 kg General appearance: PRESENT: no acute distress, well-developed, well-nourished Head exam: PRESENT: atraumatic, normocephalic Eye exam: PRESENT: conjunctiva pink, EOMI, PERRLA. ABSENT: scleral icterus Ear exam: PRESENT: normal external ear exam Mouth exam: PRESENT: moist, tongue midline Neck exam: PRESENT: full ROM. ABSENT: carotid bruit, JVD, lymphadenopathy, thyromegaly Cardiovascular exam: PRESENT: RRR. ABSENT: diastolic murmur, rubs, systolic murmur Vascular exam: PRESENT: normal capillary refill GI/Abdominal exam: PRESENT: normal bowel sounds, soft. ABSENT: distended, guarding, mass, organolmegaly, rebound, tenderness Rectal exam: PRESENT: deferred Neurological exam: PRESENT: alert, awake, oriented to person, oriented to place, oriented to time, oriented to situation, reflexes normal. ABSENT: motor sensory deficit Psychiatric exam: PRESENT: appropriate affect, normal mood. ABSENT: homicidal ideation, suicidal ideation Skin exam: PRESENT: dry, intact, warm. ABSENT: cyanosis, rash Results Laboratory Results: 08/28/20 05:46 08/28/20 05:46 08/28/20 08/28/20 05:46 05:46 WBC 9.8 RBC 2.85 L Hgb 9.2 L Hct 27.4 L MCV 96 MCH 32.2 MCHC 33.5 RDW 15.9 H Plt Count 327 Seg Neutrophils % Not Reportable Sodium 136.5 L Potassium 4.2 Chloride 106 Carbon Dioxide 27 Anion Gap 4 L BUN 13 Creatinine 0.46 L Est GFR ( Amer) > 60 Glucose 71 L Calcium 7.8 L 08/15/20 08/15/20 08/15/20 15:20 22:34 22:34 Creatine Kinase 758 H CK-MB (CK-2) 1.89 3.47 Troponin I < 0.012 < 0.012 NT-Pro-B Natriuret Pep 463 H Impressions: Chest/Abdomen CTA 08/15/20 15:41 IMPRESSION: No emboli visualized in the main pulmonary arteries or the segmental branches.Diffuse ground-glass opacities throughout both lungs with some mild sparing of the majority of the left upper lobe. No pleural effusions.Multiple enlarged nodes similar to the prior study. Head CT 08/17/20 00:00 IMPRESSION: No acute intracranial findings are seen. Please note that MRI is more sensitive for the evaluation of early infarction, and may be performed if there is high clinical concern. Chest X-Ray 08/22/20 00:00 IMPRESSION: Worsening left upper lung consolidation with improved aeration at the left lung base and in the right lung. Assessment & Plan - Diagnosis (1) Pneumonia Qualifiers: Pneumonia type: due to unspecified organism Laterality: bilateral Lung location: unspecified part of lung Qualified Code(s): J18.9 - Pneumonia, unspecified organism Is this a current diagnosis for this admission?: Yes (2) Acute hypoxemic respiratory failure Is this a current diagnosis for this admission?: Yes (3) Anasarca Is this a current diagnosis for this admission?: Yes (4) CHF (congestive heart failure) Qualifiers: Heart failure type: unspecified Heart failure chronicity: unspecified Qualified Code(s): I50.9 - Heart failure, unspecified Is this a current diagnosis for this admission?: Yes (5) Hypoalbuminemia Is this a current diagnosis for this admission?: Yes - Time Time Spent with patient: 15-24 minutes Level of Care: IMCU Anticipated discharge: Home, Home with Homehealth Anticipated DC Timeframe: within 48 hours - Plan Summary Plan Summary: Continues to current medications
[2020-08-28] MEDS: MULTIVITAMIN TABLET PO SCH (11:21)
[2020-08-28] MEDS: PANTOPRAZOLE SODIUM 40 MG TABLET.DR PO SCH (11:21)
[2020-08-28] MEDS: ENOXAPARIN SODIUM INJ 40 MG/0.4 ML DISP.SYRIN SUBCUT SCH (11:21)
[2020-08-28] MEDS: FLUTICASONE/UMECLIDIN/VILANTER 100-62.5-25 MCG/DOSE IH SCH (11:27)
[2020-08-28] MEDS ORDERED: ALBUMIN HUMAN 12.5 GM/50 ML RTUINJ IV ONE (11:30)
[2020-08-28] MEDS: MIDODRINE HCL 5 MG TABLET PO SCH ×3 (11:33→18:20)
[2020-08-28] MEDS: FUROSEMIDE INJ/PF 40 MG/4 ML SDV IV SCH (12:36)
[2020-08-28] MEDS: BENZTROPINE MESYLATE 1 MG TABLET PO SCH (18:20)
[2020-08-28] MEDS: ONDANSETRON 4 MG TAB.RAPDIS PO PRN (18:52)
[2020-08-28] MEDS: LURASIDONE HCL 40 MG TABLET PO SCH (18:52)
[2020-08-28] MEDS: SERTRALINE HCL 50 MG TABLET PO SCH (21:52)
[2020-08-28] MEDS: ZOLPIDEM TARTRATE 5 MG TABLET PO SCH (21:52)
[2020-08-29] MEDS: LEVOTHYROXINE SODIUM 0.088 MG TABLET PO SCH (06:04)
[2020-08-29] MEDS: TOPIRAMATE 25 MG TABLET PO SCH ×2 (06:04→17:59)
[2020-08-29] MEDS: GABAPENTIN 300 MG CAPSULE PO SCH ×3 (06:04→22:46)
[2020-08-29] MEDS: OXYCODONE HCL IR 5 MG TABLET PO PRN ×4 (06:04→22:47)
[2020-08-29 06:34] LABS: ANION GAP 6 (5-19); BLOOD UREA NITROGEN 12 mg/dL (7-20); CARBON DIOXIDE 25 mmol/L (22-30); CHLORIDE 106 mmol/L (98-107); GLUCOSE 78 mg/dL (75-110); POTASSIUM 3.9 mmol/L (3.6-5.0)
[2020-08-29] MEDS: ONDANSETRON 4 MG TAB.RAPDIS PO PRN (08:35)
[2020-08-29] MEDS: MULTIVITAMIN TABLET PO SCH (10:49)
[2020-08-29] MEDS: FUROSEMIDE INJ/PF 40 MG/4 ML SDV IV SCH (10:49)
[2020-08-29] MEDS: PANTOPRAZOLE SODIUM 40 MG TABLET.DR PO SCH (10:49)
[2020-08-29] MEDS: MIDODRINE HCL 5 MG TABLET PO SCH ×3 (10:49→18:08)
[2020-08-29] MEDS: ENOXAPARIN SODIUM INJ 40 MG/0.4 ML DISP.SYRIN SUBCUT SCH (10:49)
[2020-08-29] MEDS: FLUTICASONE/UMECLIDIN/VILANTER 100-62.5-25 MCG/DOSE IH SCH (11:07)
[2020-08-29] MEDS: RINGERS SOLUTION,LACTATED 1,000 ML IV PRN (16:55)
[2020-08-29] MEDS: BENZTROPINE MESYLATE 1 MG TABLET PO SCH (17:59)
[2020-08-29] MEDS: LURASIDONE HCL 40 MG TABLET PO SCH (18:00)
--- NOTE | 2020-08-29 20:29 | PDOC PROGRESS REPORT ---
Subjective Progress Note for:: 08/29/20 Subjective:: Patient seen at bedside the plan is to discharge to residential for rehabilitation, she is very weak no strength Reason For Visit: ACUTE HYPOXEMIC RESPIRATORY FAILURE Physical Exam Vital Signs: Temp Pulse Resp BP Pulse Ox 98.3 F 81 19 113/72 95 08/29/20 16:03 08/29/20 16:03 08/29/20 16:03 08/29/20 16:03 08/29/20 16:03 Intake & Output 08/28/20 08/29/20 08/30/20 06:59 06:59 06:59 Intake Total 2805 548 1340 Output Total 525 3405 1950 Balance 9244 -2005 -042 Weight 67.5 kg 64.9 kg General appearance: PRESENT: no acute distress Eye exam: PRESENT: PERRLA Respiratory exam: PRESENT: clear to auscultation rona Cardiovascular exam: PRESENT: +S1, +S2 GI/Abdominal exam: PRESENT: soft Neurological exam: PRESENT: alert, CN II-XII grossly intact Results Laboratory Results: 08/28/20 05:46 08/29/20 05:30 08/29/20 05:30 Sodium 136.6 L Potassium 3.9 Chloride 106 Carbon Dioxide 25 Anion Gap 6 BUN 12 Creatinine 0.48 L Est GFR ( Amer) > 60 Glucose 78 Calcium 8.0 L 08/15/20 08/15/20 08/15/20 15:20 22:34 22:34 Creatine Kinase 758 H CK-MB (CK-2) 1.89 3.47 Troponin I < 0.012 < 0.012 NT-Pro-B Natriuret Pep 463 H Impressions: Chest/Abdomen CTA 08/15/20 15:41 IMPRESSION: No emboli visualized in the main pulmonary arteries or the segmental branches.Diffuse ground-glass opacities throughout both lungs with some mild sparing of the majority of the left upper lobe. No pleural effusions.Multiple enlarged nodes similar to the prior study. Head CT 08/17/20 00:00 IMPRESSION: No acute intracranial findings are seen. Please note that MRI is more sensitive for the evaluation of early infarction, and may be performed if there is high clinical concern. Chest X-Ray 08/22/20 00:00 IMPRESSION: Worsening left upper lung consolidation with improved aeration at the left lung base and in the right lung. Assessment & Plan - Diagnosis (1) Acute hypoxemic respiratory failure Is this a current diagnosis for this admission?: Yes (2) Hypokalemia Is this a current diagnosis for this admission?: Yes (3) Bilateral pneumonia Qualifiers: Pneumonia type: due to unspecified organism Lung location: unspecified part of lung Qualified Code(s): J18.9 - Pneumonia, unspecified organism Is this a current diagnosis for this admission?: Yes (4) Hemiplegia affecting right dominant side Qualifiers: Hemiplegia type: unspecified type Hemiplegia etiology: unspecified etiology Qualified Code(s): G81.91 - Hemiplegia, unspecified affecting right dominant side Is this a current diagnosis for this admission?: Yes (5) Generalized weakness Is this a current diagnosis for this admission?: Yes (6) Anasarca Is this a current diagnosis for this admission?: Yes - Time Time Spent with patient: 25-34 minutes Level of Care: IMCU Medications reviewed and adjusted accordingly: Yes Anticipated discharge: SNF Anticipated DC Timeframe: within 24 hours
--- NOTE | 2020-08-29 20:55 | PDOC TRANSFER SUMMARY ---
Impression - Admit/DC Date/PCP Admission Date/Primary Care Provider: 08/15/20 21:23 JOHN CANNON MD Discharge Date: 08/30/20 - Discharge Diagnosis (1) Acute hypoxemic respiratory failure Is this a current diagnosis for this admission?: Yes (2) Hypokalemia Is this a current diagnosis for this admission?: Yes (3) Bilateral pneumonia Is this a current diagnosis for this admission?: Yes (4) Hemiplegia affecting right dominant side Is this a current diagnosis for this admission?: Yes (5) Generalized weakness Is this a current diagnosis for this admission?: Yes (6) Anasarca Is this a current diagnosis for this admission?: Yes - Additional Information Discharge Diet: Regular Discharge Activity: Activity As Tolerated Referrals: JOHN CANNON MD [Primary Care Provider] - 09/05/20 10:45 am Home Medications: Amitriptyline HCl [Elavil 50 mg Tablet] 50 mg PO QHS 12/09/19 Benztropine Mesylate [Cogentin 1 mg Tablet] 1 mg PO QPM 12/09/19 Esomeprazole Magnesium [Nexium 24Hr] 40 mg PO DAILY 12/09/19 Fluticasone/Umeclidin/Vilanter [Trelegy 100-62.5-25 Mcg Ellipta 14 Dose/Dpi] 1 each IH DAILY 12/09/19 Gabapentin [Neurontin 300 mg Capsule] 300 mg PO Q8 12/09/19 Lurasidone HCl [Latuda 40 mg Tablet] 40 mg PO QPM 12/09/19 Sertraline HCl 100 mg PO QHS 12/09/19 Biotin 1 cap PO DAILY 08/16/20 Ibuprofen [Motrin 800 mg Tablet] 800 mg PO Q8HP PRN 08/16/20 Levothyroxine Sodium [Synthroid 0.088 mg Tablet] 0.088 mg PO Q6AM 08/16/20 Linaclotide [Linzess] 290 mg PO Q6AM 08/16/20 Multivitamin [Tab-A-Jose (Multiple Vitamin) Tablet] 1 tab PO DAILY 08/16/20 Ondansetron [Ondansetron Odt] 8 mg PO Q12HP PRN 08/16/20 Oxycodone HCl [Oxy-Ir 5 mg Tablet] 10 mg PO Q4HP PRN MDD 6 tabs 10/06/20 Topiramate [Topamax 25 mg Tablet] 25 mg PO Q12 08/16/20 Alprazolam [Xanax 0.25 mg Tablet] 0.25 mg PO TIDP PRN tablet 08/29/20 Furosemide [Lasix 40 mg Tablet] 20 mg PO QAM #0 08/29/20 History of Present Illiness History of Present Illness: [place] is a 50 year old female, She has a history of chronic obstructive pulmonary disease she presented to the emergency room for evaluation of shortness of breath for the last 3 days, cough, chills, generalized malaise and weakness. There was associated pleurisy,, a CT angiogram was obtained, it demonstrated diffuse ground glass opacities throughout both lung with some mild sparing of the majority of the left upper lobe. No pleural effusions there was no emboli visualized in the main pulmonary arteries or the segmental branches, in the area of COVID pandemic, SARS-CoV-2 pneumonia was suspected, she is to be admitted to respiratory isolation in [facility] to rule out SARS-CoV-2 infection but she will empirically be started on IV antibiotic for community-acquired pneumonia. Hospital Course Hospital Course: Patient was admitted for the management of acute hypoxemic respiratory failure associated with bilateral pneumonia. She was treated empirically with IV antibiotic including IV aztreonam and Levaquin, she was negative for SARS-CoV-2 infection,She required supplemental oxygen via nasal cannula, there was associated low blood pressure, on admission she required dexamethasone when she presented it was presumed she may have SARS-CoV-2 pneumonia and she was empirically started on IV dexamethasone before the result returned, she was not started on intravenous remdesivir because there was no confirmed SARS-CoV-2 infection but it returned as negative.During the course of hospital stay she complained of weakness, initially she described a focal weakness, CVA was suspected CT head was done was negative but ultimately the weakness was nonfocal it was generalized weakness probably secondary to acute infection. The plan is to transfer to [facility] for rehabilitation before discharge to home. Physical Exam Vital Signs: Temp Pulse Resp BP Pulse Ox 98.3 F 81 19 113/72 95 08/29/20 16:03 08/29/20 16:03 08/29/20 16:03 08/29/20 16:03 08/29/20 16:03 Intake & Output 08/28/20 08/29/20 08/30/20 06:59 06:59 06:59 Intake Total 2800 548 1340 Output Total 779 3035 1950 Balance 0277 -4988 -059 Weight 67.5 kg 64.9 kg General appearance: PRESENT: no acute distress Eye exam: PRESENT: PERRLA Respiratory exam: PRESENT: clear to auscultation rona Cardiovascular exam: PRESENT: +S1, +S2 GI/Abdominal exam: PRESENT: soft Neurological exam: PRESENT: alert, CN II-XII grossly intact Results Laboratory Results: WBC 9.8 10^3/uL (4.0-10.5) 08/28/20 05:46 RBC 2.85 10^6/uL (3.72-5.28) L 08/28/20 05:46 Hgb 9.2 g/dL (12.0-15.5) L 08/28/20 05:46 Hct 27.4 % (36.0-47.0) L 08/28/20 05:46 MCV 96 fl (80-97) 08/28/20 05:46 MCH 32.2 pg (27.0-33.4) 08/28/20 05:46 MCHC 33.5 g/dL (32.0-36.0) 08/28/20 05:46 RDW 15.9 % (11.5-14.0) H 08/28/20 05:46 Plt Count 327 10^3/uL (150-450) 08/28/20 05:46 Lymph % (Auto) Not Reportable 08/28/20 05:46 [place] % (Auto) Not Reportable 08/28/20 05:46 Eos % (Auto) Not Reportable 08/28/20 05:46 Baso % (Auto) Not Reportable 08/28/20 05:46 Absolute Neuts (auto) Not Reportable 08/28/20 05:46 Absolute Lymphs (auto) Not Reportable 08/28/20 05:46 Absolute Monos (auto) Not Reportable 08/28/20 05:46 Absolute Eos (auto) Not Reportable 08/28/20 05:46 Absolute Basos (auto) Not Reportable 08/28/20 05:46 Total Counted 100 08/28/20 05:46 Seg Neutrophils % Not Reportable 08/28/20 05:46 Seg Neuts % (Manual) 78 % (42-78) 08/28/20 05:46 Band Neutrophils % 3 % (3-5) 08/28/20 05:46 Lymphocytes % (Manual) 9 % (13-45) L 08/28/20 05:46 Atypical Lymphs % 1 % (0) 08/28/20 05:46 Monocytes % (Manual) 6 % (3-13) 08/28/20 05:46 Eosinophils % (Manual) 3 % (0-6) 08/28/20 05:46 Basophils % (Manual) 0 % (0-2) 08/28/20 05:46 Metamyelocytes % 2 % (0-1) H 08/23/20 15:45 Abs Neuts (Manual) 7.9 10^3/uL (1.7-8.2) 08/28/20 05:46 Abs Lymphs (Manual) 1.0 10^3/uL (0.5-4.7) 08/28/20 05:46 Abs Monocytes (Manual) 0.6 10^3/uL (0.1-1.4) 08/28/20 05:46 Absolute Eos (Manual) 0.3 10^3/uL (0.0-0.6) 08/28/20 05:46 Abs Basophils (Manual) 0.0 10^3/uL (0.0-0.2) 08/28/20 05:46 Nucleated RBCs 1 /100 WBC (0) 08/21/20 13:20 Platelet Comment ADEQUATE 08/28/20 05:46 Polychromasia SLIGHT 08/28/20 05:46 Anisocytosis 1+ 08/28/20 05:46 RBC Morph Comment NORMO-CYTIC/CHROMIC 08/18/20 04:55 Carbonic Acid 1.08 mmol/L (1.05-1.35) 08/15/20 22:55 HCO3/H2CO3 Ratio 21:1 08/15/20 22:55 ABG pH 7.42 (7.35-7.45) 08/15/20 22:55 ABG pCO2 35.8 mmHg (35-45) 08/15/20 22:55 ABG pO2 62.5 mmHg (80-100) L 08/15/20 22:55 ABG HCO3 22.9 mmol/L (20-24) 08/15/20 22:55 ABG Total CO2 24.0 mmol/L (21-25) 08/15/20 22:55 ABG O2 Saturation 92.6 % (94-98) L 08/15/20 22:55 ABG Base Excess -1.2 mmol/L 08/15/20 22:55 FiO2 21% 08/15/20 22:55 Sodium 136.6 mmol/L (137-145) L 08/29/20 05:30 Potassium 3.9 mmol/L (3.6-5.0) 08/29/20 05:30 Chloride 106 mmol/L (98-107) 08/29/20 05:30 Carbon Dioxide 25 mmol/L (22-30) 08/29/20 05:30 Anion Gap 6 (5-19) 08/29/20 05:30 BUN 12 mg/dL (7-20) 08/29/20 05:30 Creatinine 0.48 mg/dL (0.52-1.25) L 08/29/20 05:30 Est GFR ( Amer) > 60 (>60) 08/29/20 05:30 Est GFR (MDRD) Non-Af > 60 (>60) 08/29/20 05:30 Glucose 78 mg/dL (75-110) 08/29/20 05:30 POC Glucose 97 mg/dL (70-110) 08/18/20 16:33 Hemoglobin A1c % 4.4 % (4.7-6.0) L 08/16/20 05:13 Lactic Acid 1.6 mmol/L (0.7-2.1) 08/15/20 16:10 Calcium 8.0 mg/dL (8.4-10.2) L 08/29/20 05:30 Total Bilirubin 0.2 mg/dL (0.2-1.3) 08/26/20 06:11 Direct Bilirubin 0.2 mg/dL (0.0-0.4) 08/26/20 06:11 Neonat Total Bilirubin Not Reportable 08/26/20 06:11 Neonat Direct Bilirubin Not Reportable 08/26/20 06:11 Neonat Indirect Bili Not Reportable 08/26/20 06:11 AST 32 U/L (14-36) 08/26/20 06:11 ALT 55 U/L (<35) H 08/26/20 06:11 Alkaline Phosphatase 101 U/L (38-126) 08/26/20 06:11 Creatine Kinase 758 U/L (30-135) H 08/15/20 22:34 CK-MB (CK-2) 3.47 ng/mL (<4.55) 08/15/20 22:34 Troponin I < 0.012 ng/mL 08/15/20 22:34 NT-Pro-B Natriuret Pep 463 pg/mL (<125) H 08/15/20 22:34 Total Protein 4.7 g/dL (6.3-8.2) L 08/26/20 06:11 Albumin 2.4 g/dL (3.5-5.0) L 08/26/20 06:11 Lipase 14.7 U/L (23-300) L 08/15/20 15:20 Urine Color YELLOW 08/20/20 06:00 Urine Appearance CLEAR 08/20/20 06:00 Urine pH 7.0 (5.0-9.0) 08/20/20 06:00 Ur Specific [place] 1.011 08/20/20 06:00 Urine Protein NEGATIVE mg/dL (NEGATIVE) 08/20/20 06:00 Urine Glucose (UA) NEGATIVE mg/dL (NEGATIVE) 08/20/20 06:00 Urine Ketones NEGATIVE mg/dL (NEGATIVE) 08/20/20 06:00 Urine Blood NEGATIVE (NEGATIVE) 08/20/20 06:00 Urine Nitrite NEGATIVE (NEGATIVE) 08/20/20 06:00 Urine Nitrite (Reflex) NEGATIVE (NEGATIVE) 08/15/20 18:26 Urine Bilirubin NEGATIVE (NEGATIVE) 08/20/20 06:00 Urine Urobilinogen NEGATIVE mg/dL (<2.0) 08/20/20 06:00 Ur Leukocyte Esterase SMALL (NEGATIVE) H 08/20/20 06:00 Leukocyte Esterase Rfl MODERATE (NEGATIVE) H 08/15/20 18:26 Urine WBC (Auto) 6 /HPF 08/20/20 06:00 U Hyaline Cast (Auto) 1 /LPF 08/15/20 18:26 Urine RBC (Auto) 5 /HPF 08/20/20 06:00 Urine WBC (Reflex) 11 /HPF 08/15/20 18:26 Squamous Epi Cells Auto 6 /HPF 08/20/20 06:00 Urine Mucus (Auto) RARE /LPF 08/20/20 06:00 Urine Ascorbic Acid NEGATIVE (NEGATIVE) 08/20/20 06:00 COVID-19 Source See comment 08/24/20 09:50 COVID-19 (AKSHAT) Not Detected (Not Detect) 08/24/20 09:50 Influenza A (Rapid) NEGATIVE (NEGATIVE) 08/15/20 15:20 Influenza B (Rapid) NEGATIVE (NEGATIVE) 08/15/20 15:20 08/15/20 08/15/20 15:20 22:34 CK-MB (CK-2) 1.89 3.47 Troponin I < 0.012 < 0.012 NT-Pro-B Natriuret Pep 463 H Impressions: Chest X-Ray 08/15/20 11:54 IMPRESSION: NO ACUTE RADIOGRAPHIC FINDING IN THE CHEST. Chest/Abdomen CTA 08/15/20 15:41 IMPRESSION: No emboli visualized in the main pulmonary arteries or the segmental branches.Diffuse ground-glass opacities throughout both lungs with some mild sparing of the majority of the left upper lobe. No pleural e ffusions.Multiple enlarged nodes similar to the prior study. Head CT 08/17/20 00:00 IMPRESSION: No acute intracranial findings are seen. Please note that MRI is more sensitive for the evaluation of early infarction, and may be performed if there is high clinical concern. Chest X-Ray 08/19/20 00:00 IMPRESSION: Patchy bilateral midlung zone airspace disease. Consider multifocal pneumonia. copyright 2010 [employer]- All Rights Reserved Chest X-Ray 08/22/20 00:00 IMPRESSION: Worsening left upper lung consolidation with improved aeration at the left lung base and in the right lung. Stroke Is this a Stroke Patient?: No Acute Heart Failure Is this a Heart Failure Patient?: No
--- NOTE | 2020-08-29 21:29 | RADIOLOGY REPORT (SQ) ---
XR CHEST 1 VIEW HISTORY: Pneumonia. COMPARISON: 08/22/2020 FINDINGS: The heart size is within normal limits. There is no pulmonary vascular congestion. There is interval improvement of the bilateral lung airspace opacities. No pleural effusions or pneumothorax. No acute bony findings are seen. IMPRESSION: Interval improvement in bilateral airspace opacities.
[2020-08-29] MEDS: ZOLPIDEM TARTRATE 5 MG TABLET PO SCH (22:46)
[2020-08-29] MEDS: SERTRALINE HCL 50 MG TABLET PO SCH (22:46)
[2020-08-30] MEDS: OXYCODONE HCL IR 5 MG TABLET PO PRN ×2 (04:11→11:21)
[2020-08-30] MEDS: TOPIRAMATE 25 MG TABLET PO SCH (05:18)
[2020-08-30] MEDS: LEVOTHYROXINE SODIUM 0.088 MG TABLET PO SCH (05:18)
[2020-08-30] MEDS: GABAPENTIN 300 MG CAPSULE PO SCH (05:18)
[2020-08-30 06:22] LABS: ANION GAP 6 (5-19); BLOOD UREA NITROGEN 14 mg/dL (7-20); CALCIUM 7.9 mg/dL (8.4-10.2); CARBON DIOXIDE 24 mmol/L (22-30); CHLORIDE 107 mmol/L (98-107); GLUCOSE 85 mg/dL (75-110); POTASSIUM 3.8 mmol/L (3.6-5.0)
[2020-08-30] MEDS: ONDANSETRON 4 MG TAB.RAPDIS PO PRN (07:56)
[2020-08-30] MEDS: MIDODRINE HCL 5 MG TABLET PO SCH (09:21)
[2020-08-30] MEDS: FUROSEMIDE INJ/PF 40 MG/4 ML SDV IV SCH (09:21)
[2020-08-30] MEDS: MULTIVITAMIN TABLET PO SCH (09:21)
[2020-08-30] MEDS: PANTOPRAZOLE SODIUM 40 MG TABLET.DR PO SCH (09:22)
[2020-08-30] MEDS: FLUTICASONE/UMECLIDIN/VILANTER 100-62.5-25 MCG/DOSE IH SCH (09:22)
[2020-08-30] MEDS: ENOXAPARIN SODIUM INJ 40 MG/0.4 ML DISP.SYRIN SUBCUT SCH (09:22)
[2020-08-30 12:24] VITALS: BP 107/57
== END 2020-08-30 13:00 | DRG 193 ==
LOC: ER 11:36 → EH 21:23 → 3N 23:38 → 3W 08-17 15:43 → 3S 08-19 17:43
PROVIDERS: ADMIT Internal Medicine; ATTEND Internal Medicine
DX: J18.9 Pneumonia, unspecified organism (principal); J96.01 Acute respiratory failure with hypoxia; G81.91 Hemiplegia, unspecified affecting right dominant side; J44.0 Chronic obstructive pulmonary disease with (acute) lower respiratory infection; E87.6 Hypokalemia; E88.09 Other disorders of plasma-protein metabolism, not elsewhere classified; L89.152 Pressure ulcer of sacral region, stage 2; F17.210 Nicotine dependence, cigarettes, uncomplicated; Z20.828 Contact with and (suspected) exposure to other viral communicable diseases; Z88.0 Allergy status to penicillin; Z88.2 Allergy status to sulfonamides; Z98.84 Bariatric surgery status; Z86.73 Personal history of transient ischemic attack (TIA), and cerebral infarction without residual deficits; Z86.718 Personal history of other venous thrombosis and embolism; Z79.51 Long term (current) use of inhaled steroids; Z23 Encounter for immunization; Z79.1 Long term (current) use of non-steroidal anti-inflammatories (NSAID); Z79.891 Long term (current) use of opiate analgesic
CPT/HCPCS: 36415; 36600; 70450; 71045; 71275; 80048; 80053; 81001; 82550; 82553; 82803; 82962; 83036; 83605; 83690; 83880; 84484; 85025; 87040; 87635; 87804; 94640; 96365; 96375; 99285; C9803; J0456; J1100; J1650; J1940; J1956; J3480; J3490; J7040; J7060; J7120; J7613; P9047; S0119

== ENCOUNTER 2020-11-08 14:28 | Inpatient (IN) | payer MEDICARE, MEDICAID ==
[2020-11-08 16:10] LABS: ABSOLUTE BASOPHILS # (AUTO) 0.1 10^3/uL (0.0-0.2); ABSOLUTE EOSINOPHILS # (AUTO) 0.2 10^3/uL (0.0-0.6); ABSOLUTE LYMPHOCYTES (AUTO) 2.9 10^3/uL (0.5-4.7); ABSOLUTE MONOCYTES (AUTO) 0.2 10^3/uL (0.1-1.4); ABSOLUTE NEUT (AUTO) 4.1 10^3/uL (1.7-8.2); EOSINOPHILS % (AUTO) 2.9 % (0-6); HEMATOCRIT 38.7 % (36.0-47.0); HEMOGLOBIN 12.7 g/dL (12.0-15.5); LYMPHOCYTES % (AUTO) 38.4 % (13-45); MEAN CORPUSCULAR HEMOGLOBIN 28.7 pg (27.0-33.4); MEAN CORPUSCULAR HGB CONC 32.8 g/dL (32.0-36.0); MEAN CORPUSCULAR VOLUME 88 fl (80-97); MONOCYTES % (AUTO) 2.1 % (3-13); PLATELET COUNT 143 10^3/uL (150-450); RED BLOOD COUNT 4.41 10^6/uL (3.72-5.28); RED CELL DISTRIBUTION WIDTH 16.3 % (11.5-14.0); SEGMENTED NEUTROPHILS % (AUTO) 55.6 % (42-78); TOTAL CELLS COUNTED % (AUTO) 100 %; WHITE BLOOD COUNT 7.5 10^3/uL (4.0-10.5)
--- NOTE | 2020-11-08 16:12 | EKG REPORT ---
SEVERITY:- ABNORMAL ECG - PROBABLE SINUS RHYTHM LEFT AXIS DEVIATION ANTERIOR INFARCT, AGE INDETERMINATE EXCESSIVE BASELINE ARTEFACT : Confirmed by: Skip Guerrero MD 08-Nov-2020 16:11:03
[2020-11-08 16:16] LABS: APPEARANCE,URINE CLEAR; BILIRUBIN,URINE NEGATIVE (NEGATIVE); COLOR,URINE AMBER; GLUCOSE, URINE NEGATIVE (NEGATIVE); KETONES,URINE NEGATIVE (NEGATIVE); PROTEIN,URINE NEGATIVE (NEGATIVE); URINE SPECIFIC GRAVITY 1.016
[2020-11-08 16:32] LABS: ALBUMIN 2.3 g/dL (3.5-5.0); ALKALINE PHOSPHATASE 335 U/L (38-126); ANION GAP 13 (5-19); ASPARTATE AMINO TRANSFERASE 57 U/L (14-36); BILIRUBIN,DIRECT 0.7 mg/dL (0.0-0.4); BILIRUBIN,TOTAL 1.1 mg/dL (0.2-1.3); BLOOD UREA NITROGEN 15 mg/dL (7-20); CALCIUM 7.3 mg/dL (8.4-10.2); CARBON DIOXIDE 24 mmol/L (22-30); CHLORIDE 101 mmol/L (98-107); GLUCOSE 98 mg/dL (75-110); TOTAL PROTEIN 5.5 g/dL (6.3-8.2)
[2020-11-08 16:39] LABS: POTASSIUM 2.2 mmol/L (3.6-5.0)
[2020-11-08] MEDS ORDERED: NORMAL SALINE 1000 ML 1,000 ML IV ONE (16:46)
[2020-11-08] MEDS ORDERED: MAGNESIUM SULFATE/D5W 1 GM/100 ML RTUPB IV ONE (17:32)
[2020-11-08] MEDS ORDERED: POTASSIUM CHLORIDE 10 MEQ TABLET.ER PO ONE (17:32)
--- NOTE | 2020-11-08 17:33 | RADIOLOGY REPORT (SQ) ---
EXAM DESCRIPTION: CHEST SINGLE VIEW IMAGES COMPLETED DATE/TIME: 11/08/2020 5:21 pm REASON FOR STUDY: weakness COMPARISON: 08/29/2020 EXAM PARAMETERS: NUMBER OF VIEWS: One view. TECHNIQUE: Single frontal radiographic view of the chest acquired. RADIATION DOSE: NA LIMITATIONS: None. FINDINGS: LUNGS AND PLEURA: No opacities, masses or pneumothorax. No pleural effusion. MEDIASTINUM AND HILAR STRUCTURES: No masses. Contour normal. HEART AND VASCULAR STRUCTURES: Heart normal in size. Normal vasculature. BONES: No acute findings. HARDWARE: None in the chest. OTHER: No other significant finding. IMPRESSION: NO ACUTE RADIOGRAPHIC FINDING IN THE CHEST. TECHNICAL DOCUMENTATION: JOB ID: [id number] 2010 [employer] for [employer] and [employer]- All Rights Reserved Reading location - IP/workstation name: [email or web address]
[2020-11-08] MEDS ORDERED: OXYCODONE HCL IR 5 MG TABLET PO ONE (17:39)
--- NOTE | 2020-11-08 17:48 | ER Document Report ---
ED General - General Chief Complaint: Weakness Stated Complaint: WEAKNESS/SEPSIS Time Seen by Provider: 11/08/20 16:44 Primary Care Provider: JOHN CANNON MD [Primary Care Provider] - Follow up as needed TRAVEL OUTSIDE OF THE [place] IN LAST 30 DAYS: No - HPI Notes: Patient is a 50-year-old female with multiple chronic medical issues, who presents to the emergency department for evaluation of generalized weakness and decline. Evidently the patient was admitted to the hospital in September with pneumonia. She went from an inpatient stay for 2 weeks to a rehab facility for 3 weeks. She was sent home following that. She continues to receive home health care as well as PT. Evidently both her primary care provider as well as her home health nurse recommended that she come to the ED because she continues to weaken. She is unable to stand on her own. She has a sacral decubitus ulcer that has become more painful. She states she is taking all of her medications a s prescribed. She has chronic pain in her sacrum and her lower back, but denies any different pain. She has had some chronic nausea but denies any recent vomiting. She is still urinating. She has edema in her lower legs which she states has been ongoing for some time but may be slightly worse. - Related Data Allergies/Adverse Reactions: cilastatin [From Primaxin IV] Allergy (Intermediate, Verified 09/22/19 11:16) Facial swelling imipenem [From Primaxin IV] Allergy (Intermediate, Verified 09/22/19 11:16) Facial swelling Penicillins Allergy (Mild, Verified 09/22/19 11:16) Generalized rash Sulfa (Sulfonamide Antibiotics) Allergy (Mild, Verified 09/22/19 11:16) Generalized rash Home Medications: Extensive list, see notes in summary Past Medical History - General Information source: Patient - See note some report never smoked - Social History Smoking Status: Current Every Day Smoker - Yes Chew tobacco use (# tins/day): No Frequency of alcohol use: None Drug Abuse: None Family History: DM, Hypertension - Past Medical History Cardiac Medical History: Reports: Hx Hypercholesterolemia - Corrected with gastric bypass, Hx Hypertension - Corrected with gastric bypass Pulmonary Medical History: Reports: Hx COPD, Hx Pneumonia Neurological Medical History: Reports: Hx Cerebrovascular Accident Endocrine Medical History: Reports: Hx Diabetes Mellitus Type 2 - Corrected with gastric bypass, Hx Hypothyroidism Renal/ Medical History: Denies: Hx Ovarian Cysts, Hx Peritoneal Dialysis, Hx Pelvic Inflammatory Disease Malignancy Medical History: Reports: Hx Ovarian Cancer GI Medical History: Reports: Hx Gastroesophageal Reflux Disease, Hx Ulcer, Hx Colonoscopy, Hx Endoscopy Musculoskeletal Medical History: Reports Hx Arthritis Psychiatric Medical History: Reports: Hx Anxiety, Hx Bipolar Disorder, Hx Depression, Hx Schizophrenia Traumatic Medical History: Reports: Hx Fractures - 3 fx, left hip fx 10/2017 Past Surgical History: Reports: Hx Abdominal Surgery - gastric bypass, reversal, Hx Cholecystectomy, Hx Gastric Bypass Surgery, Hx Hysterectomy, Hx Orthopedic Surgery - LLE, left jaw, total left hip arthroplasty on 09/08/2018. - Immunizations Immunizations up to date: No Hx Diphtheria, Pertussis, Tetanus Vaccination: No Review of Systems - Review of Systems Constitutional: See HPI EENT: No symptoms reported Cardiovascular: No symptoms reported Respiratory: No symptoms reported Gastrointestinal: See HPI Genitourinary: No symptoms reported Musculoskeletal: See HPI Skin: See HPI Neurological/Psychological: No symptoms reported Physical Exam - Vital signs Vitals: Temp Resp BP Pulse Ox 98.4 F 14 97/71 L 100 11/08/20 15:15 11/08/20 15:15 11/08/20 15:15 11/08/20 15:15 - Notes Notes: This is a 50-year-old female who appears much older than her stated age, no acute distress. Vital signs reviewed, please refer to chart. Head is normocephalic, atraumatic. Pupils equal round, reactive to light. Neck is supple without meningismus. Heart is regular rate and rhythm. Lungs are clear to auscultation bilaterally. Abdomen is soft, nontender, normoactive bowel sounds throughout. Extremities without cyanosis, clubbing. She has pitting edema to the thighs, more significant in the pretibial regions. Posterior calves are nontender. Peripheral pulses are equal. Skin is warm and dry. She is a stage I decubitus ulcer overlying the entire sacral region, with localized stage II measuring approximately 2 x 3 cm, with granulation tissue noted. No clear tunneling, although wound was not thoroughly probed. Patient is awake, alert, neurological exam is nonfocal. Course - Re-evaluation Re-evalutation: 11/08/20 17:46 Patient presents to the emergency department for evaluation. She laboratory investigations as ordered per protocol. Her blood pressures were borderline, but per patient they state in the 90s and 100s systolic chronically. She was given her regular dose of her oxycodone. Her laboratory investigations found her potassium to be markedly low at 2.2. She has T wave flattening on her EKG but otherwise her vitals are unremarkable. She is given both oral and IV potassium. Her magnesium was found to be mildly low as well so IV magnesium is ordered. Given her general state of debility as well as the severity of her electrolyte balance, I do believe that inpatient management is most appropriate. Will contact medicine for admission. 11/08/20 17:[address] Cannon, he will admit the patient for further care. - Vital Signs Vital signs: Temp Pulse Resp BP Pulse Ox 98.4 F 81 10 L 108/76 100 11/08/20 15:15 11/08/20 15:29 11/08/20 15:52 11/08/20 15:52 11/08/20 15:52 - Laboratory Results Result Diagrams: 11/08/20 15:39 11/08/20 15:39 Laboratory Results Interpreted: 11/08/20 11/08/20 11/08/20 15:39 15:39 15:39 RDW 16.3 H Plt Count 143 L Snyder % (Auto) 2.1 L Potassium 2.2 L* Est GFR (MDRD) Non-Af 56 L Lactic Acid 4.0 H Calcium 7.3 L Magnesium Direct Bilirubin 0.7 H AST 57 H ALT 42 H Alkaline Phosphatase 335 H Total Protein 5.5 L Albumin 2.3 L Urine Urobilinogen Leukocyte Esterase Rfl 11/08/20 11/08/20 15:39 15:39 RDW Plt Count Snyder % (Auto) Potassium Est GFR (MDRD) Non-Af Lactic Acid Calcium Magnesium 1.5 L Direct Bilirubin AST ALT Alkaline Phosphatase Total Protein Albumin Urine Urobilinogen 2.0 H Leukocyte Esterase Rfl LARGE H Critical Laboratory Results Reviewed: Yes Attending or Supervising Physician who Reviewed Labs: ИРИНА ASH - Radiology Results Radiology Results Interpreted: 11/08/20 17:48 Chest x-ray interpreted by myself without the aid of radiologist as showing no clear infiltrates, no acute cardiopulmonary disease. Critical Radiology Results Reviewed: No Critical Results - EKG Interpretation by Me Additional EKG results interpreted by me: 12/29/20 17:52 Sinus mechanism with a rate of 80 bpm, significant baseline artifact which makes interpretation difficult. Left axis deviation. Nonspecific T wave flattening, but no obvious ST elevation concerning for infarction. Discharge - Discharge Clinical Impression: Anasarca, Sacral decubitus ulcer, stage II, Generalized weakness, Hypokalemia, Hypomagnesemia, Lactic acid acidosis Condition: Stable Disposition: ADMITTED INPATIENT Admitting Provider: Ces[facility] Unit Admitted: IMCU Referrals: JOHN CANNON MD [Primary Care Provider] - Follow up as needed
[2020-11-08] MEDS ORDERED: POTASSIUM CHLORIDE 20 MEQ PACKET PO ONE (18:35)
[2020-11-08] MEDS: POTASSI CL 20 MEQ/50 ML RIDER 20 MEQ/50 ML RTUPB IV SCH ×3 (18:39→23:46)
[2020-11-08] MEDS ORDERED: POTASSIUM CHLORIDE 20 MEQ PACKET PO SCH (18:45)
[2020-11-08] MEDS ORDERED: ONDANSETRON 8 MG PO PRN (20:54)
[2020-11-08] MEDS ORDERED: (PENDING PHARMACY ID) (Sertraline Hcl [Sertraline Hcl] 100 MG Tablet) PO SCH (21:00)
[2020-11-08] MEDS ORDERED: MIDODRINE HCL 2.5 MG PO SCH (21:00)
[2020-11-08] MEDS ORDERED: ONDANSETRON 4 MG TAB.RAPDIS PO PRN (21:37)
[2020-11-08] MEDS: ENOXAPARIN SODIUM INJ 40 MG/0.4 ML DISP.SYRIN SUBCUT SCH (22:45)
[2020-11-08] MEDS: TOPIRAMATE 25 MG TABLET PO SCH (22:49)
[2020-11-08] MEDS: AMITRIPTYLINE HCL 50 MG TABLET PO SCH (22:49)
[2020-11-08] MEDS: LURASIDONE HCL 40 MG TABLET PO SCH (22:50)
[2020-11-08] MEDS: SERTRALINE HCL 50 MG TABLET PO SCH (22:50)
[2020-11-08] MEDS: MIDODRINE HCL 5 MG TABLET PO SCH (22:50)
[2020-11-08] MEDS: BENZTROPINE MESYLATE 1 MG TABLET PO SCH (22:50)
[2020-11-08] MEDS: GABAPENTIN 300 MG CAPSULE PO SCH (22:50)
[2020-11-09 00:10] LABS: INTERNATIONAL RATION (INR) 1.11; PROTHROMBIN TIME 14.5 SEC (11.4-15.4)
[2020-11-09] MEDS ORDERED: NORMAL SALINE 1000 ML 250 ML IV ONE (03:45)
[2020-11-09] MEDS ORDERED: MIDODRINE HCL 5 MG TABLET PO ONE (04:00)
[2020-11-09] MEDS: LEVOTHYROXINE SODIUM 0.088 MG TABLET PO SCH (05:01)
[2020-11-09] MEDS: PANTOPRAZOLE SODIUM 40 MG TABLET.DR PO SCH (05:02)
[2020-11-09] MEDS: MIDODRINE HCL 5 MG TABLET PO SCH ×4 (05:02→23:01)
[2020-11-09] MEDS: GABAPENTIN 300 MG CAPSULE PO SCH ×4 (05:02→23:01)
[2020-11-09] MEDS: DOPAMINE HCL 800 MG/D5W 250 ML IV PRN (08:23)
[2020-11-09 11:51] LABS: ALBUMIN 1.8 g/dL (3.5-5.0); ALKALINE PHOSPHATASE 304 U/L (38-126); ANION GAP 6 (5-19); ASPARTATE AMINO TRANSFERASE 50 U/L (14-36); BILIRUBIN,DIRECT 0.6 mg/dL (0.0-0.4); BILIRUBIN,TOTAL 1.3 mg/dL (0.2-1.3); BLOOD UREA NITROGEN 11 mg/dL (7-20); CALCIUM 7.1 mg/dL (8.4-10.2); CARBON DIOXIDE 22 mmol/L (22-30); CHLORIDE 111 mmol/L (98-107); GLUCOSE 95 mg/dL (75-110); POTASSIUM 3.5 mmol/L (3.6-5.0); TOTAL PROTEIN 4.5 g/dL (6.3-8.2)
[2020-11-09] MEDS: BENZTROPINE MESYLATE 1 MG TABLET PO SCH ×2 (14:01→22:58)
[2020-11-09] MEDS: TOPIRAMATE 25 MG TABLET PO SCH ×2 (14:01→22:58)
[2020-11-09] MEDS: AMITRIPTYLINE HCL 50 MG TABLET PO SCH (14:11)
[2020-11-09] MEDS: LURASIDONE HCL 40 MG TABLET PO SCH (14:11)
[2020-11-09] MEDS: ENOXAPARIN SODIUM INJ 40 MG/0.4 ML DISP.SYRIN SUBCUT SCH (14:12)
[2020-11-09] MEDS: SERTRALINE HCL 50 MG TABLET PO SCH ×2 (14:12→14:41)
[2020-11-09] MEDS: HYDROCORTISONE SOD SUCCINATE INJ/PF 100 MG/2 ML SDV IV SCH ×2 (14:41→23:11)
--- NOTE | 2020-11-09 17:12 | PDOC H&P ---
History of Present Illness Admission Date/PCP: 11/08/20 18:24 JOHN CANNON MD History of Present Illness: [place] is a 50 year old female, She has multiple comorbid conditions, she came to the emergency room for evaluation of generalized weakness in the emergency room she was unable to stand on her own according to the ER record, she was found to have profound hypokalemia she also has Sacrum decubital ulcer,She is chronically ill, there is history of chronic hypoalbuminemia, no particular etiology was found,, there is also a question of [employer] disease which I was never able to confirm in the office because she does not follow-up as recommended in the office to do this testing. Her blood pressure is chronically low, when I started seeing this patient in the office she was supposedly diagnosed with Joaquim disease and she was chronically on fludrocortisone with persistent hypokalemia and she was also taking multiple antihypertensive medication, I was able to work with her to get her off many of this medication for blood pressure she has chronic leg edema most likely from the chronic hypoalbuminemia, she is fond of taking diuretic though I tried to dissuade her from using diuretic because of the risk of hypokalemia. She is now presenting with hypokalemia with a serum potassium of 2.2. Fortunately on this admission she has no pneumonia. She continues to smoke cigarettes despite her chronic ill health Past Medical History Cardiac Medical History: Reports: Hyperlipidema - Corrected with gastric bypass, Hypertension - Corrected with gastric bypass Pulmonary Medical History: Reports: Chronic Obstructive Pulmonary Disease (COPD), Pneumonia Endocrine Medical History: Reports: Hypothyroidism Malignancy Medical History: Reports: Ovarian Cancer GI Medical History: Reports: Gastroesophageal Reflux Disease Musculoskeltal Medical History: Reports: Arthritis Psychiatric Medical History: Reports: Bipolar Disorder, Depression Hematology: Reports: Anemia Past Surgical History Past Surgical History: Reports: Cholecystectomy, Gastric Bypass Surgery, Hysterectomy, Orthopedic Surgery - LLE, left jaw, total left hip arthroplasty on 09/08/2018. Social History Smoking Status: Current Every Day Smoker Electronic Cigarette use?: No Frequency of Alcohol Use: None Hx Recreational Drug Use: No Drugs: None Hx Prescription Drug Abuse: No Family History Family History: DM, Hypertension Parental Family History Reviewed: Yes Children Family History Reviewed: Yes Sibling(s) Family History Reviewed.: Yes Medication/Allergy Home Medications: Amitriptyline HCl [Elavil 50 mg Tablet] 50 mg PO DAILY 12/09/19 Benztropine Mesylate [Cogentin 1 mg Tablet] 1 mg PO BID 12/09/19 Gabapentin [Neurontin 300 mg Capsule] 300 mg PO Q8 12/09/19 Lurasidone HCl [Latuda 40 mg Tablet] 40 mg PO DAILY 12/09/19 Sertraline HCl 50 mg PO DAILY 12/09/19 Levothyroxine Sodium [Synthroid 0.088 mg Tablet] 0.088 mg PO QAM 08/16/20 Ondansetron [Ondansetron Odt] 8 mg PO Q12HP PRN 08/16/20 Topiramate [Topamax 25 mg Tablet] 25 mg PO BID 08/16/20 Esomeprazole Magnesium 40 mg PO QAM 11/08/20 Furosemide [Lasix 40 mg Tablet] 40 mg PO QAM 11/08/20 Midodrine HCl 2.5 mg PO TID 11/08/20 Potassium Chloride 15 ml PO DAILY 11/08/20 Allergies/Adverse Reactions: cilastatin [From Primaxin IV] Allergy (Intermediate, Verified 09/22/19 11:16) Facial swelling imipenem [From Primaxin IV] Allergy (Intermediate, Verified 09/22/19 11:16) Facial swelling Penicillins Allergy (Mild, Verified 09/22/19 11:16) Generalized rash Sulfa (Sulfonamide Antibiotics) Allergy (Mild, Verified 09/22/19 11:16) Generalized rash Review of Systems Eyes: ABSENT: visual disturbances Ears: ABSENT: hearing changes Cardiovascular: ABSENT: chest pain, dyspnea on exertion, edema, orthropnea, palpitations Respiratory: ABSENT: cough, hemoptysis Gastrointestinal: ABSENT: abdominal pain, constipation, diarrhea, hematemesis, hematochezia, nausea, vomiting Genitourinary: ABSENT: dysuria, hematuria Musculoskeletal: ABSENT: joint swelling Integumentary: ABSENT: rash, wounds Neurological: PRESENT: focal weakness Psychiatric: PRESENT: depression Hematologic/Lymphatic: ABSENT: easy bleeding, easy bruising, lymphadenopathy Physical Exam Vital Signs: Temp Pulse Resp BP Pulse Ox 97.2 F 99 16 76/55 L 100 11/09/20 07:27 11/09/20 15:30 11/09/20 07:27 11/09/20 15:30 11/09/20 15:30 Intake & Output 11/08/20 11/09/20 11/10/20 06:59 06:59 06:59 Intake Total 1400 Balance 1400 Weight 48.4 kg General appearance: PRESENT: no acute distress Eye exam: PRESENT: PERRLA Respiratory exam: PRESENT: clear to auscultation rona Cardiovascular exam: PRESENT: +S1, +S2 GI/Abdominal exam: PRESENT: soft Neurological exam: PRESENT: alert Results Laboratory Results: 11/08/20 15:39 11/09/20 11:18 11/08/20 11/09/20 11/09/20 23:49 11:18 11:18 Sodium 139.1 Potassium 3.5 L D Chloride 111 H Carbon Dioxide 22 Anion Gap 6 BUN 11 Creatinine 0.73 Est GFR ( Amer) > 60 Glucose 95 Lactic Acid 2.0 1.1 Calcium 7.1 L Total Bilirubin 1.3 AST 50 H Alkaline Phosphatase 304 H Total Protein 4.5 L Albumin 1.8 L Impressions: Chest X-Ray 11/08/20 16:45 IMPRESSION: NO ACUTE RADIOGRAPHIC FINDING IN THE CHEST. Assessment & Plan - Diagnosis (1) Hypokalemia Is this a current diagnosis for this admission?: Yes Plan: She has profound hypokalemia, patient is on diuretic replenish this (2) Hypoalbuminemia Is this a current diagnosis for this admission?: Yes Plan: She has chronic hypoalbuminemia associated with edema of the legs and upper extremities, the etiology of the hypoalbuminemia is not clear, no history of nephrotic syndrome no history of documented liver disease (3) Sacral decubitus ulcer, stage II Is this a current diagnosis for this admission?: Yes - Time Time Spent: Greater than 70 Minutes Medications reviewed and adjusted accordingly: Yes Anticipated Discharge Disposition: Home, Self Care Anticipated Discharge Timeframe: within 72 hours
--- NOTE | 2020-11-09 17:36 | PDOC PROGRESS REPORT ---
Subjective Date:: 11/09/20 Subjective:: Patient was admitted primarily for the management of severe hypokalemia, last ni ght she developed persistent low blood pressure, she was started on dopamine. This afternoon she became altered mental status with persistent low blood pressure, she was started on stress dose hydrocortisone. Urinalysis demonstrated bacteriuria more than 100,000 that suggest infection Reason For Visit: SEVERE SYMPTOMATIC HYPOKALEMIA Physical Exam Vital Signs: Temp Pulse Resp BP Pulse Ox 97.2 F 99 16 76/55 L 100 11/09/20 07:27 11/09/20 15:30 11/09/20 07:27 11/09/20 15:30 11/09/20 15:30 Intake & Output 11/08/20 11/09/20 11/10/20 06:59 06:59 06:59 Intake Total 1400 Balance 1400 Weight 48.4 kg General appearance: PRESENT: no acute distress Eye exam: PRESENT: PERRLA Respiratory exam: PRESENT: clear to auscultation rona Cardiovascular exam: PRESENT: +S1, +S2 GI/Abdominal exam: PRESENT: soft Neurological exam: PRESENT: alert Results Laboratory Results: 11/08/20 15:39 11/09/20 11:18 11/08/20 11/09/20 11/09/20 23:49 11:18 11:18 Sodium 139.1 Potassium 3.5 L D Chloride 111 H Carbon Dioxide 22 Anion Gap 6 BUN 11 Creatinine 0.73 Est GFR ( Amer) > 60 Glucose 95 Lactic Acid 2.0 1.1 Calcium 7.1 L Total Bilirubin 1.3 AST 50 H Alkaline Phosphatase 304 H Total Protein 4.5 L Albumin 1.8 L Impressions: Chest X-Ray 11/08/20 16:45 IMPRESSION: NO ACUTE RADIOGRAPHIC FINDING IN THE CHEST. Assessment & Plan - Diagnosis (1) Hypokalemia Is this a current diagnosis for this admission?: Yes Plan: Improved serum potassium (2) Hypoalbuminemia Is this a current diagnosis for this admission?: Yes (3) Sacral decubitus ulcer, stage II Is this a current diagnosis for this admission?: Yes (4) Hypotension (arterial) Qualifiers: Hypotension type: unspecified hypotension type Qualified Code(s): I95.9 - Hypotension, unspecified Is this a current diagnosis for this admission?: Yes Plan: Start stress dose hydrocortisone, 100 mg IV every 8 continue dopamine (5) Altered mental status Qualifiers: Altered mental status type: somnolence Qualified Code(s): R40.0 - Somnolence Is this a current diagnosis for this admission?: Yes Plan: CT head negative,Patient responsive to verbal command - Time Time Spent with patient: 35 or more minutes Level of Care: IMCU Medications reviewed and adjusted accordingly: Yes Anticipated discharge: Home Anticipated DC Timeframe: Other - Plan Summary Plan Summary: [facility] was called because of concern for low blood pressure,, DP pulse was palpable, there was no loss of pulse,
--- NOTE | 2020-11-09 17:51 | RADIOLOGY REPORT (SQ) ---
EXAM DESCRIPTION: CT HEAD WITHOUT IMAGES COMPLETED DATE/TIME: 11/09/2020 2:37 pm REASON FOR STUDY: stroke like symptoms COMPARISON: 08/17/2020 TECHNIQUE: Axial images acquired through the brain without intravenous contrast. Images reviewed wi th bone, brain and subdural windows. Additional sagittal and coronal reconstructions were generated. Images stored on PACS. All CT scanners at this facility use dose modulation, iterative reconstruction, and/or weight based d osing when appropriate to reduce radiation dose to as low as reasonably achievable (ALARA). [facility]: Dose Right [facility]: CareDose [facility]: Dose Right [facility]: Teradose 4D [facility]: Smart [employer] RADIATION DOSE: CT Rad equipment meets quality standard of care and radiation dose reduction techniq ues were employed. CTDIvol: 53.2 mGy. DLP: 964 mGy-cm. mGy. LIMITATIONS: Artifact from patient's earrings obscure portions of the craniocervical junction FINDINGS: VENTRICLES: Normal size and contour. CEREBRUM: No masses. No hemorrhage. No midline shift. No evidence for acute infarction. Normal gra y/white matter differentiation. No areas of low density in the white matter. CEREBELLUM: No masses. No hemorrhage. No alteration of density. No evidence for acute infarction. EXTRAAXIAL SPACES: No fluid collections. No masses. ORBITS AND GLOBE: No intra- or extraconal masses. Normal contour of globe without masses. CALVARIUM: No fracture. PARANASAL SINUSES: No fluid or mucosal thickening. SOFT TISSUES: No mass or hematoma. OTHER: No other significant finding. IMPRESSION: No acute intracranial abnormality on noncontrast CT. EVIDENCE OF ACUTE STROKE: NO. COMMENT: Quality ID # [id number]: Final reports with documentation of one or more dose reduction techniques (e.g., Automated exposure control, adjustment of the mA and/or kV according to patient size, use of iterative reconstruction technique) TECHNICAL DOCUMENTATION: JOB ID: [id number] 2010 [employer]- All Rights Reserved Reading location - IP/workstation name: [email or web address]
[2020-11-09] MEDS ORDERED: AZTREONAM 1 GM in DEXTROSE 5%-WATER 100 ML IV SCH (18:30)
[2020-11-10 04:17] LABS: A TYPE INFLUENZA AG NEGATIVE (NEGATIVE); B INFLUENZA AG NEGATIVE (NEGATIVE)
[2020-11-10] MEDS: GABAPENTIN 300 MG CAPSULE PO SCH ×3 (05:54→21:19)
[2020-11-10] MEDS: MIDODRINE HCL 5 MG TABLET PO SCH ×3 (05:55→21:20)
[2020-11-10] MEDS: PANTOPRAZOLE SODIUM 40 MG TABLET.DR PO SCH (05:55)
[2020-11-10] MEDS: LEVOTHYROXINE SODIUM 0.088 MG TABLET PO SCH (05:57)
[2020-11-10] MEDS: AZTREONAM 1 GM in DEXTROSE 5%-WATER 100 ML IV SCH ×2 (06:33→16:48)
[2020-11-10] MEDS: HYDROCORTISONE SOD SUCCINATE INJ/PF 100 MG/2 ML SDV IV SCH ×3 (06:34→21:19)
[2020-11-10] MEDS: SERTRALINE HCL 50 MG TABLET PO SCH (09:20)
[2020-11-10] MEDS: ENOXAPARIN SODIUM INJ 40 MG/0.4 ML DISP.SYRIN SUBCUT SCH (09:20)
[2020-11-10] MEDS: AMITRIPTYLINE HCL 50 MG TABLET PO SCH (09:20)
[2020-11-10] MEDS: LURASIDONE HCL 40 MG TABLET PO SCH (09:20)
[2020-11-10] MEDS: BENZTROPINE MESYLATE 1 MG TABLET PO SCH ×2 (09:20→17:09)
[2020-11-10] MEDS: TOPIRAMATE 25 MG TABLET PO SCH ×2 (09:20→17:09)
--- NOTE | 2020-11-10 15:30 | NEURO WORKBENCH EEG REPORT ---
EEG Report Patient: Iris Matias ID: [id number] Referring Doctor: Franky Callaway MD DOS: 11/10/2020 Medications: elavilaztreonam, cogentin, lovenox, gabapentin, synthroid, latuda, midodrine, protonix, zoloft, dopamine, solu-cortef, topamax History This is a 50 year old right handed female with a history of stroke, gastric bypass, COPD, pneumonia, ulcers, GERD, ovarian cancer, surgery on jaw, hip, anxiety, schizophrenia, depression, bipolar disorder, liver failure, PEG tube, claustrophobia who was admitted with severe symptomatic hypokalemia. This EEG was requested for unresponsiveness. EEG Interpretation This EEG was recorded in the awake and drowsy states without clear delineation of state changes. The awake EEG is characterized by a disorganized background without a well-developed posterior dominant rhythm. The remainder of the background was characterized by a combination of theta and delta with some beta and alpha frequencies. There was significant artifact throughout the recording that impaired interpretation. There were frequent electrode pops in the frontal channels with positive phase reversals that appeared artefactual. There were occasional frontal-central spike and slow waves and sharp waves. There were rare posterior spikes. There were sharply contoured waveforms in the frontal-central regions that could not be clearly differentiated between vertex waves without clear state changes. There were no seizures noted. Photic stimulation resulted in no significant changes. The EKG showed a regular rhythm in the 90s. EEG Classification * Jose D and wave, frontal-central, occasional * Spikes, posterior, rare * Sharp waves, frontal-central, occasional * Generalized background slowing * Artifact EEG Impression This EEG is abnormal. The background slowing is consistent with diffuse cerebral dysfunction. The multifocal spikes and sharp waves suggest cortical irritability with potentially epileptiform foci. Treatment with antiepileptic medication may be considered if clinically indicated. Given the artifact noted, a repeat EEG may be considered. INTERPRETING NEUROLOGIST: Kimber Rider MD, [facility] Board Certified in Neurology, with special qualification in Child Neurology, and in Clinical Neurophysiology [facility]
[2020-11-10] MEDS: DOPAMINE HCL 800 MG/D5W 250 ML IV PRN (16:57)
--- NOTE | 2020-11-10 17:01 | PDOC PROGRESS REPORT ---
Subjective Date:: 11/10/20 Subjective:: Patient seen by the bedside, still stuporous but she woke up after a long while respond to questions, cannot completely rule out seizure, EEG was obtained, EEG showed spike and wave, frontocentral it was read as abnormal EEG, the background slowing is consistent with diffuse cerebral dysfunction. The multifocal spikes and sharp waves suggest cortical irritability with potentially epileptiform foci. MRI brain ordered Reason For Visit: SEVERE SYMPTOMATIC HYPOKALEMIA Physical Exam Vital Signs: Temp Pulse Resp BP Pulse Ox 97.6 F 84 15 97/68 L 100 11/10/20 07:39 11/10/20 10:00 11/10/20 04:00 11/10/20 10:00 11/10/20 10:00 Intake & Output 11/09/20 11/10/20 11/11/20 06:59 06:59 06:59 Intake Total 1400 271 Output Total 350 Balance 1400 -79 Weight 48.4 kg 51.2 kg 51.2 kg General appearance: PRESENT: no acute distress Respiratory exam: PRESENT: clear to auscultation rona Cardiovascular exam: PRESENT: +S1, +S2 GI/Abdominal exam: PRESENT: soft Neurological exam: PRESENT: altered Results Laboratory Results: 11/08/20 15:39 11/09/20 11:18 11/08/20 15:39 Catheterized Urine Urine Culture - Final Proteus Mirabilis Escherichia Coli Impressions: Chest X-Ray 11/08/20 16:45 IMPRESSION: NO ACUTE RADIOGRAPHIC FINDING IN THE CHEST. Head CT 11/09/20 00:00 IMPRESSION: No acute intracranial abnormality on noncontrast CT. EVIDENCE OF ACUTE STROKE: NO. Assessment & Plan - Diagnosis (1) Hypokalemia Is this a current diagnosis for this admission?: Yes Plan: Improved (2) Hypoalbuminemia Is this a current diagnosis for this admission?: Yes (3) Sacral decubitus ulcer, stage II Is this a current diagnosis for this admission?: Yes (4) Hypotension (arterial) Qualifiers: Hypotension type: unspecified hypotension type Qualified Code(s): I95.9 - Hypotension, unspecified Is this a current diagnosis for this admission?: Yes Plan: Improved patient still on dopamine and stress dose hydrocortisone (5) Altered mental status Qualifiers: Altered mental status type: somnolence Qualified Code(s): R40.0 - Somnolence Is this a current diagnosis for this admission?: Yes (6) Metabolic encephalopathy Is this a current diagnosis for this admission?: Yes Plan: She has metabolic encephalopathy with prolonged somnolence, EEG abnormal, potentially epileptiform foci cannot completely rule out. She may need lumbar puncture if she does not regain full consciousness, May try antiepileptic drug - Time Time Spent with patient: 35 or more minutes Level of Care: IMCU Medications reviewed and adjusted accordingly: Yes Anticipated discharge: Home Anticipated DC Timeframe: Other
[2020-11-10] MEDS ORDERED: PHENYTOIN SODIUM INJ/PF 250 MG/5 ML SDV IV ONE (17:03)
[2020-11-10] MEDS: AZTREONAM 1 GM in DEXTROSE 5%-WATER 50 ML IV SCH (17:47)
[2020-11-11] MEDS: AZTREONAM 1 GM in DEXTROSE 5%-WATER 50 ML IV SCH ×3 (02:25→17:45)
[2020-11-11] MEDS: GABAPENTIN 300 MG CAPSULE PO SCH ×3 (05:44→21:13)
[2020-11-11] MEDS: MIDODRINE HCL 5 MG TABLET PO SCH ×3 (05:44→21:14)
[2020-11-11] MEDS: PANTOPRAZOLE SODIUM 40 MG TABLET.DR PO SCH (05:45)
[2020-11-11] MEDS: HYDROCORTISONE SOD SUCCINATE INJ/PF 100 MG/2 ML SDV IV SCH ×3 (06:00→21:22)
[2020-11-11] MEDS: LEVOTHYROXINE SODIUM 0.088 MG TABLET PO SCH (06:01)
[2020-11-11] MEDS: BENZTROPINE MESYLATE 1 MG TABLET PO SCH ×2 (09:20→17:46)
[2020-11-11] MEDS: SERTRALINE HCL 50 MG TABLET PO SCH (09:20)
[2020-11-11] MEDS: TOPIRAMATE 25 MG TABLET PO SCH ×2 (09:20→17:46)
[2020-11-11] MEDS: AMITRIPTYLINE HCL 50 MG TABLET PO SCH (09:20)
[2020-11-11] MEDS: LURASIDONE HCL 40 MG TABLET PO SCH (09:21)
[2020-11-11] MEDS: ENOXAPARIN SODIUM INJ 40 MG/0.4 ML DISP.SYRIN SUBCUT SCH (09:22)
--- NOTE | 2020-11-11 17:27 | RADIOLOGY REPORT (SQ) ---
EXAM DESCRIPTION: MRI HEAD WITHOUT IMAGES COMPLETED DATE/TIME: 11/11/2020 2:14 pm REASON FOR STUDY: CVA COMPARISON: 09/09/2018 TECHNIQUE: Multiplanar imaging includes non-contrasted T1, T2, FLAIR, and diffusion with ADC map seq uences. Images stored on PACS. LIMITATIONS: Mild motion artifact. FINDINGS: ANATOMY: No anomalies. Normal vascular flow voids. Pituitary fossa normal. CSF SPACES: Normal in size and contour. No hemorrhage. CEREBRUM: Sulci and gyri normal in size and contour. Normal white matter signal on FLAIR imaging. No evidence of hemorrhage, mass, or extraaxial fluid collection. POSTERIOR FOSSA: No signal alteration. No hemorrhage. No edema, masses or mass effect. Internal haroon tory canals, cerebello-pontine angles, mastoids normal. DIFFUSION IMAGING: Negative for acute or sub-acute infarction. ORBITS: No masses. Globes normal. PARANASAL SINUSES: No fluid levels. Mucosa normal. OTHER: No other significant finding. IMPRESSION: NORMAL MRI OF THE BRAIN WITHOUT INTRAVENOUS GADOLINIUM CONTRAST. EVIDENCE OF ACUTE STROKE: NO. TECHNICAL DOCUMENTATION: JOB ID: [id number] [employer]- All Rights Reserved Reading location - IP/workstation name: [email or web address]
[2020-11-11] MEDS ORDERED: ACYCLOVIR SODIUM 500 MG in NORMAL SALINE 100 ML IV SCH ×2 (18:00→22:00)
[2020-11-11] MEDS ORDERED: ACYCLOVIR SODIUM INJ/PF 500 MG/10 ML SDV IV PRN ×2 (18:05→22:00)
[2020-11-11 18:45] LABS: HEMATOCRIT 39.3 % (36.0-47.0); HEMOGLOBIN 12.7 g/dL (12.0-15.5); MEAN CORPUSCULAR HGB CONC 32.4 g/dL (32.0-36.0); MEAN CORPUSCULAR VOLUME 90 fl (80-97); PLATELET COUNT 108 10^3/uL (150-450); RED BLOOD COUNT 4.39 10^6/uL (3.72-5.28); RED CELL DISTRIBUTION WIDTH 17.1 % (11.5-14.0); WHITE BLOOD COUNT 12.4 10^3/uL (4.0-10.5)
[2020-11-11 18:59] LABS: ALKALINE PHOSPHATASE 259 U/L (38-126); ANION GAP 7 (5-19); ASPARTATE AMINO TRANSFERASE 84 U/L (14-36); BILIRUBIN,DIRECT 0.7 mg/dL (0.0-0.4); BILIRUBIN,TOTAL 0.9 mg/dL (0.2-1.3); BLOOD UREA NITROGEN 22 mg/dL (7-20); CALCIUM 7.7 mg/dL (8.4-10.2); CARBON DIOXIDE 19 mmol/L (22-30); CHLORIDE 115 mmol/L (98-107); GLUCOSE 87 mg/dL (75-110); POTASSIUM 5.2 mmol/L (3.6-5.0); TOTAL PROTEIN 4.9 g/dL (6.3-8.2)
[2020-11-11 19:32] LABS: ABSOLUTE LYMPHOCYTES# (MANUAL) 1.2 10^3/uL (0.5-4.7); ABSOLUTE MONOCYTES # (MANUAL) 0.6 10^3/uL (0.1-1.4); ANISOCYTOSIS 1+; BASOPHILS % (MANUAL) 0 % (0-2); EOSINOPHILS % (MANUAL) 0 % (0-6); LYMPHOCYTES % (MANUAL) 10 % (13-45); MONOCYTES % (MANUAL) 5 % (3-13); PLATELET COMMENT DECREASED; SEGMENTED NEUTROPHILS % (MAN) 85 % (42-78); TOTAL CELLS COUNTED 100
[2020-11-11 19:33] LABS: POLYCHROMASIA SLIGHT
[2020-11-11] MEDS: DOPAMINE HCL 800 MG/D5W 250 ML IV PRN (21:39)
--- NOTE | 2020-11-11 21:54 | PDOC PROGRESS REPORT ---
Subjective Date:: 11/11/20 Subjective:: Patient with altered mental status very somnolent, she is alert she is trying to speak but she is able to express herself, she has expressive dysphasia, MRI brain was negative, EEG was abnormal, she will need a lumbar puncture. She will empirically be treated with IV acyclovir for potential herpes encephalitis until proven otherwise Reason For Visit: SEVERE SYMPTOMATIC HYPOKALEMIA Physical Exam Vital Signs: Temp Pulse Resp BP Pulse Ox 98.7 F 87 14 96/52 L 99 11/11/20 20:00 11/11/20 20:00 11/11/20 20:00 11/11/20 20:00 11/11/20 20:00 Intake & Output 11/10/20 11/11/20 11/12/20 06:59 06:59 06:59 Intake Total 271 203 250 Output Total 350 870 Balance -79 -667 250 Weight 51.2 kg 51.2 kg General appearance: PRESENT: no acute distress Eye exam: PRESENT: PERRLA Respiratory exam: PRESENT: clear to auscultation rona Cardiovascular exam: PRESENT: +S1, +S2 GI/Abdominal exam: PRESENT: soft Neurological exam: PRESENT: alert Results Laboratory Results: 11/11/20 18:13 11/11/20 18:13 11/11/20 11/11/20 18:13 18:13 WBC 12.4 H RBC 4.39 Hgb 12.7 Hct 39.3 MCV 90 MCH 29.0 MCHC 32.4 RDW 17.1 H Plt Count 108 L Seg Neutrophils % Not Reportable Sodium 141.4 Potassium 5.2 H Chloride 115 H Carbon Dioxide 19 L Anion Gap 7 BUN 22 H Creatinine 1.19 Est GFR ( Amer) 58 L Glucose 87 Calcium 7.7 L Total Bilirubin 0.9 AST 84 H Alkaline Phosphatase 259 H Total Protein 4.9 L Albumin 2.0 L Impressions: Chest X-Ray 11/08/20 16:45 IMPRESSION: NO ACUTE RADIOGRAPHIC FINDING IN THE CHEST. Head CT 11/09/20 00:00 IMPRESSION: No acute intracranial abnormality on noncontrast CT. EVIDENCE OF ACUTE STROKE: NO. Head MRI 11/11/20 00:00 IMPRESSION: NORMAL MRI OF THE BRAIN WITHOUT INTRAVENOUS GADOLINIUM CONTRAST. EVIDENCE OF ACUTE STROKE: NO. Assessment & Plan - Diagnosis (1) Hypokalemia Is this a current diagnosis for this admission?: Yes Plan: She was originally admitted for hypokalemia with generalized weakness but the potassium is now corrected (2) Hypoalbuminemia Is this a current diagnosis for this admission?: Yes (3) Sacral decubitus ulcer, stage II Is this a current diagnosis for this admission?: Yes (4) Hypotension (arterial) Qualifiers: Hypotension type: unspecified hypotension type Qualified Code(s): I95.9 - Hypotension, unspecified Is this a current diagnosis for this admission?: Yes Plan: Patient still on dopamine and IV hydrocortisone blood pressure in the late 90s (5) Altered mental status Qualifiers: Altered mental status type: somnolence Qualified Code(s): R40.0 - Somnolence Is this a current diagnosis for this admission?: Yes (6) Metabolic encephalopathy Is this a current diagnosis for this admission?: Yes Plan: EEG is abnormal, MRI brain is normal, she will be scheduled for lumbar puncture (7) UTI (urinary tract infection) Qualifiers: Urinary tract infection type: acute cystitis Is this a current diagnosis for this admission?: Yes Plan: Continue IV aztreonam - Time Time Spent with patient: 35 or more minutes Level of Care: IMCU Medications reviewed and adjusted accordingly: Yes Anticipated discharge: [facility] Anticipated DC Timeframe: within 48 hours
[2020-11-12 00:13] LABS: INTERNATIONAL RATION (INR) 1.12; PARTIAL THROMBOPLASTIN TIME 28.3 SEC (23.5-35.8); PROTHROMBIN TIME 14.6 SEC (11.4-15.4)
[2020-11-12 00:22] LABS: GLUCOSE,CSF 75 mg/dL (40-70); PROTEIN,CSF 107 mg/dL (12-60)
[2020-11-12 00:41] LABS: APPEARANCE ALL TUBES CLEAR; COLOR ALL TUBES COLORLESS; CSF TUBE NUMBER 3; VOLUME TUBE 1 0.8 CC
[2020-11-12 00:42] LABS: CSF TOTAL VOLUME 3.8 CC; RED BLOOD CELL,CSF 91 /uL (0-10)
[2020-11-12 00:43] LABS: WHITE BLOOD CELL,CSF 0 /uL (0-5)
[2020-11-12] MEDS ORDERED: FUROSEMIDE INJ/PF 20 MG/2 ML SDV ONE (05:05)
[2020-11-12] MEDS: HYDROCORTISONE SOD SUCCINATE INJ/PF 100 MG/2 ML SDV IV SCH (05:39)
[2020-11-12] MEDS: MIDODRINE HCL 5 MG TABLET PO SCH (05:40)
[2020-11-12] MEDS: PANTOPRAZOLE SODIUM 40 MG TABLET.DR PO SCH (05:40)
[2020-11-12] MEDS: GABAPENTIN 300 MG CAPSULE PO SCH (05:40)
[2020-11-12] MEDS: AZTREONAM 1 GM in DEXTROSE 5%-WATER 50 ML IV SCH ×2 (05:41→10:23)
[2020-11-12] MEDS: LEVOTHYROXINE SODIUM 0.088 MG TABLET PO SCH (05:41)
[2020-11-12 05:53] LABS: ARTERIAL BLOOD BASE EXCESS -8.3 mmol/L; ARTERIAL BLOOD H2CO3 1.31 mmol/L (1.05-1.35); ARTERIAL BLOOD HCO3 18.6 mmol/L (20-24); ARTERIAL BLOOD O2 SATURATION 84.1 % (94-98); ARTERIAL BLOOD PCO2 43.4 mmHg (35-45); ARTERIAL BLOOD PH 7.25 (7.35-7.45); ARTERIAL BLOOD PO2 55.6 mmHg (80-100); ARTERIAL BLOOD TOTAL CO2 19.9 mmol/L (21-25)
[2020-11-12 06:00] LABS: ARTERIAL BLOOD FIO2 15
[2020-11-12] MEDS: RINGERS SOLUTION,LACTATED 1,000 ML IV PRN ×3 (06:03→16:34)
[2020-11-12] MEDS ORDERED: RINGERS SOLUTION,LACTATED 500 ML IV ONE (06:30)
[2020-11-12] MEDS ORDERED: FUROSEMIDE INJ/PF 20 MG/2 ML SDV IV ONE ×2 (06:30)
[2020-11-12 06:53] LABS: ALBUMIN 1.9 g/dL (3.5-5.0); ALKALINE PHOSPHATASE 262 U/L (38-126); ANION GAP 9 (5-19); ASPARTATE AMINO TRANSFERASE 102 U/L (14-36); BILIRUBIN,DIRECT 0.6 mg/dL (0.0-0.4); BILIRUBIN,TOTAL 0.8 mg/dL (0.2-1.3); BLOOD UREA NITROGEN 24 mg/dL (7-20); CALCIUM 7.8 mg/dL (8.4-10.2); CARBON DIOXIDE 17 mmol/L (22-30); CHLORIDE 116 mmol/L (98-107); GLUCOSE 84 mg/dL (75-110); PHOSPHORUS 5.2 mg/dL (2.5-4.5); POTASSIUM 5.4 mmol/L (3.6-5.0); TOTAL PROTEIN 4.6 g/dL (6.3-8.2)
[2020-11-12 06:58] LABS: HEMATOCRIT 41.1 % (36.0-47.0); HEMOGLOBIN 12.7 g/dL (12.0-15.5); MEAN CORPUSCULAR HEMOGLOBIN 28.1 pg (27.0-33.4); MEAN CORPUSCULAR HGB CONC 30.9 g/dL (32.0-36.0); MEAN CORPUSCULAR VOLUME 91 fl (80-97); PLATELET COUNT 151 10^3/uL (150-450); RED BLOOD COUNT 4.52 10^6/uL (3.72-5.28); RED CELL DISTRIBUTION WIDTH 16.9 % (11.5-14.0); WHITE BLOOD COUNT 14.2 10^3/uL (4.0-10.5)
[2020-11-12] MEDS ORDERED: RINGERS SOLUTION,LACTATED 1,000 ML IV ONE (07:15)
[2020-11-12 07:16] LABS: ABSOLUTE LYMPHOCYTES# (MANUAL) 0.7 10^3/uL (0.5-4.7); ABSOLUTE MONOCYTES # (MANUAL) 0.4 10^3/uL (0.1-1.4); BASOPHILS % (MANUAL) 0 % (0-2); EOSINOPHILS % (MANUAL) 0 % (0-6); LYMPHOCYTES % (MANUAL) 5 % (13-45); MONOCYTES % (MANUAL) 3 % (3-13); SEGMENTED NEUTROPHILS % (MAN) 92 % (42-78); TOTAL CELLS COUNTED 100
[2020-11-12 07:19] LABS: ANISOCYTOSIS 1+; OVALOCYTES 1+; PLATELET COMMENT ADEQUATE; POIKILOCYTOSIS 1+; TEAR DROP CELLS SLIGHT; TOXIC GRANULATION SLIGHT
[2020-11-12] MEDS ORDERED: NORMAL SALINE INJ/PF 0.9% 10 ML SDV IV PRN (07:21)
--- NOTE | 2020-11-12 07:40 | RADIOLOGY REPORT (SQ) ---
CLINICAL HISTORY: chest congestion and decreased spo2 COMPARISON: 11/08/2020. TECHNIQUE: XR CHEST 1 VIEW 11/12/2020 12:00 AM BELL CLERK FINDINGS: The heart is borderline in size. There is extensive airspace disease in the right upper lobe and much of the left mid and lower lung. There is no pleural effusion. There is no pneumothorax. There are no acute osseous findings. IMPRESSION: Extensive bilateral pneumonia.
--- NOTE | 2020-11-12 08:16 | Operative Report ---
Bedside Procedure - History of Present Illness Indication for Procedure: COATER HAND, profound hypovolemia, lack of IV access, pe rsistent hypotension Provider: STAR RENEE - Central Line Right Internal jugular Time completed: 06:30 Consent obtained: No - Emergent medical necessity during COATER HAND Central line pre-insertion: Sterile PPE donned, Chloraprep applied, Sterile drapes applied Central line size (Fr.): 7 Central line lumen type: Triple Anesthetic type: 1% Lidocaine mL's of anesthesia: 3 Ultrasound guided: Yes CM at insertion site: 20 Line secured with sutures: Yes Central line post-insertion: Blood return from lumens, Biopatch applied, Sutured, Sterile dressing applied, Position confirmed w/ CXR Number of attempts: 1 Complications: No Notes: 11/12/20 07:34 PROCEDURE: CENTRAL LINE INSERTION INDICATION: LACK OF IV ACCESS WITH PROFOUND HYPOVOLEMIA, PERSISTENT HYPOTENSION ON DOPAMINE PROCEDURALIST: ALIA OWENS COMPLICATIONS: NONE Patient placed in proper procedural position followed by prepping and draping in usual sterile fashion. Sterile bouffant cap, mask, gown, and gloves were donned and worn throughout the procedure. Utilizing ultrasound with a sterile probe cover, the right internal jugular vein was identified and noted to be free of thrombus from the angle of the mandible down to the clavicle. The right internal jugular vein was completely collapsing with changes in intrathoracic pressure while the patient was in Trendelenburg position, consistent with hypovolemia. The dermis was then anesthetized with 3 mL of 1% lidocaine. Next, a 20-gauge introducer needle with attached syringe under negative pressure was visualized entering the right internal jugular vein via ultrasound with a return of blood in the syringe. The syringe was detached from the needle, noting a slow passive dripping of blood from the distal end of the needle. A guide wire was then advanced through the introducer needle into the right internal jugular vein and the needle was removed. The guide wire was confirmed to be in the right internal jugular vein in two views via ultrasound. A small skin stab incision was made on top of the wire to prepare for dilation. Next, a dilator was passed over the wire to dilate subcutaneous tissue and was subsequently removed. A 7 Swedish 20 cm catheter was then advanced over the wire into the right internal jugular vein and the guide wire was then removed, again noting a slow passive dripping of blood from the distal lumen of the catheter. Positive pressure caps were applied and all lumens aspirated and flushed easily. The catheter was secured at 20 cm at the skin, a Biopatch was applied, a sterile occlusive transparent dressing was applied. A chest x-ray was obtained demonstrating successful placement in the SVC without any evidence of pneumothorax. Patient tolerated the procedure well on noninvasive ventilation. The fluid bolus was able to be administered once the line was in place noting a significant improvement in the patient's hemodynamic status. 11/12/20 08:15
--- NOTE | 2020-11-12 08:34 | Progress Note ---
Provider Note Provider Note: Patient INSIDE TESTER for which Dr Richmond responded. I was later asked to evaluate the patient for possible need for endotracheal intubation. On arrival, I was informed patient SPO2 was 63% prior to nasotracheal suction for which a moderate amount of secretions were obtained per the RN. SPO2 75% and increasing. Patient with moderate inspiratory accessory muscle use and tachypnea RR 30's. I applied non-invasive ventilation to ease work of breathing and in case patient hypercapnic while awaiting ABG results. Her work of breathing improved, though remains tachypneic RR 30 and Vt achieved on IPAP 18 EPAP 8 is 360-400 mL. Mental status slightly improving. CXR obtained with multifocal pneumonia appearance, no pulmonary edema per my read. Patient also hypotensive on 10 mcg/kg/min of Dopamine via the only IV, a 22 gauge in the right wrist. The patient had just received IV Lasix. It didn't make sense to me that the patient was so hypotensive on Dopamine and it seemed the patient was possibly tachypneic to balance the pH for metabolic acidosis. Therefore, I offered my assistance in evaluating cardiac function and volume status. [id number] ultrasound performed demonstrating profound hypovolemia and no significant ventricular wall motion abnormalities. Respirophasic changes of both ventricles was noted as well as bilateral flat internal jugular veins. Assessment: Acute respiratory failure due to hypoxia Multifocal pneumonia Metabolic acidosis Hypovolemia Hypotension requiring vasopressor therapy Altered mental status which could be from hypotension, hypoxia, or sepsis Probable severe sepsis (leukocytosis + tachypnea + resp failure) Adrenal insufficiency, on steroids Plan: -Apply NIV 100% IPAP 18 EPAP 8, wean FiO2 off SPO2 thereafter. -1L LR bolus administered with improvement in BP. Recommend maintenance infusion already ordered thereafter now that patient has plenty of IV access. -If it is felt the patient is septic, then patient will require an additional 569 mL to have achieved 30 ml/kg. -Patient does not require intubation at this time. Continue non-invasive support for now. -If patient experiences hypotension following fluid administration or her respiratory status worsens, she may need to be admitted to ICU. -I recommend checking a lactic acid level. -Continue Aztreonam, but patient may needed broadened empiric coverage. Disposition: Continue 5th floor telemetry with continuous pulse oximetry for now since her BP has improved and work of breathing decreased. Please consult ICU if patient condition worsens. Total critical care time spent independent of procedure was 50 minutes assessing/re-assessing patient, reviewing lab work, interpreting portable CXR while standing at bedside, performing [id number] ultrasound, and developing/coordinating plan of care in conjunction with the INSIDE TESTER steam roller operator, Dr Richmond. I discussed the above with Dr Ivy, Vacuum Worker.
--- NOTE | 2020-11-12 08:44 | RADIOLOGY REPORT (SQ) ---
EXAM DESCRIPTION: CHEST SINGLE VIEW IMAGES COMPLETED DATE/TIME: 11/12/2020 7:48 am REASON FOR STUDY: central line placement COMPARISON: Earlier the same day. NUMBER OF VIEWS: One view. TECHNIQUE: Single frontal radiographic image of the chest acquired. LIMITATIONS: None. FINDINGS: LUNGS AND PLEURA: No significant change. No pneumothorax. MEDIASTINUM AND HEART: Stable heart size and mediastinal structures. SUPPORT DEVICES: Interval placement of right-sided central line tip overlying cavoatrial junction. BONY STRUCTURES: No acute findings. HARDWARE: None. OTHER: No other significant finding. IMPRESSION: Satisfactory central line placement. No pneumothorax. Reading location - IP/workstation name: [email or web address]
[2020-11-12] MEDS: BENZTROPINE MESYLATE 1 MG TABLET PO SCH (10:15)
[2020-11-12] MEDS: AMITRIPTYLINE HCL 50 MG TABLET PO SCH (10:15)
[2020-11-12] MEDS: LURASIDONE HCL 40 MG TABLET PO SCH (10:16)
[2020-11-12] MEDS: SERTRALINE HCL 50 MG TABLET PO SCH (10:16)
[2020-11-12] MEDS: TOPIRAMATE 25 MG TABLET PO SCH (10:16)
[2020-11-12] MEDS: ENOXAPARIN SODIUM INJ 40 MG/0.4 ML DISP.SYRIN SUBCUT SCH (10:22)
--- NOTE | 2020-11-12 10:24 | RADIOLOGY REPORT (SQ) ---
EXAM DESCRIPTION: LUMBAR PUNCTURE IMAGES COMPLETED DATE/TIME: 11/11/2020 10:47 pm REASON FOR STUDY: unexplain encephalopathy COMPARISON: MRI dated 11/11/2020. FLUOROSCOPY TIME: 3 second 1 images saved to PACS. TECHNIQUE: Fluoroscopic guided lumbar puncture. LIMITATIONS: None. PROCEDURE: After written consent and assessment were obtained, the patient was brought into the fluo roscopy room and placed prone on the table. The patient's lower back was prepped in a sterile fashio n and an entry site was selected under live fluoroscopic guidance. The entry site was anesthetized wi th 1% lidocaine. A 22 gauge needle was advanced through the skin and into the thecal sac at the level of L3-L4. Opening pressure was recorded at 18. After approximately 4 ml was drained, the needle was removed and a sterile bandage was placed of the site. Closing pressure 16. Specimens were sent to t lab for testing. A fluoroscopic spot image was saved to PACS confirming level access. FINDINGS: Clear CSF IMPRESSION: Lumbar puncture under fluoroscopy. No immediate complication. COMMENT: Patient medication list reviewed: Yes- Quality ID# [id number]:Eligible professional attests to doc umenting in the medical record they obtained, updated, or reviewed the patient's current medications. . Quality ID 145: Final reports for procedures using fluoroscopy that document radiation exposure ayad britt, or exposure time and number of fluorographic images (if radiation exposure indices are not avail able) TECHNICAL DOCUMENTATION: JOB ID: [id number] 2010 [employer]- All Rights Reserved Reading location - IP/workstation name: [email or web address]
[2020-11-12] MEDS ORDERED: ACYCLOVIR SODIUM 500 MG in NORMAL SALINE 100 ML IV SCH (11:00)
[2020-11-12] MEDS ORDERED: PHARMACY COMMUNICATION ORDER MC NR (11:30)
[2020-11-12] MEDS ORDERED: CALCIUM GLUCONATE 1000 MG/10 ML INJ IV ONE (11:32)
[2020-11-12] MEDS ORDERED: ETOMIDATE INJ/PF 20 MG/10 ML SDV IV ONE (11:57)
[2020-11-12] MEDS ORDERED: SUCCINYLCHOLINE CHLORIDE INJ 200 MG/10 ML VIAL ONE (11:57)
[2020-11-12] MEDS ORDERED: MIDODRINE HCL 5 MG TABLET NG SCH (12:15)
[2020-11-12] MEDS ORDERED: HYDROCORTISONE SOD SUCCINATE INJ 500 MG/4 M VIAL IV ONE (12:15)
--- NOTE | 2020-11-12 12:26 | Progress Note ---
Provider Note Provider Note: I was asked again by Dr. Joseph to see patient for consideration of pressor changes and possible move to ICU. The pt is obtunded and not responsive which does make her a set up for aspiration. However with BP of 80/40 and a MAP of 57 this would also be dangerous. I spoke with Dr. 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 This is not possible at [facility]. Her normal BP is 100/50 as far as we know. 80/40 and MAP of 50 is not that far removed. Within 20% of baseline. She is very low on albumin. She is profoundly dry by Jd Galeas's U/S last night. She has been given Lasix which not only is not advised in this scenario but makes her actual U/O in question. Until a transfer to a neurologist can be arranged I suggest the following: Temporarily raise her albumin by giving it IV x $ Large bolus dose of solucortef-[address] NG for administration of Midodrine and pysch meds. Try off bipap to lessen aspiration risk. Continue with volume loading. Pt does not appear septic.
[2020-11-12] MEDS ORDERED: ONDANSETRON 4 MG TAB.RAPDIS NG PRN (12:30)
[2020-11-12] MEDS: ALBUMIN HUMAN 12.5 GM/50 ML RTUINJ IV SCH ×4 (12:46→15:13)
--- NOTE | 2020-11-12 12:49 | RADIOLOGY REPORT (SQ) ---
EXAM DESCRIPTION: CHEST SINGLE VIEW IMAGES COMPLETED DATE/TIME: 11/12/2020 12:09 pm REASON FOR STUDY: NG Tube Placement COMPARISON: Earlier the same day. NUMBER OF VIEWS: One view. TECHNIQUE: Single frontal radiographic image of the chest acquired. LIMITATIONS: None. FINDINGS: LUNGS AND PLEURA: Stable appearance. MEDIASTINUM AND HEART: Stable heart size and mediastinal structures. SUPPORT DEVICES: Interval placement of nasogastric tube tip overlying the gastric antrum. BONY STRUCTURES: No acute findings. HARDWARE: None. OTHER: No other significant finding. IMPRESSION: Nasogastric tube in the stomach. Reading location - IP/workstation name: [email or web address]
--- NOTE | 2020-11-12 13:21 | PDOC TRANSFER SUMMARY ---
General Admission Date/PCP: 11/08/20 18:24 JOHN CANNON MD Admission Date: 11/08/20 Transfer Date: 11/12/20 Accepting Facility: [facility] Resuscitation Status: Full Code - Transfer Diagnosis (1) Hypokalemia Is this a current diagnosis for this admission?: Yes (2) Hypoalbuminemia Is this a current diagnosis for this admission?: Yes (3) Sacral decubitus ulcer, stage II Is this a current diagnosis for this admission?: Yes (4) Hypotension (arterial) Is this a current diagnosis for this admission?: Yes (5) Altered mental status Is this a current diagnosis for this admission?: Yes (6) Metabolic encephalopathy Is this a current diagnosis for this admission?: Yes (7) UTI (urinary tract infection) Is this a current diagnosis for this admission?: Yes (8) Generalized weakness Is this a current diagnosis for this admission?: Yes - Transfer Medications Home Medications: Amitriptyline HCl [Elavil 50 mg Tablet] 50 mg PO DAILY 12/09/19 Benztropine Mesylate [Cogentin 1 mg Tablet] 1 mg PO BID 12/09/19 Gabapentin [Neurontin 300 mg Capsule] 300 mg PO Q8 12/09/19 Lurasidone HCl [Latuda 40 mg Tablet] 40 mg PO DAILY 12/09/19 Sertraline HCl 50 mg PO DAILY 12/09/19 Levothyroxine Sodium [Synthroid 0.088 mg Tablet] 0.088 mg PO QAM 08/16/20 Ondansetron [Ondansetron Odt] 8 mg PO Q12HP PRN 08/16/20 Topiramate [Topamax 25 mg Tablet] 25 mg PO BID 08/16/20 Esomeprazole Magnesium 40 mg PO QAM 11/08/20 Furosemide [Lasix 40 mg Tablet] 40 mg PO QAM 11/08/20 Midodrine HCl 2.5 mg PO TID 11/08/20 Potassium Chloride 15 ml PO DAILY 11/08/20 Transfer Medications: Current Medications Amitriptyline HCl (Amitriptyline Hcl 50 Mg Tablet) 50 mg NG DAILY [facility] Stop: 12/08/20 22:29 Benztropine Mesylate (Benztropine Mesylate 1 Mg Tablet) 1 mg NG BID [facility] Stop: 12/08/20 22:29 Enoxaparin Sodium (Enoxaparin Sodium Inj 40 Mg/0.4 Ml Disp.Syrin) 40 mg SUBCUT DAILY [facility] Stop: 12/08/20 22:29 Last Admin: 11/12/20 10:22 Dose: 40 mg Documented by: Gabapentin (Gabapentin 300 Mg Capsule) 300 mg NG Q8 [facility] Stop: 12/08/20 22:29 Heparin Sodium (Porcine) (Heparin Sod (Porcine) 10 Unit/Ml 5 Ml Disp.Syrg) 30 unit IV Q8 [facility] Stop: 12/12/20 13:59 Heparin Sodium (Porcine) (Heparin Sod (Porcine) 10 Unit/Ml 5 Ml Disp.Syrg) 30 unit IV .AFTER EACH USE PRN PRN Reason: AFTER EACH INTERMITTENT USE Stop: 12/12/20 07:20 Hydrocortisone Sodium Succinate (Hydrocortisone Sod Succinate Inj/Pf 100 Mg/2 Ml Sdv) 100 mg IV Q8 [facility] Stop: 12/12/20 13:59 Dopamine HCl/Dextrose (Dopamine Rtu 800 Mg-D5w 250 Ml (Adult) Premix) 800 mg in 250 mls @ 4.538 mls/hr IV CONTINUOUS PRN; Protocol PRN Reason: THIS MED IS NOT "PRN" Stop: 12/09/20 08:16 Last Admin: 11/11/20 21:39 Dose: 10 mcg/kg/min, 9.08 mls/hr Documented by: Aztreonam 1 gm/ Dextrose 50 mls @ 100 mls/hr IV Q8A [facility] Stop: 11/16/20 18:29 Last Admin: 11/12/20 10:23 Dose: 100 mls/hr Documented by: Lactated Ringer's (Lactated Ringers 1000 Ml Iv Soln) 1,000 mls @ 100 mls/hr IV CONTINUOUS PRN PRN Reason: THIS MED IS NOT "PRN" Stop: 12/10/20 11:40 Last Admin: 11/12/20 07:08 Dose: 100 mls/hr Documented by: Acyclovir Sodium 500 mg/ (Sodium Chloride) 110 mls @ 110 mls/hr IV Q8A [facility] Stop: 11/19/20 10:59 Last Admin: 11/12/20 12:40 Dose: 110 mls/hr Documented by: Albumin Human (Albuminar-25 Rtu Inj 12.5 Gm/50 Ml Premix) 12.5 gm in 50 mls @ 50 mls/hr IV Q1H [facility] Stop: 11/12/20 16:29 Last Admin: 11/12/20 12:46 Dose: 50 mls/hr, 50 mls/hr Documented by: Calcium Gluconate (Calcium Gluconate Rtu 1 Gm/50 Ml) 1 gm in 50 mls @ 50 mls/hr IV Q1H [facility] Stop: 11/12/20 14:59 Levothyroxine Sodium (Levothyroxine Sodium 0.088 Mg Tablet) 0.088 mg NG Q6AM [facility] Stop: 12/09/20 05:59 Lurasidone HCl (Lurasidone Hcl 40 Mg Tablet) 40 mg PO DAILY [facility] Stop: 12/08/20 22:29 Last Admin: 11/12/20 10:16 Dose: Not Given Documented by: Midodrine (Midodrine Hcl 5 Mg Tablet) 10 mg NG Q8 [facility] Stop: 12/12/20 12:14 Last Admin: 11/12/20 12:46 Dose: 10 mg Documented by: Ondansetron HCl (Ondansetron 4 Mg Tab.Rapdis) 8 mg NG Q12HP PRN PRN Reason: FOR NAUSEA Stop: 12/08/20 21:36 Pantoprazole Sodium (Pantoprazole Sodium 40 Mg Packet.Dr) 40 mg GT Q6AM [facility] Stop: 12/13/20 05:59 Pharmacy Profile Note (Pharmacy Communication Order) 1 each .NOTICE NR Stop: 12/12/20 11:29 Sertraline HCl (Sertraline Hcl 50 Mg Tablet) 50 mg NG DAILY [facility] Stop: 12/08/20 22:29 Sodium Chloride (Normal Saline Flush 2.5 Ml Disp.Syrin) 2.5 ml IV Q8 [facility] Stop: 12/09/20 19:44 Last Admin: 11/12/20 05:39 Dose: 2.5 ml Documented by: Sodium Chloride (Normal Saline Inj/Pf 0.9% 10 Ml Sdv) 10 ml IV .AFTER EACH USE PRN PRN Reason: AFTER EACH INTERMITTENT USE Stop: 12/12/20 07:20 Topiramate (Topiramate 25 Mg Tablet) 25 mg NG BID [facility] Stop: 12/08/20 22:29 - Allergies Allergies/Adverse Reactions: cilastatin [From Primaxin IV] Allergy (Intermediate, Verified 09/22/19 11:16) Facial swelling imipenem [From Primaxin IV] Allergy (Intermediate, Verified 09/22/19 11:16) Facial swelling Penicillins Allergy (Mild, Verified 09/22/19 11:16) Generalized rash Sulfa (Sulfonamide Antibiotics) Allergy (Mild, Verified 09/22/19 11:16) Generalized rash Hospital Course Hospital Course: Patient 50-year-old female she came to the emergency room on November 08, 2020 for evaluation of generalized weakness, she was unable to stand on her own, the lab work that was done in the emergency room demonstrated severe hypokalemia, the serum potassium was 2.2, this was felt to be the cause of the generalized weakness. She is chronically ill with a history of unexplained chronic hy poalbuminemia, she has no history of nephrotic syndrome, no documented history of liver disease, no history of alcohol abuse, she also has a history of questionable [place] disease which was never confirmed. On admission the blood pressure recorded was about 90 systolic she has chronically low blood pressure and she uses midodrine on a regular basis. The blood pressure dropped to below 70 requiring vasopressin, she was started on dopamine and also stress dose hydrocortisone 100 mg IV every 8 hours. The urinalysis was grossly abnormal with bacteriuria the culture was growing gram-negative rods, she was started on aztreonam, she has a long history of allergy to penicillin, sulfa drugs, imip enem. She was unresponsive 24 hours after hospital admission, she does not respond to verbal stimulus she does grimaces on sternal pressure CAT scan of the head that was done was negative for an acute disease. EEG was done as well EEG demonstrated disorganized background without clear delineation of state changes, it was consistent with cerebral dysfunction. There was no seizure noted the constellation of weakness, encephalopathy, abnormal EEG make me suspect a [employer] event? Herpes encephalitis, Guillain-Rizzo syndrome, she was empirically started on intravenous acyclovir and a lumbar puncture was done, demonstrated elevated CSF protein, 107 no white blood cells. She has chronically hypoal buminemia with secondary edema a lot this morning she developed low oxygen saturation chest was done that showed diffuse edema she was given Lasix unfortunately this led to low blood pressure, she now requires noninvasive positive pressure ventilation to maintain adequate oxygenation. Become of my concern for Guillain-Rizzo syndrome I felt patient needed to be transferred to tertiary care. where T\\there is neurology service, I called [facility] this morning and I spoke with neurologist, she is kind enough to accept her in transfer. 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 Physical Exam Vital Signs: Temp Pulse Resp BP Pulse Ox 97.9 F 111 H 31 H 79/49 L 100 11/12/20 12:00 11/12/20 12:00 11/12/20 12:10 11/12/20 12:00 11/12/20 12:00 Intake & Output 11/11/20 11/12/20 11/13/20 06:59 06:59 06:59 Intake Total 265 362 4431 Output Total 870 225 400 Balance -667 25 600 Weight 51.2 kg 52.3 kg 52.3 kg General appearance: PRESENT: other - Patient on BiPAP Respiratory exam: PRESENT: clear to auscultation rona Cardiovascular exam: PRESENT: +S1, +S2 GI/Abdominal exam: PRESENT: soft Neurological exam: PRESENT: altered Results Laboratory Results: 11/12/20 05:04 11/12/20 05:04 11/11/20 11/11/20 11/11/20 18:13 18:13 21:59 WBC 12.4 H RBC 4.39 Hgb 12.7 Hct 39.3 MCV 90 MCH 29.0 MCHC 32.4 RDW 17.1 H Plt Count 108 L Seg Neutrophils % Not Reportable Carbonic Acid HCO3/H2CO3 Ratio ABG pH ABG pCO2 ABG pO2 ABG HCO3 ABG O2 Saturation ABG Base Excess FiO2 Sodium 141.4 Potassium 5.2 H Chloride 115 H Carbon Dioxide 19 L Anion Gap 7 BUN 22 H Creatinine 1.19 Est GFR ( Amer) 58 L Glucose 87 Calcium 7.7 L Phosphorus Total Bilirubin 0.9 AST 84 H Alkaline Phosphatase 259 H Total Protein 4.9 L Albumin 2.0 L Fluid Tube Number 3 CSF Volume 3.8 CSF Appearance CLEAR CSF Color COLORLESS CSF WBC 0 CSF RBC 91 CSF Glucose CSF Total Protein 11/11/20 11/12/20 11/12/20 21:59 05:04 05:04 WBC 14.2 H RBC 4.52 Hgb 12.7 Hct 41.1 MCV 91 MCH 28.1 MCHC 30.9 L RDW 16.9 H Plt Count 151 Seg Neutrophils % Not Reportable Carbonic Acid HCO3/H2CO3 Ratio ABG pH ABG pCO2 ABG pO2 ABG HCO3 ABG O2 Saturation ABG Base Excess FiO2 Sodium 141.6 Potassium 5.4 H Chloride 116 H Carbon Dioxide 17 L Anion Gap 9 BUN 24 H Creatinine 0.95 Est GFR ( Amer) > 60 Glucose 84 Calcium 7.8 L Phosphorus 5.2 H Total Bilirubin 0.8 AST 102 H Alkaline Phosphatase 262 H Total Protein 4.6 L Albumin 1.9 L Fluid Tube Number CSF Volume CSF Appearance CSF Color CSF WBC CSF RBC CSF Glucose 75 H CSF Total Protein 107 H 11/12/20 05:20 WBC RBC Hgb Hct MCV MCH MCHC RDW Plt Count Seg Neutrophils % Carbonic Acid 1.31 HCO3/H2CO3 Ratio 14:1 ABG pH 7.25 L ABG pCO2 43.4 ABG pO2 55.6 L ABG HCO3 18.6 L ABG O2 Saturation 84.1 L ABG Base Excess -8.3 FiO2 15 Sodium Potassium Chloride Carbon Dioxide Anion Gap BUN Creatinine Est GFR ( Amer) Glucose Calcium Phosphorus Total Bilirubin AST Alkaline Phosphatase Total Protein Albumin Fluid Tube Number CSF Volume CSF Appearance CSF Color CSF WBC CSF RBC CSF Glucose CSF Total Protein Impressions: Head CT 11/09/20 00:00 IMPRESSION: No acute intracranial abnormality on noncontrast CT. EVIDENCE OF ACUTE STROKE: NO. Head MRI 11/11/20 00:00 IMPRESSION: NORMAL MRI OF THE BRAIN WITHOUT INTRAVENOUS GADOLINIUM CONTRAST. EVIDENCE OF ACUTE STROKE: NO. Lumbar Puncture 11/11/20 17:51 IMPRESSION: Lumbar puncture under fluoroscopy. No immediate complication. Chest X-Ray 11/12/20 06:37 IMPRESSION: Satisfactory central line placement. No pneumothorax.
[2020-11-12] MEDS ORDERED: GABAPENTIN 300 MG CAPSULE NG SCH (14:00)
[2020-11-12] MEDS ORDERED: HYDROCORTISONE SOD SUCCINATE INJ/PF 100 MG/2 ML SDV IV SCH ×2 (14:00)
[2020-11-12] MEDS: CALCIUM GLUCONATE 1 GM/NS 50 ML RTU IV SCH ×2 (14:03→15:13)
[2020-11-12 17:37] LABS: INTERNATIONAL RATION (INR) 1.42; PROTHROMBIN TIME 17.5 SEC (11.4-15.4)
[2020-11-12] MEDS ORDERED: BENZTROPINE MESYLATE 1 MG TABLET NG SCH (18:00)
[2020-11-12] MEDS ORDERED: TOPIRAMATE 25 MG TABLET NG SCH (18:00)
[2020-11-12 20:04] VITALS: BP 102/69
[2020-11-13] MEDS ORDERED: LEVOTHYROXINE SODIUM 0.088 MG TABLET NG SCH (06:00)
[2020-11-13] MEDS ORDERED: PANTOPRAZOLE SODIUM 40 MG PACKET.DR GT SCH (06:00)
[2020-11-13] MEDS ORDERED: SERTRALINE HCL 50 MG TABLET NG SCH (10:00)
[2020-11-13] MEDS ORDERED: AMITRIPTYLINE HCL 50 MG TABLET NG SCH (10:00)
[2020-11-15 07:58] LABS: HSV SOURCE CSF
[2020-11-17 14:37] LABS: ALPHA-1-GLOBULIN 1 5.8 % (1.1-6.6); ALPHA-2-GLOBULIN 7.3 % (3.0-12.6); CSF ALBUMIN 50.6 % (56.8-76.4); PRE ALBUMIN 4.5 % (2.2-7.1); TOTAL PROTEIN CSF PE 63.4 mg/dL (0.0-44.0)
[2020-11-17 14:58] LABS: CSF PE GAMMA GLOBULIN 16.1 % (3.0-13.0); PROT ELEC MSPIKE Not Observed % (Not Observ)
== END 2020-11-12 19:50 | disposition short-term general hospital (02) | DRG 640 ==
LOC: ER 14:28 → EH 18:24 → 3S 20:20 → 5TH 11-11 05:56
PROVIDERS: ADMIT Internal Medicine; ATTEND Internal Medicine
PROC: 009U3ZX Drainage of Spinal Canal, Percutaneous Approach, Diagnostic (ICD-10-PCS; 2020-11-11)
PROC: B01BZZZ Fluoroscopy of Spinal Cord (ICD-10-PCS; 2020-11-11)
PROC: 02HV33Z Insertion of Infusion Device into Superior Vena Cava, Percutaneous Approach (ICD-10-PCS; principal; 2020-11-12)
PROC: B548ZZA Ultrasonography of Superior Vena Cava, Guidance (ICD-10-PCS; 2020-11-12)
PROC: 5A09357 Assistance with Respiratory Ventilation, Less than 24 Consecutive Hours, Continuous Positive Airway Pressure (ICD-10-PCS; 2020-11-12)
DX: E87.6 Hypokalemia (principal); J96.01 Acute respiratory failure with hypoxia; G93.41 Metabolic encephalopathy; G61.0 Guillain-Barre syndrome; N39.0 Urinary tract infection, site not specified; L89.152 Pressure ulcer of sacral region, stage 2; E88.09 Other disorders of plasma-protein metabolism, not elsewhere classified; E78.5 Hyperlipidemia, unspecified; K21.9 Gastro-esophageal reflux disease without esophagitis; F31.9 Bipolar disorder, unspecified; E03.9 Hypothyroidism, unspecified; M19.90 Unspecified osteoarthritis, unspecified site; R47.02 Dysphasia; I95.9 Hypotension, unspecified; F17.200 Nicotine dependence, unspecified, uncomplicated; E86.1 Hypovolemia; B96.4 Proteus (mirabilis) (morganii) as the cause of diseases classified elsewhere; I87.2 Venous insufficiency (chronic) (peripheral); Z20.822 Contact with and (suspected) exposure to COVID-19; Z98.84 Bariatric surgery status; Z90.49 Acquired absence of other specified parts of digestive tract; Z83.3 Family history of diabetes mellitus; Z82.49 Family history of ischemic heart disease and other diseases of the circulatory system; Z88.8 Allergy status to other drugs, medicaments and biological substances; Z88.0 Allergy status to penicillin; Z88.2 Allergy status to sulfonamides; Z79.899 Other long term (current) drug therapy
CPT/HCPCS: 31500; 36415; 51701; 62328; 70450; 70551; 71045; 80053; 81001; 82533; 82803; 82945; 82962; 83605; 83735; 83916; 84100; 84157; 84166; 85025; 85610; 85730; 87040; 87070; 87086; 87088; 87186; 87205; 87210; 87252; 87529; 87804; 87880; 89050; 93005; 93010; 94660; 95819; 96360; 99285; J0610; 0241U; C9803; J0133; J0330; J1165; J1265; J1650; J1720; J1940; J3475; J3480; J3490; J7030; J7050; J7060; P9047